=== PATIENT | female | born 1980 | race Caucasian/White ===

== ENCOUNTER 2020-07-21 10:57 | Emergency (ER) | payer OTHER, SELFPAY ==
[2020-07-21 11:17] VITALS: BP 105/61; PULSE 70; RESP 16; TEMP 36.6; O2SAT 99; BMI 21.1
--- NOTE | 2020-07-21 11:51 | ED.MEDCLEAR ---
HPI - Medical Clearance General Chief complaint: Psychiatric Symptoms Stated complaint: MEDICAL CLEARENCE Time Seen by Provider: 07/21/20 11:31 Source: patient Mode of arrival: ambulatory Limitations: no limitations History of Present Illness HPI Narrative: 40-year-old female who is well known to our ED staff presented after she left [facility] residential program yesterday after argument with 1 of the staff, patient had stay in a motel last night in order for the patient to go back to the program she need medical clearance and [facility] in consult. Patient was interviewed by me denies any SI or HI or hallucination. Patient admitted to using heroin/cocaine last night, patient otherwise has no symptoms. Related Information Home Medications Medication Instructions Recorded Confirmed Lactobacillus acidophilus 1 cap PO DAILY 07/21/20 07/21/20 [Acidophilus] bupropion HCl 1 tab PO DAILY 07/21/20 07/21/20 cyanocobalamin (vitamin B-12) 1 tab PO DAILY 07/21/20 07/21/20 diazepam 1 tab PO TID PRN 07/21/20 07/21/20 diclofenac sodium 1 tab PO TID PRN 07/21/20 07/21/20 gabapentin 1 tab PO TID 07/21/20 07/21/20 lamotrigine 1 tab PO DAILY 07/21/20 07/21/20 omeprazole 1 cap PO DAILY 07/21/20 07/21/20 topiramate 1 tab PO DAILY PRN 07/21/20 07/21/20 zolpidem 1 tab PO BEDTIME PRN 07/21/20 07/21/20 Allergies Allergy/AdvReac Type Severity Reaction Status Date / Time azithromycin [AZITHROMYCIN] Allergy Unknown UNK Unverified 06/07/20 15:47 erythromycin base Allergy Unknown RASH Unverified 06/07/20 15:47 [ERYTHROMYCIN BASE] olanzapine [From ZYPREXA] Allergy Unknown PEDAL EDEMA Unverified 06/07/20 15:47 quetiapine [From SEROQUEL] Allergy Unknown THROAT Unverified 06/07/20 15:47 SWELLING risperidone [From RISPERDAL] Allergy Unknown TWITCHING Unverified 06/07/20 15:47 shellfish derived Allergy Unknown VOMITING Unverified 06/07/20 15:47 [SHELLFISH DERIVED] sulfamethoxazole Allergy Unknown ITCHING Unverified 06/07/20 15:47 [From BACTRIM] trimethoprim [From BACTRIM] Allergy Unknown ITCHING Unverified 06/07/20 15:47 arithromiosin Allergy Unknown Uncoded 04/22/19 00:00 gluten Allergy Unknown Uncoded 04/22/19 00:00 sea food Allergy Unknown Uncoded 04/22/19 00:00 Sulfacet-R Allergy Unknown Uncoded 04/22/19 00:00 SEAFOOD AdvReac Unknown VOMIT Uncoded 06/07/20 15:47 Review of Systems Review of Systems: All other systems are reviewed and are negative Constitutional: Reports as per HPI and Reports no additional constitutional complaints Eyes: Reports as per HPI and Reports no additional eye complaints Reports system reviewed and no additional complaints, except as documented Cardiovascular: Reports as per HPI and Reports no additional cardiovascular complaints Respiratory: Reports as per HPI and Reports no additional respiratory complaints Gastrointestinal: Reports as per HPI and Reports no additional gastrointestinal complaints Genitourinary: Reports no additional female genitourinary complaints Musculoskeletal: Reports no additional musculoskeletal complaints Skin/Breast: Reports system reviewed and no additional complaints, except as docu Psychiatric: Reports no additional psychiatric complaints Endocrine: Reports no additional endocrine complaints Hematologic/Lymphatic: Reports no additional hematologic/lymphatic complaints Allergic/Immunologic: Reports no additional allergic/immunologic complaints Reports system reviewed and no additional complaints, except as documented and Reports Abnormal speech present [facility] Social History Social History Alcohol intake: former Smoking Status: Current every day smoker Smoked in Last 30 Days: Yes Use of substances other than those prescribed or required for medical reasons: Yes Substance Use Type: Crack/Cocaine and Heroin Substance Use Frequency: Daily Last Used Substance: Days (ago) Any prior treatment program specific to substance use: Yes Advance Directives: No Advance Directives Information Provided: No Physical Exam Vital Signs: Vital Signs: Vital Signs Temp Pulse Resp BP Pulse Ox 07/21/20 11:17 97.9 F 70 16 105/61 99 Body Mass Index 21.1 vital signs have been reviewed as normal and appeared to be correct. Blood pressure normal. Heart rate normal. Respiration rate normal. Temperature normal. Oxygen saturation normal. Appearance: Alert. Oriented X3. No acute distress. Head: Normal external exam. Normocephalic. Atraumatic. No Kaur signs noted. No raccoon eyes noted Eyes: PERRLA. EOMI. Conjunctiva and sclera normal. Eyelids normal. ENT: EAC normal. TM's Normal. Pharynx normal. Uvula midline. Moist mucous membranes. No trismus noted. No drooling noted. No muffled voice noted. Neck: Normal inspection. Neck supple. FROM. No adenopathy. Thyroid Normal. No meningeal signs. No neck mass noted. CVS: Normal heart rate and rhythm. Heart sound normal. No murmurs noted. Pulses normal throughout. Respiratory: No respiratory distress. Painless inspiration. Breath sounds normal. No wheezes/rales/rhonchi noted. Chest nontender. No accessory muscle usage noted or decreased air movement noted. Abdomen: Soft and nontender. Bowel sounds normal in all 4 quadrants. No distention noted. No organomegaly noted. No visible injury noted. Back: No CVA tenderness. Full range of motion noted. Skin: Skin warm and dry. Normal skin color. Normal skin turgor. No rashes/lesions/lacerations noted. Extremities: No lower extremity edema. Extremities exhibit normal range of motion. Extremities nontender. Neuro: Oriented X 3. No motor deficit. No sensory deficit. Reflexes normal. MDM - Medical Clearance MDM Narrative Medical decision making narrative: assessment and plan. 40-year-old female who needed a medical clearance for [facility] residential program return, patient is medically cleared, U tox showed multiple substance abuse. Lab Data Attestation: I reviewed the patient's lab results. Labs: Lab Results 07/21/20 07/21/20 07/21/20 Range/Units 11:48 11:48 12:00 Urine Color YELLOW Urine Appearance CLEAR Urine pH 6.0 (5.0-8.0) Ur Specific [place] 1.010 (1.005-1.025) Urine Protein NEG (NEG-TRACE) MG/DL Urine Glucose (UA) NEG (NEG) MG/DL Urine Ketones 15 (NEG) MG/DL Urine Blood NEG (NEG) Urine Nitrite NEG (NEG) Ur Leukocyte Esterase NEG (NEG) Urine Opiates Screen POSITIVE H (Not Detect) Ur Barbiturates Screen Not Detected (Not Detect) Ur Phencyclidine Scrn POSITIVE H (Not Detect) Ur Amphetamines Screen Not Detected (Not Detect) U Benzodiazepines Scrn POSITIVE H (Not Detect) Urine Cocaine Screen POSITIVE H (Not Detect) U Marijuana (THC) Screen Not Detected (Not Detect) Coronavirus (PCR) NEGATIVE (Negative) Discharge Plan Discharge Prescriptions: No Action cyanocobalamin (vitamin B-12) 1,000 mcg tablet 1 tab PO DAILY RF: 0 gabapentin 800 mg tablet 1 tab PO TID RF: 0 omeprazole 20 mg capsule,delayed release(DR/EC) 1 cap PO DAILY RF: 0 diclofenac sodium 50 mg tablet,delayed release (DR/EC) 1 tab PO TID PRN (Reason: Pain) RF: 0 zolpidem 5 mg tablet 1 tab PO BEDTIME PRN (Reason: Insomnia) RF: 0 Lactobacillus acidophilus [Acidophilus] Capsule 1 cap PO DAILY RF: 0 topiramate 100 mg tablet 1 tab PO DAILY PRN (Reason: Insomnia) RF: 0 lamotrigine 100 mg tablet 1 tab PO DAILY RF: 0 diazepam 5 mg tablet 1 tab PO TID PRN (Reason: Anxiety) RF: 0 bupropion HCl 300 mg tablet extended release 24 hr 1 tab PO DAILY RF: 0
[2020-07-21 12:01] LABS: Glucose Urine UA NEG (NEG); Leukocyte Esterase Urine NEG (NEG); Nitrite Urine NEG (NEG); Urine Blood NEG (NEG); Urine Ketones 15 MG/DL (NEG); Urine Protein NEG (NEG-TRACE)
[2020-07-21 12:02] LABS: Appearance Urine CLEAR; Color Urine YELLOW
--- NOTE | 2020-07-21 12:11 | PC.NURSE ---
JEREMY faxed and called, verified with Diana
[2020-07-21 12:21] LABS: Amphetamine Screen Urine Not Detected (Not Detect); Barbiturates, Urine Not Detected (Not Detect); Benzodiazepines Screen Urine POSITIVE (Not Detect); Cannabinoid Screen Urine Not Detected (Not Detect); Cocaine Screen Urine POSITIVE (Not Detect); Opiate Screen Urine POSITIVE (Not Detect); Phencyclidine Screen Urine POSITIVE (Not Detect)
[2020-07-21 13:03] LABS: SARS COV2 PCR INHOUSE NEGATIVE (Negative)
--- NOTE | 2020-07-21 13:48 | PC.NURSE ---
Terri in to speak with PT. PT became agitated, yelling and swearing at [facility] clinician. Pt redirected. [facility] to send a different clinician.
== END 2020-07-21 16:15 | disposition home or self-care (01) ==
PROVIDERS: Emergency Provider Emergency Medicine
DX: Z02.2 Encounter for examination for admission to residential institution (principal); F17.200 Nicotine dependence, unspecified, uncomplicated; F11.90 Opioid use, unspecified, uncomplicated; F14.90 Cocaine use, unspecified, uncomplicated; Z79.899 Other long term (current) drug therapy; Z71.6 Tobacco abuse counseling; Z11.59 Encounter for screening for other viral diseases
CPT/HCPCS: 80307; 81003; 99285; U0003

== ENCOUNTER 2020-08-23 11:31 | Emergency (ER) | payer OTHER, SELFPAY ==
[2020-08-23 12:08] VITALS: BP 115/87; PULSE 71; RESP 18; TEMP 36.3; O2SAT 98; BMI 25.7
--- NOTE | 2020-08-23 12:15 | US_ITS ---
EXAMINATION: US UPPER EXTREMITY VENOUS, RIGHT CLINICAL INFORMATION: IV site infiltrated with induration distal forearm. COMPARISON: None. TECHNIQUE: Doppler spectral analysis and color flow Doppler imaging was performed of the right upper extremity. Compression and augmentation maneuvers were performed. FINDINGS: The cephalic vein is not identified. The remainder of the superficial and deep veins of the right upper extremity are identified and are compressible without abnormal filling defect and with normal Doppler response to augmentation and compression maneuvers. US/US venous duplex UE RT IMPRESSION: No evidence for acute right upper extremity deep vein thrombosis.
[2020-08-23 12:20] VITALS: BP 115/87; PULSE 71; RESP 18; TEMP 36.3; O2SAT 98
--- NOTE | 2020-08-23 12:28 | ED.PSYCH ---
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 Urine Glucose (UA) (NEG) MG/DL Urine Ketones (NEG) MG/DL Urine Blood (NEG) Urine Nitrite (NEG) Ur Leukocyte Esterase (NEG) Urine Opiates Screen POSITIVE H (Not Detect) Ur Barbiturates Screen Not Detected (Not Detect) Ur Phencyclidine Scrn POSITIVE H (Not Detect) Ur Amphetamines Screen Not Detected (Not Detect) U Benzodiazepines Scrn POSITIVE H (Not Detect) Urine Cocaine Screen POSITIVE H (Not Detect) U Marijuana (THC) Screen Not Detected (Not Detect) Ethyl Alcohol mg/dL <ALISON Garcia - Last Filed: 08/24/20 01:40> Lab Results 08/23/20 08/23/20 08/23/20 Range/Units 13:26 13:26 13:26 WBC 3.7 L (4.8-10.8) X10*3/uL RBC 3.92 L (4.20-5.50) X10*6/uL Hgb 12.0 (12.0-16.0) g/dl Hct 35.4 L (37-47) % MCV 90.3 (80-98) fL MCH 30.6 (27.0-33.0) pg MCHC 33.9 (31.0-35.0) g/dl RDW 12.9 (11.0-16.0) % Plt Count 176 (160-400) X10*3/uL MPV 9.3 L (9.4-12.3) fL Immature Gran % (Auto) 0.0 (0.0-0.4) % Neut % (Auto) 39.2 L (45-73) % Lymph % (Auto) 48.5 H (20-40) % [place] % (Auto) 8.2 (2-11) % Eos % (Auto) 3.6 (0-4) % Baso % (Auto) 0.5 (0-2) % Lymph # (Auto) 1.8 (1.2-4.9) X10*3/uL [place] # (Auto) 0.3 (0.1-1.2) X10*3/uL Eos # (Auto) 0.1 (0.0-0.4) X10*3/uL Baso # (Auto) 0.0 (0.0-0.2) X10*3/uL Abs Immat Gran (auto) 0.00 (0.00-0.03) X10*3/uL Absolute Neuts (auto) 1.4 L (2.0-8.3) X10*3/uL Absolute Nucleated RBC 0.000 (0.0-0.012) X10*3/uL Nucleated RBC % (auto) 0.0 (0.0-0.2) /100WBC PT 13.0 (10.8-13.0) SEC INR 1.1 (0.9-1.1) APTT 45.8 H (24.1-38.0) SEC Sodium (135-145) mmol/L Potassium (3.3-5.1) mmol/l Chloride (96-108) mmol/L Carbon Dioxide (22-29) mmol/L Anion Gap (12-20) BUN (9-16) mg/dL Creatinine (0.5-1.4) mg/dL Estim Creat Clear Calc Estimated GFR Random Glucose (60-115) mg/dL Lactic Acid (0.5-2.0) mmol/L Calcium (8.4-10.2) mg/dL Magnesium (1.6-2.6) mg/dL Total Bilirubin (0.0-1.0) mg/dL Direct Bilirubin (0.0-0.5) mg/dL AST (5-31) U/L ALT (0-31) U/L Alkaline Phosphatase (39-117) U/L Total Creatine Kinase (26-140) U/L B-Natriuretic Peptide (<100) pg/mL Total Protein (6.5-8.0) g/dL Albumin (3.5-5.0) g/dL Lipase 13 (8-78) U/L Urine Color Urine Appearance Urine pH (5.0-8.0) Ur Specific [place] (1.005-1.025) Urine Protein (NEG-TRACE) MG/DL Urine Glucose (UA) (NEG) MG/DL Urine Ketones (NEG) MG/DL Urine Blood (NEG) Urine Nitrite (NEG) Ur Leukocyte Esterase (NEG) Urine Opiates Screen (Not Detect) Ur Barbiturates Screen (Not Detect) Ur Phencyclidine Scrn (Not Detect) Ur Amphetamines Screen (Not Detect) U Benzodiazepines Scrn (Not Detect) Urine Cocaine Screen (Not Detect) U Marijuana (THC) Screen (Not Detect) Ethyl Alcohol mg/dL 08/23/20 08/23/20 08/23/20 Range/Units 13:26 13:26 13:27 WBC (4.8-10.8) X10*3/uL RBC (4.20-5.50) X10*6/uL Hgb (12.0-16.0) g/dl Hct (37-47) % MCV (80-98) fL MCH (27.0-33.0) pg MCHC (31.0-35.0) g/dl RDW (11.0-16.0) % Plt Count (160-400) X10*3/uL MPV (9.4-12.3) fL Immature Gran % (Auto) (0.0-0.4) % Neut % (Auto) (45-73) % Lymph % (Auto) (20-40) % [place] % (Auto) (2-11) % Eos % (Auto) (0-4) % Baso % (Auto) (0-2) % Lymph # (Auto) (1.2-4.9) X10*3/uL [place] # (Auto) (0.1-1.2) X10*3/uL Eos # (Auto) (0.0-0.4) X10*3/uL Baso # (Auto) (0.0-0.2) X10*3/uL Abs Immat Gran (auto) (0.00-0.03) X10*3/uL Absolute Neuts (auto) (2.0-8.3) X10*3/uL Absolute Nucleated RBC (0.0-0.012) X10*3/uL Nucleated RBC % (auto) (0.0-0.2) /100WBC PT (10.8-13.0) SEC INR (0.9-1.1) APTT (24.1-38.0) SEC Sodium 140 (135-145) mmol/L Potassium 3.2 L (3.3-5.1) mmol/l Chloride 101 (96-108) mmol/L Carbon Dioxide 31 H (22-29) mmol/L Anion Gap 11 L (12-20) BUN 8 L (9-16) mg/dL Creatinine 0.74 (0.5-1.4) mg/dL Estim Creat Clear Calc 93.8 Estimated GFR > 60 Random Glucose 114 (60-115) mg/dL Lactic Acid (0.5-2.0) mmol/L Calcium 8.8 (8.4-10.2) mg/dL Magnesium 2.1 (1.6-2.6) mg/dL Total Bilirubin 0.7 (0.0-1.0) mg/dL Direct Bilirubin 0.4 (0.0-0.5) mg/dL AST 50 H (5-31) U/L ALT 47 H (0-31) U/L Alkaline Phosphatase 102 (39-117) U/L Total Creatine Kinase 473 H (26-140) U/L B-Natriuretic Peptide 25 (<100) pg/mL Total Protein 6.9 (6.5-8.0) g/dL Albumin 4.1 (3.5-5.0) g/dL Lipase (8-78) U/L Urine Color Urine Appearance Urine pH (5.0-8.0) Ur Specific [place] (1.005-1.025) Urine Protein (NEG-TRACE) MG/DL Urine Glucose (UA) (NEG) MG/DL Urine Ketones (NEG) MG/DL Urine Blood (NEG) Urine Nitrite (NEG) Ur Leukocyte Esterase (NEG) Urine Opiates Screen (Not Detect) Ur Barbiturates Screen (Not Detect) Ur Phencyclidine Scrn (Not Detect) Ur Amphetamines Screen (Not Detect) U Benzodiazepines Scrn (Not Detect) Urine Cocaine Screen (Not Detect) U Marijuana (THC) Screen (Not Detect) Ethyl Alcohol mg/dL 08/23/20 08/23/20 08/23/20 Range/Units 13:27 13:30 Unknown WBC (4.8-10.8) X10*3/uL RBC (4.20-5.50) X10*6/uL Hgb (12.0-16.0) g/dl Hct (37-47) % MCV (80-98) fL MCH (27.0-33.0) pg MCHC (31.0-35.0) g/dl RDW (11.0-16.0) % Plt Count (160-400) X10*3/uL MPV (9.4-12.3) fL Immature Gran % (Auto) (0.0-0.4) % Neut % (Auto) (45-73) % Lymph % (Auto) (20-40) % [place] % (Auto) (2-11) % Eos % (Auto) (0-4) % Baso % (Auto) (0-2) % Lymph # (Auto) (1.2-4.9) X10*3/uL [place] # (Auto) (0.1-1.2) X10*3/uL Eos # (Auto) (0.0-0.4) X10*3/uL Baso # (Auto) (0.0-0.2) X10*3/uL Abs Immat Gran (auto) (0.00-0.03) X10*3/uL Absolute Neuts (auto) (2.0-8.3) X10*3/uL Absolute Nucleated RBC (0.0-0.012) X10*3/uL Nucleated RBC % (auto) (0.0-0.2) /100WBC PT (10.8-13.0) SEC INR (0.9-1.1) APTT (24.1-38.0) SEC Sodium (135-145) mmol/L Potassium (3.3-5.1) mmol/l Chloride (96-108) mmol/L Carbon Dioxide (22-29) mmol/L Anion Gap (12-20) BUN (9-16) mg/dL Creatinine (0.5-1.4) mg/dL Estim Creat Clear Calc Estimated GFR Random Glucose (60-115) mg/dL Lactic Acid 0.8 (0.5-2.0) mmol/L Calcium (8.4-10.2) mg/dL Magnesium (1.6-2.6) mg/dL Total Bilirubin (0.0-1.0) mg/dL Direct Bilirubin (0.0-0.5) mg/dL AST (5-31) U/L ALT (0-31) U/L Alkaline Phosphatase (39-117) U/L Total Creatine Kinase (26-140) U/L B-Natriuretic Peptide (<100) pg/mL Total Protein (6.5-8.0) g/dL Albumin (3.5-5.0) g/dL Lipase (8-78) U/L Urine Color YELLOW Urine Appearance CLEAR Urine pH 6.0 (5.0-8.0) Ur Specific [place] 1.015 (1.005-1.025) Urine Protein NEG (NEG-TRACE) MG/DL Urine Glucose (UA) NEG (NEG) MG/DL Urine Ketones NEG (NEG) MG/DL Urine Blood NEG (NEG) Urine Nitrite NEG (NEG) Ur Leukocyte Esterase NEG (NEG) Urine Opiates Screen (Not Detect) Ur Barbiturates Screen (Not Detect) Ur Phencyclidine Scrn (Not Detect) Ur Amphetamines Screen (Not Detect) U Benzodiazepines Scrn (Not Detect) Urine Cocaine Screen (Not Detect) U Marijuana (THC) Screen (Not Detect) Ethyl Alcohol < 10 mg/dL 08/23/20 Range/Units Unknown WBC (4.8-10.8) X10*3/uL RBC (4.20-5.50) X10*6/uL Hgb (12.0-16.0) g/dl Hct (37-47) % MCV (80-98) fL MCH (27.0-33.0) pg MCHC (31.0-35.0) g/dl RDW (11.0-16.0) % Plt Count (160-400) X10*3/uL MPV (9.4-12.3) fL Immature Gran % (Auto) (0.0-0.4) % Neut % (Auto) (45-73) % Lymph % (Auto) (20-40) % [place] % (Auto) (2-11) % Eos % (Auto) (0-4) % Baso % (Auto) (0-2) % Lymph # (Auto) (1.2-4.9) X10*3/uL [place] # (Auto) (0.1-1.2) X10*3/uL Eos # (Auto) (0.0-0.4) X10*3/uL Baso # (Auto) (0.0-0.2) X10*3/uL Abs Immat Gran (auto) (0.00-0.03) X10*3/uL Absolute Neuts (auto) (2.0-8.3) X10*3/uL Absolute Nucleated RBC (0.0-0.012) X10*3/uL Nucleated RBC % (auto) (0.0-0.2) /100WBC PT (10.8-13.0) SEC INR (0.9-1.1) APTT (24.1-38.0) SEC Sodium (135-145) mmol/L Potassium (3.3-5.1) mmol/l Chloride (96-108) mmol/L Carbon Dioxide (22-29) mmol/L Anion Gap (12-20) BUN (9-16) mg/dL Creatinine (0.5-1.4) mg/dL Estim Creat Clear Calc Estimated GFR Random Glucose (60-115) mg/dL Lactic Acid (0.5-2.0) mmol/L Calcium (8.4-10.2) mg/dL Magnesium (1.6-2.6) mg/dL Total Bilirubin (0.0-1.0) mg/dL Direct Bilirubin (0.0-0.5) mg/dL AST (5-31) U/L ALT (0-31) U/L Alkaline Phosphatase (39-117) U/L Total Creatine Kinase (26-140) U/L B-Natriuretic Peptide (<100) pg/mL Total Protein (6.5-8.0) g/dL Albumin (3.5-5.0) g/dL Lipase (8-78) U/L Urine Color Urine Appearance Urine pH (5.0-8.0) Ur Specific [place] (1.005-1.025) Urine Protein (NEG-TRACE) MG/DL Urine Glucose (UA) (NEG) MG/DL Urine Ketones (NEG) MG/DL Urine Blood (NEG) Urine Nitrite (NEG) Ur Leukocyte Esterase (NEG) Urine Opiates Screen POSITIVE H (Not Detect) Ur Barbiturates Screen Not Detected (Not Detect) Ur Phencyclidine Scrn POSITIVE H (Not Detect) Ur Amphetamines Screen Not Detected (Not Detect) U Benzodiazepines Scrn POSITIVE H (Not Detect) Urine Cocaine Screen POSITIVE H (Not Detect) U Marijuana (THC) Screen Not Detected (Not Detect) Ethyl Alcohol mg/dL <Tyler Sifuentes NP - Last Filed: 08/24/20 17:35> Lab Results 08/23/20 08/23/20 08/23/20 Range/Units 13:26 13:26 13:26 WBC 3.7 L (4.8-10.8) X10*3/uL RBC 3.92 L (4.20-5.50) X10*6/uL Hgb 12.0 (12.0-16.0) g/dl Hct 35.4 L (37-47) % MCV 90.3 (80-98) fL MCH 30.6 (27.0-33.0) pg MCHC 33.9 (31.0-35.0) g/dl RDW 12.9 (11.0-16.0) % Plt Count 176 (160-400) X10*3/uL MPV 9.3 L (9.4-12.3) fL Immature Gran % (Auto) 0.0 (0.0-0.4) % Neut % (Auto) 39.2 L (45-73) % Lymph % (Auto) 48.5 H (20-40) % [place] % (Auto) 8.2 (2-11) % Eos % (Auto) 3.6 (0-4) % Baso % (Auto) 0.5 (0-2) % Lymph # (Auto) 1.8 (1.2-4.9) X10*3/uL [place] # (Auto) 0.3 (0.1-1.2) X10*3/uL Eos # (Auto) 0.1 (0.0-0.4) X10*3/uL Baso # (Auto) 0.0 (0.0-0.2) X10*3/uL Abs Immat Gran (auto) 0.00 (0.00-0.03) X10*3/uL Absolute Neuts (auto) 1.4 L (2.0-8.3) X10*3/uL Absolute Nucleated RBC 0.000 (0.0-0.012) X10*3/uL Nucleated RBC % (auto) 0.0 (0.0-0.2) /100WBC PT 13.0 (10.8-13.0) SEC INR 1.1 (0.9-1.1) APTT 45.8 H (24.1-38.0) SEC Sodium (135-145) mmol/L Potassium (3.3-5.1) mmol/l Chloride (96-108) mmol/L Carbon Dioxide (22-29) mmol/L Anion Gap (12-20) BUN (9-16) mg/dL Creatinine (0.5-1.4) mg/dL Estim Creat Clear Calc Estimated GFR Random Glucose (60-115) mg/dL Lactic Acid (0.5-2.0) mmol/L Calcium (8.4-10.2) mg/dL Magnesium (1.6-2.6) mg/dL Total Bilirubin (0.0-1.0) mg/dL Direct Bilirubin (0.0-0.5) mg/dL AST (5-31) U/L ALT (0-31) U/L Alkaline Phosphatase (39-117) U/L Total Creatine Kinase (26-140) U/L B-Natriuretic Peptide (<100) pg/mL Total Protein (6.5-8.0) g/dL Albumin (3.5-5.0) g/dL Lipase 13 (8-78) U/L Urine Color Urine Appearance Urine pH (5.0-8.0) Ur Specific [place] (1.005-1.025) Urine Protein (NEG-TRACE) MG/DL Urine Glucose (UA) (NEG) MG/DL Urine Ketones (NEG) MG/DL Urine Blood (NEG) Urine Nitrite (NEG) Ur Leukocyte Esterase (NEG) Urine Opiates Screen (Not Detect) Ur Barbiturates Screen (Not Detect) Ur Phencyclidine Scrn (Not Detect) Ur Amphetamines Screen (Not Detect) U Benzodiazepines Scrn (Not Detect) Urine Cocaine Screen (Not Detect) U Marijuana (THC) Screen (Not Detect) Ethyl Alcohol mg/dL 08/23/20 08/23/20 08/23/20 Range/Units 13:26 13:26 13:27 WBC (4.8-10.8) X10*3/uL RBC (4.20-5.50) X10*6/uL Hgb (12.0-16.0) g/dl Hct (37-47) % MCV (80-98) fL MCH (27.0-33.0) pg MCHC (31.0-35.0) g/dl RDW (11.0-16.0) % Plt Count (160-400) X10*3/uL MPV (9.4-12.3) fL Immature Gran % (Auto) (0.0-0.4) % Neut % (Auto) (45-73) % Lymph % (Auto) (20-40) % [place] % (Auto) (2-11) % Eos % (Auto) (0-4) % Baso % (Auto) (0-2) % Lymph # (Auto) (1.2-4.9) X10*3/uL [place] # (Auto) (0.1-1.2) X10*3/uL Eos # (Auto) (0.0-0.4) X10*3/uL Baso # (Auto) (0.0-0.2) X10*3/uL Abs Immat Gran (auto) (0.00-0.03) X10*3/uL Absolute Neuts (auto) (2.0-8.3) X10*3/uL Absolute Nucleated RBC (0.0-0.012) X10*3/uL Nucleated RBC % (auto) (0.0-0.2) /100WBC PT (10.8-13.0) SEC INR (0.9-1.1) APTT (24.1-38.0) SEC Sodium 140 (135-145) mmol/L Potassium 3.2 L (3.3-5.1) mmol/l Chloride 101 (96-108) mmol/L Carbon Dioxide 31 H (22-29) mmol/L Anion Gap 11 L (12-20) BUN 8 L (9-16) mg/dL Creatinine 0.74 (0.5-1.4) mg/dL Estim Creat Clear Calc 93.8 Estimated GFR > 60 Random Glucose 114 (60-115) mg/dL Lactic Acid (0.5-2.0) mmol/L Calcium 8.8 (8.4-10.2) mg/dL Magnesium 2.1 (1.6-2.6) mg/dL Total Bilirubin 0.7 (0.0-1.0) mg/dL Direct Bilirubin 0.4 (0.0-0.5) mg/dL AST 50 H (5-31) U/L ALT 47 H (0-31) U/L Alkaline Phosphatase 102 (39-117) U/L Total Creatine Kinase 473 H (26-140) U/L B-Natriuretic Peptide 25 (<100) pg/mL Total Protein 6.9 (6.5-8.0) g/dL Albumin 4.1 (3.5-5.0) g/dL Lipase (8-78) U/L Urine Color Urine Appearance Urine pH (5.0-8.0) Ur Specific [place] (1.005-1.025) Urine Protein (NEG-TRACE) MG/DL Urine Glucose (UA) (NEG) MG/DL Urine Ketones (NEG) MG/DL Urine Blood (NEG) Urine Nitrite (NEG) Ur Leukocyte Esterase (NEG) Urine Opiates Screen (Not Detect) Ur Barbiturates Screen (Not Detect) Ur Phencyclidine Scrn (Not Detect) Ur Amphetamines Screen (Not Detect) U Benzodiazepines Scrn (Not Detect) Urine Cocaine Screen (Not Detect) U Marijuana (THC) Screen (Not Detect) Ethyl Alcohol mg/dL 08/23/20 08/23/20 08/23/20 Range/Units 13:27 13:30 Unknown WBC (4.8-10.8) X10*3/uL RBC (4.20-5.50) X10*6/uL Hgb (12.0-16.0) g/dl Hct (37-47) % MCV (80-98) fL MCH (27.0-33.0) pg MCHC (31.0-35.0) g/dl RDW (11.0-16.0) % Plt Count (160-400) X10*3/uL MPV (9.4-12.3) fL Immature Gran % (Auto) (0.0-0.4) % Neut % (Auto) (45-73) % Lymph % (Auto) (20-40) % [place] % (Auto) (2-11) % Eos % (Auto) (0-4) % Baso % (Auto) (0-2) % Lymph # (Auto) (1.2-4.9) X10*3/uL [place] # (Auto) (0.1-1.2) X10*3/uL Eos # (Auto) (0.0-0.4) X10*3/uL Baso # (Auto) (0.0-0.2) X10*3/uL Abs Immat Gran (auto) (0.00-0.03) X10*3/uL Absolute Neuts (auto) (2.0-8.3) X10*3/uL Absolute Nucleated RBC (0.0-0.012) X10*3/uL Nucleated RBC % (auto) (0.0-0.2) /100WBC PT (10.8-13.0) SEC INR (0.9-1.1) APTT (24.1-38.0) SEC Sodium (135-145) mmol/L Potassium (3.3-5.1) mmol/l Chloride (96-108) mmol/L Carbon Dioxide (22-29) mmol/L Anion Gap (12-20) BUN (9-16) mg/dL Creatinine (0.5-1.4) mg/dL Estim Creat Clear Calc Estimated GFR Random Glucose (60-115) mg/dL Lactic Acid 0.8 (0.5-2.0) mmol/L Calcium (8.4-10.2) mg/dL Magnesium (1.6-2.6) mg/dL Total Bilirubin (0.0-1.0) mg/dL Direct Bilirubin (0.0-0.5) mg/dL AST (5-31) U/L ALT (0-31) U/L Alkaline Phosphatase (39-117) U/L Total Creatine Kinase (26-140) U/L B-Natriuretic Peptide (<100) pg/mL Total Protein (6.5-8.0) g/dL Albumin (3.5-5.0) g/dL Lipase (8-78) U/L Urine Color YELLOW Urine Appearance CLEAR Urine pH 6.0 (5.0-8.0) Ur Specific [place] 1.015 (1.005-1.025) Urine Protein NEG (NEG-TRACE) MG/DL Urine Glucose (UA) NEG (NEG) MG/DL Urine Ketones NEG (NEG) MG/DL Urine Blood NEG (NEG) Urine Nitrite NEG (NEG) Ur Leukocyte Esterase NEG (NEG) Urine Opiates Screen (Not Detect) Ur Barbiturates Screen (Not Detect) Ur Phencyclidine Scrn (Not Detect) Ur Amphetamines Screen (Not Detect) U Benzodiazepines Scrn (Not Detect) Urine Cocaine Screen (Not Detect) U Marijuana (THC) Screen (Not Detect) Ethyl Alcohol < 10 mg/dL 08/23/20 Range/Units Unknown WBC (4.8-10.8) X10*3/uL RBC (4.20-5.50) X10*6/uL Hgb (12.0-16.0) g/dl Hct (37-47) % MCV (80-98) fL MCH (27.0-33.0) pg MCHC (31.0-35.0) g/dl RDW (11.0-16.0) % Plt Count (160-400) X10*3/uL MPV (9.4-12.3) fL Immature Gran % (Auto) (0.0-0.4) % Neut % (Auto) (45-73) % Lymph % (Auto) (20-40) % [place] % (Auto) (2-11) % Eos % (Auto) (0-4) % Baso % (Auto) (0-2) % Lymph # (Auto) (1.2-4.9) X10*3/uL [place] # (Auto) (0.1-1.2) X10*3/uL Eos # (Auto) (0.0-0.4) X10*3/uL Baso # (Auto) (0.0-0.2) X10*3/uL Abs Immat Gran (auto) (0.00-0.03) X10*3/uL Absolute Neuts (auto) (2.0-8.3) X10*3/uL Absolute Nucleated RBC (0.0-0.012) X10*3/uL Nucleated RBC % (auto) (0.0-0.2) /100WBC PT (10.8-13.0) SEC INR (0.9-1.1) APTT (24.1-38.0) SEC Sodium (135-145) mmol/L Potassium (3.3-5.1) mmol/l Chloride (96-108) mmol/L Carbon Dioxide (22-29) mmol/L Anion Gap (12-20) BUN (9-16) mg/dL Creatinine (0.5-1.4) mg/dL Estim Creat Clear Calc Estimated GFR Random Glucose (60-115) mg/dL Lactic Acid (0.5-2.0) mmol/L Calcium (8.4-10.2) mg/dL Magnesium (1.6-2.6) mg/dL Total Bilirubin (0.0-1.0) mg/dL Direct Bilirubin (0.0-0.5) mg/dL AST (5-31) U/L ALT (0-31) U/L Alkaline Phosphatase (39-117) U/L Total Creatine Kinase (26-140) U/L B-Natriuretic Peptide (<100) pg/mL Total Protein (6.5-8.0) g/dL Albumin (3.5-5.0) g/dL Lipase (8-78) U/L Urine Color Urine Appearance Urine pH (5.0-8.0) Ur Specific [place] (1.005-1.025) Urine Protein (NEG-TRACE) MG/DL Urine Glucose (UA) (NEG) MG/DL Urine Ketones (NEG) MG/DL Urine Blood (NEG) Urine Nitrite (NEG) Ur Leukocyte Esterase (NEG) Urine Opiates Screen POSITIVE H (Not Detect) Ur Barbiturates Screen Not Detected (Not Detect) Ur Phencyclidine Scrn POSITIVE H (Not Detect) Ur Amphetamines Screen Not Detected (Not Detect) U Benzodiazepines Scrn POSITIVE H (Not Detect) Urine Cocaine Screen POSITIVE H (Not Detect) U Marijuana (THC) Screen Not Detected (Not Detect) Ethyl Alcohol mg/dL <Tulio Silverman MD - Last Filed: 09/14/20 09:42> Discharge Plan Discharge Clinical Impression: Substance abuse, Abscess, Depression <ALISON Barnes - Last Filed: 08/24/20 09:59> Patient Disposition: Home, Self-Care <ALISON Barnes - Last Filed: 08/24/20 09:59> Instructions: Depression (ED), Abscess (ED) <ALISON Barnes - Last Filed: 08/24/20 09:59> Additional Instructions: take antibiotic as advised Follow up with detox at [facility] medically cleared <ALISON Barnes - Last Filed: 08/24/20 09:59> Prescriptions: New doxycycline hyclate 100 mg capsule 100 mg PO BID Qty: 20 RF: 0 cephalexin [Keflex] 500 mg capsule 500 mg PO QID 10 Days Qty: 40 RF: 0 No Action cyanocobalamin (vitamin B-12) 1,000 mcg tablet 1 tab PO DAILY RF: 0 gabapentin 800 mg tablet 1 tab PO TID RF: 0 omeprazole 20 mg capsule,delayed release(DR/EC) 1 cap PO DAILY RF: 0 Lactobacillus acidophilus [Acidophilus] Capsule 1 cap PO DAILY RF: 0 topiramate 100 mg tablet 1 tab PO DAILY PRN (Reason: Insomnia) RF: 0 lamotrigine 100 mg tablet 1 tab PO DAILY RF: 0 trazodone 50 mg tablet 1 tab PO BEDTIME RF: 0 divalproex 500 mg tablet extended release 24 hr 500 mg PO TID RF: 0 albuterol sulfate 90 mcg/actuation HFA aerosol inhaler 1 - 2 puff PO Q4H PRN (Reason: wheezing) RF: 0 clonazepam 1 mg tablet 1 tab PO BID RF: 0 ferrous sulfate 325 mg (65 mg iron) tablet 1 tab PO BID RF: 0 buspirone 10 mg tablet 10 mg PO TID PRN (Reason: Anxiety) RF: 0 nicotine 7 mg/24 hr patch 24 hour 1 patch transdermal DAILY RF: 0 propranolol 20 mg tablet 1 tab PO TID PRN (Reason: Anxiety) RF: 0 <ALISON Barnes - Last Filed: 08/24/20 09:59> Interventions: ED Discharge Assessment Last Done: 08/25/20 07:38 <ALISON Barnes - Last Filed: 08/24/20 09:59> Discharge Date/Time: 08/25/20 07:43 <ALISON Barnes - Last Filed: 08/24/20 09:59>
--- NOTE | 2020-08-23 12:31 | PC.NURSE ---
[facility] [place] worker [facility] [phone]
--- NOTE | 2020-08-23 12:32 | PC.NURSE ---
Report given to Cheikh RN, pt to move to main ED
[2020-08-23 13:34] LABS: MANUAL DIFF FLAG NO
[2020-08-23 13:35] LABS: Basophils Percent Auto 0.5 % (0-2); Eosinophils Absolute Auto 0.1 X10*3/uL (0.0-0.4); Eosinophils Percent Auto 3.6 % (0-4); Hematocrit 35.4 % (37-47); Lymphocytes Absolute Auto 1.8 X10*3/uL (1.2-4.9); Lymphocytes Percent Auto 48.5 % (20-40); Mean Corpuscular HGB Conc 33.9 g/dl (31.0-35.0); Mean Corpuscular Hemoglobin 30.6 pg (27.0-33.0); Mean Corpuscular Volume 90.3 fL (80-98); Mean Platelet Volume 9.3 fL (9.4-12.3); Monocytes Absolute Auto 0.3 X10*3/uL (0.1-1.2); Monocytes Percent Auto 8.2 % (2-11); Neutrophils Absolute Auto 1.4 X10*3/uL (2.0-8.3); Neutrophils Percent Auto 39.2 % (45-73); Platelet Count 176 X10*3/uL (160-400); Red Blood Count 3.92 X10*6/uL (4.20-5.50); Red Cell Distribution Width 12.9 % (11.0-16.0); White Blood Count 3.7 X10*3/uL (4.8-10.8)
[2020-08-23 13:39] LABS: Glucose Urine UA NEG (NEG); Leukocyte Esterase Urine NEG (NEG); Nitrite Urine NEG (NEG); Specific Gravity - Urine 1.015 (1.005-1.025); Urine Blood NEG (NEG); Urine Ketones NEG (NEG); Urine Protein NEG (NEG-TRACE)
[2020-08-23 13:41] LABS: Appearance Urine CLEAR; Color Urine YELLOW
[2020-08-23 13:43] LABS: INTERNATIONAL NORM RATIO 1.1 (0.9-1.1)
[2020-08-23 13:46] LABS: Partial Thromboplastin Time 45.8 SEC (24.1-38.0)
[2020-08-23 13:53] LABS: Lactic Acid 0.8 mmol/L (0.5-2.0)
[2020-08-23 13:54] LABS: Ethanol < 10 mg/dL
[2020-08-23 13:58] VITALS: BP 96/61; PULSE 62; RESP 16; TEMP 36.6; O2SAT 96
[2020-08-23 14:00] LABS: Alanine Aminotransferase 47 U/L (0-31); Albumin Level 4.1 g/dL (3.5-5.0); Alkaline Phosphatase 102 U/L (39-117); Anion Gap 11 (12-20); Aspartate Amino Transferase 50 U/L (5-31); Bilirubin Direct 0.4 mg/dL (0.0-0.5); Bilirubin Total 0.7 mg/dL (0.0-1.0); Blood Urea Nitrogen 8 mg/dL (9-16); Calcium 8.8 mg/dL (8.4-10.2); Carbon Dioxide 31 mmol/L (22-29); Chloride 101 mmol/L (96-108); Creatinine Clr Calc Pharmacy 93.8; Estimated Glomerular Filt Rate > 60; Glucose Random 114 mg/dL (60-115); Magnesium 2.1 mg/dL (1.6-2.6); Potassium 3.2 mmol/l (3.3-5.1); Sodium 140 mmol/L (135-145); Total Protein 6.9 g/dL (6.5-8.0)
[2020-08-23 14:00] LABS: B Type Natriuretic Peptide 25 pg/mL (<100)
[2020-08-23 14:02] LABS: Lipase 13 U/L (8-78)
[2020-08-23 14:39] LABS: Amphetamine Screen Urine Not Detected (Not Detect); Barbiturates, Urine Not Detected (Not Detect); Benzodiazepines Screen Urine POSITIVE (Not Detect); Cannabinoid Screen Urine Not Detected (Not Detect); Cocaine Screen Urine POSITIVE (Not Detect); Opiate Screen Urine POSITIVE (Not Detect); Phencyclidine Screen Urine POSITIVE (Not Detect)
[2020-08-23 14:46] VITALS: BP 106/60; PULSE 58; RESP 16; O2SAT 99
[2020-08-23] MEDS: 0.9 % Sodium Chloride 1,000 ML 999 ML IVCONT ×2 (16:50)
[2020-08-23 18:44] VITALS: BP 106/61; PULSE 58; RESP 15; TEMP 36.6; O2SAT 96
[2020-08-23 20:52] VITALS: BP 112/65; PULSE 60; RESP 16; O2SAT 96
[2020-08-24] MEDS: Potassium Chloride Packet 20 MEQ PACKET 40 MEQ PO (02:39)
[2020-08-24 06:43] VITALS: BP 101/50; PULSE 73; RESP 18; TEMP 37.1; O2SAT 95
--- NOTE | 2020-08-24 07:15 | PC.NURSE ---
pt is sleeping resp even/unlabored.
[2020-08-24 08:00] VITALS: RESP 16
--- NOTE | 2020-08-24 08:04 | PC.NURSE ---
geoff philip) at bedside, pt aware of plan of care.
[2020-08-24 10:00] VITALS: BP 101/51; PULSE 66; RESP 18; TEMP 36.8; O2SAT 95
--- NOTE | 2020-08-24 10:00 | PC.NURSE ---
pt refused breakfast, sleeping. resp even and unlabored.
--- NOTE | 2020-08-24 10:54 | PC.NURSE ---
pt is refusing to meet with n stating that she is tired and falls back to sleep.
--- NOTE | 2020-08-24 11:15 | PC.NURSE ---
multi attempts made by geoff (enid) and bryanna (care team) to get pt up so that she can have a conversation with [facility] and pt has refused and falls back to sleep.
--- NOTE | 2020-08-24 13:25 | PC.NURSE ---
multi request to view pt's abscess met without any success. pt returned to sleep.
[2020-08-24 13:26] VITALS: BP 120/71; PULSE 65; RESP 18; TEMP 37.1; O2SAT 97
[2020-08-24 14:00] VITALS: RESP 16
--- NOTE | 2020-08-24 14:02 | PC.NURSE ---
this rn is unable to do the columbia scale at this time pt is sleeping and when woken up pt refused to answer any questions.
--- NOTE | 2020-08-24 14:10 | PC.NURSE ---
kodi marcy ([phone], [facility], pt's social media editor) called [facility]. ms. vidal states that pt is enrolled in an outreach program and states that pt had spoken to her yesterday and was requesting detox).
--- NOTE | 2020-08-24 14:14 | PC.NURSE ---
pt is eating lunch.
--- NOTE | 2020-08-24 15:18 | PC.NURSE ---
Report received. Pt sleeping. No signs of distress. Respirations even and non-labored.
--- NOTE | 2020-08-24 15:58 | PC.NURSE ---
[facility] at bedside
--- NOTE | 2020-08-24 20:25 | PC.NURSE ---
Patient in bed appears sleeping, no distress observed/reported, will continue to monitor.
--- NOTE | 2020-08-25 01:36 | PC.NURSE ---
Patient compliant with scheduled keflex PO medication
[2020-08-25] MEDS: cephALEXin 500 MG CAPSULE PO (01:43)
[2020-08-25 06:52] VITALS: PULSE 69; RESP 17; TEMP 36.5; O2SAT 98
--- NOTE | 2020-08-25 07:25 | PC.NURSE ---
Report recived from APOLONIA Reyes. Pt awakened, reminded that she is being discharged to [facility] shortly.
--- NOTE | 2020-08-25 07:41 | PC.NURSE ---
Pt discharged as planned to waiting room to await taxi to [place]- arranged by Terri. Pt in agreement w/ plan no concerns reported.
== END 2020-08-25 07:43 | disposition home or self-care (01) ==
PROVIDERS: Physician Assistant; Emergency Provider Student in an Organized Health Care Education/Training Program
DX: R45.851 Suicidal ideations (principal); F11.10 Opioid abuse, uncomplicated; F14.10 Cocaine abuse, uncomplicated; F17.200 Nicotine dependence, unspecified, uncomplicated; F10.10 Alcohol abuse, uncomplicated; Y90.0 Blood alcohol level of less than 20 mg/100 ml; L02.413 Cutaneous abscess of right upper limb
CPT/HCPCS: 36415; 80048; 80076; 80307; 80320; 81003; 82550; 83605; 83690; 83735; 83880; 85025; 85610; 85730; 87040; 93971; 96360; 99285

== ENCOUNTER 2020-08-29 08:10 | Emergency (ER) | payer OTHER, SELFPAY ==
[2020-08-29] VITALS (7 sets, daily range): BP systolic 89–106; BP diastolic 50–58; PULSE 53–67; RESP 14–18; TEMP 36.3–36.8; O2SAT 98–100; BMI 33.0
--- NOTE | 2020-08-29 08:29 | CT_ITS ---
EXAMINATION: CT HEAD WITHOUT CONTRAST CLINICAL INFORMATION: Fall. Question seizure. COMPARISON: Previous exams most recent head CT April 2019 and brain MRI December 2018 TECHNIQUE: Contiguous axial imaging was performed from the skull base to vertex without intravenous administration of contrast. This CT examination was performed using dose optimization techniques as appropriate, variously including the following: *Automated exposure control *Adjustment of mA and/or kV according to patient size (this includes techniques or standardized protocols for targeted exams where dose is matched to indication/reason for exam; i.e. extremities or head) *Use of iterative reconstruction technique DLP: 653 mGy-cm FINDINGS: There is no evidence of an extra-axial collection. There is no evidence of intra-axial or extra-axial hemorrhage. The ventricles and extra-axial CSF spaces are appropriate. Caballero-white matter differentiation is normal. There is a low-attenuation extra-axial mass in the interpeduncular cistern anterior to the midbrain. This measures approximately 1 x 1.1 cm. This is unchanged from previous exams, and has negative Hounsfield units suggestive of fat. Differential would include lipoma and dermoid. No other mass, mass effect or infarct is seen. Review at bone windows is unremarkable. Visualized paranasal sinuses, mastoid air cells and middle ears are clear. CT/CT head/brain wo con IMPRESSION: No acute findings. 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
--- NOTE | 2020-08-29 08:32 | ECG_ITS ---
Test Reason : WITHDRAWL Blood Pressure : / mmHG Vent. Rate : 058 BPM Atrial Rate : 058 BPM P-R Int : 186 ms QRS Dur : 090 ms QT Int : 500 ms P-R-T Axes : 063 046 050 degrees QTc Int : 490 ms Sinus bradycardia Nonspecific T wave abnormality Prolonged QT Abnormal ECG When compared to the previous EKG of march 22, 2020, anterior T inversions are new (but seen in 2011) Referred By: Annelise Guardado Electronically Signed By:LAMBERTO CARLIN
--- NOTE | 2020-08-29 08:33 | ED.GENADULT ---
HPI - General Adult General Chief complaint: General Medical Stated complaint: withdraw like symptoms Time Seen by Provider: 08/29/20 08:21 Source: patient and EMS Mode of arrival: EMS History of Present Illness HPI narrative: 40-year-old female with a past medical history of substance abuse, PTSD, rhabdo with JOSEPHINE, CVA, colitis, hepatitis-C, BIBA for withdrawl sx including nausea, chills, myalgias and abdominal cramping. Patient admits she was recently seen in this ED, sent to [facility] detox but reports they were not expecting her, then went to [facility] and was discharged home. States she has been unable to get her Methadone, and hasnt used drugs or ETOH x couple days. Reports questionable syncope versus seizure this morning, states was found on ground by a couple of guys, unknown head trauma. Reports vague SI. Pt is interested in detox. Denies HI, WANG, V/D/C. Related Data Home Medications Medication Instructions Recorded Confirmed Lactobacillus acidophilus 1 cap PO DAILY 07/21/20 08/23/20 [Acidophilus] cyanocobalamin (vitamin B-12) 1 tab PO DAILY 07/21/20 08/23/20 gabapentin 1 tab PO TID 07/21/20 08/23/20 lamotrigine 1 tab PO DAILY 07/21/20 08/23/20 omeprazole 1 cap PO DAILY 07/21/20 08/23/20 topiramate 1 tab PO DAILY PRN 07/21/20 08/23/20 albuterol sulfate 1 - 2 puff PO Q4H PRN 08/23/20 08/23/20 buspirone 10 mg PO TID PRN 08/23/20 08/23/20 clonazepam 1 tab PO BID 08/23/20 08/23/20 divalproex 500 mg PO TID 08/23/20 08/23/20 ferrous sulfate 1 tab PO BID 08/23/20 08/23/20 nicotine 1 patch TRANSDERMAL DAILY 08/23/20 08/23/20 propranolol 1 tab PO TID PRN 08/23/20 08/23/20 trazodone 1 tab PO BEDTIME 08/23/20 08/23/20 Previous Rx's Medication Instructions Recorded cephalexin [Keflex] 500 mg PO QID 10 Days #40 cap 08/25/20 doxycycline hyclate 100 mg PO BID #20 cap 08/25/20 Allergies Allergy/AdvReac Type Severity Reaction Status Date / Time azithromycin [AZITHROMYCIN] Allergy Unknown UNK Verified 08/24/20 16:06 erythromycin base Allergy Unknown RASH Verified 08/24/20 16:06 [ERYTHROMYCIN BASE] olanzapine [From ZYPREXA] Allergy Unknown PEDAL EDEMA Verified 08/24/20 16:06 quetiapine [From SEROQUEL] Allergy Unknown THROAT Verified 08/24/20 16:06 SWELLING risperidone [From RISPERDAL] Allergy Unknown TWITCHING Verified 08/24/20 16:06 shellfish derived Allergy Unknown VOMITING Verified 08/24/20 16:06 [SHELLFISH DERIVED] sulfamethoxazole Allergy Unknown ITCHING Verified 08/24/20 16:06 [From BACTRIM] trimethoprim [From BACTRIM] Allergy Unknown ITCHING Verified 08/24/20 16:06 arithromiosin Allergy Unknown Unknown Uncoded 08/24/20 16:06 gluten Allergy Unknown Unknown Uncoded 08/24/20 16:06 sea food Allergy Unknown Unknown Uncoded 08/24/20 16:06 Sulfacet-R Allergy Unknown Unknown Uncoded 08/24/20 16:06 SEAFOOD AdvReac Unknown VOMIT Uncoded 06/07/20 15:47 Review of Systems Review of Systems: Constitutional: No Weight loss, No Fever, + Chills, No Night Sweats, + Fatigue, No Malaise Cardiovascular: No Chest Pain, No SOB, No Dyspnea on Exertion, No Orthopnea, No Edema, No Palpitations Respiratory: No Cough, No Sputum, No Wheezing, No Dyspnea Gastrointestinal: +Nausea, No Vomiting, No Diarrhea, No Constipation, +Abdominal pain Genitourinary: No irregular bleeding, No Dysuria, No Urinary Frequency, No Hematuria Musculoskeletal: No joint pain, + Myalgias, No Joint Swelling Skin: No Skin Lesions, No rash Psych: No Anxiety/Panic, + Depression, +SI, No HI/AH/VH Yes all other systems are reviewed and are negative [facility] Past Medical History Attestation statement: The following information was validated with the patient. Social History Social History Alcohol intake: former Smoking Status: Current every day smoker Substance Use Type: Crack/Cocaine and Heroin Advance Directives: No Advance Directives Information Provided: No Physical Exam Vital Signs: Vital Signs: Last Vital Signs Temp 98.0 F 08/29/20 15:26 Pulse 67 08/29/20 16:48 Resp 16 08/29/20 16:48 BP 91/54 L 08/29/20 16:48 Pulse Ox 98 08/29/20 16:48 Body Mass Index 33.0 Const: Other: appears under the influence General: cooperative Orientation/consciousness: patient oriented x3 Limitations: no limitations HENMT: Other: atraumatic Head: Yes normal to inspection Ears: hearing grossly normal bilaterally General nose exam: Normal external nose present Face and sinus: Yes normal facial exam Eyes: General: appearance normal, both eyes and all related structures Pupils: Equal, round and reactive pupils present EOM: EOMs intact bilaterally Neck: Neck: Yes normal visual inspection and Yes no meningeal signs Resp: Effort & Inspection: normal respiratory effort Auscultation: clear to auscultation bilaterally Cardio: Rate: regular rate Heart sounds: S1 normal heart sound present and S2 normal heart sound present GI: Inspection: Yes normal to inspection Palpation (GI): Soft to palpation, nontender, no guarding and not rigid Skin: Rashes: no rashes Wounds: no wounds Neuro: General: patient oriented x3, tone normal, moves all extremities, no meningeal signs and no focal motor deficits Cranial nerves: Yes Equal, round and reactive pupils present Gait exam (Neuro): Normal gait present Extrem: General: Yes normal to inspection Psych: Thought content: Suicidality present Course Course Course Narrative: -drug screen positive for opiates, PCP, benzos, and lithium -head CT unremarkable -1255--labs at patient's baseline, on re-evaluation patient is still sleeping comfortably, no acute distress -1700-- ED care transferred to [facility] pending clinical sobreity and N eval Medical Decision Making [facility] Narrative Medical decision making narrative: 40-year-old female with a past medical history of substance abuse, PTSD, rhabdo with JOSEPHINE, CVA, colitis, hepatitis-C, BIBA for withdrawl sx including nausea, chills, myalgias and abdominal cramping. Reports questionable syncope vs seizure this morning & vague SI. On exam VSS, NAD, appears under the influence, does not appear to be in withdrawal at this time. Atraumatic. Concern for substance abuse vs ?fall and SI. Low concern for metabolic/infectious etiology or ICH Plan: EKG, labs, KYLE, head CT, BHN, Reassess Lab Data Result diagrams: 08/29/20 11:17 12 11:17 Labs: Lab Results 08/29/20 08/29/20 08/29/20 Range/Units 09:48 11:17 11:17 WBC 6.7 (4.8-10.8) X10*3/uL RBC 4.24 (4.20-5.50) X10*6/uL Hgb 12.8 (12.0-16.0) g/dl Hct 39.3 (37-47) % MCV 92.7 (80-98) fL MCH 30.2 (27.0-33.0) pg MCHC 32.6 (31.0-35.0) g/dl RDW 12.5 (11.0-16.0) % Plt Count 144 L (160-400) X10*3/uL MPV 9.8 (9.4-12.3) fL Immature Gran % (Auto) 0.1 (0.0-0.4) % Neut % (Auto) 52.0 (45-73) % Lymph % (Auto) 36.0 (20-40) % Jennings % (Auto) 9.4 (2-11) % Eos % (Auto) 2.1 (0-4) % Baso % (Auto) 0.4 (0-2) % Lymph # (Auto) 2.4 (1.2-4.9) X10*3/uL [place] # (Auto) 0.6 (0.1-1.2) X10*3/uL Eos # (Auto) 0.1 (0.0-0.4) X10*3/uL Baso # (Auto) 0.0 (0.0-0.2) X10*3/uL Abs Immat Gran (auto) 0.01 (0.00-0.03) X10*3/uL Absolute Neuts (auto) 3.5 (2.0-8.3) X10*3/uL Absolute Nucleated RBC 0.000 (0.0-0.012) X10*3/uL Nucleated RBC % (auto) 0.0 (0.0-0.2) /100WBC Sodium 132 L (135-145) mmol/L Potassium 3.9 D (3.3-5.1) mmol/l Chloride 100 (96-108) mmol/L Carbon Dioxide 22 (22-29) mmol/L Anion Gap 14 (12-20) BUN 21 H D (9-16) mg/dL Creatinine 0.99 (0.5-1.4) mg/dL Estim Creat Clear Calc 82.0 Estimated GFR > 60 Random Glucose 78 (60-115) mg/dL Lactic Acid Calcium 8.4 (8.4-10.2) mg/dL Magnesium 2.3 (1.6-2.6) mg/dL Total Bilirubin 0.8 (0.0-1.0) mg/dL Direct Bilirubin 0.5 (0.0-0.5) mg/dL AST 63 H (5-31) U/L ALT 49 H (0-31) U/L Alkaline Phosphatase 94 (39-117) U/L Total Protein 6.6 (6.5-8.0) g/dL Albumin 4.0 (3.5-5.0) g/dL Urine Opiates Screen POSITIVE H (Not Detect) Ur Barbiturates Screen Not Detected (Not Detect) Ur Phencyclidine Scrn POSITIVE H (Not Detect) Ur Amphetamines Screen Not Detected (Not Detect) U Benzodiazepines Scrn POSITIVE H (Not Detect) Urine Cocaine Screen POSITIVE H (Not Detect) U Marijuana (THC) Screen Not Detected (Not Detect) Ethyl Alcohol mg/dL 08/29/20 08/29/20 Range/Units 11:17 11:17 WBC (4.8-10.8) X10*3/uL RBC (4.20-5.50) X10*6/uL Hgb (12.0-16.0) g/dl Hct (37-47) % MCV (80-98) fL MCH (27.0-33.0) pg MCHC (31.0-35.0) g/dl RDW (11.0-16.0) % Plt Count (160-400) X10*3/uL MPV (9.4-12.3) fL Immature Gran % (Auto) (0.0-0.4) % Neut % (Auto) (45-73) % Lymph % (Auto) (20-40) % [place] % (Auto) (2-11) % Eos % (Auto) (0-4) % Baso % (Auto) (0-2) % Lymph # (Auto) (1.2-4.9) X10*3/uL [place] # (Auto) (0.1-1.2) X10*3/uL Eos # (Auto) (0.0-0.4) X10*3/uL Baso # (Auto) (0.0-0.2) X10*3/uL Abs Immat Gran (auto) (0.00-0.03) X10*3/uL Absolute Neuts (auto) (2.0-8.3) X10*3/uL Absolute Nucleated RBC (0.0-0.012) X10*3/uL Nucleated RBC % (auto) (0.0-0.2) /100WBC Sodium (135-145) mmol/L Potassium (3.3-5.1) mmol/l Chloride (96-108) mmol/L Carbon Dioxide (22-29) mmol/L Anion Gap (12-20) BUN (9-16) mg/dL Creatinine (0.5-1.4) mg/dL Estim Creat Clear Calc Estimated GFR Random Glucose (60-115) mg/dL Lactic Acid Cancelled Calcium (8.4-10.2) mg/dL Magnesium (1.6-2.6) mg/dL Total Bilirubin (0.0-1.0) mg/dL Direct Bilirubin (0.0-0.5) mg/dL AST (5-31) U/L ALT (0-31) U/L Alkaline Phosphatase (39-117) U/L Total Protein (6.5-8.0) g/dL Albumin (3.5-5.0) g/dL Urine Opiates Screen (Not Detect) Ur Barbiturates Screen (Not Detect) Ur Phencyclidine Scrn (Not Detect) Ur Amphetamines Screen (Not Detect) U Benzodiazepines Scrn (Not Detect) Urine Cocaine Screen (Not Detect) U Marijuana (THC) Screen (Not Detect) Ethyl Alcohol < 10 mg/dL Discharge Plan Discharge Clinical Impression: Substance abuse, Suicidal ideations Prescriptions: No Action cyanocobalamin (vitamin B-12) 1,000 mcg tablet 1 tab PO DAILY RF: 0 gabapentin 800 mg tablet 1 tab PO TID RF: 0 omeprazole 20 mg capsule,delayed release(DR/EC) 1 cap PO DAILY RF: 0 Lactobacillus acidophilus [Acidophilus] Capsule 1 cap PO DAILY RF: 0 topiramate 100 mg tablet 1 tab PO DAILY PRN (Reason: Insomnia) RF: 0 lamotrigine 100 mg tablet 1 tab PO DAILY RF: 0 trazodone 50 mg tablet 1 tab PO BEDTIME RF: 0 divalproex 500 mg tablet extended release 24 hr 500 mg PO TID RF: 0 albuterol sulfate 90 mcg/actuation HFA aerosol inhaler 1 - 2 puff PO Q4H PRN (Reason: wheezing) RF: 0 clonazepam 1 mg tablet 1 tab PO BID RF: 0 ferrous sulfate 325 mg (65 mg iron) tablet 1 tab PO BID RF: 0 buspirone 10 mg tablet 10 mg PO TID PRN (Reason: Anxiety) RF: 0 nicotine 7 mg/24 hr patch 24 hour 1 patch transdermal DAILY RF: 0 propranolol 20 mg tablet 1 tab PO TID PRN (Reason: Anxiety) RF: 0 doxycycline hyclate 100 mg capsule 100 mg PO BID Qty: 20 RF: 0 cephalexin [Keflex] 500 mg capsule 500 mg PO QID 10 Days Qty: 40 RF: 0
--- NOTE | 2020-08-29 09:16 | PC.NURSE ---
PT IN CT SCAN ATTEMPTED TO OBTAIN BLOOD WORK PT IS A DIFFICULT STICK. ANTENNA MACHINE OPERATOR WILL TRY
--- NOTE | 2020-08-29 09:16 | MHC.CARE ---
Recovery Support note: Patient is a 40 year old [place] Islander speaking female who [place] [facility] [place] reporting withdrawal symptoms. When this show card writer met with patient, patient was awake but was not responding to any questions. Patient reported to ED staff an interest in going to detox and vague SI. [facility] does not have any female beds at this time and a message was left for [facility]. Discussed case with ED provider, due to patient's vague SI patient will be referred to [facility] for a crisis evaluation. This show card writer is available to assist in placing patient at a detox facility if N clears patient for discharge and they are unable to secure a bed for patient.
--- NOTE | 2020-08-29 09:41 | PC.NURSE ---
PHLEBOTOMY CALLED TO [facility], THEY WILL SEND SOMEONE UP
--- NOTE | 2020-08-29 10:00 | PC.NURSE ---
provider aware of BP due to pt being a difficult IV start feels it is ok to watch right now due to patient being under the influance of several drugs
[2020-08-29 10:28] LABS: Amphetamine Screen Urine Not Detected (Not Detect); Barbiturates, Urine Not Detected (Not Detect); Benzodiazepines Screen Urine POSITIVE (Not Detect); Cannabinoid Screen Urine Not Detected (Not Detect); Cocaine Screen Urine POSITIVE (Not Detect); Opiate Screen Urine POSITIVE (Not Detect); Phencyclidine Screen Urine POSITIVE (Not Detect)
[2020-08-29 11:23] LABS: MANUAL DIFF FLAG NO
--- NOTE | 2020-08-29 11:24 | PC.NURSE ---
LABS OBTAINED AND SENT
[2020-08-29 11:26] LABS: Basophils Percent Auto 0.4 % (0-2); Eosinophils Absolute Auto 0.1 X10*3/uL (0.0-0.4); Eosinophils Percent Auto 2.1 % (0-4); Hematocrit 39.3 % (37-47); Hemoglobin 12.8 g/dl (12.0-16.0); Imm Gran Abs Auto 0.01 X10*3/uL (0.00-0.03); Imm Gran Pct Auto 0.1 % (0.0-0.4); Lymphocytes Absolute Auto 2.4 X10*3/uL (1.2-4.9); Mean Corpuscular HGB Conc 32.6 g/dl (31.0-35.0); Mean Corpuscular Hemoglobin 30.2 pg (27.0-33.0); Mean Corpuscular Volume 92.7 fL (80-98); Mean Platelet Volume 9.8 fL (9.4-12.3); Monocytes Absolute Auto 0.6 X10*3/uL (0.1-1.2); Monocytes Percent Auto 9.4 % (2-11); Neutrophils Absolute Auto 3.5 X10*3/uL (2.0-8.3); Platelet Count 144 X10*3/uL (160-400); Red Blood Count 4.24 X10*6/uL (4.20-5.50); Red Cell Distribution Width 12.5 % (11.0-16.0); White Blood Count 6.7 X10*3/uL (4.8-10.8)
[2020-08-29 11:55] LABS: Ethanol < 10 mg/dL
[2020-08-29 11:59] LABS: Alanine Aminotransferase 49 U/L (0-31); Alkaline Phosphatase 94 U/L (39-117); Anion Gap 14 (12-20); Aspartate Amino Transferase 63 U/L (5-31); Bilirubin Direct 0.5 mg/dL (0.0-0.5); Bilirubin Total 0.8 mg/dL (0.0-1.0); Blood Urea Nitrogen 21 mg/dL (9-16); Calcium 8.4 mg/dL (8.4-10.2); Carbon Dioxide 22 mmol/L (22-29); Chloride 100 mmol/L (96-108); Estimated Glomerular Filt Rate > 60; Glucose Random 78 mg/dL (60-115); Magnesium 2.3 mg/dL (1.6-2.6); Potassium 3.9 mmol/l (3.3-5.1); Sodium 132 mmol/L (135-145); Total Protein 6.6 g/dL (6.5-8.0)
--- NOTE | 2020-08-29 17:09 | MHC.CARE ---
CARE Team receives a call from [facility]. They report that they are unable to consider pt for admission to [facility] without a crisis assessment, due to SI statements. CARE Team reaches out to APOLONIA Barba, to relay this information. Plan is for pt to be referred to [facility] once medically cleared and once pt is able to engage in an assessment. Per Freda, pt could not currently engage in assessment due to intoxication. Plan is for nursing to fax/call/confirm with N when appropriate. CARE Team is available as needed.
--- NOTE | 2020-08-29 19:44 | PC.NURSE ---
PT SLEEPING, WAKES TO VERBAL STIMULI, RESPIRATIONS EASY, N/L. SKIN W/D. VS OBTAINED. WILL CONTINUE TO MONITOR PT.
--- NOTE | 2020-08-29 21:07 | PC.NURSE ---
Patient just got transferred from main ED, changed over to hospital attire completed/patient compliant. Patient alert and oriented, currently in bed appears sleeping, no distress reported, demanding medication, will continue to monitor.
--- NOTE | 2020-08-29 21:26 | PC.NURSE ---
BHN faxed/care team notified/care team will update N.
--- NOTE | 2020-08-29 22:58 | MHC.CARE ---
CARE Team spoke with Zahira, supervisor extruding department from [facility] crisis regarding referral and rationale for needing crisis assessment. Plan is for pt to be assessed by crisis once pt is able to fully participate.
[2020-08-30 00:54] VITALS: BP 87/47; PULSE 74; RESP 16; TEMP 36.4; O2SAT 100
--- NOTE | 2020-08-30 00:55 | PC.NURSE ---
Patient in bed appears sleeping, no distress reported, patient completed telephone assessment with [facility] clinician, plan per [facility] is that the patient will go to [facility] tomorrow at 0800, Sherlyn clinician told us to make reminder call to [facility] at 0700 for Cab. Communication with Sherlyn was witnessed by the staff member. Will continue to monitor the patient.
--- NOTE | 2020-08-30 01:10 | PC.NURSE ---
Per [facility] instruction, lab results faxed to [facility] at [phone], addressed to Arline
--- NOTE | 2020-08-30 06:38 | PC.NURSE ---
JEREMY called/spoke with Yumiko/reminded her for CAB ride arrangement for the patient to [facility] in [place]. Yumiko notified that she will let the supervisor press room know.
--- NOTE | 2020-08-30 07:16 | PC.NURSE ---
Report received. PT is sleeping in bed. Breathing is even and unlabored. Waiting for transport to [facility] via taxi per N.
== END 2020-08-30 07:41 | disposition home or self-care (01) ==
PROVIDERS: Physician Assistant; Emergency Provider Emergency Medicine; PCP Internal Medicine
DX: F11.10 Opioid abuse, uncomplicated (principal); F14.10 Cocaine abuse, uncomplicated; R45.851 Suicidal ideations; F17.200 Nicotine dependence, unspecified, uncomplicated
CPT/HCPCS: 36415; 70450; 80048; 80076; 80307; 80320; 83735; 85025; 93005; 99284

== ENCOUNTER 2020-12-04 14:33 | Inpatient (IN) | payer OTHER, SELFPAY ==
--- NOTE | ~2020-12-04 | CT_ITS ---
EXAMINATION: CT HEAD WITHOUT CONTRAST CLINICAL INFORMATION: Overdose COMPARISON: Previous head CT August 2020 TECHNIQUE: Contiguous axial imaging was performed from the skull base to vertex without intravenous administration of contrast. This CT examination was performed using dose optimization techniques as appropriate, variously including the following: *Automated exposure control *Adjustment of mA and/or kV according to patient size (this includes techniques or standardized protocols for targeted exams where dose is matched to indication/reason for exam; i.e. extremities or head) *Use of iterative reconstruction technique DLP: 715 mGy-cm FINDINGS: There is no evidence of an extra-axial collection. There is no evidence of intra-axial or extra-axial hemorrhage. The ventricles and extra-axial CSF spaces are appropriate. Caballero-white matter differentiation is normal. There is a 1.2 x 1.1 cm fatty lesion in the right prepontine/posterior pentagonal cistern that is stable and likely represents a lipoma or epidermoid. No other mass, mass effect or evidence of infarct is seen. Bony structures are normal. Visualized paranasal sinuses, mastoid air cells and middle ears are clear. CT/CT head/brain wo con IMPRESSION: No acute findings. Stable 1 cm fatty lesion in the right prepontine/posterior pentagonal cistern likely representing a lipoma or epidermoid.
--- NOTE | ~2020-12-04 | XR_ITS ---
EXAMINATION: XR CHEST CLINICAL INFORMATION: OD. COMPARISON: None TECHNIQUE: Frontal view of the chest was obtained. FINDINGS: The lungs are hypoexpanded with patchy right parahilar density question developing infiltrate. Rest of lungs are clear. The heart size and pulmonary vascularity is normal. No gross bony abnormality seen. XR/XR chest 1V IMPRESSION: Patchy right parahilar density likely developing infiltrate.
--- NOTE | ~2020-12-04 | US_ITS ---
EXAMINATION: US ABDOMEN LIMITED CLINICAL INFORMATION: Abnormal LFTs and abnormal CT of CBD. Rule out gallstones. COMPARISON: CT abdomen and pelvis 12/04/2020. KUB 06/05/2019 and 01/09/2019. Ultrasound abdomen complete 01/01/2019 and 05/27/2016. TECHNIQUE: Real-time imaging of the right upper quadrant abdominal viscera. FINDINGS: PANCREAS: The body and tail the pancreas are normal appearing. The head is not well visualized. LIVER: The liver is increased suggestive of fatty infiltration.. The liver size and contour is normal. No focal hepatic lesion. There is mild intrahepatic biliary duct dilatation. GALLBLADDER: Gallbladder is contracted. No gallstones are seen. COMMON BILE DUCT: The proximal common bile duct is slightly dilated measuring 1.2 cm in diameter. The distal common bile duct is not well visualized. RIGHT KIDNEY: Normal. No hydronephrosis. No renal calculi or focal parenchymal lesions. The kidney measures 11.5 cm in maximum dimension. FREE FLUID: None. US/US abdomen limited IMPRESSION: Mild intra and extrahepatic biliary duct dilatation. The proximal common bile duct measures 1.2 cm. The distal common bile duct in head of the pancreas are not well visualized. Echogenic liver probably suggestive of fatty infiltration.
--- NOTE | ~2020-12-04 | CT_ITS ---
EXAMINATION: CT ABDOMEN AND PELVIS WITHOUT CONTRAST CLINICAL INFORMATION: 40-year-old female with transaminitis. COMPARISON: CT abdomen pelvis 01/10/2019 TECHNIQUE: Multidetector volumetric imaging was performed from the superior aspect of the liver through the pubic symphysis. Sagittal and coronal reformatted images were obtained on the technologist's workstation. This CT examination was performed using dose optimization techniques as appropriate, variously including the following: *Automated exposure control *Adjustment of mA and/or kV according to patient size (this includes techniques or standardized protocols for targeted exams where dose is matched to indication/reason for exam; i.e. extremities or head) *Use of iterative reconstruction technique DLP: 753 mGy-cm FINDINGS: Visualized lung bases demonstrate mild dependent atelectasis. The liver is normal in size but demonstrates diffusely decreased attenuation. The gallbladder is normal in appearance. CBD is dilated measuring up to 1 cm in diameter. There is mild intrahepatic biliary ductal dilatation. The pancreas is normal in appearance. The spleen is mildly enlarged measuring 14 cm. The adrenal glands are unremarkable. Symmetrically sized kidneys. No renal calculi bilaterally. Mild prominence of both collecting systems without overt hydronephrosis. The stomach is decompressed and therefore not accurately characterize. Normal caliber loops of small bowel. There is a moderate stool burden throughout the colon. Normal appendix. The bladder is significantly distended. Unremarkable CT appearance of the uterus. No gross free pelvic fluid. No inguinal lymphadenopathy. No acute osseous abnormality. CT/CT abdomen pelvis wo con IMPRESSION: 1. The common bile duct is dilated and there is minimal intrahepatic biliary duct dilatation. The gallbladder is normal in appearance. No definitive gallstones or choledocholithiasis visualized, however, MRI/MRCP may be warranted. 2. Diffusely decreased liver attenuation suggesting hepatic steatosis. Correlation with liver enzymes recommended. 3. Mild splenomegaly. 4. Significantly distended bladder. Mild prominence of both collecting systems is suspected to be secondary to bladder distention. No obstructing calculi.
[2020-12-04 14:39] VITALS: BP 100/55; PULSE 96; RESP 11; TEMP 36.1; O2SAT 97; BMI 32.3
[2020-12-04] MEDS: 0.9 % Sodium Chloride 1,000 ML 999 ML IVCONT ×2 (15:14→19:00)
[2020-12-04] MEDS: Naloxone HCl 0.4 MG/ML VIAL IVPUSH (15:14)
[2020-12-04 15:54] LABS: MANUAL DIFF FLAG NO
[2020-12-04 15:55] LABS: Basophils Percent Auto 0.4 % (0-2); Eosinophils Absolute Auto 0.1 X10*3/uL (0.0-0.4); Eosinophils Percent Auto 1.6 % (0-4); Hematocrit 36.5 % (37-47); Imm Gran Abs Auto 0.02 X10*3/uL (0.00-0.03); Imm Gran Pct Auto 0.4 % (0.0-0.4); Lymphocytes Absolute Auto 1.2 X10*3/uL (1.2-4.9); Lymphocytes Percent Auto 22.9 % (20-40); Mean Corpuscular HGB Conc 32.9 g/dl (31.0-35.0); Mean Corpuscular Hemoglobin 29.9 pg (27.0-33.0); Mean Corpuscular Volume 90.8 fL (80-98); Mean Platelet Volume 9.2 fL (9.4-12.3); Monocytes Absolute Auto 0.3 X10*3/uL (0.1-1.2); Monocytes Percent Auto 5.8 % (2-11); Neutrophils Absolute Auto 3.6 X10*3/uL (2.0-8.3); Neutrophils Percent Auto 68.9 % (45-73); Platelet Count 119 X10*3/uL (160-400); Red Blood Count 4.02 X10*6/uL (4.20-5.50); Red Cell Distribution Width 14.8 % (11.0-16.0); White Blood Count 5.2 X10*3/uL (4.8-10.8)
--- NOTE | 2020-12-04 16:17 | ED.GENADULT ---
HPI - General Adult General Chief complaint: Altered Mental Status Stated complaint: OVERUSE OF MUSCLE RELAXER AND METHADONE,SLEEPY Time Seen by Provider: 12/04/20 15:01 Source: EMS Mode of arrival: EMS Limitations: altered mental status History of Present Illness HPI narrative: 40-year-old female with a past medical history of substance abuse, PTSD, rhabdo with JOSEPHINE, CVA, colitis, hepatitis-C, BIBA for overdose from unknown substances. Per EMS call initially came in from an Urgent Care as cardiac arrest. Patient was recently released from a [facility], there was suspicion for Methadone and muscle relaxer overuse. Per EMS patient was responsive during transport, only responsive to painful stimuli in the ED. Related Data Home Medications Medication Instructions Recorded Confirmed Lactobacillus acidophilus 1 cap PO DAILY 07/21/20 08/23/20 [Acidophilus] cyanocobalamin (vitamin B-12) 1 tab PO DAILY 07/21/20 08/23/20 gabapentin 1 tab PO TID 07/21/20 08/23/20 lamotrigine 1 tab PO DAILY 07/21/20 08/23/20 omeprazole 1 cap PO DAILY 07/21/20 08/23/20 topiramate 1 tab PO DAILY PRN 07/21/20 08/23/20 albuterol sulfate 1 - 2 puff PO Q4H PRN 08/23/20 08/23/20 buspirone 10 mg PO TID PRN 08/23/20 08/23/20 clonazepam 1 tab PO BID 08/23/20 08/23/20 divalproex 500 mg PO TID 08/23/20 08/23/20 ferrous sulfate 1 tab PO BID 08/23/20 08/23/20 nicotine 1 patch TRANSDERMAL DAILY 08/23/20 08/23/20 propranolol 1 tab PO TID PRN 08/23/20 08/23/20 trazodone 1 tab PO BEDTIME 08/23/20 08/23/20 Previous Rx's Medication Instructions Recorded cephalexin [Keflex] 500 mg PO QID 10 Days #40 cap 08/25/20 doxycycline hyclate 100 mg PO BID #20 cap 08/25/20 Allergies Allergy/AdvReac Type Severity Reaction Status Date / Time azithromycin [AZITHROMYCIN] Allergy Unknown UNK Verified 08/24/20 16:06 erythromycin base Allergy Unknown RASH Verified 08/24/20 16:06 [ERYTHROMYCIN BASE] olanzapine [From ZYPREXA] Allergy Unknown PEDAL EDEMA Verified 08/24/20 16:06 quetiapine [From SEROQUEL] Allergy Unknown THROAT Verified 08/24/20 16:06 SWELLING risperidone [From RISPERDAL] Allergy Unknown TWITCHING Verified 08/24/20 16:06 shellfish derived Allergy Unknown VOMITING Verified 08/24/20 16:06 [SHELLFISH DERIVED] sulfamethoxazole Allergy Unknown ITCHING Verified 08/24/20 16:06 [From BACTRIM] trimethoprim [From BACTRIM] Allergy Unknown ITCHING Verified 08/24/20 16:06 arithromiosin Allergy Unknown Unknown Uncoded 08/24/20 16:06 gluten Allergy Unknown Unknown Uncoded 08/24/20 16:06 sea food Allergy Unknown Unknown Uncoded 08/24/20 16:06 Sulfacet-R Allergy Unknown Unknown Uncoded 08/24/20 16:06 SEAFOOD AdvReac Unknown VOMIT Uncoded 06/07/20 15:47 Review of Systems Review of Systems: Unable to obtain ROS due to patient's acute mental state Yes all other systems are reviewed and are negative [facility] Past Medical History Attestation statement: The following information was validated with the patient. Medical History (Updated 12/04/20 @ 17:06 by ALISON Barnes) No known health problems Social History Social History Alcohol intake: former Smoking Status: Unknown if ever smoked Use of substances other than those prescribed or required for medical reasons: Unknown Substance Use Type: Crack/Cocaine and Heroin Advance Directives: No Advance Directives Information Provided: Yes Physical Exam Vital Signs: Vital Signs: Last Vital Signs Temp 97.0 F 12/04/20 14:39 Pulse 91 12/04/20 16:43 Resp 12 12/04/20 16:43 BP 129/75 12/04/20 16:43 Pulse Ox 100 12/04/20 16:43 Body Mass Index 32.3 Const: Other: Responsive only to painful stimuli General: patient obtunded Orientation/consciousness: patient obtunded HENMT: Head: Yes normal to inspection and Yes atraumatic Ears: hearing grossly normal bilaterally General nose exam: Normal external nose present Face and sinus: Yes normal facial exam Eyes: Other: Pupils slow to respond General: appearance normal, both eyes and all related structures EOM: EOMs intact bilaterally Neck: Neck: Yes normal visual inspection Chest: Chest palpation & inspection: normal inspection of the chest Resp: Effort & Inspection: normal respiratory effort Cardio: Rate: regular rate GI: Inspection: Yes normal to inspection Palpation (GI): Soft to palpation and nontender Skin: Rashes: no rashes Wounds: no wounds Neuro: General: patient obtunded Extrem: General: Yes normal to inspection Course Course Course Narrative: -AST/ALT elevated CT head/brain wo con IMPRESSION: No acute findings. Stable 1 cm fatty lesion in the right prepontine/posterior pentagonal cistern likely representing a lipoma or epidermoid. XR chest 1V IMPRESSION: Patchy right parahilar density likely developing infiltrate. >> blood cultures, lactic, empiric IV Zosyn ordered -1700--ED care transferred to [facility] pending remaining labs, observation/re-evaluation Medical Decision Making MDM Narrative Medical decision making narrative: 40-year-old female with a past medical history of substance abuse, PTSD, rhabdo with JOSEPHINE, CVA, colitis, hepatitis-C, BIBA for overdose from unknown substances. On exam VSS, appears the influence/responsive only to painful stimuli, protecting airway, no signs of trauma. Suspicion for polysubstance abuse. Rule out metabolic abnormality/IC pathology Plan: EKG, labs, UA, head CT, re-evaluate Lab Data Result diagrams: 12/04/20 15:49 12/04/20 15:49 Labs: Lab Results 12/04/20 12/04/20 12/04/20 Range/Units 15:49 15:49 15:49 WBC 5.2 (4.8-10.8) X10*3/uL RBC 4.02 L (4.20-5.50) X10*6/uL Hgb 12.0 (12.0-16.0) g/dl Hct 36.5 L (37-47) % MCV 90.8 (80-98) fL MCH 29.9 (27.0-33.0) pg MCHC 32.9 (31.0-35.0) g/dl RDW 14.8 (11.0-16.0) % Plt Count 119 L (160-400) X10*3/uL MPV 9.2 L (9.4-12.3) fL Immature Gran % (Auto) 0.4 (0.0-0.4) % Neut % (Auto) 68.9 (45-73) % Lymph % (Auto) 22.9 (20-40) % [place] % (Auto) 5.8 (2-11) % Eos % (Auto) 1.6 (0-4) % Baso % (Auto) 0.4 (0-2) % Lymph # (Auto) 1.2 (1.2-4.9) X10*3/uL [place] # (Auto) 0.3 (0.1-1.2) X10*3/uL Eos # (Auto) 0.1 (0.0-0.4) X10*3/uL Baso # (Auto) 0.0 (0.0-0.2) X10*3/uL Abs Immat Gran (auto) 0.02 (0.00-0.03) X10*3/uL Absolute Neuts (auto) 3.6 (2.0-8.3) X10*3/uL Absolute Nucleated RBC 0.000 (0.0-0.012) X10*3/uL Nucleated RBC % (auto) 0.0 (0.0-0.2) /100WBC Sodium 140 (135-145) mmol/L Potassium 3.6 (3.3-5.1) mmol/L Chloride 109 H (96-108) mmol/L Carbon Dioxide 21 L (22-29) mmol/L Anion Gap 14 (12-20) BUN 17 H (9-16) mg/dL Creatinine 0.68 (0.5-1.4) mg/dL Estim Creat Clear Calc 126.6 Estimated GFR > 60 Random Glucose 96 (60-115) mg/dL Calcium 8.5 (8.4-10.2) mg/dL Magnesium 2.1 (1.6-2.6) mg/dL Total Bilirubin 1.0 (0.0-1.0) mg/dL Direct Bilirubin 0.5 (0.0-0.5) mg/dL AST 566 H (5-31) U/L ALT 123 H (0-31) U/L Alkaline Phosphatase 92 (39-117) U/L Total Protein 6.4 L (6.5-8.0) g/dL Albumin 4.0 (3.5-5.0) g/dL Salicylates < 5.0 L (15-30) mg/dL Acetaminophen < 1 (<30) mcg/mL Ethyl Alcohol < 10 mg/dL Discharge Plan Discharge Clinical Impression: Overdose, Pneumonia Prescriptions: No Action cyanocobalamin (vitamin B-12) 1,000 mcg tablet 1 tab PO DAILY RF: 0 gabapentin 800 mg tablet 1 tab PO TID RF: 0 omeprazole 20 mg capsule,delayed release(DR/EC) 1 cap PO DAILY RF: 0 Lactobacillus acidophilus [Acidophilus] Capsule 1 cap PO DAILY RF: 0 topiramate 100 mg tablet 1 tab PO DAILY PRN (Reason: Insomnia) RF: 0 lamotrigine 100 mg tablet 1 tab PO DAILY RF: 0 trazodone 50 mg tablet 1 tab PO BEDTIME RF: 0 divalproex 500 mg tablet extended release 24 hr 500 mg PO TID RF: 0 albuterol sulfate 90 mcg/actuation HFA aerosol inhaler 1 - 2 puff PO Q4H PRN (Reason: wheezing) RF: 0 clonazepam 1 mg tablet 1 tab PO BID RF: 0 ferrous sulfate 325 mg (65 mg iron) tablet 1 tab PO BID RF: 0 buspirone 10 mg tablet 10 mg PO TID PRN (Reason: Anxiety) RF: 0 nicotine 7 mg/24 hr patch 24 hour 1 patch transdermal DAILY RF: 0 propranolol 20 mg tablet 1 tab PO TID PRN (Reason: Anxiety) RF: 0 doxycycline hyclate 100 mg capsule 100 mg PO BID Qty: 20 RF: 0 cephalexin [Keflex] 500 mg capsule 500 mg PO QID 10 Days Qty: 40 RF: 0
[2020-12-04 16:21] LABS: Ethanol < 10 mg/dL
[2020-12-04 16:26] LABS: Alanine Aminotransferase 123 U/L (0-31); Alkaline Phosphatase 92 U/L (39-117); Anion Gap 14 (12-20); Aspartate Amino Transferase 566 U/L (5-31); Bilirubin Direct 0.5 mg/dL (0.0-0.5); Blood Urea Nitrogen 17 mg/dL (9-16); Calcium 8.5 mg/dL (8.4-10.2); Carbon Dioxide 21 mmol/L (22-29); Chloride 109 mmol/L (96-108); Creatinine Clr Calc Pharmacy 126.6; Estimated Glomerular Filt Rate > 60; Glucose Random 96 mg/dL (60-115); Magnesium 2.1 mg/dL (1.6-2.6); Potassium 3.6 mmol/L (3.3-5.1); Salicylate < 5.0 mg/dL (15-30); Sodium 140 mmol/L (135-145); Total Protein 6.4 g/dL (6.5-8.0)
[2020-12-04 16:28] LABS: Acetaminophen LAB < 1 mcg/mL (<30)
[2020-12-04 16:43] VITALS: BP 129/75; PULSE 91; RESP 12; O2SAT 100
[2020-12-04] MEDS: Piperacillin Sodium/Tazobactam 3.375 GM in 0.9 % Sodium Chloride 50 ML IV (17:39)
[2020-12-04 17:41] LABS: Procalcitonin 0.07 ng/mL
[2020-12-04 17:56] LABS: COVID-19 Test Negative (Negative)
[2020-12-04 17:58] LABS: Lactic Acid 0.9 mmol/L (0.5-2.0)
[2020-12-04 18:00] VITALS: BP 104/69; PULSE 89; RESP 12; O2SAT 100
[2020-12-04 20:14] VITALS: BP 109/64; PULSE 88; RESP 9; TEMP 36.4; O2SAT 100
--- NOTE | 2020-12-04 20:24 | ECG_ITS ---
Test Reason : OVERDOSE Blood Pressure : / mmHG Vent. Rate : 083 BPM Atrial Rate : 083 BPM P-R Int : 206 ms QRS Dur : 088 ms QT Int : 428 ms P-R-T Axes : 067 027 024 degrees QTc Int : 502 ms Normal sinus rhythm Inferior infarct , age undetermined Prolonged QT Abnormal ECG When compared with ECG of 29-AUG-2020 08:41, Nonspecific T wave abnormality has replaced inverted T waves in Anterior leads Referred By: Sugar Mccracken Electronically Signed By:BRANNON FRANKLIN MD
[2020-12-04 20:25] LABS: Troponin-I High Sensitivity < 3.5 ng/L (<3.5-17.0)
[2020-12-04 20:53] VITALS: BP 109/64; PULSE 88; RESP 9; TEMP 36.4; O2SAT 100
[2020-12-04 20:58] LABS: Troponin-I High Sensitivity < 3.5 ng/L (<3.5-17.0)
--- NOTE | 2020-12-04 21:03 | PM.IMHP ---
History of Present Illness Date of Service: 12/04/20 Chief Complaint: Altered mental status 40-year-old female with a past medical history of polysubstance abuse, PTSD, history of hep C, opiate dependence, depression, bipolar, history of suicidal/homicidal ideations presented to the hospital with a chief complaint of altered mental status. Patient is drowsy and lethargic and very poorly involved in interview; I tried to reach the patient is here and Sarita couple times left a voice message as she was not reachable. Most of the history obtained from the ER staff and records. Reportedly patient was presented with altered mental status; initially the other concern for cardiac arrest but by the time EMS okay min patient was alert and the bystanders were questioning of patient took any extra dose of medications. When patient initially presented to the ER patient was significantly lethargic but protecting the airway is okay. Subsequently patient mental status slightly improved and response to verbal stimuli but quickly falls back to sleep; ER team mentioned the had to do sternal rub to wake her up initially. When questioned patient mentioned that she took couple doses of her Flexeril for pain; and any further questions she was not answering and falling back to sleep. ER team notified poison Control, but recommended to monitor EKG, telemetry, liver panel. U tox pending Lab show transaminitis and rhabdomyolysis [facility] Medical History (Updated 12/16/20 @ 00:01 by Claribel Lambert) No known health problems Social History Household Members: Unknown / Unable to assess Alcohol intake: former Smoking Status: Unknown if ever smoked Substance Use Type: Crack/Cocaine and Heroin Advance Directives: No Advance Directives Information Provided: No service: No Current occupational status: unemployed Meds Allergies Allergy/AdvReac Type Severity Reaction Status Date / Time azithromycin [AZITHROMYCIN] Allergy Unknown UNK Verified 08/24/20 16:06 erythromycin base Allergy Unknown RASH Verified 08/24/20 16:06 [ERYTHROMYCIN BASE] olanzapine [From ZYPREXA] Allergy Unknown PEDAL EDEMA Verified 08/24/20 16:06 quetiapine [From SEROQUEL] Allergy Unknown THROAT Verified 08/24/20 16:06 SWELLING risperidone [From RISPERDAL] Allergy Unknown TWITCHING Verified 08/24/20 16:06 shellfish derived Allergy Unknown VOMITING Verified 08/24/20 16:06 [SHELLFISH DERIVED] sulfamethoxazole Allergy Unknown ITCHING Verified 08/24/20 16:06 [From BACTRIM] trimethoprim [From BACTRIM] Allergy Unknown ITCHING Verified 08/24/20 16:06 arithromiosin Allergy Unknown Unknown Uncoded 08/24/20 16:06 gluten Allergy Unknown Unknown Uncoded 08/24/20 16:06 sea food Allergy Unknown Unknown Uncoded 08/24/20 16:06 Sulfacet-R Allergy Unknown Unknown Uncoded 08/24/20 16:06 SEAFOOD AdvReac Unknown VOMIT Uncoded 06/07/20 15:47 Active Medications: Current Medications Generic Name Dose Route Start Last Admin Trade Name Freq PRN Reason Stop Dose Admin Heparin Sodium (Porcine) 5,000 unit 12/04/20 21:00 Heparin Sodium,Porcine 5,000 Unit/Ml Vial SUBCUT Q12H [facility] Dextrose/Sodium Chloride 1,000 mls @ 100 mls/hr 12/04/20 21:00 D51/2ns IVCONT .Q10H [facility] Pharmacy Consult 1 each 12/04/20 20:25 Consult Rx Perform Med Rec MISCELLANE ONCE PRN Consult order Senna 17.2 mg 12/04/20 20:53 Sennosides 8.6 Mg Tablet PO BEDTIME PRN Constipation Sodium Chloride 3 ml 12/05/20 00:00 0.9 % Sodium Chloride Flush 3 Ml Syringe IVFLUSH QSHIFT [facility] Home Medications Medication Instructions Recorded Confirmed Last Taken Type aspirin 1 tab PO DAILY 12/04/20 12/04/20 Unknown History bupropion HCl 1 tab PO BID 12/04/20 12/04/20 Unknown History buspirone 1 tab PO BID 12/04/20 12/04/20 Unknown History cyanocobalamin (vitamin B-12) 1 tab PO DAILY 12/04/20 12/04/20 Unknown History [Vitamin B-12] cyclobenzaprine 1 tab PO TID 12/04/20 12/04/20 Unknown History diclofenac sodium 1 tab PO TID PRN 12/04/20 12/04/20 Unknown History ferrous sulfate 1 tab PO DAILY 12/04/20 12/04/20 Unknown History hydroxyzine pamoate 1 cap PO BID PRN 12/04/20 12/04/20 Unknown History lamotrigine 1 tab PO BID 12/04/20 12/04/20 Unknown History lamotrigine 2 tab PO DAILY 12/04/20 12/04/20 Unknown History loratadine 1 tab PO DAILY 12/04/20 12/04/20 Unknown History multivitamin [Daily-Angle] 1 tab PO DAILY 12/04/20 12/04/20 Unknown History propranolol 1 tab PO Q6H PRN 12/04/20 12/04/20 Unknown History topiramate 1 tab PO DAILY 12/04/20 12/04/20 Unknown History methadone 125 mg PO DAILY 12/06/20 12/06/20 Unknown History gabapentin 1 tab PO TID 12/07/20 12/07/20 Unknown History Physical Exam Vital Signs and Narrative: Vital Signs: Last Vital Signs Temp 97.5 F 12/04/20 20:14 Pulse 88 12/04/20 20:14 Resp 9 L 12/04/20 20:14 BP 109/64 12/04/20 20:14 Pulse Ox 100 12/04/20 20:14 Body Mass Index 32.3 Gen: Appears be in no acute distress.; patient is saturating well on room air. HEENT: NCAT, Moist mucosa. Pulmonary: Clear; no adventitious sounds heard CVS: Normal S1-S2 Abdomen: BS+, Soft, Nontender Extremities: Warm well perfused Neuro: Drowsy and lethargic; moves all extremities equally Results Labs CBC and Chem 7: 12/08/20 06:18 12/08/20 06:18 Labs: Laboratory Results - last 24 hr 12/04/20 12/04/20 12/04/20 15:49 15:49 15:49 MCV 90.8 MCH 29.9 MCHC 32.9 RDW 14.8 Plt Count 119 L MPV 9.2 L Immature Gran % (Auto) 0.4 Neut % (Auto) 68.9 Lymph % (Auto) 22.9 [place] % (Auto) 5.8 Eos % (Auto) 1.6 Baso % (Auto) 0.4 Lymph # (Auto) 1.2 [place] # (Auto) 0.3 Eos # (Auto) 0.1 Baso # (Auto) 0.0 Abs Immat Gran (auto) 0.02 Absolute Neuts (auto) 3.6 Absolute Nucleated RBC 0.000 Nucleated RBC % (auto) 0.0 Anion Gap 14 Estim Creat Clear Calc 126.6 Estimated GFR > 60 Random Glucose 96 Lactic Acid Calcium 8.5 Magnesium 2.1 Total Bilirubin 1.0 Direct Bilirubin 0.5 AST 566 H ALT 123 H Alkaline Phosphatase 92 Total Creatine Kinase Troponin I High Sens Total Protein 6.4 L Albumin 4.0 Procalcitonin Salicylates < 5.0 L Acetaminophen < 1 Ethyl Alcohol < 10 COVID-19 ([facility]) COVID-19 Clin Com 12/04/20 12/04/20 12/04/20 15:49 17:22 17:22 MCV MCH MCHC RDW Plt Count MPV Immature Gran % (Auto) Neut % (Auto) Lymph % (Auto) [place] % (Auto) Eos % (Auto) Baso % (Auto) Lymph # (Auto) [place] # (Auto) Eos # (Auto) Baso # (Auto) Abs Immat Gran (auto) Absolute Neuts (auto) Absolute Nucleated RBC Nucleated RBC % (auto) Anion Gap Estim Creat Clear Calc Estimated GFR Random Glucose Lactic Acid 0.9 Calcium Magnesium Total Bilirubin Direct Bilirubin AST ALT Alkaline Phosphatase Total Creatine Kinase Troponin I High Sens Total Protein Albumin Procalcitonin 0.07 Salicylates Acetaminophen Ethyl Alcohol COVID-19 (ZACK) Negative COVID-19 Clin Com See Note 12/04/20 12/04/20 12/04/20 17:23 17:23 20:15 MCV MCH MCHC RDW Plt Count MPV Immature Gran % (Auto) Neut % (Auto) Lymph % (Auto) [place] % (Auto) Eos % (Auto) Baso % (Auto) Lymph # (Auto) [place] # (Auto) Eos # (Auto) Baso # (Auto) Abs Immat Gran (auto) Absolute Neuts (auto) Absolute Nucleated RBC Nucleated RBC % (auto) Anion Gap Estim Creat Clear Calc Estimated GFR Random Glucose Lactic Acid Calcium Magnesium Total Bilirubin Direct Bilirubin AST ALT Alkaline Phosphatase Total Creatine Kinase 41374 H D Troponin I High Sens < 3.5 < 3.5 Total Protein Albumin Procalcitonin Salicylates Acetaminophen Ethyl Alcohol COVID-19 (ZACK) COVID-19 Clin Com Imaging Radiologist's Impressions: Impressions Head CT 12/04/20 15:05 IMPRESSION: No acute findings. Stable 1 cm fatty lesion in the right prepontine/posterior pentagonal cistern likely representing a lipoma or epidermoid. Chest X-Ray 12/04/20 16:27 IMPRESSION: Patchy right parahilar density likely developing infiltrate. Assessment and Plan (1) Altered mental status: Status: Resolved 40-year-old female with a past medical history of anxiety, depression, PTSD, bipolar, substance abuse, hep C, opiate dependence on methadone, history of colitis, CVA, JOSEPHINE secondary to rhabdomyolysis, history of suicidal/homicidal ideations presented to the hospital with a chief complaint of altered mental status Altered mental status: Multifactorial History significantly limited Patient is on Lamotrigine, Depakote, Topamax at home; unclear if he has any seizure history; unable to reach the patient's family. Patient had normal lactate levels; take less likely patient had any tonic-clonic seizure episode. Will obtain Depakote levels. Seizure, aspiration, fall precautions. Will obtain ammonia levels-as noted to have transaminitis and patient also on Depakote at home. NPO for now Poison control was notified by the ER. Currently unclear if the patient had any suicidal or homicidal ideations; patient is placed on 1 on 1 observation for safety. ER team/HALIMA and also mentioned that patient denied any suicidal ideations and patient mentioned that she took an extra dose of for pain. CT head showed no acute findings U tox pending Pneumonia: Chest x-ray showed infiltrates; suspected aspiration. Continue Zosyn. Transaminitis: Likely in the setting of rhabdomyolysis. Will also obtain CT abdomen and hepatitis panel. Rhabdomyolysis: Continue IV fluids. Nephrology consult. For all other chronic conditions, home medications will be continued once med rec is done. DVT prophylaxis: Subcu heparin Code status: Full code. Will defer to the a.m. team to readdress with the patient once she is more awake or family.
[2020-12-04 21:18] LABS: Anion Gap 12 (12-20); Blood Urea Nitrogen 15 mg/dL (9-16); Calcium 8.3 mg/dL (8.4-10.2); Carbon Dioxide 24 mmol/L (22-29); Chloride 111 mmol/L (96-108); Creatinine Clr Calc Pharmacy 121.2; Estimated Glomerular Filt Rate > 60; Glucose Random 96 mg/dL (60-115); Potassium 3.6 mmol/L (3.3-5.1); Sodium 143 mmol/L (135-145)
[2020-12-04 21:20] LABS: Glucose Urine UA NEG (NEG); Leukocyte Esterase Urine TRACE (NEG); Nitrite Urine NEG (NEG); UACC Culture Trigger YES; Urine Blood 1+ (NEG); Urine Ketones NEG (NEG); Urine Protein NEG (NEG-TRACE)
[2020-12-04 21:21] LABS: Appearance Urine CLEAR; Color Urine YELLOW
[2020-12-04 21:31] LABS: RBC Urine 0-2 /HPF (0); Squamous Epithelial Cell Urine 2+ /LPF
[2020-12-04 21:32] LABS: Bacteria Urine TRACE /LPF; Renal Epithelial Cells Urine TRACE /LPF
[2020-12-04 21:38] LABS: Amphetamine Screen Urine Not Detected (Not Detect); Barbiturates, Urine Not Detected (Not Detect); Benzodiazepines Screen Urine POSITIVE (Not Detect); Cannabinoid Screen Urine Not Detected (Not Detect); Cocaine Screen Urine POSITIVE (Not Detect); Opiate Screen Urine Not Detected (Not Detect); Phencyclidine Screen Urine Not Detected (Not Detect)
[2020-12-04] MEDS: Dextrose 5 % and 0.45 % NaCl 1,000 ML 100 ML IVCONT (21:57)
[2020-12-04] MEDS: Heparin Sodium,Porcine 5,000 UNIT/ML VIAL 5000 UNIT SUBCUT (21:57)
[2020-12-04 22:14] LABS: Alanine Aminotransferase 115 U/L (0-31); Albumin Level 3.7 g/dL (3.5-5.0); Alkaline Phosphatase 88 U/L (39-117); Aspartate Amino Transferase 484 U/L (5-31); Bilirubin Direct 0.4 mg/dL (0.0-0.5); Bilirubin Total 0.8 mg/dL (0.0-1.0)
[2020-12-04 22:50] LABS: Ammonia 33 umol/L (13-55)
[2020-12-04 23:04] LABS: Valproate < 2.0 mcg/mL (50.0-100.0)
[2020-12-04 23:13] LABS: Prothrombin Time 12.4 SEC (10.8-13.0)
[2020-12-04 23:16] LABS: Partial Thromboplastin Time 41.8 SEC (24.1-38.0)
[2020-12-05] VITALS (7 sets, daily range): BP systolic 101–122; BP diastolic 55–71; PULSE 72–83; RESP 14–18; TEMP 35.8–36.9; O2SAT 97–100; BMI 32.3
--- NOTE | 2020-12-05 | ECG_ITS ---
Test Reason : drug overdose r/o arrythmia Blood Pressure : / mmHG Vent. Rate : 079 BPM Atrial Rate : 079 BPM P-R Int : 186 ms QRS Dur : 074 ms QT Int : 406 ms P-R-T Axes : 057 031 028 degrees QTc Int : 465 ms Normal sinus rhythm Normal ECG When compared with ECG of 04-DEC-2020 21:29, No significant change was found Referred By: Robert Berry Electronically Signed By:BRANNON FRANKLIN MD
[2020-12-05] MEDS: Piperacillin Sodium/Tazobactam 3.375 GM in 0.9 % Sodium Chloride 50 ML IV ×4 (00:47→17:48)
[2020-12-05] MEDS: 0.9 % Sodium Chloride Flush 3 ML SYRINGE IVFLUSH (00:48)
[2020-12-05 07:59] LABS: Alanine Aminotransferase 102 U/L (0-31); Albumin Level 3.4 g/dL (3.5-5.0); Alkaline Phosphatase 78 U/L (39-117); Aspartate Amino Transferase 366 U/L (5-31); Bilirubin Direct 0.3 mg/dL (0.0-0.5); Bilirubin Total 0.8 mg/dL (0.0-1.0); Total Protein 5.6 g/dL (6.5-8.0)
[2020-12-05 08:26] LABS: HBc Num1 0.09 S/CO (0.00-0.79); Hepatitis A Antibody IgM 0.21 Index (0-0.79); Hepatitis B Core Antibody Nonreactive (Nonreactive); ~Hepatitis A Antibody IgM Nonreactive (Nonreactive)
[2020-12-05 08:37] LABS: Glucose, Whole Blood 130 mg/dL (60-115)
[2020-12-05 08:48] LABS: HBS Num1 > 1000.00 mIU/mL (0-7.99); HBsAGNum1 0.28 S/CO (0.00-0.99); Hepatitis B Surface Antigen Negative (Negative); ~Hepatitis B Surface Antibody REACTIVE (Nonreactive); ~Hepatitis C Antibody Reactive (Nonreactive)
[2020-12-05] MEDS: Heparin Sodium,Porcine 5,000 UNIT/ML VIAL 5000 UNIT SUBCUT (09:14)
[2020-12-05] MEDS: Dextrose 5 % and 0.45 % NaCl 1,000 ML 100 ML IVCONT ×2 (09:17→21:25)
--- NOTE | 2020-12-05 11:17 | MHC.CM.PN ---
CM spoke with mom/HCP Sarita [phone] by phone who reports patient is independent and was staying at the [facility] in [place] but left on Thursday. Patient with psych issues PTSD, Bipolar, polysubstance abuse and Hx SI/HI. Mom would like patient to go to inpatient psych stating [facility] was working with patient. CM requested psych eval while patient is here. Patient is also on methadone and goes to the [facility] in [facility]. Unknown PCP, CM will ask patient when she is more awake. CM will continue to follow for discharge needs.
--- NOTE | 2020-12-05 12:03 | P.CDIC_ITS ---
CDI Concurrent Query Service Date: 12/05/20 Documentation Clarification: Please clarify if you are treating a proba ble/suspected/likely or confirmed: Toxic Encephalopathy Acute Encephalopathy Metabolic Encephalopathy Please specify if known Provider Response: Toxic Encephalopathy PLEASE DO NOT DELETE/MODIFY EXISTING CONTENT Additional information is needed in order to code to the highest accuracy and appropriate Severity of Illness (SOI). Please clarify the information noted below in your progress notes and discharge summary. Risk Factors/Clinical Indicators/Treatments Altered mental status likely due to unknown substance ingestion, multiple psych meds and Methadone , long standing polysubstance abuse. Reports taking Flexeril and Methadone AMS slightly improved, pt mentioned she took extra dose for pain. CDS: Namita Shen CCS, CDIS Contact Number: [phone]. [phone] Please Review the information above and exercise your independent professional judgment in responding to the query. If you concur, pleas document in the PROGRESS NOTES and DISCHARGE SUMMARY. If you do not agree with the query, please document in the query above. THIS QUERY IS PART OF THE PERMANENT MEDICAL RECORD
[2020-12-05 14:24] LABS: Alanine Aminotransferase 104 U/L (0-31); Albumin Level 3.5 g/dL (3.5-5.0); Alkaline Phosphatase 90 U/L (39-117); Anion Gap 8 (12-20); Aspartate Amino Transferase 321 U/L (5-31); Bilirubin Total 0.6 mg/dL (0.0-1.0); Blood Urea Nitrogen 10 mg/dL (9-16); Calcium 8.3 mg/dL (8.4-10.2); Carbon Dioxide 25 mmol/L (22-29); Chloride 113 mmol/L (96-108); Creatinine Clr Calc Pharmacy 121.2; Estimated Glomerular Filt Rate > 60; Glucose Random 97 mg/dL (60-115); Magnesium 2.1 mg/dL (1.6-2.6); Potassium 3.7 mmol/L (3.3-5.1); Sodium 142 mmol/L (135-145); Total Protein 5.6 g/dL (6.5-8.0)
--- NOTE | 2020-12-05 15:13 | PC.NURSE ---
1400 security took belongings. Has bag in the ED
--- NOTE | 2020-12-05 15:40 | HO.PM.IMPN ---
Subjective Subjective Date of Service: 12/05/20 Interval History: Patient seen and examined at bedside Patient still remains lethargic but arousable Review of Systems Unable to obtain ROS due to patient's acute mental state Physical Exam Vital Signs: Vital Signs: Last Vital Signs Temp 97.9 F 12/05/20 12:00 Pulse 81 12/05/20 12:00 Resp 18 12/05/20 12:00 BP 112/59 L 12/05/20 12:00 Pulse Ox 99 12/05/20 12:00 Body Mass Index 32.3 Const: Other: Responsive only to painful stimuli General: patient obtunded Orientation/consciousness: patient obtunded HENMT: Head: Yes normal to inspection and Yes atraumatic Ears: hearing grossly normal bilaterally General nose exam: Normal external nose present Face and sinus: Yes normal facial exam Eyes: Other: Pupils slow to respond General: appearance normal, both eyes and all related structures EOM: EOMs intact bilaterally Neck: Neck: Yes normal visual inspection Chest: Chest palpation & inspection: normal inspection of the chest Resp: Effort & Inspection: normal respiratory effort Cardio: Other: Responsive only to painful stimuli Rate: regular rate GI: Inspection: Yes normal to inspection Palpation (GI): Soft to palpation and nontender Skin: Rashes: no rashes Wounds: no wounds Neuro: General: patient obtunded Doll's-Eye Reflex: Present Extrem: General: Yes normal to inspection Objective Data Current Medications Generic Name Dose Route Start Last Admin Trade Name Freq PRN Reason Stop Dose Admin Heparin Sodium (Porcine) 5,000 unit 12/04/20 21:00 12/05/20 09:14 Heparin Sodium,Porcine 5,000 Unit/Ml Vial SUBCUT 5,000 unit Q12H [facility] Administration Dextrose/Sodium Chloride 1,000 mls @ 100 mls/hr 12/04/20 21:00 12/05/20 09:17 D51/2ns IVCONT 100 mls/hr .Q10H [facility] Administration Piperacillin Sod/Tazobactam 50 mls @ 100 mls/hr 12/05/20 00:00 12/05/20 13:25 Sod 3.375 gm/ Sodium Chloride IV Infused Q6H [facility] Consult 1 each 12/04/20 20:25 Consult Rx Perform Med Rec MISCELLANE ONCE PRN Consult order Senna 17.2 mg 12/04/20 20:53 Sennosides 8.6 Mg Tablet PO BEDTIME PRN Constipation Sodium Chloride 3 ml 12/05/20 00:00 12/05/20 09:14 0.9 % Sodium Chloride Flush 3 Ml Syringe IVFLUSH Not Given QSHIFT [facility] Labs CBC & Chem 7: 12/04/20 15:49 12/05/20 13:43 Microbiology Microbiology Results: Microbiology 12/04/20 21:08 Urine clean catch - Clean Catch Midstream Urine Culture - Preliminary No growth to date. Assessment and Plan (1) Altered mental status: Status: Acute Assessment and Plan: 40-year-old female with a past medical history of anxiety, depression, PTSD, bipolar, substance abuse, hep C, opiate dependence on methadone, history of colitis, CVA, JOSEPHINE secondary to rhabdomyolysis, history of suicidal/homicidal ideations presented to the hospital with a chief complaint of altered mental status Toxic metabolic encephalopathy secondary to drug overdose Not clear which drugs patient overdosed Patient is on Lamotrigine, Depakote, Topamax at home Poison control was notified by the ER. CT head showed no acute findings U tox positive for cocaine and benzos Ammonia level was normal Monitor on hadoop architect mental status Monitor electrolytes and EKG Sitter at bedside Will get psych once medically cleared History of drug abuse On methadone Will verify dose with clinic Hold methadone given very lethargic Pneumonia: Chest x-ray showed infiltrates; suspected aspiration. Continue Zosyn Supportive management Transaminitis Trending down Hepatitis panel pending Monitor LFTs Rhabdomyolysis improving Continue IV fluids. Monitor CPK DVT prophylaxis: Subcu heparin
--- NOTE | 2020-12-05 18:15 | PM.CNNEP ---
History of Present Illness Reason for Consult Consult date: 12/05/20 Reason for consult: rhabdo Chief Complaint Chief complaint: AMS History of Present Illness Narrative: Aske to see pt for eval and assit in management of rhabdo with risk for ATN from rhabdo. 40-year-old female with a past medical history of polysubstance abuse, PTSD, history of hep C, opiate dependence, depression, bipolar, history of suicidal/homicidal ideations presented to the hospital with a chief complaint of altered mental status. Unclear whether she OD on her meds or took other subs. CPK approx 35,000 on adm and now grad decr with ivf to 15,000 and good UOP and SCr ok c/o pain from neck to low back. confused and denies taking any meds. Review of Systems Review of Systems Unable to obtain ROS due to patient's acute mental state Yes all other systems are reviewed and are negative [facility] Past Medical History Medical History (Updated 12/05/20 @ 01:34 by ALISON Franco) No known health problems Social History Social History Household Members: Unknown / Unable to assess Unable to assess alcohol history related to: Unknown Alcohol intake: former Smoking Status: Unknown if ever smoked Use of substances other than those prescribed or required for medical reasons: Unknown Substance Use Type: Crack/Cocaine and Heroin Currently Displaying Signs/Symptoms of Drug Intoxication Withdrawal: No Advance Directives: No Advance Directives Information Provided: Yes Do you have thoughts of harming others: None Do you have a plan to hurt others: No Plan service: No Current occupational status: unemployed Meds Allergies Allergy/AdvReac Type Severity Reaction Status Date / Time azithromycin [AZITHROMYCIN] Allergy Unknown UNK Verified 08/24/20 16:06 erythromycin base Allergy Unknown RASH Verified 08/24/20 16:06 [ERYTHROMYCIN BASE] olanzapine [From ZYPREXA] Allergy Unknown PEDAL EDEMA Verified 08/24/20 16:06 quetiapine [From SEROQUEL] Allergy Unknown THROAT Verified 08/24/20 16:06 SWELLING risperidone [From RISPERDAL] Allergy Unknown TWITCHING Verified 08/24/20 16:06 shellfish derived Allergy Unknown VOMITING Verified 08/24/20 16:06 [SHELLFISH DERIVED] sulfamethoxazole Allergy Unknown ITCHING Verified 08/24/20 16:06 [From BACTRIM] trimethoprim [From BACTRIM] Allergy Unknown ITCHING Verified 08/24/20 16:06 arithromiosin Allergy Unknown Unknown Uncoded 08/24/20 16:06 gluten Allergy Unknown Unknown Uncoded 08/24/20 16:06 sea food Allergy Unknown Unknown Uncoded 08/24/20 16:06 Sulfacet-R Allergy Unknown Unknown Uncoded 08/24/20 16:06 SEAFOOD AdvReac Unknown VOMIT Uncoded 06/07/20 15:47 Active Medications: Current Medications Generic Name Dose Route Start Last Admin Trade Name Freq PRN Reason Stop Dose Admin Heparin Sodium (Porcine) 5,000 unit 12/04/20 21:00 12/05/20 09:14 Heparin Sodium,Porcine 5,000 Unit/Ml Vial SUBCUT 5,000 unit Q12H EDER Administration Dextrose/Sodium Chloride 1,000 mls @ 100 mls/hr 12/04/20 21:00 12/05/20 09:17 D51/2ns IVCONT 100 mls/hr .Q10H EDER Administration Piperacillin Sod/Tazobactam 50 mls @ 100 mls/hr 12/05/20 00:00 12/05/20 17:48 Sod 3.375 gm/ Sodium Chloride IV 100 mls/hr Q6H EDER Administration Pharmacy Consult 1 each 12/04/20 20:25 Consult Rx Perform Med Rec MISCELLANE ONCE PRN Consult order Senna 17.2 mg 12/04/20 20:53 Sennosides 8.6 Mg Tablet PO BEDTIME PRN Constipation Sodium Chloride 3 ml 12/05/20 00:00 12/05/20 17:30 0.9 % Sodium Chloride Flush 3 Ml Syringe IVFLUSH Not Given QSHIFT [facility] Home Medications Medication Instructions Recorded Confirmed Last Taken Type aspirin 1 tab PO DAILY 12/04/20 12/04/20 Unknown History bupropion HCl 1 tab PO BID 12/04/20 12/04/20 Unknown History buspirone 1 tab PO BID 12/04/20 12/04/20 Unknown History cyanocobalamin (vitamin B-12) 1 tab PO DAILY 12/04/20 12/04/20 Unknown History [Vitamin B-12] cyclobenzaprine 1 tab PO TID 12/04/20 12/04/20 Unknown History diazepam 1 tab PO TID PRN 12/04/20 12/04/20 Unknown History diclofenac sodium 1 tab PO TID PRN 12/04/20 12/04/20 Unknown History ferrous sulfate 1 tab PO DAILY 12/04/20 12/04/20 Unknown History hydroxyzine pamoate 1 cap PO BID PRN 12/04/20 12/04/20 Unknown History lamotrigine 1 tab PO BID 12/04/20 12/04/20 Unknown History lamotrigine 2 tab PO DAILY 12/04/20 12/04/20 Unknown History loratadine 1 tab PO DAILY 12/04/20 12/04/20 Unknown History multivitamin [Daily-Angle] 1 tab PO DAILY 12/04/20 12/04/20 Unknown History propranolol 1 tab PO Q6H PRN 12/04/20 12/04/20 Unknown History topiramate 1 tab PO DAILY 12/04/20 12/04/20 Unknown History zolpidem 1 tab PO BEDTIME 12/04/20 12/04/20 Unknown History Physical Exam Vital Signs: Last Vital Signs Temp 98.0 F 12/05/20 15:28 Pulse 72 12/05/20 15:28 Resp 18 12/05/20 15:28 BP 116/62 12/05/20 15:28 Pulse Ox 98 12/05/20 15:28 Body Mass Index 32.3 HENMT Head: Yes normal to inspection and Yes atraumatic Ears: hearing grossly normal bilaterally General nose exam: Normal external nose present Face and sinus: Yes normal facial exam Eyes Other: awakens to verbal stimuli and talks but confused General: appearance normal, both eyes and all related structures EOM: EOMs intact bilaterally Neck Neck: Yes normal visual inspection Chest Chest palpation & inspection: normal inspection of the chest Resp Effort & Inspection: normal respiratory effort Cardio Other: Responsive only to painful stimuli Rate: regular rate GI Inspection: Yes normal to inspection Palpation (GI): Soft to palpation and nontender Skin Rashes: no rashes Wounds: no wounds Neuro Doll's-Eye Reflex: Present Extrem General: Yes normal to inspection Results Lab Results Result Diagrams: 12/04/20 15:49 12/05/20 13:43 Lab results: Chemistry 12/04/20 12/04/20 12/05/20 15:49 20:15 13:43 Sodium 140 143 142 Potassium 3.6 3.6 3.7 Carbon Dioxide 21 L 24 25 BUN 17 H 15 10 Creatinine 0.68 0.71 0.71 Calcium 8.5 8.3 L 8.3 L Hematology 12/04/20 15:49 WBC 5.2 Hgb 12.0 Plt Count 119 L Urinalysis 12/04/20 21:08 Urine Color YELLOW Urine Appearance CLEAR Urine pH 7.0 Ur Specific [place] 1.010 Urine Protein NEG Urine Glucose (UA) NEG Urine Ketones NEG Urine Blood 1+ H Urine Nitrite NEG Ur Leukocyte Esterase TRACE H Urine RBC 0-2 Urine WBC 5-9 H Ur Squamous Epith Cells 2+ Assessment and Plan (1) Altered mental status: Status: Acute 40-year-old female with a past medical history of anxiety, depression, PTSD, bipolar, substance abuse, hep C, opiate dependence on methadone, history of colitis, CVA, JOSEPHINE secondary to rhabdomyolysis, history of suicidal/homicidal ideations presented to the hospital with a chief complaint of altered mental status seveer rhabdo: no evid of ATN with good uop and SCr reemains stable; suspect rhabdo d/t frug OD andor muscle injury for comatose state prior to being drought to hosp REC: cont ivf to maintainuop 100ml/hr and may need to alkalinze the urine with ivf nahco3 if scr incr or urne ph <5.0 but at this time with cpkdecr less likely she will develop atn will follow with team
[2020-12-05] MEDS: Ibuprofen 400 MG TABLET PO (21:23)
--- NOTE | 2020-12-05 21:58 | PC.NURSE ---
P-patient refused Heparin I-risks explained to patient,dr. garg notified E-encoraged activity
[2020-12-06] MEDS: Piperacillin Sodium/Tazobactam 3.375 GM in 0.9 % Sodium Chloride 50 ML IV ×5 (00:07→23:37)
[2020-12-06] MEDS: 0.9 % Sodium Chloride Flush 3 ML SYRINGE IVFLUSH ×4 (00:08→23:38)
[2020-12-06 04:00] VITALS: BP 127/70; PULSE 64; RESP 18; TEMP 36.6; O2SAT 97
[2020-12-06 06:27] LABS: Glucose Urine UA NEG (NEG); Leukocyte Esterase Urine 1+ (NEG); Nitrite Urine NEG (NEG); PH 7.5 (5.0-8.0); Urine Blood NEG (NEG); Urine Ketones NEG (NEG); Urine Protein NEG (NEG-TRACE)
[2020-12-06 06:28] LABS: Appearance Urine CLEAR; Color Urine YELLOW
[2020-12-06 06:34] LABS: Bacteria Urine TRACE /LPF; RBC Urine 0 /HPF (0); Squamous Epithelial Cell Urine 2+ /LPF
[2020-12-06 07:32] VITALS: BP 130/74; PULSE 65; RESP 20; TEMP 36.2; O2SAT 100
[2020-12-06] MEDS: Dextrose 5 % and 0.45 % NaCl 1,000 ML 100 ML IVCONT ×2 (07:57→18:14)
[2020-12-06] MEDS: Multivitamin TABLET 1 TAB PO (07:59)
[2020-12-06] MEDS: Aspirin 81 MG TAB.CHEW PO (07:59)
[2020-12-06] MEDS: Ferrous Sulfate 324 MG TABLET.DR PO (07:59)
[2020-12-06] MEDS: Topiramate 100 MG TABLET 200 MG PO (07:59)
[2020-12-06 11:16] VITALS: BP 131/79; PULSE 71; RESP 18; TEMP 36.6; O2SAT 99
--- NOTE | 2020-12-06 15:02 | HO.PM.IMPN ---
Subjective Subjective Date of Service: 12/06/20 Interval History: Patient seen and examined at bedside Patient is more awake and alert today feeling depressed Review of Systems Unable to obtain ROS due to patient's acute mental state Physical Exam Vital Signs: Vital Signs: Last Vital Signs Temp 97.8 F 12/06/20 11:16 Pulse 71 12/06/20 11:16 Resp 18 12/06/20 11:16 BP 131/79 12/06/20 11:16 Pulse Ox 99 12/06/20 11:16 Body Mass Index 32.3 Const: General: no acute distress HENMT: Head: Yes normal to inspection and Yes atraumatic Ears: hearing grossly normal bilaterally General nose exam: Normal external nose present Face and sinus: Yes normal facial exam Eyes: General: appearance normal, both eyes and all related structures EOM: EOMs intact bilaterally Neck: Neck: Yes normal visual inspection Chest: Chest palpation & inspection: normal inspection of the chest Resp: Effort & Inspection: normal respiratory effort Cardio: Rate: regular rate GI: Inspection: Yes normal to inspection Palpation (GI): Soft to palpation and nontender Skin: Rashes: no rashes Wounds: no wounds Neuro: Doll's-Eye Reflex: Present Extrem: General: Yes normal to inspection Objective Data Current Medications Generic Name Dose Route Start Last Admin Trade Name Freq PRN Reason Stop Dose Admin Aspirin 81 mg 12/06/20 09:00 12/06/20 07:59 Aspirin 81 Mg Tab.Chew PO 81 mg DAILY EDER Administration Ferrous Sulfate 324 mg 12/06/20 09:00 12/06/20 07:59 Ferrous Sulfate 324 Mg Tablet.Dr PO 324 mg DAILY EDER Administration Heparin Sodium (Porcine) 5,000 unit 12/04/20 21:00 12/06/20 08:06 Heparin Sodium,Porcine 5,000 Unit/Ml Vial SUBCUT Not Given Q12H EDER Dextrose/Sodium Chloride 1,000 mls @ 100 mls/hr 12/04/20 21:00 12/06/20 07:57 D51/2ns IVCONT 100 mls/hr .Q10H EDER Administration Piperacillin Sod/Tazobactam 50 mls @ 100 mls/hr 12/05/20 00:00 12/06/20 12:06 Sod 3.375 gm/ Sodium Chloride IV Infused Q6H [facility] Infusion Lidocaine 1 patch 12/06/20 09:00 12/06/20 08:05 Lidocaine 4 % Patch Adh..Patch TRANSDERMA Not Given DAILY EDER Protocol Methadone HCl 120 mg 12/06/20 10:15 12/06/20 11:13 Methadone Hcl 1 Mg/0.1 Ml Oral.Conc PO 120 mg DAILY EDER Administration Multivitamins/Vitamin C 1 tab 12/06/20 09:00 12/06/20 07:59 Multivitamin Tablet PO 1 tab DAILY EDER Administration Pharmacy Consult 1 each 12/04/20 20:25 Consult Rx Perform Med Rec MISCELLANE ONCE PRN Consult order Propranolol HCl 20 mg 12/05/20 18:26 Propranolol Hcl 20 Mg Tablet PO Q6H PRN moderate ANXIETY Protocol Senna 17.2 mg 12/04/20 20:53 Sennosides 8.6 Mg Tablet PO BEDTIME PRN Constipation Sodium Chloride 3 ml 12/05/20 00:00 12/06/20 07:59 0.9 % Sodium Chloride Flush 3 Ml Syringe IVFLUSH 3 ml QSHIFT EDER Administration Topiramate 200 mg 12/06/20 09:00 12/06/20 07:59 Topiramate 100 Mg Tablet PO 200 mg DAILY EDER Administration Labs CBC & Chem 7: 12/04/20 15:49 12/05/20 13:43 Microbiology Microbiology Results: Microbiology 12/04/20 21:08 Urine clean catch - Clean Catch Midstream Urine Culture - Final No growth. 12/04/20 17:23 Blood - Venous Blood Culture - Preliminary No growth after 24 hours. 12/04/20 17:23 Blood - Venous Blood Culture - Preliminary No growth after 24 hours. Assessment and Plan (1) Altered mental status: Status: Acute Assessment and Plan: 40-year-old female with a past medical history of anxiety, depression, PTSD, bipolar, substance abuse, hep C, opiate dependence on methadone, history of colitis, CVA, JOSEPHINE secondary to rhabdomyolysis, history of suicidal/homicidal ideations presented to the hospital with a chief complaint of altered mental status Toxic metabolic encephalopathy secondary to drug overdose improving Not clear which drugs patient overdosed Patient is on Lamotrigine, Depakote, Topamax at home Poison control was notified by the ER. CT head showed no acute findings U tox positive for cocaine and benzos Ammonia level was normal Monitor on telemetry more awake and alert today Monitor mental status Monitor electrolytes and EKG Sitter at bedside Will get psych and BHN once medically cleared History of drug abuse continue methadone Pneumonia: Chest x-ray showed infiltrates; suspected aspiration. Continue Zosyn Supportive management Transaminitis Trending down Hepatitis panel pending Monitor LFTs labs pending from today Rhabdomyolysis improving Continue IV fluids. Monitor CPK labs pending from today DVT prophylaxis: Subcu heparin
[2020-12-06 15:33] VITALS: BP 101/59; PULSE 74; RESP 18; TEMP 36.8; O2SAT 95
[2020-12-06 16:44] LABS: Anion Gap 12 (12-20); Blood Urea Nitrogen 7 mg/dL (9-16); Calcium 8.5 mg/dL (8.4-10.2); Carbon Dioxide 21 mmol/L (22-29); Chloride 110 mmol/L (96-108); Creatinine Clr Calc Pharmacy 128.4; Estimated Glomerular Filt Rate > 60; Glucose Random 121 mg/dL (60-115); Potassium 3.7 mmol/L (3.3-5.1); Sodium 139 mmol/L (135-145)
[2020-12-06 19:06] VITALS: BP 106/57; PULSE 75; RESP 18; TEMP 36.3; O2SAT 97
[2020-12-06 23:55] VITALS: BP 118/69; PULSE 63; RESP 18; TEMP 36.4; O2SAT 100
[2020-12-07] VITALS (7 sets, daily range): BP systolic 105–122; BP diastolic 58–73; PULSE 62–71; RESP 16–18; TEMP 36.1–37; O2SAT 95–99
[2020-12-07] MEDS: Dextrose 5 % and 0.45 % NaCl 1,000 ML 100 ML IVCONT (04:21)
[2020-12-07] MEDS: Piperacillin Sodium/Tazobactam 3.375 GM in 0.9 % Sodium Chloride 50 ML IV (05:49)
--- NOTE | 2020-12-07 06:47 | PC.NURSE ---
SPOKE WITH HOSPITALIST ON DUTY AT [employer] 0100, DISCUSSED ORDERS, IVF AND ALL IV MEDS VERSUS 24 HOURS PREVIOUS WHEN NOT OVERLOADING WHEN BP LOW SECONDARY TO CHF. VITALS ARE MUCH IMPROVED AND MD AWARE OF ALL ORDERS PT UPDATE GIVEN.
[2020-12-07] MEDS: Multivitamin TABLET 1 TAB PO (08:34)
[2020-12-07] MEDS: Ferrous Sulfate 324 MG TABLET.DR PO (08:34)
[2020-12-07] MEDS: Topiramate 100 MG TABLET 200 MG PO (08:36)
[2020-12-07] MEDS: Heparin Sodium,Porcine 5,000 UNIT/ML VIAL 5000 UNIT SUBCUT (08:37)
[2020-12-07] MEDS: Aspirin 81 MG TAB.CHEW PO (09:13)
[2020-12-07 10:31] LABS: Alanine Aminotransferase 104 U/L (0-31); Albumin Level 3.6 g/dL (3.5-5.0); Alkaline Phosphatase 102 U/L (39-117); Anion Gap 12 (12-20); Aspartate Amino Transferase 161 U/L (5-31); Bilirubin Direct 0.2 mg/dL (0.0-0.5); Bilirubin Total 0.4 mg/dL (0.0-1.0); Blood Urea Nitrogen 6 mg/dL (9-16); Calcium 8.5 mg/dL (8.4-10.2); Carbon Dioxide 22 mmol/L (22-29); Chloride 110 mmol/L (96-108); Creatinine Clr Calc Pharmacy 111.8; Estimated Glomerular Filt Rate > 60; Glucose Random 118 mg/dL (60-115); Potassium 4.2 mmol/L (3.3-5.1); Sodium 140 mmol/L (135-145); Total Protein 6.1 g/dL (6.5-8.0)
[2020-12-07] MEDS: diazePAM 5 MG TABLET PO (13:08)
--- NOTE | 2020-12-07 13:18 | MHC.CM.PN ---
Patient is nore alert and oriented today. Discussed discharge plan, patient states she lives with a friend on [address] in [place] and wants to return there. Patient will need bus passes. Home no services. Patient will be seen by BHN when medically cleared. CM will continue to follow patient for discharge needs.
[2020-12-07] MEDS: lamoTRIgine 25 MG TABLET 50 MG PO (16:23)
--- NOTE | 2020-12-07 16:58 | P.PNIM_ITS ---
Subjective Subjective Date of Service: 12/07/20 Interval History: Patient seen and examined at bedside Patient is more awake and alert today Physical Exam Vital Signs: Vital Signs: Last Vital Signs Temp 97.1 F 12/07/20 15:52 Pulse 66 12/07/20 15:52 Resp 16 12/07/20 15:52 BP 120/66 12/07/20 15:52 Pulse Ox 97 12/07/20 15:52 Body Mass Index 32.3 Const: General: no acute distress HENMT: Head: Yes normal to inspection and Yes atraumatic Ears: hearing grossly normal bilaterally General nose exam: Normal external nose present Face and sinus: Yes normal facial exam Eyes: General: appearance normal, both eyes and all related structures EOM: EOMs intact bilaterally Neck: Neck: Yes normal visual inspection Chest: Chest palpation & inspection: normal inspection of the chest Resp: Effort & Inspection: normal respiratory effort Cardio: Rate: regular rate GI: Inspection: Yes normal to inspection Palpation (GI): Soft to palpation and nontender Skin: Rashes: no rashes Wounds: no wounds Neuro: Doll's-Eye Reflex: Present Extrem: General: Yes normal to inspection Objective Data Current Medications Generic Name Dose Route Start Last Admin Trade Name Freq PRN Reason Stop Dose Admin Aspirin 81 mg 12/06/20 09:00 12/07/20 09:13 Aspirin 81 Mg Tab.Chew PO 81 mg DAILY EDER Administration Bupropion HCl 300 mg 12/08/20 09:00 Bupropion Hcl Xl 300 Mg Tab.Er.24h PO DAILY EDER Buspirone HCl 30 mg 12/07/20 21:00 Buspirone Hcl 10 Mg Tablet PO BID EDER Diazepam 5 mg 12/07/20 12:36 12/07/20 13:08 Diazepam 5 Mg Tablet PO 5 mg TID PRN Administration Anxiety Ferrous Sulfate 324 mg 12/06/20 09:00 12/07/20 08:34 Ferrous Sulfate 324 Mg Tablet.Dr PO 324 mg DAILY EDER Administration Heparin Sodium (Porcine) 5,000 unit 12/04/20 21:00 12/07/20 08:37 Heparin Sodium,Porcine 5,000 Unit/Ml Vial SUBCUT 5,000 unit Q12H EDER Administration Hydroxyzine HCl 50 mg 12/07/20 14:04 Hydroxyzine Hcl 50 Mg Tablet PO BID PRN anxiety Dextrose/Sodium Chloride 1,000 mls @ 100 mls/hr 12/04/20 21:00 12/07/20 15:54 D51/2ns IVCONT Infused .Q10H EDER Infusion Lamotrigine 150 mg 12/07/20 21:00 Lamotrigine 25 Mg Tablet PO BID EDER Lamotrigine 50 mg 12/07/20 14:15 12/07/20 16:23 Lamotrigine 25 Mg Tablet PO 50 mg DAILY EDER Administration Lidocaine 1 patch 12/06/20 09:00 12/07/20 09:14 Lidocaine 4 % Patch Adh..Patch TRANSDERMA Not Given DAILY [facility] Protocol Methadone HCl 120 mg 12/06/20 10:15 12/07/20 08:32 Methadone Hcl 1 Mg/0.1 Ml Oral.Conc PO 120 mg DAILY [facility] Administration Multivitamins/Vitamin C 1 tab 12/06/20 09:00 12/07/20 08:34 Multivitamin Tablet PO 1 tab DAILY EDER Administration Nicotine Polacrilex 2 mg 12/06/20 23:17 12/07/20 12:15 Nicotine Polacrilex 2 Mg Lozenge BUCCAL 2 mg Q2H PRN Administration nicotine withsrawal Pharmacy Consult 1 each 12/04/20 20:25 Consult Rx Perform Med Rec MISCELLANE ONCE PRN Consult order Propranolol HCl 20 mg 12/05/20 18:26 Propranolol Hcl 20 Mg Tablet PO Q6H PRN moderate ANXIETY Protocol Senna 17.2 mg 12/04/20 20:53 Sennosides 8.6 Mg Tablet PO BEDTIME PRN Constipation Sodium Chloride 3 ml 12/05/20 00:00 12/07/20 08:38 0.9 % Sodium Chloride Flush 3 Ml Syringe IVFLUSH Not Given QSHIFT [facility] Topiramate 200 mg 12/06/20 09:00 12/07/20 08:36 Topiramate 100 Mg Tablet PO 200 mg DAILY [facility] Administration Zolpidem Tartrate 5 mg 12/07/20 21:00 Zolpidem Tartrate 5 Mg Tablet PO BEDTIME [facility] Labs CBC & Chem 7: 12/04/20 15:49 12/07/20 09:51 Microbiology Microbiology Results: Microbiology 12/04/20 17:23 Blood - Venous Blood Culture - Preliminary No growth after 48 hours. 12/04/20 17:23 Blood - Venous Blood Culture - Preliminary No growth after 48 hours. 12/04/20 21:08 Urine clean catch - Clean Catch Midstream Urine Culture - Final No growth. Assessment and Plan (1) Altered mental status: Status: Acute Assessment and Plan: 40-year-old female with a past medical history of anxiety, depression, PTSD, bipolar, substance abuse, hep C, opiate dependence on methadone, history of co litis, CVA, JOSEPHINE secondary to rhabdomyolysis, history of suicidal/homicidal ideations presented to the hospital with a chief complaint of altered mental status Toxic metabolic encephalopathy secondary to drug overdose resolving patient is more awake and alert Not clear which drugs patient overdosed U tox was positive for cocaine and there was question of fentanyl overdose Patient is on Lamotrigine, Depakote, Topamax at home Poison control was notified by the ER. CT head showed no acute findings U tox positive for cocaine and benzos Ammonia level was normal Monitor on telemetry more awake and alert today Sitter at bedside psych team was consulted History of drug abuse continue methadone Pneumonia: Chest x-ray showed infiltrates; suspected aspiration. Continue Zosyn Supportive management Transaminitis CT abdomen shows CBD dilatation Trending down Hepatitis panel positive for hep C Monitor LFTs GI consult requested Rhabdomyolysis improving received fluid Monitor CPK history of mood disorder started on psych medication DVT prophylaxis: Subcu heparin
[2020-12-07] MEDS: Cyclobenzaprine HCl 10 MG TABLET PO ×2 (17:41→20:56)
--- NOTE | 2020-12-07 18:04 | PM.EVENT ---
Event Note Date of Service: 12/07/20 Event Note: GI Consult-Full note dictated-Hx via patient and EMR. Imp: 40 yo female with history of untreated chronic Hep C, ongoing substance abuse based on her tox screen, and rhabdomyolysis who has been noted to have elevated transaminases. She denies any GI sx nor abdominal pain.She is eating comfortably. Her liver enzymes are improving and were primarily AST>ALT. Her TBili and Alk phos have been normal. CT and U/S reveal mildly dilated biliary tree, but the gallbladder and pancreas are normal. Suspect the elevated liver enzymes are due to substance abuse, i.e.: cocaine. The elevated AST mayalso be from skeletal muscle as well, given the rhabdomyolysis. I don't think this reflects any true biliary disease, but a MRCP can be done electively at some point as an outpatient. She does not show any signs of liver failure at this time. Rec: Supportive care, F/U labs in AM, outpatient MRCP. I advised her to avoid all drugs and to F/U with her PCP re: treatment of the Hep C. D/W patient in detail and she is comfortable with this plan. Thanks
--- NOTE | 2020-12-07 18:16 | PC.NURSE ---
Pt's IV became infiltrated and was removed. She refused to have another put in. notified.
--- NOTE | 2020-12-07 18:21 | PM.PSYCN ---
History of Present Illness Date of Service: 12/07/2020 Chief Complaint: AMS Reason for Consult: OD?SI? Requesting physician: Robert Berry Discussed with referring provider: Yes Sources of Information: patient interviewed, chart reviewed and crisis/core team assessment reviewed Additional Sources of Information: pending pt mother's Meghan collateral- VM left today HPI Narrative: Ms. Sebastian is a 40 year-old woman with extensive history of substance use, Bipolar Disorder and inpatient psychiatric admission. Ms. Sebastian was brought to [facility] ED on 12/04/2020 via EMS after 911 was called as patient appeared somnolent/variable levels of consciousness while in a public place in [place]. In the ED, pt presented as responsive only to painful stimuli. Note that urine toxicology did not include synthetic opiates- NOT clear if pt had fentanyl. Of note- according to [facility], pt received 11 take home doses of 125mg methadone on 11/29/2020. Pt was not narcaned. Her Utox was positive for cocaine and benzos. In the ED, she was also found to have JOSEPHINE secondary to rhabdomyolosis, transaminatis and pneumonia (most likely aspiration). Initial EKG on arrival to ED, showed Qtc prolongation 502ms;follow up EKG on 12/05/2020 showed improved Qtc at 456ms. She is well known to [address] through several admissions. Pt was minimally responsive only to painful stimulus for about 24 hrs. RR on 12/04 fluctuated between 9-12. Today, pt was seen in her room. She was somewhat agitated with nursing stating that I want answers. Pt somewhat upset but re-directable. Pt presents as somewhat hyperverbal with moderate pressured speech. She reports she does not remember much about how she got here. She reports she remembers being at [employer] in [place] and not feeling well (states back pain/difficulty walking). She denies using cocaine or opioids including fentanyl. At the same time, pt very guarded and worried that hospital may be considering section 35. She reports she has been recently sectioned August, then transition to [facility] in [place] at [facility], was asked to leave few weeks ago because she had altercation with peers. She reports going to a friend's house and renting a room there. She adamantly denies suicidal ideation current or recently prior to coming to ED. She denies taking extra medications including the ones she was prescribed prior to being brought to ED. She also adamantly denies she attempted suicide and overdosed. Pt psychotropic medications include lamictal, wellbutrin, diazepam and buspar. She presents as future oriented, wanting a better life, her affect does brighten up when she talks about getting my life back, being there for my children's birthday that is coming up in December. [facility] Medical History (Updated 12/07/20 @ 19:33 by Gretchen Patel) No known health problems Diagnostics Vital Signs (24Hr): Vital Signs - 24 hr 12/06/20 19:06 12/06/20 23:55 12/07/20 04:00 Temperature 97.3 F 97.6 F 97.2 F Pulse Rate 75 63 71 Respiratory Rate 18 18 18 Blood Pressure 106/57 L 118/69 105/58 L Pulse Oximetry 97 100 99 12/07/20 07:09 12/07/20 11:52 12/07/20 12:01 Temperature 98.6 F 97.0 F 97.0 F Pulse Rate 67 62 Respiratory Rate 16 18 Blood Pressure 113/63 119/73 Pulse Oximetry 99 95 12/07/20 15:52 Temperature 97.1 F Pulse Rate 66 Respiratory Rate 16 Blood Pressure 120/66 Pulse Oximetry 97 Body Mass Index 32.3 Labs Results: 12/04/20 15:49 12/07/20 09:51 Labs: Laboratory Results - last 48 hr 12/06/20 12/06/20 12/06/20 06:11 16:04 16:04 Sodium 139 Potassium 3.7 Chloride 110 H Carbon Dioxide 21 L Anion Gap 12 BUN 7 L Creatinine 0.67 Estim Creat Clear Calc 128.4 Estimated GFR > 60 Random Glucose 121 H Calcium 8.5 Total Bilirubin Direct Bilirubin AST ALT Alkaline Phosphatase Total Creatine Kinase 6627 H D Total Protein Albumin Urine Color YELLOW Urine Appearance CLEAR Urine pH 7.5 Ur Specific [place] 1.010 Urine Protein NEG Urine Glucose (UA) NEG Urine Ketones NEG Urine Blood NEG Urine Nitrite NEG Ur Leukocyte Esterase 1+ H Urine RBC 0 Urine WBC 1-4 Ur Squamous Epith Cells 2+ Urine Bacteria TRACE 12/07/20 12/07/20 09:51 09:51 Sodium 140 Potassium 4.2 Chloride 110 H Carbon Dioxide 22 Anion Gap 12 BUN 6 L Creatinine 0.77 Estim Creat Clear Calc 111.8 Estimated GFR > 60 Random Glucose 118 H Calcium 8.5 Total Bilirubin 0.4 Cancelled Direct Bilirubin 0.2 Cancelled AST 161 H Cancelled ALT 104 H Cancelled Alkaline Phosphatase 102 Cancelled Total Creatine Kinase Total Protein 6.1 L Cancelled Albumin 3.6 Cancelled Urine Color Urine Appearance Urine pH Ur Specific [place] Urine Protein Urine Glucose (UA) Urine Ketones Urine Blood Urine Nitrite Ur Leukocyte Esterase Urine RBC Urine WBC Ur Squamous Epith Cells Urine Bacteria Imaging Radiology Impressions: ITS Impressions Head CT 12/04/20 15:05 IMPRESSION: No acute findings. Stable 1 cm fatty lesion in the right prepontine/posterior pentagonal cistern likely representing a lipoma or epidermoid. Chest X-Ray 12/04/20 16:27 IMPRESSION: Patchy right parahilar density likely developing infiltrate. Abdomen/Pelvis CT 12/04/20 21:26 IMPRESSION: 1. The common bile duct is dilated and there is minimal intrahepatic biliary duct dilatation. The gallbladder is normal in appearance. No definitive gallstones or choledocholithiasis visualized, however, MRI/MRCP may be warranted. 2. Diffusely decreased liver attenuation suggesting hepatic steatosis. Correlation with liver enzymes recommended. 3. Mild splenomegaly. 4. Significantly distended bladder. Mild prominence of both collecting systems is suspected to be secondary to bladder distention. No obstructing calculi. Abdomen Ultrasound 12/07/20 10:40 IMPRESSION: Mild intra and extrahepatic biliary duct dilatation. The proximal common bile duct measures 1.2 cm. The distal common bile duct in head of the pancreas are not well visualized. Echogenic liver probably suggestive of fatty infiltration. Mental Status Exam Mental Status Exam Narrative: Appearance: wearing hospital gown, fair hygiene, somewhat agitated but able to calm down Behavior: initially guarded but later more cooperative Psychomotor: some agitation noted Speech: clear, pressured speech, hyperverbal, loud at times, spontaneous TP: tangential TC: no signs of psychosis, future oriented Mood: frustrated Affect: congruent, somewhat dysphoric at times VH/AH: none delusions: none Insight/judgment: poor x 2. Memory/cog: alert, oriented x 3. grossly intact to conversational testing Medications Medications Current Medications Generic Name Dose Route Start Last Admin Trade Name Freq PRN Reason Stop Dose Admin Aspirin 81 mg 12/06/20 09:00 12/07/20 09:13 Aspirin 81 Mg Tab.Chew PO 81 mg DAILY EDER Administration Bupropion HCl 300 mg 12/08/20 09:00 Bupropion Hcl Xl 300 Mg Tab.Er.24h PO DAILY EDER Buspirone HCl 30 mg 12/07/20 21:00 Buspirone Hcl 10 Mg Tablet PO BID EDER Cyclobenzaprine HCl 10 mg 12/07/20 16:58 12/07/20 17:41 Cyclobenzaprine Hcl 10 Mg Tablet PO 10 mg TID EDER Administration Diazepam 5 mg 12/07/20 12:36 12/07/20 13:08 Diazepam 5 Mg Tablet PO 5 mg TID PRN Administration Anxiety Ferrous Sulfate 324 mg 12/06/20 09:00 12/07/20 08:34 Ferrous Sulfate 324 Mg Tablet.Dr PO 324 mg DAILY EDER Administration Heparin Sodium (Porcine) 5,000 unit 12/04/20 21:00 12/07/20 08:37 Heparin Sodium,Porcine 5,000 Unit/Ml Vial SUBCUT 5,000 unit Q12H EDER Administration Hydroxyzine HCl 50 mg 12/07/20 14:04 Hydroxyzine Hcl 50 Mg Tablet PO BID PRN anxiety Dextrose/Sodium Chloride 1,000 mls @ 100 mls/hr 12/04/20 21:00 12/07/20 15:54 D51/2ns IVCONT Infused .Q10H EDER Infusion Lamotrigine 150 mg 12/07/20 21:00 Lamotrigine 25 Mg Tablet PO BID EDER Lamotrigine 50 mg 12/07/20 14:15 12/07/20 16:23 Lamotrigine 25 Mg Tablet PO 50 mg DAILY EDER Administration Lidocaine 1 patch 12/06/20 09:00 12/07/20 09:14 Lidocaine 4 % Patch Adh..Patch TRANSDERMA Not Given DAILY [facility] Protocol Loratadine 10 mg 12/08/20 09:00 Loratadine 10 Mg Tablet PO DAILY [facility] Methadone HCl 120 mg 12/06/20 10:15 12/07/20 08:32 Methadone Hcl 1 Mg/0.1 Ml Oral.Conc PO 120 mg DAILY EDER Administration Multivitamins/Vitamin C 1 tab 12/06/20 09:00 12/07/20 08:34 Multivitamin Tablet PO 1 tab DAILY [facility]ER Administration Nicotine Polacrilex 2 mg 12/06/20 23:17 12/07/20 12:15 Nicotine Polacrilex 2 Mg Lozenge BUCCAL 2 mg Q2H PRN Administration nicotine withsrawal Pharmacy Consult 1 each 12/04/20 20:25 Consult Rx Perform Med Rec MISCELLANE ONCE PRN Consult order Propranolol HCl 20 mg 12/05/20 18:26 Propranolol Hcl 20 Mg Tablet PO Q6H PRN moderate ANXIETY Protocol Senna 17.2 mg 12/04/20 20:53 Sennosides 8.6 Mg Tablet PO BEDTIME PRN Constipation Sodium Chloride 3 ml 12/05/20 00:00 12/07/20 17:14 0.9 % Sodium Chloride Flush 3 Ml Syringe IVFLUSH Not Given QSHIFT EDER Topiramate 200 mg 12/06/20 09:00 12/07/20 08:36 Topiramate 100 Mg Tablet PO 200 mg DAILY EDER Administration Zolpidem Tartrate 5 mg 12/07/20 21:00 Zolpidem Tartrate 5 Mg Tablet PO BEDTIME EDER Allergies Allergies Allergy/AdvReac Type Severity Reaction Status Date / Time azithromycin [AZITHROMYCIN] Allergy Unknown UNK Verified 08/24/20 16:06 erythromycin base Allergy Unknown RASH Verified 08/24/20 16:06 [ERYTHROMYCIN BASE] olanzapine [From ZYPREXA] Allergy Unknown PEDAL EDEMA Verified 08/24/20 16:06 quetiapine [From SEROQUEL] Allergy Unknown THROAT Verified 08/24/20 16:06 SWELLING risperidone [From RISPERDAL] Allergy Unknown TWITCHING Verified 08/24/20 16:06 shellfish derived Allergy Unknown VOMITING Verified 08/24/20 16:06 [SHELLFISH DERIVED] sulfamethoxazole Allergy Unknown ITCHING Verified 08/24/20 16:06 [From BACTRIM] trimethoprim [From BACTRIM] Allergy Unknown ITCHING Verified 08/24/20 16:06 arithromiosin Allergy Unknown Unknown Uncoded 08/24/20 16:06 gluten Allergy Unknown Unknown Uncoded 08/24/20 16:06 sea food Allergy Unknown Unknown Uncoded 08/24/20 16:06 Sulfacet-R Allergy Unknown Unknown Uncoded 08/24/20 16:06 SEAFOOD AdvReac Unknown VOMIT Uncoded 06/07/20 15:47 Assessment & Plan Assessment & Plan (1) Cocaine abuse: Status: Acute Code(s): F14.10 - Cocaine abuse, uncomplicated (2) Opioid dependence: Status: Acute Code(s): F11.20 - Opioid dependence, uncomplicated Recommendations: Ms. Sebastian is 40 year-old woman with extensive hx of polysubstance use, bipolar. She presented via EMS, lethargic, responsive only to painful stimuli for about 24 hrs. Utox done in ED is limited as it did not include synthetic opioids including fentanyl. Also note that pt received on 11/29/2020 11 take home doses of methadone 125mg - confirmed by [facility]. In ED, RR 9-12, with HOTN. slowed to respond pupils. In cases of benzodiazepine OD, usually VS wnl. OD with other psych meds such as lamictal, wellbutrin would not explained level of lethargy. Also note Qtc prolongation in ED, that has resolved even with daily high dose of methadone maintainace pt is on. Pt was not narcaned at anypoint to r/o possible opioid overdose. Upon evaluation of patient, I do not think pt is particularly depressed nor actively suicidal. I do not suspect that this was a suicide attempt and do not recommend inpatient level of care. I do have high suspicious that pt may have relapsed (either combination of cocaine laced with opioid or taking extra methadone) and accidentally OD, but again we wont have certainty of this. Pt adamantly denies relapsing on opioid and cocaine. BUt note that pt is terrified of being sectioned 35 again. In an effort to reduce harm, I do not recommend that pt is given RX for benzos on discharge as it increases risk of fatal opioid overdose if pt relapses. I would also advise to contact [facility] to consider daily methadone dosing as pt is no longer in [facility] instead of take home dosing. I do not recommend pt be continued on ambien for same reasons as diazepam. PLAN: 1. No need for sitter. No signs of imminent risks of harm to self or others. Moreover, pt does not meet criteria for ILOC psychiatric unit. I do not suspect this was an suicide attempt. 2. ambien d/c Greater than 50% of the session was spent on counseling and/or coordination of care Patient educated on: diagnosis, medication risk/benefits and substance abuse Guardian/Caregiver educated on: diagnosis, medication risk/benefits and substance abuse Informed Consent: understands
[2020-12-07] MEDS: busPIRone HCl 10 MG TABLET 30 MG PO (20:58)
[2020-12-07] MEDS: Ibuprofen 400 MG TABLET PO (21:37)
[2020-12-07] MEDS: lamoTRIgine 25 MG TABLET 150 MG PO (21:37)
--- NOTE | 2020-12-07 22:59 | CONS_ITS ---
DATE OF SERVICE: 12/07/2020 REASON FOR CONSULTATION: Elevated LFTs. HISTORY OF PRESENT ILLNESS: This has been obtained from the patient and the medical record. The patient is a 40-year-old female admitted here several days ago for change in mental status and with the finding of rhabdomyolysis on her laboratories with a CPK of over 15,000. She does have an underlying history of untreated chronic hepatitis C based on her history, although she has spoken to her primary care doctor about getting started on Harvoni. She has a previous history of intravenous drug use, but has not done that for many years. She denies any recent drug use, although her toxicology screen was positive for cocaine on this admission. Since admission, her mental status has cleared. She is presently feeling well and denies any abdominal pain. Her appetite has been good and she has had no vomiting. She denies any history of jaundice. No pruritus. She denies any known family history of liver disease. Her workup here has included imaging studies of ultrasound and CAT scan of the abdomen. These studies reveal some very mild dilatation of the intrahepatic and extrahepatic bile ducts, but without any sign of gallstones, mass, nor pancreatitis. Again, she denies any abdominal pain. She denies any new medication at home. She denies alcohol use. Since admission here, her CPK has gone from 34,000 on admission to 6600 yesterday. Her liver enzymes in August of 2020 revealed an AST of 63 and ALT of 49. On this admission, her AST was with an ALT of 123. Her AST has improved to a level 161 today and her ALT has remained stable at 104. Her total bilirubin and alkaline phosphatase have remained normal. Her albumin is 3.6. MEDICATIONS: Her medications at home include aspirin, bupropion, buspirone, vitamin B12, cyclobenzaprine, diazepam, diclofenac, ferrous sulfate, hydroxyzine, Lamictal, loratadine, methadone, vitamins, propranolol, and Topamax. Her medications here include aspirin, bupropion, buspirone, cyclobenzaprine, diazepam, iron, subcu heparin, Atarax, Lamictal, lidocaine patch, methadone, vitamins, propranolol, Senokot, Topamax, and Ambien. PAST MEDICAL HISTORY: . Chronic hepatitis C. She describes a history of bipolar and PTSD. She denies any history of heart disease, diabetes, stroke, nor lung disease. SOCIAL HISTORY: She does smoke. She denies alcohol use. FAMILY HISTORY: Noncontributory. PHYSICAL EXAMINATION: GENERAL: The patient is a pleasant, alert, comfortable-appearing female. SKIN: Warm and dry. There is no jaundice nor spider angiomata. NECK: Supple. CARDIAC: Normal S1, S2. ABDOMEN: Soft, nondistended, nontender without organomegaly or mass. EXTREMITIES: Without edema. No palmar erythema. LABORATORIES: As above. BUN 6, creatinine 0.8. Normal electrolytes. Ammonia level was 33 on admission. Her toxicology screen was positive for benzodiazepines and cocaine in her urine on December 04. Her hepatitis serologies on this admission showed negative hepatitis A IgM, negative hepatitis B surface antigen, positive hepatitis B surface antibody, and a positive hepatitis C antibody. IMAGING STUDIES: As above, which included the negative gallbladder ultrasound and normal-appearing pancreas. IMPRESSION: In regard to the patient's elevated LFTs, I suspect this is at least in partial relationship to her known chronic hepatitis C infection by her description. This may have been related to cocaine use as well. The fact that the AST has been much higher than the ALT could indicate that partly AST is in relation to muscle damage and muscle enzyme as opposed to liver enzymes. She does not show any signs of liver failure and presently is asymptomatic. The imaging studies are not particularly worrisome in regard to the mildly dilated bile duct. At some point, one could consider doing an outpatient MRCP electively. I do not think this needs to be done urgently during this admission. PLAN: At this point, I will continue supportive care and follow up laboratories in the morning. I did review with the patient that she should follow up with her primary care doctor regarding potential outpatient MRCP as well as for treatment of her hepatitis C. I did advise her to obviously avoid all drugs and alcohol going forward. This has been discussed with her in detail and she is comfortable with this plan. MD BOB García/NOEMY / [id number]
[2020-12-08 03:19] VITALS: BP 112/66; PULSE 66; RESP 18; TEMP 36.6; O2SAT 98
[2020-12-08 06:58] LABS: Basophils Percent Auto 0.6 % (0-2); Eosinophils Absolute Auto 0.1 X10*3/uL (0.0-0.4); Imm Gran Abs Auto 0.01 X10*3/uL (0.00-0.03); Imm Gran Pct Auto 0.3 % (0.0-0.4); MANUAL DIFF FLAG SCAN; Mean Corpuscular Hemoglobin 29.9 pg (27.0-33.0); PLT CLUMP 1; Prothrombin Time 11.6 SEC (10.8-13.0); Red Cell Distribution Width 15.4 % (11.0-16.0); SCAN SMEAR FLAG 1
[2020-12-08 07:00] LABS: Eosinophils Percent Auto 3.5 % (0-4); Hematocrit 36.4 % (37-47); Hemoglobin 11.8 g/dl (12.0-16.0); Lymphocytes Absolute Auto 1.8 X10*3/uL (1.2-4.9); Lymphocytes Percent Auto 51.6 % (20-40); Mean Corpuscular HGB Conc 32.4 g/dl (31.0-35.0); Mean Corpuscular Volume 92.4 fL (80-98); Mean Platelet Volume 10.5 fL (9.4-12.3); Monocytes Absolute Auto 0.3 X10*3/uL (0.1-1.2); Monocytes Percent Auto 8.4 % (2-11); Neutrophils Absolute Auto 1.2 X10*3/uL (2.0-8.3); Neutrophils Percent Auto 35.6 % (45-73); Red Blood Count 3.94 X10*6/uL (4.20-5.50); White Blood Count 3.5 X10*3/uL (4.8-10.8)
[2020-12-08 07:39] LABS: Alanine Aminotransferase 94 U/L (0-31); Albumin Level 3.6 g/dL (3.5-5.0); Alkaline Phosphatase 98 U/L (39-117); Anion Gap 15 (12-20); Aspartate Amino Transferase 112 U/L (5-31); Bilirubin Direct < 0.2 mg/dL (0.0-0.5); Bilirubin Total 0.3 mg/dL (0.0-1.0); Blood Urea Nitrogen 10 mg/dL (9-16); Calcium 8.9 mg/dL (8.4-10.2); Carbon Dioxide 22 mmol/L (22-29); Chloride 110 mmol/L (96-108); Creatinine Clr Calc Pharmacy 116.3; Estimated Glomerular Filt Rate > 60; Glucose Random 109 mg/dL (60-115); Sodium 142 mmol/L (135-145); Total Protein 6.4 g/dL (6.5-8.0)
[2020-12-08 08:00] VITALS: BP 121/66; PULSE 67; RESP 20; TEMP 36.6; O2SAT 100
[2020-12-08] MEDS: Multivitamin TABLET 1 TAB PO (08:07)
[2020-12-08] MEDS: Lidocaine 4 % Patch ADH..PATCH 1 PATCH TRANSDERMA (08:07)
[2020-12-08] MEDS: Topiramate 100 MG TABLET 200 MG PO (08:07)
[2020-12-08] MEDS: Ferrous Sulfate 324 MG TABLET.DR PO (08:07)
[2020-12-08] MEDS: Cyclobenzaprine HCl 10 MG TABLET PO (08:07)
[2020-12-08] MEDS: Loratadine 10 MG TABLET PO (08:07)
[2020-12-08] MEDS: buPROPion HCl XL 300 MG TAB.ER.24H PO (08:07)
[2020-12-08] MEDS: lamoTRIgine 25 MG TABLET 50 MG PO (08:08)
[2020-12-08] MEDS: lamoTRIgine 25 MG TABLET 150 MG PO (08:08)
[2020-12-08] MEDS: busPIRone HCl 10 MG TABLET 30 MG PO (08:09)
[2020-12-08] MEDS: Aspirin 81 MG TAB.CHEW PO (08:09)
[2020-12-08 08:22] LABS: Platelet Count 117 X10*3/uL (160-400); SLIDE REVIEW VERIFIED
[2020-12-08] MEDS: diazePAM 5 MG TABLET PO (10:17)
--- NOTE | 2020-12-08 13:04 | P.DS_ITS ---
DS: Providers Provider Date of Service: 12/08/20 Date of admission: 12/04/20 20:53 Primary care physician: Unknown Physician Consults: 12/04/20 20:53 Consult to Nephrology Routine Consulting Provider: Gifty More Reason for consultation: Rhabdomyolysis 12/07/20 08:23 Consult to Gastroenterology Routine Consulting Provider: Leonidas Marte Reason for consultation: elevated lfts h/o hepatitis c cbd dilatation 12/07/20 12:32 Consult to Psychiatry Routine Consulting Provider: [facility] Reason for consultation: drug overdose depression DS: Diagnosis Discharge Diagnosis (1) Cocaine abuse: Status: Acute (2) Opioid dependence: Status: Acute (3) Rhabdomyolysis: Status: Acute (4) Overdose: Status: Acute (5) Pneumonia: Status: Acute (6) Toxic metabolic encephalopathy: Status: Acute (7) Transaminitis: Status: Acute DS: Medications Discharge Medications Home Medications: Home Medications Medication Instructions Recorded Confirmed aspirin 1 tab PO DAILY 12/04/20 12/04/20 bupropion HCl 1 tab PO BID 12/04/20 12/04/20 buspirone 1 tab PO BID 12/04/20 12/04/20 cyanocobalamin (vitamin B-12) 1 tab PO DAILY 12/04/20 12/04/20 [Vitamin B-12] cyclobenzaprine 1 tab PO TID 12/04/20 12/04/20 diclofenac sodium 1 tab PO TID PRN 12/04/20 12/04/20 ferrous sulfate 1 tab PO DAILY 12/04/20 12/04/20 hydroxyzine pamoate 1 cap PO BID PRN 12/04/20 12/04/20 lamotrigine 1 tab PO BID 12/04/20 12/04/20 lamotrigine 2 tab PO DAILY 12/04/20 12/04/20 loratadine 1 tab PO DAILY 12/04/20 12/04/20 multivitamin [Daily-Angle] 1 tab PO DAILY 12/04/20 12/04/20 propranolol 1 tab PO Q6H PRN 12/04/20 12/04/20 topiramate 1 tab PO DAILY 12/04/20 12/04/20 methadone 125 mg PO DAILY 12/06/20 12/06/20 gabapentin 1 tab PO TID 12/07/20 12/07/20 DS: Summary Hospital Course Hospital Course: HPI 40-year-old female with a past medical history of polysubstance abuse, PTSD, history of hep C, opiate dependence, depression, bipolar, history of suicidal/homicidal ideations presented to the hospital with a chief complaint of altered mental status. Patient is drowsy and lethargic and very poorly involved in interview; I tried to reach the patient is here and Sarita couple times left a voice message as she was not reachable. Most of the history obtained from the ER staff and records. Reportedly patient was presented with altered mental status; initially the other concern for cardiac arrest but by the time EMS okay min patient was alert and the bystanders were questioning of patient took any extra dose of medications. When patient initially presented to the ER patient was significantly lethargic but protecting the airway is okay. Subsequently patient mental status slightly improved and response to verbal stimuli but quickly falls back to sleep; ER team mentioned the had to do sternal rub to wake her up initially. When questioned patient mentioned that she took couple doses of her Flexeril for pain; and any further questions she was not answering and falling back to sleep. ER team notified poison Control, but recommended to monitor EKG, telemetry, liver panel. U tox pending Lab show transaminitis and rhabdomyolysis Hospital course 40-year-old female admitted with toxic metabolic encephalopathy and aspiration pneumonia and rhabdomyolysis and elevated LFTs likely secondary to drug overdose, patient was on multiple anti psychotic medication, remains unclear of which patient overdosed, likely cocaine and methadone, patient was started on supportive management, poison Control was called recommended monitoring on telemetry and monitoring electrolytes, patient was started on IV fluid, patient was started on Zosyn for aspiration pneumonia, encephalopathy was resolved, patient became more awake and alert, psych was consulted reconciled given no suicidal ideation recommended no need for inpatient psych, reconciled patient likely overdosed on cocaine and methadone and recommended no diazepam and no ambien on discharge , also patient has take home methadone program and there was possibilty of methadone overdose , methadone program was contacted by [facility] PABLO lizama and made aware that daily dosing of methadone instead of take home dose , diazepam and Ambien was stopped on discharge. Rhabdomyolysis was likely secondary to cocaine use and was resolving with IV fluid trended down significantly. Patient was also found to have elevated LFTs , CT abdomen on admission shows CBD dilatation of 1 cm, LFTs for trending down significantly, Gastroenterology was consulted recommended LFTs likely secondary to hepatitis C and cocaine use, GI recommended outpatient MRCP, patient patient will follow up with Gastroenterology as outpatient for MRCP, patient will need repeat LFTs in 1 week. patient was stable, patient was cleared by psych for discharge, patient was discharged home Time Spent with Patient Time attestation: Total time spent providing and/or coordinating discharge services: Discharge coordination time: Greater than 30 minutes Physical Exam Vital Signs: Vital Signs: Last Vital Signs Temp 97.8 F 12/08/20 08:00 Pulse 67 12/08/20 08:00 Resp 20 12/08/20 08:00 BP 121/66 12/08/20 08:00 Pulse Ox 100 12/08/20 08:00 Body Mass Index 32.3 DS: Data Data Completed and Pending Labs on day of discharge: Laboratory Results - last 24 hr 12/08/20 12/08/20 12/08/20 06:18 06:18 06:18 WBC 3.5 L RBC 3.94 L Hgb 11.8 L Hct 36.4 L MCV 92.4 MCH 29.9 MCHC 32.4 RDW 15.4 Plt Count 117 L MPV 10.5 Immature Gran % (Auto) 0.3 Neut % (Auto) 35.6 L Lymph % (Auto) 51.6 H [place] % (Auto) 8.4 Eos % (Auto) 3.5 Baso % (Auto) 0.6 Lymph # (Auto) 1.8 [place] # (Auto) 0.3 Eos # (Auto) 0.1 Baso # (Auto) 0.0 Abs Immat Gran (auto) 0.01 Absolute Neuts (auto) 1.2 L Absolute Nucleated RBC 0.000 Nucleated RBC % (auto) 0.0 Smear Tech's Comments VERIFIED PT 11.6 INR 1.0 Sodium 142 Potassium 5.0 Chloride 110 H Carbon Dioxide 22 Anion Gap 15 BUN 10 D Creatinine 0.74 Estim Creat Clear Calc 116.3 Estimated GFR > 60 Random Glucose 109 Calcium 8.9 Total Bilirubin 0.3 Direct Bilirubin < 0.2 AST 112 H ALT 94 H Alkaline Phosphatase 98 Total Creatine Kinase 1420 H D Total Protein 6.4 L Albumin 3.6 Preliminary micro results at discharge 12/04/20 17:23 Blood Culture - Preliminary Blood - Venous No growth after 48 hours. 12/04/20 17:23 Blood Culture - Preliminary Blood - Venous No growth after 48 hours. Discharge Plan Discharge Anticipated Discharge Date/Time: 12/08/20 12:57 Patient Disposition: Home, Self-Care Referrals: Physician,Unknown [Primary Care Provider] - Discharge Medications: Continued multivitamin [Daily-Angle] Tablet 1 tab PO DAILY RF: 0 cyclobenzaprine 10 mg tablet 1 tab PO TID RF: 0 lamotrigine 150 mg tablet 1 tab PO BID RF: 0 bupropion HCl 150 mg tablet sustained-release 12 hr 1 tab PO BID RF: 0 cyanocobalamin (vitamin B-12) [Vitamin B-12] 1,000 mcg tablet 1 tab PO DAILY RF: 0 hydroxyzine pamoate 50 mg capsule 1 cap PO BID PRN (Reason: anxiety) RF: 0 lamotrigine 25 mg tablet 2 tab PO DAILY RF: 0 buspirone 30 mg tablet 1 tab PO BID RF: 0 ferrous sulfate 325 mg (65 mg iron) tablet 1 tab PO DAILY RF: 0 aspirin 81 mg tablet,chewable 1 tab PO DAILY RF: 0 topiramate 200 mg tablet 1 tab PO DAILY RF: 0 diclofenac sodium 50 mg tablet,delayed release (DR/EC) 1 tab PO TID PRN (Reason: Anxiety) RF: 0 propranolol 20 mg tablet 1 tab PO Q6H PRN (Reason: Anxiety) RF: 0 loratadine 10 mg tablet 1 tab PO DAILY RF: 0 methadone 5 mg/5 mL Solution 125 mg PO DAILY RF: 0 gabapentin 800 mg tablet 1 tab PO TID RF: 0 Discontinued zolpidem 5 mg tablet 1 tab PO BEDTIME RF: 0 diazepam 5 mg tablet 1 tab PO TID PRN (Reason: Anxiety) RF: 0 Discharge Orders: Discharge Order (Routine); Ordered 12/08/20 Ordered By: Robert Berry Activity on Discharge: As tolerated Stand Alone Forms: Patient Portal Discharge page Care Plan Goals: See above Health Concerns: see above Plan of Treatment: see above Discharge Date/Time: 12/08/20 13:40
[2020-12-08] MEDS: Ibuprofen 400 MG TABLET PO (13:17)
[2020-12-08] MEDS: Naloxone HCl Nasal TAKE HOME 4 MG SPRAY NOSTRILALT (13:19)
--- NOTE | 2020-12-08 13:37 | MHC.CM.PN ---
Addendum entered by Cici Lambert RN 12/08/20 13:42: CM UNABLE TO REINFORCE NEED TO ATTEND [facility] DAILY DUE TO OVERUSE OF METHADONE DUE TO PT LEAVING PRIOR TO CM BEING ABLE TO SEE HER. Original Note: PT DISCHARGED HOME SELF-CARE, FRIEND FOR TRANSPRT. PER PSYCH PT DID DECLINE REFERRALS FOR [facility] [place].
== END 2020-12-08 13:40 | disposition home or self-care (01) | DRG 812 ==
LOC: HO.ED 19:10 → HO.EDOVER 21:18 → HO.IMC 21:25
PROVIDERS: Internal Medicine; Internal Medicine Nephrology; Physician Assistant; Admitting Provider Hospitalist; Emergency Provider Emergency Medicine; PCP Internal Medicine; Visit Provider Internal Medicine
DX: T50.911A Poisoning by multiple unspecified drugs, medicaments and biological substances, accidental (unintentional), initial encounter (principal); J69.0 Pneumonitis due to inhalation of food and vomit; G92 Toxic encephalopathy; M62.82 Rhabdomyolysis; F11.20 Opioid dependence, uncomplicated; F14.10 Cocaine abuse, uncomplicated; Y92.9 Unspecified place or not applicable; B18.2 Chronic viral hepatitis C; Z20.822 Contact with and (suspected) exposure to COVID-19; Z79.82 Long term (current) use of aspirin; Z79.899 Other long term (current) drug therapy
CPT/HCPCS: 36415; 70450; 71045; 74176; 76705; 80048; 80053; 80076; 80143; 80164; 80179; 80307; 80320; 81001; 81003; 82140; 82550; 82947; 83605; 83735; 84145; 84484; 85025; 85610; 85730; 86704; 86706; 86709; 86803; 87040; 87086; 87340; 87635; 93005; 96365; 96375; 99285; J2543

== ENCOUNTER 2020-12-09 13:31 | Emergency (ER) | payer OTHER, SELFPAY ==
--- NOTE | 2020-12-09 13:40 | ED.OVERDOSE ---
HPI - Overdose General Chief Complaint: ETOH/Substance Use Stated Complaint: OD Time Seen by Provider: 12/09/20 13:34 Source: patient and EMS Mode of arrival: EMS Limitations: no limitations History of Present Illness HPI Narrative: 40 y/o female with history of polysubstance abuse, PTSD, hepatitis C, depression, bipolar disorder with recent admission here 12/04-12/08 for AMS 2/2 likely methadone and cocaine overdose with rhabdymyolysis (CK 35,000) who presents to the ED today via EMS after she was found lethargic and altered on a stoop. On EMS arrival patient was lethargic but arousable, she developed decrease in respirations and was given IN Narcan x1 with some brief improvement in her mentation. No episodes of hypoxia. On arrival to the ER patient is lethargic but arouses to voice and briefly follows simple commands. Reports a headache and being cold. Not answering what substances she used today. No signs of trauma. MD complaint: accidental overdose Intent: unwilling to say How Overdose Was Discovered: called 911 Treatments Prior to Arrival: narcan Related Data Home Medications Medication Instructions Recorded Confirmed aspirin 1 tab PO DAILY 12/04/20 12/04/20 bupropion HCl 1 tab PO BID 12/04/20 12/04/20 buspirone 1 tab PO BID 12/04/20 12/04/20 cyanocobalamin (vitamin B-12) 1 tab PO DAILY 12/04/20 12/04/20 [Vitamin B-12] cyclobenzaprine 1 tab PO TID 12/04/20 12/04/20 diclofenac sodium 1 tab PO TID PRN 12/04/20 12/04/20 ferrous sulfate 1 tab PO DAILY 12/04/20 12/04/20 hydroxyzine pamoate 1 cap PO BID PRN 12/04/20 12/04/20 lamotrigine 1 tab PO BID 12/04/20 12/04/20 lamotrigine 2 tab PO DAILY 12/04/20 12/04/20 loratadine 1 tab PO DAILY 12/04/20 12/04/20 multivitamin [Daily-Angle] 1 tab PO DAILY 12/04/20 12/04/20 propranolol 1 tab PO Q6H PRN 12/04/20 12/04/20 topiramate 1 tab PO DAILY 12/04/20 12/04/20 methadone 125 mg PO DAILY 12/06/20 12/06/20 gabapentin 1 tab PO TID 12/07/20 12/07/20 Allergies Allergy/AdvReac Type Severity Reaction Status Date / Time azithromycin [AZITHROMYCIN] Allergy Unknown UNK Verified 08/24/20 16:06 erythromycin base Allergy Unknown RASH Verified 08/24/20 16:06 [ERYTHROMYCIN BASE] olanzapine [From ZYPREXA] Allergy Unknown PEDAL EDEMA Verified 08/24/20 16:06 quetiapine [From SEROQUEL] Allergy Unknown THROAT Verified 08/24/20 16:06 SWELLING risperidone [From RISPERDAL] Allergy Unknown TWITCHING Verified 08/24/20 16:06 shellfish derived Allergy Unknown VOMITING Verified 08/24/20 16:06 [SHELLFISH DERIVED] sulfamethoxazole Allergy Unknown ITCHING Verified 08/24/20 16:06 [From BACTRIM] trimethoprim [From BACTRIM] Allergy Unknown ITCHING Verified 08/24/20 16:06 arithromiosin Allergy Unknown Unknown Uncoded 08/24/20 16:06 gluten Allergy Unknown Unknown Uncoded 08/24/20 16:06 sea food Allergy Unknown Unknown Uncoded 08/24/20 16:06 Sulfacet-R Allergy Unknown Unknown Uncoded 08/24/20 16:06 SEAFOOD AdvReac Unknown VOMIT Uncoded 06/07/20 15:47 Review of Systems Review of Systems: Yes Unobtainable due to mental status PMFSH Past Medical History Medical History (Updated 12/08/20 @ 15:40 by Robert Berry MD) No known health problems Social History Social History Household Members: Unknown / Unable to assess Alcohol intake: former Smoking Status: Unknown if ever smoked Substance Use Type: Crack/Cocaine and Heroin Advance Directives: No Advance Directives Information Provided: No service: No Current occupational status: unemployed Physical Exam Vital Signs: Vital Signs: Last Vital Signs Temp 97.5 F 12/09/20 13:44 Pulse 72 12/09/20 14:05 Resp 10 L 12/09/20 14:05 BP 140/87 H 12/09/20 14:05 Pulse Ox 100 12/09/20 14:05 Body Mass Index 32.7 Appearance: lethargic, middle aged female laying in bed, no distress. Eyes: Pupils slightly dilated equal, round and sluggish. ENT: Pharynx normal. Neck: Normal inspection. Neck supple. CVS: Normal heart rate and rhythm. Pulses normal. Respiratory: No respiratory distress. Shallow breathing. Breath sounds normal. Abdomen: Soft and nontender. +BS x4 Skin: Skin warm and dry. Normal skin color. Normal skin turgor. No rashes. Areas of ecchymosis scattered along both UE. Extremities: No lower extremity edema. Neuro: lethargic, arouses to voice and follows commands and then falls back asleep. moves all 4 extremities spontaneously. non-focal Course Course Course Narrative: 40 y/o female with history of polysubstance abuse and recent admission for overdose and rhabdomyolysis presents altered after she was found down on a stoop. Responded to Narcan in the field. Likely opiate on board with additional substances given her history. Pupils are dilated, similar to previous presentation last week. She is currently protecting her airway w/ RR 10, SpO2 100% on room air. Will monitor closely for the need of additional narcan. Will get labs and Utox. She has history of recurrent rhabdo and it is unknown how long she was on the ground for. There is no signs of trauma on exam and she was moving all 4 extremities. Will hold off on CT head for now and monitor closely. Reevaluation(s) Reevaluation #1: 4:30 pm - There is a delay in labs due to difficult stick. Multiple attempts have been made with success now. She continues to be lethargic, briefly opens eyes but falls back asleep. Respirations are adequate. She states she is tired because she hasn't slept. She admits to taking 4 or 5 sleeping pills. She doesn't know who she got them from or what they were called. Of note her Ambien and diazepam were stopped on discharge. Reevaluation #2: 5 pm - labs show resolving transaminitis and rhabdomyolysis. Will sign out to Deep Herrera who will assume care. Plan to reassess once mental status improves. Awaiting utox. MDM - Overdose Lab Data Result diagrams: 12/09/20 16:14 12/09/20 16:14 Labs: Lab Results 12/09/20 12/09/20 12/09/20 Range/Units 16:14 16:14 16:14 WBC 5.3 (4.8-10.8) X10*3/uL RBC 4.32 (4.20-5.50) X10*6/uL Hgb 13.0 (12.0-16.0) g/dl Hct 40.4 (37-47) % MCV 93.5 (80-98) fL MCH 30.1 (27.0-33.0) pg MCHC 32.2 (31.0-35.0) g/dl RDW 14.9 (11.0-16.0) % Plt Count 148 L D (160-400) X10*3/uL MPV 9.1 L (9.4-12.3) fL Immature Gran % (Auto) 0.4 (0.0-0.4) % Neut % (Auto) 67.8 (45-73) % Lymph % (Auto) 25.3 (20-40) % [place] % (Auto) 4.8 (2-11) % Eos % (Auto) 1.5 (0-4) % Baso % (Auto) 0.2 (0-2) % Lymph # (Auto) 1.3 (1.2-4.9) X10*3/uL [place] # (Auto) 0.3 (0.1-1.2) X10*3/uL Eos # (Auto) 0.1 (0.0-0.4) X10*3/uL Baso # (Auto) 0.0 (0.0-0.2) X10*3/uL Abs Immat Gran (auto) 0.02 (0.00-0.03) X10*3/uL Absolute Neuts (auto) 3.6 (2.0-8.3) X10*3/uL Absolute Nucleated RBC 0.000 (0.0-0.012) X10*3/uL Nucleated RBC % (auto) 0.0 (0.0-0.2) /100WBC Hold Blue Top SEE NOTE Ethyl Alcohol < 10 mg/dL Discharge Plan Discharge Prescriptions: No Action multivitamin [Daily-Angle] Tablet 1 tab PO DAILY RF: 0 cyclobenzaprine 10 mg tablet 1 tab PO TID RF: 0 lamotrigine 150 mg tablet 1 tab PO BID RF: 0 bupropion HCl 150 mg tablet sustained-release 12 hr 1 tab PO BID RF: 0 cyanocobalamin (vitamin B-12) [Vitamin B-12] 1,000 mcg tablet 1 tab PO DAILY RF: 0 hydroxyzine pamoate 50 mg capsule 1 cap PO BID PRN (Reason: anxiety) RF: 0 lamotrigine 25 mg tablet 2 tab PO DAILY RF: 0 buspirone 30 mg tablet 1 tab PO BID RF: 0 ferrous sulfate 325 mg (65 mg iron) tablet 1 tab PO DAILY RF: 0 aspirin 81 mg tablet,chewable 1 tab PO DAILY RF: 0 topiramate 200 mg tablet 1 tab PO DAILY RF: 0 diclofenac sodium 50 mg tablet,delayed release (DR/EC) 1 tab PO TID PRN (Reason: Anxiety) RF: 0 propranolol 20 mg tablet 1 tab PO Q6H PRN (Reason: Anxiety) RF: 0 loratadine 10 mg tablet 1 tab PO DAILY RF: 0 methadone 5 mg/5 mL Solution 125 mg PO DAILY RF: 0 gabapentin 800 mg tablet 1 tab PO TID RF: 0
[2020-12-09 13:44] VITALS: BP 140/82; PULSE 74; RESP 12; TEMP 36.4; O2SAT 97; BMI 32.7
[2020-12-09 14:05] VITALS: BP 140/87; PULSE 72; PULSE 73; RESP 10; O2SAT 100
[2020-12-09 16:20] LABS: MANUAL DIFF FLAG NO
[2020-12-09 16:21] LABS: Basophils Percent Auto 0.2 % (0-2); Eosinophils Absolute Auto 0.1 X10*3/uL (0.0-0.4); Eosinophils Percent Auto 1.5 % (0-4); Hematocrit 40.4 % (37-47); Imm Gran Abs Auto 0.02 X10*3/uL (0.00-0.03); Imm Gran Pct Auto 0.4 % (0.0-0.4); Lymphocytes Absolute Auto 1.3 X10*3/uL (1.2-4.9); Lymphocytes Percent Auto 25.3 % (20-40); Mean Corpuscular HGB Conc 32.2 g/dl (31.0-35.0); Mean Corpuscular Hemoglobin 30.1 pg (27.0-33.0); Mean Corpuscular Volume 93.5 fL (80-98); Mean Platelet Volume 9.1 fL (9.4-12.3); Monocytes Absolute Auto 0.3 X10*3/uL (0.1-1.2); Monocytes Percent Auto 4.8 % (2-11); Neutrophils Absolute Auto 3.6 X10*3/uL (2.0-8.3); Neutrophils Percent Auto 67.8 % (45-73); Platelet Count 148 X10*3/uL (160-400); Red Blood Count 4.32 X10*6/uL (4.20-5.50); Red Cell Distribution Width 14.9 % (11.0-16.0); White Blood Count 5.3 X10*3/uL (4.8-10.8)
[2020-12-09 16:41] LABS: Ethanol < 10 mg/dL
[2020-12-09 16:56] LABS: Alanine Aminotransferase 96 U/L (0-31); Albumin Level 4.7 g/dL (3.5-5.0); Alkaline Phosphatase 121 U/L (39-117); Anion Gap 16 (12-20); Aspartate Amino Transferase 81 U/L (5-31); Bilirubin Direct 0.4 mg/dL (0.0-0.5); Bilirubin Total 0.5 mg/dL (0.0-1.0); Blood Urea Nitrogen 16 mg/dL (9-16); Calcium 9.4 mg/dL (8.4-10.2); Carbon Dioxide 26 mmol/L (22-29); Chloride 104 mmol/L (96-108); Creatinine Clr Calc Pharmacy 105.6; Estimated Glomerular Filt Rate > 60; Glucose Random 105 mg/dL (60-115); Magnesium 2.3 mg/dL (1.6-2.6); Potassium 4.4 mmol/L (3.3-5.1); Sodium 142 mmol/L (135-145); Total Protein 7.9 g/dL (6.5-8.0)
[2020-12-09 17:44] VITALS: BP 113/75; PULSE 73; RESP 12; TEMP 36.3; O2SAT 100
[2020-12-09 17:47] VITALS: BP 113/73; PULSE 72; RESP 9; O2SAT 100
[2020-12-09 20:15] VITALS: BP 122/76; PULSE 78; RESP 12; O2SAT 100
[2020-12-09 20:23] LABS: Glucose Urine UA NEG (NEG); Leukocyte Esterase Urine NEG (NEG); Nitrite Urine NEG (NEG); Specific Gravity - Urine 1.025 (1.005-1.025); Urine Blood NEG (NEG); Urine Ketones NEG (NEG); Urine Protein NEG (NEG-TRACE)
[2020-12-09 20:24] LABS: Appearance Urine CLEAR; Color Urine YELLOW
--- NOTE | 2020-12-09 20:24 | PC.NURSE ---
Pt found laying in bed, with eyes rolled into back of head, pt arousable to verbal stimuli. Pt assisted OOB to the bathroom to provide urine sample, pt unsteady on feet requiring a one assist. Pt assisted back into bed, provided with food/drink. RT aware of pending ABG due to persistent AMS throughout the day. VSS. Continue to monitor.
[2020-12-09 20:47] LABS: Amphetamine Screen Urine Not Detected (Not Detect); Barbiturates, Urine Not Detected (Not Detect); Benzodiazepines Screen Urine POSITIVE (Not Detect); Cannabinoid Screen Urine Not Detected (Not Detect); Cocaine Screen Urine POSITIVE (Not Detect); Opiate Screen Urine Not Detected (Not Detect); Phencyclidine Screen Urine Not Detected (Not Detect)
[2020-12-09 20:52] LABS: Salicylate < 5.0 mg/dL (15-30)
[2020-12-09 20:57] LABS: Acetaminophen LAB < 1 mcg/mL (<30)
--- NOTE | 2020-12-09 22:27 | PC.NURSE ---
Pt aware of plan for discharge. Pt now requesting to speak with someone regarding detox placement. PA aware.
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
[2020-12-09 23:45] VITALS: BP 97/51; PULSE 76; RESP 12; TEMP 36.7; O2SAT 98
[2020-12-10 01:47] VITALS: BP 102/62; PULSE 80; RESP 12; O2SAT 100
[2020-12-10 02:00] VITALS: BP 102/62; PULSE 80; RESP 9; O2SAT 100
--- NOTE | 2020-12-10 08:17 | PC.NURSE ---
PT SLEEPING. AWAITING DETOX
--- NOTE | 2020-12-10 09:02 | MHC.RECOVRN ---
T/w met with pt in ED22 to discuss desire for ATS level of care. Pt reports I don't know how I got here. I had a seizure a couple days ago. Pt reports using IV heroin and cocaine, last use yesterday, unknown amount. Pt willing to go to [facility], bed available. Referral has been faxed.
--- NOTE | 2020-12-10 09:04 | PC.NURSE ---
Pt resting in bed with eyes closed. Mother called and was provided with an update with permission from the patient.
[2020-12-10 09:31] LABS: COVID-19 Test Negative (Negative)
[2020-12-10 09:40] VITALS: BP 106/67; PULSE 79; RESP 12; O2SAT 100
--- NOTE | 2020-12-10 11:40 | MHC.RECOVRN ---
Pt completed phone intake with [facility]. Pt has admission time for 1PM. [place] provided [place] [facility] [employer].
== END 2020-12-10 12:15 ==
PROVIDERS: Physician Assistant; Emergency Provider Emergency Medicine
DX: T40.5X1A Poisoning by cocaine, accidental (unintentional), initial encounter (principal); R53.83 Other fatigue; Y92.488 Other paved roadways as the place of occurrence of the external cause; M62.82 Rhabdomyolysis; F11.20 Opioid dependence, uncomplicated; R51.9 Headache, unspecified; Z20.822 Contact with and (suspected) exposure to COVID-19; Z79.82 Long term (current) use of aspirin; Z79.899 Other long term (current) drug therapy
CPT/HCPCS: 36415; 51701; 80048; 80076; 80143; 80179; 80307; 80320; 81003; 82550; 83735; 85025; 87635; 99285

== ENCOUNTER 2020-12-22 20:23 | Inpatient (IN) | payer OTHER, SELFPAY ==
--- NOTE | ~2020-12-22 | XR_ITS ---
EXAMINATION: XR CHEST CLINICAL INFORMATION: History of pneumonia. COMPARISON: Chest 12/04/2020 TECHNIQUE: Frontal view of the chest was obtained. FINDINGS: The lungs are now expanded and clear. Previously seen patchy right parahilar density is not seen. The heart size and pulmonary vascularity is normal. No gross bony abnormality seen. XR/XR chest 1V IMPRESSION: No acute cardiopulmonary process seen.
[2020-12-22 20:32] VITALS: BP 109/67; PULSE 92; RESP 18; TEMP 36.6; O2SAT 97; BMI 30.7
--- NOTE | 2020-12-22 21:31 | ED_ITS ---
HPI - Back Pain/Injury General Chief Complaint: Back Pain/Injury Stated Complaint: back pain Time Seen by Provider: 12/22/20 21:24 Source: patient Mode of arrival: ambulatory Limitations: no limitations History of Present Illness HPI Narrative: 40 years old female with past medical history significant for polysubstance abuse, PTSD, history of hep C, opiate dependence, depression, bipolar, patient was recently and rehab detox patient currently on methadone, patient came in with bilateral lower flank pain for 4 days. Pain started 4 days ago and progressively getting worse, pain is worsened by movement of the trunk, nothing relieves the pain, patient stated no urinary incontinence however patient stated that she has to trees urination over old because patient suffering from her chronic kidney condition, patient stated that she only used methadone and she did not use any other medication however patient had a poor involvement in the interview patient appears that she has used opiates but patient declined that. Related Data Home Medications Medication Instructions Recorded Confirmed aspirin 1 tab PO DAILY 12/04/20 12/04/20 bupropion HCl 1 tab PO BID 12/04/20 12/04/20 buspirone 1 tab PO BID 12/04/20 12/04/20 cyanocobalamin (vitamin B-12) 1 tab PO DAILY 12/04/20 12/04/20 [Vitamin B-12] cyclobenzaprine 1 tab PO TID 12/04/20 12/04/20 diclofenac sodium 1 tab PO TID PRN 12/04/20 12/04/20 ferrous sulfate 1 tab PO DAILY 12/04/20 12/04/20 hydroxyzine pamoate 1 cap PO BID PRN 12/04/20 12/04/20 lamotrigine 1 tab PO BID 12/04/20 12/04/20 lamotrigine 2 tab PO DAILY 12/04/20 12/04/20 loratadine 1 tab PO DAILY 12/04/20 12/04/20 multivitamin [Daily-Angle] 1 tab PO DAILY 12/04/20 12/04/20 propranolol 1 tab PO Q6H PRN 12/04/20 12/04/20 topiramate 1 tab PO DAILY 12/04/20 12/04/20 methadone 125 mg PO DAILY 12/06/20 12/06/20 gabapentin 1 tab PO TID 12/07/20 12/07/20 Allergies Allergy/AdvReac Type Severity Reaction Status Date / Time azithromycin [AZITHROMYCIN] Allergy Unknown UNK Verified 08/24/20 16:06 erythromycin base Allergy Unknown RASH Verified 08/24/20 16:06 [ERYTHROMYCIN BASE] olanzapine [From ZYPREXA] Allergy Unknown PEDAL EDEMA Verified 08/24/20 16:06 quetiapine [From SEROQUEL] Allergy Unknown THROAT Verified 08/24/20 16:06 SWELLING risperidone [From RISPERDAL] Allergy Unknown TWITCHING Verified 08/24/20 16:06 shellfish derived Allergy Unknown VOMITING Verified 08/24/20 16:06 [SHELLFISH DERIVED] sulfamethoxazole Allergy Unknown ITCHING Verified 08/24/20 16:06 [From BACTRIM] trimethoprim [From BACTRIM] Allergy Unknown ITCHING Verified 08/24/20 16:06 arithromiosin Allergy Unknown Unknown Uncoded 08/24/20 16:06 gluten Allergy Unknown Unknown Uncoded 08/24/20 16:06 sea food Allergy Unknown Unknown Uncoded 08/24/20 16:06 Sulfacet-R Allergy Unknown Unknown Uncoded 08/24/20 16:06 SEAFOOD AdvReac Unknown VOMIT Uncoded 06/07/20 15:47 Review of Systems Review of Systems: All other systems are reviewed and are negative Constitutional: Reports as per HPI and Reports no additional constitutional complaints Eyes: Reports as per HPI and Reports no additional eye complaints Reports system reviewed and no additional complaints, except as documented Cardiovascular: Reports as per HPI and Reports no additional cardiovascular complaints Respiratory: Reports as per HPI and Reports no additional respiratory complaints Gastrointestinal: Reports as per HPI and Reports no additional gastrointestinal complaints Genitourinary: Reports no additional female genitourinary complaints Musculoskeletal: Reports no additional musculoskeletal complaints Skin/Breast: Reports system reviewed and no additional complaints, except as docu Psychiatric: Reports no additional psychiatric complaints Endocrine: Reports no additional endocrine complaints Hematologic/Lymphatic: Reports no additional hematologic/lymphatic complaints Allergic/Immunologic: Reports no additional allergic/immunologic complaints Reports system reviewed and no additional complaints, except as documented and Reports Abnormal speech present [facility] Past Medical History Medical History No known health problems Social History Social History Household Members: Unknown / Unable to assess Alcohol intake: former Smoking Status: Light tobacco smoker Use of substances other than those prescribed or required for medical reasons: Yes Substance Use Type: Prescription Drugs Advance Directives: No Advance Directives Information Provided: No service: No Current occupational status: unemployed Physical Exam Vital Signs: Vital Signs: Last Vital Signs Temp 96.9 F 12/22/20 22:00 Pulse 82 12/22/20 22:00 Resp 14 12/22/20 22:00 BP 98/47 L 12/22/20 22:00 Pulse Ox 96 12/22/20 22:00 Body Mass Index 30.7 Vital signs have been reviewed as appeared to be correct. Blood pressure normal. Heart rate normal. Respiration rate normal. Temperature normal. Oxygen saturation normal. Appearance: Alert. Oriented X2 not to time. No acute distress. Head: Normal external exam. Normocephalic. Atraumatic. No Kaur signs noted. No raccoon eyes noted Eyes: PERRLA. EOMI. Conjunctiva and sclera normal. Eyelids normal. ENT: TM's Normal. Pharynx normal. Uvula midline. Moist mucous membranes. No trismus noted. No drooling noted. No muffled voice noted. Neck: Normal inspection. Neck supple. FROM. No adenopathy. Thyroid Normal. No meningeal signs. No neck mass noted. CVS: Normal heart rate and rhythm. Heart sound normal. No murmurs noted. Pulses normal throughout. Respiratory: No respiratory distress. Painless inspiration. Breath sounds normal. No wheezes/rales/rhonchi noted. Chest nontender. No accessory muscle usage noted or decreased air movement noted. Abdomen: Soft and nontender. Bowel sounds normal in all 4 quadrants. No distention noted. No organomegaly noted. No visible injury noted. Back: Bilateral CVA tenderness. Full range of motion noted. Skin: Skin warm and dry. Normal skin color. Normal skin turgor. No rashes/lesions/lacerations noted. Extremities: No lower extremity edema. Extremities exhibit normal range of motion. Extremities nontender. Neuro: No motor deficit. No sensory deficit. Reflexes normal. Able to ambulate on both heels and toes, perianal sensation is grossly intact. Course Course Course Narrative: Assessment and plan. 40-year-old female with history of polysubstance abuse, history of chronic renal insufficiency, history of rhabdomyolysis, presented with bilateral muscular pain in bilateral flank area, CPK today is above 15,000. With hypokalemia. Will replace with IV hydration, replace potassium. MDM - Back Pain/Injury Lab Data Attestation: I reviewed the patient's lab results. Result diagrams: 12/22/20 22:02 Labs: Lab Results 12/22/20 12/22/20 Range/Units 22:02 22:02 Sodium 135 (135-145) mmol/L Potassium 3.2 L D (3.3-5.1) mmol/L Chloride 101 (96-108) mmol/L Carbon Dioxide 23 (22-29) mmol/L Anion Gap 14 (12-20) BUN 17 H (9-16) mg/dL Creatinine 0.79 (0.5-1.4) mg/dL Estim Creat Clear Calc 102.5 Estimated GFR > 60 Random Glucose 93 (60-115) mg/dL Calcium 8.5 D (8.4-10.2) mg/dL Total Bilirubin 0.9 (0.0-1.0) mg/dL Direct Bilirubin 0.4 (0.0-0.5) mg/dL AST 335 H (5-31) U/L ALT 136 H (0-31) U/L Alkaline Phosphatase 91 D (39-117) U/L Total Creatine Kinase 68694 H D (26-140) U/L Total Protein 6.9 (6.5-8.0) g/dL Albumin 4.2 (3.5-5.0) g/dL Lipase 7 L (8-78) U/L Imaging Data Chest x-ray: Radiologist's impression: No acute cardiopulmonary process seen. Discharge Plan Discharge Clinical Impression: Rhabdomyolysis, Acute hypokalemia Patient Disposition: Admitted As Inpatient Prescriptions: No Action multivitamin [Daily-Angle] Tablet 1 tab PO DAILY RF: 0 cyclobenzaprine 10 mg tablet 1 tab PO TID RF: 0 lamotrigine 150 mg tablet 1 tab PO BID RF: 0 bupropion HCl 150 mg tablet sustained-release 12 hr 1 tab PO BID RF: 0 cyanocobalamin (vitamin B-12) [Vitamin B-12] 1,000 mcg tablet 1 tab PO DAILY RF: 0 hydroxyzine pamoate 50 mg capsule 1 cap PO BID PRN (Reason: anxiety) RF: 0 lamotrigine 25 mg tablet 2 tab PO DAILY RF: 0 buspirone 30 mg tablet 1 tab PO BID RF: 0 ferrous sulfate 325 mg (65 mg iron) tablet 1 tab PO DAILY RF: 0 aspirin 81 mg tablet,chewable 1 tab PO DAILY RF: 0 topiramate 200 mg tablet 1 tab PO DAILY RF: 0 diclofenac sodium 50 mg tablet,delayed release (DR/EC) 1 tab PO TID PRN (Reason: Anxiety) RF: 0 propranolol 20 mg tablet 1 tab PO Q6H PRN (Reason: Anxiety) RF: 0 loratadine 10 mg tablet 1 tab PO DAILY RF: 0 methadone 5 mg/5 mL Solution 125 mg PO DAILY RF: 0 gabapentin 800 mg tablet 1 tab PO TID RF: 0
[2020-12-22 22:00] VITALS: BP 98/47; PULSE 82; RESP 14; TEMP 36.1; O2SAT 96
--- NOTE | 2020-12-22 22:22 | PC.NURSE ---
PT VERY SLEEPY IN CHAIR, AROUSES TO VERBAL/TACTILE STIMULI. BUT FALLS IMMEDIATELY TO SLEEP. REPORTED TO CHARGE NURSE GINNY. WAITING FOR BED.
[2020-12-22 22:48] LABS: Alanine Aminotransferase 136 U/L (0-31); Albumin Level 4.2 g/dL (3.5-5.0); Alkaline Phosphatase 91 U/L (39-117); Anion Gap 14 (12-20); Aspartate Amino Transferase 335 U/L (5-31); Bilirubin Direct 0.4 mg/dL (0.0-0.5); Bilirubin Total 0.9 mg/dL (0.0-1.0); Blood Urea Nitrogen 17 mg/dL (9-16); Calcium 8.5 mg/dL (8.4-10.2); Carbon Dioxide 23 mmol/L (22-29); Chloride 101 mmol/L (96-108); Creatinine Clr Calc Pharmacy 102.5; Estimated Glomerular Filt Rate > 60; Glucose Random 93 mg/dL (60-115); Lipase 7 U/L (8-78); Potassium 3.2 mmol/L (3.3-5.1); Sodium 135 mmol/L (135-145); Total Protein 6.9 g/dL (6.5-8.0)
--- NOTE | 2020-12-22 23:55 | P.HPHOSP_ITS ---
History of Present Illness Date of Service: 12/22/20 Chief Complaint: Flank pain 40-year-old female with a past medical history of polysubstance abuse, PTSD, bipolar, history of hep C, depression, opiate dependence on methadone presented to the hospital chief complaint of bilateral flank pain. Patient is a poor historian. Most of the history obtained from the ER staff and records. Reportedly the patient been having bilateral flank pain for the past 4 days and have been gradually worsening. Hence presented to the ER for further evaluation. Denies any fevers chills cough. Denies any urinary complaints. D enies any falls. Denies any chest pain palpitations lightheadedness or dizziness. Review of all other systems is negative except mentioned above ER course: Per ER team patient noted bilateral flank tenderness. Urinalysis was pending. Lab showed elevated liver enzymes and CPK. Given IV fluids. Admitted to hospital for further management. [facility] Medical History No known health problems Social History Household Members: Unknown / Unable to assess Alcohol intake: former Smoking Status: Light tobacco smoker Substance Use Type: Prescription Drugs service: No Current occupational status: unemployed Meds Allergies Allergy/AdvReac Type Severity Reaction Status Date / Time azithromycin [AZITHROMYCIN] Allergy Unknown UNK Verified 08/24/20 16:06 erythromycin base Allergy Unknown RASH Verified 08/24/20 16:06 [ERYTHROMYCIN BASE] olanzapine [From ZYPREXA] Allergy Unknown PEDAL EDEMA Verified 08/24/20 16:06 quetiapine [From SEROQUEL] Allergy Unknown THROAT Verified 08/24/20 16:06 SWELLING risperidone [From RISPERDAL] Allergy Unknown TWITCHING Verified 08/24/20 16:06 shellfish derived Allergy Unknown VOMITING Verified 08/24/20 16:06 [SHELLFISH DERIVED] sulfamethoxazole Allergy Unknown ITCHING Verified 08/24/20 16:06 [From BACTRIM] trimethoprim [From BACTRIM] Allergy Unknown ITCHING Verified 08/24/20 16:06 arithromiosin Allergy Unknown Unknown Uncoded 08/24/20 16:06 gluten Allergy Unknown Unknown Uncoded 08/24/20 16:06 sea food Allergy Unknown Unknown Uncoded 08/24/20 16:06 Sulfacet-R Allergy Unknown Unknown Uncoded 08/24/20 16:06 SEAFOOD AdvReac Unknown VOMIT Uncoded 06/07/20 15:47 Active Medications: Current Medications Generic Name Dose Route Start Last Admin Trade Name Freq PRN Reason Stop Dose Admin Heparin Sodium (Porcine) 5,000 unit 12/23/20 06:00 Heparin Sodium,Porcine 5,000 Unit/Ml Vial SUBCUT Q8H [facility] Sodium Chloride 1,000 mls @ 999 mls/hr 12/22/20 23:45 Ns IVCONT 12/23/20 00:45 .Q1H1M EDER Sodium Chloride 1,000 mls @ 200 mls/hr 12/22/20 23:45 Ns IVCONT .Q5H EDER Oxycodone HCl 5 mg 12/22/20 23:46 Oxycodone Hcl Immed Release 5 Mg Tablet PO Q6H PRN Pain, Severe (Pain Scale 7-10) Sodium Chloride 3 ml 12/23/20 00:00 0.9 % Sodium Chloride Flush 3 Ml Syringe IVFLUSH QSHIFT [facility] Home Medications Medication Instructions Recorded Confirmed Last Taken Type aspirin 80 mg PO DAILY 12/04/20 12/23/20 Unknown History bupropion HCl 800 mg PO TID 12/04/20 12/23/20 Unknown History buspirone 30 mg PO BID 12/04/20 12/23/20 Unknown History cyanocobalamin (vitamin B-12) 1,000 mcg PO DAILY 12/04/20 12/23/20 Unknown History [Vitamin B-12] diclofenac sodium 50 mg PO TID PRN 12/04/20 12/23/20 Unknown History ferrous sulfate 325 mg PO DAILY 12/04/20 12/23/20 Unknown History hydroxyzine pamoate 1 cap PO BID PRN 12/04/20 12/23/20 Unknown History lamotrigine 50 mg PO DAILY 12/04/20 12/23/20 Unknown History lamotrigine 150 mg PO BID 12/04/20 12/23/20 Unknown History loratadine 10 mg PO DAILY 12/04/20 12/23/20 Unknown History multivitamin [Daily-Angle] 1 tab PO DAILY 12/04/20 12/23/20 Unknown History propranolol 20 mg PO Q6H PRN 12/04/20 12/23/20 Unknown History topiramate 200 mg PO DAILY 12/04/20 12/23/20 Unknown History gabapentin 800 mg PO TID 12/07/20 12/23/20 Unknown History methadone 95 mg PO DAILY 12/23/20 12/23/20 12/20/20 History Physical Exam Vital Signs and Narrative: Vital Signs: Last Vital Signs Temp 96.9 F 12/22/20 22:00 Pulse 82 12/22/20 22:00 Resp 14 12/22/20 22:00 BP 98/47 L 12/22/20 22:00 Pulse Ox 96 12/22/20 22:00 Body Mass Index 30.7 Gen: Appears be in no acute distress HEENT: NCAT, Moist mucosa. Pulmonary: Vesicular breath sounds, fair air entry CVS: Normal S1-S2 Abdomen: BS+, Soft, tender in the bilateral flanks; no abdominal tenderness. Extremities: Warm well perfused Neuro: Alert and awake. Results Labs CBC and Chem 7: 12/26/20 12:38 12/26/20 12:38 Labs: Laboratory Results - last 24 hr 12/22/20 12/22/20 22:02 22:02 Anion Gap 14 Estim Creat Clear Calc 102.5 Estimated GFR > 60 Random Glucose 93 Calcium 8.5 D Total Bilirubin 0.9 Direct Bilirubin 0.4 AST 335 H ALT 136 H Alkaline Phosphatase 91 D Total Creatine Kinase 50224 H D Total Protein 6.9 Albumin 4.2 Lipase 7 L Imaging Radiologist's Impressions: Impressions Chest X-Ray 12/22/20 21:24 IMPRESSION: No acute cardiopulmonary process seen. Assessment and Plan (1) Rhabdomyolysis: Qualifiers: Rhabdomyolysis type: non-traumatic Qualified Code(s): M62.82 - Rhabdomyolysis Status: Acute 40-year-old female with a past medical history of hep C, polysubstance abuse, anxiety, depression, bipolar, PTSD, history of suicidal ideations, opiate dependence on methadone presented to the hospital with chief complaint of bilateral flank pain. Noted to have rhabdomyolysis. Rhabdomyolysis: Continue IV fluids. Follow up CPK levels. Transaminitis: Patient had prior elevated liver enzymes in the recent admission in November of 2020-during that admission ultrasound showed bilateral biliary tree; seen by Gastroenterology- opined likely related to the drug abuse and recommended nonemergent MRCP as outpatient. Today the patient noted to have higher liver enzymes than prior admission. Also concern related to rhabdomyolysis. Will continue to monitor liver enzymes. Consult Gastroenterology Will defer to the a.m. team for possible MRCP consideration Opiate dependence: Patient was reportedly on methadone. Will defer to the a.m. team to confirm methadone and to resume accordingly. Flank pain: Likely musculoskeletal. Urinalysis pending. Hypokalemia: Repleted Medication reconciliation: Pending; the patient unable to provide list of medications. Will defer to the a.m. team to confirm home medications with the PCP and to resume accordingly. DVT prophylaxis: Subcu heparin Code status: Full code
[2020-12-23] VITALS (8 sets, daily range): BP systolic 100–127; BP diastolic 56–73; PULSE 79–91; RESP 12–20; TEMP 36.6–37.1; O2SAT 98–100
--- NOTE | 2020-12-23 02:34 | PC.NURSE ---
PATIENT REFUSED LABS AND COVID SWAB THAT I NEED A WARM BLANKET AND KEAGAN CORINNA BEFORE YOU TOUCH ME AGAIN . NO WARM BLANKETS AVAILABLE AT THIS TIME, MORE PLACED IN THE WARMER. CONTINUES TO REFUSE UNTIL BLANKETS ARE READY.
--- NOTE | 2020-12-23 08:57 | PC.NURSE ---
pt adamantly refusing to let this nurse place an IV/draw labs and is also refusing to change into hospital gown at this time.
[2020-12-23 09:29] LABS: Basophils Percent Auto 0.7 % (0-2); Eosinophils Absolute Auto 0.1 X10*3/uL (0.0-0.4); Eosinophils Percent Auto 4.5 % (0-4); Hematocrit 40.8 % (37-47); Hemoglobin 13.8 g/dl (12.0-16.0); Lymphocytes Percent Auto 36.4 % (20-40); MANUAL DIFF FLAG NO; Mean Corpuscular HGB Conc 33.8 g/dl (31.0-35.0); Mean Corpuscular Hemoglobin 30.9 pg (27.0-33.0); Mean Corpuscular Volume 91.3 fL (80-98); Monocytes Absolute Auto 0.2 X10*3/uL (0.1-1.2); Monocytes Percent Auto 7.1 % (2-11); Neutrophils Absolute Auto 1.4 X10*3/uL (2.0-8.3); Neutrophils Percent Auto 51.3 % (45-73); Platelet Count 159 X10*3/uL (160-400); Red Blood Count 4.47 X10*6/uL (4.20-5.50); Red Cell Distribution Width 14.4 % (11.0-16.0); White Blood Count 2.7 X10*3/uL (4.8-10.8)
[2020-12-23] MEDS: 0.9 % Sodium Chloride 1,000 ML 999 ML IVCONT (09:37)
[2020-12-23] MEDS: oxyCODONE HCl Immed Release 5 MG TABLET PO ×2 (09:37→23:08)
--- NOTE | 2020-12-23 09:56 | PC.NURSE ---
pt had 18g IV placed in right AC by Dr. Morgan using ultrasound guidance
[2020-12-23 10:02] LABS: Alanine Aminotransferase 123 U/L (0-31); Albumin Level 3.8 g/dL (3.5-5.0); Alkaline Phosphatase 81 U/L (39-117); Anion Gap 11 (12-20); Aspartate Amino Transferase 249 U/L (5-31); Bilirubin Direct 0.3 mg/dL (0.0-0.5); Bilirubin Total 0.5 mg/dL (0.0-1.0); Blood Urea Nitrogen 9 mg/dL (9-16); Calcium 7.7 mg/dL (8.4-10.2); Carbon Dioxide 25 mmol/L (22-29); Chloride 108 mmol/L (96-108); Estimated Glomerular Filt Rate > 60; Glucose Random 90 mg/dL (60-115); Potassium 2.8 mmol/L (3.3-5.1); Sodium 141 mmol/L (135-145); Total Protein 6.2 g/dL (6.5-8.0)
[2020-12-23 10:15] LABS: Influenza A PCR NEGATIVE (Negative); Influenza B PCR NEGATIVE (Negative); Resp Syncy Virus RNA Qual PCR NEGATIVE (Negative); SARS COV2 PCR INHOUSE NEGATIVE (Negative)
--- NOTE | 2020-12-23 10:40 | PC.NURSE ---
pt refused bladder scan, aware.
[2020-12-23] MEDS: 0.9 % Sodium Chloride 1,000 ML 200 ML IVCONT ×2 (10:41→15:44)
[2020-12-23] MEDS: Potassium Chloride Packet 20 MEQ PACKET 40 MEQ PO (10:51)
--- NOTE | 2020-12-23 12:58 | MHC.CM.PN ---
Attempted to meet with patient in regards to discharge planning. Patient currently sleeping. Patient is a frequent patient of [facility]. Patient has a history of mental health and substance abuse issues. Patient is active with [facility] in [place] for Methadone. HCP is on file. Patient has no PCP. No additional services anticipated to be needed at d/c needs. Continue to monitor for d/c needs.
[2020-12-23] MEDS: Acetaminophen 325 MG TABLET 650 MG PO ×2 (13:45→23:08)
[2020-12-23 14:07] LABS: Glucose Urine UA NEG (NEG); Leukocyte Esterase Urine NEG (NEG); Nitrite Urine NEG (NEG); Urine Blood NEG (NEG); Urine Ketones 15 MG/DL (NEG); Urine Protein NEG (NEG-TRACE)
[2020-12-23 14:26] LABS: Appearance Urine CLEAR; Color Urine YELLOW
[2020-12-23 14:29] LABS: UPreg QC Valid YES; Urine Pregnancy NEGATIVE (NEGATIVE)
[2020-12-23 14:34] LABS: Amphetamine Screen Urine Not Detected (Not Detect); Barbiturates, Urine Not Detected (Not Detect); Benzodiazepines Screen Urine POSITIVE (Not Detect); Cannabinoid Screen Urine Not Detected (Not Detect); Cocaine Screen Urine POSITIVE (Not Detect); Opiate Screen Urine POSITIVE (Not Detect); Phencyclidine Screen Urine Not Detected (Not Detect)
--- NOTE | 2020-12-23 14:48 | PC.NURSE ---
Received a call back from [facility] ([phone]) in [place], [place] regarding Methadone dosage for Carlota. Spoke with Paul Rocha (Clinical Director) who verified her dosage at 95mg, last taken 12/20/2020. (Jeramy) aware.
[2020-12-23] MEDS: Potassium Chloride/H20 10 MEQ/100 ML PIGGYBACK 100 MEQ IV ×2 (14:59→16:21)
[2020-12-23] MEDS: Heparin Sodium,Porcine 5,000 UNIT/ML VIAL 5000 UNIT SUBCUT (15:00)
--- NOTE | 2020-12-23 16:06 | P.PNIM_ITS ---
Subjective Subjective Date of Service: 12/26/20 Interval History: rhabodomylysis ? cocaine related , patient has similar episode last month also. Review of Systems still has body pains denies any chest pain or sob . Denies any abdominal pain currently or nausea or vomiting. Keeps saying have all body pains , want to talk much. She did not take methadone ? today Physical Exam Vital Signs: Vital Signs: Last Vital Signs Temp 97.8 F 12/23/20 10:18 Pulse 89 12/23/20 14:58 Resp 20 12/23/20 14:58 BP 122/73 12/23/20 14:58 Pulse Ox 100 12/23/20 14:56 Body Mass Index 30.7 Physical exam: Constitutional: Body aches, anxious Cvs: rrr, [id number] , no murmur res: clear to auscultation ,no rhonchii or wheezing abd: no rebound or guarding ,nt, bs present. ext pulses present , no cyanosis neuro: axo3 , nonfocal. Objective Data Current Medications Generic Name Dose Route Start Last Admin Trade Name Josesitoq PRN Reason Stop Dose Admin Acetaminophen 650 mg 12/23/20 13:35 12/23/20 13:45 Acetaminophen 325 Mg Tablet PO 650 mg Q6H PRN Administration headaches Aspirin 80 mg 12/24/20 09:00 Aspirin 81 Mg Tab.Chew PO DAILY [facility] Cyanocobalamin 1,000 mcg 12/24/20 09:00 Cyanocobalamin (Vitamin B-12) 1,000 Mcg Tablet PO DAILY [facility] Heparin Sodium (Porcine) 5,000 unit 12/23/20 06:00 12/23/20 15:00 Heparin Sodium,Porcine 5,000 Unit/Ml Vial SUBCUT 5,000 unit Q8H EDER Administration Hydroxyzine HCl 50 mg 12/23/20 15:57 Hydroxyzine Hcl 50 Mg Tablet PO BID PRN anxiety Sodium Chloride 1,000 mls @ 150 mls/hr 12/22/20 23:45 12/23/20 15:44 Ns IVCONT 200 mls/hr .Q6H40M EDER Administration Lamotrigine 25 mg 12/23/20 21:00 Lamotrigine 25 Mg Tablet PO BID EDER Lamotrigine 25 mg 12/23/20 21:00 Lamotrigine 25 Mg Tablet PO BID [facility] Loratadine 10 mg 12/24/20 09:00 Loratadine 10 Mg Tablet PO DAILY [facility] Methadone HCl 95 mg 12/23/20 16:05 Methadone Hcl 1 Mg/0.1 Ml Oral.Conc PO DAILY [facility] Multivitamins/Vitamin C 1 tab 12/24/20 09:00 Multivitamin Tablet PO DAILY [facility] Non-Formulary Medication 325 mg 12/24/20 09:00 Ferrous Sulfate PO DAILY [facility] Oxycodone HCl 5 mg 12/22/20 23:46 12/23/20 09:37 Oxycodone Hcl Immed Release 5 Mg Tablet PO 5 mg Q6H PRN Administration Pain, Severe (Pain Scale 7-10) Propranolol HCl 20 mg 12/23/20 15:57 Propranolol Hcl 20 Mg Tablet PO Q6H PRN Anxiety Protocol Sodium Chloride 3 ml 12/23/20 00:00 12/23/20 10:32 0.9 % Sodium Chloride Flush 3 Ml Syringe IVFLUSH Not Given QSHIFT [facility] Topiramate 200 mg 12/24/20 09:00 Topiramate 100 Mg Tablet PO DAILY [facility] Labs CBC & Chem 7: 12/23/20 09:20 12/25/20 09:05 Assessment and Plan (1) Rhabdomyolysis: Status: Acute (2) Acute hypokalemia: Status: Acute Assessment and Plan: 40-year-old female with a past medical history of anxiety, depression, PTSD, bipolar, substance abuse, hep C, opiate dependence on methadone, history of colitis, CVA, JOSEPHINE secondary to rhabdomyolysis, history of suicidal/homicidal ideations presented to the hospital with a chief complaint of altered mental status 1.Rhabdomyolysis: receiving fluid Monitor CPK U tox was positive for cocaine /benzo/opoids has recent episode also last month also she did not have any flank pain when seen this morning , as per staff urinating well. 2.History of drug abuse continue methadone 3.Transaminitis last admission -CT abdomen shows CBD dilatation. lft's trending down' seen by Gi-last admits it was thought to be due to sustance related elevation recomended outpatient mrcp will add Gi eval if she needs any further workup. 4. history of mood disorder started on psych medication-on lamictal,topamax, hydroxyzine 5.opoid use : ? on methdone
--- NOTE | 2020-12-23 16:20 | PC.NURSE ---
pt ate 100% of vanilla pudding
[2020-12-23] MEDS: 0.9 % Sodium Chloride Flush 3 ML SYRINGE IVFLUSH (16:21)
--- NOTE | 2020-12-23 16:26 | PC.NURSE ---
pt voided 400ml of yellow urine earlier in commode, pt is ADAMANTLY refusing to be bladder scanned. MARIAN EDWARDS IS AWARE,
--- NOTE | 2020-12-23 17:10 | PC.NURSE ---
PT ATE ICE CREAM AND ZAINAB CRACKERS (2).
--- NOTE | 2020-12-23 18:00 | PC.NURSE ---
pt ate half of cheese burger and a couple pieces of fries. pt c/o increase lower back pain with movement. pt assisted to a w/c and taken to br stating that she needs to have a bm. po fluids encouraged.
--- NOTE | 2020-12-23 18:20 | PC.NURSE ---
pt voided sm amt of urine and bm in toilet.
--- NOTE | 2020-12-23 22:38 | PC.NURSE ---
LAMICTAL DOSE NEEDED TO BE CORRECTED WITH PHARMACY, CONFIRMED WITH PATIENT. DELAY IN ADMINISTRATION. PT ALSO ASKING FOR MEDICATIONS FOR PAIN CONTROL.
[2020-12-23] MEDS: lamoTRIgine 25 MG TABLET 50 MG PO (23:08)
--- NOTE | 2020-12-24 01:13 | PC.NURSE ---
report given to RN, pt ready for transport.
[2020-12-24] MEDS: Heparin Sodium,Porcine 5,000 UNIT/ML VIAL 5000 UNIT SUBCUT ×3 (02:03→20:33)
[2020-12-24] MEDS: 0.9 % Sodium Chloride 1,000 ML 150 ML IVCONT ×4 (02:11→22:51)
[2020-12-24] MEDS: 0.9 % Sodium Chloride Flush 3 ML SYRINGE IVFLUSH ×3 (02:13→22:51)
[2020-12-24 03:42] VITALS: BP 114/60; PULSE 69; RESP 14; TEMP 36.6; O2SAT 98
[2020-12-24 07:59] VITALS: BP 123/61; PULSE 68; RESP 18; TEMP 36.3; O2SAT 100
--- NOTE | 2020-12-24 09:15 | P.CNGI_ITS ---
History of Present Illness Data of Consult Service Date: 12/24/20 Requesting physician: Rubin Saeed Primary Care Provider: Unknown Physician HPI Reason for consult: abn LFT 40-year-old female with a past medical history of polysubstance abuse, PTSD, bipolar, history of hep C, depression, opiate dependence on methadone who I am asked to see for assessment for abn LFT. She initially presented to the hospital chief complaint of bilateral flank pain but no urine complaints, . Now she has weakness and muscle pain all over her body. She has been using cocaine and had snorted few days before. Denies tylenol or nsaid use, no recent new medications or herbal meds. Denies any fevers chills cough. Denies any falls. Denies any chest pain palpitations lightheadedness or dizziness. labs revealed marked raised CK with raised AST/ALT. imaging revealed mild dilated CBD she says she also has untreated hep C she had similar presentation 11/2020 liver elevations thought to be due to rhabdo and not necessarily all liver related Review of Systems Review of Systems: still has body pains denies any chest pain or sob . Denies any abdominal pain currently or nausea or vomiting. Keeps saying have all body pains , want to talk much. She did not take methadone ? today Cardiovascular: Cardiovascular: Reports no additional cardiovascular complaints Respiratory: Respiratory: Reports no additional respiratory complaints PMFSH Past Medical History Medical History No known health problems Social History Social History Household Members: Unknown / Unable to assess Alcohol intake: former Smoking Status: Light tobacco smoker Use of substances other than those prescribed or required for medical reasons: Yes Substance Use Type: Prescription Drugs Currently Displaying Signs/Symptoms of Drug Intoxication Withdrawal: No Advance Directives: No Advance Directives Information Provided: No Do you have thoughts of harming others: None Do you have a plan to hurt others: No Plan service: No Current occupational status: unemployed Meds Allergies Allergy/AdvReac Type Severity Reaction Status Date / Time azithromycin [AZITHROMYCIN] Allergy Unknown UNK Verified 08/24/20 16:06 erythromycin base Allergy Unknown RASH Verified 08/24/20 16:06 [ERYTHROMYCIN BASE] olanzapine [From ZYPREXA] Allergy Unknown PEDAL EDEMA Verified 08/24/20 16:06 quetiapine [From SEROQUEL] Allergy Unknown THROAT Verified 08/24/20 16:06 SWELLING risperidone [From RISPERDAL] Allergy Unknown TWITCHING Verified 08/24/20 16:06 shellfish derived Allergy Unknown VOMITING Verified 08/24/20 16:06 [SHELLFISH DERIVED] sulfamethoxazole Allergy Unknown ITCHING Verified 08/24/20 16:06 [From BACTRIM] trimethoprim [From BACTRIM] Allergy Unknown ITCHING Verified 08/24/20 16:06 arithromiosin Allergy Unknown Unknown Uncoded 08/24/20 16:06 gluten Allergy Unknown Unknown Uncoded 08/24/20 16:06 sea food Allergy Unknown Unknown Uncoded 08/24/20 16:06 Sulfacet-R Allergy Unknown Unknown Uncoded 08/24/20 16:06 SEAFOOD AdvReac Unknown VOMIT Uncoded 06/07/20 15:47 Active Medications: Current Medications Generic Name Dose Route Start Last Admin Trade Name Freq PRN Reason Stop Dose Admin Acetaminophen 650 mg 12/23/20 13:35 12/23/20 23:08 Acetaminophen 325 Mg Tablet PO 650 mg Q6H PRN Administration headaches Aspirin 81 mg 12/24/20 09:00 Aspirin 81 Mg Tab.Chew PO DAILY [facility] Cyanocobalamin 1,000 mcg 12/24/20 09:00 Cyanocobalamin (Vitamin B-12) 1,000 Mcg Tablet PO DAILY [facility] Ferrous Sulfate 324 mg 12/24/20 09:00 Ferrous Sulfate 324 Mg Tablet.Dr PO DAILY [facility] Heparin Sodium (Porcine) 5,000 unit 12/23/20 06:00 12/24/20 07:59 Heparin Sodium,Porcine 5,000 Unit/Ml Vial SUBCUT Not Given Q8H [facility] Hydroxyzine HCl 50 mg 12/23/20 15:57 Hydroxyzine Hcl 50 Mg Tablet PO BID PRN anxiety Sodium Chloride 1,000 mls @ 150 mls/hr 12/22/20 23:45 12/24/20 06:18 Ns IVCONT Not Given .Q6H40M [facility] Lamotrigine 150 mg 12/24/20 09:00 Lamotrigine 100 Mg Tablet PO BID [facility] Lamotrigine 50 mg 12/24/20 09:00 12/23/20 23:08 Lamotrigine 25 Mg Tablet PO 50 mg DAILY [facility] Administration Loratadine 10 mg 12/24/20 09:00 Loratadine 10 Mg Tablet PO DAILY [facility] Methadone HCl 90 mg 12/23/20 16:15 12/23/20 17:41 Methadone Hcl 1 Mg/0.1 Ml Oral.Conc PO 90 mg DAILY [facility] Administration Multivitamins/Vitamin C 1 tab 12/24/20 09:00 Multivitamin Tablet PO DAILY [facility] Oxycodone HCl 5 mg 12/22/20 23:46 12/23/20 23:08 Oxycodone Hcl Immed Release 5 Mg Tablet PO 5 mg Q6H PRN Administration Pain, Severe (Pain Scale 7-10) Propranolol HCl 20 mg 12/23/20 15:57 Propranolol Hcl 20 Mg Tablet PO Q6H PRN Anxiety Protocol Sodium Chloride 3 ml 12/23/20 00:00 12/24/20 02:13 0.9 % Sodium Chloride Flush 3 Ml Syringe IVFLUSH 3 ml QSHIFT [facility] Administration Topiramate 200 mg 12/24/20 09:00 Topiramate 100 Mg Tablet PO DAILY [facility] Home Medications Medication Instructions Recorded Confirmed Last Taken Type aspirin 80 mg PO DAILY 12/04/20 12/23/20 Unknown History bupropion HCl 800 mg PO TID 12/04/20 12/23/20 Unknown History buspirone 30 mg PO BID 12/04/20 12/23/20 Unknown History cyanocobalamin (vitamin B-12) 1,000 mcg PO DAILY 12/04/20 12/23/20 Unknown History [Vitamin B-12] diclofenac sodium 50 mg PO TID PRN 12/04/20 12/23/20 Unknown History ferrous sulfate 325 mg PO DAILY 12/04/20 12/23/20 Unknown History hydroxyzine pamoate 1 cap PO BID PRN 12/04/20 12/23/20 Unknown History lamotrigine 50 mg PO DAILY 12/04/20 12/23/20 Unknown History lamotrigine 150 mg PO BID 12/04/20 12/23/20 Unknown History loratadine 10 mg PO DAILY 12/04/20 12/23/20 Unknown History multivitamin [Daily-Angle] 1 tab PO DAILY 12/04/20 12/23/20 Unknown History propranolol 20 mg PO Q6H PRN 12/04/20 12/23/20 Unknown History topiramate 200 mg PO DAILY 12/04/20 12/23/20 Unknown History gabapentin 800 mg PO TID 12/07/20 12/23/20 Unknown History methadone 95 mg PO DAILY 12/23/20 12/23/20 12/20/20 History Physical Exam Vital Signs: Vital Signs: Last Vital Signs Temp 97.4 F 12/24/20 07:59 Pulse 68 12/24/20 07:59 Resp 18 12/24/20 07:59 BP 123/61 12/24/20 07:59 Pulse Ox 100 12/24/20 07:59 Body Mass Index 30.7 Const: General: cooperative Orientation/consciousness: patient oriented x3 Eyes: General: appearance normal, both eyes and all related structures Resp: Effort & Inspection: normal respiratory effort and able to speak in complete sentences Auscultation: clear to auscultation bilaterally Cardio: Rhythm: regular rhythm Heart sounds: S1 normal heart sound present and S2 normal heart sound present Bruits: no abdominal aortic bruits GI: Inspection: Yes normal to inspection Palpation (GI): No Abdominal aortic bruit present Percussion: Yes normal to percussion Auscultation: normal bowel sounds Skin: Other: No muscle swelling or cellulitis General skin exam: no rashes or lesions noted Neuro: General: patient oriented x3 Cognition (Neuro): normal cognition Psych: Thought process: Normal thought process present Results Labs CBC & Chem 7: 12/23/20 09:20 12/23/20 09:20 Labs: Short CBC 12/23/20 Range/Units 09:20 WBC 2.7 L (4.8-10.8) X10*3/uL Hgb 13.8 (12.0-16.0) g/dl Hct 40.8 (37-47) % Plt Count 159 L (160-400) X10*3/uL BMP 12/23/20 09:20 Sodium 141 Potassium 2.8 L Chloride 108 Carbon Dioxide 25 BUN 9 Creatinine 0.67 Calcium 7.7 L D Cardiac Enzymes 12/23/20 Range/Units 09:20 Total Creatine Kinase 6987 H D (26-140) U/L Liver Function 12/23/20 Range/Units 09:20 Total Bilirubin 0.5 (0.0-1.0) mg/dL Direct Bilirubin 0.3 (0.0-0.5) mg/dL AST 249 H (5-31) U/L ALT 123 H (0-31) U/L Alkaline Phosphatase 81 (39-117) U/L Albumin 3.8 (3.5-5.0) g/dL Urine 12/23/20 Range/Units 14:05 Urine Color YELLOW Urine Appearance CLEAR Urine pH 6.0 (5.0-8.0) Ur Specific Winder 1.020 (1.005-1.025) Urine Protein NEG (NEG-TRACE) MG/DL Urine Glucose (UA) NEG (NEG) MG/DL Assessment and Plan (1) Transaminitis: Status: Acute (2) Rhabdomyolysis: Qualifiers: Rhabdomyolysis type: non-traumatic Qualified Code(s): M62.82 - Rhabdomyolysis Status: Acute 1/ AST/ALT elevation are probably result of cocaine induced rhabdomyolosis, numbers coming down with fluids and resuscitation. LFT may never fully normalize as she has hep C in the background. She has no evidence of compartment syndrome or myofascitis. PLAN: 1/ cont with fluids, treat lyte abnormalities as doing and monitor K,Ca, PO4, uric acid levels 2/ check hep a, b--if numbers worsen then check cmv,hsv and ebv, hep e status 3/ o/p f/u for hep c
[2020-12-24] MEDS: Aspirin 81 MG TAB.CHEW PO (09:26)
[2020-12-24] MEDS: Loratadine 10 MG TABLET PO (09:26)
[2020-12-24] MEDS: lamoTRIgine 25 MG TABLET 50 MG PO (09:26)
[2020-12-24] MEDS: lamoTRIgine 100 MG TABLET 150 MG PO ×2 (09:27→20:34)
[2020-12-24] MEDS: Ferrous Sulfate 324 MG TABLET.DR PO (09:27)
[2020-12-24] MEDS: Multivitamin TABLET 1 TAB PO (09:27)
[2020-12-24] MEDS: Cyanocobalamin (Vitamin B-12) 1,000 MCG TABLET 1000 MCG PO (09:27)
[2020-12-24] MEDS: Topiramate 100 MG TABLET 200 MG PO (09:27)
[2020-12-24] MEDS: Potassium Chloride ER 20 MEQ TAB.ER.PRT 40 MEQ PO (09:27)
--- NOTE | 2020-12-24 10:53 | MHC.RECOVRN ---
40 year old female presented to [facility] ED via ambulance on 12/22/20 due to PT C/O WORSENING LOW BACK PAIN X3 DAYS. PT STS WAS [place] TODAY WITH FRIEND WHEN PAIN GOT TOO SEVERE SO CALLED EMS. NO RELIEF FROM LIDOCAINE PATCHES AT HOME per diesel technician. Pt subsequently admitted due to rhabdomyolysis. T/w met with pt in 450 after consult was placed to CARE Team. Pt recently completed ATS at [facility] and left [facility] from their CSS program. Pt reported to t/w that patient had used IV heroin, cocaine, and benzodiazepines for 2 days prior to admission to [facility]. Pt states and then I couldn't walk. I paid $20 for someone to call an ambulance. Pt is currently c/o 8/10 pain all over, but mostly in my back. Pt is currently on methadone, 90 mg daily through [facility] x 2 years. After d/c from [facility] pt would like to return to CSS level of care. Pt states I don't want to go out there and do the same thing and end up paralyzed. Pt motivated to begin recovery. Referrals for CSS will be placed. Will continue to follow.
--- NOTE | 2020-12-24 11:16 | HO.PM.IMPN ---
Subjective Subjective Date of Service: 12/24/20 Interval History: achey Cardiovascular Cardiovascular: Reports no additional cardiovascular complaints Respiratory Respiratory: Reports no additional respiratory complaints Physical Exam Vital Signs: Vital Signs: Last Vital Signs Temp 97.4 F 12/24/20 07:59 Pulse 68 12/24/20 07:59 Resp 18 12/24/20 07:59 BP 123/61 12/24/20 07:59 Pulse Ox 100 12/24/20 07:59 Body Mass Index 30.7 General: lethargic O X 3, ill appearing Resp: CTA bilateral CVS: S1,S2,RRR GI: soft, non tender, non distended Neuro: motor grossly intact Psych: appropriate affect Objective Data Current Medications Generic Name Dose Route Start Last Admin Trade Name Freq PRN Reason Stop Dose Admin Acetaminophen 650 mg 12/23/20 13:35 12/23/20 23:08 Acetaminophen 325 Mg Tablet PO 650 mg Q6H PRN Administration headaches Aspirin 81 mg 12/24/20 09:00 12/24/20 09:26 Aspirin 81 Mg Tab.Chew PO 81 mg DAILY [facility] Administration Cyanocobalamin 1,000 mcg 12/24/20 09:00 12/24/20 09:27 Cyanocobalamin (Vitamin B-12) 1,000 Mcg Tablet PO 1,000 mcg DAILY [facility] Administration Ferrous Sulfate 324 mg 12/24/20 09:00 12/24/20 09:27 Ferrous Sulfate 324 Mg Tablet.Dr PO 324 mg DAILY [facility] Administration Heparin Sodium (Porcine) 5,000 unit 12/23/20 06:00 12/24/20 07:59 Heparin Sodium,Porcine 5,000 Unit/Ml Vial SUBCUT Not Given Q8H [facility] Hydroxyzine HCl 50 mg 12/23/20 15:57 Hydroxyzine Hcl 50 Mg Tablet PO BID PRN anxiety Sodium Chloride 1,000 mls @ 150 mls/hr 12/22/20 23:45 12/24/20 09:25 Ns IVCONT 150 mls/hr .Q6H40M [facility] Administration Lamotrigine 150 mg 12/24/20 09:00 12/24/20 09:27 Lamotrigine 100 Mg Tablet PO 150 mg BID [facility] Administration Lamotrigine 50 mg 12/24/20 09:00 12/24/20 09:26 Lamotrigine 25 Mg Tablet PO 50 mg DAILY [facility] Administration Loratadine 10 mg 12/24/20 09:00 12/24/20 09:26 Loratadine 10 Mg Tablet PO 10 mg DAILY [facility] Administration Methadone HCl 90 mg 12/23/20 16:15 12/24/20 09:28 Methadone Hcl 1 Mg/0.1 Ml Oral.Conc PO 90 mg DAILY [facility] Administration Multivitamins/Vitamin C 1 tab 12/24/20 09:00 12/24/20 09:27 Multivitamin Tablet PO 1 tab DAILY [facility] Administration Oxycodone HCl 5 mg 12/22/20 23:46 12/23/20 23:08 Oxycodone Hcl Immed Release 5 Mg Tablet PO 5 mg Q6H PRN Administration Pain, Severe (Pain Scale 7-10) Propranolol HCl 20 mg 12/23/20 15:57 Propranolol Hcl 20 Mg Tablet PO Q6H PRN Anxiety Protocol Sodium Chloride 3 ml 12/23/20 00:00 12/24/20 09:25 0.9 % Sodium Chloride Flush 3 Ml Syringe IVFLUSH Not Given QSHIFT [facility] Topiramate 200 mg 12/24/20 09:00 12/24/20 09:27 Topiramate 100 Mg Tablet PO 200 mg DAILY [facility] Administration Labs CBC & Chem 7: 12/23/20 09:20 12/23/20 09:20 Assessment and Plan (1) Rhabdomyolysis: Status: Acute (2) Acute hypokalemia: Status: Acute Assessment and Plan: 40-year-old female with a past medical history of anxiety, depression, PTSD, bipolar, substance abuse, hep C, opiate dependence on methadone, history of colitis, CVA, JOSEPHINE secondary to rhabdomyolysis, history of suicidal/homicidal ideations presented to the hospital with a chief complaint of altered mental status Rhabdomyolysis: continuing IVF Monitor CPK U tox was positive for cocaine /benzo/opoids has recent episode also last month also History of opioid dependence continue methadone hypokalemia replace monitor transaminitis hcv and rhabdo mood disorder started on psych medication- on lamictal,topamax, hydroxyzine
--- NOTE | 2020-12-24 11:30 | MHC.CM.PN ---
per multi dis rounds no anticipated dc date at this time pt still getting iv fluids
[2020-12-24 11:35] VITALS: BP 112/63; PULSE 67; RESP 18; TEMP 36.3; O2SAT 97
[2020-12-24] MEDS: oxyCODONE HCl Immed Release 5 MG TABLET PO ×2 (11:53→20:35)
--- NOTE | 2020-12-24 12:05 | MHC.RECOVRN ---
Pt aware that [facility] is not accepting patients at this time. Patient is open to go anywhere. Will continue to follow.
--- NOTE | 2020-12-24 12:09 | MHC.CM.PN ---
per panfilo from recovery support team..pt is interested in css ,recovery team is searching for a bed
[2020-12-24 15:25] VITALS: BP 112/61; PULSE 70; RESP 18; TEMP 36.6; O2SAT 97
--- NOTE | 2020-12-24 16:12 | MHC.RECOVRN ---
Referral has been faxed to [facility]. Will continue to follow.
[2020-12-24 19:14] VITALS: BP 123/68; PULSE 64; RESP 18; TEMP 37.3; O2SAT 97
[2020-12-24] MEDS: Acetaminophen 325 MG TABLET 650 MG PO (20:35)
[2020-12-25] VITALS (7 sets, daily range): BP systolic 97–139; BP diastolic 57–84; PULSE 63–74; RESP 18–19; TEMP 36.1–37.1; O2SAT 96–98
[2020-12-25] MEDS: 0.9 % Sodium Chloride 1,000 ML 150 ML IVCONT (03:30)
[2020-12-25] MEDS: Heparin Sodium,Porcine 5,000 UNIT/ML VIAL 5000 UNIT SUBCUT (06:03)
[2020-12-25] MEDS: 0.9 % Sodium Chloride Flush 3 ML SYRINGE IVFLUSH ×2 (07:39→17:20)
[2020-12-25] MEDS: Topiramate 100 MG TABLET 200 MG PO (07:39)
[2020-12-25] MEDS: Loratadine 10 MG TABLET PO (07:39)
[2020-12-25] MEDS: lamoTRIgine 25 MG TABLET 50 MG PO (07:39)
[2020-12-25] MEDS: Cyanocobalamin (Vitamin B-12) 1,000 MCG TABLET 1000 MCG PO (07:40)
[2020-12-25] MEDS: Ferrous Sulfate 324 MG TABLET.DR PO (07:40)
[2020-12-25] MEDS: Aspirin 81 MG TAB.CHEW PO (07:40)
[2020-12-25] MEDS: Multivitamin TABLET 1 TAB PO (07:40)
[2020-12-25] MEDS: lamoTRIgine 100 MG TABLET 150 MG PO ×2 (07:40→20:03)
--- NOTE | 2020-12-25 08:43 | MHC.RECOVRN ---
Pts referral to [facility] is under review for CSS level of care. T/w spoke with Sonia Barr (phone [phone]) who will notify t/w once the review is complete.
--- NOTE | 2020-12-25 09:36 | MHC.RECOVRN ---
T/w met with pt to inform her of [facility] reviewing referral. Pt states I don't even know how they can discharge me, I can't walk. Pt anxious regarding being discharged prior to feeling comfortable. Case discussed with pts RN who has also been encouraging pt to sit up and attempt moving more. Will continue to follow.
[2020-12-25 09:54] LABS: Alanine Aminotransferase 91 U/L (0-31); Albumin Level 3.7 g/dL (3.5-5.0); Alkaline Phosphatase 85 U/L (39-117); Aspartate Amino Transferase 90 U/L (5-31); Bilirubin Direct 0.2 mg/dL (0.0-0.5); Bilirubin Total 0.4 mg/dL (0.0-1.0); Blood Urea Nitrogen 7 mg/dL (9-16); Creatinine Clr Calc Pharmacy 115.8; Estimated Glomerular Filt Rate > 60; Glucose Fasting 97 mg/dL (60-99); Magnesium 1.8 mg/dL (1.6-2.6); Total Protein 6.1 g/dL (6.5-8.0)
[2020-12-25 10:07] LABS: Anion Gap 11 (12-20); Calcium 8.3 mg/dL (8.4-10.2); Carbon Dioxide 24 mmol/L (22-29); Chloride 110 mmol/L (96-108); Potassium 4.1 mmol/L (3.3-5.1); Sodium 141 mmol/L (135-145)
--- NOTE | 2020-12-25 12:15 | MHC.RECOVRN ---
T/w informed pt that [facility] would be able to complete a phone intake for CSS level of care however pt is in need of STR. T/w discussed with pt that [facility] would be placing referrals. T/w will continue to be available if needed.
--- NOTE | 2020-12-25 12:44 | MHC.CM.PN ---
per physical therapy pt will need str when dcd referrals made to only facilities that will accep[t metadone for substance abuse
--- NOTE | 2020-12-25 13:00 | HO.PM.IMPN ---
Subjective Subjective Date of Service: 12/25/20 Interval History: weak, cant walk Cardiovascular Cardiovascular: Reports no additional cardiovascular complaints Respiratory Respiratory: Reports no additional respiratory complaints Gastrointestinal Gastrointestinal: Reports no additional gastrointestinal complaints Physical Exam Vital Signs: Vital Signs: Last Vital Signs Temp 97 F 12/25/20 10:51 Pulse 74 12/25/20 10:51 Resp 18 12/25/20 10:51 BP 104/59 L 12/25/20 10:51 Pulse Ox 97 12/25/20 10:51 Body Mass Index 30.7 General: lethargic O X 3, weak appearing Resp: CTA bilateral CVS: S1,S2,RRR GI: soft, non tender, non distended Neuro: no focal deficits, overall weak and non participatory in exam Psych: appropriate affect Objective Data Current Medications Generic Name Dose Route Start Last Admin Trade Name Freq PRN Reason Stop Dose Admin Acetaminophen 650 mg 12/23/20 13:35 12/24/20 20:35 Acetaminophen 325 Mg Tablet PO 650 mg Q6H PRN Administration headaches Aspirin 81 mg 12/24/20 09:00 12/25/20 07:40 Aspirin 81 Mg Tab.Chew PO 81 mg DAILY [facility] Administration Cyanocobalamin 1,000 mcg 12/24/20 09:00 12/25/20 07:40 Cyanocobalamin (Vitamin B-12) 1,000 Mcg Tablet PO 1,000 mcg DAILY [facility] Administration Ferrous Sulfate 324 mg 12/24/20 09:00 12/25/20 07:40 Ferrous Sulfate 324 Mg Tablet. PO 324 mg DAILY [facility] Administration Heparin Sodium (Porcine) 5,000 unit 12/23/20 06:00 12/25/20 06:03 Heparin Sodium,Porcine 5,000 Unit/Ml Vial SUBCUT 5,000 unit Q8H [facility] Administration Hydroxyzine HCl 50 mg 12/23/20 15:57 Hydroxyzine Hcl 50 Mg Tablet PO BID PRN anxiety Lamotrigine 150 mg 12/24/20 09:00 12/25/20 07:40 Lamotrigine 100 Mg Tablet PO 150 mg BID [facility] Administration Lamotrigine 50 mg 12/24/20 09:00 12/25/20 07:39 Lamotrigine 25 Mg Tablet PO 50 mg DAILY [facility] Administration Loratadine 10 mg 12/24/20 09:00 12/25/20 07:39 Loratadine 10 Mg Tablet PO 10 mg DAILY [facility] Administration Methadone HCl 90 mg 12/23/20 16:15 12/25/20 07:40 Methadone Hcl 1 Mg/0.1 Ml Oral.Conc PO 90 mg DAILY [facility] Administration Multivitamins/Vitamin C 1 tab 12/24/20 09:00 12/25/20 07:40 Multivitamin Tablet PO 1 tab DAILY [facility] Administration Oxycodone HCl 5 mg 12/22/20 23:46 12/24/20 20:35 Oxycodone Hcl Immed Release 5 Mg Tablet PO 5 mg Q6H PRN Administration Pain, Severe (Pain Scale 7-10) Propranolol HCl 20 mg 12/23/20 15:57 Propranolol Hcl 20 Mg Tablet PO Q6H PRN Anxiety Protocol Sodium Chloride 3 ml 12/23/20 00:00 12/25/20 07:39 0.9 % Sodium Chloride Flush 3 Ml Syringe IVFLUSH 3 ml QSHIFT [facility] Administration Topiramate 200 mg 12/24/20 09:00 12/25/20 07:39 Topiramate 100 Mg Tablet PO 200 mg DAILY [facility] Administration Labs CBC & Chem 7: 12/23/20 09:20 12/25/20 09:05 Assessment and Plan (1) Rhabdomyolysis: Status: Acute (2) Acute hypokalemia: Status: Acute Assessment and Plan: 40-year-old female with a past medical history of anxiety, depression, PTSD, bipolar, substance abuse, hep C, opiate dependence on methadone, history of colitis, CVA, JOSEPHINE secondary to rhabdomyolysis, history of suicidal/homicidal ideations presented to the hospital with a chief complaint of altered mental status Rhabdomyolysis: resolved, will dc fluids U tox was positive for cocaine /benzo/opoids has recent episode also last month also History of opioid dependence continue methadone hypokalemia replaced, monitor transaminitis hcv and rhabdo mood disorder started on psych medication- on lamictal,topamax, hydroxyzine dispo: patient deconditioned and weak, will need STR at SNF, likely [facility] due to methadone treatment
--- NOTE | 2020-12-25 13:05 | MHC.CM.PN ---
HCP COMPLETED AND PLACED ON CHART
[2020-12-26] MEDS: 0.9 % Sodium Chloride Flush 3 ML SYRINGE IVFLUSH ×2 (00:01→08:29)
[2020-12-26 04:00] VITALS: BP 114/65; PULSE 63; RESP 20; TEMP 36.8; O2SAT 98
[2020-12-26 07:23] VITALS: BP 119/56; PULSE 61; RESP 18; TEMP 36.8; O2SAT 98
[2020-12-26] MEDS: Multivitamin TABLET 1 TAB PO (08:25)
[2020-12-26] MEDS: Aspirin 81 MG TAB.CHEW PO (08:25)
[2020-12-26] MEDS: Topiramate 100 MG TABLET 200 MG PO (08:25)
[2020-12-26] MEDS: lamoTRIgine 25 MG TABLET 50 MG PO (08:26)
[2020-12-26] MEDS: Loratadine 10 MG TABLET PO (08:26)
[2020-12-26] MEDS: lamoTRIgine 100 MG TABLET 150 MG PO ×2 (08:26→20:01)
[2020-12-26] MEDS: Ferrous Sulfate 324 MG TABLET.DR PO (08:26)
[2020-12-26] MEDS: Cyanocobalamin (Vitamin B-12) 1,000 MCG TABLET 1000 MCG PO (08:26)
--- NOTE | 2020-12-26 10:34 | P.DS_ITS ---
DS: Providers Provider Date of Service: 12/26/20 Date of admission: 12/22/20 23:46 Primary care physician: Unknown Physician Consults: 12/22/20 23:50 Consult to Gastroenterology Routine Consulting Provider: Nathan Valentin Reason for consultation: trasnaminitis 12/23/20 18:41 Consult to Care Team Routine Comment: Reason for consultation: caocaie use Consult to Psychiatry Routine Consulting Provider: [facility] [place] [facility] Reason for consultation: MOOD DIS -ON MULTIPLE PSYCH MEDICATION DS: Diagnosis Discharge Diagnosis (1) Rhabdomyolysis: Status: Acute (2) Acute hypokalemia: Status: Acute (3) Transaminitis: Status: Acute (4) Cocaine abuse: Status: Acute (5) Opioid dependence: Status: Acute DS: Medications Discharge Medications Home Medications: Home Medications Medication Instructions Recorded Confirmed aspirin 80 mg PO DAILY 12/04/20 12/23/20 bupropion HCl 800 mg PO TID 12/04/20 12/23/20 buspirone 30 mg PO BID 12/04/20 12/23/20 cyanocobalamin (vitamin B-12) 1,000 mcg PO DAILY 12/04/20 12/23/20 [Vitamin B-12] diclofenac sodium 50 mg PO TID PRN 12/04/20 12/23/20 ferrous sulfate 325 mg PO DAILY 12/04/20 12/23/20 hydroxyzine pamoate 1 cap PO BID PRN 12/04/20 12/23/20 lamotrigine 50 mg PO DAILY 12/04/20 12/23/20 lamotrigine 150 mg PO BID 12/04/20 12/23/20 loratadine 10 mg PO DAILY 12/04/20 12/23/20 multivitamin [Daily-Angle] 1 tab PO DAILY 12/04/20 12/23/20 propranolol 20 mg PO Q6H PRN 12/04/20 12/23/20 topiramate 200 mg PO DAILY 12/04/20 12/23/20 gabapentin 800 mg PO TID 12/07/20 12/23/20 methadone 95 mg PO DAILY 12/23/20 12/23/20 DS: Summary Hospital Course Hospital Course: Admission note HPI 40-year-old female with a past medical history of polysubstance abuse, PTSD, bipolar, history of hep C, depression, opiate dependence on methadone presented to the hospital chief complaint of bilateral flank pain. Patient is a poor historian. Most of the history obtained from the ER staff and records. Reportedly the patient been having bilateral flank pain for the past 4 days and have been gradually worsening. Hence presented to the ER for further evaluation. Denies any fevers chills cough. Denies any urinary complaints. Denies any falls. Denies any chest pain palpitations lightheadedness or dizziness. Review of all other systems is negative except mentioned above Hospital course Patient was admitted to the hospital for treatment of rhabdomyolysis and acute kidney injury secondary to drug abuse similar to previous incident. The patient was treated with IV fluids with good response over the course of hospital stay as CK drop down along with creatinine which went back to baseline. She was able to tolerate diet. U tox was positive for cocaine /benzo/opoids. She was advised complete abstinence. Noticed to have mildly elevated liver enzymes at time presentation. Negative for infection. Evaluated by GI who recommended outpatient follow-up. Evaluated by physical therapy team who recommended short-term rehab. Time Spent with Patient Time attestation: Total time spent providing and/or coordinating discharge services: Discharge coordination time: Greater than 30 minutes Physical Exam Vital Signs: Vital Signs: Last Vital Signs Temp 98.3 F 12/26/20 07:23 Pulse 61 12/26/20 07:23 Resp 18 12/26/20 07:23 BP 119/56 L 12/26/20 07:23 Pulse Ox 98 12/26/20 07:23 Body Mass Index 30.7 Const: Other: Constitutional : Alert, oriented, not in distress Neck : Normal inspection, Supple Cardiovascular : RRR, S1 S2, no lower extremity edema Respiratory : Good bilateral air entry, no crackles, wheezes or rhonchi Gastrointestinal: soft, lax, Normal bowel sounds, Non tender Skin : Warm/Dry, No rash Neurological : Alert & oriented x3, No focal deficit Discharge Plan Discharge Patient Disposition: Xfer SNF Referrals: Physician,Unknown [Primary Care Provider] - Discharge Medications: Continued methadone 10 mg/mL Concentrate 95 mg PO DAILY RF: 0 multivitamin [Daily-Angle] Tablet 1 tab PO DAILY RF: 0 lamotrigine 150 mg tablet 150 mg PO BID RF: 0 bupropion HCl 150 mg tablet sustained-release 12 hr 800 mg PO TID RF: 0 cyanocobalamin (vitamin B-12) [Vitamin B-12] 1,000 mcg tablet 1,000 mcg PO DAILY RF: 0 hydroxyzine pamoate 50 mg capsule 1 cap PO BID PRN (Reason: anxiety) RF: 0 lamotrigine 25 mg tablet 50 mg PO DAILY RF: 0 buspirone 30 mg tablet 30 mg PO BID RF: 0 ferrous sulfate 325 mg (65 mg iron) tablet 325 mg PO DAILY RF: 0 aspirin 81 mg tablet,chewable 80 mg PO DAILY RF: 0 topiramate 200 mg tablet 200 mg PO DAILY RF: 0 diclofenac sodium 50 mg tablet,delayed release (DR/EC) 50 mg PO TID PRN (Reason: Anxiety) RF: 0 propranolol 20 mg tablet 20 mg PO Q6H PRN (Reason: Anxiety) RF: 0 loratadine 10 mg tablet 10 mg PO DAILY RF: 0 gabapentin 800 mg tablet 800 mg PO TID RF: 0 Discharge Orders: Discharge Order (Routine); Ordered 12/26/20 Ordered By: Nathan Gomes Diet: advance to usual diet Activity on Discharge: As tolerated Stand Alone Forms: Patient Portal Discharge page Care Plan Goals: Read below Health Concerns: Read below Plan of Treatment: You were admitted to the hospital for treatment of acute kidney injury and muscle breakdown treated with IV fluid with good response over the course of hospital stay. Evaluated by Physical therapy but noticed to have general weakness with recommendations to do physical therapy rehab. Avoid using drugs Continue home medications
--- NOTE | 2020-12-26 10:59 | MHC.CM.PN ---
pt has been dcd awaiting ins auth
[2020-12-26 11:35] VITALS: BP 121/58; PULSE 75; RESP 16; TEMP 36.6; O2SAT 99
[2020-12-26] MEDS: Acetaminophen 325 MG TABLET 650 MG PO (11:52)
[2020-12-26 13:03] LABS: MANUAL DIFF FLAG NO
[2020-12-26 13:07] LABS: Basophils Percent Auto 0.9 % (0-2); Eosinophils Absolute Auto 0.1 X10*3/uL (0.0-0.4); Eosinophils Percent Auto 4.1 % (0-4); Hematocrit 41.6 % (37-47); Hemoglobin 13.6 g/dl (12.0-16.0); Lymphocytes Absolute Auto 1.4 X10*3/uL (1.2-4.9); Lymphocytes Percent Auto 41.2 % (20-40); Mean Corpuscular HGB Conc 32.7 g/dl (31.0-35.0); Mean Corpuscular Hemoglobin 30.6 pg (27.0-33.0); Mean Corpuscular Volume 93.7 fL (80-98); Mean Platelet Volume 10.2 fL (9.4-12.3); Monocytes Absolute Auto 0.2 X10*3/uL (0.1-1.2); Monocytes Percent Auto 5.6 % (2-11); Neutrophils Absolute Auto 1.7 X10*3/uL (2.0-8.3); Neutrophils Percent Auto 48.2 % (45-73); Platelet Count 174 X10*3/uL (160-400); Red Blood Count 4.44 X10*6/uL (4.20-5.50); Red Cell Distribution Width 14.9 % (11.0-16.0); White Blood Count 3.4 X10*3/uL (4.8-10.8)
[2020-12-26 13:35] LABS: Anion Gap 15 (12-20); Carbon Dioxide 22 mmol/L (22-29); Chloride 108 mmol/L (96-108); Creatinine Clr Calc Pharmacy 92.1; Estimated Glomerular Filt Rate > 60; Glucose Fasting 76 mg/dL (60-99); Potassium 4.4 mmol/L (3.3-5.1); Sodium 141 mmol/L (135-145)
[2020-12-26 15:26] VITALS: BP 117/65; PULSE 71; RESP 16; TEMP 36.8; O2SAT 96
--- NOTE | 2020-12-26 16:07 | HO.PM.IMPN ---
Subjective Subjective Date of Service: 12/26/20 Interval History: the patient was seen and evaluated this morning Laying in bed, feels tired overall with muscle weakness allover Denies any fever, chills or shortness of breath No reported other overnight events. Systemic review: No fever, chills but generalized weakness No chest pain, palpitation No shortness of breath or coughing No abdominal pain, nausea or vomiting No urinary symptoms No any rash or wounds Physical Exam Vital Signs: Vital Signs: Last Vital Signs Temp 98.2 F 12/26/20 15:26 Pulse 71 12/26/20 15:26 Resp 16 12/26/20 15:26 BP 117/65 12/26/20 15: Pulse Ox 96 12/26/20 15:26 Body Mass Index 30.7 Const: Other: Constitutional : Alert, oriented, not in distress Neck : Normal inspection, Supple Cardiovascular : RRR, S1 S2, no lower extremity edema Respiratory : Good bilateral air entry, no crackles, wheezes or rhonchi Gastrointestinal: soft, lax, Normal bowel sounds, Non tender Skin : Warm/Dry, No rash Neurological : Alert & oriented x3, No focal deficit Objective Data Current Medications Generic Name Dose Route Start Last Admin Trade Name Freq PRN Reason Stop Dose Admin Acetaminophen 650 mg 12/23/20 13:35 12/26/20 11:52 Acetaminophen 325 Mg Tablet PO 650 mg Q6H PRN Administration headaches Aspirin 81 mg 12/24/20 09:00 12/26/20 08:25 Aspirin 81 Mg Tab.Chew PO 81 mg DAILY EDER Administration Cyanocobalamin 1,000 mcg 12/24/20 09:00 12/26/20 08:26 Cyanocobalamin (Vitamin B-12) 1,000 Mcg Tablet PO 1,000 mcg DAILY EDER Administration Ferrous Sulfate 324 mg 12/24/20 09:00 12/26/20 08:26 Ferrous Sulfate 324 Mg Tablet.Dr PO 324 mg DAILY EDER Administration Heparin Sodium (Porcine) 5,000 unit 12/23/20 06:00 12/26/20 13:27 Heparin Sodium,Porcine 5,000 Unit/Ml Vial SUBCUT Not Given Q8H EDER Hydroxyzine HCl 50 mg 12/23/20 15:57 Hydroxyzine Hcl 50 Mg Tablet PO BID PRN anxiety Lamotrigine 150 mg 12/24/20 09:00 12/26/20 08:26 Lamotrigine 100 Mg Tablet PO 150 mg BID EDER Administration Lamotrigine 50 mg 12/24/20 09:00 12/26/20 08:26 Lamotrigine 25 Mg Tablet PO 50 mg DAILY EDER Administration Loratadine 10 mg 12/24/20 09:00 12/26/20 08:26 Loratadine 10 Mg Tablet PO 10 mg DAILY EDER Administration Methadone HCl 90 mg 12/23/20 16:15 12/26/20 08:26 Methadone Hcl 1 Mg/0.1 Ml Oral.Conc PO 90 mg DAILY EDER Administration Multivitamins/Vitamin C 1 tab 12/24/20 09:00 12/26/20 08:25 Multivitamin Tablet PO 1 tab DAILY EDER Administration Oxycodone HCl 5 mg 12/22/20 23:46 12/24/20 20:35 Oxycodone Hcl Immed Release 5 Mg Tablet PO 5 mg Q6H PRN Administration Pain, Severe (Pain Scale 7-10) Propranolol HCl 20 mg 12/23/20 15:57 Propranolol Hcl 20 Mg Tablet PO Q6H PRN Anxiety Protocol Sodium Chloride 3 ml 12/23/20 00:00 12/26/20 15:47 0.9 % Sodium Chloride Flush 3 Ml Syringe IVFLUSH Not Given QSHIFT [facility] Topiramate 200 mg 12/24/20 09:00 12/26/20 08:25 Topiramate 100 Mg Tablet PO 200 mg DAILY EDER Administration Labs CBC & Chem 7: 12/26/20 12:38 12/26/20 12:38 Assessment and Plan (1) Rhabdomyolysis: Status: Acute (2) Acute hypokalemia: Status: Acute (3) Transaminitis: Status: Acute (4) Cocaine abuse: Status: Acute (5) Opioid dependence: Status: Acute Assessment and Plan: 40-year-old female with a past medical history of anxiety, depression, PTSD, bipolar, substance abuse, hep C, opiate dependence on methadone, history of colitis, CVA, JOSEPHINE secondary to rhabdomyolysis, history of suicidal/homicidal ideations presented to the hospital with a chief complaint of altered mental status Rhabdomyolysis: improved trended dowqn CPK U tox was positive for cocaine /benzo/opoids has recent episode also last month also she did not have any flank pain when seen this morning , as per staff urinating well. History of drug abuse continue methadone Transaminitis last admission -CT abdomen shows CBD dilatation. lft's trending down' seen by Gi-last admits it was thought to be due to sustance related elevation recomended outpatient follow up history of mood disorder started on psych medication-on lamictal,topamax, hydroxyzine opoid use on methdone DVT PPx
[2020-12-26 17:13] LABS: Blood Urea Nitrogen 11 mg/dL (9-16); Calcium 9.4 mg/dL (8.4-10.2)
[2020-12-26 18:57] VITALS: BP 108/64; PULSE 66; RESP 18; TEMP 36.6; O2SAT 98
[2020-12-26 23:35] VITALS: BP 105/53; PULSE 69; RESP 18; TEMP 36.8; O2SAT 96
[2020-12-27 03:20] VITALS: BP 102/52; PULSE 68; RESP 20; TEMP 36.8; O2SAT 97
[2020-12-27 07:44] VITALS: BP 120/56; PULSE 62; RESP 20; TEMP 36.6; O2SAT 98
[2020-12-27] MEDS: Topiramate 100 MG TABLET 200 MG PO (07:58)
[2020-12-27] MEDS: Loratadine 10 MG TABLET PO (07:59)
[2020-12-27] MEDS: Multivitamin TABLET 1 TAB PO (07:59)
[2020-12-27] MEDS: Cyanocobalamin (Vitamin B-12) 1,000 MCG TABLET 1000 MCG PO (07:59)
[2020-12-27] MEDS: Ferrous Sulfate 324 MG TABLET.DR PO (07:59)
[2020-12-27] MEDS: lamoTRIgine 100 MG TABLET 150 MG PO (07:59)
[2020-12-27] MEDS: Aspirin 81 MG TAB.CHEW PO (07:59)
[2020-12-27] MEDS: lamoTRIgine 25 MG TABLET 50 MG PO (07:59)
--- NOTE | 2020-12-27 08:56 | MHC.CM.PN ---
Addendum entered by Margi Soto 12/27/20 10:13: CM met with pt and informed her auth had been requested. pt also provided permission for a VNA referral to be sent as [facility] [place] [facility]. Referral made. DC plan is STR at [facility] vs home with VNA for PT pending [facility] decision. Original Note: Pt was cleared for DC and [facility] is offering bed pending insurance auth. Clinical information was sent to both [facility] and [facility] and CM is currently awaiting response from [facility] regarding status of auth request.
[2020-12-27] MEDS: Acetaminophen 325 MG TABLET 650 MG PO (10:35)
[2020-12-27 11:21] VITALS: BP 111/59; PULSE 76; RESP 20; TEMP 36.7; O2SAT 98
--- NOTE | 2020-12-27 12:25 | MHC.RECOVRN ---
T/w met with pt to follow up regarding discharge plans. Pt had been accepted to STR and was to discharge today. Pt informed t/w that she did not want to go to STR any longer. T/w offered to contact [facility] to obtain bed, pt declined. Pt stated she has friends and would be able to find somewhere to stay. T/w discussed the pros and cons of this decision with pt. Pt understands the risks being taken. T/w reinforced that pt has t/w card and to make contact if anything was needed. Pt grateful and agrees to do so.
--- NOTE | 2020-12-27 12:54 | PC.NURSE ---
Pt discharged home. Pt was supposed to go to rehab but refused. Per patient she will be going to friends house. Dr. Mitchell made aware, stated okay to leave without services. Pt given discharge instructions, IV removed. Pt ambulated off unit on own, offered wheelchair refused.
--- NOTE | 2020-12-27 13:13 | MHC.CM.PN ---
CM informed pt that [facility] had provided auth and she could go to STR at 1300 hours. Shortly after, SANDRA received a message from general distillery worker that pt no longer wanted to go to STR. SANDRA spoke to pt who indicated she would be leaving and has a place to stay. SANDRA spoke to pts nurse who reports the MD wanted VNA to be arranged. SANDRA informed her the pt declined VNA stating she cannot return to her prior living arrangements because her mother is not speaking to her. Of note, recovery nurse was also willing to contact [facility] for pt. pt declined all assistance and discharged with no services.
== END 2020-12-27 12:55 | disposition skilled nursing facility (03) | DRG 351 ==
LOC: HO.ED 23:48 → HO.EDOVER 23:54 → HO.IMC 12-24 01:03
PROVIDERS: Internal Medicine; Admitting Provider Hospitalist; Emergency Provider Emergency Medicine; Visit Provider Student in an Organized Health Care Education/Training Program
DX: M62.82 Rhabdomyolysis (principal); F11.20 Opioid dependence, uncomplicated; F17.210 Nicotine dependence, cigarettes, uncomplicated; R74.01 Elevation of levels of liver transaminase levels; Z86.73 Personal history of transient ischemic attack (TIA), and cerebral infarction without residual deficits; F14.10 Cocaine abuse, uncomplicated; F31.9 Bipolar disorder, unspecified; F43.10 Post-traumatic stress disorder, unspecified; E87.6 Hypokalemia; Z71.6 Tobacco abuse counseling; Z88.2 Allergy status to sulfonamides; Z20.822 Contact with and (suspected) exposure to COVID-19; Z79.82 Long term (current) use of aspirin; Z79.899 Other long term (current) drug therapy
CPT/HCPCS: 0241U; 36415; 71045; 80048; 80076; 80307; 81003; 81025; 82550; 83690; 83735; 85025; 97163; 97530; 99284

== ENCOUNTER 2021-01-02 06:27 | Inpatient (IN) | payer OTHER, SELFPAY ==
[2021-01-02] VITALS (7 sets, daily range): BP systolic 113–146; BP diastolic 52–84; PULSE 82–95; RESP 16–18; TEMP 36.6–37.2; O2SAT 94–100; BMI 28.8
--- NOTE | ~2021-01-02 | CT_ITS ---
EXAMINATION: CT THORACIC AND CT LUMBAR SPINE CLINICAL INFORMATION: Back pain rule out abscess COMPARISON: Chest x-ray 12/22/[address] abdomen pelvis 12/04/2020 TECHNIQUE: Axial 2 mm thin and reformatted 2 mm thin sagittal and coronal images of dorsal spine were obtained from mid C4 through lower dorsal spine. Subsequently axial 2 mm thin and reformatted 2 mm thin sagittal and coronal coronal images of lumbar spine were obtained. The LV 1384. FINDINGS: DORSAL SPINE: There is maintained thoracic kyphosis. There is minimal positional scoliosis.. The vertebral heights, alignment and disc heights are normal. There is no evidence of disc bulge, herniation or spinal stenosis at any of the disc levels. The neural foramina are patent bilaterally at all disc levels. Minimal atelectatic changes are seen in both lung bases. No visible acute fracture, dislocation or lytic process seen. LUMBAR SPINE: There is maintained lumbar lordosis. The vertebral heights, alignment and disc heights are normal. Is no visible acute fracture, dislocation or subluxation seen. The facet joints are symmetrical and normal. There is no disc bulge, herniation or spinal stenosis at any of the disc levels. The neural foramina are patent. The paravertebral soft tissues are normal. Visualized SI joints and the posterior pelvic bones are unremarkable. There is moderate stool in the colon. CT/CT thoracic spine w con IMPRESSION: Unremarkable CT thoracic spine. There is minimal dependent bibasilar atelectasis or scarring. Unremarkable CT lumbar spine.
--- NOTE | ~2021-01-02 | CT_ITS ---
EXAMINATION: CT THORACIC AND CT LUMBAR SPINE CLINICAL INFORMATION: Back pain rule out abscess COMPARISON: Chest x-ray 12/22/[address] abdomen pelvis 12/04/2020 TECHNIQUE: Axial 2 mm thin and reformatted 2 mm thin sagittal and coronal images of dorsal spine were obtained from mid C4 through lower dorsal spine. Subsequently axial 2 mm thin and reformatted 2 mm thin sagittal and coronal coronal images of lumbar spine were obtained. The LV 1384. FINDINGS: DORSAL SPINE: There is maintained thoracic kyphosis. There is minimal positional scoliosis.. The vertebral heights, alignment and disc heights are normal. There is no evidence of disc bulge, herniation or spinal stenosis at any of the disc levels. The neural foramina are patent bilaterally at all disc levels. Minimal atelectatic changes are seen in both lung bases. No visible acute fracture, dislocation or lytic process seen. LUMBAR SPINE: There is maintained lumbar lordosis. The vertebral heights, alignment and disc heights are normal. Is no visible acute fracture, dislocation or subluxation seen. The facet joints are symmetrical and normal. There is no disc bulge, herniation or spinal stenosis at any of the disc levels. The neural foramina are patent. The paravertebral soft tissues are normal. Visualized SI joints and the posterior pelvic bones are unremarkable. There is moderate stool in the colon. CT/CT lumbar spine w con IMPRESSION: Unremarkable CT thoracic spine. There is minimal dependent bibasilar atelectasis or scarring. Unremarkable CT lumbar spine.
--- NOTE | ~2021-01-02 | MR_ITS ---
MR LUMBAR SPINE WITHOUT AND WITH CONTRAST CLINICAL INFORMATION: Back pain. COMPARISON: Lumbar spine CT 01/02/2021. TECHNIQUE: MRI of the lumbar spine was obtained using routine sequences with and without contrast. Intravenous contrast: Gadavist 8.5 mL FINDINGS: 5 nonrib-bearing lumbar-type vertebral bodies. Lumbar alignment is normal. The vertebral body heights are maintained. There is mild disc volume loss and there is disc desiccation at L3-L4 and L4-L5. There is no bone marrow edema. There are no acute fractures. There is no pathologic intraosseous enhancement. Conus terminates at the L1 level. There are no significant soft tissue findings. There is no pathologic enhancement along the cauda equina nerve roots. The L1-L2, L2-L3, and L5-S1 disc contours are normal. There is no central canal stenosis and there is no foraminal stenosis at these levels. At L3-L4, there is a diffuse annular disc bulge and there is mild to moderate bilateral hypertrophic facet arthropathy. No central canal stenosis. Mild foraminal encroachment bilaterally. At L4-L5 there is a small annular disc bulge exhibiting a dorsal annular fissure and there is mild bilateral facet arthropathy. No central canal stenosis. There is mild foraminal encroachment bilaterally. MR/MR lumbar spine wo/w con IMPRESSION: - No MRI evidence of spinal infection. No marrow edema and no pathologic intraosseous enhancement. No epidural collections. - Mild spondylosis at L3-L4 and L4-L5. Small dorsal annular fissure at L4-L5. There is no severe central canal stenosis and there is no severe foraminal stenosis within the lumbar spine.
[2021-01-02 12:44] LABS: Glucose Urine UA NEG (NEG); Leukocyte Esterase Urine NEG (NEG); Nitrite Urine NEG (NEG); Specific Gravity - Urine 1.025 (1.005-1.025); Urine Blood NEG (NEG); Urine Ketones 40 MG/DL (NEG); Urine Protein NEG (NEG-TRACE)
[2021-01-02 12:47] LABS: Appearance Urine CLOUDY; Color Urine YELLOW
--- NOTE | 2021-01-02 13:12 | PC.NURSE ---
PT REFUSING BLOOD WORK REPEATEDLY. PT SCREAMING AND CRYING IN WAITING ROOM ASKING TO BE SENT TO ANOTHER FACILITY.
--- NOTE | 2021-01-02 13:13 | PC.NURSE ---
pt refused blood draw. rn and wholesale agronomist aware.
--- NOTE | 2021-01-02 15:51 | ED.GENADULT ---
HPI - General Adult General Chief complaint: General Medical Stated complaint: Back pain Time Seen by Provider: 01/02/21 09:16 Source: patient Mode of arrival: ambulatory Limitations: no limitations History of Present Illness HPI narrative: 40-year-old female who presents emergency department for evaluation of lower back pain and lower extremity pain. She states the pain started approximately 4 days prior to being evaluated in the emergency department. She describes the pain as a constant, sharp pain which is worse with movement. She states that her lower extremities feel very weak and she is having difficulty walking. She denied any numbness of her lower extremities. She denied loss of bowel or bladder control. She did not have any known injury to her lower back. Patient states that she had a similar presentation and was seen here in the emergency department and admitted for rhabdomyolysis. In reviewing the patient's she was admitted on 12/22/2020 for rhabdomyolysis and kidney failure with a CK of 15,000. She does have a history of polysubstance abuse. She states that she is in a methadone clinic but did not receive her methadone today. She states that she has not used injection narcotic in several weeks. Related Data Home Medications Medication Instructions Recorded Confirmed aspirin 80 mg PO DAILY 12/04/20 12/23/20 bupropion HCl 800 mg PO TID 12/04/20 12/23/20 buspirone 30 mg PO BID 12/04/20 12/23/20 cyanocobalamin (vitamin B-12) 1,000 mcg PO DAILY 12/04/20 12/23/20 [Vitamin B-12] diclofenac sodium 50 mg PO TID PRN 12/04/20 12/23/20 ferrous sulfate 325 mg PO DAILY 12/04/20 12/23/20 hydroxyzine pamoate 1 cap PO BID PRN 12/04/20 12/23/20 lamotrigine 50 mg PO DAILY 12/04/20 12/23/20 lamotrigine 150 mg PO BID 12/04/20 12/23/20 loratadine 10 mg PO DAILY 12/04/20 12/23/20 multivitamin [Daily-Angle] 1 tab PO DAILY 12/04/20 12/23/20 propranolol 20 mg PO Q6H PRN 12/04/20 12/23/20 topiramate 200 mg PO DAILY 12/04/20 12/23/20 gabapentin 800 mg PO TID 12/07/20 12/23/20 methadone 95 mg PO DAILY 12/23/20 12/23/20 Allergies Allergy/AdvReac Type Severity Reaction Status Date / Time azithromycin [AZITHROMYCIN] Allergy Unknown UNK Verified 08/24/20 16:06 erythromycin base Allergy Unknown RASH Verified 08/24/20 16:06 [ERYTHROMYCIN BASE] olanzapine [From ZYPREXA] Allergy Unknown PEDAL EDEMA Verified 08/24/20 16:06 quetiapine [From SEROQUEL] Allergy Unknown THROAT Verified 08/24/20 16:06 SWELLING risperidone [From RISPERDAL] Allergy Unknown TWITCHING Verified 08/24/20 16:06 shellfish derived Allergy Unknown VOMITING Verified 08/24/20 16:06 [SHELLFISH DERIVED] sulfamethoxazole Allergy Unknown ITCHING Verified 08/24/20 16:06 [From BACTRIM] trimethoprim [From BACTRIM] Allergy Unknown ITCHING Verified 08/24/20 16:06 arithromiosin Allergy Unknown Unknown Uncoded 08/24/20 16:06 gluten Allergy Unknown Unknown Uncoded 08/24/20 16:06 sea food Allergy Unknown Unknown Uncoded 08/24/20 16:06 Sulfacet-R Allergy Unknown Unknown Uncoded 08/24/20 16:06 SEAFOOD AdvReac Unknown VOMIT Uncoded 06/07/20 15:47 PMFSH Past Medical History Medical History No known health problems Social History Social History Household Members: Unknown / Unable to assess Alcohol intake: former Smoking Status: Light tobacco smoker Substance Use Type: Prescription Drugs Advance Directives: No Advance Directives Information Provided: No service: No Current occupational status: unemployed Physical Exam Vital Signs: Vital Signs: Last Vital Signs Temp 98.9 F 01/02/21 14:47 Pulse 94 01/02/21 14:47 Resp 18 01/02/21 14:47 BP 131/84 01/02/21 14:47 Pulse Ox 94 01/02/21 14:47 Body Mass Index 28.8 Const: General: healthy appearing and other (Somnolent but arousable) Orientation/consciousness: oriented to person and oriented to place Limitations: no limitations HENMT: Head: Yes normal to inspection, Yes normocephalic and Yes atraumatic Ears: external ears normal General nose exam: Normal external nose present Face and sinus: Yes normal facial exam Mouth: Normal oral and palatal mucosa present Throat: Yes posterior oropharynx normal Eyes: Periorbital: periorbital findings normal Eyelids: Yes eyelids normal Conjunctivae: conjunctivae normal Sclerae: sclerae normal Corneas: corneas normal Pupils: Equal, round and reactive pupils present Direct Ophthalmoscopy: normal light reflex Neck: Neck: Yes full ROM, Yes no lymphadenopathy, Yes no meningeal signs, Yes trachea midline and Yes supple Chest: Chest palpation & inspection: normal inspection of the chest and normal palpation of entire chest wall Resp: Effort & Inspection: normal respiratory effort and able to speak in complete sentences Auscultation: clear to auscultation bilaterally Cardio: Rate: regular rate Rhythm: regular rhythm Heart sounds: S1 normal heart sound present, S2 normal heart sound present and no murmurs GI: Inspection: Yes normal to inspection Palpation (GI): Soft to palpation, nontender, no guarding, not rigid and No hepatosplenomegaly present : General: Yes no CVA tenderness Back/Spine/Pelvis: Back: no CVA tenderness Cervical Spine: normal cervical lordosis Thoracic/Lumbar Spine: thoracic and lumbar spine normal to inspection and paraspinal muscle tenderness bilaterally in the mid thoracic, in the lower thoracic, in the upper lumbar, in the mid lumbar and in the lower lumbar Skin: Lesions: no lesions Rashes: no rashes Wounds: no wounds Neuro: Other: Patient moves her upper extremities symmetrically with good strength, she can lift her lower extremities against gravity but states that this hurts her back quickly drops her legs back to the stretcher. She has normal light touch symmetric in both her upper and lower extremities. General: oriented to person, oriented to place and no meningeal signs Cranial nerves: Yes CN's II-XII intact bilaterally and Yes Equal, round and reactive pupils present Extrem: General: Yes normal to inspection and Yes full ROM Psych: Mental Status: other (Somnolent but arousable) Speech and movement: Normal speech and movement present Affect: Hostile affect present Thought process: Normal thought process present Thought content: Normal thought content present Course Course Course Narrative: 40-year-old female who presents emergency department for evaluation of lower back pain with lower extremity weakness x4 days. She does have a history of polysubstance use but denies using IV drugs recently. She states that she had a similar presentation earlier in the month in reviewing her records she was admitted for severe rhabdomyolysis with a CK of 15,000. Given her injection drug use, she has very limited access and would not let the nurses draw blood and is requesting that an ultrasound peripheral line be obtained. I did contact Interventional Radiology and they will come to the emergency department to try to obtain access and blood from this patient. The patient is somnolent but she denies using drugs, she states that she has not slept in the last 4 days. At the end of my shift, the patient's evaluation/workup is incomplete therefore the patient's care was turned over to my colleague, Dr. Dalila Parr. Medical Decision Making Lab Data Labs: Lab Results 01/02/21 Range/Units 12:27 Urine Color YELLOW Urine Appearance CLOUDY Urine pH 6.0 (5.0-8.0) Ur Specific [place] 1.025 (1.005-1.025) Urine Protein NEG (NEG-TRACE) MG/DL Urine Glucose (UA) NEG (NEG) MG/DL Urine Ketones 40 (NEG) MG/DL Urine Blood NEG (NEG) Urine Nitrite NEG (NEG) Ur Leukocyte Esterase NEG (NEG) Discharge Plan Discharge Prescriptions: No Action methadone 10 mg/mL Concentrate 95 mg PO DAILY RF: 0 multivitamin [Daily-Angle] Tablet 1 tab PO DAILY RF: 0 lamotrigine 150 mg tablet 150 mg PO BID RF: 0 bupropion HCl 150 mg tablet sustained-release 12 hr 800 mg PO TID RF: 0 cyanocobalamin (vitamin B-12) [Vitamin B-12] 1,000 mcg tablet 1,000 mcg PO DAILY RF: 0 hydroxyzine pamoate 50 mg capsule 1 cap PO BID PRN (Reason: anxiety) RF: 0 lamotrigine 25 mg tablet 50 mg PO DAILY RF: 0 buspirone 30 mg tablet 30 mg PO BID RF: 0 ferrous sulfate 325 mg (65 mg iron) tablet 325 mg PO DAILY RF: 0 aspirin 81 mg tablet,chewable 80 mg PO DAILY RF: 0 topiramate 200 mg tablet 200 mg PO DAILY RF: 0 diclofenac sodium 50 mg tablet,delayed release (DR/EC) 50 mg PO TID PRN (Reason: Anxiety) RF: 0 propranolol 20 mg tablet 20 mg PO Q6H PRN (Reason: Anxiety) RF: 0 loratadine 10 mg tablet 10 mg PO DAILY RF: 0 gabapentin 800 mg tablet 800 mg PO TID RF: 0
--- NOTE | 2021-01-02 16:47 | PC.NURSE ---
ir at bedside attempting us guided iv and lab draw
[2021-01-02] MEDS: 0.9 % Sodium Chloride 1,000 ML 999 ML IV ×2 (16:59→18:11)
--- NOTE | 2021-01-02 16:59 | PC.NURSE ---
iv inserted by IR via ultrasound, labs drawn, ivf running per order
[2021-01-02 17:00] LABS: MANUAL DIFF FLAG NO
[2021-01-02 17:02] LABS: Basophils Percent Auto 0.5 % (0-2); Eosinophils Absolute Auto 0.2 X10*3/uL (0.0-0.4); Eosinophils Percent Auto 4.9 % (0-4); Hematocrit 43.5 % (37-47); Hemoglobin 14.2 g/dl (12.0-16.0); Imm Gran Abs Auto 0.01 X10*3/uL (0.00-0.03); Imm Gran Pct Auto 0.3 % (0.0-0.4); Lymphocytes Absolute Auto 1.7 X10*3/uL (1.2-4.9); Lymphocytes Percent Auto 44.7 % (20-40); Mean Corpuscular HGB Conc 32.6 g/dl (31.0-35.0); Mean Corpuscular Hemoglobin 30.2 pg (27.0-33.0); Mean Corpuscular Volume 92.6 fL (80-98); Mean Platelet Volume 9.9 fL (9.4-12.3); Monocytes Absolute Auto 0.4 X10*3/uL (0.1-1.2); Neutrophils Absolute Auto 1.6 X10*3/uL (2.0-8.3); Neutrophils Percent Auto 40.6 % (45-73); Platelet Count 189 X10*3/uL (160-400); Red Cell Distribution Width 13.9 % (11.0-16.0); White Blood Count 3.9 X10*3/uL (4.8-10.8)
--- NOTE | 2021-01-02 17:05 | PC.NURSE ---
US-GUIDED IV ACCESS OBTAINED BY THIS RN WITH SINGLE ATTEMPT. 18G, 1.75IN PRN ANGIO TO R AC VEIN USING ASEPTIC TECHNIQUE. TEGADERM WITH BIOPATCH DRESSING APPLIED. PT TOLERATED WELL.
[2021-01-02 17:42] LABS: Anion Gap 20 (12-20); Blood Urea Nitrogen 8 mg/dL (9-16); Calcium 10.3 mg/dL (8.4-10.2); Carbon Dioxide 25 mmol/L (22-29); Chloride 100 mmol/L (96-108); Creatinine Clr Calc Pharmacy 100.9; Estimated Glomerular Filt Rate > 60; Glucose Random 52 mg/dL (60-115); Sodium 141 mmol/L (135-145)
[2021-01-02 17:46] LABS: Alanine Aminotransferase 84 U/L (0-31); Albumin Level 5.3 g/dL (3.5-5.0); Alkaline Phosphatase 138 U/L (39-117); Aspartate Amino Transferase 90 U/L (5-31); Bilirubin Direct 0.5 mg/dL (0.0-0.5)
[2021-01-02 18:08] LABS: UPreg QC Valid YES; Urine Pregnancy NEGATIVE (NEGATIVE)
--- NOTE | 2021-01-02 18:14 | PC.NURSE ---
patient currently sleeping, wakes to stimulus, vitals stable, repeate poc obtained, ivf hanging per order, will continue to monitor.
[2021-01-02 18:35] LABS: Glucose, Whole Blood 103 mg/dL (60-115)
[2021-01-02 18:38] LABS: Amphetamine Screen Urine Not Detected (Not Detect); Barbiturates, Urine Not Detected (Not Detect); Benzodiazepines Screen Urine POSITIVE (Not Detect); Cannabinoid Screen Urine Not Detected (Not Detect); Cocaine Screen Urine POSITIVE (Not Detect); Opiate Screen Urine POSITIVE (Not Detect); Phencyclidine Screen Urine Not Detected (Not Detect)
[2021-01-02 21:43] LABS: Glucose, Whole Blood 45 mg/dL (60-115)
[2021-01-02] MEDS: iohexoL 350 MG/ML 100 ML INFUS..BTL IV (22:13)
[2021-01-02 22:16] LABS: Glucose, Whole Blood 101 mg/dL (60-115)
[2021-01-02 22:38] LABS: Glucose, Whole Blood 70 mg/dL (60-115)
--- NOTE | 2021-01-02 22:38 | PC.NURSE ---
Repeat POC noted to be 70 mg/dl. MD aware. Per MD, plan for IVF fluids and PO intake.
[2021-01-02] MEDS: Acetaminophen 325 MG TABLET 650 MG PO (22:48)
[2021-01-02] MEDS: Dextrose 5 % and 0.9 % NaCl 1,000 ML 125 ML IVCONT (22:48)
--- NOTE | 2021-01-02 22:49 | PC.NURSE ---
Pt medicated per NOV, sitting upright in bed, eating and drinking at this time.
[2021-01-02 23:17] LABS: Glucose, Whole Blood 115 mg/dL (60-115)
[2021-01-03 00:38] LABS: Glucose, Whole Blood 94 mg/dL (60-115)
[2021-01-03 00:49] VITALS: BP 113/64; PULSE 88; RESP 16; TEMP 36.7; O2SAT 99
--- NOTE | 2021-01-03 00:54 | PM.IMHP ---
History of Present Illness Date of Service: 01/03/21 Chief Complaint: back pain 40-year-old female with a past medical history of polysubstance abuse, anxiety, depression, bipolar, PTSD, opiate dependence on methadone, history of hep C presented to the hospital with a chief complaint of back pain. Patient is a poor historian. Most of the history of prior from the records and ER vision. Reportedly patient complained of upper back pain for the past couple days. Also mentioned that she is not compliant with her home medications. Patient denies any chest pain palpitations lightheadedness dizziness. Denies any fever chills cough. Denies any urinary difficulty or stool incontinence. Review of all other systems is negative except mentioned above ER course: Per ER physician patient exam was nonfocal. CT of the thoracic and lumbar spine showed no acute findings. Patient was afebrile. No leukocytosis. Less concern for infection. Subsequently patient noted to have hypoglycemia 50.; patient was given crackers, dextrose IV; patient fingerstick glucose improved but subsequently dropped again to 90s. Requested an admission for observation. [facility] Medical History No known health problems Social History Household Members: Friend(s) Housing: Unknown / Unable to assess Do you presently have visiting nurse or other home services: No Alcohol intake: never Smoking Status: Current every day smoker Cigarettes Per Day: 4 Smoked in Last 30 Days: No Patient Interested in Nicotine Replacement: No Patient Given Instructions on How to Stop Smoking: No Second Hand Smoke Exposure: No Use of substances other than those prescribed or required for medical reasons: No Substance Use Type: Crack/Cocaine and Opiates Currently Displaying Signs/Symptoms of Drug Intoxication Withdrawal: No Have you been hit, kicked, punched, or otherwise hurt by someone within the past year? If so, by whom?: No Do you feel safe in your current relationship?: No Is there a partner from a previous relationship who is making you feel unsafe now?: No Advance Directives: No Advance Directives Information Provided: No Do you have thoughts of harming others: None Do you have a plan to hurt others: No Plan Recently lost weight without trying: No service: No Current occupational status: unemployed Meds Allergies Allergy/AdvReac Type Severity Reaction Status Date / Time azithromycin [AZITHROMYCIN] Allergy Unknown UNK Verified 08/24/20 16:06 erythromycin base Allergy Unknown RASH Verified 08/24/20 16:06 [ERYTHROMYCIN BASE] olanzapine [From ZYPREXA] Allergy Unknown PEDAL EDEMA Verified 08/24/20 16:06 quetiapine [From SEROQUEL] Allergy Unknown THROAT Verified 08/24/20 16:06 SWELLING risperidone [From RISPERDAL] Allergy Unknown TWITCHING Verified 08/24/20 16:06 shellfish derived Allergy Unknown VOMITING Verified 08/24/20 16:06 [SHELLFISH DERIVED] sulfamethoxazole Allergy Unknown ITCHING Verified 08/24/20 16:06 [From BACTRIM] trimethoprim [From BACTRIM] Allergy Unknown ITCHING Verified 08/24/20 16:06 arithromiosin Allergy Unknown Unknown Uncoded 08/24/20 16:06 gluten Allergy Unknown Unknown Uncoded 08/24/20 16:06 sea food Allergy Unknown Unknown Uncoded 08/24/20 16:06 Sulfacet-R Allergy Unknown Unknown Uncoded 08/24/20 16:06 SEAFOOD AdvReac Unknown VOMIT Uncoded 06/07/20 15:47 Active Medications: Current Medications Generic Name Dose Route Start Last Admin Trade Name Freq PRN Reason Stop Dose Admin Acetaminophen 650 mg 01/03/21 00:48 Acetaminophen 325 Mg Tablet PO Q6H PRN Pain, Mild (Pain Scale 1-3) Dextrose/Sodium Chloride 1,000 mls @ 125 mls/hr 01/02/21 22:45 01/02/21 22:48 D5ns IVCONT 125 mls/hr .Q8H EDER Administration Dextrose/Sodium Chloride 1,000 mls @ 100 mls/hr 01/03/21 01:00 D51/2ns IVCONT .Q10H EDER Senna 17.2 mg 01/03/21 00:48 Sennosides 8.6 Mg Tablet PO BEDTIME PRN Constipation Sodium Chloride 3 ml 01/03/21 08:00 0.9 % Sodium Chloride Flush 3 Ml Syringe IVFLUSH QSHIFT [facility] Home Medications Medication Instructions Recorded Confirmed Last Taken Type aspirin 80 mg PO DAILY 12/04/20 01/03/21 Unknown History bupropion HCl 150 mg PO BID 12/04/20 01/03/21 Unknown History buspirone 30 mg PO BID 12/04/20 01/03/21 Unknown History cyanocobalamin (vitamin B-12) 1,000 mcg PO DAILY 12/04/20 01/03/21 Unknown History [Vitamin B-12] diclofenac sodium 50 mg PO TID PRN 12/04/20 01/03/21 Unknown History ferrous sulfate 325 mg PO DAILY 12/04/20 01/03/21 Unknown History hydroxyzine pamoate 1 cap PO BID PRN 12/04/20 01/03/21 Unknown History lamotrigine 50 mg PO DAILY 12/04/20 01/03/21 Unknown History loratadine 10 mg PO DAILY 12/04/20 01/03/21 Unknown History multivitamin [Daily-Angle] 1 tab PO DAILY 12/04/20 01/03/21 Unknown History propranolol 20 mg PO Q6H PRN 12/04/20 01/03/21 Unknown History topiramate 200 mg PO DAILY 12/04/20 01/03/21 Unknown History gabapentin 800 mg PO TID 12/07/20 01/03/21 Unknown History methadone 90 mg PO DAILY 12/23/20 01/03/21 12/20/20 History diazepam 1 tab PO TID 01/02/21 01/03/21 Unknown History zolpidem 5 mg PO BEDTIME PRN 01/02/21 01/03/21 Unknown History Physical Exam Vital Signs and Narrative: Vital Signs: Last Vital Signs Temp 98.6 F 01/02/21 22:40 Pulse 88 01/02/21 22:40 Resp 18 01/02/21 22:40 BP 114/52 L 01/02/21 22:40 Pulse Ox 100 01/02/21 22:40 Body Mass Index 28.8 Gen: Appears be in no acute distress HEENT: NCAT, Moist mucosa. Pulmonary: Vesicular breath sounds, fair air entry CVS: Normal S1-S2 Abdomen: BS+, Soft, Nontender Extremities: Warm well perfused Neuro: Alert and awake. Grossly nonfocal Results Labs CBC and Chem 7: 01/04/21 10:11 01/04/21 10:11 Labs: Laboratory Results - last 24 hr 01/02/21 01/02/21 01/02/21 12:27 16:54 16:54 MCV 92.6 MCH 30.2 MCHC 32.6 RDW 13.9 Plt Count 189 MPV 9.9 Immature Gran % (Auto) 0.3 Neut % (Auto) 40.6 L Lymph % (Auto) 44.7 H [place] % (Auto) 9.0 Eos % (Auto) 4.9 H Baso % (Auto) 0.5 Lymph # (Auto) 1.7 [place] # (Auto) 0.4 Eos # (Auto) 0.2 Baso # (Auto) 0.0 Abs Immat Gran (auto) 0.01 Absolute Neuts (auto) 1.6 L Absolute Nucleated RBC 0.000 Nucleated RBC % (auto) 0.0 Anion Gap 20 Estim Creat Clear Calc 100.9 Estimated GFR > 60 POC Glucose Random Glucose 52 L* Calcium 10.3 H D Total Bilirubin Direct Bilirubin AST ALT Alkaline Phosphatase Total Creatine Kinase 911 H D Total Protein Albumin Urine Color YELLOW Urine Appearance CLOUDY Urine pH 6.0 Ur Specific [place] 1.025 Urine Protein NEG Urine Glucose (UA) NEG Urine Ketones 40 Urine Blood NEG Urine Nitrite NEG Ur Leukocyte Esterase NEG Urine Test Urine Opiates Screen Ur Barbiturates Screen Ur Phencyclidine Scrn Ur Amphetamines Screen U Benzodiazepines Scrn Urine Cocaine Screen U Marijuana (THC) Screen 01/02/21 01/02/21 01/02/21 16:54 17:53 18:14 MCV MCH MCHC RDW Plt Count MPV Immature Gran % (Auto) Neut % (Auto) Lymph % (Auto) [place] % (Auto) Eos % (Auto) Baso % (Auto) Lymph # (Auto) [place] # (Auto) Eos # (Auto) Baso # (Auto) Abs Immat Gran (auto) Absolute Neuts (auto) Absolute Nucleated RBC Nucleated RBC % (auto) Anion Gap Estim Creat Clear Calc Estimated GFR POC Glucose 103 Random Glucose Calcium Total Bilirubin 1.0 Direct Bilirubin 0.5 AST 90 H ALT 84 H Alkaline Phosphatase 138 H D Total Creatine Kinase Total Protein 9.0 H D Albumin 5.3 H D Urine Color Urine Appearance Urine pH Ur Specific [place] Urine Protein Urine Glucose (UA) Urine Ketones Urine Blood Urine Nitrite Ur Leukocyte Esterase Urine Test NEGATIVE Urine Opiates Screen Ur Barbiturates Screen Ur Phencyclidine Scrn Ur Amphetamines Screen U Benzodiazepines Scrn Urine Cocaine Screen U Marijuana (THC) Screen 01/02/21 01/02/21 01/02/21 21:40 22:12 22:32 MCV MCH MCHC RDW Plt Count MPV Immature Gran % (Auto) Neut % (Auto) Lymph % (Auto) [place] % (Auto) Eos % (Auto) Baso % (Auto) Lymph # (Auto) [place] # (Auto) Eos # (Auto) Baso # (Auto) Abs Immat Gran (auto) Absolute Neuts (auto) Absolute Nucleated RBC Nucleated RBC % (auto) Anion Gap Estim Creat Clear Calc Estimated GFR POC Glucose 45 L* 101 70 Random Glucose Calcium Total Bilirubin Direct Bilirubin AST ALT Alkaline Phosphatase Total Creatine Kinase Total Protein Albumin Urine Color Urine Appearance Urine pH Ur Specific [place] Urine Protein Urine Glucose (UA) Urine Ketones Urine Blood Urine Nitrite Ur Leukocyte Esterase Urine Test Urine Opiates Screen Ur Barbiturates Screen Ur Phencyclidine Scrn Ur Amphetamines Screen U Benzodiazepines Scrn Urine Cocaine Screen U Marijuana (THC) Screen 01/02/21 01/02/21 01/03/21 23:14 Unknown 00:35 MCV MCH MCHC RDW Plt Count MPV Immature Gran % (Auto) Neut % (Auto) Lymph % (Auto) [place] % (Auto) Eos % (Auto) Baso % (Auto) Lymph # (Auto) [place] # (Auto) Eos # (Auto) Baso # (Auto) Abs Immat Gran (auto) Absolute Neuts (auto) Absolute Nucleated RBC Nucleated RBC % (auto) Anion Gap Estim Creat Clear Calc Estimated GFR POC Glucose 115 94 Random Glucose Calcium Total Bilirubin Direct Bilirubin AST ALT Alkaline Phosphatase Total Creatine Kinase Total Protein Albumin Urine Color Urine Appearance Urine pH Ur Specific [place] Urine Protein Urine Glucose (UA) Urine Ketones Urine Blood Urine Nitrite Ur Leukocyte Esterase Urine Test Urine Opiates Screen POSITIVE H Ur Barbiturates Screen Not Detected Ur Phencyclidine Scrn Not Detected Ur Amphetamines Screen Not Detected U Benzodiazepines Scrn POSITIVE H Urine Cocaine Screen POSITIVE H U Marijuana (THC) Screen Not Detected Imaging Radiologist's Impressions: Impressions Lumbar Spine CT 01/02/21 21:43 IMPRESSION: Unremarkable CT thoracic spine. There is minimal dependent bibasilar atelectasis or scarring. Unremarkable CT lumbar spine. Thoracic Spine CT 01/02/21 21:43 IMPRESSION: And Unremarkable CT thoracic spine. There is minimal dependent bibasilar atelectasis or scarring. Unremarkable CT lumbar spine. Assessment and Plan (1) Hypoglycemia: Status: Acute 40-year-old female with a past medical history of anxiety, depression, PTSD, polysubstance abuse, opiate dependence on methadone, history of hep C, recent admission to the hospital for rhabdomyolysis presented to the hospital with a chief complaint of back pain. Back pain: Nonfocal exam. CT thoracic and lumbar spine showed no acute findings. Patient is currently afebrile. Normal white count. Will also obtain MRI of the thoracic and lumbar spine. Hypoglycemia: Will continue D5; fingerstick glucose q2h; obtain hba1c, insulin c peptide; Opiate dependence: Will defer to the a.m. team to confirm the home methadone and to resume accordingly. For all other chronic conditions, home medications will be continued Full code
--- NOTE | 2021-01-03 00:57 | PC.NURSE ---
waredresser at bedside to collect covid swab
[2021-01-03] MEDS: Dextrose 5 % and 0.45 % NaCl 1,000 ML 100 ML IVCONT ×2 (01:18→11:57)
[2021-01-03 01:24] LABS: Glucose, Whole Blood 108 mg/dL (60-115)
[2021-01-03 01:28] LABS: COVID-19 Test Negative (Negative); IDNOW Serial# 9DD0AD1C
[2021-01-03 02:33] VITALS: RESP 16
[2021-01-03 02:35] LABS: Glucose, Whole Blood 91 mg/dL (60-115)
[2021-01-03 04:00] VITALS: RESP 16
[2021-01-03 06:15] LABS: Glucose, Whole Blood 97 mg/dL (60-115)
[2021-01-03 06:19] VITALS: BP 137/79; PULSE 69; RESP 16
[2021-01-03 06:19] LABS: Glucose, Whole Blood 83 mg/dL (60-115)
--- NOTE | 2021-01-03 06:48 | PC.NURSE ---
D5NS held as fluids changed to D5 1/2 NS.
[2021-01-03 09:36] LABS: Glucose, Whole Blood 106 mg/dL (60-115)
[2021-01-03] MEDS: Aspirin 81 MG TAB.CHEW PO (10:22)
[2021-01-03] MEDS: Topiramate 100 MG TABLET 200 MG PO (10:23)
[2021-01-03] MEDS: buPROPion HCl XL 300 MG TAB.ER.24H PO (10:23)
[2021-01-03] MEDS: Ferrous Sulfate 324 MG TABLET.DR PO (10:23)
[2021-01-03] MEDS: busPIRone HCl 10 MG TABLET 30 MG PO ×2 (10:23→21:47)
[2021-01-03] MEDS: Multivitamin TABLET 1 TAB PO (10:23)
[2021-01-03] MEDS: diazePAM 5 MG TABLET PO ×3 (10:24→21:47)
[2021-01-03] MEDS: Cyanocobalamin (Vitamin B-12) 1,000 MCG TABLET 1000 MCG PO (10:24)
[2021-01-03] MEDS: Loratadine 10 MG TABLET PO (10:24)
--- NOTE | 2021-01-03 10:24 | MHC.RECOVSUP ---
? Reason for consult:Continuity of care o Current location: [address] [place] [address] o Identified substance use concern:Heroin - Withdrawal - Support ? Intervention: o MAT started or to be started o Community resources provided o Harm reduction discussion ? Plan: o Follow up tomorrow o Patient to follow up with [facility] after discharge ? Additional information:patient awaiting methadone dose due to confirmation via her methadone clinic.
--- NOTE | 2021-01-03 10:32 | PC.NURSE ---
CALL TO [facility]
[2021-01-03] MEDS: Gabapentin 400 MG CAPSULE 800 MG PO ×3 (11:11→21:47)
[2021-01-03] MEDS: lamoTRIgine 25 MG TABLET 50 MG PO (11:11)
--- NOTE | 2021-01-03 11:27 | HO.MIDLINE ---
PICC Line Insertion MIDLINE INSERTION Technique: Using sterile technique including cap and mask, glove and drape, the LEFT arm was prepped and draped in the usual sterile fashion of full barrier technique with [facility]. Using ultrasound guidance, BRACHIAL vein access was obtained IN SINGLE ATTEMPT BY THIS RN. A (20G x 8CM), SINGLE LUMEN, NON-PASV MIDLINE catheter was positioned. The procedure was performed in [place] [id number]. Ultrasound was used to document vein patency and for needle entry. A formal ultrasound picture was recorded. [employer] has released the line for use and it is currently dressed with a StatLock, Tegaderm, and CHG disc. Verification has been performed for blood return and line patency. Equipment: [employer] POWERGLIDE PRO MIDLINE Catheter Type: 20G X 8CM, SINGLE LUMEN, NON-PASV Lot #: [id number]
[2021-01-03] MEDS: Morphine Sulfate 2 MG/ML CARTRIDGE IVPUSH ×2 (11:57→21:47)
[2021-01-03 12:00] LABS: Glucose, Whole Blood 166 mg/dL (60-115)
--- NOTE | 2021-01-03 12:26 | PC.NURSE ---
left message a second time to obtain dose verification from methadone clinic
--- NOTE | 2021-01-03 12:28 | PC.NURSE ---
patient a&ox3, pt medicated for pain per order, ivf running per order, poc obtained, will continue to monitor
--- NOTE | 2021-01-03 14:00 | PC.NURSE ---
pt to mri
[2021-01-03 15:27] LABS: Glucose, Whole Blood 116 mg/dL (60-115)
--- NOTE | 2021-01-03 15:45 | PC.NURSE ---
patient medicated per order, labs drawn, pt currently eating, will continue to monitor.
[2021-01-03 16:01] LABS: MANUAL DIFF FLAG NO
[2021-01-03 16:02] LABS: Basophils Percent Auto 0.7 % (0-2); Eosinophils Absolute Auto 0.1 X10*3/uL (0.0-0.4); Eosinophils Percent Auto 4.4 % (0-4); Hematocrit 37.5 % (37-47); Hemoglobin 12.5 g/dl (12.0-16.0); Imm Gran Abs Auto 0.01 X10*3/uL (0.00-0.03); Imm Gran Pct Auto 0.3 % (0.0-0.4); Lymphocytes Percent Auto 34.5 % (20-40); Mean Corpuscular HGB Conc 33.3 g/dl (31.0-35.0); Mean Corpuscular Hemoglobin 30.7 pg (27.0-33.0); Mean Corpuscular Volume 92.1 fL (80-98); Mean Platelet Volume 9.7 fL (9.4-12.3); Monocytes Absolute Auto 0.2 X10*3/uL (0.1-1.2); Monocytes Percent Auto 7.5 % (2-11); Neutrophils Absolute Auto 1.5 X10*3/uL (2.0-8.3); Neutrophils Percent Auto 52.6 % (45-73); Platelet Count 159 X10*3/uL (160-400); Red Blood Count 4.07 X10*6/uL (4.20-5.50); Red Cell Distribution Width 14.2 % (11.0-16.0); White Blood Count 2.9 X10*3/uL (4.8-10.8)
--- NOTE | 2021-01-03 16:02 | PC.NURSE ---
methadone this nurse attempted again to call methadone clinic for verification with no success, multiple messages have been left and this nurse also attempted the after hours number which was not answered. will notify provider
--- NOTE | 2021-01-03 16:21 | PC.NURSE ---
methadone this nurse notified hospitalist of inability to get ahold of methadone clinic, our ED charge nurse gave this nurse an extension number that goes direct to the clinic charge nurse ([phone]) this nurse attempted to call the extension and again left another message. our ed pod nurse-juan ramon stated previously that the best time to get ahold of [facility] is at 6am and suggested having the overnight staff attempt to call them in the morning.
[2021-01-03 16:26] LABS: Estimated Average Glucose 82 mg/dL; Hemoglobin A1C 81.8673 umol/L; Hemoglobin A1c % 4.5 %
[2021-01-03 16:45] LABS: Anion Gap 10 (12-20); Blood Urea Nitrogen 3 mg/dL (9-16); Calcium 8.9 mg/dL (8.4-10.2); Carbon Dioxide 26 mmol/L (22-29); Chloride 108 mmol/L (96-108); Creatinine Clr Calc Pharmacy 109.3; Estimated Glomerular Filt Rate > 60; Glucose Random 145 mg/dL (60-115); Potassium 3.3 mmol/L (3.3-5.1); Sodium 141 mmol/L (135-145)
--- NOTE | 2021-01-03 17:14 | MHC.CM.PN ---
CM met with pt. A&Ox3. Pt initially sleepy. Asking for mihir ming and ice cream. Per RN, okay to give to pt. Pt c/o not having her methadone all day. Gets methadone from [facility] in [place]. Takes 90 mg/day. CM spoke with RN, who has made multiple calls to facility without response. Pt is homeless and stays with friends. Pt states she wants to go to a program upon discharge. Pt agreeable to meeting with motor coach supervisor. Pt states she will call friends for transportation at d/c. Pt verifies that Sarita Brennan (mother) is her HCP and it is on file. Pt requests that CM NOT call her mother. CM to follow for d/c needs.
[2021-01-03 18:13] LABS: Glucose, Whole Blood 115 mg/dL (60-115)
--- NOTE | 2021-01-03 19:56 | PC.NURSE ---
patient currently sleeping, rr 17, will continue monitor
--- NOTE | 2021-01-03 19:56 | PC.NURSE ---
called to give report, floor will call us back
[2021-01-03 20:07] LABS: Glucose, Whole Blood 126 mg/dL (60-115)
--- NOTE | 2021-01-03 20:20 | PC.NURSE ---
report called to floor
[2021-01-03] MEDS: Heparin Sodium,Porcine Flush 50 UNITS, 0.9 % Sodium Chloride Flush 5 ML IVFLUSH (21:48)
[2021-01-03 21:59] VITALS: BP 113/68; PULSE 70; RESP 18; TEMP 36.3; O2SAT 100
[2021-01-03 22:17] LABS: Glucose, Whole Blood 110 mg/dL (60-115)
[2021-01-04] VITALS (8 sets, daily range): BP systolic 114–134; BP diastolic 61–71; PULSE 67–77; RESP 12–19; TEMP 35.9–37; O2SAT 97–100
[2021-01-04 00:43] LABS: Glucose, Whole Blood 132 mg/dL (60-115)
[2021-01-04 03:38] LABS: Glucose, Whole Blood 109 mg/dL (60-115)
[2021-01-04 07:46] LABS: Glucose, Whole Blood 115 mg/dL (60-115)
[2021-01-04] MEDS: Heparin Sodium,Porcine Flush 50 UNITS, 0.9 % Sodium Chloride Flush 5 ML IVFLUSH ×3 (08:51→20:49)
[2021-01-04] MEDS: busPIRone HCl 10 MG TABLET 30 MG PO ×2 (08:52→20:48)
[2021-01-04] MEDS: buPROPion HCl XL 300 MG TAB.ER.24H PO (08:52)
[2021-01-04] MEDS: Topiramate 100 MG TABLET 200 MG PO (08:52)
[2021-01-04] MEDS: Loratadine 10 MG TABLET PO (08:52)
[2021-01-04] MEDS: Ferrous Sulfate 324 MG TABLET.DR PO (08:52)
[2021-01-04] MEDS: Aspirin 81 MG TAB.CHEW PO (08:52)
[2021-01-04] MEDS: diazePAM 5 MG TABLET PO ×3 (08:52→20:48)
[2021-01-04] MEDS: Multivitamin TABLET 1 TAB PO (08:52)
[2021-01-04] MEDS: Gabapentin 400 MG CAPSULE 800 MG PO ×3 (08:52→20:48)
[2021-01-04] MEDS: Cyanocobalamin (Vitamin B-12) 1,000 MCG TABLET 1000 MCG PO (08:52)
[2021-01-04] MEDS: lamoTRIgine 25 MG TABLET 50 MG PO (08:52)
--- NOTE | 2021-01-04 09:37 | HO.PM.IMPN ---
Subjective Subjective Date of Service: 01/04/21 Interval History: back pain Cardiovascular Cardiovascular: Reports no additional cardiovascular complaints Respiratory Respiratory: Reports no additional respiratory complaints Physical Exam Vital Signs: Vital Signs: Last Vital Signs Temp 98.5 F 01/04/21 07:32 Pulse 67 01/04/21 07:32 Resp 19 01/04/21 07:32 BP 131/66 01/04/21 07:32 Pulse Ox 97 01/04/21 07:32 Body Mass Index 28.8 General: AO X 3, no acute distress Resp: CTA bilateral CVS: S1,S2,RRR GI: soft, non tender, non distended Neuro: refuses to participate in neuro exam Psych: appropriate affect Objective Data Current Medications Generic Name Dose Route Start Last Admin Trade Name Freq PRN Reason Stop Dose Admin Acetaminophen 650 mg 01/03/21 00:48 Acetaminophen 325 Mg Tablet PO Q6H PRN Pain, Mild (Pain Scale 1-3) Aspirin 81 mg 01/03/21 09:00 01/04/21 08:52 Aspirin 81 Mg Tab.Chew PO 81 mg DAILY EDER Administration Bupropion HCl 300 mg 01/03/21 09:00 01/04/21 08:52 Bupropion Hcl Xl 300 Mg Tab.Er.24h PO 300 mg DAILY EDER Administration Buspirone HCl 30 mg 01/03/21 09:00 01/04/21 08:52 Buspirone Hcl 10 Mg Tablet PO 30 mg BID EDER Administration Heparin Sodium (Porcine) 50 0 units 01/03/21 15:00 01/04/21 08:51 units/ Sodium Chloride 5 ml IVFLUSH 50 unit TID EDER Administration Cyanocobalamin 1,000 mcg 01/03/21 09:00 01/04/21 08:52 Cyanocobalamin (Vitamin B-12) 1,000 Mcg Tablet PO 1,000 mcg DAILY EDER Administration Diazepam 5 mg 01/03/21 09:00 01/04/21 08:52 Diazepam 5 Mg Tablet PO 5 mg TID EDER Administration Ferrous Sulfate 324 mg 01/03/21 09:00 01/04/21 08:52 Ferrous Sulfate 324 Mg Tablet. PO 324 mg DAILY EDER Administration Gabapentin 800 mg 01/03/21 09:00 01/04/21 08:52 Gabapentin 400 Mg Capsule PO 800 mg TID EDER Administration Hydroxyzine HCl 50 mg 01/03/21 08:02 Hydroxyzine Hcl 50 Mg Tablet PO BID PRN anxiety Lamotrigine 50 mg 01/03/21 09:00 01/04/21 08:52 Lamotrigine 25 Mg Tablet PO 50 mg DAILY EDER Administration Loratadine 10 mg 01/03/21 09:00 01/04/21 08:52 Loratadine 10 Mg Tablet PO 10 mg DAILY EDER Administration Methadone HCl 90 mg 01/03/21 09:00 Methadone Hcl 1 Mg/0.1 Ml Oral.Conc PO DAILY EDER Morphine Sulfate 2 mg 01/03/21 16:15 01/03/21 21:47 Morphine Sulfate 2 Mg/Ml Cartridge IVPUSH 2 mg Q4H PRN Administration pain Multivitamins/Vitamin C 1 tab 01/03/21 09:00 01/04/21 08:52 Multivitamin Tablet PO 1 tab DAILY EDER Administration Pharmacy Consult 1 each 01/03/21 09:50 Consult Rx Perform Med Rec MISCELLANE ONCE PRN Consult order Propranolol HCl 20 mg 01/03/21 08:02 Propranolol Hcl 20 Mg Tablet PO Q6H PRN Anxiety Protocol Senna 17.2 mg 01/03/21 00:48 Sennosides 8.6 Mg Tablet PO BEDTIME PRN Constipation Sodium Chloride 3 ml 01/03/21 08:00 01/04/21 08:53 0.9 % Sodium Chloride Flush 3 Ml Syringe IVFLUSH Not Given QSHIFT EDER Topiramate 200 mg 01/03/21 09:00 01/04/21 08:52 Topiramate 100 Mg Tablet PO 200 mg DAILY EDER Administration Labs CBC & Chem 7: 01/03/21 15:43 01/03/21 15:43 Assessment and Plan (1) Hypoglycemia: Status: Acute Assessment and Plan: 40F presented with hypoglycvemia and back pain hypoglycemia likely due to poor intake and poor glycogen reserve due to HCV liver disease resolved with increased intake no history of DM, not on antihyperglycemics back pain MRI unremarkable likely [facility] PT eval polysubstance abuse methadone once verified HCV outpatient management bipolar continue mood stabilizers
[2021-01-04 11:17] LABS: Basophils Percent Auto 0.7 % (0-2); Eosinophils Absolute Auto 0.1 X10*3/uL (0.0-0.4); Eosinophils Percent Auto 4.4 % (0-4); Hematocrit 39.2 % (37-47); Hemoglobin 12.9 g/dl (12.0-16.0); Lymphocytes Absolute Auto 1.2 X10*3/uL (1.2-4.9); MANUAL DIFF FLAG NO; Mean Corpuscular HGB Conc 32.9 g/dl (31.0-35.0); Mean Corpuscular Hemoglobin 30.4 pg (27.0-33.0); Mean Corpuscular Volume 92.5 fL (80-98); Monocytes Absolute Auto 0.2 X10*3/uL (0.1-1.2); Monocytes Percent Auto 7.7 % (2-11); Neutrophils Absolute Auto 1.2 X10*3/uL (2.0-8.3); Neutrophils Percent Auto 45.2 % (45-73); Platelet Count 171 X10*3/uL (160-400); Red Blood Count 4.24 X10*6/uL (4.20-5.50); Red Cell Distribution Width 14.6 % (11.0-16.0); White Blood Count 2.7 X10*3/uL (4.8-10.8)
[2021-01-04 11:24] LABS: Glucose, Whole Blood 116 mg/dL (60-115)
[2021-01-04 11:52] LABS: Anion Gap 12 (12-20); Blood Urea Nitrogen 4 mg/dL (9-16); Calcium 9.1 mg/dL (8.4-10.2); Carbon Dioxide 24 mmol/L (22-29); Chloride 111 mmol/L (96-108); Creatinine Clr Calc Pharmacy 107.8; Estimated Glomerular Filt Rate > 60; Glucose Fasting 95 mg/dL (60-99); Potassium 3.5 mmol/L (3.3-5.1); Sodium 143 mmol/L (135-145)
--- NOTE | 2021-01-04 12:04 | MHC.CM.PN ---
nurse manisha mis manager note electronic medical record reviewed along with case discussed with staff nurse and with the hospitlaist . patient was evaluated by the physical theaprist today and recomended short term rehab. patient had been receiving her methadone at [facility], (reports she has not had her methadone in a feq days ptatient reports that her mother is her health care proxy. referrals limited to [facility] and [facility] patient is awareof the need for short term rehab and in agreement with referrals being made . PATIENT IS 40-year-old WITH PAST MEDICAL HISTORY OF POLYSUBSTANCE ABUSE, ANXIETY, DEPRESSION, BIPOLAR AND PTSD PER DOCUMENTATION opiate dependence on methadone, DISCHARGE PLAN RECOMENDATIONS FOR SHORT TERM REHAB INIATED REFERRALS TO [facility] AND [place] FOR DISCHARGE TODAY HEALTH CARE PROXY ON FILE
[2021-01-04] MEDS: Morphine Sulfate 2 MG/ML CARTRIDGE IVPUSH ×2 (13:36→20:50)
[2021-01-04 17:22] LABS: Glucose, Whole Blood 146 mg/dL (60-115)
[2021-01-04 20:31] LABS: Glucose, Whole Blood 175 mg/dL (60-115)
[2021-01-05 04:00] VITALS: BP 121/72; PULSE 75; RESP 16; TEMP 36.6; O2SAT 99
[2021-01-05 07:53] VITALS: BP 107/59; PULSE 68; RESP 18; TEMP 36.3; O2SAT 100
[2021-01-05] MEDS: Heparin Sodium,Porcine Flush 50 UNITS, 0.9 % Sodium Chloride Flush 5 ML IVFLUSH ×3 (07:55→20:38)
[2021-01-05] MEDS: 0.9 % Sodium Chloride Flush 3 ML SYRINGE IVFLUSH ×2 (07:55→17:29)
[2021-01-05] MEDS: Morphine Sulfate 2 MG/ML CARTRIDGE IVPUSH ×3 (07:56→17:29)
[2021-01-05] MEDS: Multivitamin TABLET 1 TAB PO (07:57)
[2021-01-05] MEDS: lamoTRIgine 25 MG TABLET 50 MG PO (07:57)
[2021-01-05] MEDS: Ferrous Sulfate 324 MG TABLET.DR PO (07:57)
[2021-01-05] MEDS: Aspirin 81 MG TAB.CHEW PO (07:57)
[2021-01-05] MEDS: Gabapentin 400 MG CAPSULE 800 MG PO ×3 (07:57→20:37)
[2021-01-05] MEDS: Loratadine 10 MG TABLET PO (07:58)
[2021-01-05] MEDS: diazePAM 5 MG TABLET PO ×3 (07:58→20:37)
[2021-01-05] MEDS: buPROPion HCl XL 300 MG TAB.ER.24H PO (07:58)
[2021-01-05] MEDS: Topiramate 100 MG TABLET 200 MG PO (07:58)
[2021-01-05] MEDS: Cyanocobalamin (Vitamin B-12) 1,000 MCG TABLET 1000 MCG PO (07:58)
[2021-01-05] MEDS: busPIRone HCl 10 MG TABLET 30 MG PO ×2 (07:58→20:37)
[2021-01-05 08:07] LABS: Glucose, Whole Blood 104 mg/dL (60-115)
--- NOTE | 2021-01-05 09:42 | HO.PM.IMPN ---
Subjective Subjective Date of Service: 01/05/21 Interval History: weak Cardiovascular Cardiovascular: Reports no additional cardiovascular complaints Respiratory Respiratory: Reports no additional respiratory complaints Physical Exam Vital Signs: Vital Signs: Last Vital Signs Temp 97.3 F 01/05/21 07:53 Pulse 68 01/05/21 07:53 Resp 18 01/05/21 07:53 BP 107/59 L 01/05/21 07:53 Pulse Ox 100 01/05/21 07:53 Body Mass Index 28.8 General: AO X 3, no acute distress Resp: CTA bilateral CVS: S1,S2,RRR GI: soft, non tender, non distended Neuro: grossly weak, no focal deficit Psych: appropriate affect Objective Data Current Medications Generic Name Dose Route Start Last Admin Trade Name Freq PRN Reason Stop Dose Admin Acetaminophen 650 mg 01/03/21 00:48 Acetaminophen 325 Mg Tablet PO Q6H PRN Pain, Mild (Pain Scale 1-3) Aspirin 81 mg 01/03/21 09:00 01/05/21 07:57 Aspirin 81 Mg Tab.Chew PO 81 mg DAILY EDER Administration Bupropion HCl 300 mg 01/03/21 09:00 01/05/21 07:58 Bupropion Hcl Xl 300 Mg Tab.Er.24h PO 300 mg DAILY EDER Administration Buspirone HCl 30 mg 01/03/21 09:00 01/05/21 07:58 Buspirone Hcl 10 Mg Tablet PO 30 mg BID EDER Administration Heparin Sodium (Porcine) 50 0 units 01/03/21 15:00 01/05/21 07:55 units/ Sodium Chloride 5 ml IVFLUSH 50 unit TID EDER Administration Cyanocobalamin 1,000 mcg 01/03/21 09:00 01/05/21 07:58 Cyanocobalamin (Vitamin B-12) 1,000 Mcg Tablet PO 1,000 mcg DAILY EDER Administration Diazepam 5 mg 01/03/21 09:00 01/05/21 07:58 Diazepam 5 Mg Tablet PO 5 mg TID EDER Administration Ferrous Sulfate 324 mg 01/03/21 09:00 01/05/21 07:57 Ferrous Sulfate 324 Mg Tablet. PO 324 mg DAILY EDER Administration Gabapentin 800 mg 01/03/21 09:00 01/05/21 07:57 Gabapentin 400 Mg Capsule PO 800 mg TID EDER Administration Hydroxyzine HCl 50 mg 01/03/21 08:02 Hydroxyzine Hcl 50 Mg Tablet PO BID PRN anxiety Lamotrigine 50 mg 01/03/21 09:00 01/05/21 07:57 Lamotrigine 25 Mg Tablet PO 50 mg DAILY EDER Administration Loratadine 10 mg 01/03/21 09:00 01/05/21 07:58 Loratadine 10 Mg Tablet PO 10 mg DAILY EDER Administration Methadone HCl 90 mg 01/03/21 09:00 01/05/21 07:59 Methadone Hcl 1 Mg/0.1 Ml Oral.Conc PO 90 mg DAILY EDER Administration Morphine Sulfate 2 mg 01/03/21 16:15 01/05/21 07:56 Morphine Sulfate 2 Mg/Ml Cartridge IVPUSH 2 mg Q4H PRN Administration pain Multivitamins/Vitamin C 1 tab 01/03/21 09:00 01/05/21 07:57 Multivitamin Tablet PO 1 tab DAILY EDER Administration Pharmacy Consult 1 each 01/03/21 09:50 Consult Rx Perform Med Rec MISCELLANE ONCE PRN Consult order Propranolol HCl 20 mg 01/03/21 08:02 Propranolol Hcl 20 Mg Tablet PO Q6H PRN Anxiety Protocol Senna 17.2 mg 01/03/21 00:48 Sennosides 8.6 Mg Tablet PO BEDTIME PRN Constipation Sodium Chloride 3 ml 01/03/21 08:00 01/05/21 07:55 0.9 % Sodium Chloride Flush 3 Ml Syringe IVFLUSH 3 ml QSHIFT EDER Administration Topiramate 200 mg 01/03/21 09:00 01/05/21 07:58 Topiramate 100 Mg Tablet PO 200 mg DAILY EDER Administration Labs CBC & Chem 7: 01/04/21 10:11 01/04/21 10:11 Assessment and Plan (1) Hypoglycemia: Status: Acute Assessment and Plan: 40F presented with hypoglycvemia and back pain hypoglycemia likely due to poor intake and poor glycogen reserve due to HCV liver disease resolved with increased intake no history of DM, not on antihyperglycemics back pain MRI unremarkable likely [facility] plan for STR at SNF once auth obtained polysubstance abuse methadone once verified HCV outpatient management bipolar continue mood stabilizers
[2021-01-05 11:41] VITALS: BP 123/84; PULSE 82; RESP 18; TEMP 36.3; O2SAT 100
[2021-01-05 11:48] LABS: Glucose, Whole Blood 125 mg/dL (60-115)
[2021-01-05] MEDS: Cyclobenzaprine HCl 10 MG TABLET PO ×2 (12:44→20:37)
[2021-01-05 15:27] VITALS: BP 114/64; PULSE 78; RESP 18; TEMP 36; O2SAT 100
[2021-01-05 19:12] VITALS: BP 129/76; PULSE 79; RESP 18; TEMP 36.2; O2SAT 99
[2021-01-05 23:59] VITALS: BP 118/60; PULSE 79; RESP 16; TEMP 36.8; O2SAT 98
[2021-01-06] MEDS: 0.9 % Sodium Chloride Flush 3 ML SYRINGE IVFLUSH ×4 (00:23→21:01)
[2021-01-06 03:45] VITALS: BP 118/58; PULSE 72; RESP 16; TEMP 36.4; O2SAT 99
[2021-01-06] MEDS: Morphine Sulfate 2 MG/ML CARTRIDGE IVPUSH ×5 (04:21→20:59)
[2021-01-06 08:00] VITALS: PULSE 79; RESP 18; TEMP 36.1; O2SAT 98
[2021-01-06] MEDS: buPROPion HCl XL 300 MG TAB.ER.24H PO (08:26)
[2021-01-06] MEDS: Heparin Sodium,Porcine Flush 50 UNITS, 0.9 % Sodium Chloride Flush 5 ML IVFLUSH ×3 (08:26→21:00)
[2021-01-06] MEDS: Multivitamin TABLET 1 TAB PO (08:27)
[2021-01-06] MEDS: Ferrous Sulfate 324 MG TABLET.DR PO (08:27)
[2021-01-06] MEDS: Gabapentin 400 MG CAPSULE 800 MG PO ×3 (08:27→20:59)
[2021-01-06] MEDS: Topiramate 100 MG TABLET 200 MG PO (08:27)
[2021-01-06] MEDS: diazePAM 5 MG TABLET PO ×3 (08:28→20:59)
[2021-01-06] MEDS: busPIRone HCl 10 MG TABLET 30 MG PO ×2 (08:28→20:58)
[2021-01-06] MEDS: Aspirin 81 MG TAB.CHEW PO (08:28)
[2021-01-06] MEDS: lamoTRIgine 25 MG TABLET 50 MG PO (08:28)
[2021-01-06] MEDS: Cyanocobalamin (Vitamin B-12) 1,000 MCG TABLET 1000 MCG PO (08:28)
[2021-01-06] MEDS: Loratadine 10 MG TABLET PO (08:28)
[2021-01-06] MEDS: Cyclobenzaprine HCl 10 MG TABLET PO ×3 (08:31→22:32)
--- NOTE | 2021-01-06 10:12 | HO.PM.IMPN ---
Subjective Subjective Date of Service: 01/06/21 Interval History: back pain Cardiovascular Cardiovascular: Reports no additional cardiovascular complaints Respiratory Respiratory: Reports no additional respiratory complaints Physical Exam Vital Signs: Vital Signs: Last Vital Signs Temp 97.0 F 01/06/21 08:00 Pulse 79 01/06/21 08:00 Resp 18 01/06/21 08:00 BP 118/58 L 01/06/21 03:45 Pulse Ox 98 01/06/21 08:00 Body Mass Index 28.8 General: AO X 3, no acute distress Resp: CTA bilateral CVS: S1,S2,RRR GI: soft, non tender, non distended Neuro: grossly weak, no focal deficit Psych: appropriate affect Objective Data Current Medications Generic Name Dose Route Start Last Admin Trade Name Freq PRN Reason Stop Dose Admin Acetaminophen 650 mg 01/03/21 00:48 Acetaminophen 325 Mg Tablet PO Q6H PRN Pain, Mild (Pain Scale 1-3) Aspirin 81 mg 01/03/21 09:00 01/06/21 08:28 Aspirin 81 Mg Tab.Chew PO 81 mg DAILY EDER Administration Bupropion HCl 300 mg 01/03/21 09:00 01/06/21 08:26 Bupropion Hcl Xl 300 Mg Tab.Er.24h PO 300 mg DAILY EDER Administration Buspirone HCl 30 mg 01/03/21 09:00 01/06/21 08:28 Buspirone Hcl 10 Mg Tablet PO 30 mg BID EDER Administration Heparin Sodium (Porcine) 50 0 units 01/03/21 15:00 01/06/21 08:26 units/ Sodium Chloride 5 ml IVFLUSH 50 unit TID EDER Administration Cyanocobalamin 1,000 mcg 01/03/21 09:00 01/06/21 08:28 Cyanocobalamin (Vitamin B-12) 1,000 Mcg Tablet PO 1,000 mcg DAILY EDER Administration Cyclobenzaprine HCl 10 mg 01/05/21 12:18 01/06/21 08:31 Cyclobenzaprine Hcl 10 Mg Tablet PO 10 mg TID PRN Administration back pain Diazepam 5 mg 01/03/21 09:00 01/06/21 08:28 Diazepam 5 Mg Tablet PO 5 mg TID EDER Administration Ferrous Sulfate 324 mg 01/03/21 09:00 01/06/21 08:27 Ferrous Sulfate 324 Mg Tablet.Dr PO 324 mg DAILY EDER Administration Gabapentin 800 mg 01/03/21 09:00 01/06/21 08:27 Gabapentin 400 Mg Capsule PO 800 mg TID EDER Administration Hydroxyzine HCl 50 mg 01/03/21 08:02 Hydroxyzine Hcl 50 Mg Tablet PO BID PRN anxiety Lamotrigine 50 mg 01/03/21 09:00 01/06/21 08:28 Lamotrigine 25 Mg Tablet PO 50 mg DAILY EDER Administration Loratadine 10 mg 01/03/21 09:00 01/06/21 08:28 Loratadine 10 Mg Tablet PO 10 mg DAILY EDER Administration Methadone HCl 90 mg 01/03/21 09:00 01/06/21 08:26 Methadone Hcl 1 Mg/0.1 Ml Oral.Conc PO 90 mg DAILY EDER Administration Morphine Sulfate 2 mg 01/03/21 16:15 01/06/21 08:29 Morphine Sulfate 2 Mg/Ml Cartridge IVPUSH 2 mg Q4H PRN Administration pain Multivitamins/Vitamin C 1 tab 01/03/21 09:00 01/06/21 08:27 Multivitamin Tablet PO 1 tab DAILY EDER Administration Pharmacy Consult 1 each 01/03/21 09:50 Consult Rx Perform Med Rec MISCELLANE ONCE PRN Consult order Propranolol HCl 20 mg 01/03/21 08:02 Propranolol Hcl 20 Mg Tablet PO Q6H PRN Anxiety Protocol Senna 17.2 mg 01/03/21 00:48 Sennosides 8.6 Mg Tablet PO BEDTIME PRN Constipation Sodium Chloride 3 ml 01/03/21 08:00 01/06/21 08:26 0.9 % Sodium Chloride Flush 3 Ml Syringe IVFLUSH 3 ml QSHIFT EDER Administration Topiramate 200 mg 01/03/21 09:00 01/06/21 08:27 Topiramate 100 Mg Tablet PO 200 mg DAILY EDER Administration Labs CBC & Chem 7: 01/04/21 10:11 01/04/21 10:11 Assessment and Plan (1) Hypoglycemia: Status: Acute Assessment and Plan: 40F presented with hypoglycvemia and back pain hypoglycemia likely due to poor intake and poor glycogen reserve due to HCV liver disease resolved with increased intake no history of DM, not on antihyperglycemics back pain MRI unremarkable likely [facility] plan for STR at SNF once auth obtained, still pending polysubstance abuse methadone once verified HCV outpatient management bipolar continue mood stabilizers
[2021-01-06 11:45] VITALS: BP 106/52; PULSE 77; RESP 18; TEMP 36.7; O2SAT 97
[2021-01-06 15:40] VITALS: BP 118/73; PULSE 85; RESP 18; TEMP 35.4; O2SAT 97
[2021-01-06 20:00] VITALS: BP 105/57; PULSE 84; RESP 18; O2SAT 100
[2021-01-06 23:32] VITALS: BP 113/69; PULSE 93; RESP 16; TEMP 36.3; O2SAT 97
[2021-01-07] VITALS (7 sets, daily range): BP systolic 103–126; BP diastolic 57–74; PULSE 62–98; RESP 16–20; TEMP 36.4–37.1; O2SAT 96–99
[2021-01-07] MEDS: Morphine Sulfate 2 MG/ML CARTRIDGE IVPUSH ×5 (02:37→22:02)
[2021-01-07] MEDS: Ferrous Sulfate 324 MG TABLET.DR PO (08:29)
[2021-01-07] MEDS: Gabapentin 400 MG CAPSULE 800 MG PO ×3 (08:29→20:11)
[2021-01-07] MEDS: buPROPion HCl XL 300 MG TAB.ER.24H PO (08:29)
[2021-01-07] MEDS: Aspirin 81 MG TAB.CHEW PO (08:29)
[2021-01-07] MEDS: diazePAM 5 MG TABLET PO ×3 (08:30→20:11)
[2021-01-07] MEDS: lamoTRIgine 25 MG TABLET 50 MG PO (08:30)
[2021-01-07] MEDS: busPIRone HCl 10 MG TABLET 30 MG PO ×2 (08:30→20:11)
[2021-01-07] MEDS: Loratadine 10 MG TABLET PO (08:30)
[2021-01-07] MEDS: Topiramate 100 MG TABLET 200 MG PO (08:30)
[2021-01-07] MEDS: Cyanocobalamin (Vitamin B-12) 1,000 MCG TABLET 1000 MCG PO (08:30)
[2021-01-07] MEDS: Multivitamin TABLET 1 TAB PO (08:30)
[2021-01-07] MEDS: Heparin Sodium,Porcine Flush 50 UNITS, 0.9 % Sodium Chloride Flush 5 ML IVFLUSH ×3 (08:31→20:12)
--- NOTE | 2021-01-07 09:52 | HO.PM.IMPN ---
Subjective Subjective Date of Service: 01/07/21 Interval History: back pain Cardiovascular Cardiovascular: Reports no additional cardiovascular complaints Gastrointestinal Gastrointestinal: Reports no additional gastrointestinal complaints Physical Exam Vital Signs: Vital Signs: Last Vital Signs Temp 98.8 F 01/07/21 08:00 Pulse 86 01/07/21 08:00 Resp 18 01/07/21 08:00 BP 103/58 L 01/07/21 08:00 Pulse Ox 98 01/07/21 08:00 Body Mass Index 28.8 General: AO X 3, no acute distress Resp: CTA bilateral CVS: S1,S2,RRR GI: soft, non tender, non distended Neuro: grossly weak, no focal deficit Psych: appropriate affect Objective Data Current Medications Generic Name Dose Route Start Last Admin Trade Name Freq PRN Reason Stop Dose Admin Acetaminophen 650 mg 01/03/21 00:48 Acetaminophen 325 Mg Tablet PO Q6H PRN Pain, Mild (Pain Scale 1-3) Aspirin 81 mg 01/03/21 09:00 01/07/21 08:29 Aspirin 81 Mg Tab.Chew PO 81 mg DAILY EDER Administration Bupropion HCl 300 mg 01/03/21 09:00 01/07/21 08:29 Bupropion Hcl Xl 300 Mg Tab.Er.24h PO 300 mg DAILY EDER Administration Buspirone HCl 30 mg 01/03/21 09:00 01/07/21 08:30 Buspirone Hcl 10 Mg Tablet PO 30 mg BID EDER Administration Heparin Sodium (Porcine) 50 0 units 01/03/21 15:00 01/07/21 08:31 units/ Sodium Chloride 5 ml IVFLUSH 50 unit TID EDER Administration Cyanocobalamin 1,000 mcg 01/03/21 09:00 01/07/21 08:30 Cyanocobalamin (Vitamin B-12) 1,000 Mcg Tablet PO 1,000 mcg DAILY EDER Administration Cyclobenzaprine HCl 10 mg 01/05/21 12:18 01/06/21 22:32 Cyclobenzaprine Hcl 10 Mg Tablet PO 10 mg TID PRN Administration back pain Diazepam 5 mg 01/03/21 09:00 01/07/21 08:30 Diazepam 5 Mg Tablet PO 5 mg TID EDER Administration Ferrous Sulfate 324 mg 01/03/21 09:00 01/07/21 08:29 Ferrous Sulfate 324 Mg Tablet.Dr PO 324 mg DAILY EDER Administration Gabapentin 800 mg 01/03/21 09:00 01/07/21 08:29 Gabapentin 400 Mg Capsule PO 800 mg TID EDER Administration Hydroxyzine HCl 50 mg 01/03/21 08:02 Hydroxyzine Hcl 50 Mg Tablet PO BID PRN anxiety Lamotrigine 50 mg 01/03/21 09:00 01/07/21 08:30 Lamotrigine 25 Mg Tablet PO 50 mg DAILY EDER Administration Loratadine 10 mg 01/03/21 09:00 01/07/21 08:30 Loratadine 10 Mg Tablet PO 10 mg DAILY EDER Administration Methadone HCl 90 mg 01/03/21 09:00 01/06/21 08:26 Methadone Hcl 1 Mg/0.1 Ml Oral.Conc PO 90 mg DAILY EDER Administration Morphine Sulfate 2 mg 01/03/21 16:15 01/07/21 08:30 Morphine Sulfate 2 Mg/Ml Cartridge IVPUSH 2 mg Q4H PRN Administration pain Multivitamins/Vitamin C 1 tab 01/03/21 09:00 01/07/21 08:30 Multivitamin Tablet PO 1 tab DAILY EDER Administration Pharmacy Consult 1 each 01/03/21 09:50 Consult Rx Perform Med Rec MISCELLANE ONCE PRN Consult order Propranolol HCl 20 mg 01/03/21 08:02 Propranolol Hcl 20 Mg Tablet PO Q6H PRN Anxiety Protocol Senna 17.2 mg 01/03/21 00:48 Sennosides 8.6 Mg Tablet PO BEDTIME PRN Constipation Sodium Chloride 3 ml 01/03/21 08:00 01/07/21 08:31 0.9 % Sodium Chloride Flush 3 Ml Syringe IVFLUSH Not Given QSHIFT [facility] Topiramate 200 mg 01/03/21 09:00 01/07/21 08:30 Topiramate 100 Mg Tablet PO 200 mg DAILY EDER Administration Labs CBC & Chem 7: 01/04/21 10:11 01/04/21 10:11 Assessment and Plan (1) Hypoglycemia: Status: Acute Assessment and Plan: 40F presented with hypoglycvemia and back pain no new complaints, back pain improving hypoglycemia likely due to poor intake and poor glycogen reserve due to HCV liver disease resolved with increased intake no history of DM, not on antihyperglycemics back pain MRI unremarkable likely [facility] plan for STR at SNF once auth obtained, still pending polysubstance abuse methadone once verified HCV outpatient management bipolar continue mood stabilizers
[2021-01-07] MEDS: Cyclobenzaprine HCl 10 MG TABLET PO ×2 (11:30→22:07)
--- NOTE | 2021-01-07 13:01 | MHC.CM.PN ---
CM CONTACTED ACCEPTING SNF TODAY AT 9:41AM VIA [facility], PER [facility] THEY HAVE NOT RECEIVED INSURANCE AUTH FOR PT'S STAY.
--- NOTE | 2021-01-07 14:51 | PC.NURSE ---
P patient is requested to be evaluated for UTI,does not report any specific symptoms just states feels weird I Dr. Saeed notified E will monitor
[2021-01-07] MEDS: Acetaminophen 325 MG TABLET 650 MG PO (15:02)
[2021-01-08] VITALS (7 sets, daily range): BP systolic 98–118; BP diastolic 56–83; PULSE 77–98; RESP 15–20; TEMP 36.2–37.1; O2SAT 95–98
[2021-01-08] MEDS: 0.9 % Sodium Chloride Flush 3 ML SYRINGE IVFLUSH ×3 (01:44→15:34)
[2021-01-08] MEDS: Morphine Sulfate 2 MG/ML CARTRIDGE IVPUSH ×5 (05:15→22:25)
[2021-01-08] MEDS: buPROPion HCl XL 300 MG TAB.ER.24H PO (09:06)
[2021-01-08] MEDS: Aspirin 81 MG TAB.CHEW PO (09:06)
[2021-01-08] MEDS: busPIRone HCl 10 MG TABLET 30 MG PO ×2 (09:06→19:52)
[2021-01-08] MEDS: Topiramate 100 MG TABLET 200 MG PO (09:07)
[2021-01-08] MEDS: diazePAM 5 MG TABLET PO ×3 (09:07→19:52)
[2021-01-08] MEDS: lamoTRIgine 25 MG TABLET 50 MG PO (09:07)
[2021-01-08] MEDS: Gabapentin 400 MG CAPSULE 800 MG PO ×3 (09:07→19:52)
[2021-01-08] MEDS: Loratadine 10 MG TABLET PO (09:07)
[2021-01-08] MEDS: Ferrous Sulfate 324 MG TABLET.DR PO (09:07)
[2021-01-08] MEDS: Cyanocobalamin (Vitamin B-12) 1,000 MCG TABLET 1000 MCG PO (09:07)
[2021-01-08] MEDS: Multivitamin TABLET 1 TAB PO (09:07)
[2021-01-08] MEDS: Heparin Sodium,Porcine Flush 50 UNITS, 0.9 % Sodium Chloride Flush 5 ML IVFLUSH ×3 (09:08→19:55)
[2021-01-08] MEDS: Cyclobenzaprine HCl 10 MG TABLET PO ×2 (10:38→19:53)
--- NOTE | 2021-01-08 11:39 | P.DS_ITS ---
DS: Providers Provider Date of Service: 01/08/21 Date of admission: 01/03/21 00:49 Primary care physician: Cici Corey MD DS: Diagnosis Discharge Diagnosis (1) Hypoglycemia: Status: Acute (2) Toxic metabolic encephalopathy: Status: Acute (3) Opioid dependence: Status: Acute (4) Cocaine abuse: Status: Acute DS: Medications Discharge Medications Home Medications: Home Medications Medication Instructions Recorded Confirmed aspirin 80 mg PO DAILY 12/04/20 01/03/21 bupropion HCl 150 mg PO BID 12/04/20 01/03/21 buspirone 30 mg PO BID 12/04/20 01/03/21 cyanocobalamin (vitamin B-12) 1,000 mcg PO DAILY 12/04/20 01/03/21 [Vitamin B-12] diclofenac sodium 50 mg PO TID PRN 12/04/20 01/03/21 ferrous sulfate 325 mg PO DAILY 12/04/20 01/03/21 hydroxyzine pamoate 1 cap PO BID PRN 12/04/20 01/03/21 lamotrigine 50 mg PO DAILY 12/04/20 01/03/21 loratadine 10 mg PO DAILY 12/04/20 01/03/21 multivitamin [Daily-Angle] 1 tab PO DAILY 12/04/20 01/03/21 propranolol 20 mg PO Q6H PRN 12/04/20 01/03/21 topiramate 200 mg PO DAILY 12/04/20 01/03/21 gabapentin 800 mg PO TID 12/07/20 01/03/21 methadone 90 mg PO DAILY 12/23/20 01/03/21 diazepam 1 tab PO TID 01/02/21 01/03/21 zolpidem 5 mg PO BEDTIME PRN 01/02/21 01/03/21 DS: Summary Hospital Course Hospital Course: Patient was admitted for metabolic encephalopathy due to hypoglycemia. This was likely due to poor p.o. intake in the setting of HCV liver disease. Time Spent with Patient Time attestation: Total time spent providing and/or coordinating discharge servi fazal: Discharge coordination time: Greater than 30 minutes Physical Exam Vital Signs: Vital Signs: Last Vital Signs Temp 97.1 F 01/08/21 07:54 Pulse 86 01/08/21 07:54 Resp 18 01/08/21 07:54 BP 111/56 L 01/08/21 07:54 Pulse Ox 98 01/08/21 07:54 Body Mass Index 28.8 Discharge Plan Discharge Patient Disposition: Xfer SNF Discharge Diagnosis: hypoglycemia Referrals: Cici Corey MD [Primary Care Provider] - 1 Week Discharge Medications: Continued methadone 10 mg/mL Concentrate 90 mg PO DAILY RF: 0 multivitamin [Daily-Angle] Tablet 1 tab PO DAILY RF: 0 bupropion HCl 150 mg tablet sustained-release 12 hr 150 mg PO BID RF: 0 cyanocobalamin (vitamin B-12) [Vitamin B-12] 1,000 mcg tablet 1,000 mcg PO DAILY RF: 0 hydroxyzine pamoate 50 mg capsule 1 cap PO BID PRN (Reason: anxiety) RF: 0 lamotrigine 25 mg tablet 50 mg PO DAILY RF: 0 buspirone 30 mg tablet 30 mg PO BID RF: 0 ferrous sulfate 325 mg (65 mg iron) tablet 325 mg PO DAILY RF: 0 aspirin 81 mg tablet,chewable 80 mg PO DAILY RF: 0 topiramate 200 mg tablet 200 mg PO DAILY RF: 0 diclofenac sodium 50 mg tablet,delayed release (DR/EC) 50 mg PO TID PRN (Reason: Anxiety) RF: 0 propranolol 20 mg tablet 20 mg PO Q6H PRN (Reason: Anxiety) RF: 0 loratadine 10 mg tablet 10 mg PO DAILY RF: 0 gabapentin 800 mg tablet 800 mg PO TID RF: 0 zolpidem 5 mg tablet 5 mg PO BEDTIME PRN (Reason: Insomnia) RF: 0 diazepam 5 mg tablet 1 tab PO TID RF: 0 Activity on Discharge: As tolerated Stand Alone Forms: Patient Portal Discharge page Care Plan Goals: recovery Health Concerns: back pain Plan of Treatment: avoid drugs, rehab Assessment: see above
--- NOTE | 2021-01-08 12:43 | HO.PM.IMPN ---
Subjective Subjective Date of Service: 01/08/21 Interval History: back pain Cardiovascular Cardiovascular: Reports no additional cardiovascular complaints Respiratory Respiratory: Reports no additional respiratory complaints Physical Exam Vital Signs: Vital Signs: Last Vital Signs Temp 98.7 F 01/08/21 11:48 Pulse 88 01/08/21 11:48 Resp 19 01/08/21 11:48 BP 113/59 L 01/08/21 11:48 Pulse Ox 98 01/08/21 11:48 Body Mass Index 28.8 General: AO X 3, no acute distress Resp: CTA bilateral CVS: S1,S2,RRR GI: soft, non tender, non distended Neuro: grossly weak, no focal deficit Psych: appropriate affect Objective Data Current Medications Generic Name Dose Route Start Last Admin Trade Name Freq PRN Reason Stop Dose Admin Acetaminophen 650 mg 01/03/21 00:48 01/07/21 15:02 Acetaminophen 325 Mg Tablet PO 650 mg Q6H PRN Administration Pain, Mild (Pain Scale 1-3) Aspirin 81 mg 01/03/21 09:00 01/08/21 09:06 Aspirin 81 Mg Tab.Chew PO 81 mg DAILY EDER Administration Bupropion HCl 300 mg 01/03/21 09:00 01/08/21 09:06 Bupropion Hcl Xl 300 Mg Tab.Er.24h PO 300 mg DAILY EDER Administration Buspirone HCl 30 mg 01/03/21 09:00 01/08/21 09:06 Buspirone Hcl 10 Mg Tablet PO 30 mg BID EDER Administration Heparin Sodium (Porcine) 50 0 units 01/03/21 15:00 01/08/21 09:08 units/ Sodium Chloride 5 ml IVFLUSH 50 unit TID EDER Administration Cyanocobalamin 1,000 mcg 01/03/21 09:00 01/08/21 09:07 Cyanocobalamin (Vitamin B-12) 1,000 Mcg Tablet PO 1,000 mcg DAILY EDER Administration Cyclobenzaprine HCl 10 mg 01/05/21 12:18 01/08/21 10:38 Cyclobenzaprine Hcl 10 Mg Tablet PO 10 mg TID PRN Administration back pain Diazepam 5 mg 01/03/21 09:00 01/08/21 09:07 Diazepam 5 Mg Tablet PO 5 mg TID EDER Administration Ferrous Sulfate 324 mg 01/03/21 09:00 01/08/21 09:07 Ferrous Sulfate 324 Mg Tablet. PO 324 mg DAILY EDER Administration Gabapentin 800 mg 01/03/21 09:00 01/08/21 09:07 Gabapentin 400 Mg Capsule PO 800 mg TID EDER Administration Hydroxyzine HCl 50 mg 01/03/21 08:02 Hydroxyzine Hcl 50 Mg Tablet PO BID PRN anxiety Lamotrigine 50 mg 01/03/21 09:00 01/08/21 09:07 Lamotrigine 25 Mg Tablet PO 50 mg DAILY EDER Administration Loratadine 10 mg 01/03/21 09:00 01/08/21 09:07 Loratadine 10 Mg Tablet PO 10 mg DAILY EDER Administration Methadone HCl 90 mg 01/03/21 09:00 01/08/21 09:07 Methadone Hcl 1 Mg/0.1 Ml Oral.Conc PO 90 mg DAILY EDER Administration Morphine Sulfate 2 mg 01/03/21 16:15 01/08/21 09:21 Morphine Sulfate 2 Mg/Ml Cartridge IVPUSH 2 mg Q4H PRN Administration pain Multivitamins/Vitamin C 1 tab 01/03/21 09:00 01/08/21 09:07 Multivitamin Tablet PO 1 tab DAILY EDER Administration Pharmacy Consult 1 each 01/03/21 09:50 Consult Rx Perform Med Rec MISCELLANE ONCE PRN Consult order Propranolol HCl 20 mg 01/03/21 08:02 Propranolol Hcl 20 Mg Tablet PO Q6H PRN Anxiety Protocol Senna 17.2 mg 01/03/21 00:48 Sennosides 8.6 Mg Tablet PO BEDTIME PRN Constipation Sodium Chloride 3 ml 01/03/21 08:00 01/08/21 09:06 0.9 % Sodium Chloride Flush 3 Ml Syringe IVFLUSH 3 ml QSHIFT EDER Administration Topiramate 200 mg 01/03/21 09:00 01/08/21 09:07 Topiramate 100 Mg Tablet PO 200 mg DAILY EDER Administration Labs CBC & Chem 7: 01/04/21 10:11 01/04/21 10:11 Assessment and Plan (1) Hypoglycemia: Status: Acute Assessment and Plan: 40F presented with hypoglycvemia and back pain awaiting auth for rehab placement hypoglycemia likely due to poor intake and poor glycogen reserve due to HCV liver disease resolved with increased intake no history of DM, not on antihyperglycemics back pain MRI unremarkable likely [facility] plan for STR at SNF once auth obtained, still pending polysubstance abuse methadone once verified HCV outpatient management bipolar continue mood stabilizers
[2021-01-08 14:12] LABS: Glucose Urine UA NEG (NEG); Leukocyte Esterase Urine NEG (NEG); Nitrite Urine NEG (NEG); Urine Blood NEG (NEG); Urine Ketones NEG (NEG); Urine Protein NEG (NEG-TRACE)
[2021-01-08 14:15] LABS: Appearance Urine CLEAR; Color Urine YELLOW
--- NOTE | 2021-01-08 16:16 | MHC.CM.PN ---
nurse cARE MANAGEMENT NOTE ELECTRONIC MEDICAL RECORD REVIEWED ALONG WITH CASE DISCUSSED WITH HOSPITALIST AND STAFF NURSE AND WITH PATIENT THIS MORNING SENT VIA [facility] CL[facility]ICAL UPDATES TO [facility] , ASKING IF THEY HAD RECEIVED INSURANCE AUTH YET (REQUESTED THAT THEY SEND IT ON THURSDAY) NO INSURANCE AVAILABILITY OVER WEEKEND AND HOLIDay) clinical updates forwarded to [facility] via [employer] at 9/19am over the next few hours with no response sent messages to them, telephone called to [facility] requested admission and had to leave message , obtained message from [facility], that they were in meetings (i requested that they go for ins auth, i requested level 1 secondary to (poysubstance abuse methadone and psych history,) [facility] responded that i only need less than 30 day order. reported to the hospitlaist that we were still waiting for insurance auth. requested rapid covid test health care analyst to follow up tomorrow .
[2021-01-08] MEDS: Acetaminophen 325 MG TABLET 650 MG PO (19:54)
[2021-01-09 04:00] VITALS: BP 113/69; PULSE 91; RESP 20; O2SAT 98
[2021-01-09] MEDS: Morphine Sulfate 2 MG/ML CARTRIDGE IVPUSH ×3 (04:07→14:22)
[2021-01-09] MEDS: Cyclobenzaprine HCl 10 MG TABLET PO ×2 (04:12→14:21)
[2021-01-09 07:08] VITALS: BP 119/64; PULSE 84; RESP 19; TEMP 36.3; O2SAT 98
[2021-01-09] MEDS: Topiramate 100 MG TABLET 200 MG PO (08:50)
[2021-01-09] MEDS: busPIRone HCl 10 MG TABLET 30 MG PO (08:53)
[2021-01-09] MEDS: Gabapentin 400 MG CAPSULE 800 MG PO ×2 (08:53→14:20)
[2021-01-09] MEDS: Ferrous Sulfate 324 MG TABLET.DR PO (08:54)
[2021-01-09] MEDS: lamoTRIgine 25 MG TABLET 50 MG PO (08:55)
[2021-01-09] MEDS: buPROPion HCl XL 300 MG TAB.ER.24H PO (08:55)
[2021-01-09] MEDS: Cyanocobalamin (Vitamin B-12) 1,000 MCG TABLET 1000 MCG PO (08:55)
[2021-01-09] MEDS: Aspirin 81 MG TAB.CHEW PO (08:55)
[2021-01-09] MEDS: Multivitamin TABLET 1 TAB PO (08:55)
[2021-01-09] MEDS: diazePAM 5 MG TABLET PO ×2 (08:55→14:21)
[2021-01-09] MEDS: Loratadine 10 MG TABLET PO (08:56)
[2021-01-09] MEDS: Heparin Sodium,Porcine Flush 50 UNITS, 0.9 % Sodium Chloride Flush 5 ML IVFLUSH ×2 (08:57→14:25)
[2021-01-09 11:37] VITALS: BP 125/72; PULSE 89; RESP 20; TEMP 36.7; O2SAT 98
--- NOTE | 2021-01-09 11:43 | MHC.RECOVRN ---
T/w met with pt in 384 after pt requested to speak with t/w. Pt concerned regarding placement. Pt is hoping to go to [place], states I'm really going to go this time. Pt was encouraged to call [facility] Taper Operator, Marcia, pt stated I will call her today. Pt understands that Taper Operator is also a resource that can be utilized. Pt denies current substance cravings. Pt worried about housing, encouraged to focus on one step at a time and the need to regain physical strength. Pt was given t/w card if further questions or concerns arise.
--- NOTE | 2021-01-09 13:54 | P.DS_ITS ---
DS: Providers Provider Date of Service: 01/09/21 Date of admission: 01/03/21 00:49 Primary care physician: Cici Corey MD DS: Diagnosis Discharge Diagnosis (1) Hypoglycemia: Status: Acute (2) Toxic metabolic encephalopathy: Status: Acute (3) Cocaine abuse: Status: Acute (4) Physical deconditioning: Status: Acute (5) Back pain: Status: Acute DS: Medications Discharge Medications Home Medications: Home Medications Medication Instructions Recorded Confirmed aspirin 80 mg PO DAILY 12/04/20 01/03/21 bupropion HCl 150 mg PO BID 12/04/20 01/03/21 buspirone 30 mg PO BID 12/04/20 01/03/21 cyanocobalamin (vitamin B-12) 1,000 mcg PO DAILY 12/04/20 01/03/21 [Vitamin B-12] diclofenac sodium 50 mg PO TID PRN 12/04/20 01/03/21 ferrous sulfate 325 mg PO DAILY 12/04/20 01/03/21 hydroxyzine pamoate 1 cap PO BID PRN 12/04/20 01/03/21 lamotrigine 50 mg PO DAILY 12/04/20 01/03/21 loratadine 10 mg PO DAILY 12/04/20 01/03/21 multivitamin [Daily-Angle] 1 tab PO DAILY 12/04/20 01/03/21 propranolol 20 mg PO Q6H PRN 12/04/20 01/03/21 topiramate 200 mg PO DAILY 12/04/20 01/03/21 gabapentin 800 mg PO TID 12/07/20 01/03/21 methadone 90 mg PO DAILY 12/23/20 01/03/21 diazepam 1 tab PO TID 01/02/21 01/03/21 zolpidem 5 mg PO BEDTIME PRN 01/02/21 01/03/21 DS: Summary Hospital Course Hospital Course: 40-year-old female with a past medical history of polysubstance abuse, anxiety, depression, bipolar, PTSD, opiate dependence on methadone, history of hep C presented to the hospital with a chief complaint of back pain. Patient is a poor historian. Most of the history of prior from the records and ER vision. Reportedly patient complained of upper back pain for the past couple days. Also mentioned that she is not compliant with her home medications. Patient denies any chest pain palpitations lightheadedness dizziness. Denies any fever chills cough. Denies any urinary difficulty or stool incontinence. Review of all other systems is negative except mentioned above ER course: Per ER physician patient exam was nonfocal. CT of the thoracic and lumbar spine showed no acute findings. Patient was afebrile. No leukocytosis. Less concern for infection. Subsequently patient noted to have hypoglycemia 50.; patient was given crackers, dextrose IV; patient fingerstick glucose improved but subsequently dropped again to 90s. Requested an admission for observation. Hospital course Patient was admitted to the hospital for reported back pain and episode of hypoglycemia. Hypoglycemia believed to be secondary to poor oral intake and advanced liver disease. Resolved with increased oral intake as the patient has no history of diabetes and not on any antihyperglycemic trucks. An MRI was to evaluate her back pain which was unremarkable for any acute findings. Likely musculoskeletal in nature. She was evaluated by Physical therapy with a plan for short-term rehab. Patient on methadone for history of polysubstance abuse Will need less than 30 days in rehab hopefully. Time Spent with Patient Time attestation: Total time spent providing and/or coordinating discharge services: Discharge coordination time: Greater than 30 minutes Physical Exam Vital Signs: Vital Signs: Last Vital Signs Temp 98.0 F 01/09/21 11:37 Pulse 89 01/09/21 11:37 Resp 20 01/09/21 11:37 BP 125/72 01/09/21 11:37 Pulse Ox 98 01/09/21 11:37 Body Mass Index 28.8 Const: Other: Constitutional : Alert, oriented, not in distress Neck : Normal inspection, Supple Cardiovascular : RRR, S1 S2, no lower extremity edema Respiratory : Good bilateral air entry, no crackles, wheezes or rhonchi Gastrointestinal: soft, lax, Normal bowel sounds, Non tender Skin : Warm/Dry, No rash Neurological : Alert & oriented x3, No focal deficit DS: Data Data Completed and Pending Labs on day of discharge: Laboratory Results - last 24 hr 01/08/21 13:58 Urine Color YELLOW Urine Appearance CLEAR Urine pH 7.0 Ur Specific [place] 1.010 Urine Protein NEG Urine Glucose (UA) NEG Urine Ketones NEG Urine Blood NEG Urine Nitrite NEG Ur Leukocyte Esterase NEG Discharge Plan Discharge Patient Disposition: er [facility] Discharge Diagnosis: hypoglycemia Referrals: Cici Corey MD [Primary Care Provider] - 1 Week Discharge Medications: Continued methadone 10 mg/mL Concentrate 90 mg PO DAILY RF: 0 multivitamin [Daily-Angle] Tablet 1 tab PO DAILY RF: 0 bupropion HCl 150 mg tablet sustained-release 12 hr 150 mg PO BID RF: 0 cyanocobalamin (vitamin B-12) [Vitamin B-12] 1,000 mcg tablet 1,000 mcg PO DAILY RF: 0 hydroxyzine pamoate 50 mg capsule 1 cap PO BID PRN (Reason: anxiety) RF: 0 lamotrigine 25 mg tablet 50 mg PO DAILY RF: 0 buspirone 30 mg tablet 30 mg PO BID RF: 0 ferrous sulfate 325 mg (65 mg iron) tablet 325 mg PO DAILY RF: 0 aspirin 81 mg tablet,chewable 80 mg PO DAILY RF: 0 topiramate 200 mg tablet 200 mg PO DAILY RF: 0 diclofenac sodium 50 mg tablet,delayed release (DR/EC) 50 mg PO TID PRN (Reason: Anxiety) RF: 0 propranolol 20 mg tablet 20 mg PO Q6H PRN (Reason: Anxiety) RF: 0 loratadine 10 mg tablet 10 mg PO DAILY RF: 0 gabapentin 800 mg tablet 800 mg PO TID RF: 0 zolpidem 5 mg tablet 5 mg PO BEDTIME PRN (Reason: Insomnia) RF: 0 diazepam 5 mg tablet 1 tab PO TID RF: 0 Discharge Orders: Discharge Order (Routine); Ordered 01/09/21 Ordered By: Nathan Gomes Activity on Discharge: As tolerated Stand Alone Forms: Patient Portal Discharge page Care Plan Goals: recovery Health Concerns: back pain Plan of Treatment: avoid drugs, rehab Assessment: see above
[2021-01-09 14:23] LABS: COVID-19 Test Negative (Negative)
--- NOTE | 2021-01-09 15:14 | MHC.CM.PN ---
nurse palliative care nurse practitioner note electronic medical record reviewed along with case discussed with staff nurse and hospitalist called to ,c [facility] spoke with virgilio she reported that there is a new process now there are no longer liason assigned to hospitals there is one central fax number for all facilities to [facility] for insurance auth and then the request is distributed across the board, called to [facility] spoke with savannah and she reported she probably would not here from them until around 3pm. ysabel discussed with staff zachary and bilingual patient support caseworker and hospitlist , informed patient we were still waiting for insurance authorization , she spoke with panfilo march recovery nurse , and also called to her [facility] caser in [place], i also called [place] to report mirna she would be discharged today at 3;30-49pm to [place] , and transported via [facility]
[2021-01-09 15:18] VITALS: BP 118/72; PULSE 91; RESP 16; TEMP 36.8; O2SAT 97
== END 2021-01-09 16:08 | disposition skilled nursing facility (03) | DRG 420 ==
LOC: HO.ED 01-03 00:43 → HO.EDOVER 01-03 03:11 → HO.S3 01-03 19:49
PROVIDERS: Emergency Medicine Emergency Medical Services; Internal Medicine; Admitting Provider Hospitalist; Emergency Provider Emergency Medicine; PCP Internal Medicine; Visit Provider Student in an Organized Health Care Education/Training Program
DX: E11.649 Type 2 diabetes mellitus with hypoglycemia without coma (principal); G92 Toxic encephalopathy; F11.20 Opioid dependence, uncomplicated; F17.210 Nicotine dependence, cigarettes, uncomplicated; F31.9 Bipolar disorder, unspecified; F43.10 Post-traumatic stress disorder, unspecified; F14.10 Cocaine abuse, uncomplicated; Z71.6 Tobacco abuse counseling; K76.9 Liver disease, unspecified; M54.9 Dorsalgia, unspecified; Z20.822 Contact with and (suspected) exposure to COVID-19; B19.20 Unspecified viral hepatitis C without hepatic coma; Z91.14 Patient's other noncompliance with medication regimen; Z88.2 Allergy status to sulfonamides; Z79.4 Long term (current) use of insulin; Z79.82 Long term (current) use of aspirin; Z79.899 Other long term (current) drug therapy
CPT/HCPCS: 36410; 36415; 72129; 72132; 72158; 76937; 80048; 80076; 80307; 81003; 81025; 82550; 82947; 83036; 85025; 87635; 96374; 96375; 97162; 97530; 99285; A9585; J1642; J2270; Q9967

== ENCOUNTER 2021-01-31 17:52 | Emergency (ER) | payer OTHER, SELFPAY ==
[2021-01-31 18:10] VITALS: BP 118/70; BP 138/66; PULSE 110; PULSE 80; RESP 16; O2SAT 100; O2SAT 95; BMI 28.2
--- NOTE | 2021-01-31 18:47 | ED.OVERDOSE ---
HPI - Overdose General Chief Complaint: Overdose Stated Complaint: overdose/heroin/valium/flexerol Time Seen by Provider: 01/31/21 18:46 Source: patient and EMS Mode of arrival: EMS Limitations: no limitations History of Present Illness HPI Narrative: found unresponsive after overdosing on heroine. EMS gave 2mg of narcan intranasally. She was just trying to get high MD complaint: accidental overdose Onset (ago): hour(s) Related Data Home Medications Medication Instructions Recorded Confirmed aspirin 80 mg PO DAILY 12/04/20 01/03/21 bupropion HCl 150 mg PO BID 12/04/20 01/03/21 buspirone 30 mg PO BID 12/04/20 01/03/21 cyanocobalamin (vitamin B-12) 1,000 mcg PO DAILY 12/04/20 01/03/21 [Vitamin B-12] diclofenac sodium 50 mg PO TID PRN 12/04/20 01/03/21 ferrous sulfate 325 mg PO DAILY 12/04/20 01/03/21 hydroxyzine pamoate 1 cap PO BID PRN 12/04/20 01/03/21 lamotrigine 50 mg PO DAILY 12/04/20 01/03/21 loratadine 10 mg PO DAILY 12/04/20 01/03/21 multivitamin [Daily-Angle] 1 tab PO DAILY 12/04/20 01/03/21 propranolol 20 mg PO Q6H PRN 12/04/20 01/03/21 topiramate 200 mg PO DAILY 12/04/20 01/03/21 gabapentin 800 mg PO TID 12/07/20 01/03/21 methadone 90 mg PO DAILY 12/23/20 01/03/21 diazepam 1 tab PO TID 01/02/21 01/03/21 zolpidem 5 mg PO BEDTIME PRN 01/02/21 01/03/21 Allergies Allergy/AdvReac Type Severity Reaction Status Date / Time azithromycin [AZITHROMYCIN] Allergy Unknown UNK Verified 08/24/20 16:06 erythromycin base Allergy Unknown RASH Verified 08/24/20 16:06 [ERYTHROMYCIN BASE] olanzapine [From ZYPREXA] Allergy Unknown PEDAL EDEMA Verified 08/24/20 16:06 quetiapine [From SEROQUEL] Allergy Unknown THROAT Verified 08/24/20 16:06 SWELLING risperidone [From RISPERDAL] Allergy Unknown TWITCHING Verified 08/24/20 16:06 shellfish derived Allergy Unknown VOMITING Verified 08/24/20 16:06 [SHELLFISH DERIVED] sulfamethoxazole Allergy Unknown ITCHING Verified 08/24/20 16:06 [From BACTRIM] trimethoprim [From BACTRIM] Allergy Unknown ITCHING Verified 08/24/20 16:06 arithromiosin Allergy Unknown Unknown Uncoded 08/24/20 16:06 gluten Allergy Unknown Unknown Uncoded 08/24/20 16:06 sea food Allergy Unknown Unknown Uncoded 08/24/20 16:06 Sulfacet-R Allergy Unknown Unknown Uncoded 08/24/20 16:06 SEAFOOD AdvReac Unknown VOMIT Uncoded 06/07/20 15:47 Review of Systems Constitutional: Constitutional: Reports no additional constitutional complaints Eyes: Eyes: Reports no additional eye complaints ENT: Denies dizziness Cardiovascular: Cardiovascular: Reports no additional cardiovascular complaints Respiratory: Respiratory: Reports as per HPI Gastrointestinal: Gastrointestinal: Reports no additional gastrointestinal complaints Genitourinary: Genitourinary: Reports no additional female genitourinary complaints Musculoskeletal: Musculoskeletal: Reports no additional musculoskeletal complaints Integumentary/Breasts: Skin/Breast: Denies rash Neurologic: Reports system reviewed and no additional complaints, except as documented, Denies dizziness and Denies Sensory deficit (Neuro) Psychiatric: Psychiatric: Denies anxiety PMFSH Past Medical History Medical History No known health problems Social History Social History Household Members: Friend(s) Housing: Unknown / Unable to assess Alcohol intake: never Smoking Status: Current every day smoker Cigarettes Per Day: 4 Second Hand Smoke Exposure: No Substance Use Type: Crack/Cocaine and Opiates Advance Directives: No Advance Directives Information Provided: Yes service: No Current occupational status: unemployed Physical Exam Vital Signs: Vital Signs: Last Vital Signs Pulse 80 01/31/21 18:10 Resp 16 01/31/21 18:10 BP 138/66 01/31/21 18:10 Pulse Ox 100 01/31/21 18:10 Body Mass Index 28.2 Const: Other: female looking older than stated age, intoxicated, sleepy Nutritional Appearance: average body habitus Limitations: altered mental status HENMT: Head: Yes normal to inspection Ears: external ears normal General nose exam: Normal external nose present Mouth: Normal oral and palatal mucosa present and oropharynx normal Throat: Yes posterior oropharynx normal Eyes: General: appearance normal, both eyes and all related structures Neck: Other: supple Neck: Yes normal visual inspection Chest: Chest palpation & inspection: normal inspection of the chest Resp: Auscultation: clear to auscultation bilaterally Cardio: Jugular venous distension: no JVD Rate: regular rate Rhythm: regular rhythm Heart sounds: S1 normal heart sound present and S2 normal heart sound present GI: Inspection: Yes normal to inspection Palpation (GI): Soft to palpation, nontender and No hepatosplenomegaly present Auscultation: normal bowel sounds : General: Yes no CVA tenderness Back/Spine/Pelvis: Back: no CVA tenderness Skin: General skin exam: no rashes or lesions noted Neuro: Cranial nerves: Yes CN's II-XII intact bilaterally Motor exam (neuro): 5/5 motor strength present throughout Sensory Exam: No Sensory deficit (Neuro) Extrem: General: Yes normal to inspection Psych: Appearance: grossly normal Course Course Course Narrative: patient arousing to verbal stimuli will allow her to wake up. will sign out to Dr. Mohr Reevaluation(s) Reevaluation #1: Patient placed in physician observation at 11:30pm The indication for observation is that the patient needs more time to sober up. At this time the patient is lethargic but arousable to verbal stimuli lungs clear, CV RRR, abd nontender, neuro moving all extemities Time: 23:25 MDM - Overdose MDM Narrative Medical decision making narrative: patient with polysubstance abuse will allow her to sober up and dc home Discharge Plan Discharge Prescriptions: No Action methadone 10 mg/mL Concentrate 90 mg PO DAILY RF: 0 multivitamin [Daily-Angle] Tablet 1 tab PO DAILY RF: 0 bupropion HCl 150 mg tablet sustained-release 12 hr 150 mg PO BID RF: 0 cyanocobalamin (vitamin B-12) [Vitamin B-12] 1,000 mcg tablet 1,000 mcg PO DAILY RF: 0 hydroxyzine pamoate 50 mg capsule 1 cap PO BID PRN (Reason: anxiety) RF: 0 lamotrigine 25 mg tablet 50 mg PO DAILY RF: 0 buspirone 30 mg tablet 30 mg PO BID RF: 0 ferrous sulfate 325 mg (65 mg iron) tablet 325 mg PO DAILY RF: 0 aspirin 81 mg tablet,chewable 80 mg PO DAILY RF: 0 topiramate 200 mg tablet 200 mg PO DAILY RF: 0 diclofenac sodium 50 mg tablet,delayed release (DR/EC) 50 mg PO TID PRN (Reason: Anxiety) RF: 0 propranolol 20 mg tablet 20 mg PO Q6H PRN (Reason: Anxiety) RF: 0 loratadine 10 mg tablet 10 mg PO DAILY RF: 0 gabapentin 800 mg tablet 800 mg PO TID RF: 0 zolpidem 5 mg tablet 5 mg PO BEDTIME PRN (Reason: Insomnia) RF: 0 diazepam 5 mg tablet 1 tab PO TID RF: 0
--- NOTE | 2021-01-31 20:31 | MHC.RECOVSUP ---
? Reason for consult Overdose o Current location: ED22[facility] o Identified substance use concern: Heroin - Overdose - Seeking ATS (detox) - Support ? Intervention: ? Plan: o Patient to follow up with [facility] after discharge ? Additional information: Was not able to get a straight answer from Patient
--- NOTE | 2021-01-31 21:20 | PC.NURSE ---
PT IN NAD AND RESTING IN STRETCHER AT THIS TIME.
== END 2021-02-01 07:15 | disposition home or self-care (01) ==
PROVIDERS: Emergency Provider Emergency Medicine; PCP Internal Medicine
DX: T40.1X1A Poisoning by heroin, accidental (unintentional), initial encounter (principal); R40.4 Transient alteration of awareness; Y92.9 Unspecified place or not applicable; F11.20 Opioid dependence, uncomplicated; F14.10 Cocaine abuse, uncomplicated; F17.200 Nicotine dependence, unspecified, uncomplicated
CPT/HCPCS: 99283; 99285

== ENCOUNTER 2021-02-01 08:47 | Emergency (ER) | payer OTHER, SELFPAY ==
[2021-02-01 09:19] VITALS: BP 109/70; PULSE 84; RESP 18; TEMP 35.9; O2SAT 97; BMI 25.8
--- NOTE | 2021-02-01 09:36 | ED_ITS ---
HPI - General Adult General Chief complaint: General Medical Stated complaint: DETOX Time Seen by Provider: 02/01/21 09:06 Source: patient Mode of arrival: ambulatory Limitations: no limitations History of Present Illness HPI narrative: Patient presents to ED seeking detox for heroin and crack. Patient denies any physical complaints. Related Data Home Medications Medication Instructions Recorded Confirmed aspirin 80 mg PO DAILY 12/04/20 01/03/21 bupropion HCl 150 mg PO BID 12/04/20 01/03/21 buspirone 30 mg PO BID 12/04/20 01/03/21 cyanocobalamin (vitamin B-12) 1,000 mcg PO DAILY 12/04/20 01/03/21 [Vitamin B-12] diclofenac sodium 50 mg PO TID PRN 12/04/20 01/03/21 ferrous sulfate 325 mg PO DAILY 12/04/20 01/03/21 hydroxyzine pamoate 1 cap PO BID PRN 12/04/20 01/03/21 lamotrigine 50 mg PO DAILY 12/04/20 01/03/21 loratadine 10 mg PO DAILY 12/04/20 01/03/21 multivitamin [Daily-Angle] 1 tab PO DAILY 12/04/20 01/03/21 propranolol 20 mg PO Q6H PRN 12/04/20 01/03/21 topiramate 200 mg PO DAILY 12/04/20 01/03/21 gabapentin 800 mg PO TID 12/07/20 01/03/21 methadone 90 mg PO DAILY 12/23/20 01/03/21 diazepam 1 tab PO TID 01/02/21 01/03/21 zolpidem 5 mg PO BEDTIME PRN 01/02/21 01/03/21 Previous Rx's Medication Instructions Recorded bupropion HCl 150 mg PO BID 7 Days #21 tab 02/01/21 buspirone 30 mg PO BID 7 Days #14 tab 02/01/21 gabapentin 800 mg PO TID 7 Days #21 tab 02/01/21 hydroxyzine pamoate 25 mg PO BID PRN 7 Days #14 cap 02/01/21 lamotrigine 50 mg PO DAILY 14 Days #28 tab 02/01/21 propranolol 20 mg PO Q6H PRN 7 Days #28 tab 02/01/21 topiramate 200 mg PO DAILY 7 Days #7 tab 02/01/21 Allergies Allergy/AdvReac Type Severity Reaction Status Date / Time azithromycin [AZITHROMYCIN] Allergy Unknown UNK Verified 08/24/20 16:06 erythromycin base Allergy Unknown RASH Verified 08/24/20 16:06 [ERYTHROMYCIN BASE] olanzapine [From ZYPREXA] Allergy Unknown PEDAL EDEMA Verified 08/24/20 16:06 quetiapine [From SEROQUEL] Allergy Unknown THROAT Verified 08/24/20 16:06 SWELLING risperidone [From RISPERDAL] Allergy Unknown TWITCHING Verified 08/24/20 16:06 shellfish derived Allergy Unknown VOMITING Verified 08/24/20 16:06 [SHELLFISH DERIVED] sulfamethoxazole Allergy Unknown ITCHING Verified 08/24/20 16:06 [From BACTRIM] trimethoprim [From BACTRIM] Allergy Unknown ITCHING Verified 08/24/20 16:06 arithromiosin Allergy Unknown Unknown Uncoded 08/24/20 16:06 gluten Allergy Unknown Unknown Uncoded 08/24/20 16:06 sea food Allergy Unknown Unknown Uncoded 08/24/20 16:06 Sulfacet-R Allergy Unknown Unknown Uncoded 08/24/20 16:06 SEAFOOD AdvReac Unknown VOMIT Uncoded 06/07/20 15:47 Review of Systems Review of Systems: Yes all other systems are reviewed and are negative Constitutional: Constitutional: Reports as per HPI and Reports no additional constitutional complaints Eyes: Eyes: Reports as per HPI and Reports no additional eye complaints ENT: Reports system reviewed and no additional complaints, except as documented and Reports as per HPI Cardiovascular: Cardiovascular: Reports as per HPI and Reports no additional cardiovascular complaints Respiratory: Respiratory: Reports as per HPI and Reports no additional respiratory complaints Gastrointestinal: Gastrointestinal: Reports as per HPI and Reports no additional gastrointestinal complaints Genitourinary: Genitourinary: Reports no additional female genitourinary complaints and Reports as per HPI Musculoskeletal: Musculoskeletal: Reports no additional musculoskeletal complaints and Reports as per HPI Neurologic: Reports system reviewed and no additional complaints, except as documented and Reports as per HPI Psychiatric: Psychiatric: Reports no additional psychiatric complaints and Reports as per HPI PMF Past Medical History Medical History No known health problems Social History Social History Household Members: Friend(s) Housing: Unknown / Unable to assess Alcohol intake: never Smoking Status: Current every day smoker Cigarettes Per Day: 4 Second Hand Smoke Exposure: No Substance Use Type: Crack/Cocaine and Opiates Advance Directives: No Advance Directives Information Provided: No Patient : No service: No Current occupational status: unemployed Physical Exam Vital Signs: Vital Signs: Last Vital Signs Temp 96.7 F L 02/01/21 09:19 Pulse 84 02/01/21 09:19 Resp 18 02/01/21 09:19 BP 109/70 02/01/21 09:19 Pulse Ox 97 02/01/21 09:19 Body Mass Index 25.8 Const: General: cooperative, healthy appearing, comfortable, no acute distress, well developed, alert, awake and Physically active Orientation/cons ciousness: patient oriented x3 HENMT: Head: Yes normal to inspection, Yes No palpable skull fracture present, Yes normocephalic and Yes atraumatic Eyes: General: appearance normal, both eyes and all related structures Neck: Neck: Yes normal visual inspection, Yes full ROM, Yes no lymphadenopathy, Yes no meningeal signs, Yes trachea midline, Yes supple and No tender Chest: Chest palpation & inspection: normal inspection of the chest and normal palpation of entire chest wall Resp: Effort & Inspection: normal respiratory effort and able to speak in complete sentences Auscultation: clear to auscultation bilaterally Cardio: Jugular venous distension: no JVD Heart sounds: S1 normal heart sound present and S2 normal heart sound present GI: Inspection: Yes normal to inspection and No abdominal wall ecchymosis Palpation (GI): Soft to palpation, not firm, nontender, no guarding and not rigid : General: No CVA tenderness and Yes no CVA tenderness Back/Spine/Pelvis: Back: no CVA tenderness, No CVA tenderness and No back tenderness Skin: General skin exam: no rashes or lesions noted and elasticity normal Neuro: General: patient oriented x3, no meningeal signs and CN's II-XI intact bilaterally Cranial nerves: Yes CN's II-XII intact bilaterally Extrem: General: Yes normal to inspection and Yes full ROM Psych: Appearance: grossly normal, well kempt and not disheveled Course Course Course Narrative: Spoke with disaster recovery consultant Reagan who states he was speak with patient. Reevaluation(s) Reevaluation #1: Reagan states patient got accepted into a detox program. Patient agreeable to go to detox program facility. 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 Reagan assistant golf coach recommended short course of psych meds as per requesting by detox facility. Medical Decision Making MDM Narrative Medical decision making narrative: Opiate abuse. Discharge Plan Discharge Clinical Impression: Opioid dependence, Cocaine abuse Patient Disposition: Home, Self-Care Instructions: Cocaine Abuse (ED), Opioid Use Disorder (ED) Additional Instructions: Return to the ED immediately for any suicidal/homicidal ideation, auditory/visual hallucinations, physical complaints, or any other concerning symptoms Prescriptions: New bupropion HCl 100 mg tablet 150 mg PO BID 7 Days Qty: 21 RF: 0 buspirone 30 mg tablet 30 mg PO BID 7 Days Qty: 14 RF: 0 hydroxyzine pamoate 25 mg capsule 25 mg PO BID PRN (Reason: anxiety) 7 Days Qty: 14 RF: 0 lamotrigine 25 mg tablet 50 mg PO DAILY 14 Days Qty: 28 RF: 0 propranolol 20 mg tablet 20 mg PO Q6H PRN (Reason: hypertension) 7 Days Qty: 28 RF: 0 topiramate 200 mg tablet 200 mg PO DAILY 7 Days Qty: 7 RF: 0 gabapentin 800 mg tablet 800 mg PO TID 7 Days Qty: 21 RF: 0 No Action methadone 10 mg/mL Concentrate 90 mg PO DAILY RF: 0 multivitamin [Daily-Angle] Tablet 1 tab PO DAILY RF: 0 bupropion HCl 150 mg tablet sustained-release 12 hr 150 mg PO BID RF: 0 cyanocobalamin (vitamin B-12) [Vitamin B-12] 1,000 mcg tablet 1,000 mcg PO DAILY RF: 0 hydroxyzine pamoate 50 mg capsule 1 cap PO BID PRN (Reason: anxiety) RF: 0 lamotrigine 25 mg tablet 50 mg PO DAILY RF: 0 buspirone 30 mg tablet 30 mg PO BID RF: 0 ferrous sulfate 325 mg (65 mg iron) tablet 325 mg PO DAILY RF: 0 aspirin 81 mg tablet,chewable 80 mg PO DAILY RF: 0 topiramate 200 mg tablet 200 mg PO DAILY RF: 0 diclofenac sodium 50 mg tablet,delayed release (DR/EC) 50 mg PO TID PRN (Reason: Anxiety) RF: 0 propranolol 20 mg tablet 20 mg PO Q6H PRN (Reason: Anxiety) RF: 0 loratadine 10 mg tablet 10 mg PO DAILY RF: 0 gabapentin 800 mg tablet 800 mg PO TID RF: 0 zolpidem 5 mg tablet 5 mg PO BEDTIME PRN (Reason: Insomnia) RF: 0 diazepam 5 mg tablet 1 tab PO TID RF: 0 Interventions: ED Discharge Assessment Last Done: 02/01/21 13:21 Discharge Date/Time: 02/01/21 13:22 Print Language: Guinean
--- NOTE | 2021-02-01 09:56 | MHC.RECOVSUP ---
Recovery Support note: Patient is a 41 year old Ugandan speaking Female who presented to [facility] seeking detox. Patient presented to [facility] on 01/31 after an accidental overdose. Patient was medically cleared and discharged on 02/01. Patient remained in the waiting room after discharge, stating that she wanted detox. Patient was readmitted to the ED for assistance with detox placement. Patient reports she has been using heroin and cocaine IV daily. Patient reports she is willing to go anywhere for treatment. Patient denies SI/HI and also denies AH/VH. Patient reports she is not on any medications at this time. Patient will be referred for ATS.
--- NOTE | 2021-02-01 13:36 | MHC.RECOVSUP ---
Recovery Support note: Patient completed intake with [facility] ATS and was accepted for admission so long as patient came with her psychiatric medications. ED provider wrote prescription for 7 day supply. Patient expressed concern regarding how she will get back to the area once she completes the program. Encouraged her to reach back out to this ad copy writer or the CARE Team for assistance via Ly[employer]. Patient acknowledged. Patient collected her belongings from [facility] and was transported to [facility] and then [facility] via [employer].
--- NOTE | 2021-02-01 14:06 | MHC.RECOVSUP ---
Recovery Support note: This racebook writer received a call from [facility] stating that they cannot find patient. Patient is not in the waiting room or outside the hospital. This racebook writer will attempt to contact patient with the number listed in the EMR.
== END 2021-02-01 13:22 | disposition home or self-care (01) ==
PROVIDERS: Emergency Provider Emergency Medicine; PCP Internal Medicine
DX: F11.20 Opioid dependence, uncomplicated (principal); F14.20 Cocaine dependence, uncomplicated; Z71.51 Drug abuse counseling and surveillance of drug abuser; F17.210 Nicotine dependence, cigarettes, uncomplicated; Z71.6 Tobacco abuse counseling; Z79.899 Other long term (current) drug therapy
CPT/HCPCS: 99283

== ENCOUNTER 2021-03-30 17:02 | Emergency (ER) | payer OTHER, SELFPAY ==
[2021-03-30 17:10] VITALS: BP 103/60; BP 124/72; PULSE 60; PULSE 79; RESP 16; TEMP 35.9; O2SAT 100; O2SAT 98; BMI 22.6
--- NOTE | 2021-03-30 17:10 | ED_ITS ---
HPI - General Adult General Chief complaint: Overdose Stated complaint: drugs Time Seen by Provider: 03/30/21 17:06 Source: patient and EMS Mode of arrival: EMS Limitations: no limitations History of Present Illness HPI narrative: Patient comes emergency room via EMS for potential overdose. Patient was found ?unresponsive? by bystanders who called EMS. By the time that EMS arrived, patient was awake, alert, sitting in a porch. Patient did not get Narcan and either by bystanders or EMS. Patient states she used heroin this morning, also used benzos prior to arrival. Patient complaining of a possible UTI Related Data Home Medications Medication Instructions Recorded Confirmed aspirin 80 mg PO DAILY 12/04/20 01/03/21 bupropion HCl 150 mg PO BID 12/04/20 01/03/21 buspirone 30 mg PO BID 12/04/20 01/03/21 cyanocobalamin (vitamin B-12) 1,000 mcg PO DAILY 12/04/20 01/03/21 [Vitamin B-12] diclofenac sodium 50 mg PO TID PRN 12/04/20 01/03/21 ferrous sulfate 325 mg PO DAILY 12/04/20 01/03/21 hydroxyzine pamoate 1 cap PO BID PRN 12/04/20 01/03/21 lamotrigine 50 mg PO DAILY 12/04/20 01/03/21 loratadine 10 mg PO DAILY 12/04/20 01/03/21 multivitamin [Daily-Angle] 1 tab PO DAILY 12/04/20 01/03/21 propranolol 20 mg PO Q6H PRN 12/04/20 01/03/21 topiramate 200 mg PO DAILY 12/04/20 01/03/21 gabapentin 800 mg PO TID 12/07/20 01/03/21 methadone 90 mg PO DAILY 12/23/20 01/03/21 diazepam 1 tab PO TID 01/02/21 01/03/21 zolpidem 5 mg PO BEDTIME PRN 01/02/21 01/03/21 Previous Rx's Medication Instructions Recorded bupropion HCl 150 mg PO BID 7 Days #21 tab 02/01/21 buspirone 30 mg PO BID 7 Days #14 tab 02/01/21 gabapentin 800 mg PO TID 7 Days #21 tab 02/01/21 hydroxyzine pamoate 25 mg PO BID PRN 7 Days #14 cap 05/14/21 lamotrigine 50 mg PO DAILY 14 Days #28 tab 02/01/21 propranolol 20 mg PO Q6H PRN 7 Days #28 tab 02/01/21 topiramate 200 mg PO DAILY 7 Days #7 tab 02/01/21 Allergies Allergy/AdvReac Type Severity Reaction Status Date / Time azithromycin [AZITHROMYCIN] Allergy Unknown UNK Verified 08/24/20 16:06 erythromycin base Allergy Unknown RASH Verified 08/24/20 16:06 [ERYTHROMYCIN BASE] olanzapine [From ZYPREXA] Allergy Unknown PEDAL EDEMA Verified 08/24/20 16:06 quetiapine [From SEROQUEL] Allergy Unknown THROAT Verified 08/24/20 16:06 SWELLING risperidone [From RISPERDAL] Allergy Unknown TWITCHING Verified 08/24/20 16:06 shellfish derived Allergy Unknown VOMITING Verified 08/24/20 16:06 [SHELLFISH DERIVED] sulfamethoxazole Allergy Unknown ITCHING Verified 08/24/20 16:06 [From BACTRIM] trimethoprim [From BACTRIM] Allergy Unknown ITCHING Verified 08/24/20 16:06 arithromiosin Allergy Unknown Unknown Uncoded 08/24/20 16:06 gluten Allergy Unknown Unknown Uncoded 08/24/20 16:06 sea food Allergy Unknown Unknown Uncoded 08/24/20 16:06 Sulfacet-R Allergy Unknown Unknown Uncoded 08/24/20 16:06 SEAFOOD AdvReac Unknown VOMIT Uncoded 06/07/20 15:47 Review of Systems Review of Systems: Constitutional : No Weight loss, No Fever, No Chills, No Night Sweats, No Fatigue, No Malaise ENT/Mouth : No Hearing loss, No Ear Pain, No Nasal Congestion, No Sinus Pain, No Hoarseness, No sore throat, No Rhinorrhea, No Swallowing Difficulty Eyes: No Eye Pain, No Swelling, No Redness, No Foreign Body, No Discharge, No Vision Changes Cardiovascular : No Chest Pain, No SOB, No Dyspnea on Exertion, No Orthopnea, No Edema, No Palpitations Respiratory : No Cough, No Sputum, No Wheezing, No Smoke Exposure, No Dyspnea Gastrointestinal : No Nausea, No Vomiting, No Diarrhea, No Constipation, No abdominal Pain, No Hematochezia, No Melena Genitourinary : no irregular bleeding, complaining of Dysuria, No Urinary Frequency, No Hematuria, No Urinary Incontinence, No Urgency, No Flank Pain, No Urinary Flow Changes, No Hesitancy Musculoskeletal : No joint pain, No Myalgias, No Joint Swelling Skin : Multiple ecchymoses in various stages of healing Neuro : No Weakness, No Numbness, No Paresthesias, No Loss of Consciousness, No Dizziness, No Headache Psych : No Anxiety/Panic, No Depression, No SI/HI/AH/VH, No Social Issues, Heme/Lymph: No Bruising, No Bleeding,No Lymphadenopathy Endocrine : No Polyuria, No Polydipsia, No Temperature Intolerance [facility] Past Medical History Medical History (Updated 03/30/21 @ 18:19 by Dalila Parr MD) No known health problems Substance abuse Social History Social History Household Members: Friend(s) Housing: Unknown / Unable to assess Do you presently have visiting nurse or other home services: No Unable to assess alcohol history related to: Unknown Alcohol intake: never Cigarettes Per Day: 4 Second Hand Smoke Exposure: No Substance Use Type: Crack/Cocaine and Opiates Advance Directives: No Advance Directives Information Provided: No Patient : No service: No Current occupational status: unemployed Physical Exam Vital Signs: Vital Signs: Last Vital Signs Temp 96.7 F L 03/30/21 17:10 Pulse 79 03/30/21 17:10 Resp 16 03/30/21 17:10 BP 103/60 03/30/21 17:10 Pulse Ox 98 03/30/21 17:10 Body Mass Index 22.6 Appearance: Alert. Oriented X3. No acute distress. Somnolent but easily arousable Eyes: Pupils equal, round and reactive to light. ENT: Pharynx normal. Neck: Normal inspection. Neck supple. No lymph nodes noted. No crepitus CVS: Normal heart rate and rhythm. Pulses normal. Normal S1 and S2 Respiratory: No respiratory distress. Breath sounds normal. No Wheezing. No rales Abdomen: Soft and nontender. No rigidity. No distention. good BS x4 Skin: Skin warm and dry. Multiple ecchymoses in various stages of healing Extremities: No lower extremity edema. No Lacerations. No Rash Neuro: Oriented X 3. No motor deficit. No sensory deficit. Moving all extermities. No slurred speech, somnolent, patient is ambulatory. Course Course Course Narrative: Patient remains somnolent but easily arousable. Metabolized to freedom. Patient did not receive Narcan today Patient complaining of UTI symptoms, patient has been unable to provide a urine sample. Urinalysis pending Sign-out given to Dr. Mohr Discharge Plan Discharge Clinical Impression: Drug overdose Prescriptions: No Action methadone 10 mg/mL Concentrate 90 mg PO DAILY RF: 0 bupropion HCl 100 mg tablet 150 mg PO BID 7 Days Qty: 21 RF: 0 buspirone 30 mg tablet 30 mg PO BID 7 Days Qty: 14 RF: 0 hydroxyzine pamoate 25 mg capsule 25 mg PO BID PRN (Reason: anxiety) 7 Days Qty: 14 RF: 0 lamotrigine 25 mg tablet 50 mg PO DAILY 14 Days Qty: 28 RF: 0 propranolol 20 mg tablet 20 mg PO Q6H PRN (Reason: hypertension) 7 Days Qty: 28 RF: 0 topiramate 200 mg tablet 200 mg PO DAILY 7 Days Qty: 7 RF: 0 gabapentin 800 mg tablet 800 mg PO TID 7 Days Qty: 21 RF: 0 multivitamin [Daily-Angle] Tablet 1 tab PO DAILY RF: 0 bupropion HCl 150 mg tablet sustained-release 12 hr 150 mg PO BID RF: 0 cyanocobalamin (vitamin B-12) [Vitamin B-12] 1,000 mcg tablet 1,000 mcg PO DAILY RF: 0 hydroxyzine pamoate 50 mg capsule 1 cap PO BID PRN (Reason: anxiety) RF: 0 lamotrigine 25 mg tablet 50 mg PO DAILY RF: 0 buspirone 30 mg tablet 30 mg PO BID RF: 0 ferrous sulfate 325 mg (65 mg iron) tablet 325 mg PO DAILY RF: 0 aspirin 81 mg tablet,chewable 80 mg PO DAILY RF: 0 topiramate 200 mg tablet 200 mg PO DAILY RF: 0 diclofenac sodium 50 mg tablet,delayed release (DR/EC) 50 mg PO TID PRN (Reason: Anxiety) RF: 0 propranolol 20 mg tablet 20 mg PO Q6H PRN (Reason: Anxiety) RF: 0 loratadine 10 mg tablet 10 mg PO DAILY RF: 0 gabapentin 800 mg tablet 800 mg PO TID RF: 0 zolpidem 5 mg tablet 5 mg PO BEDTIME PRN (Reason: Insomnia) RF: 0 diazepam 5 mg tablet 1 tab PO TID RF: 0
--- NOTE | 2021-03-30 18:38 | PC.NURSE ---
clothing and belongings in
[2021-03-30 19:03] VITALS: PULSE 87; RESP 12; O2SAT 97
[2021-03-30 22:00] VITALS: BP 105/59; PULSE 87; RESP 20; O2SAT 94
[2021-03-31] VITALS: PULSE 81; RESP 16; O2SAT 96
[2021-03-31 02:00] VITALS: BP 115/58; PULSE 71; RESP 14; O2SAT 99
--- NOTE | 2021-03-31 02:32 | PC.NURSE ---
PATIENT SLEEPING, NO DISTRESS NOTED. EASILY AROUSABLE TO VOICE. PATIENT NOT STAYING AWAKE LONG ENOUGH TO GET UP USE THE RESTROOM FOR A SAMPLE.
--- NOTE | 2021-03-31 02:44 | PC.NURSE ---
PATIENT CALLING OUT OF A BEDPAN. PATIENT HAS PLACED HERSELF N A CARE BAG WITH SUPER ABSORBER WITHOUT THE BEDPAN. UNABLE TO COLLECT A URINE SAMPLE DUE TO ABSORBENT MATERIAL COLLECTING ALL THE URINE. PATIENT THEN TAKEN OFF AND CLEANED FROM MATERIAL COVERING THE BED AND SOILING THE BED. LINEN CHANGED PATIENT CLEANED UP. PATIENT ASKING FOR ICE CREAM, ZAINAB CRACKERS, AND KEAGAN CORINNA.
[2021-03-31 04:00] VITALS: PULSE 75; RESP 16; O2SAT 99
--- NOTE | 2021-03-31 05:33 | PC.NURSE ---
patient awoken to multiple times, awakes to voice swatting the nurse and then returning to sleep, sternal rub has a better effect. patient waking up asking for a mihir ming and ice cream. falling asleep while eating ice cream. awoken multiple times by multiple staff. asking provider to reevaluate patient. unable to keep patient awake long enough to ambulate her to the bathroom.
== END 2021-03-31 06:11 | disposition home or self-care (01) ==
PROVIDERS: Emergency Provider Emergency Medicine; PCP Internal Medicine
DX: T40.1X1A Poisoning by heroin, accidental (unintentional), initial encounter (principal); F19.10 Other psychoactive substance abuse, uncomplicated; R40.0 Somnolence; Y92.89 Other specified places as the place of occurrence of the external cause
CPT/HCPCS: 99285

== ENCOUNTER 2021-04-03 09:21 | Inpatient (IN) | payer OTHER, SELFPAY ==
--- NOTE | ~2021-04-03 | CT_ITS ---
EXAMINATION: CT LUMBAR SPINE WITHOUT CONTRAST CLINICAL INFORMATION: Lumbar spine CT without contrast COMPARISON: Previous CT December 2020 and MRI December 2020 TECHNIQUE: Axial images through the lumbar spine without contrast. Sagittal and coronal reconstructions on the technologist workstation were performed. This CT examination was performed using dose optimization techniques as appropriate, variously including the following: *Automated exposure control *Adjustment of mA and/or kV according to patient size (this includes techniques or standardized protocols for targeted exams where dose is matched to indication/reason for exam; i.e. extremities or head) *Use of iterative reconstruction technique DLP; 653 mGy-cm FINDINGS: Bone alignment is normal. No fracture or dislocation is seen. Disc spaces are normal. There is mild degenerative spondylosis at L3-L4 and L4-L5. Facet joints are normal. There is stool throughout the colon suggestive of constipation. Paraspinal soft tissues are otherwise normal. CT/CT lumbar spine wo con IMPRESSION: No fracture or dislocation seen.
--- NOTE | ~2021-04-03 | XR_ITS ---
EXAMINATION: XR CHEST CLINICAL INFORMATION: Substance abuse COMPARISON: Previous chest x-ray most recent 12/22/2020 TECHNIQUE: Frontal view of the chest was obtained. FINDINGS: No significant abnormality is noted involving the heart, lungs, mediastinum, bony thorax or soft tissues. XR/XR chest 1V IMPRESSION: Unremarkable examination.
--- NOTE | ~2021-04-03 | CT_ITS ---
EXAMINATION: CT FOREARM WITH CONTRAST, RIGHT CLINICAL INFORMATION: Rule out abscess versus cellulitis COMPARISON: None TECHNIQUE: Axial images through the right forearm following IV contrast. Patient received 85 mL Omnipaque 350 intravenous contrast. Sagittal and coronal reconstructions on the technologist workstation were performed. This CT examination was performed using dose optimization techniques as appropriate, variously including the following: *Automated exposure control *Adjustment of mA and/or kV according to patient size (this includes techniques or standardized protocols for targeted exams where dose is matched to indication/reason for exam; i.e. extremities or head) *Use of iterative reconstruction technique DLP: 427 mGy-cm FINDINGS: Exam is limited due to motion artifact. There is diffuse skin thickening and infiltration of the subcutaneous fat suggestive of cellulitis. No focal fluid collection/abscess is seen. No fracture, dislocation or bone lesion is seen. No x-ray evidence of osteomyelitis is seen. CT/CT forearm RT w con IMPRESSION: Limited exam due to motion artifact. Diffuse skin thickening and stranding of the subcutaneous fat suggestive of cellulitis. No abscess seen.
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
[2021-04-03 09:57] VITALS: BP 105/49; BP 116/82; PULSE 76; PULSE 84; RESP 18; TEMP 36.4; O2SAT 100; BMI 24.2
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
[2021-04-03 10:42] LABS: MANUAL DIFF FLAG NO
[2021-04-03 10:46] LABS: Basophils Percent Auto 0.3 % (0-2); Eosinophils Absolute Auto 0.1 X10*3/uL (0.0-0.4); Eosinophils Percent Auto 1.3 % (0-4); Hematocrit 38.1 % (37-47); Hemoglobin 12.7 g/dl (12.0-16.0); Imm Gran Abs Auto 0.02 X10*3/uL (0.00-0.03); Imm Gran Pct Auto 0.3 % (0.0-0.4); Lymphocytes Absolute Auto 1.5 X10*3/uL (1.2-4.9); Lymphocytes Percent Auto 21.5 % (20-40); Mean Corpuscular HGB Conc 33.3 g/dl (31.0-35.0); Mean Corpuscular Hemoglobin 30.5 pg (27.0-33.0); Mean Corpuscular Volume 91.4 fL (80-98); Mean Platelet Volume 9.5 fL (9.4-12.3); Monocytes Absolute Auto 0.6 X10*3/uL (0.1-1.2); Monocytes Percent Auto 8.8 % (2-11); Neutrophils Absolute Auto 4.7 X10*3/uL (2.0-8.3); Neutrophils Percent Auto 67.8 % (45-73); Platelet Count 192 X10*3/uL (160-400); Red Blood Count 4.17 X10*6/uL (4.20-5.50); Red Cell Distribution Width 12.9 % (11.0-16.0); White Blood Count 6.9 X10*3/uL (4.8-10.8)
[2021-04-03 10:49] LABS: Glucose Urine UA NEG (NEG); Leukocyte Esterase Urine 3+ (NEG); Nitrite Urine POS (NEG); UACC Culture Trigger YES; Urine Blood TRACE (NEG); Urine Ketones NEG (NEG); Urine Protein NEG (NEG-TRACE)
[2021-04-03 10:51] LABS: Appearance Urine CLOUDY; Color Urine YELLOW
[2021-04-03 10:53] LABS: UPreg QC Valid YES; Urine Pregnancy NEGATIVE (NEGATIVE)
[2021-04-03] MEDS: 0.9 % Sodium Chloride 1,000 ML 999 ML IVCONT ×2 (10:58→11:21)
[2021-04-03 10:59] LABS: Bacteria Urine 4+ /LPF; RBC Urine 0-2 /HPF (0); Squamous Epithelial Cell Urine 1+ /LPF
[2021-04-03 11:01] LABS: INTERNATIONAL NORM RATIO 1.1 (0.9-1.1); Prothrombin Time 12.7 SEC (9.9-13.0)
[2021-04-03 11:04] LABS: Partial Thromboplastin Time 46.6 SEC (24.1-38.0)
[2021-04-03 11:05] LABS: COVID-19 Test Negative (Negative)
[2021-04-03 11:08] LABS: Lactic Acid 1.2 mmol/L (0.5-2.0)
[2021-04-03 11:12] LABS: Ethanol < 10 mg/dL
[2021-04-03 11:13] LABS: Amphetamine Screen Urine Not Detected (Not Detect); Barbiturates, Urine Not Detected (Not Detect); Benzodiazepines Screen Urine POSITIVE (Not Detect); Cannabinoid Screen Urine Not Detected (Not Detect); Cocaine Screen Urine POSITIVE (Not Detect); Opiate Screen Urine POSITIVE (Not Detect); Phencyclidine Screen Urine Not Detected (Not Detect)
[2021-04-03 11:16] LABS: Acetaminophen LAB < 1 mcg/mL (<30); Salicylate < 5.0 mg/dL (15-30)
[2021-04-03 11:17] LABS: Alanine Aminotransferase 30 U/L (0-31); Albumin Level 4.1 g/dL (3.5-5.0); Alkaline Phosphatase 124 U/L (39-117); Anion Gap 15 (12-20); Aspartate Amino Transferase 51 U/L (5-31); Bilirubin Direct 0.9 mg/dL (0.0-0.5); Bilirubin Total 1.4 mg/dL (0.0-1.0); Blood Urea Nitrogen 3 mg/dL (9-16); Calcium 9.2 mg/dL (8.4-10.2); Carbon Dioxide 30 mmol/L (22-29); Chloride 95 mmol/L (96-108); Creatinine Clr Calc Pharmacy 90.5; Estimated Glomerular Filt Rate > 60; Glucose Random 105 mg/dL (60-115); Lipase 8 U/L (8-78); Magnesium 1.8 mg/dL (1.6-2.6); Potassium 3.5 mmol/L (3.3-5.1); Sodium 136 mmol/L (135-145); Total Protein 7.2 g/dL (6.5-8.0)
[2021-04-03] MEDS: Piperacillin Sodium/Tazobactam 3.375 GM in 0.9 % Sodium Chloride 50 ML IV (11:21)
[2021-04-03] MEDS: iohexoL 350 MG/ML 100 ML INFUS..BTL IV (12:06)
--- NOTE | 2021-04-03 13:43 | PHA.MEDREC ---
Pharmacy Consult ? Medication Reconciliation Pharmacy has completed the medication reconciliation. The discharge summary from December was used as the patient as been obtunded since early this morning. We will try to check in with the patient later today.
[2021-04-03 14:05] LABS: CT PCR NOT DETECTED (Not Detect.); NG PCR NOT DETECTED (Not Detect.)
--- NOTE | 2021-04-03 14:51 | PC.NURSE ---
unable to administer IV antibiotics. Pt has no IV access and is very difficult IV access due to chronic longstanding drug use. Pt asleep at this time.
[2021-04-03 15:05] VITALS: BP 109/53; PULSE 82; RESP 16; TEMP 39; O2SAT 100
[2021-04-03] MEDS: vancomycin HCL 750 MG in 0.9 % Sodium Chloride 250 ML 265 MG IV (15:40)
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
[2021-04-03] MEDS: Enoxaparin Sodium 40 MG/0.4 ML SYRINGE SUBCUT (16:57)
[2021-04-03 16:59] VITALS: BP 96/43; PULSE 95; RESP 16; O2SAT 94
[2021-04-03 17:52] VITALS: BP 96/43; PULSE 83; RESP 16; TEMP 37.4; O2SAT 95
[2021-04-03] MEDS: cefTRIAXone sodium 1 GM in 0.9 % Sodium Chloride 50 ML IV (17:55)
--- NOTE | 2021-04-03 18:40 | MHC.CM.PN ---
CM attempted to meet with pt , but pt sleeping and has sitter. Will interview when awake. Information obtained from medical record and previous interviews. Pt has long standing poly-substance abuse, mental health concerns, crisis evaluations. Pt has had 6 ED visits this year for OD, crisis, AMS and poly-substance abuse. Last hospitalized on 12/22/20. Pt is homeless and stays with various friends. Pt has no DME and does not use any services. HCP/mother Sarita Brennan ([phone]) and is on file. On last admission, pt requested CM not contact her mother. Will wait until able to speak with patient before contacting her mother. Unsure at this time about D/C plan, as patient had stated feeling suicidal and Crisis evaluation is pending. Recovery support will see pt when awake. Transportation arranged by patient. CM will follow for d/c needs.
--- NOTE | 2021-04-03 19:20 | PC.NURSE ---
Called Med/Surg unit to give RN to RN report. RN unavailable at this time, stated that they will call ED back when available.
[2021-04-03 20:08] VITALS: BP 111/54; PULSE 78; RESP 14; O2SAT 97
--- NOTE | 2021-04-03 20:30 | PC.NURSE ---
Med/Surg unit called again for RN to RN report but remains unavailable. errand runner (Danitza Alexander) aware.
--- NOTE | 2021-04-03 20:40 | PC.NURSE ---
Called Med/Surg unit again to give RN to RN report. RN remains unavailable, staff cytotechnologist aware.
--- NOTE | 2021-04-03 20:59 | PC.NURSE ---
RN to RN report given to APOLONIA Ryan. Preparing for admission to room 360.
[2021-04-03 21:35] VITALS: BP 105/61; PULSE 76; RESP 18; TEMP 36.3; O2SAT 100
[2021-04-04] MEDS: 0.9 % Sodium Chloride Flush 3 ML SYRINGE IVFLUSH ×3 (00:40→16:02)
[2021-04-04] MEDS: oxyCODONE HCl Immed Release 5 MG TABLET PO ×4 (02:28→23:42)
[2021-04-04 08:00] VITALS: RESP 18
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
[2021-04-04] MEDS: vancomycin HCL 1,000 MG in 0.9 % Sodium Chloride 250 ML 270 MG IV ×2 (09:11→19:53)
[2021-04-04] MEDS: Acetaminophen 325 MG TABLET 650 MG PO ×2 (09:31→16:02)
--- NOTE | 2021-04-04 09:49 | P.CONOP_ITS ---
History of Present Illness HPI Consult date: 04/04/21 Chief complaint: Left Arm Cellulitis Review of Systems Review of Systems: Yes all other systems are reviewed and are negative PMFSH Past Medical History Medical History (Updated 04/03/21 @ 16:31 by Gustavo Her MD) Opioid dependence Substance abuse Functional capacity: independent ambulation Family History Family history: reviewed and not pertinent Social History Social History Household Members: None Housing: Other Housing Other:: patient states she is homeless Do you presently have visiting nurse or other home services: No Unable to assess alcohol history related to: Unknown Alcohol intake: current Alcohol intake frequency: 3 or more drinks per day Patient Tobacco Use Status: Current everyday Tobacco user Tobacco use type: Cigarette Cigarette Packs Per Day: 0 Cigarettes Per Day: 4 Years Smoked: 20 Smoked in Last 30 Days: Yes Patient Interested in Nicotine Replacement: Yes Patient Given Instructions on How to Stop Smoking: No (refuses) Second Hand Smoke Exposure: No Use of substances other than those prescribed or required for medical reasons: Yes Substance Use Type: Crack/Cocaine and Heroin Substance Use Frequency: Daily Last Used Substance: Just Prior to Admission Last Used Substance Other:: last night Currently Displaying Signs/Symptoms of Drug Intoxication Withdrawal: No Any prior treatment program specific to substance use: No Have you been hit, kicked, punched, or otherwise hurt by someone within the past year? If so, by whom?: No (patient is not answering) Do you feel safe in your current relationship?: Yes Is there a partner from a previous relationship who is making you feel unsafe now?: No Are you made to feel afraid or neglected: No Advance Directives: Yes Advance Directives Information Provided: Yes Advance Directives on File: No Advance Directives Date on File: 04/03/21 Do you have thoughts of harming others: None Do you have a plan to hurt others: No Plan Recently lost weight without trying: No Nutrition Risks: No Nutritional Risk Patient : No : No service: No Current occupational status: unemployed Meds Allergies Allergy/AdvReac Type Severity Reaction Status Date / Time azithromycin [AZITHROMYCIN] Allergy Unknown UNK Verified 08/24/20 16:06 erythromycin base Allergy Unknown RASH Verified 08/24/20 16:06 [ERYTHROMYCIN BASE] olanzapine [From ZYPREXA] Allergy Unknown PEDAL EDEMA Verified 08/24/20 16:06 quetiapine [From SEROQUEL] Allergy Unknown THROAT Verified 08/24/20 16:06 SWELLING risperidone [From RISPERDAL] Allergy Unknown TWITCHING Verified 08/24/20 16:06 shellfish derived Allergy Unknown VOMITING Verified 08/24/20 16:06 [SHELLFISH DERIVED] sulfamethoxazole Allergy Unknown ITCHING Verified 08/24/20 16:06 [From BACTRIM] trimethoprim [From BACTRIM] Allergy Unknown ITCHING Verified 08/24/20 16:06 arithromiosin Allergy Unknown Unknown Uncoded 08/24/20 16:06 gluten Allergy Unknown Unknown Uncoded 08/24/20 16:06 sea food Allergy Unknown Unknown Uncoded 08/24/20 16:06 Sulfacet-R Allergy Unknown Unknown Uncoded 08/24/20 16:06 SEAFOOD AdvReac Unknown VOMIT Uncoded 06/07/20 15:47 Active Medications: Current Medications Generic Name Dose Route Start Last Admin Trade Name Freq PRN Reason Stop Dose Admin Acetaminophen 650 mg 04/03/21 15:23 Acetaminophen Supp 650 Mg Supp.Rect MO Q6H PRN Fever >100.4 Acetaminophen 650 mg 04/03/21 16:39 04/04/21 09:31 Acetaminophen 325 Mg Tablet PO 650 mg Q6H PRN Administration Pain, Mild (Pain Scale 1-3) Clonidine HCl 0.1 mg 04/03/21 16:18 Clonidine Hcl 0.1 Mg Tablet PO TID PRN Opiate Withdrawal Protocol Enoxaparin Sodium 40 mg 04/03/21 16:45 04/03/21 16:57 Enoxaparin Sodium 40 Mg/0.4 Ml Syringe SUBCUT 40 mg Q24H EDER Administration Ceftriaxone Sodium 1 gm/ 50 mls @ 100 mls/hr 04/03/21 18:00 04/03/21 18:39 Sodium Chloride IV Infused Q24H EDER Infusion Vancomycin HCl 1,000 mg/ 270 mls @ 270 mls/hr 04/04/21 08:00 04/04/21 09:11 Sodium Chloride IV 270 mls/hr Q12H EDER Administration Nicotine Polacrilex 2 mg 04/03/21 22:17 Nicotine Polacrilex 2 Mg Gum BUCCAL Q1H PRN Nicotine Cravings Oxycodone HCl 5 mg 04/03/21 16:07 04/04/21 09:31 Oxycodone Hcl Immed Release 5 Mg Tablet PO 5 mg Q6H PRN Administration Pain, Severe (Pain Scale 7-10) Pharmacy Consult 1 each 04/03/21 09:44 Consult Rx Perform Med Rec MISCELLANE ONCE PRN Consult order Pharmacy Consult 1 each 04/04/21 08:09 Consult Rx Vancomycin Dosing MISCELLANE DAILY PRN Consult order Sodium Chloride 3 ml 04/04/21 00:00 04/04/21 09:18 0.9 % Sodium Chloride Flush 3 Ml Syringe IVFLUSH 3 ml QSHIFT EDER Administration Home Medications Medication Instructions Recorded Confirmed Last Taken Type aspirin 80 mg PO DAILY 12/04/20 04/03/21 Unknown History bupropion HCl 150 mg PO BID 12/04/20 04/03/21 Unknown History cyanocobalamin (vitamin B-12) 1,000 mcg PO DAILY 12/04/20 04/03/21 Unknown History [Vitamin B-12] diclofenac sodium 50 mg PO TID PRN 12/04/20 04/03/21 Unknown History ferrous sulfate 325 mg PO DAILY 12/04/20 04/03/21 Unknown History hydroxyzine pamoate 1 cap PO BID PRN 12/04/20 04/03/21 Unknown History loratadine 10 mg PO DAILY 12/04/20 04/03/21 Unknown History multivitamin [Daily-Angle] 1 tab PO DAILY 12/04/20 04/03/21 Unknown History methadone 90 mg PO DAILY 12/23/20 04/03/21 12/20/20 History diazepam 1 tab PO TID 01/02/21 04/03/21 Unknown History zolpidem 5 mg PO BEDTIME PRN 01/02/21 04/03/21 Unknown History Physical Exam Vital Signs: Vital Signs: Last Vital Signs Temp 97.3 F 04/03/21 21:35 Pulse 76 04/03/21 21:35 Resp 18 04/03/21 21:35 BP 105/61 04/03/21 21:35 Pulse Ox 100 04/03/21 21:35 Body Mass Index 24.2 Const: General: cooperative and no acute distress Orientation/consciousness: patient oriented x3 Resp: Effort & Inspection: normal respiratory effort and able to speak in complete sentences Cardio: Peripheral pulses: Peripheral pulses 2+ throughout Skin: General skin exam: no rashes or lesions noted Neuro: General: patient oriented x3 Extrem: Other: Right forearm edema and erythema circumferential cellulitis with induration. No areas of fluctuance. Scabbing in multiple areas from prior IVDA. Full ROM of the elbow, wrist, and hand. Sensation intact. Radial pulse intact. Results Labs Result Diagrams: 04/03/21 10:27 04/03/21 10:27 Labs: Abnormal lab results 04/03/21 04/03/21 04/03/21 Range/Units 10:27 10: 10:28 RBC 4.17 L (4.20-5.50) X10*6/uL APTT 46.6 H (24.1-38.0) SEC Chloride 95 L (96-108) mmol/L Carbon Dioxide 30 H (22-29) mmol/L BUN 3 L (9-16) mg/dL Total Bilirubin 1.4 H (0.0-1.0) mg/dL Direct Bilirubin 0.9 H (0.0-0.5) mg/dL AST 51 H (5-31) U/L Alkaline Phosphatase 124 H (39-117) U/L Total Creatine Kinase 375 H D (26-140) U/L Urine Nitrite (NEG) Ur Leukocyte Esterase (NEG) Urine WBC (0-4) /HPF Salicylates (15-30) mg/dL Urine Opiates Screen (Not Detect) U Benzodiazepines Scrn (Not Detect) Urine Cocaine Screen (Not Detect) 04/03/21 04/03/21 04/03/21 Range/Units 10: 10: 10:28 RBC (4.20-5.50) X10*6/uL APTT (24.1-38.0) SEC Chloride (96-108) mmol/L Carbon Dioxide (22-29) mmol/L BUN (9-16) mg/dL Total Bilirubin (0.0-1.0) mg/dL Direct Bilirubin (0.0-0.5) mg/dL AST (5-31) U/L Alkaline Phosphatase (39-117) U/L Total Creatine Kinase (26-140) U/L Urine Nitrite POS H (NEG) Ur Leukocyte Esterase 3+ H (NEG) Urine WBC 76-150 H (0-4) /HPF Salicylates < 5.0 L (15-30) mg/dL Urine Opiates Screen POSITIVE H (Not Detect) U Benzodiazepines Scrn POSITIVE H (Not Detect) Urine Cocaine Screen POSITIVE H (Not Detect) H & H 04/03/21 Range/Units 10:27 Hgb 12.7 (12.0-16.0) g/dl Hct 38.1 (37-47) % Coagulation 04/03/21 Range/Units 10:28 INR 1.1 (0.9-1.1) All other labs normal. Assessment and Plan (1) Cellulitis: Qualifiers: Laterality: right Site of cellulitis of extremity: upper extremity Status: Acute Ms. Sebastian is a 41 yo female who presented to the ED on 04/03/21 via EMS. She has a prior history of IVDA and admits to using cocaine, heroin, fentanyl. She states she developed an area of redness on the right forearm after injecting about 1 week prior. She was started on Vanco and Zosyn by medicine yesterday. CT scan negative for abscess and suggestive of Cellulitis. Case reviewed with Dr. Toribio miles and awaiting her plan of care. Procedures Date of Service Date of Service: 04/04/21
--- NOTE | 2021-04-04 13:14 | MHC.CM.PN ---
[facility] CM UR note. Patient not meeting all criteria for INPT. The case was discussed with the Hospitalist. Due to the severity of infection, the pt requires INPT level of care.
--- NOTE | 2021-04-04 13:41 | MHC.CM.PN ---
PER PHYSICIAN ROUNDS, PATIENT WILL BE HERE FOR CONTINUED IV ABX. CASE MANAGEMENT AWAITING DC NEEDS.
[2021-04-04 15:53] VITALS: BP 120/72; PULSE 73; RESP 20; TEMP 36.3; O2SAT 99
--- NOTE | 2021-04-04 16:00 | MHC.RECOVRN ---
T/w met with pt to discuss substance use/withdrawal symptoms. Pt has slept most of the day, pt awake sitting in bed at this time. Pt states I just am sick. Everything hurts. Nauseous, diarrhea, all of it. Pt had previously been on methadone through [facility] in [place], last dose 90 mg on an unknown date. Pt had then been incarcerated for one month and received 20 mg methadone while there. Since release, pt has not received methadone. Pt reports using IV heroin and cocaine. Pt would like to restart methadone. Case discussed with Liset Brambila APRN. Will continue to follow.
[2021-04-04] MEDS: Enoxaparin Sodium 40 MG/0.4 ML SYRINGE SUBCUT (16:05)
[2021-04-04] MEDS: cefTRIAXone sodium 1 GM in 0.9 % Sodium Chloride 50 ML IV (17:50)
[2021-04-04] MEDS: cloNIDine HCL 0.1 MG TABLET PO (19:57)
--- NOTE | 2021-04-04 22:32 | W.PM.IDCN ---
History of Present Illness Data of Consult Service Date: 04/04/21 Requesting physician: Gustavo Her Primary Care Provider: Unknown Physician HPI Reason for consult: right upper extremity redness and swelling She presents to hospital with right arm swelling and redness for a day She injects cocaine into arm She has had chills She has been on Methadone and Suboxone Review of Systems Review of Systems: Yes all other systems are reviewed and are negative PMFSH Past Medical History Medical History Opioid dependence Substance abuse Functional capacity: independent ambulation Family History Family history: reviewed and not pertinent Social History Social History Household Members: None Housing: Other Housing Other:: patient states she is homeless Do you presently have visiting nurse or other home services: No Unable to assess alcohol history related to: Unknown Alcohol intake: current Alcohol intake frequency: 3 or more drinks per day Patient Tobacco Use Status: Current everyday Tobacco user Tobacco use type: Cigarette Cigarette Packs Per Day: 0 Cigarettes Per Day: 4 Years Smoked: 20 Smoked in Last 30 Days: Yes Patient Interested in Nicotine Replacement: Yes Patient Given Instructions on How to Stop Smoking: No (refuses) Second Hand Smoke Exposure: No Use of substances other than those prescribed or required for medical reasons: Yes Substance Use Type: Crack/Cocaine and Heroin Substance Use Frequency: Daily Last Used Substance: Just Prior to Admission Last Used Substance Other:: last night Currently Displaying Signs/Symptoms of Drug Intoxication Withdrawal: No Any prior treatment program specific to substance use: No Have you been hit, kicked, punched, or otherwise hurt by someone within the past year? If so, by whom?: No (patient is not answering) Do you feel safe in your current relationship?: Yes Is there a partner from a previous relationship who is making you feel unsafe now?: No Are you made to feel afraid or neglected: No Advance Directives: Yes Advance Directives Information Provided: Yes Advance Directives on File: No Advance Directives Date on File: 04/03/21 Do you have thoughts of harming others: None Do you have a plan to hurt others: No Plan Recently lost weight without trying: No Nutrition Risks: No Nutritional Risk Patient : No : No service: No Current occupational status: unemployed Meds Allergies Allergy/AdvReac Type Severity Reaction Status Date / Time azithromycin [AZITHROMYCIN] Allergy Unknown UNK Verified 08/24/20 16:06 erythromycin base Allergy Unknown RASH Verified 08/24/20 16:06 [ERYTHROMYCIN BASE] olanzapine [From ZYPREXA] Allergy Unknown PEDAL EDEMA Verified 08/24/20 16:06 quetiapine [From SEROQUEL] Allergy Unknown THROAT Verified 08/24/20 16:06 SWELLING risperidone [From RISPERDAL] Allergy Unknown TWITCHING Verified 08/24/20 16:06 shellfish derived Allergy Unknown VOMITING Verified 08/24/20 16:06 [SHELLFISH DERIVED] sulfamethoxazole Allergy Unknown ITCHING Verified 08/24/20 16:06 [From BACTRIM] trimethoprim [From BACTRIM] Allergy Unknown ITCHING Verified 08/24/20 16:06 arithromiosin Allergy Unknown Unknown Uncoded 08/24/20 16:06 gluten Allergy Unknown Unknown Uncoded 08/24/20 16:06 sea food Allergy Unknown Unknown Uncoded 08/24/20 16:06 Sulfacet-R Allergy Unknown Unknown Uncoded 08/24/20 16:06 SEAFOOD AdvReac Unknown VOMIT Uncoded 06/07/20 15:47 Active Medications: Current Medications Generic Name Dose Route Start Last Admin Trade Name Freq PRN Reason Stop Dose Admin Acetaminophen 650 mg 04/03/21 15:23 Acetaminophen Supp 650 Mg Supp.Rect MN Q6H PRN Fever >100.4 Acetaminophen 650 mg 04/03/21 16:39 04/04/21 16:02 Acetaminophen 325 Mg Tablet PO 650 mg Q6H PRN Administration Pain, Mild (Pain Scale 1-3) Clonidine HCl 0.1 mg 04/03/21 16:18 04/04/21 19:57 Clonidine Hcl 0.1 Mg Tablet PO 0.1 mg TID PRN Administration Opiate Withdrawal Protocol Enoxaparin Sodium 40 mg 04/03/21 16:45 04/04/21 16:05 Enoxaparin Sodium 40 Mg/0.4 Ml Syringe SUBCUT 40 mg Q24H EDER Administration Ceftriaxone Sodium 1 gm/ 50 mls @ 100 mls/hr 04/03/21 18:00 04/04/21 18:29 Sodium Chloride IV Infused Q24H EDER Infusion Vancomycin HCl 1,000 mg/ 270 mls @ 270 mls/hr 04/04/21 08:00 04/04/21 21:20 Sodium Chloride IV Infused Q12H EDER Infusion Methadone HCl 20 mg 04/04/21 17:25 04/04/21 17:50 Methadone Hcl 1 Mg/0.1 Ml Oral.Conc PO 20 mg DAILY EDER Administration Methadone HCl 10 mg 04/04/21 22:28 Methadone Hcl 1 Mg/0.1 Ml Oral.Conc PO 04/04/21 22:29 ONCE ONE Nicotine Polacrilex 2 mg 04/03/21 22:17 Nicotine Polacrilex 2 Mg Gum BUCCAL Q1H PRN Nicotine Cravings Oxycodone HCl 5 mg 04/03/21 16:07 04/04/21 16:01 Oxycodone Hcl Immed Release 5 Mg Tablet PO 5 mg Q6H PRN Administration Pain, Severe (Pain Scale 7-10) Pharmacy Consult 1 each 04/03/21 09:44 Consult Rx Perform Med Rec MISCELLANE ONCE PRN Consult order Pharmacy Consult 1 each 04/04/21 08:09 Consult Rx Vancomycin Dosing MISCELLANE DAILY PRN Consult order Sodium Chloride 3 ml 04/04/21 00:00 04/04/21 16:02 0.9 % Sodium Chloride Flush 3 Ml Syringe IVFLUSH 3 ml QSHIFT EDER Administration Home Medications Medication Instructions Recorded Confirmed Last Taken Type aspirin 80 mg PO DAILY 12/04/20 04/03/21 Unknown History bupropion HCl 150 mg PO BID 12/04/20 04/03/21 Unknown History cyanocobalamin (vitamin B-12) 1,000 mcg PO DAILY 12/04/20 04/03/21 Unknown History [Vitamin B-12] diclofenac sodium 50 mg PO TID PRN 12/04/20 04/03/21 Unknown History ferrous sulfate 325 mg PO DAILY 12/04/20 04/03/21 Unknown History hydroxyzine pamoate 1 cap PO BID PRN 12/04/20 04/03/21 Unknown History loratadine 10 mg PO DAILY 12/04/20 04/03/21 Unknown History multivitamin [Daily-Angle] 1 tab PO DAILY 12/04/20 04/03/21 Unknown History methadone 90 mg PO DAILY 12/23/20 04/03/21 12/20/20 History diazepam 1 tab PO TID 01/02/21 04/03/21 Unknown History zolpidem 5 mg PO BEDTIME PRN 01/02/21 04/03/21 Unknown History Physical Exam Vital Signs: Vital Signs: Last Vital Signs Temp 97.3 F 04/04/21 15:53 Pulse 73 04/04/21 15:53 Resp 20 04/04/21 15:53 BP 120/72 04/04/21 15:53 Pulse Ox 99 04/04/21 15:53 Body Mass Index 24.2 Const: General: cooperative HENMT: Head: Yes normal to inspection Mouth: Normal oral and palatal mucosa present Eyes: General: appearance normal, both eyes and all related structures Resp: Effort & Inspection: normal respiratory effort Cardio: Rate: regular rate Rhythm: regular rhythm GI: Palpation (GI): Soft to palpation and nontender Skin: General skin exam: no rashes or lesions noted Extrem: Other: right arm swelling and purulence Results Labs CBC & Chem 7: 04/03/21 10:27 04/03/21 10:27 Microbiology Microbiology Results: Microbiology 04/03/21 10:28 Blood - Venous Blood Culture - Preliminary No growth after 24 hours. 04/03/21 10:28 Blood - Venous Blood Culture - Preliminary No growth after 24 hours. 04/03/21 Unknown Urine clean catch - Urine sheth top Urine Culture - Preliminary Gram negative anel Assessment and Plan (1) Cellulitis: Qualifiers: Laterality: right Site of cellulitis of extremity: upper extremity Status: Acute She has swelling and redness This is consistent with staph or strep Agree with Vancomycin Await cultures Check HIV and hepatitis C viral load (2) UTI (urinary tract infection): Status: Acute She has UTI Gram negative anel Continue Ceftriaxone
--- NOTE | 2021-04-04 23:09 | HO.ADDICT_ITS ---
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 [facility] via various medical and psychiatric admission currently not engaged in treatment Reports using about 5 bundles QD IV Requesting methadone--states she had most recently been on it when incarcerated Past Psychiatric History: extensive Medical Evaluation Reviewed: Yes Review of Systems Constitutional: Reports body ache(s), Reports chills, Reports difficulty sleeping, Reports lethargy and Reports malaise Gastrointestinal: Denies diarrhea, Reports nausea and Reports vomiting Musculoskeletal: Reports back pain, Reports myalgias and Reports arthralgias Psychiatric: Reports anxiety Diagnostics Vital Signs (24Hr): Vital Signs - 24 hr 04/04/21 08:00 04/04/21 15:53 Temperature 97.3 F Pulse Rate 73 Respiratory Rate 18 20 Blood Pressure 120/72 Pulse Oximetry 99 Body Mass Index 24.2 Labs Results: 04/03/21 10:27 04/03/21 10:27 Labs: Laboratory Results - last 48 hr 04/03/21 04/03/21 04/03/21 10:27 10:27 10:27 WBC 6.9 RBC 4.17 L Hgb 12.7 Hct 38.1 MCV 91.4 MCH 30.5 MCHC 33.3 RDW 12.9 Plt Count 192 MPV 9.5 Immature Gran % (Auto) 0.3 Neut % (Auto) 67.8 Lymph % (Auto) 21.5 [place] % (Auto) 8.8 Eos % (Auto) 1.3 Baso % (Auto) 0.3 Lymph # (Auto) 1.5 [place] # (Auto) 0.6 Eos # (Auto) 0.1 Baso # (Auto) 0.0 Abs Immat Gran (auto) 0.02 Absolute Neuts (auto) 4.7 Absolute Nucleated RBC 0.000 Nucleated RBC % (auto) 0.0 PT INR APTT Sodium 136 Potassium 3.5 Chloride 95 L Carbon Dioxide 30 H Anion Gap 15 BUN 3 L Creatinine 0.75 Estim Creat Clear Calc 90.5 Estimated GFR > 60 Random Glucose 105 Lactic Acid 1.2 Calcium 9.2 Magnesium 1.8 Total Bilirubin 1.4 H Direct Bilirubin 0.9 H AST 51 H ALT 30 Alkaline Phosphatase 124 H Total Creatine Kinase 375 H D Total Protein 7.2 Albumin 4.1 D Lipase 8 Urine Color Urine Appearance Urine pH Ur Specific [place] Urine Protein Urine Glucose (UA) Urine Ketones Urine Blood Urine Nitrite Ur Leukocyte Esterase Urine RBC Urine WBC Ur Squamous Epith Cells Urine Bacteria Urine Test Salicylates Urine Opiates Screen Acetaminophen Ur Barbiturates Screen Ur Phencyclidine Scrn Ur Amphetamines Screen U Benzodiazepines Scrn Urine Cocaine Screen U Marijuana (THC) Screen Ethyl Alcohol Chlam trachomat DNA PCR COVID-19 ([facility]ACK) COVID-19 Clin Com N.gonorrhoeae DNA (PCR) 04/03/21 04/03/21 04/03/21 10:28 10:28 10:28 WBC RBC Hgb Hct MCV MCH MCHC RDW Plt Count MPV Immature Gran % (Auto) Neut % (Auto) Lymph % (Auto) [place] % (Auto) Eos % (Auto) Baso % (Auto) Lymph # (Auto) [place] # (Auto) Eos # (Auto) Baso # (Auto) Abs Immat Gran (auto) Absolute Neuts (auto) Absolute Nucleated RBC Nucleated RBC % (auto) PT 12.7 INR 1.1 APTT 46.6 H Sodium Potassium Chloride Carbon Dioxide Anion Gap BUN Creatinine Estim Creat Clear Calc Estimated GFR Random Glucose Lactic Acid Calcium Magnesium Total Bilirubin Direct Bilirubin AST ALT Alkaline Phosphatase Total Creatine Kinase Total Protein Albumin Lipase Urine Color Urine Appearance Urine pH Ur Specific [place] Urine Protein Urine Glucose (UA) Urine Ketones Urine Blood Urine Nitrite Ur Leukocyte Esterase Urine RBC Urine WBC Ur Squamous Epith Cells Urine Bacteria Urine Test Salicylates < 5.0 L Urine Opiates Screen Acetaminophen < 1 Ur Barbiturates Screen Ur Phencyclidine Scrn Ur Amphetamines Screen U Benzodiazepines Scrn Urine Cocaine Screen U Marijuana (THC) Screen Ethyl Alcohol Chlam trachomat DNA PCR COVID-19 ([facility]ACK) Negative COVID-19 Clin Com See Note N.gonorrhoeae DNA (PCR) 04/03/21 04/03/21 04/03/21 10:28 10:28 10:28 WBC RBC Hgb Hct MCV MCH MCHC RDW Plt Count MPV Immature Gran % (Auto) Neut % (Auto) Lymph % (Auto) [place] % (Auto) Eos % (Auto) Baso % (Auto) Lymph # (Auto) [place] # (Auto) Eos # (Auto) Baso # (Auto) Abs Immat Gran (auto) Absolute Neuts (auto) Absolute Nucleated RBC Nucleated RBC % (auto) PT INR APTT Sodium Potassium Chloride Carbon Dioxide Anion Gap BUN Creatinine Estim Creat Clear Calc Estimated GFR Random Glucose Lactic Acid Calcium Magnesium Total Bilirubin Direct Bilirubin AST ALT Alkaline Phosphatase Total Creatine Kinase Total Protein Albumin Lipase Urine Color YELLOW Urine Appearance CLOUDY Urine pH 6.0 Ur Specific [place] 1.010 Urine Protein NEG Urine Glucose (UA) NEG Urine Ketones NEG Urine Blood TRACE Urine Nitrite POS H Ur Leukocyte Esterase 3+ H Urine RBC 0-2 Urine WBC 76-150 H Ur Squamous Epith Cells 1+ Urine Bacteria 4+ Urine Test NEGATIVE Salicylates Urine Opiates Screen Acetaminophen Ur Barbiturates Screen Ur Phencyclidine Scrn Ur Amphetamines Screen U Benzodiazepines Scrn Urine Cocaine Screen U Marijuana (THC) Screen Ethyl Alcohol < 10 Chlam trachomat DNA PCR COVID-19 (ZACK) COVID-19 Clin Com N.gonorrhoeae DNA (PCR) 04/03/21 04/03/21 10:28 10:39 WBC RBC Hgb Hct MCV MCH MCHC RDW Plt Count MPV Immature Gran % (Auto) Neut % (Auto) Lymph % (Auto) [place] % (Auto) Eos % (Auto) Baso % (Auto) Lymph # (Auto) [place] # (Auto) Eos # (Auto) Baso # (Auto) Abs Immat Gran (auto) Absolute Neuts (auto) Absolute Nucleated RBC Nucleated RBC % (auto) PT INR APTT Sodium Potassium Chloride Carbon Dioxide Anion Gap BUN Creatinine Estim Creat Clear Calc Estimated GFR Random Glucose Lactic Acid Calcium Magnesium Total Bilirubin Direct Bilirubin AST ALT Alkaline Phosphatase Total Creatine Kinase Total Protein Albumin Lipase Urine Color Urine Appearance Urine pH Ur Specific [place] Urine Protein Urine Glucose (UA) Urine Ketones Urine Blood Urine Nitrite Ur Leukocyte Esterase Urine RBC Urine WBC Ur Squamous Epith Cells Urine Bacteria Urine Test Salicylates Urine Opiates Screen POSITIVE H Acetaminophen Ur Barbiturates Screen Not Detected Ur Phencyclidine Scrn Not Detected Ur Amphetamines Screen Not Detected U Benzodiazepines Scrn POSITIVE H Urine Cocaine Screen POSITIVE H U Marijuana (THC) Screen Not Detected Ethyl Alcohol Chlam trachomat DNA PCR NOT DETECTED COVID-19 ([facility]ACK) COVID-19 Clin Com N.gonorrhoeae DNA (PCR) NOT DETECTED Imaging Radiology Impressions: ITS Impressions Chest X-Ray 04/03/21 09:44 IMPRESSION: Unremarkable examination. Forearm CT 04/03/21 09:49 IMPRESSION: Limited exam due to motion artifact. Diffuse skin thickening and stranding of the subcutaneous fat suggestive of cellulitis. No abscess seen. Cervical Spine CT 04/03/21 10:29 IMPRESSION: No fracture or dislocation seen. Head CT 04/03/21 10:29 IMPRESSION: No acute findings. Stable fatty lesion in the right prepontine cistern suggestive of a lipoma or epidermoid. Lumbar Spine CT 04/03/21 10:39 IMPRESSION: No fracture or dislocation seen. Thoracic Spine CT 04/03/21 10:39 IMPRESSION: No fracture or dislocation seen. Mental Status Exam Mental Status Exam Patient Appearance: Appropriate Patient Orientation: Person, Place, Time and Situation Level of Consciousness: Awake and Alert Patient Behavior: Appropriate Mood Description: Anxious Affect Description: Anxious Patient Cognition Impaired: No Ability to Follow Directions: Excellent Speech Pattern: Clear Thought Process: Goal Oriented Thought Content: positive for Intact Abnormal Motor Activity Signs and Symptoms: Restlessness Judgement: Fair Medications Medications Current Medications Generic Name Dose Route Start Last Admin Trade Name Freq PRN Reason Stop Dose Admin Acetaminophen 650 mg 04/03/21 15:23 Acetaminophen Supp 650 Mg Supp.Rect MD Q6H PRN Fever >100.4 Acetaminophen 650 mg 04/03/21 16:39 04/04/21 16:02 Acetaminophen 325 Mg Tablet PO 650 mg Q6H PRN Administration Pain, Mild (Pain Scale 1-3) Clonidine HCl 0.1 mg 04/03/21 16:18 04/04/21 19:57 Clonidine Hcl 0.1 Mg Tablet PO 0.1 mg TID PRN Administration Opiate Withdrawal Protocol Enoxaparin Sodium 40 mg 04/03/21 16:45 04/04/21 16:05 Enoxaparin Sodium 40 Mg/0.4 Ml Syringe SUBCUT 40 mg Q24H EDER Administration Ceftriaxone Sodium 1 gm/ 50 mls @ 100 mls/hr 04/03/21 18:00 04/04/21 18:29 Sodium Chloride IV Infused Q24H EDER Infusion Vancomycin HCl 1,000 mg/ 270 mls @ 270 mls/hr 04/04/21 08:00 04/04/21 21:20 Sodium Chloride IV Infused Q12H EDER Infusion Methadone HCl 20 mg 04/04/21 17:25 04/04/21 17:50 Methadone Hcl 1 Mg/0.1 Ml Oral.Conc PO 20 mg DAILY EDER Administration Nicotine Polacrilex 2 mg 04/03/21 22:17 Nicotine Polacrilex 2 Mg Gum BUCCAL Q1H PRN Nicotine Cravings Oxycodone HCl 5 mg 04/03/21 16:07 04/04/21 16:01 Oxycodone Hcl Immed Release 5 Mg Tablet PO 5 mg Q6H PRN Administration Pain, Severe (Pain Scale 7-10) Pharmacy Consult 1 each 04/03/21 09:44 Consult Rx Perform Med Rec MISCELLANE ONCE PRN Consult order Pharmacy Consult 1 each 04/04/21 08:09 Consult Rx Vancomycin Dosing MISCELLANE DAILY PRN Consult order Sodium Chloride 3 ml 04/04/21 00:00 04/04/21 16:02 0.9 % Sodium Chloride Flush 3 Ml Syringe IVFLUSH 3 ml QSHIFT EDER Administration Allergies Allergies Allergy/AdvReac Type Severity Reaction Status Date / Time azithromycin [AZITHROMYCIN] Allergy Unknown UNK Verified 08/24/20 16:06 erythromycin base Allergy Unknown RASH Verified 08/24/20 16:06 [ERYTHROMYCIN BASE] olanzapine [From ZYPREXA] Allergy Unknown PEDAL EDEMA Verified 08/24/20 16:06 quetiapine [From SEROQUEL] Allergy Unknown THROAT Verified 08/24/20 16:06 SWELLING risperidone [From RISPERDAL] Allergy Unknown TWITCHING Verified 08/24/20 16:06 shellfish derived Allergy Unknown VOMITING Verified 08/24/20 16:06 [SHELLFISH DERIVED] sulfamethoxazole Allergy Unknown ITCHING Verified 08/24/20 16:06 [From BACTRIM] trimethoprim [From BACTRIM] Allergy Unknown ITCHING Verified 08/24/20 16:06 arithromiosin Allergy Unknown Unknown Uncoded 08/24/20 16:06 gluten Allergy Unknown Unknown Uncoded 08/24/20 16:06 sea food Allergy Unknown Unknown Uncoded 08/24/20 16:06 Sulfacet-R Allergy Unknown Unknown Uncoded 08/24/20 16:06 SEAFOOD AdvReac Unknown VOMIT Uncoded 06/07/20 15:47 Assessment & Plan Assessment & Plan (1) Opioid use disorder, severe, dependence: Status: Acute Code(s): F11.20 - Opioid dependence, uncomplicated Recommendations: * methadone 20mg ordered * additional 10mg ordered later this evening for continued c/o withdrawal * to be seen in AM by RS RN and RN INTERNATIONAL for dose titration as necessary 35 mins spent with patient and coordinating care Greater than 50% of the session was spent on counseling and/or coordination of care PMFSH Past Medical History Medical History (Updated 04/04/21 @ 23:16 by Liset Brambila CNP) Opioid dependence Substance abuse Substance abuse Family History Family history: reviewed and not pertinent Social History Social History Household Members: None Housing: Other Housing Other:: patient states she is homeless Do you presently have visiting nurse or other home services: No Unable to assess alcohol history related to: Unknown Alcohol intake: current Alcohol intake frequency: 3 or more drinks per day Patient Tobacco Use Status: Current everyday Tobacco user Tobacco use type: Cigarette Cigarette Packs Per Day: 0 Cigarettes Per Day: 4 Years Smoked: 20 Smoked in Last 30 Days: Yes Patient Interested in Nicotine Replacement: Yes Patient Given Instructions on How to Stop Smoking: No (refuses) Second Hand Smoke Exposure: No Use of substances other than those prescribed or required for medical reasons: Yes Substance Use Type: Crack/Cocaine and Heroin Substance Use Frequency: Daily Last Used Substance: Just Prior to Admission Last Used Substance Other:: last night Currently Displaying Signs/Symptoms of Drug Intoxication Withdrawal: No Any prior treatment program specific to substance use: No Have you been hit, kicked, punched, or otherwise hurt by someone within the past year? If so, by whom?: No (patient is not answering) Do you feel safe in your current relationship?: Yes Is there a partner from a previous relationship who is making you feel unsafe now?: No Are you made to feel afraid or neglected: No Advance Directives: Yes Advance Directives Information Provided: Yes Advance Directives on File: No Advance Directives Date on File: 04/03/21 Do you have thoughts of harming others: None Do you have a plan to hurt others: No Plan Recently lost weight without trying: No Nutrition Risks: No Nutritional Risk Patient : No : No service: No Current occupational status: unemployed
[2021-04-04 23:59] VITALS: BP 140/65; PULSE 68; RESP 18; TEMP 36.1; O2SAT 98
[2021-04-05] VITALS (12 sets, daily range): BP systolic 112–150; BP diastolic 65–89; PULSE 62–70; RESP 16–20; TEMP 36.1–36.3; O2SAT 97–100
[2021-04-05] MEDS: 0.9 % Sodium Chloride Flush 3 ML SYRINGE IVFLUSH ×2 (00:52→05:59)
[2021-04-05] MEDS: Acetaminophen 325 MG TABLET 650 MG PO ×2 (05:56→17:09)
[2021-04-05] MEDS: oxyCODONE HCl Immed Release 5 MG TABLET PO ×4 (05:57→23:55)
[2021-04-05 07:59] LABS: Hematocrit 35.2 % (37-47); Hemoglobin 11.4 g/dl (12.0-16.0); Mean Corpuscular HGB Conc 32.4 g/dl (31.0-35.0); Mean Corpuscular Hemoglobin 29.8 pg (27.0-33.0); Mean Corpuscular Volume 91.9 fL (80-98); Mean Platelet Volume 9.6 fL (9.4-12.3); Platelet Count 163 X10*3/uL (160-400); Red Blood Count 3.83 X10*6/uL (4.20-5.50); Red Cell Distribution Width 13.2 % (11.0-16.0); White Blood Count 3.5 X10*3/uL (4.8-10.8)
--- NOTE | 2021-04-05 08:11 | HO.PM.IMPN ---
Subjective Subjective Date of Service: 04/05/21 Interval History: Seen in follow-up for cellulitis of the right arm. Persitent pain, redness and swelling is better but now with some superficial drainage from the area--see picture Review of Systems Gen: - fever Resp: no sob, no cough CV: no chest, no BALDWIN, no leg edema GI: No n/v, no abd pain Neuro: No confusion Skin: left arm swelling and redness, pain Physical Exam Vital Signs: Vital Signs: Last Vital Signs Temp 97.2 F 04/05/21 07:46 Pulse 65 04/05/21 07:46 Resp 16 04/05/21 07:46 BP 138/65 04/05/21 07:46 Pulse Ox 99 04/05/21 07:46 Body Mass Index 24.2 Const: Other: Constitutional Awake and Alert, No apparent distress HEENT anicteric, PERRLA, normal eye movment Neck Supple, No lymphadenopathy Cardiovascular RRR, No M/R/G, S1 S2, No S3 S4, No pedal edema Respiratory Lungs clear, No respiratory distress Gastrointestinal Non tender, Non-distended Skin no signficant change today 04/05 Redness is better but now supperficial abscess She is able to move all fingers Neurological Alert & oriented x3 Psychological Appropriate affect Objective Data Current Medications Generic Name Dose Route Start Last Admin Trade Name Josesitoq PRN Reason Stop Dose Admin Acetaminophen 650 mg 04/03/21 15:23 Acetaminophen Supp 650 Mg Supp.Rect MN Q6H PRN Fever >100.4 Acetaminophen 650 mg 04/03/21 16:39 04/05/21 05:56 Acetaminophen 325 Mg Tablet PO 650 mg Q6H PRN Administration Pain, Mild (Pain Scale 1-3) Clonidine HCl 0.1 mg 04/03/21 16:18 04/04/21 19:57 Clonidine Hcl 0.1 Mg Tablet PO 0.1 mg TID PRN Administration Opiate Withdrawal Protocol Enoxaparin Sodium 40 mg 04/03/21 16:45 04/04/21 16:05 Enoxaparin Sodium 40 Mg/0.4 Ml Syringe SUBCUT 40 mg Q24H EDER Administration Ceftriaxone Sodium 1 gm/ 50 mls @ 100 mls/hr 04/03/21 18:00 04/04/21 18:29 Sodium Chloride IV Infused Q24H EDER Infusion Vancomycin HCl 1,000 mg/ 270 mls @ 270 mls/hr 04/04/21 08:00 04/04/21 21:20 Sodium Chloride IV Infused Q12H EDER Infusion Methadone HCl 20 mg 04/04/21 17:25 04/05/21 07:55 Methadone Hcl 1 Mg/0.1 Ml Oral.Conc PO 20 mg DAILY EDER Administration Nicotine Polacrilex 2 mg 04/03/21 22:17 Nicotine Polacrilex 2 Mg Gum BUCCAL Q1H PRN Nicotine Cravings Oxycodone HCl 5 mg 04/03/21 16:07 04/05/21 05:57 Oxycodone Hcl Immed Release 5 Mg Tablet PO 5 mg Q6H PRN Administration Pain, Severe (Pain Scale 7-10) Pharmacy Consult 1 each 04/03/21 09:44 Consult Rx Perform Med Rec MISCELLANE ONCE PRN Consult order Pharmacy Consult 1 each 04/04/21 08:09 Consult Rx Vancomycin Dosing MISCELLANE DAILY PRN Consult order Sodium Chloride 3 ml 04/04/21 00:00 04/05/21 05:59 0.9 % Sodium Chloride Flush 3 Ml Syringe IVFLUSH 3 ml QSHIFT EDER Administration Labs CBC & Chem 7: 04/05/21 07:50 04/03/21 10:27 Labs: Laboratory Results - last 24 hr 04/05/21 07:50 WBC 3.5 L RBC 3.83 L Hgb 11.4 L Hct 35.2 L MCV 91.9 MCH 29.8 MCHC 32.4 RDW 13.2 Plt Count 163 MPV 9.6 Absolute Nucleated RBC 0.000 Nucleated RBC % (auto) 0.0 Microbiology Microbiology Results: Microbiology 04/03/21 Unknown Urine Culture - Final Urine clean catch - Urine sheth top Escherichia coli 04/03/21 10:28 Blood Culture - Preliminary Blood - Venous No growth after 24 hours. 04/03/21 10:28 Blood Culture - Preliminary Blood - Venous No growth after 24 hours. Quality Stroke Does the patient have a stroke diagnosis?: No VTE Prior VTE?: No VTE Risk Level:: Medical - moderate - high VTE Device Contraindication: Treatment Not Indicated VTE Drug Contraindication: N/A - Med Ordered Assessment and Plan (1) Opioid dependence: Status: Acute (2) UTI (urinary tract infection): Status: Acute (3) Cellulitis: Status: Acute (4) Substance abuse: Status: Inactive Assessment and Plan: 41 year old with IVDA here here with Left arm cellulitis from injecting in the area and also has febrile UTI 1/Severe Cellulitis of the left arm, circomferential and now with abscess formationconcern for MRSA -Vancomycin and Zosyn given in ED on D1 -Continue Vancomycin and add Ceftriaxone to cover UTI and possible strep pneumo -ID following -Ortho consult--may need drainage --Blood cultures no growth -oxycodone for pain 2/UTI-Treat with Ceftriaxone, culture growing ecoli 3/ Opioid dependece -Addiction consult -Clonidine for withdrawal -Methadone ordered 4/Lovenx for DVT prophylaxis
--- NOTE | 2021-04-05 08:17 | PM.EVENT ---
Event Note Date of Service: 04/05/21 Event Note: Is seen at bedside this morning and she has a warm compress applied. There is more localized redness to the area that she injected. There are pustular areas now. They are not actively open or draining. We will discuss with Dr. Ceron to determine whether she should have bedside I&D, continue conservative treatment or other surgical intervention.
[2021-04-05 08:22] LABS: Anion Gap 11 (12-20); Blood Urea Nitrogen 6 mg/dL (9-16); Calcium 8.4 mg/dL (8.4-10.2); Carbon Dioxide 24 mmol/L (22-29); Chloride 109 mmol/L (96-108); Estimated Glomerular Filt Rate > 60; Glucose Random 105 mg/dL (60-115); Potassium 3.8 mmol/L (3.3-5.1); Sodium 140 mmol/L (135-145)
[2021-04-05 08:32] LABS: Vancomycin Trough 4.6 mcg/mL (10.0-20.0)
--- NOTE | 2021-04-05 09:50 | P.EN_ITS ---
Event Note Date of Service: 04/05/21 Event Note: Met with patient this morning along with manager disaster recovery. Patient lying on side, appeared to be in active opioid withdrawals. Patient reports active withdrawal symptoms of body aches, chills, headache, runny nose, loose stools. Requesting methadone dose increase. Patient alert and oriented x4. Recent EKG reviewed. PLAN: Increase methadone dose to 30 mg daily, with 10 mg dose p.r.n. available. Orders have been placed, this has been shared with .
[2021-04-05] MEDS: vancomycin HCL 1,500 MG in 0.9 % Sodium Chloride 500 ML 333.33 MG IV ×2 (10:00→22:37)
--- NOTE | 2021-04-05 10:59 | PC.NURSE ---
Skin/Wound assessment completed today. Patient has cellulitis on right forearm oozing purulent drainage. She is going to surgery for an I & D this afternoon. Will follow up sebastian
--- NOTE | 2021-04-05 11:41 | MHC.RECOVRN ---
T/w met with pt, along with Kelly Hinds NP, to discuss methadone effectiveness and withdrawal symptoms. Pt received 20 mg yesterday with an additional 10 mg at 2342. Pt states It's not enough. Pt reports diarrhea, body aches, runny nose. Pt does is not currently connected to an OTP, will need referral prior to d/c. Discussed with Kelly Hinds NP. Plan to increase methadone dose. Will continue to follow.
--- NOTE | 2021-04-05 13:50 | MHC.CM.PN ---
DP Female 41 DX Cellulitis. DP will be to [facility] for assisted abx. A referral has been sent. CM will follow.
--- NOTE | 2021-04-05 14:29 | HO.ANESPROP2 ---
[facility] Active Problems Active Problems: All Active Problems (Updated 04/04/21 @ 23:16 by Liset Brambila CNP) Opioid use disorder, severe, dependence (Acute) Opioid dependence (Acute) Cellulitis (Acute) UTI (urinary tract infection) (Acute) Substance abuse (Acute) Back pain (Acute) Hypoglycemia (Acute) Toxic metabolic encephalopathy (Acute) Physical deconditioning (Acute) Cocaine abuse (Acute) Past Medical History Medical History Opioid dependence Substance abuse Substance abuse Functional capacity: independent ambulation Social History Social History Household Members: None Housing: Other Housing Other:: patient states she is homeless Do you presently have visiting nurse or other home services: No Unable to assess alcohol history related to: Unknown Alcohol intake: current Alcohol intake frequency: does not drink Patient Tobacco Use Status: Current everyday Tobacco user Tobacco use type: Cigarette Cigarette Packs Per Day: 0 Cigarettes Per Day: 3 Years Smoked: 10 Smoked in Last 30 Days: Yes Patient Interested in Nicotine Replacement: Yes Patient Given Instructions on How to Stop Smoking: No (refuses) Second Hand Smoke Exposure: No Use of substances other than those prescribed or required for medical reasons: Yes Substance Use Type: Crack/Cocaine and Heroin Substance Use Frequency: Chronic Longstanding Last Used Substance: Just Prior to Admission Last Used Substance Other:: last night Currently Displaying Signs/Symptoms of Drug Intoxication Withdrawal: No Any prior treatment program specific to substance use: No Have you been hit, kicked, punched, or otherwise hurt by someone within the past year? If so, by whom?: No (patient is not answering) Do you feel safe in your current relationship?: Yes Is there a partner from a previous relationship who is making you feel unsafe now?: No Are you made to feel afraid or neglected: No Are you DNR?: No Advance Directives: Yes Advance Directives Information Provided: Yes Advance Directives on File: No Advance Directives Date on File: 04/03/21 Do you have thoughts of harming others: None Do you have a plan to hurt others: No Plan Recently lost weight without trying: No Nutrition Risks: No Nutritional Risk Patient : No : No service: No Current occupational status: unemployed Meds Allergies Allergy/AdvReac Type Severity Reaction Status Date / Time azithromycin [AZITHROMYCIN] Allergy Unknown UNK Verified 08/24/20 16:06 erythromycin base Allergy Unknown RASH Verified 08/24/20 16:06 [ERYTHROMYCIN BASE] olanzapine [From ZYPREXA] Allergy Unknown PEDAL EDEMA Verified 08/24/20 16:06 quetiapine [From SEROQUEL] Allergy Unknown THROAT Verified 08/24/20 16:06 SWELLING risperidone [From RISPERDAL] Allergy Unknown TWITCHING Verified 08/24/20 16:06 shellfish derived Allergy Unknown VOMITING Verified 08/24/20 16:06 [SHELLFISH DERIVED] sulfamethoxazole Allergy Unknown ITCHING Verified 08/24/20 16:06 [From BACTRIM] trimethoprim [From BACTRIM] Allergy Unknown ITCHING Verified 08/24/20 16:06 arithromiosin Allergy Unknown Unknown Uncoded 08/24/20 16:06 gluten Allergy Unknown Unknown Uncoded 08/24/20 16:06 sea food Allergy Unknown Unknown Uncoded 08/24/20 16:06 Sulfacet-R Allergy Unknown Unknown Uncoded 08/24/20 16:06 SEAFOOD AdvReac Unknown VOMIT Uncoded 06/07/20 15:47 Active Medications: Current Medications Generic Name Dose Route Start Last Admin Trade Name Freq PRN Reason Stop Dose Admin Acetaminophen 650 mg 04/03/21 15:23 Acetaminophen Supp 650 Mg Supp.Rect MO Q6H PRN Fever >100.4 Acetaminophen 650 mg 04/03/21 16:39 04/05/21 05:56 Acetaminophen 325 Mg Tablet PO 650 mg Q6H PRN Administration Pain, Mild (Pain Scale 1-3) Clonidine HCl 0.1 mg 04/03/21 16:18 04/04/21 19:57 Clonidine Hcl 0.1 Mg Tablet PO 0.1 mg TID PRN Administration Opiate Withdrawal Protocol Enoxaparin Sodium 40 mg 04/03/21 16:45 04/04/21 16:05 Enoxaparin Sodium 40 Mg/0.4 Ml Syringe SUBCUT 40 mg Q24H EDER Administration Ceftriaxone Sodium 1 gm/ 50 mls @ 100 mls/hr 04/03/21 18:00 04/04/21 18:29 Sodium Chloride IV Infused Q24H EDER Infusion Vancomycin HCl 1,500 mg/ 500 mls @ 333.333 mls/hr 04/05/21 09:00 04/05/21 11:56 Sodium Chloride IV Infused Q12H [facility] Infusion Methadone HCl 30 mg 04/06/21 09:00 Methadone Hcl 1 Mg/0.1 Ml Oral.Conc PO DAILY EDER Methadone HCl 10 mg 04/05/21 09:37 Methadone Hcl 1 Mg/0.1 Ml Oral.Conc PO DAILY PRN opioid withdrawal Nicotine Polacrilex 2 mg 04/03/21 22:17 Nicotine Polacrilex 2 Mg Gum BUCCAL Q1H PRN Nicotine Cravings Oxycodone HCl 5 mg 04/03/21 16:07 04/05/21 05:57 Oxycodone Hcl Immed Release 5 Mg Tablet PO 5 mg Q6H PRN Administration Pain, Severe (Pain Scale 7-10) Pharmacy Consult 1 each 04/03/21 09:44 Consult Rx Perform Med Rec MISCELLANE ONCE PRN Consult order Pharmacy Consult 1 each 04/04/21 08:09 Consult Rx Vancomycin Dosing MISCELLANE DAILY PRN Consult order Sodium Chloride 3 ml 04/04/21 00:00 04/05/21 05:59 0.9 % Sodium Chloride Flush 3 Ml Syringe IVFLUSH 3 ml QSHIFT [facility] Administration Home Medications Medication Instructions Recorded Confirmed Last Taken Type aspirin 80 mg PO DAILY 12/04/20 04/03/21 Unknown History bupropion HCl 150 mg PO BID 12/04/20 04/03/21 Unknown History cyanocobalamin (vitamin B-12) 1,000 mcg PO DAILY 12/04/20 04/03/21 Unknown History [Vitamin B-12] diclofenac sodium 50 mg PO TID PRN 12/04/20 04/03/21 Unknown History ferrous sulfate 325 mg PO DAILY 12/04/20 04/03/21 Unknown History hydroxyzine pamoate 1 cap PO BID PRN 12/04/20 04/03/21 Unknown History loratadine 10 mg PO DAILY 12/04/20 04/03/21 Unknown History multivitamin [Daily-Angle] 1 tab PO DAILY 12/04/20 04/03/21 Unknown History methadone 90 mg PO DAILY 12/23/20 04/03/21 12/20/20 History diazepam 1 tab PO TID 01/02/21 04/03/21 Unknown History zolpidem 5 mg PO BEDTIME PRN 01/02/21 04/03/21 Unknown History Exam Exam Date and Time: April 05, 2021 [id number] Height,Weight and Vital Signs: Height 5 ft 6 in Weight 68 kg Last Vital Signs Temp 97.3 F 04/05/21 14:20 Pulse 64 04/05/21 14:20 Resp 16 04/05/21 14:20 BP 123/82 04/05/21 14:20 Pulse Ox 98 04/05/21 14:20 Pertinent Lab Results Pertinent Lab Results: Laboratory Tests 04/03/21 04/03/21 04/03/21 10:27 10:27 10:27 WBC 6.9 RBC 4.17 L Hgb 12.7 Hct 38.1 MCV 91.4 MCH 30.5 MCHC 33.3 RDW 12.9 Plt Count 192 MPV 9.5 Immature Gran % (Auto) 0.3 Neut % (Auto) 67.8 Lymph % (Auto) 21.5 [place] % (Auto) 8.8 Eos % (Auto) 1.3 Baso % (Auto) 0.3 Lymph # (Auto) 1.5 Canadian # (Auto) 0.6 Eos # (Auto) 0.1 Baso # (Auto) 0.0 Abs Immat Gran (auto) 0.02 Absolute Neuts (auto) 4.7 Absolute Nucleated RBC 0.000 Nucleated RBC % (auto) 0.0 PT INR APTT Sodium 136 Potassium 3.5 Chloride 95 L Carbon Dioxide 30 H Anion Gap 15 BUN 3 L Creatinine 0.75 Estim Creat Clear Calc 90.5 Estimated GFR > 60 Random Glucose 105 Lactic Acid 1.2 Calcium 9.2 Magnesium 1.8 Total Bilirubin 1.4 H Direct Bilirubin 0.9 H AST 51 H ALT 30 Alkaline Phosphatase 124 H Total Creatine Kinase 375 H D Total Protein 7.2 Albumin 4.1 D Lipase 8 Urine Color Urine Appearance Urine pH Ur Specific [place] Urine Protein Urine Glucose (UA) Urine Ketones Urine Blood Urine Nitrite Ur Leukocyte Esterase Urine RBC Urine WBC Ur Squamous Epith Cells Urine Bacteria Urine Test Vancomycin Trough Salicylates Urine Opiates Screen Acetaminophen Ur Barbiturates Screen Ur Phencyclidine Scrn Ur Amphetamines Screen U Benzodiazepines Scrn Urine Cocaine Screen U Marijuana (THC) Screen Ethyl Alcohol Chlam trachomat DNA PCR COVID-19 (ZACK) COVID-19 Clin Com N.gonorrhoeae DNA (PCR) 04/03/21 04/03/21 04/03/21 10:28 10:28 10:28 WBC RBC Hgb Hct MCV MCH MCHC RDW Plt Count MPV Immature Gran % (Auto) Neut % (Auto) Lymph % (Auto) Canadian % (Auto) Eos % (Auto) Baso % (Auto) Lymph # (Auto) [place] # (Auto) Eos # (Auto) Baso # (Auto) Abs Immat Gran (auto) Absolute Neuts (auto) Absolute Nucleated RBC Nucleated RBC % (auto) PT 12.7 INR 1.1 APTT 46.6 H Sodium Potassium Chloride Carbon Dioxide Anion Gap BUN Creatinine Estim Creat Clear Calc Estimated GFR Random Glucose Lactic Acid Calcium Magnesium Total Bilirubin Direct Bilirubin AST ALT Alkaline Phosphatase Total Creatine Kinase Total Protein Albumin Lipase Urine Color Urine Appearance Urine pH Ur Specific [place] Urine Protein Urine Glucose (UA) Urine Ketones Urine Blood Urine Nitrite Ur Leukocyte Esterase Urine RBC Urine WBC Ur Squamous Epith Cells Urine Bacteria Urine Test Vancomycin Trough Salicylates < 5.0 L Urine Opiates Screen Acetaminophen < 1 Ur Barbiturates Screen Ur Phencyclidine Scrn Ur Amphetamines Screen U Benzodiazepines Scrn Urine Cocaine Screen U Marijuana (THC) Screen Ethyl Alcohol Chlam trachomat DNA PCR COVID-19 (ZACK) Negative COVID-19 Clin Com See Note N.gonorrhoeae DNA (PCR) 04/03/21 04/03/21 04/03/21 10:28 10:28 10:28 WBC RBC Hgb Hct MCV MCH MCHC RDW Plt Count MPV Immature Gran % (Auto) Neut % (Auto) Lymph % (Auto) Canadian % (Auto) Eos % (Auto) Baso % (Auto) Lymph # (Auto) [place] # (Auto) Eos # (Auto) Baso # (Auto) Abs Immat Gran (auto) Absolute Neuts (auto) Absolute Nucleated RBC Nucleated RBC % (auto) PT INR APTT Sodium Potassium Chloride Carbon Dioxide Anion Gap BUN Creatinine Estim Creat Clear Calc Estimated GFR Random Glucose Lactic Acid Calcium Magnesium Total Bilirubin Direct Bilirubin AST ALT Alkaline Phosphatase Total Creatine Kinase Total Protein Albumin Lipase Urine Color YELLOW Urine Appearance CLOUDY Urine pH 6.0 Ur Specific [place] 1.010 Urine Protein NEG Urine Glucose (UA) NEG Urine Ketones NEG Urine Blood TRACE Urine Nitrite POS H Ur Leukocyte Esterase 3+ H Urine RBC 0-2 Urine WBC 76-150 H Ur Squamous Epith Cells 1+ Urine Bacteria 4+ Urine Test NEGATIVE Vancomycin Trough Salicylates Urine Opiates Screen Acetaminophen Ur Barbiturates Screen Ur Phencyclidine Scrn Ur Amphetamines Screen U Benzodiazepines Scrn Urine Cocaine Screen U Marijuana (THC) Screen Ethyl Alcohol < 10 Chlam trachomat DNA PCR COVID-19 (ZACK) COVID-19 Clin Com N.gonorrhoeae DNA (PCR) 04/03/21 04/03/21 04/05/21 10:28 10:39 07:50 WBC RBC Hgb Hct MCV MCH MCHC RDW Plt Count MPV Immature Gran % (Auto) Neut % (Auto) Lymph % (Auto) [place] % (Auto) Eos % (Auto) Baso % (Auto) Lymph # (Auto) [place] # (Auto) Eos # (Auto) Baso # (Auto) Abs Immat Gran (auto) Absolute Neuts (auto) Absolute Nucleated RBC Nucleated RBC % (auto) PT INR APTT Sodium Potassium Chloride Carbon Dioxide Anion Gap BUN Creatinine Estim Creat Clear Calc Estimated GFR Random Glucose Lactic Acid Calcium Magnesium Total Bilirubin Direct Bilirubin AST ALT Alkaline Phosphatase Total Creatine Kinase Total Protein Albumin Lipase Urine Color Urine Appearance Urine pH Ur Specific [place] Urine Protein Urine Glucose (UA) Urine Ketones Urine Blood Urine Nitrite Ur Leukocyte Esterase Urine RBC Urine WBC Ur Squamous Epith Cells Urine Bacteria Urine Test Vancomycin Trough 4.6 L Salicylates Urine Opiates Screen POSITIVE H Acetaminophen Ur Barbiturates Screen Not Detected Ur Phencyclidine Scrn Not Detected Ur Amphetamines Screen Not Detected U Benzodiazepines Scrn POSITIVE H Urine Cocaine Screen POSITIVE H U Marijuana (THC) Screen Not Detected Ethyl Alcohol Chlam trachomat DNA PCR NOT DETECTED COVID-19 (ZACK) COVID-19 Clin Com N.gonorrhoeae DNA (PCR) NOT DETECTED 04/05/21 04/05/21 07:50 07:50 WBC 3.5 L RBC 3.83 L Hgb 11.4 L Hct 35.2 L MCV 91.9 MCH 29.8 MCHC 32.4 RDW 13.2 Plt Count 163 MPV 9.6 Immature Gran % (Auto) Neut % (Auto) Lymph % (Auto) [place] % (Auto) Eos % (Auto) Baso % (Auto) Lymph # (Auto) [place] # (Auto) Eos # (Auto) Baso # (Auto) Abs Immat Gran (auto) Absolute Neuts (auto) Absolute Nucleated RBC 0.000 Nucleated RBC % (auto) 0.0 PT INR APTT Sodium 140 Potassium 3.8 Chloride 109 H Carbon Dioxide 24 Anion Gap 11 L BUN 6 L D Creatinine 0.58 Estim Creat Clear Calc 117.0 Estimated GFR > 60 Random Glucose 105 Lactic Acid Calcium 8.4 D Magnesium Total Bilirubin Direct Bilirubin AST ALT Alkaline Phosphatase Total Creatine Kinase Total Protein Albumin Lipase Urine Color Urine Appearance Urine pH Ur Specific [place] Urine Protein Urine Glucose (UA) Urine Ketones Urine Blood Urine Nitrite Ur Leukocyte Esterase Urine RBC Urine WBC Ur Squamous Epith Cells Urine Bacteria Urine Test Vancomycin Trough Salicylates Urine Opiates Screen Acetaminophen Ur Barbiturates Screen Ur Phencyclidine Scrn Ur Amphetamines Screen U Benzodiazepines Scrn Urine Cocaine Screen U Marijuana (THC) Screen Ethyl Alcohol Chlam trachomat DNA PCR COVID-19 (ZACK) COVID-19 Clin Com N.gonorrhoeae DNA (PCR) Airway Mallampati Class: II TM Dist: >3cm Assessment and Plan Assessment Anesthesia Assessment: Anesthesia Plan Discussed Final Anesthetic Review NPO: Yes ASA Class: II Final Preanesthetic Review: No Changes in Pt Med Stat, Meds/Allgs Chart Reviewed and Anes Risks/Benef Reviewed Patient Risk: Intermediate Procedure Risk: Low Assessment/Block/Sedation in SS: Assess/Block/Sedation-SS Anesthetic Plan Anesthetic Plan: GA and MAC: Disposition: Standard PACU
--- NOTE | 2021-04-05 15:19 | P.BOP_ITS ---
Brief Operative Note Date of Service: 04/05/21 Pre-op diagnosis: right forearm abcess Post-op diagnosis: same Procedure: i$D right forearm Surgeon: Rafi Ceron MD Anesthesia: GETA Was an Geographic Information System Surveyor used for this Procedure?: No Estimated blood loss (mL): 25 Tourniquet time (min): 20 IV fluids (mL): 500 Pathology: none sent Condition: stable Disposition: PACU
--- NOTE | 2021-04-05 15:19 | MHC.SHP ---
Pre-Procedural Eval Section A Date of Service: 04/05/21 The patient is an INPATIENT: Yes Changes since office visit: Yes Patient answered all questions; No Cold of Flu in the past 2 weeks, No New Medical Problems and No Changes in Medication The History & Physical has been completed within 30 days and I have reviewed it.: Yes Section B Chief Complaint: Left Arm Cellulitis Allergies: Allergies Allergy/AdvReac Type Severity Reaction Status Date / Time azithromycin [AZITHROMYCIN] Allergy Unknown UNK Verified 08/24/20 16:06 erythromycin base Allergy Unknown RASH Verified 08/24/20 16:06 [ERYTHROMYCIN BASE] olanzapine [From ZYPREXA] Allergy Unknown PEDAL EDEMA Verified 08/24/20 16:06 quetiapine [From SEROQUEL] Allergy Unknown THROAT Verified 08/24/20 16:06 SWELLING risperidone [From RISPERDAL] Allergy Unknown TWITCHING Verified 08/24/20 16:06 shellfish derived Allergy Unknown VOMITING Verified 08/24/20 16:06 [SHELLFISH DERIVED] sulfamethoxazole Allergy Unknown ITCHING Verified 08/24/20 16:06 [From BACTRIM] trimethoprim [From BACTRIM] Allergy Unknown ITCHING Verified 08/24/20 16:06 arithromiosin Allergy Unknown Unknown Uncoded 08/24/20 16:06 gluten Allergy Unknown Unknown Uncoded 08/24/20 16:06 sea food Allergy Unknown Unknown Uncoded 08/24/20 16:06 Sulfacet-R Allergy Unknown Unknown Uncoded 08/24/20 16:06 SEAFOOD AdvReac Unknown VOMIT Uncoded 06/07/20 15:47 Plan I have reviewed the history and physical and performed a pertinent physical examination on my patient. No changes have occurred unless specified.
[2021-04-05] MEDS: fentaNYL citrate/PF 100 MCG/2 ML VIAL 50 MCG IVPUSH ×4 (15:20→15:35)
[2021-04-05] MEDS: LORazepam 2 MG/ML VIAL IVPUSH (15:30)
[2021-04-05] MEDS: fentaNYL citrate/PF 100 MCG/2 ML VIAL IVPUSH (15:45)
--- NOTE | 2021-04-05 16:21 | P.PNID_ITS ---
Subjective Subjective Date of Service: 04/05/21 Critical Care Time (minutes): 15 Comment: she is going to get left arm drained per history Objective Data Labs CBC & Chem 7: 04/05/21 07:50 04/05/21 07:50 Labs: Laboratory Results - last 24 hr 04/05/21 04/05/21 04/05/21 07:50 07:50 07:50 WBC 3.5 L RBC 3.83 L Hgb 11.4 L Hct 35.2 L MCV 91.9 MCH 29.8 MCHC 32.4 RDW 13.2 Plt Count 163 MPV 9.6 Absolute Nucleated RBC 0.000 Nucleated RBC % (auto) 0.0 Sodium 140 Potassium 3.8 Chloride 109 H Carbon Dioxide 24 Anion Gap 11 L BUN 6 L D Creatinine 0.58 Estim Creat Clear Calc 117.0 Estimated GFR > 60 Random Glucose 105 Calcium 8.4 D Vancomycin Trough 4.6 L Microbiology Microbiology Results: Microbiology 04/03/21 10:28 Blood - Venous Blood Culture - Preliminary No growth after 48 hours. 04/03/21 10:28 Blood - Venous Blood Culture - Preliminary 04/03/21 Unknown Urine clean catch - Urine sheth top Urine Culture - Final Escherichia coli Physical Exam Vital Signs: Vital Signs: Last Vital Signs Temp 97.0 F 04/05/21 15:15 Pulse 62 04/05/21 15:50 Resp 16 04/05/21 15:50 BP 124/77 04/05/21 15:50 Pulse Ox 97 04/05/21 15:50 Body Mass Index 24.2 Const: General: cooperative HENMT: Head: Yes normal to inspection Resp: Effort & Inspection: normal respiratory effort Cardio: Rate: regular rate Rhythm: regular rhythm GI: Palpation (GI): Soft to palpation and nontender Extrem: General: Yes normal to inspection Assessment and Plan Assessment and plan (1) Cellulitis: Problem details: need to assess bacteremia so far 1/2 gram positive cocci If staph aureus of any kind need continuing IV treatment for four weeks Status: Acute (2) UTI (urinary tract infection): Problem details: po Ceftin possible if culture sensitive Status: Acute Time Spent With Patient Time: Total time spent is greater than 50% in coordination of care (as do cumented) at patient's floor/unit and/or counseling patient: Time with patient: 15 - 24 minutes
[2021-04-05] MEDS: cefTRIAXone sodium 1 GM in 0.9 % Sodium Chloride 50 ML IV (17:09)
[2021-04-06] VITALS: BP 136/86; PULSE 78; RESP 16; TEMP 36; O2SAT 97
[2021-04-06] MEDS: Acetaminophen 325 MG TABLET 650 MG PO (05:15)
[2021-04-06] MEDS: oxyCODONE HCl Immed Release 5 MG TABLET PO ×2 (05:49→11:23)
[2021-04-06 07:52] VITALS: BP 123/66; PULSE 67; RESP 18; TEMP 36.5; O2SAT 98
[2021-04-06] MEDS: 0.9 % Sodium Chloride Flush 3 ML SYRINGE IVFLUSH ×2 (09:08→16:18)
[2021-04-06] MEDS: vancomycin HCL 1,500 MG in 0.9 % Sodium Chloride 500 ML 333.33 MG IV (09:08)
--- NOTE | 2021-04-06 09:27 | HO.PM.IMPN ---
Subjective Subjective Date of Service: 04/06/21 Interval History: Seen in follow-up for cellulitis of the right arm. Underwent I and D, c/o pain Review of Systems Gen: - fever Resp: no sob, no cough CV: no chest, no BALDWIN, no leg edema GI: No n/v, no abd pain Neuro: No confusion Skin: left arm pain Physical Exam Vital Signs: Vital Signs: Last Vital Signs Temp 97.7 F 04/06/21 07:52 Pulse 67 04/06/21 07:52 Resp 18 04/06/21 07:52 BP 123/66 04/06/21 07:52 Pulse Ox 98 04/06/21 07:52 Body Mass Index 24.2 Const: Other: Constitutional Awake and Alert, No apparent distress HEENT anicteric, PERRLA, normal eye movment Neck Supple, No lymphadenopathy Cardiovascular RRR, No M/R/G, S1 S2, No S3 S4, No pedal edema Respiratory Lungs clear, No respiratory distress Gastrointestinal Non tender, Non-distended Skin no signficant change today 04/05 no imaging today, arean under dresing Redness is better but now supperficial abscess She is able to move all fingers Neurological Alert & oriented x3 Psychological Appropriate affect Objective Data Current Medications Generic Name Dose Route Start Last Admin Trade Name Josesitoq PRN Reason Stop Dose Admin Acetaminophen 650 mg 04/03/21 15:23 Acetaminophen Supp 650 Mg Supp.Rect CO Q6H PRN Fever >100.4 Acetaminophen 650 mg 04/03/21 16:39 04/06/21 05:15 Acetaminophen 325 Mg Tablet PO 650 mg Q6H PRN Administration Pain, Mild (Pain Scale 1-3) Acetaminophen 650 mg 04/05/21 14:31 Acetaminophen 325 Mg Tablet PO ONCE PRN Pain, Mild (Pain Scale 1-3) Clonidine HCl 0.1 mg 04/03/21 16:18 04/04/21 19:57 Clonidine Hcl 0.1 Mg Tablet PO 0.1 mg TID PRN Administration Opiate Withdrawal Protocol Enoxaparin Sodium 40 mg 04/03/21 16:45 04/05/21 17:11 Enoxaparin Sodium 40 Mg/0.4 Ml Syringe SUBCUT Not Given Q24H EDER Ceftriaxone Sodium 1 gm/ 50 mls @ 100 mls/hr 04/03/21 18:00 04/05/21 17:45 Sodium Chloride IV Infused Q24H EDER Infusion Vancomycin HCl 1,500 mg/ 500 mls @ 333.333 mls/hr 04/05/21 09:00 04/06/21 09:08 Sodium Chloride IV 333.33 mls/hr Q12H EDER Administration Methadone HCl 30 mg 04/06/21 09:00 04/06/21 09:08 Methadone Hcl 1 Mg/0.1 Ml Oral.Conc PO 30 mg DAILY EDER Administration Methadone HCl 10 mg 04/05/21 09:37 Methadone Hcl 1 Mg/0.1 Ml Oral.Conc PO DAILY PRN opioid withdrawal Nicotine Polacrilex 2 mg 04/03/21 22:17 Nicotine Polacrilex 2 Mg Gum BUCCAL Q1H PRN Nicotine Cravings Ondansetron HCl 4 mg 04/05/21 14:31 Ondansetron Hcl 4 Mg/2 Ml Vial IVPUSH ONCE PRN Nausea and Vomiting Oxycodone HCl 5 mg 04/03/21 16:07 04/06/21 05:49 Oxycodone Hcl Immed Release 5 Mg Tablet PO 5 mg Q6H PRN Administration Pain, Severe (Pain Scale 7-10) Pharmacy Consult 1 each 04/03/21 09:44 Consult Rx Perform Med Rec MISCELLANE ONCE PRN Consult order Pharmacy Consult 1 each 04/04/21 08:09 Consult Rx Vancomycin Dosing MISCELLANE DAILY PRN Consult order Sodium Chloride 3 ml 04/04/21 00:00 04/06/21 09:08 0.9 % Sodium Chloride Flush 3 Ml Syringe IVFLUSH 3 ml QSHIFT EDER Administration Labs CBC & Chem 7: 04/05/21 07:50 04/05/21 07:50 Microbiology Microbiology Results: Microbiology 04/03/21 10:28 Blood Culture - Preliminary Blood - Venous Staphylococcus species 04/03/21 10:28 Blood Culture - Preliminary Blood - Venous No growth after 48 hours. 04/03/21 Unknown Urine Culture - Final Urine clean catch - Urine sheth top Escherichia coli Quality Stroke Does the patient have a stroke diagnosis?: No VTE Prior VTE?: No VTE Risk Level:: Medical - moderate - high VTE Device Contraindication: Treatment Not Indicated VTE Drug Contraindication: N/A - Med Ordered Assessment and Plan (1) Cellulitis: Status: Acute (2) UTI (urinary tract infection): Status: Acute Assessment and Plan: 41 year old with IVDA here here with Left arm cellulitis from injecting in the area and also has febrile UTI 1/Severe Cellulitis of the left arm with abscess, concern for MRSA -Continue Vancomycin and add Ceftriaxone to cover UTI and possible strep pneumo -ID following -Ortho performed I and D on 04/05 --Blood cultures 1/2 from 04/03 Staph species, the other negative x 48, likely contamination -dressing change by sergery 2/UTI-d/t E. cli Treat with Ceftriaxone, culture growing gram negative anel 3/ Opioid dependece -Addiction consult -Clonidine for withdrawal 4/Lovenx for DVT prophylaxis
--- NOTE | 2021-04-06 11:14 | PM.PNORT ---
Subjective Subjective Date of Service: 04/06/21 Interval history: POD1 s/p right forearm I+D with Dr. Ceron. Patient was sleeping comfortably in bed upon arrival into the room. She continues to perseverate on pain once awakened. The dressing and splint remains intact. Patient states that she is not having any decrease in her pain or symptoms. Physical Exam Vital Signs: Vital Signs: Last Vital Signs Temp 97.7 F 04/06/21 07:52 Pulse 67 04/06/21 07:52 Resp 18 04/06/21 07:52 BP 123/66 04/06/21 07:52 Pulse Ox 98 04/06/21 07:52 Body Mass Index 24.2 Const: General: cooperative, healthy appearing and no acute distress Resp: Effort & Inspection: normal respiratory effort and able to speak in complete sentences Cardio: Rate: regular rate Peripheral pulses: Peripheral pulses 2+ throughout GI: Palpation (GI): Soft to palpation Skin: Lesions: no lesions Rashes: no rashes Extrem: Other: Right forearm circumferential erythema remains about the same. Packing from I+D yesterday removed at bedside. No active drainage. Sensation intact. Radial pulse intact. Progress Note: A&P Assessment and plan (1) Opioid use disorder, severe, dependence: Status: Acute (2) Opioid dependence: Status: Acute (3) Cellulitis: Status: Acute Assessment and Plan: S/P POD1 right forearm I+D Packing removed at bedside Redressed and placed back in the splint Continue pain mgmnt Continue abx per medicine Dispo planning- Pending pain management and improvement of cellulitis Fall Risk Details Current Medications: Current Medications Generic Name Dose Route Start Last Admin Trade Name Freq PRN Reason Stop Dose Admin Acetaminophen 650 mg 04/03/21 15:23 Acetaminophen Supp 650 Mg Supp.Rect RI Q6H PRN Fever >100.4 Acetaminophen 650 mg 04/03/21 16:39 04/06/21 05:15 Acetaminophen 325 Mg Tablet PO 650 mg Q6H PRN Administration Pain, Mild (Pain Scale 1-3) Acetaminophen 650 mg 04/05/21 14:31 Acetaminophen 325 Mg Tablet PO ONCE PRN Pain, Mild (Pain Scale 1-3) Clonidine HCl 0.1 mg 04/03/21 16:18 04/04/21 19:57 Clonidine Hcl 0.1 Mg Tablet PO 0.1 mg TID PRN Administration Opiate Withdrawal Protocol Enoxaparin Sodium 40 mg 04/03/21 16:45 04/05/21 17:11 Enoxaparin Sodium 40 Mg/0.4 Ml Syringe SUBCUT Not Given Q24H EDER Ceftriaxone Sodium 1 gm/ 50 mls @ 100 mls/hr 04/03/21 18:00 04/05/21 17:45 Sodium Chloride IV Infused Q24H EDER Infusion Vancomycin HCl 1,500 mg/ 500 mls @ 333.333 mls/hr 04/05/21 09:00 04/06/21 10:50 Sodium Chloride IV Infused Q12H EDER Infusion Methadone HCl 30 mg 04/06/21 09:00 04/06/21 09:08 Methadone Hcl 1 Mg/0.1 Ml Oral.Conc PO 30 mg DAILY EDER Administration Methadone HCl 10 mg 04/05/21 09:37 04/06/21 10:59 Methadone Hcl 1 Mg/0.1 Ml Oral.Conc PO 10 mg DAILY PRN Administration opioid withdrawal Morphine Sulfate 3 mg 04/06/21 11:10 Morphine Sulfate 4 Mg/Ml Cartridge IVPUSH 04/06/21 11:11 ONCE ONE Nicotine Polacrilex 2 mg 04/03/21 22:17 Nicotine Polacrilex 2 Mg Gum BUCCAL Q1H PRN Nicotine Cravings Ondansetron HCl 4 mg 04/05/21 14:31 Ondansetron Hcl 4 Mg/2 Ml Vial IVPUSH ONCE PRN Nausea and Vomiting Oxycodone HCl 5 mg 04/03/21 16:07 04/06/21 05:49 Oxycodone Hcl Immed Release 5 Mg Tablet PO 5 mg Q6H PRN Administration Pain, Severe (Pain Scale 7-10) Pharmacy Consult 1 each 04/03/21 09:44 Consult Rx Perform Med Rec MISCELLANE ONCE PRN Consult order Pharmacy Consult 1 each 04/04/21 08:09 Consult Rx Vancomycin Dosing MISCELLANE DAILY PRN Consult order Sodium Chloride 3 ml 04/04/21 00:00 04/06/21 09:08 0.9 % Sodium Chloride Flush 3 Ml Syringe IVFLUSH 3 ml QSHIFT EDER Administration Time Spent With Patient Time: Total time spent is greater than 50% in coordination of care (as documented) at patient's floor/unit and/or counseling patient: Time with patient: less than 15 minutes Procedures Date of Service Date of Service: 04/06/21 Quality Stroke Does the patient have a stroke diagnosis?: No VTE Prior VTE?: No VTE Risk Level:: Medical - moderate - high VTE Device Contraindication: Treatment Not Indicated VTE Drug Contraindication: N/A - Med Ordered
[2021-04-06] MEDS: Morphine Sulfate 4 MG/ML CARTRIDGE 3 MG IVPUSH (11:23)
[2021-04-06] MEDS: Nicotine Polacrilex 2 MG GUM BUCCAL (11:33)
[2021-04-06 14:31] VITALS: O2SAT 98
[2021-04-06 15:01] VITALS: BP 151/74; PULSE 63; RESP 14; TEMP 36.6; O2SAT 98
--- NOTE | 2021-04-06 16:12 | PC.NURSE ---
Addendum entered by Pati Florez RN 04/06/21 16:34: Morphine was administered for pain,Ativan administered for anxiety,patient informed when all the meds are due for her,resting quietly at present Original Note: p patient anxious requesting pain meds and Ativan,wants to leave AMA I Dr. Garcia notified,reassured patient E awaiting new orders
[2021-04-06] MEDS: Morphine Sulfate 2 MG/ML CARTRIDGE IVPUSH (16:17)
[2021-04-06] MEDS: LORazepam 0.5 MG TABLET PO (16:17)
[2021-04-06] MEDS: Enoxaparin Sodium 40 MG/0.4 ML SYRINGE SUBCUT (16:19)
[2021-04-06 16:37] VITALS: BP 133/55; PULSE 65; RESP 15; TEMP 36.4; O2SAT 98
--- NOTE | 2021-04-06 17:45 | PC.NURSE ---
P Patient decided to leave AMA,does not want to listen to any advise,yelling at RN to take IV out,does not want any more medications I Dr. Her notified,ALISON Girard notified E-IV removed,[employer] assisted patient downstairs to pharmacy picking technician her belongings,encouraged patient to contact her PCP
--- NOTE | 2021-04-06 18:56 | HO.POSTANES ---
Post Anesthesia Evaluation Post Anesthesia Evaluation Vital Signs: Vital Signs Temp Pulse Resp BP Pulse Ox 04/06/21 16:37 97.5 F 65 15 133/55 L 98 04/06/21 15:01 97.8 F 63 14 151/74 H 98 04/06/21 14:31 98 04/06/21 07:52 97.7 F 67 18 123/66 98 Anesthesia: General Mental Status: Awake Pain Control: Satisfactory Nausea/Vomiting: None Hydration: Adequate Anesthesia-Related Issues: No Anes. Related Issues
--- NOTE | 2021-04-09 14:04 | W.PM.OPN ---
Operative Note Operative Note Date of Service: 04/09/21 Narrative: Pre-op diagnosis: right forearm abcess Post-op diagnosis: same Procedure: i$D right forearm Surgeon: Rafi Ceron MD Anesthesia: GETA Was an Finish Specialist used for this Procedure?: No Estimated blood loss (mL): 25 Tourniquet time (min): 20 IV fluids (mL): 500 Pathology: none sent Condition: stable Disposition: PACU Procedure in detail: Patient was brought to the operating room and placed supine on the surgical table. She was prepped and draped in standard sterile fashion and a time out was called to identify proper site, proper procedure and IV antibiotics per weight were administered. I began by insufflating the tourniquet to 250 mm mercury. There were 3 areas of dulce purulence discharge over the dorsal forearm. A 15 blade was used to open these up with a 2 cm and a 1 cm incision. Blunt dissection was not taken down completely through the skin and to the fascia. There was a copious purulence discharge and this was removed with a combination of curette, rongeur and pulse lavage. There did not appear to be any deep involvement and extensor tendons were intact. Once there was no remaining purulent material and all necrotic debris was removed I packed the wound with half-inch iodinated gauze. Sterile dressings were then applied. The tourniquet was let down. There was no brisk bleeding. Patient was placed into a sterile dressing and a well-padded volar splint extubated brought to recovery room in stable condition there were no known complications.
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
== END 2021-04-06 17:54 | disposition left against medical advice (07) | DRG 364 ==
LOC: HO.ED 15:15 → HO.EDOVER 16:19 → HO.S3 18:59
PROVIDERS: Orthopaedic Surgery; Physician Assistant; Admitting Provider Internal Medicine; Emergency Provider Emergency Medicine; Visit Provider Internal Medicine
PROC: 0J9D0ZZ Drainage of Right Upper Arm Subcutaneous Tissue and Fascia, Open Approach (ICD-10-PCS; principal; 2021-04-05 14:30)
DX: L02.413 Cutaneous abscess of right upper limb (principal); F11.20 Opioid dependence, uncomplicated; L03.113 Cellulitis of right upper limb; N39.0 Urinary tract infection, site not specified; B96.20 Unspecified Escherichia coli [E. coli] as the cause of diseases classified elsewhere; Z20.822 Contact with and (suspected) exposure to COVID-19; Z59.0 Homelessness; Z88.0 Allergy status to penicillin; Z88.2 Allergy status to sulfonamides; Z79.82 Long term (current) use of aspirin; Z79.899 Other long term (current) drug therapy
CPT/HCPCS: 36415; 70450; 71045; 72125; 72128; 72131; 73201; 80048; 80076; 80143; 80179; 80202; 80307; 81001; 81003; 81025; 82077; 82550; 83605; 83690; 83735; 85025; 85027; 85610; 85730; 87040; 87077; 87086; 87088; 87186; 87205; 87491; 87591; 87635; 99285; J0696; J1650; J2060; J2250; J2270; J2405; J2543; J3010; J3370; Q9967

== ENCOUNTER 2021-04-07 17:03 | Inpatient (IN) | payer OTHER, SELFPAY ==
--- NOTE | ~2021-04-07 | US_ITS ---
EXAMINATION: US VENOUS WITH DOPPLER UPPER EXTREMITY, RIGHT CLINICAL INFORMATION: Right upper extremity edema and pain. Evaluate for a deep vein thrombosis. COMPARISON: Multiple priors, most recent right upper extremity venous ultrasound dated 08/23/2020. TECHNIQUE: Ultrasound of the upper extremity is performed using compression sonography and color and pulse Doppler flow with assessment of augmentation of flow. There is also imaging and Doppler assessment of the jugular and subclavian veins. Spectral analysis with color-flow imaging is performed. FINDINGS: Respiratory variation, normal compression, and augmented flow are noted throughout the upper extremity including the axillary, brachial, cubital, and radial and ulnar veins. There is normal flow in the internal jugular and subclavian veins. There is no visible deep or superficial thrombophlebitis. If the patient's symptoms progress, a follow up ultrasound in 5 -7 days might be of value to exclude proximal propagation from a nonvisualized distal arm vein. Unremarkable medial upper arm lymph node. US/US venous duplex UE RT IMPRESSION: No DVT demonstrated in the right upper extremity.
[2021-04-07 17:15] VITALS: BP 116/80; BP 117/60; PULSE 80; PULSE 90; RESP 18; TEMP 36.9; O2SAT 97; O2SAT 98; BMI 25.8
--- NOTE | 2021-04-07 17:28 | ED.GENADULT ---
HPI - General Adult General Chief complaint: Skin/Abscess/Foreign Body Stated complaint: ARM INFECTION Time Seen by Provider: 04/07/21 17:11 Source: patient and EMS Mode of arrival: EMS Limitations: no limitations History of Present Illness HPI narrative: 41 y/o female with history of IV drug use (heroin & fentanyl) who left [facility] [place] against medical advice yesterday presents back for evaluation and treatment of infection in her right forearm for which she was admitted for. She admits to using IV heroin and cocaine last night after she left, infected into her left hand. She has worsening pain in her right forearm as well as well as pain and redness in her left forearm. 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 Since she left the hospital last night she has felt unwell with shaking chills and nausea. Her blood cultures from 04/03 grew MRSA. MD complaint: arm pain Onset (ago): week(s) Location: left, right and upper extremity Radiation: distal Severity: severe Severity scale (1-10): 10 Quality: burning and aching Pain Consistency: constant Relieving factors: none Exacerbating factors: movement Associated symptoms: fever/chills, loss of appetite, malaise, nausea/vomiting and weakness Treatments prior to arrival: none Related Data Home Medications Medication Instructions Recorded Confirmed aspirin 80 mg PO DAILY 12/04/20 04/07/21 cyanocobalamin (vitamin B-12) 1,000 mcg PO DAILY 12/04/20 04/07/21 [Vitamin B-12] diclofenac sodium 50 mg PO TID PRN 12/04/20 04/07/21 hydroxyzine pamoate 1 cap PO NEEDED PRN 12/04/20 04/07/21 loratadine 10 mg PO DAILY 12/04/20 04/07/21 multivitamin [Daily-Angle] 1 tab PO DAILY 12/04/20 04/07/21 methadone 90 mg PO DAILY 12/23/20 04/03/21 diazepam 1 tab PO TID 01/02/21 04/07/21 zolpidem 5 mg PO BEDTIME PRN 01/02/21 04/07/21 Previous Rx's Medication Instructions Recorded buspirone 30 mg PO BID 7 Days #14 tab 02/01/21 gabapentin 800 mg PO TID 7 Days #21 tab 02/01/21 lamotrigine 50 mg PO DAILY 14 Days #28 tab 02/01/21 propranolol 20 mg PO Q6H PRN 7 Days #28 tab 02/01/21 topiramate 200 mg PO DAILY 7 Days #7 tab 02/01/21 Allergies Allergy/AdvReac Type Severity Reaction Status Date / Time azithromycin [AZITHROMYCIN] Allergy Unknown UNK Verified 04/07/21 17:15 erythromycin base Allergy Unknown RASH Verified 04/07/21 17:15 [ERYTHROMYCIN BASE] olanzapine [From ZYPREXA] Allergy Unknown PEDAL EDEMA Verified 04/07/21 17:15 quetiapine [From SEROQUEL] Allergy Unknown THROAT Verified 04/07/21 17:15 SWELLING risperidone [From RISPERDAL] Allergy Unknown TWITCHING Verified 04/07/21 17:15 shellfish derived Allergy Unknown VOMITING Verified 04/07/21 17:15 [SHELLFISH DERIVED] sulfamethoxazole Allergy Unknown ITCHING Verified 04/07/21 17:15 [From BACTRIM] trimethoprim [From BACTRIM] Allergy Unknown ITCHING Verified 04/07/21 17:15 arithromiosin Allergy Unknown Unknown Uncoded 08/24/20 16:06 gluten Allergy Unknown Unknown Uncoded 08/24/20 16:06 sea food Allergy Unknown Unknown Uncoded 08/24/20 16:06 Sulfacet-R Allergy Unknown Unknown Uncoded 08/24/20 16:06 SEAFOOD AdvReac Unknown VOMIT Uncoded 06/07/20 15:47 Review of Systems Review of Systems: Constitutional: +Fever (subjective), + Chills ENT/Mouth: No sore throat, No Rhinorrhea, No Swallowing Difficulty Eyes: No Eye Pain, No Swelling, No Redness Cardiovascular: No Chest Pain, No SOB, No Orthopnea, + Edema Respiratory: No Cough, No Sputum, No Wheezing, No dyspnea Gastrointestinal: + Nausea, No Vomiting, No Diarrhea, No abdominal Pain, No Hematochezia, No Melena Genitourinary: No Dysuria, No Urinary Frequency, No Hematuria Musculoskeletal: No joint pain, No Myalgias Skin: + Skin Lesions, + rash Neuro: No Weakness, No Numbness, No Dizziness, No Headache Psych: + Anxiety/Panic, + Depression , No SI Heme/Lymph: No Bruising, No Lymphadenopathy Endocrine: No Polyuria, No Polydipsia PMFSH Past Medical History Medical History Opioid dependence Substance abuse Substance abuse Social History Social History Household Members: None Housing: Other Housing Other:: patient states she is homeless Do you presently have visiting nurse or other home services: No Unable to assess alcohol history related to: Unknown Alcohol intake: current Alcohol intake frequency: does not drink Patient Tobacco Use Status: Current everyday Tobacco user Tobacco use type: Cigarette Cigarette Packs Per Day: 0 Cigarettes Per Day: 3 Years Smoked: 10 Second Hand Smoke Exposure: No Substance Use Type: Crack/Cocaine and Heroin Advance Directives: Yes Advance Directives on File: Yes Advance Directives Date on File: 04/03/21 service: No Current occupational status: unemployed Physical Exam Vital Signs: Vital Signs: Last Vital Signs Temp 97.8 F 04/07/21 20:09 Pulse 75 04/07/21 20:09 Resp 18 04/07/21 20:09 BP 107/61 04/07/21 20:09 Pulse Ox 99 04/07/21 20:09 Body Mass Index 25.8 Appearance: Alert. Oriented X3. Tearful Eyes: Pupils equal, round and reactive to light. ENT: Pharynx normal. Neck: Normal inspection. Neck supple. CVS: Normal heart rate and rhythm. Pulses normal. Respiratory: No respiratory distress. Breath sounds normal. Abdomen: Soft and nontender. +BS x4 Skin: Skin warm and dry. Normal skin color. Normal skin turgor. No rashes. Extremities: right dorsal forearm with erythema, tenderness and warmth with central cavity from prior abscess drainage and packing, indurated area extends to volar side, almost circumfrential to the forearm with moderate swelling. left dorsal forearm with 6xcm area of erythma, warmth and tenderness proximal to the wrist, no central area of fluctuance Neuro: Oriented X 3. No motor deficit. No sensory deficit. Course Course Course Narrative: 41 y/o female with active IVDA, right forearm abscess with MRSA bacteremia diagnosed 04/03 who presents back to the ER after leaving AMA yesterday with ongoing arm pain, shaking chills, and nausea. VS are stable on arrival. She is tearful and remorseful about leaving the hospital. She is saying she wants to get sober for her 5 and 7 year old children and she knows her that her drug use is killing her. Will repeat blood cultures, give IV vancomycin and get RUE u/s to r/o DVT. Will need to be admitted. Reevaluation(s) Reevaluation #1: No UE DVT. No signs of severe sepsis. Will admit for ongoing treatment of MRSA bacteremia and cellulitis. Dr. Scott to admit. Consultations Consultation #1: Rigo Valdivia PA-C recommending hydrogen peroxide and warm water soaks to the arm TID - will see tomorrow. Medical Decision Making Lab Data Result diagrams: 04/07/21 18:33 04/07/21 18:33 Labs: Lab Results 04/07/21 04/07/21 04/07/21 Range/Units 18:32 18:32 18:32 WBC (4.8-10.8) X10*3/uL RBC (4.20-5.50) X10*6/uL Hgb (12.0-16.0) g/dl Hct (37-47) % MCV (80-98) fL MCH (27.0-33.0) pg MCHC (31.0-35.0) g/dl RDW (11.0-16.0) % Plt Count (160-400) X10*3/uL MPV (9.4-12.3) fL Immature Gran % (Auto) (0.0-0.4) % Neut % (Auto) (45-73) % Lymph % (Auto) (20-40) % [place] % (Auto) (2-11) % Eos % (Auto) (0-4) % Baso % (Auto) (0-2) % Lymph # (Auto) (1.2-4.9) X10*3/uL [place] # (Auto) (0.1-1.2) X10*3/uL Eos # (Auto) (0.0-0.4) X10*3/uL Baso # (Auto) (0.0-0.2) X10*3/uL Abs Immat Gran (auto) (0.00-0.03) X10*3/uL Absolute Neuts (auto) (2.0-8.3) X10*3/uL Absolute Nucleated RBC (0.0-0.012) X10*3/uL Nucleated RBC % (auto) (0.0-0.2) /100WBC ESR (0-20) MM/HR PT (9.9-13.0) SEC INR (0.9-1.1) APTT (24.1-38.0) SEC Lactic Acid (0.5-2.0) mmol/L Total Creatine Kinase (26-140) U/L Urine Color YELLOW Urine Appearance HAZY Urine pH 6.0 (5.0-8.0) Ur Specific [place] 1.020 (1.005-1.025) Urine Protein TRACE (NEG-TRACE) MG/DL Urine Glucose (UA) NEG (NEG) MG/DL Urine Ketones NEG (NEG) MG/DL Urine Blood NEG (NEG) Urine Nitrite NEG (NEG) Ur Leukocyte Esterase 2+ H (NEG) Urine RBC 1-4 (0) /HPF Urine WBC 5-9 H (0-4) /HPF Ur Squamous Epith Cells 4+ /LPF Urine Bacteria 2+ /LPF Granular Casts 0-2 /LPF Urine Test NEGATIVE (NEGATIVE) Urine Opiates Screen POSITIVE H (Not Detect) Ur Barbiturates Screen Not Detected (Not Detect) Ur Phencyclidine Scrn Not Detected (Not Detect) Ur Amphetamines Screen Not Detected (Not Detect) U Benzodiazepines Scrn POSITIVE H (Not Detect) Urine Cocaine Screen POSITIVE H (Not Detect) U Marijuana (THC) Screen Not Detected (Not Detect) Ethyl Alcohol mg/dL COVID-19 (ZACK) (Negative) COVID-19 Clin Com 04/07/21 04/07/21 04/07/21 Range/Units 18:33 18:33 18:33 WBC 6.0 (4.8-10.8) X10*3/uL RBC 3.81 L (4.20-5.50) X10*6/uL Hgb 11.5 L (12.0-16.0) g/dl Hct 34.5 L (37-47) % MCV 90.6 (80-98) fL MCH 30.2 (27.0-33.0) pg MCHC 33.3 (31.0-35.0) g/dl RDW 13.1 (11.0-16.0) % Plt Count 226 D (160-400) X10*3/uL MPV 9.6 (9.4-12.3) fL Immature Gran % (Auto) 0.5 H (0.0-0.4) % Neut % (Auto) 58.2 (45-73) % Lymph % (Auto) 32.2 (20-40) % [place] % (Auto) 6.3 (2-11) % Eos % (Auto) 2.3 (0-4) % Baso % (Auto) 0.5 (0-2) % Lymph # (Auto) 1.9 (1.2-4.9) X10*3/uL [place] # (Auto) 0.4 (0.1-1.2) X10*3/uL Eos # (Auto) 0.1 (0.0-0.4) X10*3/uL Baso # (Auto) 0.0 (0.0-0.2) X10*3/uL Abs Immat Gran (auto) 0.03 (0.00-0.03) X10*3/uL Absolute Neuts (auto) 3.5 (2.0-8.3) X10*3/uL Absolute Nucleated RBC 0.000 (0.0-0.012) X10*3/uL Nucleated RBC % (auto) 0.0 (0.0-0.2) /100WBC ESR 28 H (0-20) MM/HR PT 13.0 (9.9-13.0) SEC INR 1.1 (0.9-1.1) APTT 35.1 D (24.1-38.0) SEC Lactic Acid (0.5-2.0) mmol/L Total Creatine Kinase (26-140) U/L Urine Color Urine Appearance Urine pH (5.0-8.0) Ur Specific [place] (1.005-1.025) Urine Protein (NEG-TRACE) MG/DL Urine Glucose (UA) (NEG) MG/DL Urine Ketones (NEG) MG/DL Urine Blood (NEG) Urine Nitrite (NEG) Ur Leukocyte Esterase (NEG) Urine RBC (0) /HPF Urine WBC (0-4) /HPF Ur Squamous Epith Cells /LPF Urine Bacteria /LPF Granular Casts /LPF Urine Test (NEGATIVE) Urine Opiates Screen (Not Detect) Ur Barbiturates Screen (Not Detect) Ur Phencyclidine Scrn (Not Detect) Ur Amphetamines Screen (Not Detect) U Benzodiazepines Scrn (Not Detect) Urine Cocaine Screen (Not Detect) U Marijuana (THC) Screen (Not Detect) Ethyl Alcohol mg/dL COVID-19 (ZACK) (Negative) COVID-19 Clin Com 04/07/21 04/07/21 04/07/21 Range/Units 18:33 18:33 18:33 WBC (4.8-10.8) X10*3/uL RBC (4.20-5.50) X10*6/uL Hgb (12.0-16.0) g/dl Hct (37-47) % MCV (80-98) fL MCH (27.0-33.0) pg MCHC (31.0-35.0) g/dl RDW (11.0-16.0) % Plt Count (160-400) X10*3/uL MPV (9.4-12.3) fL Immature Gran % (Auto) (0.0-0.4) % Neut % (Auto) (45-73) % Lymph % (Auto) (20-40) % [place] % (Auto) (2-11) % Eos % (Auto) (0-4) % Baso % (Auto) (0-2) % Lymph # (Auto) (1.2-4.9) X10*3/uL [place] # (Auto) (0.1-1.2) X10*3/uL Eos # (Auto) (0.0-0.4) X10*3/uL Baso # (Auto) (0.0-0.2) X10*3/uL Abs Immat Gran (auto) (0.00-0.03) X10*3/uL Absolute Neuts (auto) (2.0-8.3) X10*3/uL Absolute Nucleated RBC (0.0-0.012) X10*3/uL Nucleated RBC % (auto) (0.0-0.2) /100WBC ESR (0-20) MM/HR PT (9.9-13.0) SEC INR (0.9-1.1) APTT (24.1-38.0) SEC Lactic Acid 0.9 (0.5-2.0) mmol/L Total Creatine Kinase (26-140) U/L Urine Color Urine Appearance Urine pH (5.0-8.0) Ur Specific [place] (1.005-1.025) Urine Protein (NEG-TRACE) MG/DL Urine Glucose (UA) (NEG) MG/DL Urine Ketones (NEG) MG/DL Urine Blood (NEG) Urine Nitrite (NEG) Ur Leukocyte Esterase (NEG) Urine RBC (0) /HPF Urine WBC (0-4) /HPF Ur Squamous Epith Cells /LPF Urine Bacteria /LPF Granular Casts /LPF Urine Test (NEGATIVE) Urine Opiates Screen (Not Detect) Ur Barbiturates Screen (Not Detect) Ur Phencyclidine Scrn (Not Detect) Ur Amphetamines Screen (Not Detect) U Benzodiazepines Scrn (Not Detect) Urine Cocaine Screen (Not Detect) U Marijuana (THC) Screen (Not Detect) Ethyl Alcohol < 10 mg/dL COVID-19 (ZACK) Negative (Negative) COVID-19 Clin Com See Note 04/07/21 Range/Units 20:32 WBC (4.8-10.8) X10*3/uL RBC (4.20-5.50) X10*6/uL Hgb (12.0-16.0) g/dl Hct (37-47) % MCV (80-98) fL MCH (27.0-33.0) pg MCHC (31.0-35.0) g/dl RDW (11.0-16.0) % Plt Count (160-400) X10*3/uL MPV (9.4-12.3) fL Immature Gran % (Auto) (0.0-0.4) % Neut % (Auto) (45-73) % Lymph % (Auto) (20-40) % [place] % (Auto) (2-11) % Eos % (Auto) (0-4) % Baso % (Auto) (0-2) % Lymph # (Auto) (1.2-4.9) X10*3/uL [place] # (Auto) (0.1-1.2) X10*3/uL Eos # (Auto) (0.0-0.4) X10*3/uL Baso # (Auto) (0.0-0.2) X10*3/uL Abs Immat Gran (auto) (0.00-0.03) X10*3/uL Absolute Neuts (auto) (2.0-8.3) X10*3/uL Absolute Nucleated RBC (0.0-0.012) X10*3/uL Nucleated RBC % (auto) (0.0-0.2) /100WBC ESR (0-20) MM/HR PT (9.9-13.0) SEC INR (0.9-1.1) APTT (24.1-38.0) SEC Lactic Acid (0.5-2.0) mmol/L Total Creatine Kinase 201 H D (26-140) U/L Urine Color Urine Appearance Urine pH (5.0-8.0) Ur Specific [place] (1.005-1.025) Urine Protein (NEG-TRACE) MG/DL Urine Glucose (UA) (NEG) MG/DL Urine Ketones (NEG) MG/DL Urine Blood (NEG) Urine Nitrite (NEG) Ur Leukocyte Esterase (NEG) Urine RBC (0) /HPF Urine WBC (0-4) /HPF Ur Squamous Epith Cells /LPF Urine Bacteria /LPF Granular Casts /LPF Urine Test (NEGATIVE) Urine Opiates Screen (Not Detect) Ur Barbiturates Screen (Not Detect) Ur Phencyclidine Scrn (Not Detect) Ur Amphetamines Screen (Not Detect) U Benzodiazepines Scrn (Not Detect) Urine Cocaine Screen (Not Detect) U Marijuana (THC) Screen (Not Detect) Ethyl Alcohol mg/dL COVID-19 (ZACK) (Negative) COVID-19 Clin Com Critical Care Time Critical Care Time Critical Care Time: Yes Total Critical Care Time: 39 Attestation: I have personally provided critical care time exclusive of time spent on separately billable procedures. Time includes review of lab data, radiology results, discussion with consultants, and monitoring for potential decompensation. Intervention performed as documented. Discharge Plan Discharge Clinical Impression: MRSA bacteremia, Abscess, Intravenous drug abuse Patient Disposition: Admitted As Inpatient Prescriptions: No Action methadone 10 mg/mL Concentrate 90 mg PO DAILY RF: 0 buspirone 30 mg tablet 30 mg PO BID 7 Days Qty: 14 RF: 0 lamotrigine 25 mg tablet 50 mg PO DAILY 14 Days Qty: 28 RF: 0 propranolol 20 mg tablet 20 mg PO Q6H PRN (Reason: hypertension) 7 Days Qty: 28 RF: 0 topiramate 200 mg tablet 200 mg PO DAILY 7 Days Qty: 7 RF: 0 gabapentin 800 mg tablet 800 mg PO TID 7 Days Qty: 21 RF: 0 multivitamin [Daily-Angle] Tablet 1 tab PO DAILY RF: 0 cyanocobalamin (vitamin B-12) [Vitamin B-12] 1,000 mcg tablet 1,000 mcg PO DAILY RF: 0 hydroxyzine pamoate 50 mg capsule 1 cap PO NEEDED PRN (Reason: anxiety) RF: 0 aspirin 81 mg tablet,chewable 80 mg PO DAILY RF: 0 diclofenac sodium 50 mg tablet,delayed release (DR/EC) 50 mg PO TID PRN (Reason: Pain) RF: 0 loratadine 10 mg tablet 10 mg PO DAILY RF: 0 zolpidem 5 mg tablet 5 mg PO BEDTIME PRN (Reason: Insomnia) RF: 0 diazepam 5 mg tablet 1 tab PO TID RF: 0
[2021-04-07] MEDS: 0.9 % Sodium Chloride 1,000 ML 999 ML IVCONT (18:25)
[2021-04-07] MEDS: cefTRIAXone sodium 1 GM in 0.9 % Sodium Chloride 50 ML IV (18:25)
[2021-04-07 18:47] LABS: Basophils Percent Auto 0.5 % (0-2); Eosinophils Absolute Auto 0.1 X10*3/uL (0.0-0.4); Eosinophils Percent Auto 2.3 % (0-4); Hematocrit 34.5 % (37-47); Hemoglobin 11.5 g/dl (12.0-16.0); Imm Gran Abs Auto 0.03 X10*3/uL (0.00-0.03); Imm Gran Pct Auto 0.5 % (0.0-0.4); Lymphocytes Absolute Auto 1.9 X10*3/uL (1.2-4.9); Lymphocytes Percent Auto 32.2 % (20-40); MANUAL DIFF FLAG NO; Mean Corpuscular HGB Conc 33.3 g/dl (31.0-35.0); Mean Corpuscular Hemoglobin 30.2 pg (27.0-33.0); Mean Corpuscular Volume 90.6 fL (80-98); Mean Platelet Volume 9.6 fL (9.4-12.3); Monocytes Absolute Auto 0.4 X10*3/uL (0.1-1.2); Monocytes Percent Auto 6.3 % (2-11); Neutrophils Absolute Auto 3.5 X10*3/uL (2.0-8.3); Neutrophils Percent Auto 58.2 % (45-73); Platelet Count 226 X10*3/uL (160-400); Red Blood Count 3.81 X10*6/uL (4.20-5.50); Red Cell Distribution Width 13.1 % (11.0-16.0)
[2021-04-07 18:53] LABS: INTERNATIONAL NORM RATIO 1.1 (0.9-1.1)
[2021-04-07 18:55] LABS: Glucose Urine UA NEG (NEG); Leukocyte Esterase Urine 2+ (NEG); Nitrite Urine NEG (NEG); UACC Culture Trigger YES; Urine Blood NEG (NEG); Urine Ketones NEG (NEG); Urine Protein TRACE MG/DL (NEG-TRACE)
[2021-04-07 18:56] LABS: Partial Thromboplastin Time 35.1 SEC (24.1-38.0)
[2021-04-07 18:56] LABS: Appearance Urine HAZY; Color Urine YELLOW
[2021-04-07 18:57] LABS: UPreg QC Valid YES; Urine Pregnancy NEGATIVE (NEGATIVE)
[2021-04-07 19:09] LABS: COVID-19 Test Negative (Negative)
[2021-04-07 19:09] LABS: Bacteria Urine 2+ /LPF; Granular Casts Urine 0-2 /LPF; Squamous Epithelial Cell Urine 4+ /LPF
[2021-04-07 19:22] LABS: Lactic Acid 0.9 mmol/L (0.5-2.0)
[2021-04-07 19:24] LABS: Ethanol < 10 mg/dL
[2021-04-07 19:26] LABS: Amphetamine Screen Urine Not Detected (Not Detect); Barbiturates, Urine Not Detected (Not Detect); Benzodiazepines Screen Urine POSITIVE (Not Detect); Cannabinoid Screen Urine Not Detected (Not Detect); Cocaine Screen Urine POSITIVE (Not Detect); Opiate Screen Urine POSITIVE (Not Detect); Phencyclidine Screen Urine Not Detected (Not Detect)
[2021-04-07 19:27] LABS: Erythrocyte Sedimentation Rate 28 MM/HR (0-20)
[2021-04-07] MEDS: vancomycin HCL 750 MG in 0.9 % Sodium Chloride 250 ML 265 MG IV (19:35)
[2021-04-07 20:09] VITALS: BP 107/61; PULSE 75; RESP 18; TEMP 36.6; O2SAT 99
[2021-04-07] MEDS: Ketorolac Tromethamine 15 MG/ML VIAL 30 MG IVPUSH (20:12)
--- NOTE | 2021-04-07 21:02 | PC.NURSE ---
LAST DOSE MTD WAS AT THIS FACILITY 2 DAYS AGO AN ADJUNCT TO TREATMENT HERE. SHE IS NOT CURRENT AT A CLINIC, AND WAS NOT DOSED THIS AM. PHARMACY MADE AWARE, HOSPITALIST TO BE NOTIFIED.
[2021-04-07 21:15] LABS: Alanine Aminotransferase 27 U/L (0-31); Albumin Level 3.3 g/dL (3.5-5.0); Alkaline Phosphatase 102 U/L (39-117); Anion Gap 15 (12-20); Aspartate Amino Transferase 63 U/L (5-31); Bilirubin Direct 0.3 mg/dL (0.0-0.5); Bilirubin Total 0.7 mg/dL (0.0-1.0); Blood Urea Nitrogen 9 mg/dL (9-16); Calcium 8.4 mg/dL (8.4-10.2); Carbon Dioxide 22 mmol/L (22-29); Chloride 106 mmol/L (96-108); Creatinine Clr Calc Pharmacy 77.9; Estimated Glomerular Filt Rate > 60; Glucose Random 92 mg/dL (60-115); Magnesium 1.7 mg/dL (1.6-2.6); Potassium 4.1 mmol/L (3.3-5.1); Sodium 139 mmol/L (135-145); Total Protein 6.6 g/dL (6.5-8.0)
[2021-04-07 22:48] VITALS: BP 93/52; PULSE 67; RESP 16; TEMP 36.4; O2SAT 96
[2021-04-07 23:33] LABS: Troponin-I High Sensitivity < 3.5 ng/L (<3.5-17.0)
--- NOTE | 2021-04-07 23:58 | PM.IMHP ---
History of Present Illness Date of Service: 04/07/21 Chief Complaint: Abscess/cellulitis This is a 41-year-old female with past medical history of IV drug abuse who initially presents to the hospital on 04/03 with complaints of swelling on her right arm that appeared after she returned to the injecting heroin in that area. Patient underwent I&D 04/05 and was being treated for cellulitis as well as MRSA bacteremia but left AMA on 04/06. She returns now stating that she is feeling warts, has a recurrence of the same lump now on her left arm, she is feeling feverish, chills, significant pain at the side of I&D, reports nausea and poor oral intake. Patient was being treated with vancomycin and ceftriaxone prior to leaving AMA. On arrival to the ED patient vitals significant for temp of 97.8, heart rate of 63, respiratory rate of 14, blood pressure of 151/74, satting 98% on room air Labs are significant for WBC count of 6, hemoglobin of 11.5, ESR of 28, CPK of 201, UA that is positive for leukocyte Estrace and WBC, and urine drug screen that is positive for opioids, benzos, and cocaine Venous duplex of the right upper extremity shows no DVT Patient will be readmitted for management of is abscess/cellulitis/MRSA bacteremia Review of Systems Review of Systems: Yes all other systems are reviewed and are negative [facility] Medical History Opioid dependence Substance abuse Substance abuse Social History Household Members: None Housing: Other Housing Other:: patient states she is homeless Do you presently have visiting nurse or other home services: No Unable to assess alcohol history related to: Unknown Alcohol intake: current Alcohol intake frequency: does not drink Patient Tobacco Use Status: Current everyday Tobacco user Tobacco use type: Cigarette Cigarette Packs Per Day: 0 Cigarettes Per Day: 3 Years Smoked: 10 Second Hand Smoke Exposure: No Use of substances other than those prescribed or required for medical reasons: Yes Substance Use Type: IV Drugs Substance Use Frequency: Chronic Longstanding Last Used Substance: Just Prior to Admission Advance Directives: Yes Advance Directives on File: Yes Advance Directives Date on File: 04/03/21 service: No Current occupational status: unemployed Meds Allergies Allergy/AdvReac Type Severity Reaction Status Date / Time azithromycin [AZITHROMYCIN] Allergy Unknown UNK Verified 04/07/21 17:15 erythromycin base Allergy Unknown RASH Verified 04/07/21 17:15 [ERYTHROMYCIN BASE] olanzapine [From ZYPREXA] Allergy Unknown PEDAL EDEMA Verified 04/07/21 17:15 quetiapine [From SEROQUEL] Allergy Unknown THROAT Verified 04/07/21 17:15 SWELLING risperidone [From RISPERDAL] Allergy Unknown TWITCHING Verified 04/07/21 17:15 shellfish derived Allergy Unknown VOMITING Verified 04/07/21 17:15 [SHELLFISH DERIVED] sulfamethoxazole Allergy Unknown ITCHING Verified 04/07/21 17:15 [From BACTRIM] trimethoprim [From BACTRIM] Allergy Unknown ITCHING Verified 04/07/21 17:15 arithromiosin Allergy Unknown Unknown Uncoded 08/24/20 16:06 gluten Allergy Unknown Unknown Uncoded 08/24/20 16:06 sea food Allergy Unknown Unknown Uncoded 08/24/20 16:06 Sulfacet-R Allergy Unknown Unknown Uncoded 08/24/20 16:06 SEAFOOD AdvReac Unknown VOMIT Uncoded 06/07/20 15:47 Active Medications: Current Medications Generic Name Dose Route Start Last Admin Trade Name Freq PRN Reason Stop Dose Admin Acetaminophen 650 mg 04/07/21 22:48 Acetaminophen 325 Mg Tablet PO Q6H PRN Pain, Mild (Pain Scale 1-3) Aspirin 80 mg 04/08/21 09:00 Aspirin 81 Mg Tab.Chew PO DAILY [facility] Buspirone HCl 30 mg 04/08/21 09:00 Buspirone Hcl 10 Mg Tablet PO BID [facility] Cyanocobalamin 1,000 mcg 04/08/21 09:00 Cyanocobalamin (Vitamin B-12) 1,000 Mcg Tablet PO DAILY EDER Diazepam 5 mg 04/07/21 22:48 Diazepam 5 Mg Tablet PO TID EDER Docusate Sodium 100 mg 04/07/21 22:48 Docusate Sodium 100 Mg Capsule PO DAILY PRN Constipation Gabapentin 800 mg 04/07/21 22:48 Gabapentin 400 Mg Capsule PO TID [facility] Heparin Sodium (Porcine) 5,000 unit 04/07/21 22:48 Heparin Sodium,Porcine 5,000 Unit/Ml Vial SUBCUT BID [facility] Hydroxyzine HCl 50 mg 04/07/21 22:48 Hydroxyzine Hcl 50 Mg Tablet PO BID PRN anxiety Ceftriaxone Sodium 1 gm/ 50 mls @ 100 mls/hr 04/08/21 18:00 Sodium Chloride IV Q24H EDER Vancomycin HCl 750 mg/ Sodium 265 mls @ 265 mls/hr 04/08/21 07:00 Chloride IV Q12H EDER Lactated Ringer's 1,000 mls @ 999 mls/hr 04/07/21 23:00 Lr IV 04/08/21 00:00 .Q1H1M EDER Lamotrigine 50 mg 04/08/21 09:00 Lamotrigine 25 Mg Tablet PO DAILY [facility] Loratadine 10 mg 04/08/21 09:00 Loratadine 10 Mg Tablet PO DAILY [facility] Morphine Sulfate 4 mg 04/07/21 22:48 Morphine Sulfate 4 Mg/Ml Cartridge IVPUSH Q4H PRN Pain, Severe (Pain Scale 7-10) Multivitamins/Vitamin C 1 tab 04/08/21 09:00 Multivitamin Tablet PO DAILY [facility] Ondansetron HCl 4 mg 04/07/21 22:48 Ondansetron Hcl 4 Mg/2 Ml Vial IVPUSH Q8H PRN Nausea and Vomiting Pharmacy Consult 1 each 04/07/21 17:11 Consult Rx Perform Med Rec MISCELLANE ONCE PRN Consult order Pharmacy Consult 1 each 04/07/21 22:48 Consult Rx Vancomycin Dosing MISCELLANE DAILY PRN Consult order Propranolol HCl 20 mg 04/07/21 22:48 Propranolol Hcl 20 Mg Tablet PO Q6H PRN hypertension Protocol Topiramate 200 mg 04/08/21 09:00 Topiramate 100 Mg Tablet PO DAILY [facility] Zolpidem Tartrate 5 mg 04/07/21 22:48 Zolpidem Tartrate 5 Mg Tablet PO BEDTIME PRN Insomnia Home Medications Medication Instructions Recorded Confirmed Last Taken Type aspirin 80 mg PO DAILY 12/04/20 04/07/21 Unknown History cyanocobalamin (vitamin B-12) 1,000 mcg PO DAILY 12/04/20 04/07/21 Unknown History [Vitamin B-12] diclofenac sodium 50 mg PO TID PRN 12/04/20 04/07/21 Unknown History hydroxyzine pamoate 1 cap PO NEEDED PRN 12/04/20 04/07/21 Unknown History loratadine 10 mg PO DAILY 12/04/20 04/07/21 Unknown History multivitamin [Daily-Angle] 1 tab PO DAILY 12/04/20 04/07/21 Unknown History methadone 90 mg PO DAILY 12/23/20 04/03/21 12/20/20 History diazepam 1 tab PO TID 01/02/21 04/07/21 Unknown History zolpidem 5 mg PO BEDTIME PRN 01/02/21 04/07/21 Unknown History Physical Exam Vital Signs and Narrative: Vital Signs: Last Vital Signs Temp 97.5 F 04/07/21 22:48 Pulse 67 04/07/21 22:48 Resp 16 04/07/21 22:48 BP 93/52 L 04/07/21 22:48 Pulse Ox 96 04/07/21 22:48 Body Mass Index 25.8 Const: Other: Patient crying and is regretful for leaving AMA General: cooperative Orientation/consciousness: patient oriented x3 Eyes: General: appearance normal, both eyes and all related structures Pupils: Equal, round and reactive pupils present Resp: Effort & Inspection: normal respiratory effort and able to speak in complete sentences Cardio: Rate: regular rate Rhythm: regular rhythm GI: Palpation (GI): Soft to palpation Auscultation: normal bowel sounds Skin: General skin exam: no rashes or lesions noted Neuro: General: patient oriented x3 Cranial nerves: Yes Equal, round and reactive pupils present Cognition (Neuro): normal cognition Extrem: Other: Has dressing on the right arm, left arm has a swollen warm area on the middle forearm. No difficulty in range of motion of her wrist. Tender on touch General: Yes no pedal edema Results Labs CBC and Chem 7: 04/07/21 18:33 04/07/21 20:32 Labs: Laboratory Results - last 24 hr 04/07/21 04/07/21 04/07/21 18:32 18:32 18:32 MCV MCH MCHC RDW Plt Count MPV Immature Gran % (Auto) Neut % (Auto) Lymph % (Auto) [place] % (Auto) Eos % (Auto) Baso % (Auto) Lymph # (Auto) [place] # (Auto) Eos # (Auto) Baso # (Auto) Abs Immat Gran (auto) Absolute Neuts (auto) Absolute Nucleated RBC Nucleated RBC % (auto) ESR PT INR APTT Anion Gap Estim Creat Clear Calc Estimated GFR Random Glucose Lactic Acid Calcium Magnesium Total Bilirubin Direct Bilirubin AST ALT Alkaline Phosphatase Total Creatine Kinase Troponin I High Sens C-Reactive Protein Total Protein Albumin Urine Color YELLOW Urine Appearance HAZY Urine pH 6.0 Ur Specific [place] 1.020 Urine Protein TRACE Urine Glucose (UA) NEG Urine Ketones NEG Urine Blood NEG Urine Nitrite NEG Ur Leukocyte Esterase 2+ H Urine RBC 1-4 Urine WBC 5-9 H Ur Squamous Epith Cells 4+ Urine Bacteria 2+ Granular Casts 0-2 Urine Test NEGATIVE Urine Opiates Screen POSITIVE H Ur Barbiturates Screen Not Detected Ur Phencyclidine Scrn Not Detected Ur Amphetamines Screen Not Detected U Benzodiazepines Scrn POSITIVE H Urine Cocaine Screen POSITIVE H U Marijuana (THC) Screen Not Detected Ethyl Alcohol COVID-19 (ZACK) COVID-19 LYFE Kitchen 04/07/21 04/07/21 04/07/21 18:33 18:33 18:33 MCV 90.6 MCH 30.2 MCHC 33.3 RDW 13.1 Plt Count 226 D MPV 9.6 Immature Gran % (Auto) 0.5 H Neut % (Auto) 58.2 Lymph % (Auto) 32.2 [place] % (Auto) 6.3 Eos % (Auto) 2.3 Baso % (Auto) 0.5 Lymph # (Auto) 1.9 [place] # (Auto) 0.4 Eos # (Auto) 0.1 Baso # (Auto) 0.0 Abs Immat Gran (auto) 0.03 Absolute Neuts (auto) 3.5 Absolute Nucleated RBC 0.000 Nucleated RBC % (auto) 0.0 ESR 28 H PT 13.0 INR 1.1 APTT 35.1 D Anion Gap Estim Creat Clear Calc Estimated GFR Random Glucose Lactic Acid Calcium Magnesium Total Bilirubin Direct Bilirubin AST ALT Alkaline Phosphatase Total Creatine Kinase Troponin I High Sens C-Reactive Protein Total Protein Albumin Urine Color Urine Appearance Urine pH Ur Specific [place] Urine Protein Urine Glucose (UA) Urine Ketones Urine Blood Urine Nitrite Ur Leukocyte Esterase Urine RBC Urine WBC Ur Squamous Epith Cells Urine Bacteria Granular Casts Urine Test Urine Opiates Screen Ur Barbiturates Screen Ur Phencyclidine Scrn Ur Amphetamines Screen U Benzodiazepines Scrn Urine Cocaine Screen U Marijuana (THC) Screen Ethyl Alcohol COVID-19 (ZACK) COVID-19 Ask Ziggy Com 04/07/21 04/07/21 04/07/21 18:33 18:33 18:33 MCV MCH MCHC RDW Plt Count MPV Immature Gran % (Auto) Neut % (Auto) Lymph % (Auto) [place] % (Auto) Eos % (Auto) Baso % (Auto) Lymph # (Auto) [place] # (Auto) Eos # (Auto) Baso # (Auto) Abs Immat Gran (auto) Absolute Neuts (auto) Absolute Nucleated RBC Nucleated RBC % (auto) ESR PT INR APTT Anion Gap Estim Creat Clear Calc Estimated GFR Random Glucose Lactic Acid 0.9 Calcium Magnesium Total Bilirubin Direct Bilirubin AST ALT Alkaline Phosphatase Total Creatine Kinase Troponin I High Sens C-Reactive Protein Total Protein Albumin Urine Color Urine Appearance Urine pH Ur Specific [place] Urine Protein Urine Glucose (UA) Urine Ketones Urine Blood Urine Nitrite Ur Leukocyte Esterase Urine RBC Urine WBC Ur Squamous Epith Cells Urine Bacteria Granular Casts Urine Test Urine Opiates Screen Ur Barbiturates Screen Ur Phencyclidine Scrn Ur Amphetamines Screen U Benzodiazepines Scrn Urine Cocaine Screen U Marijuana (THC) Screen Ethyl Alcohol < 10 COVID-19 (ZACK) Negative COVID-19 Clin Com See Note 04/07/21 04/07/21 04/07/21 20:32 20:32 22:59 MCV MCH MCHC RDW Plt Count MPV Immature Gran % (Auto) Neut % (Auto) Lymph % (Auto) [place] % (Auto) Eos % (Auto) Baso % (Auto) Lymph # (Auto) [place] # (Auto) Eos # (Auto) Baso # (Auto) Abs Immat Gran (auto) Absolute Neuts (auto) Absolute Nucleated RBC Nucleated RBC % (auto) ESR PT INR APTT Anion Gap 15 Estim Creat Clear Calc 77.9 Estimated GFR > 60 Random Glucose 92 Lactic Acid Calcium 8.4 Magnesium 1.7 Total Bilirubin 0.7 Direct Bilirubin 0.3 AST 63 H ALT 27 Alkaline Phosphatase 102 Total Creatine Kinase 201 H D Troponin I High Sens < 3.5 C-Reactive Protein 0.30 Total Protein 6.6 Albumin 3.3 L Urine Color Urine Appearance Urine pH Ur Specific [place] Urine Protein Urine Glucose (UA) Urine Ketones Urine Blood Urine Nitrite Ur Leukocyte Esterase Urine RBC Urine WBC Ur Squamous Epith Cells Urine Bacteria Granular Casts Urine Test Urine Opiates Screen Ur Barbiturates Screen Ur Phencyclidine Scrn Ur Amphetamines Screen U Benzodiazepines Scrn Urine Cocaine Screen U Marijuana (THC) Screen Ethyl Alcohol COVID-19 (ZACK) COVID-19 Clin Com Imaging Radiologist's Impressions: Impressions Venous Duplex 04/07/21 17:11 IMPRESSION: No DVT demonstrated in the right upper extremity. Assessment and Plan (1) MRSA bacteremia: Status: Acute (2) Abscess: Status: Acute (3) Intravenous drug abuse: Status: Acute (4) Opioid use disorder, severe, dependence: Status: Acute (5) Cellulitis: Qualifiers: Laterality: right Site of cellulitis of extremity: upper extremity Status: Acute (6) UTI (urinary tract infection): Status: Acute This is a 41-year-old female with past medical history of IV drug who initially presented to the hospital on 04/03 with abscess, patient underwent I&D on 04/05 and was being treated for cellulitis/abscess and possible bacteremia but left AMA on 04/06. Returns today with worsening symptoms # MRSA bacteremia - cultures drawn on 04/03 positive for MRSA - patient was being treated with vancomycin- : Will continue - patient's cultures redrawn - will obtain echocardiogram to rule out endocarditis - infectious disease consulted # cellulitis/abscess - patient underwent abscess I&D on 04/05 - continue IV antibiotics as above - re-consult Orthopedic surgery for left arm with similar abscess # UTI - UA positive - urine culture showing E coli - will treat with ceftriaxone # IV drug use - continue her methadone DVT prophylaxis: Heparin subQ Quality Stroke Does the patient have a stroke diagnosis?: No VTE Prior VTE?: No VTE Risk Level:: Medical - moderate - high VTE Device Contraindication: Treatment Not Indicated VTE Drug Contraindication: N/A - Med Ordered
[2021-04-08] VITALS (11 sets, daily range): BP systolic 88–151; BP diastolic 39–66; PULSE 55–76; RESP 12–20; TEMP 36–36.6; O2SAT 92–100
[2021-04-08] MEDS: diazePAM 5 MG TABLET PO ×4 (00:41→20:13)
[2021-04-08] MEDS: Heparin Sodium,Porcine 5,000 UNIT/ML VIAL 5000 UNIT SUBCUT ×3 (00:41→20:13)
[2021-04-08] MEDS: Lactated Ringers 1,000 ML 999 ML IV ×3 (00:42→04:44)
[2021-04-08] MEDS: Gabapentin 400 MG CAPSULE 800 MG PO ×4 (00:42→20:13)
--- NOTE | 2021-04-08 07:30 | CA_ITS ---
Transthoracic Echocardiogram Patient (Last, First, Middle): Carlota Sebastian, Gender: Female Date of : 1980 Age: 41 Procedure Date: 04/08/2021 Procedure Type: Transthoracic Echocardiogram Location: [facility] [place] Height: 167.64 cm Weight: 72.58 kg BSA: 1.82 m2 Heart Rate: bpm BP: 101 / 64 mmHg Manager Technical Support: KERVIN/MICHELLE Referring MD: Sara Scott MD Fast Food Delivery Driver: Jaspreet Ko MD Symptoms: IV drug user with bacteremia Study Quality: Fair ECG Rhythm: Sinus Conclusions: - 1. Normal LV systolic and diastolic function 2. Mildly dilated left atrium 3. Possible vegetation on the septal leaflet of the tricuspid valve with trace to mild tricuspid regurgitation 4. Normal RV systolic pressure 5. No gross pericardial effusion Findings Left Ventricle Normal left ventricular size, thickness, and systolic function. The visually estimated ejection fraction is between 60-65%. Diastolic function is normal for age. Right Ventricle Normal right ventricular cavity size and systolic function. Atria The left atrium is mildly dilated. There is a mobile atrial septum noted. Interatrial shunt cannot be excluded. The right atrium is normal in size. Aortic Valve The aortic valve structure and function is likely normal. There is no aortic valve stenosis. There is no aortic valve regurgitation. Mitral Valve Normal mitral valve structure and function. There is no mitral valve regurgitation. There is no mitral valve stenosis. Tricuspid Valve Normal tricuspid valve structure. There is mild septal tricuspid leaflet thickening. There is trace tricuspid valve regurgitation. There is a small mobile mass on the septal tricuspid valve leaflet. The mass is consistent with possible vegetation. The right ventricular systolic pressure is normal. The right ventricular systolic pressure is 24 mmHg. Normal right atrial pressure. There is no evidence of pulmonary hypertension. Great Vessels All visible segments of the aorta are normal in size. The pulmonary artery was not well visualized. Venous The inferior vena cava is normal in size and collapses greater than 50% with inspiration. Pericardium/Pleural There is no evidence of pericardial effusion. Prior Study Comparison Previous study was nondiagnostic Recommendations, Care & Conclusions Consider a AVE if clinically appropriate. Recommend contrast study to evaluate intracardiac shunting. Measurements 2D Linear Measurements IVSd: 0.55 0.6-0.9/0.6-1.0 cm LVIDd: 5.40 3.9-5.3/4.2-5.9 cm LVIDd Index: 2.97 2.4-3.2/2.2-3.1 cm/m2 LVIDs: 3.98 2.0-3.6 cm LVPWd: 0.48 0.7-1.1 cm Ao Root: 2.70 2.1-3.5 cm LA Diam: 4.30 2.7-3.8/3.0-4.0 cm LAIDs Index: 2.36 1.5-2.3 cm/m2 LV Mass: 111.82 67-162/88-224 g LV Mass Index: 61.44 43-95/49-115 g/m2 LVOT Diam: 1.90 3.0+(-)1.3 cm Mitral Valve MV Pk E: 1.02 MV PK A: 0.42 MV Decel Time: 328.00 E/A: 2.40 E'Lateral: 14.40 E'Medial: 11.10 E/E' Med: 9.20 E/E' Lat: 7.10 PHT: 96.00 MVA PHT: 2.29 Decel Conecuh: 3.11 Aortic Valve AoV Pk Felipe: 1.54 AoV Mn Felipe: 1.12 AoV VTI: 0.37 AoV Pk Grad: 9.00 Aov Mn Grad: 6.00 DALJIT Cont.VTI: 2.05 LVOT LVOT Pk Felipe: 1.20 LVOT Mn Felipe: 0.81 LVOT VTI: 0.27 LVOT Pk Grad: 6.00 LVOT Mn Grad: 3.00 LVOT Diam: 1.90 LVOT Area: 2.84 Diastolic Function MV Pk E: 1.02 MV Pk A: 0.42 E/A: 2.40 E'Medial: 11.10 E/E' Med: 9.20 E' Laterial: 14.40 E/E' Lat: 7.10 Tricuspid Valve TR Pk Felipe: 1.97 TR Pk Grad: 16.00 RA Press: 8.00 RVSP: 24.00 Great Vessels Aorta Ao Root-2D: 2.70 2.0-3.7 cm Ao Asc: 3.00 2.1-3.4 cm Ao Arch: 2.30 Updated in Other Vendor System with Status of Final Jaspreet Ko MD electronically signed on 04/08/2021 3:41:55 PM with status of Final
--- NOTE | 2021-04-08 08:00 | P.EN_ITS ---
Event Note Date of Service: 04/08/21 Event Note: 41 yo female s/p Right forearm I&D 04/05/21- left AMA 04/06/21 retur hunter to ED 04/07/21 due to worsening pain -admitted to medical service -IV abx started -incision clean, no drainage, no surrounging erythema -there are some areas of increased pain and tension along the left dorsum of the wrist and just below the right elbow --will continue to observe these areas -full note to follow
--- NOTE | 2021-04-08 08:00 | PC.NURSE ---
called to give report to Jess BARKSDALE no answer will call back
[2021-04-08] MEDS: Loratadine 10 MG TABLET PO (08:13)
[2021-04-08] MEDS: busPIRone HCl 10 MG TABLET 30 MG PO ×2 (08:13→20:13)
[2021-04-08] MEDS: Cyanocobalamin (Vitamin B-12) 1,000 MCG TABLET 1000 MCG PO (08:14)
[2021-04-08] MEDS: Aspirin 81 MG TAB.CHEW 80 MG PO (08:14)
[2021-04-08] MEDS: Multivitamin TABLET 1 TAB PO (08:15)
[2021-04-08] MEDS: Morphine Sulfate 4 MG/ML CARTRIDGE 2 MG IVPUSH ×3 (08:15→17:29)
[2021-04-08] MEDS: Topiramate 100 MG TABLET 200 MG PO (08:15)
[2021-04-08] MEDS: vancomycin HCL 750 MG in 0.9 % Sodium Chloride 250 ML 265 MG IV ×2 (08:16→18:23)
[2021-04-08] MEDS: lamoTRIgine 25 MG TABLET 50 MG PO (08:43)
--- NOTE | 2021-04-08 09:11 | HO.PM.IMPN ---
Subjective Subjective Date of Service: 04/08/21 Interval History: Right arm cellulitis/sepsis status post I&D 2 days back and patient left AMA and now came back, substance abuse Review of Systems Patient still has right arm pain but she says the slightly better than before. She is also interested in methadone. Also patient cellulitis area seems little bit better Physical Exam Vital Signs: Vital Signs: Last Vital Signs Temp 97.7 F 04/08/21 00:44 Pulse 55 04/08/21 06:17 Resp 12 04/08/21 06:17 BP 101/64 04/08/21 06:17 Pulse Ox 98 04/08/21 06:17 Body Mass Index 25.8 Physical exam: Constitutional: appearance normal, both eyes and all related structures Pupils: Equal, round and reactive pupils present Resp: normal respiratory effort and able to speak in complete sentences Cardio: regular rate Rhythm: regular rhythm GI: Soft to palpation Auscultation: normal bowel sounds Skin: no rashes or lesions noted Neuro: patient oriented x3 Cranial nerves: Yes Equal, round and reactive pupils present Cognition (Neuro): normal cognition Extrem: Has dressing on the right arm, left arm has a swollen warm area on the middle forearm. No difficulty in range of motion of her wrist. Tender on touch Objective Data Current Medications Generic Name Dose Route Start Last Admin Trade Name Joie PRN Reason Stop Dose Admin Acetaminophen 650 mg 04/07/21 22:48 Acetaminophen 325 Mg Tablet PO Q6H PRN Pain, Mild (Pain Scale 1-3) Aspirin 80 mg 04/08/21 09:00 04/08/21 08:14 Aspirin 81 Mg Tab.Chew PO 80 mg DAILY EDER Administration Buspirone HCl 30 mg 04/08/21 09:00 04/08/21 08:13 Buspirone Hcl 10 Mg Tablet PO 30 mg BID EDER Administration Cyanocobalamin 1,000 mcg 04/08/21 09:00 04/08/21 08:14 Cyanocobalamin (Vitamin B-12) 1,000 Mcg Tablet PO 1,000 mcg DAILY EDER Administration Diazepam 5 mg 04/07/21 22:48 04/08/21 08:15 Diazepam 5 Mg Tablet PO 5 mg TID EDER Administration Docusate Sodium 100 mg 04/07/21 22:48 Docusate Sodium 100 Mg Capsule PO DAILY PRN Constipation Gabapentin 800 mg 04/07/21 22:48 04/08/21 08:13 Gabapentin 400 Mg Capsule PO 800 mg TID EDER Administration Heparin Sodium (Porcine) 5,000 unit 04/07/21 22:48 04/08/21 08:14 Heparin Sodium,Porcine 5,000 Unit/Ml Vial SUBCUT 5,000 unit BID EDER Administration Hydroxyzine HCl 50 mg 04/07/21 22:48 Hydroxyzine Hcl 50 Mg Tablet PO BID PRN anxiety Ceftriaxone Sodium 1 gm/ 50 mls @ 100 mls/hr 04/08/21 18:00 Sodium Chloride IV Q24H EDER Vancomycin HCl 750 mg/ Sodium 265 mls @ 265 mls/hr 04/08/21 07:00 04/08/21 08:16 Chloride IV 265 mls/hr Q12H EDER Administration Lamotrigine 50 mg 04/08/21 09:00 04/08/21 08:43 Lamotrigine 25 Mg Tablet PO 50 mg DAILY EDER Administration Loratadine 10 mg 04/08/21 09:00 04/08/21 08:13 Loratadine 10 Mg Tablet PO 10 mg DAILY EDER Administration Morphine Sulfate 2 mg 04/08/21 05:35 04/08/21 08:15 Morphine Sulfate 4 Mg/Ml Cartridge IVPUSH 2 mg Q4H PRN Administration Pain, Severe (Pain Scale 7-10) Multivitamins/Vitamin C 1 tab 04/08/21 09:00 04/08/21 08:15 Multivitamin Tablet PO 1 tab DAILY EDER Administration Ondansetron HCl 4 mg 04/07/21 22:48 Ondansetron Hcl 4 Mg/2 Ml Vial IVPUSH Q8H PRN Nausea and Vomiting Pharmacy Consult 1 each 04/07/21 17:11 Consult Rx Perform Med Rec MISCELLANE ONCE PRN Consult order Pharmacy Consult 1 each 04/07/21 22:48 Consult Rx Vancomycin Dosing MISCELLANE DAILY PRN Consult order Propranolol HCl 20 mg 04/07/21 22:48 Propranolol Hcl 20 Mg Tablet PO Q6H PRN hypertension Protocol Topiramate 200 mg 04/08/21 09:00 04/08/21 08:15 Topiramate 100 Mg Tablet PO 200 mg DAILY EDER Administration Zolpidem Tartrate 5 mg 04/07/21 22:48 Zolpidem Tartrate 5 Mg Tablet PO BEDTIME PRN Insomnia Labs CBC & Chem 7: 04/08/21 09:05 04/08/21 09:05 Labs: Laboratory Results - last 24 hr 04/07/21 04/07/21 04/07/21 18:32 18:32 18:32 WBC RBC Hgb Hct MCV MCH MCHC RDW Plt Count MPV Immature Gran % (Auto) Neut % (Auto) Lymph % (Auto) [place] % (Auto) Eos % (Auto) Baso % (Auto) Lymph # (Auto) [place] # (Auto) Eos # (Auto) Baso # (Auto) Abs Immat Gran (auto) Absolute Neuts (auto) Absolute Nucleated RBC Nucleated RBC % (auto) ESR PT INR APTT Sodium Potassium Chloride Carbon Dioxide Anion Gap BUN Creatinine Estim Creat Clear Calc Estimated GFR Random Glucose Lactic Acid Calcium Magnesium Total Bilirubin Direct Bilirubin AST ALT Alkaline Phosphatase Total Creatine Kinase Troponin I High Sens C-Reactive Protein Total Protein Albumin Urine Color YELLOW Urine Appearance HAZY Urine pH 6.0 Ur Specific [place] 1.020 Urine Protein TRACE Urine Glucose (UA) NEG Urine Ketones NEG Urine Blood NEG Urine Nitrite NEG Ur Leukocyte Esterase 2+ H Urine RBC 1-4 Urine WBC 5-9 H Ur Squamous Epith Cells 4+ Urine Bacteria 2+ Granular Casts 0-2 Urine Test NEGATIVE Urine Opiates Screen POSITIVE H Ur Barbiturates Screen Not Detected Ur Phencyclidine Scrn Not Detected Ur Amphetamines Screen Not Detected U Benzodiazepines Scrn POSITIVE H Urine Cocaine Screen POSITIVE H U Marijuana (THC) Screen Not Detected Ethyl Alcohol COVID-19 (ZACK) COVID-19 Clin Com 04/07/21 04/07/21 04/07/21 18:33 18:33 18:33 WBC 6.0 RBC 3.81 L Hgb 11.5 L Hct 34.5 L MCV 90.6 MCH 30.2 MCHC 33.3 RDW 13.1 Plt Count 226 D MPV 9.6 Immature Gran % (Auto) 0.5 H Neut % (Auto) 58.2 Lymph % (Auto) 32.2 [place] % (Auto) 6.3 Eos % (Auto) 2.3 Baso % (Auto) 0.5 Lymph # (Auto) 1.9 [place] # (Auto) 0.4 Eos # (Auto) 0.1 Baso # (Auto) 0.0 Abs Immat Gran (auto) 0.03 Absolute Neuts (auto) 3.5 Absolute Nucleated RBC 0.000 Nucleated RBC % (auto) 0.0 ESR 28 H PT 13.0 INR 1.1 APTT 35.1 D Sodium Potassium Chloride Carbon Dioxide Anion Gap BUN Creatinine Estim Creat Clear Calc Estimated GFR Random Glucose Lactic Acid Calcium Magnesium Total Bilirubin Direct Bilirubin AST ALT Alkaline Phosphatase Total Creatine Kinase Troponin I High Sens C-Reactive Protein Total Protein Albumin Urine Color Urine Appearance Urine pH Ur Specific [place] Urine Protein Urine Glucose (UA) Urine Ketones Urine Blood Urine Nitrite Ur Leukocyte Esterase Urine RBC Urine WBC Ur Squamous Epith Cells Urine Bacteria Granular Casts Urine Test Urine Opiates Screen Ur Barbiturates Screen Ur Phencyclidine Scrn Ur Amphetamines Screen U Benzodiazepines Scrn Urine Cocaine Screen U Marijuana (THC) Screen Ethyl Alcohol COVID-19 (ZACK) COVID-19 [facility] Com 04/07/21 04/07/21 04/07/21 18:33 18:33 18:33 WBC RBC Hgb Hct MCV MCH MCHC RDW Plt Count MPV Immature Gran % (Auto) Neut % (Auto) Lymph % (Auto) [place] % (Auto) Eos % (Auto) Baso % (Auto) Lymph # (Auto) [place] # (Auto) Eos # (Auto) Baso # (Auto) Abs Immat Gran (auto) Absolute Neuts (auto) Absolute Nucleated RBC Nucleated RBC % (auto) ESR PT INR APTT Sodium Potassium Chloride Carbon Dioxide Anion Gap BUN Creatinine Estim Creat Clear Calc Estimated GFR Random Glucose Lactic Acid 0.9 Calcium Magnesium Total Bilirubin Direct Bilirubin AST ALT Alkaline Phosphatase Total Creatine Kinase Troponin I High Sens C-Reactive Protein Total Protein Albumin Urine Color Urine Appearance Urine pH Ur Specific [place] Urine Protein Urine Glucose (UA) Urine Ketones Urine Blood Urine Nitrite Ur Leukocyte Esterase Urine RBC Urine WBC Ur Squamous Epith Cells Urine Bacteria Granular Casts Urine Test Urine Opiates Screen Ur Barbiturates Screen Ur Phencyclidine Scrn Ur Amphetamines Screen U Benzodiazepines Scrn Urine Cocaine Screen U Marijuana (THC) Screen Ethyl Alcohol < 10 COVID-19 (ZACK) Negative COVID-19 [facility] Com See Note 04/07/21 04/07/21 04/07/21 20:32 20:32 22:59 WBC RBC Hgb Hct MCV MCH MCHC RDW Plt Count MPV Immature Gran % (Auto) Neut % (Auto) Lymph % (Auto) [place] % (Auto) Eos % (Auto) Baso % (Auto) Lymph # (Auto) [place] # (Auto) Eos # (Auto) Baso # (Auto) Abs Immat Gran (auto) Absolute Neuts (auto) Absolute Nucleated RBC Nucleated RBC % (auto) ESR PT INR APTT Sodium 139 Potassium 4.1 Chloride 106 Carbon Dioxide 22 Anion Gap 15 BUN 9 Creatinine 0.95 Estim Creat Clear Calc 77.9 Estimated GFR > 60 Random Glucose 92 Lactic Acid Calcium 8.4 Magnesium 1.7 Total Bilirubin 0.7 Direct Bilirubin 0.3 AST 63 H ALT 27 Alkaline Phosphatase 102 Total Creatine Kinase 201 H D Troponin I High Sens < 3.5 C-Reactive Protein 0.30 Total Protein 6.6 Albumin 3.3 L Urine Color Urine Appearance Urine pH Ur Specific [place] Urine Protein Urine Glucose (UA) Urine Ketones Urine Blood Urine Nitrite Ur Leukocyte Esterase Urine RBC Urine WBC Ur Squamous Epith Cells Urine Bacteria Granular Casts Urine Test Urine Opiates Screen Ur Barbiturates Screen Ur Phencyclidine Scrn Ur Amphetamines Screen U Benzodiazepines Scrn Urine Cocaine Screen U Marijuana (THC) Screen Ethyl Alcohol COVID-19 (ZACK) COVID-19 Clin Com Quality Stroke Does the patient have a stroke diagnosis?: No VTE Prior VTE?: No VTE Risk Level:: Medical - moderate - high VTE Device Contraindication: Treatment Not Indicated VTE Drug Contraindication: N/A - Med Ordered Assessment and Plan (1) MRSA bacteremia: Status: Acute (2) Abscess: Status: Acute Assessment and Plan: 41-year-old female with past medical history of IV drug who initially presented to the hospital on 04/03 with abscess, patient underwent I&D on 04/05 and was being treated for cellulitis/abscess and possible bacteremia but left AMA on 04/06. Returns today with worsening symptoms 1. MRSA bacteremia - cultures drawn on 04/03 positive for MRSA - patient was being treated with vancomycin - patient's cultures redrawn - will obtain echocardiogram to rule out endocarditis - infectious disease consulted 2. cellulitis/abscess - patient underwent abscess I&D on 04/05 - continue IV antibiotics as above - re-consult Orthopedic surgery for left arm with similar abscess: As per Ortho of the all continue to monitor the area currently recommended continue antibiotic therapy. 3. UTI - UA positive - urine culture showing E coli - will treat with ceftriaxone 4. IV drug use Psych called- placed her methadone Will adjust morphine low-dose. DVT prophylaxis: Heparin subQ
[2021-04-08 09:13] LABS: Basophils Percent Auto 0.5 % (0-2); Eosinophils Absolute Auto 0.1 X10*3/uL (0.0-0.4); Eosinophils Percent Auto 3.6 % (0-4); Hematocrit 32.6 % (37-47); Hemoglobin 10.5 g/dl (12.0-16.0); Lymphocytes Percent Auto 46.8 % (20-40); MANUAL DIFF FLAG SCAN; Mean Corpuscular HGB Conc 32.2 g/dl (31.0-35.0); Mean Corpuscular Hemoglobin 29.7 pg (27.0-33.0); Mean Corpuscular Volume 92.4 fL (80-98); Mean Platelet Volume 9.4 fL (9.4-12.3); Monocytes Absolute Auto 0.2 X10*3/uL (0.1-1.2); Monocytes Percent Auto 9.5 % (2-11); Neutrophils Absolute Auto 0.9 X10*3/uL (2.0-8.3); Neutrophils Percent Auto 39.6 % (45-73); Platelet Count 156 X10*3/uL (160-400); Red Blood Count 3.53 X10*6/uL (4.20-5.50); Red Cell Distribution Width 13.3 % (11.0-16.0); SCAN SMEAR FLAG 1
[2021-04-08 09:15] LABS: White Blood Count 2.2 X10*3/uL (4.8-10.8)
--- NOTE | 2021-04-08 09:37 | PC.NURSE ---
PT AMB TO [facility] INDECENTLY, IV ACCESS ESTABLISH VIA ULTRASOUND BY DR QUEEN IN LEFT AC. REPORT GIVEN TO BANDAR BARKSDALE
[2021-04-08 09:50] LABS: Anion Gap 11 (12-20); Blood Urea Nitrogen 7 mg/dL (9-16); Calcium 8.6 mg/dL (8.4-10.2); Carbon Dioxide 27 mmol/L (22-29); Chloride 107 mmol/L (96-108); Creatinine Clr Calc Pharmacy 89.2; Estimated Glomerular Filt Rate > 60; Glucose Random 106 mg/dL (60-115); Potassium 3.8 mmol/L (3.3-5.1); Sodium 141 mmol/L (135-145)
[2021-04-08 09:52] LABS: SLIDE REVIEW VERIFIED
--- NOTE | 2021-04-08 11:38 | MHC.CM.PN ---
CM met with Patient at bedside. Patient is homeless and her goal for dc is an inpatient drug rehab setting; Patient will need a Care Team Consult. Methadone was restarted here; Patient had been going to [facility] in [place].Patient's Mother/Sarita is her HCP and PCP is Dr. Cici Corey. CM has initiated and will follow for dc planning.
--- NOTE | 2021-04-08 12:19 | MHC.RECOVRN ---
Met with pt to discuss substance use and desire to restart methadone. Pt had been started last admission, last dose on 04/06, 30 mg. Pt would like to reconnect with [facility]. Pt reports using heroin, IV, 1 pack daily; cocaine, IV, $1000 daily. Pt reports being prescribed and taking diazepam, 5 mg TID from PCP at [facility] in [place]. Pt would like to go to a residential program after dc. Pt reports having [facility] and [facility] workers helping find placement. Case discussed with Liset Brambila APRN. Will continue to follow.
--- NOTE | 2021-04-08 16:28 | HO.ADDICT_ITS ---
History of Present Illness Date of Service: 04/08/2021 Chief Complaint: Cellulitis/Abscess Reason for Consult: OUD Requesting physician: Poli Deshpande Discussed with referring provider: Yes Sources of Information: patient interviewed and chart reviewed HPI Narrative: Patient with history of opioid use disorder and cocaine use disorder, currently medically admitted with right arm cellulitis. Patient seen by this conventional underwriter last week and methadone was started, patient then left against medical advice over the weekend and returned 1 day later. Seen this morning in her room with recovery support RN, patient awake alert pleasant and engaged in interview. Reporting some anxiety and requesting to restart methadone. Past Psychiatric History: extensive Medical Evaluation Reviewed: Yes Review of Systems Constitutional: Reports body ache(s) and Reports malaise Gastrointestinal: Reports nausea and Denies vomiting Musculoskeletal: Reports myalgias Psychiatric: Reports anxiety and Reports depression Diagnostics Vital Signs (24Hr): Vital Signs - 24 hr 04/07/21 17:15 04/07/21 20:09 04/07/21 22:48 Temperature 98.4 F 97.8 F 97.5 F Pulse Rate 90 75 67 Respiratory Rate 18 18 16 Blood Pressure 117/60 107/61 93/52 L Pulse Oximetry 98 99 96 04/08/21 00:44 04/08/21 02:26 04/08/21 02:54 Temperature 97.7 F Pulse Rate 71 68 66 Respiratory Rate 13 15 Blood Pressure 93/52 L 88/39 L 95/56 L Pulse Oximetry 97 97 97 04/08/21 04:22 04/08/21 04:27 04/08/21 06:17 Temperature Pulse Rate 58 59 55 Respiratory Rate 16 17 12 Blood Pressure 89/50 L 94/50 L 101/64 Pulse Oximetry 98 97 98 04/08/21 10:26 04/08/21 15:10 Temperature 97.8 F 96.8 F Pulse Rate 65 60 Respiratory Rate 20 20 Blood Pressure 132/61 151/66 H Pulse Oximetry 100 92 Body Mass Index 25.8 Labs Results: 04/08/21 09:05 04/08/21 09:05 Labs: Laboratory Results - last 48 hr 04/07/21 04/07/21 04/07/21 18:32 18:32 18:32 WBC RBC Hgb Hct MCV MCH MCHC RDW Plt Count MPV Immature Gran % (Auto) Neut % (Auto) Lymph % (Auto) [place] % (Auto) Eos % (Auto) Baso % (Auto) Lymph # (Auto) [place] # (Auto) Eos # (Auto) Baso # (Auto) Abs Immat Gran (auto) Absolute Neuts (auto) Absolute Nucleated RBC Nucleated RBC % (auto) Smear Tech's Comments ESR PT INR APTT Sodium Potassium Chloride Carbon Dioxide Anion Gap BUN Creatinine Estim Creat Clear Calc Estimated GFR Random Glucose Lactic Acid Calcium Magnesium Total Bilirubin Direct Bilirubin AST ALT Alkaline Phosphatase Total Creatine Kinase Troponin I High Sens C-Reactive Protein Total Protein Albumin Urine Color YELLOW Urine Appearance HAZY Urine pH 6.0 Ur Specific [place] 1.020 Urine Protein TRACE Urine Glucose (UA) NEG Urine Ketones NEG Urine Blood NEG Urine Nitrite NEG Ur Leukocyte Esterase 2+ H Urine RBC 1-4 Urine WBC 5-9 H Ur Squamous Epith Cells 4+ Urine Bacteria 2+ Granular Casts 0-2 Urine Test NEGATIVE Urine Opiates Screen POSITIVE H Ur Barbiturates Screen Not Detected Ur Phencyclidine Scrn Not Detected Ur Amphetamines Screen Not Detected U Benzodiazepines Scrn POSITIVE H Urine Cocaine Screen POSITIVE H U Marijuana (THC) Screen Not Detected Ethyl Alcohol COVID-19 (ZACK) COVID-19 Clin Com 04/07/21 04/07/21 04/07/21 18:33 18:33 18:33 WBC 6.0 RBC 3.81 L Hgb 11.5 L Hct 34.5 L MCV 90.6 MCH 30.2 MCHC 33.3 RDW 13.1 Plt Count 226 D MPV 9.6 Immature Gran % (Auto) 0.5 H Neut % (Auto) 58.2 Lymph % (Auto) 32.2 [place] % (Auto) 6.3 Eos % (Auto) 2.3 Baso % (Auto) 0.5 Lymph # (Auto) 1.9 [place] # (Auto) 0.4 Eos # (Auto) 0.1 Baso # (Auto) 0.0 Abs Immat Gran (auto) 0.03 Absolute Neuts (auto) 3.5 Absolute Nucleated RBC 0.000 Nucleated RBC % (auto) 0.0 Smear Tech's Comments ESR 28 H PT 13.0 INR 1.1 APTT 35.1 D Sodium Potassium Chloride Carbon Dioxide Anion Gap BUN Creatinine Estim Creat Clear Calc Estimated GFR Random Glucose Lactic Acid Calcium Magnesium Total Bilirubin Direct Bilirubin AST ALT Alkaline Phosphatase Total Creatine Kinase Troponin I High Sens C-Reactive Protein Total Protein Albumin Urine Color Urine Appearance Urine pH Ur Specific [place] Urine Protein Urine Glucose (UA) Urine Ketones Urine Blood Urine Nitrite Ur Leukocyte Esterase Urine RBC Urine WBC Ur Squamous Epith Cells Urine Bacteria Granular Casts Urine Test Urine Opiates Screen Ur Barbiturates Screen Ur Phencyclidine Scrn Ur Amphetamines Screen U Benzodiazepines Scrn Urine Cocaine Screen U Marijuana (THC) Screen Ethyl Alcohol COVID-19 (ZACK) COVID-19 Clin Com 04/07/21 04/07/21 04/07/21 18:33 18:33 18:33 WBC RBC Hgb Hct MCV MCH MCHC RDW Plt Count MPV Immature Gran % (Auto) Neut % (Auto) Lymph % (Auto) [place] % (Auto) Eos % (Auto) Baso % (Auto) Lymph # (Auto) [place] # (Auto) Eos # (Auto) Baso # (Auto) Abs Immat Gran (auto) Absolute Neuts (auto) Absolute Nucleated RBC Nucleated RBC % (auto) Smear Tech's Comments ESR PT INR APTT Sodium Potassium Chloride Carbon Dioxide Anion Gap BUN Creatinine Estim Creat Clear Calc Estimated GFR Random Glucose Lactic Acid 0.9 Calcium Magnesium Total Bilirubin Direct Bilirubin AST ALT Alkaline Phosphatase Total Creatine Kinase Troponin I High Sens C-Reactive Protein Total Protein Albumin Urine Color Urine Appearance Urine pH Ur Specific [place] Urine Protein Urine Glucose (UA) Urine Ketones Urine Blood Urine Nitrite Ur Leukocyte Esterase Urine RBC Urine WBC Ur Squamous Epith Cells Urine Bacteria Granular Casts Urine Test Urine Opiates Screen Ur Barbiturates Screen Ur Phencyclidine Scrn Ur Amphetamines Screen U Benzodiazepines Scrn Urine Cocaine Screen U Marijuana (THC) Screen Ethyl Alcohol < 10 COVID-19 (ZACK) Negative COVID-19 Clin Com See Note 04/07/21 04/07/21 04/07/21 20:32 20:32 22:59 WBC RBC Hgb Hct MCV MCH MCHC RDW Plt Count MPV Immature Gran % (Auto) Neut % (Auto) Lymph % (Auto) [place] % (Auto) Eos % (Auto) Baso % (Auto) Lymph # (Auto) [place] # (Auto) Eos # (Auto) Baso # (Auto) Abs Immat Gran (auto) Absolute Neuts (auto) Absolute Nucleated RBC Nucleated RBC % (auto) Smear Tech's Comments ESR PT INR APTT Sodium 139 Potassium 4.1 Chloride 106 Carbon Dioxide 22 Anion Gap 15 BUN 9 Creatinine 0.95 Estim Creat Clear Calc 77.9 Estimated GFR > 60 Random Glucose 92 Lactic Acid Calcium 8.4 Magnesium 1.7 Total Bilirubin 0.7 Direct Bilirubin 0.3 AST 63 H ALT 27 Alkaline Phosphatase 102 Total Creatine Kinase 201 H D Troponin I High Sens < 3.5 C-Reactive Protein 0.30 Total Protein 6.6 Albumin 3.3 L Urine Color Urine Appearance Urine pH Ur Specific [place] Urine Protein Urine Glucose (UA) Urine Ketones Urine Blood Urine Nitrite Ur Leukocyte Esterase Urine RBC Urine WBC Ur Squamous Epith Cells Urine Bacteria Granular Casts Urine Test Urine Opiates Screen Ur Barbiturates Screen Ur Phencyclidine Scrn Ur Amphetamines Screen U Benzodiazepines Scrn Urine Cocaine Screen U Marijuana (THC) Screen Ethyl Alcohol COVID-19 (ZACK) COVID-19 Clin Com 04/08/21 04/08/21 09:05 09:05 WBC 2.2 L RBC 3.53 L Hgb 10.5 L Hct 32.6 L MCV 92.4 MCH 29.7 MCHC 32.2 RDW 13.3 Plt Count 156 L D MPV 9.4 Immature Gran % (Auto) 0.0 Neut % (Auto) 39.6 L Lymph % (Auto) 46.8 H [place] % (Auto) 9.5 Eos % (Auto) 3.6 Baso % (Auto) 0.5 Lymph # (Auto) 1.0 L [place] # (Auto) 0.2 Eos # (Auto) 0.1 Baso # (Auto) 0.0 Abs Immat Gran (auto) 0.00 Absolute Neuts (auto) 0.9 L Absolute Nucleated RBC 0.000 Nucleated RBC % (auto) 0.0 Smear Tech's Comments VERIFIED ESR PT INR APTT Sodium 141 Potassium 3.8 Chloride 107 Carbon Dioxide 27 Anion Gap 11 L BUN 7 L Creatinine 0.83 Estim Creat Clear Calc 89.2 Estimated GFR > 60 Random Glucose 106 Lactic Acid Calcium 8.6 Magnesium Total Bilirubin Direct Bilirubin AST ALT Alkaline Phosphatase Total Creatine Kinase Troponin I High Sens C-Reactive Protein Total Protein Albumin Urine Color Urine Appearance Urine pH Ur Specific [place] Urine Protein Urine Glucose (UA) Urine Ketones Urine Blood Urine Nitrite Ur Leukocyte Esterase Urine RBC Urine WBC Ur Squamous Epith Cells Urine Bacteria Granular Casts Urine Test Urine Opiates Screen Ur Barbiturates Screen Ur Phencyclidine Scrn Ur Amphetamines Screen U Benzodiazepines Scrn Urine Cocaine Screen U Marijuana (THC) Screen Ethyl Alcohol COVID-19 (ZACK) COVID-19 Clin Com Imaging Radiology Impressions: ITS Impressions Venous Duplex 04/07/21 17:11 IMPRESSION: No DVT demonstrated in the right upper extremity. Mental Status Exam Mental Status Exam Patient Appearance: Well Grooomed and Appropriate Patient Orientation: Person, Place, Time and Situation Level of Consciousness: Awake, Appropriate and Alert Patient Behavior: Appropriate Mood Description: Appropriate Affect Description: Appropriate and Anxious Ability to Follow Directions: Excellent Speech Pattern: Clear Memory Description: Intact Delusions: Not Present Thought Content: positive for Circumstantial Depressive Symptoms: Increased Anxiety, Feelings of Worthlessness and Hopelessness Judgement: Fair Medications Medications Current Medications Generic Name Dose Route Start Last Admin Trade Name Freq PRN Reason Stop Dose Admin Acetaminophen 650 mg 04/07/21 22:48 Acetaminophen 325 Mg Tablet PO Q6H PRN Pain, Mild (Pain Scale 1-3) Aspirin 80 mg 04/08/21 09:00 04/08/21 08:14 Aspirin 81 Mg Tab.Chew PO 80 mg DAILY EDER Administration Buspirone HCl 30 mg 04/08/21 09:00 04/08/21 08:13 Buspirone Hcl 10 Mg Tablet PO 30 mg BID EDER Administration Cyanocobalamin 1,000 mcg 04/08/21 09:00 04/08/21 08:14 Cyanocobalamin (Vitamin B-12) 1,000 Mcg Tablet PO 1,000 mcg DAILY EDER Administration Diazepam 5 mg 04/07/21 22:48 04/08/21 13:45 Diazepam 5 Mg Tablet PO 5 mg TID EDER Administration Docusate Sodium 100 mg 04/07/21 22:48 Docusate Sodium 100 Mg Capsule PO DAILY PRN Constipation Gabapentin 800 mg 04/07/21 22:48 04/08/21 13:45 Gabapentin 400 Mg Capsule PO 800 mg TID EDER Administration Heparin Sodium (Porcine) 5,000 unit 04/07/21 22:48 04/08/21 08:14 Heparin Sodium,Porcine 5,000 Unit/Ml Vial SUBCUT 5,000 unit BID EDER Administration Hydroxyzine HCl 50 mg 04/07/21 22:48 Hydroxyzine Hcl 50 Mg Tablet PO BID PRN anxiety Ceftriaxone Sodium 1 gm/ 50 mls @ 100 mls/hr 04/08/21 18:00 Sodium Chloride IV Q24H EDER Vancomycin HCl 750 mg/ Sodium 265 mls @ 265 mls/hr 04/08/21 07:00 04/08/21 10:27 Chloride IV Infused Q12H EDER Infusion Lamotrigine 50 mg 04/08/21 09:00 04/08/21 08:43 Lamotrigine 25 Mg Tablet PO 50 mg DAILY EDER Administration Loratadine 10 mg 04/08/21 09:00 04/08/21 08:13 Loratadine 10 Mg Tablet PO 10 mg DAILY EDER Administration Methadone HCl 30 mg 04/08/21 12:45 04/08/21 13:45 Methadone Hcl 1 Mg/0.1 Ml Oral.Conc PO 30 mg DAILY EDER Administration Morphine Sulfate 2 mg 04/08/21 12:48 Morphine Sulfate 4 Mg/Ml Cartridge IVPUSH Q8H PRN Pain, Severe (Pain Scale 7-10) Multivitamins/Vitamin C 1 tab 04/08/21 09:00 04/08/21 08:15 Multivitamin Tablet PO 1 tab DAILY EDER Administration Ondansetron HCl 4 mg 04/07/21 22:48 Ondansetron Hcl 4 Mg/2 Ml Vial IVPUSH Q8H PRN Nausea and Vomiting Pharmacy Consult 1 each 04/07/21 17:11 Consult Rx Perform Med Rec MISCELLANE ONCE PRN Consult order Pharmacy Consult 1 each 04/07/21 22:48 Consult Rx Vancomycin Dosing MISCELLANE DAILY PRN Consult order Propranolol HCl 20 mg 04/07/21 22:48 Propranolol Hcl 20 Mg Tablet PO Q6H PRN hypertension Protocol Topiramate 200 mg 04/08/21 09:00 04/08/21 08:15 Topiramate 100 Mg Tablet PO 200 mg DAILY EDER Administration Zolpidem Tartrate 5 mg 04/07/21 22:48 Zolpidem Tartrate 5 Mg Tablet PO BEDTIME PRN Insomnia Allergies Allergies Allergy/AdvReac Type Severity Reaction Status Date / Time azithromycin [AZITHROMYCIN] Allergy Unknown UNK Verified 04/07/21 17:15 erythromycin base Allergy Unknown RASH Verified 04/07/21 17:15 [ERYTHROMYCIN BASE] olanzapine [From ZYPREXA] Allergy Unknown PEDAL EDEMA Verified 04/07/21 17:15 quetiapine [From SEROQUEL] Allergy Unknown THROAT Verified 04/07/21 17:15 SWELLING risperidone [From RISPERDAL] Allergy Unknown TWITCHING Verified 04/07/21 17:15 shellfish derived Allergy Unknown VOMITING Verified 04/07/21 17:15 [SHELLFISH DERIVED] sulfamethoxazole Allergy Unknown ITCHING Verified 04/07/21 17:15 [From BACTRIM] trimethoprim [From BACTRIM] Allergy Unknown ITCHING Verified 04/07/21 17:15 arithromiosin Allergy Unknown Unknown Uncoded 08/24/20 16:06 gluten Allergy Unknown Unknown Uncoded 08/24/20 16:06 sea food Allergy Unknown Unknown Uncoded 08/24/20 16:06 Sulfacet-R Allergy Unknown Unknown Uncoded 08/24/20 16:06 SEAFOOD AdvReac Unknown VOMIT Uncoded 06/07/20 15:47 Assessment & Plan Assessment & Plan (1) Opioid use disorder, severe, dependence: Status: Acute Code(s): F11.20 - Opioid dependence, uncomplicated Recommendations: * Methadone 30 mg ordered for today * Will titrate dose as necessary, as patient reports she wants to continue this post hospitalization * Recovery support team will continue to follow 40 minutes spent with patient and coordinating care. Greater than 50% of the session was spent on counseling and/or coordination of care PMFSH Past Medical History Medical History Opioid dependence Substance abuse Substance abuse Social History Social History Household Members: Unknown / Unable to assess Housing: Other Housing Other:: patient states she is homeless Do you presently have visiting nurse or other home services: No Unable to assess alcohol history related to: Unknown Alcohol intake: current Alcohol intake frequency: does not drink Patient Tobacco Use Status: Current everyday Tobacco user Tobacco use type: Cigarette Cigarette Packs Per Day: 0 Cigarettes Per Day: 3 Years Smoked: 10 Second Hand Smoke Exposure: No Use of substances other than those prescribed or required for medical reasons: Yes Substance Use Type: Crack/Cocaine and Heroin Substance Use Frequency: Chronic Longstanding Last Used Substance: Just Prior to Admission Currently Displaying Signs/Symptoms of Drug Intoxication Withdrawal: No Advance Directives: Yes Advance Directives on File: Yes Advance Directives Date on File: 04/03/21 Do you have thoughts of harming others: None Do you have a plan to hurt others: No Plan Recently lost weight without trying: No Nutrition Risks: No Nutritional Risk service: No Current occupational status: disabled
[2021-04-08] MEDS: cefTRIAXone sodium 1 GM in 0.9 % Sodium Chloride 50 ML IV (17:30)
--- NOTE | 2021-04-08 21:15 | PC.NURSE ---
Went into room to assess pt upon arrival to 1900 shift. Pt lethargic, unarousable to name at first, had to shake to wake up. Speech slurred and somewhat incoherent. VSS, started to wake up more after talking for a minute claimed she was just tired. Asked if she had used anything she denied drug use. When checking her room her toilet was stuffed with paper towels and toilet paper, no bodily fluids noted. This RN went into room approx one hour later to check on her and reattach heart monitor leads to find room empty. Searched the floor, security notified, and nursing air traffic control supervisor notified, notified. PT still has IV in left AC, and heart monitor attached. Pt belongings stored in locked medication room. Continuing to look for patient.
--- NOTE | 2021-04-08 21:22 | W.PM.IDCN ---
History of Present Illness Data of Consult Service Date: 04/08/21 Requesting physician: Poli Deshpande Primary Care Provider: Unknown Physician HPI Reason for consult: MRSA bacteremia She presents to hospital with weakness and chills She left AMA yesterday and injected cocaine and heroin into left arm She has right arm infection and MRSA bacteremia She has no known endocarditis. Review of Systems Review of Systems: Yes all other systems are reviewed and are negative PMFSH Past Medical History Medical History Opioid dependence Substance abuse Substance abuse Family History Family history: reviewed and not pertinent Social History Social History Household Members: Unknown / Unable to assess Housing: Other Housing Other:: patient states she is homeless Do you presently have visiting nurse or other home services: No Unable to assess alcohol history related to: Unknown Alcohol intake: current Alcohol intake frequency: does not drink Patient Tobacco Use Status: Current everyday Tobacco user Tobacco use type: Cigarette Cigarette Packs Per Day: 0 Cigarettes Per Day: 3 Years Smoked: 10 Second Hand Smoke Exposure: No Use of substances other than those prescribed or required for medical reasons: Yes Substance Use Type: Crack/Cocaine and Heroin Substance Use Frequency: Chronic Longstanding Last Used Substance: Just Prior to Admission Currently Displaying Signs/Symptoms of Drug Intoxication Withdrawal: No Advance Directives: Yes Advance Directives on File: Yes Advance Directives Date on File: 04/03/21 Do you have thoughts of harming others: None Do you have a plan to hurt others: No Plan Recently lost weight without trying: No Nutrition Risks: No Nutritional Risk service: No Current occupational status: disabled Meds Allergies Allergy/AdvReac Type Severity Reaction Status Date / Time azithromycin [AZITHROMYCIN] Allergy Unknown UNK Verified 04/07/21 17:15 erythromycin base Allergy Unknown RASH Verified 04/07/21 17:15 [ERYTHROMYCIN BASE] olanzapine [From ZYPREXA] Allergy Unknown PEDAL EDEMA Verified 04/07/21 17:15 quetiapine [From SEROQUEL] Allergy Unknown THROAT Verified 04/07/21 17:15 SWELLING risperidone [From RISPERDAL] Allergy Unknown TWITCHING Verified 04/07/21 17:15 shellfish derived Allergy Unknown VOMITING Verified 04/07/21 17:15 [SHELLFISH DERIVED] sulfamethoxazole Allergy Unknown ITCHING Verified 04/07/21 17:15 [From BACTRIM] trimethoprim [From BACTRIM] Allergy Unknown ITCHING Verified 04/07/21 17:15 arithromiosin Allergy Unknown Unknown Uncoded 08/24/20 16:06 gluten Allergy Unknown Unknown Uncoded 08/24/20 16:06 sea food Allergy Unknown Unknown Uncoded 08/24/20 16:06 Sulfacet-R Allergy Unknown Unknown Uncoded 08/24/20 16:06 SEAFOOD AdvReac Unknown VOMIT Uncoded 06/07/20 15:47 Active Medications: Current Medications Generic Name Dose Route Start Last Admin Trade Name Freq PRN Reason Stop Dose Admin Acetaminophen 650 mg 04/07/21 22:48 Acetaminophen 325 Mg Tablet PO Q6H PRN Pain, Mild (Pain Scale 1-3) Aspirin 80 mg 04/08/21 09:00 04/08/21 08:14 Aspirin 81 Mg Tab.Chew PO 80 mg DAILY EDER Administration Buspirone HCl 30 mg 04/08/21 09:00 04/08/21 20:13 Buspirone Hcl 10 Mg Tablet PO 30 mg BID EDER Administration Cyanocobalamin 1,000 mcg 04/08/21 09:00 04/08/21 08:14 Cyanocobalamin (Vitamin B-12) 1,000 Mcg Tablet PO 1,000 mcg DAILY EDER Administration Diazepam 5 mg 04/07/21 22:48 04/08/21 20:13 Diazepam 5 Mg Tablet PO 5 mg TID EDER Administration Docusate Sodium 100 mg 04/07/21 22:48 Docusate Sodium 100 Mg Capsule PO DAILY PRN Constipation Gabapentin 800 mg 04/07/21 22:48 04/08/21 20:13 Gabapentin 400 Mg Capsule PO 800 mg TID EDER Administration Heparin Sodium (Porcine) 5,000 unit 04/07/21 22:48 04/08/21 20:13 Heparin Sodium,Porcine 5,000 Unit/Ml Vial SUBCUT 5,000 unit BID EDER Administration Hydroxyzine HCl 50 mg 04/07/21 22:48 Hydroxyzine Hcl 50 Mg Tablet PO BID PRN anxiety Ceftriaxone Sodium 1 gm/ 50 mls @ 100 mls/hr 04/08/21 18:00 04/08/21 18:04 Sodium Chloride IV Infused Q24H EDER Infusion Vancomycin HCl 750 mg/ Sodium 265 mls @ 265 mls/hr 04/08/21 07:00 04/08/21 20:14 Chloride IV Infused Q12H EDER Infusion Lamotrigine 50 mg 04/08/21 09:00 04/08/21 08:43 Lamotrigine 25 Mg Tablet PO 50 mg DAILY EDER Administration Loratadine 10 mg 04/08/21 09:00 04/08/21 08:13 Loratadine 10 Mg Tablet PO 10 mg DAILY EDER Administration Methadone HCl 30 mg 04/08/21 12:45 04/08/21 13:45 Methadone Hcl 1 Mg/0.1 Ml Oral.Conc PO 30 mg DAILY EDER Administration Morphine Sulfate 2 mg 04/08/21 12:48 04/08/21 17:29 Morphine Sulfate 4 Mg/Ml Cartridge IVPUSH 2 mg Q8H PRN Administration Pain, Severe (Pain Scale 7-10) Multivitamins/Vitamin C 1 tab 04/08/21 09:00 04/08/21 08:15 Multivitamin Tablet PO 1 tab DAILY EDER Administration Nicotine Polacrilex 2 mg 04/08/21 17:38 Nicotine Polacrilex 2 Mg Gum BUCCAL Q2H PRN smoker Ondansetron HCl 4 mg 04/07/21 22:48 Ondansetron Hcl 4 Mg/2 Ml Vial IVPUSH Q8H PRN Nausea and Vomiting Pharmacy Consult 1 each 04/07/21 17:11 Consult Rx Perform Med Rec MISCELLANE ONCE PRN Consult order Pharmacy Consult 1 each 04/07/21 22:48 Consult Rx Vancomycin Dosing MISCELLANE DAILY PRN Consult order Propranolol HCl 20 mg 04/07/21 22:48 Propranolol Hcl 20 Mg Tablet PO Q6H PRN hypertension Protocol Topiramate 200 mg 04/08/21 09:00 04/08/21 08:15 Topiramate 100 Mg Tablet PO 200 mg DAILY EDER Administration Zolpidem Tartrate 5 mg 04/07/21 22:48 Zolpidem Tartrate 5 Mg Tablet PO BEDTIME PRN Insomnia Home Medications Medication Instructions Recorded Confirmed Last Taken Type aspirin 80 mg PO DAILY 12/04/20 04/07/21 Unknown History cyanocobalamin (vitamin B-12) 1,000 mcg PO DAILY 12/04/20 04/07/21 Unknown History [Vitamin B-12] diclofenac sodium 50 mg PO TID PRN 12/04/20 04/07/21 Unknown History hydroxyzine pamoate 1 cap PO NEEDED PRN 12/04/20 04/07/21 Unknown History loratadine 10 mg PO DAILY 12/04/20 04/07/21 Unknown History multivitamin [Daily-Angle] 1 tab PO DAILY 12/04/20 04/07/21 Unknown History methadone 90 mg PO DAILY 12/23/20 04/03/21 12/20/20 History diazepam 1 tab PO TID 01/02/21 04/07/21 Unknown History zolpidem 5 mg PO BEDTIME PRN 01/02/21 04/07/21 Unknown History Physical Exam Vital Signs: Vital Signs: Last Vital Signs Temp 97.0 F 04/08/21 19:06 Pulse 69 04/08/21 19:06 Resp 20 04/08/21 19:06 BP 150/58 H 04/08/21 19:06 Pulse Ox 99 04/08/21 19:06 Body Mass Index 25.8 Const: General: cooperative HENMT: Head: Yes normal to inspection Mouth: Normal oral and palatal mucosa present Resp: Effort & Inspection: normal respiratory effort Cardio: Rate: regular rate Rhythm: regular rhythm GI: Palpation (GI): Soft to palpation and nontender Extrem: Other: bilateral arm erythema Results Labs CBC & Chem 7: 04/08/21 09:05 04/08/21 09:05 Labs: Short CBC 04/08/21 Range/Units 09:05 WBC 2.2 L (4.8-10.8) X10*3/uL Hgb 10.5 L (12.0-16.0) g/dl Hct 32.6 L (37-47) % Plt Count 156 L D (160-400) X10*3/uL BMP 04/08/21 09:05 Sodium 141 Potassium 3.8 Chloride 107 Carbon Dioxide 27 BUN 7 L Creatinine 0.83 Calcium 8.6 Microbiology Microbiology Results: Microbiology 04/07/21 18:32 Blood - Venous Blood Culture - Preliminary No growth after 24 hours. 04/07/21 18:33 Blood - Venous Blood Culture - Preliminary No growth after 24 hours. 04/07/21 18:58 Urine clean catch - Urine sheth top Urine Culture - Preliminary No growth to date. Assessment and Plan (1) MRSA bacteremia: Status: Acute There is concern over persistent MRSA bacteremia She went AMA. There is concern over nonimprovement of cellulitis Suggest Would continue Vancomycin Likely 4 weeks IV (2) Abscess: Status: Acute (3) Cellulitis: Qualifiers: Laterality: right Site of cellulitis of extremity: upper extremity Status: Acute
[2021-04-08] MEDS: Nicotine Polacrilex 2 MG GUM BUCCAL (22:52)
[2021-04-09] MEDS: Morphine Sulfate 4 MG/ML CARTRIDGE 2 MG IVPUSH ×3 (03:02→21:16)
[2021-04-09] MEDS: Nicotine Polacrilex 2 MG GUM BUCCAL ×7 (03:04→21:16)
[2021-04-09 04:00] VITALS: BP 111/61; PULSE 64; RESP 16; TEMP 36.8; O2SAT 99
[2021-04-09 06:06] LABS: Hematocrit 39.5 % (37-47); Hemoglobin 12.4 g/dl (12.0-16.0); Mean Corpuscular HGB Conc 31.4 g/dl (31.0-35.0); Mean Corpuscular Hemoglobin 29.8 pg (27.0-33.0); Mean Platelet Volume 9.6 fL (9.4-12.3); Platelet Count 212 X10*3/uL (160-400); Red Blood Count 4.16 X10*6/uL (4.20-5.50); Red Cell Distribution Width 13.4 % (11.0-16.0); White Blood Count 3.8 X10*3/uL (4.8-10.8)
[2021-04-09 06:39] LABS: Vancomycin Trough 6.8 mcg/mL (10.0-20.0)
[2021-04-09 06:43] LABS: Anion Gap 12 (12-20); Blood Urea Nitrogen 8 mg/dL (9-16); Calcium 9.2 mg/dL (8.4-10.2); Carbon Dioxide 26 mmol/L (22-29); Chloride 108 mmol/L (96-108); Estimated Glomerular Filt Rate > 60; Glucose Random 103 mg/dL (60-115); Potassium 4.4 mmol/L (3.3-5.1); Sodium 142 mmol/L (135-145)
[2021-04-09 07:44] VITALS: BP 103/55; PULSE 68; RESP 18; TEMP 35.9; O2SAT 100
--- NOTE | 2021-04-09 07:50 | PM.EVENT ---
Event Note Date of Service: 04/09/21 Event Note: Right arm abscess clean and dry no drainage -new areas of swelling are worsening, no fluctulance
--- NOTE | 2021-04-09 08:09 | HO.PM.IMPN ---
Subjective Subjective Date of Service: 04/09/21 Interval History: right arm cellulitis/abcess Review of Systems patient is a pain right arm denies any chest pain or Physical Exam Vital Signs: Vital Signs: Last Vital Signs Temp 96.7 F L 04/09/21 07:44 Pulse 68 04/09/21 07:44 Resp 18 04/09/21 07:44 BP 103/55 L 04/09/21 07:44 Pulse Ox 100 04/09/21 07:44 Body Mass Index 25.8 Constitutional: aox3, not in acute distress Resp: normal respiratory effort and able to speak in complete sentences Cardio: rrr, s1s2 heard GI: Soft to palpation Auscultation: normal bowel sounds Skin: no rashes or lesions noted Neuro: patient oriented x3 , nonfocal Extrem: has new area of swelling on forearms -worsening Objective Data Current Medications Generic Name Dose Route Start Last Admin Trade Name Freq PRN Reason Stop Dose Admin Acetaminophen 650 mg 04/07/21 22:48 Acetaminophen 325 Mg Tablet PO Q6H PRN Pain, Mild (Pain Scale 1-3) Aspirin 80 mg 04/08/21 09:00 04/08/21 08:14 Aspirin 81 Mg Tab.Chew PO 80 mg DAILY EDER Administration Buspirone HCl 30 mg 04/08/21 09:00 04/08/21 20:13 Buspirone Hcl 10 Mg Tablet PO 30 mg BID EDER Administration Cyanocobalamin 1,000 mcg 04/08/21 09:00 04/08/21 08:14 Cyanocobalamin (Vitamin B-12) 1,000 Mcg Tablet PO 1,000 mcg DAILY EDER Administration Diazepam 5 mg 04/07/21 22:48 04/08/21 20:13 Diazepam 5 Mg Tablet PO 5 mg TID EDER Administration Docusate Sodium 100 mg 04/07/21 22:48 Docusate Sodium 100 Mg Capsule PO DAILY PRN Constipation Gabapentin 800 mg 04/07/21 22:48 04/08/21 20:13 Gabapentin 400 Mg Capsule PO 800 mg TID EDER Administration Heparin Sodium (Porcine) 5,000 unit 04/07/21 22:48 04/08/21 20:13 Heparin Sodium,Porcine 5,000 Unit/Ml Vial SUBCUT 5,000 unit BID EDER Administration Hydroxyzine HCl 50 mg 04/07/21 22:48 Hydroxyzine Hcl 50 Mg Tablet PO BID PRN anxiety Ceftriaxone Sodium 1 gm/ 50 mls @ 100 mls/hr 04/08/21 18:00 04/08/21 18:04 Sodium Chloride IV Infused Q24H EDER Infusion Vancomycin HCl 1,000 mg/ 270 mls @ 270 mls/hr 04/09/21 07:00 Sodium Chloride IV Q12H EDER Lamotrigine 50 mg 04/08/21 09:00 04/08/21 08:43 Lamotrigine 25 Mg Tablet PO 50 mg DAILY EDER Administration Loratadine 10 mg 04/08/21 09:00 04/08/21 08:13 Loratadine 10 Mg Tablet PO 10 mg DAILY EDER Administration Methadone HCl 30 mg 04/08/21 12:45 04/08/21 13:45 Methadone Hcl 1 Mg/0.1 Ml Oral.Conc PO 30 mg DAILY EDER Administration Morphine Sulfate 2 mg 04/08/21 12:48 04/09/21 03:02 Morphine Sulfate 4 Mg/Ml Cartridge IVPUSH 2 mg Q8H PRN Administration Pain, Severe (Pain Scale 7-10) Multivitamins/Vitamin C 1 tab 04/08/21 09:00 04/08/21 08:15 Multivitamin Tablet PO 1 tab DAILY EDER Administration Nicotine Polacrilex 2 mg 04/08/21 17:38 04/09/21 05:57 Nicotine Polacrilex 2 Mg Gum BUCCAL 2 mg Q2H PRN Administration smoker Ondansetron HCl 4 mg 04/07/21 22:48 Ondansetron Hcl 4 Mg/2 Ml Vial IVPUSH Q8H PRN Nausea and Vomiting Pharmacy Consult 1 each 04/07/21 17:11 Consult Rx Perform Med Rec MISCELLANE ONCE PRN Consult order Pharmacy Consult 1 each 04/07/21 22:48 Consult Rx Vancomycin Dosing MISCELLANE DAILY PRN Consult order Propranolol HCl 20 mg 04/07/21 22:48 Propranolol Hcl 20 Mg Tablet PO Q6H PRN hypertension Protocol Topiramate 200 mg 04/08/21 09:00 04/08/21 08:15 Topiramate 100 Mg Tablet PO 200 mg DAILY EDER Administration Zolpidem Tartrate 5 mg 04/07/21 22:48 Zolpidem Tartrate 5 Mg Tablet PO BEDTIME PRN Insomnia Labs CBC & Chem 7: 04/09/21 05:49 04/09/21 05:49 Labs: Laboratory Results - last 24 hr 04/08/21 04/08/21 04/09/21 09:05 09:05 05:49 WBC 2.2 L RBC 3.53 L Hgb 10.5 L Hct 32.6 L MCV 92.4 MCH 29.7 MCHC 32.2 RDW 13.3 Plt Count 156 L D MPV 9.4 Immature Gran % (Auto) 0.0 Neut % (Auto) 39.6 L Lymph % (Auto) 46.8 H [place] % (Auto) 9.5 Eos % (Auto) 3.6 Baso % (Auto) 0.5 Lymph # (Auto) 1.0 L [place] # (Auto) 0.2 Eos # (Auto) 0.1 Baso # (Auto) 0.0 Abs Immat Gran (auto) 0.00 Absolute Neuts (auto) 0.9 L Absolute Nucleated RBC 0.000 Nucleated RBC % (auto) 0.0 Smear Tech's Comments VERIFIED Sodium 141 Potassium 3.8 Chloride 107 Carbon Dioxide 27 Anion Gap 11 L BUN 7 L Creatinine 0.83 Estim Creat Clear Calc 89.2 Estimated GFR > 60 Random Glucose 106 Calcium 8.6 Vancomycin Trough 6.8 L 04/09/21 04/09/21 05:49 05:49 WBC 3.8 L RBC 4.16 L Hgb 12.4 Hct 39.5 D MCV 95.0 MCH 29.8 MCHC 31.4 RDW 13.4 Plt Count 212 D MPV 9.6 Immature Gran % (Auto) Neut % (Auto) Lymph % (Auto) [place] % (Auto) Eos % (Auto) Baso % (Auto) Lymph # (Auto) [place] # (Auto) Eos # (Auto) Baso # (Auto) Abs Immat Gran (auto) Absolute Neuts (auto) Absolute Nucleated RBC 0.000 Nucleated RBC % (auto) 0.0 Smear Tech's Comments Sodium 142 Potassium 4.4 Chloride 108 Carbon Dioxide 26 Anion Gap 12 BUN 8 L Creatinine 0.85 Estim Creat Clear Calc 87.0 Estimated GFR > 60 Random Glucose 103 Calcium 9.2 D Vancomycin Trough Microbiology Microbiology Results: Microbiology 04/07/21 18:32 Blood Culture - Preliminary Blood - Venous No growth after 24 hours. 04/07/21 18:33 Blood Culture - Preliminary Blood - Venous No growth after 24 hours. 07/18/21 18:58 Urine Culture - Preliminary Urine clean catch - Urine sheth top No growth to date. Quality Stroke Does the patient have a stroke diagnosis?: No VTE Prior VTE?: No VTE Risk Level:: Medical - moderate - high VTE Device Contraindication: Treatment Not Indicated VTE Drug Contraindication: N/A - Med Ordered Assessment and Plan (1) MRSA bacteremia: Status: Acute (2) Abscess: Status: Acute Assessment and Plan: 41-year-old female with past medical history of IV drug who initially presented to the hospital on 04/03 with abscess, patient underwent I&D on 04/05 and was being treated for cellulitis/abscess and possible bacteremia but left AMA on 04/06. Returns today with worsening symptoms 1. MRSA bacteremia - cultures drawn on 04/03 positive for MRSA, echocardiogram , repeat blood culture pending continue treated with vancomycin Id eval 2. cellulitis/abscess - patient underwent abscess I&D on 04/05 - continue IV antibiotics as above - re-consult Orthopedic surgery -has new areas of worsening swelling in forearms, surgery saw the patient -continue iv vanco , surgery will reeval in am . CC 3. UTI - UA positive - urine culture showing E coli - will treat with ceftriaxone 4. IV drug use Psych called- placed her methadone Will adjust morphine low-dose.added small dose tramadol DVT prophylaxis: Heparin subQ
[2021-04-09] MEDS: busPIRone HCl 10 MG TABLET 30 MG PO ×2 (08:34→20:57)
[2021-04-09] MEDS: Topiramate 100 MG TABLET 200 MG PO (08:34)
[2021-04-09] MEDS: diazePAM 5 MG TABLET PO ×3 (08:34→20:57)
[2021-04-09] MEDS: Multivitamin TABLET 1 TAB PO (08:34)
[2021-04-09] MEDS: Aspirin 81 MG TAB.CHEW 80 MG PO (08:34)
[2021-04-09] MEDS: Heparin Sodium,Porcine 5,000 UNIT/ML VIAL 5000 UNIT SUBCUT ×2 (08:35→20:55)
[2021-04-09] MEDS: Gabapentin 400 MG CAPSULE 800 MG PO ×3 (08:35→20:57)
[2021-04-09] MEDS: lamoTRIgine 25 MG TABLET 50 MG PO (08:35)
[2021-04-09] MEDS: Cyanocobalamin (Vitamin B-12) 1,000 MCG TABLET 1000 MCG PO (08:35)
[2021-04-09] MEDS: Loratadine 10 MG TABLET PO (08:35)
[2021-04-09] MEDS: vancomycin HCL 1,000 MG in 0.9 % Sodium Chloride 250 ML 270 MG IV ×2 (08:35→20:54)
--- NOTE | 2021-04-09 10:48 | MHC.RECOVRN ---
Met with pt to collect soiled clothes (one outfit) and shoes (one pair) as pt had requested them to be washed. Pts clothes put in washer in [facility] Pod in ED. Upon t/w approach, pt was walking down the hallway as camera alarm was going off. T/w returned pt to room and adjusted camera as requested by staff. Pt angry that it's watching and listening to everything. Pt reported going for a walk last night to the [facility] when staff was unable to locate pt. Pt educated regarding safety and importance of staff knowing where pt is at all times. Pt requesting 10 mg increase in methadone, states the 30 isn't working. Pt visibly restless, anxious, and hyperverbal. Pt reporting pain in betweeen doses of morphine. Case discussed with Liset Brambila APRN.
[2021-04-09 11:12] VITALS: BP 119/70; PULSE 65; RESP 18; TEMP 36.9; O2SAT 100
[2021-04-09] MEDS: traMADoL HCL 50 MG TABLET 25 MG PO (12:54)
--- NOTE | 2021-04-09 14:00 | MHC.RECOVRN ---
T/w returned pts clean clothes to pts room. Pt asleep. Will continue to follow.
[2021-04-09 15:11] VITALS: BP 138/56; PULSE 65; RESP 20; TEMP 37.1; O2SAT 99
--- NOTE | 2021-04-09 15:21 | HO.ADDICTPRO ---
Subjective Subjective Date of Service: 04/09/21 Reason For Visit: Cellulitis/Abscess Interim History: Patient seen in follow up for OUD Started methadone yesterday with positive effect Patient appears quite comfortable when seen by this lyric writer but is reporting various sx and requesting increase in methadone dose Patient hyperverbal and tangential during interview, but redireactable Review of Systems Acute medical concerns: Yes Medical Review of Systems: unchanged Review of Systems: patient reporting nausea, vomiting and diarrhea, unclear if patient is being forthcoming about this as she did not appear to be in any discomfort and there is no other documentation supporting this. Diagnostics Vital Signs (24Hr): Vital Signs - 24 hr 04/08/21 19:06 04/08/21 21:49 04/08/21 23:12 Temperature 97.0 F 97.8 F 97.8 F Pulse Rate 69 76 69 Respiratory Rate 20 19 20 Blood Pressure 150/58 H 104/54 L 136/63 Pulse Oximetry 99 98 99 04/09/21 04:00 04/09/21 07:44 04/09/21 11:12 Temperature 98.2 F 96.7 F L 98.4 F Pulse Rate 64 68 65 Respiratory Rate 16 18 18 Blood Pressure 111/61 103/55 L 119/70 Pulse Oximetry 99 100 100 04/09/21 15:11 Temperature 98.8 F Pulse Rate 65 Respiratory Rate 20 Blood Pressure 138/56 L Pulse Oximetry 99 Body Mass Index 25.8 Labs Results: 04/09/21 05:49 04/09/21 05:49 Labs: Laboratory Results - last 48 hr 04/07/21 04/07/21 04/07/21 18:32 18:32 18:32 WBC RBC Hgb Hct MCV MCH MCHC RDW Plt Count MPV Immature Gran % (Auto) Neut % (Auto) Lymph % (Auto) [place] % (Auto) Eos % (Auto) Baso % (Auto) Lymph # (Auto) [place] # (Auto) Eos # (Auto) Baso # (Auto) Abs Immat Gran (auto) Absolute Neuts (auto) Absolute Nucleated RBC Nucleated RBC % (auto) Smear Tech's Comments Smear Path Review ESR PT INR APTT Sodium Potassium Chloride Carbon Dioxide Anion Gap BUN Creatinine Estim Creat Clear Calc Estimated GFR Random Glucose Lactic Acid Calcium Magnesium Total Bilirubin Direct Bilirubin AST ALT Alkaline Phosphatase Total Creatine Kinase Troponin I High Sens C-Reactive Protein Total Protein Albumin Urine Color YELLOW Urine Appearance HAZY Urine pH 6.0 Ur Specific [place] 1.020 Urine Protein TRACE Urine Glucose (UA) NEG Urine Ketones NEG Urine Blood NEG Urine Nitrite NEG Ur Leukocyte Esterase 2+ H Urine RBC 1-4 Urine WBC 5-9 H Ur Squamous Epith Cells 4+ Urine Bacteria 2+ Granular Casts 0-2 Urine Test NEGATIVE Vancomycin Trough Urine Opiates Screen POSITIVE H Ur Barbiturates Screen Not Detected Ur Phencyclidine Scrn Not Detected Ur Amphetamines Screen Not Detected U Benzodiazepines Scrn POSITIVE H Urine Cocaine Screen POSITIVE H U Marijuana (THC) Screen Not Detected Ethyl Alcohol COVID-19 (ZACK) COVID-19 Sightly Com 04/07/21 04/07/21 04/07/21 18:33 18:33 18:33 WBC 6.0 RBC 3.81 L Hgb 11.5 L Hct 34.5 L MCV 90.6 MCH 30.2 MCHC 33.3 RDW 13.1 Plt Count 226 D MPV 9.6 Immature Gran % (Auto) 0.5 H Neut % (Auto) 58.2 Lymph % (Auto) 32.2 [place] % (Auto) 6.3 Eos % (Auto) 2.3 Baso % (Auto) 0.5 Lymph # (Auto) 1.9 [place] # (Auto) 0.4 Eos # (Auto) 0.1 Baso # (Auto) 0.0 Abs Immat Gran (auto) 0.03 Absolute Neuts (auto) 3.5 Absolute Nucleated RBC 0.000 Nucleated RBC % (auto) 0.0 Smear Tech's Comments Smear Path Review ESR 28 H PT 13.0 INR 1.1 APTT 35.1 D Sodium Potassium Chloride Carbon Dioxide Anion Gap BUN Creatinine Estim Creat Clear Calc Estimated GFR Random Glucose Lactic Acid Calcium Magnesium Total Bilirubin Direct Bilirubin AST ALT Alkaline Phosphatase Total Creatine Kinase Troponin I High Sens C-Reactive Protein Total Protein Albumin Urine Color Urine Appearance Urine pH Ur Specific [place] Urine Protein Urine Glucose (UA) Urine Ketones Urine Blood Urine Nitrite Ur Leukocyte Esterase Urine RBC Urine WBC Ur Squamous Epith Cells Urine Bacteria Granular Casts Urine Test Vancomycin Trough Urine Opiates Screen Ur Barbiturates Screen Ur Phencyclidine Scrn Ur Amphetamines Screen U Benzodiazepines Scrn Urine Cocaine Screen U Marijuana (THC) Screen Ethyl Alcohol COVID-19 (ZACK) COVID-19 Sightly Com 04/07/21 04/07/21 04/07/21 18:33 18:33 18:33 WBC RBC Hgb Hct MCV MCH MCHC RDW Plt Count MPV Immature Gran % (Auto) Neut % (Auto) Lymph % (Auto) [place] % (Auto) Eos % (Auto) Baso % (Auto) Lymph # (Auto) [place] # (Auto) Eos # (Auto) Baso # (Auto) Abs Immat Gran (auto) Absolute Neuts (auto) Absolute Nucleated RBC Nucleated RBC % (auto) Smear Tech's Comments Smear Path Review ESR PT INR APTT Sodium Potassium Chloride Carbon Dioxide Anion Gap BUN Creatinine Estim Creat Clear Calc Estimated GFR Random Glucose Lactic Acid 0.9 Calcium Magnesium Total Bilirubin Direct Bilirubin AST ALT Alkaline Phosphatase Total Creatine Kinase Troponin I High Sens C-Reactive Protein Total Protein Albumin Urine Color Urine Appearance Urine pH Ur Specific [place] Urine Protein Urine Glucose (UA) Urine Ketones Urine Blood Urine Nitrite Ur Leukocyte Esterase Urine RBC Urine WBC Ur Squamous Epith Cells Urine Bacteria Granular Casts Urine Test Vancomycin Trough Urine Opiates Screen Ur Barbiturates Screen Ur Phencyclidine Scrn Ur Amphetamines Screen U Benzodiazepines Scrn Urine Cocaine Screen U Marijuana (THC) Screen Ethyl Alcohol < 10 COVID-19 (ZACK) Negative COVID-19 Clin Com See Note 04/07/21 04/07/21 04/07/21 20:32 20:32 22:59 WBC RBC Hgb Hct MCV MCH MCHC RDW Plt Count MPV Immature Gran % (Auto) Neut % (Auto) Lymph % (Auto) [place] % (Auto) Eos % (Auto) Baso % (Auto) Lymph # (Auto) [place] # (Auto) Eos # (Auto) Baso # (Auto) Abs Immat Gran (auto) Absolute Neuts (auto) Absolute Nucleated RBC Nucleated RBC % (auto) Smear Tech's Comments Smear Path Review ESR PT INR APTT Sodium 139 Potassium 4.1 Chloride 106 Carbon Dioxide 22 Anion Gap 15 BUN 9 Creatinine 0.95 Estim Creat Clear Calc 77.9 Estimated GFR > 60 Random Glucose 92 Lactic Acid Calcium 8.4 Magnesium 1.7 Total Bilirubin 0.7 Direct Bilirubin 0.3 AST 63 H ALT 27 Alkaline Phosphatase 102 Total Creatine Kinase 201 H D Troponin I High Sens < 3.5 C-Reactive Protein 0.30 Total Protein 6.6 Albumin 3.3 L Urine Color Urine Appearance Urine pH Ur Specific [place] Urine Protein Urine Glucose (UA) Urine Ketones Urine Blood Urine Nitrite Ur Leukocyte Esterase Urine RBC Urine WBC Ur Squamous Epith Cells Urine Bacteria Granular Casts Urine Test Vancomycin Trough Urine Opiates Screen Ur Barbiturates Screen Ur Phencyclidine Scrn Ur Amphetamines Screen U Benzodiazepines Scrn Urine Cocaine Screen U Marijuana (THC) Screen Ethyl Alcohol COVID-19 (ZACK) COVID-19 Clin Com 04/08/21 04/08/21 04/09/21 09:05 09:05 05:49 WBC 2.2 L RBC 3.53 L Hgb 10.5 L Hct 32.6 L MCV 92.4 MCH 29.7 MCHC 32.2 RDW 13.3 Plt Count 156 L D MPV 9.4 Immature Gran % (Auto) 0.0 Neut % (Auto) 39.6 L Lymph % (Auto) 46.8 H [place] % (Auto) 9.5 Eos % (Auto) 3.6 Baso % (Auto) 0.5 Lymph # (Auto) 1.0 L [place] # (Auto) 0.2 Eos # (Auto) 0.1 Baso # (Auto) 0.0 Abs Immat Gran (auto) 0.00 Absolute Neuts (auto) 0.9 L Absolute Nucleated RBC 0.000 Nucleated RBC % (auto) 0.0 Smear Tech's Comments VERIFIED Smear Path Review SEE NOTE ESR PT INR APTT Sodium 141 Potassium 3.8 Chloride 107 Carbon Dioxide 27 Anion Gap 11 L BUN 7 L Creatinine 0.83 Estim Creat Clear Calc 89.2 Estimated GFR > 60 Random Glucose 106 Lactic Acid Calcium 8.6 Magnesium Total Bilirubin Direct Bilirubin AST ALT Alkaline Phosphatase Total Creatine Kinase Troponin I High Sens C-Reactive Protein Total Protein Albumin Urine Color Urine Appearance Urine pH Ur Specific [place] Urine Protein Urine Glucose (UA) Urine Ketones Urine Blood Urine Nitrite Ur Leukocyte Esterase Urine RBC Urine WBC Ur Squamous Epith Cells Urine Bacteria Granular Casts Urine Test Vancomycin Trough 6.8 L Urine Opiates Screen Ur Barbiturates Screen Ur Phencyclidine Scrn Ur Amphetamines Screen U Benzodiazepines Scrn Urine Cocaine Screen U Marijuana (THC) Screen Ethyl Alcohol COVID-19 (ZACK) COVID-19 Clin Com 04/09/21 04/09/21 05:49 05:49 WBC 3.8 L RBC 4.16 L Hgb 12.4 Hct 39.5 D MCV 95.0 MCH 29.8 MCHC 31.4 RDW 13.4 Plt Count 212 D MPV 9.6 Immature Gran % (Auto) Neut % (Auto) Lymph % (Auto) [place] % (Auto) Eos % (Auto) Baso % (Auto) Lymph # (Auto) [place] # (Auto) Eos # (Auto) Baso # (Auto) Abs Immat Gran (auto) Absolute Neuts (auto) Absolute Nucleated RBC 0.000 Nucleated RBC % (auto) 0.0 Smear Tech's Comments Smear Path Review ESR PT INR APTT Sodium 142 Potassium 4.4 Chloride 108 Carbon Dioxide 26 Anion Gap 12 BUN 8 L Creatinine 0.85 Estim Creat Clear Calc 87.0 Estimated GFR > 60 Random Glucose 103 Lactic Acid Calcium 9.2 D Magnesium Total Bilirubin Direct Bilirubin AST ALT Alkaline Phosphatase Total Creatine Kinase Troponin I High Sens C-Reactive Protein Total Protein Albumin Urine Color Urine Appearance Urine pH Ur Specific [place] Urine Protein Urine Glucose (UA) Urine Ketones Urine Blood Urine Nitrite Ur Leukocyte Esterase Urine RBC Urine WBC Ur Squamous Epith Cells Urine Bacteria Granular Casts Urine Test Vancomycin Trough Urine Opiates Screen Ur Barbiturates Screen Ur Phencyclidine Scrn Ur Amphetamines Screen U Benzodiazepines Scrn Urine Cocaine Screen U Marijuana (THC) Screen Ethyl Alcohol COVID-19 (ZACK) COVID-19 Clin Com Imaging Radiology Impressions: ITS Impressions Venous Duplex 04/07/21 17:11 IMPRESSION: No DVT demonstrated in the right upper extremity. Medications Medications Current Medications Generic Name Dose Route Start Last Admin Trade Name Freq PRN Reason Stop Dose Admin Acetaminophen 650 mg 04/07/21 22:48 Acetaminophen 325 Mg Tablet PO Q6H PRN Pain, Mild (Pain Scale 1-3) Aspirin 80 mg 04/08/21 09:00 04/09/21 08:34 Aspirin 81 Mg Tab.Chew PO 80 mg DAILY EDER Administration Buspirone HCl 30 mg 04/08/21 09:00 04/09/21 08:34 Buspirone Hcl 10 Mg Tablet PO 30 mg BID EDER Administration Cyanocobalamin 1,000 mcg 04/08/21 09:00 04/09/21 08:35 Cyanocobalamin (Vitamin B-12) 1,000 Mcg Tablet PO 1,000 mcg DAILY EDER Administration Diazepam 5 mg 04/07/21 22:48 04/09/21 08:34 Diazepam 5 Mg Tablet PO 5 mg TID EDER Administration Docusate Sodium 100 mg 04/07/21 22:48 Docusate Sodium 100 Mg Capsule PO DAILY PRN Constipation Gabapentin 800 mg 04/07/21 22:48 04/09/21 08:35 Gabapentin 400 Mg Capsule PO 800 mg TID EDER Administration Heparin Sodium (Porcine) 5,000 unit 04/07/21 22:48 04/09/21 08:35 Heparin Sodium,Porcine 5,000 Unit/Ml Vial SUBCUT 5,000 unit BID EDER Administration Hydroxyzine HCl 50 mg 04/07/21 22:48 Hydroxyzine Hcl 50 Mg Tablet PO BID PRN anxiety Ceftriaxone Sodium 1 gm/ 50 mls @ 100 mls/hr 04/08/21 18:00 04/08/21 18:04 Sodium Chloride IV Infused Q24H EDER Infusion Vancomycin HCl 1,000 mg/ 270 mls @ 270 mls/hr 04/09/21 07:00 04/09/21 09:51 Sodium Chloride IV Infused Q12H EDER Infusion Lamotrigine 50 mg 04/08/21 09:00 04/09/21 08:35 Lamotrigine 25 Mg Tablet PO 50 mg DAILY EDER Administration Loratadine 10 mg 04/08/21 09:00 04/09/21 08:35 Loratadine 10 Mg Tablet PO 10 mg DAILY EDER Administration Methadone HCl 35 mg 04/10/21 09:00 Methadone Hcl 1 Mg/0.1 Ml Oral.Conc PO DAILY EDER Morphine Sulfate 2 mg 04/08/21 12:48 04/09/21 11:29 Morphine Sulfate 4 Mg/Ml Cartridge IVPUSH 2 mg Q8H PRN Administration Pain, Severe (Pain Scale 7-10) Multivitamins/Vitamin C 1 tab 04/08/21 09:00 04/09/21 08:34 Multivitamin Tablet PO 1 tab DAILY EDER Administration Nicotine Polacrilex 2 mg 04/08/21 17:38 04/09/21 11:29 Nicotine Polacrilex 2 Mg Gum BUCCAL 2 mg Q2H PRN Administration smoker Ondansetron HCl 4 mg 04/07/21 22:48 Ondansetron Hcl 4 Mg/2 Ml Vial IVPUSH Q8H PRN Nausea and Vomiting Pharmacy Consult 1 each 04/07/21 17:11 Consult Rx Perform Med Rec MISCELLANE ONCE PRN Consult order Pharmacy Consult 1 each 04/07/21 22:48 Consult Rx Vancomycin Dosing MISCELLANE DAILY PRN Consult order Propranolol HCl 20 mg 04/07/21 22:48 Propranolol Hcl 20 Mg Tablet PO Q6H PRN hypertension Protocol Topiramate 200 mg 04/08/21 09:00 04/09/21 08:34 Topiramate 100 Mg Tablet PO 200 mg DAILY EDER Administration Tramadol HCl 25 mg 04/09/21 11:36 04/09/21 12:54 Tramadol Hcl 50 Mg Tablet PO 25 mg Q6H PRN Administration Pain, Mild (Pain Scale 1-3) Zolpidem Tartrate 5 mg 04/07/21 22:48 Zolpidem Tartrate 5 Mg Tablet PO BEDTIME PRN Insomnia Allergies Allergies Allergy/AdvReac Type Severity Reaction Status Date / Time azithromycin [AZITHROMYCIN] Allergy Unknown UNK Verified 04/07/21 17:15 erythromycin base Allergy Unknown RASH Verified 04/07/21 17:15 [ERYTHROMYCIN BASE] olanzapine [From ZYPREXA] Allergy Unknown PEDAL EDEMA Verified 04/07/21 17:15 quetiapine [From SEROQUEL] Allergy Unknown THROAT Verified 04/07/21 17:15 SWELLING risperidone [From RISPERDAL] Allergy Unknown TWITCHING Verified 04/07/21 17:15 shellfish derived Allergy Unknown VOMITING Verified 04/07/21 17:15 [SHELLFISH DERIVED] sulfamethoxazole Allergy Unknown ITCHING Verified 04/07/21 17:15 [From BACTRIM] trimethoprim [From BACTRIM] Allergy Unknown ITCHING Verified 04/07/21 17:15 arithromiosin Allergy Unknown Unknown Uncoded 08/24/20 16:06 gluten Allergy Unknown Unknown Uncoded 08/24/20 16:06 sea food Allergy Unknown Unknown Uncoded 08/24/20 16:06 Sulfacet-R Allergy Unknown Unknown Uncoded 08/24/20 16:06 SEAFOOD AdvReac Unknown VOMIT Uncoded 06/07/20 15:47 Assessment & Plan Assessment & Plan (1) Opioid use disorder, severe, dependence: Status: Acute Code(s): F11.20 - Opioid dependence, uncomplicated Assessment and Plan: additional 5mg methadone to be administered today daily dose changed to 35mg QD will likely require increase in pain medications following procedure case discussed with recovery support RN who will continue to follow Greater than 50% of the session was spent on counseling and/or coordination of care Reason for contiued inpatient stay Substantial Risk for: other
--- NOTE | 2021-04-09 16:19 | PC.NURSE ---
Skin/Wound assessment completed today. Patient has cellulitis of right forearm. An I & D of abcess was completed by orthopedics. There is a deep 1 cm x 1 cm hole in right forearm, no drainage but red and swollen, covered with gauze and roll gauze. Another swollen red area was noted on posterior right forearm and anterior left forearm. Hernando Milleruse aware of these new areas.
[2021-04-09] MEDS: cefTRIAXone sodium 1 GM in 0.9 % Sodium Chloride 50 ML IV (18:27)
[2021-04-09 19:08] VITALS: BP 135/61; PULSE 64; RESP 20; TEMP 36; O2SAT 100
[2021-04-09] MEDS: Nicotine 21 MG PATCH.TD24 TRANSDERMA (21:17)
[2021-04-09] MEDS: Zolpidem Tartrate 5 MG TABLET PO (23:05)
[2021-04-09 23:10] VITALS: BP 140/61; PULSE 66; RESP 20; TEMP 36.1; O2SAT 99
[2021-04-10 03:33] VITALS: BP 128/60; PULSE 67; RESP 18; TEMP 36.3; O2SAT 100
[2021-04-10] MEDS: traMADoL HCL 50 MG TABLET 25 MG PO ×2 (03:52→10:31)
[2021-04-10] MEDS: Nicotine Polacrilex 2 MG GUM BUCCAL (03:55)
[2021-04-10] MEDS: Morphine Sulfate 4 MG/ML CARTRIDGE 2 MG IVPUSH ×4 (05:37→20:21)
[2021-04-10] MEDS: Acetaminophen 325 MG TABLET 650 MG PO (05:48)
[2021-04-10] MEDS: LORazepam 0.5 MG TABLET PO (06:49)
[2021-04-10 07:16] VITALS: BP 124/62; PULSE 71; RESP 18; TEMP 36.7; O2SAT 99
[2021-04-10] MEDS: Topiramate 100 MG TABLET 200 MG PO (08:19)
[2021-04-10] MEDS: Nicotine 21 MG PATCH.TD24 TRANSDERMA (08:19)
[2021-04-10] MEDS: vancomycin HCL 1,000 MG in 0.9 % Sodium Chloride 250 ML 270 MG IV ×2 (08:19→20:10)
[2021-04-10] MEDS: Loratadine 10 MG TABLET PO (08:20)
[2021-04-10] MEDS: busPIRone HCl 10 MG TABLET 30 MG PO ×2 (08:20→20:09)
[2021-04-10] MEDS: Gabapentin 400 MG CAPSULE 800 MG PO ×3 (08:20→20:09)
[2021-04-10] MEDS: Cyanocobalamin (Vitamin B-12) 1,000 MCG TABLET 1000 MCG PO (08:20)
[2021-04-10] MEDS: Aspirin 81 MG TAB.CHEW 80 MG PO (08:20)
[2021-04-10] MEDS: lamoTRIgine 25 MG TABLET 50 MG PO (08:20)
[2021-04-10] MEDS: Heparin Sodium,Porcine 5,000 UNIT/ML VIAL 5000 UNIT SUBCUT ×2 (08:21→20:10)
[2021-04-10] MEDS: Multivitamin TABLET 1 TAB PO (08:21)
[2021-04-10] MEDS: diazePAM 5 MG TABLET PO ×3 (08:21→20:09)
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
[2021-04-10 08:48] LABS: Hemoglobin 12.5 g/dl (12.0-16.0); Mean Corpuscular HGB Conc 32.1 g/dl (31.0-35.0); Mean Corpuscular Hemoglobin 29.7 pg (27.0-33.0); Mean Corpuscular Volume 92.6 fL (80-98); Mean Platelet Volume 10.3 fL (9.4-12.3); Platelet Count 258 X10*3/uL (160-400); Red Blood Count 4.21 X10*6/uL (4.20-5.50); Red Cell Distribution Width 13.2 % (11.0-16.0); White Blood Count 5.1 X10*3/uL (4.8-10.8)
[2021-04-10 09:17] LABS: Anion Gap 14 (12-20); Blood Urea Nitrogen 11 mg/dL (9-16); Calcium 9.4 mg/dL (8.4-10.2); Carbon Dioxide 22 mmol/L (22-29); Chloride 106 mmol/L (96-108); Creatinine Clr Calc Pharmacy 82.2; Estimated Glomerular Filt Rate > 60; Glucose Random 102 mg/dL (60-115); Potassium 4.8 mmol/L (3.3-5.1); Sodium 137 mmol/L (135-145)
--- NOTE | 2021-04-10 10:19 | PM.EVENT ---
Event Note Date of Service: 04/10/21 Event Note: The patient was seen at bedside today with Dr. Ceron. The right forearm wound is clean and dry. There is no active drainage. No surrounding erythema. The other areas of tenderness which are located on the left dorsum of the wrist and right forearm just inferior to the elbow do not show signs of abscess. These are consistent with localized irritation from the drug use. No further surgical intervention warranted at this time. We will continue to monitor. She can not into you to have daily dressing changes for wound care.
[2021-04-10 11:14] VITALS: BP 183/102; PULSE 77; RESP 18; TEMP 36.9; O2SAT 100
--- NOTE | 2021-04-10 12:01 | MHC.RECOVRN ---
Pt would like to return to [facility] for methadone. T/w will contact [facility] to arrange. Case management aware.
--- NOTE | 2021-04-10 13:48 | HO.PM.IMPN ---
Subjective Subjective Date of Service: 04/10/21 Interval History: right arm pain Cardiovascular Cardiovascular: Reports no additional cardiovascular complaints Gastrointestinal Gastrointestinal: Reports no additional gastrointestinal complaints Physical Exam Vital Signs: Vital Signs: Last Vital Signs Temp 98.5 F 04/10/21 11:14 Pulse 77 04/10/21 11:14 Resp 18 04/10/21 11:14 BP 183/102 H 04/10/21 11:14 Pulse Ox 100 04/10/21 11:14 Body Mass Index 25.8 Constitutional: aox3, not in acute distress Resp: normal respiratory effort and able to speak in complete sentences Cardio: rrr, s1s2 heard GI: Soft to palpation Auscultation: normal bowel sounds Skin: no rashes or lesions noted Neuro: patient oriented x3 , nonfocal Extrem: has new area of swelling on forearms -worsening Objective Data Current Medications Generic Name Dose Route Start Last Admin Trade Name Freq PRN Reason Stop Dose Admin Acetaminophen 650 mg 04/07/21 22:48 04/10/21 05:48 Acetaminophen 325 Mg Tablet PO 650 mg Q6H PRN Administration Pain, Mild (Pain Scale 1-3) Aspirin 80 mg 04/08/21 09:00 04/10/21 08:20 Aspirin 81 Mg Tab.Chew PO 80 mg DAILY EDER Administration Buspirone HCl 30 mg 04/08/21 09:00 04/10/21 08:20 Buspirone Hcl 10 Mg Tablet PO 30 mg BID EDER Administration Cyanocobalamin 1,000 mcg 04/08/21 09:00 04/10/21 08:20 Cyanocobalamin (Vitamin B-12) 1,000 Mcg Tablet PO 1,000 mcg DAILY EDER Administration Diazepam 5 mg 04/07/21 22:48 04/10/21 08:21 Diazepam 5 Mg Tablet PO 5 mg TID EDER Administration Docusate Sodium 100 mg 04/07/21 22:48 Docusate Sodium 100 Mg Capsule PO DAILY PRN Constipation Gabapentin 800 mg 04/07/21 22:48 04/10/21 08:20 Gabapentin 400 Mg Capsule PO 800 mg TID EDER Administration Heparin Sodium (Porcine) 5,000 unit 04/07/21 22:48 04/10/21 08:21 Heparin Sodium,Porcine 5,000 Unit/Ml Vial SUBCUT 5,000 unit BID EDER Administration Hydroxyzine HCl 50 mg 04/07/21 22:48 Hydroxyzine Hcl 50 Mg Tablet PO BID PRN anxiety Vancomycin HCl 1,000 mg/ 270 mls @ 270 mls/hr 04/09/21 07:00 04/10/21 09:51 Sodium Chloride IV Infused Q12H EDER Infusion Lamotrigine 50 mg 04/08/21 09:00 04/10/21 08:20 Lamotrigine 25 Mg Tablet PO 50 mg DAILY EDER Administration Loratadine 10 mg 04/08/21 09:00 04/10/21 08:20 Loratadine 10 Mg Tablet PO 10 mg DAILY EDER Administration Methadone HCl 35 mg 04/10/21 09:00 04/10/21 08:21 Methadone Hcl 1 Mg/0.1 Ml Oral.Conc PO 35 mg DAILY EDER Administration Morphine Sulfate 2 mg 04/10/21 11:24 04/10/21 13:09 Morphine Sulfate 4 Mg/Ml Cartridge IVPUSH 2 mg Q3H PRN Administration Pain, Severe (Pain Scale 7-10) Multivitamins/Vitamin C 1 tab 04/08/21 09:00 04/10/21 08:21 Multivitamin Tablet PO 1 tab DAILY EDER Administration Nicotine 21 mg 04/10/21 09:00 04/10/21 08:19 Nicotine 21 Mg Patch.Td24 TRANSDERMA 21 mg DAILY EDER Administration Nicotine Polacrilex 2 mg 04/08/21 17:38 04/10/21 03:55 Nicotine Polacrilex 2 Mg Gum BUCCAL 2 mg Q2H PRN Administration smoker Ondansetron HCl 4 mg 04/07/21 22:48 Ondansetron Hcl 4 Mg/2 Ml Vial IVPUSH Q8H PRN Nausea and Vomiting Pharmacy Consult 1 each 04/07/21 17:11 Consult Rx Perform Med Rec MISCELLANE ONCE PRN Consult order Pharmacy Consult 1 each 04/07/21 22:48 Consult Rx Vancomycin Dosing MISCELLANE DAILY PRN Consult order Propranolol HCl 20 mg 04/07/21 22:48 Propranolol Hcl 20 Mg Tablet PO Q6H PRN hypertension Protocol Topiramate 200 mg 04/08/21 09:00 04/10/21 08:19 Topiramate 100 Mg Tablet PO 200 mg DAILY EDER Administration Zolpidem Tartrate 5 mg 04/07/21 22:48 04/09/21 23:05 Zolpidem Tartrate 5 Mg Tablet PO 5 mg BEDTIME PRN Administration Insomnia Labs CBC & Chem 7: 04/10/21 07:39 04/10/21 07:39 Labs: Laboratory Results - last 24 hr 04/10/21 04/10/21 07:39 07:39 WBC 5.1 RBC 4.21 Hgb 12.5 Hct 39.0 MCV 92.6 MCH 29.7 MCHC 32.1 RDW 13.2 Plt Count 258 MPV 10.3 Absolute Nucleated RBC 0.000 Nucleated RBC % (auto) 0.0 Sodium 137 Potassium 4.8 Chloride 106 Carbon Dioxide 22 Anion Gap 14 BUN 11 Creatinine 0.90 Estim Creat Clear Calc 82.2 Estimated GFR > 60 Random Glucose 102 Calcium 9.4 Microbiology Microbiology Results: Microbiology 04/07/21 18:32 Blood Culture - Preliminary Blood - Venous No growth after 48 hours. 04/07/21 18:33 Blood Culture - Preliminary Blood - Venous No growth after 48 hours. 04/07/21 18:58 Urine Culture - Final Urine clean catch - Urine sheth top No growth. Quality Stroke Does the patient have a stroke diagnosis?: No VTE Prior VTE?: No VTE Risk Level:: Medical - moderate - high VTE Device Contraindication: Treatment Not Indicated VTE Drug Contraindication: N/A - Med Ordered Assessment and Plan (1) MRSA bacteremia: Status: Acute (2) Abscess: Status: Acute Assessment and Plan: 41-year-old female with past medical history of IV drug who initially presented to the hospital on 04/03 with abscess, patient underwent I&D on 04/05 and was being treated for cellulitis/abscess and possible bacteremia but left AMA on 04/06. Returns today with worsening symptoms MRSA bacteremia - cultures drawn on 04/03 positive for MRSA,no growth from 04/07 echocardiogram - no vegetiations continue treated with vancomycin, plan for 4 weeks, end 05/04/21 s/p I and D . UTI copmleted 3 days ceftriaxone for ecoli opioid dependence [place] morphine for breakthrough pain HCV outpaitnet follow up DVT prophylaxis: Heparin subQ
[2021-04-10 15:23] VITALS: BP 124/57; PULSE 66; RESP 20; TEMP 36.7; O2SAT 98
[2021-04-10 18:58] VITALS: BP 113/57; PULSE 73; RESP 20; TEMP 36.6; O2SAT 98
[2021-04-10 19:05] LABS: Vancomycin Trough 16.4 mcg/mL (10.0-20.0)
[2021-04-10] MEDS: Zolpidem Tartrate 5 MG TABLET PO (21:28)
[2021-04-10 23:32] VITALS: BP 109/57; PULSE 65; RESP 18; TEMP 36.6; O2SAT 99
[2021-04-11] VITALS (8 sets, daily range): BP systolic 106–137; BP diastolic 52–64; PULSE 66–75; RESP 18–20; TEMP 36.8–37.1; O2SAT 97–100
[2021-04-11] MEDS: Morphine Sulfate 4 MG/ML CARTRIDGE 2 MG IVPUSH ×6 (00:05→19:36)
[2021-04-11] MEDS: hydrOXYzine HCL 50 MG TABLET PO (00:05)
[2021-04-11] MEDS: Acetaminophen 325 MG TABLET 650 MG PO ×2 (06:34→20:48)
--- NOTE | 2021-04-11 09:33 | PM.EVENT ---
Event Note Date of Service: 04/11/21 Event Note: Patient seen at bedside today -continue wound care for right arm abscess-no drainage present -areas of swelling on left wrist and below elbow appear to be improving.
[2021-04-11] MEDS: Nicotine 21 MG PATCH.TD24 TRANSDERMA (09:48)
[2021-04-11] MEDS: Gabapentin 400 MG CAPSULE 800 MG PO ×3 (09:49→20:19)
[2021-04-11] MEDS: vancomycin HCL 1,000 MG in 0.9 % Sodium Chloride 250 ML 270 MG IV ×2 (09:49→19:37)
[2021-04-11] MEDS: busPIRone HCl 10 MG TABLET 30 MG PO ×2 (09:49→20:19)
[2021-04-11] MEDS: Loratadine 10 MG TABLET PO (09:49)
[2021-04-11] MEDS: Topiramate 100 MG TABLET 200 MG PO (09:49)
[2021-04-11] MEDS: Cyanocobalamin (Vitamin B-12) 1,000 MCG TABLET 1000 MCG PO (09:49)
[2021-04-11] MEDS: Multivitamin TABLET 1 TAB PO (09:50)
[2021-04-11] MEDS: lamoTRIgine 25 MG TABLET 50 MG PO (09:50)
[2021-04-11] MEDS: diazePAM 5 MG TABLET PO ×3 (09:50→20:19)
[2021-04-11] MEDS: Aspirin 81 MG TAB.CHEW 80 MG PO (09:50)
--- NOTE | 2021-04-11 10:10 | HO.PM.IMPN ---
Subjective Subjective Date of Service: 04/11/21 Interval History: left arm pain Cardiovascular Cardiovascular: Reports no additional cardiovascular complaints Respiratory Respiratory: Reports no additional respiratory complaints Physical Exam Vital Signs: Vital Signs: Last Vital Signs Temp 98.8 F 04/11/21 07:37 Pulse 72 04/11/21 07:37 Resp 20 04/11/21 07:37 BP 111/59 L 04/11/21 07:37 Pulse Ox 99 04/11/21 07:37 Body Mass Index 25.8 Constitutional: aox3, not in acute distress Resp: normal respiratory effort and able to speak in complete sentences Cardio: rrr, s1s2 heard GI: Soft to palpation Auscultation: normal bowel sounds Skin: no rashes or lesions noted Neuro: patient oriented x3 , nonfocal Extrem: has new area of swelling on forearms -worsening Objective Data Current Medications Generic Name Dose Route Start Last Admin Trade Name Freq PRN Reason Stop Dose Admin Acetaminophen 650 mg 04/07/21 22:48 04/11/21 06:34 Acetaminophen 325 Mg Tablet PO 650 mg Q6H PRN Administration Pain, Mild (Pain Scale 1-3) Aspirin 80 mg 04/08/21 09:00 04/11/21 09:50 Aspirin 81 Mg Tab.Chew PO 80 mg DAILY EDER Administration Buspirone HCl 30 mg 04/08/21 09:00 04/11/21 09:49 Buspirone Hcl 10 Mg Tablet PO 30 mg BID EDER Administration Cyanocobalamin 1,000 mcg 04/08/21 09:00 04/11/21 09:49 Cyanocobalamin (Vitamin B-12) 1,000 Mcg Tablet PO 1,000 mcg DAILY EDER Administration Diazepam 5 mg 04/07/21 22:48 04/11/21 09:50 Diazepam 5 Mg Tablet PO 5 mg TID EDER Administration Docusate Sodium 100 mg 04/07/21 22:48 Docusate Sodium 100 Mg Capsule PO DAILY PRN Constipation Gabapentin 800 mg 04/07/21 22:48 04/11/21 09:49 Gabapentin 400 Mg Capsule PO 800 mg TID EDER Administration Heparin Sodium (Porcine) 5,000 unit 04/07/21 22:48 04/11/21 09:48 Heparin Sodium,Porcine 5,000 Unit/Ml Vial SUBCUT Not Given BID EDER Hydroxyzine HCl 50 mg 04/07/21 22:48 04/11/21 00:05 Hydroxyzine Hcl 50 Mg Tablet PO 50 mg BID PRN Administration anxiety Vancomycin HCl 1,000 mg/ 270 mls @ 270 mls/hr 04/09/21 07:00 04/11/21 09:49 Sodium Chloride IV 270 mls/hr Q12H EDER Administration Lamotrigine 50 mg 04/08/21 09:00 04/11/21 09:50 Lamotrigine 25 Mg Tablet PO 50 mg DAILY EDER Administration Loratadine 10 mg 04/08/21 09:00 04/11/21 09:49 Loratadine 10 Mg Tablet PO 10 mg DAILY EDER Administration Methadone HCl 35 mg 04/10/21 09:00 04/11/21 09:50 Methadone Hcl 1 Mg/0.1 Ml Oral.Conc PO 35 mg DAILY EDER Administration Morphine Sulfate 2 mg 04/10/21 11:24 04/11/21 09:49 Morphine Sulfate 4 Mg/Ml Cartridge IVPUSH 2 mg Q3H PRN Administration Pain, Severe (Pain Scale 7-10) Multivitamins/Vitamin C 1 tab 04/08/21 09:00 04/11/21 09:50 Multivitamin Tablet PO 1 tab DAILY EDER Administration Nicotine 21 mg 04/10/21 09:00 04/11/21 09:48 Nicotine 21 Mg Patch.Td24 TRANSDERMA 21 mg DAILY EDER Administration Nicotine Polacrilex 2 mg 04/08/21 17:38 04/10/21 03:55 Nicotine Polacrilex 2 Mg Gum BUCCAL 2 mg Q2H PRN Administration smoker Ondansetron HCl 4 mg 04/07/21 22:48 Ondansetron Hcl 4 Mg/2 Ml Vial IVPUSH Q8H PRN Nausea and Vomiting Pharmacy Consult 1 each 04/07/21 17:11 Consult Rx Perform Med Rec MISCELLANE ONCE PRN Consult order Pharmacy Consult 1 each 04/07/21 22:48 Consult Rx Vancomycin Dosing MISCELLANE DAILY PRN Consult order Propranolol HCl 20 mg 04/07/21 22:48 Propranolol Hcl 20 Mg Tablet PO Q6H PRN hypertension Protocol Topiramate 200 mg 04/08/21 09:00 04/11/21 09:49 Topiramate 100 Mg Tablet PO 200 mg DAILY EDER Administration Zolpidem Tartrate 5 mg 04/07/21 22:48 04/10/21 21:28 Zolpidem Tartrate 5 Mg Tablet PO 5 mg BEDTIME PRN Administration Insomnia Labs CBC & Chem 7: 04/10/21 07:39 04/10/21 07:39 Labs: Laboratory Results - last 24 hr 04/10/21 18:15 Vancomycin Trough 16.4 Quality Stroke Does the patient have a stroke diagnosis?: No VTE Prior VTE?: No VTE Risk Level:: Medical - moderate - high VTE Device Contraindication: Treatment Not Indicated VTE Drug Contraindication: N/A - Med Ordered Assessment and Plan (1) MRSA bacteremia: Status: Acute (2) Abscess: Status: Acute Assessment and Plan: 41-year-old female with past medical history of IV drug who initially presented to the hospital on 04/03 with abscess, patient underwent I&D on 04/05 and was being treated for cellulitis/abscess and possible bacteremia but left AMA on 04/06. Returned with worsening symptoms MRSA bacteremia - cultures drawn on 04/03 positive for MRSA,no growth from 04/07 echocardiogram - no vegetiations continue treated with vancomycin, plan for 4 weeks, end 05/04/21 s/p I and D once no plans for further I and D,will place picc . UTI completed 3 days ceftriaxone for ecoli opioid dependence methadone morphine for breakthrough pain HCV outpatient follow up DVT prophylaxis: Heparin subQ
--- NOTE | 2021-04-11 11:20 | MHC.RECOVRN ---
Pt approved to return to [facility] upon discharge from [facility]. Pt must bring last dose letter and present to front end technician. T/w learned pt may d/c over the weekend. T/w left message with Laurence ([phone]) to confirm that will not be a problem with dosing. Awaiting call back. Discussed with SANDRA.
[2021-04-11] MEDS: Zolpidem Tartrate 5 MG TABLET PO (20:19)
[2021-04-11] MEDS: Heparin Sodium,Porcine 5,000 UNIT/ML VIAL 5000 UNIT SUBCUT (20:20)
[2021-04-12] MEDS: Morphine Sulfate 4 MG/ML CARTRIDGE 2 MG IVPUSH ×6 (00:42→20:30)
[2021-04-12] MEDS: Acetaminophen 325 MG TABLET 650 MG PO ×2 (05:17→18:05)
[2021-04-12 08:00] VITALS: BP 137/63; PULSE 77; RESP 18; TEMP 36.9; O2SAT 99
[2021-04-12] MEDS: vancomycin HCL 1,000 MG in 0.9 % Sodium Chloride 250 ML 270 MG IV ×2 (08:49→18:04)
[2021-04-12] MEDS: busPIRone HCl 10 MG TABLET 30 MG PO ×2 (08:50→20:31)
[2021-04-12] MEDS: lamoTRIgine 25 MG TABLET 50 MG PO (08:51)
[2021-04-12] MEDS: Nicotine 21 MG PATCH.TD24 TRANSDERMA (08:51)
[2021-04-12] MEDS: ondansetron HCL 4 MG/2 ML VIAL IVPUSH (08:52)
[2021-04-12] MEDS: Heparin Sodium,Porcine 5,000 UNIT/ML VIAL 5000 UNIT SUBCUT ×2 (08:52→20:31)
[2021-04-12] MEDS: Topiramate 100 MG TABLET 200 MG PO (08:53)
[2021-04-12] MEDS: Gabapentin 400 MG CAPSULE 800 MG PO ×3 (08:53→20:31)
[2021-04-12] MEDS: Loratadine 10 MG TABLET PO (08:53)
[2021-04-12] MEDS: Aspirin 81 MG TAB.CHEW 80 MG PO (08:54)
[2021-04-12] MEDS: diazePAM 5 MG TABLET PO ×3 (08:54→20:31)
[2021-04-12] MEDS: Cyanocobalamin (Vitamin B-12) 1,000 MCG TABLET 1000 MCG PO (08:54)
[2021-04-12] MEDS: Multivitamin TABLET 1 TAB PO (08:54)
[2021-04-12 09:04] LABS: Vancomycin Trough 17.8 mcg/mL (10.0-20.0)
--- NOTE | 2021-04-12 10:35 | HO.PM.IMPN ---
Subjective Subjective Date of Service: 04/12/21 Interval History: vaginal candidiasis Cardiovascular Cardiovascular: Reports no additional cardiovascular complaints Gastrointestinal Gastrointestinal: Reports no additional gastrointestinal complaints Physical Exam Vital Signs: Vital Signs: Last Vital Signs Temp 98.5 F 04/12/21 08:00 Pulse 77 04/12/21 08:00 Resp 18 04/12/21 08:00 BP 137/63 04/12/21 08:00 Pulse Ox 99 04/12/21 08:00 Body Mass Index 25.8 Constitutional: aox3, not in acute distress Resp: normal respiratory effort and able to speak in complete sentences Cardio: rrr, s1s2 heard GI: Soft to palpation Auscultation: normal bowel sounds Skin: no rashes or lesions noted Neuro: patient oriented x3 , nonfocal Extrem: has new area of swelling on forearms -worsening Objective Data Current Medications Generic Name Dose Route Start Last Admin Trade Name Freq PRN Reason Stop Dose Admin Acetaminophen 650 mg 04/07/21 22:48 04/12/21 05:17 Acetaminophen 325 Mg Tablet PO 650 mg Q6H PRN Administration Pain, Mild (Pain Scale 1-3) Aspirin 80 mg 04/08/21 09:00 04/12/21 08:54 Aspirin 81 Mg Tab.Chew PO 80 mg DAILY EDER Administration Buspirone HCl 30 mg 04/08/21 09:00 04/12/21 08:50 Buspirone Hcl 10 Mg Tablet PO 30 mg BID EDER Administration Cyanocobalamin 1,000 mcg 04/08/21 09:00 04/12/21 08:54 Cyanocobalamin (Vitamin B-12) 1,000 Mcg Tablet PO 1,000 mcg DAILY EDER Administration Diazepam 5 mg 04/07/21 22:48 04/12/21 08:54 Diazepam 5 Mg Tablet PO 5 mg TID EDER Administration Docusate Sodium 100 mg 04/07/21 22:48 Docusate Sodium 100 Mg Capsule PO DAILY PRN Constipation Gabapentin 800 mg 04/07/21 22:48 04/12/21 08:53 Gabapentin 400 Mg Capsule PO 800 mg TID EDER Administration Heparin Sodium (Porcine) 5,000 unit 04/07/21 22:48 04/12/21 08:52 Heparin Sodium,Porcine 5,000 Unit/Ml Vial SUBCUT 5,000 unit BID EDER Administration Hydroxyzine HCl 50 mg 04/07/21 22:48 04/11/21 00:05 Hydroxyzine Hcl 50 Mg Tablet PO 50 mg BID PRN Administration anxiety Vancomycin HCl 1,000 mg/ 270 mls @ 270 mls/hr 04/09/21 07:00 04/12/21 08:49 Sodium Chloride IV 270 mls/hr Q12H EDER Administration Lamotrigine 50 mg 04/08/21 09:00 04/12/21 08:51 Lamotrigine 25 Mg Tablet PO 50 mg DAILY EDER Administration Loratadine 10 mg 04/08/21 09:00 04/12/21 08:53 Loratadine 10 Mg Tablet PO 10 mg DAILY EDER Administration Lorazepam 1 mg 04/12/21 10:34 Lorazepam 1 Mg Tablet PO 04/12/21 10:35 ONCE ONE Methadone HCl 35 mg 04/10/21 09:00 04/12/21 08:51 Methadone Hcl 1 Mg/0.1 Ml Oral.Conc PO 35 mg DAILY EDER Administration Morphine Sulfate 2 mg 04/10/21 11:24 04/12/21 08:51 Morphine Sulfate 4 Mg/Ml Cartridge IVPUSH 2 mg Q3H PRN Administration Pain, Severe (Pain Scale 7-10) Multivitamins/Vitamin C 1 tab 04/08/21 09:00 04/12/21 08:54 Multivitamin Tablet PO 1 tab DAILY EDER Administration Nicotine 21 mg 04/10/21 09:00 04/12/21 08:51 Nicotine 21 Mg Patch.Td24 TRANSDERMA 21 mg DAILY EDER Administration Nicotine Polacrilex 2 mg 04/08/21 17:38 04/10/21 03:55 Nicotine Polacrilex 2 Mg Gum BUCCAL 2 mg Q2H PRN Administration smoker Ondansetron HCl 4 mg 04/07/21 22:48 04/12/21 08:52 Ondansetron Hcl 4 Mg/2 Ml Vial IVPUSH 4 mg Q8H PRN Administration Nausea and Vomiting Pharmacy Consult 1 each 04/07/21 17:11 Consult Rx Perform Med Rec MISCELLANE ONCE PRN Consult order Pharmacy Consult 1 each 04/07/21 22:48 Consult Rx Vancomycin Dosing MISCELLANE DAILY PRN Consult order Propranolol HCl 20 mg 04/07/21 22:48 Propranolol Hcl 20 Mg Tablet PO Q6H PRN hypertension Protocol Topiramate 200 mg 04/08/21 09:00 04/12/21 08:53 Topiramate 100 Mg Tablet PO 200 mg DAILY EDER Administration Zolpidem Tartrate 5 mg 04/07/21 22:48 04/11/21 20:19 Zolpidem Tartrate 5 Mg Tablet PO 5 mg BEDTIME PRN Administration Insomnia Labs CBC & Chem 7: 04/10/21 07:39 04/10/21 07:39 Labs: Laboratory Results - last 24 hr 04/12/21 06:00 Vancomycin Trough 17.8 Quality Stroke Does the patient have a stroke diagnosis?: No VTE Prior VTE?: No VTE Risk Level:: Medical - moderate - high VTE Device Contraindication: Treatment Not Indicated VTE Drug Contraindication: N/A - Med Ordered Assessment and Plan (1) MRSA bacteremia: Status: Acute (2) Abscess: Status: Acute Assessment and Plan: 41-year-old female with past medical history of IV drug who initially presented to the hospital on 04/03 with abscess, patient underwent I&D on 04/05 and was being treated for cellulitis/abscess and possible bacteremia but left AMA on 04/06. Returned with worsening symptoms MRSA bacteremia - cultures drawn on 04/03 positive for MRSA,no growth from 04/07 echocardiogram - no vegetiations continue treated with vancomycin, plan for 4 weeks, end 05/04/21 s/p I and D once bed available,will place picc vaginal aj diflucan 150mg once . UTI completed 3 days ceftriaxone for ecoli opioid dependence methadone morphine for breakthrough pain HCV outpatient follow up DVT prophylaxis: Heparin subQ
[2021-04-12] MEDS: LORazepam 1 MG TABLET PO (10:48)
--- NOTE | 2021-04-12 11:38 | MHC.CM.PN ---
Per ROUNDS discussion, Patient MAY be ready for dc to [facility] for LT IVABT over the weekend. [facility] is Patient's only SNF option r/t IVDA and Methadone, but [facility] presently does not have an available Female bed. CM has requested that [facility] begin auth process, prior to the weekend. CM will follow.
[2021-04-12 12:00] VITALS: BP 127/60; PULSE 69; RESP 20; TEMP 36.7; O2SAT 98
[2021-04-12] MEDS: methADONE HCl 5 MG TABLET PO (14:53)
[2021-04-12] MEDS: Fluconazole 150 MG TABLET PO (14:53)
--- NOTE | 2021-04-12 14:59 | PM.EVENT ---
Event Note Date of Service: 04/12/21 Event Note: right arm s/p ID wound open and clean without drainage two other areas she has concern about are not open or draining. Tenderness to palpation continue wound care no surgical intervention warranted at this time
[2021-04-12 15:11] VITALS: BP 116/54; PULSE 73; RESP 20; TEMP 36.5; O2SAT 99
--- NOTE | 2021-04-12 16:05 | PM.IDPN ---
Assessment and Plan Assessment and plan (1) MRSA bacteremia: Problem details: mrsa bacteremia Status: Acute (2) Abscess: Problem details: 6 week iv antibiotic PICC line and placement High V Status: Acute Time Spent With Patient Time: Total time spent is greater than 50% in coordination of care (as documented) at patient's floor/unit and/or counseling patient: Time with patient: 15 - 24 minutes Subjective Subjective Date of Service: 04/12/21 Critical Care Time (minutes): 15 Comment: she has still right arm discomfort Objective Data Labs CBC & Chem 7: 04/10/21 07:39 04/10/21 07:39 Labs: Laboratory Results - last 24 hr 04/12/21 06:00 Vancomycin Trough 17.8 Microbiology Microbiology Results: Microbiology 04/07/21 18:32 Blood - Venous Blood Culture - Preliminary No growth after 48 hours. 04/07/21 18:33 Blood - Venous Blood Culture - Preliminary No growth after 48 hours. 04/07/21 18:58 Urine clean catch - Urine sheth top Urine Culture - Final No growth. Physical Exam Vital Signs: Vital Signs: Last Vital Signs Temp 97.7 F 04/12/21 15:11 Pulse 73 04/12/21 15:11 Resp 20 04/12/21 15:11 BP 116/54 L 04/12/21 15:11 Pulse Ox 99 04/12/21 15:11 Body Mass Index 25.8 Const: General: cooperative Resp: Effort & Inspection: normal respiratory effort Cardio: Rate: regular rate Rhythm: regular rhythm GI: Palpation (GI): Soft to palpation and not firm
[2021-04-12 19:01] VITALS: BP 119/57; PULSE 76; RESP 20; TEMP 37.2; O2SAT 97
[2021-04-12 20:30] VITALS: RESP 18
[2021-04-12] MEDS: Zolpidem Tartrate 5 MG TABLET PO (20:44)
[2021-04-12 23:39] VITALS: BP 122/57; PULSE 74; RESP 20; TEMP 37.1; O2SAT 97
[2021-04-13] VITALS (8 sets, daily range): BP systolic 108–134; BP diastolic 56–76; PULSE 66–81; RESP 14–20; TEMP 36.2–37.2; O2SAT 97–100
[2021-04-13] MEDS: Morphine Sulfate 4 MG/ML CARTRIDGE 2 MG IVPUSH ×7 (01:11→22:01)
[2021-04-13] MEDS: Acetaminophen 325 MG TABLET 650 MG PO ×2 (01:12→08:53)
[2021-04-13] MEDS: Nicotine Polacrilex 2 MG GUM BUCCAL ×2 (01:20→08:53)
[2021-04-13] MEDS: vancomycin HCL 1,000 MG in 0.9 % Sodium Chloride 250 ML 270 MG IV ×2 (06:09→18:27)
[2021-04-13 07:42] LABS: Hematocrit 39.2 % (37-47); Hemoglobin 12.7 g/dl (12.0-16.0); Mean Corpuscular HGB Conc 32.4 g/dl (31.0-35.0); Mean Corpuscular Hemoglobin 30.2 pg (27.0-33.0); Mean Corpuscular Volume 93.3 fL (80-98); Mean Platelet Volume 11.5 fL (9.4-12.3); Platelet Count 156 X10*3/uL (160-400); Red Cell Distribution Width 13.3 % (11.0-16.0); White Blood Count 5.9 X10*3/uL (4.8-10.8)
[2021-04-13 08:16] LABS: Anion Gap 11 (12-20); Blood Urea Nitrogen 10 mg/dL (9-16); Calcium 9.2 mg/dL (8.4-10.2); Carbon Dioxide 23 mmol/L (22-29); Chloride 109 mmol/L (96-108); Creatinine Clr Calc Pharmacy 84.1; Estimated Glomerular Filt Rate > 60; Glucose Fasting 98 mg/dL (60-99); Potassium 4.9 mmol/L (3.3-5.1); Sodium 138 mmol/L (135-145)
[2021-04-13] MEDS: Gabapentin 400 MG CAPSULE 800 MG PO ×3 (08:53→22:02)
[2021-04-13] MEDS: busPIRone HCl 10 MG TABLET 30 MG PO ×2 (08:53→22:01)
[2021-04-13] MEDS: lamoTRIgine 25 MG TABLET 50 MG PO (08:53)
[2021-04-13] MEDS: Loratadine 10 MG TABLET PO (08:53)
[2021-04-13] MEDS: Topiramate 100 MG TABLET 200 MG PO (08:53)
[2021-04-13] MEDS: Heparin Sodium,Porcine 5,000 UNIT/ML VIAL 5000 UNIT SUBCUT ×2 (08:54→22:01)
[2021-04-13] MEDS: Nicotine 21 MG PATCH.TD24 TRANSDERMA (08:54)
[2021-04-13] MEDS: Aspirin 81 MG TAB.CHEW 80 MG PO (08:54)
[2021-04-13] MEDS: Cyanocobalamin (Vitamin B-12) 1,000 MCG TABLET 1000 MCG PO (08:54)
[2021-04-13] MEDS: Multivitamin TABLET 1 TAB PO (09:00)
--- NOTE | 2021-04-13 09:00 | PM.PNORT ---
Progress Note: A&P Assessment and plan (1) Abscess: Status: Acute Assessment and Plan: right forearm abcess s/p I&D with resolving areas of induration without fluctuance. Typical for cocaine injection with florid granulomatous reaction. Warm compresses and will continue to watch. Fall Risk Details Current Medications: Current Medications Generic Name Dose Route Start Last Admin Trade Name Freq PRN Reason Stop Dose Admin Acetaminophen 650 mg 04/07/21 22:48 04/13/21 08:53 Acetaminophen 325 Mg Tablet PO 650 mg Q6H PRN Administration Pain, Mild (Pain Scale 1-3) Aspirin 80 mg 04/08/21 09:00 04/13/21 08:54 Aspirin 81 Mg Tab.Chew PO 80 mg DAILY EDER Administration Buspirone HCl 30 mg 04/08/21 09:00 04/13/21 08:53 Buspirone Hcl 10 Mg Tablet PO 30 mg BID EDER Administration Cyanocobalamin 1,000 mcg 04/08/21 09:00 04/13/21 08:54 Cyanocobalamin (Vitamin B-12) 1,000 Mcg Tablet PO 1,000 mcg DAILY EDER Administration Docusate Sodium 100 mg 04/07/21 22:48 Docusate Sodium 100 Mg Capsule PO DAILY PRN Constipation Gabapentin 800 mg 04/07/21 22:48 04/13/21 08:53 Gabapentin 400 Mg Capsule PO 800 mg TID EDER Administration Heparin Sodium (Porcine) 5,000 unit 04/07/21 22:48 04/13/21 08:54 Heparin Sodium,Porcine 5,000 Unit/Ml Vial SUBCUT 5,000 unit BID EDER Administration Hydroxyzine HCl 50 mg 04/07/21 22:48 04/11/21 00:05 Hydroxyzine Hcl 50 Mg Tablet PO 50 mg BID PRN Administration anxiety Vancomycin HCl 1,000 mg/ 270 mls @ 270 mls/hr 04/09/21 07:00 04/13/21 07:40 Sodium Chloride IV Infused Q12H EDER Infusion Lamotrigine 50 mg 04/08/21 09:00 04/13/21 08:53 Lamotrigine 25 Mg Tablet PO 50 mg DAILY EDER Administration Loratadine 10 mg 04/08/21 09:00 04/13/21 08:53 Loratadine 10 Mg Tablet PO 10 mg DAILY EDER Administration Methadone HCl 40 mg 04/13/21 09:00 04/13/21 08:53 Methadone Hcl 1 Mg/0.1 Ml Oral.Conc PO 40 mg DAILY EDER Administration Morphine Sulfate 2 mg 04/10/21 11:24 04/13/21 06:08 Morphine Sulfate 4 Mg/Ml Cartridge IVPUSH 2 mg Q3H PRN Administration Pain, Severe (Pain Scale 7-10) Multivitamins/Vitamin C 1 tab 04/08/21 09:00 04/13/21 09:00 Multivitamin Tablet PO 1 tab DAILY EDER Administration Nicotine 21 mg 04/10/21 09:00 04/13/21 08:54 Nicotine 21 Mg Patch.Td24 TRANSDERMA 21 mg DAILY EDER Administration Nicotine Polacrilex 2 mg 04/08/21 17:38 04/13/21 08:53 Nicotine Polacrilex 2 Mg Gum BUCCAL 2 mg Q2H PRN Administration smoker Ondansetron HCl 4 mg 04/07/21 22:48 04/12/21 08:52 Ondansetron Hcl 4 Mg/2 Ml Vial IVPUSH 4 mg Q8H PRN Administration Nausea and Vomiting Pharmacy Consult 1 each 04/07/21 17:11 Consult Rx Perform Med Rec MISCELLANE ONCE PRN Consult order Pharmacy Consult 1 each 04/07/21 22:48 Consult Rx Vancomycin Dosing MISCELLANE DAILY PRN Consult order Propranolol HCl 20 mg 04/07/21 22:48 Propranolol Hcl 20 Mg Tablet PO Q6H PRN hypertension Protocol Topiramate 200 mg 04/08/21 09:00 04/13/21 08:53 Topiramate 100 Mg Tablet PO 200 mg DAILY EDER Administration Time Spent With Patient Time: Total time spent is greater than 50% in coordination of care (as documented) at patient's floor/unit and/or counseling patient: Time with patient: less than 15 minutes Subjective Subjective Date of Service: 04/13/21 Principal diagnosis: right forearm abcess Interval history: complains of pain Physical Exam Vital Signs: Vital Signs: Last Vital Signs Temp 97.2 F 04/13/21 07:21 Pulse 68 04/13/21 07:21 Resp 20 04/13/21 07:21 BP 108/56 L 04/13/21 07:21 Pulse Ox 100 04/13/21 07:21 Body Mass Index 25.8 Extrem: Other: no discharge. Wound healing. one area of pain and swelling proximal dorsomedial forearm without fluctuance and improved from prior Procedures Date of Service Date of Service: 04/13/21 Quality Stroke Does the patient have a stroke diagnosis?: No VTE Prior VTE?: No VTE Risk Level:: Medical - moderate - high VTE Device Contraindication: Treatment Not Indicated VTE Drug Contraindication: N/A - Med Ordered
[2021-04-13] MEDS: ondansetron HCL 4 MG/2 ML VIAL IVPUSH (09:10)
--- NOTE | 2021-04-13 10:18 | HO.PM.IMPN ---
Subjective Subjective Date of Service: 04/13/21 Interval History: left arm pain Cardiovascular Cardiovascular: Reports no additional cardiovascular complaints Gastrointestinal Gastrointestinal: Reports no additional gastrointestinal complaints Physical Exam Vital Signs: Vital Signs: Last Vital Signs Temp 97.2 F 04/13/21 07:21 Pulse 68 04/13/21 07:21 Resp 20 04/13/21 07:21 BP 108/56 L 04/13/21 07:21 Pulse Ox 100 04/13/21 07:21 Body Mass Index 25.8 Constitutional: aox3, not in acute distress Resp: normal respiratory effort and able to speak in complete sentences Cardio: rrr, s1s2 heard GI: Soft to palpation Auscultation: normal bowel sounds Skin: no rashes or lesions noted Neuro: patient oriented x3 , nonfocal Extrem: swelling on forearms Objective Data Current Medications Generic Name Dose Route Start Last Admin Trade Name Freq PRN Reason Stop Dose Admin Acetaminophen 650 mg 04/07/21 22:48 04/13/21 08:53 Acetaminophen 325 Mg Tablet PO 650 mg Q6H PRN Administration Pain, Mild (Pain Scale 1-3) Aspirin 80 mg 04/08/21 09:00 04/13/21 08:54 Aspirin 81 Mg Tab.Chew PO 80 mg DAILY EDER Administration Buspirone HCl 30 mg 04/08/21 09:00 04/13/21 08:53 Buspirone Hcl 10 Mg Tablet PO 30 mg BID EDER Administration Cyanocobalamin 1,000 mcg 04/08/21 09:00 04/13/21 08:54 Cyanocobalamin (Vitamin B-12) 1,000 Mcg Tablet PO 1,000 mcg DAILY EDER Administration Docusate Sodium 100 mg 04/07/21 22:48 Docusate Sodium 100 Mg Capsule PO DAILY PRN Constipation Gabapentin 800 mg 04/07/21 22:48 04/13/21 08:53 Gabapentin 400 Mg Capsule PO 800 mg TID EDER Administration Heparin Sodium (Porcine) 5,000 unit 04/07/21 22:48 04/13/21 08:54 Heparin Sodium,Porcine 5,000 Unit/Ml Vial SUBCUT 5,000 unit BID EDER Administration Hydroxyzine HCl 50 mg 04/07/21 22:48 04/11/21 00:05 Hydroxyzine Hcl 50 Mg Tablet PO 50 mg BID PRN Administration anxiety Vancomycin HCl 1,000 mg/ 270 mls @ 270 mls/hr 04/09/21 07:00 04/13/21 07:40 Sodium Chloride IV Infused Q12H EDER Infusion Lamotrigine 50 mg 04/08/21 09:00 04/13/21 08:53 Lamotrigine 25 Mg Tablet PO 50 mg DAILY EDER Administration Loratadine 10 mg 04/08/21 09:00 04/13/21 08:53 Loratadine 10 Mg Tablet PO 10 mg DAILY EDER Administration Methadone HCl 40 mg 04/13/21 09:00 04/13/21 08:53 Methadone Hcl 1 Mg/0.1 Ml Oral.Conc PO 40 mg DAILY EDER Administration Morphine Sulfate 2 mg 04/10/21 11:24 04/13/21 09:10 Morphine Sulfate 4 Mg/Ml Cartridge IVPUSH 2 mg Q3H PRN Administration Pain, Severe (Pain Scale 7-10) Multivitamins/Vitamin C 1 tab 04/08/21 09:00 04/13/21 09:00 Multivitamin Tablet PO 1 tab DAILY EDER Administration Nicotine 21 mg 04/10/21 09:00 04/13/21 08:54 Nicotine 21 Mg Patch.Td24 TRANSDERMA 21 mg DAILY EDER Administration Nicotine Polacrilex 2 mg 04/08/21 17:38 04/13/21 08:53 Nicotine Polacrilex 2 Mg Gum BUCCAL 2 mg Q2H PRN Administration smoker Ondansetron HCl 4 mg 04/07/21 22:48 04/13/21 09:10 Ondansetron Hcl 4 Mg/2 Ml Vial IVPUSH 4 mg Q8H PRN Administration Nausea and Vomiting Pharmacy Consult 1 each 04/07/21 17:11 Consult Rx Perform Med Rec MISCELLANE ONCE PRN Consult order Pharmacy Consult 1 each 04/07/21 22:48 Consult Rx Vancomycin Dosing MISCELLANE DAILY PRN Consult order Propranolol HCl 20 mg 04/07/21 22:48 Propranolol Hcl 20 Mg Tablet PO Q6H PRN hypertension Protocol Topiramate 200 mg 04/08/21 09:00 04/13/21 08:53 Topiramate 100 Mg Tablet PO 200 mg DAILY EDER Administration Labs CBC & Chem 7: 04/13/21 07:08 04/13/21 07:08 Labs: Laboratory Results - last 24 hr 04/13/21 04/13/21 07:08 07:08 WBC 5.9 RBC 4.20 Hgb 12.7 Hct 39.2 MCV 93.3 MCH 30.2 MCHC 32.4 RDW 13.3 Plt Count 156 L D MPV 11.5 Absolute Nucleated RBC 0.000 Nucleated RBC % (auto) 0.0 Sodium 138 Potassium 4.9 Chloride 109 H Carbon Dioxide 23 Anion Gap 11 L BUN 10 Creatinine 0.88 Estim Creat Clear Calc 84.1 Estimated GFR > 60 Fasting Glucose 98 Calcium 9.2 Microbiology Microbiology Results: Microbiology 04/07/21 18:32 Blood Culture - Final Blood - Venous No growth after 5 days. 04/07/21 18:33 Blood Culture - Final Blood - Venous No growth after 5 days. Quality Stroke Does the patient have a stroke diagnosis?: No VTE Prior VTE?: No VTE Risk Level:: Medical - moderate - high VTE Device Contraindication: Treatment Not Indicated VTE Drug Contraindication: N/A - Med Ordered Assessment and Plan (1) MRSA bacteremia: Status: Acute (2) Abscess: Status: Acute Assessment and Plan: 41-year-old female with past medical history of IV drug who initially presented to the hospital on 04/03 with abscess, patient underwent I&D on 04/05 and was being treated for cellulitis/abscess and possible bacteremia but left AMA on 04/06. Returned with worsening symptoms MRSA bacteremia - cultures drawn on 04/03 positive for MRSA,no growth from 04/07 echocardiogram - no vegetiations continue treated with vancomycin, plan now for 6 weeks, end 05/18/21 s/p I and D once bed available,will place picc vaginal aj diflucan 150mg once - resolved vaginal discharge STI screen . UTI completed 3 days ceftriaxone for ecoli opioid dependence methadone morphine for breakthrough pain HCV outpatient follow up DVT prophylaxis: Heparin subQ
[2021-04-13] MEDS: LORazepam 1 MG TABLET PO (10:55)
--- NOTE | 2021-04-13 11:10 | MHC.RECOVSUP ---
Recovery Support note: Patient is a 41 year old Pakistani speaking female who presented to [facility] ED due to an infection and was medically admitted. Patient is known to this account underwriter from previous consultations. This account underwriter met with patient to see how she is doing today. Patient reports she is feeling sick due to the infection and that the antibiotics are also making her feel sick. Patient understands the importance of treatment and reports she has known people who have due to infections. Patient requested sweat pants and a top stating that the clothes she came in with were soiled. This account underwriter provided these items from the donation bin. Patient requested coloring pages of sloths with motivational quotes on them which were provided and for her colored pencils to be sharpened. Patient reports no additional needs at this time. Discussed case with patient's RN.
[2021-04-13 12:04] LABS: BV Int Neg Control Negative (Negative); BV Int Pos Control Positive (Positive)
[2021-04-13 12:44] LABS: CT PCR NOT DETECTED (Not Detect.); NG PCR NOT DETECTED (Not Detect.)
[2021-04-13] MEDS: diazePAM 5 MG TABLET PO ×2 (15:30→22:01)
--- NOTE | 2021-04-13 17:35 | MHC.CARE ---
Pt called CARE Team and was upset and profane. She is presently in room 476. Pt was speaking in a loud tone bordering on yelling, stating she was upset because there is a camera in her room, she wanted to leave, and she was not being given her valium. Pt was requesting someone arrive to speak with her. CARE Team responded and met with pt who mentioned that she had been working with ?Miguelina? and ?Reagan? from the Recovery Team to find programs and community supports to assist her in her efforts in recovering from her cocaine addiction. Reagan from the Recovery team was contacted via [employer] to respond. While awaiting Reagan?s response CARE Team continued to speak with pt and provide counseling. Upon Reagan?s arrival CARE Team cleared.
[2021-04-13 18:54] LABS: Delay - Chemistry DELAY
--- NOTE | 2021-04-13 18:57 | HE.PHANOTE ---
Addendum entered by Kinjal Marin RPh 04/13/21 20:29: Trough was therapeutic at 16.1. Dione continued infusion @ 1930. Original Note: Vanco due at 1900 was started at 1830. Patient had a random level of 27 at 1100. Talked to nurse, cleo, to hold vanco until 1800 true trough level comes back. Kinjal Marin, PharmD
[2021-04-13 20:05] LABS: Vancomycin Trough 16.1 mcg/mL (10.0-20.0)
[2021-04-13] MEDS: hydrOXYzine HCL 50 MG TABLET PO (22:53)
[2021-04-14 03:36] VITALS: BP 119/57; PULSE 64; RESP 12; TEMP 36.4; O2SAT 99
[2021-04-14] MEDS: Morphine Sulfate 4 MG/ML CARTRIDGE 2 MG IVPUSH ×6 (03:40→21:48)
--- NOTE | 2021-04-14 03:45 | MHC.PIE ---
P.ANXIETY I.PT REQUESTING ATIVAN FOR HER ANXIETY, NOTIFIED.ORDER FOR ATIVAN 0.5MG PO X 1 GIVEN.PT UPDATED AND MED GIVEN E.CONT TO MONITOR.
[2021-04-14] MEDS: LORazepam 0.5 MG TABLET PO (04:45)
[2021-04-14] MEDS: vancomycin HCL 1,000 MG in 0.9 % Sodium Chloride 250 ML 20 MG IV ×2 (06:42→18:43)
[2021-04-14 07:41] VITALS: BP 117/55; PULSE 67; RESP 18; TEMP 36.9; O2SAT 95
[2021-04-14] MEDS: Nicotine 21 MG PATCH.TD24 TRANSDERMA (09:09)
[2021-04-14] MEDS: Cyanocobalamin (Vitamin B-12) 1,000 MCG TABLET 1000 MCG PO (09:09)
[2021-04-14] MEDS: Topiramate 100 MG TABLET 200 MG PO (09:09)
[2021-04-14] MEDS: hydrOXYzine HCL 50 MG TABLET PO (09:09)
[2021-04-14] MEDS: Heparin Sodium,Porcine 5,000 UNIT/ML VIAL 5000 UNIT SUBCUT ×2 (09:09→21:41)
[2021-04-14] MEDS: diazePAM 5 MG TABLET PO ×3 (09:09→21:41)
[2021-04-14] MEDS: Gabapentin 400 MG CAPSULE 800 MG PO ×3 (09:09→21:41)
[2021-04-14] MEDS: busPIRone HCl 10 MG TABLET 30 MG PO ×2 (09:09→21:41)
[2021-04-14] MEDS: metroNIDAZOLE 500 MG TABLET PO ×2 (09:10→21:41)
[2021-04-14] MEDS: Aspirin 81 MG TAB.CHEW 80 MG PO (09:10)
[2021-04-14] MEDS: Multivitamin TABLET 1 TAB PO (09:10)
[2021-04-14] MEDS: Loratadine 10 MG TABLET PO (09:10)
[2021-04-14] MEDS: lamoTRIgine 25 MG TABLET 50 MG PO (09:10)
--- NOTE | 2021-04-14 10:22 | HO.PM.IMPN ---
Subjective Subjective Date of Service: 04/14/21 Interval History: vaginal discharge Cardiovascular Cardiovascular: Reports no additional cardiovascular complaints Respiratory Respiratory: Reports no additional respiratory complaints Physical Exam Vital Signs: Vital Signs: Last Vital Signs Temp 98.4 F 04/14/21 07:41 Pulse 67 04/14/21 07:41 Resp 18 04/14/21 07:41 BP 117/55 L 04/14/21 07:41 Pulse Ox 95 04/14/21 07:41 Body Mass Index 25.8 Constitutional: aox3, not in acute distress Resp: normal respiratory effort and able to speak in complete sentences Cardio: rrr, s1s2 heard GI: Soft to palpation Auscultation: normal bowel sounds Skin: no rashes or lesions noted Neuro: patient oriented x3 , nonfocal Extrem: swelling on forearms Objective Data Current Medications Generic Name Dose Route Start Last Admin Trade Name Josesitoq PRN Reason Stop Dose Admin Acetaminophen 650 mg 04/07/21 22:48 04/13/21 08:53 Acetaminophen 325 Mg Tablet PO 650 mg Q6H PRN Administration Pain, Mild (Pain Scale 1-3) Aspirin 80 mg 04/08/21 09:00 04/14/21 09:10 Aspirin 81 Mg Tab.Chew PO 80 mg DAILY EDER Administration Buspirone HCl 30 mg 04/08/21 09:00 04/14/21 09:09 Buspirone Hcl 10 Mg Tablet PO 30 mg BID EDER Administration Cyanocobalamin 1,000 mcg 04/08/21 09:00 04/14/21 09:09 Cyanocobalamin (Vitamin B-12) 1,000 Mcg Tablet PO 1,000 mcg DAILY EDER Administration Diazepam 5 mg 04/13/21 16:00 04/14/21 09:09 Diazepam 5 Mg Tablet PO 5 mg TID EDER Administration Docusate Sodium 100 mg 04/07/21 22:48 Docusate Sodium 100 Mg Capsule PO DAILY PRN Constipation Gabapentin 800 mg 04/07/21 22:48 04/14/21 09:09 Gabapentin 400 Mg Capsule PO 800 mg TID EDER Administration Heparin Sodium (Porcine) 5,000 unit 04/07/21 22:48 04/14/21 09:09 Heparin Sodium,Porcine 5,000 Unit/Ml Vial SUBCUT 5,000 unit BID EDER Administration Hydroxyzine HCl 50 mg 04/07/21 22:48 04/14/21 09:09 Hydroxyzine Hcl 50 Mg Tablet PO 50 mg BID PRN Administration anxiety Vancomycin HCl 1,000 mg/ 270 mls @ 270 mls/hr 04/09/21 07:00 04/14/21 06:42 Sodium Chloride IV 20 mls/hr Q12H EDER Administration Lamotrigine 50 mg 04/08/21 09:00 04/14/21 09:10 Lamotrigine 25 Mg Tablet PO 50 mg DAILY EDER Administration Loratadine 10 mg 04/08/21 09:00 04/14/21 09:10 Loratadine 10 Mg Tablet PO 10 mg DAILY EDER Administration Methadone HCl 40 mg 04/13/21 09:00 04/14/21 09:09 Methadone Hcl 1 Mg/0.1 Ml Oral.Conc PO 40 mg DAILY EDER Administration Metronidazole 500 mg 04/14/21 09:00 04/14/21 09:10 Metronidazole 500 Mg Tablet PO 500 mg Q12H EDER Administration Morphine Sulfate 2 mg 04/10/21 11:24 04/14/21 07:08 Morphine Sulfate 4 Mg/Ml Cartridge IVPUSH 2 mg Q3H PRN Administration Pain, Severe (Pain Scale 7-10) Multivitamins/Vitamin C 1 tab 04/08/21 09:00 04/14/21 09:10 Multivitamin Tablet PO 1 tab DAILY EDER Administration Nicotine 21 mg 04/10/21 09:00 04/14/21 09:09 Nicotine 21 Mg Patch.Td24 TRANSDERMA 21 mg DAILY EDER Administration Nicotine Polacrilex 2 mg 04/08/21 17:38 04/13/21 08:53 Nicotine Polacrilex 2 Mg Gum BUCCAL 2 mg Q2H PRN Administration smoker Ondansetron HCl 4 mg 04/07/21 22:48 04/13/21 09:10 Ondansetron Hcl 4 Mg/2 Ml Vial IVPUSH 4 mg Q8H PRN Administration Nausea and Vomiting Pharmacy Consult 1 each 04/07/21 17:11 Consult Rx Perform Med Rec MISCELLANE ONCE PRN Consult order Pharmacy Consult 1 each 04/07/21 22:48 Consult Rx Vancomycin Dosing MISCELLANE DAILY PRN Consult order Propranolol HCl 20 mg 04/07/21 22:48 Propranolol Hcl 20 Mg Tablet PO Q6H PRN hypertension Protocol Topiramate 200 mg 04/08/21 09:00 04/14/21 09:09 Topiramate 100 Mg Tablet PO 200 mg DAILY EDER Administration Labs CBC & Chem 7: 04/13/21 07:08 04/13/21 07:08 Labs: Laboratory Results - last 24 hr 04/13/21 04/13/21 04/13/21 10:50 10:50 11:11 Specimen Comment Vancomycin Trough 27.0 H* Beverley species DNA Negative Chlam trachomat DNA PCR NOT DETECTED Gardnerella DNA Probe Negative N.gonorrhoeae DNA (PCR) NOT DETECTED Trichomonas DNA Probe Positive A 04/13/21 04/13/21 18:09 18:53 Specimen Comment DELAY Vancomycin Trough 16.1 Beverley species DNA Chlam trachomat DNA PCR Gardnerella DNA Probe N.gonorrhoeae DNA (PCR) Trichomonas DNA Probe Quality Stroke Does the patient have a stroke diagnosis?: No VTE Prior VTE?: No VTE Risk Level:: Medical - moderate - high VTE Device Contraindication: Treatment Not Indicated VTE Drug Contraindication: N/A - Med Ordered Assessment and Plan (1) MRSA bacteremia: Status: Acute (2) Abscess: Status: Acute Assessment and Plan: 41-year-old female with past medical history of IV drug who initially presented to the hospital on 04/03 with abscess, patient underwent I&D on 04/05 and was being treated for cellulitis/abscess and possible bacteremia but left AMA on 04/06. Returned with worsening symptoms MRSA bacteremia - cultures drawn on 04/03 positive for MRSA,no growth from 04/07 echocardiogram - no vegetiations continue treated with vancomycin, plan now for 6 weeks, end 05/18/21 s/p I and D once bed available,will place picc vaginal beverley diflucan 150mg once - resolved vaginal discharge positive for trichomonas flagyl 500mg bid for 7 days . UTI completed 3 days ceftriaxone for ecoli opioid dependence methadone morphine for breakthrough pain HCV outpatient follow up DVT prophylaxis: Heparin subQ
[2021-04-14] MEDS: LORazepam 1 MG TABLET PO (11:32)
--- NOTE | 2021-04-14 11:32 | MHC.RECOVSUP ---
Recovery Support note: This music writer followed up with patient to see how she is doing today. Patient reports she is feeling depressed today and is hoping to speak with a prescriber regarding her doses. Patient reports she is staying busy watching horror movies and coloring sloths. Patient is requesting her clothes be laundered. Patient is also requesting that staff take her for a walk. This music writer is currently laundering her clothes in the emergency room pod. RN aware of request to walk.
[2021-04-14 12:00] VITALS: BP 134/81; PULSE 83; RESP 20; TEMP 36.5; O2SAT 96
--- NOTE | 2021-04-14 14:01 | PM.PNORT ---
Progress Note: A&P Fall Risk Details Current Medications: Current Medications Generic Name Dose Route Start Last Admin Trade Name Josesitoq PRN Reason Stop Dose Admin Acetaminophen 650 mg 04/07/21 22:48 04/13/21 08:53 Acetaminophen 325 Mg Tablet PO 650 mg Q6H PRN Administration Pain, Mild (Pain Scale 1-3) Aspirin 80 mg 04/08/21 09:00 04/14/21 09:10 Aspirin 81 Mg Tab.Chew PO 80 mg DAILY EDER Administration Buspirone HCl 30 mg 04/08/21 09:00 04/14/21 09:09 Buspirone Hcl 10 Mg Tablet PO 30 mg BID EDER Administration Cyanocobalamin 1,000 mcg 04/08/21 09:00 04/14/21 09:09 Cyanocobalamin (Vitamin B-12) 1,000 Mcg Tablet PO 1,000 mcg DAILY EDER Administration Diazepam 5 mg 04/13/21 16:00 04/14/21 09:09 Diazepam 5 Mg Tablet PO 5 mg TID EDER Administration Docusate Sodium 100 mg 04/07/21 22:48 Docusate Sodium 100 Mg Capsule PO DAILY PRN Constipation Gabapentin 800 mg 04/07/21 22:48 04/14/21 09:09 Gabapentin 400 Mg Capsule PO 800 mg TID EDER Administration Heparin Sodium (Porcine) 5,000 unit 04/07/21 22:48 04/14/21 09:09 Heparin Sodium,Porcine 5,000 Unit/Ml Vial SUBCUT 5,000 unit BID EDER Administration Hydroxyzine HCl 50 mg 04/07/21 22:48 04/14/21 09:09 Hydroxyzine Hcl 50 Mg Tablet PO 50 mg BID PRN Administration anxiety Vancomycin HCl 1,000 mg/ 270 mls @ 270 mls/hr 04/09/21 07:00 04/14/21 06:42 Sodium Chloride IV 20 mls/hr Q12H EDER Administration Lamotrigine 50 mg 04/08/21 09:00 04/14/21 09:10 Lamotrigine 25 Mg Tablet PO 50 mg DAILY EDER Administration Loratadine 10 mg 04/08/21 09:00 04/14/21 09:10 Loratadine 10 Mg Tablet PO 10 mg DAILY EDER Administration Methadone HCl 40 mg 04/13/21 09:00 04/14/21 09:09 Methadone Hcl 1 Mg/0.1 Ml Oral.Conc PO 40 mg DAILY EDER Administration Metronidazole 500 mg 04/14/21 09:00 04/14/21 09:10 Metronidazole 500 Mg Tablet PO 500 mg Q12H EDER Administration Morphine Sulfate 2 mg 04/10/21 11:24 04/14/21 10:43 Morphine Sulfate 4 Mg/Ml Cartridge IVPUSH 2 mg Q3H PRN Administration Pain, Severe (Pain Scale 7-10) Multivitamins/Vitamin C 1 tab 04/08/21 09:00 04/14/21 09:10 Multivitamin Tablet PO 1 tab DAILY EDER Administration Nicotine 21 mg 04/10/21 09:00 04/14/21 09:09 Nicotine 21 Mg Patch.Td24 TRANSDERMA 21 mg DAILY EDER Administration Nicotine Polacrilex 2 mg 04/08/21 17:38 04/13/21 08:53 Nicotine Polacrilex 2 Mg Gum BUCCAL 2 mg Q2H PRN Administration smoker Ondansetron HCl 4 mg 04/07/21 22:48 04/13/21 09:10 Ondansetron Hcl 4 Mg/2 Ml Vial IVPUSH 4 mg Q8H PRN Administration Nausea and Vomiting Pharmacy Consult 1 each 04/07/21 17:11 Consult Rx Perform Med Rec MISCELLANE ONCE PRN Consult order Pharmacy Consult 1 each 04/07/21 22:48 Consult Rx Vancomycin Dosing MISCELLANE DAILY PRN Consult order Propranolol HCl 20 mg 04/07/21 22:48 Propranolol Hcl 20 Mg Tablet PO Q6H PRN hypertension Protocol Topiramate 200 mg 04/08/21 09:00 04/14/21 09:09 Topiramate 100 Mg Tablet PO 200 mg DAILY EDER Administration Time Spent With Patient Time: Total time spent is greater than 50% in coordination of care (as documented) at patient's floor/unit and/or counseling patient: Time with patient: less than 15 minutes Subjective Subjective Date of Service: 04/14/21 Principal diagnosis: right forearm abcess Interval history: c/o pain although less than prior Physical Exam Vital Signs: Vital Signs: Last Vital Signs Temp 97.7 F 04/14/21 12:00 Pulse 83 04/14/21 12:00 Resp 20 04/14/21 12:00 BP 134/81 04/14/21 12:00 Pulse Ox 96 04/14/21 12:00 Body Mass Index 25.8 Extrem: Other: using bilateral hands comfortably and without pain resolving abcess/granuloma no further orthopaedic intervention recommended cont dry dressing changes and abx per ID Ortho f/u 1 week +/- Procedures Date of Service Date of Service: 04/14/21 Quality Stroke Does the patient have a stroke diagnosis?: No VTE Prior VTE?: No VTE Risk Level:: Medical - moderate - high VTE Device Contraindication: Treatment Not Indicated VTE Drug Contraindication: N/A - Med Ordered
[2021-04-14 15:05] VITALS: BP 110/55; PULSE 69; RESP 20; TEMP 36.9; O2SAT 98
[2021-04-14 19:04] VITALS: BP 121/55; PULSE 74; RESP 20; TEMP 36.7; O2SAT 95
[2021-04-14] MEDS: Acetaminophen 325 MG TABLET 650 MG PO (19:28)
[2021-04-15 05:48] VITALS: BP 136/67; PULSE 67; RESP 18; TEMP 37; O2SAT 98
[2021-04-15] MEDS: Morphine Sulfate 4 MG/ML CARTRIDGE 2 MG IVPUSH ×3 (05:50→23:01)
[2021-04-15 07:05] VITALS: BP 105/58; PULSE 73; RESP 20; TEMP 36.6; O2SAT 100
[2021-04-15] MEDS: Gabapentin 400 MG CAPSULE 800 MG PO ×3 (09:36→21:35)
[2021-04-15] MEDS: Aspirin 81 MG TAB.CHEW 80 MG PO (09:36)
[2021-04-15] MEDS: Loratadine 10 MG TABLET PO (09:37)
[2021-04-15] MEDS: Topiramate 100 MG TABLET 200 MG PO (09:37)
[2021-04-15] MEDS: diazePAM 5 MG TABLET PO ×3 (09:37→21:35)
[2021-04-15] MEDS: Cyanocobalamin (Vitamin B-12) 1,000 MCG TABLET 1000 MCG PO (09:37)
[2021-04-15] MEDS: busPIRone HCl 10 MG TABLET 30 MG PO ×2 (09:37→21:35)
[2021-04-15] MEDS: metroNIDAZOLE 500 MG TABLET PO ×2 (09:37→21:35)
[2021-04-15] MEDS: lamoTRIgine 25 MG TABLET 50 MG PO (09:37)
[2021-04-15] MEDS: oxyCODONE HCl Immed Release 5 MG TABLET PO ×2 (09:38→14:45)
[2021-04-15] MEDS: Multivitamin TABLET 1 TAB PO (09:38)
[2021-04-15] MEDS: Nicotine 21 MG PATCH.TD24 TRANSDERMA (09:43)
[2021-04-15] MEDS: Nicotine Polacrilex 2 MG GUM BUCCAL ×2 (09:47→23:01)
[2021-04-15] MEDS: LORazepam 1 MG TABLET PO (09:47)
--- NOTE | 2021-04-15 10:03 | HO.PM.IMPN ---
Assessment and Plan (1) MRSA bacteremia: Status: Acute (2) Abscess: Status: Acute Assessment and Plan: 41-year-old female with past medical history of IV drug who initially presented to the hospital on 04/03 with abscess, patient underwent I&D on 04/05 and was being treated for cellulitis/abscess and possible bacteremia but left AMA on 04/06. Returned with worsening symptoms MRSA bacteremia - cultures drawn on 04/03 positive for MRSA,no growth from 04/07 echocardiogram - no vegetiations continue treated with vancomycin, plan now for 6 weeks, end 05/18/21 s/p I and D picc line today as no access vaginal aj diflucan 150mg once - resolved vaginal discharge positive for trichomonas flagyl 500mg bid day 10/28 . UTI completed 3 days ceftriaxone for ecoli opioid dependence methadone morphine for breakthrough pain HCV outpatient follow up DVT prophylaxis: Heparin subQ Subjective Subjective Date of Service: 04/15/21 Interval History: anxioues Cardiovascular Cardiovascular: Reports no additional cardiovascular complaints Genitourinary Genitourinary: Reports no additional female genitourinary complaints Physical Exam Vital Signs: Vital Signs: Last Vital Signs Temp 98 F 04/15/21 07:05 Pulse 73 04/15/21 07:05 Resp 20 04/15/21 07:05 BP 105/58 L 04/15/21 07:05 Pulse Ox 100 04/15/21 07:05 Body Mass Index 25.8 Constitutional: aox3, not in acute distress Resp: normal respiratory effort and able to speak in complete sentences Cardio: rrr, s1s2 heard GI: Soft to palpation Auscultation: normal bowel sounds Skin: no rashes or lesions noted Neuro: patient oriented x3 , nonfocal Extrem: swelling on forearms Objective Data Current Medications Generic Name Dose Route Start Last Admin Trade Name Freq PRN Reason Stop Dose Admin Acetaminophen 650 mg 04/07/21 22:48 04/14/21 19:28 Acetaminophen 325 Mg Tablet PO 650 mg Q6H PRN Administration Pain, Mild (Pain Scale 1-3) Aspirin 81 mg 04/16/21 09:00 Aspirin 81 Mg Tab.Chew PO DAILY EDER Buspirone HCl 30 mg 04/08/21 09:00 04/15/21 09:37 Buspirone Hcl 10 Mg Tablet PO 30 mg BID [facility] Administration Cyanocobalamin 1,000 mcg 04/08/21 09:00 04/15/21 09:37 Cyanocobalamin (Vitamin B-12) 1,000 Mcg Tablet PO 1,000 mcg DAILY EDER Administration Diazepam 5 mg 04/13/21 16:00 04/15/21 09:37 Diazepam 5 Mg Tablet PO 5 mg TID EDER Administration Docusate Sodium 100 mg 04/07/21 22:48 Docusate Sodium 100 Mg Capsule PO DAILY PRN Constipation Gabapentin 800 mg 04/07/21 22:48 04/15/21 09:36 Gabapentin 400 Mg Capsule PO 800 mg TID EDER Administration Heparin Sodium (Porcine) 5,000 unit 04/07/21 22:48 04/14/21 21:41 Heparin Sodium,Porcine 5,000 Unit/Ml Vial SUBCUT 5,000 unit BID EDER Administration Hydroxyzine HCl 50 mg 04/07/21 22:48 04/14/21 09:09 Hydroxyzine Hcl 50 Mg Tablet PO 50 mg BID PRN Administration anxiety Vancomycin HCl 1,000 mg/ 270 mls @ 270 mls/hr 04/09/21 07:00 04/15/21 09:36 Sodium Chloride IV Not Given Q12H [facility] Lamotrigine 50 mg 04/08/21 09:00 04/15/21 09:37 Lamotrigine 25 Mg Tablet PO 50 mg DAILY EDER Administration Loratadine 10 mg 04/08/21 09:00 04/15/21 09:37 Loratadine 10 Mg Tablet PO 10 mg DAILY EDER Administration Methadone HCl 40 mg 04/13/21 09:00 04/15/21 09:38 Methadone Hcl 1 Mg/0.1 Ml Oral.Conc PO 40 mg DAILY EDER Administration Metronidazole 500 mg 04/14/21 09:00 04/15/21 09:37 Metronidazole 500 Mg Tablet PO 500 mg Q12H EDER Administration Morphine Sulfate 2 mg 04/10/21 11:24 04/15/21 05:50 Morphine Sulfate 4 Mg/Ml Cartridge IVPUSH 2 mg Q3H PRN Administration Pain, Severe (Pain Scale 7-10) Multivitamins/Vitamin C 1 tab 04/08/21 09:00 04/15/21 09:38 Multivitamin Tablet PO 1 tab DAILY EDER Administration Nicotine 21 mg 04/10/21 09:00 04/15/21 09:43 Nicotine 21 Mg Patch.Td24 TRANSDERMA 21 mg DAILY EDER Administration Nicotine Polacrilex 2 mg 04/08/21 17:38 04/15/21 09:47 Nicotine Polacrilex 2 Mg Gum BUCCAL 2 mg Q2H PRN Administration smoker Ondansetron HCl 4 mg 04/07/21 22:48 04/13/21 09:10 Ondansetron Hcl 4 Mg/2 Ml Vial IVPUSH 4 mg Q8H PRN Administration Nausea and Vomiting Oxycodone HCl 5 mg 04/15/21 08:36 04/15/21 09:38 Oxycodone Hcl Immed Release 5 Mg Tablet PO 5 mg Q6H PRN Administration pain Pharmacy Consult 1 each 04/07/21 17:11 Consult Rx Perform Med Rec MISCELLANE ONCE PRN Consult order Propranolol HCl 20 mg 04/07/21 22:48 Propranolol Hcl 20 Mg Tablet PO Q6H PRN hypertension Protocol Topiramate 200 mg 04/08/21 09:00 04/15/21 09:37 Topiramate 100 Mg Tablet PO 200 mg DAILY EDER Administration Labs CBC & Chem 7: 04/13/21 07:08 04/13/21 07:08 Quality Stroke Does the patient have a stroke diagnosis?: No VTE Prior VTE?: No VTE Risk Level:: Medical - moderate - high VTE Device Contraindication: Treatment Not Indicated VTE Drug Contraindication: N/A - Med Ordered
[2021-04-15 11:07] LABS: Creatinine Clr Calc Pharmacy 83.1; Estimated Glomerular Filt Rate > 60
[2021-04-15 11:08] VITALS: BP 121/62; PULSE 71; RESP 18; TEMP 36.2; O2SAT 98
--- NOTE | 2021-04-15 11:29 | MHC.CM.PN ---
Per ROUNDS discussion, Patient may be getting her PICC today. [facility] is the only area option for dc (IVDA HX & Methadone) but they continue to not have a female bed available. CM will follow.
--- NOTE | 2021-04-15 13:02 | MHC.RECOVRN ---
T/w met with pt to check in and discuss hospital stay thus far. Pt reports receiving PICC line today, unsure of d/c date to SNF. Pt visibly anxious, pacing, hyperverbal. Pt states I don't want to be like this, I can't take this anxiety. Pt reports that clonazepam had been switched to diazepam, which pt does not find as helpful. Pt reports being prescribed medications from [facility] in [place]. Pt also interested in increasing methadone dose. Pt requesting letter stating dates of hospital stay as well as personal statement faxed to [employer]. JOSE obtained. Discussed with Liset Brambila APRN.
[2021-04-15] MEDS: hydrOXYzine HCL 50 MG TABLET PO (14:17)
[2021-04-15] MEDS: LORazepam 0.5 MG TABLET PO (14:17)
[2021-04-15] MEDS: diazePAM 10 MG TABLET PO (16:09)
--- NOTE | 2021-04-15 16:30 | MHC.RECOVRN ---
Addendum entered by Miguelina Solano 04/16/21 11:10: Case discussed with Liset Brambila APRN. Diazepam 10 mg PO ordered. Pt received with positive effect. Original Note: T/w received a phone call from pt. Pt crying, reporting desire to discharge due to [employer] not reinstating pts benefits if pt is hospitalized longer than 30 days. T/w met with pt in 476. Pt stating I just want to fucking . I'm going to hang myself with this fucking belt in my room. Pt also reporting pain and not receiving appropriate medication since IV was removed. T/w discussed with pt that the plan is to not be hospitalized longer than 30 days. Pt is expected to complete IV antibiotics on 05/04. Pt would like t/w to call SS with pt to confirm that benefits will be reinstated. Plan to call SS tomorrow morning. After discussion, pt denies SI/HI. Pt states I'm not going to do anything. I was just frustrated. I promise. Pt brought to ultrasound to receive midline. Will continue to follow.
--- NOTE | 2021-04-15 16:37 | P.PNADD_ITS ---
Subjective Subjective Date of Service: 04/15/21 Reason For Visit: Cellulitis/Abscess Interim History: Patient visibly anxious, restless. Reporting multiple concerns including social security benefits potentially being stopped while inpatient and feeling overall anxious and like medications are not addressing her needs. Patient perseverating and asking for changes in her benzodiazepines. Discussed increasing current mood stabilizer which patient reports she had previously been on at 150mg QD (currently ordered at 50mg QD), unclear what patient's engagement in treatment was prior to admission, but she has tolerated 50mg dose with no side effects or sign of rash. Review of Systems Gastrointestinal: Denies loose stools and Denies nausea Musculoskeletal: Denies myalgias Psychiatric: Reports anxiety, Reports irritability, Reports mood swings and Reports panic attacks Mental Status Exam Mental Status Exam Patient Appearance: Well Grooomed and Appropriate Patient Orientation: Person, Place, Time and Situation Level of Consciousness: Awake, Appropriate and Restless Patient Behavior: Restless and Anxious Mood Description: Anxious and Expansive Affect Description: Anxious and Expansive Ability to Follow Directions: Good Speech Pattern: Clear and Perseverating Delusions: Not Present Thought Process: Rumination and Goal Oriented Thought Content: positive for Circumstantial and positive for Preoccupation Depressive Symptoms: Increased Anxiety and Increased Irritability Judgement: Fair Diagnostics Vital Signs (24Hr): Vital Signs - 24 hr 04/14/21 19:04 04/15/21 05:48 04/15/21 07:05 Temperature 98.1 F 98.6 F 98 F Pulse Rate 74 67 73 Respiratory Rate 20 18 20 Blood Pressure 121/55 L 136/67 105/58 L Pulse Oximetry 95 98 100 04/15/21 11:08 Temperature 97.1 F Pulse Rate 71 Respiratory Rate 18 Blood Pressure 121/62 Pulse Oximetry 98 Body Mass Index 25.8 Labs Results: 04/13/21 07:08 04/15/21 10:33 Labs: Laboratory Results - last 48 hr 04/13/21 04/13/21 04/15/21 18:09 18:53 10:33 Creatinine 0.89 Estim Creat Clear Calc 83.1 Estimated GFR > 60 Specimen Comment DELAY Vancomycin Trough 16.1 Imaging Radiology Impressions: ITS Impressions Venous Duplex 04/07/21 17:11 IMPRESSION: No DVT demonstrated in the right upper extremity. Medications Medications Current Medications Generic Name Dose Route Start Last Admin Trade Name Freq PRN Reason Stop Dose Admin Acetaminophen 650 mg 04/07/21 22:48 04/14/21 19:28 Acetaminophen 325 Mg Tablet PO 650 mg Q6H PRN Administration Pain, Mild (Pain Scale 1-3) Aspirin 81 mg 04/16/21 09:00 Aspirin 81 Mg Tab.Chew PO DAILY [facility] Buspirone HCl 30 mg 04/08/21 09:00 04/15/21 09:37 Buspirone Hcl 10 Mg Tablet PO 30 mg BID EDER Administration Cyanocobalamin 1,000 mcg 04/08/21 09:00 04/15/21 09:37 Cyanocobalamin (Vitamin B-12) 1,000 Mcg Tablet PO 1,000 mcg DAILY [facility] Administration Diazepam 5 mg 04/13/21 16:00 04/15/21 14:17 Diazepam 5 Mg Tablet PO 5 mg TID [facility] Administration Diazepam 10 mg 04/15/21 15:27 04/15/21 16:09 Diazepam 10 Mg Tablet PO 10 mg DAILY PRN Administration anxiety/restlessness Docusate Sodium 100 mg 04/07/21 22:48 Docusate Sodium 100 Mg Capsule PO DAILY PRN Constipation Gabapentin 800 mg 04/07/21 22:48 04/15/21 14:16 Gabapentin 400 Mg Capsule PO 800 mg TID [facility] Administration Heparin Sodium (Porcine) 5,000 unit 04/07/21 22:48 04/15/21 11:22 Heparin Sodium,Porcine 5,000 Unit/Ml Vial SUBCUT Not Given BID [facility] Hydroxyzine HCl 50 mg 04/07/21 22:48 04/15/21 14:17 Hydroxyzine Hcl 50 Mg Tablet PO 50 mg BID PRN Administration anxiety Vancomycin HCl 1,000 mg/ 270 mls @ 270 mls/hr 04/09/21 07:00 04/15/21 09:36 Sodium Chloride IV Not Given Q12H [facility] Lamotrigine 75 mg 04/16/21 09:00 Lamotrigine 25 Mg Tablet PO DAILY [facility] Loratadine 10 mg 04/08/21 09:00 04/15/21 09:37 Loratadine 10 Mg Tablet PO 10 mg DAILY [facility] Administration Magnesium Hydroxide 15 ml 04/15/21 14:03 Milk Of Magnesia 30 Ml Oral.Susp PO BID PRN heartburn, nausea Methadone HCl 40 mg 04/13/21 09:00 04/15/21 09:38 Methadone Hcl 1 Mg/0.1 Ml Oral.Conc PO 40 mg DAILY EDER Administration Metronidazole 500 mg 04/14/21 09:00 04/15/21 09:37 Metronidazole 500 Mg Tablet PO 500 mg Q12H EDER Administration Morphine Sulfate 2 mg 04/10/21 11:24 04/15/21 05:50 Morphine Sulfate 4 Mg/Ml Cartridge IVPUSH 2 mg Q3H PRN Administration Pain, Severe (Pain Scale 7-10) Multivitamins/Vitamin C 1 tab 04/08/21 09:00 04/15/21 09:38 Multivitamin Tablet PO 1 tab DAILY EDER Administration Nicotine 21 mg 04/10/21 09:00 04/15/21 09:43 Nicotine 21 Mg Patch.Td24 TRANSDERMA 21 mg DAILY EDER Administration Nicotine Polacrilex 2 mg 04/08/21 17:38 04/15/21 09:47 Nicotine Polacrilex 2 Mg Gum BUCCAL 2 mg Q2H PRN Administration smoker Ondansetron HCl 4 mg 04/07/21 22:48 04/13/21 09:10 Ondansetron Hcl 4 Mg/2 Ml Vial IVPUSH 4 mg Q8H PRN Administration Nausea and Vomiting Oxycodone HCl 5 mg 04/15/21 14:22 04/15/21 14:45 Oxycodone Hcl Immed Release 5 Mg Tablet PO 5 mg Q4H PRN Administration pain Pharmacy Consult 1 each 04/07/21 17:11 Consult Rx Perform Med Rec MISCELLANE ONCE PRN Consult order Propranolol HCl 20 mg 04/07/21 22:48 Propranolol Hcl 20 Mg Tablet PO Q6H PRN hypertension Protocol Topiramate 200 mg 04/08/21 09:00 04/15/21 09:37 Topiramate 100 Mg Tablet PO 200 mg DAILY EDER Administration Allergies Allergies Allergy/AdvReac Type Severity Reaction Status Date / Time azithromycin [AZITHROMYCIN] Allergy Unknown UNK Verified 04/07/21 17:15 erythromycin base Allergy Unknown RASH Verified 04/07/21 17:15 [ERYTHROMYCIN BASE] olanzapine [From ZYPREXA] Allergy Unknown PEDAL EDEMA Verified 04/07/21 17:15 quetiapine [From SEROQUEL] Allergy Unknown THROAT Verified 04/07/21 17:15 SWELLING risperidone [From RISPERDAL] Allergy Unknown TWITCHING Verified 04/07/21 17:15 shellfish derived Allergy Unknown VOMITING Verified 07/18/21 17:15 [SHELLFISH DERIVED] sulfamethoxazole Allergy Unknown ITCHING Verified 04/07/21 17:15 [From BACTRIM] trimethoprim [From BACTRIM] Allergy Unknown ITCHING Verified 04/07/21 17:15 arithromiosin Allergy Unknown Unknown Uncoded 08/24/20 16:06 gluten Allergy Unknown Unknown Uncoded 08/24/20 16:06 sea food Allergy Unknown Unknown Uncoded 08/24/20 16:06 Sulfacet-R Allergy Unknown Unknown Uncoded 08/24/20 16:06 SEAFOOD AdvReac Unknown VOMIT Uncoded 06/07/20 15:47 Assessment & Plan Assessment & Plan (1) Opioid use disorder, severe, dependence: Status: Acute Code(s): F11.20 - Opioid dependence, uncomplicated Assessment and Plan: * methadone stable at 40mg QD; denies any withdrawal sx * awaiting admission to SNF to finish IV abx * letter written and forms faxed to social security as patient requested (2) Bipolar 1 disorder: Status: Acute Code(s): F31.9 - Bipolar disorder, unspecified Assessment and Plan: * Lamictal increased to 75mg QD * PRN Diazepam ordered. (should not be discharged to SNF with this) * patient may benefit from antipsychotic to address sx, but is declining this option at this time Greater than 50% of the session was spent on counseling and/or coordination of care Reason for contiued inpatient stay Substantial Risk for: other
--- NOTE | 2021-04-15 16:52 | HO.MIDLINE ---
PICC Line Insertion MIDLINE INSERTION Diagnosis: ABSCESS Indication: NEEDS IV ACCESS FOR IV ANTIBIOTICS Pertinent Labs: REVIEWED Technique: Using sterile technique including cap and mask, glove and drape, the LEFT arm was prepped and draped in the usual sterile fashion of full barrier technique with CHG. Using ultrasound guidance, BASILIC vein access was obtained IN SINGLE ATTEMPT BY THIS RN. A SINGLE LUMEN, NON-PASV, (20G x 8CM) MIDLINE was positioned. The procedure was performed in S-272. Ultrasound was used to document vein patency and for needle entry. A formal ultrasound picture was recorded. Vascular [employer] Analyst has released the line for use and it is currently dressed with a StatLock, Tegaderm, and CHG disc. Verification has been performed for blood return and line patency. Arm Circumference: 36.5 CM Equipment: [employer] POWERGLIDE PRO MIDLINE Catheter Type: SINGLE LUMEN, NON-PASV, (20G X 8CM) Lot #: [id number]
[2021-04-15 19:18] VITALS: PULSE 72; RESP 20; TEMP 36.1; O2SAT 98
[2021-04-15 19:24] LABS: Vancomycin Trough 6.5 mcg/mL (10.0-20.0)
[2021-04-15] MEDS: vancomycin HCL 1,000 MG in 0.9 % Sodium Chloride 250 ML 250 MG IV (21:33)
[2021-04-15] MEDS: Heparin Sodium,Porcine 5,000 UNIT/ML VIAL 5000 UNIT SUBCUT (21:43)
[2021-04-15 23:01] VITALS: RESP 16
[2021-04-15] MEDS: Heparin Sodium,Porcine Flush 50 UNITS, 0.9 % Sodium Chloride Flush 5 ML IVFLUSH (23:02)
[2021-04-15 23:19] VITALS: BP 114/57; PULSE 66; RESP 18; TEMP 36.8; O2SAT 98
[2021-04-16] MEDS: Morphine Sulfate 4 MG/ML CARTRIDGE 2 MG IVPUSH ×6 (01:30→18:09)
[2021-04-16] MEDS: Nicotine Polacrilex 2 MG GUM BUCCAL ×4 (03:46→20:33)
[2021-04-16] MEDS: Acetaminophen 325 MG TABLET 650 MG PO ×2 (03:46→18:08)
[2021-04-16 03:51] VITALS: RESP 22
[2021-04-16 07:23] VITALS: BP 133/77; PULSE 75; RESP 18; TEMP 36.6; O2SAT 98
[2021-04-16] MEDS: metroNIDAZOLE 500 MG TABLET PO ×2 (08:22→20:32)
[2021-04-16] MEDS: Nicotine 21 MG PATCH.TD24 TRANSDERMA (08:22)
[2021-04-16] MEDS: Heparin Sodium,Porcine Flush 50 UNITS, 0.9 % Sodium Chloride Flush 5 ML IVFLUSH ×3 (08:22→20:33)
[2021-04-16] MEDS: Multivitamin TABLET 1 TAB PO (08:23)
[2021-04-16] MEDS: Topiramate 100 MG TABLET 200 MG PO (08:23)
[2021-04-16] MEDS: busPIRone HCl 10 MG TABLET 30 MG PO ×2 (08:23→20:33)
[2021-04-16] MEDS: lamoTRIgine 25 MG TABLET 75 MG PO (08:23)
[2021-04-16] MEDS: Gabapentin 400 MG CAPSULE 800 MG PO ×3 (08:24→20:33)
[2021-04-16] MEDS: Cyanocobalamin (Vitamin B-12) 1,000 MCG TABLET 1000 MCG PO (08:24)
[2021-04-16] MEDS: diazePAM 5 MG TABLET PO ×3 (08:24→20:33)
[2021-04-16] MEDS: Aspirin 81 MG TAB.CHEW PO (08:24)
[2021-04-16] MEDS: Loratadine 10 MG TABLET PO (08:24)
[2021-04-16] MEDS: diazePAM 10 MG TABLET PO (08:36)
[2021-04-16] MEDS: vancomycin HCL 1,000 MG in 0.9 % Sodium Chloride 250 ML 270 MG IV ×2 (10:00→21:56)
[2021-04-16] MEDS: oxyCODONE HCl Immed Release 5 MG TABLET PO ×3 (10:49→20:36)
--- NOTE | 2021-04-16 11:07 | MHC.RECOVRN ---
Met with pt in 476 to call Social Security. Pt requesting to go for a walk. T/w took pt for a walk. Upon returning to room, pt called SS. After validation that pt is expected to be admitted to [facility] less than 30 days, pt informed that benefits will be reinstated beginning in April. Pt happy and thankful. Pt aware t/w available as needed. Discussed with Liset Brambila APRN.
[2021-04-16 11:12] VITALS: BP 137/64; PULSE 71; RESP 17; TEMP 36.4; O2SAT 98
--- NOTE | 2021-04-16 12:26 | HO.PM.IMPN ---
Subjective Subjective Date of Service: 04/16/21 Interval History: anxious Cardiovascular Cardiovascular: Reports no additional cardiovascular complaints Gastrointestinal Gastrointestinal: Reports no additional gastrointestinal complaints Physical Exam Vital Signs: Vital Signs: Last Vital Signs Temp 97.6 F 04/16/21 11:12 Pulse 71 04/16/21 11:12 Resp 17 04/16/21 11:12 BP 137/64 04/16/21 11:12 Pulse Ox 98 04/16/21 11:12 Body Mass Index 25.8 Constitutional: aox3, not in acute distress Resp: normal respiratory effort and able to speak in complete sentences Cardio: rrr, s1s2 heard GI: Soft to palpation Auscultation: normal bowel sounds Skin: no rashes or lesions noted Neuro: patient oriented x3 , nonfocal Extrem: swelling on forearms Objective Data Current Medications Generic Name Dose Route Start Last Admin Trade Name Josesitoq PRN Reason Stop Dose Admin Acetaminophen 650 mg 04/07/21 22:48 04/16/21 03:46 Acetaminophen 325 Mg Tablet PO 650 mg Q6H PRN Administration Pain, Mild (Pain Scale 1-3) Aspirin 81 mg 04/16/21 09:00 04/16/21 08:24 Aspirin 81 Mg Tab.Chew PO 81 mg DAILY EDER Administration Buspirone HCl 30 mg 04/08/21 09:00 04/16/21 08:23 Buspirone Hcl 10 Mg Tablet PO 30 mg BID EDER Administration Heparin Sodium (Porcine) 50 0 units 04/15/21 21:00 04/16/21 08:22 units/ Sodium Chloride 5 ml IVFLUSH 50 unit TID EDER Administration Cyanocobalamin 1,000 mcg 04/08/21 09:00 04/16/21 08:24 Cyanocobalamin (Vitamin B-12) 1,000 Mcg Tablet PO 1,000 mcg DAILY EDER Administration Diazepam 5 mg 04/13/21 16:00 04/16/21 08:24 Diazepam 5 Mg Tablet PO 5 mg TID EDER Administration Diazepam 10 mg 04/15/21 15:27 04/16/21 08:36 Diazepam 10 Mg Tablet PO 10 mg DAILY PRN Administration anxiety/restlessness Docusate Sodium 100 mg 04/07/21 22:48 Docusate Sodium 100 Mg Capsule PO DAILY PRN Constipation Gabapentin 800 mg 04/07/21 22:48 04/16/21 08:24 Gabapentin 400 Mg Capsule PO 800 mg TID EDER Administration Heparin Sodium (Porcine) 5,000 unit 04/07/21 22:48 04/16/21 08:39 Heparin Sodium,Porcine 5,000 Unit/Ml Vial SUBCUT Not Given BID EDER Hydroxyzine HCl 50 mg 04/07/21 22:48 04/15/21 14:17 Hydroxyzine Hcl 50 Mg Tablet PO 50 mg BID PRN Administration anxiety Vancomycin HCl 1,000 mg/ 270 mls @ 270 mls/hr 04/16/21 10:00 04/16/21 11:23 Sodium Chloride IV Infused Q12H EDER Infusion Lamotrigine 75 mg 04/16/21 09:00 04/16/21 08:23 Lamotrigine 25 Mg Tablet PO 75 mg DAILY EDER Administration Loratadine 10 mg 04/08/21 09:00 04/16/21 08:24 Loratadine 10 Mg Tablet PO 10 mg DAILY EDER Administration Magnesium Hydroxide 15 ml 04/15/21 14:03 Milk Of Magnesia 30 Ml Oral.Susp PO BID PRN heartburn, nausea Methadone HCl 40 mg 04/13/21 09:00 04/16/21 10:00 Methadone Hcl 1 Mg/0.1 Ml Oral.Conc PO 40 mg DAILY EDER Administration Metronidazole 500 mg 04/14/21 09:00 04/16/21 08:22 Metronidazole 500 Mg Tablet PO 500 mg Q12H DEER Administration Morphine Sulfate 2 mg 04/10/21 11:24 04/16/21 12:06 Morphine Sulfate 4 Mg/Ml Cartridge IVPUSH 2 mg Q3H PRN Administration Pain, Severe (Pain Scale 7-10) Multivitamins/Vitamin C 1 tab 04/08/21 09:00 04/16/21 08:23 Multivitamin Tablet PO 1 tab DAILY EDER Administration Nicotine 21 mg 04/10/21 09:00 04/16/21 08:22 Nicotine 21 Mg Patch.Td24 TRANSDERMA 21 mg DAILY EDER Administration Nicotine Polacrilex 2 mg 04/08/21 17:38 04/16/21 08:36 Nicotine Polacrilex 2 Mg Gum BUCCAL 2 mg Q2H PRN Administration smoker Ondansetron HCl 4 mg 04/07/21 22:48 04/13/21 09:10 Ondansetron Hcl 4 Mg/2 Ml Vial IVPUSH 4 mg Q8H PRN Administration Nausea and Vomiting Oxycodone HCl 5 mg 04/15/21 14:22 04/16/21 10:49 Oxycodone Hcl Immed Release 5 Mg Tablet PO 5 mg Q4H PRN Administration pain Pharmacy Consult 1 each 04/07/21 17:11 Consult Rx Perform Med Rec MISCELLANE ONCE PRN Consult order Propranolol HCl 20 mg 04/07/21 22:48 Propranolol Hcl 20 Mg Tablet PO Q6H PRN hypertension Protocol Topiramate 200 mg 04/08/21 09:00 04/16/21 08:23 Topiramate 100 Mg Tablet PO 200 mg DAILY EDER Administration Labs CBC & Chem 7: 04/13/21 07:08 04/15/21 10:33 Labs: Laboratory Results - last 24 hr 04/15/21 18:30 Vancomycin Trough 6.5 L Assessment and Plan (1) MRSA bacteremia: Status: Acute (2) Abscess: Status: Acute Assessment and Plan: 41-year-old female with past medical history of IV drug who initially presented to the hospital on 04/03 with abscess, patient underwent I&D on 04/05 and was being treated for cellulitis/abscess and possible bacteremia but left AMA on 04/06. Returned with worsening symptoms MRSA bacteremia - cultures drawn on 04/03 positive for MRSA,no growth from 04/07 echocardiogram - no vegetiations continue treated with vancomycin, plan now for 6 weeks, end 05/18/21 s/p I and D midline placed 04/15/21 (can stay in for up to 6 weeks) vaginal aj diflucan 150mg once - resolved vaginal discharge positive for trichomonas flagyl 500mg bid day 3/ . UTI completed 3 days ceftriaxone for ecoli opioid dependence methadone morphine for breakthrough pain HCV outpatient follow up DVT prophylaxis: Heparin subQ Quality Stroke Does the patient have a stroke diagnosis?: No VTE Prior VTE?: No VTE Risk Level:: Medical - moderate - high VTE Device Contraindication: Treatment Not Indicated VTE Drug Contraindication: N/A - Med Ordered
[2021-04-16] MEDS: ondansetron HCL 4 MG/2 ML VIAL IVPUSH (14:46)
[2021-04-16 14:55] VITALS: BP 114/57; PULSE 63; RESP 20; TEMP 36; O2SAT 99
[2021-04-16 19:03] VITALS: BP 116/60; PULSE 57; RESP 20; TEMP 36; O2SAT 99
[2021-04-16] MEDS: Heparin Sodium,Porcine 5,000 UNIT/ML VIAL 5000 UNIT SUBCUT (20:32)
[2021-04-16] MEDS: Zolpidem Tartrate 5 MG TABLET PO (21:56)
[2021-04-16 23:02] VITALS: BP 122/55; PULSE 60; RESP 20; TEMP 36.4; O2SAT 97
[2021-04-17] MEDS: oxyCODONE HCl Immed Release 5 MG TABLET PO ×4 (01:59→13:09)
[2021-04-17 02:00] VITALS: RESP 16
[2021-04-17] MEDS: Morphine Sulfate 4 MG/ML CARTRIDGE 2 MG IVPUSH ×4 (02:00→11:33)
[2021-04-17 07:27] VITALS: BP 118/69; PULSE 75; RESP 18; TEMP 36.4; O2SAT 99
[2021-04-17] MEDS: diazePAM 10 MG TABLET PO (08:14)
[2021-04-17] MEDS: Nicotine 21 MG PATCH.TD24 TRANSDERMA (08:14)
[2021-04-17] MEDS: metroNIDAZOLE 500 MG TABLET PO ×2 (08:14→21:14)
[2021-04-17] MEDS: Gabapentin 400 MG CAPSULE 800 MG PO ×3 (08:15→21:13)
[2021-04-17] MEDS: busPIRone HCl 10 MG TABLET 30 MG PO ×2 (08:15→21:13)
[2021-04-17] MEDS: Multivitamin TABLET 1 TAB PO (08:15)
[2021-04-17] MEDS: lamoTRIgine 25 MG TABLET 75 MG PO (08:15)
[2021-04-17] MEDS: Topiramate 100 MG TABLET 200 MG PO (08:15)
[2021-04-17] MEDS: Loratadine 10 MG TABLET PO (08:15)
[2021-04-17] MEDS: diazePAM 5 MG TABLET PO ×3 (08:15→21:13)
[2021-04-17] MEDS: Aspirin 81 MG TAB.CHEW PO (08:15)
[2021-04-17] MEDS: Cyanocobalamin (Vitamin B-12) 1,000 MCG TABLET 1000 MCG PO (08:15)
[2021-04-17] MEDS: Heparin Sodium,Porcine Flush 50 UNITS, 0.9 % Sodium Chloride Flush 5 ML IVFLUSH ×3 (08:57→21:15)
--- NOTE | 2021-04-17 08:59 | MHC.RECOVRN ---
T/w received call from [employer] for [employer] [facility]. Received pts referral for placement after antibiotics are completed. Request to update Lorena at [phone] when pt transfers to [facility].
[2021-04-17 11:27] LABS: Vancomycin Trough 14.2 mcg/mL (10.0-20.0)
[2021-04-17 11:30] VITALS: BP 157/63; PULSE 68; RESP 17; TEMP 36.3; O2SAT 100
[2021-04-17] MEDS: Nicotine Polacrilex 2 MG GUM BUCCAL (11:33)
[2021-04-17] MEDS: Acetaminophen 325 MG TABLET 650 MG PO ×2 (11:33→17:38)
--- NOTE | 2021-04-17 11:43 | HO.ADDICTPRO ---
Subjective Subjective Date of Service: 04/17/21 Reason For Visit: Cellulitis/Abscess Interim History: Patient irritable reporting that feels she is not being listened to. Wants to have her benzodiazepines changed from Valium to Klonopin. Reports PRN that was added is not working . Declines any other medication interventions offered. Numerous requests including faxing forms and obtaining phone numbers. Review of Systems Review of Systems unchanged. patient denies pain, but reporting worsening anxiety and irritability Mental Status Exam Mental Status Exam Narrative: awake, alert, oriented, dressed and make up on. loud, pressured speech. irritable, tangential Diagnostics Vital Signs (24Hr): Vital Signs - 24 hr 04/16/21 14:55 04/16/21 19:03 04/16/21 23:02 Temperature 96.8 F 96.8 F 97.6 F Pulse Rate 63 57 60 Respiratory Rate 20 20 20 Blood Pressure 114/57 L 116/60 122/55 L Pulse Oximetry 99 99 97 04/17/21 02:00 04/17/21 07:27 04/17/21 11:30 Temperature 97.6 F 97.4 F Pulse Rate 75 68 Respiratory Rate 16 18 17 Blood Pressure 118/69 157/63 H Pulse Oximetry 99 100 Body Mass Index 25.8 Labs Results: 04/13/21 07:08 04/15/21 10:33 Labs: Laboratory Results - last 48 hr 04/15/21 04/17/21 18:30 10:33 Vancomycin Trough 6.5 L 14.2 Imaging Radiology Impressions: ITS Impressions Venous Duplex 04/07/21 17:11 IMPRESSION: No DVT demonstrated in the right upper extremity. Medications Medications Current Medications Generic Name Dose Route Start Last Admin Trade Name Josesitoq PRN Reason Stop Dose Admin Acetaminophen 650 mg 04/07/21 22:48 04/17/21 11:33 Acetaminophen 325 Mg Tablet PO 650 mg Q6H PRN Administration Pain, Mild (Pain Scale 1-3) Aspirin 81 mg 04/16/21 09:00 04/17/21 08:15 Aspirin 81 Mg Tab.Chew PO 81 mg DAILY EDER Administration Buspirone HCl 30 mg 04/08/21 09:00 04/17/21 08:15 Buspirone Hcl 10 Mg Tablet PO 30 mg BID EDER Administration Heparin Sodium (Porcine) 50 0 units 04/15/21 21:00 04/17/21 08:57 units/ Sodium Chloride 5 ml IVFLUSH 5 unit TID EDER Administration Cyanocobalamin 1,000 mcg 04/08/21 09:00 04/17/21 08:15 Cyanocobalamin (Vitamin B-12) 1,000 Mcg Tablet PO 1,000 mcg DAILY EDER Administration Diazepam 5 mg 04/13/21 16:00 04/17/21 08:15 Diazepam 5 Mg Tablet PO 5 mg TID EDER Administration Diazepam 10 mg 04/15/21 15:27 04/17/21 08:14 Diazepam 10 Mg Tablet PO 10 mg DAILY PRN Administration anxiety/restlessness Docusate Sodium 100 mg 04/07/21 22:48 Docusate Sodium 100 Mg Capsule PO DAILY PRN Constipation Gabapentin 800 mg 04/07/21 22:48 04/17/21 08:15 Gabapentin 400 Mg Capsule PO 800 mg TID EDER Administration Heparin Sodium (Porcine) 5,000 unit 04/07/21 22:48 04/17/21 08:22 Heparin Sodium,Porcine 5,000 Unit/Ml Vial SUBCUT Not Given BID [facility] Hydroxyzine HCl 50 mg 04/07/21 22:48 04/15/21 14:17 Hydroxyzine Hcl 50 Mg Tablet PO 50 mg BID PRN Administration anxiety Vancomycin HCl 1,000 mg/ 270 mls @ 270 mls/hr 04/16/21 10:00 04/16/21 23:11 Sodium Chloride IV Infused Q12H EDER Infusion Lamotrigine 75 mg 04/16/21 09:00 04/17/21 08:15 Lamotrigine 25 Mg Tablet PO 75 mg DAILY EDER Administration Loratadine 10 mg 04/08/21 09:00 04/17/21 08:15 Loratadine 10 Mg Tablet PO 10 mg DAILY [facility] Administration Magnesium Hydroxide 15 ml 04/15/21 14:03 Milk Of Magnesia 30 Ml Oral.Susp PO BID PRN heartburn, nausea Methadone HCl 40 mg 04/13/21 09:00 04/17/21 08:14 Methadone Hcl 1 Mg/0.1 Ml Oral.Conc PO 40 mg DAILY EDER Administration Metronidazole 500 mg 04/14/21 09:00 04/17/21 08:14 Metronidazole 500 Mg Tablet PO 500 mg Q12H EDER Administration Morphine Sulfate 2 mg 04/10/21 11:24 04/17/21 11:33 Morphine Sulfate 4 Mg/Ml Cartridge IVPUSH 2 mg Q3H PRN Administration Pain, Severe (Pain Scale 7-10) Multivitamins/Vitamin C 1 tab 04/08/21 09:00 04/17/21 08:15 Multivitamin Tablet PO 1 tab DAILY EDER Administration Nicotine 21 mg 04/10/21 09:00 04/17/21 08:14 Nicotine 21 Mg Patch.Td24 TRANSDERMA 21 mg DAILY EDER Administration Nicotine Polacrilex 2 mg 04/08/21 17:38 04/17/21 11:33 Nicotine Polacrilex 2 Mg Gum BUCCAL 2 mg Q2H PRN Administration smoker Ondansetron HCl 4 mg 04/07/21 22:48 04/16/21 14:46 Ondansetron Hcl 4 Mg/2 Ml Vial IVPUSH 4 mg Q8H PRN Administration Nausea and Vomiting Oxycodone HCl 5 mg 04/17/21 11:00 04/17/21 11:30 Oxycodone Hcl Immed Release 5 Mg Tablet PO 5 mg 8XD EDER Administration Pharmacy Consult 1 each 04/07/21 17:11 Consult Rx Perform Med Rec MISCELLANE ONCE PRN Consult order Propranolol HCl 20 mg 04/07/21 22:48 Propranolol Hcl 20 Mg Tablet PO Q6H PRN hypertension Protocol Topiramate 200 mg 04/08/21 09:00 04/17/21 08:15 Topiramate 100 Mg Tablet PO 200 mg DAILY EDER Administration Allergies Allergies Allergy/AdvReac Type Severity Reaction Status Date / Time azithromycin [AZITHROMYCIN] Allergy Unknown UNK Verified 04/07/21 17:15 erythromycin base Allergy Unknown RASH Verified 04/07/21 17:15 [ERYTHROMYCIN BASE] olanzapine [From ZYPREXA] Allergy Unknown PEDAL EDEMA Verified 04/07/21 17:15 quetiapine [From SEROQUEL] Allergy Unknown THROAT Verified 04/07/21 17:15 SWELLING risperidone [From RISPERDAL] Allergy Unknown TWITCHING Verified 04/07/21 17:15 shellfish derived Allergy Unknown VOMITING Verified 04/07/21 17:15 [SHELLFISH DERIVED] sulfamethoxazole Allergy Unknown ITCHING Verified 04/07/21 17:15 [From BACTRIM] trimethoprim [From BACTRIM] Allergy Unknown ITCHING Verified 04/07/21 17:15 arithromiosin Allergy Unknown Unknown Uncoded 08/24/20 16:06 gluten Allergy Unknown Unknown Uncoded 08/24/20 16:06 sea food Allergy Unknown Unknown Uncoded 08/24/20 16:06 Sulfacet-R Allergy Unknown Unknown Uncoded 08/24/20 16:06 SEAFOOD AdvReac Unknown VOMIT Uncoded 06/07/20 15:47 Assessment & Plan Assessment & Plan (1) Opioid use disorder, severe, dependence: Status: Acute Code(s): F11.20 - Opioid dependence, uncomplicated Assessment and Plan: case discussed with hospitalist and previous provider team no changes to current medication regimen anxiety and irritability patient is exhibiting is likely a result of substance use withdrawal and increasing or changing benzodiazepines not an appropriate intervention untreated mood disorder as well as personality disorder factoring in as well 30 mins spent with patient, discussing case and coordinating care Greater than 50% of the session was spent on counseling and/or coordination of care
[2021-04-17] MEDS: vancomycin HCL 1,000 MG in 0.9 % Sodium Chloride 250 ML 270 MG IV ×2 (11:57→21:13)
--- NOTE | 2021-04-17 12:49 | MHC.CM.PN ---
Female 41 DX Cellulitis Patient is ready for discharge. Local facilities have declined to offer a bed r/t no beds available. [facility] declined r/t IVDA use prior to admit. A widened broadcast has not yeilded an accepting facility. Lamberto Romero is reviewing the Patients EMR. EMR info has been hand faxed to facility. CM will follow.
[2021-04-17] MEDS: Ibuprofen 400 MG TABLET PO (15:02)
[2021-04-17 15:10] VITALS: BP 118/58; PULSE 72; RESP 18; TEMP 36.6; O2SAT 98
--- NOTE | 2021-04-17 15:26 | P.PNIM_ITS ---
Subjective Subjective Date of Service: 04/17/21 Review of Systems the patient was seen and evaluated this morning Laying in bed, distressed from pain she is reporting in her right elbow Denies any fever, chills or shortness of breath No reported other overnight events. Systemic review: No fever, chills but complaining mainly of pain at asking to increase her pain medications No chest pain, palpitation No shortness of breath or coughing No abdominal pain, nausea or vomiting No urinary symptoms No any rash or wounds Physical Exam Vital Signs: Vital Signs: Last Vital Signs Temp 97.8 F 04/17/21 15:10 Pulse 72 04/17/21 15:10 Resp 18 04/17/21 15:10 BP 118/58 L 04/17/21 15:10 Pulse Ox 98 04/17/21 15:10 Body Mass Index 25.8 Const: Other: Constitutional : Alert, oriented, in mild distress from pain Neck : Normal inspection, Supple Cardiovascular : RRR, S1 S2, no lower extremity edema Respiratory : Good bilateral air entry, no crackles, wheezes or rhonchi Gastrointestinal: soft, lax, Normal bowel sounds, Non tender Skin : Warm/Dry, complaining of pain in right elbow with no drainage or erythema noted Neurological : Alert & oriented x3, No focal deficit Objective Data Current Medications Generic Name Dose Route Start Last Admin Trade Name Joie PRN Reason Stop Dose Admin Acetaminophen 650 mg 04/07/21 22:48 04/17/21 11:33 Acetaminophen 325 Mg Tablet PO 650 mg Q6H PRN Administration Pain, Mild (Pain Scale 1-3) Aspirin 81 mg 04/16/21 09:00 04/17/21 08:15 Aspirin 81 Mg Tab.Chew PO 81 mg DAILY EDER Administration Buspirone HCl 30 mg 04/08/21 09:00 04/17/21 08:15 Buspirone Hcl 10 Mg Tablet PO 30 mg BID EDER Administration Heparin Sodium (Porcine) 50 0 units 04/15/21 21:00 04/17/21 15:02 units/ Sodium Chloride 5 ml IVFLUSH 50 unit TID EDER Administration Cyanocobalamin 1,000 mcg 04/08/21 09:00 04/17/21 08:15 Cyanocobalamin (Vitamin B-12) 1,000 Mcg Tablet PO 1,000 mcg DAILY EDER Administration Diazepam 5 mg 04/13/21 16:00 04/17/21 15:02 Diazepam 5 Mg Tablet PO 5 mg TID EDER Administration Docusate Sodium 100 mg 04/07/21 22:48 Docusate Sodium 100 Mg Capsule PO DAILY PRN Constipation Gabapentin 800 mg 04/07/21 22:48 04/17/21 15:02 Gabapentin 400 Mg Capsule PO 800 mg TID EDER Administration Heparin Sodium (Porcine) 5,000 unit 04/07/21 22:48 04/17/21 08:22 Heparin Sodium,Porcine 5,000 Unit/Ml Vial SUBCUT Not Given BID EDER Hydroxyzine HCl 50 mg 04/07/21 22:48 04/15/21 14:17 Hydroxyzine Hcl 50 Mg Tablet PO 50 mg BID PRN Administration anxiety Vancomycin HCl 1,000 mg/ 270 mls @ 270 mls/hr 04/16/21 10:00 04/17/21 12:57 Sodium Chloride IV Infused Q12H EDER Infusion Lamotrigine 75 mg 04/16/21 09:00 04/17/21 08:15 Lamotrigine 25 Mg Tablet PO 75 mg DAILY EDER Administration Loratadine 10 mg 04/08/21 09:00 04/17/21 08:15 Loratadine 10 Mg Tablet PO 10 mg DAILY EDER Administration Magnesium Hydroxide 15 ml 04/15/21 14:03 Milk Of Magnesia 30 Ml Oral.Susp PO BID PRN heartburn, nausea Methadone HCl 40 mg 04/13/21 09:00 04/17/21 08:14 Methadone Hcl 1 Mg/0.1 Ml Oral.Conc PO 40 mg DAILY EDER Administration Metronidazole 500 mg 04/14/21 09:00 04/17/21 08:14 Metronidazole 500 Mg Tablet PO 500 mg Q12H [facility] Administration Multivitamins/Vitamin C 1 tab 04/08/21 09:00 04/17/21 08:15 Multivitamin Tablet PO 1 tab DAILY EDER Administration Nicotine 21 mg 04/10/21 09:00 04/17/21 08:14 Nicotine 21 Mg Patch.Td24 TRANSDERMA 21 mg DAILY EDER Administration Nicotine Polacrilex 2 mg 04/08/21 17:38 04/17/21 11:33 Nicotine Polacrilex 2 Mg Gum BUCCAL 2 mg Q2H PRN Administration smoker Ondansetron HCl 4 mg 04/07/21 22:48 04/16/21 14:46 Ondansetron Hcl 4 Mg/2 Ml Vial IVPUSH 4 mg Q8H PRN Administration Nausea and Vomiting Oxycodone HCl 7.5 mg 04/17/21 13:22 Oxycodone Hcl Immed Release 5 Mg Tablet PO Q4H PRN Pain, Severe (Pain Scale 7-10) Pharmacy Consult 1 each 04/07/21 17:11 Consult Rx Perform Med Rec MISCELLANE ONCE PRN Consult order Propranolol HCl 20 mg 04/07/21 22:48 Propranolol Hcl 20 Mg Tablet PO Q6H PRN hypertension Protocol Topiramate 200 mg 04/08/21 09:00 04/17/21 08:15 Topiramate 100 Mg Tablet PO 200 mg DAILY EDER Administration Labs CBC & Chem 7: 04/13/21 07:08 04/15/21 10:33 Labs: Laboratory Results - last 24 hr 04/17/21 10:33 Vancomycin Trough 14.2 Assessment and Plan (1) Abscess: Status: Acute Assessment and Plan: 41-year-old female with past medical history of IV drug who initially presented to the hospital on 04/03 with abscess, patient underwent I&D on 04/05 and was being treated for cellulitis/abscess and possible bacteremia but left AMA on 04/06. Returned with worsening symptoms MRSA bacteremia cultures drawn on 04/03 positive for MRSA,no growth from 04/07 echocardiogram - no vegetiations continue treated with vancomycin, plan now for 6 weeks, end 05/18/21 s/p I and D midline placed 04/15/21 (can stay in for up to 6 weeks) Pain management Patient has been asking for more pain pills as she reported having higher tolerance from her history of drug abuse Reporting having allergies to Tylenol and kidney injury from ibuprofen Will discontinue morphine for now Increased oxycodone to 7.5 mg At a dose of ibuprofen given normal kidney function Discussed with addiction team, no need to increase methadone aj diflucan 150mg once vaginal discharge positive for trichomonas flagyl 500mg bid day 01/25 . UTI completed 3 days ceftriaxone for ecoli opioid dependence methadone morphine for breakthrough pain HCV outpatient follow up DVT prophylaxis: Heparin subQ Quality Stroke Does the patient have a stroke diagnosis?: No VTE Prior VTE?: No VTE Risk Level:: Medical - moderate - high VTE Device Contraindication: Treatment Not Indicated VTE Drug Contraindication: N/A - Med Ordered
[2021-04-17] MEDS: oxyCODONE HCl Immed Release 5 MG TABLET 7.5 MG PO ×2 (15:47→21:14)
[2021-04-17 19:27] VITALS: BP 134/60; PULSE 62; RESP 18; TEMP 36.1; O2SAT 100
[2021-04-17] MEDS: Heparin Sodium,Porcine 5,000 UNIT/ML VIAL 5000 UNIT SUBCUT (21:14)
[2021-04-17] MEDS: Zolpidem Tartrate 5 MG TABLET PO (22:14)
[2021-04-17 23:36] VITALS: BP 138/72; PULSE 78; RESP 18; TEMP 36.3; O2SAT 96
[2021-04-18] MEDS: oxyCODONE HCl Immed Release 5 MG TABLET 7.5 MG PO ×3 (00:32→08:43)
[2021-04-18 03:18] VITALS: BP 124/68; PULSE 68; RESP 18; TEMP 36.6; O2SAT 97
[2021-04-18 07:06] VITALS: BP 158/59; PULSE 73; RESP 18; TEMP 36.3; O2SAT 99
[2021-04-18 07:32] LABS: Anion Gap 12 (12-20); Blood Urea Nitrogen 16 mg/dL (9-16); Carbon Dioxide 20 mmol/L (22-29); Chloride 110 mmol/L (96-108); Creatinine Clr Calc Pharmacy 85.1; Estimated Glomerular Filt Rate > 60; Glucose Random 87 mg/dL (60-115); Potassium 4.1 mmol/L (3.3-5.1); Sodium 138 mmol/L (135-145)
[2021-04-18] MEDS: Nicotine 21 MG PATCH.TD24 TRANSDERMA (08:41)
[2021-04-18] MEDS: Aspirin 81 MG TAB.CHEW PO (08:42)
[2021-04-18] MEDS: Cyanocobalamin (Vitamin B-12) 1,000 MCG TABLET 1000 MCG PO (08:42)
[2021-04-18] MEDS: busPIRone HCl 10 MG TABLET 30 MG PO ×2 (08:42→20:28)
[2021-04-18] MEDS: Topiramate 100 MG TABLET 200 MG PO (08:42)
[2021-04-18] MEDS: lamoTRIgine 25 MG TABLET 75 MG PO (08:42)
[2021-04-18] MEDS: Loratadine 10 MG TABLET PO (08:42)
[2021-04-18] MEDS: diazePAM 5 MG TABLET PO ×2 (08:42→14:42)
[2021-04-18] MEDS: Gabapentin 400 MG CAPSULE 800 MG PO ×3 (08:42→20:28)
[2021-04-18] MEDS: metroNIDAZOLE 500 MG TABLET PO ×2 (08:42→20:28)
[2021-04-18] MEDS: Multivitamin TABLET 1 TAB PO (08:42)
[2021-04-18] MEDS: Heparin Sodium,Porcine Flush 50 UNITS, 0.9 % Sodium Chloride Flush 5 ML IVFLUSH ×3 (08:43→20:30)
[2021-04-18] MEDS: vancomycin HCL 1,000 MG in 0.9 % Sodium Chloride 250 ML 270 MG IV ×2 (08:47→21:55)
[2021-04-18] MEDS: ondansetron HCL 4 MG/2 ML VIAL IVPUSH (09:26)
[2021-04-18] MEDS: Acetaminophen 325 MG TABLET 650 MG PO ×2 (09:28→21:03)
[2021-04-18 11:08] VITALS: BP 154/90; PULSE 83; RESP 20; TEMP 36.8; O2SAT 97
[2021-04-18] MEDS: oxyCODONE HCl Immed Release 5 MG TABLET 10 MG PO ×3 (12:02→20:29)
--- NOTE | 2021-04-18 14:20 | HO.PM.IMPN ---
Subjective Subjective Date of Service: 04/18/21 Review of Systems The patient was seen and evaluated this morning Laying in bed, distressed from pain she is reporting in her right elbow and asking for more pain medications Denies any fever, chills or shortness of breath No reported other overnight events Systemic review: No fever, chills but complaining mainly of pain at asking to increase her pain medications No chest pain, palpitation No shortness of breath or coughing No abdominal pain, nausea or vomiting No urinary symptoms No any rash or wounds Physical Exam Vital Signs: Vital Signs: Last Vital Signs Temp 98.2 F 04/18/21 11:08 Pulse 83 04/18/21 11:08 Resp 20 04/18/21 11:08 BP 154/90 H 04/18/21 11:08 Pulse Ox 97 04/18/21 11:08 Body Mass Index 25.8 Const: Other: Constitutional : Alert, oriented, in mild distress from pain Neck : Normal inspection, Supple Cardiovascular : RRR, S1 S2, no lower extremity edema Respiratory : Good bilateral air entry, no crackles, wheezes or rhonchi Gastrointestinal: soft, lax, Normal bowel sounds, Non tender Skin : Warm/Dry, no significant tenderness in right elbow with no drainage or erythema noted but subcutaneous granules can be filled, no erythema or warmth Neurological : Alert & oriented x3, No focal deficit Objective Data Current Medications Generic Name Dose Route Start Last Admin Trade Name Freq PRN Reason Stop Dose Admin Acetaminophen 650 mg 04/07/21 22:48 04/18/21 09:28 Acetaminophen 325 Mg Tablet PO 650 mg Q6H PRN Administration Pain, Mild (Pain Scale 1-3) Aspirin 81 mg 04/16/21 09:00 04/18/21 08:42 Aspirin 81 Mg Tab.Chew PO 81 mg DAILY EDER Administration Buspirone HCl 30 mg 04/08/21 09:00 04/18/21 08:42 Buspirone Hcl 10 Mg Tablet PO 30 mg BID EDER Administration Heparin Sodium (Porcine) 50 0 units 04/15/21 21:00 04/18/21 08:43 units/ Sodium Chloride 5 ml IVFLUSH 50 unit TID EDER Administration Cyanocobalamin 1,000 mcg 04/08/21 09:00 04/18/21 08:42 Cyanocobalamin (Vitamin B-12) 1,000 Mcg Tablet PO 1,000 mcg DAILY EDER Administration Diazepam 5 mg 04/13/21 16:00 04/18/21 08:42 Diazepam 5 Mg Tablet PO 5 mg TID [facility] Administration Diclofenac Sodium 50 mg 04/18/21 10:30 04/18/21 11:34 Diclofenac Sodium Delayed Rel 50 Mg Tablet.Dr PO Not Given BID [facility] Docusate Sodium 100 mg 04/07/21 22:48 Docusate Sodium 100 Mg Capsule PO DAILY PRN Constipation Gabapentin 800 mg 04/07/21 22:48 04/18/21 08:42 Gabapentin 400 Mg Capsule PO 800 mg TID [facility] Administration Heparin Sodium (Porcine) 5,000 unit 04/07/21 22:48 04/18/21 08:50 Heparin Sodium,Porcine 5,000 Unit/Ml Vial SUBCUT Not Given BID [facility] Hydroxyzine HCl 50 mg 04/07/21 22:48 04/15/21 14:17 Hydroxyzine Hcl 50 Mg Tablet PO 50 mg BID PRN Administration anxiety Vancomycin HCl 1,000 mg/ 270 mls @ 270 mls/hr 04/16/21 10:00 04/18/21 09:52 Sodium Chloride IV Infused Q12H [facility] Infusion Lamotrigine 75 mg 04/16/21 09:00 04/18/21 08:42 Lamotrigine 25 Mg Tablet PO 75 mg DAILY [facility] Administration Loratadine 10 mg 04/08/21 09:00 04/18/21 08:42 Loratadine 10 Mg Tablet PO 10 mg DAILY [facility] Administration Magnesium Hydroxide 15 ml 04/15/21 14:03 Milk Of Magnesia 30 Ml Oral.Susp PO BID PRN heartburn, nausea Methadone HCl 40 mg 04/13/21 09:00 04/18/21 08:43 Methadone Hcl 1 Mg/0.1 Ml Oral.Conc PO 40 mg DAILY [facility] Administration Metronidazole 500 mg 04/14/21 09:00 04/18/21 08:42 Metronidazole 500 Mg Tablet PO 500 mg Q12H [facility] Administration Multivitamins/Vitamin C 1 tab 04/08/21 09:00 04/18/21 08:42 Multivitamin Tablet PO 1 tab DAILY [facility] Administration Nicotine 21 mg 04/10/21 09:00 04/18/21 08:41 Nicotine 21 Mg Patch.Td24 TRANSDERMA 21 mg DAILY [facility] Administration Nicotine Polacrilex 2 mg 04/08/21 17:38 04/17/21 11:33 Nicotine Polacrilex 2 Mg Gum BUCCAL 2 mg Q2H PRN Administration smoker Ondansetron HCl 4 mg 04/07/21 22:48 04/18/21 09:26 Ondansetron Hcl 4 Mg/2 Ml Vial IVPUSH 4 mg Q8H PRN Administration Nausea and Vomiting Oxycodone HCl 10 mg 04/18/21 10:33 04/18/21 12:02 Oxycodone Hcl Immed Release 5 Mg Tablet PO 10 mg Q4H PRN Administration Pain, Severe (Pain Scale 7-10) Pharmacy Consult 1 each 04/07/21 17:11 Consult Rx Perform Med Rec MISCELLANE ONCE PRN Consult order Propranolol HCl 20 mg 04/07/21 22:48 Propranolol Hcl 20 Mg Tablet PO Q6H PRN hypertension Protocol Topiramate 200 mg 04/08/21 09:00 04/18/21 08:42 Topiramate 100 Mg Tablet PO 200 mg DAILY EDER Administration Labs CBC & Chem 7: 04/13/21 07:08 04/18/21 05:28 Labs: Laboratory Results - last 24 hr 04/18/21 05:28 Anion Gap 12 Estim Creat Clear Calc 85.1 Estimated GFR > 60 Random Glucose 87 Calcium 9.0 Assessment and Plan (1) Abscess: Status: Acute Assessment and Plan: 41-year-old female with past medical history of IV drug who initially presented to the hospital on 04/03 with abscess, patient underwent I&D on 04/05 and was being treated for cellulitis/abscess and possible bacteremia but left AMA on 04/06. Pre admitted and started on IV antibiotics with plan to finish 6 weeks. MRSA bacteremia cultures drawn on 04/03 positive for MRSA,no growth from 04/07 echocardiogram - no vegetiations continue treated with vancomycin, plan now for 6 weeks, end 05/18/21 s/p I and D midline placed 04/15/21 (can stay in for up to 6 weeks) Pain management Patient has been asking for more pain pills as she reported having higher tolerance from her history of drug abuse Reporting having allergies to Tylenol and kidney injury from ibuprofen Increased oxycodone to 10 mg Start home dose diclofenac Discussed with addiction team, no need to increase methadone aj diflucan 150mg once vaginal discharge positive for trichomonas flagyl 500mg bid day 02/25 . UTI completed 3 days ceftriaxone for ecoli opioid dependence methadone morphine for breakthrough pain HCV outpatient follow up DVT prophylaxis: Heparin subQ (2) MRSA bacteremia: Status: Acute (3) Intravenous drug abuse: Status: Acute (4) Opioid use disorder, severe, dependence: Status: Acute Quality Stroke Does the patient have a stroke diagnosis?: No VTE Prior VTE?: No VTE Risk Level:: Medical - moderate - high VTE Device Contraindication: Treatment Not Indicated VTE Drug Contraindication: N/A - Med Ordered
[2021-04-18 15:13] VITALS: BP 128/61; PULSE 71; RESP 18; TEMP 36.8; O2SAT 97
--- NOTE | 2021-04-18 16:54 | PC.NURSE ---
Wound assessment completed today. Patient's abscess is healing. Wound base has yellow brown crust, applying Triad for enzymatic debridement. Patient tolerated dressing change well. No other skin issues noted.
[2021-04-18 19:18] VITALS: BP 123/60; PULSE 74; RESP 16; TEMP 36.2; O2SAT 96
[2021-04-18] MEDS: Diclofenac Sodium Delayed Rel 50 MG TABLET.DR PO (20:38)
[2021-04-18 21:44] LABS: Vancomycin Trough 14.3 mcg/mL (10.0-20.0)
[2021-04-18] MEDS: Zolpidem Tartrate 5 MG TABLET PO (23:01)
[2021-04-19 04:00] VITALS: RESP 18
[2021-04-19 07:15] VITALS: BP 100/60; PULSE 69; RESP 20; TEMP 36.2; O2SAT 100
[2021-04-19 07:38] LABS: Hematocrit 35.4 % (37-47); Hemoglobin 11.6 g/dl (12.0-16.0); Mean Corpuscular HGB Conc 32.8 g/dl (31.0-35.0); Mean Corpuscular Volume 91.5 fL (80-98); Mean Platelet Volume 10.4 fL (9.4-12.3); Platelet Count 190 X10*3/uL (160-400); Red Blood Count 3.87 X10*6/uL (4.20-5.50); Red Cell Distribution Width 13.8 % (11.0-16.0); White Blood Count 3.8 X10*3/uL (4.8-10.8)
[2021-04-19 08:00] LABS: Anion Gap 12 (12-20); Blood Urea Nitrogen 16 mg/dL (9-16); Calcium 9.2 mg/dL (8.4-10.2); Carbon Dioxide 18 mmol/L (22-29); Chloride 113 mmol/L (96-108); Creatinine Clr Calc Pharmacy 93.7; Estimated Glomerular Filt Rate > 60; Glucose Random 121 mg/dL (60-115); Potassium 4.4 mmol/L (3.3-5.1); Sodium 139 mmol/L (135-145)
--- NOTE | 2021-04-19 08:24 | MHC.CM.PN ---
[facility] CONTINUES TO REPORT THEY DO NOT HAVE A BED AND DO NOT EXPECT ONE TO OPEN UNTIL NEXT WEEK. ALL OTHER CONTRACTED SNF'S WITHIN [address] HAVE DECLINED THE REFERRAL EXCEPT [facility]. HOWEVER PT REPORTS A TRAUMATIC EXPERIENCE AT [facility] AND REFUSES TO GO THERE. A REFERRAL WAS PLACED TO [facility] RE[facility], SHE REPORTS SHE HAS BEEN THERE IN THE PAST FOR TREATMENT OF ENDOCARDITIS. [facility] HAS NOT YET RESPONDED TO REFERRAL. IF [facility] IS UNABLE TO OFFER A BED, CM WILL AGAIN OFFER [facility] OR EXPLORE THE POSSIBILITY OF HAVING PT PUT ON A ONE TIME A DAY ANTIBIOTIC THAT SHE CAN COME TO THE HOSPITAL FOR DAILY. DC PLAN IS [facility] VS COMING TO [facility] [facility] FOR DAILY ABX DOSING.
[2021-04-19] MEDS: Heparin Sodium,Porcine Flush 50 UNITS, 0.9 % Sodium Chloride Flush 5 ML IVFLUSH ×2 (08:36→14:58)
[2021-04-19] MEDS: busPIRone HCl 10 MG TABLET 30 MG PO (08:37)
[2021-04-19] MEDS: oxyCODONE HCl Immed Release 5 MG TABLET 10 MG PO ×2 (08:37→12:43)
[2021-04-19] MEDS: Nicotine 21 MG PATCH.TD24 TRANSDERMA (08:37)
[2021-04-19] MEDS: Gabapentin 400 MG CAPSULE 800 MG PO ×2 (08:37→14:58)
[2021-04-19] MEDS: Acetaminophen 325 MG TABLET 650 MG PO (08:37)
[2021-04-19] MEDS: Cyanocobalamin (Vitamin B-12) 1,000 MCG TABLET 1000 MCG PO (08:37)
[2021-04-19] MEDS: Aspirin 81 MG TAB.CHEW PO (08:38)
[2021-04-19] MEDS: Loratadine 10 MG TABLET PO (08:38)
[2021-04-19] MEDS: Diclofenac Sodium Delayed Rel 50 MG TABLET.DR PO (08:38)
[2021-04-19] MEDS: Multivitamin TABLET 1 TAB PO (08:38)
[2021-04-19] MEDS: Topiramate 100 MG TABLET 200 MG PO (08:38)
[2021-04-19] MEDS: lamoTRIgine 25 MG TABLET 75 MG PO (08:38)
[2021-04-19] MEDS: metroNIDAZOLE 500 MG TABLET PO (08:39)
[2021-04-19] MEDS: vancomycin HCL 1,000 MG in 0.9 % Sodium Chloride 250 ML 270 MG IV (08:39)
[2021-04-19] MEDS: Nicotine Polacrilex 2 MG GUM BUCCAL (08:45)
[2021-04-19] MEDS: Famotidine 20 MG TABLET PO (11:14)
[2021-04-19] MEDS: Magnesium Citrate 300 ML SOLUTION PO (11:14)
[2021-04-19 11:15] VITALS: BP 143/72; PULSE 80; RESP 20; TEMP 36.8; O2SAT 97
[2021-04-19] MEDS: LORazepam 1 MG TABLET PO (11:16)
--- NOTE | 2021-04-19 11:33 | MHC.CM.PN ---
Female 41 DX Cellulitis Abscess. [facility] called to notified result of review. The patient is well known to the facility. They are not able to accommodate the patient. Spoke with Jennifer the teresa @ [facility]. The facility does not anticipate any female discharges this week. At this point no accepting facility is available. She may need to come to the hospital daily for her ABX. CM will request short stay to infuse medication.
--- NOTE | 2021-04-19 11:50 | P.PNOP_ITS ---
Subjective Subjective Date of Service: 04/19/21 Principal diagnosis: right forearm abcess Interval history: right arm pain Physical Exam Vital Signs: Vital Signs: Last Vital Signs Temp 98.2 F 04/19/21 11:15 Pulse 80 04/19/21 11:15 Resp 20 04/19/21 11:15 BP 143/72 H 04/19/21 11:15 Pulse Ox 97 04/19/21 11:15 Body Mass Index 25.8 Extrem: Other: Healing dorsal forearm wound with no erythema or fluctuance. Slight firmness proximal to incision. Moving hand and forearm comfortably Procedures Date of Service Date of Service: 04/19/21 Progress Note: A&P Assessment and plan (1) Abscess: Status: Acute Assessment and Plan: No evidence of active abcess. I do recommend continuing antibiotics but no role for surgical intervention. (2) Intravenous drug abuse: Status: Acute Fall Risk Details Current Medications: Current Medications Generic Name Dose Route Start Last Admin Trade Name Freq PRN Reason Stop Dose Admin Acetaminophen 650 mg 04/07/21 22:48 04/19/21 08:37 Acetaminophen 325 Mg Tablet PO 650 mg Q6H PRN Administration Pain, Mild (Pain Scale 1-3) Aspirin 81 mg 04/16/21 09:00 04/19/21 08:38 Aspirin 81 Mg Tab.Chew PO 81 mg DAILY [facility] Administration Buspirone HCl 30 mg 04/08/21 09:00 04/19/21 08:37 Buspirone Hcl 10 Mg Tablet PO 30 mg BID [facility] Administration Heparin Sodium (Porcine) 50 0 units 04/15/21 21:00 04/19/21 08:36 units/ Sodium Chloride 5 ml IVFLUSH 50 unit TID [facility] Administration Cyanocobalamin 1,000 mcg 04/08/21 09:00 04/19/21 08:37 Cyanocobalamin (Vitamin B-12) 1,000 Mcg Tablet PO 1,000 mcg DAILY [facility] Administration Diclofenac Sodium 50 mg 04/18/21 10:30 04/19/21 08:38 Diclofenac Sodium Delayed Rel 50 Mg Tablet.Dr PO 50 mg BID [facility] Administration Docusate Sodium 100 mg 04/07/21 22:48 Docusate Sodium 100 Mg Capsule PO DAILY PRN Constipation Famotidine 20 mg 04/19/21 10:10 04/19/21 11:14 Famotidine 20 Mg Tablet PO 20 mg DAILY [facility] Administration Gabapentin 800 mg 04/07/21 22:48 04/19/21 08:37 Gabapentin 400 Mg Capsule PO 800 mg TID [facility] Administration Heparin Sodium (Porcine) 5,000 unit 04/07/21 22:48 04/19/21 08:39 Heparin Sodium,Porcine 5,000 Unit/Ml Vial SUBCUT Not Given BID [facility] Hydroxyzine HCl 50 mg 04/07/21 22:48 04/15/21 14:17 Hydroxyzine Hcl 50 Mg Tablet PO 50 mg BID PRN Administration anxiety Vancomycin HCl 1,000 mg/ 270 mls @ 270 mls/hr 04/16/21 10:00 04/19/21 09:59 Sodium Chloride IV Infused Q12H [facility] Infusion Lamotrigine 75 mg 04/16/21 09:00 04/19/21 08:38 Lamotrigine 25 Mg Tablet PO 75 mg DAILY [facility] Administration Loratadine 10 mg 04/08/21 09:00 04/19/21 08:38 Loratadine 10 Mg Tablet PO 10 mg DAILY [facility] Administration Lorazepam 1 mg 04/19/21 10:08 04/19/21 11:16 Lorazepam 1 Mg Tablet PO 1 mg DAILY PRN Administration anxiety/restlessness Magnesium Hydroxide 15 ml 04/15/21 14:03 Milk Of Magnesia 30 Ml Oral.Susp PO BID PRN heartburn, nausea Methadone HCl 40 mg 04/13/21 09:00 04/19/21 08:36 Methadone Hcl 1 Mg/0.1 Ml Oral.Conc PO 40 mg DAILY [facility] Administration Metronidazole 500 mg 04/14/21 09:00 04/19/21 08:39 Metronidazole 500 Mg Tablet PO 500 mg Q12H [facility] Administration Multivitamins/Vitamin C 1 tab 04/08/21 09:00 04/19/21 08:38 Multivitamin Tablet PO 1 tab DAILY [facility] Administration Nicotine 21 mg 04/10/21 09:00 04/19/21 08:37 Nicotine 21 Mg Patch.Td24 TRANSDERMA 21 mg DAILY [facility] Administration Nicotine Polacrilex 2 mg 04/08/21 17:38 04/19/21 08:45 Nicotine Polacrilex 2 Mg Gum BUCCAL 2 mg Q2H PRN Administration smoker Ondansetron HCl 4 mg 04/07/21 22:48 04/18/21 09:26 Ondansetron Hcl 4 Mg/2 Ml Vial IVPUSH 4 mg Q8H PRN Administration Nausea and Vomiting Oxycodone HCl 10 mg 04/18/21 10:33 04/19/21 08:37 Oxycodone Hcl Immed Release 5 Mg Tablet PO 10 mg Q4H PRN Administration Pain, Severe (Pain Scale 7-10) Pharmacy Consult 1 each 04/07/21 17:11 Consult Rx Perform Med Rec MISCELLANE ONCE PRN Consult order Propranolol HCl 20 mg 04/07/21 22:48 Propranolol Hcl 20 Mg Tablet PO Q6H PRN hypertension Protocol Topiramate 200 mg 04/08/21 09:00 04/19/21 08:38 Topiramate 100 Mg Tablet PO 200 mg DAILY [facility] Administration Zolpidem Tartrate 5 mg 04/18/21 22:43 04/18/21 23:01 Zolpidem Tartrate 5 Mg Tablet PO 5 mg BEDTIME PRN Administration Insomnia Time Spent With Patient Time: Total time spent is greater than 50% in coordination of care (as document ed) at patient's floor/unit and/or counseling patient: Time with patient: less than 15 minutes Quality Stroke Does the patient have a stroke diagnosis?: No VTE Prior VTE?: No VTE Risk Level:: Medical - moderate - high VTE Device Contraindication: Treatment Not Indicated VTE Drug Contraindication: N/A - Med Ordered
--- NOTE | 2021-04-19 13:32 | MHC.CM.PN ---
This script writer along with Research And Evaluation Manager Marlen Turpin, went to speak with patient in her room regarding discharge planning. At this time [facility] is the only viable and safe discharge plan for patient. Discussing this with patient she became extremely tearful, began crying, yelling and swearing that she will not go to that facility as there are rats in the hospital.She reports also not being able to go for outpatient infusions because she is homeless. Patient reports being connected to [facility] services- CM will explore this option although would not be an immediate solution to discharge barriers. Outpatient IV therapy would not be a viable option as she can not be accommodated at short stay due to her long-standing behaviors. This script writer discussed case with current MD, recommended psych consult, but will hold off at this time per MD. Case Management will continue to follow patient and explore all options for a safe d/c plan.
--- NOTE | 2021-04-19 15:44 | P.EN_ITS ---
Event Note Date of Service: 04/19/21 Event Note: Discharge summary Discharge diagnosis MRSA bacteremia Arm abscess IV drug abuse UTI [place] infection Trichomonas infection Opioid dependence Patient was readmitted to the hospital for treatment of MRSA bacteremia after leaving AMA and the previous admission. She received 12 days of IV vancomycin as blood cultures on admission remained negative as she was evaluated by Infectious Disease team. Orthopedic team evaluated her for abscesses in her arm and surgical intervention was done to drain the area. Patient decided to leave AMA today. I discussed with her the risk of leaving including getting sick and possible . She reported understanding the cons equences but she wants to leave and asked for oral antibiotic to finish the 6 weeks.. I explained to her that oral antibiotic is not the 1st option and she should come back to the hospital to finish 6 weeks of IV antibiotics but meanwhile will discharge her on doxycycline as it was reported to be sensitive on her blood culture.
--- NOTE | 2021-04-19 16:46 | PC.NURSE ---
Midline removed from left upper arm, as pt leaving AMA. Site without any redness, warmth, swelling or pain. DSD and Tegaderm applied.
--- NOTE | 2021-04-19 16:59 | PC.NURSE ---
Patient decided to leave AMA. MD and RN educated patient on the risks of leaving without finishing course of abx. Midline removed by nursing policy change clerks supervisor.
== END 2021-04-19 16:59 | disposition left against medical advice (07) | DRG 383 ==
LOC: HO.ED 21:15 → HO.EDOVER 22:58 → HO.IMC 04-08 07:36
PROVIDERS: Internal Medicine; Physician Assistant; Admitting Provider Internal Medicine; Emergency Provider Internal Medicine; Visit Provider Student in an Organized Health Care Education/Training Program
DX: L02.414 Cutaneous abscess of left upper limb (principal); R78.81 Bacteremia; F11.20 Opioid dependence, uncomplicated; B19.20 Unspecified viral hepatitis C without hepatic coma; F17.210 Nicotine dependence, cigarettes, uncomplicated; A59.01 Trichomonal vulvovaginitis; B37.3 Candidiasis of vulva and vagina; L03.113 Cellulitis of right upper limb; B95.62 Methicillin resistant Staphylococcus aureus infection as the cause of diseases classified elsewhere; F31.9 Bipolar disorder, unspecified; B96.20 Unspecified Escherichia coli [E. coli] as the cause of diseases classified elsewhere; N39.0 Urinary tract infection, site not specified; Z71.6 Tobacco abuse counseling; Z20.822 Contact with and (suspected) exposure to COVID-19; Z88.2 Allergy status to sulfonamides; Z79.82 Long term (current) use of aspirin; Z79.899 Other long term (current) drug therapy
CPT/HCPCS: 36410; 36415; 80048; 80076; 80202; 80307; 81001; 81003; 81025; 82077; 82550; 82565; 83605; 83735; 84484; 85025; 85027; 85610; 85652; 85730; 86140; 87040; 87086; 87480; 87491; 87510; 87591; 87635; 87660; 93306; 93971; 99024; 99285; J0696; J1642; J1885; J2270; J2405; J3370

== ENCOUNTER 2021-04-21 09:03 | Inpatient (IN) | payer OTHER, SELFPAY ==
--- NOTE | ~2021-04-21 | US_ITS ---
EXAMINATION: US VENOUS WITH DOPPLER UPPER EXTREMITY, LEFT CLINICAL INFORMATION: This is a 41-year-old female with left upper extremity swelling. Status post intravenous puncture. COMPARISON: None TECHNIQUE: Ultrasound of the upper extremity is performed using compression sonography and color and pulse Doppler flow with assessment of augmentation of flow. There is also imaging and Doppler assessment of the jugular and subclavian veins. Spectral analysis with color-flow imaging is performed. FINDINGS: Respiratory variation, normal compression, and augmented flow are noted throughout the upper extremity including the axillary, brachial, cubital, and radial and ulnar veins. There is normal flow in the internal jugular and subclavian veins. There is no visible deep or superficial thrombophlebitis. Because of localized dressing the proximal brachial vein and mid basilic veins could not be adequately visualized. If the patient's symptoms progress, a followup ultrasound in 5 -7 days might be of value to exclude proximal propagation from a nonvisualized distal arm vein. US/US venous duplex UE LT IMPRESSION: No DVT demonstrated in the left upper extremity
[2021-04-21 09:36] VITALS: BP 114/62; BP 120/70; PULSE 76; PULSE 83; RESP 16; TEMP 36.6; O2SAT 98; BMI 29.3
--- NOTE | 2021-04-21 09:49 | ED.GENADULT ---
HPI - General Adult General Chief complaint: Psychiatric Symptoms Stated complaint: SI,NON MED COMPLIANT Time Seen by Provider: 04/21/21 09:45 Source: patient Mode of arrival: ambulatory Limitations: no limitations History of Present Illness HPI narrative: 41-year-old female with history of abscess and cellulitis. Patient did have surgery and is supposed to finish 6 weeks of antibiotics. Patient signed out against medical advice yesterday she admits to using multiple bags of fentanyl and heroin. Patient presented back to EMS with concerns for SI. Related Data Home Medications Medication Instructions Recorded Confirmed aspirin 81 mg chewable tablet 80 mg PO DAILY 12/04/20 04/07/21 cyanocobalamin (vitamin B-12) 1,000 mcg PO DAILY 12/04/20 04/07/21 1,000 mcg tablet (Vitamin B-12) diclofenac sodium 50 mg 50 mg PO TID PRN 12/04/20 04/07/21 tablet,delayed release hydroxyzine pamoate 50 mg capsule 1 cap PO NEEDED PRN 12/04/20 04/07/21 loratadine 10 mg tablet 10 mg PO DAILY 12/04/20 04/07/21 multivitamin (Daily-Angle) 1 tab PO DAILY 12/04/20 04/07/21 methadone 10 mg/mL oral concentrate 90 mg PO DAILY 12/23/20 04/03/21 diazepam 5 mg tablet 1 tab PO TID 01/02/21 04/07/21 zolpidem 5 mg tablet 5 mg PO BEDTIME PRN 01/02/21 04/07/21 Previous Rx's Medication Instructions Recorded buspirone 30 mg tablet 30 mg PO BID 7 Days #14 tab 02/01/21 gabapentin 800 mg tablet 800 mg PO TID 7 Days #21 tab 02/01/21 lamotrigine 25 mg tablet 50 mg PO DAILY 14 Days #28 tab 02/01/21 propranolol 20 mg tablet 20 mg PO Q6H PRN 7 Days #28 tab 02/01/21 topiramate 200 mg tablet 200 mg PO DAILY 7 Days #7 tab 02/01/21 Allergies Allergy/AdvReac Type Severity Reaction Status Date / Time azithromycin [AZITHROMYCIN] Allergy Unknown UNK Verified 04/07/21 17:15 erythromycin base Allergy Unknown RASH Verified 04/07/21 17:15 [ERYTHROMYCIN BASE] olanzapine [From ZYPREXA] Allergy Unknown PEDAL EDEMA Verified 04/07/21 17:15 quetiapine [From SEROQUEL] Allergy Unknown THROAT Verified 04/07/21 17:15 SWELLING risperidone [From RISPERDAL] Allergy Unknown TWITCHING Verified 04/07/21 17:15 shellfish derived Allergy Unknown VOMITING Verified 04/07/21 17:15 [SHELLFISH DERIVED] sulfamethoxazole Allergy Unknown ITCHING Verified 04/07/21 17:15 [From BACTRIM] trimethoprim [From BACTRIM] Allergy Unknown ITCHING Verified 04/07/21 17:15 arithromiosin Allergy Unknown Unknown Uncoded 08/24/20 16:06 sea food Allergy Unknown Unknown Uncoded 08/24/20 16:06 Sulfacet-R Allergy Unknown Unknown Uncoded 08/24/20 16:06 SEAFOOD AdvReac Unknown VOMIT Uncoded 06/07/20 15:47 Review of Systems Review of Systems: Review of systems: General: Patient denies any fever chills recent illness or falls Musculoskeletal: Denies back pain or body aches or other injuries HEENT: denies headache, runny nose, ear pain Respiratory: denies shortness of breath, cough Cardiovascular: no chest pain or palpitations : denies dysuria, frequency Abdomen: no nausea vomiting denies abdominal pain Extremities: no swelling, no pain Skin: no diaphoresis Yes all other systems are reviewed and are negative PMFSH Past Medical History Medical History Opioid dependence Substance abuse Substance abuse Social History Social History Household Members: Unknown / Unable to assess Housing: Other Housing Other:: patient states she is homeless Do you presently have visiting nurse or other home services: No Unable to assess alcohol history related to: Unknown Alcohol intake: current Alcohol intake frequency: does not drink Patient Tobacco Use Status: Current everyday Tobacco user Tobacco use type: Cigarette Cigarette Packs Per Day: 0 Cigarettes Per Day: 3 Years Smoked: 10 Second Hand Smoke Exposure: No Substance Use Type: Crack/Cocaine and Heroin Advance Directives: Yes Advance Directives on File: Yes Advance Directives Date on File: 04/03/21 Patient : No service: No Current occupational status: disabled Physical Exam Vital Signs: Vital Signs: Last Vital Signs Temp 98 F 04/21/21 09:36 Pulse 76 04/21/21 09:36 Resp 16 04/21/21 09:36 BP 114/62 04/21/21 09:36 Pulse Ox 98 04/21/21 09:36 Body Mass Index 29.3 General: Well-appearing well-nourished in no signs of distress HEENT: Normocephalic atraumatic Neck: No signs of JVD, no masses no tenderness or lymphadenopathy Cardiovascular: Regular rate and rhythm Respiratory: Clear to auscultation bilaterally Abdomen: Soft nontender no masses Extremities: Right arm appears to be healing well. Normal pedal pulses no signs of edema Skin: Dry warm no rashes Back: No tenderness full ROM Discharge Plan Discharge Clinical Impression: MRSA bacteremia, Intravenous drug abuse, Opioid dependence, Substance abuse Patient Disposition: Admitted As Inpatient Prescriptions: No Action methadone 10 mg/mL Concentrate 90 mg PO DAILY RF: 0 buspirone 30 mg tablet 30 mg PO BID 7 Days Qty: 14 RF: 0 lamotrigine 25 mg tablet 50 mg PO DAILY 14 Days Qty: 28 RF: 0 propranolol 20 mg tablet 20 mg PO Q6H PRN (Reason: hypertension) 7 Days Qty: 28 RF: 0 topiramate 200 mg tablet 200 mg PO DAILY 7 Days Qty: 7 RF: 0 gabapentin 800 mg tablet 800 mg PO TID 7 Days Qty: 21 RF: 0 multivitamin [Daily-Angle] Tablet 1 tab PO DAILY RF: 0 cyanocobalamin (vitamin B-12) [Vitamin B-12] 1,000 mcg tablet 1,000 mcg PO DAILY RF: 0 hydroxyzine pamoate 50 mg capsule 1 cap PO NEEDED PRN (Reason: anxiety) RF: 0 aspirin 81 mg tablet,chewable 80 mg PO DAILY RF: 0 diclofenac sodium 50 mg tablet,delayed release (DR/EC) 50 mg PO TID PRN (Reason: Pain) RF: 0 loratadine 10 mg tablet 10 mg PO DAILY RF: 0 zolpidem 5 mg tablet 5 mg PO BEDTIME PRN (Reason: Insomnia) RF: 0 diazepam 5 mg tablet 1 tab PO TID RF: 0
--- NOTE | 2021-04-21 10:40 | PC.NURSE ---
Pt alert and oriented x3. She was brought over from the POD for treatment for Cellulites on her R arm. Pt admits to SI and does not have a plan. pt denies HI. Pt is a difficult stick, staff currently attempting to establish IV. pt denies pain. No apparent distress noted. Pt is currently on 1:1 supervision.
--- NOTE | 2021-04-21 11:20 | PC.NURSE ---
RN unable to establish IV using ultra sound. Dr. Mejia made aware.
[2021-04-21 11:36] LABS: Basophils Percent Auto 0.8 % (0-2); Imm Gran Abs Auto 0.01 X10*3/uL (0.00-0.03); Imm Gran Pct Auto 0.3 % (0.0-0.4); MANUAL DIFF FLAG SCAN; PLT CLUMP 1; SCAN SMEAR FLAG 1
[2021-04-21 11:37] LABS: Eosinophils Absolute Auto 0.1 X10*3/uL (0.0-0.4); Eosinophils Percent Auto 1.9 % (0-4); Hematocrit 34.8 % (37-47); Hemoglobin 11.8 g/dl (12.0-16.0); Lymphocytes Absolute Auto 1.2 X10*3/uL (1.2-4.9); Lymphocytes Percent Auto 31.6 % (20-40); Mean Corpuscular HGB Conc 33.9 g/dl (31.0-35.0); Mean Corpuscular Hemoglobin 30.3 pg (27.0-33.0); Mean Corpuscular Volume 89.5 fL (80-98); Mean Platelet Volume 11.7 fL (9.4-12.3); Monocytes Absolute Auto 0.2 X10*3/uL (0.1-1.2); Monocytes Percent Auto 5.3 % (2-11); Neutrophils Absolute Auto 2.3 X10*3/uL (2.0-8.3); Neutrophils Percent Auto 60.1 % (45-73); Red Blood Count 3.89 X10*6/uL (4.20-5.50); Red Cell Distribution Width 13.6 % (11.0-16.0); White Blood Count 3.8 X10*3/uL (4.8-10.8)
[2021-04-21 11:43] LABS: COVID-19 Test Negative (Negative)
--- NOTE | 2021-04-21 11:45 | PC.NURSE ---
Crisis at bedside.
[2021-04-21 12:05] LABS: Platelet Count 111 X10*3/uL (160-400)
[2021-04-21 12:06] LABS: SLIDE REVIEW VERIFIED
--- NOTE | 2021-04-21 12:48 | PC.NURSE ---
Dr. Mejia and Dr. Ashby at bedside.
[2021-04-21 13:24] LABS: Amphetamine Screen Urine Not Detected (Not Detect); Barbiturates, Urine Not Detected (Not Detect); Benzodiazepines Screen Urine POSITIVE (Not Detect); Cannabinoid Screen Urine Not Detected (Not Detect); Cocaine Screen Urine POSITIVE (Not Detect); Opiate Screen Urine POSITIVE (Not Detect); Phencyclidine Screen Urine Not Detected (Not Detect)
[2021-04-21] MEDS: vancomycin HCL 1,000 MG in 0.9 % Sodium Chloride 250 ML 270 MG IV (14:18)
--- NOTE | 2021-04-21 14:34 | PC.NURSE ---
IV line established by Dr. Mejia using guided ultrasound. IV in R forearm. Iv antibiotic infusing. Med started late due to pt being a difficult stick. Dr Mejia aware.
--- NOTE | 2021-04-21 14:50 | P.HPHOSP_ITS ---
History of Present Illness Date of Service: 04/21/21 Chief Complaint: Intoxication, suicidal ideation, MRSA bacteremia 41-year-old female with past medical history of IV drug who initially presented to the hospital on 04/03 with abscess, patient underwent I&D on 04/05 and was being treated for cellulitis/abscess and possible bacteremia but left AMA on 04/06.? She came back 2 days later but she left again AMA on the 20 of April. Went out and report using IV drugs again, came back to the hospital with intoxication and suicidal ideation. Tree admitted to the medical floor to continue MRSA bacteremia treatment. She was unable to provide much of history S she was intoxicated was still in the emergency. Admitted for further evaluation treatment. Review of Systems Review of Systems: Unable to provide as she barely waking up with stimulation PMFSH Medical History Opioid dependence Substance abuse Substance abuse Social History Household Members: Unknown / Unable to assess Housing: Other Housing Other:: patient states she is homeless Do you presently have visiting nurse or other home services: No Unable to assess alcohol history related to: Unknown Alcohol intake: current Alcohol intake frequency: does not drink Patient Tobacco Use Status: Current everyday Tobacco user Tobacco use type: Cigarette Cigarette Packs Per Day: 0 Cigarettes Per Day: 3 Years Smoked: 10 Second Hand Smoke Exposure: No Substance Use Type: Crack/Cocaine and Heroin Advance Directives: Yes Advance Directives on File: Yes Advance Directives Date on File: 04/03/21 Patient : No service: No Current occupational status: disabled Meds Allergies Allergy/AdvReac Type Severity Reaction Status Date / Time azithromycin [AZITHROMYCIN] Allergy Unknown UNK Verified 04/07/21 17:15 erythromycin base Allergy Unknown RASH Verified 04/07/21 17:15 [ERYTHROMYCIN BASE] olanzapine [From ZYPREXA] Allergy Unknown PEDAL EDEMA Verified 04/07/21 17:15 quetiapine [From SEROQUEL] Allergy Unknown THROAT Verified 04/07/21 17:15 SWELLING risperidone [From RISPERDAL] Allergy Unknown TWITCHING Verified 04/07/21 17:15 shellfish derived Allergy Unknown VOMITING Verified 04/07/21 17:15 [SHELLFISH DERIVED] sulfamethoxazole Allergy Unknown ITCHING Verified 04/07/21 17:15 [From BACTRIM] trimethoprim [From BACTRIM] Allergy Unknown ITCHING Verified 04/07/21 17:15 arithromiosin Allergy Unknown Unknown Uncoded 08/24/20 16:06 sea food Allergy Unknown Unknown Uncoded 08/24/20 16:06 Sulfacet-R Allergy Unknown Unknown Uncoded 08/24/20 16:06 SEAFOOD AdvReac Unknown VOMIT Uncoded 06/07/20 15:47 Active Medications: Current Medications Generic Name Dose Route Start Last Admin Trade Name Freq PRN Reason Stop Dose Admin Acetaminophen 650 mg 04/21/21 14:29 Acetaminophen 325 Mg Tablet PO Q6H PRN Pain, Mild (Pain Scale 1-3) Clonidine HCl 0.1 mg 04/21/21 14:34 Clonidine Hcl 0.1 Mg Tablet PO TID PRN Opiate Withdrawal Protocol Enoxaparin Sodium 40 mg 04/21/21 16:00 Enoxaparin Sodium 40 Mg/0.4 Ml Syringe SUBCUT Q24H [facility] Hydroxyzine HCl 25 mg 04/21/21 17:00 Hydroxyzine Hcl 25 Mg Tablet PO QID [facility] Ketorolac Tromethamine 30 mg 04/21/21 14:35 Ketorolac Tromethamine 30 Mg/Ml Vial IVPUSH 04/26/21 14:34 Q6H PRN Pain, Mild (Pain Scale 1-3) Ondansetron HCl 4 mg 04/21/21 14:29 Ondansetron Hcl 4 Mg/2 Ml Vial IVPUSH Q8H PRN Nausea and Vomiting Sodium Chloride 3 ml 04/21/21 16:00 0.9 % Sodium Chloride Flush 3 Ml Syringe IVFLUSH QSHIFT [facility] Home Medications Medication Instructions Recorded Confirmed Last Taken Type aspirin 81 mg chewable tablet 80 mg PO DAILY 12/04/20 04/07/21 Unknown History cyanocobalamin (vitamin B-12) 1,000 mcg PO DAILY 12/04/20 04/07/21 Unknown History 1,000 mcg tablet (Vitamin B-12) diclofenac sodium 50 mg 50 mg PO TID PRN 12/04/20 04/07/21 Unknown History tablet,delayed release hydroxyzine pamoate 50 mg capsule 1 cap PO NEEDED PRN 12/04/20 04/07/21 Unknown History loratadine 10 mg tablet 10 mg PO DAILY 12/04/20 04/07/21 Unknown History multivitamin (Daily-Angle) 1 tab PO DAILY 12/04/20 04/07/21 Unknown History methadone 10 mg/mL oral concentrate 90 mg PO DAILY 12/23/20 04/03/21 12/20/20 History diazepam 5 mg tablet 1 tab PO TID 01/02/21 04/07/21 Unknown History zolpidem 5 mg tablet 5 mg PO BEDTIME PRN 01/02/21 04/07/21 Unknown History Physical Exam Vital Signs and Narrative: Vital Signs: Last Vital Signs Temp 98 F 04/21/21 09:36 Pulse 76 04/21/21 09:36 Resp 16 04/21/21 09:36 BP 114/62 04/21/21 09:36 Pulse Ox 98 04/21/21 09:36 Body Mass Index 29.3 Const: Other: Constitutional : Alert with stimulation, goes back to sleep quickly, not in distress was sleeping but get anxious upon waking complaining of severe pain Neck : Normal inspection, Supple Cardiovascular : RRR, S1 S2, no lower extremity edema Respiratory : Good bilateral air entry, no crackles, wheezes or rhonchi Gastrointestinal: soft, lax, Normal bowel sounds, Non tender Skin : Warm/Dry, ?no significant tenderness in right elbow with no drainage or erythema noted but subcutaneous granules can be filled, no erythema or warmth Neurological : Alert upon stimulation, oriented to self and place, No focal deficit Results Labs CBC and Chem 7: 04/21/21 11:21 Labs: Laboratory Results - last 24 hr 04/21/21 04/21/21 04/21/21 11:21 11:21 12:48 MCV 89.5 MCH 30.3 MCHC 33.9 RDW 13.6 Plt Count 111 L D MPV 11.7 Immature Gran % (Auto) 0.3 Neut % (Auto) 60.1 Lymph % (Auto) 31.6 [place] % (Auto) 5.3 Eos % (Auto) 1.9 Baso % (Auto) 0.8 Lymph # (Auto) 1.2 [place] # (Auto) 0.2 Eos # (Auto) 0.1 Baso # (Auto) 0.0 Abs Immat Gran (auto) 0.01 Absolute Neuts (auto) 2.3 Absolute Nucleated RBC 0.000 Nucleated RBC % (auto) 0.0 Smear Tech's Comments VERIFIED Urine Opiates Screen POSITIVE H Ur Barbiturates Screen Not Detected Ur Phencyclidine Scrn Not Detected Ur Amphetamines Screen Not Detected U Benzodiazepines Scrn POSITIVE H Urine Cocaine Screen POSITIVE H U Marijuana (THC) Screen Not Detected COVID-19 (ZACK) Negative COVID-19 Clin Com See Note Assessment and Plan (1) MRSA bacteremia: Status: Acute (2) Intravenous drug abuse: Status: Acute (3) Opioid use disorder, severe, dependence: Status: Acute (4) Suicidal ideation: Status: Acute (5) Intoxication by drug: Status: Acute 41-year-old female with past medical history of IV drug who initially presented to the hospital on 04/03 with abscess, patient underwent I&D on 04/05 and was being treated for cellulitis/abscess and possible bacteremia but left AMA on 04/06.? She came back 2 days later but she left again AMA on the 20 of April. Went out and report using IV drugs again, came back to the hospital with intoxication and suicidal ideation. [facility]. ?MRSA bacteremia Repeat blood cultures Primarily supposed to finish treatment on 05/18/21 Start IV vancomycin 1 g b.i.d. To get ID evaluation To place PICC line when we have a plan to discharge her Suicidal ideation Reported being suicidal but she is still lethargic and altered from overdose To keep a sitter in the room To get psychiatry evaluation Opioid abuse and dependence Drug overdose, possible withdrawal To start home does methadone home dose diclofenac Start Atarax and clonidine as needed morphine for breakthrough pain HCV outpatient follow up DVT prophylaxis:? Heparin subQ Quality Stroke Does the patient have a stroke diagnosis?: No VTE Prior VTE?: No VTE Risk Level:: Medical - moderate - high VTE Device Contraindication: N/A - Device Ordered VTE Drug Contraindication: Treatment Not Indicated
[2021-04-21 16:02] VITALS: BP 90/43; PULSE 74; RESP 18; TEMP 36.8; O2SAT 94
[2021-04-21] MEDS: 0.9 % Sodium Chloride Flush 3 ML SYRINGE IVFLUSH (16:36)
[2021-04-21] MEDS: Acetaminophen 325 MG TABLET 650 MG PO (16:48)
[2021-04-21 20:27] VITALS: BP 120/59; PULSE 78; RESP 18; TEMP 36.4; O2SAT 100
[2021-04-21] MEDS: diazePAM 5 MG TABLET PO (20:42)
[2021-04-21] MEDS: hydrOXYzine HCL 25 MG TABLET PO (20:42)
[2021-04-21] MEDS: Gabapentin 400 MG CAPSULE 800 MG PO (20:42)
[2021-04-21] MEDS: Morphine Sulfate 2 MG/ML CARTRIDGE IVPUSH (20:42)
--- NOTE | 2021-04-22 | ECG_ITS ---
Test Reason : CHECK INTERVAL Blood Pressure : / mmHG Vent. Rate : 064 BPM Atrial Rate : 064 BPM P-R Int : 178 ms QRS Dur : 088 ms QT Int : 434 ms P-R-T Axes : 029 030 014 degrees QTc Int : 447 ms Normal sinus rhythm Normal ECG When compared with ECG of 05-DEC-2020 15:31, No significant change was found Referred By: Nathan Gomes Electronically Signed By:Amadeo Gutierrez
[2021-04-22] MEDS: 0.9 % Sodium Chloride Flush 3 ML SYRINGE IVFLUSH ×3 (00:14→16:52)
[2021-04-22] MEDS: vancomycin HCL 1,000 MG in 0.9 % Sodium Chloride 250 ML 270 MG IV ×2 (02:28→14:05)
[2021-04-22 04:00] VITALS: RESP 16
[2021-04-22 08:00] VITALS: BP 129/69; PULSE 88; RESP 18; O2SAT 98
--- NOTE | 2021-04-22 09:02 | MHC.CM.PN ---
PATIENT IS A READMIT. LEFT AMA [facility] 04/20/21, AND RETURNED 04/21/21. HCP IS ON FILE AND VERIFIED. NO DME OR VNA SERVICES. CASE MANAGEMENT FOLLOWING FOR DC PLAN.
[2021-04-22] MEDS: lamoTRIgine 25 MG TABLET 50 MG PO (10:11)
[2021-04-22] MEDS: hydrOXYzine HCL 25 MG TABLET PO ×2 (10:11→21:26)
[2021-04-22] MEDS: Topiramate 100 MG TABLET 200 MG PO (10:11)
[2021-04-22] MEDS: diazePAM 5 MG TABLET PO ×3 (10:11→21:26)
[2021-04-22] MEDS: Gabapentin 400 MG CAPSULE 800 MG PO ×3 (10:12→21:26)
--- NOTE | 2021-04-22 10:28 | HO.PM.IMPN ---
Subjective Subjective Date of Service: 04/23/21 Interval History: The patient was seen and evaluated this morning Laying in bed, comfortable overall, sleeping Denies any fever, chills or shortness of breath No reported other overnight events. Systemic review: No fever, chills or weakness No chest pain, palpitation No shortness of breath or coughing No abdominal pain, nausea or vomiting No urinary symptoms Complaining of pain in her right upper extremity Review of Systems A Physical Exam Vital Signs: Vital Signs: Last Vital Signs Temp 97.6 F 04/21/21 20:27 Pulse 88 04/22/21 08:00 Resp 18 04/22/21 08:00 BP 129/69 04/22/21 08:00 Pulse Ox 98 04/22/21 08:00 Body Mass Index 29.3 Const: Other: Constitutional : Alert , not in distress, was sleeping but get anxious upon waking up Neck : Normal inspection, Supple Cardiovascular : RRR, S1 S2, no lower extremity edema Respiratory : Good bilateral air entry, no crackles, wheezes or rhonchi Gastrointestinal: soft, lax, Normal bowel sounds, Non tender Skin : Warm/Dry, ?no significant tenderness in right elbow with no drainage or erythema, no erythema or warmth Neurological : Alert , No focal deficit Objective Data Current Medications Generic Name Dose Route Start Last Admin Trade Name Freq PRN Reason Stop Dose Admin Acetaminophen 650 mg 04/21/21 14:29 04/21/21 16:48 Acetaminophen 325 Mg Tablet PO 650 mg Q6H PRN Administration Pain, Mild (Pain Scale 1-3) Clonidine HCl 0.1 mg 04/21/21 14:34 Clonidine Hcl 0.1 Mg Tablet PO TID PRN Opiate Withdrawal Protocol Diazepam 5 mg 04/21/21 21:00 04/22/21 10:11 Diazepam 5 Mg Tablet PO 5 mg TID EDER Administration Enoxaparin Sodium 40 mg 04/21/21 16:00 04/21/21 16:49 Enoxaparin Sodium 40 Mg/0.4 Ml Syringe SUBCUT Not Given Q24H EDER Gabapentin 800 mg 04/21/21 21:00 04/22/21 10:12 Gabapentin 400 Mg Capsule PO 800 mg TID EDER Administration Hydroxyzine HCl 25 mg 04/21/21 17:00 04/22/21 10:11 Hydroxyzine Hcl 25 Mg Tablet PO 25 mg QID EDER Administration Vancomycin HCl 1,000 mg/ 270 mls @ 270 mls/hr 04/22/21 02:00 04/22/21 05:14 Sodium Chloride IV Infused Q12H [facility] Infusion Ketorolac Tromethamine 30 mg 04/21/21 14:35 Ketorolac Tromethamine 30 Mg/Ml Vial IVPUSH 04/26/21 14:34 Q6H PRN Pain, Mild (Pain Scale 1-3) Lamotrigine 50 mg 04/22/21 09:00 04/22/21 10:11 Lamotrigine 25 Mg Tablet PO 50 mg DAILY EDER Administration Methadone HCl 40 mg 04/22/21 09:00 04/22/21 10:11 Methadone Hcl 1 Mg/0.1 Ml Oral.Conc PO 40 mg DAILY EDER Administration Morphine Sulfate 2 mg 04/21/21 15:00 04/21/21 20:42 Morphine Sulfate 2 Mg/Ml Cartridge IVPUSH 2 mg Q4H PRN Administration Pain, Severe (Pain Scale 7-10) Omeprazole 20 mg 04/21/21 16:30 04/22/21 06:06 Omeprazole 20 Mg Capsule. PO Not Given BID@0630,1630 [facility] Ondansetron HCl 4 mg 04/21/21 14:29 Ondansetron Hcl 4 Mg/2 Ml Vial IVPUSH Q8H PRN Nausea and Vomiting Pharmacy Consult 1 each 04/21/21 14:57 Consult Rx Vancomycin Dosing MISCELLANE DAILY PRN Consult order Sodium Chloride 3 ml 04/21/21 16:00 04/22/21 10:12 0.9 % Sodium Chloride Flush 3 Ml Syringe IVFLUSH 3 ml QSHIFT EDER Administration Topiramate 200 mg 04/22/21 09:00 04/22/21 10:11 Topiramate 100 Mg Tablet PO 200 mg DAILY EDER Administration Labs CBC & Chem 7: 04/21/21 11:21 04/23/21 00:45 Labs: Laboratory Results - last 24 hr 04/21/21 04/21/21 04/21/21 11:21 11:21 12:48 MCV 89.5 MCH 30.3 MCHC 33.9 RDW 13.6 Plt Count 111 L D MPV 11.7 Immature Gran % (Auto) 0.3 Neut % (Auto) 60.1 Lymph % (Auto) 31.6 [place] % (Auto) 5.3 Eos % (Auto) 1.9 Baso % (Auto) 0.8 Lymph # (Auto) 1.2 [place] # (Auto) 0.2 Eos # (Auto) 0.1 Baso # (Auto) 0.0 Abs Immat Gran (auto) 0.01 Absolute Neuts (auto) 2.3 Absolute Nucleated RBC 0.000 Nucleated RBC % (auto) 0.0 Smear Tech's Comments VERIFIED Urine Opiates Screen POSITIVE H Ur Barbiturates Screen Not Detected Ur Phencyclidine Scrn Not Detected Ur Amphetamines Screen Not Detected U Benzodiazepines Scrn POSITIVE H Urine Cocaine Screen POSITIVE H U Marijuana (THC) Screen Not Detected COVID-19 (ZACK) Negative COVID-19 Clin Com See Note Microbiology Microbiology Results: Microbiology 04/21/21 09:48 Blood Culture - Final Blood - Venous Assessment and Plan (1) Intoxication by drug: Status: Acute (2) Suicidal ideation: Status: Acute (3) MRSA bacteremia: Status: Acute Assessment and Plan: 41-year-old female with past medical history of IV drug who initially presented to the hospital on 04/03 with abscess, patient underwent I&D on 04/05 and was being treated for cellulitis/abscess and possible bacteremia but left AMA on 04/06.? She came back 2 days later but she left again AMA on the 20 of April. Went out and report using IV drugs again, came back to the hospital with intoxication and suicidal ideation. Tree admitted to the medical floor to continue MRSA bacteremia treatment. ?MRSA bacteremia Repeat blood cultures Primarily supposed to finish treatment on 05/18/21 Start IV vancomycin 1 g b.i.d. day 2 Pending ID evaluation To place PICC line when we have a plan to discharge her Suicidal ideation Reported being suicidal but she is still lethargic and altered from overdose To keep a sitter in the room Psychiatry input appreciated, keep a sitter in room , is not suicidal anymore Opioid abuse and dependence Drug overdose, possible withdrawal start methadone home dose diclofenac Start Atarax and clonidine as needed morphine for breakthrough pain HCV outpatient follow up DVT prophylaxis Heparin subQ Quality Stroke Does the patient have a stroke diagnosis?: No VTE Prior VTE?: No VTE Risk Level:: Medical - moderate - high VTE Device Contraindication: N/A - Device Ordered VTE Drug Contraindication: Treatment Not Indicated
--- NOTE | 2021-04-22 11:22 | MHC.CARE ---
Pt to be referred to [facility] CRISIS and CARE Team when medically cleared.
[2021-04-22 12:00] VITALS: BP 134/58; PULSE 82; RESP 18; O2SAT 99
--- NOTE | 2021-04-22 12:02 | MHC.CM.PN ---
MESSAGE LEFT FOR [facility] CLINICIAN LUX LATHAM @ [phone] TO INQUIRE ABOUT POSSIBLE SERVICES/RESOURCES PATIENT HAS IN THE COMMUNITY
[2021-04-22] MEDS: Ketorolac Tromethamine 30 MG/ML VIAL IVPUSH (14:03)
--- NOTE | 2021-04-22 14:16 | MHC.CM.PN ---
CALL TO [facility] OFFICE ([phone]) VOICEMAIL LEFT FOR [facility] WORKER, NANCY CALDERÓN WITH A REQUEST TO CALL THIS PROCESS TRAINER BACK. CONTACT NUMBER LEFT ON VOICEMAIL.
--- NOTE | 2021-04-22 14:54 | P.CNPS_ITS ---
History of Present Illness Date of Service: 04/22/2021 Chief Complaint: Intoxication, Suicidal ideation, MRSA bacteremia Reason for Consult: suicidal ideation, opioid withdrawals Requesting physician: Nathan Gomes Discussed with referring provider: Yes Sources of Information: patient interviewed, chart reviewed and crisis/core team assessment reviewed HPI Narrative: Patient is a 41-year-old female with multiple hospital and inpatient psychiatric admissions. Patient was most recently here until several days ago, when Left AMA on April 20, and returned the following day, intoxicated with both heroin and cocaine. Toxicology screen upon repeat presenta tion was positive for benzodiazepines, opioids, and cocaine. Patient apparently had made suicidal gestures during admission. Psychiatry was asked to meet with patient regarding suicidal ideation. This caption writer met with patient this morning, she was lying on side wrapped in blankets eyes closed. She was easily arousable. When asked about her statements regarding self-harm, she reported ?I do not want to hurt myself ?. She then stated ?I was just going crazy from all the stuff ?, referring to her state of intoxication upon presentation. She then stated ?I am so tired ?, was here a month. Patient is currently working with recovery team here, and had been placed on methadone most recently 40 mg while here. Patient has had history of prolonged QTC in the past. Past Psychiatric History: extensive. Patient has been inpatient psychiatric hospitalized multiple times over the years, most recently here on M5 in summer 2019, at which time she was discharged under a [address]. She has been brought to [facility] [place] multiple times, due to suicidal or homicidal ideation at times, and due to altered mental status related to substance use disorder. She has been placed under Section 35 in the past, and has also participated in [facility] program [facility] and are in [place]. She has had multiple trials of psychiatric medications in the past, and has been treated for bipolar disorder / depression. Current medications include Topamax, Lamictal, gabapentin, Valium. Medical Evaluation Reviewed: Yes Personal & Social History: Patient has been a client at [employer] in the past, and had been receiving doses as high as 125 mg of methadone daily at 1 time. She had also been given take-home doses As recently as November of this year, but had overdosed with them. Review of Systems Review of Systems Patient reports she is in active withdrawals, with generalized body aches, yawning,anxiety, generalized malaise. Yes all other systems are reviewed and are negative Constitutional: Reports fatigue, Reports lethargy and Reports malaise Eyes: Reports no additional eye complaints Reports Normal hearing present Cardiovascular: Reports no additional cardiovascular complaints Respiratory: Reports no additional respiratory complaints Gastrointestinal: Reports no additional gastrointestinal complaints Genitourinary: Reports no additional female genitourinary complaints Musculoskeletal: Reports muscle cramps Reports Normal hearing present Psychiatric: Reports anxiety, Reports depression and Reports irritability Comments: Patient denies any thought of wanting to harm herself or others at this time. Endocrine: Reports fatigue [facility] Medical History Opioid dependence Substance abuse Substance abuse Family History: Patient has mother in which she is in contact with, no pertinent family medical information. Social History: Currently homeless, currently unemployed. Substance History: Extensive use of heroin, as much as 5-6 bundles of the IV daily, crack cocaine, nicotine. Diagnostics Vital Signs (24Hr): Vital Signs - 24 hr 04/21/21 16:02 04/21/21 20:27 04/22/21 04:00 Temperature 98.3 F 97.6 F Pulse Rate 74 78 Respiratory Rate 18 18 16 Blood Pressure 90/43 L 120/59 L Pulse Oximetry 94 100 04/22/21 08:00 04/22/21 12:00 Temperature Pulse Rate 88 82 Respiratory Rate 18 18 Blood Pressure 129/69 134/58 L Pulse Oximetry 98 99 Body Mass Index 29.3 Labs Results: 04/21/21 11:21 Labs: Laboratory Results - last 48 hr 04/21/21 04/21/21 04/21/21 11:21 11:21 12:48 WBC 3.8 L RBC 3.89 L Hgb 11.8 L Hct 34.8 L MCV 89.5 MCH 30.3 MCHC 33.9 RDW 13.6 Plt Count 111 L D MPV 11.7 Immature Gran % (Auto) 0.3 Neut % (Auto) 60.1 Lymph % (Auto) 31.6 Sully % (Auto) 5.3 Eos % (Auto) 1.9 Baso % (Auto) 0.8 Lymph # (Auto) 1.2 Sully # (Auto) 0.2 Eos # (Auto) 0.1 Baso # (Auto) 0.0 Abs Immat Gran (auto) 0.01 Absolute Neuts (auto) 2.3 Absolute Nucleated RBC 0.000 Nucleated RBC % (auto) 0.0 Smear Tech's Comments VERIFIED Urine Opiates Screen POSITIVE H Ur Barbiturates Screen Not Detected Ur Phencyclidine Scrn Not Detected Ur Amphetamines Screen Not Detected U Benzodiazepines Scrn POSITIVE H Urine Cocaine Screen POSITIVE H U Marijuana (THC) Screen Not Detected COVID-19 (ZACK) Negative COVID-19 Clin Com See Note Mental Status Exam Mental Status Exam Patient Appearance: Fatigued and Disheveled Patient Orientation: Person, Place, Time and Situation Level of Consciousness: Alert (Appeared to be sleeping, somnolent, but was easily arousable and alert.) Patient Behavior: Restless and Resistive to Care Mood Description: Labile and Angry (angry, irritable.) Affect Description: Depressed, Labile (irritable edge) and Angry Patient Cognition Impaired: No Ability to Follow Directions: Excellent Speech Pattern: Clear Memory Description: Intact Hallucinations: None Delusions: Not Present Thought Process: Intact Thought Content: positive for Intact Judgement: Poor Medications Medications Current Medications Generic Name Dose Route Start Last Admin Trade Name Freq PRN Reason Stop Dose Admin Acetaminophen 650 mg 04/21/21 14:29 04/21/21 16:48 Acetaminophen 325 Mg Tablet PO 650 mg Q6H PRN Administration Pain, Mild (Pain Scale 1-3) Clonidine HCl 0.1 mg 04/21/21 14:34 Clonidine Hcl 0.1 Mg Tablet PO TID PRN Opiate Withdrawal Protocol Diazepam 5 mg 04/21/21 21:00 04/22/21 14:05 Diazepam 5 Mg Tablet PO 5 mg TID EDER Administration Enoxaparin Sodium 40 mg 04/21/21 16:00 04/21/21 16:49 Enoxaparin Sodium 40 Mg/0.4 Ml Syringe SUBCUT Not Given Q24H EDER Gabapentin 800 mg 04/21/21 21:00 04/22/21 14:05 Gabapentin 400 Mg Capsule PO 800 mg TID EDER Administration Hydroxyzine HCl 25 mg 04/21/21 17:00 04/22/21 13:56 Hydroxyzine Hcl 25 Mg Tablet PO Not Given QID EDER Vancomycin HCl 1,000 mg/ 270 mls @ 270 mls/hr 04/22/21 02:00 04/22/21 14:05 Sodium Chloride IV 270 mls/hr Q12H EDER Administration Ketorolac Tromethamine 30 mg 04/21/21 14:35 04/22/21 14:03 Ketorolac Tromethamine 30 Mg/Ml Vial IVPUSH 04/26/21 14:34 30 mg Q6H PRN Administration Pain, Mild (Pain Scale 1-3) Lamotrigine 50 mg 04/22/21 09:00 04/22/21 10:11 Lamotrigine 25 Mg Tablet PO 50 mg DAILY EDER Administration Methadone HCl 40 mg 04/22/21 09:00 04/22/21 10:11 Methadone Hcl 1 Mg/0.1 Ml Oral.Conc PO 40 mg DAILY EDER Administration Morphine Sulfate 2 mg 04/21/21 15:00 04/21/21 20:42 Morphine Sulfate 2 Mg/Ml Cartridge IVPUSH 2 mg Q4H PRN Administration Pain, Severe (Pain Scale 7-10) Omeprazole 20 mg 04/21/21 16:30 04/22/21 06:06 Omeprazole 20 Mg Capsule.Dr BRICENO Not Given BID@0630,1100 [facility] Ondansetron HCl 4 mg 04/21/21 14:29 Ondansetron Hcl 4 Mg/2 Ml Vial IVPUSH Q8H PRN Nausea and Vomiting Pharmacy Consult 1 each 04/21/21 14:57 Consult Rx Vancomycin Dosing MISCELLANE DAILY PRN Consult order Sodium Chloride 3 ml 04/21/21 16:00 04/22/21 10:12 0.9 % Sodium Chloride Flush 3 Ml Syringe IVFLUSH 3 ml QSHIFT EDER Administration Topiramate 200 mg 04/22/21 09:00 04/22/21 10:11 Topiramate 100 Mg Tablet PO 200 mg DAILY EDER Administration Allergies Allergies Allergy/AdvReac Type Severity Reaction Status Date / Time azithromycin [AZITHROMYCIN] Allergy Unknown UNK Verified 04/07/21 17:15 erythromycin base Allergy Unknown RASH Verified 04/07/21 17:15 [ERYTHROMYCIN BASE] olanzapine [From ZYPREXA] Allergy Unknown PEDAL EDEMA Verified 04/07/21 17:15 quetiapine [From SEROQUEL] Allergy Unknown THROAT Verified 04/07/21 17:15 SWELLING risperidone [From RISPERDAL] Allergy Unknown TWITCHING Verified 04/07/21 17:15 shellfish derived Allergy Unknown VOMITING Verified 04/07/21 17:15 [SHELLFISH DERIVED] sulfamethoxazole Allergy Unknown ITCHING Verified 04/07/21 17:15 [From BACTRIM] trimethoprim [From BACTRIM] Allergy Unknown ITCHING Verified 04/07/21 17:15 arithromiosin Allergy Unknown Unknown Uncoded 08/24/20 16:06 sea food Allergy Unknown Unknown Uncoded 08/24/20 16:06 Sulfacet-R Allergy Unknown Unknown Uncoded 08/24/20 16:06 SEAFOOD AdvReac Unknown VOMIT Uncoded 06/07/20 15:47 Assessment & Plan Assessment & Plan (1) Opioid use disorder, severe, dependence: Status: Acute Code(s): F11.20 - Opioid dependence, uncomplicated Recommendations: Patient has longstanding history of severe opioid use disorder, most recent use several days ago. Patient has been engaged in methadone treatment in the past, with some positive affect. Patient reports she is experiencing opioid withdrawals, requesting to be re- initiated back on her standard methadone dose. Patient most recently had been receiving methadone 40 mg daily while here. As patient had only recently left and returned the next day, and considering the long-half life of methadone, would recommend resuming dose today. (2) Cocaine abuse: Status: Acute Code(s): F14.10 - Cocaine abuse, uncomplicated Recommendations: Patient reports she has been using crack cocaine along with heroin. There are no current FDA approved medications for cocaine withdrawals or maintenance. Patient currently working with recovery team regarding ongoing support and aftercare planning regarding substance use disorder. (3) Bipolar 1 disorder, depressed: Status: Acute Code(s): F31.9 - Bipolar disorder, unspecified Recommendations: Patient currently receiving medications for mood stabilization related to bipolar 1 disorder, most recent episode depressed. She reports that ?I do not want to hurt myself ?. She stated that she did make suicidal gestures upon readmission to emergency department, But that ?I was just going crazy from all the staff ?. She denies any type of thoughts of harm to self or others at this time. Recommendations: 1. Reinitiate methadone 40mg daily, start today. Recovery Team VENIPUNCTURIST can reassess tomorrow, and make any dose titration recommendations. 2. Obtain EKG. 3. Continue with psychiatric medications as prescribed. 4. Would consider keeping sitter for today, until patient has received methadone and is no longer in active withdrawals. At that time she could be assessed further. 5. However, patient does have capacity, and has stated she has no intention of self-harm. This case has been discussed with Cares Team (May Copeland) and recommendations have been shared with Dr. Nathan Gomes, as well as Recovery Support team RN, via secure electronic messaging. Greater than 50% of the session was spent on counseling and/or coordination of care Patient educated on: diagnosis, medication risk/benefits and therapeutic strategies
[2021-04-22 15:29] VITALS: BP 160/72; PULSE 74; RESP 20; TEMP 36.6; O2SAT 97
--- NOTE | 2021-04-22 15:32 | MHC.RECOVSUP ---
Recovery Support note: Patient is a 41 year old [place]raini speaking female who presented [place] [facility] [place] SI and a recent overdose attempt. Patient was medically admitted due to an infection. Patient is known to this copy writer from previous consultations. This copy writer attempted to meet with patient to see how she is doing and to discuss her recovery. Patient appeared to be sleeping but awoke when this copy writer spoke her name. Patient reports she is feeling awful and that she does not want to talk at this time. Recovery Support Team will follow up with patient later on in her stay.
--- NOTE | 2021-04-22 16:26 | P.CNID_ITS ---
History of Present Illness Data of Consult Service Date: 04/22/21 Requesting physician: Nathan Gomes Primary Care Provider: None Physician HPI Reason for consult: MRSA bacteremia She presents with depression and suicidal ideation She has blood cultures MRSA in past She left AMA twice and has not finished course for endocarditis Review of Systems Review of Systems: Yes all other systems are reviewed and are negative PMFSH Past Medical History Medical History Opioid dependence Substance abuse Substance abuse Social History Social History Household Members: Family Housing: House Housing Other:: patient states she is homeless Do you presently have visiting nurse or other home services: No Unable to assess alcohol history related to: Unknown Alcohol intake: current Alcohol intake frequency: does not drink Patient Tobacco Use Status: Current everyday Tobacco user Tobacco use type: Cigarette Cigarette Packs Per Day: 0 Cigarettes Per Day: 3 Years Smoked: 10 Second Hand Smoke Exposure: No Substance Use Type: Crack/Cocaine, Heroin and IV Drugs Advance Directives: Yes Advance Directives on File: Yes Advance Directives Date on File: 04/03/21 Patient : No service: No Current occupational status: disabled Meds Allergies Allergy/AdvReac Type Severity Reaction Status Date / Time azithromycin [AZITHROMYCIN] Allergy Unknown UNK Verified 05/22/21 18:18 erythromycin base Allergy Unknown RASH Verified 05/22/21 18:18 [ERYTHROMYCIN BASE] olanzapine [From ZYPREXA] Allergy Unknown PEDAL EDEMA Verified 05/22/21 18:18 quetiapine [From SEROQUEL] Allergy Unknown THROAT Verified 05/22/21 18:18 SWELLING risperidone [From RISPERDAL] Allergy Unknown TWITCHING Verified 05/22/21 18:18 shellfish derived Allergy Unknown VOMITING Verified 05/22/21 18:18 [SHELLFISH DERIVED] sulfacetamide Allergy Unknown Unknown Verified 05/22/21 18:18 [From Sulfacet-R] sulfamethoxazole Allergy Unknown ITCHING Verified 05/22/21 18:18 [From BACTRIM] sulfur [From Sulfacet-R] Allergy Unknown Unknown Verified 05/22/21 18:18 trimethoprim [From BACTRIM] Allergy Unknown ITCHING Verified 05/22/21 18:18 seafood AdvReac Unknown Vomiting Verified 05/22/21 18:18 Active Medications: Current Medications Generic Name Dose Route Start Last Admin Trade Name Freq PRN Reason Stop Dose Admin Acetaminophen 650 mg 04/21/21 14:29 04/21/21 16:48 Acetaminophen 325 Mg Tablet PO 650 mg Q6H PRN Administration Pain, Mild (Pain Scale 1-3) Clonidine HCl 0.1 mg 04/21/21 14:34 Clonidine Hcl 0.1 Mg Tablet PO TID PRN Opiate Withdrawal Protocol Diazepam 5 mg 04/21/21 21:00 04/22/21 14:05 Diazepam 5 Mg Tablet PO 5 mg TID [facility] Administration Enoxaparin Sodium 40 mg 04/21/21 16:00 04/21/21 16:49 Enoxaparin Sodium 40 Mg/0.4 Ml Syringe SUBCUT Not Given Q24H [facility] Gabapentin 800 mg 04/21/21 21:00 04/22/21 14:05 Gabapentin 400 Mg Capsule PO 800 mg TID [facility] Administration Hydroxyzine HCl 25 mg 04/21/21 17:00 04/22/21 13:56 Hydroxyzine Hcl 25 Mg Tablet PO Not Given QID [facility] Vancomycin HCl 1,000 mg/ 270 mls @ 270 mls/hr 04/22/21 02:00 04/22/21 15:18 Sodium Chloride IV Infused Q12H [facility] Infusion Ketorolac Tromethamine 30 mg 04/21/21 14:35 04/22/21 14:03 Ketorolac Tromethamine 30 Mg/Ml Vial IVPUSH 04/26/21 14:34 30 mg Q6H PRN Administration Pain, Mild (Pain Scale 1-3) Lamotrigine 50 mg 04/22/21 09:00 04/22/21 10:11 Lamotrigine 25 Mg Tablet PO 50 mg DAILY [facility] Administration Methadone HCl 40 mg 04/22/21 09:00 04/22/21 10:11 Methadone Hcl 1 Mg/0.1 Ml Oral.Conc PO 40 mg DAILY [facility] Administration Morphine Sulfate 2 mg 04/21/21 15:00 04/21/21 20:42 Morphine Sulfate 2 Mg/Ml Cartridge IVPUSH 2 mg Q4H PRN Administration Pain, Severe (Pain Scale 7-10) Omeprazole 20 mg 04/21/21 16:30 04/22/21 06:06 Omeprazole 20 Mg Capsule.Dr PO Not Given BID@7730,1630 [facility] Ondansetron HCl 4 mg 04/21/21 14:29 Ondansetron Hcl 4 Mg/2 Ml Vial IVPUSH Q8H PRN Nausea and Vomiting Pharmacy Consult 1 each 04/21/21 14:57 Consult Rx Vancomycin Dosing MISCELLANE DAILY PRN Consult order Sodium Chloride 3 ml 04/21/21 16:00 04/22/21 10:12 0.9 % Sodium Chloride Flush 3 Ml Syringe IVFLUSH 3 ml QSHIFT [facility] Administration Topiramate 200 mg 04/22/21 09:00 04/22/21 10:11 Topiramate 100 Mg Tablet PO 200 mg DAILY [facility] Administration Home Medications Medication Instructions Recorded Confirmed Last Taken Type aspirin 81 mg chewable tablet 1 tab PO DAILY 06/07/21 06/07/21 Unknown History buspirone 30 mg tablet 1 tab PO BID 06/07/21 06/07/21 Unknown History clonidine HCl 0.1 mg tablet 1 tab PO TID PRN 06/07/21 06/07/21 Unknown History cyanocobalamin (vitamin B-12) 1 tab PO DAILY 06/07/21 06/07/21 Unknown History 1,000 mcg tablet cyclobenzaprine 5 mg tablet 1 tab PO TID PRN 06/07/21 06/07/21 Unknown History diazepam 5 mg tablet 1 tab PO TID 06/07/21 06/07/21 Unknown History diclofenac sodium 50 mg 1 tab PO TID PRN 06/07/21 06/07/21 Unknown History tablet,delayed release gabapentin 800 mg tablet 1 tab PO TID 06/07/21 06/07/21 Unknown History hydroxyzine HCl 25 mg tablet 1 tab PO QID 06/07/21 06/07/21 Unknown History hydroxyzine pamoate 50 mg capsule 1 cap PO BID PRN 06/07/21 06/07/21 Unknown History lamotrigine 25 mg tablet 2 tab PO DAILY 06/07/21 06/07/21 Unknown History loratadine 10 mg tablet 1 tab PO DAILY 06/07/21 06/07/21 Unknown History propranolol 20 mg tablet 1 tab PO Q6H PRN 06/07/21 06/07/21 Unknown History zolpidem 5 mg tablet 1 tab PO BEDTIME PRN 06/07/21 06/07/21 Unknown History Physical Exam Vital Signs: Vital Signs: Last Vital Signs Temp 98 F 04/22/21 15:29 Pulse 74 04/22/21 15:29 Resp 20 04/22/21 15:29 BP 160/72 H 04/22/21 15:29 Pulse Ox 97 04/22/21 15:29 Body Mass Index 29.3 Const: General: cooperative HENMT: Head: Yes normal to inspection Mouth: Normal oral and palatal mucosa present Resp: Effort & Inspection: normal respiratory effort Cardio: Rate: regular rate Rhythm: regular rhythm GI: Palpation (GI): Soft to palpation and nontender Skin: Other: resolving abrasions right arm Results Labs CBC & Chem 7: 04/29/21 07:49 05/14/21 10:43 Microbiology Microbiology Results: Microbiology 04/21/21 11:21 Blood - Venous Blood Culture - Preliminary No growth after 24 hours. 04/21/21 09:48 Blood - Venous Blood Culture - Final Assessment and Plan (1) Suicidal ideation: Status: Acute (2) MRSA bacteremia: Status: Resolved total 6 weeks antibiotic,Vancomycin she can start from day initially administered
[2021-04-22] MEDS: Omeprazole 20 MG CAPSULE.DR PO (16:51)
[2021-04-22] MEDS: Morphine Sulfate 2 MG/ML CARTRIDGE IVPUSH (19:25)
[2021-04-22 19:38] VITALS: BP 155/75; PULSE 72; RESP 20; TEMP 36.7; O2SAT 100
[2021-04-22 22:47] VITALS: BP 158/80; PULSE 70; RESP 16; TEMP 36.4; O2SAT 98
[2021-04-23] MEDS: vancomycin HCL 1,000 MG in 0.9 % Sodium Chloride 250 ML 270 MG IV (02:09)
[2021-04-23 03:25] VITALS: RESP 16
[2021-04-23 08:00] VITALS: BP 150/77; PULSE 99; RESP 18; TEMP 36.1; O2SAT 97
[2021-04-23] MEDS: lamoTRIgine 25 MG TABLET 50 MG PO (08:55)
[2021-04-23] MEDS: Topiramate 100 MG TABLET 200 MG PO (08:55)
[2021-04-23] MEDS: diazePAM 5 MG TABLET PO ×3 (08:55→20:35)
[2021-04-23] MEDS: hydrOXYzine HCL 25 MG TABLET PO ×4 (08:56→20:35)
[2021-04-23] MEDS: Gabapentin 400 MG CAPSULE 800 MG PO ×3 (08:56→20:35)
[2021-04-23] MEDS: 0.9 % Sodium Chloride Flush 3 ML SYRINGE IVFLUSH ×3 (08:57→20:35)
--- NOTE | 2021-04-23 10:16 | MHC.CM.PN ---
CALL RECEIVED FROM PATIENT'S FORMER [facility] COMMUNITY OUTREACH RETAIL CASHIER, NANCY PER CONVERSATION, PATIENT'S SERVICES HAVE BEEN CLOSED; BUT [facility] IS HAPPY TO RE-INSTATE [facility] IS ABLE TO PROVIDE HOUSING AND THERAPEUTIC INTERVENTIONS, WELL 24 HOUR CARE THIS [employer] DEVELOPER ATTEMPTED TO SPEAK WITH PATIENT ABOUT THE POSSIBILITY; HOWEVER, [facility] IS NOT RESPONDING TO THIS [employer] DEVELOPER'S ATTEMPTS. CM TO REVISIT TODAY
--- NOTE | 2021-04-23 10:56 | MHC.CARE ---
1020-Attempted to meet with pt to conduct a Risk Assessment. Pt appeared to be sleeping but awoke when CARE Team spoke her name. She grew immediately loud saying she didn't feel well and that it was too early to speak with anyone. Pt was highly resistant to having any form of conversation and grew increasingly louder with her protests. Pt requested that I return Much later to speak with her.
[2021-04-23 11:56] VITALS: BP 153/83; PULSE 106; RESP 18; TEMP 36; O2SAT 99
[2021-04-23] MEDS: Morphine Sulfate 2 MG/ML CARTRIDGE IVPUSH ×2 (12:00→17:07)
[2021-04-23 13:19] LABS: Anion Gap 12 (12-20); Blood Urea Nitrogen 9 mg/dL (9-16); Calcium 8.5 mg/dL (8.4-10.2); Carbon Dioxide 18 mmol/L (22-29); Chloride 116 mmol/L (96-108); Creatinine Clr Calc Pharmacy 105.2; Estimated Glomerular Filt Rate > 60; Glucose Random 114 mg/dL (60-115); Potassium 3.7 mmol/L (3.3-5.1); Sodium 142 mmol/L (135-145)
--- NOTE | 2021-04-23 13:35 | HO.PM.IMPN ---
Subjective Subjective Date of Service: 04/23/21 Interval History: The patient was seen and evaluated this morning Laying in bed, sleeping, started to complain of generalized pain upon waking Denies any fever, chills or shortness of breath No reported other overnight events. Systemic review: No fever, chills but has generalized pain No chest pain, palpitation No shortness of breath or coughing No abdominal pain, nausea or vomiting No urinary symptoms Physical Exam Vital Signs: Vital Signs: Last Vital Signs Temp 96.8 F 04/23/21 11:56 Pulse 106 H 04/23/21 11:56 Resp 18 04/23/21 11:56 BP 153/83 H 04/23/21 11:56 Pulse Ox 99 04/23/21 11:56 Body Mass Index 29.3 Const: Other: Constitutional : Alert , not in distress, get mildly anxious upon waking up Neck : Normal inspection, Supple Cardiovascular : RRR, S1 S2, no lower extremity edema Respiratory : Good bilateral air entry, no crackles, wheezes or rhonchi Gastrointestinal: soft, lax, Normal bowel sounds, Non tender Skin : Warm/Dry, ?no significant tenderness in right elbow with no drainage or erythema, no erythema or warmth Neurological : Alert , No focal deficit Objective Data Current Medications Generic Name Dose Route Start Last Admin Trade Name Freq PRN Reason Stop Dose Admin Acetaminophen 650 mg 04/21/21 14:29 04/21/21 16:48 Acetaminophen 325 Mg Tablet PO 650 mg Q6H PRN Administration Pain, Mild (Pain Scale 1-3) Clonidine HCl 0.1 mg 04/21/21 14:34 Clonidine Hcl 0.1 Mg Tablet PO TID PRN Opiate Withdrawal Protocol Diazepam 5 mg 04/21/21 21:00 04/23/21 08:55 Diazepam 5 Mg Tablet PO 5 mg TID EDER Administration Enoxaparin Sodium 40 mg 04/21/21 16:00 04/22/21 16:52 Enoxaparin Sodium 40 Mg/0.4 Ml Syringe SUBCUT Not Given Q24H EDER Gabapentin 800 mg 04/21/21 21:00 04/23/21 08:56 Gabapentin 400 Mg Capsule PO 800 mg TID EDER Administration Hydroxyzine HCl 25 mg 04/21/21 17:00 04/23/21 12:01 Hydroxyzine Hcl 25 Mg Tablet PO 25 mg QID EDER Administration Vancomycin HCl 1,250 mg/ 250 mls @ 166.667 mls/hr 04/23/21 14:00 Sodium Chloride IV Q12H EDER Ketorolac Tromethamine 30 mg 04/21/21 14:35 04/22/21 14:03 Ketorolac Tromethamine 30 Mg/Ml Vial IVPUSH 04/26/21 14:34 30 mg Q6H PRN Administration Pain, Mild (Pain Scale 1-3) Lamotrigine 50 mg 04/22/21 09:00 04/23/21 08:55 Lamotrigine 25 Mg Tablet PO 50 mg DAILY EDER Administration Methadone HCl 40 mg 04/22/21 09:00 04/23/21 08:55 Methadone Hcl 1 Mg/0.1 Ml Oral.Conc PO 40 mg DAILY EDER Administration Morphine Sulfate 2 mg 04/21/21 15:00 04/23/21 12:00 Morphine Sulfate 2 Mg/Ml Cartridge IVPUSH 2 mg Q4H PRN Administration Pain, Severe (Pain Scale 7-10) Omeprazole 20 mg 04/21/21 16:30 04/23/21 05:41 Omeprazole 20 Mg Capsule. PO Not Given BID@0630,1630 [facility] Ondansetron HCl 4 mg 04/21/21 14:29 Ondansetron Hcl 4 Mg/2 Ml Vial IVPUSH Q8H PRN Nausea and Vomiting Pharmacy Consult 1 each 04/21/21 14:57 Consult Rx Vancomycin Dosing MISCELLANE DAILY PRN Consult order Sodium Chloride 3 ml 04/21/21 16:00 04/23/21 08:57 0.9 % Sodium Chloride Flush 3 Ml Syringe IVFLUSH 3 ml QSHIFT [facility] Administration Topiramate 200 mg 04/22/21 09:00 04/23/21 08:55 Topiramate 100 Mg Tablet PO 200 mg DAILY [facility] Administration Labs CBC & Chem 7: 04/21/21 11:21 04/23/21 00:45 Labs: Laboratory Results - last 24 hr 04/23/21 04/23/21 00:45 00:49 Anion Gap 12 Estim Creat Clear Calc 105.2 Estimated GFR > 60 Random Glucose 114 Calcium 8.5 D Vancomycin Trough 10.0 Microbiology Microbiology Results: Microbiology 04/21/21 11:21 Blood Culture - Preliminary Blood - Venous No growth after 48 hours. Assessment and Plan (1) MRSA bacteremia: Status: Acute (2) Intoxication by drug: Status: Acute (3) Suicidal ideation: Status: Acute Assessment and Plan: 41-year-old female with past medical history of IV drug who initially presented to the hospital on 04/03 with abscess, patient underwent I&D on 04/05 and was being treated for cellulitis/abscess and possible bacteremia but left AMA on 04/06.? She came back 2 days later but she left again AMA on the 20 of April. Went out and report using IV drugs again, came back to the hospital with intoxication and suicidal ideation. Tree admitted to the medical floor to continue MRSA bacteremia treatment. ?MRSA bacteremia Repeat blood cultures negative Continue IV vancomycin 1 g b.i.d. To finish treatment on 05/18/21 ID input appreciated, continue antibiotics as primarily suggested To place PICC line when we have a plan to discharge her Suicidal ideation Denies any suicidal ideation at this point [facility] Psych[facility] input appreciated, not suicidal anymore Opioid abuse and dependence Drug overdose Continue 40 mg methadone home dose diclofenac Atarax and clonidine as needed HCV outpatient follow up DVT prophylaxis Heparin subQ Quality Stroke Does the patient have a stroke diagnosis?: No VTE Prior VTE?: No VTE Risk Level:: Medical - moderate - high VTE Device Contraindication: N/A - Device Ordered VTE Drug Contraindication: Treatment Not Indicated
--- NOTE | 2021-04-23 13:48 | MHC.CM.PN ---
PATIENT IS AWARE THAT THERE IS A REFERRAL TO [facility] SHE IS REUSING TO DC TO [facility] FOR LT ABX. 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. AND RN AWARE OF PLAN.
[2021-04-23] MEDS: vancomycin HCL 1,250 MG in 0.9 % Sodium Chloride 250 ML 166.67 MG IV (14:08)
[2021-04-23 15:15] VITALS: BP 192/79; PULSE 58; RESP 18; TEMP 36.2; O2SAT 96
[2021-04-23] MEDS: Omeprazole 20 MG CAPSULE.DR PO (16:59)
--- NOTE | 2021-04-23 18:59 | MHC.CARE ---
6:30pm -Attempted to meet with pt to conduct Risk Assessment. Pt presents with extremely loud and pressured speech when this proposal manager writer introduced herself stating What do you guys want, you can't do anything for me . This proposal manager writer attempted to explain a Risk Assessment and pt yelled I am not suicidal. Just sick in the head. You guys don't do anything for me. You just throw me back on the streets. I hate you guys. Now leave me alone . Pt continued to be resistant to answering questions and became more verbally aggressive through out conversation. Pt stated I am not going to talk to you or crisis. You guys don't do anything. I don't need your help. I can help myself . Pt ended conversation by going into bathroom.
[2021-04-23 23:56] VITALS: BP 110/62; PULSE 58; RESP 18; TEMP 35.8; O2SAT 96
[2021-04-24] MEDS: Morphine Sulfate 2 MG/ML CARTRIDGE IVPUSH ×5 (00:15→21:05)
[2021-04-24] MEDS: Melatonin 3 MG TABLET 6 MG PO ×2 (01:38→23:59)
[2021-04-24] MEDS: vancomycin HCL 1,250 MG in 0.9 % Sodium Chloride 250 ML 166.67 MG IV (01:38)
[2021-04-24 04:00] VITALS: BP 95/43; PULSE 55; RESP 18; TEMP 35.9; O2SAT 97
[2021-04-24] MEDS: Omeprazole 20 MG CAPSULE.DR PO ×2 (06:19→15:54)
[2021-04-24 08:00] VITALS: BP 111/64; PULSE 106; RESP 18; TEMP 36.6; O2SAT 98
[2021-04-24] MEDS: 0.9 % Sodium Chloride Flush 3 ML SYRINGE IVFLUSH ×3 (09:59→21:13)
[2021-04-24] MEDS: lamoTRIgine 25 MG TABLET 50 MG PO (10:00)
[2021-04-24] MEDS: diazePAM 5 MG TABLET PO ×3 (10:00→21:05)
[2021-04-24] MEDS: Topiramate 100 MG TABLET 200 MG PO (10:00)
[2021-04-24] MEDS: hydrOXYzine HCL 25 MG TABLET PO ×3 (10:00→21:05)
[2021-04-24] MEDS: Gabapentin 400 MG CAPSULE 800 MG PO ×3 (10:00→21:05)
[2021-04-24 12:00] VITALS: BP 102/54; PULSE 76; RESP 18; TEMP 36.3; O2SAT 98
[2021-04-24 12:55] LABS: Hematocrit 33.3 % (37-47); Hemoglobin 11.1 g/dl (12.0-16.0); Mean Corpuscular HGB Conc 33.3 g/dl (31.0-35.0); Mean Corpuscular Hemoglobin 30.5 pg (27.0-33.0); Mean Corpuscular Volume 91.5 fL (80-98); Mean Platelet Volume 9.7 fL (9.4-12.3); Platelet Count 189 X10*3/uL (160-400); Red Blood Count 3.64 X10*6/uL (4.20-5.50); Red Cell Distribution Width 14.8 % (11.0-16.0); White Blood Count 3.5 X10*3/uL (4.8-10.8)
--- NOTE | 2021-04-24 12:57 | HO.PM.IMPN ---
Subjective Subjective Date of Service: 04/24/21 Interval History: no complaints Constitutional Constitutional: Reports no additional constitutional complaints Gastrointestinal Gastrointestinal: Reports no additional gastrointestinal complaints Physical Exam Vital Signs: Vital Signs: Last Vital Signs Temp 97.4 F 04/24/21 12:00 Pulse 76 04/24/21 12:00 Resp 18 04/24/21 12:00 BP 102/54 L 04/24/21 12:00 Pulse Ox 98 04/24/21 12:00 Body Mass Index 29.3 General: AO X 3, no acute distress Resp: CTA bilateral CVS: S1,S2,RRR GI: soft, non tender, non distended Neuro: motor grossly intact Psych: appropriate affect Objective Data Current Medications Generic Name Dose Route Start Last Admin Trade Name Freq PRN Reason Stop Dose Admin Acetaminophen 650 mg 04/21/21 14:29 04/21/21 16:48 Acetaminophen 325 Mg Tablet PO 650 mg Q6H PRN Administration Pain, Mild (Pain Scale 1-3) Clonidine HCl 0.1 mg 04/21/21 14:34 Clonidine Hcl 0.1 Mg Tablet PO TID PRN Opiate Withdrawal Protocol Diazepam 5 mg 04/21/21 21:00 04/24/21 10:00 Diazepam 5 Mg Tablet PO 5 mg TID EDER Administration Enoxaparin Sodium 40 mg 04/21/21 16:00 04/23/21 17:08 Enoxaparin Sodium 40 Mg/0.4 Ml Syringe SUBCUT Not Given Q24H EDER Gabapentin 800 mg 04/21/21 21:00 04/24/21 10:00 Gabapentin 400 Mg Capsule PO 800 mg TID EDER Administration Hydroxyzine HCl 25 mg 04/21/21 17:00 04/24/21 12:40 Hydroxyzine Hcl 25 Mg Tablet PO Not Given QID EDER Vancomycin HCl 1,250 mg/ 250 mls @ 166.667 mls/hr 04/23/21 14:00 04/24/21 03:15 Sodium Chloride IV Infused Q12H EDER Infusion Ketorolac Tromethamine 30 mg 04/21/21 14:35 04/22/21 14:03 Ketorolac Tromethamine 30 Mg/Ml Vial IVPUSH 04/26/21 14:34 30 mg Q6H PRN Administration Pain, Mild (Pain Scale 1-3) Lamotrigine 50 mg 04/22/21 09:00 04/24/21 10:00 Lamotrigine 25 Mg Tablet PO 50 mg DAILY EDER Administration Methadone HCl 40 mg 04/22/21 09:00 04/24/21 10:00 Methadone Hcl 1 Mg/0.1 Ml Oral.Conc PO 40 mg DAILY EDER Administration Morphine Sulfate 2 mg 04/21/21 15:00 04/24/21 12:44 Morphine Sulfate 2 Mg/Ml Cartridge IVPUSH 2 mg Q4H PRN Administration Pain, Severe (Pain Scale 7-10) Omeprazole 20 mg 04/21/21 16:30 04/24/21 06:19 Omeprazole 20 Mg Capsule. PO 20 mg BID@2123,3172 EDER Administration Ondansetron HCl 4 mg 04/21/21 14:29 Ondansetron Hcl 4 Mg/2 Ml Vial IVPUSH Q8H PRN Nausea and Vomiting Pharmacy Consult 1 each 04/21/21 14:57 Consult Rx Vancomycin Dosing MISCELLANE DAILY PRN Consult order Sodium Chloride 3 ml 04/21/21 16:00 04/24/21 09:59 0.9 % Sodium Chloride Flush 3 Ml Syringe IVFLUSH 3 ml QSHIFT EDER Administration Topiramate 200 mg 04/22/21 09:00 04/24/21 10:00 Topiramate 100 Mg Tablet PO 200 mg DAILY EDER Administration Labs CBC & Chem 7: 04/21/21 11:21 04/23/21 00:45 Labs: Laboratory Results - last 24 hr 04/23/21 00:45 Anion Gap 12 Estim Creat Clear Calc 105.2 Estimated GFR > 60 Random Glucose 114 Calcium 8.5 D Microbiology Microbiology Results: Microbiology 04/21/21 11:21 Blood Culture - Preliminary Blood - Venous No growth after 48 hours. Assessment and Plan (1) MRSA bacteremia: Status: Acute (2) Intoxication by drug: Status: Acute (3) Suicidal ideation: Status: Acute Assessment and Plan: 41-year-old female with past medical history of IV drug who initially presented to the hospital on 04/03 with abscess, patient underwent I&D on 04/05 and was being treated for cellulitis/abscess and possible bacteremia but left AMA on 04/06.? She came back 2 days later but she left again AMA on the 20 of April. Went out and report using IV drugs again, came back to the hospital with intoxication and suicidal ideation. re-admitted to the medical floor to continue MRSA bacteremia treatment. ?MRSA bacteremia Repeat blood cultures negative Continue IV vancomycin 1.25 g b.i.d. To finish treatment on 05/18/21 ID input appreciated, continue antibiotics as primarily suggested To place midline when we have a plan to discharge her Suicidal ideation Denies any suicidal ideation at this point DC sitter Psychiatry input appreciated, not suicidal anymore Opioid abuse and dependence Drug overdose Continue 40 mg methadone home dose diclofenac Atarax and clonidine as needed HCV outpatient follow up DVT prophylaxis Heparin subQ Quality Stroke Does the patient have a stroke diagnosis?: No VTE Prior VTE?: No VTE Risk Level:: Medical - moderate - high VTE Device Contraindication: N/A - Device Ordered VTE Drug Contraindication: Treatment Not Indicated
[2021-04-24 13:27] LABS: Anion Gap 11 (12-20); Blood Urea Nitrogen 10 mg/dL (9-16); Calcium 8.7 mg/dL (8.4-10.2); Carbon Dioxide 21 mmol/L (22-29); Chloride 112 mmol/L (96-108); Creatinine Clr Calc Pharmacy 101.1; Estimated Glomerular Filt Rate > 60; Glucose Random 112 mg/dL (60-115); Potassium 3.8 mmol/L (3.3-5.1); Sodium 140 mmol/L (135-145)
[2021-04-24 13:36] LABS: Vancomycin Trough 14.2 mcg/mL (10.0-20.0)
[2021-04-24] MEDS: vancomycin HCL 1,250 MG in 0.9 % Sodium Chloride 250 ML 166.6 MG IV (14:19)
[2021-04-24] MEDS: LORazepam 0.5 MG TABLET PO (14:19)
[2021-04-24 15:52] VITALS: BP 149/63; PULSE 64; RESP 18; TEMP 36.4; O2SAT 98
[2021-04-24] MEDS: Ketorolac Tromethamine 30 MG/ML VIAL IVPUSH ×2 (15:53→23:58)
--- NOTE | 2021-04-24 18:13 | PC.NURSE ---
Pt requesting to speak to MD about Methadone dose increase. States she has been on a higher dose in the past and feels this dose is not working well. Explained to patient that hospitalist does not have authorization to increase dose, but patient could request to speak to CARE team or Psych tomorrow. Patient states understanding.
[2021-04-24 19:25] VITALS: BP 138/68; PULSE 56; RESP 18; TEMP 36; O2SAT 99
[2021-04-24 23:32] VITALS: BP 127/72; PULSE 54; RESP 16; TEMP 36.4; O2SAT 98
[2021-04-25] VITALS (8 sets, daily range): BP systolic 103–121; BP diastolic 49–75; PULSE 59–74; RESP 15–18; TEMP 36–36.8; O2SAT 97–100
[2021-04-25] MEDS: vancomycin HCL 1,250 MG in 0.9 % Sodium Chloride 250 ML 166.66 MG IV ×2 (01:13→13:26)
[2021-04-25] MEDS: Morphine Sulfate 2 MG/ML CARTRIDGE IVPUSH ×6 (01:13→22:31)
[2021-04-25] MEDS: Omeprazole 20 MG CAPSULE.DR PO ×2 (05:22→15:14)
[2021-04-25] MEDS: diazePAM 5 MG TABLET PO ×3 (08:42→20:07)
[2021-04-25] MEDS: lamoTRIgine 25 MG TABLET 50 MG PO (08:42)
[2021-04-25] MEDS: Gabapentin 400 MG CAPSULE 800 MG PO ×3 (08:42→20:07)
[2021-04-25] MEDS: Topiramate 100 MG TABLET 200 MG PO (08:42)
[2021-04-25] MEDS: Ketorolac Tromethamine 30 MG/ML VIAL IVPUSH ×2 (08:43→15:14)
[2021-04-25] MEDS: 0.9 % Sodium Chloride Flush 3 ML SYRINGE IVFLUSH ×3 (08:47→20:08)
[2021-04-25] MEDS: LORazepam 1 MG TABLET PO (10:01)
--- NOTE | 2021-04-25 10:06 | HO.PM.IMPN ---
Subjective Subjective Date of Service: 04/25/21 Interval History: anxious Constitutional Constitutional: Reports no additional constitutional complaints Eyes Eyes: Reports no additional eye complaints Physical Exam Vital Signs: Vital Signs: Last Vital Signs Temp 96.8 F 04/25/21 08:00 Pulse 59 04/25/21 08:00 Resp 18 04/25/21 09:52 BP 108/60 04/25/21 08:00 Pulse Ox 98 04/25/21 08:00 Body Mass Index 29.3 General: AO X 3, no acute distress Resp: CTA bilateral CVS: S1,S2,RRR GI: soft, non tender, non distended Neuro: motor grossly intact Psych: appropriate affect Objective Data Current Medications Generic Name Dose Route Start Last Admin Trade Name Freq PRN Reason Stop Dose Admin Acetaminophen 650 mg 04/21/21 14:29 04/21/21 16:48 Acetaminophen 325 Mg Tablet PO 650 mg Q6H PRN Administration Pain, Mild (Pain Scale 1-3) Clonidine HCl 0.1 mg 04/21/21 14:34 Clonidine Hcl 0.1 Mg Tablet PO TID PRN Opiate Withdrawal Protocol Diazepam 5 mg 04/21/21 21:00 04/25/21 08:42 Diazepam 5 Mg Tablet PO 5 mg TID EDER Administration Enoxaparin Sodium 40 mg 04/21/21 16:00 04/24/21 16:09 Enoxaparin Sodium 40 Mg/0.4 Ml Syringe SUBCUT Not Given Q24H EDER Gabapentin 800 mg 04/21/21 21:00 04/25/21 08:42 Gabapentin 400 Mg Capsule PO 800 mg TID EDER Administration Hydroxyzine HCl 25 mg 04/21/21 17:00 04/25/21 08:48 Hydroxyzine Hcl 25 Mg Tablet PO Not Given QID EDER Vancomycin HCl 1,250 mg/ 250 mls @ 166.667 mls/hr 04/23/21 14:00 04/25/21 02:21 Sodium Chloride IV Infused Q12H EDER Infusion Ketorolac Tromethamine 30 mg 04/21/21 14:35 04/25/21 08:43 Ketorolac Tromethamine 30 Mg/Ml Vial IVPUSH 04/26/21 14:34 30 mg Q6H PRN Administration Pain, Mild (Pain Scale 1-3) Lamotrigine 50 mg 04/22/21 09:00 04/25/21 08:42 Lamotrigine 25 Mg Tablet PO 50 mg DAILY EDER Administration Melatonin 6 mg 04/24/21 22:50 04/24/21 23:59 Melatonin 3 Mg Tablet PO 6 mg BEDTIME PRN Administration Insomnia Methadone HCl 40 mg 04/22/21 09:00 04/25/21 08:42 Methadone Hcl 1 Mg/0.1 Ml Oral.Conc PO 40 mg DAILY EDER Administration Morphine Sulfate 2 mg 04/21/21 15:00 04/25/21 09:52 Morphine Sulfate 2 Mg/Ml Cartridge IVPUSH 2 mg Q4H PRN Administration Pain, Severe (Pain Scale 7-10) Nicotine Polacrilex 2 mg 04/25/21 01:18 Nicotine Polacrilex 2 Mg Gum BUCCAL Q2H PRN Nicotine Cravings Omeprazole 20 mg 04/21/21 16:30 04/25/21 05:22 Omeprazole 20 Mg Capsule. PO 20 mg BID@0630,3840 EDER Administration Ondansetron HCl 4 mg 04/21/21 14:29 Ondansetron Hcl 4 Mg/2 Ml Vial IVPUSH Q8H PRN Nausea and Vomiting Pharmacy Consult 1 each 04/21/21 14:57 Consult Rx Vancomycin Dosing MISCELLANE DAILY PRN Consult order Sodium Chloride 3 ml 04/21/21 16:00 04/25/21 08:47 0.9 % Sodium Chloride Flush 3 Ml Syringe IVFLUSH 3 ml QSHIFT EDER Administration Topiramate 200 mg 04/22/21 09:00 04/25/21 08:42 Topiramate 100 Mg Tablet PO 200 mg DAILY EDER Administration Zolpidem Tartrate 5 mg 04/25/21 09:28 Zolpidem Tartrate 5 Mg Tablet PO BEDTIME PRN Insomnia Labs CBC & Chem 7: 04/24/21 12:35 04/24/21 12:35 Labs: Laboratory Results - last 24 hr 04/24/21 04/24/21 04/24/21 12:35 12:35 12:35 MCV 91.5 MCH 30.5 MCHC 33.3 RDW 14.8 Plt Count 189 D MPV 9.7 Absolute Nucleated RBC 0.000 Nucleated RBC % (auto) 0.0 Anion Gap 11 L Estim Creat Clear Calc 101.1 Estimated GFR > 60 Random Glucose 112 Calcium 8.7 Vancomycin Trough 14.2 Assessment and Plan (1) MRSA bacteremia: Status: Acute (2) Intoxication by drug: Status: Acute (3) Suicidal ideation: Status: Acute Assessment and Plan: 41-year-old female with past medical history of IV drug who initially presented to the hospital on 04/03 with abscess, patient underwent I&D on 04/05 and was being treated for cellulitis/abscess and possible bacteremia but left AMA on 04/06.? She came back 2 days later but she left again AMA on the 20 of April. Went out and report using IV drugs again, came back to the hospital with intoxication and suicidal ideation. re-admitted to the medical floor to continue MRSA bacteremia treatment. ?MRSA bacteremia Repeat blood cultures negative Continue IV vancomycin 1.25 g b.i.d. To finish treatment on 05/18/[address] midline when we have a plan to discharge her, awaiting bed at SNF Suicidal ideation Denies any suicidal ideation at this point DC sitter Psychiatry input appreciated, not suicidal anymore Opioid abuse and dependence Drug overdose Continue 40 mg methadone diclofenac Atarax and clonidine as needed insomnia ambien HCV outpatient follow up DVT prophylaxis Heparin subQ Quality Stroke Does the patient have a stroke diagnosis?: No VTE Prior VTE?: No VTE Risk Level:: Medical - moderate - high VTE Device Contraindication: N/A - Device Ordered VTE Drug Contraindication: Treatment Not Indicated
--- NOTE | 2021-04-25 12:28 | MHC.CM.PN ---
CONTACT NUMBERS FOR [facility] PROVIDED TO PATIENT PER HER REQUEST. PATIENT ALSO ASKING FOR HER CLOTHES FROM SECURITY. PATIENT MADE AWARE THAT PER CONTACT WITH SECURITY (8012) PATIENT CANNOT HAVE HER CLOTHES UNTIL TIME OF DC. PATIENT VERBALIZED UNDERSTANDING. PATIENT ASKS THIS R&D ENGINEER ABOUT SPEAKING WITH RECOVERY SUPPORT RN. RN CONTACTED AND IS ON HER WAY TO THE FLOOR.
[2021-04-25] MEDS: LORazepam 0.5 MG TABLET PO ×2 (13:30→17:07)
--- NOTE | 2021-04-25 13:49 | MHC.CM.PN ---
[facility] DOES NOT HAVE A FEMALE BED TODAY. WHEN ASKED IF PATIENT WOULD BE AGREEABLE TO [facility] BED OFFER, PATIENT WILL NOT SAY YES OR NO TODAY, ONLY INFORM THIS REVENUE DIRECTOR OF THE COMPLAINTS SHE HAD ABOUT FACILITY. PATIENT NOT EASILY REDIRECTED, AND ASKED TO THINK ABOUT THIS OPTION AND MANAGER PRODUCT MANAGEMENT CAN RETURN IF PATIENT DOES DECIDE. ITA OF [facility] ([phone]) MADE AWARE OF INDECISION TODAY. FACILITY WILL CONTINUE TO FOLLOW
--- NOTE | 2021-04-25 14:00 | MHC.RECOVRN ---
T/w met with pt to provide call back number to [facility] in [place]. T/w had received voicemail requesting pt to call for an interview ([phone]). Pt would like to try to complete antibiotics at [facility] in [place] in order to be closer to potential housing. Case management made aware.
--- NOTE | 2021-04-25 14:23 | MHC.CM.PN ---
Addendum entered by Edith Muhammad 04/25/21 16:19: [facility] IS NOT WILLING TO OFFER A BED BASED ON PAST PATIENT EXPERIENCE Original Note: PER PATIENT CONVERSATION WITH RECOVERY SUPPORT RN, PATIENT IS AGREEABLE TO A REFERRAL AT [facility], NOW PLACED. PATIENT STATES THAT HER PLAN IS TO CONTINUE IV ABX IN [place] AND THEN DC TO A RECOVERY STAY LOCATION. ALTERNATE SNF REFERRALS PLACED, [facility] WILL NEED SNF DENIALS IF THEY ARE ABLE TO EVEN OFFER AND ATTEMPT AUTH.
[2021-04-25] MEDS: hydrOXYzine HCL 25 MG TABLET PO (20:07)
[2021-04-25] MEDS: Zolpidem Tartrate 5 MG TABLET PO (22:31)
[2021-04-26] VITALS (7 sets, daily range): BP systolic 99–172; BP diastolic 46–66; PULSE 64–89; RESP 16–22; TEMP 36.2–36.6; O2SAT 97–100
[2021-04-26 01:57] LABS: Vancomycin Trough 18.3 mcg/mL (10.0-20.0)
[2021-04-26] MEDS: Morphine Sulfate 2 MG/ML CARTRIDGE IVPUSH ×5 (03:11→20:47)
[2021-04-26] MEDS: vancomycin HCL 1,250 MG in 0.9 % Sodium Chloride 250 ML 166.66 MG IV ×2 (03:11→14:27)
[2021-04-26] MEDS: Ketorolac Tromethamine 30 MG/ML VIAL IVPUSH ×2 (05:05→10:32)
[2021-04-26] MEDS: Nicotine Polacrilex 2 MG GUM BUCCAL ×6 (05:05→20:47)
[2021-04-26] MEDS: Omeprazole 20 MG CAPSULE.DR PO ×2 (05:05→16:35)
[2021-04-26] MEDS: 0.9 % Sodium Chloride Flush 3 ML SYRINGE IVFLUSH ×3 (08:22→20:08)
[2021-04-26] MEDS: diazePAM 5 MG TABLET PO ×3 (08:23→20:08)
[2021-04-26] MEDS: Gabapentin 400 MG CAPSULE 800 MG PO ×3 (08:23→20:07)
[2021-04-26] MEDS: Topiramate 100 MG TABLET 200 MG PO (08:23)
[2021-04-26] MEDS: lamoTRIgine 25 MG TABLET 50 MG PO (08:23)
[2021-04-26] MEDS: hydrOXYzine HCL 25 MG TABLET PO ×4 (08:24→20:08)
--- NOTE | 2021-04-26 11:20 | HO.PM.IMPN ---
Subjective Subjective Date of Service: 04/26/21 Interval History: reports anxiety Constitutional Constitutional: Reports no additional constitutional complaints Eyes Eyes: Reports no additional eye complaints Physical Exam Vital Signs: Vital Signs: Last Vital Signs Temp 97.2 F 04/26/21 08:38 Pulse 66 04/26/21 08:38 Resp 16 04/26/21 08:38 BP 115/66 04/26/21 08:38 Pulse Ox 100 04/26/21 08:38 Body Mass Index 29.3 General: AO X 3, no acute distress Resp:? CTA bilateral CVS: S1,S2,RRR GI: soft, non tender, non distended Neuro:? motor grossly intact Psych: appropriate affect Objective Data Current Medications Generic Name Dose Route Start Last Admin Trade Name Freq PRN Reason Stop Dose Admin Acetaminophen 650 mg 04/21/21 14:29 04/21/21 16:48 Acetaminophen 325 Mg Tablet PO 650 mg Q6H PRN Administration Pain, Mild (Pain Scale 1-3) Clonidine HCl 0.1 mg 04/21/21 14:34 Clonidine Hcl 0.1 Mg Tablet PO TID PRN Opiate Withdrawal Protocol Diazepam 5 mg 04/21/21 21:00 04/26/21 08:23 Diazepam 5 Mg Tablet PO 5 mg TID EDER Administration Enoxaparin Sodium 40 mg 04/21/21 16:00 04/25/21 15:14 Enoxaparin Sodium 40 Mg/0.4 Ml Syringe SUBCUT Not Given Q24H EDER Gabapentin 800 mg 04/21/21 21:00 04/26/21 08:23 Gabapentin 400 Mg Capsule PO 800 mg TID EDER Administration Hydroxyzine HCl 25 mg 04/21/21 17:00 04/26/21 08:24 Hydroxyzine Hcl 25 Mg Tablet PO 25 mg QID EDER Administration Vancomycin HCl 1,250 mg/ 250 mls @ 166.667 mls/hr 04/23/21 14:00 04/26/21 05:05 Sodium Chloride IV Infused Q12H EDER Infusion Ketorolac Tromethamine 30 mg 04/21/21 14:35 04/26/21 10:32 Ketorolac Tromethamine 30 Mg/Ml Vial IVPUSH 04/26/21 14:34 30 mg Q6H PRN Administration Pain, Mild (Pain Scale 1-3) Lamotrigine 50 mg 04/22/21 09:00 04/26/21 08:23 Lamotrigine 25 Mg Tablet PO 50 mg DAILY EDER Administration Melatonin 6 mg 04/24/21 22:50 04/24/21 23:59 Melatonin 3 Mg Tablet PO 6 mg BEDTIME PRN Administration Insomnia Methadone HCl 40 mg 04/22/21 09:00 04/26/21 08:23 Methadone Hcl 1 Mg/0.1 Ml Oral.Conc PO 40 mg DAILY EDER Administration Morphine Sulfate 2 mg 04/21/21 15:00 04/26/21 08:23 Morphine Sulfate 2 Mg/Ml Cartridge IVPUSH 2 mg Q4H PRN Administration Pain, Severe (Pain Scale 7-10) Nicotine Polacrilex 2 mg 04/25/21 01:18 04/26/21 10:33 Nicotine Polacrilex 2 Mg Gum BUCCAL 2 mg Q2H PRN Administration Nicotine Cravings Omeprazole 20 mg 04/21/21 16:30 04/26/21 05:05 Omeprazole 20 Mg Capsule.Dr PO 20 mg BID@1515,7343 EDER Administration Ondansetron HCl 4 mg 04/21/21 14:29 Ondansetron Hcl 4 Mg/2 Ml Vial IVPUSH Q8H PRN Nausea and Vomiting Pharmacy Consult 1 each 04/21/21 14:57 Consult Rx Vancomycin Dosing MISCELLANE DAILY PRN Consult order Sodium Chloride 3 ml 04/21/21 16:00 04/26/21 08:22 0.9 % Sodium Chloride Flush 3 Ml Syringe IVFLUSH 3 ml QSHIFT EDER Administration Topiramate 200 mg 04/22/21 09:00 04/26/21 08:23 Topiramate 100 Mg Tablet PO 200 mg DAILY EDER Administration Zolpidem Tartrate 5 mg 04/25/21 09:28 04/25/21 22:31 Zolpidem Tartrate 5 Mg Tablet PO 5 mg BEDTIME PRN Administration Insomnia Labs CBC & Chem 7: 04/24/21 12:35 04/24/21 12:35 Labs: Laboratory Results - last 24 hr 04/26/21 01:03 Vancomycin Trough 18.3 Assessment and Plan (1) MRSA bacteremia: Status: Acute (2) Intoxication by drug: Status: Acute (3) Suicidal ideation: Status: Acute Assessment and Plan: 41-year-old female with past medical history of IV drug who initially presented to the hospital on 04/03 with abscess, patient underwent I&D on 04/05 and was being treated for cellulitis/abscess and possible bacteremia but left AMA on 04/06.? She came back 2 days later but she left again AMA on the 20 of April. Went out and report using IV drugs again, came back to the hospital with intoxication and suicidal ideation. re-admitted to the medical floor to continue MRSA bacteremia treatment. ?MRSA bacteremia Repeat blood cultures negative Continue IV vancomycin 1.25 g b.i.d. To finish treatment on 05/18/[address] midline when we have a plan to discharge her, awaiting bed at SNF Suicidal ideation Denies any suicidal ideation at this point DC sitter Psychiatry input appreciated, not suicidal anymore Opioid abuse and dependence Drug overdose Continue 40 mg methadone diclofenac Atarax and clonidine as needed discussed with addication medicine, continue valium 5mg tid, do not use any more breakthrough benzodiazepenes, insomnia ambien HCV outpatient follow up DVT prophylaxis Heparin subQ Quality Stroke Does the patient have a stroke diagnosis?: No VTE Prior VTE?: No VTE Risk Level:: Medical - moderate - high VTE Device Contraindication: N/A - Device Ordered VTE Drug Contraindication: Treatment Not Indicated
[2021-04-26 15:13] LABS: Creatinine Clr Calc Pharmacy 78.1; Estimated Glomerular Filt Rate > 60
--- NOTE | 2021-04-26 20:03 | PM.EVENT ---
Event Note Date of Service: 04/26/21 Event Note: Addiction follow up: Patient requesting increase in methadone. Reporting restlessness and anxiety as main sx. Labs and EKG reviewed. Plan: -additional 10mg tonight -increase to 50mg QD starting tomorrow
[2021-04-26] MEDS: Zolpidem Tartrate 5 MG TABLET PO (23:20)
[2021-04-27] VITALS (7 sets, daily range): BP systolic 94–108; BP diastolic 46–59; PULSE 58–76; RESP 16–18; TEMP 36–36.6; O2SAT 98–99
[2021-04-27] MEDS: vancomycin HCL 1,250 MG in 0.9 % Sodium Chloride 250 ML 166.66 MG IV (01:51)
[2021-04-27] MEDS: Morphine Sulfate 2 MG/ML CARTRIDGE IVPUSH ×5 (01:57→20:16)
[2021-04-27] MEDS: Omeprazole 20 MG CAPSULE.DR PO ×2 (05:25→15:27)
[2021-04-27] MEDS: Nicotine Polacrilex 2 MG GUM BUCCAL ×4 (05:25→20:30)
[2021-04-27] MEDS: hydrOXYzine HCL 25 MG TABLET PO ×3 (08:06→20:17)
[2021-04-27] MEDS: Gabapentin 400 MG CAPSULE 800 MG PO ×3 (08:06→20:17)
[2021-04-27] MEDS: Topiramate 100 MG TABLET 200 MG PO (08:06)
[2021-04-27] MEDS: cloNIDine HCL 0.1 MG TABLET PO ×3 (08:06→20:29)
[2021-04-27] MEDS: lamoTRIgine 25 MG TABLET 50 MG PO (08:07)
[2021-04-27] MEDS: 0.9 % Sodium Chloride Flush 3 ML SYRINGE IVFLUSH ×3 (08:08→20:18)
[2021-04-27] MEDS: busPIRone HCl 10 MG TABLET 30 MG PO ×2 (09:16→20:17)
[2021-04-27] MEDS: Diclofenac Sodium Delayed Rel 50 MG TABLET.DR PO ×2 (09:16→14:07)
[2021-04-27] MEDS: diazePAM 5 MG TABLET PO ×3 (09:16→20:17)
--- NOTE | 2021-04-27 09:37 | HO.PM.IMPN ---
Subjective Subjective Date of Service: 04/27/21 Interval History: anxious Constitutional Constitutional: Reports no additional constitutional complaints Eyes Eyes: Reports no additional eye complaints Physical Exam Vital Signs: Vital Signs: Last Vital Signs Temp 97.2 F 04/27/21 08:00 Pulse 59 04/27/21 08:00 Resp 18 04/27/21 08:00 BP 107/54 L 04/27/21 08:00 Pulse Ox 99 04/27/21 08:00 Body Mass Index 29.3 General: AO X 3, no acute distress Resp:? CTA bilateral CVS: S1,S2,RRR GI: soft, non tender, non distended Neuro:? motor grossly intact Psych: appropriate affect Objective Data Current Medications Generic Name Dose Route Start Last Admin Trade Name Freq PRN Reason Stop Dose Admin Acetaminophen 650 mg 04/21/21 14:29 04/21/21 16:48 Acetaminophen 325 Mg Tablet PO 650 mg Q6H PRN Administration Pain, Mild (Pain Scale 1-3) Buspirone HCl 30 mg 04/27/21 09:30 04/27/21 09:16 Buspirone Hcl 10 Mg Tablet PO 30 mg BID EDER Administration Clonidine HCl 0.1 mg 04/21/21 14:34 04/27/21 08:06 Clonidine Hcl 0.1 Mg Tablet PO 0.1 mg TID PRN Administration Opiate Withdrawal Protocol Diazepam 5 mg 04/27/21 09:30 04/27/21 09:16 Diazepam 5 Mg Tablet PO 5 mg TID EDER Administration Diclofenac Sodium 50 mg 04/27/21 09:03 04/27/21 09:16 Diclofenac Sodium Delayed Rel 50 Mg Tablet.Dr PO 50 mg TID PRN Administration Pain Enoxaparin Sodium 40 mg 04/21/21 16:00 04/26/21 16:15 Enoxaparin Sodium 40 Mg/0.4 Ml Syringe SUBCUT Not Given Q24H EDER Gabapentin 800 mg 04/21/21 21:00 04/27/21 08:06 Gabapentin 400 Mg Capsule PO 800 mg TID EDER Administration Hydroxyzine HCl 25 mg 04/21/21 17:00 04/27/21 08:06 Hydroxyzine Hcl 25 Mg Tablet PO 25 mg QID EDER Administration Vancomycin HCl 1,250 mg/ 250 mls @ 166.667 mls/hr 04/23/21 14:00 04/27/21 03:33 Sodium Chloride IV Infused Q12H EDER Infusion Lamotrigine 50 mg 04/22/21 09:00 04/27/21 08:07 Lamotrigine 25 Mg Tablet PO 50 mg DAILY EDER Administration Melatonin 6 mg 04/24/21 22:50 04/24/21 23:59 Melatonin 3 Mg Tablet PO 6 mg BEDTIME PRN Administration Insomnia Methadone HCl 50 mg 04/27/21 09:00 04/27/21 08:07 Methadone Hcl 1 Mg/0.1 Ml Oral.Conc PO 50 mg DAILY EDER Administration Morphine Sulfate 2 mg 04/26/21 15:16 04/27/21 05:55 Morphine Sulfate 2 Mg/Ml Cartridge IVPUSH 2 mg Q4H PRN Administration pain Nicotine Polacrilex 2 mg 04/25/21 01:18 04/27/21 08:06 Nicotine Polacrilex 2 Mg Gum BUCCAL 2 mg Q2H PRN Administration Nicotine Cravings Omeprazole 20 mg 04/21/21 16:30 04/27/21 05:25 Omeprazole 20 Mg Capsule. PO 20 mg BID@0630,9960 EDER Administration Ondansetron HCl 4 mg 04/21/21 14:29 Ondansetron Hcl 4 Mg/2 Ml Vial IVPUSH Q8H PRN Nausea and Vomiting Pharmacy Consult 1 each 04/21/21 14:57 Consult Rx Vancomycin Dosing MISCELLANE DAILY PRN Consult order Sodium Chloride 3 ml 04/21/21 16:00 04/27/21 08:08 0.9 % Sodium Chloride Flush 3 Ml Syringe IVFLUSH 3 ml QSHIFT EDER Administration Topiramate 200 mg 04/22/21 09:00 04/27/21 08:06 Topiramate 100 Mg Tablet PO 200 mg DAILY EDER Administration Zolpidem Tartrate 5 mg 04/25/21 09:28 04/26/21 23:20 Zolpidem Tartrate 5 Mg Tablet PO 5 mg BEDTIME PRN Administration Insomnia Labs CBC & Chem 7: 04/24/21 12:35 04/26/21 14:39 Labs: Laboratory Results - last 24 hr 04/26/21 14:39 Estim Creat Clear Calc 78.1 Estimated GFR > 60 Microbiology Microbiology Results: Microbiology 04/21/21 11:21 Blood Culture - Final Blood - Venous No growth after 5 days. Assessment and Plan (1) MRSA bacteremia: Status: Acute (2) Intoxication by drug: Status: Acute (3) Suicidal ideation: Status: Acute Assessment and Plan: 41-year-old female with past medical history of IV drug who initially presented to the hospital on 04/03 with abscess, patient underwent I&D on 04/05 and was being treated for cellulitis/abscess and possible bacteremia but left AMA on 04/06.? She came back 2 days later but she left again AMA on the 20 of April. Went out and report using IV drugs again, came back to the hospital with intoxication and suicidal ideation. re-admitted to the medical floor to continue MRSA bacteremia treatment. ?MRSA bacteremia Repeat blood cultures negative Continue IV vancomycin 1.25 g b.i.d. To finish treatment on 05/18/[address] midline when we have a plan to discharge her, awaiting bed at SNF Suicidal ideation Denies any suicidal ideation at this point DC sitter Psychiatry input appreciated, not suicidal anymore Opioid abuse and dependence Drug overdose Continue 40 mg methadone diclofenac Atarax and clonidine as needed discussed with addication medicine, continue valium 5mg tid, do not use any more breakthrough benzodiazepenes, mood disorder restart buspar insomnia ambien HCV outpatient follow up DVT prophylaxis Heparin subQ Quality Stroke Does the patient have a stroke diagnosis?: No VTE Prior VTE?: No VTE Risk Level:: Medical - moderate - high VTE Device Contraindication: N/A - Device Ordered VTE Drug Contraindication: Treatment Not Indicated
--- NOTE | 2021-04-27 11:23 | MHC.CM.PN ---
REQUEST FOR A BED SENT TO [facility]. OF THIS NOTE, NO JENNY AVAILABLE. PER PATIENT REQUEST, CALL PLACED TO [facility] ([facility]) @ [phone]. PATIENT ASKED THAT THIS [employer]AT [employer]ER INQUIRE ABOUT A BED OFFER ONCE PATIENT IS DISCHARGED. (PATIENT HAS COMPLETED THE APPLICATION PROCESS) HOSPITAL CONTACT NUMBER AND PATIENT'S ROOM NUMBER GIVEN IN THE EVENT THAT [facility] STAFF NEEDS TO CONTACT PATIENT. THIS INFORMATION RELAYED TO PATIENT.
--- NOTE | 2021-04-27 11:32 | MHC.CM.PN ---
PATIENT IS AWARE THAT THERE ARE NO CURRENT BED OFFERS, AND THAT [facility] IS STILL FOLLOWING FOR AN OPEN FEMALE BED OFFER. REFERRALS TO [facility] WITH PATIENT PERMISSION. PROXIMITY TO [facility] EXPLAINED AND PATIENT AGREES TO THESE LOCATIONS BEING REFERRED TO
[2021-04-27 13:32] LABS: Vancomycin Trough 23.5 mcg/mL (10.0-20.0)
--- NOTE | 2021-04-27 17:36 | MHC.RECOVSUP ---
Recovery Support note: Patient is a 41 year old Cymro speaking female who presented to [facility] ED due to an arm infection, reporting a recent intentional overdose. Patient was medically admitted for treatment of the infection. This editorial writer met with patient to see how she is doing and to offer support. Patient expressed frustration regarding her belongings being secured in decon. This editorial writer educated patient on the hospital policy regarding this matter and offered to supply her with clothes from the donation bin. Patient also expressed frustration regarding her medication being changed, stating that she found the Ativan to be very helpful and she is experiencing severe anxiety now without it. Patient is hopeful that she will be get placed in a facility that can continue her antibiotics. Patient states she plans to go to [facility] in [place] once she is healthy and that she has already completed an intake with this program. Patient continues to deny SI or any thoughts to harm herself. Patient is future oriented and advocates for her needs. This editorial writer returned to see patient later on in the day and she appeared to be sleeping however awoke when this editorial writer entered the room. Patient reports a significant reduction in anxiety and reports the current medications are helpful. This editorial writer will follow up with patient tomorrow. Discussed case with patient's CM.
[2021-04-27] MEDS: vancomycin HCL 1,000 MG in 0.9 % Sodium Chloride 250 ML 270 MG IV (20:18)
[2021-04-27] MEDS: Zolpidem Tartrate 5 MG TABLET PO (20:30)
[2021-04-28] VITALS (7 sets, daily range): BP systolic 99–160; BP diastolic 48–94; PULSE 66–75; RESP 14–18; TEMP 36.1–36.3; O2SAT 97–99
[2021-04-28] MEDS: Omeprazole 20 MG CAPSULE.DR PO ×2 (05:25→15:54)
[2021-04-28] MEDS: Morphine Sulfate 2 MG/ML CARTRIDGE IVPUSH ×5 (05:30→21:40)
[2021-04-28] MEDS: Nicotine Polacrilex 2 MG GUM BUCCAL ×5 (05:30→20:34)
[2021-04-28 08:20] LABS: Creatinine Clr Calc Pharmacy 77.4; Estimated Glomerular Filt Rate > 60
--- NOTE | 2021-04-28 09:02 | P.PNIM_ITS ---
Subjective Subjective Date of Service: 04/28/21 Interval History: back pain Constitutional Constitutional: Reports no additional constitutional complaints Eyes Eyes: Reports no additional eye complaints Physical Exam Vital Signs: Vital Signs: Last Vital Signs Temp 96.9 F 04/28/21 08:00 Pulse 75 04/28/21 08:00 Resp 18 04/28/21 08:00 BP 99/60 04/28/21 08:00 Pulse Ox 99 04/28/21 08:00 Body Mass Index 29.3 General: AO X 3, no acute distress Resp: CTA bilateral CVS: S1,S2,RRR GI: soft, non tender, non distended Neuro: motor grossly intact Psych: appropriate affect Objective Data Current Medications Generic Name Dose Route Start Last Admin Trade Name Freq PRN Reason Stop Dose Admin Acetaminophen 650 mg 04/21/21 14:29 04/21/21 16:48 Acetaminophen 325 Mg Tablet PO 650 mg Q6H PRN Administration Pain, Mild (Pain Scale 1-3) Buspirone HCl 30 mg 04/27/21 09:30 04/27/21 20:17 Buspirone Hcl 10 Mg Tablet PO 30 mg BID EDER Administration Clonidine HCl 0.1 mg 04/21/21 14:34 04/27/21 20:29 Clonidine Hcl 0.1 Mg Tablet PO 0.1 mg TID PRN Administration Opiate Withdrawal Protocol Diazepam 5 mg 04/27/21 09:30 04/27/21 20:17 Diazepam 5 Mg Tablet PO 5 mg TID EDER Administration Diclofenac Sodium 50 mg 04/27/21 09:03 04/27/21 14:07 Diclofenac Sodium Delayed Rel 50 Mg Tablet.Dr PO 50 mg TID PRN Administration Pain Enoxaparin Sodium 40 mg 04/21/21 16:00 04/27/21 15:30 Enoxaparin Sodium 40 Mg/0.4 Ml Syringe SUBCUT Not Given Q24H EDER Gabapentin 800 mg 04/21/21 21:00 04/27/21 20:17 Gabapentin 400 Mg Capsule PO 800 mg TID EDER Administration Hydroxyzine HCl 25 mg 04/21/21 17:00 04/27/21 20:17 Hydroxyzine Hcl 25 Mg Tablet PO 25 mg QID EDER Administration Vancomycin HCl 1,000 mg/ 270 mls @ 270 mls/hr 04/27/21 21:00 04/27/21 21:30 Sodium Chloride IV Infused Q12H EDER Infusion Lamotrigine 50 mg 04/22/21 09:00 04/27/21 08:07 Lamotrigine 25 Mg Tablet PO 50 mg DAILY EDER Administration Melatonin 6 mg 04/24/21 22:50 04/24/21 23:59 Melatonin 3 Mg Tablet PO 6 mg BEDTIME PRN Administration Insomnia Methadone HCl 50 mg 04/27/21 09:00 04/27/21 08:07 Methadone Hcl 1 Mg/0.1 Ml Oral.Conc PO 50 mg DAILY EDER Administration Morphine Sulfate 2 mg 04/26/21 15:16 04/28/21 05:30 Morphine Sulfate 2 Mg/Ml Cartridge IVPUSH 2 mg Q4H PRN Administration pain Nicotine Polacrilex 2 mg 04/25/21 01:18 04/28/21 05:30 Nicotine Polacrilex 2 Mg Gum BUCCAL 2 mg Q2H PRN Administration Nicotine Cravings Omeprazole 20 mg 04/21/21 16:30 04/28/21 05:25 Omeprazole 20 Mg Capsule. PO 20 mg BID@0630,4780 EDER Administration Ondansetron HCl 4 mg 04/21/21 14:29 Ondansetron Hcl 4 Mg/2 Ml Vial IVPUSH Q8H PRN Nausea and Vomiting Pharmacy Consult 1 each 04/21/21 14:57 Consult Rx Vancomycin Dosing MISCELLANE DAILY PRN Consult order Sodium Chloride 3 ml 04/21/21 16:00 04/27/21 20:18 0.9 % Sodium Chloride Flush 3 Ml Syringe IVFLUSH 3 ml QSHIFT EDER Administration Topiramate 200 mg 04/22/21 09:00 04/27/21 08:06 Topiramate 100 Mg Tablet PO 200 mg DAILY EDER Administration Zolpidem Tartrate 5 mg 04/25/21 09:28 04/27/21 20:30 Zolpidem Tartrate 5 Mg Tablet PO 5 mg BEDTIME PRN Administration Insomnia Labs CBC & Chem 7: 04/24/21 12:35 04/28/21 07:48 Labs: Laboratory Results - last 24 hr 04/27/21 04/28/21 12:44 07:48 Estim Creat Clear Calc 77.4 Estimated GFR > 60 Vancomycin Trough 23.5 H Assessment and Plan (1) MRSA bacteremia: Status: Acute (2) Intoxication by drug: Status: Acute (3) Suicidal ideation: Status: Acute Assessment and Plan: 41-year-old female with past medical history of IV drug who initially presented to the hospital on 04/03 with abscess, patient underwent I&D on 04/05 and was being treated for cellulitis/abscess and possible bacteremia but left AMA on 04/06.? She came back 2 days later but she left again AMA on the 20 of April. Went out and report using IV drugs again, came back to the hospital with intoxication and suicidal ideation. re-admitted to the medical floor to jay kulkarni MRSA bacteremia treatment. ?MRSA bacteremia Repeat blood cultures negative Continue IV vancomycin 1.25 g b.i.d. To finish treatment on 05/18/[address] midline when we have a plan to discharge her, awaiting bed at SNF monitor labs weekly Suicidal ideation Denies any suicidal ideation at this point DC sitter Psychiatry input appreciated, not suicidal anymore Opioid abuse and dependence Drug overdose Continue 50 mg methadone diclofenac Atarax and clonidine as needed discussed with addication medicine, continue valium 5mg tid, do not use any more breakthrough benzodiazepenes, mood disorder restarted buspar insomnia ambien HCV outpatient follow up DVT prophylaxis Heparin subQ Quality Stroke Does the patient have a stroke diagnosis?: No VTE Prior VTE?: No VTE Risk Level:: Medical - moderate - high VTE Device Contraindication: N/A - Device Ordered VTE Drug Contraindication: Treatment Not Indicated
[2021-04-28] MEDS: Gabapentin 400 MG CAPSULE 800 MG PO ×3 (09:20→20:29)
[2021-04-28] MEDS: diazePAM 5 MG TABLET PO ×3 (09:20→20:30)
[2021-04-28] MEDS: lamoTRIgine 25 MG TABLET 50 MG PO (09:20)
[2021-04-28] MEDS: Topiramate 100 MG TABLET 200 MG PO (09:20)
[2021-04-28] MEDS: hydrOXYzine HCL 25 MG TABLET PO ×4 (09:20→20:30)
[2021-04-28] MEDS: busPIRone HCl 10 MG TABLET 30 MG PO ×2 (09:20→20:29)
[2021-04-28] MEDS: vancomycin HCL 1,000 MG in 0.9 % Sodium Chloride 250 ML 270 MG IV ×2 (10:00→21:34)
[2021-04-28] MEDS: Diclofenac Sodium Delayed Rel 50 MG TABLET.DR PO (10:03)
[2021-04-28] MEDS: 0.9 % Sodium Chloride Flush 3 ML SYRINGE IVFLUSH ×4 (10:03→21:34)
[2021-04-28] MEDS: cloNIDine HCL 0.1 MG TABLET PO ×2 (10:04→15:54)
[2021-04-28 21:02] LABS: Vancomycin Trough 15.3 mcg/mL (10.0-20.0)
[2021-04-28] MEDS: Zolpidem Tartrate 5 MG TABLET PO (21:34)
[2021-04-29] VITALS (8 sets, daily range): BP systolic 100–142; BP diastolic 47–89; PULSE 58–70; RESP 16–19; TEMP 36–36.8; O2SAT 96–100
[2021-04-29] MEDS: Morphine Sulfate 2 MG/ML CARTRIDGE IVPUSH ×4 (04:34→20:06)
[2021-04-29] MEDS: Nicotine Polacrilex 2 MG GUM BUCCAL ×5 (04:34→20:06)
[2021-04-29] MEDS: Omeprazole 20 MG CAPSULE.DR PO ×2 (04:53→16:02)
[2021-04-29] MEDS: cloNIDine HCL 0.1 MG TABLET PO ×3 (04:53→21:14)
[2021-04-29 08:05] LABS: Hematocrit 35.2 % (37-47); Hemoglobin 11.4 g/dl (12.0-16.0); Mean Corpuscular HGB Conc 32.4 g/dl (31.0-35.0); Mean Corpuscular Hemoglobin 30.3 pg (27.0-33.0); Mean Corpuscular Volume 93.6 fL (80-98); Mean Platelet Volume 9.9 fL (9.4-12.3); Platelet Count 157 X10*3/uL (160-400); Red Blood Count 3.76 X10*6/uL (4.20-5.50); Red Cell Distribution Width 14.6 % (11.0-16.0); White Blood Count 3.9 X10*3/uL (4.8-10.8)
[2021-04-29 08:32] LABS: Anion Gap 11 (12-20); Blood Urea Nitrogen 17 mg/dL (9-16); Carbon Dioxide 22 mmol/L (22-29); Chloride 112 mmol/L (96-108); Creatinine Clr Calc Pharmacy 90.2; Estimated Glomerular Filt Rate > 60; Glucose Fasting 121 mg/dL (60-99); Potassium 4.3 mmol/L (3.3-5.1); Sodium 141 mmol/L (135-145)
[2021-04-29] MEDS: hydrOXYzine HCL 25 MG TABLET PO ×4 (09:16→20:06)
[2021-04-29] MEDS: busPIRone HCl 10 MG TABLET 30 MG PO ×2 (09:16→20:06)
[2021-04-29] MEDS: Topiramate 100 MG TABLET 200 MG PO (09:16)
[2021-04-29] MEDS: lamoTRIgine 25 MG TABLET 50 MG PO (09:16)
[2021-04-29] MEDS: Gabapentin 400 MG CAPSULE 800 MG PO ×3 (09:16→20:05)
[2021-04-29] MEDS: vancomycin HCL 1,000 MG in 0.9 % Sodium Chloride 250 ML 270 MG IV ×2 (09:17→20:07)
[2021-04-29] MEDS: diazePAM 5 MG TABLET PO ×3 (09:17→20:05)
--- NOTE | 2021-04-29 09:47 | HO.PM.IMPN ---
Subjective Subjective Date of Service: 04/29/21 Interval History: iv infiltrated Constitutional Constitutional: Reports no additional constitutional complaints Eyes Eyes: Reports no additional eye complaints Physical Exam Vital Signs: Vital Signs: Last Vital Signs Temp 97.6 F 04/29/21 08:00 Pulse 63 04/29/21 08:00 Resp 18 04/29/21 08:00 BP 105/60 04/29/21 08:00 Pulse Ox 97 04/28/21 23:47 Body Mass Index 29.3 General: AO X 3, no acute distress Resp: CTA bilateral CVS: S1,S2,RRR GI: soft, non tender, non distended Neuro: motor grossly intact Psych: appropriate affect Objective Data Current Medications Generic Name Dose Route Start Last Admin Trade Name Freq PRN Reason Stop Dose Admin Acetaminophen 650 mg 04/21/21 14:29 04/21/21 16:48 Acetaminophen 325 Mg Tablet PO 650 mg Q6H PRN Administration Pain, Mild (Pain Scale 1-3) Buspirone HCl 30 mg 04/27/21 09:30 04/29/21 09:16 Buspirone Hcl 10 Mg Tablet PO 30 mg BID EDER Administration Clonidine HCl 0.1 mg 04/21/21 14:34 04/29/21 04:53 Clonidine Hcl 0.1 Mg Tablet PO 0.1 mg TID PRN Administration Opiate Withdrawal Protocol Diazepam 5 mg 04/27/21 09:30 04/29/21 09:17 Diazepam 5 Mg Tablet PO 5 mg TID EDER Administration Diclofenac Sodium 50 mg 04/27/21 09:03 04/28/21 10:03 Diclofenac Sodium Delayed Rel 50 Mg Tablet.Dr PO 50 mg TID PRN Administration Pain Enoxaparin Sodium 40 mg 04/21/21 16:00 04/28/21 15:11 Enoxaparin Sodium 40 Mg/0.4 Ml Syringe SUBCUT Not Given Q24H EDER Gabapentin 800 mg 04/21/21 21:00 04/29/21 09:16 Gabapentin 400 Mg Capsule PO 800 mg TID EDER Administration Hydroxyzine HCl 25 mg 04/21/21 17:00 04/29/21 09:16 Hydroxyzine Hcl 25 Mg Tablet PO 25 mg QID EDER Administration Vancomycin HCl 1,000 mg/ 270 mls @ 270 mls/hr 04/27/21 21:00 04/29/21 09:38 Sodium Chloride IV 0 mls/hr Q12H EDER Infusion Lamotrigine 50 mg 04/22/21 09:00 04/29/21 09:16 Lamotrigine 25 Mg Tablet PO 50 mg DAILY EDER Administration Melatonin 6 mg 04/24/21 22:50 04/24/21 23:59 Melatonin 3 Mg Tablet PO 6 mg BEDTIME PRN Administration Insomnia Methadone HCl 50 mg 04/27/21 09:00 04/29/21 09:36 Methadone Hcl 1 Mg/0.1 Ml Oral.Conc PO 50 mg DAILY EDER Administration Morphine Sulfate 2 mg 04/26/21 15:16 04/29/21 09:15 Morphine Sulfate 2 Mg/Ml Cartridge IVPUSH 2 mg Q4H PRN Administration pain Nicotine Polacrilex 2 mg 04/25/21 01:18 04/29/21 09:16 Nicotine Polacrilex 2 Mg Gum BUCCAL 2 mg Q2H PRN Administration Nicotine Cravings Omeprazole 20 mg 04/21/21 16:30 04/29/21 04:53 Omeprazole 20 Mg Capsule. PO 20 mg BID@0630,1630 EDER Administration Ondansetron HCl 4 mg 04/21/21 14:29 Ondansetron Hcl 4 Mg/2 Ml Vial IVPUSH Q8H PRN Nausea and Vomiting Sodium Chloride 3 ml 04/21/21 16:00 04/28/21 21:34 0.9 % Sodium Chloride Flush 3 Ml Syringe IVFLUSH 3 ml QSHIFT EDER Administration Topiramate 200 mg 04/22/21 09:00 04/29/21 09:16 Topiramate 100 Mg Tablet PO 200 mg DAILY EDER Administration Zolpidem Tartrate 5 mg 04/25/21 09:28 04/28/21 21:34 Zolpidem Tartrate 5 Mg Tablet PO 5 mg BEDTIME PRN Administration Insomnia Labs CBC & Chem 7: 04/29/21 07:49 04/29/21 07:49 Labs: Laboratory Results - last 24 hr 04/28/21 04/29/21 04/29/21 20:19 07:49 07:49 MCV 93.6 MCH 30.3 MCHC 32.4 RDW 14.6 Plt Count 157 L MPV 9.9 Absolute Nucleated RBC 0.000 Nucleated RBC % (auto) 0.0 Anion Gap 11 L Estim Creat Clear Calc 90.2 Estimated GFR > 60 Fasting Glucose 121 H Calcium 9.0 Vancomycin Trough 15.3 Assessment and Plan (1) MRSA bacteremia: Status: Acute (2) Intoxication by drug: Status: Acute (3) Suicidal ideation: Status: Acute Assessment and Plan: 41-year-old female with past medical history of IV drug who initially presented to the hospital on 04/03 with abscess, patient underwent I&D on 04/05 and was being treated for cellulitis/abscess and possible bacteremia but left AMA on 04/06.? She came back 2 days later but she left again AMA on the 20 of April. Went out and report using IV drugs again, came back to the hospital with intoxication and suicidal ideation. re-admitted to the medical floor to continue MRSA bacteremia treatment. ?MRSA bacteremia Repeat blood cultures negative Continue IV vancomycin 1.25 g b.i.d. To finish treatment on 05/18/21 will need midline for access monitor labs weekly Suicidal ideation Denies any suicidal ideation at this point Psychiatry input appreciated, not suicidal anymore Opioid abuse and dependence Drug overdose Continue 50 mg methadone diclofenac Atarax and clonidine as needed discussed with addication medicine, continue valium 5mg tid, do not use any more breakthrough benzodiazepenes, mood disorder restarted buspar insomnia ambien HCV outpatient follow up DVT prophylaxis Heparin subQ Quality Stroke Does the patient have a stroke diagnosis?: No VTE Prior VTE?: No VTE Risk Level:: Medical - moderate - high VTE Device Contraindication: N/A - Device Ordered VTE Drug Contraindication: Treatment Not Indicated
[2021-04-29] MEDS: Diclofenac Sodium Delayed Rel 50 MG TABLET.DR PO ×2 (10:40→21:13)
[2021-04-29] MEDS: oxyCODONE HCl Immed Release 5 MG TABLET PO (12:58)
--- NOTE | 2021-04-29 13:47 | MHC.CM.PN ---
THIS SMELTER CHARGER LEFT ANOTHER VOICEMAIL MESSAGE FOR ISABELL SOTO ([phone]) REQUEST LEFT FOR STAFF TO CALL THIS SMELTER CHARGER BACK, OR TO CALL PATIENT AT [facility] PHONE NUMBER, AND ROOM CHANGED TO MED/SURG. ROOM 360. [facility] UPDATED WITH PROGRESS NOTE FROM TODAY, STILL NOT OFFERING A BED OF THIS NOTE. PATIENT AWARE.
--- NOTE | 2021-04-29 15:41 | PC.NURSE ---
Skin assessment completed today. Surgical abscess on right forearm is healed. Patient still applying Triad and foam for protection. No other skin issues noted.
--- NOTE | 2021-04-29 16:01 | HO.MIDLINE ---
PICC Line Insertion MIDLINE INSERTION Diagnosis: CELLULITIS/ABSCESS Indication: SENIOR LIVING IV ANTIBIOTICS/NEEDS IV ACCESS Pertinent Labs: REVIEWED Technique: Using sterile technique including cap and mask, glove and drape, the LEFT arm was prepped and draped in the usual sterile fashion of full barrier technique with CHG. Using ultrasound guidance, BASILIC vein access was obtained IN SINGLE ATTEMPT BY THIS RN. A SINGLE LUMEN, NON-PASV, (20G X 8CM) MIDLINE was positioned. The procedure was performed in -360. Ultrasound was used to document vein patency and for needle entry. A formal ultrasound picture was recorded. Vascular Tow Car Driver has released the line for use and it is currently dressed with a StatLock, Tegaderm, and CHG disc. Verification has been performed for blood return and line patency. Arm Circumference: 38.5 CM Equipment: Sunfire POWERGLIDE PRO Catheter Type: SINGLE LUMEN, NON-PASV, (20G X 8CM) Lot #: [id number]
[2021-04-29] MEDS: 0.9 % Sodium Chloride Flush 3 ML SYRINGE IVFLUSH (16:02)
[2021-04-29] MEDS: Heparin Sodium,Porcine Flush 50 UNITS, 0.9 % Sodium Chloride Flush 5 ML IVFLUSH (20:06)
[2021-04-29] MEDS: Zolpidem Tartrate 5 MG TABLET PO (21:13)
[2021-04-30] MEDS: Morphine Sulfate 2 MG/ML CARTRIDGE IVPUSH ×5 (03:12→22:22)
[2021-04-30] MEDS: Acetaminophen 325 MG TABLET 650 MG PO (03:16)
[2021-04-30] MEDS: Nicotine Polacrilex 2 MG GUM BUCCAL ×6 (03:16→20:36)
[2021-04-30] MEDS: Omeprazole 20 MG CAPSULE.DR PO ×2 (06:26→17:07)
[2021-04-30 08:00] VITALS: BP 119/68; PULSE 63; RESP 18; TEMP 36.3; O2SAT 100
--- NOTE | 2021-04-30 09:13 | HO.PM.IMPN ---
Subjective Subjective Date of Service: 04/30/21 Interval History: no complaints Constitutional Constitutional: Reports no additional constitutional complaints Eyes Eyes: Reports no additional eye complaints Physical Exam Vital Signs: Vital Signs: Last Vital Signs Temp 97.3 F 04/30/21 08:00 Pulse 63 04/30/21 08:00 Resp 18 04/30/21 08:00 BP 119/68 04/30/21 08:00 Pulse Ox 100 04/30/21 08:00 Body Mass Index 29.3 General: AO X 3, no acute distress Resp: CTA bilateral CVS: S1,S2,RRR GI: soft, non tender, non distended Neuro: motor grossly intact Psych: appropriate affect Objective Data Current Medications Generic Name Dose Route Start Last Admin Trade Name Freq PRN Reason Stop Dose Admin Acetaminophen 650 mg 04/21/21 14:29 04/30/21 03:16 Acetaminophen 325 Mg Tablet PO 650 mg Q6H PRN Administration Pain, Mild (Pain Scale 1-3) Buspirone HCl 30 mg 04/27/21 09:30 04/29/21 20:06 Buspirone Hcl 10 Mg Tablet PO 30 mg BID EDER Administration Clonidine HCl 0.1 mg 04/21/21 14:34 04/29/21 21:14 Clonidine Hcl 0.1 Mg Tablet PO 0.1 mg TID PRN Administration Opiate Withdrawal Protocol Heparin Sodium (Porcine) 50 0 units 04/29/21 21:00 04/29/21 20:06 units/ Sodium Chloride 5 ml IVFLUSH 50 unit TID EDER Administration Diazepam 5 mg 04/27/21 09:30 04/29/21 20:05 Diazepam 5 Mg Tablet PO 5 mg TID EDER Administration Diclofenac Sodium 50 mg 04/27/21 09:03 04/29/21 21:13 Diclofenac Sodium Delayed Rel 50 Mg Tablet.Dr PO 50 mg TID PRN Administration Pain Enoxaparin Sodium 40 mg 04/21/21 16:00 04/29/21 15:22 Enoxaparin Sodium 40 Mg/0.4 Ml Syringe SUBCUT Not Given Q24H EDER Gabapentin 800 mg 04/21/21 21:00 04/29/21 20:05 Gabapentin 400 Mg Capsule PO 800 mg TID EDER Administration Hydroxyzine HCl 25 mg 04/21/21 17:00 04/29/21 20:06 Hydroxyzine Hcl 25 Mg Tablet PO 25 mg QID EDER Administration Vancomycin HCl 1,000 mg/ 270 mls @ 270 mls/hr 04/27/21 21:00 04/29/21 21:14 Sodium Chloride IV Infused Q12H EDER Infusion Lactic Acid 1 appl 04/29/21 09:46 Ammonium Lactate 12 % Cream 140 Gm Tube TOPICAL BID PRN Dry Skin Protocol Lamotrigine 50 mg 04/22/21 09:00 04/29/21 09:16 Lamotrigine 25 Mg Tablet PO 50 mg DAILY EDER Administration Melatonin 6 mg 04/24/21 22:50 04/24/21 23:59 Melatonin 3 Mg Tablet PO 6 mg BEDTIME PRN Administration Insomnia Methadone HCl 50 mg 04/27/21 09:00 04/29/21 09:36 Methadone Hcl 1 Mg/0.1 Ml Oral.Conc PO 50 mg DAILY EDER Administration Morphine Sulfate 2 mg 04/26/21 15:16 04/30/21 03:12 Morphine Sulfate 2 Mg/Ml Cartridge IVPUSH 2 mg Q4H PRN Administration pain Nicotine Polacrilex 2 mg 04/25/21 01:18 04/30/21 06:27 Nicotine Polacrilex 2 Mg Gum BUCCAL 2 mg Q2H PRN Administration Nicotine Cravings Omeprazole 20 mg 04/21/21 16:30 04/30/21 06:26 Omeprazole 20 Mg Capsule. PO 20 mg BID@0630,1630 EDER Administration Ondansetron HCl 4 mg 04/21/21 14:29 Ondansetron Hcl 4 Mg/2 Ml Vial IVPUSH Q8H PRN Nausea and Vomiting Sodium Chloride 3 ml 04/21/21 16:00 04/29/21 23:26 0.9 % Sodium Chloride Flush 3 Ml Syringe IVFLUSH Not Given QSHIFT [facility] Topiramate 200 mg 04/22/21 09:00 04/29/21 09:16 Topiramate 100 Mg Tablet PO 200 mg DAILY EDER Administration Zolpidem Tartrate 5 mg 04/25/21 09:28 04/29/21 21:13 Zolpidem Tartrate 5 Mg Tablet PO 5 mg BEDTIME PRN Administration Insomnia Labs CBC & Chem 7: 04/29/21 07:49 04/29/21 07:49 Assessment and Plan (1) MRSA bacteremia: Status: Acute (2) Intoxication by drug: Status: Acute (3) Suicidal ideation: Status: Acute Assessment and Plan: 41-year-old female with past medical history of IV drug who initially presented to the hospital on 04/03 with abscess, patient underwent I&D on 04/05 and was being treated for cellulitis/abscess and possible bacteremia but left AMA on 04/06.? She came back 2 days later but she left again AMA on the 20 of April. Went out and report using IV drugs again, came back to the hospital with intoxication and suicidal ideation. re-admitted to the medical floor to continue MRSA bacteremia treatment. ?MRSA bacteremia Repeat blood cultures negative Continue IV vancomycin 1.25 g b.i.d. To finish treatment on 05/18/21 midline placed 04/29/21 monitor labs weekly Suicidal ideation Denies any suicidal ideation at this point Psychiatry input appreciated, not suicidal anymore Opioid abuse and dependence Drug overdose Continue 50 mg methadone diclofenac Atarax and clonidine as needed discussed with addiction medicine, continue valium 5mg tid, do not use any more breakthrough benzodiazepenes, mood disorder restarted buspar insomnia ambien HCV outpatient follow up DVT prophylaxis Heparin subQ Quality Stroke Does the patient have a stroke diagnosis?: No VTE Prior VTE?: No VTE Risk Level:: Medical - moderate - high VTE Device Contraindication: N/A - Device Ordered VTE Drug Contraindication: Treatment Not Indicated
[2021-04-30 09:20] LABS: Vancomycin Trough 16.6 mcg/mL (10.0-20.0)
[2021-04-30] MEDS: Heparin Sodium,Porcine Flush 50 UNITS, 0.9 % Sodium Chloride Flush 5 ML IVFLUSH ×3 (09:27→23:24)
[2021-04-30] MEDS: 0.9 % Sodium Chloride Flush 3 ML SYRINGE IVFLUSH ×3 (09:27→20:40)
[2021-04-30 09:28] VITALS: RESP 19
[2021-04-30] MEDS: vancomycin HCL 1,000 MG in 0.9 % Sodium Chloride 250 ML 270 MG IV ×2 (09:28→22:20)
[2021-04-30] MEDS: Topiramate 100 MG TABLET 200 MG PO (09:28)
[2021-04-30] MEDS: Gabapentin 400 MG CAPSULE 800 MG PO ×3 (09:29→20:38)
[2021-04-30] MEDS: busPIRone HCl 10 MG TABLET 30 MG PO ×2 (09:29→20:38)
[2021-04-30 09:30] VITALS: BP 119/68; PULSE 63
[2021-04-30] MEDS: diazePAM 5 MG TABLET PO ×3 (09:30→20:39)
[2021-04-30] MEDS: cloNIDine HCL 0.1 MG TABLET PO ×2 (09:30→17:33)
[2021-04-30] MEDS: Diclofenac Sodium Delayed Rel 50 MG TABLET.DR PO ×3 (09:30→22:22)
[2021-04-30] MEDS: lamoTRIgine 25 MG TABLET 50 MG PO (09:30)
[2021-04-30] MEDS: hydrOXYzine HCL 25 MG TABLET PO ×4 (09:30→20:39)
[2021-04-30 12:27] VITALS: BP 106/57; PULSE 64; RESP 18; TEMP 36.6; O2SAT 98
[2021-04-30 14:27] VITALS: RESP 18
--- NOTE | 2021-04-30 15:17 | MHC.CM.PN ---
[facility] UPDATED IN [facility]. NO BED OFFER OF THIS NOTE. CASE MANAGEMENT CONTINUING TO FOLLOW.
[2021-04-30 15:39] VITALS: BP 137/70; PULSE 64; RESP 18; TEMP 36.1; O2SAT 100
[2021-04-30] MEDS: Zolpidem Tartrate 5 MG TABLET PO (20:39)
[2021-04-30] MEDS: LORazepam 2 MG/ML VIAL 0.5 MG IVPUSH (23:24)
[2021-05-01] VITALS (7 sets, daily range): BP systolic 100–141; BP diastolic 55–92; PULSE 55–68; RESP 15–18; TEMP 36.1–36.6; O2SAT 97–100
--- NOTE | 2021-05-01 00:43 | MHC.PIE ---
p; pt coming out of room numerous times c/o cloths washing, ice creams, acusatory of staff making comments. pt also c/o anxiety and refusing to take prn catapres and reporting numerous times asking for ativan order as prn. i; dr mathias notified. new order ativan 0.5mg iv now e; pt asleep in bed will cont to monitor
[2021-05-01] MEDS: Morphine Sulfate 2 MG/ML CARTRIDGE IVPUSH ×5 (04:25→22:04)
[2021-05-01] MEDS: Acetaminophen 325 MG TABLET 650 MG PO ×2 (04:25→12:23)
[2021-05-01] MEDS: Nicotine Polacrilex 2 MG GUM BUCCAL ×3 (04:25→17:31)
[2021-05-01] MEDS: Omeprazole 20 MG CAPSULE.DR PO ×2 (04:30→16:45)
[2021-05-01] MEDS: vancomycin HCL 1,000 MG in 0.9 % Sodium Chloride 250 ML 270 MG IV ×2 (08:57→20:46)
[2021-05-01] MEDS: lamoTRIgine 25 MG TABLET 50 MG PO (09:00)
[2021-05-01] MEDS: Topiramate 100 MG TABLET 200 MG PO (09:00)
[2021-05-01] MEDS: busPIRone HCl 10 MG TABLET 30 MG PO ×2 (09:00→20:47)
[2021-05-01] MEDS: diazePAM 5 MG TABLET PO ×3 (09:00→20:48)
[2021-05-01] MEDS: hydrOXYzine HCL 25 MG TABLET PO ×4 (09:00→22:04)
[2021-05-01] MEDS: Gabapentin 400 MG CAPSULE 800 MG PO ×3 (09:01→20:48)
[2021-05-01] MEDS: 0.9 % Sodium Chloride Flush 3 ML SYRINGE IVFLUSH ×2 (09:01→16:45)
[2021-05-01] MEDS: Diclofenac Sodium Delayed Rel 50 MG TABLET.DR PO ×3 (09:11→23:27)
[2021-05-01] MEDS: Heparin Sodium,Porcine Flush 50 UNITS, 0.9 % Sodium Chloride Flush 5 ML IVFLUSH ×3 (10:11→20:48)
[2021-05-01] MEDS: Simethicone 80 MG TAB.CHEW PO (10:58)
[2021-05-01] MEDS: LORazepam 0.5 MG TABLET PO (10:58)
--- NOTE | 2021-05-01 11:45 | P.PNIM_ITS ---
Subjective Subjective Date of Service: 05/01/21 Interval History: The patient was seen and evaluated this morning Laying in bed, comfortable overall but anxious Denies any fever, chills or shortness of breath No reported other overnight events. Systemic review: No fever, chills but has anxiety No chest pain, palpitation No shortness of breath or coughing No abdominal pain, nausea or vomiting No urinary symptoms Physical Exam Vital Signs: Vital Signs: Last Vital Signs Temp 97.3 F 05/01/21 11:30 Pulse 59 05/01/21 11:30 Resp 18 05/01/21 11:30 BP 127/60 05/01/21 11:30 Pulse Ox 100 05/01/21 11:30 Body Mass Index 29.3 Const: Other: Constitutional : Alert , not in distress, get mildly anxious upon waking up Neck : Normal inspection, Supple Cardiovascular : RRR, S1 S2, no lower extremity edema Respiratory : Good bilateral air entry, no crackles, wheezes or rhonchi Gastrointestinal: soft, lax, Normal bowel sounds, Non tender Skin : Warm/Dry, ?no tenderness in right elbow with no drainage or erythema, no erythema or warmth Neurological : Alert , No focal deficit Objective Data Current Medications Generic Name Dose Route Start Last Admin Trade Name Freq PRN Reason Stop Dose Admin Acetaminophen 650 mg 04/21/21 14:29 05/01/21 04:25 Acetaminophen 325 Mg Tablet PO 650 mg Q6H PRN Administration Pain, Mild (Pain Scale 1-3) Buspirone HCl 30 mg 04/27/21 09:30 05/01/21 09:00 Buspirone Hcl 10 Mg Tablet PO 30 mg BID EDER Administration Clonidine HCl 0.1 mg 04/21/21 14:34 04/30/21 17:33 Clonidine Hcl 0.1 Mg Tablet PO 0.1 mg TID PRN Administration Opiate Withdrawal Protocol Heparin Sodium (Porcine) 50 0 units 04/29/21 21:00 05/01/21 10:11 units/ Sodium Chloride 5 ml IVFLUSH 5 unit TID EDER Administration Diazepam 5 mg 04/27/21 09:30 05/01/21 09:00 Diazepam 5 Mg Tablet PO 5 mg TID EDER Administration Diclofenac Sodium 50 mg 04/27/21 09:03 05/01/21 09:11 Diclofenac Sodium Delayed Rel 50 Mg Tablet. PO 50 mg TID PRN Administration Pain Enoxaparin Sodium 40 mg 04/21/21 16:00 04/30/21 15:02 Enoxaparin Sodium 40 Mg/0.4 Ml Syringe SUBCUT Not Given Q24H [facility] Gabapentin 800 mg 04/21/21 21:00 05/01/21 09:01 Gabapentin 400 Mg Capsule PO 800 mg TID EDER Administration Hydroxyzine HCl 25 mg 04/21/21 17:00 05/01/21 09:00 Hydroxyzine Hcl 25 Mg Tablet PO 25 mg QID EDER Administration Vancomycin HCl 1,000 mg/ 270 mls @ 270 mls/hr 04/27/21 21:00 05/01/21 10:09 Sodium Chloride IV Infused Q12H [facility] Infusion Lactic Acid 1 appl 04/29/21 09:46 Ammonium Lactate 12 % Cream 140 Gm Tube TOPICAL BID PRN Dry Skin Protocol Lamotrigine 50 mg 04/22/21 09:00 05/01/21 09:00 Lamotrigine 25 Mg Tablet PO 50 mg DAILY EDER Administration Lorazepam 0.5 mg 05/01/21 10:31 05/01/21 10:58 Lorazepam 0.5 Mg Tablet PO 0.5 mg DAILY PRN Administration anxiety/restlessness Melatonin 6 mg 04/24/21 22:50 04/24/21 23:59 Melatonin 3 Mg Tablet PO 6 mg BEDTIME PRN Administration Insomnia Methadone HCl 50 mg 04/27/21 09:00 05/01/21 08:57 Methadone Hcl 1 Mg/0.1 Ml Oral.Conc PO 50 mg DAILY EDER Administration Morphine Sulfate 2 mg 04/26/21 15:16 05/01/21 08:58 Morphine Sulfate 2 Mg/Ml Cartridge IVPUSH 2 mg Q4H PRN Administration pain Nicotine Polacrilex 2 mg 04/25/21 01:18 05/01/21 09:11 Nicotine Polacrilex 2 Mg Gum BUCCAL 2 mg Q2H PRN Administration Nicotine Cravings Omeprazole 20 mg 04/21/21 16:30 05/01/21 04:30 Omeprazole 20 Mg Capsule.Dr PO 20 mg BID@0630,1630 [facility] Administration Ondansetron HCl 4 mg 04/21/21 14:29 Ondansetron Hcl 4 Mg/2 Ml Vial IVPUSH Q8H PRN Nausea and Vomiting Simethicone 80 mg 05/01/21 10:25 05/01/21 10:58 Simethicone 80 Mg Tab.Chew PO 80 mg QIDWMHS PRN Administration Gas Sodium Chloride 3 ml 04/21/21 16:00 05/01/21 09:01 0.9 % Sodium Chloride Flush 3 Ml Syringe IVFLUSH 3 ml QSHIFT EDER Administration Topiramate 200 mg 04/22/21 09:00 05/01/21 09:00 Topiramate 100 Mg Tablet PO 200 mg DAILY EDER Administration Zolpidem Tartrate 5 mg 04/25/21 09:28 04/30/21 20:39 Zolpidem Tartrate 5 Mg Tablet PO 5 mg BEDTIME PRN Administration Insomnia Labs CBC & Chem 7: 04/29/21 07:49 04/29/21 07:49 Assessment and Plan (1) MRSA bacteremia: Status: Acute Assessment and Plan: 41-year-old female with past medical history of IV drug who initially presented to the hospital on 04/03 with abscess, patient underwent I&D on 04/05 and was being treated for cellulitis/abscess and possible bacteremia but left AMA on 04/06.? She came back 2 days later but she left again AMA on the 20 of April. Went out and report using IV drugs again, came back to the hospital with intoxication and suicidal ideation. re-admitted to the medical floor to continue MRSA bacteremia treatment. ?MRSA bacteremia Repeat blood cultures negative Continue IV vancomycin 1.25 g b.i.d. To finish treatment on 05/18/21 midline placed 04/29/21 monitor labs weekly Suicidal ideation Denies any suicidal ideation at this point Psychiatry input appreciated, not suicidal anymore Opioid abuse and dependence Drug overdose Continue 50 mg methadone Atarax and clonidine as needed discussed with addiction medicine, continue valium 5mg tid, do not use any more breakthrough benzodiazepenes, mood disorder restarted buspar insomnia ambien HCV outpatient follow up DVT prophylaxis Heparin subQ Quality Stroke Does the patient have a stroke diagnosis?: No VTE Prior VTE?: No VTE Risk Level:: Medical - moderate - high VTE Device Contraindication: N/A - Device Ordered VTE Drug Contraindication: Treatment Not Indicated
--- NOTE | 2021-05-01 11:54 | MHC.CM.PN ---
[facility] DENIES A BED OFFER. OF THIS NOTE, NO BED OFFERS FOR PATIENT. [facility] IS FOLLOWING IN THE EVENT A FEMALE BED BECOMES AVAILABLE.
--- NOTE | 2021-05-01 14:26 | PM.EVENT ---
Event Note Date of Service: 05/01/21 Event Note: Addiction follow up: Patient seen in room 360. requesting further increase in methadone. Reporting continued anxiety and restlessness. Plan: -increase methadone to 55mg QD starting tomorrow 05/02 -hospitalist aware
[2021-05-01] MEDS: Cyclobenzaprine HCl 5 MG TABLET PO (22:04)
[2021-05-02] MEDS: Omeprazole 20 MG CAPSULE.DR PO ×2 (05:52→16:49)
[2021-05-02] MEDS: Cyclobenzaprine HCl 5 MG TABLET PO ×3 (05:59→22:16)
[2021-05-02] MEDS: Morphine Sulfate 2 MG/ML CARTRIDGE IVPUSH ×5 (05:59→22:16)
[2021-05-02 07:56] VITALS: BP 110/55; PULSE 75; RESP 18; TEMP 36.1; O2SAT 97
[2021-05-02] MEDS: Gabapentin 400 MG CAPSULE 800 MG PO ×3 (08:27→20:47)
[2021-05-02] MEDS: lamoTRIgine 25 MG TABLET 50 MG PO (08:27)
[2021-05-02] MEDS: busPIRone HCl 10 MG TABLET 30 MG PO ×2 (08:27→20:47)
[2021-05-02] MEDS: diazePAM 5 MG TABLET PO ×3 (08:27→20:47)
[2021-05-02] MEDS: Diclofenac Sodium Delayed Rel 50 MG TABLET.DR PO ×2 (08:27→23:39)
[2021-05-02] MEDS: Topiramate 100 MG TABLET 200 MG PO (08:27)
[2021-05-02] MEDS: Nicotine Polacrilex 2 MG GUM BUCCAL ×4 (08:27→22:21)
[2021-05-02] MEDS: 0.9 % Sodium Chloride Flush 3 ML SYRINGE IVFLUSH ×2 (08:28→16:51)
[2021-05-02] MEDS: Heparin Sodium,Porcine Flush 50 UNITS, 0.9 % Sodium Chloride Flush 5 ML IVFLUSH ×3 (08:28→20:47)
[2021-05-02] MEDS: LORazepam 0.5 MG TABLET PO (08:33)
[2021-05-02] MEDS: Simethicone 80 MG TAB.CHEW PO ×2 (10:32→21:14)
[2021-05-02 11:25] LABS: Vancomycin Trough 14.5 mcg/mL (10.0-20.0)
[2021-05-02] MEDS: vancomycin HCL 1,000 MG in 0.9 % Sodium Chloride 250 ML 270 MG IV ×2 (11:51→23:33)
[2021-05-02 11:53] VITALS: BP 132/58; PULSE 66; RESP 18; TEMP 36; O2SAT 100
--- NOTE | 2021-05-02 14:17 | P.PNIM_ITS ---
Subjective Subjective Date of Service: 05/02/21 Interval History: The patient was seen and evaluated this morning Laying in bed, comfortable overall but anxious Denies any fever, chills or shortness of breath No reported other overnight events. Systemic review: No fever, chills but has anxiety No chest pain, palpitation No shortness of breath or coughing No abdominal pain, nausea or vomiting No urinary symptoms Physical Exam Vital Signs: Vital Signs: Last Vital Signs Temp 96.8 F 05/02/21 11:53 Pulse 66 05/02/21 11:53 Resp 18 05/02/21 11:53 BP 132/58 L 05/02/21 11:53 Pulse Ox 100 05/02/21 11:53 Body Mass Index 29.3 Const: Other: Constitutional : Alert , not in distress, get mildly anxious upon waking up Neck : Normal inspection, Supple Cardiovascular : RRR, S1 S2, no lower extremity edema Respiratory : Good bilateral air entry, no crackles, wheezes or rhonchi Gastrointestinal: soft, lax, Normal bowel sounds, Non tender Skin : Warm/Dry, ?no tenderness in right elbow with no drainage or erythema, no erythema or warmth Neurological : Alert , No focal deficit Objective Data Current Medications Generic Name Dose Route Start Last Admin Trade Name Freq PRN Reason Stop Dose Admin Acetaminophen 650 mg 04/21/21 14:29 05/01/21 12:23 Acetaminophen 325 Mg Tablet PO 650 mg Q6H PRN Administration Pain, Mild (Pain Scale 1-3) Buspirone HCl 30 mg 04/27/21 09:30 05/02/21 08:27 Buspirone Hcl 10 Mg Tablet PO 30 mg BID EDER Administration Clonidine HCl 0.1 mg 04/21/21 14:34 04/30/21 17:33 Clonidine Hcl 0.1 Mg Tablet PO 0.1 mg TID PRN Administration Opiate Withdrawal Protocol Heparin Sodium (Porcine) 50 0 units 04/29/21 21:00 05/02/21 14:15 units/ Sodium Chloride 5 ml IVFLUSH 50 unit TID EDER Administration Cyclobenzaprine HCl 5 mg 05/01/21 20:16 05/02/21 14:14 Cyclobenzaprine Hcl 5 Mg Tablet PO 5 mg TID PRN Administration back pain Diazepam 5 mg 05/02/21 15:00 05/02/21 14:14 Diazepam 5 Mg Tablet PO 5 mg TID EDER Administration Diclofenac Sodium 50 mg 04/27/21 09:03 05/02/21 08:27 Diclofenac Sodium Delayed Rel 50 Mg Tablet. PO 50 mg TID PRN Administration Pain Enoxaparin Sodium 40 mg 04/21/21 16:00 05/01/21 16:45 Enoxaparin Sodium 40 Mg/0.4 Ml Syringe SUBCUT Not Given Q24H [facility] Gabapentin 800 mg 04/21/21 21:00 05/02/21 14:14 Gabapentin 400 Mg Capsule PO 800 mg TID EDER Administration Hydroxyzine HCl 25 mg 04/21/21 17:00 05/02/21 14:14 Hydroxyzine Hcl 25 Mg Tablet PO 25 mg QID EDER Administration Vancomycin HCl 1,000 mg/ 270 mls @ 270 mls/hr 05/02/21 12:00 05/02/21 13:03 Sodium Chloride IV Infused Q12H [facility] Infusion Lactic Acid 1 appl 04/29/21 09:46 Ammonium Lactate 12 % Cream 140 Gm Tube TOPICAL BID PRN Dry Skin Protocol Lamotrigine 50 mg 04/22/21 09:00 05/02/21 08:27 Lamotrigine 25 Mg Tablet PO 50 mg DAILY EDER Administration Lorazepam 0.5 mg 05/01/21 10:31 05/02/21 08:33 Lorazepam 0.5 Mg Tablet PO 0.5 mg DAILY PRN Administration anxiety/restlessness Melatonin 6 mg 04/24/21 22:50 04/24/21 23:59 Melatonin 3 Mg Tablet PO 6 mg BEDTIME PRN Administration Insomnia Methadone HCl 55 mg 05/02/21 09:00 05/02/21 11:17 Methadone Hcl 1 Mg/0.1 Ml Oral.Conc PO 55 mg DAILY EDER Administration Morphine Sulfate 2 mg 04/26/21 15:16 05/02/21 14:15 Morphine Sulfate 2 Mg/Ml Cartridge IVPUSH 2 mg Q4H PRN Administration pain Nicotine Polacrilex 2 mg 04/25/21 01:18 05/02/21 08:27 Nicotine Polacrilex 2 Mg Gum BUCCAL 2 mg Q2H PRN Administration Nicotine Cravings Omeprazole 20 mg 04/21/21 16:30 05/02/21 05:52 Omeprazole 20 Mg Capsule. PO 20 mg BID@0630,1630 EDER Administration Ondansetron HCl 4 mg 04/21/21 14:29 Ondansetron Hcl 4 Mg/2 Ml Vial IVPUSH Q8H PRN Nausea and Vomiting Simethicone 80 mg 05/01/21 10:25 05/02/21 10:32 Simethicone 80 Mg Tab.Chew PO 80 mg QIDWMHS PRN Administration Gas Sodium Chloride 3 ml 04/21/21 16:00 05/02/21 08:28 0.9 % Sodium Chloride Flush 3 Ml Syringe IVFLUSH 3 ml QSHIFT EDER Administration Topiramate 200 mg 04/22/21 09:00 05/02/21 08:27 Topiramate 100 Mg Tablet PO 200 mg DAILY EDER Administration Zolpidem Tartrate 5 mg 04/25/21 09:28 04/30/21 20:39 Zolpidem Tartrate 5 Mg Tablet PO 5 mg BEDTIME PRN Administration Insomnia Labs CBC & Chem 7: 04/29/21 07:49 04/29/21 07:49 Labs: Laboratory Results - last 24 hr 05/02/21 07:31 Vancomycin Trough 14.5 Assessment and Plan (1) Intoxication by drug: Status: Acute (2) Suicidal ideation: Status: Acute (3) MRSA bacteremia: Status: Acute Assessment and Plan: 41-year-old female with past medical history of IV drug who initially presented to the hospital on 04/03 with abscess, patient underwent I&D on 04/05 and was being treated for cellulitis/abscess and possible bacteremia but left AMA on 04/06.? She came back 2 days later but she left again AMA on the 20 of April. Went out and report using IV drugs again, came back to the hospital with intoxication and suicidal ideation. re-admitted to the medical floor to continue MRSA bacteremia treatment. ?MRSA bacteremia Repeat blood cultures negative Continue IV vancomycin 1.25 g b.i.d. To finish treatment on 05/18/21 midline placed 04/29/21 monitor labs weekly Suicidal ideation Denies any suicidal ideation at this point Psychiatry input appreciated, not suicidal anymore Opioid abuse and dependence Drug overdose Continue 50 mg methadone Atarax and clonidine as needed discussed with addiction medicine, continue valium 5mg tid, do not use any more breakthrough benzodiazepenes, Burning urination Urinalysis To check STD profile mood disorder restarted buspar insomnia ambien HCV outpatient follow up DVT prophylaxis Heparin subQ Quality Stroke Does the patient have a stroke diagnosis?: No VTE Prior VTE?: No VTE Risk Level:: Medical - moderate - high VTE Device Contraindication: N/A - Device Ordered VTE Drug Contraindication: Treatment Not Indicated
[2021-05-02 16:00] VITALS: BP 117/59; PULSE 67; RESP 17; TEMP 36.1; O2SAT 96
--- NOTE | 2021-05-02 16:22 | MHC.RECOVRN ---
T/w asked to meet with pt due to pt being upset and having difficulty controlling emotions. Upon t/w entering room, pt sitting on bed and calm. Pt states the nurses and social worker assistant are all talking behind my back, they have nothing better to do. Pt becomes upset and continues to state you think someone is nice and they just stab you in the back. After some time, pt able to calm down and acknowledges that staff are trying to help. T/w available as needed.
[2021-05-02 16:24] LABS: Glucose Urine UA NEG (NEG); Leukocyte Esterase Urine NEG (NEG); Nitrite Urine NEG (NEG); Urine Blood NEG (NEG); Urine Ketones NEG (NEG); Urine Protein NEG (NEG-TRACE)
[2021-05-02 16:26] LABS: Appearance Urine HAZY; Color Urine YELLOW
[2021-05-02] MEDS: hydrOXYzine HCL 25 MG TABLET PO (16:50)
[2021-05-02] MEDS: cloNIDine HCL 0.1 MG TABLET PO (16:50)
[2021-05-02 19:07] VITALS: BP 118/54; PULSE 64; RESP 17; TEMP 36.1; O2SAT 98
[2021-05-02 23:33] VITALS: BP 108/58; PULSE 61; RESP 18; TEMP 36.8; O2SAT 100
[2021-05-03] MEDS: Morphine Sulfate 2 MG/ML CARTRIDGE IVPUSH ×4 (03:20→18:03)
[2021-05-03 05:45] LABS: CT PCR NOT DETECTED (Not Detect.); NG PCR NOT DETECTED (Not Detect.)
[2021-05-03] MEDS: Omeprazole 20 MG CAPSULE.DR PO ×2 (06:08→15:58)
[2021-05-03] MEDS: Cyclobenzaprine HCl 5 MG TABLET PO ×3 (06:08→21:19)
[2021-05-03] MEDS: Nicotine Polacrilex 2 MG GUM BUCCAL ×5 (06:11→21:19)
[2021-05-03] MEDS: LORazepam 0.5 MG TABLET PO (06:46)
[2021-05-03 08:00] VITALS: BP 120/60; PULSE 76; RESP 18; TEMP 36; O2SAT 99
[2021-05-03 08:08] LABS: Creatinine Clr Calc Pharmacy 83.3; Estimated Glomerular Filt Rate > 60
[2021-05-03] MEDS: busPIRone HCl 10 MG TABLET 30 MG PO ×2 (08:47→21:18)
[2021-05-03] MEDS: hydrOXYzine HCL 25 MG TABLET PO ×3 (08:48→21:18)
[2021-05-03] MEDS: Gabapentin 400 MG CAPSULE 800 MG PO ×3 (08:48→21:18)
[2021-05-03] MEDS: diazePAM 5 MG TABLET PO ×3 (08:48→21:18)
[2021-05-03] MEDS: lamoTRIgine 25 MG TABLET 50 MG PO (08:48)
[2021-05-03] MEDS: Heparin Sodium,Porcine Flush 50 UNITS, 0.9 % Sodium Chloride Flush 5 ML IVFLUSH ×3 (08:48→21:19)
[2021-05-03] MEDS: Topiramate 100 MG TABLET 200 MG PO (08:48)
[2021-05-03] MEDS: 0.9 % Sodium Chloride Flush 3 ML SYRINGE IVFLUSH ×2 (08:50→15:59)
[2021-05-03] MEDS: Diclofenac Sodium Delayed Rel 50 MG TABLET.DR PO ×3 (10:01→21:19)
[2021-05-03] MEDS: Nicotine 14 MG PATCH.TD24 TRANSDERMA (11:25)
[2021-05-03] MEDS: vancomycin HCL 1,000 MG in 0.9 % Sodium Chloride 250 ML 270 MG IV (11:31)
[2021-05-03 12:00] VITALS: BP 103/58; PULSE 74; RESP 18; TEMP 36.1; O2SAT 99
--- NOTE | 2021-05-03 12:06 | HO.PM.IMPN ---
Subjective Subjective Date of Service: 05/03/21 Interval History: The patient was seen and evaluated this morning Laying in bed, comfortable overall but anxious Complaining of vaginal discharge Denies any fever, chills or shortness of breath No reported other overnight events. Systemic review: No fever, chills but has anxiety No chest pain, palpitation No shortness of breath or coughing No abdominal pain, nausea or vomiting No urinary symptoms Physical Exam Vital Signs: Vital Signs: Last Vital Signs Temp 96.8 F 05/03/21 08:00 Pulse 76 05/03/21 08:00 Resp 18 05/03/21 08:00 BP 120/60 05/03/21 08:00 Pulse Ox 99 05/03/21 08:00 Body Mass Index 29.3 Const: Other: Constitutional : Alert , not in distress, get mildly anxious upon waking up Neck : Normal inspection, Supple Cardiovascular : RRR, S1 S2, no lower extremity edema Respiratory : Good bilateral air entry, no crackles, wheezes or rhonchi Gastrointestinal: soft, lax, Normal bowel sounds, Non tender Skin : Warm/Dry, ?no tenderness in right elbow with no drainage or erythema, no erythema or warmth Neurological : Alert , No focal deficit Objective Data Current Medications Generic Name Dose Route Start Last Admin Trade Name Freq PRN Reason Stop Dose Admin Acetaminophen 650 mg 04/21/21 14:29 05/01/21 12:23 Acetaminophen 325 Mg Tablet PO 650 mg Q6H PRN Administration Pain, Mild (Pain Scale 1-3) Buspirone HCl 30 mg 04/27/21 09:30 05/03/21 08:47 Buspirone Hcl 10 Mg Tablet PO 30 mg BID EDER Administration Clonidine HCl 0.1 mg 04/21/21 14:34 05/02/21 16:50 Clonidine Hcl 0.1 Mg Tablet PO 0.1 mg TID PRN Administration Opiate Withdrawal Protocol Heparin Sodium (Porcine) 50 0 units 04/29/21 21:00 05/03/21 08:48 units/ Sodium Chloride 5 ml IVFLUSH 50 unit TID EDER Administration Cyclobenzaprine HCl 5 mg 05/01/21 20:16 05/03/21 06:08 Cyclobenzaprine Hcl 5 Mg Tablet PO 5 mg TID PRN Administration back pain Diazepam 5 mg 05/02/21 15:00 05/03/21 08:48 Diazepam 5 Mg Tablet PO 5 mg TID EDER Administration Diclofenac Sodium 50 mg 04/27/21 09:03 05/03/21 10:01 Diclofenac Sodium Delayed Rel 50 Mg Tablet.Dr PO 50 mg TID PRN Administration Pain Enoxaparin Sodium 40 mg 04/21/21 16:00 05/02/21 16:12 Enoxaparin Sodium 40 Mg/0.4 Ml Syringe SUBCUT Not Given Q24H EDER Gabapentin 800 mg 04/21/21 21:00 05/03/21 08:48 Gabapentin 400 Mg Capsule PO 800 mg TID EDER Administration Hydroxyzine HCl 25 mg 04/21/21 17:00 05/03/21 08:48 Hydroxyzine Hcl 25 Mg Tablet PO 25 mg QID EDER Administration Vancomycin HCl 1,000 mg/ 270 mls @ 270 mls/hr 05/02/21 12:00 05/03/21 11:31 Sodium Chloride IV 270 mls/hr Q12H EDER Administration Lactic Acid 1 appl 04/29/21 09:46 Ammonium Lactate 12 % Cream 140 Gm Tube TOPICAL BID PRN Dry Skin Protocol Lamotrigine 50 mg 04/22/21 09:00 05/03/21 08:48 Lamotrigine 25 Mg Tablet PO 50 mg DAILY EDER Administration Lorazepam 0.5 mg 05/01/21 10:31 05/03/21 06:46 Lorazepam 0.5 Mg Tablet PO 0.5 mg DAILY PRN Administration anxiety/restlessness Melatonin 6 mg 04/24/21 22:50 04/24/21 23:59 Melatonin 3 Mg Tablet PO 6 mg BEDTIME PRN Administration Insomnia Methadone HCl 55 mg 05/02/21 09:00 05/03/21 08:48 Methadone Hcl 1 Mg/0.1 Ml Oral.Conc PO 55 mg DAILY EDER Administration Metronidazole 250 mg 05/03/21 12:00 Metronidazole 250 Mg Tablet PO 05/08/21 11:59 Q8H EDER Morphine Sulfate 2 mg 04/26/21 15:16 05/03/21 08:54 Morphine Sulfate 2 Mg/Ml Cartridge IVPUSH 2 mg Q4H PRN Administration pain Nicotine 14 mg 05/03/21 10:30 05/03/21 11:25 Nicotine 14 Mg Patch.Td24 TRANSDERMA 14 mg DAILY EDER Administration Nicotine Polacrilex 2 mg 04/25/21 01:18 05/03/21 10:01 Nicotine Polacrilex 2 Mg Gum BUCCAL 2 mg Q2H PRN Administration Nicotine Cravings Omeprazole 20 mg 04/21/21 16:30 05/03/21 06:08 Omeprazole 20 Mg Capsule. PO 20 mg BID@4372,8560 EDER Administration Ondansetron HCl 4 mg 04/21/21 14:29 Ondansetron Hcl 4 Mg/2 Ml Vial IVPUSH Q8H PRN Nausea and Vomiting Simethicone 80 mg 05/01/21 10:25 05/02/21 21:14 Simethicone 80 Mg Tab.Chew PO 80 mg QIDWMHS PRN Administration Gas Sodium Chloride 3 ml 04/21/21 16:00 05/03/21 08:50 0.9 % Sodium Chloride Flush 3 Ml Syringe IVFLUSH 3 ml QSHIFT EDER Administration Topiramate 200 mg 04/22/21 09:00 05/03/21 08:48 Topiramate 100 Mg Tablet PO 200 mg DAILY EDER Administration Zolpidem Tartrate 5 mg 04/25/21 09:28 04/30/21 20:39 Zolpidem Tartrate 5 Mg Tablet PO 5 mg BEDTIME PRN Administration Insomnia Labs CBC & Chem 7: 04/29/21 07:49 05/03/21 06:59 Labs: Laboratory Results - last 24 hr 05/02/21 05/02/21 05/03/21 16:06 16:49 06:59 Estim Creat Clear Calc 83.3 Estimated GFR > 60 Urine Color YELLOW Urine Appearance HAZY Urine pH 6.0 Ur Specific [place] 1.010 Urine Protein NEG Urine Glucose (UA) NEG Urine Ketones NEG Urine Blood NEG Urine Nitrite NEG Ur Leukocyte Esterase NEG Chlam trachomat DNA PCR NOT DETECTED N.gonorrhoeae DNA (PCR) NOT DETECTED Assessment and Plan (1) MRSA bacteremia: Status: Acute Assessment and Plan: 41-year-old female with past medical history of IV drug who initially presented to the hospital on 04/03 with abscess, patient underwent I&D on 04/05 and was being treated for cellulitis/abscess and possible bacteremia but left AMA on 04/06.? She came back 2 days later but she left again AMA on the 20 of April. Went out and report using IV drugs again, came back to the hospital with intoxication and suicidal ideation. re-admitted to the medical floor to continue MRSA bacteremia treatment. ?MRSA bacteremia Repeat blood cultures negative Continue IV vancomycin 1.25 g b.i.d. To finish treatment on 05/18/21 midline placed 04/29/21 monitor labs weekly Suicidal ideation Denies any suicidal ideation at this point Psychiatry input appreciated, not suicidal anymore Opioid abuse and dependence Drug overdose Continue 50 mg methadone Atarax and clonidine as needed discussed with addiction medicine, continue valium 5mg tid, do not use any more breakthrough benzodiazepenes, Burning urination Urinalysis negative for any UTI Recently trichomoniasis, left AMA before finishing treatment To treat with Flagyl for 5 days mood disorder restarted buspar insomnia damion HCV outpatient follow up DVT prophylaxis Heparin subQ Quality Stroke Does the patient have a stroke diagnosis?: No VTE Prior VTE?: No VTE Risk Level:: Medical - moderate - high VTE Device Contraindication: N/A - Device Ordered VTE Drug Contraindication: Treatment Not Indicated
[2021-05-03] MEDS: metroNIDAZOLE 250 MG TABLET PO ×2 (13:14→21:18)
[2021-05-03] MEDS: Simethicone 80 MG TAB.CHEW PO (13:15)
[2021-05-03 15:52] VITALS: BP 109/55; PULSE 74; RESP 20; TEMP 36.3; O2SAT 99
[2021-05-03] MEDS: cloNIDine HCL 0.1 MG TABLET PO (16:02)
[2021-05-03 19:31] VITALS: BP 110/60; PULSE 75; RESP 20; TEMP 36.1; O2SAT 97
[2021-05-03 23:52] VITALS: BP 111/59; PULSE 63; RESP 16; TEMP 36.4; O2SAT 99
[2021-05-04] MEDS: 0.9 % Sodium Chloride Flush 3 ML SYRINGE IVFLUSH (00:12)
[2021-05-04] MEDS: Morphine Sulfate 2 MG/ML CARTRIDGE IVPUSH ×5 (00:12→20:12)
[2021-05-04] MEDS: vancomycin HCL 1,000 MG in 0.9 % Sodium Chloride 250 ML 250 MG IV (00:19)
[2021-05-04 04:00] VITALS: BP 103/59; PULSE 66; RESP 16; TEMP 35.5; O2SAT 97
[2021-05-04] MEDS: metroNIDAZOLE 250 MG TABLET PO ×3 (05:44→20:13)
[2021-05-04] MEDS: Omeprazole 20 MG CAPSULE.DR PO ×2 (05:44→17:11)
[2021-05-04] MEDS: LORazepam 0.5 MG TABLET PO ×2 (05:49→11:12)
[2021-05-04] MEDS: Diclofenac Sodium Delayed Rel 50 MG TABLET.DR PO ×2 (05:50→14:49)
[2021-05-04] MEDS: Cyclobenzaprine HCl 5 MG TABLET PO ×3 (06:32→22:02)
[2021-05-04 08:00] VITALS: BP 118/58; PULSE 69; RESP 18; TEMP 36.1; O2SAT 99
[2021-05-04] MEDS: Gabapentin 400 MG CAPSULE 800 MG PO ×3 (08:58→20:13)
[2021-05-04] MEDS: busPIRone HCl 10 MG TABLET 30 MG PO ×2 (08:58→20:13)
[2021-05-04] MEDS: diazePAM 5 MG TABLET PO ×3 (08:58→20:13)
[2021-05-04] MEDS: Topiramate 100 MG TABLET 200 MG PO (08:59)
[2021-05-04] MEDS: hydrOXYzine HCL 25 MG TABLET PO ×4 (08:59→20:13)
[2021-05-04] MEDS: lamoTRIgine 25 MG TABLET 50 MG PO (09:00)
[2021-05-04] MEDS: Nicotine 14 MG PATCH.TD24 TRANSDERMA (09:00)
[2021-05-04] MEDS: Heparin Sodium,Porcine Flush 50 UNITS, 0.9 % Sodium Chloride Flush 5 ML IVFLUSH ×3 (09:01→20:13)
[2021-05-04] MEDS: cloNIDine HCL 0.1 MG TABLET PO ×2 (09:12→17:13)
[2021-05-04] MEDS: Simethicone 80 MG TAB.CHEW PO (09:12)
[2021-05-04] MEDS: Nicotine Polacrilex 2 MG GUM BUCCAL ×3 (09:13→20:24)
--- NOTE | 2021-05-04 11:04 | HO.PM.IMPN ---
Subjective Subjective Date of Service: 05/04/21 Interval History: The patient was seen and evaluated this morning Laying in bed, comfortable overall but anxious Increased anxiety levels this morning, would like to be able to ambulate freely with no restrictions Denies any fever, chills or shortness of breath No reported other overnight events. Systemic review: No fever, chills but has anxiety No chest pain, palpitation No shortness of breath or coughing No abdominal pain, nausea or vomiting No urinary symptoms Physical Exam Vital Signs: Vital Signs: Last Vital Signs Temp 97.0 F 05/04/21 08:00 Pulse 69 05/04/21 08:00 Resp 18 05/04/21 08:00 BP 118/58 L 05/04/21 08:00 Pulse Ox 99 05/04/21 08:00 Body Mass Index 29.3 Const: Other: Constitutional : Alert , not in distress, get mildly anxious upon waking up Neck : Normal inspection, Supple Cardiovascular : RRR, S1 S2, no lower extremity edema Respiratory : Good bilateral air entry, no crackles, wheezes or rhonchi Gastrointestinal: soft, lax, Normal bowel sounds, Non tender Skin : Warm/Dry, ?no tenderness in right elbow with no drainage or erythema, no erythema or warmth Neurological : Alert , No focal deficit Objective Data Current Medications Generic Name Dose Route Start Last Admin Trade Name Joie PRN Reason Stop Dose Admin Acetaminophen 650 mg 04/21/21 14:29 05/01/21 12:23 Acetaminophen 325 Mg Tablet PO 650 mg Q6H PRN Administration Pain, Mild (Pain Scale 1-3) Buspirone HCl 30 mg 04/27/21 09:30 05/04/21 08:58 Buspirone Hcl 10 Mg Tablet PO 30 mg BID EDER Administration Clonidine HCl 0.1 mg 04/21/21 14:34 05/04/21 09:12 Clonidine Hcl 0.1 Mg Tablet PO 0.1 mg TID PRN Administration Opiate Withdrawal Protocol Heparin Sodium (Porcine) 50 0 units 04/29/21 21:00 05/04/21 09:01 units/ Sodium Chloride 5 ml IVFLUSH 50 unit TID EDER Administration Cyclobenzaprine HCl 5 mg 05/01/21 20:16 05/04/21 06:32 Cyclobenzaprine Hcl 5 Mg Tablet PO 5 mg TID PRN Administration back pain Diazepam 5 mg 05/02/21 15:00 05/04/21 08:58 Diazepam 5 Mg Tablet PO 5 mg TID EDER Administration Diclofenac Sodium 50 mg 04/27/21 09:03 05/04/21 05:50 Diclofenac Sodium Delayed Rel 50 Mg Tablet.Dr PO 50 mg TID PRN Administration Pain Enoxaparin Sodium 40 mg 04/21/21 16:00 05/03/21 16:07 Enoxaparin Sodium 40 Mg/0.4 Ml Syringe SUBCUT Not Given Q24H EDER Gabapentin 800 mg 04/21/21 21:00 05/04/21 08:58 Gabapentin 400 Mg Capsule PO 800 mg TID EDER Administration Hydroxyzine HCl 25 mg 04/21/21 17:00 05/04/21 08:59 Hydroxyzine Hcl 25 Mg Tablet PO 25 mg QID EDER Administration Vancomycin HCl 1,000 mg/ 270 mls @ 270 mls/hr 05/02/21 12:00 05/04/21 02:03 Sodium Chloride IV Infused Q12H EDER Infusion Lactic Acid 1 appl 04/29/21 09:46 Ammonium Lactate 12 % Cream 140 Gm Tube TOPICAL BID PRN Dry Skin Protocol Lamotrigine 50 mg 04/22/21 09:00 05/04/21 09:00 Lamotrigine 25 Mg Tablet PO 50 mg DAILY EDER Administration Lorazepam 0.5 mg 05/01/21 10:31 05/04/21 05:49 Lorazepam 0.5 Mg Tablet PO 0.5 mg DAILY PRN Administration anxiety/restlessness Melatonin 6 mg 04/24/21 22:50 04/24/21 23:59 Melatonin 3 Mg Tablet PO 6 mg BEDTIME PRN Administration Insomnia Methadone HCl 55 mg 05/02/21 09:00 05/04/21 09:00 Methadone Hcl 1 Mg/0.1 Ml Oral.Conc PO 55 mg DAILY EDER Administration Metronidazole 250 mg 05/03/21 12:00 05/04/21 05:44 Metronidazole 250 Mg Tablet PO 05/08/21 11:59 250 mg Q8H EDER Administration Morphine Sulfate 2 mg 04/26/21 15:16 05/04/21 10:02 Morphine Sulfate 2 Mg/Ml Cartridge IVPUSH 2 mg Q4H PRN Administration pain Nicotine 14 mg 05/03/21 10:30 05/04/21 09:00 Nicotine 14 Mg Patch.Td24 TRANSDERMA 14 mg DAILY EDER Administration Nicotine Polacrilex 2 mg 04/25/21 01:18 05/04/21 09:13 Nicotine Polacrilex 2 Mg Gum BUCCAL 2 mg Q2H PRN Administration Nicotine Cravings Omeprazole 20 mg 04/21/21 16:30 05/04/21 05:44 Omeprazole 20 Mg Capsule. PO 20 mg BID@0630,1630 EDER Administration Ondansetron HCl 4 mg 04/21/21 14:29 Ondansetron Hcl 4 Mg/2 Ml Vial IVPUSH Q8H PRN Nausea and Vomiting Simethicone 80 mg 05/01/21 10:25 05/04/21 09:12 Simethicone 80 Mg Tab.Chew PO 80 mg QIDWMHS PRN Administration Gas Sodium Chloride 3 ml 04/21/21 16:00 05/04/21 09:00 0.9 % Sodium Chloride Flush 3 Ml Syringe IVFLUSH Not Given QSHIFT EDER Topiramate 200 mg 04/22/21 09:00 05/04/21 08:59 Topiramate 100 Mg Tablet PO 200 mg DAILY EDER Administration Zolpidem Tartrate 5 mg 04/25/21 09:28 04/30/21 20:39 Zolpidem Tartrate 5 Mg Tablet PO 5 mg BEDTIME PRN Administration Insomnia Labs CBC & Chem 7: 04/29/21 07:49 05/03/21 06:59 Assessment and Plan (1) MRSA bacteremia: Status: Acute Assessment and Plan: 41-year-old female with past medical history of IV drug who initially presented to the hospital on 04/03 with abscess, patient underwent I&D on 04/05 and was being treated for cellulitis/abscess and possible bacteremia but left AMA on 04/06.? She came back 2 days later but she left again AMA on the 20 of April. Went out and report using IV drugs again, came back to the hospital with intoxication and suicidal ideation. re-admitted to the medical floor to continue MRSA bacteremia treatment. ?MRSA bacteremia Repeat blood cultures negative Continue IV vancomycin 1.25 g b.i.d. To finish treatment on 05/18/21 midline placed 04/29/21 monitor labs weekly Suicidal ideation Denies any suicidal ideation at this point Psychiatry input appreciated, not suicidal anymore Opioid abuse and dependence Drug overdose Continue 50 mg methadone Atarax and clonidine as needed discussed with addiction medicine, continue valium 5mg tid, do not use any more breakthrough benzodiazepenes, Vaginal discharge Urinalysis negative for any UTI Recently trichomoniasis, left AMA before finishing treatment To treat with Flagyl for 5 days mood disorder restarted buspar insomnia ambien HCV outpatient follow up DVT prophylaxis Heparin subQ Quality Stroke Does the patient have a stroke diagnosis?: No VTE Prior VTE?: No VTE Risk Level:: Medical - moderate - high VTE Device Contraindication: N/A - Device Ordered VTE Drug Contraindication: Treatment Not Indicated
[2021-05-04 11:31] LABS: Creatinine Clr Calc Pharmacy 83.3; Estimated Glomerular Filt Rate > 60
[2021-05-04 11:37] LABS: Vancomycin Trough 15.6 mcg/mL (10.0-20.0)
[2021-05-04 12:00] VITALS: BP 106/55; PULSE 67; RESP 18; TEMP 35.5; O2SAT 98
[2021-05-04] MEDS: vancomycin HCL 1,000 MG in 0.9 % Sodium Chloride 250 ML 270 MG IV (12:06)
[2021-05-04 15:21] VITALS: BP 99/61; PULSE 71; RESP 18; TEMP 36.1; O2SAT 97
[2021-05-04 19:42] VITALS: BP 116/51; PULSE 66; RESP 18; TEMP 36.1; O2SAT 100
[2021-05-04] MEDS: Zolpidem Tartrate 5 MG TABLET PO (23:29)
[2021-05-04 23:38] VITALS: BP 90/48; PULSE 62; RESP 18; TEMP 36.3; O2SAT 99
[2021-05-05] VITALS (7 sets, daily range): BP systolic 111–119; BP diastolic 56–68; PULSE 75–76; RESP 16–19; TEMP 36.1–37.2; O2SAT 96–99
[2021-05-05] MEDS: Morphine Sulfate 2 MG/ML CARTRIDGE IVPUSH ×4 (01:11→14:06)
[2021-05-05] MEDS: vancomycin HCL 1,000 MG in 0.9 % Sodium Chloride 250 ML 270 MG IV ×3 (01:15→23:52)
[2021-05-05] MEDS: 0.9 % Sodium Chloride Flush 3 ML SYRINGE IVFLUSH (01:19)
[2021-05-05] MEDS: Omeprazole 20 MG CAPSULE.DR PO ×2 (05:39→15:24)
[2021-05-05] MEDS: metroNIDAZOLE 250 MG TABLET PO ×3 (05:39→20:43)
[2021-05-05] MEDS: Cyclobenzaprine HCl 5 MG TABLET PO ×2 (05:47→17:05)
[2021-05-05] MEDS: LORazepam 0.5 MG TABLET PO ×2 (06:07→15:32)
[2021-05-05] MEDS: lamoTRIgine 25 MG TABLET 50 MG PO (09:06)
[2021-05-05] MEDS: hydrOXYzine HCL 25 MG TABLET PO ×4 (09:06→20:42)
[2021-05-05] MEDS: diazePAM 5 MG TABLET PO ×3 (09:06→20:42)
[2021-05-05] MEDS: Gabapentin 400 MG CAPSULE 800 MG PO ×3 (09:06→20:44)
[2021-05-05] MEDS: Nicotine 14 MG PATCH.TD24 TRANSDERMA (09:06)
[2021-05-05] MEDS: Topiramate 100 MG TABLET 200 MG PO (09:06)
[2021-05-05] MEDS: Heparin Sodium,Porcine Flush 50 UNITS, 0.9 % Sodium Chloride Flush 5 ML IVFLUSH ×3 (09:09→20:48)
[2021-05-05] MEDS: cloNIDine HCL 0.1 MG TABLET PO ×2 (09:19→17:05)
[2021-05-05] MEDS: busPIRone HCl 10 MG TABLET 30 MG PO ×2 (09:19→20:44)
[2021-05-05] MEDS: Diclofenac Sodium Delayed Rel 50 MG TABLET.DR PO (09:20)
[2021-05-05] MEDS: Simethicone 80 MG TAB.CHEW PO ×2 (10:10→15:24)
--- NOTE | 2021-05-05 11:56 | HO.PM.IMPN ---
Subjective Subjective Date of Service: 05/05/21 Interval History: The patient was seen and evaluated this morning Laying in bed, comfortable overall but anxious Increased anxiety levels this morning, would like to be able to ambulate freely with no restrictions Denies any fever, chills or shortness of breath No reported other overnight events. Systemic review: No fever, chills but has anxiety No chest pain, palpitation No shortness of breath or coughing No abdominal pain, nausea or vomiting No urinary symptoms Physical Exam Vital Signs: Vital Signs: Last Vital Signs Temp 97.0 F 05/05/21 07:50 Pulse 75 05/05/21 07:50 Resp 16 05/05/21 07:50 BP 119/59 L 05/05/21 07:50 Pulse Ox 99 05/05/21 07:50 Body Mass Index 29.3 Const: Other: Constitutional : Alert , not in distress, get mildly anxious upon waking up Neck : Normal inspection, Supple Cardiovascular : RRR, S1 S2, no lower extremity edema Respiratory : Good bilateral air entry, no crackles, wheezes or rhonchi Gastrointestinal: soft, lax, Normal bowel sounds, Non tender Skin : Warm/Dry, ?no tenderness in right elbow with no drainage or erythema, no erythema or warmth Neurological : Alert , No focal deficit Objective Data Current Medications Generic Name Dose Route Start Last Admin Trade Name Joie PRN Reason Stop Dose Admin Acetaminophen 650 mg 04/21/21 14:29 05/01/21 12:23 Acetaminophen 325 Mg Tablet PO 650 mg Q6H PRN Administration Pain, Mild (Pain Scale 1-3) Buspirone HCl 30 mg 04/27/21 09:30 05/05/21 09:19 Buspirone Hcl 10 Mg Tablet PO 30 mg BID EDER Administration Clonidine HCl 0.1 mg 04/21/21 14:34 05/05/21 09:19 Clonidine Hcl 0.1 Mg Tablet PO 0.1 mg TID PRN Administration Opiate Withdrawal Protocol Heparin Sodium (Porcine) 50 0 units 04/29/21 21:00 05/05/21 09:09 units/ Sodium Chloride 5 ml IVFLUSH 50 unit TID EDER Administration Cyclobenzaprine HCl 5 mg 05/01/21 20:16 05/05/21 05:47 Cyclobenzaprine Hcl 5 Mg Tablet PO 5 mg TID PRN Administration back pain Diazepam 5 mg 05/02/21 15:00 05/05/21 09:06 Diazepam 5 Mg Tablet PO 5 mg TID EDER Administration Diclofenac Sodium 50 mg 04/27/21 09:03 05/05/21 09:20 Diclofenac Sodium Delayed Rel 50 Mg Tablet.Dr PO 50 mg TID PRN Administration Pain Enoxaparin Sodium 40 mg 04/21/21 16:00 05/04/21 17:12 Enoxaparin Sodium 40 Mg/0.4 Ml Syringe SUBCUT Not Given Q24H EDER Gabapentin 800 mg 04/21/21 21:00 05/05/21 09:06 Gabapentin 400 Mg Capsule PO 800 mg TID EDER Administration Hydroxyzine HCl 25 mg 04/21/21 17:00 05/05/21 09:06 Hydroxyzine Hcl 25 Mg Tablet PO 25 mg QID EDER Administration Vancomycin HCl 1,000 mg/ 270 mls @ 270 mls/hr 05/02/21 12:00 05/05/21 03:34 Sodium Chloride IV Infused Q12H EDER Infusion Lactic Acid 1 appl 04/29/21 09:46 Ammonium Lactate 12 % Cream 140 Gm Tube TOPICAL BID PRN Dry Skin Protocol Lamotrigine 50 mg 04/22/21 09:00 05/05/21 09:06 Lamotrigine 25 Mg Tablet PO 50 mg DAILY EDER Administration Lorazepam 0.5 mg 05/01/21 10:31 05/05/21 06:07 Lorazepam 0.5 Mg Tablet PO 0.5 mg DAILY PRN Administration anxiety/restlessness Melatonin 6 mg 04/24/21 22:50 04/24/21 23:59 Melatonin 3 Mg Tablet PO 6 mg BEDTIME PRN Administration Insomnia Methadone HCl 55 mg 05/02/21 09:00 05/05/21 09:19 Methadone Hcl 1 Mg/0.1 Ml Oral.Conc PO 55 mg DAILY EDER Administration Metronidazole 250 mg 05/03/21 12:00 05/05/21 05:39 Metronidazole 250 Mg Tablet PO 05/08/21 11:59 250 mg Q8H EDER Administration Morphine Sulfate 2 mg 04/26/21 15:16 05/05/21 10:06 Morphine Sulfate 2 Mg/Ml Cartridge IVPUSH 2 mg Q4H PRN Administration pain Nicotine 14 mg 05/03/21 10:30 05/05/21 09:06 Nicotine 14 Mg Patch.Td24 TRANSDERMA 14 mg DAILY EDER Administration Nicotine Polacrilex 2 mg 04/25/21 01:18 05/04/21 20:24 Nicotine Polacrilex 2 Mg Gum BUCCAL 2 mg Q2H PRN Administration Nicotine Cravings Omeprazole 20 mg 04/21/21 16:30 05/05/21 05:39 Omeprazole 20 Mg Capsule. PO 20 mg BID@0630,1630 EDER Administration Ondansetron HCl 4 mg 04/21/21 14:29 Ondansetron Hcl 4 Mg/2 Ml Vial IVPUSH Q8H PRN Nausea and Vomiting Simethicone 80 mg 05/01/21 10:25 05/05/21 10:10 Simethicone 80 Mg Tab.Chew PO 80 mg QIDWMHS PRN Administration Gas Sodium Chloride 3 ml 04/21/21 16:00 05/05/21 09:05 0.9 % Sodium Chloride Flush 3 Ml Syringe IVFLUSH Not Given QSHIFT EDER Topiramate 200 mg 04/22/21 09:00 05/05/21 09:06 Topiramate 100 Mg Tablet PO 200 mg DAILY EDER Administration Zolpidem Tartrate 5 mg 05/04/21 23:15 05/04/21 23:29 Zolpidem Tartrate 5 Mg Tablet PO 5 mg BEDTIME EDER Administration Labs CBC & Chem 7: 04/29/21 07:49 05/04/21 10:51 Assessment and Plan (1) MRSA bacteremia: Status: Acute Assessment and Plan: 41-year-old female with past medical history of IV drug who initially presented to the hospital on 04/03 with abscess, patient underwent I&D on 04/05 and was being treated for cellulitis/abscess and possible bacteremia but left AMA on 04/06.? She came back 2 days later but she left again AMA on the 20 of April. Went out and report using IV drugs again, came back to the hospital with intoxication and suicidal ideation. re-admitted to the medical floor to continue MRSA bacteremia treatment. ?MRSA bacteremia Repeat blood cultures negative Continue IV vancomycin 1.25 g b.i.d. To finish treatment on 05/18/21 midline placed 04/29/21 monitor labs weekly Suicidal ideation Denies any suicidal ideation at this point Psychiatry input appreciated, not suicidal anymore Opioid abuse and dependence Drug overdose Continue 50 mg methadone Atarax and clonidine as needed discussed with addiction medicine, continue valium 5mg tid, do not use any more breakthrough benzodiazepenes, Vaginal discharge Urinalysis negative for any UTI Recently trichomoniasis, left AMA before finishing treatment To treat with Flagyl for 5 days mood disorder restarted buspar insomnia ambien HCV outpatient follow up DVT prophylaxis Heparin subQ Quality Stroke Does the patient have a stroke diagnosis?: No VTE Prior VTE?: No VTE Risk Level:: Medical - moderate - high VTE Device Contraindication: N/A - Device Ordered VTE Drug Contraindication: Treatment Not Indicated
[2021-05-05] MEDS: Nicotine Polacrilex 2 MG GUM BUCCAL ×2 (15:25→20:43)
--- NOTE | 2021-05-05 15:50 | MHC.CM.PN ---
AT PTS REQUEST, A LETTER WAS FAXED TO [facility] CONFIRMING THE DATES OF HER INPT STAY
[2021-05-05] MEDS: Morphine Sulfate 2 MG/ML CARTRIDGE 1 MG IVPUSH (18:12)
[2021-05-05] MEDS: Simethicone 80 MG TAB.CHEW 160 MG PO (18:13)
[2021-05-05] MEDS: Metoclopramide HCl 10 MG TABLET PO (18:13)
[2021-05-05] MEDS: Zolpidem Tartrate 5 MG TABLET PO (20:42)
[2021-05-05] MEDS: Melatonin 3 MG TABLET 6 MG PO (20:43)
[2021-05-06] VITALS (8 sets, daily range): BP systolic 99–139; BP diastolic 52–78; PULSE 61–72; RESP 14–19; TEMP 36.1–36.6; O2SAT 97–100
[2021-05-06] MEDS: Morphine Sulfate 2 MG/ML CARTRIDGE 1 MG IVPUSH ×6 (01:02→23:49)
[2021-05-06] MEDS: Omeprazole 20 MG CAPSULE.DR PO ×2 (05:02→16:29)
[2021-05-06] MEDS: metroNIDAZOLE 250 MG TABLET PO ×3 (05:02→19:50)
[2021-05-06] MEDS: LORazepam 0.5 MG TABLET PO ×2 (05:36→14:02)
[2021-05-06] MEDS: Cyclobenzaprine HCl 5 MG TABLET PO ×3 (05:36→23:49)
[2021-05-06] MEDS: lamoTRIgine 25 MG TABLET 50 MG PO (09:16)
[2021-05-06] MEDS: diazePAM 5 MG TABLET PO ×3 (09:16→20:31)
[2021-05-06] MEDS: 0.9 % Sodium Chloride Flush 3 ML SYRINGE IVFLUSH ×2 (09:16→15:03)
[2021-05-06] MEDS: Gabapentin 400 MG CAPSULE 800 MG PO ×3 (09:16→20:30)
[2021-05-06] MEDS: Aspirin 81 MG TAB.CHEW PO (09:17)
[2021-05-06] MEDS: busPIRone HCl 10 MG TABLET 30 MG PO ×2 (09:17→20:31)
[2021-05-06] MEDS: hydrOXYzine HCL 25 MG TABLET PO ×4 (09:17→20:31)
[2021-05-06] MEDS: Topiramate 100 MG TABLET 200 MG PO (09:20)
[2021-05-06] MEDS: Nicotine 14 MG PATCH.TD24 TRANSDERMA (09:21)
[2021-05-06] MEDS: Heparin Sodium,Porcine Flush 50 UNITS, 0.9 % Sodium Chloride Flush 5 ML IVFLUSH ×3 (09:22→20:33)
[2021-05-06] MEDS: Nicotine Polacrilex 2 MG GUM BUCCAL ×4 (09:41→20:31)
[2021-05-06] MEDS: Diclofenac Sodium Delayed Rel 50 MG TABLET.DR PO ×2 (09:41→16:29)
[2021-05-06] MEDS: cloNIDine HCL 0.1 MG TABLET PO ×2 (09:41→16:30)
[2021-05-06 11:55] LABS: Creatinine Clr Calc Pharmacy 75.7; Estimated Glomerular Filt Rate > 60
[2021-05-06 12:08] LABS: Vancomycin Trough 12.2 mcg/mL (10.0-20.0)
[2021-05-06] MEDS: vancomycin HCL 1,000 MG in 0.9 % Sodium Chloride 250 ML 270 MG IV ×2 (12:46→23:50)
--- NOTE | 2021-05-06 12:46 | HO.PM.IMPN ---
Subjective Subjective Date of Service: 05/06/21 Interval History: The patient was seen and evaluated this morning Laying in bed, comfortable overall but anxious Denies any fever, chills or shortness of breath No reported other overnight events. Systemic review: No fever, chills but has anxiety a and bloating No chest pain, palpitation No shortness of breath or coughing No abdominal pain, nausea or vomiting No urinary symptoms Physical Exam Vital Signs: Vital Signs: Last Vital Signs Temp 97.7 F 05/06/21 08:00 Pulse 72 05/06/21 09:41 Resp 18 05/06/21 08:00 BP 111/74 05/06/21 09:41 Pulse Ox 100 05/06/21 08:00 Body Mass Index 29.3 Const: Other: Constitutional : Alert , not in distress, get mildly anxious upon waking up Neck : Normal inspection, Supple Cardiovascular : RRR, S1 S2, no lower extremity edema Respiratory : Good bilateral air entry, no crackles, wheezes or rhonchi Gastrointestinal: soft, lax, Normal bowel sounds, Non tender Skin : Warm/Dry, ?no tenderness in right elbow with no drainage or erythema, no erythema or warmth Neurological : Alert , No focal deficit Objective Data Current Medications Generic Name Dose Route Start Last Admin Trade Name Freq PRN Reason Stop Dose Admin Acetaminophen 650 mg 04/21/21 14:29 05/01/21 12:23 Acetaminophen 325 Mg Tablet PO 650 mg Q6H PRN Administration Pain, Mild (Pain Scale 1-3) Aspirin 81 mg 05/06/21 09:00 05/06/21 09:17 Aspirin 81 Mg Tab.Chew PO 81 mg DAILY EDER Administration Buspirone HCl 30 mg 04/27/21 09:30 05/06/21 09:17 Buspirone Hcl 10 Mg Tablet PO 30 mg BID EDER Administration Clonidine HCl 0.1 mg 04/21/21 14:34 05/06/21 09:41 Clonidine Hcl 0.1 Mg Tablet PO 0.1 mg TID PRN Administration Opiate Withdrawal Protocol Heparin Sodium (Porcine) 50 0 units 04/29/21 21:00 05/06/21 09:22 units/ Sodium Chloride 5 ml IVFLUSH 50 unit TID EDER Administration Cyclobenzaprine HCl 5 mg 05/01/21 20:16 05/06/21 05:36 Cyclobenzaprine Hcl 5 Mg Tablet PO 5 mg TID PRN Administration back pain Diazepam 5 mg 05/02/21 15:00 05/06/21 09:16 Diazepam 5 Mg Tablet PO 5 mg TID EDER Administration Diclofenac Sodium 50 mg 04/27/21 09:03 05/06/21 09:41 Diclofenac Sodium Delayed Rel 50 Mg Tablet.Dr PO 50 mg TID PRN Administration Pain Enoxaparin Sodium 40 mg 04/21/21 16:00 05/05/21 15:27 Enoxaparin Sodium 40 Mg/0.4 Ml Syringe SUBCUT Not Given Q24H [facility] Gabapentin 800 mg 04/21/21 21:00 05/06/21 09:16 Gabapentin 400 Mg Capsule PO 800 mg TID EDER Administration Hydroxyzine HCl 25 mg 04/21/21 17:00 05/06/21 09:17 Hydroxyzine Hcl 25 Mg Tablet PO 25 mg QID EDER Administration Hydroxyzine HCl 50 mg 05/05/21 17:42 Hydroxyzine Hcl 50 Mg Tablet PO BID PRN anxiety Vancomycin HCl 1,000 mg/ 270 mls @ 270 mls/hr 05/02/21 12:00 05/06/21 01:05 Sodium Chloride IV Infused Q12H [facility] Infusion Lactic Acid 1 appl 04/29/21 09:46 Ammonium Lactate 12 % Cream 140 Gm Tube TOPICAL BID PRN Dry Skin Protocol Lamotrigine 50 mg 04/22/21 09:00 05/06/21 09:16 Lamotrigine 25 Mg Tablet PO 50 mg DAILY EDER Administration Melatonin 6 mg 04/24/21 22:50 05/05/21 20:43 Melatonin 3 Mg Tablet PO 6 mg BEDTIME PRN Administration Insomnia Methadone HCl 55 mg 05/02/21 09:00 05/06/21 09:21 Methadone Hcl 1 Mg/0.1 Ml Oral.Conc PO 55 mg DAILY [facility] Administration Metronidazole 250 mg 05/03/21 12:00 05/06/21 05:02 Metronidazole 250 Mg Tablet PO 05/08/21 11:59 250 mg Q8H EDER Administration Morphine Sulfate 1 mg 05/05/21 17:45 05/06/21 09:24 Morphine Sulfate 2 Mg/Ml Cartridge IVPUSH 1 mg Q4H PRN Administration Pain, Severe (Pain Scale 7-10) Protocol Nicotine 14 mg 05/03/21 10:30 05/06/21 09:21 Nicotine 14 Mg Patch.Td24 TRANSDERMA 14 mg DAILY EDER Administration Nicotine Polacrilex 2 mg 04/25/21 01:18 05/06/21 09:41 Nicotine Polacrilex 2 Mg Gum BUCCAL 2 mg Q2H PRN Administration Nicotine Cravings Omeprazole 20 mg 04/21/21 16:30 05/06/21 05:02 Omeprazole 20 Mg Capsule. PO 20 mg BID@0630,1630 EDER Administration Ondansetron HCl 4 mg 04/21/21 14:29 Ondansetron Hcl 4 Mg/2 Ml Vial IVPUSH Q8H PRN Nausea and Vomiting Propranolol HCl 20 mg 05/05/21 17:42 Propranolol Hcl 20 Mg Tablet PO Q6H PRN Anxiety Protocol Simethicone 80 mg 05/01/21 10:25 05/05/21 15:24 Simethicone 80 Mg Tab.Chew PO 80 mg QIDWMHS PRN Administration Gas Sodium Chloride 3 ml 04/21/21 16:00 05/06/21 09:16 0.9 % Sodium Chloride Flush 3 Ml Syringe IVFLUSH 3 ml QSHIFT EDER Administration Topiramate 200 mg 04/22/21 09:00 05/06/21 09:20 Topiramate 100 Mg Tablet PO 200 mg DAILY EDER Administration Zolpidem Tartrate 5 mg 05/04/21 23:15 05/05/21 20:42 Zolpidem Tartrate 5 Mg Tablet PO 5 mg BEDTIME EDER Administration Zolpidem Tartrate 5 mg 05/05/21 17:42 Zolpidem Tartrate 5 Mg Tablet PO BEDTIME PRN Insomnia Labs CBC & Chem 7: 04/29/21 07:49 05/06/21 11:19 Labs: Laboratory Results - last 24 hr 05/06/21 05/06/21 11:19 11:19 Estim Creat Clear Calc 75.7 Estimated GFR > 60 Vancomycin Trough 12.2 Assessment and Plan (1) MRSA bacteremia: Status: Acute Assessment and Plan: 41-year-old female with past medical history of IV drug who initially presented to the hospital on 04/03 with abscess, patient underwent I&D on 04/05 and was being treated for cellulitis/abscess and possible bacteremia but left AMA on 04/06.? She came back 2 days later but she left again AMA on the 20 of April. Went out and report using IV drugs again, came back to the hospital with intoxication and suicidal ideation. re-admitted to the medical floor to continue MRSA bacteremia treatment. ?MRSA bacteremia Repeat blood cultures negative Continue IV vancomycin 1.25 g b.i.d. To finish treatment on 05/18/21 midline placed 04/29/21 monitor labs weekly Suicidal ideation Denies any suicidal ideation at this point Psychiatry input appreciated, not suicidal anymore Opioid abuse and dependence Drug overdose Continue 50 mg methadone Atarax and clonidine as needed discussed with addiction medicine, continue valium 5mg tid, do not use any more breakthrough benzodiazepenes, Vaginal discharge Urinalysis negative for any UTI Recently trichomoniasis, left AMA before finishing treatment To treat with Flagyl for 5 days mood disorder restarted buspar insomnia ambien HCV outpatient follow up DVT prophylaxis Heparin subQ Quality Stroke Does the patient have a stroke diagnosis?: No VTE Prior VTE?: No VTE Risk Level:: Medical - moderate - high VTE Device Contraindication: N/A - Device Ordered VTE Drug Contraindication: Treatment Not Indicated
--- NOTE | 2021-05-06 13:27 | MHC.CM.PN ---
[facility] UPDATED IN [facility]. OF THIS NOTE, NO FEMALE BED HAS BEEN MADE AVAILABLE.
--- NOTE | 2021-05-06 13:29 | MHC.CLN ---
NUTRITION/DIET PATIENT EATING 100% MOST MEALS. NO GLUTEN ALLERGY OR DX OF CELIAC TO SUPPORT GLUTEN FREE DIET. CHANGED DIET TO REGULAR DIET.
[2021-05-06] MEDS: Loratadine 10 MG TABLET PO (15:02)
[2021-05-06] MEDS: Multivitamin TABLET 1 TAB PO (15:03)
[2021-05-06] MEDS: Simethicone 80 MG TAB.CHEW PO (15:05)
[2021-05-06] MEDS: Acetaminophen 325 MG TABLET 650 MG PO (17:37)
[2021-05-06] MEDS: Zolpidem Tartrate 5 MG TABLET PO (20:31)
[2021-05-07 04:00] VITALS: RESP 16
[2021-05-07] MEDS: Omeprazole 20 MG CAPSULE.DR PO ×2 (05:10→16:57)
[2021-05-07] MEDS: metroNIDAZOLE 250 MG TABLET PO ×3 (05:10→20:51)
[2021-05-07] MEDS: Morphine Sulfate 2 MG/ML CARTRIDGE 1 MG IVPUSH ×4 (05:19→21:01)
[2021-05-07] MEDS: Diclofenac Sodium Delayed Rel 50 MG TABLET.DR PO ×2 (05:43→16:57)
[2021-05-07] MEDS: LORazepam 0.5 MG TABLET PO (05:55)
[2021-05-07 06:28] LABS: Anion Gap 10 (12-20); Blood Urea Nitrogen 15 mg/dL (9-16); Calcium 9.3 mg/dL (8.4-10.2); Carbon Dioxide 22 mmol/L (22-29); Chloride 111 mmol/L (96-108); Estimated Glomerular Filt Rate > 60; Glucose Random 124 mg/dL (60-115); Potassium 4.3 mmol/L (3.3-5.1); Sodium 139 mmol/L (135-145)
[2021-05-07] MEDS: lamoTRIgine 25 MG TABLET 50 MG PO (07:58)
[2021-05-07] MEDS: hydrOXYzine HCL 25 MG TABLET PO ×4 (07:59→20:51)
[2021-05-07] MEDS: Gabapentin 400 MG CAPSULE 800 MG PO ×3 (07:59→20:51)
[2021-05-07] MEDS: busPIRone HCl 10 MG TABLET 30 MG PO ×2 (07:59→20:50)
[2021-05-07] MEDS: diazePAM 5 MG TABLET PO ×2 (07:59→14:05)
[2021-05-07] MEDS: Loratadine 10 MG TABLET PO (07:59)
[2021-05-07] MEDS: Multivitamin TABLET 1 TAB PO (07:59)
[2021-05-07] MEDS: Aspirin 81 MG TAB.CHEW PO (07:59)
[2021-05-07 08:00] VITALS: BP 120/64; PULSE 74; RESP 18; TEMP 36.6; O2SAT 98
[2021-05-07] MEDS: 0.9 % Sodium Chloride Flush 3 ML SYRINGE IVFLUSH ×2 (08:00→14:06)
[2021-05-07] MEDS: Nicotine 14 MG PATCH.TD24 TRANSDERMA (08:00)
[2021-05-07] MEDS: Heparin Sodium,Porcine Flush 50 UNITS, 0.9 % Sodium Chloride Flush 5 ML IVFLUSH ×2 (08:00→14:05)
[2021-05-07] MEDS: cloNIDine HCL 0.1 MG TABLET PO ×2 (08:05→16:58)
[2021-05-07] MEDS: Cyclobenzaprine HCl 5 MG TABLET PO ×2 (08:05→16:58)
[2021-05-07] MEDS: Topiramate 100 MG TABLET 200 MG PO (08:40)
[2021-05-07] MEDS: Bismuth Subsalicylate 262 MG TABLET PO ×2 (10:18→12:41)
[2021-05-07] MEDS: Propranolol HCL 20 MG TABLET PO (10:18)
[2021-05-07] MEDS: Nicotine Polacrilex 2 MG GUM BUCCAL ×2 (10:18→12:41)
--- NOTE | 2021-05-07 11:32 | HO.PM.IMPN ---
Subjective Subjective Date of Service: 05/07/21 Interval History: The patient was seen and evaluated this morning Laying in bed, comfortable overall but increased anxiety level over the last few days Denies any fever, chills or shortness of breath No reported other overnight events. Systemic review: No fever, chills but has anxiety a and bloating No chest pain, palpitation No shortness of breath or coughing No abdominal pain, nausea or vomiting No urinary symptoms Physical Exam Vital Signs: Vital Signs: Last Vital Signs Temp 97.9 F 05/07/21 08:00 Pulse 74 05/07/21 08:00 Resp 18 05/07/21 08:00 BP 120/64 05/07/21 08:00 Pulse Ox 98 05/07/21 08:00 Body Mass Index 29.3 Const: Other: Constitutional : Alert , not in distress, get mildly anxious upon waking up Neck : Normal inspection, Supple Cardiovascular : RRR, S1 S2, no lower extremity edema Respiratory : Good bilateral air entry, no crackles, wheezes or rhonchi Gastrointestinal: soft, lax, Normal bowel sounds, Non tender Skin : Warm/Dry, ?no tenderness in right elbow with no drainage or erythema, no erythema or warmth Neurological : Alert , No focal deficit Objective Data Current Medications Generic Name Dose Route Start Last Admin Trade Name Freq PRN Reason Stop Dose Admin Acetaminophen 650 mg 04/21/21 14:29 05/06/21 17:37 Acetaminophen 325 Mg Tablet PO 650 mg Q6H PRN Administration Pain, Mild (Pain Scale 1-3) Aspirin 81 mg 05/06/21 09:00 05/07/21 07:59 Aspirin 81 Mg Tab.Chew PO 81 mg DAILY EDER Administration Bismuth Subsalicylate 262 mg 05/06/21 12:55 05/07/21 10:18 Bismuth Subsalicylate 262 Mg Tablet PO 262 mg QID PRN Administration Indigestion Buspirone HCl 30 mg 04/27/21 09:30 05/07/21 07:59 Buspirone Hcl 10 Mg Tablet PO 30 mg BID EDER Administration Clonidine HCl 0.1 mg 04/21/21 14:34 05/07/21 08:05 Clonidine Hcl 0.1 Mg Tablet PO 0.1 mg TID PRN Administration Opiate Withdrawal Protocol Heparin Sodium (Porcine) 50 0 units 04/29/21 21:00 05/07/21 08:00 units/ Sodium Chloride 5 ml IVFLUSH 50 unit TID EDER Administration Cyclobenzaprine HCl 5 mg 05/01/21 20:16 05/07/21 08:05 Cyclobenzaprine Hcl 5 Mg Tablet PO 5 mg TID PRN Administration back pain Diazepam 5 mg 05/02/21 15:00 05/07/21 07:59 Diazepam 5 Mg Tablet PO 5 mg TID EDER Administration Diclofenac Sodium 50 mg 04/27/21 09:03 05/07/21 05:43 Diclofenac Sodium Delayed Rel 50 Mg Tablet.Dr PO 50 mg TID PRN Administration Pain Enoxaparin Sodium 40 mg 04/21/21 16:00 05/06/21 15:04 Enoxaparin Sodium 40 Mg/0.4 Ml Syringe SUBCUT Not Given Q24H [facility]ER Gabapentin 800 mg 04/21/21 21:00 05/07/21 07:59 Gabapentin 400 Mg Capsule PO 800 mg TID EDER Administration Hydroxyzine HCl 25 mg 04/21/21 17:00 05/07/21 07:59 Hydroxyzine Hcl 25 Mg Tablet PO 25 mg QID EDER Administration Hydroxyzine HCl 50 mg 05/05/21 17:42 Hydroxyzine Hcl 50 Mg Tablet PO BID PRN anxiety Vancomycin HCl 1,000 mg/ 270 mls @ 270 mls/hr 05/02/21 12:00 05/07/21 01:52 Sodium Chloride IV Infused Q12H [facility] Infusion Lactic Acid 1 appl 04/29/21 09:46 Ammonium Lactate 12 % Cream 140 Gm Tube TOPICAL BID PRN Dry Skin Protocol Lamotrigine 50 mg 04/22/21 09:00 05/07/21 07:58 Lamotrigine 25 Mg Tablet PO 50 mg DAILY EDER Administration Loratadine 10 mg 05/06/21 13:30 05/07/21 07:59 Loratadine 10 Mg Tablet PO 10 mg DAILY EDER Administration Melatonin 6 mg 04/24/21 22:50 05/05/21 20:43 Melatonin 3 Mg Tablet PO 6 mg BEDTIME PRN Administration Insomnia Methadone HCl 55 mg 05/02/21 09:00 05/07/21 08:00 Methadone Hcl 1 Mg/0.1 Ml Oral.Conc PO 55 mg DAILY EDER Administration Metronidazole 250 mg 05/03/21 12:00 05/07/21 05:10 Metronidazole 250 Mg Tablet PO 05/08/21 11:59 250 mg Q8H EDER Administration Morphine Sulfate 1 mg 05/05/21 17:45 05/07/21 09:33 Morphine Sulfate 2 Mg/Ml Cartridge IVPUSH 1 mg Q4H PRN Administration Pain, Severe (Pain Scale 7-10) Protocol Multivitamins/Vitamin C 1 tab 05/06/21 13:30 05/07/21 07:59 Multivitamin Tablet PO 1 tab DAILY EDER Administration Nicotine 14 mg 05/03/21 10:30 05/07/21 08:00 Nicotine 14 Mg Patch.Td24 TRANSDERMA 14 mg DAILY EDER Administration Nicotine Polacrilex 2 mg 04/25/21 01:18 05/07/21 10:18 Nicotine Polacrilex 2 Mg Gum BUCCAL 2 mg Q2H PRN Administration Nicotine Cravings Omeprazole 20 mg 04/21/21 16:30 05/07/21 05:10 Omeprazole 20 Mg Capsule. PO 20 mg BID@0630,1630 EDER Administration Ondansetron HCl 4 mg 04/21/21 14:29 Ondansetron Hcl 4 Mg/2 Ml Vial IVPUSH Q8H PRN Nausea and Vomiting Propranolol HCl 20 mg 05/05/21 17:42 05/07/21 10:18 Propranolol Hcl 20 Mg Tablet PO 20 mg Q6H PRN Administration Anxiety Protocol Simethicone 80 mg 05/01/21 10:25 05/06/21 15:05 Simethicone 80 Mg Tab.Chew PO 80 mg QIDWMHS PRN Administration Gas Sodium Chloride 3 ml 04/21/21 16:00 05/07/21 08:00 0.9 % Sodium Chloride Flush 3 Ml Syringe IVFLUSH 3 ml QSHIFT EDER Administration Topiramate 200 mg 04/22/21 09:00 05/07/21 08:40 Topiramate 100 Mg Tablet PO 200 mg DAILY EDER Administration Zolpidem Tartrate 5 mg 05/04/21 23:15 05/06/21 20:31 Zolpidem Tartrate 5 Mg Tablet PO 5 mg BEDTIME EDER Administration Zolpidem Tartrate 5 mg 05/05/21 17:42 Zolpidem Tartrate 5 Mg Tablet PO BEDTIME PRN Insomnia Labs CBC & Chem 7: 04/29/21 07:49 05/07/21 06:01 Labs: Laboratory Results - last 24 hr 05/06/21 05/06/21 05/07/21 11:19 11:19 06:01 Anion Gap 10 L Estim Creat Clear Calc 75.7 79.0 Estimated GFR > 60 > 60 Random Glucose 124 H Calcium 9.3 Vancomycin Trough 12.2 Assessment and Plan (1) Bipolar 1 disorder, depressed: Status: Acute (2) MRSA bacteremia: Status: Acute Assessment and Plan: 41-year-old female with past medical history of IV drug who initially presented to the hospital on 04/03 with abscess, patient underwent I&D on 04/05 and was being treated for cellulitis/abscess and possible bacteremia but left AMA on 04/06.? She came back 2 days later but she left again AMA on the 20 of April. Went out and report using IV drugs again, came back to the hospital with intoxication and suicidal ideation. re-admitted to the medical floor to continue MRSA bacteremia treatment. ?MRSA bacteremia Repeat blood cultures negative Continue IV vancomycin 1.25 g b.i.d. To finish treatment on 05/18/21 midline placed 04/29/21 monitor labs as needed Suicidal ideation Denies any suicidal ideation at this point Psychiatry input appreciated, not suicidal anymore Opioid abuse and dependence Drug overdose Continue 50 mg methadone Atarax and clonidine as needed discussed with addiction medicine, continue valium 5mg tid, do not use any more breakthrough benzodiazepenes, Vaginal discharge Urinalysis negative for any UTI Recently trichomoniasis, left AMA before finishing treatment To treat with Flagyl for 5 days mood disorder restarted buspar insomnia ambien HCV outpatient follow up DVT prophylaxis Heparin subQ Quality Stroke Does the patient have a stroke diagnosis?: No VTE Prior VTE?: No VTE Risk Level:: Medical - moderate - high VTE Device Contraindication: N/A - Device Ordered VTE Drug Contraindication: Treatment Not Indicated
[2021-05-07 12:00] VITALS: BP 116/57; PULSE 63; RESP 17; TEMP 36.2; O2SAT 99
[2021-05-07] MEDS: vancomycin HCL 1,000 MG in 0.9 % Sodium Chloride 250 ML 270 MG IV (12:39)
[2021-05-07] MEDS: Simethicone 80 MG TAB.CHEW PO (12:41)
[2021-05-07 15:44] VITALS: BP 128/67; PULSE 69; RESP 20; TEMP 36.4; O2SAT 100
[2021-05-07 19:30] VITALS: BP 149/84; PULSE 73; RESP 20; TEMP 37.6; O2SAT 97
[2021-05-07] MEDS: Zolpidem Tartrate 5 MG TABLET PO (20:51)
[2021-05-08] VITALS (8 sets, daily range): BP systolic 99–149; BP diastolic 48–84; PULSE 62–73; RESP 16–20; TEMP 36.1–36.7; O2SAT 98–99
[2021-05-08] MEDS: Cyclobenzaprine HCl 5 MG TABLET PO ×3 (00:32→14:32)
[2021-05-08] MEDS: cloNIDine HCL 0.1 MG TABLET PO ×3 (00:32→21:02)
[2021-05-08] MEDS: vancomycin HCL 1,000 MG in 0.9 % Sodium Chloride 250 ML 270 MG IV ×2 (00:44→12:30)
[2021-05-08] MEDS: diazePAM 5 MG TABLET PO ×4 (00:44→20:54)
[2021-05-08] MEDS: Morphine Sulfate 2 MG/ML CARTRIDGE 1 MG IVPUSH ×4 (00:56→18:42)
[2021-05-08] MEDS: Omeprazole 20 MG CAPSULE.DR PO ×2 (05:30→16:53)
[2021-05-08] MEDS: metroNIDAZOLE 250 MG TABLET PO (05:30)
[2021-05-08] MEDS: methADONE HCl 20 MG/2 ML ORAL.CONC 55 MG PO (10:20)
[2021-05-08] MEDS: hydrOXYzine HCL 25 MG TABLET PO ×4 (10:21→20:54)
[2021-05-08] MEDS: Gabapentin 400 MG CAPSULE 800 MG PO ×3 (10:21→20:54)
[2021-05-08] MEDS: busPIRone HCl 10 MG TABLET 30 MG PO ×2 (10:24→20:53)
[2021-05-08] MEDS: Aspirin 81 MG TAB.CHEW PO (10:24)
[2021-05-08] MEDS: Nicotine 14 MG PATCH.TD24 TRANSDERMA (10:24)
[2021-05-08] MEDS: 0.9 % Sodium Chloride Flush 3 ML SYRINGE IVFLUSH (10:24)
[2021-05-08] MEDS: Loratadine 10 MG TABLET PO (10:25)
[2021-05-08] MEDS: Topiramate 100 MG TABLET 200 MG PO (10:25)
[2021-05-08] MEDS: Multivitamin TABLET 1 TAB PO (10:25)
[2021-05-08] MEDS: lamoTRIgine 25 MG TABLET 50 MG PO (10:26)
[2021-05-08] MEDS: Diclofenac Sodium Delayed Rel 50 MG TABLET.DR PO (10:35)
[2021-05-08] MEDS: Nicotine Polacrilex 2 MG GUM BUCCAL ×4 (10:36→18:48)
[2021-05-08 11:26] LABS: Creatinine Clr Calc Pharmacy 86.1; Estimated Glomerular Filt Rate > 60
[2021-05-08 11:34] LABS: Vancomycin Trough 13.7 mcg/mL (10.0-20.0)
--- NOTE | 2021-05-08 12:23 | P.PNIM_ITS ---
Subjective Subjective Date of Service: 05/08/21 Interval History: anxious Constitutional Constitutional: Reports no additional constitutional complaints Eyes Eyes: Reports no additional eye complaints Physical Exam Vital Signs: Vital Signs: Last Vital Signs Temp 97.0 F 05/08/21 08:00 Pulse 63 05/08/21 08:00 Resp 17 05/08/21 08:00 BP 110/57 L 05/08/21 08:00 Pulse Ox 98 05/08/21 08:00 Body Mass Index 29.3 General: AO X 3, no acute distress Resp: CTA bilateral CVS: S1,S2,RRR GI: soft, non tender, non distended Neuro: motor grossly intact Psych: appropriate affect Objective Data Current Medications Generic Name Dose Route Start Last Admin Trade Name Freq PRN Reason Stop Dose Admin Acetaminophen 650 mg 04/21/21 14:29 05/06/21 17:37 Acetaminophen 325 Mg Tablet PO 650 mg Q6H PRN Administration Pain, Mild (Pain Scale 1-3) Aspirin 81 mg 05/06/21 09:00 05/08/21 10:24 Aspirin 81 Mg Tab.Chew PO 81 mg DAILY EDER Administration Bismuth Subsalicylate 262 mg 05/06/21 12:55 05/07/21 12:41 Bismuth Subsalicylate 262 Mg Tablet PO 262 mg QID PRN Administration Indigestion Buspirone HCl 30 mg 04/27/21 09:30 05/08/21 10:24 Buspirone Hcl 10 Mg Tablet PO 30 mg BID EDER Administration Clonidine HCl 0.1 mg 04/21/21 14:34 05/08/21 10:36 Clonidine Hcl 0.1 Mg Tablet PO 0.1 mg TID PRN Administration Opiate Withdrawal Protocol Heparin Sodium (Porcine) 50 0 units 04/29/21 21:00 05/07/21 21:01 units/ Sodium Chloride 5 ml IVFLUSH Not Given TID EDER Cyclobenzaprine HCl 5 mg 05/01/21 20:16 05/08/21 10:36 Cyclobenzaprine Hcl 5 Mg Tablet PO 5 mg TID PRN Administration back pain Diazepam 5 mg 05/08/21 09:35 05/08/21 10:25 Diazepam 5 Mg Tablet PO 5 mg TID EDER Administration Diclofenac Sodium 50 mg 04/27/21 09:03 05/08/21 10:35 Diclofenac Sodium Delayed Rel 50 Mg Tablet.Dr PO 50 mg TID PRN Administration Pain Enoxaparin Sodium 40 mg 04/21/21 16:00 05/07/21 16:58 Enoxaparin Sodium 40 Mg/0.4 Ml Syringe SUBCUT Not Given Q24H [facility] Gabapentin 800 mg 04/21/21 21:00 05/08/21 10:21 Gabapentin 400 Mg Capsule PO 800 mg TID EDER Administration Hydroxyzine HCl 25 mg 04/21/21 17:00 05/08/21 10:21 Hydroxyzine Hcl 25 Mg Tablet PO 25 mg QID EDER Administration Hydroxyzine HCl 50 mg 05/05/21 17:42 Hydroxyzine Hcl 50 Mg Tablet PO BID PRN anxiety Vancomycin HCl 1,000 mg/ 270 mls @ 270 mls/hr 05/02/21 12:00 05/08/21 01:53 Sodium Chloride IV Infused Q12H [facility] Infusion Lactic Acid 1 appl 04/29/21 09:46 Ammonium Lactate 12 % Cream 140 Gm Tube TOPICAL BID PRN Dry Skin Protocol Lamotrigine 50 mg 04/22/21 09:00 05/08/21 10:26 Lamotrigine 25 Mg Tablet PO 50 mg DAILY [facility] Administration Loratadine 10 mg 05/06/21 13:30 05/08/21 10:25 Loratadine 10 Mg Tablet PO 10 mg DAILY EDER Administration Melatonin 6 mg 04/24/21 22:50 05/05/21 20:43 Melatonin 3 Mg Tablet PO 6 mg BEDTIME PRN Administration Insomnia Methadone HCl 55 mg 05/08/21 09:00 05/08/21 10:20 Methadone Hcl 20 Mg/2 Ml Oral.Conc PO 55 mg DAILY EEDR Administration Morphine Sulfate 1 mg 05/05/21 17:45 05/08/21 10:26 Morphine Sulfate 2 Mg/Ml Cartridge IVPUSH 1 mg Q4H PRN Administration Pain, Severe (Pain Scale 7-10) Protocol Multivitamins/Vitamin C 1 tab 05/06/21 13:30 05/08/21 10:25 Multivitamin Tablet PO 1 tab DAILY [facility] Administration Nicotine 14 mg 05/03/21 10:30 05/08/21 10:24 Nicotine 14 Mg Patch.Td24 TRANSDERMA 14 mg DAILY EDER Administration Nicotine Polacrilex 2 mg 04/25/21 01:18 05/08/21 10:36 Nicotine Polacrilex 2 Mg Gum BUCCAL 2 mg Q2H PRN Administration Nicotine Cravings Omeprazole 20 mg 04/21/21 16:30 05/08/21 05:30 Omeprazole 20 Mg Capsule. PO 20 mg BID@0630,1630 EDER Administration Ondansetron HCl 4 mg 04/21/21 14:29 Ondansetron Hcl 4 Mg/2 Ml Vial IVPUSH Q8H PRN Nausea and Vomiting Propranolol HCl 20 mg 05/05/21 17:42 05/07/21 10:18 Propranolol Hcl 20 Mg Tablet PO 20 mg Q6H PRN Administration Anxiety Protocol Simethicone 80 mg 05/01/21 10:25 05/07/21 12:41 Simethicone 80 Mg Tab.Chew PO 80 mg QIDWMHS PRN Administration Gas Sodium Chloride 3 ml 04/21/21 16:00 05/08/21 10:24 0.9 % Sodium Chloride Flush 3 Ml Syringe IVFLUSH 3 ml QSHIFT EDER Administration Topiramate 200 mg 04/22/21 09:00 05/08/21 10:25 Topiramate 100 Mg Tablet PO 200 mg DAILY EDER Administration Zolpidem Tartrate 5 mg 05/04/21 23:15 05/07/21 20:51 Zolpidem Tartrate 5 Mg Tablet PO 5 mg BEDTIME EDER Administration Zolpidem Tartrate 5 mg 05/05/21 17:42 Zolpidem Tartrate 5 Mg Tablet PO BEDTIME PRN Insomnia Labs CBC & Chem 7: 04/29/21 07:49 05/08/21 10:57 Labs: Laboratory Results - last 24 hr 05/08/21 05/08/21 10:57 10:57 Estim Creat Clear Calc 86.1 Estimated GFR > 60 Vancomycin Trough 13.7 Assessment and Plan (1) Bipolar 1 disorder, depressed: Status: Acute (2) MRSA bacteremia: Status: Acute Assessment and Plan: 41-year-old female with past medical history of IV drug who initially presented to the hospital on 04/03 with abscess, patient underwent I&D on 04/05 and was being treated for cellulitis/abscess and possible bacteremia but left AMA on 04/06.? She came back 2 days later but she left again AMA on the 20 of April. Went out and report using IV drugs again, came back to the hospital with intoxication and suicidal ideation. re-admitted to the medical floor to continue MRSA bacteremia treatment. ?MRSA bacteremia Repeat blood cultures negative Continue IV vancomycin 1.25 g b.i.d. To finish treatment on 05/16/21 (initially 05/18, ok to end early for placement) midline placed 04/29/21 monitor labs as needed Suicidal ideation Denies any suicidal ideation at this point Psychiatry input appreciated, not suicidal anymore Opioid abuse and dependence Drug overdose Continue 50 mg methadone Atarax and clonidine as needed continue valium 5mg tid Vaginal discharge Urinalysis negative for any UTI Recently trichomoniasis, left AMA before finishing treatment To treat with Flagyl for 7 days mood disorder restarted buspar insomnia ambien HCV outpatient follow up DVT prophylaxis Heparin subQ Quality Stroke Does the patient have a stroke diagnosis?: No VTE Prior VTE?: No VTE Risk Level:: Medical - moderate - high VTE Device Contraindication: N/A - Device Ordered VTE Drug Contraindication: Treatment Not Indicated
[2021-05-08] MEDS: Heparin Sodium,Porcine Flush 50 UNITS, 0.9 % Sodium Chloride Flush 5 ML IVFLUSH ×3 (12:29→20:52)
[2021-05-08] MEDS: Simethicone 80 MG TAB.CHEW PO (12:30)
--- NOTE | 2021-05-08 15:14 | MHC.CM.PN ---
PATIENT UPDATES SENT TO [place] [facility] [employer] OF THIS NOTE, NO FEMALE BED AVAILABLE. [facility] [place] [employer] ([phone]) AWARE
[2021-05-08] MEDS: Zolpidem Tartrate 5 MG TABLET PO (20:54)
[2021-05-09] VITALS (10 sets, daily range): BP systolic 105–136; BP diastolic 45–63; PULSE 65–82; RESP 14–18; TEMP 36.1–36.5; O2SAT 98–99
[2021-05-09] MEDS: vancomycin HCL 1,000 MG in 0.9 % Sodium Chloride 250 ML 270 MG IV ×2 (01:01→11:36)
[2021-05-09] MEDS: Morphine Sulfate 2 MG/ML CARTRIDGE 1 MG IVPUSH ×4 (01:02→14:28)
[2021-05-09] MEDS: Nicotine Polacrilex 2 MG GUM BUCCAL ×4 (01:02→14:24)
[2021-05-09] MEDS: Cyclobenzaprine HCl 5 MG TABLET PO ×3 (01:02→17:38)
[2021-05-09] MEDS: 0.9 % Sodium Chloride Flush 3 ML SYRINGE IVFLUSH ×2 (01:04→10:31)
[2021-05-09] MEDS: Omeprazole 20 MG CAPSULE.DR PO ×2 (06:25→17:38)
[2021-05-09] MEDS: Diclofenac Sodium Delayed Rel 50 MG TABLET.DR PO ×2 (06:46→14:23)
[2021-05-09] MEDS: Multivitamin TABLET 1 TAB PO (08:27)
[2021-05-09] MEDS: Gabapentin 400 MG CAPSULE 800 MG PO ×3 (08:28→20:21)
[2021-05-09] MEDS: Aspirin 81 MG TAB.CHEW PO (08:28)
[2021-05-09] MEDS: hydrOXYzine HCL 25 MG TABLET PO ×4 (08:29→20:20)
[2021-05-09] MEDS: Topiramate 100 MG TABLET 200 MG PO (08:29)
[2021-05-09] MEDS: busPIRone HCl 10 MG TABLET 30 MG PO ×2 (08:29→20:20)
[2021-05-09] MEDS: lamoTRIgine 25 MG TABLET 50 MG PO (08:30)
[2021-05-09] MEDS: Nicotine 14 MG PATCH.TD24 TRANSDERMA (08:30)
[2021-05-09] MEDS: diazePAM 5 MG TABLET PO ×3 (08:30→20:21)
[2021-05-09] MEDS: Loratadine 10 MG TABLET PO (08:30)
[2021-05-09] MEDS: methADONE HCl 20 MG/2 ML ORAL.CONC 55 MG PO (08:30)
[2021-05-09] MEDS: cloNIDine HCL 0.1 MG TABLET PO ×2 (08:30→17:38)
[2021-05-09] MEDS: Heparin Sodium,Porcine Flush 50 UNITS, 0.9 % Sodium Chloride Flush 5 ML IVFLUSH ×3 (10:31→20:20)
--- NOTE | 2021-05-09 11:32 | P.PNIM_ITS ---
Subjective Subjective Date of Service: 05/09/21 Interval History: tired Constitutional Constitutional: Reports no additional constitutional complaints Eyes Eyes: Reports no additional eye complaints Physical Exam Vital Signs: Vital Signs: Last Vital Signs Temp 97.7 F 05/09/21 07:48 Pulse 68 05/09/21 07:48 Resp 16 05/09/21 07:48 BP 105/57 L 05/09/21 07:48 Pulse Ox 99 05/09/21 07:48 Body Mass Index 29.3 General: AO X 3, no acute distress Resp: CTA bilateral CVS: S1,S2,RRR GI: soft, non tender, non distended Neuro: motor grossly intact Psych: appropriate affect Objective Data Current Medications Generic Name Dose Route Start Last Admin Trade Name Freq PRN Reason Stop Dose Admin Acetaminophen 650 mg 04/21/21 14:29 05/06/21 17:37 Acetaminophen 325 Mg Tablet PO 650 mg Q6H PRN Administration Pain, Mild (Pain Scale 1-3) Aspirin 81 mg 05/06/21 09:00 05/09/21 08:28 Aspirin 81 Mg Tab.Chew PO 81 mg DAILY EDER Administration Bismuth Subsalicylate 262 mg 05/06/21 12:55 05/07/21 12:41 Bismuth Subsalicylate 262 Mg Tablet PO 262 mg QID PRN Administration Indigestion Buspirone HCl 30 mg 04/27/21 09:30 05/09/21 08:29 Buspirone Hcl 10 Mg Tablet PO 30 mg BID EDER Administration Clonidine HCl 0.1 mg 04/21/21 14:34 05/09/21 08:30 Clonidine Hcl 0.1 Mg Tablet PO 0.1 mg TID PRN Administration Opiate Withdrawal Protocol Heparin Sodium (Porcine) 50 0 units 04/29/21 21:00 05/09/21 10:31 units/ Sodium Chloride 5 ml IVFLUSH 5 unit TID EDER Administration Cyclobenzaprine HCl 5 mg 05/01/21 20:16 05/09/21 08:29 Cyclobenzaprine Hcl 5 Mg Tablet PO 5 mg TID PRN Administration back pain Diazepam 5 mg 05/08/21 09:35 05/09/21 08:30 Diazepam 5 Mg Tablet PO 5 mg TID EDER Administration Diclofenac Sodium 50 mg 04/27/21 09:03 05/09/21 06:46 Diclofenac Sodium Delayed Rel 50 Mg Tablet.Dr PO 50 mg TID PRN Administration Pain Enoxaparin Sodium 40 mg 04/21/21 16:00 05/08/21 16:52 Enoxaparin Sodium 40 Mg/0.4 Ml Syringe SUBCUT Not Given Q24H [facility] Gabapentin 800 mg 04/21/21 21:00 05/09/21 08:28 Gabapentin 400 Mg Capsule PO 800 mg TID EDER Administration Hydroxyzine HCl 25 mg 04/21/21 17:00 05/09/21 08:29 Hydroxyzine Hcl 25 Mg Tablet PO 25 mg QID [facility] Administration Hydroxyzine HCl 50 mg 05/05/21 17:42 Hydroxyzine Hcl 50 Mg Tablet PO BID PRN anxiety Vancomycin HCl 1,000 mg/ 270 mls @ 270 mls/hr 05/02/21 12:00 05/09/21 02:23 Sodium Chloride IV Infused Q12H [facility] Infusion Lactic Acid 1 appl 04/29/21 09:46 Ammonium Lactate 12 % Cream 140 Gm Tube TOPICAL BID PRN Dry Skin Protocol Lamotrigine 50 mg 04/22/21 09:00 05/09/21 08:30 Lamotrigine 25 Mg Tablet PO 50 mg DAILY [facility] Administration Loratadine 10 mg 05/06/21 13:30 05/09/21 08:30 Loratadine 10 Mg Tablet PO 10 mg DAILY [facility] Administration Melatonin 6 mg 04/24/21 22:50 05/05/21 20:43 Melatonin 3 Mg Tablet PO 6 mg BEDTIME PRN Administration Insomnia Methadone HCl 55 mg 05/08/21 09:00 05/09/21 08:30 Methadone Hcl 20 Mg/2 Ml Oral.Conc PO 55 mg DAILY [facility] Administration Morphine Sulfate 1 mg 05/05/21 17:45 05/09/21 10:30 Morphine Sulfate 2 Mg/Ml Cartridge IVPUSH 1 mg Q4H PRN Administration Pain, Severe (Pain Scale 7-10) Protocol Multivitamins/Vitamin C 1 tab 05/06/21 13:30 05/09/21 08:27 Multivitamin Tablet PO 1 tab DAILY [facility] Administration Nicotine 14 mg 05/03/21 10:30 05/09/21 08:30 Nicotine 14 Mg Patch.Td24 TRANSDERMA 14 mg DAILY [facility] Administration Nicotine Polacrilex 2 mg 04/25/21 01:18 05/09/21 06:35 Nicotine Polacrilex 2 Mg Gum BUCCAL 2 mg Q2H PRN Administration Nicotine Cravings Omeprazole 20 mg 04/21/21 16:30 05/09/21 06:25 Omeprazole 20 Mg Capsule. PO 20 mg BID@0630,1340 EDER Administration Ondansetron HCl 4 mg 04/21/21 14:29 Ondansetron Hcl 4 Mg/2 Ml Vial IVPUSH Q8H PRN Nausea and Vomiting Propranolol HCl 20 mg 05/05/21 17:42 05/07/21 10:18 Propranolol Hcl 20 Mg Tablet PO 20 mg Q6H PRN Administration Anxiety Protocol Simethicone 80 mg 05/01/21 10:25 05/08/21 12:30 Simethicone 80 Mg Tab.Chew PO 80 mg QIDWMHS PRN Administration Gas Sodium Chloride 3 ml 04/21/21 16:00 05/09/21 10:31 0.9 % Sodium Chloride Flush 3 Ml Syringe IVFLUSH 3 ml QSHIFT EDER Administration Topiramate 200 mg 04/22/21 09:00 05/09/21 08:29 Topiramate 100 Mg Tablet PO 200 mg DAILY EDER Administration Zolpidem Tartrate 5 mg 05/04/21 23:15 05/08/21 20:54 Zolpidem Tartrate 5 Mg Tablet PO 5 mg BEDTIME EDER Administration Zolpidem Tartrate 5 mg 05/05/21 17:42 Zolpidem Tartrate 5 Mg Tablet PO BEDTIME PRN Insomnia Labs CBC & Chem 7: 04/29/21 07:49 05/08/21 10:57 Labs: Laboratory Results - last 24 hr 05/08/21 10:57 Vancomycin Trough 13.7 Assessment and Plan (1) Bipolar 1 disorder, depressed: Status: Acute (2) MRSA bacteremia: Status: Acute Assessment and Plan: 41-year-old female with past medical history of IV drug who initially presented to the hospital on 04/03 with abscess, patient underwent I&D on 04/05 and was being treated for cellulitis/abscess and possible bacteremia but left AMA on 04/06.? She came back 2 days later but she left again AMA on the 20 of April. Went out and report using IV drugs again, came back to the hospital with intoxication and suicidal ideation. re-admitted to the medical floor to continue MRSA bacteremia treatment. ?MRSA bacteremia Repeat blood cultures negative Continue IV vancomycin 1.25 g b.i.d. To finish treatment on 05/16/21 (initially 05/18, ok to end early for placement) midline placed 04/29/21 monitor labs as needed Suicidal ideation Denies any suicidal ideation at this point Psychiatry input appreciated, not suicidal anymore Opioid abuse and dependence Drug overdose Continue 50 mg methadone Atarax and clonidine as needed continue valium 5mg tid Vaginal discharge Urinalysis negative for any UTI Recently trichomoniasis, left AMA before finishing treatment completed flagyl treatment mood disorder restarted buspar insomnia ambien HCV outpatient follow up DVT prophylaxis Heparin subQ Quality Stroke Does the patient have a stroke diagnosis?: No VTE Prior VTE?: No VTE Risk Level:: Medical - moderate - high VTE Device Contraindication: N/A - Device Ordered VTE Drug Contraindication: Treatment Not Indicated
--- NOTE | 2021-05-09 15:06 | MHC.CM.PN ---
PROGRESS NOTE SENT TO [facility] NO BED OFFER OF THIS NOTE. CASE MANAGEMENT CONTINUING TO FOLLOW
--- NOTE | 2021-05-09 17:30 | PM.EVENT ---
Event Note Date of Service: 05/09/21 Event Note: Addiction follow up: -methadone dose increased by 5mg as previously discussed with patient (up tp 60mg QD now) -requested IV morphine be d/c as it does not appear to be clinically appropriate any longer. -will continue to monitor and address any concerns with patient in AM -patient scheduled to be discharging next week, would encourage use of non opioid pain management agents whenever possible
[2021-05-09] MEDS: Zolpidem Tartrate 5 MG TABLET PO (20:21)
[2021-05-09 23:44] LABS: Vancomycin Trough 13.4 mcg/mL (10.0-20.0)
[2021-05-10] VITALS (7 sets, daily range): BP systolic 93–109; BP diastolic 49–63; PULSE 62–76; RESP 18; TEMP 36.1–36.6; O2SAT 98–100
--- NOTE | 2021-05-10 | ECG_ITS ---
Test Reason : METHADONE TITRATION Blood Pressure : / mmHG Vent. Rate : 065 BPM Atrial Rate : 065 BPM P-R Int : 184 ms QRS Dur : 086 ms QT Int : 434 ms P-R-T Axes : 044 030 036 degrees QTc Int : 451 ms Normal sinus rhythm Normal ECG When compared with ECG of 23-APR-2021 09:28, No significant change was found Referred By: Liset Brambila Electronically Signed By:NILE CAO
[2021-05-10] MEDS: 0.9 % Sodium Chloride Flush 3 ML SYRINGE IVFLUSH ×2 (00:43→10:43)
[2021-05-10] MEDS: vancomycin HCL 1,000 MG in 0.9 % Sodium Chloride 250 ML 270 MG IV ×2 (00:43→11:08)
[2021-05-10] MEDS: Omeprazole 20 MG CAPSULE.DR PO ×2 (05:53→16:13)
[2021-05-10] MEDS: cloNIDine HCL 0.1 MG TABLET PO ×2 (05:54→14:44)
[2021-05-10] MEDS: Cyclobenzaprine HCl 5 MG TABLET PO ×2 (05:54→14:44)
[2021-05-10] MEDS: Nicotine 14 MG PATCH.TD24 TRANSDERMA (08:24)
[2021-05-10] MEDS: Aspirin 81 MG TAB.CHEW PO (08:25)
[2021-05-10] MEDS: diazePAM 5 MG TABLET PO ×3 (08:25→20:19)
[2021-05-10] MEDS: Diclofenac Sodium Delayed Rel 50 MG TABLET.DR PO ×2 (08:25→16:17)
[2021-05-10] MEDS: Topiramate 100 MG TABLET 200 MG PO (08:25)
[2021-05-10] MEDS: Gabapentin 400 MG CAPSULE 800 MG PO ×3 (08:26→20:17)
[2021-05-10] MEDS: busPIRone HCl 10 MG TABLET 30 MG PO ×2 (08:26→20:18)
[2021-05-10] MEDS: lamoTRIgine 25 MG TABLET 50 MG PO (08:26)
[2021-05-10] MEDS: hydrOXYzine HCL 25 MG TABLET PO ×3 (08:28→20:17)
[2021-05-10] MEDS: Multivitamin TABLET 1 TAB PO (08:28)
[2021-05-10] MEDS: Loratadine 10 MG TABLET PO (08:28)
[2021-05-10] MEDS: Heparin Sodium,Porcine Flush 50 UNITS, 0.9 % Sodium Chloride Flush 5 ML IVFLUSH ×3 (08:31→20:16)
[2021-05-10] MEDS: methADONE HCl 20 MG/2 ML ORAL.CONC 60 MG PO (08:48)
[2021-05-10] MEDS: Milk of Magnesia 30 ML ORAL.SUSP PO (10:41)
[2021-05-10] MEDS: methADONE HCl 20 MG/2 ML ORAL.CONC 5 MG PO (10:59)
[2021-05-10] MEDS: hydrOXYzine HCL 50 MG TABLET PO (11:07)
[2021-05-10] MEDS: Nicotine Polacrilex 2 MG GUM BUCCAL (11:07)
[2021-05-10] MEDS: Propranolol HCL 20 MG TABLET PO (11:07)
--- NOTE | 2021-05-10 11:08 | P.PNIM_ITS ---
Subjective Subjective Date of Service: 05/10/21 Interval History: constipated Constitutional Constitutional: Reports no additional constitutional complaints Eyes Eyes: Reports no additional eye complaints Physical Exam Vital Signs: Vital Signs: Last Vital Signs Temp 97.0 F 05/10/21 08:00 Pulse 72 05/10/21 08:00 Resp 18 05/10/21 08:00 BP 104/60 05/10/21 08:00 Pulse Ox 99 05/10/21 08:00 Body Mass Index 29.3 General: AO X 3, no acute distress Resp: CTA bilateral CVS: S1,S2,RRR GI: soft, non tender, non distended Neuro: motor grossly intact Psych: appropriate affect Objective Data Current Medications Generic Name Dose Route Start Last Admin Trade Name Freq PRN Reason Stop Dose Admin Acetaminophen 650 mg 04/21/21 14:29 05/06/21 17:37 Acetaminophen 325 Mg Tablet PO 650 mg Q6H PRN Administration Pain, Mild (Pain Scale 1-3) Aspirin 81 mg 05/06/21 09:00 05/10/21 08:25 Aspirin 81 Mg Tab.Chew PO 81 mg DAILY EDER Administration Bismuth Subsalicylate 262 mg 05/06/21 12:55 05/07/21 12:41 Bismuth Subsalicylate 262 Mg Tablet PO 262 mg QID PRN Administration Indigestion Buspirone HCl 30 mg 04/27/21 09:30 05/10/21 08:26 Buspirone Hcl 10 Mg Tablet PO 30 mg BID EDER Administration Clonidine HCl 0.1 mg 04/21/21 14:34 05/10/21 05:54 Clonidine Hcl 0.1 Mg Tablet PO 0.1 mg TID PRN Administration Opiate Withdrawal Protocol Heparin Sodium (Porcine) 50 0 units 04/29/21 21:00 05/10/21 08:31 units/ Sodium Chloride 5 ml IVFLUSH 50 unit TID EDER Administration Cyclobenzaprine HCl 5 mg 05/01/21 20:16 05/10/21 05:54 Cyclobenzaprine Hcl 5 Mg Tablet PO 5 mg TID PRN Administration back pain Diazepam 5 mg 05/08/21 09:35 05/10/21 08:25 Diazepam 5 Mg Tablet PO 5 mg TID EDER Administration Diclofenac Sodium 50 mg 04/27/21 09:03 05/10/21 08:25 Diclofenac Sodium Delayed Rel 50 Mg Tablet.Dr PO 50 mg TID PRN Administration Pain Enoxaparin Sodium 40 mg 04/21/21 16:00 05/09/21 17:37 Enoxaparin Sodium 40 Mg/0.4 Ml Syringe SUBCUT Not Given Q24H [facility] Gabapentin 800 mg 04/21/21 21:00 05/10/21 08:26 Gabapentin 400 Mg Capsule PO 800 mg TID EDER Administration Hydroxyzine HCl 25 mg 04/21/21 17:00 05/10/21 08:28 Hydroxyzine Hcl 25 Mg Tablet PO 25 mg QID EDER Administration Hydroxyzine HCl 50 mg 05/05/21 17:42 Hydroxyzine Hcl 50 Mg Tablet PO BID PRN anxiety Vancomycin HCl 1,000 mg/ 270 mls @ 270 mls/hr 05/10/21 00:00 05/10/21 01:47 Sodium Chloride IV Infused Q12H [facility] Infusion Lactic Acid 1 appl 04/29/21 09:46 Ammonium Lactate 12 % Cream 140 Gm Tube TOPICAL BID PRN Dry Skin Protocol Lamotrigine 50 mg 04/22/21 09:00 05/10/21 08:26 Lamotrigine 25 Mg Tablet PO 50 mg DAILY EDER Administration Loratadine 10 mg 05/06/21 13:30 05/10/21 08:28 Loratadine 10 Mg Tablet PO 10 mg DAILY EDER Administration Magnesium Hydroxide 30 ml 05/10/21 10:25 05/10/21 10:41 Milk Of Magnesia 30 Ml Oral.Susp PO 30 ml TID PRN Administration constipatoin Melatonin 6 mg 04/24/21 22:50 05/05/21 20:43 Melatonin 3 Mg Tablet PO 6 mg BEDTIME PRN Administration Insomnia Methadone HCl 60 mg 05/10/21 09:00 05/10/21 08:48 Methadone Hcl 20 Mg/2 Ml Oral.Conc PO 60 mg DAILY EDER Administration Methadone HCl 5 mg 05/10/21 13:00 Methadone Hcl 20 Mg/2 Ml Oral.Conc PO 05/10/21 13:01 ONCE ONE Multivitamins/Vitamin C 1 tab 05/06/21 13:30 05/10/21 08:28 Multivitamin Tablet PO 1 tab DAILY EDER Administration Nicotine 14 mg 05/03/21 10:30 05/10/21 08:24 Nicotine 14 Mg Patch.Td24 TRANSDERMA 14 mg DAILY EDER Administration Nicotine Polacrilex 2 mg 04/25/21 01:18 05/09/21 14:24 Nicotine Polacrilex 2 Mg Gum BUCCAL 2 mg Q2H PRN Administration Nicotine Cravings Omeprazole 20 mg 04/21/21 16:30 05/10/21 05:53 Omeprazole 20 Mg Capsule. PO 20 mg BID@0630,0930 EDER Administration Ondansetron HCl 4 mg 04/21/21 14:29 Ondansetron Hcl 4 Mg/2 Ml Vial IVPUSH Q8H PRN Nausea and Vomiting Propranolol HCl 20 mg 05/05/21 17:42 05/07/21 10:18 Propranolol Hcl 20 Mg Tablet PO 20 mg Q6H PRN Administration Anxiety Protocol Simethicone 80 mg 05/01/21 10:25 05/08/21 12:30 Simethicone 80 Mg Tab.Chew PO 80 mg QIDWMHS PRN Administration Gas Sodium Chloride 3 ml 04/21/21 16:00 05/10/21 10:43 0.9 % Sodium Chloride Flush 3 Ml Syringe IVFLUSH 3 ml QSHIFT EDER Administration Topiramate 200 mg 04/22/21 09:00 05/10/21 08:25 Topiramate 100 Mg Tablet PO 200 mg DAILY EDRE Administration Zolpidem Tartrate 5 mg 05/05/21 17:42 Zolpidem Tartrate 5 Mg Tablet PO BEDTIME PRN Insomnia Labs CBC & Chem 7: 04/29/21 07:49 05/08/21 10:57 Labs: Laboratory Results - last 24 hr 05/09/21 23:03 Vancomycin Trough 13.4 Assessment and Plan (1) Bipolar 1 disorder, depressed: Status: Acute (2) MRSA bacteremia: Status: Acute Assessment and Plan: 41-year-old female with past medical history of IV drug who initially presented to the hospital on 04/03 with abscess, patient underwent I&D on 04/05 and was b eing treated for cellulitis/abscess and possible bacteremia but left AMA on 04/06.? She came back 2 days later but she left again AMA on the 20 of April. Went out and report using IV drugs again, came back to the hospital with intoxication and suicidal ideation. re-admitted to the medical floor to continue MRSA bacteremia treatment. ?MRSA bacteremia Repeat blood cultures negative Continue IV vancomycin 1.25 g b.i.d. To finish treatment on 05/16/21 (initially 05/18, ok to end early for placement) midline placed 04/29/21 monitor labs as needed constipation MOM Suicidal ideation Denies any suicidal ideation at this point Psychiatry input appreciated, not suicidal anymore Opioid abuse and dependence Drug overdose Continue methadone, increased to 60mg, stopped morphine Atarax and clonidine as needed continue valium 5mg tid Vaginal discharge Urinalysis negative for any UTI Recently trichomoniasis, left AMA before finishing treatment completed flagyl treatment mood disorder restarted buspar insomnia ambien HCV outpatient follow up DVT prophylaxis Heparin subQ Quality Stroke Does the patient have a stroke diagnosis?: No VTE Prior VTE?: No VTE Risk Level:: Medical - moderate - high VTE Device Contraindication: N/A - Device Ordered VTE Drug Contraindication: Treatment Not Indicated
[2021-05-10] MEDS: Simethicone 80 MG TAB.CHEW PO (13:03)
[2021-05-10] MEDS: Bismuth Subsalicylate 262 MG TABLET PO (16:17)
--- NOTE | 2021-05-10 16:33 | P.PNADD_ITS ---
Subjective Subjective Date of Service: 05/10/21 Reason For Visit: Intoxication, Suicidal ideation, MRSA bacteremia Interim History: Patient reports feeling terrible since morphine was disc ontinued. Stating that she has been having significant joint pain, overall malaise. Explained rationale for d/c medication as she will be discharging next week and this medication is no longer indicated as wound is completely healed. Patient verbalized understanding. worried that she will continue to experience withdrawal sx. Assured patient this business writer would re-eval and order additional 5mg later in the afternoon to address these sx. Review of Systems Review of Systems: as per HPI Mental Status Exam Mental Status Exam Patient Appearance: Well Grooomed and Appropriate Patient Orientation: Person, Place, Time and Situation Level of Consciousness: Awake and Appropriate Patient Behavior: Talkative Mood Description: Anxious and Labile Affect Description: Labile Ability to Follow Directions: Excellent Speech Pattern: Clear Hallucinations: None Judgement: Fair Diagnostics Vital Signs (24Hr): Vital Signs - 24 hr 05/09/21 17:38 05/09/21 19:32 05/10/21 00:00 Temperature 97.3 F 97.6 F Pulse Rate 72 68 62 Respiratory Rate 14 18 Blood Pressure 136/63 110/59 L 109/59 L Pulse Oximetry 98 98 05/10/21 03:48 05/10/21 05:54 05/10/21 08:00 Temperature 97.0 F Pulse Rate 64 72 Respiratory Rate 18 18 Blood Pressure 107/63 104/60 Pulse Oximetry 99 05/10/21 11:53 05/10/21 16:00 Temperature 97.5 F 97.8 F Pulse Rate 76 71 Respiratory Rate 18 18 Blood Pressure 96/60 93/49 L Pulse Oximetry 98 98 Body Mass Index 29.3 Labs Results: 04/29/21 07:49 05/08/21 10:57 Labs: Laboratory Results - last 48 hr 05/09/21 23:03 Vancomycin Trough 13.4 EKG EKG Comment: EKG reviewed, WNL Medications Medications Current Medications Generic Name Dose Route Start Last Admin Trade Name Freq PRN Reason Stop Dose Admin Acetaminophen 650 mg 04/21/21 14:29 05/06/21 17:37 Acetaminophen 325 Mg Tablet PO 650 mg Q6H PRN Administration Pain, Mild (Pain Scale 1-3) Aspirin 81 mg 05/06/21 09:00 05/10/21 08:25 Aspirin 81 Mg Tab.Chew PO 81 mg DAILY [facility] Administration Bismuth Subsalicylate 262 mg 05/06/21 12:55 05/10/21 16:17 Bismuth Subsalicylate 262 Mg Tablet PO 262 mg QID PRN Administration Indigestion Buspirone HCl 30 mg 04/27/21 09:30 05/10/21 08:26 Buspirone Hcl 10 Mg Tablet PO 30 mg BID [facility] Administration Clonidine HCl 0.1 mg 04/21/21 14:34 05/10/21 14:44 Clonidine Hcl 0.1 Mg Tablet PO 0.1 mg TID PRN Administration Opiate Withdrawal Protocol Heparin Sodium (Porcine) 50 0 units 04/29/21 21:00 05/10/21 14:45 units/ Sodium Chloride 5 ml IVFLUSH 50 unit TID [facility] Administration Cyclobenzaprine HCl 5 mg 05/01/21 20:16 05/10/21 14:44 Cyclobenzaprine Hcl 5 Mg Tablet PO 5 mg TID PRN Administration back pain Diazepam 5 mg 05/08/21 09:35 05/10/21 14:45 Diazepam 5 Mg Tablet PO 5 mg TID [facility] Administration Diclofenac Sodium 50 mg 04/27/21 09:03 05/10/21 16:17 Diclofenac Sodium Delayed Rel 50 Mg Tablet.Dr PO 50 mg TID PRN Administration Pain Enoxaparin Sodium 40 mg 04/21/21 16:00 05/10/21 16:11 Enoxaparin Sodium 40 Mg/0.4 Ml Syringe SUBCUT Not Given Q24H [facility] Gabapentin 800 mg 04/21/21 21:00 05/10/21 14:45 Gabapentin 400 Mg Capsule PO 800 mg TID [facility] Administration Hydroxyzine HCl 25 mg 04/21/21 17:00 05/10/21 16:13 Hydroxyzine Hcl 25 Mg Tablet PO 25 mg QID [facility] Administration Hydroxyzine HCl 50 mg 05/05/21 17:42 05/10/21 11:07 Hydroxyzine Hcl 50 Mg Tablet PO 50 mg BID PRN Administration anxiety Vancomycin HCl 1,000 mg/ 270 mls @ 270 mls/hr 05/10/21 00:00 05/10/21 13:21 Sodium Chloride IV Infused Q12H [facility] Infusion Lactic Acid 1 appl 04/29/21 09:46 Ammonium Lactate 12 % Cream 140 Gm Tube TOPICAL BID PRN Dry Skin Protocol Lamotrigine 50 mg 04/22/21 09:00 05/10/21 08:26 Lamotrigine 25 Mg Tablet PO 50 mg DAILY EDER Administration Loratadine 10 mg 05/06/21 13:30 05/10/21 08:28 Loratadine 10 Mg Tablet PO 10 mg DAILY EDER Administration Magnesium Hydroxide 30 ml 05/10/21 10:25 05/10/21 10:41 Milk Of Magnesia 30 Ml Oral.Susp PO 30 ml TID PRN Administration constipatoin Melatonin 6 mg 04/24/21 22:50 05/05/21 20:43 Melatonin 3 Mg Tablet PO 6 mg BEDTIME PRN Administration Insomnia Methadone HCl 60 mg 05/10/21 09:00 05/10/21 08:48 Methadone Hcl 20 Mg/2 Ml Oral.Conc PO 60 mg DAILY EDER Administration Multivitamins/Vitamin C 1 tab 05/06/21 13:30 05/10/21 08:28 Multivitamin Tablet PO 1 tab DAILY EDER Administration Nicotine 14 mg 05/03/21 10:30 05/10/21 08:24 Nicotine 14 Mg Patch.Td24 TRANSDERMA 14 mg DAILY EDER Administration Nicotine Polacrilex 2 mg 04/25/21 01:18 05/10/21 11:07 Nicotine Polacrilex 2 Mg Gum BUCCAL 2 mg Q2H PRN Administration Nicotine Cravings Omeprazole 20 mg 04/21/21 16:30 05/10/21 16:13 Omeprazole 20 Mg Capsule. PO 20 mg BID@0630,1630 EDER Administration Ondansetron HCl 4 mg 04/21/21 14:29 Ondansetron Hcl 4 Mg/2 Ml Vial IVPUSH Q8H PRN Nausea and Vomiting Propranolol HCl 20 mg 05/05/21 17:42 05/10/21 11:07 Propranolol Hcl 20 Mg Tablet PO 20 mg Q6H PRN Administration Anxiety Protocol Simethicone 80 mg 05/01/21 10:25 05/10/21 13:03 Simethicone 80 Mg Tab.Chew PO 80 mg QIDWMHS PRN Administration Gas Sodium Chloride 3 ml 04/21/21 16:00 05/10/21 16:10 0.9 % Sodium Chloride Flush 3 Ml Syringe IVFLUSH Not Given QSHIFT [facility] Topiramate 200 mg 04/22/21 09:00 05/10/21 08:25 Topiramate 100 Mg Tablet PO 200 mg DAILY EDER Administration Zolpidem Tartrate 5 mg 05/05/21 17:42 Zolpidem Tartrate 5 Mg Tablet PO BEDTIME PRN Insomnia Allergies Allergies Allergy/AdvReac Type Severity Reaction Status Date / Time azithromycin [AZITHROMYCIN] Allergy Unknown UNK Verified 04/07/21 17:15 erythromycin base Allergy Unknown RASH Verified 04/07/21 17:15 [ERYTHROMYCIN BASE] olanzapine [From ZYPREXA] Allergy Unknown PEDAL EDEMA Verified 04/07/21 17:15 quetiapine [From SEROQUEL] Allergy Unknown THROAT Verified 04/07/21 17:15 SWELLING risperidone [From RISPERDAL] Allergy Unknown TWITCHING Verified 04/07/21 17:15 shellfish derived Allergy Unknown VOMITING Verified 04/07/21 17:15 [SHELLFISH DERIVED] sulfacetamide Allergy Unknown Unknown Verified 05/07/21 08:36 [From Sulfacet-R] sulfamethoxazole Allergy Unknown ITCHING Verified 04/07/21 17:15 [From BACTRIM] sulfur [From Sulfacet-R] Allergy Unknown Unknown Verified 05/07/21 08:36 trimethoprim [From BACTRIM] Allergy Unknown ITCHING Verified 04/07/21 17:15 seafood AdvReac Unknown Vomiting Verified 05/07/21 08:36 Assessment & Plan Assessment & Plan (1) Opioid use disorder, severe, dependence: Status: Acute Code(s): F11.20 - Opioid dependence, uncomplicated Assessment and Plan: * additional 5mg methadone ordered and administered later in afternoon with good effect * patient walking around her room, talking, cleaning, etc--no further complaints regarding withdrawal * patient concerned about discharge medications, assured patient short bridge rx would be provided but continuation of medications would have to be with community provider. * EKG reviewed, WNL * dose to be increased to 65mg QD. No additional titration prior to discharge. Patient can follow up in the community for additional titration as necessary. 45 minutes spetn with patient and coordinating care. Greater than 50% of the session was spent on counseling and/or coordination of care
[2021-05-11] VITALS (8 sets, daily range): BP systolic 95–126; BP diastolic 51–80; PULSE 64–136; RESP 15–20; TEMP 36–37.1; O2SAT 97–100
[2021-05-11] MEDS: vancomycin HCL 1,000 MG in 0.9 % Sodium Chloride 250 ML 270 MG IV ×2 (00:34→12:22)
[2021-05-11] MEDS: Acetaminophen 325 MG TABLET 650 MG PO (00:44)
[2021-05-11] MEDS: Cyclobenzaprine HCl 5 MG TABLET PO ×4 (00:44→20:33)
[2021-05-11] MEDS: Omeprazole 20 MG CAPSULE.DR PO ×2 (06:43→17:10)
[2021-05-11] MEDS: hydrOXYzine HCL 25 MG TABLET PO ×4 (08:08→20:41)
[2021-05-11] MEDS: Topiramate 100 MG TABLET 200 MG PO (08:08)
[2021-05-11] MEDS: Gabapentin 400 MG CAPSULE 800 MG PO ×3 (08:08→20:40)
[2021-05-11] MEDS: diazePAM 5 MG TABLET PO ×3 (08:08→20:40)
[2021-05-11] MEDS: Multivitamin TABLET 1 TAB PO (08:08)
[2021-05-11] MEDS: Loratadine 10 MG TABLET PO (08:08)
[2021-05-11] MEDS: busPIRone HCl 10 MG TABLET 30 MG PO ×2 (08:08→20:39)
[2021-05-11] MEDS: Heparin Sodium,Porcine Flush 50 UNITS, 0.9 % Sodium Chloride Flush 5 ML IVFLUSH (08:08)
[2021-05-11] MEDS: lamoTRIgine 25 MG TABLET 50 MG PO (08:08)
[2021-05-11] MEDS: Aspirin 81 MG TAB.CHEW PO (08:08)
[2021-05-11] MEDS: 0.9 % Sodium Chloride Flush 3 ML SYRINGE IVFLUSH (08:09)
[2021-05-11] MEDS: methADONE HCl 20 MG/2 ML ORAL.CONC 65 MG PO (08:09)
[2021-05-11] MEDS: Nicotine 14 MG PATCH.TD24 TRANSDERMA (08:09)
[2021-05-11] MEDS: Nicotine Polacrilex 2 MG GUM BUCCAL ×2 (09:25→20:32)
[2021-05-11] MEDS: Simethicone 80 MG TAB.CHEW PO ×2 (09:25→17:10)
[2021-05-11] MEDS: Diclofenac Sodium Delayed Rel 50 MG TABLET.DR PO ×2 (09:25→17:10)
--- NOTE | 2021-05-11 09:42 | HO.PM.IMPN ---
Subjective Subjective Date of Service: 05/11/21 Interval History: constipated Cardiovascular Cardiovascular: Reports no additional cardiovascular complaints Respiratory Respiratory: Reports no additional respiratory complaints Physical Exam Vital Signs: Vital Signs: Last Vital Signs Temp 97.8 F 05/11/21 08:00 Pulse 73 05/11/21 08:00 Resp 19 05/11/21 08:00 BP 105/55 L 05/11/21 08:00 Pulse Ox 98 05/11/21 08:00 Body Mass Index 29.3 gen: no acute distress resp: normal rate neuro: gross motor intact Objective Data Current Medications Generic Name Dose Route Start Last Admin Trade Name Freq PRN Reason Stop Dose Admin Acetaminophen 650 mg 04/21/21 14:29 05/11/21 00:44 Acetaminophen 325 Mg Tablet PO 650 mg Q6H PRN Administration Pain, Mild (Pain Scale 1-3) Aspirin 81 mg 05/06/21 09:00 05/11/21 08:08 Aspirin 81 Mg Tab.Chew PO 81 mg DAILY EDER Administration Bismuth Subsalicylate 262 mg 05/06/21 12:55 05/10/21 16:17 Bismuth Subsalicylate 262 Mg Tablet PO 262 mg QID PRN Administration Indigestion Buspirone HCl 30 mg 04/27/21 09:30 05/11/21 08:08 Buspirone Hcl 10 Mg Tablet PO 30 mg BID EDER Administration Clonidine HCl 0.1 mg 04/21/21 14:34 05/10/21 14:44 Clonidine Hcl 0.1 Mg Tablet PO 0.1 mg TID PRN Administration Opiate Withdrawal Protocol Heparin Sodium (Porcine) 50 0 units 04/29/21 21:00 05/11/21 08:08 units/ Sodium Chloride 5 ml IVFLUSH 50 unit TID EDER Administration Cyclobenzaprine HCl 5 mg 05/01/21 20:16 05/11/21 08:16 Cyclobenzaprine Hcl 5 Mg Tablet PO 5 mg TID PRN Administration back pain Diazepam 5 mg 05/08/21 09:35 05/11/21 08:08 Diazepam 5 Mg Tablet PO 5 mg TID EDER Administration Diclofenac Sodium 50 mg 04/27/21 09:03 05/11/21 09:25 Diclofenac Sodium Delayed Rel 50 Mg Tablet.Dr PO 50 mg TID PRN Administration Pain Enoxaparin Sodium 40 mg 04/21/21 16:00 05/10/21 16:11 Enoxaparin Sodium 40 Mg/0.4 Ml Syringe SUBCUT Not Given Q24H [facility]ER Gabapentin 800 mg 04/21/21 21:00 05/11/21 08:08 Gabapentin 400 Mg Capsule PO 800 mg TID EDER Administration Hydroxyzine HCl 25 mg 04/21/21 17:00 05/11/21 08:08 Hydroxyzine Hcl 25 Mg Tablet PO 25 mg QID EDER Administration Hydroxyzine HCl 50 mg 05/05/21 17:42 05/10/21 11:07 Hydroxyzine Hcl 50 Mg Tablet PO 50 mg BID PRN Administration anxiety Vancomycin HCl 1,000 mg/ 270 mls @ 270 mls/hr 05/10/21 00:00 05/11/21 01:58 Sodium Chloride IV Infused Q12H [facility] Infusion Lactic Acid 1 appl 04/29/21 09:46 Ammonium Lactate 12 % Cream 140 Gm Tube TOPICAL BID PRN Dry Skin Protocol Lamotrigine 50 mg 04/22/21 09:00 05/11/21 08:08 Lamotrigine 25 Mg Tablet PO 50 mg DAILY [facility]ER Administration Loratadine 10 mg 05/06/21 13:30 05/11/21 08:08 Loratadine 10 Mg Tablet PO 10 mg DAILY [facility]ER Administration Magnesium Hydroxide 30 ml 05/10/21 10:25 05/10/21 10:41 Milk Of Magnesia 30 Ml Oral.Susp PO 30 ml TID PRN Administration constipatoin Melatonin 6 mg 04/24/21 22:50 05/05/21 20:43 Melatonin 3 Mg Tablet PO 6 mg BEDTIME PRN Administration Insomnia Methadone HCl 65 mg 05/11/21 09:00 05/11/21 08:09 Methadone Hcl 20 Mg/2 Ml Oral.Conc PO 65 mg DAILY EDER Administration Multivitamins/Vitamin C 1 tab 05/06/21 13:30 05/11/21 08:08 Multivitamin Tablet PO 1 tab DAILY [facility]ER Administration Nicotine 14 mg 05/03/21 10:30 05/11/21 08:09 Nicotine 14 Mg Patch.Td24 TRANSDERMA 14 mg DAILY [facility]ER Administration Nicotine Polacrilex 2 mg 04/25/21 01:18 05/11/21 09:25 Nicotine Polacrilex 2 Mg Gum BUCCAL 2 mg Q2H PRN Administration Nicotine Cravings Omeprazole 20 mg 04/21/21 16:30 05/11/21 06:43 Omeprazole 20 Mg Capsule. PO 20 mg BID@4395,3592 EDER Administration Ondansetron HCl 4 mg 04/21/21 14:29 Ondansetron Hcl 4 Mg/2 Ml Vial IVPUSH Q8H PRN Nausea and Vomiting Propranolol HCl 20 mg 05/05/21 17:42 05/10/21 11:07 Propranolol Hcl 20 Mg Tablet PO 20 mg Q6H PRN Administration Anxiety Protocol Simethicone 80 mg 05/01/21 10:25 05/11/21 09:25 Simethicone 80 Mg Tab.Chew PO 80 mg QIDWMHS PRN Administration Gas Sodium Chloride 3 ml 04/21/21 16:00 05/11/21 08:09 0.9 % Sodium Chloride Flush 3 Ml Syringe IVFLUSH 3 ml QSHIFT EDER Administration Topiramate 200 mg 04/22/21 09:00 05/11/21 08:08 Topiramate 100 Mg Tablet PO 200 mg DAILY EDER Administration Labs CBC & Chem 7: 04/29/21 07:49 05/08/21 10:57 Assessment and Plan (1) Bipolar 1 disorder, depressed: Status: Acute (2) MRSA bacteremia: Status: Acute Assessment and Plan: 41-year-old female with past medical history of IV drug who initially presented to the hospital on 04/03 with abscess, patient underwent I&D on 04/05 and was being treated for cellulitis/abscess and possible bacteremia but left AMA on 04/06.? She came back 2 days later but she left again AMA on the 20 of April. Went out and report using IV drugs again, came back to the hospital with intoxication and suicidal ideation. re-admitted to the medical floor to continue MRSA bacteremia treatment. ?MRSA bacteremia Repeat blood cultures negative Continue IV vancomycin 1.25 g b.i.d. To finish treatment on 05/16/21 (initially 05/18, ok to end early for placement) midline placed 04/29/21 monitor labs as needed Suicidal ideation Denies any suicidal ideation at this point Psychiatry input appreciated, not suicidal anymore Opioid abuse and dependence Drug overdose Continue methadone, increased to 60mg, stopped morphine Atarax and clonidine as needed continue valium 5mg tid Vaginal discharge Urinalysis negative for any UTI Recently trichomoniasis, left AMA before finishing treatment now completed flagyl treatment mood disorder restarted buspar insomnia aprilien HCV outpatient follow up DVT prophylaxis Heparin subQ Quality Stroke Does the patient have a stroke diagnosis?: No VTE Prior VTE?: No VTE Risk Level:: Medical - moderate - high VTE Device Contraindication: N/A - Device Ordered VTE Drug Contraindication: Treatment Not Indicated
[2021-05-11] MEDS: cloNIDine HCL 0.1 MG TABLET PO ×2 (12:32→20:33)
--- NOTE | 2021-05-11 14:08 | PC.NURSE ---
Midline to left upper arm overdue for dressing change. Pt very anxious about dressing change, very nervous about the line slipping out of place. Pt continuously moving and touching midline during dressing change despite education and instructions against it. Second nurse in room to assist. Dsg changed and noted that midline was coiled under the biopatch. line flushed and due to pt anxiety quickly redressed. line flushed easily. nursing appliance service supervisor consulted about coil on line and advised this RN to monitor closely during infusion. Vanco infusion began at 1230, pt reported slight burning at sight, but continued to monitor. at 1300 arm became puffy and pt reported increased pain at sight. IV medication stopped and MD and appliance service supervisor made aware. Midline to no longer be used/ infiltrated. Will discuss inserting peripheral line at bedside vs replacing midline with IR with team. Pt currently very upset/ aggitated. will hold off for now and cont to monitor and assess
[2021-05-11] MEDS: Zolpidem Tartrate 5 MG TABLET PO (21:12)
[2021-05-12] MEDS: 0.9 % Sodium Chloride Flush 3 ML SYRINGE IVFLUSH ×3 (00:47→21:08)
[2021-05-12] MEDS: vancomycin HCL 1,000 MG in 0.9 % Sodium Chloride 250 ML 270 MG IV ×2 (00:47→17:39)
[2021-05-12] MEDS: Omeprazole 20 MG CAPSULE.DR PO ×2 (05:43→15:49)
[2021-05-12 07:03] LABS: Creatinine Clr Calc Pharmacy 89.2; Estimated Glomerular Filt Rate > 60
[2021-05-12 07:58] VITALS: BP 125/78; PULSE 78; RESP 20; TEMP 36.4; O2SAT 97
[2021-05-12] MEDS: methADONE HCl 20 MG/2 ML ORAL.CONC 65 MG PO (08:14)
[2021-05-12] MEDS: Nicotine 14 MG PATCH.TD24 TRANSDERMA (08:15)
[2021-05-12] MEDS: Topiramate 100 MG TABLET 200 MG PO (08:15)
[2021-05-12] MEDS: diazePAM 5 MG TABLET PO ×3 (08:15→21:07)
[2021-05-12] MEDS: lamoTRIgine 25 MG TABLET 50 MG PO (08:15)
[2021-05-12] MEDS: Multivitamin TABLET 1 TAB PO (08:15)
[2021-05-12] MEDS: Loratadine 10 MG TABLET PO (08:15)
[2021-05-12] MEDS: Gabapentin 400 MG CAPSULE 800 MG PO ×3 (08:15→21:07)
[2021-05-12] MEDS: Aspirin 81 MG TAB.CHEW PO (08:15)
[2021-05-12] MEDS: busPIRone HCl 10 MG TABLET 30 MG PO ×2 (08:15→21:06)
[2021-05-12] MEDS: hydrOXYzine HCL 25 MG TABLET PO ×4 (08:15→21:07)
[2021-05-12] MEDS: Cyclobenzaprine HCl 5 MG TABLET PO ×3 (08:22→21:07)
--- NOTE | 2021-05-12 08:44 | P.PNIM_ITS ---
Subjective Subjective Date of Service: 05/12/21 Interval History: lue swelling yesterday, improving after removal of midline Respiratory Respiratory: Reports no additional respiratory complaints Gastrointestinal Gastrointestinal: Reports no additional gastrointestinal complaints Physical Exam Vital Signs: Vital Signs: Last Vital Signs Temp 97.5 F 05/12/21 07:58 Pulse 78 05/12/21 07:58 Resp 20 05/12/21 07:58 BP 125/78 05/12/21 07:58 Pulse Ox 97 05/12/21 07:58 Body Mass Index 29.3 General: AO X 3, no acute distress Resp: CTA bilateral CVS: S1,S2,RRR GI: soft, non tender, non distended Neuro: motor grossly intact Psych: appropriate affect improved lue swelling, no erythema Objective Data Current Medications Generic Name Dose Route Start Last Admin Trade Name Freq PRN Reason Stop Dose Admin Acetaminophen 650 mg 04/21/21 14:29 05/11/21 00:44 Acetaminophen 325 Mg Tablet PO 650 mg Q6H PRN Administration Pain, Mild (Pain Scale 1-3) Aspirin 81 mg 05/06/21 09:00 05/12/21 08:15 Aspirin 81 Mg Tab.Chew PO 81 mg DAILY EDER Administration Bismuth Subsalicylate 262 mg 05/06/21 12:55 05/10/21 16:17 Bismuth Subsalicylate 262 Mg Tablet PO 262 mg QID PRN Administration Indigestion Buspirone HCl 30 mg 04/27/21 09:30 05/12/21 08:15 Buspirone Hcl 10 Mg Tablet PO 30 mg BID EDER Administration Clonidine HCl 0.1 mg 04/21/21 14:34 05/11/21 20:33 Clonidine Hcl 0.1 Mg Tablet PO 0.1 mg TID PRN Administration Opiate Withdrawal Protocol Heparin Sodium (Porcine) 50 0 units 04/29/21 21:00 05/12/21 08:17 units/ Sodium Chloride 5 ml IVFLUSH Not Given TID EDER Cyclobenzaprine HCl 5 mg 05/01/21 20:16 05/12/21 08:22 Cyclobenzaprine Hcl 5 Mg Tablet PO 5 mg TID PRN Administration back pain Diazepam 5 mg 05/08/21 09:35 05/12/21 08:15 Diazepam 5 Mg Tablet PO 5 mg TID EDER Administration Diclofenac Sodium 50 mg 04/27/21 09:03 05/11/21 17:10 Diclofenac Sodium Delayed Rel 50 Mg Tablet.Dr PO 50 mg TID PRN Administration Pain Enoxaparin Sodium 40 mg 04/21/21 16:00 05/11/21 16:59 Enoxaparin Sodium 40 Mg/0.4 Ml Syringe SUBCUT Not Given Q24H EDER Gabapentin 800 mg 04/21/21 21:00 05/12/21 08:15 Gabapentin 400 Mg Capsule PO 800 mg TID EDER Administration Hydroxyzine HCl 25 mg 04/21/21 17:00 05/12/21 08:15 Hydroxyzine Hcl 25 Mg Tablet PO 25 mg QID EDER Administration Hydroxyzine HCl 50 mg 05/05/21 17:42 05/10/21 11:07 Hydroxyzine Hcl 50 Mg Tablet PO 50 mg BID PRN Administration anxiety Vancomycin HCl 1,000 mg/ 270 mls @ 270 mls/hr 05/10/21 00:00 05/12/21 03:45 Sodium Chloride IV Infused Q12H [facility] Infusion Lactic Acid 1 appl 04/29/21 09:46 Ammonium Lactate 12 % Cream 140 Gm Tube TOPICAL BID PRN Dry Skin Protocol Lamotrigine 50 mg 04/22/21 09:00 05/12/21 08:15 Lamotrigine 25 Mg Tablet PO 50 mg DAILY [facility] Administration Loratadine 10 mg 05/06/21 13:30 05/12/21 08:15 Loratadine 10 Mg Tablet PO 10 mg DAILY EDER Administration Magnesium Hydroxide 30 ml 05/10/21 10:25 05/10/21 10:41 Milk Of Magnesia 30 Ml Oral.Susp PO 30 ml TID PRN Administration constipatoin Melatonin 6 mg 04/24/21 22:50 05/05/21 20:43 Melatonin 3 Mg Tablet PO 6 mg BEDTIME PRN Administration Insomnia Methadone HCl 65 mg 05/11/21 09:00 05/12/21 08:14 Methadone Hcl 20 Mg/2 Ml Oral.Conc PO 65 mg DAILY EDER Administration Multivitamins/Vitamin C 1 tab 05/06/21 13:30 05/12/21 08:15 Multivitamin Tablet PO 1 tab DAILY EDER Administration Nicotine 14 mg 05/03/21 10:30 05/12/21 08:15 Nicotine 14 Mg Patch.Td24 TRANSDERMA 14 mg DAILY EDER Administration Nicotine Polacrilex 2 mg 04/25/21 01:18 05/11/21 20:32 Nicotine Polacrilex 2 Mg Gum BUCCAL 2 mg Q2H PRN Administration Nicotine Cravings Omeprazole 20 mg 04/21/21 16:30 05/12/21 05:43 Omeprazole 20 Mg Capsule. PO 20 mg BID@0630,1450 EDER Administration Ondansetron HCl 4 mg 04/21/21 14:29 Ondansetron Hcl 4 Mg/2 Ml Vial IVPUSH Q8H PRN Nausea and Vomiting Propranolol HCl 20 mg 05/05/21 17:42 05/10/21 11:07 Propranolol Hcl 20 Mg Tablet PO 20 mg Q6H PRN Administration Anxiety Protocol Simethicone 80 mg 05/01/21 10:25 05/11/21 17:10 Simethicone 80 Mg Tab.Chew PO 80 mg QIDWMHS PRN Administration Gas Sodium Chloride 3 ml 04/21/21 16:00 05/12/21 08:16 0.9 % Sodium Chloride Flush 3 Ml Syringe IVFLUSH 3 ml QSHIFT EDER Administration Topiramate 200 mg 04/22/21 09:00 05/12/21 08:15 Topiramate 100 Mg Tablet PO 200 mg DAILY EDER Administration Zolpidem Tartrate 5 mg 05/11/21 20:58 05/11/21 21:12 Zolpidem Tartrate 5 Mg Tablet PO 5 mg BEDTIME PRN Administration Insomnia Labs CBC & Chem 7: 04/29/21 07:49 05/12/21 06:14 Labs: Laboratory Results - last 24 hr 05/12/21 06:14 Estim Creat Clear Calc 89.2 Estimated GFR > 60 Assessment and Plan (1) Bipolar 1 disorder, depressed: Status: Acute (2) MRSA bacteremia: Status: Acute Assessment and Plan: 41-year-old female with past medical history of IV drug who initially presented to the hospital on 04/03 with abscess, patient underwent I&D on 04/05 and was being treated for cellulitis/abscess and possible bacteremia but left AMA on 04/06.? She came back 2 days later but she left again AMA on the 20 of April. Went out and report using IV drugs again, came back to the hospital with intoxication and suicidal ideation. re-admitted to the medical floor to continue MRSA bacteremia treatment. ?MRSA bacteremia Repeat blood cultures negative Continue IV vancomycin 1.25 g b.i.d. To finish treatment on 05/16/21 (initially 05/18, ok to end early for placement) midline placed 04/29/21, appeared inflitrated 05/11, doppler negative, removed and swelling improved, peripheral placed monitor labs as needed Suicidal ideation Denies any suicidal ideation at this point Psychiatry input appreciated, not suicidal anymore Opioid abuse and dependence Drug overdose Continue methadone, increased to 60mg, stopped morphine Atarax and clonidine as needed continue valium 5mg tid Vaginal discharge Urinalysis negative for any UTI Recently trichomoniasis, left AMA before finishing treatment now completed flagyl treatment mood disorder restarted buspar insomnia ambien HCV outpatient follow up DVT prophylaxis Heparin subQ Quality Stroke Does the patient have a stroke diagnosis?: No VTE Prior VTE?: No VTE Risk Level:: Medical - moderate - high VTE Device Contraindication: N/A - Device Ordered VTE Drug Contraindication: Treatment Not Indicated
[2021-05-12 11:34] VITALS: BP 132/73; PULSE 80; RESP 18; TEMP 36.3; O2SAT 98
[2021-05-12] MEDS: Nicotine Polacrilex 2 MG GUM BUCCAL ×2 (12:00→15:49)
[2021-05-12] MEDS: Diclofenac Sodium Delayed Rel 50 MG TABLET.DR PO (12:00)
[2021-05-12] MEDS: cloNIDine HCL 0.1 MG TABLET PO ×2 (12:00→21:06)
[2021-05-12] MEDS: Acetaminophen 325 MG TABLET 650 MG PO (12:46)
[2021-05-12] MEDS: Milk of Magnesia 30 ML ORAL.SUSP PO (15:49)
[2021-05-12] MEDS: Propranolol HCL 20 MG TABLET PO (15:49)
[2021-05-12 15:50] VITALS: BP 109/62; PULSE 75; RESP 20; TEMP 36.1; O2SAT 99
[2021-05-12] MEDS: hydrOXYzine HCL 50 MG TABLET PO (17:20)
[2021-05-12 19:27] VITALS: BP 108/54; PULSE 66; RESP 20; TEMP 36.3; O2SAT 99
[2021-05-12 21:06] VITALS: BP 108/54; PULSE 66
[2021-05-12] MEDS: Zolpidem Tartrate 5 MG TABLET PO (21:07)
[2021-05-12 23:27] VITALS: BP 130/61; PULSE 64; RESP 16; TEMP 36.3; O2SAT 98
[2021-05-13] MEDS: Omeprazole 20 MG CAPSULE.DR PO ×2 (05:55→16:50)
[2021-05-13] MEDS: vancomycin HCL 1,000 MG in 0.9 % Sodium Chloride 250 ML 270 MG IV ×2 (05:55→17:03)
[2021-05-13 08:00] VITALS: BP 120/79; PULSE 75; RESP 18; TEMP 36.3; O2SAT 98
[2021-05-13] MEDS: Bismuth Subsalicylate 262 MG TABLET PO (09:52)
[2021-05-13] MEDS: lamoTRIgine 25 MG TABLET 50 MG PO (09:52)
[2021-05-13] MEDS: Topiramate 100 MG TABLET 200 MG PO (09:52)
[2021-05-13] MEDS: Diclofenac Sodium Delayed Rel 50 MG TABLET.DR PO ×2 (09:52→16:49)
[2021-05-13] MEDS: hydrOXYzine HCL 25 MG TABLET PO ×4 (09:52→20:52)
[2021-05-13] MEDS: methADONE HCl 20 MG/2 ML ORAL.CONC 65 MG PO (09:52)
[2021-05-13] MEDS: Acetaminophen 325 MG TABLET 650 MG PO (09:53)
[2021-05-13] MEDS: busPIRone HCl 10 MG TABLET 30 MG PO ×2 (09:53→20:52)
[2021-05-13] MEDS: Nicotine 14 MG PATCH.TD24 TRANSDERMA (09:53)
[2021-05-13] MEDS: Gabapentin 400 MG CAPSULE 800 MG PO ×3 (09:53→20:52)
[2021-05-13] MEDS: Multivitamin TABLET 1 TAB PO (09:53)
[2021-05-13] MEDS: Loratadine 10 MG TABLET PO (09:53)
[2021-05-13] MEDS: diazePAM 5 MG TABLET PO ×3 (09:53→20:52)
[2021-05-13] MEDS: Cyclobenzaprine HCl 5 MG TABLET PO ×2 (09:54→16:50)
[2021-05-13] MEDS: 0.9 % Sodium Chloride Flush 3 ML SYRINGE IVFLUSH ×2 (09:54→17:11)
[2021-05-13] MEDS: Aspirin 81 MG TAB.CHEW PO (09:54)
--- NOTE | 2021-05-13 11:29 | P.PNIM_ITS ---
Subjective Subjective Date of Service: 05/13/21 Interval History: lue swelling mostly resolved Respiratory Respiratory: Reports no additional respiratory complaints Gastrointestinal Gastrointestinal: Reports no additional gastrointestinal complaints Physical Exam Vital Signs: Vital Signs: Last Vital Signs Temp 97.3 F 05/13/21 08:00 Pulse 75 05/13/21 08:00 Resp 18 05/13/21 08:00 BP 120/79 05/13/21 08:00 Pulse Ox 98 05/13/21 08:00 Body Mass Index 29.3 General: AO X 3, no acute distress Resp:? CTA bilateral CVS: S1,S2,RRR GI: soft, non tender, non distended Neuro:? motor grossly intact Psych: appropriate affect Objective Data Current Medications Generic Name Dose Route Start Last Admin Trade Name Freq PRN Reason Stop Dose Admin Acetaminophen 650 mg 04/21/21 14:29 05/13/21 09:53 Acetaminophen 325 Mg Tablet PO 650 mg Q6H PRN Administration Pain, Mild (Pain Scale 1-3) Aspirin 81 mg 05/06/21 09:00 05/13/21 09:54 Aspirin 81 Mg Tab.Chew PO 81 mg DAILY EDER Administration Bismuth Subsalicylate 262 mg 05/06/21 12:55 05/13/21 09:52 Bismuth Subsalicylate 262 Mg Tablet PO 262 mg QID PRN Administration Indigestion Buspirone HCl 30 mg 04/27/21 09:30 05/13/21 09:53 Buspirone Hcl 10 Mg Tablet PO 30 mg BID EDER Administration Clonidine HCl 0.1 mg 04/21/21 14:34 05/12/21 21:06 Clonidine Hcl 0.1 Mg Tablet PO 0.1 mg TID PRN Administration Opiate Withdrawal Protocol Heparin Sodium (Porcine) 50 0 units 04/29/21 21:00 05/13/21 09:59 units/ Sodium Chloride 5 ml IVFLUSH Not Given TID EDER Cyclobenzaprine HCl 5 mg 05/01/21 20:16 05/13/21 09:54 Cyclobenzaprine Hcl 5 Mg Tablet PO 5 mg TID PRN Administration back pain Diazepam 5 mg 05/08/21 09:35 05/13/21 09:53 Diazepam 5 Mg Tablet PO 5 mg TID EDER Administration Diclofenac Sodium 50 mg 04/27/21 09:03 05/13/21 09:52 Diclofenac Sodium Delayed Rel 50 Mg Tablet.Dr PO 50 mg TID PRN Administration Pain Enoxaparin Sodium 40 mg 04/21/21 16:00 05/12/21 14:43 Enoxaparin Sodium 40 Mg/0.4 Ml Syringe SUBCUT Not Given Q24H [facility] Gabapentin 800 mg 04/21/21 21:00 05/13/21 09:53 Gabapentin 400 Mg Capsule PO 800 mg TID EDER Administration Hydroxyzine HCl 25 mg 04/21/21 17:00 05/13/21 09:52 Hydroxyzine Hcl 25 Mg Tablet PO 25 mg QID EDER Administration Hydroxyzine HCl 50 mg 05/05/21 17:42 05/12/21 17:20 Hydroxyzine Hcl 50 Mg Tablet PO 50 mg BID PRN Administration anxiety Vancomycin HCl 1,000 mg/ 270 mls @ 270 mls/hr 05/12/21 17:00 05/13/21 07:38 Sodium Chloride IV Infused Q12H [facility] Infusion Lactic Acid 1 appl 04/29/21 09:46 Ammonium Lactate 12 % Cream 140 Gm Tube TOPICAL BID PRN Dry Skin Protocol Lamotrigine 50 mg 04/22/21 09:00 05/13/21 09:52 Lamotrigine 25 Mg Tablet PO 50 mg DAILY [facility] Administration Loratadine 10 mg 05/06/21 13:30 05/13/21 09:53 Loratadine 10 Mg Tablet PO 10 mg DAILY [facility] Administration Magnesium Hydroxide 30 ml 05/10/21 10:25 05/12/21 15:49 Milk Of Magnesia 30 Ml Oral.Susp PO 30 ml TID PRN Administration constipatoin Melatonin 6 mg 04/24/21 22:50 05/05/21 20:43 Melatonin 3 Mg Tablet PO 6 mg BEDTIME PRN Administration Insomnia Methadone HCl 65 mg 05/11/21 09:00 05/13/21 09:52 Methadone Hcl 20 Mg/2 Ml Oral.Conc PO 65 mg DAILY [facility] Administration Multivitamins/Vitamin C 1 tab 05/06/21 13:30 05/13/21 09:53 Multivitamin Tablet PO 1 tab DAILY [facility] Administration Nicotine 14 mg 05/03/21 10:30 05/13/21 09:53 Nicotine 14 Mg Patch.Td24 TRANSDERMA 14 mg DAILY EDER Administration Nicotine Polacrilex 2 mg 04/25/21 01:18 05/12/21 15:49 Nicotine Polacrilex 2 Mg Gum BUCCAL 2 mg Q2H PRN Administration Nicotine Cravings Omeprazole 20 mg 04/21/21 16:30 05/13/21 05:55 Omeprazole 20 Mg Capsule. PO 20 mg BID@0630,5260 EDER Administration Ondansetron HCl 4 mg 04/21/21 14:29 Ondansetron Hcl 4 Mg/2 Ml Vial IVPUSH Q8H PRN Nausea and Vomiting Propranolol HCl 20 mg 05/05/21 17:42 05/12/21 15:49 Propranolol Hcl 20 Mg Tablet PO 20 mg Q6H PRN Administration Anxiety Protocol Simethicone 80 mg 05/01/21 10:25 05/11/21 17:10 Simethicone 80 Mg Tab.Chew PO 80 mg QIDWMHS PRN Administration Gas Sodium Chloride 3 ml 04/21/21 16:00 05/13/21 09:54 0.9 % Sodium Chloride Flush 3 Ml Syringe IVFLUSH 3 ml QSHIFT EDER Administration Topiramate 200 mg 04/22/21 09:00 05/13/21 09:52 Topiramate 100 Mg Tablet PO 200 mg DAILY EDER Administration Zolpidem Tartrate 5 mg 05/11/21 20:58 05/12/21 21:07 Zolpidem Tartrate 5 Mg Tablet PO 5 mg BEDTIME PRN Administration Insomnia Labs CBC & Chem 7: 04/29/21 07:49 05/12/21 06:14 Assessment and Plan (1) Bipolar 1 disorder, depressed: Status: Acute (2) MRSA bacteremia: Status: Acute Assessment and Plan: 41-year-old female with past medical history of IV drug who initially presented to the hospital on 04/03 with abscess, patient underwent I&D on 04/05 and was being treated for cellulitis/abscess and possible bacteremia but left AMA on 04/06.? She came back 2 days later but she left again AMA on the 20 of April. Went out and report using IV drugs again, came back to the hospital with intoxication and suicidal ideation. re-admitted to the medical floor to continue MRSA bacteremia treatment. ?MRSA bacteremia Repeat blood cultures negative Continue IV vancomycin 1g b.i.d. To finish treatment on 05/16/21 (initially 05/18, ok to end early for placement) midline placed 04/29/21, appeared infiltrated 8/21, doppler negative, removed and swelling improved, peripheral placed monitor labs as needed Suicidal ideation Denies any suicidal ideation at this point Psychiatry input appreciated, not suicidal anymore Opioid abuse and dependence Drug overdose Continue methadone, increased to 60mg, stopped morphine Atarax and clonidine as needed continue valium 5mg tid Vaginal discharge completed flagyl treatment for trichmonas mood disorder restarted buspar insomnia ambien HCV outpatient follow up DVT prophylaxis Heparin subQ Quality Stroke Does the patient have a stroke diagnosis?: No VTE Prior VTE?: No VTE Risk Level:: Medical - moderate - high VTE Device Contraindication: N/A - Device Ordered VTE Drug Contraindication: Treatment Not Indicated
[2021-05-13 12:00] VITALS: BP 112/71; PULSE 75; RESP 18; TEMP 36.2; O2SAT 98
--- NOTE | 2021-05-13 12:51 | MHC.RECOVRN ---
Referral sent to [facility] upon pts request, JOSE obtained.
[2021-05-13] MEDS: Nicotine Polacrilex 2 MG GUM BUCCAL (13:20)
[2021-05-13] MEDS: cloNIDine HCL 0.1 MG TABLET PO ×2 (13:20→20:52)
[2021-05-13 15:17] VITALS: BP 98/63; PULSE 78; RESP 17; TEMP 36; O2SAT 98
--- NOTE | 2021-05-13 16:37 | PM.EVENT ---
Event Note Date of Service: 05/13/21 Event Note: Addiction note: Patient requesting methadone increase. Currently at 65mg No withdrawal sx reported and does not appear to be in any discomfort. Plan: -patient to be discharged , will be following up with [facility]--additional dose increases can be discussed at that time. No additional dose increases during this admission -patient aware of plan and agreeable -last dose letter to be provided to patient at time of discharge
[2021-05-13 16:50] LABS: Creatinine Clr Calc Pharmacy 73.5; Estimated Glomerular Filt Rate 58
[2021-05-13] MEDS: Propranolol HCL 20 MG TABLET PO (16:50)
[2021-05-13 16:59] LABS: Vancomycin Trough 12.2 mcg/mL (10.0-20.0)
[2021-05-13 19:06] VITALS: BP 127/64; PULSE 71; RESP 16; TEMP 36.1; O2SAT 99
[2021-05-13 20:52] VITALS: BP 127/64; PULSE 71
[2021-05-13 23:55] VITALS: BP 102/54; PULSE 67; RESP 15; TEMP 36.1; O2SAT 96
[2021-05-14] VITALS (7 sets, daily range): BP systolic 92–155; BP diastolic 58–76; PULSE 66–72; RESP 18–20; TEMP 36.1–36.2; O2SAT 100
[2021-05-14] MEDS: 0.9 % Sodium Chloride Flush 3 ML SYRINGE IVFLUSH ×2 (00:31→11:32)
[2021-05-14] MEDS: vancomycin HCL 1,000 MG in 0.9 % Sodium Chloride 250 ML 250 MG IV (05:30)
[2021-05-14] MEDS: Omeprazole 20 MG CAPSULE.DR PO ×2 (05:47→16:51)
[2021-05-14] MEDS: hydrOXYzine HCL 50 MG TABLET PO (05:55)
[2021-05-14] MEDS: Propranolol HCL 20 MG TABLET PO ×2 (06:46→14:49)
[2021-05-14] MEDS: methADONE HCl 20 MG/2 ML ORAL.CONC 65 MG PO (08:36)
[2021-05-14] MEDS: Multivitamin TABLET 1 TAB PO (08:38)
[2021-05-14] MEDS: Loratadine 10 MG TABLET PO (08:38)
[2021-05-14] MEDS: hydrOXYzine HCL 25 MG TABLET PO ×4 (08:38→20:02)
[2021-05-14] MEDS: Cyclobenzaprine HCl 5 MG TABLET PO ×2 (08:38→16:55)
[2021-05-14] MEDS: Aspirin 81 MG TAB.CHEW PO (08:38)
[2021-05-14] MEDS: Gabapentin 400 MG CAPSULE 800 MG PO ×3 (08:38→20:02)
[2021-05-14] MEDS: busPIRone HCl 10 MG TABLET 30 MG PO ×2 (08:38→20:02)
[2021-05-14] MEDS: Nicotine Polacrilex 2 MG GUM BUCCAL (08:40)
[2021-05-14] MEDS: lamoTRIgine 25 MG TABLET 50 MG PO (08:40)
[2021-05-14] MEDS: Nicotine 14 MG PATCH.TD24 TRANSDERMA (08:40)
[2021-05-14] MEDS: Diclofenac Sodium Delayed Rel 50 MG TABLET.DR PO ×2 (08:41→16:55)
[2021-05-14] MEDS: Topiramate 100 MG TABLET 200 MG PO (08:43)
[2021-05-14] MEDS: diazePAM 5 MG TABLET PO ×3 (08:43→20:02)
[2021-05-14] MEDS: Simethicone 80 MG TAB.CHEW PO (08:47)
--- NOTE | 2021-05-14 09:40 | HO.PM.IMPN ---
Subjective Subjective Date of Service: 05/14/21 Interval History: no issues reported Cardiovascular Cardiovascular: Reports no additional cardiovascular complaints Respiratory Respiratory: Reports no additional respiratory complaints Physical Exam Vital Signs: Vital Signs: Last Vital Signs Temp 96.9 F 05/14/21 07:18 Pulse 66 05/14/21 07:18 Resp 18 05/14/21 07:18 BP 92/76 05/14/21 07:18 Pulse Ox 100 05/14/21 07:18 Body Mass Index 29.3 General: AO X 3, no acute distress Resp: CTA bilateral CVS: S1,S2,RRR GI: soft, non tender, non distended Neuro: motor grossly intact Psych: appropriate affect Objective Data Current Medications Generic Name Dose Route Start Last Admin Trade Name Freq PRN Reason Stop Dose Admin Acetaminophen 650 mg 04/21/21 14:29 05/13/21 09:53 Acetaminophen 325 Mg Tablet PO 650 mg Q6H PRN Administration Pain, Mild (Pain Scale 1-3) Aspirin 81 mg 05/06/21 09:00 05/14/21 08:38 Aspirin 81 Mg Tab.Chew PO 81 mg DAILY EDER Administration Bismuth Subsalicylate 262 mg 05/06/21 12:55 05/13/21 09:52 Bismuth Subsalicylate 262 Mg Tablet PO 262 mg QID PRN Administration Indigestion Buspirone HCl 30 mg 04/27/21 09:30 05/14/21 08:38 Buspirone Hcl 10 Mg Tablet PO 30 mg BID EDER Administration Clonidine HCl 0.1 mg 04/21/21 14:34 05/13/21 20:52 Clonidine Hcl 0.1 Mg Tablet PO 0.1 mg TID PRN Administration Opiate Withdrawal Protocol Heparin Sodium (Porcine) 50 0 units 04/29/21 21:00 05/13/21 20:54 units/ Sodium Chloride 5 ml IVFLUSH Not Given TID EDER Cyclobenzaprine HCl 5 mg 05/01/21 20:16 05/14/21 08:38 Cyclobenzaprine Hcl 5 Mg Tablet PO 5 mg TID PRN Administration back pain Diazepam 5 mg 05/08/21 09:35 05/14/21 08:43 Diazepam 5 Mg Tablet PO 5 mg TID EDER Administration Diclofenac Sodium 50 mg 04/27/21 09:03 05/14/21 08:41 Diclofenac Sodium Delayed Rel 50 Mg Tablet.Dr PO 50 mg TID PRN Administration Pain Enoxaparin Sodium 40 mg 04/21/21 16:00 05/13/21 15:33 Enoxaparin Sodium 40 Mg/0.4 Ml Syringe SUBCUT Not Given Q24H [facility] Gabapentin 800 mg 04/21/21 21:00 05/14/21 08:38 Gabapentin 400 Mg Capsule PO 800 mg TID EDER Administration Hydroxyzine HCl 25 mg 04/21/21 17:00 05/14/21 08:38 Hydroxyzine Hcl 25 Mg Tablet PO 25 mg QID EDER Administration Hydroxyzine HCl 50 mg 05/05/21 17:42 05/14/21 05:55 Hydroxyzine Hcl 50 Mg Tablet PO 50 mg BID PRN Administration anxiety Vancomycin HCl 1,000 mg/ 270 mls @ 270 mls/hr 05/12/21 17:00 05/14/21 06:48 Sodium Chloride IV Infused Q12H [facility] Infusion Lactic Acid 1 appl 04/29/21 09:46 Ammonium Lactate 12 % Cream 140 Gm Tube TOPICAL BID PRN Dry Skin Protocol Lamotrigine 50 mg 04/22/21 09:00 05/14/21 08:40 Lamotrigine 25 Mg Tablet PO 50 mg DAILY [facility] Administration Loratadine 10 mg 05/06/21 13:30 05/14/21 08:38 Loratadine 10 Mg Tablet PO 10 mg DAILY [facility] Administration Magnesium Hydroxide 30 ml 05/10/21 10:25 05/12/21 15:49 Milk Of Magnesia 30 Ml Oral.Susp PO 30 ml TID PRN Administration constipatoin Melatonin 6 mg 04/24/21 22:50 05/05/21 20:43 Melatonin 3 Mg Tablet PO 6 mg BEDTIME PRN Administration Insomnia Methadone HCl 65 mg 05/11/21 09:00 05/14/21 08:36 Methadone Hcl 20 Mg/2 Ml Oral.Conc PO 65 mg DAILY [facility] Administration Multivitamins/Vitamin C 1 tab 05/06/21 13:30 05/14/21 08:38 Multivitamin Tablet PO 1 tab DAILY [facility] Administration Nicotine 14 mg 05/03/21 10:30 05/14/21 08:40 Nicotine 14 Mg Patch.Td24 TRANSDERMA 14 mg DAILY [facility] Administration Nicotine Polacrilex 2 mg 04/25/21 01:18 05/14/21 08:40 Nicotine Polacrilex 2 Mg Gum BUCCAL 2 mg Q2H PRN Administration Nicotine Cravings Omeprazole 20 mg 04/21/21 16:30 05/14/21 05:47 Omeprazole 20 Mg Capsule. PO 20 mg BID@0630,0990 EDER Administration Ondansetron HCl 4 mg 04/21/21 14:29 Ondansetron Hcl 4 Mg/2 Ml Vial IVPUSH Q8H PRN Nausea and Vomiting Propranolol HCl 20 mg 05/05/21 17:42 05/14/21 06:46 Propranolol Hcl 20 Mg Tablet PO 20 mg Q6H PRN Administration Anxiety Protocol Simethicone 80 mg 05/01/21 10:25 05/14/21 08:47 Simethicone 80 Mg Tab.Chew PO 80 mg QIDWMHS PRN Administration Gas Sodium Chloride 3 ml 04/21/21 16:00 05/14/21 00:31 0.9 % Sodium Chloride Flush 3 Ml Syringe IVFLUSH 3 ml QSHIFT EDER Administration Topiramate 200 mg 04/22/21 09:00 05/14/21 08:43 Topiramate 100 Mg Tablet PO 200 mg DAILY EDER Administration Zolpidem Tartrate 5 mg 05/11/21 20:58 05/12/21 21:07 Zolpidem Tartrate 5 Mg Tablet PO 5 mg BEDTIME PRN Administration Insomnia Labs CBC & Chem 7: 04/29/21 07:49 05/13/21 16:08 Labs: Laboratory Results - last 24 hr 05/13/21 05/13/21 16:08 16:08 Estim Creat Clear Calc 73.5 Estimated GFR 58 Vancomycin Trough 12.2 Assessment and Plan (1) Bipolar 1 disorder, depressed: Status: Acute (2) MRSA bacteremia: Status: Acute Assessment and Plan: 41-year-old female with past medical history of IV drug who initially presented to the hospital on 04/03 with abscess, patient underwent I&D on 04/05 and was being treated for cellulitis/abscess and possible bacteremia but left AMA on 04/06.? She came back 2 days later but she left again AMA on the 20 of April. Went out and report using IV drugs again, came back to the hospital with intoxication and suicidal ideation. re-admitted to the medical floor to continue MRSA bacteremia treatment. ?MRSA bacteremia Repeat blood cultures negative Continue IV vancomycin 1g b.i.d. To finish treatment on 05/16/21 (initially 05/18, ok to end early for placement) midline placed 04/29/21, appeared infiltrated 05/11, doppler negative, removed and swelling improved, peripheral placed monitor labs as needed Suicidal ideation Denies any suicidal ideation at this point Psychiatry input appreciated, not suicidal anymore Opioid abuse and dependence Drug overdose Continue methadone, increased to 65mg Atarax and clonidine as needed continue valium 5mg tid Vaginal discharge completed flagyl treatment for trichimonas mood disorder buspar insomnia ambien HCV outpatient follow up DVT prophylaxis Heparin subQ Quality Stroke Does the patient have a stroke diagnosis?: No VTE Prior VTE?: No VTE Risk Level:: Medical - moderate - high VTE Device Contraindication: N/A - Device Ordered VTE Drug Contraindication: Treatment Not Indicated
[2021-05-14 11:27] LABS: Creatinine Clr Calc Pharmacy 82.4; Estimated Glomerular Filt Rate > 60
[2021-05-14] MEDS: cloNIDine HCL 0.1 MG TABLET PO (11:30)
--- NOTE | 2021-05-14 13:41 | MHC.CM.PN ---
SANDRA INFORMED PT WILL BE DISCHARGED TOMORROW. SANDRA CALLED WANDER ([phone]) AT THE [facility] AND INFORMED HER OF THE PENDING DC. SHE REPORTS THEY ARE ABLE TO ACCEPT PT TOMORROW HOWEVER THEY WILL NEED HER SENT VIA TAXI IN THE MORNING SHE HAS TO COMPLETE A 3 HOUR ORIENTATION PRIOR TO BEING MOVED TO HER DETENTION AT 4PM. WANDER ALSO ASKED THAT PT CALL HER AT 1415 HOURS TODAY TO DETERMINE IF THERE IS ANYTHING ELSE SHE MAY NEED ON ARRIVAL. MESSAGE DELIVERED TO PT. PT WILL DC TO [facility] TOMORROW AT 1100 HOURS VIA TAXI TO [address] [place] [address]
[2021-05-14 14:30] LABS: Transglutaminase IgA 1 U/mL
[2021-05-14] MEDS: Zolpidem Tartrate 5 MG TABLET PO (22:47)
[2021-05-15] VITALS: BP 125/79; PULSE 70; RESP 18; TEMP 36.1; O2SAT 99
[2021-05-15 03:49] VITALS: RESP 18
[2021-05-15 04:00] VITALS: RESP 18
--- NOTE | 2021-05-15 05:27 | PC.NURSE ---
ELKE PER HOSPITALIST ON DUTY NOT TO DRAW VANCOMYCIN TROUGH SCHEDULED FOR 0400 MEDICATION HAS BEEN PREVIOUSLY COMPLETED/DISCONTINUED.
[2021-05-15 07:37] VITALS: BP 102/60; PULSE 77; RESP 18; TEMP 36; O2SAT 100
[2021-05-15] MEDS: Diclofenac Sodium Delayed Rel 50 MG TABLET.DR PO (08:01)
[2021-05-15] MEDS: busPIRone HCl 10 MG TABLET 30 MG PO (08:01)
[2021-05-15] MEDS: methADONE HCl 20 MG/2 ML ORAL.CONC 65 MG PO (08:01)
[2021-05-15] MEDS: Nicotine Polacrilex 2 MG GUM BUCCAL (08:02)
[2021-05-15] MEDS: Cyclobenzaprine HCl 5 MG TABLET PO (08:02)
[2021-05-15] MEDS: Omeprazole 20 MG CAPSULE.DR PO (08:02)
[2021-05-15] MEDS: Multivitamin TABLET 1 TAB PO (08:02)
[2021-05-15] MEDS: Gabapentin 400 MG CAPSULE 800 MG PO (08:02)
[2021-05-15] MEDS: Topiramate 100 MG TABLET 200 MG PO (08:02)
[2021-05-15] MEDS: Nicotine 14 MG PATCH.TD24 TRANSDERMA (08:02)
[2021-05-15] MEDS: lamoTRIgine 25 MG TABLET 50 MG PO (08:02)
[2021-05-15] MEDS: Loratadine 10 MG TABLET PO (08:02)
[2021-05-15] MEDS: hydrOXYzine HCL 25 MG TABLET PO (08:02)
[2021-05-15] MEDS: Aspirin 81 MG TAB.CHEW PO (08:02)
[2021-05-15] MEDS: diazePAM 5 MG TABLET PO (08:02)
--- NOTE | 2021-05-15 08:47 | MHC.CM.PN ---
Addendum entered by Margi Soto 05/15/21 10:18: A [facility]YFT HAS BEEN REQUESTED FOR TRANSPORT. PER SITE, PTS RIDE SHOULD BE HERE BETWEEN 1050 AND 1105 HOURS. Original Note: PT SCHEDULED TO DC TO [facility] TODAY AT 1100 HOURS VIA TAXI. CM CONTACTED THE [facility] [employer]HER [employer] W[employer]ER, WANDER ([phone]) AND CONFIRMED DC. WANDER REPORTS THEY WOULD PREFER PTS MEDS BE SENT ELECTRONICALLY TO [facility] @ [address] [place] [address] IN [facility] (STORE #[id number]) HOWEVER IF PT NEEDED TO BRING PAPER SCRIPTS, WANDER WILL ENSURE SOMEONE GOES TO GET THEM FOR THE PT. CM CALLED [facility] ([phone]) AND SPOKE TO PHARMACIST TO ENSURE PTS BENZODIAZEPINE PRESCRIPTIONS COULD BE SENT ELECTRONICALLY. CM WAS INFORMED THIS SHOULD NOT BE A PROBLEM AND THIS IS THE PREFERRED METHOD OF DELIVERY. HOSPITALIST INFORMED THE MEDS SHOULD GO ELECTRONICALLY AND THE PREFERRED PHARMACY INFORMATION WAS PROVIDED. RECOVERY NURSE MET WITH PT THIS MORNING TO REVIEW REFERRALS THAT WERE MADE AND WHERE PT WILL BE RECEIVING MMTP. PT WILL DC TO [facility] TODAY WITH REFERRALS TO [facility] FOR OUTPATIENT THERAPY AND PSYCH AND [facility] FOR MMTP. PT WILL BE TRANSPORTED VIA TAXI OR LYFT DEPENDING ON CAR AVAILABILITY.
--- NOTE | 2021-05-15 08:52 | PM.DS ---
DS: Providers Provider Date of Service: 05/15/21 Date of admission: 04/21/21 14:29 Primary care physician: Cici Corey MD Consults: 04/21/21 10:39 Consult to Care Team Stat Comment: Reason for consultation: SI with cellulitis Hospitalist demands you see before she can be admitted. 04/21/21 14:35 Consult to Psychiatry Routine Consulting Provider: [place] [place] for consultation: Suicidal ideation, aggressive behavior for yor eval and med rec. 04/21/21 14:54 Consult to Infectious Diseases Routine Consulting Provider: Winnie Saeed Reason for consultation: MRSA bacteremia, came back after leaving AMA 04/21/21 14:56 Consult for Sitter Routine Reason for consultation: For suicidal risk DS: Diagnosis Discharge Diagnosis (1) Bipolar 1 disorder, depressed: Status: Acute (2) MRSA bacteremia: Status: Acute DS: Medications Discharge Medications Home Medications: Home Medications Medication Instructions Recorded Confirmed multivitamin (Daily-Angle) 1 tab PO DAILY 12/04/20 05/02/21 Previous Rx's Medication Instructions Recorded aspirin 81 mg chewable tablet 81 mg PO DAILY #30 tab 05/15/21 buspirone 30 mg tablet 30 mg PO BID 7 Days #60 tab 05/15/21 clonidine HCl 0.1 mg tablet 0.1 mg PO TID PRN #90 tab 05/15/21 cyanocobalamin (vitamin B-12) 1,000 mcg PO DAILY #30 tab 05/15/21 1,000 mcg tablet (Vitamin B-12) cyclobenzaprine 5 mg tablet 5 mg PO TID PRN #90 tab 05/15/21 diazepam 5 mg tablet 1 tab PO TID #90 tab 05/15/21 diclofenac sodium 50 mg 50 mg PO TID PRN #90 tab 05/15/21 tablet,delayed release gabapentin 800 mg tablet 800 mg PO TID 7 Days #90 tab 05/15/21 hydroxyzine HCl 25 mg tablet 25 mg PO QID #120 tab 05/15/21 hydroxyzine pamoate 50 mg capsule 1 cap PO BID PRN #60 cap 05/15/21 lamotrigine 25 mg tablet 50 mg PO DAILY #30 tab 05/15/21 loratadine 10 mg tablet (Claritin) 10 mg PO DAILY #30 tab 05/15/21 methadone 10 mg/mL oral 65 mg PO DAILY #0 ml 05/15/21 concentrate (Methadose) omeprazole 20 mg capsule,delayed 20 mg PO BID@0630,1630 #60 cap 05/15/21 release propranolol 20 mg tablet 20 mg PO Q6H PRN #120 tab 05/15/21 topiramate 200 mg tablet 200 mg PO DAILY 7 Days #30 tab 05/15/21 zolpidem 5 mg tablet 5 mg PO BEDTIME PRN #30 tab 05/15/21 DS: Summary Hospital Course Hospital Course: Patient was admitted to continue treatment for her MRSA bacteremia. She completed between five and six weeks of IV vancomycin. Due to recurrent complications with peripheral and central IVs decision was made to not complete last 4 days of antibiotics. Blood cultures remain negative. She also completed treatment for Trichomonas. She was seen by aviation technical systems specialist team and methadone was increased to 65mg daily. she has completed her treatment and will be discharged to [facility]. Time Spent with Patient Time attestation: Total time spent providing and/or coordinating discharge services: Discharge coordination time: Greater than 30 minutes Quality: Stroke Does the patient have a stroke diagnosis?: No Physical Exam Vital Signs: Vital Signs: Last Vital Signs Temp 96.8 F 05/15/21 07:37 Pulse 77 05/15/21 07:37 Resp 18 05/15/21 07:37 BP 102/60 05/15/21 07:37 Pulse Ox 100 05/15/21 07:37 Body Mass Index 29.3 General: AO X 3, no acute distress Resp: CTA bilateral CVS: S1,S2,RRR GI: soft, non tender, non distended Neuro: motor grossly intact Psych: appropriate affect DS: Data Data Completed and Pending Completed studies during hospitalization [Text1]: Procedures Drainage of Right Upper Arm Subcutaneous Tissue and Fascia, Open Approach (04/03/21) Insertion of Infusion Device into Left Basilic Vein, Percutaneous Approach (04/07/21) Insertion of Infusion Device into Left Brachial Vein, Percutaneous Approach (01/03/21) Labs on day of discharge: Laboratory Results - last 24 hr 05/07/21 05/14/21 06:01 10:43 Creatinine 0.92 Estim Creat Clear Calc 82.4 Estimated GFR > 60 Tiss Transglutamin IgA 1 Discharge Plan Discharge Patient Disposition: Xfer Other Discharge Diagnosis: mrsa bacteremia Referrals: Cici Corey MD [Primary Care Provider] - 1 Week Discharge Medications: New clonidine HCl 0.1 mg Tablet 0.1 mg PO TID PRN (Reason: Opiate Withdrawal) Qty: 90 RF: 0 lamotrigine 25 mg Tablet 50 mg PO DAILY Qty: 30 RF: 0 omeprazole 20 mg Capsule,Delayed Release(Dr/Ec) 20 mg PO BID@0630,1630 Qty: 60 RF: 0 hydroxyzine HCl 25 mg Tablet 25 mg PO QID Qty: 120 RF: 0 methadone [Methadose] 10 mg/mL Concentrate 65 mg PO DAILY Qty: 0 RF: 0 cyclobenzaprine 5 mg Tablet 5 mg PO TID PRN (Reason: back pain) Qty: 90 RF: 0 Continued multivitamin [Daily-Angle] Tablet 1 tab PO DAILY RF: 0 cyanocobalamin (vitamin B-12) [Vitamin B-12] 1,000 mcg tablet 1,000 mcg PO DAILY Qty: 30 RF: 0 hydroxyzine pamoate 50 mg capsule 1 cap PO BID PRN (Reason: anxiety) Qty: 60 RF: 0 gabapentin 800 mg tablet 800 mg PO TID 7 Days Qty: 90 RF: 0 buspirone 30 mg tablet 30 mg PO BID 7 Days Qty: 60 RF: 0 topiramate 200 mg tablet 200 mg PO DAILY 7 Days Qty: 30 RF: 0 diclofenac sodium 50 mg tablet,delayed release (DR/EC) 50 mg PO TID PRN (Reason: Pain) Qty: 90 RF: 0 zolpidem 5 mg tablet 5 mg PO BEDTIME PRN (Reason: Insomnia) Qty: 30 RF: 0 propranolol 20 mg tablet 20 mg PO Q6H PRN (Reason: Anxiety) Qty: 120 RF: 0 loratadine [Claritin] 10 mg tablet 10 mg PO DAILY Qty: 30 RF: 0 diazepam 5 mg tablet 1 tab PO TID Qty: 90 RF: 0 Changed aspirin 81 mg tablet,chewable 81 mg PO DAILY Qty: 30 RF: 0 Discontinued methadone 10 mg/mL Concentrate 90 mg PO DAILY RF: 0 lamotrigine 25 mg tablet 150 mg PO DAILY RF: 0 cyclobenzaprine 10 mg tablet 1 tab PO TID PRN (Reason: Breakthrough Pain) RF: 0 Discharge Orders: Discharge Order (Routine); Ordered 05/15/21 Ordered By: Rubin Saeed Diet: advance to usual diet Activity on Discharge: As tolerated Stand Alone Forms: Patient Portal Discharge page Care Plan Goals: recovery Health Concerns: opioid dependence Plan of Treatment: avoid opiates Assessment: see above
--- NOTE | 2021-05-15 10:37 | MHC.RECOVRN ---
T/w met with pt to follow up regarding discharge plans. Pt is future oriented and looking forward to this next step. Pt reassured that referral has been sent to [facility]. Pt has been accepted to [facility] on , last dose letter was sent to [facility] and a copy given to pt. [facility] aware pt will begin dosing tomorrow. Discussed with CM as well as Liset Brambila APRN.
== END 2021-05-15 10:57 | disposition other institution (70) | DRG 812 ==
LOC: HO.ED 10:05 → HO.EDOVER 15:02 → HO.S3 19:09
PROVIDERS: Admitting Provider Student in an Organized Health Care Education/Training Program; Emergency Provider Student in an Organized Health Care Education/Training Program; PCP Internal Medicine; Visit Provider Internal Medicine
DX: T40.2X1A Poisoning by other opioids, accidental (unintentional), initial encounter (principal); R45.851 Suicidal ideations; R78.81 Bacteremia; F31.9 Bipolar disorder, unspecified; F11.20 Opioid dependence, uncomplicated; B19.20 Unspecified viral hepatitis C without hepatic coma; A59.01 Trichomonal vulvovaginitis; F14.10 Cocaine abuse, uncomplicated; B95.62 Methicillin resistant Staphylococcus aureus infection as the cause of diseases classified elsewhere; Y92.9 Unspecified place or not applicable; K59.00 Constipation, unspecified; F11.23 Opioid dependence with withdrawal; G47.00 Insomnia, unspecified; F17.210 Nicotine dependence, cigarettes, uncomplicated; Z20.822 Contact with and (suspected) exposure to COVID-19; Z71.6 Tobacco abuse counseling; Z88.2 Allergy status to sulfonamides; Z79.899 Other long term (current) drug therapy
CPT/HCPCS: 36410; 36415; 80048; 80202; 80307; 81003; 82565; 83516; 85025; 85027; 87040; 87491; 87591; 87635; 93005; 93971; 96360; 99285; J1642; J1650; J1885; J2060; J2270; J3370

== ENCOUNTER 2021-05-22 17:41 | Emergency (ER) | payer OTHER, SELFPAY ==
[2021-05-22 18:02] VITALS: BP 118/61; PULSE 56; O2SAT 98
[2021-05-22 18:06] VITALS: BP 128/68; PULSE 56; RESP 16; TEMP 36.1; O2SAT 97; BMI 22.3
[2021-05-22 20:18] VITALS: RESP 14
--- NOTE | 2021-05-22 21:56 | ED.GENADULT ---
HPI - General Adult General Chief complaint: ETOH/Substance Use <Sukhdev Palacios MD - Last Filed: 05/22/21 22:05> Stated complaint: AMS,LETHARGIC,[place] POINT PUPILS,DENIES DRUG USE <Sukhdev Palacios MD - Last Filed: 05/22/21 22:05> Time Seen by Provider: 05/22/21 18:04 <Sukhdev Palacios MD - Last Filed: 05/22/21 22:05> Source: patient <Sukhdev Palacios MD - Last Filed: 05/22/21 22:05> Mode of arrival: ambulatory <Sukhdev Palacios MD - Last Filed: 05/22/21 22:05> Limitations: no limitations <Sukhdev Palacios MD - Last Filed: 05/22/21 22:05> History of Present Illness HPI narrative: 41-year-old female who presents emergency department for evaluation of altered level of consciousness. Patient was found in an alley, passed out, an ambulance was called the patient was brought to the emergency department The patient is well-known to the emergency department. She has a history of polysubstance abuse. She did tell the nurse that she used cocaine but denied using any other substances. On presentation the patient is somnolent but arousable, she has no complaints. She denied using opiates. <Sukhdev Palacios MD - Last Filed: 05/22/21 22:05> Related Data Home medications: Home Medications Medication Instructions Recorded Confirmed multivitamin (Daily-Angle) 1 tab PO DAILY 12/04/20 05/02/21 methadone 10 mg/mL oral 75 mg PO DAILY 05/23/21 concentrate (Methadose) Previous Rx's Medication Instructions Recorded aspirin 81 mg chewable tablet 81 mg PO DAILY #30 tab 05/15/21 buspirone 30 mg tablet 30 mg PO BID 7 Days #60 tab 05/15/21 clonidine HCl 0.1 mg tablet 0.1 mg PO TID PRN #90 tab 05/15/21 cyanocobalamin (vitamin B-12) 1,000 mcg PO DAILY #30 tab 05/15/21 1,000 mcg tablet (Vitamin B-12) cyclobenzaprine 5 mg tablet 5 mg PO TID PRN #90 tab 05/15/21 diazepam 5 mg tablet 1 tab PO TID #90 tab 05/15/21 diclofenac sodium 50 mg 50 mg PO TID PRN #90 tab 05/15/21 tablet,delayed release gabapentin 800 mg tablet 800 mg PO TID 7 Days #90 tab 05/15/21 hydroxyzine HCl 25 mg tablet 25 mg PO QID #120 tab 05/15/21 hydroxyzine pamoate 50 mg capsule 1 cap PO BID PRN #60 cap 05/15/21 lamotrigine 25 mg tablet 50 mg PO DAILY #30 tab 05/15/21 loratadine 10 mg tablet (Claritin) 10 mg PO DAILY #30 tab 05/15/21 omeprazole 20 mg capsule,delayed 20 mg PO BID@0630,1630 #60 cap 05/15/21 release propranolol 20 mg tablet 20 mg PO Q6H PRN #120 tab 05/15/21 topiramate 200 mg tablet 200 mg PO DAILY 7 Days #30 tab 05/15/21 zolpidem 5 mg tablet 5 mg PO BEDTIME PRN #30 tab 05/15/21 <Sukhdev Palacios MD - Last Filed: 05/22/21 22:05> Allergies/adverse reactions: Allergies Allergy/AdvReac Type Severity Reaction Status Date / Time azithromycin [AZITHROMYCIN] Allergy Unknown UNK Verified 05/22/21 18:18 erythromycin base Allergy Unknown RASH Verified 05/22/21 18:18 [ERYTHROMYCIN BASE] olanzapine [From ZYPREXA] Allergy Unknown PEDAL EDEMA Verified 05/22/21 18:18 quetiapine [From SEROQUEL] Allergy Unknown THROAT Verified 05/22/21 18:18 SWELLING risperidone [From RISPERDAL] Allergy Unknown TWITCHING Verified 05/22/21 18:18 shellfish derived Allergy Unknown VOMITING Verified 05/22/21 18:18 [SHELLFISH DERIVED] sulfacetamide Allergy Unknown Unknown Verified 05/22/21 18:18 [From Sulfacet-R] sulfamethoxazole Allergy Unknown ITCHING Verified 05/22/21 18:18 [From BACTRIM] sulfur [From Sulfacet-R] Allergy Unknown Unknown Verified 05/22/21 18:18 trimethoprim [From BACTRIM] Allergy Unknown ITCHING Verified 05/22/21 18:18 seafood AdvReac Unknown Vomiting Verified 05/22/21 18:18 <Sukhdev Palacios MD - Last Filed: 05/22/21 22:05> Review of Systems Review of Systems: Yes Unobtainable due to mental condition <Sukhdev Palacios MD - Last Filed: 05/22/21 22:05> [facility] Past Medical History Medical History: Medical History Opioid dependence Substance abuse Substance abuse <Sukhdev Palacios MD - Last Filed: 05/22/21 22:05> Social History Social History: Social History Household Members: Family Housing: House Housing Other:: patient states she is homeless Do you presently have visiting nurse or other home services: No Unable to assess alcohol history related to: Unknown Alcohol intake: current Alcohol intake frequency: does not drink Patient Tobacco Use Status: Current everyday Tobacco user Tobacco use type: Cigarette Cigarette Packs Per Day: 0 Cigarettes Per Day: 3 Years Smoked: 10 Second Hand Smoke Exposure: No Use of substances other than those prescribed or required for medical reasons: Yes Substance Use Type: Crack/Cocaine, Heroin and IV Drugs Substance Use Frequency: Chronic Longstanding Advance Directives: Yes Advance Directives on File: Yes Advance Directives Date on File: 04/03/21 Patient : No service: No Current occupational status: disabled <Sukhdev Palacios MD - Last Filed: 05/22/21 22:05> Physical Exam Vital Signs: Vital Signs: Last Vital Signs Temp 98.1 F 05/23/21 11:03 Pulse 65 05/23/21 11:03 Resp 16 05/23/21 11:03 BP 102/60 05/23/21 11:03 Pulse Ox 98 05/23/21 11:03 Body Mass Index 22.3 <Sukhdev Palacios MD - Last Filed: 05/22/21 22:05> Vital Signs: Last Vital Signs Temp 98.1 F 05/23/21 11:03 Pulse 65 05/23/21 11:03 Resp 16 05/23/21 11:03 BP 102/60 05/23/21 11:03 Pulse Ox 98 05/23/21 11:03 Body Mass Index 22.3 <Dalila Parr MD - Last Filed: 05/23/21 13:43> Const: Other: Somnolent but arousable, unkempt <MD Ej Shah Last Filed: 05/22/21 22:05> HENMT: Head: Yes normal to inspection, Yes normocephalic and Yes atraumatic <MD Ej Shah Last Filed: 05/22/21 22:05> Ears: external ears normal <MD Ej Shah Last Filed: 05/22/21 22:05> General nose exam: Normal external nose present <MD Ej Shah Last Filed: 05/22/21 22:05> Face and sinus: Yes normal facial exam <MD Ej Shah Last Filed: 05/22/21 22:05> Mouth: Normal oral and palatal mucosa present <MD Ej Shah Last Filed: 05/22/21 22:05> Throat: Yes posterior oropharynx normal <MD Ej Shah Last Filed: 05/22/21 22:05> Eyes: Periorbital: periorbital findings normal <MD Ej Shah Last Filed: 05/22/21 22:05> Eyelids: Yes eyelids normal <MD Ej Shah Last Filed: 05/22/21 22:05> Conjunctivae: conjunctivae normal <MD Ej Shah Last Filed: 05/22/21 22:05> Sclerae: sclerae normal <MD Ej Shah Last Filed: 05/22/21 22:05> Corneas: corneas normal <MD Ej Shah Last Filed: 05/22/21 22:05> Pupils: Pupil size comments bilaterally 2 <MD Ej Shah Last Filed: 05/22/21 22:05> EOM: EOMs intact bilaterally <MD Ej Shah Last Filed: 05/22/21 22:05> Neck: Neck: Yes normal visual inspection, Yes trachea midline and Yes supple <MD Ej Shah Last Filed: 05/22/21 22:05> Chest: Chest palpation & inspection: normal palpation of entire chest wall <Sukhdev Palacios MD - Last Filed: 05/22/21 22:05> Resp: Effort & Inspection: normal respiratory effort <MD Ej Shah Last Filed: 05/22/21 22:05> Auscultation: clear to auscultation bilaterally <Sukhdev Palacios MD - Last Filed: 05/22/21 22:05> Cardio: Rate: regular rate <Sukhdev Palacios MD - Last Filed: 05/22/21 22:05> Rhythm: regular rhythm <Sukhdev Palacios MD - Last Filed: 05/22/21 22:05> Heart sounds: S1 normal heart sound present and S2 normal heart sound present <Sukhdev Palacios MD - Last Filed: 05/22/21 22:05> GI: Inspection: Yes normal to inspection <Sukhdev Palacios MD - Last Filed: 05/22/21 22:05> Palpation (GI): Soft to palpation, nontender and no guarding <Sukhdev Palacios MD - Last Filed: 05/22/21 22:05> : General: Yes no CVA tenderness <Sukhdev Palacios MD - Last Filed: 05/22/21 22:05> Back/Spine/Pelvis: Back: no CVA tenderness <Sukhdev Palacios MD - Last Filed: 05/22/21 22:05> Neuro: Other: Somnolent but arousable <Sukhdev Palacios MD - Last Filed: 05/22/21 22:05> Course Course Course Narrative: 41-year-old female who was brought to the emergency department for evaluation of altered level of consciousness. Patient is well-known to the emergency department she has had similar presentations in the past. The patient has a history of polysubstance abuse and she states she was using cocaine. The patient was placed on O2 saturation monitor. The patient will be kept in the emergency department until she is awake enough to be discharged. 2200: Physician observation started at 2200. Patient placed in physician observation because the patient needed more time for observation of her respiratory status and vital signs secondary to polysubstance abuse. At the time observation was started the patient's vitals were stable, patient examination reveals she is still somnolent, Neuro: nonfocal, CV normal, RRR, Lungs clear. The patient will be placed in physician observation and the patient's care was turned over to my colleague, Dr. Viveros. <Sukhdev Palacios MD - Last Filed: 05/22/21 22:05> Medical Decision Making Lab Data Result diagrams: : 05/23/21 10:25 05/23/21 10:25 <Sukhdev Palacios MD - Last Filed: 05/22/21 22:05> Labs: Lab Results 05/23/21 05/23/21 05/23/21 Range/Units 10:25 10:25 12:03 WBC 4.1 L (4.8-10.8) X10*3/uL RBC 4.36 (4.20-5.50) X10*6/uL Hgb 12.9 (12.0-16.0) g/dl Hct 37.8 (37-47) % MCV 86.7 (80-98) fL MCH 29.6 (27.0-33.0) pg MCHC 34.1 (31.0-35.0) g/dl RDW 12.9 (11.0-16.0) % Plt Count 169 (160-400) X10*3/uL MPV 9.6 (9.4-12.3) fL Immature Gran % (Auto) 0.2 (0.0-0.4) % Neut % (Auto) 58.8 (45-73) % Lymph % (Auto) 32.0 (20-40) % [place] % (Auto) 5.6 (2-11) % Eos % (Auto) 2.9 (0-4) % Baso % (Auto) 0.5 (0-2) % Lymph # (Auto) 1.3 (1.2-4.9) X10*3/uL [place] # (Auto) 0.2 (0.1-1.2) X10*3/uL Eos # (Auto) 0.1 (0.0-0.4) X10*3/uL Baso # (Auto) 0.0 (0.0-0.2) X10*3/uL Abs Immat Gran (auto) 0.01 (0.00-0.03) X10*3/uL Absolute Neuts (auto) 2.4 (2.0-8.3) X10*3/uL Absolute Nucleated RBC 0.000 (0.0-0.012) X10*3/uL Nucleated RBC % (auto) 0.0 (0.0-0.2) /100WBC Sodium 135 (135-145) mmol/L Potassium 4.0 (3.3-5.1) mmol/L Chloride 109 H (96-108) mmol/L Carbon Dioxide 19 L (22-29) mmol/L Anion Gap 11 L (12-20) BUN 18 H (9-16) mg/dL Creatinine 0.78 (0.5-1.4) mg/dL Estim Creat Clear Calc 80.2 Estimated GFR > 60 Random Glucose 142 H (60-115) mg/dL Calcium 9.4 (8.4-10.2) mg/dL Total Bilirubin 0.6 (0.0-1.0) mg/dL Direct Bilirubin 0.2 (0.0-0.5) mg/dL AST 78 H (5-31) U/L ALT 53 H (0-31) U/L Alkaline Phosphatase 116 (39-117) U/L Total Protein 6.9 (6.5-8.0) g/dL Albumin 3.9 (3.5-5.0) g/dL Lipase 12 (8-78) U/L Urine Opiates Screen POSITIVE H (Not Detect) Urine Fentanyl Screen POSITIVE H (Not Detect) Ur Barbiturates Screen Not Detected (Not Detect) Ur Phencyclidine Scrn Not Detected (Not Detect) Ur Amphetamines Screen Not Detected (Not Detect) U Benzodiazepines Scrn POSITIVE H (Not Detect) Urine Cocaine Screen POSITIVE H (Not Detect) U Marijuana (THC) Screen Not Detected (Not Detect) <Sukhdev Palacios MD - Last Filed: 05/22/21 22:05> Lab Results 05/23/21 05/23/21 05/23/21 Range/Units 10:25 10:25 12:03 WBC 4.1 L (4.8-10.8) X10*3/uL RBC 4.36 (4.20-5.50) X10*6/uL Hgb 12.9 (12.0-16.0) g/dl Hct 37.8 (37-47) % MCV 86.7 (80-98) fL MCH 29.6 (27.0-33.0) pg MCHC 34.1 (31.0-35.0) g/dl RDW 12.9 (11.0-16.0) % Plt Count 169 (160-400) X10*3/uL MPV 9.6 (9.4-12.3) fL Immature Gran % (Auto) 0.2 (0.0-0.4) % Neut % (Auto) 58.8 (45-73) % Lymph % (Auto) 32.0 (20-40) % [place] % (Auto) 5.6 (2-11) % Eos % (Auto) 2.9 (0-4) % Baso % (Auto) 0.5 (0-2) % Lymph # (Auto) 1.3 (1.2-4.9) X10*3/uL [place] # (Auto) 0.2 (0.1-1.2) X10*3/uL Eos # (Auto) 0.1 (0.0-0.4) X10*3/uL Baso # (Auto) 0.0 (0.0-0.2) X10*3/uL Abs Immat Gran (auto) 0.01 (0.00-0.03) X10*3/uL Absolute Neuts (auto) 2.4 (2.0-8.3) X10*3/uL Absolute Nucleated RBC 0.000 (0.0-0.012) X10*3/uL Nucleated RBC % (auto) 0.0 (0.0-0.2) /100WBC Sodium 135 (135-145) mmol/L Potassium 4.0 (3.3-5.1) mmol/L Chloride 109 H (96-108) mmol/L Carbon Dioxide 19 L (22-29) mmol/L Anion Gap 11 L (12-20) BUN 18 H (9-16) mg/dL Creatinine 0.78 (0.5-1.4) mg/dL Estim Creat Clear Calc 80.2 Estimated GFR > 60 Random Glucose 142 H (60-115) mg/dL Calcium 9.4 (8.4-10.2) mg/dL Total Bilirubin 0.6 (0.0-1.0) mg/dL Direct Bilirubin 0.2 (0.0-0.5) mg/dL AST 78 H (5-31) U/L ALT 53 H (0-31) U/L Alkaline Phosphatase 116 (39-117) U/L Total Protein 6.9 (6.5-8.0) g/dL Albumin 3.9 (3.5-5.0) g/dL Lipase 12 (8-78) U/L Urine Opiates Screen POSITIVE H (Not Detect) Urine Fentanyl Screen POSITIVE H (Not Detect) Ur Barbiturates Screen Not Detected (Not Detect) Ur Phencyclidine Scrn Not Detected (Not Detect) Ur Amphetamines Screen Not Detected (Not Detect) U Benzodiazepines Scrn POSITIVE H (Not Detect) Urine Cocaine Screen POSITIVE H (Not Detect) U Marijuana (THC) Screen Not Detected (Not Detect) <Dalila Parr MD - Last Filed: 05/23/21 13:43> Discharge Plan Discharge Clinical Impression: Polysubstance abuse, Altered mental status <Sukhdev Palacios MD - Last Filed: 05/22/21 22:05> Patient Disposition: Xfer Other <Sukhdev Palacios MD - Last Filed: 05/22/21 22:05> Transfer Details: [facility] <Sukhdev Palacios MD - Last Filed: 05/22/21 22:05> [facility] <Dalila Parr MD - Last Filed: 05/23/21 13:43> Prescriptions: No Action methadone [Methadose] 10 mg/mL concentrate 75 mg PO DAILY RF: 0 multivitamin [Daily-Angle] Tablet 1 tab PO DAILY RF: 0 clonidine HCl 0.1 mg Tablet 0.1 mg PO TID PRN (Reason: Opiate Withdrawal) Qty: 90 RF: 0 lamotrigine 25 mg Tablet 50 mg PO DAILY Qty: 30 RF: 0 omeprazole 20 mg Capsule,Delayed Release(Dr/Ec) 20 mg PO BID@0630,1630 Qty: 60 RF: 0 hydroxyzine HCl 25 mg Tablet 25 mg PO QID Qty: 120 RF: 0 cyclobenzaprine 5 mg Tablet 5 mg PO TID PRN (Reason: back pain) Qty: 90 RF: 0 cyanocobalamin (vitamin B-12) [Vitamin B-12] 1,000 mcg tablet 1,000 mcg PO DAILY Qty: 30 RF: 0 hydroxyzine pamoate 50 mg capsule 1 cap PO BID PRN (Reason: anxiety) Qty: 60 RF: 0 gabapentin 800 mg tablet 800 mg PO TID 7 Days Qty: 90 RF: 0 buspirone 30 mg tablet 30 mg PO BID 7 Days Qty: 60 RF: 0 aspirin 81 mg tablet,chewable 81 mg PO DAILY Qty: 30 RF: 0 topiramate 200 mg tablet 200 mg PO DAILY 7 Days Qty: 30 RF: 0 diclofenac sodium 50 mg tablet,delayed release (DR/EC) 50 mg PO TID PRN (Reason: Pain) Qty: 90 RF: 0 zolpidem 5 mg tablet 5 mg PO BEDTIME PRN (Reason: Insomnia) Qty: 30 RF: 0 propranolol 20 mg tablet 20 mg PO Q6H PRN (Reason: Anxiety) Qty: 120 RF: 0 loratadine [Claritin] 10 mg tablet 10 mg PO DAILY Qty: 30 RF: 0 diazepam 5 mg tablet 1 tab PO TID Qty: 90 RF: 0 <Sukhdev Palacios MD - Last Filed: 05/22/21 22:05>
[2021-05-23 00:57] VITALS: RESP 16
--- NOTE | 2021-05-23 03:52 | PC.NURSE ---
pt medications and other personal items placed in belonging bag w/ labels and locked in locker 11
[2021-05-23 03:57] VITALS: RESP 18
[2021-05-23 06:05] VITALS: RESP 16
--- NOTE | 2021-05-23 08:56 | PC.NURSE ---
eliazar from care team requested labs on this pf, drug panel, and basic labs for possible detox placement
--- NOTE | 2021-05-23 10:24 | MHC.RECOVRN ---
T/w met with pt in ED22, along with Cafeteria Table Attendant, Preet. Pt sleeping, arousable to verbal stimuli. 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 Pt denies this was SA. Denies SI/HI/AH/VH. Pt states I need detox. I need to get off my benzos. 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 Pt reports this was only opiate use since [facility] d/c last week. Pt also reports IV cocaine use. Pt reports last methadone dose [address] [facility]. Pt had been placed at the [facility] in [place] upon [facility] d/c, pt requested t/w speak with Jodee at the program to see if she was able to return. Spoke with Jodee who reports pt was last at program on 05/21 at 4PM. Jodee will speak with director and update t/w if pt is able to return. Methadone dose verified. Pt last received 75 mg on 05/21. OT updated on pts status, per pt request. Cafeteria Table Attendant conducting bedsearch. Discussed with APOLONIA Nichols.
[2021-05-23 10:32] LABS: Basophils Percent Auto 0.5 % (0-2); Eosinophils Absolute Auto 0.1 X10*3/uL (0.0-0.4); Eosinophils Percent Auto 2.9 % (0-4); Hematocrit 37.8 % (37-47); Hemoglobin 12.9 g/dl (12.0-16.0); Imm Gran Abs Auto 0.01 X10*3/uL (0.00-0.03); Imm Gran Pct Auto 0.2 % (0.0-0.4); Lymphocytes Absolute Auto 1.3 X10*3/uL (1.2-4.9); MANUAL DIFF FLAG NO; Mean Corpuscular HGB Conc 34.1 g/dl (31.0-35.0); Mean Corpuscular Hemoglobin 29.6 pg (27.0-33.0); Mean Corpuscular Volume 86.7 fL (80-98); Mean Platelet Volume 9.6 fL (9.4-12.3); Monocytes Absolute Auto 0.2 X10*3/uL (0.1-1.2); Monocytes Percent Auto 5.6 % (2-11); Neutrophils Absolute Auto 2.4 X10*3/uL (2.0-8.3); Neutrophils Percent Auto 58.8 % (45-73); Platelet Count 169 X10*3/uL (160-400); Red Blood Count 4.36 X10*6/uL (4.20-5.50); Red Cell Distribution Width 12.9 % (11.0-16.0); White Blood Count 4.1 X10*3/uL (4.8-10.8)
[2021-05-23 10:59] LABS: Alanine Aminotransferase 53 U/L (0-31); Albumin Level 3.9 g/dL (3.5-5.0); Alkaline Phosphatase 116 U/L (39-117); Anion Gap 11 (12-20); Aspartate Amino Transferase 78 U/L (5-31); Bilirubin Direct 0.2 mg/dL (0.0-0.5); Bilirubin Total 0.6 mg/dL (0.0-1.0); Blood Urea Nitrogen 18 mg/dL (9-16); Calcium 9.4 mg/dL (8.4-10.2); Carbon Dioxide 19 mmol/L (22-29); Chloride 109 mmol/L (96-108); Creatinine Clr Calc Pharmacy 80.2; Estimated Glomerular Filt Rate > 60; Glucose Random 142 mg/dL (60-115); Lipase 12 U/L (8-78); Sodium 135 mmol/L (135-145); Total Protein 6.9 g/dL (6.5-8.0)
[2021-05-23] MEDS: methADONE HCl 20 MG/2 ML ORAL.CONC 75 MG PO (11:01)
[2021-05-23 11:03] VITALS: BP 102/60; PULSE 63; PULSE 65; RESP 16; TEMP 36.7; O2SAT 98
--- NOTE | 2021-05-23 12:02 | MHC.RECOVRN ---
Spoke with Jodee at the [facility] program, reports patient is able to return to program if pt completes ATS. Awaiting ATS acceptance at this time.
[2021-05-23 12:24] LABS: Amphetamine Screen Urine Not Detected (Not Detect); Barbiturates, Urine Not Detected (Not Detect); Benzodiazepines Screen Urine POSITIVE (Not Detect); Cannabinoid Screen Urine Not Detected (Not Detect); Cocaine Screen Urine POSITIVE (Not Detect); Fentanyl, urine POSITIVE (Not Detect); Opiate Screen Urine POSITIVE (Not Detect); Phencyclidine Screen Urine Not Detected (Not Detect)
--- NOTE | 2021-05-23 13:27 | PC.NURSE ---
CALL RECEIVED FROM [facility], PT WILL RECEIVE ALL REQUIRED TREATMENT THERE, SHE HAS BEEN ACCCEPTED TO THER FACILITY
--- NOTE | 2021-05-23 15:17 | MHC.RECOVRN ---
Pt accepted to [facility]. Pt provided transportation via [employer]. Jodee at the [facility] ([phone]) updated per pt request. CARE Team as well as Liset Brambila APRN, aware.
== END 2021-05-23 14:30 | disposition other institution (70) ==
PROVIDERS: Emergency Provider Emergency Medicine Emergency Medical Services
DX: R40.0 Somnolence (principal); F11.20 Opioid dependence, uncomplicated; F19.10 Other psychoactive substance abuse, uncomplicated; F14.10 Cocaine abuse, uncomplicated; F17.210 Nicotine dependence, cigarettes, uncomplicated; Z79.899 Other long term (current) drug therapy; Z79.82 Long term (current) use of aspirin; F31.9 Bipolar disorder, unspecified
CPT/HCPCS: 36415; 80048; 80076; 80307; 83690; 85025; 99285

== ENCOUNTER 2021-06-07 02:50 | Emergency (ER) | payer OTHER, SELFPAY ==
[2021-06-07 02:54] VITALS: BP 135/78; PULSE 77; RESP 17; TEMP 36.4; O2SAT 97; BMI 27.4
[2021-06-07 03:15] VITALS: BP 135/78; PULSE 77; RESP 17; TEMP 36.4; O2SAT 97
--- NOTE | 2021-06-07 03:24 | ED.PSYCH ---
HPI - Psych General Chief Complaint: Psychiatric Symptoms Stated Complaint: SI/HI, HALLUCINATIONS AUDITORY AND VISUAL Time Seen by Provider: 06/07/21 03:24 Source: patient Mode of arrival: EMS Limitations: no limitations History of Present Illness HPI Narrative: Patient With history of poly substance abuse homeless bit him multiple times complaining of suicidal feeling tearful depressed scratching all over the extremities asking for some help does not want to live anymore Related Data Home Medications Medication Instructions Recorded Confirmed aspirin 81 mg chewable tablet 1 tab PO DAILY 06/07/21 06/07/21 buspirone 30 mg tablet 1 tab PO BID 06/07/21 06/07/21 clonidine HCl 0.1 mg tablet 1 tab PO TID PRN 06/07/21 06/07/21 cyanocobalamin (vitamin B-12) 1 tab PO DAILY 06/07/21 06/07/21 1,000 mcg tablet cyclobenzaprine 5 mg tablet 1 tab PO TID PRN 06/07/21 06/07/21 diazepam 5 mg tablet 1 tab PO TID 06/07/21 06/07/21 diclofenac sodium 50 mg 1 tab PO TID PRN 06/07/21 06/07/21 tablet,delayed release gabapentin 800 mg tablet 1 tab PO TID 06/07/21 06/07/21 hydroxyzine HCl 25 mg tablet 1 tab PO QID 06/07/21 06/07/21 hydroxyzine pamoate 50 mg capsule 1 cap PO BID PRN 06/07/21 06/07/21 lamotrigine 25 mg tablet 2 tab PO DAILY 06/07/21 06/07/21 loratadine 10 mg tablet 1 tab PO DAILY 06/07/21 06/07/21 propranolol 20 mg tablet 1 tab PO Q6H PRN 06/07/21 06/07/21 zolpidem 5 mg tablet 1 tab PO BEDTIME PRN 06/07/21 06/07/21 Allergies Allergy/AdvReac Type Severity Reaction Status Date / Time azithromycin [AZITHROMYCIN] Allergy Unknown UNK Verified 05/22/21 18:18 erythromycin base Allergy Unknown RASH Verified 05/22/21 18:18 [ERYTHROMYCIN BASE] olanzapine [From ZYPREXA] Allergy Unknown PEDAL EDEMA Verified 05/22/21 18:18 quetiapine [From SEROQUEL] Allergy Unknown THROAT Verified 05/22/21 18:18 SWELLING risperidone [From RISPERDAL] Allergy Unknown TWITCHING Verified 05/22/21 18:18 shellfish derived Allergy Unknown VOMITING Verified 05/22/21 18:18 [SHELLFISH DERIVED] sulfacetamide Allergy Unknown Unknown Verified 05/22/21 18:18 [From Sulfacet-R] sulfamethoxazole Allergy Unknown ITCHING Verified 05/22/21 18:18 [From BACTRIM] sulfur [From Sulfacet-R] Allergy Unknown Unknown Verified 05/22/21 18:18 trimethoprim [From BACTRIM] Allergy Unknown ITCHING Verified 05/22/21 18:18 seafood AdvReac Unknown Vomiting Verified 05/22/21 18:18 Review of Systems Review of Systems: Yes all other systems are reviewed and are negative PMFSH Past Medical History Medical History Opioid dependence Substance abuse Substance abuse Social History Social History Household Members: Family Housing: House Housing Other:: patient states she is homeless Do you presently have visiting nurse or other home services: No Unable to assess alcohol history related to: Unknown Alcohol intake: current Alcohol intake frequency: does not drink Patient Tobacco Use Status: Current everyday Tobacco user Tobacco use type: Cigarette Cigarette Packs Per Day: 0 Cigarettes Per Day: 3 Years Smoked: 10 Second Hand Smoke Exposure: No Substance Use Type: Crack/Cocaine, Heroin and IV Drugs Advance Directives: Yes Advance Directives on File: Yes Advance Directives Date on File: 04/03/21 Patient : No service: No Current occupational status: disabled Physical Exam Vital Signs: Vital Signs: Last Vital Signs Temp 97.6 F 06/07/21 03:15 Pulse 77 06/07/21 03:15 Resp 17 06/07/21 03:15 BP 135/78 06/07/21 03:15 Pulse Ox 97 06/07/21 03:15 Body Mass Index 27.4 Appearance: Alert. Oriented X3. No acute distress. Eyes: PERRLA, No Nystagmus ENT: Pharynx normal. Oral Mucosa moist Neck: Normal inspection. Neck supple. CVS: Normal heart rate and rhythm. Pulses normal. Respiratory: No respiratory distress. Equal air entry bilateral, no wheezing/rales/rhonchi Abdomen: Soft and nontender. Bowel sounds are present, no mass palpable, no CVA tenderness Skin: Skin warm and dry. Normal skin color. Normal skin turgor. Extremities: No lower extremity edema. No calf tenderness psych: Anxious and depressed suicidal no hallucination or delusions Neuro: Oriented X 3. No motor deficit. No sensory deficit.No cerebellar signs , cranial nerves II-XII intact MDM - Psych MDM Narrative Medical decision making narrative: Patient depressed with suicidal ideation with history of substance abuse will get crisis evaluation for depression suicidal ideation and polysubstance abuse urine showed positive for opiates fentanyl PCP benzo and cocaine Lab Data Attestation: I reviewed the patient's lab results. Labs: Lab Results 06/07/21 06/07/21 06/07/21 Range/Units 03:33 03:33 03:33 Urine Color YELLOW Urine Appearance CLEAR Urine pH 6.0 (5.0-8.0) Ur Specific [place] 1.020 (1.005-1.025) Urine Protein NEG (NEG-TRACE) MG/DL Urine Glucose (UA) NEG (NEG) MG/DL Urine Ketones 5 (NEG) MG/DL Urine Blood NEG (NEG) Urine Nitrite NEG (NEG) Ur Leukocyte Esterase TRACE H (NEG) Urine RBC 1-4 (0) /HPF Urine WBC 5-9 H (0-4) /HPF Ur Squamous Epith Cells 1+ /LPF Urine Bacteria 2+ /LPF Urine Mucus 1+ /LPF Urine Test NEGATIVE (NEGATIVE) Urine Opiates Screen POSITIVE H (Not Detect) Urine Fentanyl Screen POSITIVE H (Not Detect) Ur Barbiturates Screen Not Detected (Not Detect) Ur Phencyclidine Scrn POSITIVE H (Not Detect) Ur Amphetamines Screen Not Detected (Not Detect) U Benzodiazepines Scrn POSITIVE H (Not Detect) Urine Cocaine Screen POSITIVE H (Not Detect) U Marijuana (THC) Screen Not Detected (Not Detect) COVID-19 (ZACK) (Negative) COVID-19 Clin Com 06/07/21 Range/Units 03:36 Urine Color Urine Appearance Urine pH (5.0-8.0) Ur Specific [place] (1.005-1.025) Urine Protein (NEG-TRACE) MG/DL Urine Glucose (UA) (NEG) MG/DL Urine Ketones (NEG) MG/DL Urine Blood (NEG) Urine Nitrite (NEG) Ur Leukocyte Esterase (NEG) Urine RBC (0) /HPF Urine WBC (0-4) /HPF Ur Squamous Epith Cells /LPF Urine Bacteria /LPF Urine Mucus /LPF Urine Test (NEGATIVE) Urine Opiates Screen (Not Detect) Urine Fentanyl Screen (Not Detect) Ur Barbiturates Screen (Not Detect) Ur Phencyclidine Scrn (Not Detect) Ur Amphetamines Screen (Not Detect) U Benzodiazepines Scrn (Not Detect) Urine Cocaine Screen (Not Detect) U Marijuana (THC) Screen (Not Detect) COVID-19 (ZACK) Negative (Negative) COVID-19 Clin Com See Note Discharge Plan Discharge Clinical Impression: Substance abuse, Feeling suicidal Depression Qualifiers: Depression Type: major depressive disorder Major depression recurrence: recurrent Active/Remission status: currently active Major depression episode severity: severe Psychotic features: without psychotic features Qualified Code(s): F33.2 - Major depressive disorder, recurrent severe without psychotic features Prescriptions: No Action clonidine HCl 0.1 mg tablet 1 tab PO TID PRN (Reason: Anxiety) RF: 0 cyanocobalamin (vitamin B-12) 1,000 mcg tablet 1 tab PO DAILY RF: 0 hydroxyzine pamoate 50 mg capsule 1 cap PO BID PRN (Reason: anxiety) RF: 0 lamotrigine 25 mg tablet 2 tab PO DAILY RF: 0 gabapentin 800 mg tablet 1 tab PO TID RF: 0 buspirone 30 mg tablet 1 tab PO BID RF: 0 aspirin 81 mg tablet,chewable 1 tab PO DAILY RF: 0 hydroxyzine HCl 25 mg tablet 1 tab PO QID RF: 0 diclofenac sodium 50 mg tablet,delayed release (DR/EC) 1 tab PO TID PRN (Reason: pain) RF: 0 zolpidem 5 mg tablet 1 tab PO BEDTIME PRN (Reason: insomnia) RF: 0 propranolol 20 mg tablet 1 tab PO Q6H PRN (Reason: anxiety) RF: 0 loratadine 10 mg tablet 1 tab PO DAILY RF: 0 diazepam 5 mg tablet 1 tab PO TID RF: 0 cyclobenzaprine 5 mg tablet 1 tab PO TID PRN (Reason: low back pain) RF: 0
[2021-06-07 03:47] LABS: Appearance Urine CLEAR; Color Urine YELLOW; Glucose Urine UA NEG (NEG); Leukocyte Esterase Urine TRACE (NEG); Nitrite Urine NEG (NEG); UACC Culture Trigger YES; Urine Blood NEG (NEG); Urine Ketones 5 MG/DL (NEG); Urine Protein NEG (NEG-TRACE)
[2021-06-07 03:52] LABS: UPreg QC Valid YES; Urine Pregnancy NEGATIVE (NEGATIVE)
[2021-06-07 03:55] LABS: Bacteria Urine 2+ /LPF; Mucus Urine 1+ /LPF; Squamous Epithelial Cell Urine 1+ /LPF; UACC CULT YES
--- NOTE | 2021-06-07 03:58 | PC.NURSE ---
Patient verbally abusive to staff member, reported that she came here because she has no place to go sleep tonight, currently sitting in bed seems sleeping, respiration =/+/non-labored bilaterally, will continue to monitor.
[2021-06-07 04:09] LABS: Amphetamine Screen Urine Not Detected (Not Detect); Barbiturates, Urine Not Detected (Not Detect); Benzodiazepines Screen Urine POSITIVE (Not Detect); Cannabinoid Screen Urine Not Detected (Not Detect); Cocaine Screen Urine POSITIVE (Not Detect); Fentanyl, urine POSITIVE (Not Detect); Opiate Screen Urine POSITIVE (Not Detect); Phencyclidine Screen Urine POSITIVE (Not Detect)
[2021-06-07 04:19] LABS: COVID-19 Test Negative (Negative); IDNOW Serial# 9DD0AD1C
--- NOTE | 2021-06-07 06:01 | PC.NURSE ---
Patient is currently in her appears sleeping, no distress observed/reported, patient is under poly-substance influence, patient was verbally abusive and accusatory to staff member and provider, no crises consult was done, plan for now is d/c in the morning like always, will continue to monitor.
--- NOTE | 2021-06-07 07:10 | PC.NURSE ---
patient appears to remain asleep at present with even unlabored breaths, patient appears in no distress.
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
--- NOTE | 2021-06-07 11:30 | MHC.RECOVSUP ---
? Reason for consult:Continuity of care o Current location: [facility] o Identified substance use concern:Heroin/cocaine - Withdrawal - Seeking ATS (detox) - Support ? Intervention: o ATS bed search started/completed/in process o MAT started or to be started o Community resources provided o Harm reduction discussion ? Plan: o o Bed search in progress to o Patient awaiting crisis evaluation o Patient to follow up with [facility] after discharge ? Additional information: Pt.was cleared by the care team, pt. seeking detox. pt. referred to [facility].
--- NOTE | 2021-06-07 12:56 | PC.NURSE ---
patient has been sleeping this morning uninterruptedly. attempting to get signature fro release to verify last dose methadone from [facility] from when she may have left there 05/31.
--- NOTE | 2021-06-07 17:01 | PC.NURSE ---
patients metahdone ordered but not 'verified patient still remains asleep at present.
== END 2021-06-07 20:30 | disposition other institution (70) ==
PROVIDERS: Emergency Provider Internal Medicine
DX: F33.1 Major depressive disorder, recurrent, moderate (principal); R45.851 Suicidal ideations; R44.0 Auditory hallucinations; R44.1 Visual hallucinations; F17.210 Nicotine dependence, cigarettes, uncomplicated; Z79.899 Other long term (current) drug therapy; Z71.6 Tobacco abuse counseling
CPT/HCPCS: 36415; 80307; 81001; 81025; 87086; 87635; 99284; 99285

== ENCOUNTER 2022-03-28 15:16 | Inpatient (IN) | payer OTHER, SELFPAY ==
--- NOTE | ~2022-03-28 | XR_ITS ---
EXAMINATION: XR LUMBOSACRAL SPINE WITH OBLIQUES CLINICAL INFORMATION: Back pain COMPARISON: Lumbar spine CT March 2021 TECHNIQUE: AP, both oblique, and lateral views of the lumbar spine. Lateral view of the lumbosacral junction. FINDINGS: Bone alignment is normal. No fracture or dislocation is seen. Disc spaces are normal. Facet joints are normal. There is a large amount of stool in the colon suggestive of constipation. XR/XR lumbar spine 4V min IMPRESSION: Normal lumbar spine. Constipation.
[2022-03-28 15:47] VITALS: BP 109/56; PULSE 108; RESP 16; TEMP 36.9; O2SAT 96; BMI 32.3
--- NOTE | 2022-03-28 15:54 | ED_ITS ---
HPI - Psych General Chief Complaint: Psychiatric Symptoms Stated Complaint: crisis and back/body pain methadone withdrawal Time Seen by Provider: 03/28/22 15:54 Source: patient Mode of arrival: ambulatory Limitations: no limitations History of Present Illness HPI Narrative: Patient presents emergency department for evaluation of increasing depression. Patient reports that she has been in [facility] for the past year where she has remained sober from recreational drug usage. She does report however that she has been depressed for the entire year. She states that recently she has been feeling increasingly more depressed, she took an extra dose of her Valium a few days ago, and therefore the long-term staff for ?giving her a hard time? she reports that they wanted her to go to detox for this. It is unclear exactly why she left the house, but she reports bleeding 2 days ago. At that point she relapsed on crack, reporting that she only used once 2 days ago. She is here today because she is feeling depressed, worthless, denies suicidal or homicidal ideations. She states she has not taken her medications for the past 2 days as they are at the long-term. Additionally she reports dysuria, and states she is concerned for urinary tract infection. Denies fevers, chills, nausea, vomiting, abdominal pain, flank pain, hematuria, abnormal vaginal discharge, possibility of . complaint: feels depressed Onset (ago): month(s) Duration: constant History of same: Yes Relieving factors: none Exacerbating factors: none Context: recent drug abuse and not taking psychiatric medications Related Data Home Medications Medication Instructions Recorded Confirmed aspirin 81 mg chewable tablet 1 tab PO DAILY 06/07/21 03/28/22 diazepam 5 mg tablet 5 mg PO BID 06/07/21 03/28/22 gabapentin 800 mg tablet 800 mg PO TID 06/07/21 03/28/22 hydroxyzine pamoate 50 mg capsule 50 mg PO QID PRN anxiety 06/07/21 03/28/22 loratadine 10 mg tablet 1 tab PO DAILY 06/07/21 03/28/22 propranolol 20 mg tablet 20 mg PO Q6H PRN anxiety 06/07/21 03/28/22 buspirone 10 mg tablet 20 mg PO TID 03/28/22 03/28/22 cyclobenzaprine 10 mg tablet 10 mg PO BID PRN Muscle Spasm 03/28/22 03/28/22 diclofenac potassium 50 mg tablet 1 tab PO TID 03/28/22 03/28/22 eqyxemiqfhla-uhfacyao-ujva 1 tab PO DAILY 03/28/22 03/28/22 fumarate 7.5 mg-folic acid 400 mcg tablet pregabalin 75 mg capsule 75 mg PO DAILY 03/28/22 03/28/22 topiramate 100 mg tablet 100 mg PO DAILY 03/28/22 03/28/22 topiramate 200 mg tablet 200 mg PO BEDTIME 03/28/22 03/28/22 Allergies Allergy/AdvReac Type Severity Reaction Status Date / Time azithromycin [AZITHROMYCIN] Allergy Unknown UNK Verified 05/22/21 18:18 erythromycin base Allergy Unknown RASH Verified 05/22/21 18:18 [ERYTHROMYCIN BASE] olanzapine [From ZYPREXA] Allergy Unknown PEDAL EDEMA Verified 05/22/21 18:18 quetiapine [From SEROQUEL] Allergy Unknown THROAT Verified 05/22/21 18:18 SWELLING risperidone [From RISPERDAL] Allergy Unknown TWITCHING Verified 05/22/21 18:18 shellfish derived Allergy Unknown VOMITING Verified 05/22/21 18:18 [SHELLFISH DERIVED] sulfacetamide Allergy Unknown Unknown Verified 05/22/21 18:18 [From Sulfacet-R] sulfamethoxazole Allergy Unknown ITCHING Verified 05/22/21 18:18 [From BACTRIM] sulfur [From Sulfacet-R] Allergy Unknown Unknown Verified 05/22/21 18:18 trimethoprim [From BACTRIM] Allergy Unknown ITCHING Verified 05/22/21 18:18 seafood AdvReac Unknown Vomiting Verified 05/22/21 18:18 Review of Systems Review of Systems: Constitutional : No Fever, No Chills ENT/Mouth : No Ear Pain, No Nasal Congestion, No sore throat Eyes: No Eye Pain, No Swelling, No Redness Cardiovascular : No Chest Pain, No SOB Respiratory : No Cough, No Sputum, No Dyspnea Gastrointestinal : No Nausea, No Vomiting, No Diarrhea, No Hematochezia, No Melena Genitourinary : Positive Dysuria, positive Urinary Frequency, No Hematuria Musculoskeletal : No Myalgias Skin : No Skin Lesions, No rash Neuro : No Weakness, No Numbness, No Paresthesias, No Dizziness, No Headache Psych : no Anxiety, positive Depression, no SI/HI Heme/Lymph: No Lymphadenopathy Endocrine : No Polyuria, No Polydipsia Yes all other systems are reviewed and are negative [facility] Past Medical History Attestation statement: The following information was validated with the patient. Source: old records reviewed Medical History Opioid dependence Substance abuse Substance abuse Social History Social History Household Members: Family Housing: House Housing Other:: patient states she is homeless Do you presently have visiting nurse or other home services: No Unable to assess alcohol history related to: Unknown Alcohol intake: current Alcohol intake frequency: does not drink Patient Tobacco Use Status: Current everyday Tobacco user Tobacco use type: Cigarette Cigarette Packs Per Day: 0 Cigarettes Per Day: 3 Years Smoked: 10 Second Hand Smoke Exposure: No Substance Use Type: Crack/Cocaine, Heroin and IV Drugs Advance Directives: Yes Advance Directives on File: Yes Advance Directives Date on File: 12/28/20 service: No Current occupational status: disabled Physical Exam Vital Signs: Vital Signs: Last Vital Signs Temp 98.5 F 03/28/22 15:47 Pulse 108 H 03/28/22 15:47 Resp 16 03/28/22 15:47 BP 109/56 L 03/28/22 15:47 Pulse Ox 96 03/28/22 15:47 O2 Del Method 03/28/22 15:47 BMI result Body Mass Index 32.3 Appearance: Alert.?Oriented to person, place and time. No acute distress.?Normal affect. Eyes: Pupils equal, round and reactive to light.? ENT: Pharynx normal.?? Neck: Normal inspection.? Neck supple.?? CVS: Heart sounds normal. Normal heart rate and rhythm.? Pulses normal.?? Respiratory: No respiratory distress.? Lung sounds clear to auscultation bilaterally?? Abdomen: Soft and non-tender. Normoactive bowel sounds. No pulsatile mass.??No CVA tenderness Skin: Skin warm and dry.? Normal skin color.? Normal skin turgor.?? Extremities: No lower extremity edema.? Neuro: Moves all extremities spontaneously. Sensation intact bilaterally. CN II- XII intact. No focal neuro deficits. Ambulates with normal steady gait. Course Course Course Narrative: Patient is a 42-year-old female with a past medical history of depression, substance use disorder presenting to emergency department for evaluation of depression, and concerns of urinary tract infection. She is overall well- appearing, hemodynamically stable. Will obtain CBC, BMP, urinalysis, testing, drug of abuse screen, ethanol level, COVID-19 testing, and will plan for referral to crisis for further evaluation. Reevaluation(s) Reevaluation #1: Urinalysis reveals 2+ blood, 1+ leuk esterase, 5-9 WBC, in addition to dysuria, consistent with urinary tract infection, will treat with cefuroxime 250 b.i.d. for 7 days. Drug abuse screen is positive for opiates, fentanyl, PCP, benzos, cocaine. Patient placed in physician observation at this time, she will require further time to be evaluated by [facility]/ [facility] for disposition/placement. Patient is overall well appearing. In no apparent distress. Time: 19:47 Reevaluation #2: Patient evaluated by [facility], she has a section 12 inpatient bed search. [facility] - Psych Medical Records Attestation: I reviewed the patient's medical records. Lab Data Attestation: I reviewed the patient's lab results. Result diagrams: 03/28/22 17:14 03/28/22 17:14 Labs: Lab Results 03/28/22 03/28/22 03/28/22 Range/Units 15:45 15:48 15:48 WBC (4.8-10.8) X10*3/uL RBC (4.20-5.50) X10*6/uL Hgb (12.0-16.0) g/dl Hct (37.0-47.0) % MCV (80.0-98.0) fL MCH (27.0-33.0) pg MCHC (31.0-35.0) g/dl RDW (11.0-16.0) % Plt Count (160-400) X10*3/uL MPV (9.4-12.3) fL Immature Gran % (Auto) (0.0-0.4) % Neut % (Auto) (45-73) % Lymph % (Auto) (20-40) % [place] % (Auto) (2-11) % Eos % (Auto) (0-4) % Baso % (Auto) (0-2) % Lymph # (Auto) (1.2-4.9) X10*3/uL [place] # (Auto) (0.1-1.2) X10*3/uL Eos # (Auto) (0.0-0.4) X10*3/uL Baso # (Auto) (0.0-0.2) X10*3/uL Abs Immat Gran (auto) (0.00-0.03) X10*3/uL Absolute Neuts (auto) (2.0-8.3) x10*3/uL Absolute Nucleated RBC (0.0-0.012) X10*3/uL Nucleated RBC % (auto) (0.0-0.2) /100WBC Sodium (135-145) mmol/L Potassium (3.3-5.1) mmol/L Chloride (96-108) mmol/L Carbon Dioxide (22-29) mmol/L Anion Gap (12-20) BUN (9-16) mg/dL Creatinine (0.5-1.4) mg/dL Estim Creat Clear Calc Estimated GFR Random Glucose (60-115) mg/dL Calcium (8.4-10.2) mg/dL Beta HCG, Quant mIU/mL Urine Color DK YELLOW Urine Appearance HAZY Urine pH 6.0 (5.0-8.0) Ur Specific [place] 1.025 (1.005-1.025) Urine Protein TRACE (NEG-TRACE) MG/DL Urine Glucose (UA) NEG (NEG) MG/DL Urine Ketones 15 (NEG) MG/DL Urine Blood 2+ H (NEG) Urine Nitrite NEG (NEG) Ur Leukocyte Esterase 1+ H (NEG) Urine RBC 1-4 (0) /HPF Urine WBC 5-9 H (0-4) /HPF Ur Squamous Epith Cells 3+ /LPF Urine Bacteria 2+ /LPF Urine Mucus 4+ /LPF Urine Opiates Screen POSITIVE H (Not Detect) Urine Fentanyl Screen POSITIVE H (Not Detect) Ur Barbiturates Screen Not Detected (Not Detect) Ur Phencyclidine Scrn POSITIVE H (Not Detect) Ur Amphetamines Screen Not Detected (Not Detect) U Benzodiazepines Scrn POSITIVE H (Not Detect) Urine Cocaine Screen POSITIVE H (Not Detect) U Marijuana (THC) Screen Not Detected (Not Detect) Ethyl Alcohol mg/dL COVID-19 (ZACK) Negative (Negative) COVID-19 Clin Com See Note 03/28/22 03/28/22 03/28/22 Range/Units 17:14 17:14 17:14 WBC 4.9 (4.8-10.8) X10*3/uL RBC 3.79 L (4.20-5.50) X10*6/uL Hgb 11.2 L (12.0-16.0) g/dl Hct 32.6 L (37.0-47.0) % MCV 86.0 (80.0-98.0) fL MCH 29.6 (27.0-33.0) pg MCHC 34.4 (31.0-35.0) g/dl RDW 12.1 (11.0-16.0) % Plt Count 116 L (160-400) X10*3/uL MPV 9.7 (9.4-12.3) fL Immature Gran % (Auto) 0.2 (0.0-0.4) % Neut % (Auto) 56.2 (45-73) % Lymph % (Auto) 33.9 (20-40) % [place] % (Auto) 6.4 (2-11) % Eos % (Auto) 2.7 (0-4) % Baso % (Auto) 0.6 (0-2) % Lymph # (Auto) 1.7 (1.2-4.9) X10*3/uL [place] # (Auto) 0.3 (0.1-1.2) X10*3/uL Eos # (Auto) 0.1 (0.0-0.4) X10*3/uL Baso # (Auto) 0.0 (0.0-0.2) X10*3/uL Abs Immat Gran (auto) 0.01 (0.00-0.03) X10*3/uL Absolute Neuts (auto) 2.7 (2.0-8.3) x10*3/uL Absolute Nucleated RBC 0.000 (0.0-0.012) X10*3/uL Nucleated RBC % (auto) 0.0 (0.0-0.2) /100WBC Sodium 138 (135-145) mmol/L Potassium 3.4 (3.3-5.1) mmol/L Chloride 104 (96-108) mmol/L Carbon Dioxide 25 (22-29) mmol/L Anion Gap 12 (12-20) BUN 13 (9-16) mg/dL Creatinine 0.80 (0.5-1.4) mg/dL Estim Creat Clear Calc 101.7 Estimated GFR > 60 Random Glucose 89 (60-115) mg/dL Calcium 8.7 D (8.4-10.2) mg/dL Beta HCG, Quant < 2 mIU/mL Urine Color Urine Appearance Urine pH (5.0-8.0) Ur Specific [place] (1.005-1.025) Urine Protein (NEG-TRACE) MG/DL Urine Glucose (UA) (NEG) MG/DL Urine Ketones (NEG) MG/DL Urine Blood (NEG) Urine Nitrite (NEG) Ur Leukocyte Esterase (NEG) Urine RBC (0) /HPF Urine WBC (0-4) /HPF Ur Squamous Epith Cells /LPF Urine Bacteria /LPF Urine Mucus /LPF Urine Opiates Screen (Not Detect) Urine Fentanyl Screen (Not Detect) Ur Barbiturates Screen (Not Detect) Ur Phencyclidine Scrn (Not Detect) Ur Amphetamines Screen (Not Detect) U Benzodiazepines Scrn (Not Detect) Urine Cocaine Screen (Not Detect) U Marijuana (THC) Screen (Not Detect) Ethyl Alcohol < 10 mg/dL COVID-19 (ZACK) (Negative) COVID-19 Clin Com Discharge Plan Discharge Clinical Impression: Polysubstance use disorder, Depression Patient Disposition: Still a Patient Prescriptions: No Action hydroxyzine pamoate 50 mg capsule 50 mg PO QID PRN (Reason: anxiety) gabapentin 800 mg tablet 800 mg PO TID aspirin 81 mg tablet,chewable 1 tab PO DAILY propranolol 20 mg tablet 20 mg PO Q6H PRN (Reason: anxiety) loratadine 10 mg tablet 1 tab PO DAILY diazepam 5 mg tablet 5 mg PO BID buspirone 10 mg tablet 20 mg PO TID topiramate 200 mg tablet 200 mg PO BEDTIME pregabalin 75 mg capsule 75 mg PO DAILY cyclobenzaprine 10 mg tablet 10 mg PO BID PRN (Reason: Muscle Spasm) diclofenac potassium 50 mg tablet 1 tab PO TID topiramate 100 mg tablet 100 mg PO DAILY vnemqrdt-czw-euvv fum-folic ac 7.5 mg iron-400 mcg tablet 1 tab PO DAILY
[2022-03-28 16:12] LABS: Appearance Urine HAZY; Color Urine DK YELLOW; Glucose Urine UA NEG (NEG); Leukocyte Esterase Urine 1+ (NEG); Nitrite Urine NEG (NEG); Specific Gravity - Urine 1.025 (1.005-1.025); UACC Culture Trigger YES; Urine Blood 2+ (NEG); Urine Ketones 15 MG/DL (NEG); Urine Protein TRACE MG/DL (NEG-TRACE)
[2022-03-28 16:26] LABS: COVID-19 Test Negative (Negative); IDNOW Serial# 55D5AD1C
[2022-03-28 16:28] LABS: Amphetamine Screen Urine Not Detected (Not Detect); Barbiturates, Urine Not Detected (Not Detect); Benzodiazepines Screen Urine POSITIVE (Not Detect); Cannabinoid Screen Urine Not Detected (Not Detect); Cocaine Screen Urine POSITIVE (Not Detect); Fentanyl, urine POSITIVE (Not Detect); Opiate Screen Urine POSITIVE (Not Detect); Phencyclidine Screen Urine POSITIVE (Not Detect)
[2022-03-28 16:38] LABS: Squamous Epithelial Cell Urine 3+ /LPF
[2022-03-28] MEDS: Acetaminophen 325 MG TABLET 975 MG PO (16:38)
[2022-03-28 16:39] LABS: Bacteria Urine 2+ /LPF; Mucus Urine 4+ /LPF
[2022-03-28 17:23] LABS: MANUAL DIFF FLAG NO
[2022-03-28 17:24] LABS: Basophils Percent Auto 0.6 % (0-2); Eosinophils Absolute Auto 0.1 X10*3/uL (0.0-0.4); Eosinophils Percent Auto 2.7 % (0-4); Hematocrit 32.6 % (37.0-47.0); Hemoglobin 11.2 g/dl (12.0-16.0); Imm Gran Abs Auto 0.01 X10*3/uL (0.00-0.03); Imm Gran Pct Auto 0.2 % (0.0-0.4); Lymphocytes Absolute Auto 1.7 X10*3/uL (1.2-4.9); Lymphocytes Percent Auto 33.9 % (20-40); Mean Corpuscular HGB Conc 34.4 g/dl (31.0-35.0); Mean Corpuscular Hemoglobin 29.6 pg (27.0-33.0); Mean Platelet Volume 9.7 fL (9.4-12.3); Monocytes Absolute Auto 0.3 X10*3/uL (0.1-1.2); Monocytes Percent Auto 6.4 % (2-11); Neutrophils Absolute Auto 2.7 x10*3/uL (2.0-8.3); Neutrophils Percent Auto 56.2 % (45-73); Platelet Count 116 X10*3/uL (160-400); Red Blood Count 3.79 X10*6/uL (4.20-5.50); Red Cell Distribution Width 12.1 % (11.0-16.0); White Blood Count 4.9 X10*3/uL (4.8-10.8)
[2022-03-28 17:40] LABS: Ethanol < 10 mg/dL
[2022-03-28 17:41] LABS: Anion Gap 12 (12-20); Blood Urea Nitrogen 13 mg/dL (9-16); Calcium 8.7 mg/dL (8.4-10.2); Carbon Dioxide 25 mmol/L (22-29); Chloride 104 mmol/L (96-108); Creatinine Clr Calc Pharmacy 101.7; Estimated Glomerular Filt Rate > 60; Glucose Random 89 mg/dL (60-115); Potassium 3.4 mmol/L (3.3-5.1); Sodium 138 mmol/L (135-145)
[2022-03-28 17:49] LABS: HCG Quantitative < 2 mIU/mL
--- NOTE | 2022-03-28 18:06 | PHA.MEDREC ---
Pharmacy Consult ? Medication Reconciliation Pharmacy has completed the medication reconciliation. Patient reports no longer taking bupropion. Patient reprot taking diazepm 5 mg TID however the prescripition is for BID. Patient reports only taking Pregabalin 75 mg 1 tab once a day instead of BID. Kinjal Marin, PharmD
[2022-03-28] MEDS: Diclofenac Sodium Delayed Rel 50 MG TABLET.DR PO (21:59)
[2022-03-28] MEDS: busPIRone HCl 10 MG TABLET 20 MG PO (22:00)
[2022-03-28] MEDS: Topiramate 100 MG TABLET 200 MG PO (22:00)
[2022-03-28] MEDS: Gabapentin 400 MG CAPSULE 800 MG PO (22:00)
[2022-03-28] MEDS: diazePAM 5 MG TABLET PO (22:00)
[2022-03-29 05:03] VITALS: BP 104/54; PULSE 80; RESP 16; TEMP 36.8; O2SAT 99
--- NOTE | 2022-03-29 06:21 | PC.NURSE ---
Patient slept through the night, no distress observed/reported, medication compliant, behavior non concerning, patient engaged well with [facility], disposition is section 12 inpatient bed search, insurance authorized for today, awaiting M5 admission in the morning, patient + for UTI Macrobid 100 mg BID initiated 1st dose at 9 am today, VSS, will continue to monitor.
[2022-03-29] MEDS: Multivitamin TABLET 1 TAB PO (08:34)
[2022-03-29] MEDS: Gabapentin 400 MG CAPSULE 800 MG PO ×3 (08:34→20:15)
[2022-03-29] MEDS: diazePAM 5 MG TABLET PO ×2 (08:34→20:16)
[2022-03-29 08:47] VITALS: BP 93/59; PULSE 67; RESP 16; TEMP 36.6; O2SAT 97
[2022-03-29] MEDS: busPIRone HCl 10 MG TABLET 20 MG PO ×3 (09:00→20:15)
[2022-03-29] MEDS: Aspirin 81 MG TAB.CHEW PO (09:00)
[2022-03-29] MEDS: Topiramate 100 MG TABLET PO (09:00)
[2022-03-29] MEDS: Pregabalin 75 MG CAPSULE PO (09:00)
[2022-03-29] MEDS: Nitrofurantoin Monohyd/M-Cryst 100 MG CAPSULE PO ×2 (09:00→20:16)
[2022-03-29] MEDS: methADONE HCl 20 MG/2 ML ORAL.CONC 145 MG PO (09:01)
--- NOTE | 2022-03-29 09:12 | MHC.RECOVSUP ---
Recovery Support note: This publications writer assisted patient's RN in confirming methadone dose. Mildred at the [facility] in [place] reports that Carlota last received 145mg on 03/27/22 and that she is able to return to the clinic after discharge. Discussed case with patient's RN and ED provider. Verification form faxed to pharmacy.
--- NOTE | 2022-03-29 10:04 | ECG_ITS ---
Test Reason : MEDICAL CLEARANCE Blood Pressure : / mmHG Vent. Rate : 069 BPM Atrial Rate : 069 BPM P-R Int : 180 ms QRS Dur : 088 ms QT Int : 450 ms P-R-T Axes : 065 026 049 degrees QTc Int : 482 ms Normal sinus rhythm Nonspecific T wave abnormality Prolonged QT Abnormal ECG When compared with ECG of 10-MAY-2021 12:01, Nonspecific T wave abnormality now evident in Anterior leads Referred By: Fadia Orona Electronically Signed By:Amadeo Gutierrez
[2022-03-29] MEDS: Diclofenac Sodium Delayed Rel 50 MG TABLET.DR PO ×3 (10:12→20:16)
[2022-03-29 13:27] VITALS: BP 111/73; TEMP 36.3
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
[2022-03-29] MEDS: Nicotine 21 MG PATCH.TD24 TRANSDERMA (16:05)
[2022-03-29] MEDS: Nicotine Polacrilex 2 MG GUM 4 MG BUCCAL ×2 (16:05→23:12)
[2022-03-29 18:00] VITALS: BP 107/57; PULSE 76; TEMP 37; O2SAT 100
[2022-03-29] MEDS: Topiramate 100 MG TABLET 200 MG PO (20:16)
[2022-03-29] MEDS: Acetaminophen 325 MG TABLET 650 MG PO (23:09)
[2022-03-29] MEDS: Cyclobenzaprine HCl 10 MG TABLET PO (23:10)
[2022-03-29] MEDS: hydrOXYzine HCL 50 MG TABLET PO (23:11)
[2022-03-30 06:00] VITALS: BP 101/59; PULSE 88; RESP 16; TEMP 36.8; O2SAT 100
[2022-03-30] MEDS: Acetaminophen 325 MG TABLET 650 MG PO (06:56)
[2022-03-30] MEDS: Nicotine Polacrilex 2 MG GUM 4 MG BUCCAL ×4 (06:56→22:56)
[2022-03-30] MEDS: Loratadine 10 MG TABLET PO (08:06)
[2022-03-30] MEDS: Aspirin 81 MG TAB.CHEW PO (08:06)
[2022-03-30] MEDS: diazePAM 5 MG TABLET PO ×2 (08:06→20:41)
[2022-03-30] MEDS: Gabapentin 400 MG CAPSULE 800 MG PO ×3 (08:06→20:41)
[2022-03-30] MEDS: Nitrofurantoin Monohyd/M-Cryst 100 MG CAPSULE PO ×2 (08:06→20:42)
[2022-03-30] MEDS: Multivitamin TABLET 1 TAB PO (08:07)
[2022-03-30] MEDS: Diclofenac Sodium Delayed Rel 50 MG TABLET.DR PO ×3 (08:07→20:42)
[2022-03-30] MEDS: Topiramate 100 MG TABLET PO (08:07)
[2022-03-30] MEDS: Pregabalin 75 MG CAPSULE PO (08:07)
[2022-03-30] MEDS: busPIRone HCl 10 MG TABLET 20 MG PO ×3 (08:08→20:40)
[2022-03-30] MEDS: methADONE HCl 20 MG/2 ML ORAL.CONC 145 MG PO (08:08)
[2022-03-30] MEDS: Nicotine 21 MG PATCH.TD24 TRANSDERMA (08:33)
[2022-03-30] MEDS: hydrOXYzine HCL 50 MG TABLET PO (09:31)
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
[2022-03-30 18:00] VITALS: BP 125/66; PULSE 90; TEMP 36.2
[2022-03-30] MEDS: Topiramate 100 MG TABLET 200 MG PO (20:41)
[2022-03-30] MEDS: Lithium Carbonate ER 450 MG TABLET.ER PO (20:42)
[2022-03-31 02:15] LABS: CT PCR NOT DETECTED (Not Detect.); NG PCR NOT DETECTED (Not Detect.)
[2022-03-31 06:00] VITALS: BP 106/60; PULSE 78; RESP 18; TEMP 36.7; O2SAT 100
[2022-03-31] MEDS: Acetaminophen 325 MG TABLET 650 MG PO ×2 (06:19→14:29)
[2022-03-31] MEDS: Nicotine Polacrilex 2 MG GUM 4 MG BUCCAL ×3 (06:20→21:23)
[2022-03-31 08:00] LABS: HIV AB/AG Nonreactive (Nonreactive); HIV Num 1 0.11 S/CO (0.00-0.99)
[2022-03-31] MEDS: methADONE HCl 20 MG/2 ML ORAL.CONC 145 MG PO (08:37)
[2022-03-31] MEDS: Multivitamin TABLET 1 TAB PO (08:38)
[2022-03-31] MEDS: Pregabalin 75 MG CAPSULE PO ×2 (08:38→21:24)
[2022-03-31] MEDS: Nitrofurantoin Monohyd/M-Cryst 100 MG CAPSULE PO ×2 (08:38→21:24)
[2022-03-31] MEDS: Diclofenac Sodium Delayed Rel 50 MG TABLET.DR PO ×3 (08:38→21:24)
[2022-03-31] MEDS: Loratadine 10 MG TABLET PO (08:39)
[2022-03-31] MEDS: Aspirin 81 MG TAB.CHEW PO (08:39)
[2022-03-31] MEDS: Gabapentin 400 MG CAPSULE 800 MG PO ×3 (08:39→21:23)
[2022-03-31] MEDS: Topiramate 100 MG TABLET PO (08:39)
[2022-03-31] MEDS: diazePAM 5 MG TABLET PO ×2 (08:39→21:24)
[2022-03-31] MEDS: busPIRone HCl 10 MG TABLET 20 MG PO ×3 (08:39→21:23)
[2022-03-31] MEDS: Nicotine 21 MG PATCH.TD24 TRANSDERMA (08:51)
[2022-03-31 08:57] LABS: Syphilis Screen Nonreactive (Nonreactive)
[2022-03-31 11:17] LABS: BV Int Neg Control Negative (Negative); BV Int Pos Control Positive (Positive)
[2022-03-31] MEDS: Cyclobenzaprine HCl 10 MG TABLET PO ×2 (14:30→21:27)
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
[2022-03-31 17:42] VITALS: BP 116/63; PULSE 78; RESP 16; TEMP 36.3; O2SAT 97
[2022-03-31] MEDS: traZODone HCL 50 MG TABLET PO (21:23)
[2022-03-31] MEDS: hydrOXYzine HCL 50 MG TABLET PO (21:23)
[2022-03-31] MEDS: Lithium Carbonate ER 450 MG TABLET.ER PO (21:24)
[2022-03-31] MEDS: Topiramate 100 MG TABLET 200 MG PO (21:24)
[2022-04-01 06:00] VITALS: BP 133/66; PULSE 79; RESP 16; TEMP 36.4; O2SAT 95
[2022-04-01] MEDS: Cyclobenzaprine HCl 10 MG TABLET PO (06:24)
[2022-04-01] MEDS: Nicotine Polacrilex 2 MG GUM 4 MG BUCCAL ×4 (06:24→22:14)
[2022-04-01] MEDS: hydrOXYzine HCL 50 MG TABLET PO ×3 (06:24→18:07)
[2022-04-01] MEDS: Aspirin 81 MG TAB.CHEW PO (08:26)
[2022-04-01] MEDS: Pregabalin 75 MG CAPSULE PO ×2 (08:26→21:33)
[2022-04-01] MEDS: diazePAM 5 MG TABLET PO ×3 (08:26→21:32)
[2022-04-01] MEDS: Diclofenac Sodium Delayed Rel 50 MG TABLET.DR PO ×3 (08:27→21:32)
[2022-04-01] MEDS: busPIRone HCl 10 MG TABLET 20 MG PO ×3 (08:28→21:33)
[2022-04-01] MEDS: Gabapentin 400 MG CAPSULE 800 MG PO ×3 (08:28→21:31)
[2022-04-01] MEDS: Thiamine HCL 100 MG TABLET PO (08:29)
[2022-04-01] MEDS: Topiramate 100 MG TABLET PO (08:30)
[2022-04-01] MEDS: Multivitamin TABLET 1 TAB PO (08:30)
[2022-04-01] MEDS: Loratadine 10 MG TABLET PO (08:30)
[2022-04-01] MEDS: methADONE HCl 20 MG/2 ML ORAL.CONC 145 MG PO (08:31)
[2022-04-01] MEDS: Nitrofurantoin Monohyd/M-Cryst 100 MG CAPSULE PO ×2 (08:31→21:32)
[2022-04-01 09:10] LABS: Estimated Average Glucose 108 mg/dL; Hemoglobin A1c % 5.4 %
[2022-04-01 09:57] LABS: Alanine Aminotransferase 78 U/L (0-31); Albumin Level 4.1 g/dL (3.5-5.0); Alkaline Phosphatase 87 U/L (39-117); Anion Gap 13 (12-20); Aspartate Amino Transferase 69 U/L (5-31); Bilirubin Total 0.2 mg/dL (0.0-1.0); Blood Urea Nitrogen 16 mg/dL (9-16); Calcium 9.3 mg/dL (8.4-10.2); Carbon Dioxide 21 mmol/L (22-29); Chloride 110 mmol/L (96-108); Cholesterol 112 mg/dL; Creatinine Clr Calc Pharmacy 94.7; Estimated Glomerular Filt Rate > 60; Glucose Random 110 mg/dL (60-115); HDL Cholesterol 57 mg/dL; Iron 107 mcg/dL (30-160); LDL Cholesterol Calculated 45 mg/dl; Percent Iron Saturation 29 % (15-50); Potassium 4.8 mmol/L (3.3-5.1); Sodium 139 mmol/L (135-145); Total Iron Binding Capacity 373 mcg/dL (228-428); Triglycerides 54 mg/dL; Unsaturated Iron Binding 266 ug/dL
[2022-04-01 10:15] LABS: Thyroid Stimulating Hormone 3.62 uIU/mL (0.32-4.0); Vitamin D 25-OH Total 42.5 ng/mL (>30)
[2022-04-01 10:51] LABS: Folate > 20.0 ng/mL (> or = 4.0); Vitamin B12 555 pg/mL (200-900)
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
[2022-04-01] MEDS: Nicotine 21 MG PATCH.TD24 TRANSDERMA (13:17)
[2022-04-01] MEDS: Perphenazine 4 MG TABLET PO ×2 (14:32→21:33)
[2022-04-01 17:19] VITALS: BP 106/63; PULSE 75; RESP 18; TEMP 36.4; O2SAT 97
[2022-04-01] MEDS: Propranolol HCL 20 MG TABLET PO (18:07)
[2022-04-01] MEDS: Lithium Carbonate ER 450 MG TABLET.ER PO (21:32)
[2022-04-01] MEDS: Topiramate 100 MG TABLET 200 MG PO (21:33)
[2022-04-02] MEDS: hydrOXYzine HCL 50 MG TABLET PO ×3 (03:54→19:02)
[2022-04-02] MEDS: Nicotine Polacrilex 2 MG GUM 4 MG BUCCAL ×3 (03:56→19:02)
[2022-04-02] MEDS: methADONE HCl 20 MG/2 ML ORAL.CONC 145 MG PO (06:34)
[2022-04-02 08:00] VITALS: BP 101/63; PULSE 74; TEMP 36.2; O2SAT 98
[2022-04-02] MEDS: Thiamine HCL 100 MG TABLET PO (08:39)
[2022-04-02] MEDS: Perphenazine 4 MG TABLET PO ×3 (08:39→20:53)
[2022-04-02] MEDS: Nitrofurantoin Monohyd/M-Cryst 100 MG CAPSULE PO (08:39)
[2022-04-02] MEDS: Gabapentin 400 MG CAPSULE 800 MG PO ×3 (08:40→20:52)
[2022-04-02] MEDS: Multivitamin TABLET 1 TAB PO (08:40)
[2022-04-02] MEDS: Topiramate 100 MG TABLET PO (08:40)
[2022-04-02] MEDS: Diclofenac Sodium Delayed Rel 50 MG TABLET.DR PO ×3 (08:40→20:52)
[2022-04-02] MEDS: Lithium Carbonate ER 450 MG TABLET.ER PO ×2 (08:40→20:52)
[2022-04-02] MEDS: busPIRone HCl 10 MG TABLET 20 MG PO ×3 (08:40→20:52)
[2022-04-02] MEDS: Loratadine 10 MG TABLET PO (08:41)
[2022-04-02] MEDS: diazePAM 5 MG TABLET PO ×3 (08:41→20:52)
[2022-04-02] MEDS: Pregabalin 75 MG CAPSULE PO ×2 (08:41→20:52)
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
[2022-04-02 17:25] VITALS: BP 130/90; PULSE 69; RESP 18; TEMP 36; O2SAT 98
[2022-04-02] MEDS: Topiramate 100 MG TABLET 200 MG PO (20:52)
[2022-04-03] MEDS: methADONE HCl 20 MG/2 ML ORAL.CONC 145 MG PO (06:48)
[2022-04-03 07:02] VITALS: BP 111/57; PULSE 77; RESP 18; TEMP 36.4; O2SAT 98
[2022-04-03] MEDS: Gabapentin 400 MG CAPSULE 800 MG PO ×3 (08:17→21:22)
[2022-04-03] MEDS: Aspirin 81 MG TAB.CHEW PO (08:17)
[2022-04-03] MEDS: Multivitamin TABLET 1 TAB PO (08:17)
[2022-04-03] MEDS: busPIRone HCl 10 MG TABLET 20 MG PO ×3 (08:17→21:22)
[2022-04-03] MEDS: Thiamine HCL 100 MG TABLET PO (08:17)
[2022-04-03] MEDS: Pregabalin 75 MG CAPSULE PO ×2 (08:18→21:23)
[2022-04-03] MEDS: Diclofenac Sodium Delayed Rel 50 MG TABLET.DR PO ×3 (08:18→21:23)
[2022-04-03] MEDS: Perphenazine 4 MG TABLET PO ×3 (08:18→21:24)
[2022-04-03] MEDS: Loratadine 10 MG TABLET PO (08:18)
[2022-04-03] MEDS: Nicotine Polacrilex 2 MG GUM 4 MG BUCCAL ×3 (08:19→14:31)
[2022-04-03] MEDS: diazePAM 5 MG TABLET PO (08:19)
[2022-04-03] MEDS: Topiramate 100 MG TABLET PO (08:19)
[2022-04-03] MEDS: Nicotine 21 MG PATCH.TD24 TRANSDERMA (08:19)
[2022-04-03] MEDS: Lithium Carbonate ER 450 MG TABLET.ER PO ×2 (09:14→21:24)
[2022-04-03] MEDS: hydrOXYzine HCL 50 MG TABLET PO (11:21)
[2022-04-03] MEDS: Cyclobenzaprine HCl 10 MG TABLET PO (11:21)
[2022-04-03 12:17] VITALS: BP 112/74
[2022-04-03] MEDS: Propranolol HCL 20 MG TABLET PO (12:18)
[2022-04-03] MEDS: clonazePAM 1 MG TABLET PO ×2 (14:25→21:23)
[2022-04-03 18:00] VITALS: BP 119/65; PULSE 95; RESP 16; TEMP 36.6; O2SAT 97
[2022-04-03] MEDS: Magnesium Hydrox/Alum Hydrox 30 ML ORAL.SUSP PO (18:23)
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
[2022-04-03] MEDS: Topiramate 100 MG TABLET 200 MG PO (21:24)
[2022-04-04] MEDS: methADONE HCl 20 MG/2 ML ORAL.CONC 145 MG PO (07:05)
[2022-04-04] MEDS: Aspirin 81 MG TAB.CHEW PO (08:34)
[2022-04-04] MEDS: Pregabalin 75 MG CAPSULE PO ×2 (08:34→20:12)
[2022-04-04] MEDS: Thiamine HCL 100 MG TABLET PO (08:34)
[2022-04-04] MEDS: Multivitamin TABLET 1 TAB PO (08:34)
[2022-04-04] MEDS: Diclofenac Sodium Delayed Rel 50 MG TABLET.DR PO ×3 (08:34→20:12)
[2022-04-04 08:35] VITALS: BP 112/67; PULSE 85; RESP 16; TEMP 36.7; O2SAT 98
[2022-04-04] MEDS: busPIRone HCl 10 MG TABLET 20 MG PO ×3 (08:35→20:11)
[2022-04-04] MEDS: Nicotine Polacrilex 2 MG GUM 4 MG BUCCAL ×2 (08:35→16:05)
[2022-04-04] MEDS: Topiramate 100 MG TABLET PO (08:36)
[2022-04-04] MEDS: Gabapentin 400 MG CAPSULE 800 MG PO ×3 (08:36→20:13)
[2022-04-04] MEDS: Lithium Carbonate ER 450 MG TABLET.ER PO ×2 (08:36→20:12)
[2022-04-04] MEDS: clonazePAM 1 MG TABLET PO (08:36)
[2022-04-04] MEDS: Perphenazine 4 MG TABLET PO ×2 (08:36→14:04)
[2022-04-04] MEDS: Loratadine 10 MG TABLET PO (08:36)
[2022-04-04] MEDS: Nicotine 21 MG PATCH.TD24 TRANSDERMA (09:55)
[2022-04-04] MEDS: Cyclobenzaprine HCl 10 MG TABLET PO (09:55)
[2022-04-04] MEDS: Propranolol HCL 20 MG TABLET PO (09:57)
[2022-04-04 13:51] VITALS: BP 109/61; PULSE 78; RESP 16; TEMP 36.6; O2SAT 95
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
[2022-04-04] MEDS: clonazePAM 0.5 MG TABLET PO ×2 (14:04→20:12)
[2022-04-04] MEDS: hydrOXYzine HCL 25 MG TABLET PO (16:09)
[2022-04-04 18:00] VITALS: BP 124/79; PULSE 78; RESP 16; TEMP 36.5; O2SAT 99
[2022-04-04] MEDS: Topiramate 100 MG TABLET 200 MG PO (20:12)
[2022-04-05] MEDS: Nicotine Polacrilex 2 MG GUM 4 MG BUCCAL ×3 (05:56→21:06)
[2022-04-05 06:00] VITALS: BP 104/56; PULSE 86; TEMP 36.3; O2SAT 97
[2022-04-05] MEDS: clonazePAM 0.5 MG TABLET PO ×3 (08:09→20:27)
[2022-04-05] MEDS: Diclofenac Sodium Delayed Rel 50 MG TABLET.DR PO ×3 (08:09→20:27)
[2022-04-05] MEDS: Gabapentin 400 MG CAPSULE 800 MG PO ×3 (08:09→20:27)
[2022-04-05] MEDS: busPIRone HCl 10 MG TABLET 20 MG PO ×3 (08:09→20:27)
[2022-04-05] MEDS: Perphenazine 4 MG TABLET PO ×3 (08:09→20:27)
[2022-04-05] MEDS: Aspirin 81 MG TAB.CHEW PO (08:09)
[2022-04-05] MEDS: Multivitamin TABLET 1 TAB PO (08:09)
[2022-04-05] MEDS: Topiramate 100 MG TABLET PO (08:09)
[2022-04-05] MEDS: Loratadine 10 MG TABLET PO (08:10)
[2022-04-05] MEDS: Pregabalin 75 MG CAPSULE PO ×2 (08:10→20:27)
[2022-04-05] MEDS: Thiamine HCL 100 MG TABLET PO (08:10)
[2022-04-05] MEDS: Lithium Carbonate ER 450 MG TABLET.ER PO ×2 (08:10→20:27)
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
[2022-04-05] MEDS: methADONE HCl 20 MG/2 ML ORAL.CONC 145 MG PO (10:15)
[2022-04-05] MEDS: methADONE HCl 20 MG/2 ML ORAL.CONC 5 MG PO (10:18)
[2022-04-05] MEDS: hydrOXYzine HCL 25 MG TABLET PO (17:34)
[2022-04-05 18:28] VITALS: BP 119/69; PULSE 76; TEMP 36.5
[2022-04-05] MEDS: Cyclobenzaprine HCl 10 MG TABLET PO (20:27)
[2022-04-05] MEDS: Topiramate 100 MG TABLET 200 MG PO (20:27)
[2022-04-06] MEDS: Propranolol HCL 20 MG TABLET PO (05:48)
[2022-04-06] MEDS: hydrOXYzine HCL 25 MG TABLET PO (05:48)
[2022-04-06 06:00] VITALS: BP 114/59; PULSE 76; TEMP 36.2; O2SAT 98
[2022-04-06] MEDS: methADONE HCl 20 MG/2 ML ORAL.CONC 145 MG PO (08:06)
[2022-04-06] MEDS: Gabapentin 400 MG CAPSULE 800 MG PO ×3 (08:07→22:27)
[2022-04-06] MEDS: busPIRone HCl 10 MG TABLET 20 MG PO ×3 (08:08→22:13)
[2022-04-06] MEDS: clonazePAM 0.5 MG TABLET PO (08:08)
[2022-04-06] MEDS: Topiramate 100 MG TABLET PO (08:08)
[2022-04-06] MEDS: Perphenazine 4 MG TABLET PO (08:09)
[2022-04-06] MEDS: Loratadine 10 MG TABLET PO (08:09)
[2022-04-06] MEDS: Aspirin 81 MG TAB.CHEW PO (08:09)
[2022-04-06] MEDS: Multivitamin TABLET 1 TAB PO (08:10)
[2022-04-06] MEDS: Thiamine HCL 100 MG TABLET PO (08:10)
[2022-04-06] MEDS: Diclofenac Sodium Delayed Rel 50 MG TABLET.DR PO ×3 (08:12→22:13)
[2022-04-06] MEDS: Pregabalin 75 MG CAPSULE PO ×2 (08:14→22:12)
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
[2022-04-06] MEDS: metroNIDAZOLE 500 MG TABLET PO ×2 (12:37→22:13)
[2022-04-06] MEDS: Fluconazole 150 MG TABLET PO (12:37)
--- NOTE | 2022-04-06 13:40 | PC.NURSE ---
Pt appeared very sedated in the kitchen area and was slumped over in her chair. RN's assessed vitals, 108/58, HR 70, T 97.6, respirations 8. Pt was eventually able to be aroused and led back to her room, Dr. Aguilar aware.
[2022-04-06] MEDS: Acetaminophen 325 MG TABLET 650 MG PO (14:33)
[2022-04-06 19:05] VITALS: BP 128/62; PULSE 71; TEMP 36.2; O2SAT 97
[2022-04-06] MEDS: Lithium Carbonate ER 450 MG TABLET.ER 900 MG PO (22:12)
[2022-04-06] MEDS: Topiramate 100 MG TABLET 200 MG PO (22:14)
[2022-04-06] MEDS: Nicotine Polacrilex 2 MG GUM 4 MG BUCCAL (22:29)
[2022-04-07] MEDS: clonazePAM 0.5 MG TABLET PO (05:38)
[2022-04-07 06:00] VITALS: BP 111/68; PULSE 73; RESP 18; TEMP 36.4; O2SAT 98
[2022-04-07] MEDS: methADONE HCl 20 MG/2 ML ORAL.CONC 145 MG PO (08:05)
[2022-04-07] MEDS: busPIRone HCl 10 MG TABLET 20 MG PO ×3 (08:06→21:31)
[2022-04-07] MEDS: Nicotine 21 MG PATCH.TD24 TRANSDERMA (08:06)
[2022-04-07] MEDS: Pregabalin 75 MG CAPSULE PO ×2 (08:06→21:32)
[2022-04-07] MEDS: Multivitamin TABLET 1 TAB PO (08:07)
[2022-04-07] MEDS: Topiramate 100 MG TABLET PO (08:07)
[2022-04-07] MEDS: Aspirin 81 MG TAB.CHEW PO (08:07)
[2022-04-07] MEDS: Diclofenac Sodium Delayed Rel 50 MG TABLET.DR PO ×3 (08:07→21:31)
[2022-04-07] MEDS: Nicotine Polacrilex 2 MG GUM 4 MG BUCCAL ×5 (08:07→22:56)
[2022-04-07] MEDS: Loratadine 10 MG TABLET PO (08:07)
[2022-04-07] MEDS: metroNIDAZOLE 500 MG TABLET PO ×2 (08:07→21:32)
[2022-04-07] MEDS: Thiamine HCL 100 MG TABLET PO (08:07)
[2022-04-07] MEDS: Gabapentin 400 MG CAPSULE 800 MG PO ×3 (11:25→21:46)
[2022-04-07] MEDS: clonazePAM 1 MG TABLET PO ×3 (11:30→19:40)
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
[2022-04-07 17:10] VITALS: BP 106/71; PULSE 70; RESP 14
[2022-04-07] MEDS: Propranolol HCL 20 MG TABLET PO (17:12)
[2022-04-07] MEDS: Perphenazine 4 MG TABLET PO (19:40)
[2022-04-07] MEDS: Topiramate 100 MG TABLET 200 MG PO (21:32)
[2022-04-07] MEDS: Lithium Carbonate ER 450 MG TABLET.ER 900 MG PO (21:32)
[2022-04-07] MEDS: Cyclobenzaprine HCl 10 MG TABLET PO (21:32)
[2022-04-07] MEDS: LORazepam 1 MG TABLET 2 MG PO (22:14)
[2022-04-07] MEDS: Clotrimazole 1 % Cream 15 GM TUBE 1 APPL TOPICAL (22:14)
[2022-04-07] MEDS: Mineral Oil/Petrolatum,White 106 GM Tube 1 APPL TOPICAL (22:14)
[2022-04-08 08:30] VITALS: BP 123/60; PULSE 78; RESP 16; TEMP 36.4; O2SAT 96
[2022-04-08] MEDS: Nicotine 21 MG PATCH.TD24 TRANSDERMA (08:44)
[2022-04-08] MEDS: busPIRone HCl 10 MG TABLET 20 MG PO ×3 (08:46→20:43)
[2022-04-08] MEDS: Diclofenac Sodium Delayed Rel 50 MG TABLET.DR PO ×3 (08:46→20:43)
[2022-04-08] MEDS: Multivitamin TABLET 1 TAB PO (08:47)
[2022-04-08] MEDS: metroNIDAZOLE 500 MG TABLET PO ×2 (08:47→20:43)
[2022-04-08] MEDS: Loratadine 10 MG TABLET PO (08:47)
[2022-04-08] MEDS: Aspirin 81 MG TAB.CHEW PO (08:47)
[2022-04-08] MEDS: Pregabalin 75 MG CAPSULE PO ×2 (08:48→20:44)
[2022-04-08] MEDS: Thiamine HCL 100 MG TABLET PO (08:48)
[2022-04-08] MEDS: Topiramate 100 MG TABLET PO (08:48)
[2022-04-08] MEDS: clonazePAM 1 MG TABLET PO ×3 (08:52→20:43)
[2022-04-08] MEDS: Nicotine Polacrilex 2 MG GUM 4 MG BUCCAL ×2 (08:52→16:16)
[2022-04-08] MEDS: methADONE HCl 20 MG/2 ML ORAL.CONC 145 MG PO (08:54)
[2022-04-08] MEDS: Gabapentin 400 MG CAPSULE 800 MG PO ×3 (11:34→21:02)
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
[2022-04-08] MEDS: Cyclobenzaprine HCl 10 MG TABLET PO ×2 (16:15→20:42)
[2022-04-08 18:40] VITALS: BP 111/87; PULSE 94; TEMP 36.2; O2SAT 97
[2022-04-08] MEDS: Acetaminophen 325 MG TABLET 650 MG PO (18:44)
[2022-04-08] MEDS: hydrOXYzine HCL 25 MG TABLET PO (18:44)
[2022-04-08] MEDS: Propranolol HCL 20 MG TABLET PO (18:44)
[2022-04-08] MEDS: Lithium Carbonate ER 450 MG TABLET.ER 900 MG PO (20:44)
[2022-04-08] MEDS: Topiramate 100 MG TABLET 200 MG PO (20:44)
[2022-04-08] MEDS: Perphenazine 4 MG TABLET PO (21:02)
[2022-04-09] MEDS: Nicotine 21 MG PATCH.TD24 TRANSDERMA (08:33)
[2022-04-09] MEDS: Loratadine 10 MG TABLET PO (08:34)
[2022-04-09] MEDS: metroNIDAZOLE 500 MG TABLET PO ×2 (08:34→21:18)
[2022-04-09] MEDS: Aspirin 81 MG TAB.CHEW PO (08:34)
[2022-04-09] MEDS: Topiramate 100 MG TABLET PO (08:34)
[2022-04-09] MEDS: busPIRone HCl 10 MG TABLET 20 MG PO ×3 (08:34→21:18)
[2022-04-09] MEDS: clonazePAM 1 MG TABLET PO ×3 (08:35→21:25)
[2022-04-09] MEDS: Pregabalin 75 MG CAPSULE PO ×2 (08:35→21:17)
[2022-04-09] MEDS: Diclofenac Sodium Delayed Rel 50 MG TABLET.DR PO ×3 (08:35→21:17)
[2022-04-09] MEDS: methADONE HCl 20 MG/2 ML ORAL.CONC 145 MG PO (08:35)
[2022-04-09] MEDS: Cyclobenzaprine HCl 10 MG TABLET PO ×2 (08:35→16:27)
[2022-04-09] MEDS: Multivitamin TABLET 1 TAB PO (08:35)
[2022-04-09] MEDS: Mineral Oil/Petrolatum,White 106 GM Tube 1 APPL TOPICAL ×2 (09:12→21:19)
[2022-04-09] MEDS: Clotrimazole 1 % Cream 15 GM TUBE 1 APPL TOPICAL ×2 (09:12→21:19)
[2022-04-09] MEDS: Thiamine HCL 100 MG TABLET PO (09:15)
[2022-04-09 10:09] VITALS: BP 138/60; PULSE 97; TEMP 37.1; O2SAT 94
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
[2022-04-09] MEDS: Gabapentin 400 MG CAPSULE 800 MG PO ×2 (16:20→21:29)
[2022-04-09] MEDS: Nicotine Polacrilex 2 MG GUM 4 MG BUCCAL ×3 (16:31→21:25)
[2022-04-09] MEDS: Propranolol HCL 20 MG TABLET PO (17:45)
[2022-04-09] MEDS: Perphenazine 4 MG TABLET PO (17:45)
[2022-04-09 19:04] VITALS: BP 127/70; PULSE 107; TEMP 36.3; O2SAT 99
[2022-04-09] MEDS: Lithium Carbonate ER 450 MG TABLET.ER 900 MG PO (21:18)
[2022-04-09] MEDS: Topiramate 100 MG TABLET 200 MG PO (21:18)
[2022-04-10] MEDS: Nicotine Polacrilex 2 MG GUM 4 MG BUCCAL ×4 (00:26→20:16)
[2022-04-10] MEDS: hydrOXYzine HCL 25 MG TABLET PO ×2 (00:27→16:58)
[2022-04-10] MEDS: clonazePAM 1 MG TABLET PO ×3 (00:36→20:16)
[2022-04-10] MEDS: Cyclobenzaprine HCl 10 MG TABLET PO ×3 (00:36→20:15)
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
[2022-04-10 06:00] VITALS: BP 130/88; RESP 16; TEMP 36.7
[2022-04-10] MEDS: Diclofenac Sodium Delayed Rel 50 MG TABLET.DR PO ×3 (07:59→19:06)
[2022-04-10] MEDS: Thiamine HCL 100 MG TABLET PO (07:59)
[2022-04-10] MEDS: Aspirin 81 MG TAB.CHEW PO (08:00)
[2022-04-10] MEDS: Loratadine 10 MG TABLET PO (08:00)
[2022-04-10] MEDS: metroNIDAZOLE 500 MG TABLET PO ×2 (08:00→19:06)
[2022-04-10] MEDS: Topiramate 100 MG TABLET PO (08:00)
[2022-04-10] MEDS: busPIRone HCl 10 MG TABLET 20 MG PO ×3 (08:00→19:05)
[2022-04-10] MEDS: Pregabalin 75 MG CAPSULE PO ×2 (08:00→19:06)
[2022-04-10] MEDS: Multivitamin TABLET 1 TAB PO (08:00)
[2022-04-10] MEDS: methADONE HCl 20 MG/2 ML ORAL.CONC 140 MG PO (08:01)
[2022-04-10] MEDS: Nicotine 21 MG PATCH.TD24 TRANSDERMA (08:10)
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
[2022-04-10] MEDS: Gabapentin 400 MG CAPSULE 800 MG PO ×2 (16:33→19:21)
[2022-04-10 16:43] VITALS: BP 109/58; PULSE 75
[2022-04-10] MEDS: Propranolol HCL 20 MG TABLET PO (16:44)
--- NOTE | 2022-04-10 17:30 | PM.EVENT ---
Event Note Date of Service: 04/10/22 Event Note: Addiction consult Request to review methadoen dose and taper as patient is appearing sedated on unit chart reviewed. Patient also on several sedating medications including Klonopin TID --discussed with provider regarding decreasing this dose Advised additional 5mg could be decreased on methadone given reports of over sedation following methadone administration Will follow up in AM
[2022-04-10] MEDS: Topiramate 100 MG TABLET 200 MG PO (19:05)
[2022-04-10] MEDS: Lithium Carbonate ER 450 MG TABLET.ER 900 MG PO (19:06)
[2022-04-10] MEDS: Perphenazine 4 MG TABLET PO (20:18)
[2022-04-11] MEDS: busPIRone HCl 10 MG TABLET 20 MG PO ×3 (08:26→20:50)
[2022-04-11] MEDS: Cyclobenzaprine HCl 10 MG TABLET PO (08:26)
[2022-04-11] MEDS: Multivitamin TABLET 1 TAB PO (08:27)
[2022-04-11] MEDS: metroNIDAZOLE 500 MG TABLET PO ×2 (08:27→20:49)
[2022-04-11] MEDS: Thiamine HCL 100 MG TABLET PO (08:27)
[2022-04-11] MEDS: Diclofenac Sodium Delayed Rel 50 MG TABLET.DR PO ×3 (08:27→20:49)
[2022-04-11] MEDS: Loratadine 10 MG TABLET PO (08:27)
[2022-04-11] MEDS: Nicotine 21 MG PATCH.TD24 TRANSDERMA (08:27)
[2022-04-11] MEDS: Aspirin 81 MG TAB.CHEW PO (08:27)
[2022-04-11] MEDS: Topiramate 100 MG TABLET PO (08:27)
[2022-04-11] MEDS: methADONE HCl 20 MG/2 ML ORAL.CONC 140 MG PO (08:28)
[2022-04-11] MEDS: clonazePAM 1 MG TABLET PO ×3 (08:53→20:49)
[2022-04-11] MEDS: Pregabalin 75 MG CAPSULE PO (09:00)
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
--- NOTE | 2022-04-11 12:10 | P.PNADD_ITS ---
Subjective Subjective Date of Service: 04/11/22 Reason For Visit: depression Interim History: Patient seen with recovery support RN. Chart reviewed, including all behavioral health provider notes indicating all medication decreases since time of admission. Methadone has been decreased to 5 mg (currently at 140 mg). Patient seen on the unit, when walking around appearing more awake and alert, however still moving and speaking somewhat slowly. Once in a room and patient seated, patient fell asleep. This customs entry writer attempted multiple times to wake her and further evaluate her, patient irritable, denying that she is a sleep, stating that she did not sleep last evening (unable to keep her eyes open). Did not appear to be in any respiratory distress, quite sedated. Review of Systems Review of Systems Yes Unobtainable due to mental status Mental Status Exam Mental Status Exam Patient Appearance: Well Grooomed Level of Consciousness: Drowsy and Sedated Mood Description: Labile and Angry Affect Description: Labile (When awake) Judgement: Poor Diagnostics Vital Signs (24Hr): Vital Signs - 24 hr 04/10/22 16:43 Pulse Rate 75 Blood Pressure 109/58 L BMI result Body Mass Index 32.3 Labs Results: 03/28/22 17:14 04/01/22 08:06 Imaging Radiology Impressions: ITS Impressions Lumbar Spine X-Ray 04/01/22 15:01 IMPRESSION: Normal lumbar spine. Constipation. Medications Medications Current Medications Acetaminophen (Acetaminophen 325 Mg Tablet) 650 mg PO Q6H PRN PRN Reason: Headache/Pain Mild Scale (1-3) Last Admin: 04/08/22 18:44 Dose: 650 mg Al Hydroxide/Mg Hydroxide (Magnesium Hydrox/Alum Hydrox 30 Ml Oral.Susp) 30 ml PO Q6H PRN PRN Reason: Heartburn/Nausea Last Admin: 04/03/22 18:23 Dose: 30 ml Aspirin (Aspirin 81 Mg Tab.Chew) 81 mg PO DAILY [facility] Last Admin: 04/11/22 08:27 Dose: 81 mg Buspirone HCl (Buspirone Hcl 10 Mg Tablet) 20 mg PO TID [facility] Last Admin: 04/11/22 08:26 Dose: 20 mg Clonazepam (Clonazepam 1 Mg Tablet) 1 mg PO BID PRN PRN Reason: Anxiety Clotrimazole (Clotrimazole 1 % Cream 15 Gm Tube) 1 appl TOPICAL BID [facility]; Protocol Last Admin: 04/11/22 08:59 Dose: Not Given Cyclobenzaprine HCl (Cyclobenzaprine Hcl 10 Mg Tablet) 10 mg PO BID PRN PRN Reason: Muscle Spasm Last Admin: 04/11/22 08:26 Dose: 10 mg Diclofenac Sodium (Diclofenac Sodium Delayed Rel 50 Mg Tablet.Dr) 50 mg PO TID [facility] Last Admin: 04/11/22 08:27 Dose: 50 mg Gabapentin (Gabapentin 400 Mg Capsule) 800 mg PO TID@1100,1600,2100 [facility] Last Admin: 04/11/22 11:11 Dose: Not Given Hydroxyzine HCl (Hydroxyzine Hcl 25 Mg Tablet) 25 mg PO Q6H PRN PRN Reason: Anxiety Last Admin: 04/10/22 16:58 Dose: 25 mg [place] Carbonate ([place] Carbonate Er 450 Mg Tablet.Er) 900 mg PO BEDTIME [facility] Last Admin: 04/10/22 19:06 Dose: 900 mg Loperamide HCl (Loperamide Hcl 2 Mg Capsule) 2 mg PO BID PRN PRN Reason: loose stool Loratadine (Loratadine 10 Mg Tablet) 10 mg PO DAILY [facility] Last Admin: 04/11/22 08:27 Dose: 10 mg Magnesium Hydroxide (Milk Of Magnesia 30 Ml Oral.Susp) 30 ml PO DAILY PRN PRN Reason: Constipation Methadone HCl (Methadone Hcl 20 Mg/2 Ml Oral.Conc) 135 mg PO DAILY [facility] Metronidazole (Metronidazole 500 Mg Tablet) 500 mg PO BID [facility] Stop: 04/12/22 23:50 Last Admin: 04/11/22 08:27 Dose: 500 mg Multi-Ingred Cream/Lotion/Oil/Oint (Mineral Oil/Petrolatum,White 106 Gm Tube) 1 appl TOPICAL BID [facility]; Protocol Last Admin: 04/11/22 08:59 Dose: Not Given Multivitamins/Vitamin C (Multivitamin Tablet) 1 tab PO DAILY [facility] Last Admin: 04/11/22 08:27 Dose: 1 tab Nicotine (Nicotine 21 Mg Patch.Td24) 21 mg TRANSDERMA DAILY PRN PRN Reason: nicotine cravings Last Admin: 04/11/22 08:27 Dose: 21 mg Nicotine Polacrilex (Nicotine Polacrilex 2 Mg Gum) 4 mg BUCCAL Q2H PRN PRN Reason: Nicotine Cravings Last Admin: 04/10/22 20:16 Dose: 4 mg Perphenazine (Perphenazine 4 Mg Tablet) 4 mg PO TID PRN PRN Reason: anxiety/agitation Last Admin: 04/10/22 20:18 Dose: 4 mg Pregabalin (Pregabalin 75 Mg Capsule) 75 mg PO DAILY [facility] Propranolol HCl (Propranolol Hcl 20 Mg Tablet) 20 mg PO Q6H PRN; Protocol PRN Reason: anxiety Last Admin: 04/10/22 16:44 Dose: 20 mg Thiamine HCl (Thiamine Hcl 100 Mg Tablet) 100 mg PO DAILY [facility] Last Admin: 04/11/22 08:27 Dose: 100 mg Topiramate (Topiramate 100 Mg Tablet) 100 mg PO DAILY [facility] Last Admin: 04/11/22 08:27 Dose: 100 mg Topiramate (Topiramate 100 Mg Tablet) 200 mg PO BEDTIME [facility] Last Admin: 04/10/22 19:05 Dose: 200 mg Allergies Allergies Allergy/AdvReac Type Severity Reaction Status Date / Time quetiapine [From SEROQUEL] Allergy Severe THROAT Verified 04/01/22 10:03 SWELLING azithromycin [AZITHROMYCIN] Allergy Unknown Unknown Verified 04/01/22 10:03 erythromycin base Allergy Unknown RASH Verified 05/22/21 18:18 [ERYTHROMYCIN BASE] olanzapine [From ZYPREXA] Allergy Unknown PEDAL EDEMA Verified 05/22/21 18:18 sulfacetamide Allergy Unknown Unknown Verified 05/22/21 18:18 [From Sulfacet-R] sulfamethoxazole Allergy Unknown ITCHING Verified 05/22/21 18:18 [From BACTRIM] sulfur [From Sulfacet-R] Allergy Unknown Unknown Verified 05/22/21 18:18 trimethoprim [From BACTRIM] Allergy Unknown ITCHING Verified 05/22/21 18:18 risperidone [From RISPERDAL] AdvReac Unknown TWITCHING Verified 04/01/22 10:03 seafood AdvReac Unknown Vomiting Verified 05/22/21 18:18 shellfish derived AdvReac Unknown VOMITING Verified 04/01/22 10:03 [SHELLFISH DERIVED] Assessment & Plan Assessment & Plan (1) Opioid use disorder, moderate, in sustained remission, dependence: Status: Acute Code(s): F11.21 - Opioid dependence, in remission Assessment and Plan: * Plan to reduce methadone to 135 mg tomorrow, April 12. * Addiction medicine provider to check in on Thursday and assess if further dose decrease should occur * Discussed case with provider I spent __15____ minutes with the patient and/or on the patient floor today, greater than?50% of which was spent counseling/coordinating care.
[2022-04-11] MEDS: Nicotine Polacrilex 2 MG GUM 4 MG BUCCAL ×3 (14:30→21:58)
[2022-04-11] MEDS: Gabapentin 400 MG CAPSULE 800 MG PO ×2 (17:04→22:05)
[2022-04-11] MEDS: hydrOXYzine HCL 25 MG TABLET PO (17:07)
[2022-04-11 18:00] VITALS: BP 115/55; PULSE 89; RESP 18; TEMP 36.6
[2022-04-11] MEDS: Perphenazine 4 MG TABLET PO (18:22)
[2022-04-11] MEDS: Propranolol HCL 20 MG TABLET PO (18:22)
[2022-04-11] MEDS: Lithium Carbonate ER 450 MG TABLET.ER 900 MG PO (20:50)
[2022-04-11] MEDS: Topiramate 100 MG TABLET 200 MG PO (22:08)
[2022-04-12] MEDS: Propranolol HCL 20 MG TABLET PO ×3 (03:21→20:14)
[2022-04-12] MEDS: clonazePAM 1 MG TABLET PO ×3 (03:21→16:14)
[2022-04-12] MEDS: hydrOXYzine HCL 25 MG TABLET PO ×2 (03:21→16:14)
[2022-04-12 08:15] VITALS: BP 118/59; PULSE 71; RESP 16; O2SAT 97
[2022-04-12] MEDS: metroNIDAZOLE 500 MG TABLET PO ×2 (08:24→20:13)
[2022-04-12] MEDS: Pregabalin 75 MG CAPSULE PO (08:24)
[2022-04-12] MEDS: busPIRone HCl 10 MG TABLET 20 MG PO ×3 (08:24→20:13)
[2022-04-12] MEDS: Diclofenac Sodium Delayed Rel 50 MG TABLET.DR PO ×3 (08:25→20:13)
[2022-04-12] MEDS: Aspirin 81 MG TAB.CHEW PO (08:26)
[2022-04-12] MEDS: Multivitamin TABLET 1 TAB PO (08:26)
[2022-04-12] MEDS: Loratadine 10 MG TABLET PO (08:26)
[2022-04-12] MEDS: Thiamine HCL 100 MG TABLET PO (08:26)
[2022-04-12] MEDS: Topiramate 100 MG TABLET PO (08:26)
[2022-04-12] MEDS: Nicotine Polacrilex 2 MG GUM 4 MG BUCCAL ×4 (08:28→20:15)
[2022-04-12] MEDS: Nicotine 21 MG PATCH.TD24 TRANSDERMA (08:28)
[2022-04-12] MEDS: methADONE HCl 20 MG/2 ML ORAL.CONC 135 MG PO (08:30)
--- NOTE | 2022-04-12 09:09 | HO.PSYCHPN ---
Subjective Subjective Date of Service: 04/12/22 Reason For Visit: depression Subjective Notes: Conditional Voluntary Healthcare Proxy: No Guardianship: No Medical Problems Affecting Mental Status: No Interim History: Patient was seen and discussed in rounds today. Records and plans were reviewed. She continues to be decreased on some of her medications and she was very upset about the decrease of methadone by 5 mg. She was urging me to put her back up to the previous dose and when I refuse she became angry, ?so what good OU, your supposed to help people?. She has been more alert. She has been more visible. Sleeping has been erratic, being awakened by nightmares. P no changes were made today Review of Systems Review of Systems Yes all other systems are reviewed and are negative Mental Status Exam Mental Status Exam Narrative: In today's visit she is alert, oriented and initially pleasant. Normal speech. Moderate eye contact. Affect is appropriate. She was somewhat irritable specially when she learned that I was not going to change her methadone order. No signs of psychosis. No SI/HI. Cognitively is grossly intact. Judgment is intact Diagnostics Vital Signs (24Hr): Vital Signs - 24 hr 04/11/22 18:00 Temperature 97.8 F Pulse Rate 89 Respiratory Rate 18 Blood Pressure 115/55 L Oxygen Delivery Method Room Air BMI result Body Mass Index 32.3 Labs Results: 03/28/22 17:14 04/01/22 08:06 Imaging Radiology Impressions: ITS Impressions Lumbar Spine X-Ray 04/01/22 15:01 IMPRESSION: Normal lumbar spine. Constipation. Medications Medications Current Medications Acetaminophen (Acetaminophen 325 Mg Tablet) 650 mg PO Q6H PRN PRN Reason: Headache/Pain Mild Scale (1-3) Last Admin: 04/08/22 18:44 Dose: 650 mg Al Hydroxide/Mg Hydroxide (Magnesium Hydrox/Alum Hydrox 30 Ml Oral.Susp) 30 ml PO Q6H PRN PRN Reason: Heartburn/Nausea Last Admin: 04/03/22 18:23 Dose: 30 ml Aspirin (Aspirin 81 Mg Tab.Chew) 81 mg PO DAILY [facility] Last Admin: 04/12/22 08:26 Dose: 81 mg Buspirone HCl (Buspirone Hcl 10 Mg Tablet) 20 mg PO TID [facility] Last Admin: 04/12/22 08:24 Dose: 20 mg Clonazepam (Clonazepam 1 Mg Tablet) 1 mg PO TID PRN PRN Reason: Anxiety Last Admin: 04/12/22 03:21 Dose: 1 mg Clotrimazole (Clotrimazole 1 % Cream 15 Gm Tube) 1 appl TOPICAL BID [facility]; Protocol Last Admin: 04/11/22 22:08 Dose: Not Given Cyclobenzaprine HCl (Cyclobenzaprine Hcl 10 Mg Tablet) 10 mg PO BID PRN PRN Reason: Muscle Spasm Last Admin: 04/11/22 08:26 Dose: 10 mg Diclofenac Sodium (Diclofenac Sodium Delayed Rel 50 Mg Tablet.Dr) 50 mg PO TID [facility] Last Admin: 04/12/22 08:25 Dose: 50 mg Gabapentin (Gabapentin 400 Mg Capsule) 800 mg PO TID@1100,1600,2100 [facility] Last Admin: 04/11/22 22:05 Dose: 800 mg Hydroxyzine HCl (Hydroxyzine Hcl 25 Mg Tablet) 25 mg PO Q6H PRN PRN Reason: Anxiety Last Admin: 04/12/22 03:21 Dose: 25 mg [place] Carbonate ([place] Carbonate Er 450 Mg Tablet.Er) 900 mg PO BEDTIME [facility] Last Admin: 04/11/22 20:50 Dose: 900 mg Loperamide HCl (Loperamide Hcl 2 Mg Capsule) 2 mg PO BID PRN PRN Reason: loose stool Loratadine (Loratadine 10 Mg Tablet) 10 mg PO DAILY [facility] Last Admin: 04/12/22 08:26 Dose: 10 mg Magnesium Hydroxide (Milk Of Magnesia 30 Ml Oral.Susp) 30 ml PO DAILY PRN PRN Reason: Constipation Methadone HCl (Methadone Hcl 20 Mg/2 Ml Oral.Conc) 135 mg PO DAILY [facility] Last Admin: 04/12/22 08:30 Dose: 135 mg Metronidazole (Metronidazole 500 Mg Tablet) 500 mg PO BID [facility] Stop: 04/12/22 23:50 Last Admin: 04/12/22 08:24 Dose: 500 mg Multi-Ingred Cream/Lotion/Oil/Oint (Mineral Oil/Petrolatum,White 106 Gm Tube) 1 appl TOPICAL BID [facility]; Protocol Last Admin: 04/11/22 22:08 Dose: Not Given Multivitamins/Vitamin C (Multivitamin Tablet) 1 tab PO DAILY [facility] Last Admin: 04/12/22 08:26 Dose: 1 tab Nicotine (Nicotine 21 Mg Patch.Td24) 21 mg TRANSDERMA DAILY PRN PRN Reason: nicotine cravings Last Admin: 04/12/22 08:28 Dose: 21 mg Nicotine Polacrilex (Nicotine Polacrilex 2 Mg Gum) 4 mg BUCCAL Q2H PRN PRN Reason: Nicotine Cravings Last Admin: 04/12/22 08:28 Dose: 4 mg Perphenazine (Perphenazine 4 Mg Tablet) 4 mg PO TID PRN PRN Reason: anxiety/agitation Last Admin: 04/11/22 18:22 Dose: 4 mg Pregabalin (Pregabalin 75 Mg Capsule) 75 mg PO DAILY [facility] Last Admin: 04/12/22 08:24 Dose: 75 mg Propranolol HCl (Propranolol Hcl 20 Mg Tablet) 20 mg PO Q6H PRN; Protocol PRN Reason: anxiety Last Admin: 04/12/22 03:21 Dose: 20 mg Thiamine HCl (Thiamine Hcl 100 Mg Tablet) 100 mg PO DAILY [facility] Last Admin: 04/12/22 08:26 Dose: 100 mg Topiramate (Topiramate 100 Mg Tablet) 100 mg PO DAILY [facility] Last Admin: 04/12/22 08:26 Dose: 100 mg Topiramate (Topiramate 100 Mg Tablet) 200 mg PO BEDTIME [facility] Last Admin: 04/11/22 22:08 Dose: 200 mg Allergies Allergies Allergy/AdvReac Type Severity Reaction Status Date / Time quetiapine [From SEROQUEL] Allergy Severe THROAT Verified 04/01/22 10:03 SWELLING azithromycin [AZITHROMYCIN] Allergy Unknown Unknown Verified 04/01/22 10:03 erythromycin base Allergy Unknown RASH Verified 05/22/21 18:18 [ERYTHROMYCIN BASE] olanzapine [From ZYPREXA] Allergy Unknown PEDAL EDEMA Verified 05/22/21 18:18 sulfacetamide Allergy Unknown Unknown Verified 05/22/21 18:18 [From Sulfacet-R] sulfamethoxazole Allergy Unknown ITCHING Verified 05/22/21 18:18 [From BACTRIM] sulfur [From Sulfacet-R] Allergy Unknown Unknown Verified 05/22/21 18:18 trimethoprim [From BACTRIM] Allergy Unknown ITCHING Verified 05/22/21 18:18 risperidone [From RISPERDAL] AdvReac Unknown TWITCHING Verified 04/01/22 10:03 seafood AdvReac Unknown Vomiting Verified 05/22/21 18:18 shellfish derived AdvReac Unknown VOMITING Verified 04/01/22 10:03 [SHELLFISH DERIVED] Assessment & Plan Assessment & Plan (1) Opioid use disorder, moderate, in sustained remission, dependence: Status: Acute Code(s): F11.21 - Opioid dependence, in remission Assessment and Plan: Plan to reduce methadone to 135 mg tomorrow, April 12. Addiction medicine provider to check in on Thursday and assess if further dose decrease should occur Discussed case with provider Plan 04/12: Continue current regimen and plans I spent minutes with the patient and/or on the patient floor today, greater than?50% of which was spent counseling/coordinating care. Reason for contiued inpatient stay Substantial Risk for: med/psych decompensation
[2022-04-12] MEDS: Cyclobenzaprine HCl 10 MG TABLET PO (12:43)
[2022-04-12] MEDS: Magnesium Hydrox/Alum Hydrox 30 ML ORAL.SUSP PO (16:13)
[2022-04-12 16:34] VITALS: BP 105/56
[2022-04-12 16:56] VITALS: BP 105/56; PULSE 74; RESP 18; TEMP 36.2; O2SAT 98
[2022-04-12] MEDS: Gabapentin 400 MG CAPSULE 800 MG PO ×2 (18:15→22:25)
[2022-04-12] MEDS: Perphenazine 4 MG TABLET PO (18:37)
[2022-04-12] MEDS: Topiramate 100 MG TABLET 200 MG PO (20:12)
[2022-04-12] MEDS: Lithium Carbonate ER 450 MG TABLET.ER 900 MG PO (20:14)
[2022-04-13] MEDS: Nicotine Polacrilex 2 MG GUM 4 MG BUCCAL ×3 (00:25→19:51)
[2022-04-13] MEDS: Perphenazine 4 MG TABLET PO ×2 (02:12→11:34)
[2022-04-13] MEDS: hydrOXYzine HCL 25 MG TABLET PO ×2 (02:15→15:56)
[2022-04-13] MEDS: Cyclobenzaprine HCl 10 MG TABLET PO ×2 (02:35→14:34)
[2022-04-13] MEDS: clonazePAM 1 MG TABLET PO ×3 (02:36→16:46)
[2022-04-13] MEDS: Propranolol HCL 20 MG TABLET PO ×2 (04:02→15:55)
[2022-04-13] MEDS: Acetaminophen 325 MG TABLET 650 MG PO (05:40)
[2022-04-13 06:00] VITALS: BP 98/53; PULSE 70; RESP 18; TEMP 36.4; O2SAT 97
[2022-04-13] MEDS: Ferrous Sulfate 324 MG TABLET.DR PO (07:52)
[2022-04-13] MEDS: Multivitamin TABLET 1 TAB PO (07:53)
[2022-04-13] MEDS: Loratadine 10 MG TABLET PO (07:53)
[2022-04-13] MEDS: Diclofenac Sodium Delayed Rel 50 MG TABLET.DR PO ×3 (07:53→19:52)
[2022-04-13] MEDS: busPIRone HCl 10 MG TABLET 20 MG PO ×3 (07:53→19:53)
[2022-04-13] MEDS: Thiamine HCL 100 MG TABLET PO (07:54)
[2022-04-13] MEDS: Topiramate 100 MG TABLET PO (07:54)
[2022-04-13] MEDS: Aspirin 81 MG TAB.CHEW PO (07:54)
[2022-04-13] MEDS: Pregabalin 75 MG CAPSULE PO (07:54)
[2022-04-13] MEDS: Nicotine 21 MG PATCH.TD24 TRANSDERMA (07:57)
[2022-04-13] MEDS: methADONE HCl 20 MG/2 ML ORAL.CONC 135 MG PO (07:58)
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
--- NOTE | 2022-04-13 08:57 | PC.NURSE ---
Patient verbally requested to sign a 3-day notice on 04/13/22, it expires on 04/16/22
[2022-04-13] MEDS: Gabapentin 400 MG CAPSULE 800 MG PO (11:24)
--- NOTE | 2022-04-13 12:57 | PC.NURSE ---
pt signed 3 day notice on 04/13 up on 04/16
[2022-04-13 16:34] VITALS: BP 106/59; PULSE 65; RESP 18; TEMP 36.6; O2SAT 97
[2022-04-13] MEDS: Topiramate 100 MG TABLET 200 MG PO (19:53)
[2022-04-13] MEDS: Lithium Carbonate ER 450 MG TABLET.ER 900 MG PO (19:53)
[2022-04-14] MEDS: hydrOXYzine HCL 25 MG TABLET PO ×2 (01:19→14:29)
[2022-04-14] MEDS: clonazePAM 1 MG TABLET PO ×2 (01:19→12:47)
[2022-04-14] MEDS: Cyclobenzaprine HCl 10 MG TABLET PO ×2 (02:25→14:29)
[2022-04-14] MEDS: Nicotine Polacrilex 2 MG GUM 4 MG BUCCAL ×7 (02:25→21:07)
[2022-04-14] MEDS: Propranolol HCL 20 MG TABLET PO (02:25)
[2022-04-14] MEDS: Perphenazine 4 MG TABLET PO ×2 (05:24→21:05)
[2022-04-14 06:00] VITALS: BP 102/60; PULSE 68; RESP 18; TEMP 36.5; O2SAT 97
[2022-04-14] MEDS: methADONE HCl 20 MG/2 ML ORAL.CONC 135 MG PO (08:07)
[2022-04-14] MEDS: busPIRone HCl 10 MG TABLET 20 MG PO ×3 (08:07→20:48)
[2022-04-14] MEDS: Diclofenac Sodium Delayed Rel 50 MG TABLET.DR PO ×3 (08:07→20:46)
[2022-04-14] MEDS: Nicotine 21 MG PATCH.TD24 TRANSDERMA (08:07)
[2022-04-14] MEDS: Ferrous Sulfate 324 MG TABLET.DR PO (08:08)
[2022-04-14] MEDS: Pregabalin 75 MG CAPSULE PO ×2 (08:08→20:48)
[2022-04-14] MEDS: Aspirin 81 MG TAB.CHEW PO (08:08)
[2022-04-14] MEDS: Multivitamin TABLET 1 TAB PO (08:08)
[2022-04-14] MEDS: Topiramate 100 MG TABLET PO (08:08)
[2022-04-14] MEDS: Loratadine 10 MG TABLET PO (08:08)
[2022-04-14] MEDS: Thiamine HCL 100 MG TABLET PO (08:08)
[2022-04-14 10:25] LABS: MANUAL DIFF FLAG NO
[2022-04-14 10:28] LABS: Basophils Percent Auto 0.9 % (0-2); Eosinophils Absolute Auto 0.2 X10*3/uL (0.0-0.4); Eosinophils Percent Auto 5.2 % (0-4); Hematocrit 38.6 % (37.0-47.0); Hemoglobin 12.3 g/dl (12.0-16.0); Imm Gran Abs Auto 0.01 X10*3/uL (0.00-0.03); Imm Gran Pct Auto 0.2 % (0.0-0.4); Lymphocytes Absolute Auto 1.9 X10*3/uL (1.2-4.9); Lymphocytes Percent Auto 43.5 % (20-40); Mean Corpuscular HGB Conc 31.9 g/dl (31.0-35.0); Mean Corpuscular Hemoglobin 29.4 pg (27.0-33.0); Mean Corpuscular Volume 92.3 fL (80.0-98.0); Mean Platelet Volume 9.8 fL (9.4-12.3); Monocytes Absolute Auto 0.4 X10*3/uL (0.1-1.2); Monocytes Percent Auto 9.2 % (2-11); Neutrophils Absolute Auto 1.8 x10*3/uL (2.0-8.3); Platelet Count 158 X10*3/uL (160-400); Red Blood Count 4.18 X10*6/uL (4.20-5.50); Red Cell Distribution Width 13.9 % (11.0-16.0); White Blood Count 4.5 X10*3/uL (4.8-10.8)
[2022-04-14 10:47] LABS: Alanine Aminotransferase 66 U/L (0-31); Albumin Level 4.2 g/dL (3.5-5.0); Alkaline Phosphatase 77 U/L (39-117); Anion Gap 10 (12-20); Aspartate Amino Transferase 56 U/L (5-31); Bilirubin Total 0.2 mg/dL (0.0-1.0); Blood Urea Nitrogen 17 mg/dL (9-16); Calcium 8.8 mg/dL (8.4-10.2); Carbon Dioxide 21 mmol/L (22-29); Chloride 110 mmol/L (96-108); Creatinine Clr Calc Pharmacy 94.7; Estimated Glomerular Filt Rate > 60; Glucose Random 112 mg/dL (60-115); Potassium 4.1 mmol/L (3.3-5.1); Sodium 137 mmol/L (135-145); Total Protein 7.1 g/dL (6.5-8.0)
[2022-04-14 11:03] LABS: Lithium 0.88 mmol/L (0.60-1.20)
[2022-04-14 11:07] LABS: Thyroid Stimulating Hormone 5.35 uIU/mL (0.32-4.0)
[2022-04-14] MEDS: Gabapentin 400 MG CAPSULE 800 MG PO ×2 (12:45→16:16)
[2022-04-14 16:10] VITALS: BP 112/57; PULSE 69; TEMP 35.7
--- NOTE | 2022-04-14 19:59 | HO.PSYCHPN ---
Subjective Subjective Date of Service: 04/14/22 Reason For Visit: depression Subjective Notes: 3 Day Healthcare Proxy: No Guardianship: No Medical Problems Affecting Mental Status: No Interim History: Pt refusing of diagnostics. Expressed anger for medication tapering. Asks for re-enstatement of meds/doses. Complete review of regime with adjustments. Discussed team report of precipitous sedative episodes and goal of preventing these. Pt unwilling to work with team on these issues. Intrusive and argumentative with peers and team in milieu in efforts of medicine seeking Refuses offer of Sim placement. Medication Compliance: Yes Side effects from medications: Yes (intermittent sedation) Attending Groups: Intermittent Review of Systems Acute medical concerns: No Refuses all diagnostics Medical Review of Systems: unchanged Review of Systems Reports behavioral changes Psychiatric: Reports abnormal sleep pattern, Reports anxiety, Reports behavioral changes, Reports irritability, Reports anhedonia and Reports mood swings Mental Status Exam Mental Status Exam Patient Appearance: Appropriate Patient Orientation: Person, Place, Time and Situation Level of Consciousness: Alert Patient Behavior: Guarded, Talkative, Suspicious, Self Manipulative, Aggressive, Resistive to Care, Avoidant, Distractible, Good Eye Contact and Impulsive Mood Description: Labile Affect Description: Labile Patient Cognition Impaired: No Ability to Follow Directions: Good Speech Pattern: Spontaneous Speech Memory Description: Episodic Impaired Hallucinations: None Delusions: Not Present Thought Process: Distracted and Goal Oriented Thought Content: positive for Circumstantial and positive for Goal Oriented Depressive Symptoms: Increased Irritability Abnormal Motor Activity Signs and Symptoms: Aggression and Agitation Judgement: Good Diagnostics Vital Signs (24Hr): Vital Signs - 24 hr 04/14/22 06:00 Temperature 97.7 F Pulse Rate 68 Respiratory Rate 18 Blood Pressure 102/60 Pulse Oximetry 97 BMI result Body Mass Index 32.3 Labs Results: 04/14/22 10:19 04/14/22 10:19 Labs: Laboratory Results - last 48 hr 04/14/22 04/14/22 04/14/22 10:19 10:19 10:19 WBC 4.5 L RBC 4.18 L Hgb 12.3 Hct 38.6 MCV 92.3 MCH 29.4 MCHC 31.9 RDW 13.9 Plt Count 158 L D MPV 9.8 Immature Gran % (Auto) 0.2 Neut % (Auto) 41.0 L Lymph % (Auto) 43.5 H [place] % (Auto) 9.2 Eos % (Auto) 5.2 H Baso % (Auto) 0.9 Lymph # (Auto) 1.9 [place] # (Auto) 0.4 Eos # (Auto) 0.2 Baso # (Auto) 0.0 Abs Immat Gran (auto) 0.01 Absolute Neuts (auto) 1.8 L Absolute Nucleated RBC 0.000 Nucleated RBC % (auto) 0.0 Sodium 137 Potassium 4.1 Chloride 110 H Carbon Dioxide 21 L Anion Gap 10 L BUN 17 H Creatinine 0.86 Estim Creat Clear Calc 94.7 Estimated GFR > 60 Random Glucose 112 Calcium 8.8 Total Bilirubin 0.2 AST 56 H ALT 66 H Alkaline Phosphatase 77 Total Protein 7.1 Albumin 4.2 TSH 5.35 H [place] 0.88 Imaging Radiology Impressions: ITS Impressions Lumbar Spine X-Ray 04/01/22 15:01 IMPRESSION: Normal lumbar spine. Constipation. Medications Medications Current Medications Acetaminophen (Acetaminophen 325 Mg Tablet) 650 mg PO Q6H PRN PRN Reason: Headache/Pain Mild Scale (1-3) Last Admin: 04/13/22 05:40 Dose: 650 mg Al Hydroxide/Mg Hydroxide (Magnesium Hydrox/Alum Hydrox 30 Ml Oral.Susp) 30 ml PO Q6H PRN PRN Reason: Heartburn/Nausea Last Admin: 04/12/22 16:13 Dose: 30 ml Aspirin (Aspirin 81 Mg Tab.Chew) 81 mg PO DAILY [facility] Last Admin: 04/14/22 08:08 Dose: 81 mg Buspirone HCl (Buspirone Hcl 10 Mg Tablet) 20 mg PO TID [facility] Last Admin: 04/14/22 14:15 Dose: 20 mg Clonazepam (Clonazepam 0.5 Mg Tablet) 0.5 mg PO TID PRN PRN Reason: Anxiety Clotrimazole (Clotrimazole 1 % Cream 15 Gm Tube) 1 appl TOPICAL BID [facility]; Protocol Last Admin: 04/14/22 08:58 Dose: Not Given Cyclobenzaprine HCl (Cyclobenzaprine Hcl 10 Mg Tablet) 10 mg PO BID PRN PRN Reason: Muscle Spasm Last Admin: 04/14/22 14:29 Dose: 10 mg Diclofenac Sodium (Diclofenac Sodium Delayed Rel 50 Mg Tablet.Dr) 50 mg PO TID [facility] Last Admin: 04/14/22 14:15 Dose: 50 mg Ferrous Sulfate (Ferrous Sulfate 324 Mg Tablet.Dr) 324 mg PO DAILY [facility] Last Admin: 04/14/22 08:08 Dose: 324 mg Gabapentin (Gabapentin 400 Mg Capsule) 800 mg PO TID@1100,1600,2100 [facility] Last Admin: 04/14/22 16:16 Dose: 800 mg Hydroxyzine HCl (Hydroxyzine Hcl 25 Mg Tablet) 25 mg PO Q6H PRN PRN Reason: Anxiety Last Admin: 04/14/22 14:29 Dose: 25 mg [place] Carbonate ([place] Carbonate Er 450 Mg Tablet.Er) 900 mg PO BEDTIME [facility] Last Admin: 04/13/22 19:53 Dose: 900 mg Loperamide HCl (Loperamide Hcl 2 Mg Capsule) 2 mg PO BID PRN PRN Reason: loose stool Loratadine (Loratadine 10 Mg Tablet) 10 mg PO DAILY [facility] Last Admin: 04/14/22 08:08 Dose: 10 mg Magnesium Hydroxide (Milk Of Magnesia 30 Ml Oral.Susp) 30 ml PO DAILY PRN PRN Reason: Constipation Methadone HCl (Methadone Hcl 20 Mg/2 Ml Oral.Conc) 135 mg PO DAILY [facility] Last Admin: 04/14/22 08:07 Dose: 135 mg Multi-Ingred Cream/Lotion/Oil/Oint (Mineral Oil/Petrolatum,White 106 Gm Tube) 1 appl TOPICAL BID [facility]; Protocol Last Admin: 04/14/22 08:59 Dose: Not Given Multivitamins/Vitamin C (Multivitamin Tablet) 1 tab PO DAILY [facility] Last Admin: 04/14/22 08:08 Dose: 1 tab Nicotine (Nicotine 21 Mg Patch.Td24) 21 mg TRANSDERMA DAILY PRN PRN Reason: nicotine cravings Last Admin: 04/14/22 08:07 Dose: 21 mg Nicotine Polacrilex (Nicotine Polacrilex 2 Mg Gum) 4 mg BUCCAL Q2H PRN PRN Reason: Nicotine Cravings Last Admin: 04/14/22 16:17 Dose: 4 mg Pt Own Medication ( [facility] 1 Tab) 1 tab PO DAILY [facility] Last Admin: 04/14/22 08:59 Dose: Not Given Perphenazine (Perphenazine 4 Mg Tablet) 4 mg PO TID PRN PRN Reason: anxiety/agitation Last Admin: 04/14/22 05:24 Dose: 4 mg Pregabalin (Pregabalin 75 Mg Capsule) 75 mg PO BID [facility] Propranolol HCl (Propranolol Hcl 20 Mg Tablet) 20 mg PO Q6H PRN; Protocol PRN Reason: anxiety Last Admin: 04/14/22 02:25 Dose: 20 mg Thiamine HCl (Thiamine Hcl 100 Mg Tablet) 100 mg PO DAILY [facility] Last Admin: 04/14/22 08:08 Dose: 100 mg Topiramate (Topiramate 100 Mg Tablet) 100 mg PO DAILY [facility] Last Admin: 04/14/22 08:08 Dose: 100 mg Topiramate (Topiramate 100 Mg Tablet) 200 mg PO BEDTIME [facility] Last Admin: 04/13/22 19:53 Dose: 200 mg Allergies Allergies Allergy/AdvReac Type Severity Reaction Status Date / Time quetiapine [From SEROQUEL] Allergy Severe THROAT Verified 04/01/22 10:03 SWELLING azithromycin [AZITHROMYCIN] Allergy Unknown Unknown Verified 04/01/22 10:03 erythromycin base Allergy Unknown RASH Verified 05/22/21 18:18 [ERYTHROMYCIN BASE] olanzapine [From ZYPREXA] Allergy Unknown PEDAL EDEMA Verified 05/22/21 18:18 sulfacetamide Allergy Unknown Unknown Verified 05/22/21 18:18 [From Sulfacet-R] sulfamethoxazole Allergy Unknown ITCHING Verified 05/22/21 18:18 [From BACTRIM] sulfur [From Sulfacet-R] Allergy Unknown Unknown Verified 05/22/21 18:18 trimethoprim [From BACTRIM] Allergy Unknown ITCHING Verified 05/22/21 18:18 risperidone [From RISPERDAL] AdvReac Unknown TWITCHING Verified 04/01/22 10:03 seafood AdvReac Unknown Vomiting Verified 05/22/21 18:18 shellfish derived AdvReac Unknown VOMITING Verified 04/01/22 10:03 [SHELLFISH DERIVED] Assessment & Plan Assessment & Plan (1) Bipolar 1 disorder, depressed: Status: Acute Code(s): F31.9 - Bipolar disorder, unspecified (2) UTI (urinary tract infection): Status: Acute Code(s): N39.0 - Urinary tract infection, site not specified (3) Chronic post-traumatic stress disorder (PTSD): Status: Acute Code(s): F43.12 - Post-traumatic stress disorder, chronic (4) Opioid use disorder, moderate, in sustained remission, dependence: Status: Acute Code(s): F11.21 - Opioid dependence, in remission Plan 04/14/22- Continue medication changes in response to levels of sedation. I spent minutes with the patient and/or on the patient floor today, greater than?50% of which was spent counseling/coordinating care. Patient educated on: medication risk/benefits and therapeutic strategies Informed Consent: further education needed Reason for contiued inpatient stay Substantial Risk for: rapid decompensation
[2022-04-14] MEDS: Lithium Carbonate ER 450 MG TABLET.ER 900 MG PO (20:47)
[2022-04-14] MEDS: Topiramate 100 MG TABLET 200 MG PO (20:48)
[2022-04-15] MEDS: clonazePAM 0.5 MG TABLET PO ×2 (04:01→12:19)
[2022-04-15] MEDS: hydrOXYzine HCL 25 MG TABLET PO (04:01)
[2022-04-15] MEDS: Nicotine Polacrilex 2 MG GUM 4 MG BUCCAL ×3 (05:43→12:19)
[2022-04-15] MEDS: Propranolol HCL 20 MG TABLET PO (05:43)
[2022-04-15 06:40] VITALS: BP 105/62; PULSE 88; RESP 16; TEMP 36.4; O2SAT 96
[2022-04-15] MEDS: Loratadine 10 MG TABLET PO (08:21)
[2022-04-15] MEDS: Diclofenac Sodium Delayed Rel 50 MG TABLET.DR PO (08:21)
[2022-04-15] MEDS: Topiramate 100 MG TABLET PO (08:21)
[2022-04-15] MEDS: Aspirin 81 MG TAB.CHEW PO (08:21)
[2022-04-15] MEDS: Multivitamin TABLET 1 TAB PO (08:22)
[2022-04-15] MEDS: Cyclobenzaprine HCl 10 MG TABLET PO (08:22)
[2022-04-15] MEDS: Pregabalin 75 MG CAPSULE PO (08:22)
[2022-04-15] MEDS: methADONE HCl 20 MG/2 ML ORAL.CONC 135 MG PO (08:22)
[2022-04-15] MEDS: Thiamine HCL 100 MG TABLET PO (08:22)
[2022-04-15] MEDS: busPIRone HCl 10 MG TABLET 20 MG PO (08:22)
[2022-04-15] MEDS: Ferrous Sulfate 324 MG TABLET.DR PO (08:22)
[2022-04-15] MEDS: Nicotine 21 MG PATCH.TD24 TRANSDERMA (08:36)
[2022-04-15] MEDS: Perphenazine 4 MG TABLET PO (08:36)
[2022-04-15] MEDS: Gabapentin 400 MG CAPSULE 800 MG PO (11:42)
--- NOTE | 2022-04-15 18:32 | PM.PSYDC ---
DS: Providers Provider Date of Service: 04/15/22 Date of admission: 03/29/22 11:33 Date of discharge: 04/15/22 Primary care physician: Cici Corey MD Admitting clinician: Deepak Aguilar Attending physician on admission: Deepak Aguilar Consults: 04/09/22 14:19 Addiction Medicine Routine Consulting Provider: Liset Brambila Reason for consultation: accepted to [facility], they want Methadone tapered so no SE, I have dec 140 Has provider been notified: No 04/10/22 12:44 Addiction Medicine Routine Consulting Provider: Liset Brambila Reason for consultation: methadone tapering-per Dr. Jimenez Has provider been notified: No Attending physician on discharge: Rohit Jimenez Discharging clinician: Neli Orantes DS: Diagnosis Discharge Diagnosis (1) Bipolar 1 disorder, depressed: Status: Acute (2) UTI (urinary tract infection): Status: Resolved (3) Chronic post-traumatic stress disorder (PTSD): Status: Acute (4) Opioid use disorder, moderate, in sustained remission, dependence: Status: Acute DS: Medications Discharge Medications Home Medications: Home Medications Medication Instructions Recorded Confirmed [facility] 1 tab PO DAILY 04/12/22 04/12/22 Previous Rx's Medication Instructions Recorded clonazepam 0.5 mg tablet (Klonopin) 0.5 mg PO TID #15 tabs 04/15/22 clotrimazole 1 % topical cream 1 appl topical BID #1 g 04/15/22 ferrous sulfate 324 mg (65 mg 324 mg PO DAILY #7 tabs 04/15/22 iron) tablet,delayed release gabapentin 800 mg tablet 800 mg PO TID #21 tabs 04/15/22 lithium carbonate 450 mg 900 mg PO BEDTIME #14 tabs 04/15/22 tablet,extended release loratadine 10 mg tablet 1 tab PO DAILY #7 tabs 04/15/22 methadone 10 mg/mL oral 135 mg (13.5 mL) PO DAILY #0 mL 04/15/22 concentrate (Methadose) [id number] 1 tab PO DAILY #7 tabs 04/15/22 fumarate 7.5 mg-folic acid 400 mcg tablet naloxone 4 mg/actuation nasal 4 mg intranasal Q2M PRN opioid 04/15/22 spray (Narcan) overdose #2 ea nicotine 21 mg/24 hr daily 21 mg transdermal DAILY PRN 04/15/22 transdermal patch nicotine cravings #7 ea propranolol 20 mg tablet 20 mg PO Q6H PRN anxiety #14 tabs 04/15/22 thiamine mononitrate (vit B1) 100 100 mg PO DAILY #7 tabs 04/15/22 mg tablet topiramate 100 mg tablet 100 mg PO DAILY #7 tabs 04/15/22 topiramate 200 mg tablet 200 mg PO BEDTIME #7 tabs 04/15/22 white petrolatum-mineral oil 1 appl topical BID #1 g 04/15/22 topical cream (Dermacerin topical cream) Mental Status Exam Mental Status Exam Patient Appearance: Appropriate Patient Orientation: Person, Place, Time and Situation Level of Consciousness: Alert Patient Behavior: Guarded, Talkative, Suspicious, Self Manipulative, Aggressive, Resistive to Care, Avoidant, Distractible, Good Eye Contact and Impulsive Mood Description: Labile Affect Description: Labile Patient Cognition Impaired: No Ability to Follow Directions: Good Speech Pattern: Spontaneous Speech Memory Description: Episodic Impaired Hallucinations: None Delusions: Not Present Thought Process: Distracted and Goal Oriented Thought Content: positive for Circumstantial and positive for Goal Oriented Depressive Symptoms: Increased Irritability Abnormal Motor Activity Signs and Symptoms: Aggression and Agitation Judgement: Good Data Data Completed and Pending Completed studies during hospitalization [Text1]: 04/14/22 04/14/22 04/14/22 10:19 10:19 10:19 WBC 4.5 L RBC 4.18 L Hgb 12.3 Hct 38.6 MCV 92.3 MCH 29.4 MCHC 31.9 RDW 13.9 Plt Count 158 L D MPV 9.8 Immature Gran % (Auto) 0.2 Neut % (Auto) 41.0 L Lymph % (Auto) 43.5 H [place] % (Auto) 9.2 Eos % (Auto) 5.2 H Baso % (Auto) 0.9 Lymph # (Auto) 1.9 [place] # (Auto) 0.4 Eos # (Auto) 0.2 Baso # (Auto) 0.0 Abs Immat Gran (auto) 0.01 Absolute Neuts (auto) 1.8 L Absolute Nucleated RBC 0.000 Nucleated RBC % (auto) 0.0 Sodium 137 Potassium 4.1 Chloride 110 H Carbon Dioxide 21 L Anion Gap 10 L BUN 17 H Creatinine 0.86 Estim Creat Clear Calc 94.7 Estimated GFR > 60 Random Glucose 112 Calcium 8.8 Total Bilirubin 0.2 AST 56 H ALT 66 H Alkaline Phosphatase 77 Total Protein 7.1 Albumin 4.2 TSH 5.35 H [place] 0.88 03/28/22 15:48 Urine clean catch - Urine sheth top Urine Culture - Final Imaging Diagnostic Imaging Impressions Lumbar Spine X-Ray 04/01/22 15:01 IMPRESSION: Normal lumbar spine. Constipation. DS: Summary Hospital Course Hospital Course: Admitted to adult psychiatry for exacerbation of symptoms of polysubstance addiction, PTSD and Bipolar Disorder. Addictions Team and Dr. Jimenez were involved in medication management. Carlota presented with lability of mood, constant, persistant medication seeking behaviors including klonopin, valium, methadone, lyrica, gabapentin. Several adjustments were made as she experienced intermittent periods of daytime sedation. Carlota's focus was entirely on increasing medications. There were several behaviors which were addressed with her during the admission which she refused to acknowledge or work on. She was escalating the milieu, creating conflict with peers, threatening at times and unwilling to modulate her affect appropriately.She was abusive and caustic to peers and team. Methadone was decreased from 145mg to 135 mg. Klonopin, Gabapentin were decreased. Lyrica and Ambien were discontinued. Perphenazine was added to assist in grounding. Prior to admission, Carlota had worked with the [facility] post incarceration. All had planned an admission to [facility], however, there was no availability. [facility] agreed to accept Carlota, however, she refused. As a result, referral to [facility] was [facility] for [facility] . Time spent discussing smoking cessation with patient: 3 to 10 minutes Status at Discharge Functional status at discharge: independent ambulation Overall status at discharge: patient is back to baseline Time Spent with Patient Time attestation: Total time spent providing and/or coordinating discharge services: 35 Time spent: Greater than 30 minutes Discharge Plan Discharge Patient Disposition: Retirement Discharge Diagnosis: Bipolar Disorder PTSD Opiate Use Disorder Referrals: [facility] [Other] - Tomorrow (Referral to [facility] Patient should follow-up on referral following discharge from [facility] [Other] - Tomorrow (Referral to [facility] Patient should follow-up on referral following discharge from [facility] [Other[facility] ([facility] Appointment [place] Patient services transferred from [facility]) [facility] [Other] - 04/15/22 4:30 pm ([facility] Patient may follow-up with [facility] sight to access mental health services ) [facility] [Other] - Tomorrow (Referral made to [facility] for outpatient provider appointment for medication management services. Patient should follow-up with outpatient clinic to obtain appointment as it was not provided prior to her discharge from [facility] Office [Other] - Tomorrow (Patient should call [facility] following discharge from [facility] to aid in follow-up on referrals. ) Cici Corey MD [Primary Care Provider] - 04/24/22 10:15 am (IN OFFICE) Discharge Medications: New methadone [Methadose] 10 mg/mL Concentrate 135 mg PO DAILY Qty: 0 0RF Rx Instructions: Partial Fill upon patient request. Discontinued hydroxyzine pamoate 50 mg capsule 50 mg PO QID PRN (Reason: anxiety) gabapentin 800 mg tablet 800 mg PO TID aspirin 81 mg tablet,chewable 1 tab PO DAILY propranolol 20 mg tablet 20 mg PO Q6H PRN (Reason: anxiety) loratadine 10 mg tablet 1 tab PO DAILY diazepam 5 mg tablet 5 mg PO BID buspirone 10 mg tablet 20 mg PO TID topiramate 200 mg tablet 200 mg PO BEDTIME pregabalin 75 mg capsule 75 mg PO DAILY cyclobenzaprine 10 mg tablet 10 mg PO BID PRN (Reason: Muscle Spasm) diclofenac potassium 50 mg tablet 1 tab PO TID topiramate 100 mg tablet 100 mg PO DAILY [id number]-jtk-vztq fum-folic ac 7.5 mg iron-400 mcg tablet 1 tab PO DAILY methadone [Methadone Intensol] 10 mg/mL Concentrate 145 mg PO DAILY No Action nicotine (polacrilex) 2 mg Gum 4 mg buccal Q2H PRN (Reason: Nicotine Cravings) Qty: 30 0RF clonazepam 0.5 mg Tablet 0.5 mg PO BID Qty: 14 4RF propranolol 10 mg Tablet 10 mg PO BID Qty: 14 4RF Protocol: Hold for SBP/HR < HOLD for SBP < : 90 HOLD for HR < : 60 perphenazine 4 mg Tablet 4 mg PO BID Qty: 14 4RF gabapentin 300 mg Capsule 300 mg PO TID Qty: 21 4RF cyclobenzaprine 5 mg Tablet 5 mg PO BID Qty: 14 0RF nystatin 100,000 unit/gram Cream 1 appl topical BID Qty: 1 0RF Protocol: Apply to: Apply to: Groin rash lithium carbonate 450 mg Tablet Extended Release 900 mg PO BEDTIME Qty: 14 4RF nicotine 21 mg/24 hr Patch 24 Hour 21 mg transdermal DAILY PRN (Reason: nicotine cravings) Qty: 30 0RF topiramate 200 mg tablet 1 tab PO BEDTIME Qty: 14 1RF topiramate 100 mg tablet 1 tab PO DAILY Qty: 14 1RF clotrimazole 1 % cream 1 appl topical BID Qty: 1 0RF loratadine 10 mg tablet 1 tab PO DAILY Qty: 7 4RF Dermacerin Cream 1 appl TOPICAL BID Qty: 1 0RF thiamine mononitrate (vit B1) 100 mg Tablet 100 mg PO DAILY Qty: 30 0RF voywpxbt-gts-imsd fum-folic ac 7.5 mg iron-400 mcg tablet 1 tab PO DAILY Qty: 30 0RF ferrous sulfate 324 mg (65 mg iron) Tablet,Delayed Release (Dr/Ec) 324 mg PO DAILY Qty: 30 0RF naloxone [Narcan] 4 mg/actuation spray,non-aerosol 4 mg intranasal Q2M PRN (Reason: opioid overdose) Qty: 2 0RF Rx Instructions: spray 1 dose into ONE nostril; alternate nostrils w each dose until help arrives Discharge Orders: Discharge Order (Routine); Ordered 04/15/22 Ordered By: Neli Orantes Diet: Advance to usual diet Activity on Discharge: As tolerated Stand Alone Forms: Patient Portal Discharge page Care Plan Goals: Mood stabilization Work on Sobriety Health Concerns: Bipolar Disorder PTSD Opiate Dependence Polysubstance Abuse Plan of Treatment: Attend scheduled appointments Reconnect with AA/NA Practice coping skills Take medications as directed. Refills have been sent to [place], [place] Assessment: Non suicidal, non-psychotic Refuses [facility] referral Will follow up with [facility] Discharge Date/Time: 04/15/22 14:31
--- NOTE | 2022-04-16 09:22 | P.EN_ITS ---
Event Note Date of Service: 04/15/22 Event Note: Return call per request of pt's mother Meghan Brennan [phone]. Meghan reports pt has made several serverely cruel calls to her over her hospitalization, with guilt inspiring comments as family has been away on vacation, ignoring pt. Pt has been accusatory and Meghan has had to end a few of pt's calls. She also has heard some of pt's severe interactions with peers and staff, verbal abuse and inciting comments. Meghan reports pt has become severely harsh and cruel after incarceration. Family has learned to cope with her behaviors and her desparate attempts to obtain drugs, methadone, nicotine and casanova. They have observed her overmedicated states in the past and are satisfied with the weekly med refills we have sent. Family has warned pt that [place] is currently changing with increased danger and increased legal presence as is [place]. They hope pt chooses to return to [place], however, Meghan believes pt to have strong street skills and knows how to survive. She hopes pt will be welcome to return and asks that we consider section 7/8 if she returns and pos sibly guardianship and [facility] admission.
== END 2022-04-15 14:31 | disposition home or self-care (01) | DRG 753 ==
LOC: HO.ED 19:51 → HO.PM5 03-29 11:45
PROVIDERS: Nurse Practitioner Family; Admitting Provider Psychiatry & Neurology Psychiatry; Emergency Provider Internal Medicine; PCP Internal Medicine; Visit Provider Clinical Nurse Specialist Psychiatric/Mental Health, Adult
DX: F31.30 Bipolar disorder, current episode depressed, mild or moderate severity, unspecified (principal); F11.20 Opioid dependence, uncomplicated; F17.210 Nicotine dependence, cigarettes, uncomplicated; N39.0 Urinary tract infection, site not specified; F43.12 Post-traumatic stress disorder, chronic; Z76.5 Malingerer [conscious simulation]; Z20.822 Contact with and (suspected) exposure to COVID-19; Z71.6 Tobacco abuse counseling; Z59.02 Unsheltered homelessness; Z91.013 Allergy to seafood; Z88.1 Allergy status to other antibiotic agents; Z88.2 Allergy status to sulfonamides; Z88.8 Allergy status to other drugs, medicaments and biological substances; Z79.899 Other long term (current) drug therapy
CPT/HCPCS: 36415; 72110; 80048; 80053; 80061; 80178; 80307; 81001; 82077; 82306; 82607; 82746; 83036; 83540; 84443; 84702; 85025; 86780; 87086; 87389; 87480; 87491; 87510; 87591; 87635; 87660; 93005; 99285

== ENCOUNTER 2022-04-17 23:05 | Inpatient (IN) | payer OTHER, SELFPAY ==
[2022-04-17 23:12] VITALS: BP 125/75; PULSE 90; RESP 16; TEMP 37.1; O2SAT 97; BMI 32.3
--- NOTE | 2022-04-17 23:24 | ED.PSYCH ---
HPI - Psych General Chief Complaint: ETOH/Substance Use Stated Complaint: drug use Time Seen by Provider: 04/17/22 23:11 Source: patient Mode of arrival: ambulatory Limitations: no limitations History of Present Illness HPI Narrative: 42-year-old female who presents emergency department for evaluation of suicidal ideation. The patient states that she was recently hospitalized on the psychiatric service but was asked to leave secondary to a disagreement that she had with other patients on the sofa unit. She states that since leaving the hospital she has been homeless. She states she has been off all of her medications including her methadone. She states she has been very depressed and is feeling suicidal. She does admit to using fentanyl and cocaine. She states that she does not get help she is going to overdose on narcotics when she gets her SSI money. She also is complaining of rash in her groin area. She also believes that she has bugs on her body that are biting her stinging her. complaint: suicidal ideation Onset (ago): day(s) (3) Duration: constant History of same: Yes Relieving factors: none Exacerbating factors: other (Not taking her psychiatric medication) Context: recent drug abuse Associated psychiatric symptoms: depression and suicidal ideation Associated symptoms: denies other symptoms Treatments prior to arrival: none If self harm: admits thoughts of self harm Related Data Home Medications Medication Instructions Recorded Confirmed clonazepam 0.5 mg tablet 1 tab PO TID 04/17/22 04/17/22 clotrimazole 1 % topical cream 1 appl topical BID 04/17/22 04/17/22 ferrous sulfate 324 mg (65 mg 324 mg PO DAILY 04/17/22 04/18/22 iron) tablet,delayed release gabapentin 800 mg tablet 1 tab PO TID 04/17/22 04/17/22 lithium carbonate 450 mg 900 mg PO BEDTIME 04/17/22 04/17/22 tablet,extended release loratadine 10 mg tablet 1 tab PO DAILY 04/17/22 04/17/22 [id number]-pbqwemwz-[id number] 1 tab PO DAILY 04/17/22 04/17/22 fumarate 7.5 mg-folic acid 400 mcg tablet propranolol 20 mg tablet 1 tab PO Q6H PRN Anxiety 04/17/22 04/17/22 thiamine mononitrate (vit B1) 100 100 mg PO DAILY 04/17/22 04/17/22 mg tablet topiramate 100 mg tablet 1 tab PO DAILY 04/17/22 04/17/22 topiramate 200 mg tablet 1 tab PO BEDTIME 04/17/22 04/17/22 white petrolatum-mineral oil 1 appl topical BID 04/18/22 04/18/22 topical cream (Dermacerin topical cream) Previous Rx's Medication Instructions Recorded methadone 10 mg/mL oral 135 mg (13.5 mL) PO DAILY #0 mL 04/15/22 concentrate (Methadose) nicotine 21 mg/24 hr daily 21 mg transdermal DAILY PRN 04/15/22 transdermal patch nicotine cravings #7 ea Allergies Allergy/AdvReac Type Severity Reaction Status Date / Time quetiapine [From SEROQUEL] Allergy Severe THROAT Verified 04/01/22 10:03 SWELLING azithromycin [AZITHROMYCIN] Allergy Unknown Unknown Verified 04/01/22 10:03 erythromycin base Allergy Unknown RASH Verified 05/22/21 18:18 [ERYTHROMYCIN BASE] olanzapine [From ZYPREXA] Allergy Unknown PEDAL EDEMA Verified 05/22/21 18:18 sulfacetamide Allergy Unknown Unknown Verified 05/22/21 18:18 [From Sulfacet-R] sulfamethoxazole Allergy Unknown ITCHING Verified 05/22/21 18:18 [From BACTRIM] sulfur [From Sulfacet-R] Allergy Unknown Unknown Verified 05/22/21 18:18 trimethoprim [From BACTRIM] Allergy Unknown ITCHING Verified 05/22/21 18:18 risperidone [From RISPERDAL] AdvReac Unknown TWITCHING Verified 04/01/22 10:03 seafood AdvReac Unknown Vomiting Verified 05/22/21 18:18 shellfish derived AdvReac Unknown VOMITING Verified 04/01/22 10:03 [SHELLFISH DERIVED] Review of Systems Review of Systems: Yes all other systems are reviewed and are negative PMFSH Past Medical History Medical History Chronic post-traumatic stress disorder (PTSD) Opioid dependence Opioid use disorder, moderate, in sustained remission, dependence Substance abuse Substance abuse Social History Social History Household Members: Other Housing: Homeless Housing Other:: patient states she is homeless Do you presently have visiting nurse or other home services: No Unable to assess alcohol history related to: Unknown Alcohol intake: current Alcohol intake frequency: does not drink Patient Tobacco Use Status: Current everyday Tobacco user Tobacco use type: Cigarette Cigarette Packs Per Day: 0.5 Cigarettes Per Day: 10.0 Years Smoked: 10 e-Cigarette/Vaping Use: Currently Using Second Hand Smoke Exposure: No Substance Use Type: Former Substance User Advance Directives: Yes Advance Directives on File: Yes Advance Directives Date on File: 12/28/20 service: No Current occupational status: disabled Sexual orientation: Straight/Heterosexual Physical Exam Vital Signs: Vital Signs: Last Vital Signs Temp 98.7 F 04/17/22 23:12 Pulse 90 04/17/22 23:12 Resp 16 04/18/22 08:02 BP 125/75 04/17/22 23:12 Pulse Ox 97 04/17/22 23:12 O2 Del Method 04/17/22 23:12 BMI result Body Mass Index 32.3 Const: Other: Awake, alert, female patient she is very tearful, she is upset, she believes that she is covered in bugs and that she is very dirty. HEENT: Head: Yes normal to inspection, Yes normocephalic and Yes atraumatic Ears: external ears normal General nose exam: Normal external nose present Face and sinus: Yes normal facial exam Mouth: Normal oral and palatal mucosa present Throat: Yes posterior oropharynx normal Eyes: General: appearance normal, both eyes and all related structures Pupils: Equal, round and reactive pupils present Neck: Neck: Yes normal visual inspection, Yes no lymphadenopathy, Yes trachea midline and Yes supple Chest: Chest palpation & inspection: normal inspection of the chest and normal palpation of entire chest wall Resp: Effort & Inspection: normal respiratory effort and able to speak in complete sentences Auscultation: clear to auscultation bilaterally Cardio: Rate: regular rate Rhythm: regular rhythm Heart sounds: S1 normal heart sound present, S2 normal heart sound present and no murmurs GI: Inspection: Yes normal to inspection Palpation (GI): Soft to palpation, nontender and no guarding Auscultation: normal bowel sounds : General: Yes no CVA tenderness Back/Spine/Pelvis: Back: no CVA tenderness Neuro: Cranial nerves: Yes CN's II-XII intact bilaterally and Yes Equal, round and reactive pupils present Cognition (Neuro): normal cognition Motor exam (neuro): 5/5 motor strength present throughout Extrem: Other: The patient does have soft tissue swelling of her hands and believe this is secondary to injecting in the area, there is no increased warmth or evidence of cellulitis. The patient does have an intertriginous erythematous rash in her groin area which could be secondary to a fungal infection. Psych: Appearance: grossly normal Speech and movement: Normal speech and movement present Affect: normal affect Attitude: cooperative Thought process: Normal thought process present Thought content: Normal thought content present Course Course Course Narrative: 42-year-old female who presents emergency department for evaluation of depression and suicidal ideation. Patient was recently hospitalized on our psychiatric service and was asked to leave 3 days prior secondary to disruptive behavior. Patient states that she has been homeless, she has been off her medications and she has been using injection drugs. The patient does have evidence of injecting into her hands bilaterally but I do not think that she has cellulitis this time. She also has an intertriginous fungal infection of groin area. Laboratory evaluation was ordered. [facility] consult was also requested. 0229: Patient was evaluated by [facility] in a work counselor who confirmed that the patient is suicidal and wants to overdose on fentanyl and cocaine. The counselor wants to re-evaluate the patient in the morning determine if she is still having SI thoughts. . 0815: Laboratory evaluation: COVID-19 was negative. Urine tox screen was positive for opiates, fentanyl, cocaine and benzodiazepines Start physician observation: The patient will be placed in physician observation. Patient's medications were reconciled and I did order these medications. I also ordered nystatin cream b.i.d. to the patient's groin area. Laboratory evaluation will also be checked on this patient when she is more cooperative. Patient's examination is unchanged from baseline initial exam. At the end of my shift, patient's care was turned over to my colleague, Dr. Sarita Aldana 0845: Patient was evaluated by [facility] not heart counselor. The counselor states that the patient reported SI and HI. Patient wants to be treated as an inpatient. Therefore the patient will be a voluntary bed search for inpatient treatment. MDM - Psych Lab Data Labs: Lab Results 04/17/22 04/18/22 04/18/22 Range/Units 23:35 07:23 07:23 Urine Color YELLOW Urine Appearance CLEAR Urine pH 6.0 (5.0-8.0) Ur Specific Weaver 1.015 (1.005-1.025) Urine Protein NEG (NEG-TRACE) MG/DL Urine Glucose (UA) NEG (NEG) MG/DL Urine Ketones 15 (NEG) MG/DL Urine Blood NEG (NEG) Urine Nitrite NEG (NEG) Ur Leukocyte Esterase 2+ H (NEG) Urine RBC 0 (0) /HPF Urine WBC 5-9 H (0-4) /HPF Ur Squamous Epith Cells 1+ /LPF Urine Bacteria 1+ /LPF Urine Test (NEGATIVE) Urine Opiates Screen POSITIVE H (Not Detect) Urine Fentanyl Screen POSITIVE H (Not Detect) Ur Barbiturates Screen Not Detected (Not Detect) Ur Phencyclidine Scrn Not Detected (Not Detect) Ur Amphetamines Screen Not Detected (Not Detect) U Benzodiazepines Scrn POSITIVE H (Not Detect) Urine Cocaine Screen POSITIVE H (Not Detect) U Marijuana (THC) Screen Not Detected (Not Detect) COVID-19 (ZACK) Negative (Negative) COVID-19 Clin Com See Note 04/18/22 Range/Units 07:23 Urine Color Urine Appearance Urine pH (5.0-8.0) Ur Specific Weaver (1.005-1.025) Urine Protein (NEG-TRACE) MG/DL Urine Glucose (UA) (NEG) MG/DL Urine Ketones (NEG) MG/DL Urine Blood (NEG) Urine Nitrite (NEG) Ur Leukocyte Esterase (NEG) Urine RBC (0) /HPF Urine WBC (0-4) /HPF Ur Squamous Epith Cells /LPF Urine Bacteria /LPF Urine Test NEGATIVE (NEGATIVE) Urine Opiates Screen (Not Detect) Urine Fentanyl Screen (Not Detect) Ur Barbiturates Screen (Not Detect) Ur Phencyclidine Scrn (Not Detect) Ur Amphetamines Screen (Not Detect) U Benzodiazepines Scrn (Not Detect) Urine Cocaine Screen (Not Detect) U Marijuana (THC) Screen (Not Detect) COVID-19 (ZACK) (Negative) COVID-19 Clin Com Discharge Plan Discharge Clinical Impression: Suicidal ideations, Homicidal ideation, Opiate use, Cocaine use Patient Disposition: Still a Patient Prescriptions: No Action nicotine 21 mg/24 hr Patch 24 Hour 21 mg transdermal DAILY PRN (Reason: nicotine cravings) Qty: 7 1RF methadone [Methadose] 10 mg/mL Concentrate 135 mg PO DAILY Qty: 0 0RF Rx Instructions: Partial Fill upon patient request. loratadine 10 mg tablet 1 tab PO DAILY slrbpspv-ddo-mjhu fum-folic ac 7.5 mg iron-400 mcg tablet 1 tab PO DAILY clonazepam 0.5 mg tablet 1 tab PO TID gabapentin 800 mg tablet 1 tab PO TID topiramate 200 mg tablet 1 tab PO BEDTIME propranolol 20 mg tablet 1 tab PO Q6H PRN (Reason: Anxiety) lithium carbonate 450 mg Tablet Extended Release 900 mg PO BEDTIME topiramate 100 mg tablet 1 tab PO DAILY clotrimazole 1 % cream 1 appl topical BID thiamine mononitrate (vit B1) 100 mg Tablet 100 mg PO DAILY ferrous sulfate 324 mg (65 mg iron) Tablet,Delayed Release (Dr/Ec) 324 mg PO DAILY Dermacerin Cream 1 appl TOPICAL BID
[2022-04-18 00:01] LABS: COVID-19 Test Negative (Negative); IDNOW Serial# 16C4AD1C
[2022-04-18 07:31] LABS: Appearance Urine CLEAR; Color Urine YELLOW; Glucose Urine UA NEG (NEG); Leukocyte Esterase Urine 2+ (NEG); Nitrite Urine NEG (NEG); Specific Gravity - Urine 1.015 (1.005-1.025); Urine Blood NEG (NEG); Urine Ketones 15 MG/DL (NEG); Urine Protein NEG (NEG-TRACE)
[2022-04-18 07:33] LABS: UPreg QC Valid YES; Urine Pregnancy NEGATIVE (NEGATIVE)
[2022-04-18 07:41] LABS: Bacteria Urine 1+ /LPF; RBC Urine 0 /HPF (0); Squamous Epithelial Cell Urine 1+ /LPF
[2022-04-18 07:54] LABS: Amphetamine Screen Urine Not Detected (Not Detect); Barbiturates, Urine Not Detected (Not Detect); Benzodiazepines Screen Urine POSITIVE (Not Detect); Cannabinoid Screen Urine Not Detected (Not Detect); Cocaine Screen Urine POSITIVE (Not Detect); Fentanyl, urine POSITIVE (Not Detect); Opiate Screen Urine POSITIVE (Not Detect); Phencyclidine Screen Urine Not Detected (Not Detect)
[2022-04-18 08:02] VITALS: RESP 16
--- NOTE | 2022-04-18 08:31 | PC.NURSE ---
a/o x 3 no sob/lowell noted skin pink warm dry speaks in full sentences. amb (i) gait steady. pt states +si at this time. amb (i) gait steady in the hallway. pt is taking at shower. bed linen changed. pt aware of plan of care.
[2022-04-18] MEDS: Topiramate 100 MG TABLET PO (08:39)
[2022-04-18] MEDS: Ferrous Sulfate 324 MG TABLET.DR PO (08:39)
[2022-04-18] MEDS: Multivitamin TABLET 1 TAB PO (08:39)
[2022-04-18] MEDS: Thiamine HCL 100 MG TABLET PO (08:39)
[2022-04-18] MEDS: clonazePAM 0.5 MG TABLET PO ×2 (08:40→14:25)
[2022-04-18] MEDS: Gabapentin 400 MG CAPSULE 800 MG PO ×2 (08:40→14:19)
[2022-04-18] MEDS: Loratadine 10 MG TABLET PO (08:40)
--- NOTE | 2022-04-18 09:06 | PC.NURSE ---
pt a/o x 3 no sob/lowell noted skin pink warm dry speaks in full sentences. pt seen by n pt, is now an inpatient bed search, pt states feeling depressed and +si. pt aware of plan of care.
--- NOTE | 2022-04-18 09:31 | PC.NURSE ---
Addendum entered by Amanda Carreon 04/18/22 09:32: SAYS SHE DOESN'T FEEL GOOD AND DOESN'T WANT TO MOVE OR BE TOUCHED. Original Note: PT REFUSED BLOOD WORK. ASKED IF WE CAN COME BACK LATER.
[2022-04-18] MEDS: methADONE HCl 20 MG/2 ML ORAL.CONC 135 MG PO (10:25)
[2022-04-18 10:28] LABS: MANUAL DIFF FLAG NO
[2022-04-18 10:44] LABS: Basophils Percent Auto 0.6 % (0-2); Eosinophils Absolute Auto 0.2 X10*3/uL (0.0-0.4); Eosinophils Percent Auto 3.4 % (0-4); Hematocrit 36.4 % (37.0-47.0); Hemoglobin 12.4 g/dl (12.0-16.0); Imm Gran Abs Auto 0.03 X10*3/uL (0.00-0.03); Imm Gran Pct Auto 0.6 % (0.0-0.4); Lymphocytes Absolute Auto 1.4 X10*3/uL (1.2-4.9); Mean Corpuscular HGB Conc 34.1 g/dl (31.0-35.0); Mean Corpuscular Hemoglobin 29.8 pg (27.0-33.0); Mean Corpuscular Volume 87.5 fL (80.0-98.0); Mean Platelet Volume 10.5 fL (9.4-12.3); Monocytes Absolute Auto 0.5 X10*3/uL (0.1-1.2); Monocytes Percent Auto 10.9 % (2-11); Neutrophils Absolute Auto 2.6 x10*3/uL (2.0-8.3); Neutrophils Percent Auto 55.5 % (45-73); Platelet Count 142 X10*3/uL (160-400); Red Blood Count 4.16 X10*6/uL (4.20-5.50); Red Cell Distribution Width 13.7 % (11.0-16.0); White Blood Count 4.8 X10*3/uL (4.8-10.8)
[2022-04-18 10:57] LABS: Alanine Aminotransferase 91 U/L (0-31); Alkaline Phosphatase 83 U/L (39-117); Anion Gap 14 (12-20); Aspartate Amino Transferase 98 U/L (5-31); Bilirubin Total 0.8 mg/dL (0.0-1.0); Blood Urea Nitrogen 13 mg/dL (9-16); Calcium 8.6 mg/dL (8.4-10.2); Carbon Dioxide 23 mmol/L (22-29); Chloride 105 mmol/L (96-108); Creatinine Clr Calc Pharmacy 113.1; Estimated Glomerular Filt Rate > 60; Glucose Random 111 mg/dL (60-115); Potassium 3.5 mmol/L (3.3-5.1); Sodium 138 mmol/L (135-145); Total Protein 6.8 g/dL (6.5-8.0)
[2022-04-18 11:27] LABS: Free T4 (Free Thyroxine) 0.82 ng/dL (0.71-1.85)
--- NOTE | 2022-04-18 14:02 | ECG_ITS ---
Test Reason : medical clearance Blood Pressure : / mmHG Vent. Rate : 074 BPM Atrial Rate : 074 BPM P-R Int : 168 ms QRS Dur : 084 ms QT Int : 436 ms P-R-T Axes : 067 008 063 degrees QTc Int : 483 ms Normal sinus rhythm cannot exclude Inferior infarct , age undetermined Nonspecific ST and T wave abnormality Abnormal ECG When compared with ECG of 29-MAR-2022 10:09, Inferior infarct is now Present Referred By: Sarita Aldana Electronically Signed By:LAMBERTO CARLIN
[2022-04-18 14:03] VITALS: BP 112/70; PULSE 75; RESP 16; TEMP 37.1; O2SAT 98
--- NOTE | 2022-04-18 14:03 | PC.NURSE ---
RN TO RN REPORT GIVEN MYA FRANKEL AWARE OF PLAN OF CARE FOR TRANSFER TO VIA W/C.
[2022-04-18] MEDS: Gabapentin 400 MG CAPSULE PO (14:20)
--- NOTE | 2022-04-18 16:33 | PC.ADMIT ---
Pt. is a 42 year old Yakut speaking female who arrived to from [facility] at 1530 and on a CV status. Pt. is COVID negative. Utox shows positive opiates, fentanyl, benzodiazepines, and cocaine. Pt. is known to and was recently discharged. Pt is not engaging much in admission assessment and wants to sleep. Pt. was assessed by [facility] on 04/17/22 and endorsing SI with intent to end her life, but not until Thursday when she gets her SSDI check so she can use it to buy Fentanyl to overdose on. When pt was in the ED she was reported having slurred speech and under the influence of Fentanyl and cocaine. Pt. has a hx of substance abuse, trauma, and PTSD. Provider placed orders and notified on admission. Pt. is on 15 min checks. Pt. has no SI/HI at this time and does not report AH/VH. Mood is stable, pt. is currently sleeping in bed. Pt is safe on the unit. Start treatment plan and monitor for safety.
[2022-04-18 16:35] VITALS: RESP 18
[2022-04-19] MEDS: Perphenazine 4 MG TABLET PO ×2 (09:53→19:54)
[2022-04-19] MEDS: clonazePAM 0.5 MG TABLET PO ×3 (09:53→17:42)
[2022-04-19] MEDS: Gabapentin 400 MG CAPSULE PO ×3 (09:53→19:54)
[2022-04-19] MEDS: Propranolol HCL 20 MG TABLET PO ×2 (09:53→19:54)
[2022-04-19] MEDS: Multivitamin TABLET 1 TAB PO (09:53)
[2022-04-19] MEDS: Thiamine HCL 100 MG TABLET PO (09:53)
[2022-04-19] MEDS: Ferrous Sulfate 324 MG TABLET.DR PO (09:54)
[2022-04-19] MEDS: Loratadine 10 MG TABLET PO (09:54)
[2022-04-19] MEDS: Topiramate 100 MG TABLET PO (09:54)
[2022-04-19] MEDS: methADONE HCl 20 MG/2 ML ORAL.CONC 135 MG PO (09:55)
[2022-04-19 10:20] VITALS: BP 133/71; PULSE 79; TEMP 37.2
[2022-04-19] MEDS: Acetaminophen 325 MG TABLET 650 MG PO ×2 (11:47→17:43)
[2022-04-19] MEDS: Magnesium Hydrox/Alum Hydrox 30 ML ORAL.SUSP PO (15:35)
[2022-04-19 17:48] LABS: Estimated Average Glucose 103 mg/dL; Hemoglobin A1c % 5.2 %
[2022-04-19 17:52] LABS: Cholesterol 95 mg/dL; HDL Cholesterol 36 mg/dL; LDL Cholesterol Calculated 51 mg/dl; Triglycerides 43 mg/dL
[2022-04-19 18:00] VITALS: BP 126/82; PULSE 109; RESP 16; TEMP 36.5; O2SAT 99
[2022-04-19 18:12] LABS: Free T4 (Free Thyroxine) 1.05 ng/dL (0.71-1.85); Thyroid Stimulating Hormone 6.25 uIU/mL (0.32-4.0)
[2022-04-19] MEDS: Nicotine Polacrilex 2 MG GUM 4 MG BUCCAL ×2 (18:33→20:27)
--- NOTE | 2022-04-19 19:23 | PC.NURSE ---
Pt alert and oriented self and place, VSS, Pt refused one time dose for LOPERAMIDE HCL 2mg saying she doesn't have diarrhea anymore
[2022-04-19] MEDS: Lithium Carbonate ER 450 MG TABLET.ER 900 MG PO (19:54)
[2022-04-19] MEDS: Topiramate 100 MG TABLET 200 MG PO (19:55)
[2022-04-19] MEDS: Bacitracin Oint 14 GM TUBE 1 APPL TOPICAL (19:56)
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
[2022-04-20] MEDS: methADONE HCl 20 MG/2 ML ORAL.CONC 135 MG PO (09:30)
[2022-04-20] MEDS: clonazePAM 0.5 MG TABLET PO ×3 (09:31→20:51)
[2022-04-20] MEDS: Thiamine HCL 100 MG TABLET PO (09:31)
[2022-04-20] MEDS: Multivitamin TABLET 1 TAB PO (09:31)
[2022-04-20] MEDS: Topiramate 100 MG TABLET PO (09:31)
[2022-04-20] MEDS: Gabapentin 400 MG CAPSULE PO ×3 (09:31→20:52)
[2022-04-20] MEDS: Ferrous Sulfate 324 MG TABLET.DR PO (09:31)
[2022-04-20] MEDS: Propranolol HCL 20 MG TABLET PO ×2 (09:31→20:51)
[2022-04-20] MEDS: Perphenazine 4 MG TABLET PO ×2 (09:31→20:52)
[2022-04-20] MEDS: Loratadine 10 MG TABLET PO (09:31)
[2022-04-20] MEDS: Bacitracin Oint 14 GM TUBE 1 APPL TOPICAL ×2 (09:35→20:53)
[2022-04-20 09:45] VITALS: BP 109/59; PULSE 74; TEMP 37.6
--- NOTE | 2022-04-20 10:17 | P.PNPSI_ITS ---
Subjective Subjective Reason For Visit: POLYSUBSTANCE USE DISORDER BIPOLAR DISORDER PTSD Diagnostics Vital Signs (24Hr): Vital Signs - 24 hr 04/19/22 10:20 04/19/22 18:00 Temperature 98.9 F 97.7 F Pulse Rate 79 109 H Respiratory Rate 16 Blood Pressure 133/71 126/82 Pulse Oximetry 99 Oxygen Delivery Method Room Air BMI result Body Mass Index 32.3 Labs Results: 04/18/22 10:23 04/18/22 10:23 Labs: Laboratory Results - last 48 hr 04/18/22 04/18/22 04/19/22 10:23 10:23 17:20 WBC 4.8 RBC 4.16 L Hgb 12.4 Hct 36.4 L MCV 87.5 MCH 29.8 MCHC 34.1 RDW 13.7 Plt Count 142 L MPV 10.5 Immature Gran % (Auto) 0.6 H Neut % (Auto) 55.5 Lymph % (Auto) 29.0 [place] % (Auto) 10.9 Eos % (Auto) 3.4 Baso % (Auto) 0.6 Lymph # (Auto) 1.4 [place] # (Auto) 0.5 Eos # (Auto) 0.2 Baso # (Auto) 0.0 Abs Immat Gran (auto) 0.03 Absolute Neuts (auto) 2.6 Absolute Nucleated RBC 0.000 Nucleated RBC % (auto) 0.0 Sodium 138 Potassium 3.5 Chloride 105 Carbon Dioxide 23 Anion Gap 14 BUN 13 Creatinine 0.72 Estim Creat Clear Calc 113.1 Estimated GFR > 60 Random Glucose 111 Estimat Average Glucose Hemoglobin A1c % Calcium 8.6 Magnesium 2.0 Total Bilirubin 0.8 AST 98 H ALT 91 H Alkaline Phosphatase 83 Total Protein 6.8 Albumin 4.0 Triglycerides 43 Cholesterol 95 LDL Cholesterol, Calc 51 HDL Cholesterol 36 D TSH 6.25 H Free T4 0.82 1.05 04/19/22 17:21 WBC RBC Hgb Hct MCV MCH MCHC RDW Plt Count MPV Immature Gran % (Auto) Neut % (Auto) Lymph % (Auto) [place] % (Auto) Eos % (Auto) Baso % (Auto) Lymph # (Auto) [place] # (Auto) Eos # (Auto) Baso # (Auto) Abs Immat Gran (auto) Absolute Neuts (auto) Absolute Nucleated RBC Nucleated RBC % (auto) Sodium Potassium Chloride Carbon Dioxide Anion Gap BUN Creatinine Estim Creat Clear Calc Estimated GFR Random Glucose Estimat Average Glucose 103 Hemoglobin A1c % 5.2 Calcium Magnesium Total Bilirubin AST ALT Alkaline Phosphatase Total Protein Albumin Triglycerides Cholesterol LDL Cholesterol, Calc HDL Cholesterol TSH Free T4 Medications Medications Current Medications Acetaminophen (Acetaminophen 325 Mg Tablet) 650 mg PO Q6H PRN PRN Reason: Headache/Pain Mild Scale (1-3) Last Admin: 04/19/22 17:43 Dose: 650 mg Al Hydroxide/Mg Hydroxide (Magnesium Hydrox/Alum Hydrox 30 Ml Oral.Susp) 30 ml PO Q6H PRN PRN Reason: Heartburn/Nausea Last Admin: 04/19/22 15:35 Dose: 30 ml Bacitracin (Bacitracin Oint 14 Gm Tube) 1 appl TOPICAL BID [facility] Last Admin: 04/20/22 09:35 Dose: 1 appl Clonazepam (Clonazepam 0.5 Mg Tablet) 0.5 mg PO TID [facility] Last Admin: 04/20/22 09:31 Dose: 0.5 mg Clotrimazole (Clotrimazole 1 % Cream 15 Gm Tube) 1 appl TOPICAL BID [facility]; Protocol Last Admin: 04/20/22 10:00 Dose: Not Given Ferrous Sulfate (Ferrous Sulfate 324 Mg Tablet.Dr) 324 mg PO DAILY@0800 [facility] Last Admin: 04/20/22 09:31 Dose: 324 mg Gabapentin (Gabapentin 400 Mg Capsule) 400 mg PO TID [facility] Last Admin: 04/20/22 09:31 Dose: 400 mg [place] Carbonate ([place] Carbonate Er 450 Mg Tablet.Er) 900 mg PO BEDTIME [facility] Last Admin: 04/19/22 19:54 Dose: 900 mg Loperamide HCl (Loperamide Hcl 2 Mg Capsule) 2 mg PO Q6H PRN PRN Reason: diarrhea Loratadine (Loratadine 10 Mg Tablet) 10 mg PO DAILY [facility] Last Admin: 04/20/22 09:31 Dose: 10 mg Magnesium Hydroxide (Milk Of Magnesia 30 Ml Oral.Susp) 30 ml PO DAILY PRN PRN Reason: Constipation Methadone HCl (Methadone Hcl 20 Mg/2 Ml Oral.Conc) 135 mg PO DAILY [facility] Last Admin: 04/20/22 09:30 Dose: 135 mg Multi-Ingred Cream/Lotion/Oil/Oint (Mineral Oil/Petrolatum,White 106 Gm Tube) 1 appl TOPICAL BID [facility]; Protocol Last Admin: 04/20/22 10:00 Dose: Not Given Multivitamins/Vitamin C (Multivitamin Tablet) 1 tab PO DAILY [facility] Last Admin: 04/20/22 09:31 Dose: 1 tab Nicotine (Nicotine 21 Mg Patch.Td24) 21 mg TRANSDERMA DAILY PRN PRN Reason: nicotine cravings Nicotine Polacrilex (Nicotine Polacrilex 2 Mg Gum) 4 mg BUCCAL Q2H PRN PRN Reason: Nicotine Cravings Last Admin: 04/19/22 20:27 Dose: 4 mg Nystatin (Nystatin Cream 15 Gm Tube) 1 appl TOPICAL BID [facility]; Protocol Stop: 05/02/22 08:59 Last Admin: 04/20/22 10:01 Dose: Not Given Perphenazine (Perphenazine 4 Mg Tablet) 4 mg PO BID [facility] Last Admin: 04/20/22 09:31 Dose: 4 mg Propranolol HCl (Propranolol Hcl 20 Mg Tablet) 20 mg PO BID [facility]; Protocol Last Admin: 04/20/22 09:31 Dose: 20 mg Thiamine HCl (Thiamine Hcl 100 Mg Tablet) 100 mg PO DAILY [facility] Last Admin: 04/20/22 09:31 Dose: 100 mg Topiramate (Topiramate 100 Mg Tablet) 100 mg PO DAILY [facility] Last Admin: 04/20/22 09:31 Dose: 100 mg Topiramate (Topiramate 100 Mg Tablet) 200 mg PO BEDTIME [facility] Last Admin: 04/19/22 19:55 Dose: 200 mg Trazodone HCl (Trazodone Hcl 50 Mg Tablet) 50 mg PO BEDTIME PRN PRN Reason: Insomnia Allergies Allergies Allergy/AdvReac Type Severity Reaction Status Date / Time quetiapine [From SEROQUEL] Allergy Severe THROAT Verified 04/01/22 10:03 SWELLING azithromycin [AZITHROMYCIN] Allergy Unknown Unknown Verified 04/01/22 10:03 erythromycin base Allergy Unknown RASH Verified 05/22/21 18:18 [ERYTHROMYCIN BASE] olanzapine [From ZYPREXA] Allergy Unknown PEDAL EDEMA Verified 05/22/21 18:18 sulfacetamide Allergy Unknown Unknown Verified 05/22/21 18:18 [From Sulfacet-R] sulfamethoxazole Allergy Unknown ITCHING Verified 05/22/21 18:18 [From BACTRIM] sulfur [From Sulfacet-R] Allergy Unknown Unknown Verified 05/22/21 18:18 trimethoprim [From BACTRIM] Allergy Unknown ITCHING Verified 05/22/21 18:18 risperidone [From RISPERDAL] AdvReac Unknown TWITCHING Verified 04/01/22 10:03 seafood AdvReac Unknown Vomiting Verified 05/22/21 18:18 shellfish derived AdvReac Unknown VOMITING Verified 04/01/22 10:03 [SHELLFISH DERIVED] Assessment & Plan I spent minutes with the patient and/or on the patient floor today, greater than?50% of which was spent counseling/coordinating care.
--- NOTE | 2022-04-20 10:18 | P.PNPSI_ITS ---
Subjective Subjective Date of Service: 04/20/22 Reason For Visit: POLYSUBSTANCE USE DISORDER BIPOLAR DISORDER PTSD Subjective Notes: [place] Warning and Conditional Voluntary Healthcare Proxy: No Guardianship: No Medical Problems Affecting Mental Status: No Interim History: Patient seen and discussed with team. Pt has remained in her room, isolative, asked for flexeril but this was declined. On methadone 135 mg. Patient evaluated today, however she did not respond to attempts to rouse her as she favored sleep to interview. In the milieu, patient is safe but sedated/ detoxing. Medication Compliance: Yes Side effects from medications: No Attending Groups: No Review of Systems Acute medical concerns: No Medical Review of Systems: unchanged Mental Status Exam Mental Status Exam Narrative: Unable to assess, pt is in hospital attire, overweight, unkempt and sleeping in bed. By hx, pt is inattentive, difficult to engage, easily overwhelmed and agitated, affect is labile, and thoughts are focused on getting high. Insight and judgment are limited/ poor due to insatiable substance using. Diagnostics Vital Signs (24Hr): Vital Signs - 24 hr 04/19/22 10:20 04/19/22 18:00 Temperature 98.9 F 97.7 F Pulse Rate 79 109 H Respiratory Rate 16 Blood Pressure 133/71 126/82 Pulse Oximetry 99 Oxygen Delivery Method Room Air BMI result Body Mass Index 32.3 Labs Results: 04/18/22 10:23 04/18/22 10:23 Labs: Laboratory Results - last 48 hr 04/18/22 04/18/22 04/19/22 10:23 10:23 17:20 WBC 4.8 RBC 4.16 L Hgb 12.4 Hct 36.4 L MCV 87.5 MCH 29.8 MCHC 34.1 RDW 13.7 Plt Count 142 L MPV 10.5 Immature Gran % (Auto) 0.6 H Neut % (Auto) 55.5 Lymph % (Auto) 29.0 [place] % (Auto) 10.9 Eos % (Auto) 3.4 Baso % (Auto) 0.6 Lymph # (Auto) 1.4 [place] # (Auto) 0.5 Eos # (Auto) 0.2 Baso # (Auto) 0.0 Abs Immat Gran (auto) 0.03 Absolute Neuts (auto) 2.6 Absolute Nucleated RBC 0.000 Nucleated RBC % (auto) 0.0 Sodium 138 Potassium 3.5 Chloride 105 Carbon Dioxide 23 Anion Gap 14 BUN 13 Creatinine 0.72 Estim Creat Clear Calc 113.1 Estimated GFR > 60 Random Glucose 111 Estimat Average Glucose Hemoglobin A1c % Calcium 8.6 Magnesium 2.0 Total Bilirubin 0.8 AST 98 H ALT 91 H Alkaline Phosphatase 83 Total Protein 6.8 Albumin 4.0 Triglycerides 43 Cholesterol 95 LDL Cholesterol, Calc 51 HDL Cholesterol 36 D TSH 6.25 H Free T4 0.82 1.05 04/19/22 17:21 WBC RBC Hgb Hct MCV MCH MCHC RDW Plt Count MPV Immature Gran % (Auto) Neut % (Auto) Lymph % (Auto) [place] % (Auto) Eos % (Auto) Baso % (Auto) Lymph # (Auto) [place] # (Auto) Eos # (Auto) Baso # (Auto) Abs Immat Gran (auto) Absolute Neuts (auto) Absolute Nucleated RBC Nucleated RBC % (auto) Sodium Potassium Chloride Carbon Dioxide Anion Gap BUN Creatinine Estim Creat Clear Calc Estimated GFR Random Glucose Estimat Average Glucose 103 Hemoglobin A1c % 5.2 Calcium Magnesium Total Bilirubin AST ALT Alkaline Phosphatase Total Protein Albumin Triglycerides Cholesterol LDL Cholesterol, Calc HDL Cholesterol TSH Free T4 Medications Medications Current Medications Acetaminophen (Acetaminophen 325 Mg Tablet) 650 mg PO Q6H PRN PRN Reason: Headache/Pain Mild Scale (1-3) Last Admin: 04/19/22 17:43 Dose: 650 mg Al Hydroxide/Mg Hydroxide (Magnesium Hydrox/Alum Hydrox 30 Ml Oral.Susp) 30 ml PO Q6H PRN PRN Reason: Heartburn/Nausea Last Admin: 04/19/22 15:35 Dose: 30 ml Bacitracin (Bacitracin Oint 14 Gm Tube) 1 appl TOPICAL BID [facility] Last Admin: 04/20/22 09:35 Dose: 1 appl Clonazepam (Clonazepam 0.5 Mg Tablet) 0.5 mg PO TID [facility] Last Admin: 04/20/22 09:31 Dose: 0.5 mg Clotrimazole (Clotrimazole 1 % Cream 15 Gm Tube) 1 appl TOPICAL BID [facility]; Protocol Last Admin: 04/20/22 10:00 Dose: Not Given Ferrous Sulfate (Ferrous Sulfate 324 Mg Tablet.) 324 mg PO DAILY@0800 [facility] Last Admin: 04/20/22 09:31 Dose: 324 mg Gabapentin (Gabapentin 400 Mg Capsule) 400 mg PO TID [facility] Last Admin: 04/20/22 09:31 Dose: 400 mg [place] Carbonate ([place] Carbonate Er 450 Mg Tablet.Er) 900 mg PO BEDTIME [facility] Last Admin: 04/19/22 19:54 Dose: 900 mg Loperamide HCl (Loperamide Hcl 2 Mg Capsule) 2 mg PO Q6H PRN PRN Reason: diarrhea Loratadine (Loratadine 10 Mg Tablet) 10 mg PO DAILY [facility] Last Admin: 04/20/22 09:31 Dose: 10 mg Magnesium Hydroxide (Milk Of Magnesia 30 Ml Oral.Susp) 30 ml PO DAILY PRN PRN Reason: Constipation Methadone HCl (Methadone Hcl 20 Mg/2 Ml Oral.Conc) 135 mg PO DAILY [facility] Last Admin: 04/20/22 09:30 Dose: 135 mg Multi-Ingred Cream/Lotion/Oil/Oint (Mineral Oil/Petrolatum,White 106 Gm Tube) 1 appl TOPICAL BID [facility]; Protocol Last Admin: 04/20/22 10:00 Dose: Not Given Multivitamins/Vitamin C (Multivitamin Tablet) 1 tab PO DAILY [facility] Last Admin: 04/20/22 09:31 Dose: 1 tab Nicotine (Nicotine 21 Mg Patch.Td24) 21 mg TRANSDERMA DAILY PRN PRN Reason: nicotine cravings Nicotine Polacrilex (Nicotine Polacrilex 2 Mg Gum) 4 mg BUCCAL Q2H PRN PRN Reason: Nicotine Cravings Last Admin: 04/19/22 20:27 Dose: 4 mg Nystatin (Nystatin Cream 15 Gm Tube) 1 appl TOPICAL BID [facility]; Protocol Stop: 05/02/22 08:59 Last Admin: 04/20/22 10:01 Dose: Not Given Perphenazine (Perphenazine 4 Mg Tablet) 4 mg PO BID [facility] Last Admin: 04/20/22 09:31 Dose: 4 mg Propranolol HCl (Propranolol Hcl 20 Mg Tablet) 20 mg PO BID [facility]; Protocol Last Admin: 04/20/22 09:31 Dose: 20 mg Thiamine HCl (Thiamine Hcl 100 Mg Tablet) 100 mg PO DAILY [facility] Last Admin: 04/20/22 09:31 Dose: 100 mg Topiramate (Topiramate 100 Mg Tablet) 100 mg PO DAILY [facility] Last Admin: 04/20/22 09:31 Dose: 100 mg Topiramate (Topiramate 100 Mg Tablet) 200 mg PO BEDTIME [facility] Last Admin: 04/19/22 19:55 Dose: 200 mg Trazodone HCl (Trazodone Hcl 50 Mg Tablet) 50 mg PO BEDTIME PRN PRN Reason: Insomnia Allergies Allergies Allergy/AdvReac Type Severity Reaction Status Date / Time quetiapine [From SEROQUEL] Allergy Severe THROAT Verified 04/01/22 10:03 SWELLING azithromycin [AZITHROMYCIN] Allergy Unknown Unknown Verified 04/01/22 10:03 erythromycin base Allergy Unknown RASH Verified 05/22/21 18:18 [ERYTHROMYCIN BASE] olanzapine [From ZYPREXA] Allergy Unknown PEDAL EDEMA Verified 05/22/21 18:18 sulfacetamide Allergy Unknown Unknown Verified 05/22/21 18:18 [From Sulfacet-R] sulfamethoxazole Allergy Unknown ITCHING Verified 05/22/21 18:18 [From BACTRIM] sulfur [From Sulfacet-R] Allergy Unknown Unknown Verified 05/22/21 18:18 trimethoprim [From BACTRIM] Allergy Unknown ITCHING Verified 05/22/21 18:18 risperidone [From RISPERDAL] AdvReac Unknown TWITCHING Verified 04/01/22 10:03 seafood AdvReac Unknown Vomiting Verified 05/22/21 18:18 shellfish derived AdvReac Unknown VOMITING Verified 04/01/22 10:03 [SHELLFISH DERIVED] Assessment & Plan Assessment & Plan (1) Opioid use disorder, moderate, in sustained remission, dependence: Status: Acute Code(s): F11.21 - Opioid dependence, in remission (2) Bipolar 1 disorder, depressed: Status: Acute Code(s): F31.9 - Bipolar disorder, unspecified (3) Chronic post-traumatic stress disorder (PTSD): Status: Acute Code(s): F43.12 - Post-traumatic stress disorder, chronic Plan Carlota is a 42 yo female with a hx of bipolar disorder, ptsd, and polysubstance abuse. Hx of TBI. She is on Methadone. Pt was recently discharged [facility] on [facility]/22 due to pt malingering, drug seeking, and not engaging in treatment.?Pt has continued to abuse illicit substances, currently homeless, non-adherent on medications?including her methadone.?Pt re-presented to [facility] on 04/17/22 due to feeling very depressed and endorsing SI with plan to OD on narcotics when she gets her SSI check.?Pt admitted to using fentanyl and cocaine.?Per [facility] crisis eval, pt using cocaine via insufflation and IV, used 4-5 bundles of heroin IV. Ethyl alcohol negative. Plan: Pts medications have been decreased due to polypharm on multiple [employer] depressants, during previous admission pt was nodding off after obtaining many of her PRNs in demanding manner from staff attorney. Flexeril discontinued. During this admission- Per staff attorney, pt is complaining of a rash in her groin area, will place wound consult.? Q15 min safety checks, CV Monitor response to medications. Monitor for safety in the milieu. Discharge on stabilization. Patient seen. Chart reviewed. Discussed with team. Obtain collateral contact info?as needed I spent minutes with the patient and/or on the patient floor today, greater than?50% of which was spent counseling/coordinating care. Patient educated on: other Reason for contiued inpatient stay Substantial Risk for: inability to function, rapid decompensation and med/psych decompensation
[2022-04-20] MEDS: Acetaminophen 325 MG TABLET 650 MG PO (12:01)
[2022-04-20 13:00] VITALS: TEMP 37.3
[2022-04-20 18:00] VITALS: BP 116/69; PULSE 69; RESP 18; TEMP 36.4; O2SAT 100
[2022-04-20] MEDS: Lithium Carbonate ER 450 MG TABLET.ER 900 MG PO (20:51)
[2022-04-20] MEDS: Nystatin Cream 15 GM TUBE 1 APPL TOPICAL (20:53)
[2022-04-20] MEDS: Mineral Oil/Petrolatum,White 106 GM Tube 1 APPL TOPICAL (22:32)
[2022-04-20] MEDS: Clotrimazole 1 % Cream 15 GM TUBE 1 APPL TOPICAL (22:32)
[2022-04-20] MEDS: Topiramate 100 MG TABLET 200 MG PO (22:32)
[2022-04-21] MEDS: Acetaminophen 325 MG TABLET 650 MG PO (05:53)
[2022-04-21 05:57] VITALS: BP 108/60; PULSE 71; RESP 18; TEMP 36.3; O2SAT 97
[2022-04-21 06:32] LABS: Folate > 20.0 ng/mL (> or = 4.0); Vitamin B12 747 pg/mL (200-900)
[2022-04-21] MEDS: Ferrous Sulfate 324 MG TABLET.DR PO (08:29)
[2022-04-21] MEDS: Propranolol HCL 20 MG TABLET PO ×2 (08:29→23:20)
[2022-04-21] MEDS: Loratadine 10 MG TABLET PO (08:30)
[2022-04-21] MEDS: Thiamine HCL 100 MG TABLET PO (08:30)
[2022-04-21] MEDS: Topiramate 100 MG TABLET PO (08:30)
[2022-04-21] MEDS: Multivitamin TABLET 1 TAB PO (08:30)
[2022-04-21] MEDS: methADONE HCl 20 MG/2 ML ORAL.CONC 135 MG PO (08:30)
[2022-04-21] MEDS: Gabapentin 400 MG CAPSULE PO ×3 (08:30→23:19)
[2022-04-21] MEDS: Perphenazine 4 MG TABLET PO ×2 (08:30→23:19)
[2022-04-21] MEDS: clonazePAM 0.5 MG TABLET PO ×2 (08:30→23:21)
[2022-04-21 08:31] VITALS: BP 126/73; PULSE 61; RESP 16; TEMP 37.2; O2SAT 98
--- NOTE | 2022-04-21 16:39 | P.PNPSI_ITS ---
Subjective Subjective Date of Service: 04/21/22 Reason For Visit: POLYSUBSTANCE USE DISORDER BIPOLAR DISORDER PTSD Subjective Notes: Conditional Voluntary Healthcare Proxy: No Guardianship: No Medical Problems Affecting Mental Status: No Interim History: Spending much time in bed with reports of body aches. Reports medications need to increase, however, we are working to decrease sedation so pt may participate in milieu programming. Pt still has interest in attending [facility] in [place]-discussed with pt preparing to transfer and preparing herself to fully participate. Medication Compliance: Yes Side effects from medications: Yes (sedation, doses are being adjusted to minimize this) Attending Groups: Intermittent Review of Systems Acute medical concerns: No Medical Review of Systems: unchanged Review of Systems Psychiatric: Reports other (regressed today) Mental Status Exam Mental Status Exam Patient Appearance: Fatigued Patient Orientation: Person, Place, Time and Situation Level of Consciousness: Sedated and Alert Patient Behavior: Dependent, Talkative, Fatigued and Distractible Mood Description: Withdrawn Affect Description: Withdrawn Patient Cognition Impaired: No Ability to Follow Directions: Fair Speech Pattern: Perseverating and Spontaneous Speech (child-like in tone at times) Memory Description: Episodic Impaired Hallucinations: None Delusions: Not Present Perceptual Disturbances: Depersonalization Thought Process: Distracted and Slowed Thinking Thought Content: positive for [place], positive for Circumstantial and positive for Slowed Thinking Depressive Symptoms: Sleeping More Than Usual Abnormal Motor Activity Signs and Symptoms: Restlessness Judgement: Fair Diagnostics Vital Signs (24Hr): Vital Signs - 24 hr 04/20/22 18:00 04/21/22 05:57 04/21/22 08:31 Temperature 97.6 F 97.3 F 98.9 F Pulse Rate 69 71 61 Respiratory Rate 18 18 16 Blood Pressure 116/69 108/60 126/73 Pulse Oximetry 100 97 98 Oxygen Delivery Method Room Air Room Air Room Air BMI result Body Mass Index 32.3 Labs Results: 04/18/22 10:23 04/18/22 10:23 Labs: Laboratory Results - last 48 hr 04/19/22 04/19/22 04/19/22 17:20 17:21 17:21 Estimat Average Glucose 103 Hemoglobin A1c % 5.2 Magnesium 2.0 Triglycerides 43 Cholesterol 95 LDL Cholesterol, Calc 51 HDL Cholesterol 36 D Vitamin B12 747 Folate > 20.0 TSH 6.25 H Free T4 1.05 Medications Medications Current Medications Acetaminophen (Acetaminophen 325 Mg Tablet) 650 mg PO Q6H PRN PRN Reason: Headache/Pain Mild Scale (1-3) Last Admin: 04/21/22 05:53 Dose: 650 mg Al Hydroxide/Mg Hydroxide (Magnesium Hydrox/Alum Hydrox 30 Ml Oral.Susp) 30 ml PO Q6H PRN PRN Reason: Heartburn/Nausea Last Admin: 04/19/22 15:35 Dose: 30 ml Bacitracin (Bacitracin Oint 14 Gm Tube) 1 appl TOPICAL BID [facility] Last Admin: 04/21/22 08:59 Dose: Not Given Clonazepam (Clonazepam 0.5 Mg Tablet) 0.5 mg PO TID [facility] Last Admin: 04/21/22 14:25 Dose: Not Given Clotrimazole (Clotrimazole 1 % Cream 15 Gm Tube) 1 appl TOPICAL BID [facility]; Protocol Last Admin: 04/21/22 09:00 Dose: Not Given Ferrous Sulfate (Ferrous Sulfate 324 Mg Tablet.Dr) 324 mg PO DAILY@0800 [facility] Last Admin: 04/21/22 08:29 Dose: 324 mg Gabapentin (Gabapentin 400 Mg Capsule) 400 mg PO TID [facility] Last Admin: 04/21/22 14:25 Dose: 400 mg [place] Carbonate ([place] Carbonate Er 450 Mg Tablet.Er) 900 mg PO BEDTIME [facility] Last Admin: 04/20/22 20:51 Dose: 900 mg Loperamide HCl (Loperamide Hcl 2 Mg Capsule) 2 mg PO Q6H PRN PRN Reason: diarrhea Loratadine (Loratadine 10 Mg Tablet) 10 mg PO DAILY [facility] Last Admin: 04/21/22 08:30 Dose: 10 mg Magnesium Hydroxide (Milk Of Magnesia 30 Ml Oral.Susp) 30 ml PO DAILY PRN PRN Reason: Constipation Methadone HCl (Methadone Hcl 20 Mg/2 Ml Oral.Conc) 135 mg PO DAILY [facility] Last Admin: 04/21/22 08:30 Dose: 135 mg Multi-Ingred Cream/Lotion/Oil/Oint (Mineral Oil/Petrolatum,White 106 Gm Tube) 1 appl TOPICAL BID [facility]; Protocol Last Admin: 04/21/22 09:00 Dose: Not Given Multivitamins/Vitamin C (Multivitamin Tablet) 1 tab PO DAILY [facility] Last Admin: 04/21/22 08:30 Dose: 1 tab Nicotine (Nicotine 21 Mg Patch.Td24) 21 mg TRANSDERMA DAILY PRN PRN Reason: nicotine cravings Nicotine Polacrilex (Nicotine Polacrilex 2 Mg Gum) 4 mg BUCCAL Q2H PRN PRN Reason: Nicotine Cravings Last Admin: 04/19/22 20:27 Dose: 4 mg Nystatin (Nystatin Cream 15 Gm Tube) 1 appl TOPICAL BID [facility]; Protocol Stop: 05/02/22 08:59 Last Admin: 04/21/22 09:00 Dose: Not Given Perphenazine (Perphenazine 4 Mg Tablet) 4 mg PO BID [facility] Last Admin: 04/21/22 08:30 Dose: 4 mg Propranolol HCl (Propranolol Hcl 20 Mg Tablet) 20 mg PO BID [facility]; Protocol Last Admin: 04/21/22 08:29 Dose: 20 mg Thiamine HCl (Thiamine Hcl 100 Mg Tablet) 100 mg PO DAILY [facility] Last Admin: 04/21/22 08:30 Dose: 100 mg Topiramate (Topiramate 100 Mg Tablet) 100 mg PO DAILY [facility] Last Admin: 04/21/22 08:30 Dose: 100 mg Topiramate (Topiramate 100 Mg Tablet) 200 mg PO BEDTIME [facility] Last Admin: 04/20/22 22:32 Dose: 200 mg Trazodone HCl (Trazodone Hcl 50 Mg Tablet) 50 mg PO BEDTIME PRN PRN Reason: Insomnia Allergies Allergies Allergy/AdvReac Type Severity Reaction Status Date / Time quetiapine [From SEROQUEL] Allergy Severe THROAT Verified 04/01/22 10:03 SWELLING azithromycin [AZITHROMYCIN] Allergy Unknown Unknown Verified 04/01/22 10:03 erythromycin base Allergy Unknown RASH Verified 05/22/21 18:18 [ERYTHROMYCIN BASE] olanzapine [From ZYPREXA] Allergy Unknown PEDAL EDEMA Verified 05/22/21 18:18 sulfacetamide Allergy Unknown Unknown Verified 05/22/21 18:18 [From Sulfacet-R] sulfamethoxazole Allergy Unknown ITCHING Verified 05/22/21 18:18 [From BACTRIM] sulfur [From Sulfacet-R] Allergy Unknown Unknown Verified 05/22/21 18:18 trimethoprim [From BACTRIM] Allergy Unknown ITCHING Verified 05/22/21 18:18 risperidone [From RISPERDAL] AdvReac Unknown TWITCHING Verified 04/01/22 10:03 seafood AdvReac Unknown Vomiting Verified 05/22/21 18:18 shellfish derived AdvReac Unknown VOMITING Verified 04/01/22 10:03 [SHELLFISH DERIVED] Assessment & Plan Assessment & Plan (1) Opioid use disorder, moderate, in sustained remission, dependence: Status: Acute Code(s): F11.21 - Opioid dependence, in remission (2) Bipolar 1 disorder, depressed: Status: Acute Code(s): F31.9 - Bipolar disorder, unspecified (3) Chronic post-traumatic stress disorder (PTSD): Status: Acute Code(s): F43.12 - Post-traumatic stress disorder, chronic Plan Carlota is a 42 yo female with a hx of bipolar disorder, ptsd, and polysubstance abuse. Hx of TBI. She is on Methadone. Pt was recently discharged from [facility] on 04/15/22 due to pt malingering, drug seeking, and not engaging in treatment.?Pt has continued to abuse illicit substances, currently homeless, non-adherent on medications?including her methadone.?Pt re-presented to [facility] on 04/17/22 due to feeling very depressed and endorsing SI with plan to OD on narcotics when she gets her SSI check.?Pt admitted to using fentanyl and cocaine.?Per [facility] crisis eval, pt using cocaine via insufflation and IV, used 4-5 bundles of heroin IV. Ethyl alcohol negative. Plan: Pts medications have been decreased due to polypharm on multiple C[employer] THERAPIST depressants, during previous admission pt was nodding off after obtaining many of her PRNs in demanding manner from greenhouse staff. Flexeril discontinued. During thi s admission- Per greenhouse staff, pt is complaining of a rash in her groin area, will place wound consult.? Q15 min safety checks, CV Monitor response to medications. Monitor for safety in the milieu. Discharge on stabilization. Patient seen. Chart reviewed. Discussed with team. Obtain collateral contact info?as needed 04/21/22 Continue to monitor and adjust medications based on mental status. I spent minutes with the patient and/or on the patient floor today, greater than?50% of which was spent counseling/coordinating care. Patient educated on: therapeutic strategies Informed Consent: further education needed Reason for contiued inpatient stay Substantial Risk for: inability to function and rapid decompensation
[2022-04-21 23:15] VITALS: BP 105/59; PULSE 61; TEMP 36.6
[2022-04-21] MEDS: Lithium Carbonate ER 450 MG TABLET.ER 900 MG PO (23:18)
[2022-04-21] MEDS: Topiramate 100 MG TABLET 200 MG PO (23:19)
[2022-04-22] MEDS: Nicotine Polacrilex 2 MG GUM 4 MG BUCCAL ×2 (05:51→22:30)
[2022-04-22 08:30] VITALS: BP 116/78; PULSE 70; RESP 16; TEMP 36.3; O2SAT 99
[2022-04-22] MEDS: Ferrous Sulfate 324 MG TABLET.DR PO (08:40)
[2022-04-22] MEDS: methADONE HCl 20 MG/2 ML ORAL.CONC 135 MG PO (08:40)
[2022-04-22] MEDS: clonazePAM 0.5 MG TABLET PO ×2 (08:40→22:23)
[2022-04-22] MEDS: Loratadine 10 MG TABLET PO (08:41)
[2022-04-22] MEDS: Propranolol HCL 20 MG TABLET PO (08:41)
[2022-04-22] MEDS: Perphenazine 4 MG TABLET PO ×2 (08:41→22:23)
[2022-04-22] MEDS: Topiramate 100 MG TABLET PO (08:41)
[2022-04-22] MEDS: Thiamine HCL 100 MG TABLET PO (08:42)
[2022-04-22] MEDS: Multivitamin TABLET 1 TAB PO (08:42)
[2022-04-22] MEDS: Gabapentin 400 MG CAPSULE PO (08:42)
[2022-04-22] MEDS: Mineral Oil/Petrolatum,White 106 GM Tube 1 APPL TOPICAL (08:44)
[2022-04-22] MEDS: Gabapentin 300 MG CAPSULE PO ×2 (15:53→22:24)
--- NOTE | 2022-04-22 16:58 | HO.PSYCHPN ---
Subjective Subjective Date of Service: 04/22/22 Reason For Visit: POLYSUBSTANCE USE DISORDER BIPOLAR DISORDER PTSD Subjective Notes: Conditional Voluntary Healthcare Proxy: No Guardianship: No Medical Problems Affecting Mental Status: No Interim History: Intermittent sedation. Continue to adjust medication dosages. Pt accepted to [facility] for 04/24. She is pleased with this plan. Medication Compliance: Yes Side effects from medications: Yes (sedation) Attending Groups: Intermittent Review of Systems Acute medical concerns: No Medical Review of Systems: unchanged Review of Systems Psychiatric: Reports anxiety and Reports anhedonia Mental Status Exam Mental Status Exam Patient Appearance: Fatigued Patient Orientation: Person, Place, Time and Situation Level of Consciousness: Sedated and Alert Patient Behavior: Dependent, Talkative, Fatigued and Distractible Mood Description: Withdrawn Affect Description: Withdrawn Patient Cognition Impaired: No Ability to Follow Directions: Fair Speech Pattern: Perseverating and Spontaneous Speech (child-like in tone at times) Memory Description: Episodic Impaired Hallucinations: None Delusions: Not Present Perceptual Disturbances: Depersonalization Thought Process: Distracted and Slowed Thinking Thought Content: positive for [place], positive for Circumstantial and positive for Slowed Thinking Depressive Symptoms: Sleeping More Than Usual Abnormal Motor Activity Signs and Symptoms: Restlessness Judgement: Fair Diagnostics Vital Signs (24Hr): Vital Signs - 24 hr 04/21/22 23:15 04/22/22 08:30 Temperature 98 F 97.4 F Pulse Rate 61 70 Respiratory Rate 16 Blood Pressure 105/59 L 116/78 Pulse Oximetry 99 Oxygen Delivery Method Room Air BMI result Body Mass Index 32.3 Labs Results: 04/18/22 10:23 04/18/22 10:23 Labs: Laboratory Results - last 48 hr 04/19/22 17:21 Vitamin B12 747 Folate > 20.0 Medications Medications Current Medications Acetaminophen (Acetaminophen 325 Mg Tablet) 650 mg PO Q6H PRN PRN Reason: Headache/Pain Mild Scale (1-3) Last Admin: 04/21/22 05:53 Dose: 650 mg Al Hydroxide/Mg Hydroxide (Magnesium Hydrox/Alum Hydrox 30 Ml Oral.Susp) 30 ml PO Q6H PRN PRN Reason: Heartburn/Nausea Last Admin: 04/19/22 15:35 Dose: 30 ml Bacitracin (Bacitracin Oint 14 Gm Tube) 1 appl TOPICAL BID [facility] Last Admin: 04/22/22 08:45 Dose: Not Given Clonazepam (Clonazepam 0.5 Mg Tablet) 0.5 mg PO BID [facility] Clotrimazole (Clotrimazole 1 % Cream 15 Gm Tube) 1 appl TOPICAL BID [facility]; Protocol Last Admin: 04/22/22 08:45 Dose: Not Given Ferrous Sulfate (Ferrous Sulfate 324 Mg Tablet.Dr) 324 mg PO DAILY@0800 [facility] Last Admin: 04/22/22 08:40 Dose: 324 mg Gabapentin (Gabapentin 300 Mg Capsule) 300 mg PO TID [facility] Last Admin: 04/22/22 15:53 Dose: 300 mg [place] Carbonate ([place] Carbonate Er 450 Mg Tablet.Er) 900 mg PO BEDTIME [facility] Last Admin: 04/21/22 23:18 Dose: 900 mg Loperamide HCl (Loperamide Hcl 2 Mg Capsule) 2 mg PO Q6H PRN PRN Reason: diarrhea Loratadine (Loratadine 10 Mg Tablet) 10 mg PO DAILY [facility] Last Admin: 04/22/22 08:41 Dose: 10 mg Magnesium Hydroxide (Milk Of Magnesia 30 Ml Oral.Susp) 30 ml PO DAILY PRN PRN Reason: Constipation Methadone HCl (Methadone Hcl 20 Mg/2 Ml Oral.Conc) 135 mg PO DAILY [facility] Last Admin: 04/22/22 08:40 Dose: 135 mg Multi-Ingred Cream/Lotion/Oil/Oint (Mineral Oil/Petrolatum,White 106 Gm Tube) 1 appl TOPICAL BID [facility]; Protocol Last Admin: 04/22/22 08:44 Dose: 1 appl Multivitamins/Vitamin C (Multivitamin Tablet) 1 tab PO DAILY [facility] Last Admin: 04/22/22 08:42 Dose: 1 tab Nicotine (Nicotine 21 Mg Patch.Td24) 21 mg TRANSDERMA DAILY PRN PRN Reason: nicotine cravings Nicotine Polacrilex (Nicotine Polacrilex 2 Mg Gum) 4 mg BUCCAL Q2H PRN PRN Reason: Nicotine Cravings Last Admin: 04/22/22 05:51 Dose: 4 mg Nystatin (Nystatin Cream 15 Gm Tube) 1 appl TOPICAL BID [facility]; Protocol Stop: 05/02/22 08:59 Last Admin: 04/22/22 08:45 Dose: Not Given Perphenazine (Perphenazine 4 Mg Tablet) 4 mg PO BID [facility] Last Admin: 04/22/22 08:41 Dose: 4 mg Propranolol HCl (Propranolol Hcl 10 Mg Tablet) 10 mg PO BID [facility]; Protocol Thiamine HCl (Thiamine Hcl 100 Mg Tablet) 100 mg PO DAILY [facility] Last Admin: 04/22/22 08:42 Dose: 100 mg Topiramate (Topiramate 100 Mg Tablet) 100 mg PO DAILY [facility] Last Admin: 04/22/22 08:41 Dose: 100 mg Topiramate (Topiramate 100 Mg Tablet) 200 mg PO BEDTIME [facility] Last Admin: 04/21/22 23:19 Dose: 200 mg Trazodone HCl (Trazodone Hcl 50 Mg Tablet) 50 mg PO BEDTIME PRN PRN Reason: Insomnia Allergies Allergies Allergy/AdvReac Type Severity Reaction Status Date / Time quetiapine [From SEROQUEL] Allergy Severe THROAT Verified 04/01/22 10:03 SWELLING azithromycin [AZITHROMYCIN] Allergy Unknown Unknown Verified 04/01/22 10:03 erythromycin base Allergy Unknown RASH Verified 05/22/21 18:18 [ERYTHROMYCIN BASE] olanzapine [From ZYPREXA] Allergy Unknown PEDAL EDEMA Verified 05/22/21 18:18 sulfacetamide Allergy Unknown Unknown Verified 05/22/21 18:18 [From Sulfacet-R] sulfamethoxazole Allergy Unknown ITCHING Verified 05/22/21 18:18 [From BACTRIM] sulfur [From Sulfacet-R] Allergy Unknown Unknown Verified 05/22/21 18:18 trimethoprim [From BACTRIM] Allergy Unknown ITCHING Verified 05/22/21 18:18 risperidone [From RISPERDAL] AdvReac Unknown TWITCHING Verified 04/01/22 10:03 seafood AdvReac Unknown Vomiting Verified 05/22/21 18:18 shellfish derived AdvReac Unknown VOMITING Verified 04/01/22 10:03 [SHELLFISH DERIVED] Assessment & Plan Assessment & Plan (1) Opioid use disorder, moderate, in sustained remission, dependence: Status: Acute Code(s): F11.21 - Opioid dependence, in remission (2) Bipolar 1 disorder, depressed: Status: Acute Code(s): F31.9 - Bipolar disorder, unspecified (3) Chronic post-traumatic stress disorder (PTSD): Status: Acute Code(s): F43.12 - Post-traumatic stress disorder, chronic Plan Carlota is a 42 yo female with a hx of bipolar disorder, ptsd, and polysubstance abuse. Hx of TBI. She is on Methadone. Pt was recently discharged from [facility] on 04/15/22 due to pt malingering, drug seeking, and not engaging in treatment.?Pt has continued to abuse illicit substances, currently homeless, non-adherent on medications?including her methadone.?Pt re-presented to [facility] on 04/17/22 due to feeling very depressed and endorsing SI with plan to OD on narcotics when she gets her SSI check.?Pt admitted to using fentanyl and cocaine.?Per [facility] crisis eval, pt using cocaine via insufflation and IV, used 4-5 bundles of heroin IV. Ethyl alcohol negative. Plan: Pts medications have been decreased due to polypharm on multiple SMALL[employer]ELOPER depressants, during previous admission pt was nodding off after obtaining many of her PRNs in demanding manner from staff anesthesiologist. Flexeril discontinued. During this admission- Per staff anesthesiologist, pt is complaining of a rash in her groin area, will place wound consult.? Q15 min safety checks, CV Monitor response to medications. Monitor for safety in the milieu. Discharge on stabilization. Patient seen. Chart reviewed. Discussed with team. Obtain collateral contact info?as needed 04/22/22 Decrease Klonopin to 0.5 mg bid Decrease Gabapentin to 300 mg tid I spent minutes with the patient and/or on the patient floor today, greater than?50% of which was spent counseling/coordinating care. Patient educated on: therapeutic strategies Informed Consent: further education needed Reason for contiued inpatient stay Substantial Risk for: inability to function and rapid decompensation
[2022-04-22 18:00] VITALS: BP 118/58; PULSE 61; RESP 16; TEMP 36; O2SAT 98
[2022-04-22] MEDS: Propranolol HCL 10 MG TABLET PO (22:23)
[2022-04-22] MEDS: Topiramate 100 MG TABLET 200 MG PO (22:23)
[2022-04-22] MEDS: Lithium Carbonate ER 450 MG TABLET.ER 900 MG PO (22:23)
[2022-04-23] MEDS: Thiamine HCL 100 MG TABLET PO (08:11)
[2022-04-23] MEDS: Perphenazine 4 MG TABLET PO ×2 (08:11→19:58)
[2022-04-23] MEDS: Topiramate 100 MG TABLET PO (08:11)
[2022-04-23] MEDS: Loratadine 10 MG TABLET PO (08:11)
[2022-04-23] MEDS: Gabapentin 300 MG CAPSULE PO ×3 (08:11→19:58)
[2022-04-23] MEDS: Ferrous Sulfate 324 MG TABLET.DR PO (08:11)
[2022-04-23] MEDS: Propranolol HCL 10 MG TABLET PO ×2 (08:11→19:58)
[2022-04-23] MEDS: Multivitamin TABLET 1 TAB PO (08:11)
[2022-04-23] MEDS: methADONE HCl 20 MG/2 ML ORAL.CONC 135 MG PO (08:12)
[2022-04-23] MEDS: clonazePAM 0.5 MG TABLET PO ×2 (08:12→19:58)
[2022-04-23 08:17] VITALS: BP 114/82; PULSE 66; RESP 16; TEMP 36.2; O2SAT 98
[2022-04-23 18:00] VITALS: BP 119/68; PULSE 82; RESP 16; TEMP 36.5; O2SAT 98
[2022-04-23] MEDS: Cyclobenzaprine HCl 5 MG TABLET PO (18:05)
--- NOTE | 2022-04-23 18:09 | HO.PSYCHPN ---
Subjective Subjective Date of Service: 04/23/22 Reason For Visit: POLYSUBSTANCE USE DISORDER BIPOLAR DISORDER PTSD Subjective Notes: Conditional Voluntary Healthcare Proxy: No Guardianship: No Medical Problems Affecting Mental Status: No Interim History: Improved alertness and attentiveness today. Attempting to gather different types of belongings in the art room and supply/clothing closet. Will restrict pt from those areas. Pleased to be going to [facility]. Reports physical pain from medication tapering-will offer Flexeril 5 mg bid to assist. Medication Compliance: Yes Side effects from medications: Yes (less sedated) Attending Groups: Intermittent Review of Systems Acute medical concerns: No Medical Review of Systems: unchanged Review of Systems Psychiatric: Reports irritability Mental Status Exam Mental Status Exam Patient Appearance: Fatigued Patient Orientation: Person, Place, Time and Situation Level of Consciousness: Sedated and Alert Patient Behavior: Dependent, Talkative, Fatigued and Distractible Mood Description: Withdrawn Affect Description: Withdrawn Patient Cognition Impaired: No Ability to Follow Directions: Fair Speech Pattern: Perseverating and Spontaneous Speech (child-like in tone at times) Memory Description: Episodic Impaired Hallucinations: None Delusions: Not Present Perceptual Disturbances: Depersonalization Thought Process: Distracted and Slowed Thinking Thought Content: positive for [place], positive for Circumstantial and positive for Slowed Thinking Depressive Symptoms: Sleeping More Than Usual Abnormal Motor Activity Signs and Symptoms: Restlessness Judgement: Fair Diagnostics Vital Signs (24Hr): Vital Signs - 24 hr 04/23/22 08:17 Temperature 97.1 F Pulse Rate 66 Respiratory Rate 16 Blood Pressure 114/82 Pulse Oximetry 98 Oxygen Delivery Method Room Air BMI result Body Mass Index 32.3 Labs Results: 04/18/22 10:23 04/18/22 10:23 Medications Medications Current Medications Acetaminophen (Acetaminophen 325 Mg Tablet) 650 mg PO Q6H PRN PRN Reason: Headache/Pain Mild Scale (1-3) Last Admin: 04/21/22 05:53 Dose: 650 mg Al Hydroxide/Mg Hydroxide (Magnesium Hydrox/Alum Hydrox 30 Ml Oral.Susp) 30 ml PO Q6H PRN PRN Reason: Heartburn/Nausea Last Admin: 04/19/22 15:35 Dose: 30 ml Bacitracin (Bacitracin Oint 14 Gm Tube) 1 appl TOPICAL BID [facility] Last Admin: 04/23/22 09:59 Dose: Not Given Clonazepam (Clonazepam 0.5 Mg Tablet) 0.[address] [facility] Last Admin: 04/23/22 08:12 Dose: 0.5 mg Clotrimazole (Clotrimazole 1 % Cream 15 Gm Tube) [address] [facility]; Protocol Last Admin: 04/23/22 09:59 Dose: Not Given Cyclobenzaprine HCl (Cyclobenzaprine Hcl 5 Mg Tablet) [address] [facility] Last Admin: 04/23/22 18:05 Dose: 5 mg Ferrous Sulfate (Ferrous Sulfate 324 Mg Tablet.Dr) 324 mg PO DAILY@0800 [facility] Last Admin: 04/23/22 08:11 Dose: 324 mg Gabapentin (Gabapentin 300 Mg Capsule) [address] [facility] Last Admin: 04/23/22 14:20 Dose: 300 mg [place] Carbonate ([place] Carbonate Er 450 Mg Tablet.Er) [address] [facility] Last Admin: 04/22/22 22:23 Dose: 900 mg Loperamide HCl (Loperamide Hcl 2 Mg Capsule) 2 mg PO Q6H PRN PRN Reason: diarrhea Loratadine (Loratadine 10 Mg Tablet) [address] [facility] Last Admin: 04/23/22 08:11 Dose: 10 mg Magnesium Hydroxide (Milk Of Magnesia 30 Ml Oral.Susp) 30 ml PO DAILY PRN PRN Reason: Constipation Methadone HCl (Methadone Hcl 20 Mg/2 Ml Oral.Conc) [address] [facility] Last Admin: 04/23/22 08:12 Dose: 135 mg Multi-Ingred Cream/Lotion/Oil/Oint (Mineral Oil/Petrolatum,White 106 Gm Tube) [address] [facility]; Protocol Last Admin: 04/23/22 10:00 Dose: Not Given Multivitamins/Vitamin C (Multivitamin Tablet) [address] [facility] Last Admin: 04/23/22 08:11 Dose: 1 tab Nicotine (Nicotine 21 Mg Patch.Td24) 21 mg TRANSDERMA DAILY PRN PRN Reason: nicotine cravings Nicotine Polacrilex (Nicotine Polacrilex 2 Mg Gum) 4 mg BUCCAL Q2H PRN PRN Reason: Nicotine Cravings Last Admin: 04/22/22 22:30 Dose: 4 mg Nystatin (Nystatin Cream 15 Gm Tube) [address] [facility]; Protocol Stop: 05/02/22 08:59 Last Admin: 04/23/22 10:00 Dose: Not Given Perphenazine (Perphenazine 4 Mg Tablet) [address] [facility] Last Admin: 04/23/22 08:11 Dose: 4 mg Propranolol HCl (Propranolol Hcl 10 Mg Tablet) [address] [facility]; Protocol Last Admin: 04/23/22 08:11 Dose: 10 mg Thiamine HCl (Thiamine Hcl 100 Mg Tablet) [address] [facility] Last Admin: 04/23/22 08:11 Dose: 100 mg Topiramate (Topiramate 100 Mg Tablet) [address] [facility] Last Admin: 04/23/22 08:11 Dose: 100 mg Topiramate (Topiramate 100 Mg Tablet) [address] [facility] Last Admin: 04/22/22 22:23 Dose: 200 mg Trazodone HCl (Trazodone Hcl 50 Mg Tablet) 50 mg PO BEDTIME PRN PRN Reason: Insomnia Allergies Allergies Allergy/AdvReac Type Severity Reaction Status Date / Time quetiapine [From SEROQUEL] Allergy Severe THROAT Verified 04/01/22 10:03 SWELLING azithromycin [AZITHROMYCIN] Allergy Unknown Unknown Verified 04/01/22 10:03 erythromycin base Allergy Unknown RASH Verified 05/22/21 18:18 [ERYTHROMYCIN BASE] olanzapine [From ZYPREXA] Allergy Unknown PEDAL EDEMA Verified 05/22/21 18:18 sulfacetamide Allergy Unknown Unknown Verified 05/22/21 18:18 [From Sulfacet-R] sulfamethoxazole Allergy Unknown ITCHING Verified 05/22/21 18:18 [From BACTRIM] sulfur [From Sulfacet-R] Allergy Unknown Unknown Verified 05/22/21 18:18 trimethoprim [From BACTRIM] Allergy Unknown ITCHING Verified 05/22/21 18:18 risperidone [From RISPERDAL] AdvReac Unknown TWITCHING Verified 04/01/22 10:03 seafood AdvReac Unknown Vomiting Verified 05/22/21 18:18 shellfish derived AdvReac Unknown VOMITING Verified 04/01/22 10:03 [SHELLFISH DERIVED] Assessment & Plan Assessment & Plan (1) Opioid use disorder, moderate, in sustained remission, dependence: Status: Acute Code(s): F11.21 - Opioid dependence, in remission (2) Bipolar 1 disorder, depressed: Status: Acute Code(s): F31.9 - Bipolar disorder, unspecified (3) Chronic post-traumatic stress disorder (PTSD): Status: Acute Code(s): F43.12 - Post-traumatic stress disorder, chronic Plan Carlota is a 42 yo female with a hx of bipolar disorder, ptsd, and polysubstance abuse. Hx of TBI. She is on Methadone. Pt was recently discharged from [facility] on 04/15/22 due to pt malingering, drug seeking, and not engaging in treatment.?Pt has continued to abuse illicit substances, currently homeless, non-adherent on medications?including her methadone.?Pt re-presented to [facility] on 04/17/22 due to feeling very depressed and endorsing SI with plan to OD on narcotics when she gets her SSI check.?Pt admitted to using fentanyl and cocaine.?Per [facility] crisis eval, pt using cocaine via insufflation and IV, used 4-5 bundles of heroin IV. Ethyl alcohol negative. 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 Flexeril discontinued. During this admission- Per staff command and control officer, pt is complaining of a rash in her groin area, will place wound consult.? Q15 min safety checks, CV Monitor response to medications. Monitor for safety in the milieu. Discharge on stabilization. Patient seen. Chart reviewed. Discussed with team. Obtain collateral contact info?as needed 04/22/22 Decrease Klonopin to 0.5 mg bid Decrease Gabapentin to 300 mg tid 04/23/33 Flexeril 5 mg bid Discharge 04/24/22-[facility] I spent minutes with the patient and/or on the patient floor today, greater than?50% of which was spent counseling/coordinating care. Patient educated on: medication risk/benefits and therapeutic strategies Informed Consent: understands and further education needed Reason for contiued inpatient stay Substantial Risk for: rapid decompensation
[2022-04-23] MEDS: Topiramate 100 MG TABLET 200 MG PO (19:58)
[2022-04-23] MEDS: Lithium Carbonate ER 450 MG TABLET.ER 900 MG PO (19:58)
[2022-04-23] MEDS: Bacitracin Oint 14 GM TUBE 1 APPL TOPICAL (20:37)
[2022-04-24] MEDS: Acetaminophen 325 MG TABLET 650 MG PO (03:23)
[2022-04-24 06:00] VITALS: BP 121/60; PULSE 65; RESP 16; TEMP 36.1; O2SAT 99
[2022-04-24] MEDS: Nicotine Polacrilex 2 MG GUM 4 MG BUCCAL (06:07)
[2022-04-24 07:00] VITALS: BMI 35.4
[2022-04-24] MEDS: Perphenazine 4 MG TABLET PO (08:11)
[2022-04-24] MEDS: Gabapentin 300 MG CAPSULE PO (08:11)
[2022-04-24] MEDS: Thiamine HCL 100 MG TABLET PO (08:11)
[2022-04-24] MEDS: Loratadine 10 MG TABLET PO (08:11)
[2022-04-24] MEDS: Cyclobenzaprine HCl 5 MG TABLET PO (08:11)
[2022-04-24] MEDS: Ferrous Sulfate 324 MG TABLET.DR PO (08:12)
[2022-04-24] MEDS: clonazePAM 0.5 MG TABLET PO (08:12)
[2022-04-24] MEDS: Topiramate 100 MG TABLET PO (08:12)
[2022-04-24] MEDS: Multivitamin TABLET 1 TAB PO (08:12)
[2022-04-24] MEDS: methADONE HCl 20 MG/2 ML ORAL.CONC 135 MG PO (08:15)
[2022-04-24] MEDS: Propranolol HCL 10 MG TABLET PO (09:48)
--- NOTE | 2022-04-24 17:00 | PM.PSYDC ---
DS: Providers Provider Date of Service: 04/24/22 Date of admission: 04/18/22 14:30 Date of discharge: 04/24/22 Primary care physician: Esau Caldwell MD Admitting clinician: Patricia Santamaria Attending physician on admission: Rohit Jimenez Attending physician on discharge: Rohit Jimenez Discharging clinician: Neli Orantes DS: Diagnosis Discharge Diagnosis (1) Opioid use disorder, moderate, in sustained remission, dependence: Status: Acute (2) Bipolar 1 disorder, depressed: Status: Acute (3) Chronic post-traumatic stress disorder (PTSD): Status: Acute DS: Medications Discharge Medications Home Medications: Previous Rx's Medication Instructions Recorded methadone 10 mg/mL oral 135 mg (13.5 mL) PO DAILY #0 mL 04/15/22 concentrate (Methadose) clonazepam 0.5 mg tablet 0.5 mg PO BID #14 tabs 04/23/22 clotrimazole 1 % topical cream 1 appl topical BID #1 applicator 04/23/22 cyclobenzaprine 5 mg tablet 5 mg PO BID #14 tabs 04/23/22 ferrous sulfate 324 mg (65 mg 324 mg PO DAILY@0800 #30 tabs 04/23/22 iron) tablet,delayed release gabapentin 300 mg capsule 300 mg PO TID #21 caps 04/23/22 lithium carbonate 450 mg 900 mg PO BEDTIME #14 tabs 04/23/22 tablet,extended release loratadine 10 mg tablet 1 tab PO DAILY #7 tabs 04/23/22 jhnaanzthvdf-avjrglci-oayl 1 tab PO DAILY #30 tabs 04/23/22 fumarate 7.5 mg-folic acid 400 mcg tablet nicotine (polacrilex) 2 mg gum 4 mg buccal Q2H PRN Nicotine 04/23/22 Cravings #30 ea nicotine 21 mg/24 hr daily 21 mg transdermal DAILY PRN 04/23/22 transdermal patch nicotine cravings #30 ea nystatin 100,000 unit/gram topical 1 appl topical BID #1 applicator 04/23/22 cream perphenazine 4 mg tablet 4 mg PO BID #14 tabs 04/23/22 propranolol 10 mg tablet 10 mg PO BID #14 tabs 04/23/22 thiamine mononitrate (vit B1) 100 100 mg PO DAILY #30 tabs 04/23/22 mg tablet topiramate 100 mg tablet 1 tab PO DAILY #14 tabs 04/23/22 topiramate 200 mg tablet 1 tab PO BEDTIME #14 tabs 04/23/22 white petrolatum-mineral oil 1 appl topical BID #1 units 04/23/22 topical cream (Dermacerin topical cream) ferrous sulfate 324 mg (65 mg 324 mg PO DAILY #30 tabs 04/24/22 iron) tablet,delayed release naloxone 4 mg/actuation nasal 4 mg intranasal Q2M PRN opioid 04/24/22 spray (Narcan) overdose #2 ea Mental Status Exam Mental Status Exam Patient Appearance: Fatigued Patient Orientation: Person, Place, Time and Situation Level of Consciousness: Sedated and Alert Patient Behavior: Dependent, Talkative, Fatigued and Distractible Mood Description: Withdrawn Affect Description: Withdrawn Patient Cognition Impaired: No Ability to Follow Directions: Fair Speech Pattern: Perseverating and Spontaneous Speech (child-like in tone at times) Memory Description: Episodic Impaired Hallucinations: None Delusions: Not Present Perceptual Disturbances: Depersonalization Thought Process: Distracted and Slowed Thinking Thought Content: positive for [place], positive for Circumstantial and positive for Slowed Thinking Depressive Symptoms: Sleeping More Than Usual Abnormal Motor Activity Signs and Symptoms: Restlessness Judgement: Fair Data Data Completed and Pending Completed studies during hospitalization [Text1]: 04/17/22 04/18/22 04/18/22 23:35 07:23 07:23 WBC RBC Hgb Hct MCV MCH MCHC RDW Plt Count MPV Immature Gran % (Auto) Neut % (Auto) Lymph % (Auto) [facility] % (Auto) Eos % (Auto) Baso % (Auto) Lymph # (Auto) [facility] # (Auto) Eos # (Auto) Baso # (Auto) Abs Immat Gran (auto) Absolute Neuts (auto) Absolute Nucleated RBC Nucleated RBC % (auto) Sodium Potassium Chloride Carbon Dioxide Anion Gap BUN Creatinine Estim Creat Clear Calc Estimated GFR Random Glucose Estimat Average Glucose Hemoglobin A1c % Calcium Magnesium Total Bilirubin AST ALT Alkaline Phosphatase Total Protein Albumin Triglycerides Cholesterol LDL Cholesterol, Calc HDL Cholesterol Vitamin B12 Folate TSH Free T4 Urine Color YELLOW Urine Appearance CLEAR Urine pH 6.0 Ur Specific [place] 1.015 Urine Protein NEG Urine Glucose (UA) NEG Urine Ketones 15 Urine Blood NEG Urine Nitrite NEG Ur Leukocyte Esterase 2+ H Urine RBC 0 Urine WBC 5-9 H Ur Squamous Epith Cells 1+ Urine Bacteria 1+ Urine Test Urine Opiates Screen POSITIVE H Urine Fentanyl Screen POSITIVE H Ur Barbiturates Screen Not Detected Ur Phencyclidine Scrn Not Detected Ur Amphetamines Screen Not Detected U Benzodiazepines Scrn POSITIVE H Urine Cocaine Screen POSITIVE H U Marijuana (THC) Screen Not Detected COVID-19 (ZACK) Negative COVID-19 Clin Com See Note 04/18/22 04/18/22 04/18/22 07:23 10:23 10:23 WBC 4.8 RBC 4.16 L Hgb 12.4 Hct 36.4 L MCV 87.5 MCH 29.8 MCHC 34.1 RDW 13.7 Plt Count 142 L MPV 10.5 Immature Gran % (Auto) 0.6 H Neut % (Auto) 55.5 Lymph % (Auto) 29.0 [facility] % (Auto) 10.9 Eos % (Auto) 3.4 Baso % (Auto) 0.6 Lymph # (Auto) 1.4 [facility] # (Auto) 0.5 Eos # (Auto) 0.2 Baso # (Auto) 0.0 Abs Immat Gran (auto) 0.03 Absolute Neuts (auto) 2.6 Absolute Nucleated RBC 0.000 Nucleated RBC % (auto) 0.0 Sodium 138 Potassium 3.5 Chloride 105 Carbon Dioxide 23 Anion Gap 14 BUN 13 Creatinine 0.72 Estim Creat Clear Calc 113.1 Estimated GFR > 60 Random Glucose 111 Estimat Average Glucose Hemoglobin A1c % Calcium 8.6 Magnesium Total Bilirubin 0.8 AST 98 H ALT 91 H Alkaline Phosphatase 83 Total Protein 6.8 Albumin 4.0 Triglycerides Cholesterol LDL Cholesterol, Calc HDL Cholesterol Vitamin B12 Folate TSH Free T4 0.82 Urine Color Urine Appearance Urine pH Ur Specific [place] Urine Protein Urine Glucose (UA) Urine Ketones Urine Blood Urine Nitrite Ur Leukocyte Esterase Urine RBC Urine WBC Ur Squamous Epith Cells Urine Bacteria Urine Test NEGATIVE Urine Opiates Screen Urine Fentanyl Screen Ur Barbiturates Screen Ur Phencyclidine Scrn Ur Amphetamines Screen U Benzodiazepines Scrn Urine Cocaine Screen U Marijuana (THC) Screen COVID-19 (ZACK) COVID-19 Clin Com 04/19/22 04/19/22 04/19/22 17:20 17:21 17:21 WBC RBC Hgb Hct MCV MCH MCHC RDW Plt Count MPV Immature Gran % (Auto) Neut % (Auto) Lymph % (Auto) [facility] % (Auto) Eos % (Auto) Baso % (Auto) Lymph # (Auto) [facility] # (Auto) Eos # (Auto) Baso # (Auto) Abs Immat Gran (auto) Absolute Neuts (auto) Absolute Nucleated RBC Nucleated RBC % (auto) Sodium Potassium Chloride Carbon Dioxide Anion Gap BUN Creatinine Estim Creat Clear Calc Estimated GFR Random Glucose Estimat Average Glucose 103 Hemoglobin A1c % 5.2 Calcium Magnesium 2.0 Total Bilirubin AST ALT Alkaline Phosphatase Total Protein Albumin Triglycerides 43 Cholesterol 95 LDL Cholesterol, Calc 51 HDL Cholesterol 36 D Vitamin B12 747 Folate > 20.0 TSH 6.25 H Free T4 1.05 Urine Color Urine Appearance Urine pH Ur Specific [place] Urine Protein Urine Glucose (UA) Urine Ketones Urine Blood Urine Nitrite Ur Leukocyte Esterase Urine RBC Urine WBC Ur Squamous Epith Cells Urine Bacteria Urine Test Urine Opiates Screen Urine Fentanyl Screen Ur Barbiturates Screen Ur Phencyclidine Scrn Ur Amphetamines Screen U Benzodiazepines Scrn Urine Cocaine Screen U Marijuana (THC) Screen COVID-19 (ZACK) COVID-19 Clin Com DS: Summary Hospital Course Hospital Course: Admission to adult psychiatry for exacerbation of substance abuse, opiate use disorder, bipolar disorder. Recent admission 03/29/22 to 04/15/22. Pt had refused Sim TSS, discharged to [facility] and returned to the ER having broken sobriety requesting readmission. Klonopin, Gabapentin and Propranolol were decreased. Carlota spent most of the admission sedated, improving when approaching discharge due to medication tapering. Several discussions were engaged regarding a safe plan for Carlota and a previous option, [facility], had an opening and offered her a placement. This was supported by the [facility] who had been working with pt post incarceration and it was accepted by Carlota and the team. Time spent discussing smoking cessation with patient: 3 to 10 minutes Status at Discharge Functional status at discharge: independent ambulation Overall status at discharge: patient is back to baseline Time Spent with Patient Time attestation: Total time spent providing and/or coordinating discharge services: Time spent: Greater than 30 minutes Discharge Plan Discharge Patient Disposition: Xfer Inpatient Rehab Fac Discharge Diagnosis: Bipolar Disorder PTSD Opiate Use Disorder Polysubstance use Referrals: Therapy Intake: Yessica Dejesus ([facility]) [Other] - 04/25/22 10:00 am (At this appointment you should mention you need a psychiatrist as well and they will put you on their wait list. They prioritize you on the list as you are a hospital discharge so mention this as well. ) Substance Abuse Residential: [facility] [Other] - 04/24/22 1:00 pm Clinician: Xin De La Cruz ([facility]) [Other] - 1 Week (*Call Xin when you get to [facility] and she will plan to come drop your belongings off there*) Esau Caldwell MD [Primary Care Provider] - 04/29/22 3:45 pm Discharge Medications: New nicotine (polacrilex) 2 mg Gum 4 mg buccal Q2H PRN (Reason: Nicotine Cravings) Qty: 30 0RF clonazepam 0.5 mg Tablet 0.5 mg PO BID Qty: 14 4RF propranolol 10 mg Tablet 10 mg PO BID Qty: 14 4RF Protocol: Hold for SBP/HR < HOLD for SBP < : 90 HOLD for HR < : 60 perphenazine 4 mg Tablet 4 mg PO BID Qty: 14 4RF gabapentin 300 mg Capsule 300 mg PO TID Qty: 21 4RF cyclobenzaprine 5 mg Tablet 5 mg PO BID Qty: 14 0RF nystatin 100,000 unit/gram Cream 1 appl topical BID Qty: 1 0RF Protocol: Apply to: Apply to: Groin rash naloxone [Narcan] 4 mg/actuation spray,non-aerosol 4 mg intranasal Q2M PRN (Reason: opioid overdose) Qty: 2 0RF Rx Instructions: spray 1 dose into ONE nostril; alternate nostrils w each dose until help arrives Continued methadone [Methadose] 10 mg/mL Concentrate 135 mg PO DAILY Qty: 0 0RF Rx Instructions: Partial Fill upon patient request. lithium carbonate 450 mg Tablet Extended Release 900 mg PO BEDTIME Qty: 14 4RF nicotine 21 mg/24 hr Patch 24 Hour 21 mg transdermal DAILY PRN (Reason: nicotine cravings) Qty: 30 0RF topiramate 200 mg tablet 1 tab PO BEDTIME Qty: 14 1RF topiramate 100 mg tablet 1 tab PO DAILY Qty: 14 1RF clotrimazole 1 % cream 1 appl topical BID Qty: 1 0RF loratadine 10 mg tablet 1 tab PO DAILY Qty: 7 4RF Dermacerin Cream 1 appl TOPICAL BID Qty: 1 0RF thiamine mononitrate (vit B1) 100 mg Tablet 100 mg PO DAILY Qty: 30 0RF jivswhkd-ybh-ozxc fum-folic ac 7.5 mg iron-400 mcg tablet 1 tab PO DAILY Qty: 30 0RF ferrous sulfate 324 mg (65 mg iron) Tablet,Delayed Release (Dr/Ec) 324 mg PO DAILY Qty: 30 0RF Discontinued clonazepam 0.5 mg tablet 1 tab PO TID gabapentin 800 mg tablet 1 tab PO TID propranolol 20 mg tablet 1 tab PO Q6H PRN (Reason: Anxiety) Discharge Orders: Discharge Order (Routine); Ordered 04/24/22 Ordered By: Neli Orantes Diet: Advance to usual diet Activity on Discharge: As tolerated Stand Alone Forms: Patient Portal Discharge page, Community Support Care Plan Goals: Mood Stabilization Work on Sobriety Health Concerns: Bipolar Disorder PTSD Opiate Use Disorder Polysubstance Use Disorder Plan of Treatment: [facility] Attend follow up appointments Take medications as directed Assessment: Alert, oriented, non-psychotic, non-suicidal Pleased to be going to [facility] and looking forward to this next step in her recovery. Discharge Date/Time: 04/24/22 11:50
== END 2022-04-24 11:50 | DRG 753 ==
LOC: HO.ED 04-18 08:53 → HO.PM5 04-18 14:31
PROVIDERS: Clinical Nurse Specialist Psychiatric/Mental Health, Adult; Student in an Organized Health Care Education/Training Program; Admitting Provider Psychiatry & Neurology Psychiatry; Emergency Provider Emergency Medicine Emergency Medical Services; PCP Internal Medicine; Visit Provider Psychiatry & Neurology Psychiatry
DX: F31.30 Bipolar disorder, current episode depressed, mild or moderate severity, unspecified (principal); F11.20 Opioid dependence, uncomplicated; F43.12 Post-traumatic stress disorder, chronic; Z20.822 Contact with and (suspected) exposure to COVID-19; Z87.891 Personal history of nicotine dependence; Z91.013 Allergy to seafood; Z88.2 Allergy status to sulfonamides; Z79.899 Other long term (current) drug therapy
CPT/HCPCS: 36415; 80053; 80061; 80307; 81001; 81025; 82607; 82746; 83036; 83735; 84439; 84443; 85025; 87635; 93005; 99285

== ENCOUNTER 2022-04-25 14:18 | Inpatient (IN) | payer OTHER, SELFPAY ==
[2022-04-25 14:26] VITALS: BP 130/67; PULSE 82; O2SAT 98; BMI 24.3
--- NOTE | 2022-04-25 15:24 | MHC.CARE ---
smart sheet completed
--- NOTE | 2022-04-25 15:26 | ED_ITS ---
HPI - Psych General Chief Complaint: Psychiatric Symptoms Stated Complaint: SI/crisis Time Seen by Provider: 04/25/22 15:11 Source: patient Mode of arrival: ambulatory Limitations: no limitations History of Present Illness HPI Narrative: 42-year-old female with the history of IV drug abuse, bipolar disorder, PTSD who presents with depression and feeling suicidal with plans to cut her throat. 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 Patient denies any homicidal ideations, hallucinations. Patient has no physical complaints. Her last dose of methadone was yesterday morning. Related Data Previous Rx's Medication Instructions Recorded methadone 10 mg/mL oral 135 mg (13.5 mL) PO DAILY #0 mL 04/15/22 concentrate (Methadose) clonazepam 0.5 mg tablet 0.5 mg PO BID #14 tabs 04/23/22 clotrimazole 1 % topical cream 1 appl topical BID #1 applicator 04/23/22 cyclobenzaprine 5 mg tablet 5 mg PO BID #14 tabs 04/23/22 gabapentin 300 mg capsule 300 mg PO TID #21 caps 04/23/22 lithium carbonate 450 mg 900 mg PO BEDTIME #14 tabs 04/23/22 tablet,extended release loratadine 10 mg tablet 1 tab PO DAILY #7 tabs 04/23/22 ijvahmakcjvs-usgcurvr-fhxf 1 tab PO DAILY #30 tabs 04/23/22 fumarate 7.5 mg-folic acid 400 mcg tablet nicotine (polacrilex) 2 mg gum 4 mg buccal Q2H PRN Nicotine 04/23/22 Cravings #30 ea nicotine 21 mg/24 hr daily 21 mg transdermal DAILY PRN 04/23/22 transdermal patch nicotine cravings #30 ea nystatin 100,000 unit/gram topical 1 appl topical BID #1 applicator 04/23/22 cream perphenazine 4 mg tablet 4 mg PO BID #14 tabs 04/23/22 propranolol 10 mg tablet 10 mg PO BID #14 tabs 04/23/22 thiamine mononitrate (vit B1) 100 100 mg PO DAILY #30 tabs 04/23/22 mg tablet topiramate 100 mg tablet 1 tab PO DAILY #14 tabs 04/23/22 topiramate 200 mg tablet 1 tab PO BEDTIME #14 tabs 04/23/22 white petrolatum-mineral oil 1 appl topical BID #1 units 04/23/22 topical cream (Dermacerin topical cream) ferrous sulfate 324 mg (65 mg 324 mg PO DAILY #30 tabs 04/24/22 iron) tablet,delayed release naloxone 4 mg/actuation nasal 4 mg intranasal Q2M PRN opioid 04/24/22 spray (Narcan) overdose #2 ea Allergies Allergy/AdvReac Type Severity Reaction Status Date / Time quetiapine [From SEROQUEL] Allergy Severe THROAT Verified 04/01/22 10:03 SWELLING azithromycin [AZITHROMYCIN] Allergy Unknown Unknown Verified 04/01/22 10:03 erythromycin base Allergy Unknown RASH Verified 05/22/21 18:18 [ERYTHROMYCIN BASE] olanzapine [From ZYPREXA] Allergy Unknown PEDAL EDEMA Verified 05/22/21 18:18 sulfacetamide Allergy Unknown Unknown Verified 05/22/21 18:18 [From Sulfacet-R] sulfamethoxazole Allergy Unknown ITCHING Verified 05/22/21 18:18 [From BACTRIM] sulfur [From Sulfacet-R] Allergy Unknown Unknown Verified 05/22/21 18:18 trimethoprim [From BACTRIM] Allergy Unknown ITCHING Verified 05/22/21 18:18 risperidone [From RISPERDAL] AdvReac Unknown TWITCHING Verified 04/01/22 10:03 seafood AdvReac Unknown Vomiting Verified 05/22/21 18:18 shellfish derived AdvReac Unknown VOMITING Verified 04/01/22 10:03 [SHELLFISH DERIVED] Review of Systems Review of Systems: Yes all other systems are reviewed and are negative Constitutional: Constitutional: Reports no additional constitutional complaints, Denies body ache(s), Denies chills, Denies fever(s), Denies headache(s) and Denies weakness Eyes: Eyes: Reports no additional eye complaints and Denies change in vision ENT: Reports system reviewed and no additional complaints, except as documented, Denies dizziness, Denies headache(s), Denies nasal congestion, Denies nasal discharge and Denies neck pain Cardiovascular: Cardiovascular: Reports no additional cardiovascular complaints, Denies chest pain, Denies leg edema and Denies dyspnea Respiratory: Respiratory: Reports no additional respiratory complaints, Denies cough and Denies dyspnea Gastrointestinal: Gastrointestinal: Reports no additional gastrointestinal complaints, Denies abdominal pain, Denies diarrhea, Denies nausea and Denies vomiting Genitourinary: Genitourinary: Reports no additional female genitourinary complaints and Denies urinary incontinence Musculoskeletal: Musculoskeletal: Reports no additional musculoskeletal complaints, Denies back pain, Denies arthralgias, Denies joint swelling, Denies neck pain, Denies numbness and Denies tingling Integumentary/Breasts: Skin/Breast: Reports system reviewed and no additional complaints, except as docu and Denies rash Neurologic: Reports system reviewed and no additional complaints, except as documented, Denies Abnormal speech present, Denies dizziness, Denies headache(s), Denies numbness, Denies tingling and Denies weakness Psychiatric: Psychiatric: Reports depression and Reports suicidal ideation PMFSH Past Medical History Attestation statement: The following information was validated with the patient. Source: old records reviewed and nursing notes reviewed Medical History Chronic post-traumatic stress disorder (PTSD) Opioid dependence Opioid use disorder, moderate, in sustained remission, dependence Substance abuse Substance abuse Social History Social History Household Members: None Housing: Homeless Housing Other:: patient states she is homeless Do you presently have visiting nurse or other home services: No Unable to assess alcohol history related to: Refusing to respond Alcohol intake: current Alcohol intake frequency: does not drink Patient Tobacco Use Status: Current everyday Tobacco user Tobacco use type: Cigarette Cigarette Packs Per Day: 1 Cigarettes Per Day: 20.0 Years Smoked: 10+ e-Cigarette/Vaping Use: Currently Using Second Hand Smoke Exposure: Yes Substance Use Type: Crack/Cocaine and Opiates Advance Directives: No Advance Directives Information Provided: Yes Advance Directives Date on File: 12/28/20 service: No Current occupational status: disabled Sexual orientation: Straight/Heterosexual Physical Exam Vital Signs: Vital Signs: Last Vital Signs Pulse 82 04/25/22 14:26 BP 130/67 04/25/22 14:26 Pulse Ox 98 04/25/22 14:26 O2 Del Method 04/25/22 14:26 BMI result Body Mass Index 24.3 Const: General: cooperative, healthy appearing, comfortable and no acute distress Orientation/consciousness: patient oriented x3 Limitations: no limitations HEENT: Head: Yes normal to inspection Ears: hearing grossly normal bilaterally General nose exam: Normal external nose present Face and sinus: Yes normal facial exam Mouth: Normal oral and palatal mucosa present Throat: Yes posterior oropharynx normal Eyes: General: appearance normal, both eyes and all related structures Pupils: Equal, round and reactive pupils present Neck: Neck: Yes normal visual inspection Chest: Chest palpation & inspection: normal inspection of the chest Resp: Effort & Inspection: normal respiratory effort Auscultation: clear to auscultation bilaterally Cardio: Rate: regular rate Rhythm: regular rhythm Peripheral pulses: Peripheral pulses 2+ throughout GI: Inspection: Yes normal to inspection Palpation (GI): Soft to palpation and nontender Auscultation: normal bowel sounds Back/Spine/Pelvis: Thoracic/Lumbar Spine: thoracic and lumbar spine normal to inspection Skin: General skin exam: no rashes or lesions noted Neuro: General: patient oriented x3, no focal motor deficits and normal sensation to monofilament Cranial nerves: Yes CN's II-XII intact bilaterally and Yes Equal, round and reactive pupils present Cognition (Neuro): normal cognition Speech: No Abnormal speech present Gait exam (Neuro): Normal gait present Motor exam (neuro): 5/5 motor strength present throughout Extrem: General: Yes normal to inspection Course Course Course Narrative: Spoke to care team. Patient is to be evaluated by [facility] and crisis today. Temp plan is that she will be inpatient this and on Thursday the team is planning on [place] 35 her Reevaluation(s) Reevaluation #1: 1800-Sign out to Ruthann ROSAS pending final word from [facility]ARE MDM - Psych MDM Narrative Medical decision making narrative: 42-year-old female who presents with depression, suicidal thoughts with recent discharge from psychiatric unit. Patient also relapsed on heroin and cocaine. No concern for acute ingestion or trauma. Patient will need drug screen, COVID screen, crisis evaluation Medical Records Attestation: I reviewed the patient's medical records. Lab Data Attestation: I reviewed the patient's lab results. Labs: Lab Results 04/25/22 04/25/22 Range/Units 15:31 15:32 Urine Opiates Screen POSITIVE H (Not Detect) Urine Fentanyl Screen POSITIVE H (Not Detect) Ur Barbiturates Screen Not Detected (Not Detect) Ur Phencyclidine Scrn Not Detected (Not Detect) Ur Amphetamines Screen Not Detected (Not Detect) U Benzodiazepines Scrn POSITIVE H (Not Detect) Urine Cocaine Screen POSITIVE H (Not Detect) U Marijuana (THC) Screen Not Detected (Not Detect) COVID-19 (ZACK) Negative (Negative) COVID-19 Clin Com See Note Discharge Plan Discharge Clinical Impression: Bipolar disorder Patient Disposition: Still a Patient Prescriptions: No Action methadone [Methadose] 10 mg/mL Concentrate 135 mg PO DAILY Qty: 0 0RF Rx Instructions: Partial Fill upon patient request. nicotine (polacrilex) 2 mg Gum 4 mg buccal Q2H PRN (Reason: Nicotine Cravings) Qty: 30 0RF clonazepam 0.5 mg Tablet 0.5 mg PO BID Qty: 14 4RF propranolol 10 mg Tablet 10 mg PO BID Qty: 14 4RF Protocol: Hold for SBP/HR < HOLD for SBP < : 90 HOLD for HR < : 60 perphenazine 4 mg Tablet 4 mg PO BID Qty: 14 4RF gabapentin 300 mg Capsule 300 mg PO TID Qty: 21 4RF cyclobenzaprine 5 mg Tablet 5 mg PO BID Qty: 14 0RF nystatin 100,000 unit/gram Cream 1 appl topical BID Qty: 1 0RF Protocol: Apply to: Apply to: Groin rash lithium carbonate 450 mg Tablet Extended Release 900 mg PO BEDTIME Qty: 14 4RF nicotine 21 mg/24 hr Patch 24 Hour 21 mg transdermal DAILY PRN (Reason: nicotine cravings) Qty: 30 0RF topiramate 200 mg tablet 1 tab PO BEDTIME Qty: 14 1RF topiramate 100 mg tablet 1 tab PO DAILY Qty: 14 1RF clotrimazole 1 % cream 1 appl topical BID Qty: 1 0RF loratadine 10 mg tablet 1 tab PO DAILY Qty: 7 4RF Dermacerin Cream 1 appl TOPICAL BID Qty: 1 0RF thiamine mononitrate (vit B1) 100 mg Tablet 100 mg PO DAILY Qty: 30 0RF fnjyksdm-jny-pkxy fum-folic ac 7.5 mg iron-400 mcg tablet 1 tab PO DAILY Qty: 30 0RF ferrous sulfate 324 mg (65 mg iron) Tablet,Delayed Release (Dr/Ec) 324 mg PO DAILY Qty: 30 0RF naloxone [Narcan] 4 mg/actuation spray,non-aerosol 4 mg intranasal Q2M PRN (Reason: opioid overdose) Qty: 2 0RF Rx Instructions: spray 1 dose into ONE nostril; alternate nostrils w each dose until help arrives
--- NOTE | 2022-04-25 15:33 | PHA.MEDREC ---
Pharmacy Consult ? Medication Reconciliation Pharmacy has completed the medication reconciliation. Patient discharged from [facility] on 04/24/22. Herman LuisD
[2022-04-25 15:53] LABS: Amphetamine Screen Urine Not Detected (Not Detect); Barbiturates, Urine Not Detected (Not Detect); Benzodiazepines Screen Urine POSITIVE (Not Detect); Cannabinoid Screen Urine Not Detected (Not Detect); Cocaine Screen Urine POSITIVE (Not Detect); Fentanyl, urine POSITIVE (Not Detect); Opiate Screen Urine POSITIVE (Not Detect); Phencyclidine Screen Urine Not Detected (Not Detect)
[2022-04-25 15:55] LABS: COVID-19 Test Negative (Negative)
--- NOTE | 2022-04-25 17:02 | PC.NURSE ---
PT BROUGHT TO ED VOLUNTARILY FOR SI W/PLAN TO CUT SELF. PT REPORTED THAT SHE WAS RECENTLY DISCHARGED FROM [facility] AND HAS NOT GOTTEN ANY OF HER MEDS SINCE DISCHARGE. PT CRYING AND APOLOGIZING FOR COMING BACK HERE SO SOON. SHE SAID THAT SHE STARTED CUTTING HER WRIST LAST NIGHT BECAUSE SHE FELT HELPLESS AND HAD NO WHERE TO GO. THIS RN NOTED SWELLING AND REDNESS TO THE PT'S BUE, NO CUTS/OPEN AREAS NOTED. PT COOPERATIVE WITH CHANGE-OVER.
[2022-04-25 22:06] LABS: MANUAL DIFF FLAG NO
[2022-04-25 22:11] LABS: Basophils Percent Auto 0.5 % (0-2); Eosinophils Absolute Auto 0.2 X10*3/uL (0.0-0.4); Eosinophils Percent Auto 2.7 % (0-4); Hemoglobin 13.1 g/dl (12.0-16.0); Imm Gran Abs Auto 0.01 X10*3/uL (0.00-0.03); Imm Gran Pct Auto 0.2 % (0.0-0.4); Lymphocytes Absolute Auto 2.1 X10*3/uL (1.2-4.9); Lymphocytes Percent Auto 38.1 % (20-40); Mean Corpuscular HGB Conc 33.6 g/dl (31.0-35.0); Mean Corpuscular Hemoglobin 29.3 pg (27.0-33.0); Mean Corpuscular Volume 87.2 fL (80.0-98.0); Mean Platelet Volume 9.4 fL (9.4-12.3); Monocytes Absolute Auto 0.5 X10*3/uL (0.1-1.2); Neutrophils Absolute Auto 2.7 x10*3/uL (2.0-8.3); Neutrophils Percent Auto 49.5 % (45-73); Platelet Count 181 X10*3/uL (160-400); Red Blood Count 4.47 X10*6/uL (4.20-5.50); Red Cell Distribution Width 13.3 % (11.0-16.0); White Blood Count 5.5 X10*3/uL (4.8-10.8)
[2022-04-25 22:25] LABS: Anion Gap 12 (12-20); Blood Urea Nitrogen 13 mg/dL (9-16); Calcium 9.3 mg/dL (8.4-10.2); Carbon Dioxide 23 mmol/L (22-29); Chloride 104 mmol/L (96-108); Creatinine Clr Calc Pharmacy 111.9; Estimated Glomerular Filt Rate > 60; Ethanol < 10 mg/dL; Glucose Random 133 mg/dL (60-115); Potassium 3.2 mmol/L (3.3-5.1); Sodium 136 mmol/L (135-145)
--- NOTE | 2022-04-26 | ECG_ITS ---
Test Reason : MED CLEARANCE Blood Pressure : / mmHG Vent. Rate : 063 BPM Atrial Rate : 063 BPM P-R Int : 200 ms QRS Dur : 086 ms QT Int : 474 ms P-R-T Axes : 068 058 049 degrees QTc Int : 485 ms Normal sinus rhythm T wave abnormality, consider anterior ischemia Prolonged QT Abnormal ECG When compared with ECG of 18-APR-2022 13:58, Criteria for Inferior infarct are no longer Present Nonspecific T wave abnormality now evident in Inferior leads Nonspecific T wave abnormality, worse in Lateral leads Referred By: Sarita Aldana Electronically Signed By:BRANNON FRANKLIN MD
[2022-04-26 00:53] VITALS: BP 132/64; PULSE 87; RESP 17; TEMP 36.8; O2SAT 99
--- NOTE | 2022-04-26 01:47 | PC.ADMIT ---
Patient is a 42-year-old [place] Islander-speaking female who arrived to from [facility] ED at 0110 on CV status. Patient is covid negative. Patient self-presented to the [place] emergency department from the community endorsing suicidal ideation with a plan to cut her wrists . Toxicology shows positive for opiates, fentanyl, benzodiazepines, and cocaine. Patient is known to , and was recently discharged from a 7-day inpatient admission on the unit. She was slated to be admitted to [facility] sob living home; however while en route reportedly told the ice cream truck driver to drop her off at a location in [place] instead. Patient reported that command hallucinations told her to use substances instead of going into treatment. Patient is oriented X 4, states I just want to go to bed . Patient was cooperative in signing papers and participated in a limited admission assessment. Her right hand is red and swollen, and declines to describe the etiology of the injury, however is able to sign papers with the injured hand. VSS.
[2022-04-26 06:00] VITALS: BP 106/52; PULSE 61; RESP 16; TEMP 36.8; O2SAT 97
[2022-04-26] MEDS: Ferrous Sulfate 324 MG TABLET.DR PO (09:02)
[2022-04-26] MEDS: clonazePAM 0.5 MG TABLET PO ×2 (09:02→19:23)
[2022-04-26] MEDS: Gabapentin 300 MG CAPSULE PO ×3 (09:02→19:23)
[2022-04-26] MEDS: Cyclobenzaprine HCl 5 MG TABLET PO ×2 (09:02→19:22)
[2022-04-26] MEDS: Perphenazine 4 MG TABLET PO ×2 (09:03→19:22)
[2022-04-26] MEDS: Multivitamin TABLET 1 TAB PO (09:03)
[2022-04-26] MEDS: Thiamine HCL 100 MG TABLET PO (09:03)
[2022-04-26] MEDS: Loratadine 10 MG TABLET PO (09:03)
[2022-04-26] MEDS: Topiramate 100 MG TABLET PO (09:04)
[2022-04-26] MEDS: Propranolol HCL 10 MG TABLET PO ×2 (09:04→19:24)
[2022-04-26] MEDS: methADONE HCl 20 MG/2 ML ORAL.CONC 135 MG PO (09:06)
[2022-04-26] MEDS: hydrOXYzine HCL 25 MG TABLET PO (12:12)
[2022-04-26] MEDS: Gabapentin 100 MG CAPSULE PO (15:19)
[2022-04-26] MEDS: Acetaminophen 325 MG TABLET 650 MG PO (16:25)
[2022-04-26 17:07] LABS: Appearance Urine CLEAR; Color Urine YELLOW; Glucose Urine UA NEG (NEG); Leukocyte Esterase Urine NEG (NEG); Nitrite Urine NEG (NEG); PH 5.5 (5.0-8.0); Specific Gravity - Urine <= 1.005 (1.005-1.025); Urine Blood NEG (NEG); Urine Ketones NEG (NEG); Urine Protein NEG (NEG-TRACE)
[2022-04-26 19:15] VITALS: BP 95/54; PULSE 65; TEMP 36.3
[2022-04-26] MEDS: Topiramate 100 MG TABLET 200 MG PO (19:24)
[2022-04-26] MEDS: Lithium Carbonate ER 450 MG TABLET.ER 900 MG PO (19:24)
[2022-04-26] MEDS: Clotrimazole 1 % Cream 15 GM TUBE 1 APPL TOPICAL (19:28)
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
[2022-04-27] MEDS: Gabapentin 100 MG CAPSULE PO ×3 (00:45→15:51)
[2022-04-27] MEDS: Nicotine Polacrilex 2 MG GUM 4 MG BUCCAL ×6 (02:51→19:17)
[2022-04-27] MEDS: hydrOXYzine HCL 25 MG TABLET PO ×2 (04:03→15:51)
[2022-04-27 07:42] LABS: Estimated Average Glucose 103 mg/dL; Hemoglobin A1c % 5.2 %
[2022-04-27] MEDS: methADONE HCl 20 MG/2 ML ORAL.CONC 135 MG PO (07:52)
[2022-04-27] MEDS: Thiamine HCL 100 MG TABLET PO (07:53)
[2022-04-27] MEDS: Multivitamin TABLET 1 TAB PO (07:53)
[2022-04-27] MEDS: Cyclobenzaprine HCl 5 MG TABLET PO ×2 (07:53→19:37)
[2022-04-27] MEDS: Perphenazine 4 MG TABLET PO ×2 (07:53→19:36)
[2022-04-27] MEDS: Propranolol HCL 10 MG TABLET PO ×2 (07:53→19:35)
[2022-04-27] MEDS: Topiramate 100 MG TABLET PO (07:53)
[2022-04-27] MEDS: Ferrous Sulfate 324 MG TABLET.DR PO (07:53)
[2022-04-27] MEDS: Gabapentin 300 MG CAPSULE PO ×3 (07:53→19:36)
[2022-04-27] MEDS: Loratadine 10 MG TABLET PO (07:53)
[2022-04-27] MEDS: clonazePAM 0.5 MG TABLET PO ×2 (07:54→19:36)
[2022-04-27 07:57] VITALS: BP 119/69; PULSE 67; RESP 17; TEMP 36.3; O2SAT 98
[2022-04-27 08:00] LABS: Cholesterol 90 mg/dL; HDL Cholesterol 48 mg/dL; LDL Cholesterol Calculated 35 mg/dl; Magnesium 1.8 mg/dL (1.6-2.6); Triglycerides 35 mg/dL
[2022-04-27] MEDS: Nicotine 21 MG PATCH.TD24 TRANSDERMA (08:17)
[2022-04-27 08:19] LABS: Free T4 (Free Thyroxine) 1.07 ng/dL (0.71-1.85); Thyroid Stimulating Hormone 2.41 uIU/mL (0.32-4.0)
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
--- NOTE | 2022-04-27 17:25 | P.PNPSI_ITS ---
Subjective Subjective Date of Service: 04/26/22 Reason For Visit: Polysubstance use, SI Subjective Notes: [place] Warning and Conditional Voluntary Healthcare Proxy: No Guardianship: No Medical Problems Affecting Mental Status: No Interim History: Patient seen and discussed with team. Patient evaluated today and upon interview pt reports she feels really depressed, really suicidal, doesnt want to live. Denies plan or intent to harm herself in the hospital. Says I dont even want to talk to anybody or do anything, i just hate myself so much. Says she doesnt know how to live with all this trauma. Also discusses her struggles with memory due to hx of TBI. She continues to detox, says her body is uncomfortable. In the milieu, patient is safe but isolative in bx. Medication Compliance: Yes Side effects from medications: No Attending Groups: No Review of Systems Acute medical concerns: No Medical Review of Systems: unchanged Mental Status Exam Mental Status Exam Narrative: Patient Appearance: Fatigued Patient Orientation: Person, Place, Time and Situation Level of Consciousness: Sedated and Alert Patient Behavior: Dependent, Talkative, Fatigued and Distractible Mood Description: Withdrawn Affect Description: Withdrawn Patient Cognition Impaired: No Ability to Follow Directions: Fair Speech Pattern: Perseverating and Spontaneous Speech (child-like in tone at times) Memory Description: Episodic Impaired Hallucinations: None Delusions: Not Present Perceptual Disturbances: Depersonalization Thought Process: Distracted and Slowed Thinking Thought Content: positive for [place], positive for Circumstantial and positive for Slowed Thinking Depressive Symptoms: Sleeping More Than Usual Abnormal Motor Activity Signs and Symptoms: Restlessness Judgement: Fair Diagnostics Vital Signs (24Hr): Vital Signs - 24 hr 04/26/22 19:15 04/27/22 07:57 Temperature 97.3 F 97.3 F Pulse Rate 65 67 Respiratory Rate 17 Blood Pressure 95/54 L 119/69 Pulse Oximetry 98 Oxygen Delivery Method Room Air BMI result Body Mass Index 24.3 Labs Results: 04/25/22 22:01 04/25/22 22:01 Labs: Laboratory Results - last 48 hr 04/25/22 04/25/22 04/26/22 22:01 22:01 16:15 WBC 5.5 RBC 4.47 Hgb 13.1 Hct 39.0 MCV 87.2 MCH 29.3 MCHC 33.6 RDW 13.3 Plt Count 181 D MPV 9.4 Immature Gran % (Auto) 0.2 Neut % (Auto) 49.5 Lymph % (Auto) 38.1 [place] % (Auto) 9.0 Eos % (Auto) 2.7 Baso % (Auto) 0.5 Lymph # (Auto) 2.1 [place] # (Auto) 0.5 Eos # (Auto) 0.2 Baso # (Auto) 0.0 Abs Immat Gran (auto) 0.01 Absolute Neuts (auto) 2.7 Absolute Nucleated RBC 0.000 Nucleated RBC % (auto) 0.0 Sodium 136 Potassium 3.2 L Chloride 104 Carbon Dioxide 23 Anion Gap 12 BUN 13 Creatinine 0.74 Estim Creat Clear Calc 111.9 Estimated GFR > 60 Random Glucose 133 H Estimat Average Glucose Hemoglobin A1c % Calcium 9.3 D Magnesium Triglycerides Cholesterol LDL Cholesterol, Calc HDL Cholesterol TSH Free T4 Urine Color YELLOW Urine Appearance CLEAR Urine pH 5.5 Ur Specific [place] <= 1.005 Urine Protein NEG Urine Glucose (UA) NEG Urine Ketones NEG Urine Blood NEG Urine Nitrite NEG Ur Leukocyte Esterase NEG Ethyl Alcohol < 10 04/27/22 04/27/22 07:17 07:17 WBC RBC Hgb Hct MCV MCH MCHC RDW Plt Count MPV Immature Gran % (Auto) Neut % (Auto) Lymph % (Auto) [place] % (Auto) Eos % (Auto) Baso % (Auto) Lymph # (Auto) [place] # (Auto) Eos # (Auto) Baso # (Auto) Abs Immat Gran (auto) Absolute Neuts (auto) Absolute Nucleated RBC Nucleated RBC % (auto) Sodium Potassium Chloride Carbon Dioxide Anion Gap BUN Creatinine Estim Creat Clear Calc Estimated GFR Random Glucose Estimat Average Glucose 103 Hemoglobin A1c % 5.2 Calcium Magnesium 1.8 Triglycerides 35 Cholesterol 90 LDL Cholesterol, Calc 35 HDL Cholesterol 48 D TSH 2.41 Free T4 1.07 Urine Color Urine Appearance Urine pH Ur Specific [place] Urine Protein Urine Glucose (UA) Urine Ketones Urine Blood Urine Nitrite Ur Leukocyte Esterase Ethyl Alcohol Medications Medications Current Medications Acetaminophen (Acetaminophen 325 Mg Tablet) 650 mg PO Q6H PRN PRN Reason: Headache/Pain Mild Scale (1-3) Last Admin: 04/26/22 16:25 Dose: 650 mg Al Hydroxide/Mg Hydroxide (Magnesium Hydrox/Alum Hydrox 30 Ml Oral.Susp) 30 ml PO Q6H PRN PRN Reason: Heartburn/Nausea Clonazepam (Clonazepam 0.5 Mg Tablet) 0.5 mg PO BID [facility] Last Admin: 04/27/22 07:54 Dose: 0.5 mg Clotrimazole (Clotrimazole 1 % Cream 15 Gm Tube) 1 appl TOPICAL BID [facility] Last Admin: 04/27/22 07:56 Dose: Not Given Cyclobenzaprine HCl (Cyclobenzaprine Hcl 5 Mg Tablet) 5 mg PO BID [facility] Last Admin: 04/27/22 07:53 Dose: 5 mg Ferrous Sulfate (Ferrous Sulfate 324 Mg Tablet.Dr) 324 mg PO DAILY [facility] Last Admin: 04/27/22 07:53 Dose: 324 mg Gabapentin (Gabapentin 300 Mg Capsule) 300 mg PO TID [facility] Last Admin: 04/27/22 13:58 Dose: 300 mg Gabapentin (Gabapentin 100 Mg Capsule) 100 mg PO TID PRN PRN Reason: anxiety, nerve pain Last Admin: 04/27/22 15:51 Dose: 100 mg Hydroxyzine HCl (Hydroxyzine Hcl 25 Mg Tablet) 25 mg PO Q6H PRN PRN Reason: Anxiety Last Admin: 04/27/22 15:51 Dose: 25 mg [place] Carbonate ([place] Carbonate Er 450 Mg Tablet.Er) 900 mg PO BEDTIME [facility] Last Admin: 04/26/22 19:24 Dose: 900 mg Loratadine (Loratadine 10 Mg Tablet) 10 mg PO DAILY [facility] Last Admin: 04/27/22 07:53 Dose: 10 mg Magnesium Hydroxide (Milk Of Magnesia 30 Ml Oral.Susp) 30 ml PO DAILY PRN PRN Reason: Constipation Methadone HCl (Methadone Hcl 20 Mg/2 Ml Oral.Conc) 135 mg PO DAILY [facility] Last Admin: 04/27/22 07:52 Dose: 135 mg Multi-Ingred Cream/Lotion/Oil/Oint (Mineral Oil/Petrolatum,White 106 Gm Tube) 1 appl TOPICAL BID [facility] Last Admin: 04/27/22 07:56 Dose: Not Given Multivitamins/Vitamin C (Multivitamin Tablet) 1 tab PO DAILY [facility] Last Admin: 04/27/22 07:53 Dose: 1 tab Nicotine (Nicotine 21 Mg Patch.Td24) 21 mg TRANSDERMA DAILY PRN PRN Reason: nicotine cravings Last Admin: 04/27/22 08:17 Dose: 21 mg Nicotine Polacrilex (Nicotine Polacrilex 2 Mg Gum) 4 mg BUCCAL Q2H PRN PRN Reason: Nicotine Cravings Last Admin: 04/27/22 15:52 Dose: 4 mg Nystatin (Nystatin Cream 15 Gm Tube) 1 appl TOPICAL BID [facility] Last Admin: 04/27/22 07:56 Dose: Not Given Perphenazine (Perphenazine 4 Mg Tablet) 4 mg PO BID [facility] Last Admin: 04/27/22 07:53 Dose: 4 mg Propranolol HCl (Propranolol Hcl 10 Mg Tablet) 10 mg PO BID [facility]; Protocol Last Admin: 04/27/22 07:53 Dose: 10 mg Thiamine HCl (Thiamine Hcl 100 Mg Tablet) 100 mg PO DAILY [facility] Last Admin: 04/27/22 07:53 Dose: 100 mg Topiramate (Topiramate 100 Mg Tablet) 100 mg PO DAILY [facility] Last Admin: 04/27/22 07:53 Dose: 100 mg Topiramate (Topiramate 100 Mg Tablet) 200 mg PO BEDTIME [facility] Last Admin: 04/26/22 19:24 Dose: 200 mg Trazodone HCl (Trazodone Hcl 50 Mg Tablet) 50 mg PO BEDTIME PRN PRN Reason: Insomnia Allergies Allergies Allergy/AdvReac Type Severity Reaction Status Date / Time quetiapine [From SEROQUEL] Allergy Severe THROAT Verified 04/01/22 10:03 SWELLING azithromycin [AZITHROMYCIN] Allergy Unknown Unknown Verified 04/01/22 10:03 erythromycin base Allergy Unknown RASH Verified 05/22/21 18:18 [ERYTHROMYCIN BASE] olanzapine [From ZYPREXA] Allergy Unknown PEDAL EDEMA Verified 05/22/21 18:18 sulfacetamide Allergy Unknown Unknown Verified 05/22/21 18:18 [From Sulfacet-R] sulfamethoxazole Allergy Unknown ITCHING Verified 05/22/21 18:18 [From BACTRIM] sulfur [From Sulfacet-R] Allergy Unknown Unknown Verified 05/22/21 18:18 trimethoprim [From BACTRIM] Allergy Unknown ITCHING Verified 05/22/21 18:18 risperidone [From RISPERDAL] AdvReac Unknown TWITCHING Verified 04/01/22 10:03 seafood AdvReac Unknown Vomiting Verified 05/22/21 18:18 shellfish derived AdvReac Unknown VOMITING Verified 04/01/22 10:03 [SHELLFISH DERIVED] Assessment & Plan Assessment & Plan (1) Bipolar disorder: Status: Acute Code(s): F31.9 - Bipolar disorder, unspecified (2) Chronic post-traumatic stress disorder (PTSD): Status: Acute Code(s): F43.12 - Post-traumatic stress disorder, chronic (3) Polysubstance use disorder: Status: Acute Code(s): F19.90 - Other psychoactive substance use, unspecified, uncomplicated Plan Overall restart medications consistent with most recent discharge. Given well documented history, will not make adjustments to medications and primary team can discuss same especially around controlled substances. I spent minutes with the patient and/or on the patient floor today, greater than?50% of which was spent counseling/coordinating care.
[2022-04-27] MEDS: Lithium Carbonate ER 450 MG TABLET.ER 900 MG PO (19:35)
[2022-04-27] MEDS: Topiramate 100 MG TABLET 200 MG PO (19:37)
[2022-04-27 19:55] VITALS: BP 100/50; PULSE 63; TEMP 36.5
[2022-04-27] MEDS: Melatonin 3 MG TABLET 9 MG PO (22:49)
[2022-04-28] MEDS: Gabapentin 100 MG CAPSULE PO ×2 (04:11→15:27)
[2022-04-28] MEDS: Nicotine Polacrilex 2 MG GUM 4 MG BUCCAL ×4 (04:11→22:26)
[2022-04-28] MEDS: hydrOXYzine HCL 25 MG TABLET PO ×2 (05:54→15:27)
--- NOTE | 2022-04-28 06:34 | PC.NURSE ---
PT WAS SEEN BY [facility] WITH GEL PENS IN HER MOUTH. PT APPEARED TO BE ATTEMPTING TO INHALE THEM. PT DENIED ACTIONS. FIRST SHIFT WAS NOTIFIED BY RN FOR TEAM MEETING.
[2022-04-28] MEDS: Perphenazine 4 MG TABLET PO (07:51)
[2022-04-28] MEDS: Cyclobenzaprine HCl 5 MG TABLET PO ×2 (07:52→19:32)
[2022-04-28] MEDS: Topiramate 100 MG TABLET PO (07:52)
[2022-04-28] MEDS: Ferrous Sulfate 324 MG TABLET.DR PO (07:52)
[2022-04-28] MEDS: Thiamine HCL 100 MG TABLET PO (07:52)
[2022-04-28] MEDS: Multivitamin TABLET 1 TAB PO (07:52)
[2022-04-28] MEDS: Propranolol HCL 10 MG TABLET PO (07:52)
[2022-04-28] MEDS: clonazePAM 0.5 MG TABLET PO ×3 (07:52→19:33)
[2022-04-28] MEDS: Loratadine 10 MG TABLET PO (07:52)
[2022-04-28] MEDS: Gabapentin 300 MG CAPSULE PO (07:52)
[2022-04-28] MEDS: methADONE HCl 20 MG/2 ML ORAL.CONC 135 MG PO (07:53)
[2022-04-28 07:57] VITALS: BP 112/67; PULSE 64; RESP 16; TEMP 36.3; O2SAT 97
[2022-04-28] MEDS: Nystatin Cream 15 GM TUBE 1 APPL TOPICAL (08:14)
[2022-04-28] MEDS: Clotrimazole 1 % Cream 15 GM TUBE 1 APPL TOPICAL (08:14)
[2022-04-28] MEDS: Mineral Oil/Petrolatum,White 106 GM Tube 1 APPL TOPICAL (08:14)
[2022-04-28] MEDS: Nicotine 21 MG PATCH.TD24 TRANSDERMA (08:18)
[2022-04-28 08:38] LABS: Folate > 20.0 ng/mL (> or = 4.0); Vitamin B12 579 pg/mL (200-900)
[2022-04-28] MEDS: Propranolol HCL 20 MG TABLET PO (14:12)
[2022-04-28] MEDS: Gabapentin 400 MG CAPSULE PO ×2 (14:12→19:30)
[2022-04-28 16:30] VITALS: BP 93/52; PULSE 55; TEMP 36
[2022-04-28] MEDS: Acetaminophen 325 MG TABLET 650 MG PO (17:20)
--- NOTE | 2022-04-28 17:40 | P.PNPSI_ITS ---
Subjective Subjective Date of Service: 04/28/22 Reason For Visit: Polysubstance use, SI Subjective Notes: Conditional Voluntary Healthcare Proxy: No Guardianship: No Medical Problems Affecting Mental Status: No Interim History: Wrist abscess secondary to injecting substances prior to admission. Full med review. Carlota reports insomnia, anxiety, asking for ambien, klonopin increase, lyrica. Discussed events prior to admission. Pt left [facility] with a scheduled ride to [employer] and diverted the ride to [employer] to shop and use. Discussed significance of this illness and her loss of self to illness, It was just a few drugs, no need to get upset about it. Pt has no insight at this time. Discussed with team-will pursue [address] for longer term structured treatment. Medication Compliance: Yes Side effects from medications: No Attending Groups: Intermittent Review of Systems Acute medical concerns: No Medical Review of Systems: unchanged Review of Systems Reports behavioral changes Psychiatric: Reports abnormal sleep pattern, Reports anxiety, Reports behavioral changes, Reports depression, Reports difficulty concentrating, Reports irritability, Reports anhedonia, Reports mood swings, Reports panic attacks and Reports suicidal ideation (denies) Mental Status Exam Mental Status Exam Patient Appearance: Fatigued Patient Orientation: Person, Place, Time and Situation Level of Consciousness: Sedated and Alert Patient Behavior: Talkative, Resistive to Care and Good Eye Contact Mood Description: Anxious Affect Description: Apprehensive Patient Cognition Impaired: Yes Ability to Follow Directions: Good Speech Pattern: Spontaneous Speech and Poor Articulation Memory Description: Episodic Impaired Hallucinations: None Delusions: Not Present Perceptual Disturbances: Derealization Thought Process: Illogical Thought Content: positive for Circum[place] and positive for Suicidal Ideation (denies) Depressive Symptoms: Increased Anxiety, Increased Irritability, Difficulty Sleeping, Sleeping More Than Usual, Thoughts of /Suicide (denies), Low Self Esteem and Difficulty Concentrating Judgement: Poor Diagnostics Vital Signs (24Hr): Vital Signs - 24 hr 04/27/22 19:55 04/28/22 07:57 Temperature 97.7 F 97.4 F Pulse Rate 63 64 Respiratory Rate 16 Blood Pressure 100/50 L 112/67 Pulse Oximetry 97 Oxygen Delivery Method Room Air BMI result Body Mass Index 24.3 Labs Results: 04/25/22 22:01 04/25/22 22:01 Labs: Laboratory Results - last 48 hr 04/27/22 04/27/22 04/27/22 07:17 07:17 07:17 Estimat Average Glucose 103 Hemoglobin A1c % 5.2 Magnesium 1.8 Triglycerides 35 Cholesterol 90 LDL Cholesterol, Calc 35 HDL Cholesterol 48 D Vitamin B12 579 Folate > 20.0 TSH 2.41 Free T4 1.07 Medications Medications Current Medications Acetaminophen (Acetaminophen 325 Mg Tablet) 650 mg PO Q6H PRN PRN Reason: Headache/Pain Mild Scale (1-3) Last Admin: 04/28/22 17:20 Dose: 650 mg Al Hydroxide/Mg Hydroxide (Magnesium Hydrox/Alum Hydrox 30 Ml Oral.Susp) 30 ml PO Q6H PRN PRN Reason: Heartburn/Nausea Clonazepam (Clonazepam 0.5 Mg Tablet) 0.5 mg PO TID [facility] Last Admin: 04/28/22 14:12 Dose: 0.5 mg Clotrimazole (Clotrimazole 1 % Cream 15 Gm Tube) 1 appl TOPICAL BID [facility] Last Admin: 04/28/22 08:14 Dose: 1 appl Cyclobenzaprine HCl (Cyclobenzaprine Hcl 5 Mg Tablet) 5 mg PO BID [facility] Last Admin: 04/28/22 07:52 Dose: 5 mg Ferrous Sulfate (Ferrous Sulfate 324 Mg Tablet.) 324 mg PO DAILY [facility] Last Admin: 04/28/22 07:52 Dose: 324 mg Gabapentin (Gabapentin 100 Mg Capsule) 100 mg PO TID PRN PRN Reason: anxiety, nerve pain Last Admin: 04/28/22 15:27 Dose: 100 mg Gabapentin (Gabapentin 400 Mg Capsule) 400 mg PO TID [facility] Last Admin: 04/28/22 14:12 Dose: 400 mg Hydroxyzine HCl (Hydroxyzine Hcl 25 Mg Tablet) 25 mg PO Q6H PRN PRN Reason: Anxiety Last Admin: 04/28/22 15:27 Dose: 25 mg [place] Carbonate ([place] Carbonate Er 450 Mg Tablet.Er) 900 mg PO BEDTIME [facility] Last Admin: 04/27/22 19:35 Dose: 900 mg Loratadine (Loratadine 10 Mg Tablet) 10 mg PO DAILY [facility] Last Admin: 04/28/22 07:52 Dose: 10 mg Magnesium Hydroxide (Milk Of Magnesia 30 Ml Oral.Susp) 30 ml PO DAILY PRN PRN Reason: Constipation Melatonin (Melatonin 3 Mg Tablet) 9 mg PO BEDTIME [facility] Last Admin: 04/27/22 22:49 Dose: 9 mg Methadone HCl (Methadone Hcl 20 Mg/2 Ml Oral.Conc) 135 mg PO DAILY [facility] Last Admin: 04/28/22 07:53 Dose: 135 mg Multi-Ingred Cream/Lotion/Oil/Oint (Mineral Oil/Petrolatum,White 106 Gm Tube) 1 appl TOPICAL BID [facility] Last Admin: 04/28/22 08:14 Dose: 1 appl Multivitamins/Vitamin C (Multivitamin Tablet) 1 tab PO DAILY [facility] Last Admin: 04/28/22 07:52 Dose: 1 tab Nicotine (Nicotine 21 Mg Patch.Td24) 21 mg TRANSDERMA DAILY PRN PRN Reason: nicotine cravings Last Admin: 04/28/22 08:18 Dose: 21 mg Nicotine Polacrilex (Nicotine Polacrilex 2 Mg Gum) 4 mg BUCCAL Q2H PRN PRN Reason: Nicotine Cravings Last Admin: 04/28/22 14:13 Dose: 4 mg Nystatin (Nystatin Cream 15 Gm Tube) 1 appl TOPICAL BID [facility] Last Admin: 04/28/22 08:14 Dose: 1 appl Propranolol HCl (Propranolol Hcl 20 Mg Tablet) 20 mg PO 0900,1500 [facility]; Protocol Last Admin: 04/28/22 14:12 Dose: 20 mg Thiamine HCl (Thiamine Hcl 100 Mg Tablet) 100 mg PO DAILY [facility] Last Admin: 04/28/22 07:52 Dose: 100 mg Topiramate (Topiramate 100 Mg Tablet) 100 mg PO DAILY [facility] Last Admin: 04/28/22 07:52 Dose: 100 mg Topiramate (Topiramate 100 Mg Tablet) 200 mg PO BEDTIME [facility] Last Admin: 04/27/22 19:37 Dose: 200 mg Allergies Allergies Allergy/AdvReac Type Severity Reaction Status Date / Time quetiapine [From SEROQUEL] Allergy Severe THROAT Verified 04/01/22 10:03 SWELLING azithromycin [AZITHROMYCIN] Allergy Unknown Unknown Verified 04/01/22 10:03 erythromycin base Allergy Unknown RASH Verified 05/22/21 18:18 [ERYTHROMYCIN BASE] olanzapine [From ZYPREXA] Allergy Unknown PEDAL EDEMA Verified 05/22/21 18:18 sulfacetamide Allergy Unknown Unknown Verified 05/22/21 18:18 [From Sulfacet-R] sulfamethoxazole Allergy Unknown ITCHING Verified 05/22/21 18:18 [From BACTRIM] sulfur [From Sulfacet-R] Allergy Unknown Unknown Verified 05/22/21 18:18 trimethoprim [From BACTRIM] Allergy Unknown ITCHING Verified 05/22/21 18:18 risperidone [From RISPERDAL] AdvReac Unknown TWITCHING Verified 04/01/22 10:03 seafood AdvReac Unknown Vomiting Verified 05/22/21 18:18 shellfish derived AdvReac Unknown VOMITING Verified 04/01/22 10:03 [SHELLFISH DERIVED] trazodone AdvReac restless Verified 04/28/22 13:01 legs Assessment & Plan Assessment & Plan (1) Cocaine use: Status: Acute Code(s): F14.90 - Cocaine use, unspecified, uncomplicated (2) Opioid use disorder, moderate, in sustained remission, dependence: Status: Acute Code(s): F11.21 - Opioid dependence, in remission (3) Chronic post-traumatic stress disorder (PTSD): Status: Acute Code(s): F43.12 - Post-traumatic stress disorder, chronic (4) Bipolar 1 disorder, depressed: Status: Acute Code(s): F31.9 - Bipolar disorder, unspecified Plan Carlota is a 42 yo female with a hx of bipolar disorder, ptsd, and polysubstance abuse. Hx of TBI. She is on Methadone. Pt was recently discharged from [facility] on 04/15/22 due to pt malingering, drug seeking, and not engaging in treatment. Pt has continued to abuse illicit substances, currently homeless, non-adherent on medications including her methadone. Pt re-presented to [facility] ED on 04/17/22 due to feeling very depressed and endorsing SI with plan to OD on narcotics when she gets her SSI check. Pt admitted to using fentanyl and cocaine. Per [facility] crisis eval, pt using cocaine via insufflation and IV, used 4-5 bundles of heroin IV. Ethyl alcohol negative. Plan: consider meds per discharge from yesterday, will add gabapentin 100 mg TID PRN to aid in detoxing. Q15 min safety checks, CV Monitor response to medications. Monitor for safety in the milieu. Discharge on stabilization. Patient seen. Chart reviewed. Discussed with team. Obtain collateral contact info as needed 04/28/22 Increase Gabapentin to 400 mg tid Increase Propranolol to 20 mg bid Increase Klonopin to 0.5 mg tid Hold of Griselda Jenkins Request consideration for [address] I spent minutes with the patient and/or on the patient floor today, greater than?50% of which was spent counseling/coordinating care. Patient educated on: diagnosis, medication risk/benefits, substance abuse and therapeutic strategies Informed Consent: does not understand Reason for contiued inpatient stay Substantial Risk for: harm to self, inability to function and rapid decompensation
[2022-04-28 19:10] VITALS: BP 98/49; PULSE 58
[2022-04-28] MEDS: Melatonin 3 MG TABLET 9 MG PO (19:30)
[2022-04-28] MEDS: Topiramate 100 MG TABLET 200 MG PO (19:32)
[2022-04-28] MEDS: Lithium Carbonate ER 450 MG TABLET.ER 900 MG PO (19:32)
[2022-04-29] MEDS: Nicotine Polacrilex 2 MG GUM 4 MG BUCCAL ×2 (01:15→08:16)
[2022-04-29] MEDS: hydrOXYzine HCL 25 MG TABLET PO (01:15)
[2022-04-29] MEDS: Gabapentin 100 MG CAPSULE PO (02:52)
[2022-04-29 06:00] VITALS: BP 118/56; PULSE 63; RESP 63; TEMP 35.6; O2SAT 100
[2022-04-29] MEDS: methADONE HCl 20 MG/2 ML ORAL.CONC 135 MG PO (08:07)
[2022-04-29] MEDS: Ferrous Sulfate 324 MG TABLET.DR PO (08:09)
[2022-04-29] MEDS: Gabapentin 400 MG CAPSULE PO (08:09)
[2022-04-29] MEDS: Cyclobenzaprine HCl 5 MG TABLET PO (08:09)
[2022-04-29] MEDS: Propranolol HCL 20 MG TABLET PO (08:09)
[2022-04-29] MEDS: Topiramate 100 MG TABLET PO (08:09)
[2022-04-29] MEDS: clonazePAM 0.5 MG TABLET PO (08:09)
[2022-04-29] MEDS: Loratadine 10 MG TABLET PO (08:09)
[2022-04-29] MEDS: Thiamine HCL 100 MG TABLET PO (08:09)
[2022-04-29] MEDS: Multivitamin TABLET 1 TAB PO (08:09)
[2022-04-29] MEDS: Nicotine 21 MG PATCH.TD24 TRANSDERMA (08:16)
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
--- NOTE | 2022-04-29 15:51 | PM.PSYDC ---
DS: Providers Provider Date of Service: 04/29/22 Date of admission: 04/26/22 01:54 Date of discharge: 04/29/22 Primary care physician: Unknown Physician Admitting clinician: Michael Fonseca Attending physician on admission: Michael Fonseca Consults: 04/28/22 12:10 Consult to Hospitalist Routine Consulting Provider: Hospitalist Reason For Exam: pt injecting in R wrist-?cellulitis Attending physician on discharge: Rohit Jimenez Discharging clinician: Neli Orantes DS: Diagnosis Discharge Diagnosis (1) Cellulitis of right wrist: Status: Acute (2) Superficial thrombophlebitis: Status: Acute (3) Cutaneous candidiasis: Status: Acute (4) Vaginal discharge: Status: Acute DS: Medications Discharge Medications Home Medications: Previous Rx's Medication Instructions Recorded methadone 10 mg/mL oral 135 mg (13.5 mL) PO DAILY #0 mL 04/15/22 concentrate (Methadose) clonazepam 0.5 mg tablet 0.5 mg PO BID #14 tabs 04/23/22 clotrimazole 1 % topical cream 1 appl topical BID #1 applicator 04/23/22 cyclobenzaprine 5 mg tablet 5 mg PO BID #14 tabs 04/23/22 gabapentin 300 mg capsule 300 mg PO TID #21 caps 04/23/22 lithium carbonate 450 mg 900 mg PO BEDTIME #14 tabs 04/23/22 tablet,extended release loratadine 10 mg tablet 1 tab PO DAILY #7 tabs 04/23/22 [id number] 1 tab PO DAILY #30 tabs 04/23/22 fumarate 7.5 mg-folic acid 400 mcg tablet nicotine (polacrilex) 2 mg gum 4 mg buccal Q2H PRN Nicotine 04/23/22 Cravings #30 ea nicotine 21 mg/24 hr daily 21 mg transdermal DAILY PRN 04/23/22 transdermal patch nicotine cravings #30 ea nystatin 100,000 unit/gram topical 1 appl topical BID #1 applicator 04/23/22 cream perphenazine 4 mg tablet 4 mg PO BID #14 tabs 04/23/22 propranolol 10 mg tablet 10 mg PO BID #14 tabs 04/23/22 thiamine mononitrate (vit B1) 100 100 mg PO DAILY #30 tabs 04/23/22 mg tablet topiramate 100 mg tablet 1 tab PO DAILY #14 tabs 04/23/22 topiramate 200 mg tablet 1 tab PO BEDTIME #14 tabs 04/23/22 white petrolatum-mineral oil 1 appl topical BID #1 units 04/23/22 topical cream (Dermacerin topical cream) ferrous sulfate 324 mg (65 mg 324 mg PO DAILY #30 tabs 04/24/22 iron) tablet,delayed release naloxone 4 mg/actuation nasal 4 mg intranasal Q2M PRN opioid 04/24/22 spray (Narcan) overdose #2 ea Mental Status Exam Mental Status Exam Patient Appearance: Fatigued Patient Orientation: Person, Place, Time and Situation Level of Consciousness: Sedated and Alert Patient Behavior: Talkative, Resistive to Care and Good Eye Contact Mood Description: Anxious Affect Description: Apprehensive Patient Cognition Impaired: Yes Ability to Follow Directions: Good Speech Pattern: Spontaneous Speech and Poor Articulation Memory Description: Episodic Impaired Hallucinations: None Delusions: Not Present Perceptual Disturbances: Derealization Thought Process: Illogical Thought Content: positive for Circumstantial and positive for Suicidal Ideation (denies) Depressive Symptoms: Increased Anxiety, Increased Irritability, Difficulty Sleeping, Sleeping More Than Usual, Thoughts of /Suicide (denies), Low Self Esteem and Difficulty Concentrating Judgement: Poor Data Data Completed and Pending Completed studies during hospitalization [Text1]: 04/25/22 04/25/22 04/25/22 15:31 15:32 22:01 WBC 5.5 RBC 4.47 Hgb 13.1 Hct 39.0 MCV 87.2 MCH 29.3 MCHC 33.6 RDW 13.3 Plt Count 181 D MPV 9.4 Immature Gran % (Auto) 0.2 Neut % (Auto) 49.5 Lymph % (Auto) 38.1 [place] % (Auto) 9.0 Eos % (Auto) 2.7 Baso % (Auto) 0.5 Lymph # (Auto) 2.1 [place] # (Auto) 0.5 Eos # (Auto) 0.2 Baso # (Auto) 0.0 Abs Immat Gran (auto) 0.01 Absolute Neuts (auto) 2.7 Absolute Nucleated RBC 0.000 Nucleated RBC % (auto) 0.0 Sodium Potassium Chloride Carbon Dioxide Anion Gap BUN Creatinine Estim Creat Clear Calc Estimated GFR Random Glucose Estimat Average Glucose Hemoglobin A1c % Calcium Magnesium Triglycerides Cholesterol LDL Cholesterol, Calc HDL Cholesterol Vitamin B12 Folate TSH Free T4 Urine Color Urine Appearance Urine pH Ur Specific Leiter Urine Protein Urine Glucose (UA) Urine Ketones Urine Blood Urine Nitrite Ur Leukocyte Esterase Urine Opiates Screen POSITIVE H Urine Fentanyl Screen POSITIVE H Ur Barbiturates Screen Not Detected Ur Phencyclidine Scrn Not Detected Ur Amphetamines Screen Not Detected U Benzodiazepines Scrn POSITIVE H Urine Cocaine Screen POSITIVE H U Marijuana (THC) Screen Not Detected Ethyl Alcohol COVID-19 ([facility]ACK) Negative COVID-19 Clin Com See Note 04/25/22 04/26/22 04/27/22 22:01 16:15 07:17 WBC RBC Hgb Hct MCV MCH MCHC RDW Plt Count MPV Immature Gran % (Auto) Neut % (Auto) Lymph % (Auto) [place] % (Auto) Eos % (Auto) Baso % (Auto) Lymph # (Auto) [place] # (Auto) Eos # (Auto) Baso # (Auto) Abs Immat Gran (auto) Absolute Neuts (auto) Absolute Nucleated RBC Nucleated RBC % (auto) Sodium 136 Potassium 3.2 L Chloride 104 Carbon Dioxide 23 Anion Gap 12 BUN 13 Creatinine 0.74 Estim Creat Clear Calc 111.9 Estimated GFR > 60 Random Glucose 133 H Estimat Average Glucose 103 Hemoglobin A1c % 5.2 Calcium 9.3 D Magnesium Triglycerides Cholesterol LDL Cholesterol, Calc HDL Cholesterol Vitamin B12 Folate TSH Free T4 Urine Color YELLOW Urine Appearance CLEAR Urine pH 5.5 Ur Specific Leiter <= 1.005 Urine Protein NEG Urine Glucose (UA) NEG Urine Ketones NEG Urine Blood NEG Urine Nitrite NEG Ur Leukocyte Esterase NEG Urine Opiates Screen Urine Fentanyl Screen Ur Barbiturates Screen Ur Phencyclidine Scrn Ur Amphetamines Screen U Benzodiazepines Scrn Urine Cocaine Screen U Marijuana (THC) Screen Ethyl Alcohol < 10 COVID-19 ([facility]ACK) COVID-19 Clin Com 04/27/22 04/27/22 07:17 07:17 WBC RBC Hgb Hct MCV MCH MCHC RDW Plt Count MPV Immature Gran % (Auto) Neut % (Auto) Lymph % (Auto) [place] % (Auto) Eos % (Auto) Baso % (Auto) Lymph # (Auto) [place] # (Auto) Eos # (Auto) Baso # (Auto) Abs Immat Gran (auto) Absolute Neuts (auto) Absolute Nucleated RBC Nucleated RBC % (auto) Sodium Potassium Chloride Carbon Dioxide Anion Gap BUN Creatinine Estim Creat Clear Calc Estimated GFR Random Glucose Estimat Average Glucose Hemoglobin A1c % Calcium Magnesium 1.8 Triglycerides 35 Cholesterol 90 LDL Cholesterol, Calc 35 HDL Cholesterol 48 D Vitamin B12 579 Folate > 20.0 TSH 2.41 Free T4 1.07 Urine Color Urine Appearance Urine pH Ur Specific Leiter Urine Protein Urine Glucose (UA) Urine Ketones Urine Blood Urine Nitrite Ur Leukocyte Esterase Urine Opiates Screen Urine Fentanyl Screen Ur Barbiturates Screen Ur Phencyclidine Scrn Ur Amphetamines Screen U Benzodiazepines Scrn Urine Cocaine Screen U Marijuana (THC) Screen Ethyl Alcohol COVID-19 ([facility]) COVID-19 Clin Com DS: Summary Hospital Course Hospital Course: Admission to adult psychiatry for exacerbation of polysubstance abuse disorder, opiate use disorder, bipolar disorder, PTSD. Carlota has had several recent admissions. She had refused placements, accepted admission to [facility], then diverted her transportation upon last discharge and returned to substance use. Section 35 was applied for during this admission and granted by the court. Time spent discussing smoking cessation with patient: 3 to 10 minutes Status at Discharge Functional status at discharge: independent ambulation Overall status at discharge: patient is not back to baseline Time Spent with Patient Time attestation: Total time spent providing and/or coordinating discharge services: 40 Time spent: Greater than 30 minutes Discharge Plan Discharge Patient Disposition: Xfer Other Discharge Diagnosis: Bipolar Disorder PTSD Opiate Use Disorder-currently on Methadone Polysubstance Abuse Referrals: [facility] [Other] - 1 Week Discharge Medications: New melatonin 3 mg Tablet 9 mg PO BEDTIME Qty: 0 0RF gabapentin 100 mg Capsule 100 mg PO TID PRN (Reason: anxiety, nerve pain) Qty: 0 0RF Continued methadone [Methadose] 10 mg/mL Concentrate 135 mg PO DAILY Qty: 0 0RF Rx Instructions: Partial Fill upon patient request. nicotine (polacrilex) 2 mg Gum 4 mg buccal Q2H PRN (Reason: Nicotine Cravings) Qty: 30 0RF clonazepam 0.5 mg Tablet 0.5 mg PO BID Qty: 14 4RF propranolol 10 mg Tablet 10 mg PO BID Qty: 14 4RF Protocol: Hold for SBP/HR < HOLD for SBP < : 90 HOLD for HR < : 60 gabapentin 300 mg Capsule 300 mg PO TID Qty: 21 4RF cyclobenzaprine 5 mg Tablet 5 mg PO BID Qty: 14 0RF nystatin 100,000 unit/gram Cream 1 appl topical BID Qty: 1 0RF Protocol: Apply to: Apply to: Groin rash lithium carbonate 450 mg Tablet Extended Release 900 mg PO BEDTIME Qty: 14 4RF nicotine 21 mg/24 hr Patch 24 Hour 21 mg transdermal DAILY PRN (Reason: nicotine cravings) Qty: 30 0RF topiramate 200 mg tablet 1 tab PO BEDTIME Qty: 14 1RF topiramate 100 mg tablet 1 tab PO DAILY Qty: 14 1RF clotrimazole 1 % cream 1 appl topical BID Qty: 1 0RF loratadine 10 mg tablet 1 tab PO DAILY Qty: 7 4RF Dermacerin Cream 1 appl TOPICAL BID Qty: 1 0RF thiamine mononitrate (vit B1) 100 mg Tablet 100 mg PO DAILY Qty: 30 0RF [id number] fum-folic ac 7.5 mg iron-400 mcg tablet 1 tab PO DAILY Qty: 30 0RF ferrous sulfate 324 mg (65 mg iron) Tablet,Delayed Release (Dr/Ec) 324 mg PO DAILY Qty: 30 0RF naloxone [Narcan] 4 mg/actuation spray,non-aerosol 4 mg intranasal Q2M PRN (Reason: opioid overdose) Qty: 2 0RF Rx Instructions: spray 1 dose into ONE nostril; alternate nostrils w each dose until help arrives Discontinued perphenazine 4 mg Tablet 4 mg PO BID Qty: 14 4RF Discharge Orders: Discharge Order (Routine); Ordered 04/29/22 Ordered By: Neli Orantes Diet: Advance to usual diet Activity on Discharge: As tolerated Stand Alone Forms: Patient Portal Discharge page, Community Support Care Plan Goals: Work on sobriety Mood stabilization Health Concerns: Bipolar Disorder PTSD Opiate use disorder Polysubstance Abuse Plan of Treatment: Section 35 petition. Carlota has had a few admissions recently, refused [facility] program, was accepted to [facility] and diverted her ride to go shopping and resume drug use-she chose not to go to the program. Section 35 is filed as she is unable to control her use and using drugs and medication is her only focus at this point. Assessment: non-psychotic, non-suicidal Discharge Date/Time: 04/29/22 13:39
== END 2022-04-29 13:39 | disposition other institution (70) | DRG 753 ==
LOC: HO.ED 16:37 → HO.PM5 04-26 02:05
PROVIDERS: Nurse Practitioner Family; Admitting Provider Registered Nurse; Emergency Provider Emergency Medicine; Visit Provider Clinical Nurse Specialist Psychiatric/Mental Health, Adult
DX: F31.9 Bipolar disorder, unspecified (principal); R45.851 Suicidal ideations; I80.9 Phlebitis and thrombophlebitis of unspecified site; F11.20 Opioid dependence, uncomplicated; F43.12 Post-traumatic stress disorder, chronic; B37.2 Candidiasis of skin and nail; N76.0 Acute vaginitis; Z20.822 Contact with and (suspected) exposure to COVID-19; Z59.02 Unsheltered homelessness; Z87.891 Personal history of nicotine dependence; Z91.14 Patient's other noncompliance with medication regimen; Z87.820 Personal history of traumatic brain injury; Z91.013 Allergy to seafood; Z88.1 Allergy status to other antibiotic agents; Z88.2 Allergy status to sulfonamides; Z88.8 Allergy status to other drugs, medicaments and biological substances; Z79.899 Other long term (current) drug therapy
CPT/HCPCS: 36415; 80048; 80061; 80307; 81003; 82077; 82607; 82746; 83036; 83735; 84439; 84443; 85025; 87635; 93005; 99285

== ENCOUNTER 2022-06-07 12:47 | Inpatient (IN) | payer OTHER, SELFPAY ==
--- NOTE | ~2022-06-07 | XR_ITS ---
EXAMINATION: XR CHEST CLINICAL INFORMATION: Shortness of breath COMPARISON: 04/03/2021 TECHNIQUE: Frontal view of the chest was obtained. FINDINGS: No acute finding. Lung leong are grossly clear. The cardiac silhouette is felt to be comparable. The hilar structures are comparable. There is no effusion. XR/XR chest 1V IMPRESSION: No acute finding
--- NOTE | ~2022-06-07 | CT_ITS ---
EXAMINATION: CT LUMBAR SPINE WITHOUT CONTRAST CLINICAL INFORMATION: Low back pain COMPARISON: CT lumbar spine 04/03/2021. Correlation MRI 01/03/2021 TECHNIQUE: Axial imaging. Sagittal and coronal reconstructions. This CT examination was performed using dose optimization techniques as appropriate, variously including the following: *Automated exposure control *Adjustment of mA and/or kV according to patient size (this includes techniques or standardized protocols for targeted exams where dose is matched to indication/reason for exam; i.e. extremities or head) *Use of iterative reconstruction technique DLP; 546 mGy-cm FINDINGS: Vertebral body alignment is anatomic in the sagittal plane. No acute fracture or subluxation is seen. Scattered mild facet degeneration. The visualized retroperitoneal organs appear unremarkable. No adenopathy seen in the retroperitoneum. The paraspinal musculature appears symmetric, within normal limits. Limited evaluation of the intervertebral discs/soft tissues on CT. . There appears to be a posterior disc bulge at L3-L4, with mild encroachment of bilateral neural foramen. Central canal is grossly patent. At L4-L5, there appears to be a broad-based posterior disc bulge, with narrowing of the inferior aspect of bilateral neural foramen. This may be more prominent as compared to the prior MRI study. At L5-S1, there appears to be a question broad-based posterior disc bulge. CT/CT lumbar spine wo IV con IMPRESSION: -No CT evidence of acute fracture or subluxation. - Limited evaluation in the disc spaces on CT. Mild L3-L4 spondylosis, with posterior disc bulge, also seen on the previous MRI. At L4-L5, posterior disc bulge with narrowing of bilateral neural foramen, question increased prominence as compared to the previous MRI. At L5-S1, question posterior disc bulge, evaluation limited. Consider further evaluation with MRI.
--- NOTE | ~2022-06-07 | US_ITS ---
EXAMINATION: US VENOUS ULTRASOUND WITH DOPPLER LOWER EXTREMITY, BILATERAL CLINICAL INFORMATION: Pain COMPARISON: 05/11/2021 and 04/07/2021 TECHNIQUE: Ultrasound of the deep veins is performed from the hip to the calf with compression sonography and color and pulse Doppler assessment. Spectral analysis with color-flow imaging is performed. FINDINGS: RIGHT: There is normal venous compression and respiratory variation and augmented flow. The visualized common femoral vein, superficial femoral vein, profunda femoral vein, popliteal vein, and the trifurcation region shows no evidence of deep venous thrombosis. There is no significant popliteal fossa cyst. LEFT: There is normal venous compression and respiratory variation and augmented flow. The visualized common femoral vein, superficial femoral vein, profunda femoral vein, popliteal vein, and the trifurcation region shows no evidence of deep venous thrombosis. There is no significant popliteal fossa cyst. If the patient's symptoms persist, followup ultrasound in 5 days 7 days might be of value to exclude proximal propagation from a non-visualized calf vein. US/US venous duplex LE BI IMPRESSION: No DVT demonstrated in the bilateral lower extremity.
[2022-06-07 12:52] VITALS: BP 120/71; BP 133/71; PULSE 100; PULSE 87; RESP 18; TEMP 36.9; O2SAT 98; O2SAT 99; BMI 35.2
--- NOTE | 2022-06-07 12:59 | ED_ITS ---
HPI - General Adult General Chief complaint: Back Pain/Injury <ALISON Bradley - Last Filed: 06/07/22 17:55> Stated complaint: COCAINEBACK PAIN <ALISON Bradley - Last Filed: 06/07/22 17:55> Time Seen by Provider: 06/07/22 12:51 <ALISON Bradley - Last Filed: 06/07/22 17:55> Source: patient and EMS <ALISON Bradley - Last Filed: 06/07/22 17:55> Mode of arrival: EMS <ALISON Bradley Last Filed: 06/07/22 17:55> Limitations: no limitations <ALISON Bradley - Last Filed: 06/07/22 17:55> History of Present Illness HPI narrative: This is a 42-year-old female past medical history significant for polysubstance abuse, bipolar disorder presenting to the emergency department with complaints of body aches and pains, shortness of breath status post using drugs. Patient tells me that EMS was called because patient was ambulating to get drugs and she started experiencing head to toe body aches and pains worse to the lumbar region and lower extremities. Patient tells me that within the past 24 hours she has used 2000 dollars worth of cocaine, she tells me her body feels like the time she had rhabdo. She explains to me that when she is using drugs she stays in 1 spot without moving and put herself in weird contortion assist positions. Patient tells me she is having slight shortness of breath however this is normal for her each time she uses cocaine. Denies SI, HI, visual, auditory and tactile hallucinations. Denies any other medical complaints at this time including urinary/bowel incontinence/retention, saddle paresthesias, numbness, tingling chest pain, nausea, vomiting, abdominal pain, headache, vision changes, dizziness, weakness, fevers, chills. Patient does have a history of IV drug abuse. To note upon EMS his arrival to patient patient was ambulating without difficulties. <ALISON Bradley Last Filed: 06/07/22 17:55> Related Data Home medications: Home Medications Medication Instructions Recorded Confirmed buspirone 15 mg tablet 1 tab PO TID 06/07/22 06/07/22 clonazepam 0.5 mg tablet 0.5 mg PO BID PRN Anxiety 06/07/22 06/07/22 diclofenac potassium 50 mg tablet 1 tab PO BID 06/07/22 06/07/22 gabapentin 800 mg tablet 1 tab PO QID 06/07/22 06/07/22 hydroxyzine HCl 25 mg tablet 1 tab PO Q6H PRN Anxiety 06/07/22 06/07/22 loratadine 10 mg tablet 1 tab PO DAILY PRN Allergy Symptoms 06/07/22 06/07/22 propranolol 10 mg tablet 10 mg PO Q6H PRN Anxiety 06/07/22 06/07/22 soap (Cetaphil Bar) 1 appl topical QID PRN skin 06/07/22 06/07/22 protectant topiramate 200 mg tablet 1 tab PO BID 06/07/22 06/07/22 Previous Rx's Medication Instructions Recorded methadone 10 mg/mL oral 135 mg (13.5 mL) PO DAILY #0 mL 04/15/22 concentrate (Methadose) cyclobenzaprine 5 mg tablet 5 mg PO BID #14 tabs 04/23/22 [id number] 1 tab PO DAILY #30 tabs 04/23/22 fumarate 7.5 mg-folic acid 400 mcg tablet nicotine (polacrilex) 2 mg gum 4 mg buccal Q2H PRN Nicotine 04/23/22 Cravings #30 ea nicotine 21 mg/24 hr daily 21 mg transdermal DAILY PRN 04/23/22 transdermal patch nicotine cravings #30 ea thiamine mononitrate (vit B1) 100 100 mg PO DAILY #30 tabs 04/23/22 mg tablet naloxone 4 mg/actuation nasal 4 mg intranasal Q2M PRN opioid 04/24/22 spray (Narcan) overdose #2 ea <ALISON Bradley - Last Filed: 06/07/22 17:55> Allergies/adverse reactions: Allergies Allergy/AdvReac Type Severity Reaction Status Date / Time quetiapine [From SEROQUEL] Allergy Severe THROAT Verified 04/01/22 10:03 SWELLING azithromycin [AZITHROMYCIN] Allergy Unknown Unknown Verified 04/01/22 10:03 erythromycin base Allergy Unknown RASH Verified 05/22/21 18:18 [ERYTHROMYCIN BASE] olanzapine [From ZYPREXA] Allergy Unknown PEDAL EDEMA Verified 05/22/21 18:18 sulfacetamide Allergy Unknown Unknown Verified 05/22/21 18:18 [From Sulfacet-R] sulfamethoxazole Allergy Unknown ITCHING Verified 05/22/21 18:18 [From BACTRIM] sulfur [From Sulfacet-R] Allergy Unknown Unknown Verified 05/22/21 18:18 trimethoprim [From BACTRIM] Allergy Unknown ITCHING Verified 05/22/21 18:18 risperidone [From RISPERDAL] AdvReac Unknown TWITCHING Verified 04/01/22 10:03 seafood AdvReac Unknown Vomiting Verified 05/22/21 18:18 shellfish derived AdvReac Unknown VOMITING Verified 04/01/22 10:03 [SHELLFISH DERIVED] trazodone AdvReac restless Verified 04/28/22 13:01 legs <ALISON Bradley - Last Filed: 06/07/22 17:55> Review of Systems Review of Systems: Constitutional : No Weight loss, No Fever, No Chills, No Fatigue, No Malaise ENT/Mouth : No sore throat, No Rhinorrhea Eyes: No Eye Pain, No Swelling, No Redness Cardiovascular : No Chest Pain, + SOB, No Dyspnea on Exertion, No Orthopnea, No Edema, No Palpitations Respiratory : No Cough, No Sputum, No Wheezing Gastrointestinal : No Nausea, No Vomiting, No Diarrhea, No Constipation, No abdominal Pain, No Hematochezia, No Melena Genitourinary : No Dysuria, No Urinary Frequency, No Hematuria, Musculoskeletal : No joint pain, + Myalgias, No Joint Swelling Skin : No Skin Lesions, No rash Neuro : No Weakness, No Numbness, No Dizziness, No Headache Psych : No Anxiety/Panic, No Depression All other systems reviewed and are negative <ALISON Bradley Last Filed: 06/07/22 17:55> Yes all other systems are reviewed and are negative <ALISON Bradley Last Filed: 06/07/22 17:55> PMFSH Past Medical History Attestation statement: The following information was validated with the patient. <ALISON Bradley Last Filed: 06/07/22 17:55> Source: old records reviewed and nursing notes reviewed <ALISON Bradley - Last Filed: 06/07/22 17:55> Medical History: Medical History Chronic post-traumatic stress disorder (PTSD) Opioid dependence Opioid use disorder, moderate, in sustained remission, dependence Substance abuse Substance abuse <ALISON Bradley - Last Filed: 06/07/22 17:55> Social History Social History: Social History Household Members: None Housing: Homeless Housing Other:: patient states she is homeless Do you presently have visiting nurse or other home services: No Unable to assess alcohol history related to: Refusing to respond Alcohol intake: current Alcohol intake frequency: does not drink Patient Tobacco Use Status: Former Tobacco user Tobacco use type: Cigarette Cigarette Packs Per Day: 1 Cigarettes Per Day: 20.0 Years Smoked: 10+ e-Cigarette/Vaping Use: Former Use Second Hand Smoke Exposure: Yes Substance Use Type: Crack/Cocaine, Heroin and Opiates Advance Directives: Yes Advance Directives on File: Yes Advance Directives Date on File: 12/28/20 service: No Current occupational status: disabled Sexual orientation: Did not discuss <ALISON Bradley - Last Filed: 06/07/22 17:55> Physical Exam ED Vital Signs: Vital Signs - 24 hr 06/07/22 12:52 06/07/22 15:42 06/07/22 20:07 Temperature 98.5 F Pulse Rate 87 76 86 Respiratory Rate 18 16 16 Blood Pressure 120/71 99/44 L 93/51 L Pulse Oximetry 98 97 97 Oxygen Delivery Method Room Air Room Air Room Air BMI result Body Mass Index 35.2 vss <ALISON Bradley - Last Filed: 06/07/22 17:55> Vital Signs - 24 hr 06/07/22 12:52 06/07/22 15:42 06/07/22 20:07 Temperature 98.5 F Pulse Rate 87 76 86 Respiratory Rate 18 16 16 Blood Pressure 120/71 99/44 L 93/51 L Pulse Oximetry 98 97 97 Oxygen Delivery Method Room Air Room Air Room Air BMI result Body Mass Index 35.2 <ALISON Echevarria - Last Filed: 06/07/22 18:33> Vital Signs - 24 hr 06/07/22 12:52 06/07/22 15:42 06/07/22 20:07 Temperature 98.5 F Pulse Rate 87 76 86 Respiratory Rate 18 16 16 Blood Pressure 120/71 99/44 L 93/51 L Pulse Oximetry 98 97 97 Oxygen Delivery Method Room Air Room Air Room Air BMI result Body Mass Index 35.2 <Sukhdev Palacios MD - Last Filed: 06/07/22 21:26> Appearance: Alert.? Oriented X3.? No acute distress.? Head: Normocephalic, atraumatic, no step-offs or deformities Eyes: Pupils equal, round and reactive to light.? ENT: Pharynx normal.? Neck: Normal inspection.? Neck supple.? CVS: Normal heart rate and rhythm.? Pulses normal.? Respiratory: No respiratory distress.? Breath sounds normal.? Abdomen: Soft and nontender.? Skin: Skin warm and dry.? Normal skin color.? Normal skin turgor.? Extremities: No lower extremity edema.? No calf ttp. 5/5 strength to bilateral upper and lower extremities Back: No midline tenderness, + bilateral lumbar paraspinous tenderness, no C- spine tenderness, full range of motion, no CVA tenderness bilaterally Neuro: Oriented X 3.? No motor deficit.? No sensory deficit. CN 2-12 intact . No saddle paresthesias. <ALISON Bradley - Last Filed: 06/07/22 17:55> Course Reevaluation(s) Reevaluation #1: CBC appears to be around patient's baseline. Patient difficult stick and now allowing nursing to try again. Chemistry pending. Sign-out will be given to Pina FORRESTER pending re-evaluation, labs including ESR, CRP, CPK, chemistry, KYLE, urine. Patient needs to be re-evaluated, repeat neuro exam should be done and patient needs to ambulate around the department. U nlikely cauda equina. Low suspicion for epidural abscess. <ALISON Bradley - Last Filed: 06/07/22 17:55> Time: 17:54 <ALISON Bradley Last Filed: 06/07/22 17:55> Reevaluation #2: - labs returned reviewed patient platelet count 115 similar compared to priors. - potassium 3.2. - carbon dioxide 21. - BUN 17. - AST 286. - ALT 90. - Total CPK 20,167. - Otherwise all other labs are within normal limits. - Patient negative for EtOH. - Patient negative for COVID. - patient reports that when she uses drugs she sits down in a weird position and she arches her back and she does not move and she did this for at least 24 hours. I do not believe this is compartment syndrome as patient is legs are soft. Will admit at this time to Dr. Saeed for drug abuse with rhabdomyolysis. 3 L of IV fluids ordered at this time along with po potassium. Patient understands agrees with this plan. <ALISON Echevarria - Last Filed: 06/07/22 18:33> Time: 18: <ALISON Echevarria - Last Filed: 06/07/22 18:33> Reevaluation #3: A CT scan of patient's lumbar spine was ordered without IV contrast. The patient has refused this test multiple times, the patient is capable of u nderstanding the risks and benefits a refusal. She states that she will consider getting the test in the morning but will absolutely not get a CT scan this evening. <Sukhdev Palacios MD - Last Filed: 06/07/22 21:26> Time: 21:25 <Sukhdev Palacios MD - Last Filed: 06/07/22 21:26> Medical Decision Making [facility] Narrative Medical decision making narrative: [id number] 42-year-old female presents status post using 2000 dollars worth of cocaine in the past 24 hours, patient reports she has not moved much within the past 24 hours, reporting diffuse body aches and pains worse to the lumbar region bilaterally and lower extremities x1 day. Patient was brought in by EMS Physical examination significant for bilateral lumbar paraspinous tenderness, there is no midline tenderness, step-offs or deformities. Concerns for rhabdomyolysis, will rule out pneumonia due to shortness of breath although unlikely. Will also rule out infection, electrolyte abnormalities, UTI. I do not suspect that this is cauda equina or epidural abscess. Plan at this time is labs, urine. <ALISON Bradley - Last Filed: 06/07/22 17:55> Medical Records Medical records reviewed: Yes I reviewed the patient's medical records. <ALISON Bradley - Last Filed: 06/07/22 17:55> Lab Data Lab results reviewed: Yes I reviewed the patient's lab results. <ALISON Bradley - Last Filed: 06/07/22 17:55> Result diagrams: : 06/07/22 17:26 06/07/22 17:26 <ALISON Bradley - Last Filed: 06/07/22 17:55> Labs: Lab Results 06/07/22 06/07/22 06/07/22 Range/Units 13:47 17:26 17:26 WBC 5.4 (4.8-10.8) X10*3/uL RBC 4.15 L (4.20-5.50) X10*6/uL Hgb 12.5 (12.0-16.0) g/dl Hct 35.8 L (37.0-47.0) % MCV 86.3 (80.0-98.0) fL MCH 30.1 (27.0-33.0) pg MCHC 34.9 (31.0-35.0) g/dl RDW 12.6 (11.0-16.0) % Plt Count 115 L D (160-400) X10*3/uL MPV 10.0 (9.4-12.3) fL Immature Gran % (Auto) 0.4 (0.0-0.4) % Neut % (Auto) 56.6 (45-73) % Lymph % (Auto) 35.5 (20-40) % [place] % (Auto) 6.5 (2-11) % Eos % (Auto) 0.6 (0-4) % Baso % (Auto) 0.4 (0-2) % Lymph # (Auto) 1.9 (1.2-4.9) X10*3/uL [place] # (Auto) 0.4 (0.1-1.2) X10*3/uL Eos # (Auto) 0.0 (0.0-0.4) X10*3/uL Baso # (Auto) 0.0 (0.0-0.2) X10*3/uL Abs Immat Gran (auto) 0.02 (0.00-0.03) X10*3/uL Absolute Neuts (auto) 3.1 (2.0-8.3) x10*3/uL Absolute Nucleated RBC 0.000 (0.0-0.012) X10*3/uL Nucleated RBC % (auto) 0.0 (0.0-0.2) /100WBC ESR 7 (0-20) MM/HR Sodium (135-145) mmol/L Potassium (3.3-5.1) mmol/L Chloride (96-108) mmol/L Carbon Dioxide (22-29) mmol/L Anion Gap (12-20) BUN (9-16) mg/dL Creatinine (0.5-1.4) mg/dL Estim Creat Clear Calc Estimated GFR Random Glucose (60-115) mg/dL Calcium (8.4-10.2) mg/dL Magnesium (1.6-2.6) mg/dL Total Bilirubin (0.0-1.0) mg/dL AST (5-31) U/L ALT (0-31) U/L Alkaline Phosphatase (39-117) U/L Total Creatine Kinase (26-140) U/L C-Reactive Protein (< or = 0.50) mg/dL Total Protein (6.5-8.0) g/dL Albumin (3.5-5.0) g/dL Beta HCG, Quant mIU/mL Urine Color Urine Appearance Urine pH (5.0-9.0) Ur Specific Bim (1.005-1.025) Urine Protein (Neg-Trace) mg/dL Urine Glucose (UA) (Negative) mg/dL Urine Ketones (Negative) mg/dL Urine Blood (Negative) Urine Nitrite (Negative) Ur Leukocyte Esterase (Negative) Urine RBC (0-2) /HPF Urine WBC (0-5) /HPF Ur Squamous Epith Cells (0-2) /HPF Urine Bacteria (None Seen) Hyaline Casts (0-2) /LPF Urine Opiates Screen (Not Detect) Urine Fentanyl Screen (Not Detect) Ur Barbiturates Screen (Not Detect) Ur Phencyclidine Scrn (Not Detect) Ur Amphetamines Screen (Not Detect) U Benzodiazepines Scrn (Not Detect) Urine Cocaine Screen (Not Detect) U Marijuana (THC) Screen (Not Detect) Ethyl Alcohol mg/dL COVID-19 (ZACK) Negative (Negative) COVID-19 Clin Com See Note 06/07/22 06/07/22 06/07/22 Range/Units 17:26 17:26 20:05 WBC (4.8-10.8) X10*3/uL RBC (4.20-5.50) X10*6/uL Hgb (12.0-16.0) g/dl Hct (37.0-47.0) % MCV (80.0-98.0) fL MCH (27.0-33.0) pg MCHC (31.0-35.0) g/dl RDW (11.0-16.0) % Plt Count (160-400) X10*3/uL MPV (9.4-12.3) fL Immature Gran % (Auto) (0.0-0.4) % Neut % (Auto) (45-73) % Lymph % (Auto) (20-40) % [place] % (Auto) (2-11) % Eos % (Auto) (0-4) % Baso % (Auto) (0-2) % Lymph # (Auto) (1.2-4.9) X10*3/uL [place] # (Auto) (0.1-1.2) X10*3/uL Eos # (Auto) (0.0-0.4) X10*3/uL Baso # (Auto) (0.0-0.2) X10*3/uL Abs Immat Gran (auto) (0.00-0.03) X10*3/uL Absolute Neuts (auto) (2.0-8.3) x10*3/uL Absolute Nucleated RBC (0.0-0.012) X10*3/uL Nucleated RBC % (auto) (0.0-0.2) /100WBC ESR (0-20) MM/HR Sodium 137 (135-145) mmol/L Potassium 3.2 L (3.3-5.1) mmol/L Chloride 105 (96-108) mmol/L Carbon Dioxide 21 L (22-29) mmol/L Anion Gap 14 (12-20) BUN 17 H (9-16) mg/dL Creatinine 0.75 (0.5-1.4) mg/dL Estim Creat Clear Calc 113.6 Estimated GFR > 60 Random Glucose 114 (60-115) mg/dL Calcium 8.7 D (8.4-10.2) mg/dL Magnesium 2.1 (1.6-2.6) mg/dL Total Bilirubin 0.9 (0.0-1.0) mg/dL AST 286 H (5-31) U/L ALT 90 H (0-31) U/L Alkaline Phosphatase 78 (39-117) U/L Total Creatine Kinase 60142 H D (26-140) U/L C-Reactive Protein 0.09 (< or = 0.50) mg/dL Total Protein 6.5 (6.5-8.0) g/dL Albumin 4.0 (3.5-5.0) g/dL Beta HCG, Quant < 2 mIU/mL Urine Color Urine Appearance Urine pH (5.0-9.0) Ur Specific Bim (1.005-1.025) Urine Protein (Neg-Trace) mg/dL Urine Glucose (UA) (Negative) mg/dL Urine Ketones (Negative) mg/dL Urine Blood (Negative) Urine Nitrite (Negative) Ur Leukocyte Esterase (Negative) Urine RBC (0-2) /HPF Urine WBC (0-5) /HPF Ur Squamous Epith Cells (0-2) /HPF Urine Bacteria (None Seen) Hyaline Casts (0-2) /LPF Urine Opiates Screen POSITIVE H (Not Detect) Urine Fentanyl Screen POSITIVE H (Not Detect) Ur Barbiturates Screen Not Detected (Not Detect) Ur Phencyclidine Scrn Not Detected (Not Detect) Ur Amphetamines Screen Not Detected (Not Detect) U Benzodiazepines Scrn Not Detected (Not Detect) Urine Cocaine Screen POSITIVE H (Not Detect) U Marijuana (THC) Screen Not Detected (Not Detect) Ethyl Alcohol < 10 mg/dL COVID-19 (ZACK) (Negative) COVID-19 Clin Com 06/07/22 Range/Units 20:05 WBC (4.8-10.8) X10*3/uL RBC (4.20-5.50) X10*6/uL Hgb (12.0-16.0) g/dl Hct (37.0-47.0) % MCV (80.0-98.0) fL MCH (27.0-33.0) pg MCHC (31.0-35.0) g/dl RDW (11.0-16.0) % Plt Count (160-400) X10*3/uL MPV (9.4-12.3) fL Immature Gran % (Auto) (0.0-0.4) % Neut % (Auto) (45-73) % Lymph % (Auto) (20-40) % [place] % (Auto) (2-11) % Eos % (Auto) (0-4) % Baso % (Auto) (0-2) % Lymph # (Auto) (1.2-4.9) X10*3/uL [place] # (Auto) (0.1-1.2) X10*3/uL Eos # (Auto) (0.0-0.4) X10*3/uL Baso # (Auto) (0.0-0.2) X10*3/uL Abs Immat Gran (auto) (0.00-0.03) X10*3/uL Absolute Neuts (auto) (2.0-8.3) x10*3/uL Absolute Nucleated RBC (0.0-0.012) X10*3/uL Nucleated RBC % (auto) (0.0-0.2) /100WBC ESR (0-20) MM/HR Sodium (135-145) mmol/L Potassium (3.3-5.1) mmol/L Chloride (96-108) mmol/L Carbon Dioxide (22-29) mmol/L Anion Gap (12-20) BUN (9-16) mg/dL Creatinine (0.5-1.4) mg/dL Estim Creat Clear Calc Estimated GFR Random Glucose (60-115) mg/dL Calcium (8.4-10.2) mg/dL Magnesium (1.6-2.6) mg/dL Total Bilirubin (0.0-1.0) mg/dL AST (5-31) U/L ALT (0-31) U/L Alkaline Phosphatase (39-117) U/L Total Creatine Kinase (26-140) U/L C-Reactive Protein (< or = 0.50) mg/dL Total Protein (6.5-8.0) g/dL Albumin (3.5-5.0) g/dL Beta HCG, Quant mIU/mL Urine Color Yellow Urine Appearance Clear Urine pH 5.5 (5.0-9.0) Ur Specific Bim 1.015 (1.005-1.025) Urine Protein Trace (Neg-Trace) mg/dL Urine Glucose (UA) Negative (Negative) mg/dL Urine Ketones 15 (Negative) mg/dL Urine Blood Large (3+) H (Negative) Urine Nitrite Negative (Negative) Ur Leukocyte Esterase Trace H (Negative) Urine RBC 0-2 (0-2) /HPF Urine WBC 0-5 (0-5) /HPF Ur Squamous Epith Cells 0-2 (0-2) /HPF Urine Bacteria None Seen (None Seen) Hyaline Casts 0-2 (0-2) /LPF Urine Opiates Screen (Not Detect) Urine Fentanyl Screen (Not Detect) Ur Barbiturates Screen (Not Detect) Ur Phencyclidine Scrn (Not Detect) Ur Amphetamines Screen (Not Detect) U Benzodiazepines Scrn (Not Detect) Urine Cocaine Screen (Not Detect) U Marijuana (THC) Screen (Not Detect) Ethyl Alcohol mg/dL COVID-19 (ZACK) (Negative) COVID-19 Clin Com <ALISON Bradley - Last Filed: 06/07/22 17:55> Lab Results 06/07/22 06/07/22 06/07/22 Range/Units 13:47 17:26 17:26 WBC 5.4 (4.8-10.8) X10*3/uL RBC 4.15 L (4.20-5.50) X10*6/uL Hgb 12.5 (12.0-16.0) g/dl Hct 35.8 L (37.0-47.0) % MCV 86.3 (80.0-98.0) fL MCH 30.1 (27.0-33.0) pg MCHC 34.9 (31.0-35.0) g/dl RDW 12.6 (11.0-16.0) % Plt Count 115 L D (160-400) X10*3/uL MPV 10.0 (9.4-12.3) fL Immature Gran % (Auto) 0.4 (0.0-0.4) % Neut % (Auto) 56.6 (45-73) % Lymph % (Auto) 35.5 (20-40) % [place] % (Auto) 6.5 (2-11) % Eos % (Auto) 0.6 (0-4) % Baso % (Auto) 0.4 (0-2) % Lymph # (Auto) 1.9 (1.2-4.9) X10*3/uL [place] # (Auto) 0.4 (0.1-1.2) X10*3/uL Eos # (Auto) 0.0 (0.0-0.4) X10*3/uL Baso # (Auto) 0.0 (0.0-0.2) X10*3/uL Abs Immat Gran (auto) 0.02 (0.00-0.03) X10*3/uL Absolute Neuts (auto) 3.1 (2.0-8.3) x10*3/uL Absolute Nucleated RBC 0.000 (0.0-0.012) X10*3/uL Nucleated RBC % (auto) 0.0 (0.0-0.2) /100WBC ESR 7 (0-20) MM/HR Sodium (135-145) mmol/L Potassium (3.3-5.1) mmol/L Chloride (96-108) mmol/L Carbon Dioxide (22-29) mmol/L Anion Gap (12-20) BUN (9-16) mg/dL Creatinine (0.5-1.4) mg/dL Estim Creat Clear Calc Estimated GFR Random Glucose (60-115) mg/dL Calcium (8.4-10.2) mg/dL Magnesium (1.6-2.6) mg/dL Total Bilirubin (0.0-1.0) mg/dL AST (5-31) U/L ALT (0-31) U/L Alkaline Phosphatase (39-117) U/L Total Creatine Kinase (26-140) U/L C-Reactive Protein (< or = 0.50) mg/dL Total Protein (6.5-8.0) g/dL Albumin (3.5-5.0) g/dL Beta HCG, Quant mIU/mL Urine Color Urine Appearance Urine pH (5.0-9.0) Ur Specific Bim (1.005-1.025) Urine Protein (Neg-Trace) mg/dL Urine Glucose (UA) (Negative) mg/dL Urine Ketones (Negative) mg/dL Urine Blood (Negative) Urine Nitrite (Negative) Ur Leukocyte Esterase (Negative) Urine RBC (0-2) /HPF Urine WBC (0-5) /HPF Ur Squamous Epith Cells (0-2) /HPF Urine Bacteria (None Seen) Hyaline Casts (0-2) /LPF Urine Opiates Screen (Not Detect) Urine Fentanyl Screen (Not Detect) Ur Barbiturates Screen (Not Detect) Ur Phencyclidine Scrn (Not Detect) Ur Amphetamines Screen (Not Detect) U Benzodiazepines Scrn (Not Detect) Urine Cocaine Screen (Not Detect) U Marijuana (THC) Screen (Not Detect) Ethyl Alcohol mg/dL COVID-19 (ZACK) Negative (Negative) COVID-19 Clin Com See Note 06/07/22 06/07/22 06/07/22 Range/Units 17:26 17:26 20:05 WBC (4.8-10.8) X10*3/uL RBC (4.20-5.50) X10*6/uL Hgb (12.0-16.0) g/dl Hct (37.0-47.0) % MCV (80.0-98.0) fL MCH (27.0-33.0) pg MCHC (31.0-35.0) g/dl RDW (11.0-16.0) % Plt Count (160-400) X10*3/uL MPV (9.4-12.3) fL Immature Gran % (Auto) (0.0-0.4) % Neut % (Auto) (45-73) % Lymph % (Auto) (20-40) % [place] % (Auto) (2-11) % Eos % (Auto) (0-4) % Baso % (Auto) (0-2) % Lymph # (Auto) (1.2-4.9) X10*3/uL [place] # (Auto) (0.1-1.2) X10*3/uL Eos # (Auto) (0.0-0.4) X10*3/uL Baso # (Auto) (0.0-0.2) X10*3/uL Abs Immat Gran (auto) (0.00-0.03) X10*3/uL Absolute Neuts (auto) (2.0-8.3) x10*3/uL Absolute Nucleated RBC (0.0-0.012) X10*3/uL Nucleated RBC % (auto) (0.0-0.2) /100WBC ESR (0-20) MM/HR Sodium 137 (135-145) mmol/L Potassium 3.2 L (3.3-5.1) mmol/L Chloride 105 (96-108) mmol/L Carbon Dioxide 21 L (22-29) mmol/L Anion Gap 14 (12-20) BUN 17 H (9-16) mg/dL Creatinine 0.75 (0.5-1.4) mg/dL Estim Creat Clear Calc 113.6 Estimated GFR > 60 Random Glucose 114 (60-115) mg/dL Calcium 8.7 D (8.4-10.2) mg/dL Magnesium 2.1 (1.6-2.6) mg/dL Total Bilirubin 0.9 (0.0-1.0) mg/dL AST 286 H (5-31) U/L ALT 90 H (0-31) U/L Alkaline Phosphatase 78 (39-117) U/L Total Creatine Kinase 18935 H D (26-140) U/L C-Reactive Protein 0.09 (< or = 0.50) mg/dL Total Protein 6.5 (6.5-8.0) g/dL Albumin 4.0 (3.5-5.0) g/dL Beta HCG, Quant < 2 mIU/mL Urine Color Urine Appearance Urine pH (5.0-9.0) Ur Specific Bim (1.005-1.025) Urine Protein (Neg-Trace) mg/dL Urine Glucose (UA) (Negative) mg/dL Urine Ketones (Negative) mg/dL Urine Blood (Negative) Urine Nitrite (Negative) Ur Leukocyte Esterase (Negative) Urine RBC (0-2) /HPF Urine WBC (0-5) /HPF Ur Squamous Epith Cells (0-2) /HPF Urine Bacteria (None Seen) Hyaline Casts (0-2) /LPF Urine Opiates Screen POSITIVE H (Not Detect) Urine Fentanyl Screen POSITIVE H (Not Detect) Ur Barbiturates Screen Not Detected (Not Detect) Ur Phencyclidine Scrn Not Detected (Not Detect) Ur Amphetamines Screen Not Detected (Not Detect) U Benzodiazepines Scrn Not Detected (Not Detect) Urine Cocaine Screen POSITIVE H (Not Detect) U Marijuana (THC) Screen Not Detected (Not Detect) Ethyl Alcohol < 10 mg/dL COVID-19 (ZACK) (Negative) COVID-19 Clin Com 06/07/22 Range/Units 20:05 WBC (4.8-10.8) X10*3/uL RBC (4.20-5.50) X10*6/uL Hgb (12.0-16.0) g/dl Hct (37.0-47.0) % MCV (80.0-98.0) fL MCH (27.0-33.0) pg MCHC (31.0-35.0) g/dl RDW (11.0-16.0) % Plt Count (160-400) X10*3/uL MPV (9.4-12.3) fL Immature Gran % (Auto) (0.0-0.4) % Neut % (Auto) (45-73) % Lymph % (Auto) (20-40) % [place] % (Auto) (2-11) % Eos % (Auto) (0-4) % Baso % (Auto) (0-2) % Lymph # (Auto) (1.2-4.9) X10*3/uL [place] # (Auto) (0.1-1.2) X10*3/uL Eos # (Auto) (0.0-0.4) X10*3/uL Baso # (Auto) (0.0-0.2) X10*3/uL Abs Immat Gran (auto) (0.00-0.03) X10*3/uL Absolute Neuts (auto) (2.0-8.3) x10*3/uL Absolute Nucleated RBC (0.0-0.012) X10*3/uL Nucleated RBC % (auto) (0.0-0.2) /100WBC ESR (0-20) MM/HR Sodium (135-145) mmol/L Potassium (3.3-5.1) mmol/L Chloride (96-108) mmol/L Carbon Dioxide (22-29) mmol/L Anion Gap (12-20) BUN (9-16) mg/dL Creatinine (0.5-1.4) mg/dL Estim Creat Clear Calc Estimated GFR Random Glucose (60-115) mg/dL Calcium (8.4-10.2) mg/dL Magnesium (1.6-2.6) mg/dL Total Bilirubin (0.0-1.0) mg/dL AST (5-31) U/L ALT (0-31) U/L Alkaline Phosphatase (39-117) U/L Total Creatine Kinase (26-140) U/L C-Reactive Protein (< or = 0.50) mg/dL Total Protein (6.5-8.0) g/dL Albumin (3.5-5.0) g/dL Beta HCG, Quant mIU/mL Urine Color Yellow Urine Appearance Clear Urine pH 5.5 (5.0-9.0) Ur Specific Bim 1.015 (1.005-1.025) Urine Protein Trace (Neg-Trace) mg/dL Urine Glucose (UA) Negative (Negative) mg/dL Urine Ketones 15 (Negative) mg/dL Urine Blood Large (3+) H (Negative) Urine Nitrite Negative (Negative) Ur Leukocyte Esterase Trace H (Negative) Urine RBC 0-2 (0-2) /HPF Urine WBC 0-5 (0-5) /HPF Ur Squamous Epith Cells 0-2 (0-2) /HPF Urine Bacteria None Seen (None Seen) Hyaline Casts 0-2 (0-2) /LPF Urine Opiates Screen (Not Detect) Urine Fentanyl Screen (Not Detect) Ur Barbiturates Screen (Not Detect) Ur Phencyclidine Scrn (Not Detect) Ur Amphetamines Screen (Not Detect) U Benzodiazepines Scrn (Not Detect) Urine Cocaine Screen (Not Detect) U Marijuana (THC) Screen (Not Detect) Ethyl Alcohol mg/dL COVID-19 (ZACK) (Negative) COVID-19 Clin Com <ALISON Echevarria - Last Filed: 06/07/22 18:33> Lab Results 06/07/22 06/07/22 06/07/22 Range/Units 13:47 17:26 17:26 WBC 5.4 (4.8-10.8) X10*3/uL RBC 4.15 L (4.20-5.50) X10*6/uL Hgb 12.5 (12.0-16.0) g/dl Hct 35.8 L (37.0-47.0) % MCV 86.3 (80.0-98.0) fL MCH 30.1 (27.0-33.0) pg MCHC 34.9 (31.0-35.0) g/dl RDW 12.6 (11.0-16.0) % Plt Count 115 L D (160-400) X10*3/uL MPV 10.0 (9.4-12.3) fL Immature Gran % (Auto) 0.4 (0.0-0.4) % Neut % (Auto) 56.6 (45-73) % Lymph % (Auto) 35.5 (20-40) % [place] % (Auto) 6.5 (2-11) % Eos % (Auto) 0.6 (0-4) % Baso % (Auto) 0.4 (0-2) % Lymph # (Auto) 1.9 (1.2-4.9) X10*3/uL [place] # (Auto) 0.4 (0.1-1.2) X10*3/uL Eos # (Auto) 0.0 (0.0-0.4) X10*3/uL Baso # (Auto) 0.0 (0.0-0.2) X10*3/uL Abs Immat Gran (auto) 0.02 (0.00-0.03) X10*3/uL Absolute Neuts (auto) 3.1 (2.0-8.3) x10*3/uL Absolute Nucleated RBC 0.000 (0.0-0.012) X10*3/uL Nucleated RBC % (auto) 0.0 (0.0-0.2) /100WBC ESR 7 (0-20) MM/HR Sodium (135-145) mmol/L Potassium (3.3-5.1) mmol/L Chloride (96-108) mmol/L Carbon Dioxide (22-29) mmol/L Anion Gap (12-20) BUN (9-16) mg/dL Creatinine (0.5-1.4) mg/dL Estim Creat Clear Calc Estimated GFR Random Glucose (60-115) mg/dL Calcium (8.4-10.2) mg/dL Magnesium (1.6-2.6) mg/dL Total Bilirubin (0.0-1.0) mg/dL AST (5-31) U/L ALT (0-31) U/L Alkaline Phosphatase (39-117) U/L Total Creatine Kinase (26-140) U/L C-Reactive Protein (< or = 0.50) mg/dL Total Protein (6.5-8.0) g/dL Albumin (3.5-5.0) g/dL Beta HCG, Quant mIU/mL Urine Color Urine Appearance Urine pH (5.0-9.0) Ur Specific Bim (1.005-1.025) Urine Protein (Neg-Trace) mg/dL Urine Glucose (UA) (Negative) mg/dL Urine Ketones (Negative) mg/dL Urine Blood (Negative) Urine Nitrite (Negative) Ur Leukocyte Esterase (Negative) Urine RBC (0-2) /HPF Urine WBC (0-5) /HPF Ur Squamous Epith Cells (0-2) /HPF Urine Bacteria (None Seen) Hyaline Casts (0-2) /LPF Urine Opiates Screen (Not Detect) Urine Fentanyl Screen (Not Detect) Ur Barbiturates Screen (Not Detect) Ur Phencyclidine Scrn (Not Detect) Ur Amphetamines Screen (Not Detect) U Benzodiazepines Scrn (Not Detect) Urine Cocaine Screen (Not Detect) U Marijuana (THC) Screen (Not Detect) Ethyl Alcohol mg/dL COVID-19 (ZACK) Negative (Negative) COVID-19 Clin Com See Note 06/07/22 06/07/22 06/07/22 Range/Units 17:26 17:26 20:05 WBC (4.8-10.8) X10*3/uL RBC (4.20-5.50) X10*6/uL Hgb (12.0-16.0) g/dl Hct (37.0-47.0) % MCV (80.0-98.0) fL MCH (27.0-33.0) pg MCHC (31.0-35.0) g/dl RDW (11.0-16.0) % Plt Count (160-400) X10*3/uL MPV (9.4-12.3) fL Immature Gran % (Auto) (0.0-0.4) % Neut % (Auto) (45-73) % Lymph % (Auto) (20-40) % [place] % (Auto) (2-11) % Eos % (Auto) (0-4) % Baso % (Auto) (0-2) % Lymph # (Auto) (1.2-4.9) X10*3/uL [place] # (Auto) (0.1-1.2) X10*3/uL Eos # (Auto) (0.0-0.4) X10*3/uL Baso # (Auto) (0.0-0.2) X10*3/uL Abs Immat Gran (auto) (0.00-0.03) X10*3/uL Absolute Neuts (auto) (2.0-8.3) x10*3/uL Absolute Nucleated RBC (0.0-0.012) X10*3/uL Nucleated RBC % (auto) (0.0-0.2) /100WBC ESR (0-20) MM/HR Sodium 137 (135-145) mmol/L Potassium 3.2 L (3.3-5.1) mmol/L Chloride 105 (96-108) mmol/L Carbon Dioxide 21 L (22-29) mmol/L Anion Gap 14 (12-20) BUN 17 H (9-16) mg/dL Creatinine 0.75 (0.5-1.4) mg/dL Estim Creat Clear Calc 113.6 Estimated GFR > 60 Random Glucose 114 (60-115) mg/dL Calcium 8.7 D (8.4-10.2) mg/dL Magnesium 2.1 (1.6-2.6) mg/dL Total Bilirubin 0.9 (0.0-1.0) mg/dL AST 286 H (5-31) U/L ALT 90 H (0-31) U/L Alkaline Phosphatase 78 (39-117) U/L Total Creatine Kinase 97219 H D (26-140) U/L C-Reactive Protein 0.09 (< or = 0.50) mg/dL Total Protein 6.5 (6.5-8.0) g/dL Albumin 4.0 (3.5-5.0) g/dL Beta HCG, Quant < 2 mIU/mL Urine Color Urine Appearance Urine pH (5.0-9.0) Ur Specific Bim (1.005-1.025) Urine Protein (Neg-Trace) mg/dL Urine Glucose (UA) (Negative) mg/dL Urine Ketones (Negative) mg/dL Urine Blood (Negative) Urine Nitrite (Negative) Ur Leukocyte Esterase (Negative) Urine RBC (0-2) /HPF Urine WBC (0-5) /HPF Ur Squamous Epith Cells (0-2) /HPF Urine Bacteria (None Seen) Hyaline Casts (0-2) /LPF Urine Opiates Screen POSITIVE H (Not Detect) Urine Fentanyl Screen POSITIVE H (Not Detect) Ur Barbiturates Screen Not Detected (Not Detect) Ur Phencyclidine Scrn Not Detected (Not Detect) Ur Amphetamines Screen Not Detected (Not Detect) U Benzodiazepines Scrn Not Detected (Not Detect) Urine Cocaine Screen POSITIVE H (Not Detect) U Marijuana (THC) Screen Not Detected (Not Detect) Ethyl Alcohol < 10 mg/dL COVID-19 (ZACK) (Negative) COVID-19 Clin Com 06/07/22 Range/Units 20:05 WBC (4.8-10.8) X10*3/uL RBC (4.20-5.50) X10*6/uL Hgb (12.0-16.0) g/dl Hct (37.0-47.0) % MCV (80.0-98.0) fL MCH (27.0-33.0) pg MCHC (31.0-35.0) g/dl RDW (11.0-16.0) % Plt Count (160-400) X10*3/uL MPV (9.4-12.3) fL Immature Gran % (Auto) (0.0-0.4) % Neut % (Auto) (45-73) % Lymph % (Auto) (20-40) % [place] % (Auto) (2-11) % Eos % (Auto) (0-4) % Baso % (Auto) (0-2) % Lymph # (Auto) (1.2-4.9) X10*3/uL [place] # (Auto) (0.1-1.2) X10*3/uL Eos # (Auto) (0.0-0.4) X10*3/uL Baso # (Auto) (0.0-0.2) X10*3/uL Abs Immat Gran (auto) (0.00-0.03) X10*3/uL Absolute Neuts (auto) (2.0-8.3) x10*3/uL Absolute Nucleated RBC (0.0-0.012) X10*3/uL Nucleated RBC % (auto) (0.0-0.2) /100WBC ESR (0-20) MM/HR Sodium (135-145) mmol/L Potassium (3.3-5.1) mmol/L Chloride (96-108) mmol/L Carbon Dioxide (22-29) mmol/L Anion Gap (12-20) BUN (9-16) mg/dL Creatinine (0.5-1.4) mg/dL Estim Creat Clear Calc Estimated GFR Random Glucose (60-115) mg/dL Calcium (8.4-10.2) mg/dL Magnesium (1.6-2.6) mg/dL Total Bilirubin (0.0-1.0) mg/dL AST (5-31) U/L ALT (0-31) U/L Alkaline Phosphatase (39-117) U/L Total Creatine Kinase (26-140) U/L C-Reactive Protein (< or = 0.50) mg/dL Total Protein (6.5-8.0) g/dL Albumin (3.5-5.0) g/dL Beta HCG, Quant mIU/mL Urine Color Yellow Urine Appearance Clear Urine pH 5.5 (5.0-9.0) Ur Specific Bim 1.015 (1.005-1.025) Urine Protein Trace (Neg-Trace) mg/dL Urine Glucose (UA) Negative (Negative) mg/dL Urine Ketones 15 (Negative) mg/dL Urine Blood Large (3+) H (Negative) Urine Nitrite Negative (Negative) Ur Leukocyte Esterase Trace H (Negative) Urine RBC 0-2 (0-2) /HPF Urine WBC 0-5 (0-5) /HPF Ur Squamous Epith Cells 0-2 (0-2) /HPF Urine Bacteria None Seen (None Seen) Hyaline Casts 0-2 (0-2) /LPF Urine Opiates Screen (Not Detect) Urine Fentanyl Screen (Not Detect) Ur Barbiturates Screen (Not Detect) Ur Phencyclidine Scrn (Not Detect) Ur Amphetamines Screen (Not Detect) U Benzodiazepines Scrn (Not Detect) Urine Cocaine Screen (Not Detect) U Marijuana (THC) Screen (Not Detect) Ethyl Alcohol mg/dL COVID-19 (ZACK) (Negative) COVID-19 Clin Com <Sukhdev Palacios MD - Last Filed: 06/07/22 21:26> Imaging Data Chest x-ray: Attestation: I personally reviewed and interpreted this imaging study as follows: <ALISON Echevarria - Last Filed: 06/07/22 18:33> Radiologist's impression: FINDINGS: No acute finding. Lung leong are grossly clear. The cardiac silhouette is felt to be comparable. The hilar structures are comparable. There is no effusion. XR/XR chest 1V IMPRESSION: No acute finding <ALISON Echevarria - Last Filed: 06/07/22 18:33> Critical Care Time Critical Care Time Critical Care Time: No <ALISON Bradley - Last Filed: 06/07/22 17:55> Yes <ALISON Echevarria - Last Filed: 06/07/22 18:33> Total Critical Care Time: 60 <ALISON Echevarria - Last Filed: 06/07/22 18:33> Attestation: I personally attest to this time spent taking care of the patient. By Pina Sandoval PA-C <ALISON Echevarria - Last Filed: 06/07/22 18:33> Discharge Plan Discharge Clinical Impression: Cocaine abuse, Back pain, Rhabdomyolysis, Leg pain, bilateral <ALISON Bradley - Last Filed: 06/07/22 17:55> Patient Disposition: Admitted As Inpatient <ALISON Bradley - Last Filed: 06/07/22 17:55>
--- NOTE | 2022-06-07 13:05 | PC.NURSE ---
Security at bedside to inventory belongings and remove needles w/ syringes. 3 removed from belongings.
[2022-06-07] MEDS: 0.9 % Sodium Chloride 1,000 ML 999 ML IV (13:52)
--- NOTE | 2022-06-07 13:52 | PC.NURSE ---
22g in L shoulder established-Provider aware of delay in blood draw.
[2022-06-07 14:12] LABS: COVID-19 Test Negative (Negative)
[2022-06-07 15:42] VITALS: BP 99/44; PULSE 76; RESP 16; O2SAT 97
[2022-06-07] MEDS: LORazepam 1 MG TABLET PO (16:16)
[2022-06-07 17:30] LABS: MANUAL DIFF FLAG NO
[2022-06-07 17:31] LABS: Hemoglobin 12.5 g/dl (12.0-16.0); PLT CLUMP 1; Red Cell Distribution Width 12.6 % (11.0-16.0); SCAN SMEAR FLAG 1
[2022-06-07 17:33] LABS: Basophils Percent Auto 0.4 % (0-2); Eosinophils Percent Auto 0.6 % (0-4); Hematocrit 35.8 % (37.0-47.0); Imm Gran Abs Auto 0.02 X10*3/uL (0.00-0.03); Imm Gran Pct Auto 0.4 % (0.0-0.4); Lymphocytes Absolute Auto 1.9 X10*3/uL (1.2-4.9); Lymphocytes Percent Auto 35.5 % (20-40); Mean Corpuscular HGB Conc 34.9 g/dl (31.0-35.0); Mean Corpuscular Hemoglobin 30.1 pg (27.0-33.0); Mean Corpuscular Volume 86.3 fL (80.0-98.0); Monocytes Absolute Auto 0.4 X10*3/uL (0.1-1.2); Monocytes Percent Auto 6.5 % (2-11); Neutrophils Absolute Auto 3.1 x10*3/uL (2.0-8.3); Neutrophils Percent Auto 56.6 % (45-73); Red Blood Count 4.15 X10*6/uL (4.20-5.50)
[2022-06-07 17:35] LABS: White Blood Count 5.4 X10*3/uL (4.8-10.8)
[2022-06-07 17:36] LABS: Platelet Count 115 X10*3/uL (160-400)
[2022-06-07 17:57] LABS: Alanine Aminotransferase 90 U/L (0-31); Alkaline Phosphatase 78 U/L (39-117); Anion Gap 14 (12-20); Aspartate Amino Transferase 286 U/L (5-31); Bilirubin Total 0.9 mg/dL (0.0-1.0); Blood Urea Nitrogen 17 mg/dL (9-16); C Reactive Protein 0.09 mg/dL (< or = 0.50); Calcium 8.7 mg/dL (8.4-10.2); Carbon Dioxide 21 mmol/L (22-29); Chloride 105 mmol/L (96-108); Creatinine Clr Calc Pharmacy 113.6; Estimated Glomerular Filt Rate > 60; Glucose Random 114 mg/dL (60-115); Magnesium 2.1 mg/dL (1.6-2.6); Potassium 3.2 mmol/L (3.3-5.1); Sodium 137 mmol/L (135-145); Total Protein 6.5 g/dL (6.5-8.0)
[2022-06-07 17:58] LABS: Ethanol < 10 mg/dL
[2022-06-07 18:07] LABS: Erythrocyte Sedimentation Rate 7 MM/HR (0-20)
--- NOTE | 2022-06-07 19:19 | PHA.MEDREC ---
Pharmacy Consult ? Medication Reconciliation Pharmacy has completed the medication reconciliation. Patient reports to having poly pharmacy and getting meds from different locations, however all show up on claim history or PDMP. Patient states they would like to get back on zolpidem, but have not started yet. Methadone unverified at this time. Takes hydroxyzine and propanolol Q6h PRN despite script instructions, per patient.
[2022-06-07 19:20] LABS: HCG Quantitative < 2 mIU/mL
[2022-06-07 20:07] VITALS: BP 93/51; PULSE 86; RESP 16; O2SAT 97
[2022-06-07] MEDS: 0.9 % Sodium Chloride 1,000 ML 999 ML IVCONT ×2 (20:12→23:14)
--- NOTE | 2022-06-07 20:15 | PC.NURSE ---
introduced self to patient - pt placed on bed ar[place], urine sent, patient cleaned up and linens changed, given snack per pt request, vital signs updated & tv on. patient resting comfortably with call lopez within reach. will continue to monitor.
[2022-06-07 20:20] LABS: Appearance Urine Clear; Color Urine Yellow; Glucose Urine UA Negative (Negative); Leukocyte Esterase Urine Trace (Negative); Nitrite Urine Negative (Negative); PH 5.5 (5.0-9.0); Specific Gravity - Urine 1.015 (1.005-1.025); UMIC TRIGGER UACC YES; Urine Blood Large (3+) (Negative); Urine Ketones 15 mg/dL (Negative); Urine Protein Trace mg/dL (Neg-Trace)
[2022-06-07 20:35] LABS: Bacteria Urine None Seen (None Seen); Hyaline Casts Urine 0-2 /LPF (0-2); RBC Urine 0-2 /HPF (0-2); Squamous Epithelial Cell Urine 0-2 /HPF (0-2); WBC Urine 0-5 /HPF (0-5)
[2022-06-07 20:37] LABS: Amphetamine Screen Urine Not Detected (Not Detect); Barbiturates, Urine Not Detected (Not Detect); Benzodiazepines Screen Urine Not Detected (Not Detect); Cannabinoid Screen Urine Not Detected (Not Detect); Cocaine Screen Urine POSITIVE (Not Detect); Fentanyl, urine POSITIVE (Not Detect); Opiate Screen Urine POSITIVE (Not Detect); Phencyclidine Screen Urine Not Detected (Not Detect)
[2022-06-07] MEDS: LORazepam 1 MG TABLET 2 MG PO (20:37)
[2022-06-07] MEDS: Potassium Chloride Packet 20 MEQ PACKET 40 MEQ PO (20:37)
--- NOTE | 2022-06-07 21:47 | P.HPHOSP_ITS ---
History of Present Illness Date of Service: 06/07/22 Chief Complaint: Body aches 43-year-old female with a past medical history of anxiety/depression/bipolar disorder, history of polysubstance abuse, cocaine abuse/heroin abuse, opiate dependence on methadone program, recently finished section 35; has been using co tarsha for the past 2 days; mentions that she used about 2000 dollars worth of cocaine IV; and has not been moving around and mostly in the bed for the past 2 days. Hence presented to the hospital for further evaluation. Reports she has been having diffuse body aches. Denies any falls or trauma. Denies any headaches or blurry visions. Denies any numbness tingling or focal weakness. Patient does report diffuse crampy pain in the legs. Patient denies any suicidal or homicidal ideations. Review of all other systems is negative except mentioned above ER course: Per ER team patient initially complained of disease body pains including back aches, patient has no obvious signs of infection, normal ESR and CRP, less concern for any spinal infection, normal neurological examination. On labs [place] [id number]. Creatinine within normal limits. Patient was given IV fluids. Admitted to the hospital for further management PMFSH Medical History Chronic post-traumatic stress disorder (PTSD) Opioid dependence Opioid use disorder, moderate, in sustained remission, dependence Substance abuse Substance abuse Social History Household Members: None Housing: Homeless Housing Other:: patient states she is homeless Do you presently have visiting nurse or other home services: No Unable to assess alcohol history related to: Refusing to respond Alcohol intake: current Alcohol intake frequency: does not drink Patient Tobacco Use Status: Former Tobacco user Tobacco use type: Cigarette Cigarette Packs Per Day: 1 Cigarettes Per Day: 20.0 Years Smoked: 10+ e-Cigarette/Vaping Use: Former Use Second Hand Smoke Exposure: Yes Substance Use Type: Crack/Cocaine, Heroin and Opiates Advance Directives: Yes Advance Directives on File: Yes Advance Directives Date on File: 12/28/20 service: No Current occupational status: disabled Sexual orientation: Did not discuss Meds Allergies Allergy/AdvReac Type Severity Reaction Status Date / Time quetiapine [From SEROQUEL] Allergy Severe THROAT Verified 04/01/22 10:03 SWELLING azithromycin [AZITHROMYCIN] Allergy Unknown Unknown Verified 04/01/22 10:03 erythromycin base Allergy Unknown RASH Verified 05/22/21 18:18 [ERYTHROMYCIN BASE] olanzapine [From ZYPREXA] Allergy Unknown PEDAL EDEMA Verified 05/22/21 18:18 sulfacetamide Allergy Unknown Unknown Verified 05/22/21 18:18 [From Sulfacet-R] sulfamethoxazole Allergy Unknown ITCHING Verified 05/22/21 18:18 [From BACTRIM] sulfur [From Sulfacet-R] Allergy Unknown Unknown Verified 05/22/21 18:18 trimethoprim [From BACTRIM] Allergy Unknown ITCHING Verified 05/22/21 18:18 risperidone [From RISPERDAL] AdvReac Unknown TWITCHING Verified 04/01/22 10:03 seafood AdvReac Unknown Vomiting Verified 05/22/21 18:18 shellfish derived AdvReac Unknown VOMITING Verified 04/01/22 10:03 [SHELLFISH DERIVED] trazodone AdvReac restless Verified 04/28/22 13:01 legs Active Medications: Current Medications Acetaminophen (Acetaminophen 325 Mg Tablet) 650 mg PO Q6H PRN PRN Reason: Pain, Mild (Pain Scale 1-3) Heparin Sodium (Porcine) (Heparin Sodium,Porcine 5,000 Unit/Ml Vial) 5,000 unit SUBCUT Q8H EDER Sodium Chloride (Ns) 1,000 mls @ 125 mls/hr IVCONT .Q8H EDER Melatonin (Melatonin 3 Mg Tablet) 6 mg PO BEDTIME PRN PRN Reason: Insomnia Pharmacy Consult (Consult Rx Perform Med Rec) 1 each MISCELLANE ONCE PRN PRN Reason: Consult order Senna (Sennosides 8.6 Mg Tablet) 17.2 mg PO BEDTIME PRN PRN Reason: Constipation Sodium Chloride (0.9 % Sodium Chloride Flush 3 Ml Syringe) 3 ml IVFLUSH QSHIFT [facility] Home Medications Medication Instructions Recorded Confirmed Last Taken Type buspirone 15 mg tablet 1 tab PO TID 06/07/22 06/07/22 06/06/22 History clonazepam 0.5 mg tablet 0.5 mg PO BID PRN Anxiety 06/07/22 06/07/22 06/06/22 History diclofenac potassium 50 mg tablet 1 tab PO BID 09/06/07/22 06/06/22 History gabapentin 800 mg tablet 1 tab PO QID 06/07/22 06/07/22 06/06/22 History hydroxyzine HCl 25 mg tablet 1 tab PO Q6H PRN Anxiety 06/07/22 06/07/22 06/06/22 History loratadine 10 mg tablet 1 tab PO DAILY PRN Allergy Symptoms 06/07/22 06/07/22 Unknown History propranolol 10 mg tablet 10 mg PO Q6H PRN Anxiety 06/07/22 06/07/22 06/06/22 History soap (Cetaphil Bar) 1 appl topical QID PRN skin 06/07/22 06/07/22 Unknown History protectant topiramate 200 mg tablet 1 tab PO BID 06/07/22 06/07/22 06/06/22 History Physical Exam Vital Signs and Narrative: Vital Signs: Last Vital Signs Temp 98.5 F 06/07/22 12:52 Pulse 86 06/07/22 20:07 Resp 16 06/07/22 20:07 BP 93/51 L 06/07/22 20:07 Pulse Ox 97 06/07/22 20:07 O2 Del Method 06/07/22 20:07 BMI result Body Mass Index 35.2 Gen: Appears be in no acute distress HEENT: NCAT, Moist mucosa. Pulmonary: Vesicular breath sounds, fair air entry CVS: Normal S1-S2 Abdomen: BS+, Soft, Nontender Extremities: Warm well perfused; bilateral cough tenderness noted Neuro: Alert and awake. Grossly nonfocal Results Labs CBC and Chem 7: 06/07/22 17:26 06/07/22 17:26 Labs: Laboratory Results - last 24 hr 06/07/22 06/07/22 06/07/22 13:47 17:26 17:26 MCV 86.3 MCH 30.1 MCHC 34.9 RDW 12.6 Plt Count 115 L D MPV 10.0 Immature Gran % (Auto) 0.4 Neut % (Auto) 56.6 Lymph % (Auto) 35.5 [place] % (Auto) 6.5 Eos % (Auto) 0.6 Baso % (Auto) 0.4 Lymph # (Auto) 1.9 [place] # (Auto) 0.4 Eos # (Auto) 0.0 Baso # (Auto) 0.0 Abs Immat Gran (auto) 0.02 Absolute Neuts (auto) 3.1 Absolute Nucleated RBC 0.000 Nucleated RBC % (auto) 0.0 ESR 7 Anion Gap Estim Creat Clear Calc Estimated GFR Random Glucose Calcium Magnesium Total Bilirubin AST ALT Alkaline Phosphatase Total Creatine Kinase C-Reactive Protein Total Protein Albumin Beta HCG, Quant Urine Color Urine Appearance Urine pH Ur Specific Amery Urine Protein Urine Glucose (UA) Urine Ketones Urine Blood Urine Nitrite Ur Leukocyte Esterase Urine RBC Urine WBC Ur Squamous Epith Cells Urine Bacteria Hyaline Casts Urine Opiates Screen Urine Fentanyl Screen Ur Barbiturates Screen Ur Phencyclidine Scrn Ur Amphetamines Screen U Benzodiazepines Scrn Urine Cocaine Screen U Marijuana (THC) Screen Ethyl Alcohol COVID-19 (ZACK) Negative COVID-19 Clin Com See Note 06/07/22 06/07/22 06/07/22 17:26 17:26 20:05 MCV MCH MCHC RDW Plt Count MPV Immature Gran % (Auto) Neut % (Auto) Lymph % (Auto) [place] % (Auto) Eos % (Auto) Baso % (Auto) Lymph # (Auto) [place] # (Auto) Eos # (Auto) Baso # (Auto) Abs Immat Gran (auto) Absolute Neuts (auto) Absolute Nucleated RBC Nucleated RBC % (auto) ESR Anion Gap 14 Estim Creat Clear Calc 113.6 Estimated GFR > 60 Random Glucose 114 Calcium 8.7 D Magnesium 2.1 Total Bilirubin 0.9 AST 286 H ALT 90 H Alkaline Phosphatase 78 Total Creatine Kinase 15758 H D C-Reactive Protein 0.09 Total Protein 6.5 Albumin 4.0 Beta HCG, Quant < 2 Urine Color Urine Appearance Urine pH Ur Specific Amery Urine Protein Urine Glucose (UA) Urine Ketones Urine Blood Urine Nitrite Ur Leukocyte Esterase Urine RBC Urine WBC Ur Squamous Epith Cells Urine Bacteria Hyaline Casts Urine Opiates Screen POSITIVE H Urine Fentanyl Screen POSITIVE H Ur Barbiturates Screen Not Detected Ur Phencyclidine Scrn Not Detected Ur Amphetamines Screen Not Detected U Benzodiazepines Scrn Not Detected Urine Cocaine Screen POSITIVE H U Marijuana (THC) Screen Not Detected Ethyl Alcohol < 10 COVID-19 (ZACK) [facility] Com 06/07/22 20:05 MCV MCH MCHC RDW Plt Count MPV Immature Gran % (Auto) Neut % (Auto) Lymph % (Auto) [place] % (Auto) Eos % (Auto) Baso % (Auto) Lymph # (Auto) [place] # (Auto) Eos # (Auto) Baso # (Auto) Abs Immat Gran (auto) Absolute Neuts (auto) Absolute Nucleated RBC Nucleated RBC % (auto) ESR Anion Gap Estim Creat Clear Calc Estimated GFR Random Glucose Calcium Magnesium Total Bilirubin AST ALT Alkaline Phosphatase Total Creatine Kinase C-Reactive Protein Total Protein Albumin Beta HCG, Quant Urine Color Yellow Urine Appearance Clear Urine pH 5.5 Ur Specific Amery 1.015 Urine Protein Trace Urine Glucose (UA) Negative Urine Ketones 15 Urine Blood Large (3+) H Urine Nitrite Negative Ur Leukocyte Esterase Trace H Urine RBC 0-2 Urine WBC 0-5 Ur Squamous Epith Cells 0-2 Urine Bacteria None Seen Hyaline Casts 0-2 Urine Opiates Screen Urine Fentanyl Screen Ur Barbiturates Screen Ur Phencyclidine Scrn Ur Amphetamines Screen U Benzodiazepines Scrn Urine Cocaine Screen U Marijuana (THC) Screen Ethyl Alcohol COVID-19 (ZACK) COVID-19 Clin Com Imaging Radiologist's Impressions: Impressions Chest X-Ray 06/07/22 13:42 IMPRESSION: No acute finding Assessment and Plan (1) Rhabdomyolysis: Status: Acute Plan 43-year-old female with a past medical history of anxiety/depression/bipolar disorder, history of polysubstance abuse, cocaine abuse/heroin abuse, opiate dependence on methadone program, recently finished section 35; has been using cocaine for the past 2 days; diffuse body aches. Noted to have rhabdomyolysis. Admitted for further management. Rhabdomyolysis: In the setting of cocaine use/dehydration. Continue IV fluids Monitor CPK levels Currently liver panel and Creatinine within normal limits Bilateral leg cramps: Will also obtain venous duplex. History of opiate dependence: Patient on methadone-> last dose was yesterday. Addiction Medicine consult. Will give methadone 10 mg for now. History of anxiety/depression/bipolar disorder: Continue home medications DVT prophylaxis: Subcu heparin Code status: Full code Quality Stroke Does the patient have a stroke diagnosis?: No VTE Prior VTE?: No VTE Risk Level:: Medical - moderate - high VTE Device Contraindication: Treatment Not Indicated VTE Drug Contraindication: N/A - Med Ordered
[2022-06-08] MEDS: 0.9 % Sodium Chloride 1,000 ML 125 ML IVCONT ×3 (05:07→20:23)
[2022-06-08 05:53] VITALS: BP 106/56; PULSE 63; O2SAT 98
[2022-06-08] MEDS: Heparin Sodium,Porcine 5,000 UNIT/ML VIAL 5000 UNIT SUBCUT ×3 (05:54→20:25)
[2022-06-08 08:13] LABS: Basophils Percent Auto 0.4 % (0-2); Eosinophils Absolute Auto 0.1 X10*3/uL (0.0-0.4); Eosinophils Percent Auto 2.2 % (0-4); Hematocrit 34.1 % (37.0-47.0); Hemoglobin 11.8 g/dl (12.0-16.0); Lymphocytes Percent Auto 43.2 % (20-40); MANUAL DIFF FLAG SCAN; Mean Corpuscular HGB Conc 34.6 g/dl (31.0-35.0); Mean Corpuscular Hemoglobin 30.6 pg (27.0-33.0); Mean Corpuscular Volume 88.3 fL (80.0-98.0); Monocytes Absolute Auto 0.3 X10*3/uL (0.1-1.2); Monocytes Percent Auto 12.2 % (2-11); Red Blood Count 3.86 X10*6/uL (4.20-5.50); SCAN SMEAR FLAG 1
[2022-06-08 08:21] LABS: White Blood Count 2.3 X10*3/uL (4.8-10.8)
[2022-06-08] MEDS: busPIRone HCl 5 MG TABLET 15 MG PO ×3 (08:22→20:22)
[2022-06-08] MEDS: Cyclobenzaprine HCl 5 MG TABLET PO ×2 (08:22→20:23)
[2022-06-08] MEDS: Topiramate 100 MG TABLET 200 MG PO ×2 (08:23→20:23)
[2022-06-08] MEDS: Gabapentin 400 MG CAPSULE 800 MG PO ×4 (08:23→20:23)
[2022-06-08] MEDS: 0.9 % Sodium Chloride Flush 3 ML SYRINGE IVFLUSH (08:23)
[2022-06-08] MEDS: Thiamine HCL 100 MG TABLET PO (08:23)
--- NOTE | 2022-06-08 08:34 | PC.NURSE ---
pt resting quietly on stretcher this am. morning medications administered per NOV with no issue. Pt asking about methadone, will follow up with
[2022-06-08 08:35] LABS: Mean Platelet Volume 11.2 fL (9.4-12.3); Platelet Count 85 X10*3/uL (160-400)
[2022-06-08 08:36] LABS: SLIDE REVIEW VERIFIED
[2022-06-08 08:44] LABS: Anion Gap 13 (12-20); Blood Urea Nitrogen 10 mg/dL (9-16); Carbon Dioxide 20 mmol/L (22-29); Chloride 112 mmol/L (96-108); Creatinine Clr Calc Pharmacy 133.1; Estimated Glomerular Filt Rate > 60; Glucose Random 116 mg/dL (60-115); Potassium 3.7 mmol/L (3.3-5.1); Sodium 141 mmol/L (135-145)
[2022-06-08 09:01] LABS: Calcium 8.3 mg/dL (8.4-10.2)
--- NOTE | 2022-06-08 10:03 | MHC.RECOVSUP ---
Recovery Support note: Patient is a 42 year old Vietnamese speaking female who presented to [facility] due to substance use and body pain. RN informed this insurance writer that patient is requesting methadone. Patient was section 35'd from the psych unit in April and was sent to [facility] in [place]. Patient reports she discharged from [facility] on 06/06. Patient has last dose letter from [facility] documenting that she was dosed with 145mg on 06/06 at 600. Document scanned to pharmacy and placed in chart along with dose verification form. Discussed case with Liset Brambila NP and hospitalist. Plan for patient to resume 145mg while inpatient. Patient reports she is connected with [facility]. Patient will need last dose letter prior to discharge.
--- NOTE | 2022-06-08 10:12 | HE.PHANOTE ---
Methadone Verification Pharmacy has received a methadone verification sheet from [facility] in [facility]. Patients last dose was 145mg on 06/06 @0600. Confirmation was done by Ed, RN
[2022-06-08] MEDS: methADONE HCl 20 MG/2 ML ORAL.CONC 145 MG PO (10:52)
--- NOTE | 2022-06-08 11:07 | PC.NURSE ---
Pt stated she felt like she needed to urinate but did not want to use the bedpan. Pt stated I want a purewick, if I do not get the purewick I am going to pee in the bed . This nurse placed a purewick and it is suctioning appropriately at this time
--- NOTE | 2022-06-08 13:58 | MHC.CM.PN ---
Attempted to meet with patient in regards to discharge planning. Patient currently sleeping. No family present. Will attempt to meet again. Continue to monitor for d/c needs.
--- NOTE | 2022-06-08 15:00 | P.PNIM_ITS ---
Subjective Subjective Date of Service: 06/08/22 Interval History: No acute issues overnight Review of Systems Denies chest pain Denies shortness of breath Denies nausea vomiting diarrhea Denies fever chills Physical Exam Vital Signs: Vital Signs: Last Vital Signs Temp 98.5 F 06/07/22 12:52 Pulse 63 06/08/22 05:53 Resp 16 06/07/22 20:07 BP 106/56 L 06/08/22 05:53 Pulse Ox 98 06/08/22 05:53 O2 Del Method 06/08/22 05:53 BMI result Body Mass Index 35.2 Const: Other: No acute distress Resp: Other: Clear to auscultation bilaterally no rales rhonchi or wheezes Cardio: Other: No S4; positive S1-S2; no S3 murmurs rubs or gallops GI: Other: Soft nontender nondistended with normoactive bowel sounds Extrem: Other: No edema bilaterally Objective Data Active Medications Acetaminophen (Acetaminophen 325 Mg Tablet) 650 mg PO Q6H PRN PRN Reason: Pain, Mild (Pain Scale 1-3) Buspirone HCl (Buspirone Hcl 5 Mg Tablet) 15 mg PO TID [facility] Last Admin: 06/08/22 08:22 Dose: 15 mg Documented By: GEORGI Clonazepam (Clonazepam 0.5 Mg Tablet) 0.5 mg PO BID PRN PRN Reason: Anxiety Cyclobenzaprine HCl (Cyclobenzaprine Hcl 5 Mg Tablet) 5 mg PO BID [facility] Last Admin: 06/08/22 08:22 Dose: 5 mg Documented By: GEORGI Gabapentin (Gabapentin 400 Mg Capsule) 800 mg PO QID [facility] Last Admin: 06/08/22 13:04 Dose: 800 mg Documented By: GEORGI Heparin Sodium (Porcine) (Heparin Sodium,Porcine 5,000 Unit/Ml Vial) 5,000 unit SUBCUT Q8H [facility] Last Admin: 06/08/22 13:03 Dose: 5,000 unit Documented By: GEORGI Hydroxyzine HCl (Hydroxyzine Hcl 25 Mg Tablet) 25 mg PO Q6H PRN PRN Reason: Anxiety Sodium Chloride (Ns) 1,000 mls @ 125 mls/hr IVCONT .Q8H [facility] Last Admin: 06/08/22 13:05 Dose: 125 mls/hr Documented By: GEORGI Loratadine (Loratadine 10 Mg Tablet) 10 mg PO DAILY PRN PRN Reason: Allergy Symptoms Melatonin (Melatonin 3 Mg Tablet) 6 mg PO BEDTIME PRN PRN Reason: Insomnia Methadone HCl (Methadone Hcl 20 Mg/2 Ml Oral.Conc) 145 mg PO DAILY [facility] Last Admin: 06/08/22 10:52 Dose: 145 mg Documented By: GEORGI Naloxone HCl (Naloxone Hcl Nasal 4 Mg [place]) 4 mg NOSTRILALT Q2M PRN PRN Reason: opioid overdose Nicotine (Nicotine 21 Mg Patch.Td24) 21 mg TRANSDERMA DAILY PRN PRN Reason: nicotine cravings Nicotine Polacrilex (Nicotine Polacrilex 2 Mg Gum) 4 mg BUCCAL Q2H PRN PRN Reason: Nicotine Cravings Pharmacy Consult (Consult Rx Perform Med Rec) 1 each MISCELLANE ONCE PRN PRN Reason: Consult order Propranolol HCl (Propranolol Hcl 10 Mg Tablet) 10 mg PO Q6H PRN; Protocol PRN Reason: Anxiety Senna (Sennosides 8.6 Mg Tablet) 17.2 mg PO BEDTIME PRN PRN Reason: Constipation Sodium Chloride (0.9 % Sodium Chloride Flush 3 Ml Syringe) 3 ml IVFLUSH QSHIFT [facility] Last Admin: 06/08/22 08:23 Dose: 3 ml Documented By: GEORGI Thiamine HCl (Thiamine Hcl 100 Mg Tablet) 100 mg PO DAILY [facility] Last Admin: 06/08/22 08:23 Dose: 100 mg Documented By: GEORGI Topiramate (Topiramate 100 Mg Tablet) 200 mg PO BID [facility] Last Admin: 06/08/22 08:23 Dose: 200 mg Documented By: GEORGI Labs CBC & Chem 7: 06/08/22 07:31 06/08/22 07:31 Labs: Laboratory Results - last 24 hr 06/07/22 06/07/22 06/07/22 17:26 17:26 17:26 MCV 86.3 MCH 30.1 MCHC 34.9 RDW 12.6 Plt Count 115 L D MPV 10.0 Immature Gran % (Auto) 0.4 Neut % (Auto) 56.6 Lymph % (Auto) 35.5 [place] % (Auto) 6.5 Eos % (Auto) 0.6 Baso % (Auto) 0.4 Lymph # (Auto) 1.9 [place] # (Auto) 0.4 Eos # (Auto) 0.0 Baso # (Auto) 0.0 Abs Immat Gran (auto) 0.02 Absolute Neuts (auto) 3.1 Absolute Nucleated RBC 0.000 Nucleated RBC % (auto) 0.0 Smear Tech's Comments ESR 7 Anion Gap 14 Estim Creat Clear Calc 113.6 Estimated GFR > 60 Random Glucose 114 Calcium 8.7 D Magnesium 2.1 Total Bilirubin 0.9 AST 286 H ALT 90 H Alkaline Phosphatase 78 Total Creatine Kinase C-Reactive Protein 0.09 Total Protein 6.5 Albumin 4.0 Beta HCG, Quant < 2 Urine Color Urine Appearance Urine pH Ur Specific [place] Urine Protein Urine Glucose (UA) Urine Ketones Urine Blood Urine Nitrite Ur Leukocyte Esterase Urine RBC Urine WBC Ur Squamous Epith Cells Urine Bacteria Hyaline Casts Urine Opiates Screen Urine Fentanyl Screen Ur Barbiturates Screen Ur Phencyclidine Scrn Ur Amphetamines Screen U Benzodiazepines Scrn Urine Cocaine Screen U Marijuana (THC) Screen Ethyl Alcohol 06/07/22 06/07/22 06/07/22 17:26 20:05 20:05 MCV MCH MCHC RDW Plt Count MPV Immature Gran % (Auto) Neut % (Auto) Lymph % (Auto) [place] % (Auto) Eos % (Auto) Baso % (Auto) Lymph # (Auto) [place] # (Auto) Eos # (Auto) Baso # (Auto) Abs Immat Gran (auto) Absolute Neuts (auto) Absolute Nucleated RBC Nucleated RBC % (auto) Smear Tech's Comments ESR Anion Gap Estim Creat Clear Calc Estimated GFR Random Glucose Calcium Magnesium Total Bilirubin AST ALT Alkaline Phosphatase Total Creatine Kinase 56339 H D C-Reactive Protein Total Protein Albumin Beta HCG, Quant Urine Color Yellow Urine Appearance Clear Urine pH 5.5 Ur Specific [place] 1.015 Urine Protein Trace Urine Glucose (UA) Negative Urine Ketones 15 Urine Blood Large (3+) H Urine Nitrite Negative Ur Leukocyte Esterase Trace H Urine RBC 0-2 Urine WBC 0-5 Ur Squamous Epith Cells 0-2 Urine Bacteria None Seen Hyaline Casts 0-2 Urine Opiates Screen POSITIVE H Urine Fentanyl Screen POSITIVE H Ur Barbiturates Screen Not Detected Ur Phencyclidine Scrn Not Detected Ur Amphetamines Screen Not Detected U Benzodiazepines Scrn Not Detected Urine Cocaine Screen POSITIVE H U Marijuana (THC) Screen Not Detected Ethyl Alcohol < 10 06/08/22 06/08/22 06/08/22 07:31 07:31 07:31 MCV 88.3 MCH 30.6 MCHC 34.6 RDW 13.0 Plt Count 85 L D MPV 11.2 Immature Gran % (Auto) 0.0 Neut % (Auto) 42.0 L Lymph % (Auto) 43.2 H [place] % (Auto) 12.2 H Eos % (Auto) 2.2 Baso % (Auto) 0.4 Lymph # (Auto) 1.0 L [place] # (Auto) 0.3 Eos # (Auto) 0.1 Baso # (Auto) 0.0 Abs Immat Gran (auto) 0.00 Absolute Neuts (auto) 1.0 L Absolute Nucleated RBC 0.000 Nucleated RBC % (auto) 0.0 Smear Tech's Comments VERIFIED ESR Anion Gap 13 Estim Creat Clear Calc 133.1 Estimated GFR > 60 Random Glucose 116 H Calcium 8.3 L Magnesium Total Bilirubin AST ALT Alkaline Phosphatase Total Creatine Kinase 18300 H D Cancelled C-Reactive Protein Total Protein Albumin Beta HCG, Quant Urine Color Urine Appearance Urine pH Ur Specific [place] Urine Protein Urine Glucose (UA) Urine Ketones Urine Blood Urine Nitrite Ur Leukocyte Esterase Urine RBC Urine WBC Ur Squamous Epith Cells Urine Bacteria Hyaline Casts Urine Opiates Screen Urine Fentanyl Screen Ur Barbiturates Screen Ur Phencyclidine Scrn Ur Amphetamines Screen U Benzodiazepines Scrn Urine Cocaine Screen U Marijuana (THC) Screen Ethyl Alcohol Assessment and Plan (1) Rhabdomyolysis: Status: Acute (2) Polysubstance use disorder: Status: Acute Plan 43-year-old female with a past medical history of anxiety/depression/bipolar disorder, history of polysubstance abuse, cocaine abuse/heroin abuse, opiate dependence on methadone program, recently finished section [place]; has been using cocaine for the past 2 days; diffuse body aches. Noted to have rhabdomyolysis. Admitted for further management. 1.Rhabdomyolysis: -improved with saline overnight -renal function stable -follow ck's/renals/divalents 2. Polysubstance Abuse -Methadone as ordered -Care team consults DVT prophylaxis: Subcu heparin Code status: Full code Will require ongoing hospitalization for IV volume repletion to treat rha bdomyolysis Quality Stroke Does the patient have a stroke diagnosis?: No VTE Prior VTE?: No VTE Risk Level:: Medical - moderate - high VTE Device Contraindication: Treatment Not Indicated VTE Drug Contraindication: N/A - Med Ordered
[2022-06-08] MEDS: clonazePAM 0.5 MG TABLET PO ×2 (15:11→20:29)
[2022-06-08] MEDS: Nicotine Polacrilex 2 MG GUM 4 MG BUCCAL ×3 (15:12→21:28)
[2022-06-08 16:22] VITALS: BP 110/58; PULSE 55; RESP 13; TEMP 36.8; O2SAT 98
[2022-06-08] MEDS: Nicotine 21 MG PATCH.TD24 TRANSDERMA (16:24)
[2022-06-08 19:29] VITALS: BP 113/61; PULSE 77; RESP 18; TEMP 36.4; O2SAT 99
[2022-06-08] MEDS: Melatonin 3 MG TABLET 6 MG PO (20:23)
[2022-06-09] VITALS (7 sets, daily range): BP systolic 102–127; BP diastolic 59–77; PULSE 56–67; RESP 13–18; TEMP 36.1–36.9; O2SAT 95–100
[2022-06-09] MEDS: Acetaminophen 325 MG TABLET 650 MG PO (03:42)
[2022-06-09] MEDS: Nicotine Polacrilex 2 MG GUM 4 MG BUCCAL ×5 (03:42→21:23)
[2022-06-09] MEDS: 0.9 % Sodium Chloride 1,000 ML 125 ML IVCONT ×2 (04:11→13:23)
[2022-06-09 06:26] LABS: Basophils Percent Auto 0.5 % (0-2); Eosinophils Percent Auto 1.8 % (0-4); Hematocrit 37.5 % (37.0-47.0); Hemoglobin 12.3 g/dl (12.0-16.0); Imm Gran Abs Auto 0.01 X10*3/uL (0.00-0.03); Imm Gran Pct Auto 0.5 % (0.0-0.4); Lymphocytes Absolute Auto 1.3 X10*3/uL (1.2-4.9); Lymphocytes Percent Auto 60.9 % (20-40); MANUAL DIFF FLAG SCAN; Mean Corpuscular HGB Conc 32.8 g/dl (31.0-35.0); Mean Corpuscular Hemoglobin 29.6 pg (27.0-33.0); Mean Corpuscular Volume 90.4 fL (80.0-98.0); Mean Platelet Volume 11.7 fL (9.4-12.3); Monocytes Absolute Auto 0.2 X10*3/uL (0.1-1.2); Monocytes Percent Auto 7.7 % (2-11); Neutrophils Absolute Auto 0.6 x10*3/uL (2.0-8.3); Neutrophils Percent Auto 28.6 % (45-73); Red Blood Count 4.15 X10*6/uL (4.20-5.50); Red Cell Distribution Width 13.7 % (11.0-16.0); SCAN SMEAR FLAG 1
[2022-06-09 06:28] LABS: Platelet Count 87 X10*3/uL (160-400); White Blood Count 2.2 X10*3/uL (4.8-10.8)
[2022-06-09] MEDS: Heparin Sodium,Porcine 5,000 UNIT/ML VIAL 5000 UNIT SUBCUT ×3 (06:31→21:23)
[2022-06-09 06:47] LABS: SLIDE REVIEW VERIFIED
[2022-06-09 07:03] LABS: Alanine Aminotransferase 101 U/L (0-31); Albumin Level 3.4 g/dL (3.5-5.0); Alkaline Phosphatase 79 U/L (39-117); Anion Gap 13 (12-20); Aspartate Amino Transferase 190 U/L (5-31); Bilirubin Total 0.2 mg/dL (0.0-1.0); Blood Urea Nitrogen 7 mg/dL (9-16); Calcium 8.4 mg/dL (8.4-10.2); Carbon Dioxide 21 mmol/L (22-29); Chloride 115 mmol/L (96-108); Creatinine Clr Calc Pharmacy 123.4; Estimated Glomerular Filt Rate > 60; Glucose Fasting 126 mg/dL (60-99); Potassium 3.6 mmol/L (3.3-5.1); Sodium 145 mmol/L (135-145); Total Protein 5.8 g/dL (6.5-8.0)
[2022-06-09] MEDS: busPIRone HCl 5 MG TABLET 15 MG PO ×3 (08:50→21:22)
[2022-06-09] MEDS: Gabapentin 400 MG CAPSULE 800 MG PO ×4 (08:51→21:23)
[2022-06-09] MEDS: Topiramate 100 MG TABLET 200 MG PO ×2 (08:51→21:23)
[2022-06-09] MEDS: Cyclobenzaprine HCl 5 MG TABLET PO ×2 (08:51→21:22)
[2022-06-09] MEDS: Thiamine HCL 100 MG TABLET PO (08:51)
[2022-06-09] MEDS: methADONE HCl 20 MG/2 ML ORAL.CONC 145 MG PO (08:52)
[2022-06-09] MEDS: clonazePAM 0.5 MG TABLET PO ×2 (08:58→21:23)
--- NOTE | 2022-06-09 10:23 | P.PNIM_ITS ---
Subjective Subjective Date of Service: 06/09/22 Interval History: No acute issues overnight. Review of Systems Denies chest pain Denies shortness of breath Denies nausea vomiting diarrhea Admits to diffuse muscle pain that is somewhat improved Physical Exam Vital Signs: Vital Signs: Last Vital Signs Temp 97.6 F 06/09/22 07:41 Pulse 61 06/09/22 07:41 Resp 13 06/09/22 07:41 BP 113/65 06/09/22 07:41 Pulse Ox 98 06/09/22 07:41 O2 Del Method 06/09/22 07:41 BMI result Body Mass Index 35.2 Const: Other: No acute distress Resp: Other: Clear to auscultation bilaterally no rales rhonchi or wheezes Cardio: Other: No S4; positive S1-S2; no S3 murmurs rubs or gallops GI: Other: Soft nontender nondistended with normoactive bowel sounds Extrem: Other: No edema bilaterally Objective Data Active Medications Acetaminophen (Acetaminophen 325 Mg Tablet) 650 mg PO Q6H PRN PRN Reason: Pain, Mild (Pain Scale 1-3) Last Admin: 06/09/22 03:42 Dose: 650 mg Documented By: LELAND Buspirone HCl (Buspirone Hcl 5 Mg Tablet) 15 mg PO TID [facility] Last Admin: 06/09/22 08:50 Dose: 15 mg Documented By: RUBIN Clonazepam (Clonazepam 0.5 Mg Tablet) 0.5 mg PO BID PRN PRN Reason: Anxiety Last Admin: 06/09/22 08:58 Dose: 0.5 mg Documented By: RUBIN Cyclobenzaprine HCl (Cyclobenzaprine Hcl 5 Mg Tablet) 5 mg PO BID [facility] Last Admin: 06/09/22 08:51 Dose: 5 mg Documented By: RUBIN Gabapentin (Gabapentin 400 Mg Capsule) 800 mg PO QID [facility] Last Admin: 06/09/22 08:51 Dose: 800 mg Documented By: RUBIN Heparin Sodium (Porcine) (Heparin Sodium,Porcine 5,000 Unit/Ml Vial) 5,000 unit SUBCUT Q8H [facility] Last Admin: 06/09/22 06:31 Dose: 5,000 unit Documented By: LELAND Hydroxyzine HCl (Hydroxyzine Hcl 25 Mg Tablet) 25 mg PO Q6H PRN PRN Reason: Anxiety Sodium Chloride (Ns) 1,000 mls @ 125 mls/hr IVCONT .Q8H [facility] Last Admin: 06/09/22 04:11 Dose: 125 mls/hr Documented By: LELAND Loratadine (Loratadine 10 Mg Tablet) 10 mg PO DAILY PRN PRN Reason: Allergy Symptoms Melatonin (Melatonin 3 Mg Tablet) 6 mg PO BEDTIME PRN PRN Reason: Insomnia Last Admin: 06/08/22 20:23 Dose: 6 mg Documented By: LELAND Methadone HCl (Methadone Hcl 20 Mg/2 Ml Oral.Conc) 145 mg PO DAILY [facility] Last Admin: 06/09/22 08:52 Dose: 145 mg Documented By: RUBIN Naloxone HCl (Naloxone Hcl Nasal 4 Mg [place]) 4 mg NOSTRILALT Q2M PRN PRN Reason: opioid overdose Nicotine (Nicotine 21 Mg Patch.Td24) 21 mg TRANSDERMA DAILY PRN PRN Reason: nicotine cravings Last Admin: 06/08/22 16:24 Dose: 21 mg Documented By: KATHERINE Nicotine Polacrilex (Nicotine Polacrilex 2 Mg Gum) 4 mg BUCCAL Q2H PRN PRN Reason: Nicotine Cravings Last Admin: 06/09/22 03:42 Dose: 4 mg Documented By: LELAND Pharmacy Consult (Consult Rx Perform Med Rec) 1 each MISCELLANE ONCE PRN PRN Reason: Consult order Propranolol HCl (Propranolol Hcl 10 Mg Tablet) 10 mg PO Q6H PRN; Protocol PRN Reason: Anxiety Senna (Sennosides 8.6 Mg Tablet) 17.2 mg PO BEDTIME PRN PRN Reason: Constipation Sodium Chloride (0.9 % Sodium Chloride Flush 3 Ml Syringe) 3 ml IVFLUSH QSHIFT [facility] Last Admin: 06/09/22 09:00 Dose: Not Given Documented By: RUBIN Non-Admin Reason: IV Running Thiamine HCl (Thiamine Hcl 100 Mg Tablet) 100 mg PO DAILY [facility] Last Admin: 06/09/22 08:51 Dose: 100 mg Documented By: RUBIN Topiramate (Topiramate 100 Mg Tablet) 200 mg PO BID [facility] Last Admin: 06/09/22 08:51 Dose: 200 mg Documented By: RUBIN Labs CBC & Chem 7: 06/09/22 05:12 06/09/22 05:12 Labs: Laboratory Results - last 24 hr 06/08/22 06/09/22 06/09/22 07:31 05:12 05:12 MCV 90.4 MCH 29.6 MCHC 32.8 RDW 13.7 Plt Count 87 L MPV 11.7 Immature Gran % (Auto) 0.5 H Neut % (Auto) 28.6 L Lymph % (Auto) 60.9 H [place] % (Auto) 7.7 Eos % (Auto) 1.8 Baso % (Auto) 0.5 Lymph # (Auto) 1.3 [place] # (Auto) 0.2 Eos # (Auto) 0.0 Baso # (Auto) 0.0 Abs Immat Gran (auto) 0.01 Absolute Neuts (auto) 0.6 L Absolute Nucleated RBC 0.000 Nucleated RBC % (auto) 0.0 Smear Tech's Comments VERIFIED Smear Path Review Cancelled Anion Gap 13 Estim Creat Clear Calc 123.4 Estimated GFR > 60 Fasting Glucose 126 H Calcium 8.4 Total Bilirubin 0.2 AST 190 H ALT 101 H Alkaline Phosphatase 79 Total Creatine Kinase 5644 H D Total Protein 5.8 L Albumin 3.4 L 06/09/22 05:12 MCV MCH MCHC RDW Plt Count MPV Immature Gran % (Auto) Neut % (Auto) Lymph % (Auto) [place] % (Auto) Eos % (Auto) Baso % (Auto) Lymph # (Auto) [place] # (Auto) Eos # (Auto) Baso # (Auto) Abs Immat Gran (auto) Absolute Neuts (auto) Absolute Nucleated RBC Nucleated RBC % (auto) Smear Tech's Comments Smear Path Review Anion Gap Estim Creat Clear Calc Estimated GFR Fasting Glucose Calcium Total Bilirubin AST ALT Alkaline Phosphatase Total Creatine Kinase Cancelled Total Protein Albumin Assessment and Plan (1) Rhabdomyolysis: Status: Acute (2) Transaminitis: Status: Acute (3) Opioid use disorder, moderate, in sustained remission, dependence: Status: Acute Plan 43-year-old female with a past medical history of anxiety/depression/bipolar disorder, history of polysubstance abuse, cocaine abuse/heroin abuse, opiate dependence on methadone program, recently finished section [place]; has been using cocaine for the past 2 days; diffuse body aches. Noted to have rhabdomyolysis. Admitted for further management. 1.Rhabdomyolysis: -improved with saline overnight.... CK 's responding to fluid volume -renal function stable -follow ck's/renals/divalents 2. Transaminitis -likely related to cocaine use -trending down -follow daily... If no continued improvement consider ultrasound right upper quadrant 3. Polysubstance Abuse -Methadone as ordered -Care team consults DVT prophylaxis: Subcu heparin Code status: Full code Will require ongoing hospitalization for IV volume repletion to treat rhabdomyolysis Quality Stroke Does the patient have a stroke diagnosis?: No VTE Prior VTE?: No VTE Risk Level:: Medical - moderate - high VTE Device Contraindication: Treatment Not Indicated VTE Drug Contraindication: N/A - Med Ordered
[2022-06-09] MEDS: Nicotine 21 MG PATCH.TD24 TRANSDERMA (10:56)
--- NOTE | 2022-06-09 15:36 | MHC.CM.PN ---
EMR REVIEWED, PT ADMITTED W/RHABDO, CM MET W/PT WHO REPORTS SHE IS HOMELESS AND NOT STAYING W/ANYONE, PT DENIES USE OF DME AND SERVICES HOWEVER IS AT [facility] ON METHADONE MAINTENANCE, PT REPORTS SHE WOULD LIKE AN INPT TX PROGRAM UPON D/C. PT DENIES MTG W/AUTOMOTIVE TITLE CLERK HOWEVER HAS HAD AN INTAKE DONE. PT VERIFIES SAMIR X3, PCP IS GUSTAVO TAVERA AT [facility] AND PT REPORTS HER MOTHER MATTEO JARAMILLO [phone], COPY REQUESTED. PER AUTOMOTIVE TITLE CLERK PT WAS SEC 12'D FROM [facility] TO [facility] AND WAS DISCHARGED 06/06/22, PT HAS BEEN RESTARTED ON METHADONE MAINTENANCE.
--- NOTE | 2022-06-09 15:36 | MHC.RECOVRN ---
Addendum entered by Rita Sánchez RN 06/09/22 15:58: Per patient request, t/w sent referral to [facility]. Original Note: T/W met w/ pt, pt awake to verbal stimulus and oriented. Pt reports 1 day Crack MARLENY use, smoking, upon being discharged from [facility] and prior to admittance at [facility]. Pt reports used some Fentanyl to come down from Crack use. Pt states is currently homeless. T/W and pt discussed options. Pt not interested at this time in IOP, pt expressed interest in [facility] level of care. Pt states not interested at this time in talking anymore as pt has back pain currently. T/W made pt aware will return tomorrow, t/w left resource folder w/ CSS/TSS contact information for pt to review.
[2022-06-09] MEDS: Propranolol HCL 10 MG TABLET PO (16:07)
[2022-06-09] MEDS: hydrOXYzine HCL 25 MG TABLET PO (16:07)
[2022-06-09] MEDS: Melatonin 3 MG TABLET 6 MG PO (21:23)
[2022-06-10] MEDS: Propranolol HCL 10 MG TABLET PO ×2 (01:04→13:24)
[2022-06-10] MEDS: 0.9 % Sodium Chloride Flush 3 ML SYRINGE IVFLUSH ×2 (01:04→09:15)
[2022-06-10] MEDS: Nicotine Polacrilex 2 MG GUM 4 MG BUCCAL ×4 (01:04→13:24)
[2022-06-10 04:00] VITALS: BP 125/63; PULSE 74; RESP 17; TEMP 36.9; O2SAT 97
[2022-06-10] MEDS: Heparin Sodium,Porcine 5,000 UNIT/ML VIAL 5000 UNIT SUBCUT ×2 (05:13→13:23)
[2022-06-10] MEDS: hydrOXYzine HCL 25 MG TABLET PO ×2 (05:14→13:24)
[2022-06-10 07:10] LABS: Alanine Aminotransferase 94 U/L (0-31); Albumin Level 3.3 g/dL (3.5-5.0); Alkaline Phosphatase 85 U/L (39-117); Anion Gap 14 (12-20); Aspartate Amino Transferase 128 U/L (5-31); Bilirubin Total 0.3 mg/dL (0.0-1.0); Blood Urea Nitrogen 8 mg/dL (9-16); Calcium 8.6 mg/dL (8.4-10.2); Carbon Dioxide 19 mmol/L (22-29); Chloride 114 mmol/L (96-108); Creatinine Clr Calc Pharmacy 116.7; Estimated Glomerular Filt Rate > 60; Glucose Fasting 133 mg/dL (60-99); Sodium 143 mmol/L (135-145); Total Protein 5.7 g/dL (6.5-8.0)
[2022-06-10 07:42] VITALS: BP 131/78; PULSE 65; RESP 18; TEMP 36.4; O2SAT 98
[2022-06-10] MEDS: Thiamine HCL 100 MG TABLET PO (09:13)
[2022-06-10] MEDS: Topiramate 100 MG TABLET 200 MG PO (09:13)
[2022-06-10] MEDS: Gabapentin 400 MG CAPSULE 800 MG PO ×2 (09:13→13:23)
[2022-06-10] MEDS: Cyclobenzaprine HCl 5 MG TABLET PO (09:13)
[2022-06-10] MEDS: clonazePAM 0.5 MG TABLET PO (09:13)
[2022-06-10] MEDS: methADONE HCl 20 MG/2 ML ORAL.CONC 145 MG PO (09:15)
[2022-06-10] MEDS: busPIRone HCl 5 MG TABLET 15 MG PO (09:20)
[2022-06-10 11:03] VITALS: BP 111/65; PULSE 63; RESP 18; TEMP 36.8; O2SAT 98
--- NOTE | 2022-06-10 12:14 | MHC.CM.PN ---
PER HOSPITALIST PT MEDICALLY CLEARED FOR D/C, CM HAS REACHED OUT TO RECOVERY NURSE REGARDING N CSS REFERRAL AND AWAITING RESPONSE. WHEN CM MET W/PT TO DISCUSS DISPO PT BECAME UPSET REPORTING SHE WASN'T READY AND C/O STILL HAVING PAIN,PT CLEARED FOR HOME BY PHYSICAL THERAPY. PER RECOVERY NURSE PT COULD HAVE A BED AT [facility] AT 5PM AND TRANSITION TO CSS AND WILL DISCUSS W/PT, HOSPITALIST AWARE AND WILL ALSO MEET W/PT TO DISCUSS PLAN.
--- NOTE | 2022-06-10 12:49 | HO.PM.IMPN ---
Subjective Subjective Date of Service: 06/10/22 Interval History: Rhabdomylsis Review of Systems Denies chest pain or shortness of breathor nausea vomiting diarrhea diffuse muscle pain that is somewhat improved Physical Exam Vital Signs: Vital Signs: Last Vital Signs Temp 98.2 F 06/10/22 11:03 Pulse 63 06/10/22 11:03 Resp 18 06/10/22 11:03 BP 111/65 06/10/22 11:03 Pulse Ox 98 06/10/22 11:03 O2 Del Method 06/10/22 11:03 BMI result Body Mass Index 35.2 Appearance: Alert.? Oriented X3.? not in distress.? cvs: rrr, [id number] res: air entry fair . abd: no rebound or guarding ,nt, bs present. ext pulses present , no cyanosis. neuro: axo3 , nonfocal. Objective Data Active Medications Acetaminophen (Acetaminophen 325 Mg Tablet) 650 mg PO Q6H PRN PRN Reason: Pain, Mild (Pain Scale 1-3) Last Admin: 06/09/22 03:42 Dose: 650 mg Documented By: LELAND Buspirone HCl (Buspirone Hcl 5 Mg Tablet) 15 mg PO TID [facility] Last Admin: 06/10/22 09:20 Dose: 15 mg Documented By: LENORE Clonazepam (Clonazepam 0.5 Mg Tablet) 0.5 mg PO BID PRN PRN Reason: Anxiety Last Admin: 06/10/22 09:13 Dose: 0.5 mg Documented By: LENORE Cyclobenzaprine HCl (Cyclobenzaprine Hcl 5 Mg Tablet) 5 mg PO BID [facility] Last Admin: 06/10/22 09:13 Dose: 5 mg Documented By: LENORE Gabapentin (Gabapentin 400 Mg Capsule) 800 mg PO QID [facility] Last Admin: 06/10/22 09:13 Dose: 800 mg Documented By: LENORE Heparin Sodium (Porcine) (Heparin Sodium,Porcine 5,000 Unit/Ml Vial) 5,000 unit SUBCUT Q8H [facility] Last Admin: 06/10/22 05:13 Dose: 5,000 unit Documented By: LELAND Hydroxyzine HCl (Hydroxyzine Hcl 25 Mg Tablet) 25 mg PO Q6H PRN PRN Reason: Anxiety Last Admin: 06/10/22 05:14 Dose: 25 mg Documented By: LELAND Loratadine (Loratadine 10 Mg Tablet) 10 mg PO DAILY PRN PRN Reason: Allergy Symptoms Melatonin (Melatonin 3 Mg Tablet) 6 mg PO BEDTIME PRN PRN Reason: Insomnia Last Admin: 06/09/22 21:23 Dose: 6 mg Documented By: LELAND Methadone HCl (Methadone Hcl 20 Mg/2 Ml Oral.Conc) 145 mg PO DAILY [facility] Last Admin: 06/10/22 09:15 Dose: 145 mg Documented By: LENORE Naloxone HCl (Naloxone Hcl Nasal 4 Mg [place]) 4 mg NOSTRILALT Q2M PRN PRN Reason: opioid overdose Nicotine (Nicotine 21 Mg Patch.Td24) 21 mg TRANSDERMA DAILY PRN PRN Reason: nicotine cravings Last Admin: 06/09/22 10:56 Dose: 21 mg Documented By: RUBIN Nicotine Polacrilex (Nicotine Polacrilex 2 Mg Gum) 4 mg BUCCAL Q2H PRN PRN Reason: Nicotine Cravings Last Admin: 06/10/22 09:13 Dose: 4 mg Documented By: LENORE Pharmacy Consult (Consult Rx Perform Med Rec) 1 each MISCELLANE ONCE PRN PRN Reason: Consult order Propranolol HCl (Propranolol Hcl 10 Mg Tablet) 10 mg PO Q6H PRN; Protocol PRN Reason: Anxiety Last Admin: 06/10/22 01:04 Dose: 10 mg Documented By: LELAND Senna (Sennosides 8.6 Mg Tablet) 17.2 mg PO BEDTIME PRN PRN Reason: Constipation Sodium Chloride (0.9 % Sodium Chloride Flush 3 Ml Syringe) 3 ml IVFLUSH QSHIFT [facility] Last Admin: 06/10/22 09:15 Dose: 3 ml Documented By: LENORE Thiamine HCl (Thiamine Hcl 100 Mg Tablet) 100 mg PO DAILY [facility] Last Admin: 06/10/22 09:13 Dose: 100 mg Documented By: LENORE Topiramate (Topiramate 100 Mg Tablet) 200 mg PO BID [facility] Last Admin: 06/10/22 09:13 Dose: 200 mg Documented By: LENORE Labs CBC & Chem 7: 06/09/22 05:12 06/10/22 05:27 Labs: Laboratory Results - last 24 hr 06/10/22 06/10/22 05:27 05:27 Anion Gap 14 Estim Creat Clear Calc 116.7 Estimated GFR > 60 Fasting Glucose 133 H Calcium 8.6 Total Bilirubin 0.3 AST 128 H ALT 94 H Alkaline Phosphatase 85 Total Creatine Kinase 2504 H D Total Protein 5.7 L Albumin 3.3 L Assessment and Plan (1) Rhabdomyolysis: Status: Acute (2) Transaminitis: Status: Acute (3) Opioid use disorder, moderate, in sustained remission, dependence: Status: Acute Plan 43-year-old female with a past medical history of anxiety/depression/bipolar disorder, history of polysubstance abuse, cocaine abuse/heroin abuse, opiate dependence on methadone program, recently finished section [place]; has been using cocaine for the past 2 days; diffuse body aches. Noted to have rhabdomyolysis. Admitted for further management. 1.Rhabdomyolysis: CK 's improved significant to iv fluid . -renal function stable -follow ck's seems improving to 2500 Hold IV fluid, encouraged to take p.o. fluid. 2. Transaminitis -likely related to cocaine use -trending down -improving daily abd us in 12/09:Echogenic liver probably suggestive of fatty infiltration. moniter closely 3. Polysubstance Abuse -Methadone as ordered -Care team consults-recommended for drug rehab program.. 4. Leukopenia and thrombocytopenia:? Chronic Fluctuating-possibly related to drug use moniter cbc D[facility] to thrombocytopenia Code status: Full code inpatient need : Patient is awaiting for drug rehab program, refusing to go today. Quality Stroke Does the patient have a stroke diagnosis?: No VTE Prior VTE?: No VTE Risk Level:: Medical - moderate - high VTE Device Contraindication: Treatment Not Indicated VTE Drug Contraindication: N/A - Med Ordered
[2022-06-10] MEDS: Nicotine 21 MG PATCH.TD24 TRANSDERMA (13:24)
[2022-06-10 13:27] VITALS: BP 111/65; PULSE 63; O2SAT 98
--- NOTE | 2022-06-10 14:06 | P.CDIC_ITS ---
CDI Concurrent Query Documentation Clarification: PHYSICIAN'S DOCUMENTATION REQUEST Date of Query: 06/10/22 1409 Patient Name: Carlota Sebastian Admit Date: 06/07/22 Dear Doctor, A review of the medical record indicates additional documentation may be needed. Please review below and update the documentation accordingly. Clinical Indicators: Is there a diagnosis that correlates with these lab findings below: Risk Factors/Clinical Indicators/Treatments LABS: WBC - 2.2 RBC - 4.15 PLT - 87 ABSOLUTE NEUTS - 0.6 Other indicators: -History of polysubstance abuse -Patient admitted after using $2000 wor th of cocaine Based on the above, could you clarify in the Progress Notes the appropriate diagnosis, if significant, that supports the above abnormalities and additional evaluation, monitoring, and/or treatment rendered: * Pancytopenia - due to drugs * Labs indicate a diagnosis of (please specify) * Other (please specify) * Unable to determine Use of terms such as suspected, likely, concern for, or probable (associated with a specific diagnosis that is being evaluated, monitored, or treated as if it exists) are acceptable and can be coded in the inpatient setting, when documented at the time of discharge. Thank you, Ines Zuñiga MS, RN, CCRN Extension: [phone] Please use your independent medical judgment in providing your response. THIS QUERY IS PART OF THE PERMANENT MEDICAL RECORD Provider Response: Other Other Diagnosis: Leukopenia and thrombocytopenia-intermittent, seem possible related to drug use.
--- NOTE | 2022-06-10 14:18 | MHC.RECOVRN ---
T/W met w/ pt. Pt alert to verbal stimuli and oriented. T/W explained that there are no female CSS beds, however [facility] has offered pt a female detox bed then pt would transition to CSS. Pt reminded per instruction of [facility] staff, that if pt did not come with control meds in hand nor coordinate delivery of control meds to [facility], then pt would be tappered off of Gabapentin and Clonazepam. T/W provided pt w/ [facility] number for pt to call at 2:20pm to do intake with [facility]. T/W provided pt with number to pharmacy to discuss delivery of control medications to [facility]. Pt verbalized understanding. CM and Provider aware, as pt has been cleared for discharge.
--- NOTE | 2022-06-10 14:51 | MHC.CM.PN ---
CALL TO [facility] ([facility]) PATIENT IS STILL ACTIVE WITH PRACTICE AND HAS AN APPT. ON 06/13/22 @ 14:00 HOSPITALIST AWARE THAT PATIENT IS REFUSING TO LEAVE TODAY.
--- NOTE | 2022-06-10 15:03 | MHC.RECOVRN ---
T/W met w/ pt, pt alert to verbal stimuli and oriented. T/W met w/ pt to discuss update on intake and inquiry into med delivery. Pt states did not call [facility] at [facility] and did not call pharmacy. Pt states concerned and does not want to ger off control medications and knows that pharmacy does not deliver meds . T/W reviewed that at this time all efforts for further treatment have been exhausted, no [facility] beds available, only bed available was at [facility]. Pt states not interested at this time in [facility]. CM aware.
--- NOTE | 2022-06-10 15:36 | P.DS_ITS ---
DS: Providers Provider Date of Service: 06/10/22 Date of admission: 06/07/22 21:14 Primary care physician: Nonstaff Physician Consults: 06/07/22 23:16 Addiction Medicine Routine Consulting Provider: Liset Brambila Reason for consultation: pt on methadone; used 2000$ cocaine prior to coming in DS: Diagnosis Discharge Diagnosis (1) Rhabdomyolysis: Status: Acute (2) Transaminitis: Status: Acute (3) Opioid use disorder, moderate, in sustained remission, dependence: Status: Acute DS: Summary Hospital Course Hospital Course: 43-year-old female with a past medical history of anxiety/depression/bipolar disorder, history of polysubstance abuse, cocaine abuse/heroin abuse, opiate dependence on methadone program, recently finished section 35; has been using cocaine for the past 2 days; mentions that she used about 2000 dollars worth of cocaine IV; and has not been moving around and mostly in the bed for the past 2 days.? Hence presented to the hospital for further evaluation.? Reports she has been having diffuse body aches.? Denies any falls or trauma.? Denies any headaches or blurry visions.? Denies any numbness tingling or focal weakness. Patient does report diffuse crampy pain in the legs. Patient denies any suicidal or homicidal ideations. Review of all other systems is negative except mentioned above ER course: Per ER team patient initially complained of disease body pains including back aches, patient has no obvious signs of infection, normal ESR and CRP, less concern for any spinal infection, normal neurological examination.? On labs noted to elevated CPk in .? Creatinine within normal limits.? Patient was given IV fluids.? Admitted to the hospital for further management. Hospital course: Patient was admitted for rhabdomyolysis secondary to possible cocaine use. Abdomen says seems to be improved significantly with hydration. Encouraged for aggressive p.o. hydration. Transaminitis: Mildly elevated trending down: Chronically fluctuating, monitor liver function test outpatient with PCP and further management as per PCP. Patient was strongly advised to abstain from drug use. abd us in 12/09:Echogenic liver probably suggestive of fatty infiltration. also has hx of HCV:outpatient follow up with pcp. Leukopenia/thrombocytopenia: Chronically fluctuating, monitor CBC with PCP and consider outpatient hematology evaluation if needed for leukopenia/thrombocytopenia. back pain : seems to be improved , walked fine when leaving AMA -if reccurrent back pain consider outpatient MRI (please see ct scan results in imaging section) Patient was advised strongly for for drug program but patient wants to sign AMA and does not want go to drug program currently, She says her medications are with her pharmacy,also offered to help currently with medications by calling her pharmacy but she currently delines it and wants to leave AMA . she walked to the elevator with her belongings without any issues when she was leaving. Time Spent with Patient Time attestation: Total time spent providing and/or coordinating discharge services: Discharge coordination time: Greater than 30 minutes Quality: Safe Use of Opioids Does Pt have an Active Cancer Diagnosis on the Problem List?: No Quality: Stroke Does the patient have a stroke diagnosis?: No Physical Exam Vital Signs: Vital Signs: Last Vital Signs Temp 98.2 F 06/10/22 11:03 Pulse 63 06/10/22 13:27 Resp 18 06/10/22 11:03 BP 111/65 06/10/22 13:27 Pulse Ox 98 06/10/22 13:27 O2 Del Method 06/10/22 11:03 BMI result Body Mass Index 35.2 ? Appearance: Alert.? Oriented X3.? not in distress.? cvs: rrr, [id number] res: air entry fair . abd: no rebound or guarding ,nt, bs present. ext pulses present , no cyanosis. neuro: axo3 , nonfocal. DS: Data Data Completed and Pending Completed studies during hospitalization [Text1]: Procedures Drainage of Right Upper Arm Subcutaneous Tissue and Fascia, Open Approach (04/03/21) Insertion of Infusion Device into Left Basilic Vein, Percutaneous Approach (04/21/21) Insertion of Infusion Device into Left Brachial Vein, Percutaneous Approach (01/03/21) Labs on day of discharge: Laboratory Results - last 24 hr 06/10/22 06/10/22 05:27 05:27 Sodium 143 Potassium 4.0 Chloride 114 H Carbon Dioxide 19 L Anion Gap 14 BUN 8 L Creatinine 0.73 Estim Creat Clear Calc 116.7 Estimated GFR > 60 Fasting Glucose 133 H Calcium 8.6 Total Bilirubin 0.3 AST 128 H ALT 94 H Alkaline Phosphatase 85 Total Creatine Kinase 2504 H D Total Protein 5.7 L albumin 3.3 L ?US/US venous duplex LE BI IMPRESSION: No DVT demonstrated in the bilateral lower extremity. Ct spine: CT/CT lumbar spine wo IV con IMPRESSION: -No CT evidence of acute fracture or subluxation. ? - Limited evaluation in the disc spaces on CT. Mild L3-L4 spondylosis, with posterior disc bulge, also seen on the previous MRI. At L4-L5, posterior disc bulge with narrowing of bilateral neural foramen, question increased prominence as compared to the previous MRI. At L5-S1, question posterior disc bulge, evaluation limited. Consider further evaluation with MRI. ? Discharge Plan Discharge Patient Disposition: Left Against Medical Advice Discharge Diagnosis: Rhabdomylsis, intermitent leucopenia/throm bocytopenia,elevated Lft's Referrals: Cici Corey MD [Physician] - 1 Week Physician,Charissa [Primary Care Provider] - 1 Week Discharge Medications: Continued methadone [Methadose] 10 mg/mL Concentrate 135 mg PO DAILY Qty: 0 0RF Rx Instructions: Partial Fill upon patient request. nicotine (polacrilex) 2 mg Gum 4 mg buccal Q2H PRN (Reason: Nicotine Cravings) Qty: 30 0RF cyclobenzaprine 5 mg Tablet 5 mg PO BID Qty: 14 0RF nicotine 21 mg/24 hr Patch 24 Hour 21 mg transdermal DAILY PRN (Reason: nicotine cravings) Qty: 30 0RF thiamine mononitrate (vit B1) 100 mg Tablet 100 mg PO DAILY Qty: 30 0RF epbclccd-ept-qbha fum-folic ac 7.5 mg iron-400 mcg tablet 1 tab PO DAILY Qty: 30 0RF naloxone [Narcan] 4 mg/actuation spray,non-aerosol 4 mg intranasal Q2M PRN (Reason: opioid overdose) Qty: 2 0RF Rx Instructions: spray 1 dose into ONE nostril; alternate nostrils w each dose until help arrives gabapentin 800 mg tablet 1 tab PO QID topiramate 200 mg tablet 1 tab PO BID Cetaphil Bar 1 appl TOPICAL QID PRN (Reason: skin protectant) diclofenac potassium 50 mg tablet 1 tab PO BID hydroxyzine HCl 25 mg tablet 1 tab PO Q6H PRN (Reason: Anxiety) buspirone 15 mg tablet 1 tab PO TID propranolol 10 mg tablet 10 mg PO Q6H PRN (Reason: Anxiety) Protocol: Hold for SBP/HR < HOLD for SBP < : 90 HOLD for HR < : 60 loratadine 10 mg tablet 1 tab PO DAILY PRN (Reason: Allergy Symptoms) clonazepam 0.5 mg tablet 0.5 mg PO BID PRN (Reason: Anxiety) Discharge Orders: Discharge Order (Routine); Ordered 06/10/22 Ordered By: Poli Deshpande Diet: Advance to usual diet Activity on Discharge: As tolerated Stand Alone Forms: Patient Portal Discharge page Care Plan Goals: Patient was admitted for rhabdomyolysis secondary to possible cocaine use. Abdomen says seems to be improved significantly with hydration. Encouraged for aggressive p.o. hydration. Transaminitis: Mildly elevated trending down: Chronically fluctuating, monitor liver function test outpatient with PCP and further management as per PCP. Patient was strongly advised to abstain from drug use. Leukopenia/thrombocytopenia: Chronically fluctuating, monitor CBC with PCP and consider outpatient hematology evaluation if needed for leukopenia/thrombocytopenia. Patient was advised strongly for for drug program but patient wants to sign AMA and does not want go to drug program currently. Health Concerns: Encouraged for hydration. Monitor CBC, BMP, LFTs with PCP . Plan of Treatment: As above. Assessment: As above. Patient Instructions: Thrombocytopenia (DC) Discharge Date/Time: 06/10/22 15:37
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
== END 2022-06-10 15:37 | disposition left against medical advice (07) | DRG 816 ==
LOC: HO.ED 18:31 → HO.EDOVER 21:27 → HO.S3 06-08 13:19
PROVIDERS: Hospitalist; Physician Assistant; Physician Assistant Medical; Admitting Provider Hospitalist; Emergency Provider Internal Medicine; PCP Internal Medicine; Visit Provider Internal Medicine
DX: T40.5X1A Poisoning by cocaine, accidental (unintentional), initial encounter (principal); D61.811 Other drug-induced pancytopenia; M62.82 Rhabdomyolysis; E86.0 Dehydration; F11.20 Opioid dependence, uncomplicated; F43.12 Post-traumatic stress disorder, chronic; F14.10 Cocaine abuse, uncomplicated; F31.9 Bipolar disorder, unspecified; M54.9 Dorsalgia, unspecified; R74.01 Elevation of levels of liver transaminase levels; F19.10 Other psychoactive substance abuse, uncomplicated; Z20.822 Contact with and (suspected) exposure to COVID-19; Z87.891 Personal history of nicotine dependence; Z91.013 Allergy to seafood; Z88.1 Allergy status to other antibiotic agents; Z88.2 Allergy status to sulfonamides; Z88.8 Allergy status to other drugs, medicaments and biological substances; Z79.899 Other long term (current) drug therapy
CPT/HCPCS: 36415; 71045; 72131; 80048; 80053; 80307; 81001; 82077; 82550; 83735; 84702; 85025; 85652; 86140; 87635; 93970; 96360; 96361; 97162; 99285

== ENCOUNTER 2022-06-12 03:56 | Emergency (ER) | payer OTHER, SELFPAY ==
[2022-06-12] VITALS (8 sets, daily range): BP systolic 106–134; BP diastolic 65–71; PULSE 54–94; RESP 11–21; TEMP 36–36.9; O2SAT 95–100; BMI 34.7
--- NOTE | 2022-06-12 04:25 | ED.OVERDOSE ---
HPI - Overdose General Chief Complaint: Overdose <Alisha Aguillon MD - Last Filed: 06/12/22 06:56> Stated Complaint: OD, 2MG NARCAN GIVEN <Alisha Aguillon MD - Last Filed: 06/12/22 06:56> Time Seen by Provider: 06/12/22 04:23 <Alisha Aguillon MD - Last Filed: 06/12/22 06:56> History of Present Illness HPI Narrative: Patient is a 42-year-old female positive history of cocaine history opiate abuse patient long history of polysubstance abuse. Found altered with a normal sugar not breathing. Pinpoint pupil. Patient was given 2 of Narcan by EMS. With good results patient woke up somewhat. Still lethargic patient admits to using crack cocaine tonight. Patient denies any suicidal homicidal ideation wants to go to detox. <Alisha Aguillon MD - Last Filed: 06/12/22 06:56> Related Data Home Medications: Home Medications Medication Instructions Recorded Confirmed buspirone 15 mg tablet 1 tab PO TID 06/07/22 06/12/22 clonazepam 0.5 mg tablet 0.5 mg PO BID PRN Anxiety 06/07/22 06/12/22 diclofenac potassium 50 mg tablet 1 tab PO BID 06/07/22 06/12/22 gabapentin 800 mg tablet 1 tab PO QID 06/07/22 06/12/22 hydroxyzine HCl 25 mg tablet 1 tab PO Q6H PRN Anxiety 06/07/22 06/12/22 loratadine 10 mg tablet 1 tab PO DAILY PRN Allergy Symptoms 06/07/22 06/12/22 propranolol 10 mg tablet 10 mg PO Q6H PRN Anxiety 06/07/22 06/12/22 soap (Cetaphil Bar) 1 appl topical QID PRN skin 06/07/22 06/12/22 protectant topiramate 200 mg tablet 1 tab PO BID 06/07/22 06/12/22 Previous Rx's Medication Instructions Recorded methadone 10 mg/mL oral 135 mg (13.5 mL) PO DAILY #0 mL 04/15/22 concentrate (Methadose) cyclobenzaprine 5 mg tablet 5 mg PO BID #14 tabs 04/23/22 lieeoxwmdadk-lykaecsm-xttz 1 tab PO DAILY #30 tabs 04/23/22 fumarate 7.5 mg-folic acid 400 mcg tablet nicotine (polacrilex) 2 mg gum 4 mg buccal Q2H PRN Nicotine 04/23/22 Cravings #30 ea nicotine 21 mg/24 hr daily 21 mg transdermal DAILY PRN 04/23/22 transdermal patch nicotine cravings #30 ea thiamine mononitrate (vit B1) 100 100 mg PO DAILY #30 tabs 04/23/22 mg tablet naloxone 4 mg/actuation nasal 4 mg intranasal Q2M PRN opioid 04/24/22 spray (Narcan) overdose #2 ea <Alisha Aguillon MD - Last Filed: 06/12/22 06:56> Allergies/Adverse Reactions: Allergies Allergy/AdvReac Type Severity Reaction Status Date / Time quetiapine [From SEROQUEL] Allergy Severe THROAT Verified 04/01/22 10:03 SWELLING azithromycin [AZITHROMYCIN] Allergy Unknown Unknown Verified 04/01/22 10:03 erythromycin base Allergy Unknown RASH Verified 05/22/21 18:18 [ERYTHROMYCIN BASE] olanzapine [From ZYPREXA] Allergy Unknown PEDAL EDEMA Verified 05/22/21 18:18 sulfacetamide Allergy Unknown Unknown Verified 05/22/21 18:18 [From Sulfacet-R] sulfamethoxazole Allergy Unknown ITCHING Verified 05/22/21 18:18 [From BACTRIM] sulfur [From Sulfacet-R] Allergy Unknown Unknown Verified 05/22/21 18:18 trimethoprim [From BACTRIM] Allergy Unknown ITCHING Verified 05/22/21 18:18 risperidone [From RISPERDAL] AdvReac Unknown TWITCHING Verified 04/01/22 10:03 seafood AdvReac Unknown Vomiting Verified 05/22/21 18:18 shellfish derived AdvReac Unknown VOMITING Verified 04/01/22 10:03 [SHELLFISH DERIVED] trazodone AdvReac restless Verified 04/28/22 13:01 legs <Alisha Aguillon MD - Last Filed: 06/12/22 06:56> Review of Systems Review of Systems: Positive polysubstance abuse Denies suicidal homicidal ideation Unable to obtain full review systems secondary to patient condition <Alisha Aguillon MD - Last Filed: 06/12/22 06:56> Yes all other systems are reviewed and are negative <Alisha Aguillon MD - Last Filed: 06/12/22 06:56> [facility] Past Medical History Attestation statement: The following information was validated with the patient. <Alisha Aguillon MD - Last Filed: 06/12/22 06:56> Medical History: Medical History Chronic post-traumatic stress disorder (PTSD) Opioid dependence Opioid use disorder, moderate, in sustained remission, dependence Substance abuse Substance abuse <Alisha Aguillon MD - Last Filed: 06/12/22 06:56> Social History Social History: Social History Household Members: None Housing: Homeless Housing Other:: patient states she is homeless Do you presently have visiting nurse or other home services: No Unable to assess alcohol history related to: Refusing to respond Alcohol intake: current Alcohol intake frequency: does not drink Patient Tobacco Use Status: Former Tobacco user Tobacco use type: Cigarette Cigarette Packs Per Day: 1 Cigarettes Per Day: 20.0 Years Smoked: 10+ e-Cigarette/Vaping Use: Former Use Second Hand Smoke Exposure: Yes Use of substances other than those prescribed or required for medical reasons: Yes Substance Use Type: Crack/Cocaine and Heroin Last Used Substance: Just Prior to Admission Advance Directives: Yes Advance Directives on File: Yes Advance Directives Date on File: 12/28/20 service: No Current occupational status: disabled Sexual orientation: Did not discuss <Alisha Aguillon MD - Last Filed: 06/12/22 06:56> Physical Exam Vital Signs: Vital Signs: Last Vital Signs Temp 98.6 F 06/13/22 09:54 Pulse 60 06/13/22 09:54 Resp 17 06/13/22 09:54 BP 137/74 06/13/22 09:54 Pulse Ox 100 06/13/22 09:54 O2 Del Method 06/13/22 09:54 BMI result Body Mass Index 34.7 Appearance: Alert. Oriented X3. No acute distress. Eyes: Pupils equal, round and reactive to light. ENT: Pharynx normal. Neck: Normal inspection. Neck supple. No lymph nodes noted. No crepitus CVS: Normal heart rate and rhythm. Pulses normal. Normal S1 and S2 Respiratory: No respiratory distress. Breath sounds normal. No Wheezing. No rales Abdomen: Soft and nontender. No rigidity. No distention. good BS x4 Skin: Skin warm and dry. Normal skin color. Normal skin turgor. Extremities: No lower extremity edema. Neurovascular intact to all extremities. No Lacerations. No Rash Neuro: Oriented X 3. No motor deficit. No sensory deficit. Moving all extermities. No slurred speech <Alisha Aguillon MD - Last Filed: 06/12/22 06:56> Vital Signs: Last Vital Signs Temp 98.6 F 06/13/22 09:54 Pulse 60 06/13/22 09:54 Resp 06/13/22 09:54 BP 137/74 06/13/22 09:54 Pulse Ox 100 06/13/22 09:54 O2 Del Method 06/13/22 09:54 BMI result Body Mass Index 34.7 <Niki Man DO - Last Filed: 06/12/22 13:13> Vital Signs: Last Vital Signs Temp 98.6 F 06/13/22 09:54 Pulse 60 06/13/22 09:54 Resp 06/13/22 09:54 BP 137/74 06/13/22 09:54 Pulse Ox 100 06/13/22 09:54 O2 Del Method 06/13/22 09:54 BMI result Body Mass Index 34.7 <ALISON Parrish - Last Filed: 06/12/22 17:30> Vital Signs: Last Vital Signs Temp 98.6 F 06/13/22 09:54 Pulse 60 06/13/22 09:54 Resp 06/13/22 09:54 BP 137/74 06/13/22 09:54 Pulse Ox 100 06/13/22 09:54 O2 Del Method 06/13/22 09:54 BMI result Body Mass Index 34.7 <ALISON Bradley - Last Filed: 06/12/22 18:02> Vital Signs: Last Vital Signs Temp 98.6 F 06/13/22 09:54 Pulse 60 06/13/22 09:54 Resp 06/13/22 09:54 BP 137/74 06/13/22 09:54 Pulse Ox 100 06/13/22 09:54 O2 Del Method 06/13/22 09:54 BMI result Body Mass Index 34.7 <Elton Quintana MD - Last Filed: 06/13/22 12:00> Course Course Course Narrative: CPK halved will repeat 2L of IVF and repeat CPK at 3pm. Patient still wants detox. Baseline CPK around 2500 <Niki Man DO - Last Filed: 06/12/22 13:13> CPK halved will repeat 2L of IVF and repeat CPK at 3pm. Patient still wants detox. Baseline CPK around 2500 1715--CPK still elevated to 3081 after 4 L of IVF. Plan to admit for further management <ALISON Parrish - Last Filed: 06/12/22 17:30> Reevaluation(s) Reevaluation #1: Discussed case w/ hospitalist Dr. Tanner feels as though patient doesn't require hospital admission. Patient doesnt want to stay and two days ago patient left AMA. At this time patient comfortable eating, drinking, making urine no signs of JOSEPHINE, patient can be DC home with out patient follow up. She is agreeable to this plan tells me she would like to go home. Denies SI and HI will dc with [facility] folllow up. I did put in a care team consult. Patient makes it clear doesnt want medical admission tells me she wants to stop using drugs and wants to speak to care team for options. Comfortable w plan. <ALISON Bradley - Last Filed: 06/12/22 18:02> Discussed case w/ hospitalist Dr. Tanner feels as though patient doesn't require hospital admission. Patient doesnt want to stay and two days ago patient left AMA. At this time patient comfortable eating, drinking, making urine no signs of JOSEPHINE, patient can be DC home with out patient follow up. She is agreeable to this plan tells me she would like to go home. Denies SI and HI will dc with [facility] folllow up. I did put in a care team consult. Patient makes it clear doesnt want medical admission tells me she wants to stop using drugs and wants to speak to care team for options. Comfortable w plan. <Elton Quintana MD - Last Filed: 06/13/22 12:00> Time: 17:55 <ALISON Bradley - Last Filed: 06/12/22 18:02> Reevaluation #2: At this time patient will be placed in observation to allow time for patien to be evaluated by the behavioral health team. <ALISON Bradley - Last Filed: 06/12/22 18:02> Time: 18:02 <ALISON Bradley - Last Filed: 06/12/22 18:02> Time: 11:58 <Elton Quintana MD - Last Filed: 06/13/22 12:00> Additional Reevaluation(s): Patient has been stable. Her last CPK is 2655 which is significantly decreased from yesterday morning at 6165. Still awaiting placement <Elton Quintana MD - Last Filed: 06/13/22 12:00> MDM - Overdose MDM Narrative Medical decision making narrative: Patient is 42 years old long history of polysubstance abuse was in the emergency department a few days ago at that time patient had rhabdo. Patient today admits to using narcotics and cocaine. Subsequently requiring Narcan to reverse the narcotic. Patient denies any suicidal homicidal ideation. Does want detox. Patient's urine was positive for fentanyl, opiate and cocaine. Patient's CPK today was over 6000. This is elevated from previous of 1999. Will give IV fluids. Will need close monitoring. Repeat CPK in approximately 6 hours. <Alisha Aguillon MD - Last Filed: 06/12/22 06:56> Lab Data Result diagrams: : 06/12/22 06:08 06/12/22 11:54 <Alisha Aguillon MD - Last Filed: 06/12/22 06:56> Labs: Lab Results 06/12/22 06/12/22 06/12/22 Range/Units 05:56 05:56 06:08 WBC 3.3 L (4.8-10.8) X10*3/uL RBC 4.05 L (4.20-5.50) X10*6/uL Hgb 12.1 (12.0-16.0) g/dl Hct 35.5 L (37.0-47.0) % MCV 87.7 (80.0-98.0) fL MCH 29.9 (27.0-33.0) pg MCHC 34.1 (31.0-35.0) g/dl RDW 13.2 (11.0-16.0) % Plt Count 115 L D (160-400) X10*3/uL MPV 9.8 (9.4-12.3) fL Immature Gran % (Auto) 0.0 (0.0-0.4) % Neut % (Auto) 53.5 (45-73) % Lymph % (Auto) 32.4 (20-40) % [place] % (Auto) 9.8 (2-11) % Eos % (Auto) 3.7 (0-4) % Baso % (Auto) 0.6 (0-2) % Lymph # (Auto) 1.1 L (1.2-4.9) X10*3/uL [place] # (Auto) 0.3 (0.1-1.2) X10*3/uL Eos # (Auto) 0.1 (0.0-0.4) X10*3/uL Baso # (Auto) 0.0 (0.0-0.2) X10*3/uL Abs Immat Gran (auto) 0.00 (0.00-0.03) X10*3/uL Absolute Neuts (auto) 1.8 L (2.0-8.3) x10*3/uL Absolute Nucleated RBC 0.000 (0.0-0.012) X10*3/uL Nucleated RBC % (auto) 0.0 (0.0-0.2) /100WBC Sodium (135-145) mmol/L Potassium (3.3-5.1) mmol/L Chloride (96-108) mmol/L Carbon Dioxide (22-29) mmol/L Anion Gap (12-20) BUN (9-16) mg/dL Creatinine (0.5-1.4) mg/dL Estim Creat Clear Calc Estimated GFR Random Glucose (60-115) mg/dL Calcium (8.4-10.2) mg/dL Total Bilirubin (0.0-1.0) mg/dL AST (5-31) U/L ALT (0-31) U/L Alkaline Phosphatase (39-117) U/L Total Creatine Kinase (26-140) U/L Total Protein (6.5-8.0) g/dL Albumin (3.5-5.0) g/dL Urine Test NEGATIVE (NEGATIVE) Salicylates (15-30) mg/dL Urine Opiates Screen POSITIVE H (Not Detect) Urine Fentanyl Screen POSITIVE H (Not Detect) Acetaminophen (<30) mcg/mL Ur Barbiturates Screen Not Detected (Not Detect) Ur Phencyclidine Scrn Not Detected (Not Detect) Ur Amphetamines Screen Not Detected (Not Detect) U Benzodiazepines Scrn Not Detected (Not Detect) Urine Cocaine Screen POSITIVE H (Not Detect) U Marijuana (THC) Screen Not Detected (Not Detect) Ethyl Alcohol mg/dL COVID-19 (ZACK) (Negative) COVID-19 Clin Com 06/12/22 06/12/22 06/12/22 Range/Units 06:08 06:08 11:54 WBC (4.8-10.8) X10*3/uL RBC (4.20-5.50) X10*6/uL Hgb (12.0-16.0) g/dl Hct (37.0-47.0) % MCV (80.0-98.0) fL MCH (27.0-33.0) pg MCHC (31.0-35.0) g/dl RDW (11.0-16.0) % Plt Count (160-400) X10*3/uL MPV (9.4-12.3) fL Immature Gran % (Auto) (0.0-0.4) % Neut % (Auto) (45-73) % Lymph % (Auto) (20-40) % [place] % (Auto) (2-11) % Eos % (Auto) (0-4) % Baso % (Auto) (0-2) % Lymph # (Auto) (1.2-4.9) X10*3/uL [place] # (Auto) (0.1-1.2) X10*3/uL Eos # (Auto) (0.0-0.4) X10*3/uL Baso # (Auto) (0.0-0.2) X10*3/uL Abs Immat Gran (auto) (0.00-0.03) X10*3/uL Absolute Neuts (auto) (2.0-8.3) x10*3/uL Absolute Nucleated RBC (0.0-0.012) X10*3/uL Nucleated RBC % (auto) (0.0-0.2) /100WBC Sodium 144 142 (135-145) mmol/L Potassium 3.2 L 5.1 D (3.3-5.1) mmol/L Chloride 108 114 H (96-108) mmol/L Carbon Dioxide 22 17 L (22-29) mmol/L Anion Gap 17 16 (12-20) BUN 10 10 (9-16) mg/dL Creatinine 0.77 0.63 (0.5-1.4) mg/dL Estim Creat Clear Calc 113.6 138.9 Estimated GFR > 60 > 60 Random Glucose 99 84 (60-115) mg/dL Calcium 9.2 D 8.3 L D (8.4-10.2) mg/dL Total Bilirubin 0.9 (0.0-1.0) mg/dL AST 218 H (5-31) U/L ALT 127 H (0-31) U/L Alkaline Phosphatase 87 (39-117) U/L Total Creatine Kinase 6165 H D 3741 H D (26-140) U/L Total Protein 6.6 (6.5-8.0) g/dL Albumin 4.0 D (3.5-5.0) g/dL Urine Test (NEGATIVE) Salicylates < 5.0 L (15-30) mg/dL Urine Opiates Screen (Not Detect) Urine Fentanyl Screen (Not Detect) Acetaminophen < 1 (<30) mcg/mL Ur Barbiturates Screen (Not Detect) Ur Phencyclidine Scrn (Not Detect) Ur Amphetamines Screen (Not Detect) U Benzodiazepines Scrn (Not Detect) Urine Cocaine Screen (Not Detect) U Marijuana (THC) Screen (Not Detect) Ethyl Alcohol < 10 mg/dL COVID-19 (ZACK) (Negative) COVID-19 Clin Com 06/12/22 06/12/22 06/12/22 Range/Units 14:36 15:27 18:04 WBC (4.8-10.8) X10*3/uL RBC (4.20-5.50) X10*6/uL Hgb (12.0-16.0) g/dl Hct (37.0-47.0) % MCV (80.0-98.0) fL MCH (27.0-33.0) pg MCHC (31.0-35.0) g/dl RDW (11.0-16.0) % Plt Count (160-400) X10*3/uL MPV (9.4-12.3) fL Immature Gran % (Auto) (0.0-0.4) % Neut % (Auto) (45-73) % Lymph % (Auto) (20-40) % [place] % (Auto) (2-11) % Eos % (Auto) (0-4) % Baso % (Auto) (0-2) % Lymph # (Auto) (1.2-4.9) X10*3/uL [place] # (Auto) (0.1-1.2) X10*3/uL Eos # (Auto) (0.0-0.4) X10*3/uL Baso # (Auto) (0.0-0.2) X10*3/uL Abs Immat Gran (auto) (0.00-0.03) X10*3/uL Absolute Neuts (auto) (2.0-8.3) x10*3/uL Absolute Nucleated RBC (0.0-0.012) X10*3/uL Nucleated RBC % (auto) (0.0-0.2) /100WBC Sodium (135-145) mmol/L Potassium (3.3-5.1) mmol/L Chloride (96-108) mmol/L Carbon Dioxide (22-29) mmol/L Anion Gap (12-20) BUN (9-16) mg/dL Creatinine (0.5-1.4) mg/dL Estim Creat Clear Calc Estimated GFR Random Glucose (60-115) mg/dL Calcium (8.4-10.2) mg/dL Total Bilirubin (0.0-1.0) mg/dL AST (5-31) U/L ALT (0-31) U/L Alkaline Phosphatase (39-117) U/L Total Creatine Kinase 3081 H 2655 H (26-140) U/L Total Protein (6.5-8.0) g/dL Albumin (3.5-5.0) g/dL Urine Test (NEGATIVE) Salicylates (15-30) mg/dL Urine Opiates Screen (Not Detect) Urine Fentanyl Screen (Not Detect) Acetaminophen (<30) mcg/mL Ur Barbiturates Screen (Not Detect) Ur Phencyclidine Scrn (Not Detect) Ur Amphetamines Screen (Not Detect) U Benzodiazepines Scrn (Not Detect) Urine Cocaine Screen (Not Detect) U Marijuana (THC) Screen (Not Detect) Ethyl Alcohol mg/dL COVID-19 (ZACK) Negative (Negative) COVID-19 Clin Com See Note <Alisha Aguillon MD - Last Filed: 06/12/22 06:56> Lab Results 06/12/22 06/12/22 06/12/22 Range/Units 05:56 05:56 06:08 WBC 3.3 L (4.8-10.8) X10*3/uL RBC 4.05 L (4.20-5.50) X10*6/uL Hgb 12.1 (12.0-16.0) g/dl Hct 35.5 L (37.0-47.0) % MCV 87.7 (80.0-98.0) fL MCH 29.9 (27.0-33.0) pg MCHC 34.1 (31.0-35.0) g/dl RDW 13.2 (11.0-16.0) % Plt Count 115 L D (160-400) X10*3/uL MPV 9.8 (9.4-12.3) fL Immature Gran % (Auto) 0.0 (0.0-0.4) % Neut % (Auto) 53.5 (45-73) % Lymph % (Auto) 32.4 (20-40) % [place] % (Auto) 9.8 (2-11) % Eos % (Auto) 3.7 (0-4) % Baso % (Auto) 0.6 (0-2) % Lymph # (Auto) 1.1 L (1.2-4.9) X10*3/uL [place] # (Auto) 0.3 (0.1-1.2) X10*3/uL Eos # (Auto) 0.1 (0.0-0.4) X10*3/uL Baso # (Auto) 0.0 (0.0-0.2) X10*3/uL Abs Immat Gran (auto) 0.00 (0.00-0.03) X10*3/uL Absolute Neuts (auto) 1.8 L (2.0-8.3) x10*3/uL Absolute Nucleated RBC 0.000 (0.0-0.012) X10*3/uL Nucleated RBC % (auto) 0.0 (0.0-0.2) /100WBC Sodium (135-145) mmol/L Potassium (3.3-5.1) mmol/L Chloride (96-108) mmol/L Carbon Dioxide (22-29) mmol/L Anion Gap (12-20) BUN (9-16) mg/dL Creatinine (0.5-1.4) mg/dL Estim Creat Clear Calc Estimated GFR Random Glucose (60-115) mg/dL Calcium (8.4-10.2) mg/dL Total Bilirubin (0.0-1.0) mg/dL AST (5-31) U/L ALT (0-31) U/L Alkaline Phosphatase (39-117) U/L Total Creatine Kinase (26-140) U/L Total Protein (6.5-8.0) g/dL Albumin (3.5-5.0) g/dL Urine Test NEGATIVE (NEGATIVE) Salicylates (15-30) mg/dL Urine Opiates Screen POSITIVE H (Not Detect) Urine Fentanyl Screen POSITIVE H (Not Detect) Acetaminophen (<30) mcg/mL Ur Barbiturates Screen Not Detected (Not Detect) Ur Phencyclidine Scrn Not Detected (Not Detect) Ur Amphetamines Screen Not Detected (Not Detect) U Benzodiazepines Scrn Not Detected (Not Detect) Urine Cocaine Screen POSITIVE H (Not Detect) U Marijuana (THC) Screen Not Detected (Not Detect) Ethyl Alcohol mg/dL COVID-19 (ZACK) (Negative) COVID-19 Clin Com 06/12/22 06/12/22 06/12/22 Range/Units 06:08 06:08 11:54 WBC (4.8-10.8) X10*3/uL RBC (4.20-5.50) X10*6/uL Hgb (12.0-16.0) g/dl Hct (37.0-47.0) % MCV (80.0-98.0) fL MCH (27.0-33.0) pg MCHC (31.0-35.0) g/dl RDW (11.0-16.0) % Plt Count (160-400) X10*3/uL MPV (9.4-12.3) fL Immature Gran % (Auto) (0.0-0.4) % Neut % (Auto) (45-73) % Lymph % (Auto) (20-40) % [place] % (Auto) (2-11) % Eos % (Auto) (0-4) % Baso % (Auto) (0-2) % Lymph # (Auto) (1.2-4.9) X10*3/uL [place] # (Auto) (0.1-1.2) X10*3/uL Eos # (Auto) (0.0-0.4) X10*3/uL Baso # (Auto) (0.0-0.2) X10*3/uL Abs Immat Gran (auto) (0.00-0.03) X10*3/uL Absolute Neuts (auto) (2.0-8.3) x10*3/uL Absolute Nucleated RBC (0.0-0.012) X10*3/uL Nucleated RBC % (auto) (0.0-0.2) /100WBC Sodium 144 142 (135-145) mmol/L Potassium 3.2 L 5.1 D (3.3-5.1) mmol/L Chloride 108 114 H (96-108) mmol/L Carbon Dioxide 22 17 L (22-29) mmol/L Anion Gap 17 16 (12-20) BUN 10 10 (9-16) mg/dL Creatinine 0.77 0.63 (0.5-1.4) mg/dL Estim Creat Clear Calc 113.6 138.9 Estimated GFR > 60 > 60 Random Glucose 99 84 (60-115) mg/dL Calcium 9.2 D 8.3 L D (8.4-10.2) mg/dL Total Bilirubin 0.9 (0.0-1.0) mg/dL AST 218 H (5-31) U/L ALT 127 H (0-31) U/L Alkaline Phosphatase 87 (39-117) U/L Total Creatine Kinase 6165 H D 3741 H D (26-140) U/L Total Protein 6.6 (6.5-8.0) g/dL Albumin 4.0 D (3.5-5.0) g/dL Urine Test (NEGATIVE) Salicylates < 5.0 L (15-30) mg/dL Urine Opiates Screen (Not Detect) Urine Fentanyl Screen (Not Detect) Acetaminophen < 1 (<30) mcg/mL Ur Barbiturates Screen (Not Detect) Ur Phencyclidine Scrn (Not Detect) Ur Amphetamines Screen (Not Detect) U Benzodiazepines Scrn (Not Detect) Urine Cocaine Screen (Not Detect) U Marijuana (THC) Screen (Not Detect) Ethyl Alcohol < 10 mg/dL COVID-19 (ZACK) (Negative) COVID-19 Clin Com 06/12/22 06/12/22 06/12/22 Range/Units 14:36 15:27 18:04 WBC (4.8-10.8) X10*3/uL RBC (4.20-5.50) X10*6/uL Hgb (12.0-16.0) g/dl Hct (37.0-47.0) % MCV (80.0-98.0) fL MCH (27.0-33.0) pg MCHC (31.0-35.0) g/dl RDW (11.0-16.0) % Plt Count (160-400) X10*3/uL MPV (9.4-12.3) fL Immature Gran % (Auto) (0.0-0.4) % Neut % (Auto) (45-73) % Lymph % (Auto) (20-40) % [place] % (Auto) (2-11) % Eos % (Auto) (0-4) % Baso % (Auto) (0-2) % Lymph # (Auto) (1.2-4.9) X10*3/uL [place] # (Auto) (0.1-1.2) X10*3/uL Eos # (Auto) (0.0-0.4) X10*3/uL Baso # (Auto) (0.0-0.2) X10*3/uL Abs Immat Gran (auto) (0.00-0.03) X10*3/uL Absolute Neuts (auto) (2.0-8.3) x10*3/uL Absolute Nucleated RBC (0.0-0.012) X10*3/uL Nucleated RBC % (auto) (0.0-0.2) /100WBC Sodium (135-145) mmol/L Potassium (3.3-5.1) mmol/L Chloride (96-108) mmol/L Carbon Dioxide (22-29) mmol/L Anion Gap (12-20) BUN (9-16) mg/dL Creatinine (0.5-1.4) mg/dL Estim Creat Clear Calc Estimated GFR Random Glucose (60-115) mg/dL Calcium (8.4-10.2) mg/dL Total Bilirubin (0.0-1.0) mg/dL AST (5-31) U/L ALT (0-31) U/L Alkaline Phosphatase (39-117) U/L Total Creatine Kinase 3081 H 2655 H (26-140) U/L Total Protein (6.5-8.0) g/dL Albumin (3.5-5.0) g/dL Urine Test (NEGATIVE) Salicylates (15-30) mg/dL Urine Opiates Screen (Not Detect) Urine Fentanyl Screen (Not Detect) Acetaminophen (<30) mcg/mL Ur Barbiturates Screen (Not Detect) Ur Phencyclidine Scrn (Not Detect) Ur Amphetamines Screen (Not Detect) U Benzodiazepines Scrn (Not Detect) Urine Cocaine Screen (Not Detect) U Marijuana (THC) Screen (Not Detect) Ethyl Alcohol mg/dL COVID-19 (ZACK) Negative (Negative) COVID-19 Clin Com See Note <Niki Man, DO - Last Filed: 06/12/22 13:13> Lab Results 06/12/22 06/12/22 06/12/22 Range/Units 05:56 05:56 06:08 WBC 3.3 L (4.8-10.8) X10*3/uL RBC 4.05 L (4.20-5.50) X10*6/uL Hgb 12.1 (12.0-16.0) g/dl Hct 35.5 L (37.0-47.0) % MCV 87.7 (80.0-98.0) fL MCH 29.9 (27.0-33.0) pg MCHC 34.1 (31.0-35.0) g/dl RDW 13.2 (11.0-16.0) % Plt Count 115 L D (160-400) X10*3/uL MPV 9.8 (9.4-12.3) fL Immature Gran % (Auto) 0.0 (0.0-0.4) % Neut % (Auto) 53.5 (45-73) % Lymph % (Auto) 32.4 (20-40) % [place] % (Auto) 9.8 (2-11) % Eos % (Auto) 3.7 (0-4) % Baso % (Auto) 0.6 (0-2) % Lymph # (Auto) 1.1 L (1.2-4.9) X10*3/uL [place] # (Auto) 0.3 (0.1-1.2) X10*3/uL Eos # (Auto) 0.1 (0.0-0.4) X10*3/uL Baso # (Auto) 0.0 (0.0-0.2) X10*3/uL Abs Immat Gran (auto) 0.00 (0.00-0.03) X10*3/uL Absolute Neuts (auto) 1.8 L (2.0-8.3) x10*3/uL Absolute Nucleated RBC 0.000 (0.0-0.012) X10*3/uL Nucleated RBC % (auto) 0.0 (0.0-0.2) /100WBC Sodium (135-145) mmol/L Potassium (3.3-5.1) mmol/L Chloride (96-108) mmol/L Carbon Dioxide (22-29) mmol/L Anion Gap (12-20) BUN (9-16) mg/dL Creatinine (0.5-1.4) mg/dL Estim Creat Clear Calc Estimated GFR Random Glucose (60-115) mg/dL Calcium (8.4-10.2) mg/dL Total Bilirubin (0.0-1.0) mg/dL AST (5-31) U/L ALT (0-31) U/L Alkaline Phosphatase (39-117) U/L Total Creatine Kinase (26-140) U/L Total Protein (6.5-8.0) g/dL Albumin (3.5-5.0) g/dL Urine Test NEGATIVE (NEGATIVE) Salicylates (15-30) mg/dL Urine Opiates Screen POSITIVE H (Not Detect) Urine Fentanyl Screen POSITIVE H (Not Detect) Acetaminophen (<30) mcg/mL Ur Barbiturates Screen Not Detected (Not Detect) Ur Phencyclidine Scrn Not Detected (Not Detect) Ur Amphetamines Screen Not Detected (Not Detect) U Benzodiazepines Scrn Not Detected (Not Detect) Urine Cocaine Screen POSITIVE H (Not Detect) U Marijuana (THC) Screen Not Detected (Not Detect) Ethyl Alcohol mg/dL COVID-19 (ZACK) (Negative) COVID-19 Clin Com 06/12/22 06/12/22 06/12/22 Range/Units 06:08 06:08 11:54 WBC (4.8-10.8) X10*3/uL RBC (4.20-5.50) X10*6/uL Hgb (12.0-16.0) g/dl Hct (37.0-47.0) % MCV (80.0-98.0) fL MCH (27.0-33.0) pg MCHC (31.0-35.0) g/dl RDW (11.0-16.0) % Plt Count (160-400) X10*3/uL MPV (9.4-12.3) fL Immature Gran % (Auto) (0.0-0.4) % Neut % (Auto) (45-73) % Lymph % (Auto) (20-40) % [place] % (Auto) (2-11) % Eos % (Auto) (0-4) % Baso % (Auto) (0-2) % Lymph # (Auto) (1.2-4.9) X10*3/uL [place] # (Auto) (0.1-1.2) X10*3/uL Eos # (Auto) (0.0-0.4) X10*3/uL Baso # (Auto) (0.0-0.2) X10*3/uL Abs Immat Gran (auto) (0.00-0.03) X10*3/uL Absolute Neuts (auto) (2.0-8.3) x10*3/uL Absolute Nucleated RBC (0.0-0.012) X10*3/uL Nucleated RBC % (auto) (0.0-0.2) /100WBC Sodium 144 142 (135-145) mmol/L Potassium 3.2 L 5.1 D (3.3-5.1) mmol/L Chloride 108 114 H (96-108) mmol/L Carbon Dioxide 22 17 L (22-29) mmol/L Anion Gap 17 16 (12-20) BUN 10 10 (9-16) mg/dL Creatinine 0.77 0.63 (0.5-1.4) mg/dL Estim Creat Clear Calc 113.6 138.9 Estimated GFR > 60 > 60 Random Glucose 99 84 (60-115) mg/dL Calcium 9.2 D 8.3 L D (8.4-10.2) mg/dL Total Bilirubin 0.9 (0.0-1.0) mg/dL AST 218 H (5-31) U/L ALT 127 H (0-31) U/L Alkaline Phosphatase 87 (39-117) U/L Total Creatine Kinase 6165 H D 3741 H D (26-140) U/L Total Protein 6.6 (6.5-8.0) g/dL Albumin 4.0 D (3.5-5.0) g/dL Urine Test (NEGATIVE) Salicylates < 5.0 L (15-30) mg/dL Urine Opiates Screen (Not Detect) Urine Fentanyl Screen (Not Detect) Acetaminophen < 1 (<30) mcg/mL Ur Barbiturates Screen (Not Detect) Ur Phencyclidine Scrn (Not Detect) Ur Amphetamines Screen (Not Detect) U Benzodiazepines Scrn (Not Detect) Urine Cocaine Screen (Not Detect) U Marijuana (THC) Screen (Not Detect) Ethyl Alcohol < 10 mg/dL COVID-19 (ZACK) (Negative) COVID-19 Clin Com 06/12/22 06/12/22 06/12/22 Range/Units 14:36 15:27 18:04 WBC (4.8-10.8) X10*3/uL RBC (4.20-5.50) X10*6/uL Hgb (12.0-16.0) g/dl Hct (37.0-47.0) % MCV (80.0-98.0) fL MCH (27.0-33.0) pg MCHC (31.0-35.0) g/dl RDW (11.0-16.0) % Plt Count (160-400) X10*3/uL MPV (9.4-12.3) fL Immature Gran % (Auto) (0.0-0.4) % Neut % (Auto) (45-73) % Lymph % (Auto) (20-40) % [place] % (Auto) (2-11) % Eos % (Auto) (0-4) % Baso % (Auto) (0-2) % Lymph # (Auto) (1.2-4.9) X10*3/uL [place] # (Auto) (0.1-1.2) X10*3/uL Eos # (Auto) (0.0-0.4) X10*3/uL Baso # (Auto) (0.0-0.2) X10*3/uL Abs Immat Gran (auto) (0.00-0.03) X10*3/uL Absolute Neuts (auto) (2.0-8.3) x10*3/uL Absolute Nucleated RBC (0.0-0.012) X10*3/uL Nucleated RBC % (auto) (0.0-0.2) /100WBC Sodium (135-145) mmol/L Potassium (3.3-5.1) mmol/L Chloride (96-108) mmol/L Carbon Dioxide (22-29) mmol/L Anion Gap (12-20) BUN (9-16) mg/dL Creatinine (0.5-1.4) mg/dL Estim Creat Clear Calc Estimated GFR Random Glucose (60-115) mg/dL Calcium (8.4-10.2) mg/dL Total Bilirubin (0.0-1.0) mg/dL AST (5-31) U/L ALT (0-31) U/L Alkaline Phosphatase (39-117) U/L Total Creatine Kinase 3081 H 2655 H (26-140) U/L Total Protein (6.5-8.0) g/dL Albumin (3.5-5.0) g/dL Urine Test (NEGATIVE) Salicylates (15-30) mg/dL Urine Opiates Screen (Not Detect) Urine Fentanyl Screen (Not Detect) Acetaminophen (<30) mcg/mL Ur Barbiturates Screen (Not Detect) Ur Phencyclidine Scrn (Not Detect) Ur Amphetamines Screen (Not Detect) U Benzodiazepines Scrn (Not Detect) Urine Cocaine Screen (Not Detect) U Marijuana (THC) Screen (Not Detect) Ethyl Alcohol mg/dL COVID-19 (ZACK) Negative (Negative) COVID-19 Clin Com See Note <ALISON Parrish - Last Filed: 06/12/22 17:30> Lab Results 06/12/22 06/12/22 06/12/22 Range/Units 05:56 05:56 06:08 WBC 3.3 L (4.8-10.8) X10*3/uL RBC 4.05 L (4.20-5.50) X10*6/uL Hgb 12.1 (12.0-16.0) g/dl Hct 35.5 L (37.0-47.0) % MCV 87.7 (80.0-98.0) fL MCH 29.9 (27.0-33.0) pg MCHC 34.1 (31.0-35.0) g/dl RDW 13.2 (11.0-16.0) % Plt Count 115 L D (160-400) X10*3/uL MPV 9.8 (9.4-12.3) fL Immature Gran % (Auto) 0.0 (0.0-0.4) % Neut % (Auto) 53.5 (45-73) % Lymph % (Auto) 32.4 (20-40) % [place] % (Auto) 9.8 (2-11) % Eos % (Auto) 3.7 (0-4) % Baso % (Auto) 0.6 (0-2) % Lymph # (Auto) 1.1 L (1.2-4.9) X10*3/uL [place] # (Auto) 0.3 (0.1-1.2) X10*3/uL Eos # (Auto) 0.1 (0.0-0.4) X10*3/uL Baso # (Auto) 0.0 (0.0-0.2) X10*3/uL Abs Immat Gran (auto) 0.00 (0.00-0.03) X10*3/uL Absolute Neuts (auto) 1.8 L (2.0-8.3) x10*3/uL Absolute Nucleated RBC 0.000 (0.0-0.012) X10*3/uL Nucleated RBC % (auto) 0.0 (0.0-0.2) /100WBC Sodium (135-145) mmol/L Potassium (3.3-5.1) mmol/L Chloride (96-108) mmol/L Carbon Dioxide (22-29) mmol/L Anion Gap (12-20) BUN (9-16) mg/dL Creatinine (0.5-1.4) mg/dL Estim Creat Clear Calc Estimated GFR Random Glucose (60-115) mg/dL Calcium (8.4-10.2) mg/dL Total Bilirubin (0.0-1.0) mg/dL AST (5-31) U/L ALT (0-31) U/L Alkaline Phosphatase (39-117) U/L Total Creatine Kinase (26-140) U/L Total Protein (6.5-8.0) g/dL Albumin (3.5-5.0) g/dL Urine Test NEGATIVE (NEGATIVE) Salicylates (15-30) mg/dL Urine Opiates Screen POSITIVE H (Not Detect) Urine Fentanyl Screen POSITIVE H (Not Detect) Acetaminophen (<30) mcg/mL Ur Barbiturates Screen Not Detected (Not Detect) Ur Phencyclidine Scrn Not Detected (Not Detect) Ur Amphetamines Screen Not Detected (Not Detect) U Benzodiazepines Scrn Not Detected (Not Detect) Urine Cocaine Screen POSITIVE H (Not Detect) U Marijuana (THC) Screen Not Detected (Not Detect) Ethyl Alcohol mg/dL COVID-19 (ZACK) (Negative) COVID-19 Clin Com 06/12/22 06/12/22 06/12/22 Range/Units 06:08 06:08 11:54 WBC (4.8-10.8) X10*3/uL RBC (4.20-5.50) X10*6/uL Hgb (12.0-16.0) g/dl Hct (37.0-47.0) % MCV (80.0-98.0) fL MCH (27.0-33.0) pg MCHC (31.0-35.0) g/dl RDW (11.0-16.0) % Plt Count (160-400) X10*3/uL MPV (9.4-12.3) fL Immature Gran % (Auto) (0.0-0.4) % Neut % (Auto) (45-73) % Lymph % (Auto) (20-40) % [place] % (Auto) (2-11) % Eos % (Auto) (0-4) % Baso % (Auto) (0-2) % Lymph # (Auto) (1.2-4.9) X10*3/uL [place] # (Auto) (0.1-1.2) X10*3/uL Eos # (Auto) (0.0-0.4) X10*3/uL Baso # (Auto) (0.0-0.2) X10*3/uL Abs Immat Gran (auto) (0.00-0.03) X10*3/uL Absolute Neuts (auto) (2.0-8.3) x10*3/uL Absolute Nucleated RBC (0.0-0.012) X10*3/uL Nucleated RBC % (auto) (0.0-0.2) /100WBC Sodium 144 142 (135-145) mmol/L Potassium 3.2 L 5.1 D (3.3-5.1) mmol/L Chloride 108 114 H (96-108) mmol/L Carbon Dioxide 22 17 L (22-29) mmol/L Anion Gap 17 16 (12-20) BUN 10 10 (9-16) mg/dL Creatinine 0.77 0.63 (0.5-1.4) mg/dL Estim Creat Clear Calc 113.6 138.9 Estimated GFR > 60 > 60 Random Glucose 99 84 (60-115) mg/dL Calcium 9.2 D 8.3 L D (8.4-10.2) mg/dL Total Bilirubin 0.9 (0.0-1.0) mg/dL AST 218 H (5-31) U/L ALT 127 H (0-31) U/L Alkaline Phosphatase 87 (39-117) U/L Total Creatine Kinase 6165 H D 3741 H D (26-140) U/L Total Protein 6.6 (6.5-8.0) g/dL Albumin 4.0 D (3.5-5.0) g/dL Urine Test (NEGATIVE) Salicylates < 5.0 L (15-30) mg/dL Urine Opiates Screen (Not Detect) Urine Fentanyl Screen (Not Detect) Acetaminophen < 1 (<30) mcg/mL Ur Barbiturates Screen (Not Detect) Ur Phencyclidine Scrn (Not Detect) Ur Amphetamines Screen (Not Detect) U Benzodiazepines Scrn (Not Detect) Urine Cocaine Screen (Not Detect) U Marijuana (THC) Screen (Not Detect) Ethyl Alcohol < 10 mg/dL COVID-19 (ZACK) (Negative) COVID-19 Clin Com 06/12/22 06/12/22 06/12/22 Range/Units 14:36 15:27 18:04 WBC (4.8-10.8) X10*3/uL RBC (4.20-5.50) X10*6/uL Hgb (12.0-16.0) g/dl Hct (37.0-47.0) % MCV (80.0-98.0) fL MCH (27.0-33.0) pg MCHC (31.0-35.0) g/dl RDW (11.0-16.0) % Plt Count (160-400) X10*3/uL MPV (9.4-12.3) fL Immature Gran % (Auto) (0.0-0.4) % Neut % (Auto) (45-73) % Lymph % (Auto) (20-40) % [place] % (Auto) (2-11) % Eos % (Auto) (0-4) % Baso % (Auto) (0-2) % Lymph # (Auto) (1.2-4.9) X10*3/uL [place] # (Auto) (0.1-1.2) X10*3/uL Eos # (Auto) (0.0-0.4) X10*3/uL Baso # (Auto) (0.0-0.2) X10*3/uL Abs Immat Gran (auto) (0.00-0.03) X10*3/uL Absolute Neuts (auto) (2.0-8.3) x10*3/uL Absolute Nucleated RBC (0.0-0.012) X10*3/uL Nucleated RBC % (auto) (0.0-0.2) /100WBC Sodium (135-145) mmol/L Potassium (3.3-5.1) mmol/L Chloride (96-108) mmol/L Carbon Dioxide (22-29) mmol/L Anion Gap (12-20) BUN (9-16) mg/dL Creatinine (0.5-1.4) mg/dL Estim Creat Clear Calc Estimated GFR Random Glucose (60-115) mg/dL Calcium (8.4-10.2) mg/dL Total Bilirubin (0.0-1.0) mg/dL AST (5-31) U/L ALT (0-31) U/L Alkaline Phosphatase (39-117) U/L Total Creatine Kinase 3081 H 2655 H (26-140) U/L Total Protein (6.5-8.0) g/dL Albumin (3.5-5.0) g/dL Urine Test (NEGATIVE) Salicylates (15-30) mg/dL Urine Opiates Screen (Not Detect) Urine Fentanyl Screen (Not Detect) Acetaminophen (<30) mcg/mL Ur Barbiturates Screen (Not Detect) Ur Phencyclidine Scrn (Not Detect) Ur Amphetamines Screen (Not Detect) U Benzodiazepines Scrn (Not Detect) Urine Cocaine Screen (Not Detect) U Marijuana (THC) Screen (Not Detect) Ethyl Alcohol mg/dL COVID-19 ([facility]ACK) Negative (Negative) COVID-19 Clin Com See Note <ALISON Bradley - Last Filed: 06/12/22 18:02> Lab Results 06/12/22 06/12/22 06/12/22 Range/Units 05:56 05:56 06:08 WBC 3.3 L (4.8-10.8) X10*3/uL RBC 4.05 L (4.20-5.50) X10*6/uL Hgb 12.1 (12.0-16.0) g/dl Hct 35.5 L (37.0-47.0) % MCV 87.7 (80.0-98.0) fL MCH 29.9 (27.0-33.0) pg MCHC 34.1 (31.0-35.0) g/dl RDW 13.2 (11.0-16.0) % Plt Count 115 L D (160-400) X10*3/uL MPV 9.8 (9.4-12.3) fL Immature Gran % (Auto) 0.0 (0.0-0.4) % Neut % (Auto) 53.5 (45-73) % Lymph % (Auto) 32.4 (20-40) % [place] % (Auto) 9.8 (2-11) % Eos % (Auto) 3.7 (0-4) % Baso % (Auto) 0.6 (0-2) % Lymph # (Auto) 1.1 L (1.2-4.9) X10*3/uL [place] # (Auto) 0.3 (0.1-1.2) X10*3/uL Eos # (Auto) 0.1 (0.0-0.4) X10*3/uL Baso # (Auto) 0.0 (0.0-0.2) X10*3/uL Abs Immat Gran (auto) 0.00 (0.00-0.03) X10*3/uL Absolute Neuts (auto) 1.8 L (2.0-8.3) x10*3/uL Absolute Nucleated RBC 0.000 (0.0-0.012) X10*3/uL Nucleated RBC % (auto) 0.0 (0.0-0.2) /100WBC Sodium (135-145) mmol/L Potassium (3.3-5.1) mmol/L Chloride (96-108) mmol/L Carbon Dioxide (22-29) mmol/L Anion Gap (12-20) BUN (9-16) mg/dL Creatinine (0.5-1.4) mg/dL Estim Creat Clear Calc Estimated GFR Random Glucose (60-115) mg/dL Calcium (8.4-10.2) mg/dL Total Bilirubin (0.0-1.0) mg/dL AST (5-31) U/L ALT (0-31) U/L Alkaline Phosphatase (39-117) U/L Total Creatine Kinase (26-140) U/L Total Protein (6.5-8.0) g/dL Albumin (3.5-5.0) g/dL Urine Test NEGATIVE (NEGATIVE) Salicylates (15-30) mg/dL Urine Opiates Screen POSITIVE H (Not Detect) Urine Fentanyl Screen POSITIVE H (Not Detect) Acetaminophen (<30) mcg/mL Ur Barbiturates Screen Not Detected (Not Detect) Ur Phencyclidine Scrn Not Detected (Not Detect) Ur Amphetamines Screen Not Detected (Not Detect) U Benzodiazepines Scrn Not Detected (Not Detect) Urine Cocaine Screen POSITIVE H (Not Detect) U Marijuana (THC) Screen Not Detected (Not Detect) Ethyl Alcohol mg/dL COVID-19 (ZACK) (Negative) COVID-19 Clin Com 06/12/22 06/12/22 06/12/22 Range/Units 06:08 06:08 11:54 WBC (4.8-10.8) X10*3/uL RBC (4.20-5.50) X10*6/uL Hgb (12.0-16.0) g/dl Hct (37.0-47.0) % MCV (80.0-98.0) fL MCH (27.0-33.0) pg MCHC (31.0-35.0) g/dl RDW (11.0-16.0) % Plt Count (160-400) X10*3/uL MPV (9.4-12.3) fL Immature Gran % (Auto) (0.0-0.4) % Neut % (Auto) (45-73) % Lymph % (Auto) (20-40) % [place] % (Auto) (2-11) % Eos % (Auto) (0-4) % Baso % (Auto) (0-2) % Lymph # (Auto) (1.2-4.9) X10*3/uL [place] # (Auto) (0.1-1.2) X10*3/uL Eos # (Auto) (0.0-0.4) X10*3/uL Baso # (Auto) (0.0-0.2) X10*3/uL Abs Immat Gran (auto) (0.00-0.03) X10*3/uL Absolute Neuts (auto) (2.0-8.3) x10*3/uL Absolute Nucleated RBC (0.0-0.012) X10*3/uL Nucleated RBC % (auto) (0.0-0.2) /100WBC Sodium 144 142 (135-145) mmol/L Potassium 3.2 L 5.1 D (3.3-5.1) mmol/L Chloride 108 114 H (96-108) mmol/L Carbon Dioxide 22 17 L (22-29) mmol/L Anion Gap 17 16 (12-20) BUN 10 10 (9-16) mg/dL Creatinine 0.77 0.63 (0.5-1.4) mg/dL Estim Creat Clear Calc 113.6 138.9 Estimated GFR > 60 > 60 Random Glucose 99 84 (60-115) mg/dL Calcium 9.2 D 8.3 L D (8.4-10.2) mg/dL Total Bilirubin 0.9 (0.0-1.0) mg/dL AST 218 H (5-31) U/L ALT 127 H (0-31) U/L Alkaline Phosphatase 87 (39-117) U/L Total Creatine Kinase 6165 H D 3741 H D (26-140) U/L Total Protein 6.6 (6.5-8.0) g/dL Albumin 4.0 D (3.5-5.0) g/dL Urine Test (NEGATIVE) Salicylates < 5.0 L (15-30) mg/dL Urine Opiates Screen (Not Detect) Urine Fentanyl Screen (Not Detect) Acetaminophen < 1 (<30) mcg/mL Ur Barbiturates Screen (Not Detect) Ur Phencyclidine Scrn (Not Detect) Ur Amphetamines Screen (Not Detect) U Benzodiazepines Scrn (Not Detect) Urine Cocaine Screen (Not Detect) U Marijuana (THC) Screen (Not Detect) Ethyl Alcohol < 10 mg/dL COVID-19 (ZACK) (Negative) COVID-19 Clin Com 06/12/22 06/12/22 06/12/22 Range/Units 14:36 15:27 18:04 WBC (4.8-10.8) X10*3/uL RBC (4.20-5.50) X10*6/uL Hgb (12.0-16.0) g/dl Hct (37.0-47.0) % MCV (80.0-98.0) fL MCH (27.0-33.0) pg MCHC (31.0-35.0) g/dl RDW (11.0-16.0) % Plt Count (160-400) X10*3/uL MPV (9.4-12.3) fL Immature Gran % (Auto) (0.0-0.4) % Neut % (Auto) (45-73) % Lymph % (Auto) (20-40) % [place] % (Auto) (2-11) % Eos % (Auto) (0-4) % Baso % (Auto) (0-2) % Lymph # (Auto) (1.2-4.9) X10*3/uL [place] # (Auto) (0.1-1.2) X10*3/uL Eos # (Auto) (0.0-0.4) X10*3/uL Baso # (Auto) (0.0-0.2) X10*3/uL Abs Immat Gran (auto) (0.00-0.03) X10*3/uL Absolute Neuts (auto) (2.0-8.3) x10*3/uL Absolute Nucleated RBC (0.0-0.012) X10*3/uL Nucleated RBC % (auto) (0.0-0.2) /100WBC Sodium (135-145) mmol/L Potassium (3.3-5.1) mmol/L Chloride (96-108) mmol/L Carbon Dioxide (22-29) mmol/L Anion Gap (12-20) BUN (9-16) mg/dL Creatinine (0.5-1.4) mg/dL Estim Creat Clear Calc Estimated GFR Random Glucose (60-115) mg/dL Calcium (8.4-10.2) mg/dL Total Bilirubin (0.0-1.0) mg/dL AST (5-31) U/L ALT (0-31) U/L Alkaline Phosphatase (39-117) U/L Total Creatine Kinase 3081 H 2655 H (26-140) U/L Total Protein (6.5-8.0) g/dL Albumin (3.5-5.0) g/dL Urine Test (NEGATIVE) Salicylates (15-30) mg/dL Urine Opiates Screen (Not Detect) Urine Fentanyl Screen (Not Detect) Acetaminophen (<30) mcg/mL Ur Barbiturates Screen (Not Detect) Ur Phencyclidine Scrn (Not Detect) Ur Amphetamines Screen (Not Detect) U Benzodiazepines Scrn (Not Detect) Urine Cocaine Screen (Not Detect) U Marijuana (THC) Screen (Not Detect) Ethyl Alcohol mg/dL COVID-19 (ZACK) Negative (Negative) COVID-19 Clin Com See Note <Elton Quintana MD - Last Filed: 06/13/22 12:00> Discharge Plan Discharge Clinical Impression: Cocaine abuse, Opioid dependence Rhabdomyolysis Qualifiers: Rhabdomyolysis type: traumatic Encounter type: initial encounter Qualified Code(s): T79.6XXA - Traumatic ischemia of muscle, initial encounter <Alisha Aguillon MD - Last Filed: 06/12/22 06:56> Patient Disposition: Home, Self-Care <Alisha Aguillon MD - Last Filed: 06/12/22 06:56> Instructions: Rhabdomyolysis (ED), Cocaine Abuse (ED), Opioid Use Disorder (ED) <Alisha Aguillon MD - Last Filed: 06/12/22 06:56> Additional Instructions: Take your medications as prescribed. If you were prescribed antibiotics today, it is important that you take your medication to their entirety, do not skip any doses, do not finish them early. Follow-up with your primary care provider this week. Return to the emergency department with new or worsening symptoms. Such as fevers, chills, chest pain, shortness of breath, nausea, vomiting, dizziness, headache, vision changes, lethargy, suicidal or homicidal ideation In case of emergency call 911 You did on a stand the hospital today. Please follow-up with the behavioral health team. I sent Narcan to your pharmacy. <Alisha Aguillon MD - Last Filed: 06/12/22 06:56> Prescriptions: No Action methadone [Methadose] 10 mg/mL Concentrate 135 mg PO DAILY Qty: 0 0RF Rx Instructions: Partial Fill upon patient request. nicotine (polacrilex) 2 mg Gum 4 mg buccal Q2H PRN (Reason: Nicotine Cravings) Qty: 30 0RF cyclobenzaprine 5 mg Tablet 5 mg PO BID Qty: 14 0RF nicotine 21 mg/24 hr Patch 24 Hour 21 mg transdermal DAILY PRN (Reason: nicotine cravings) Qty: 30 0RF thiamine mononitrate (vit B1) 100 mg Tablet 100 mg PO DAILY Qty: 30 0RF diqifpai-ufw-fnpt fum-folic ac 7.5 mg iron-400 mcg tablet 1 tab PO DAILY Qty: 30 0RF naloxone [Narcan] 4 mg/actuation spray,non-aerosol 4 mg intranasal Q2M PRN (Reason: opioid overdose) Qty: 2 0RF Rx Instructions: spray 1 dose into ONE nostril; alternate nostrils w each dose until help arrives gabapentin 800 mg tablet 1 tab PO QID topiramate 200 mg tablet 1 tab PO BID Cetaphil Bar 1 appl TOPICAL QID PRN (Reason: skin protectant) diclofenac potassium 50 mg tablet 1 tab PO BID hydroxyzine HCl 25 mg tablet 1 tab PO Q6H PRN (Reason: Anxiety) buspirone 15 mg tablet 1 tab PO TID propranolol 10 mg tablet 10 mg PO Q6H PRN (Reason: Anxiety) Protocol: Hold for SBP/HR < HOLD for SBP < : 90 HOLD for HR < : 60 loratadine 10 mg tablet 1 tab PO DAILY PRN (Reason: Allergy Symptoms) clonazepam 0.5 mg tablet 0.5 mg PO BID PRN (Reason: Anxiety) <Alisha Aguillon MD - Last Filed: 06/12/22 06:56> Referrals: [facility] [Provider Group] - 2 days Physician,Unknown J [Primary Care Provider] - 3 days <Alisha Aguillon MD - Last Filed: 06/12/22 06:56>
--- NOTE | 2022-06-12 04:32 | PC.NURSE ---
ATTEMPT TO GET PATIENT LABS ,BUT PATIENT IS VERY UNCOOPERATIVE ,APLOONIA LANDON AND MD JOHNSON AWARE .
--- NOTE | 2022-06-12 04:52 | PC.NURSE ---
pt drowsy, rousable to name, vss, uncooperative w care. pt does not know what she took today, maybe cocaine or heroin - 4mg on narcan given by EMS. pt changed into hospital gown, security at bedside to clear belongings.
--- NOTE | 2022-06-12 05:19 | PC.NURSE ---
2ND ATTEMPT MADE TO GET BLOOD WORK ,PATIENT IS STILL UNCOOPERATIVE ,RN BARBI IS AWARE .
--- NOTE | 2022-06-12 05:46 | PC.NURSE ---
pt found naked in bed, extensive old bruising to lower abdomen, both arms, bite delgado on shoulder. pt reconnected to monitors and dressed, disoriented, erratic behavior, uncooperative w vitals, tech unable to get blood at this time. pt given sandwich and drink.
[2022-06-12 06:04] LABS: UPreg QC Valid YES; Urine Pregnancy NEGATIVE (NEGATIVE)
[2022-06-12 06:13] LABS: MANUAL DIFF FLAG NO
[2022-06-12 06:14] LABS: Basophils Percent Auto 0.6 % (0-2); Eosinophils Absolute Auto 0.1 X10*3/uL (0.0-0.4); Eosinophils Percent Auto 3.7 % (0-4); Hematocrit 35.5 % (37.0-47.0); Hemoglobin 12.1 g/dl (12.0-16.0); Lymphocytes Absolute Auto 1.1 X10*3/uL (1.2-4.9); Lymphocytes Percent Auto 32.4 % (20-40); Mean Corpuscular HGB Conc 34.1 g/dl (31.0-35.0); Mean Corpuscular Hemoglobin 29.9 pg (27.0-33.0); Mean Corpuscular Volume 87.7 fL (80.0-98.0); Mean Platelet Volume 9.8 fL (9.4-12.3); Monocytes Absolute Auto 0.3 X10*3/uL (0.1-1.2); Monocytes Percent Auto 9.8 % (2-11); Neutrophils Absolute Auto 1.8 x10*3/uL (2.0-8.3); Neutrophils Percent Auto 53.5 % (45-73); Platelet Count 115 X10*3/uL (160-400); Red Blood Count 4.05 X10*6/uL (4.20-5.50); Red Cell Distribution Width 13.2 % (11.0-16.0); White Blood Count 3.3 X10*3/uL (4.8-10.8)
[2022-06-12 06:14] LABS: Amphetamine Screen Urine Not Detected (Not Detect); Barbiturates, Urine Not Detected (Not Detect); Benzodiazepines Screen Urine Not Detected (Not Detect); Cannabinoid Screen Urine Not Detected (Not Detect); Cocaine Screen Urine POSITIVE (Not Detect); Fentanyl, urine POSITIVE (Not Detect); Opiate Screen Urine POSITIVE (Not Detect); Phencyclidine Screen Urine Not Detected (Not Detect)
[2022-06-12 06:37] LABS: Acetaminophen LAB < 1 mcg/mL (<30); Alanine Aminotransferase 127 U/L (0-31); Alkaline Phosphatase 87 U/L (39-117); Anion Gap 17 (12-20); Aspartate Amino Transferase 218 U/L (5-31); Bilirubin Total 0.9 mg/dL (0.0-1.0); Blood Urea Nitrogen 10 mg/dL (9-16); Calcium 9.2 mg/dL (8.4-10.2); Carbon Dioxide 22 mmol/L (22-29); Chloride 108 mmol/L (96-108); Creatinine Clr Calc Pharmacy 113.6; Estimated Glomerular Filt Rate > 60; Ethanol < 10 mg/dL; Glucose Random 99 mg/dL (60-115); Potassium 3.2 mmol/L (3.3-5.1); Salicylate < 5.0 mg/dL (15-30); Sodium 144 mmol/L (135-145); Total Protein 6.6 g/dL (6.5-8.0)
[2022-06-12] MEDS: 0.9 % Sodium Chloride 1,000 ML 999 ML IV ×2 (07:14→09:12)
[2022-06-12] MEDS: Potassium Chloride Packet 20 MEQ PACKET 40 MEQ PO (09:18)
--- NOTE | 2022-06-12 10:24 | MHC.RECOVSUP ---
Recovery Support note: Patient is a 42 year old [place] speaking female who presented to [facility] [place] after an accidental overdose. This web content writer met with patient to offer SUDE and discuss treatment options. Patient was difficult to wake and difficult to engage. Patient reports her last methadone dose was in the hospital on 06/10 and that she has not reconnected with her clinic. Patient fell asleep during discussion. This web content writer will try to engage with patient again later on. This web content writer is available as needed.
[2022-06-12 12:34] LABS: Anion Gap 16 (12-20); Blood Urea Nitrogen 10 mg/dL (9-16); Calcium 8.3 mg/dL (8.4-10.2); Carbon Dioxide 17 mmol/L (22-29); Chloride 114 mmol/L (96-108); Creatinine Clr Calc Pharmacy 138.9; Estimated Glomerular Filt Rate > 60; Glucose Random 84 mg/dL (60-115); Potassium 5.1 mmol/L (3.3-5.1); Sodium 142 mmol/L (135-145)
--- NOTE | 2022-06-12 12:57 | PC.NURSE ---
Pt is responsive to touch, opens eyes briefly to voice, . Unable to complete [place] scale at this time. Pt resting comfortably, respiration is even .
[2022-06-12] MEDS: 0.9 % Sodium Chloride 1,000 ML 999 ML IVCONT ×2 (13:03→13:41)
--- NOTE | 2022-06-12 13:32 | PC.NURSE ---
Pt is resting comfortably, open eyes briefly to touch and voice, vitals are stable. Attempted for the third time for [place] assessment, pt sleeping and noncooperative at this time.
[2022-06-12] MEDS: Tobramycin Sulfate 0.3% Sol Op 5 ML BTL 2 DROP EYE-BOTH (13:40)
--- NOTE | 2022-06-12 14:40 | PC.NURSE ---
Pt is awake not Oriented X 3. Speech is coherent. Requesting a bowl of cereal and coffee.
[2022-06-12 15:23] LABS: COVID-19 Test Negative (Negative); IDNOW Serial# 08D9AD1C
--- NOTE | 2022-06-12 17:47 | PC.NURSE ---
Pt sleeping, respiration is non labored.
--- NOTE | 2022-06-12 18:20 | PHA.MEDREC ---
Pharmacy Consult ? Medication Reconciliation Pharmacy has completed the medication reconciliation. UTILIZED DISCHARGE FROM 2 DAYS AGO. LAST METHADONE DOSE WAS HERE ON 06/10
--- NOTE | 2022-06-12 18:25 | MHC.RECOVSUP ---
Recovery Support note: Patient continues present as somnolent and will not answer questions when this typewriter ribbon winder wakes her up. At this time it is unclear if patient is interested in SUDE or referrals to substance use treatment programs. Discussed with ED provider that patient is not engaging and that she would be unable to complete a phone intake at this time. Plan for patient to be re-evaulated tomorrow.
--- NOTE | 2022-06-12 22:14 | PC.NURSE ---
pt awake. confused about her where abouts but able to recall her name, date of ... pt cleaned up, linens changed. given ice cram and mihir ming per pt request. call lopez within reach. will continue to monitor.
[2022-06-13 00:11] VITALS: BP 127/75; PULSE 66; RESP 12; TEMP 36.6; O2SAT 97
--- NOTE | 2022-06-13 07:03 | PC.NURSE ---
Patient just got transferred from main ED, patient compliant with transfer, patient will be reassessed by recovery team for detox help per care team, med rec needs ordered by the provider, behavior appropriate, medically cleared, will continue to monitor.
--- NOTE | 2022-06-13 07:41 | PC.NURSE ---
Report received. PT currently resting, denies complaints at this time. PT to be seen by recovery team.
[2022-06-13 09:54] VITALS: BP 137/74; PULSE 60; RESP 17; TEMP 37; O2SAT 100
--- NOTE | 2022-06-13 10:30 | MHC.RECOVRN ---
Addendum entered by Rita Sánchez RN 06/13/22 14:02: T/W checked in with Elia BARKSDALE and Care Team related to status of pt, Elia BARKSDALE to f/u related to methadone partial dose for today. Care team will contact Recovery Team if pt interested in making a plan. Addendum entered by Rita Sánchez RN 06/13/22 11:44: T/W spoke w/ APOLONIA Rodrigez, reviewed pt not engaging with Recovery Team, reviewed partial dose of methadone (60-65mg) recommended for today before d/c, for at this time pt has been medically cleared. Original Note: T/W approach pt, pt opened eyes to verbal stimuli. Pt will not answer questions when t/w wakes pt up. T/W asked if pt was interested in further treatment like detox and benefit of placing those referrals sooner in the day, pt did not respond, continued to sleep, eyes closed.
[2022-06-13] MEDS: methADONE HCl 20 MG/2 ML ORAL.CONC 60 MG PO (13:55)
--- NOTE | 2022-06-13 14:04 | MHC.CARE ---
CARE Team and recovery team offer pt resources and connecting to treatment again. Pt states that she is going to call around to see where she can stay. CARE Team has informed pt that she will be discharged today.
== END 2022-06-13 16:06 | disposition home or self-care (01) ==
PROVIDERS: Emergency Medicine; Emergency Medicine Emergency Medical Services; Physician Assistant; Emergency Provider Emergency Medicine
DX: T40.1X1A Poisoning by heroin, accidental (unintentional), initial encounter (principal); Y92.9 Unspecified place or not applicable; F17.210 Nicotine dependence, cigarettes, uncomplicated; F14.10 Cocaine abuse, uncomplicated; Z20.822 Contact with and (suspected) exposure to COVID-19; Z71.6 Tobacco abuse counseling; Z79.899 Other long term (current) drug therapy; Z71.51 Drug abuse counseling and surveillance of drug abuser
CPT/HCPCS: 36415; 80048; 80053; 80143; 80179; 80307; 81025; 82077; 82550; 85025; 87635; 96360; 96361; 99285

== ENCOUNTER 2022-06-15 00:24 | Emergency (ER) | payer OTHER, SELFPAY ==
[2022-06-15 00:34] VITALS: BP 115/56; BP 118/74; PULSE 78; PULSE 87; RESP 14; TEMP 37.1; O2SAT 100; O2SAT 98; BMI 34.5
--- NOTE | 2022-06-15 01:41 | ECG_ITS ---
Test Reason : PSYCH Blood Pressure : / mmHG Vent. Rate : 072 BPM Atrial Rate : 072 BPM P-R Int : 166 ms QRS Dur : 090 ms QT Int : 458 ms P-R-T Axes : 075 024 030 degrees QTc Int : 501 ms Normal sinus rhythm Prolonged QT Abnormal ECG When compared with ECG of 26-APR-2022 00:38, Nonspecific T wave abnormality, improved in Inferior leads T wave inversion less evident in Anterior leads Referred By: Dalila Parr Electronically Signed By:NILE CAO
--- NOTE | 2022-06-15 01:42 | ED.PSYCH ---
HPI - Psych General Chief Complaint: Psychiatric Symptoms Stated Complaint: SI Time Seen by Provider: 06/15/22 01:36 Source: EMS Mode of arrival: EMS Limitations: physical limitation History of Present Illness HPI Narrative: Patient comes to emergency room via EMS. It is unclear why patient was found. Patient was making suicidal statements, states she took Ativan and cocaine. Patient states that she was planning to jump off a bridge. Patient is too intoxicated and somnolent to give any further history Related Data Home Medications Medication Instructions Recorded Confirmed buspirone 15 mg tablet 1 tab PO TID 06/07/22 06/12/22 clonazepam 0.5 mg tablet 0.5 mg PO BID PRN Anxiety 06/07/22 06/12/22 diclofenac potassium 50 mg tablet 1 tab PO BID 06/07/22 06/12/22 gabapentin 800 mg tablet 1 tab PO QID 06/07/22 06/12/22 hydroxyzine HCl 25 mg tablet 1 tab PO Q6H PRN Anxiety 06/07/22 06/12/22 loratadine 10 mg tablet 1 tab PO DAILY PRN Allergy Symptoms 06/07/22 06/12/22 propranolol 10 mg tablet 10 mg PO Q6H PRN Anxiety 06/07/22 06/12/22 soap (Cetaphil Bar) 1 appl topical QID PRN skin 06/07/22 06/12/22 protectant topiramate 200 mg tablet 1 tab PO BID 06/07/22 06/12/22 Previous Rx's Medication Instructions Recorded methadone 10 mg/mL oral 135 mg (13.5 mL) PO DAILY #0 mL 04/15/22 concentrate (Methadose) cyclobenzaprine 5 mg tablet 5 mg PO BID #14 tabs 04/23/22 uaxdxhcnzgie-kprpgkhj-ianh 1 tab PO DAILY #30 tabs 04/23/22 fumarate 7.5 mg-folic acid 400 mcg tablet nicotine (polacrilex) 2 mg gum 4 mg buccal Q2H PRN Nicotine 04/23/22 Cravings #30 ea nicotine 21 mg/24 hr daily 21 mg transdermal DAILY PRN 04/23/22 transdermal patch nicotine cravings #30 ea thiamine mononitrate (vit B1) 100 100 mg PO DAILY #30 tabs 04/23/22 mg tablet naloxone 4 mg/actuation nasal 4 mg intranasal Q2M PRN opioid 04/24/22 spray (Narcan) overdose #2 ea Allergies Allergy/AdvReac Type Severity Reaction Status Date / Time quetiapine [From SEROQUEL] Allergy Severe THROAT Verified 04/01/22 10:03 SWELLING azithromycin [AZITHROMYCIN] Allergy Unknown Unknown Verified 04/01/22 10:03 erythromycin base Allergy Unknown RASH Verified 05/22/21 18:18 [ERYTHROMYCIN BASE] olanzapine [From ZYPREXA] Allergy Unknown PEDAL EDEMA Verified 05/22/21 18:18 sulfacetamide Allergy Unknown Unknown Verified 05/22/21 18:18 [From Sulfacet-R] sulfamethoxazole Allergy Unknown ITCHING Verified 05/22/21 18:18 [From BACTRIM] sulfur [From Sulfacet-R] Allergy Unknown Unknown Verified 05/22/21 18:18 trimethoprim [From BACTRIM] Allergy Unknown ITCHING Verified 05/22/21 18:18 risperidone [From RISPERDAL] AdvReac Unknown TWITCHING Verified 04/01/22 10:03 seafood AdvReac Unknown Vomiting Verified 05/22/21 18:18 shellfish derived AdvReac Unknown VOMITING Verified 04/01/22 10:03 [SHELLFISH DERIVED] trazodone AdvReac restless Verified 04/28/22 13:01 legs Review of Systems Review of Systems: Yes Other (Intoxicated) PMFSH Past Medical History Medical History Chronic post-traumatic stress disorder (PTSD) Opioid dependence Opioid use disorder, moderate, in sustained remission, dependence Substance abuse Substance abuse Social History Social History Household Members: None Housing: Homeless Housing Other:: patient states she is homeless Do you presently have visiting nurse or other home services: No Unable to assess alcohol history related to: Refusing to respond Alcohol intake: current Alcohol intake frequency: does not drink Patient Tobacco Use Status: Former Tobacco user Tobacco use type: Cigarette Cigarette Packs Per Day: 1 Cigarettes Per Day: 20.0 Years Smoked: 10+ e-Cigarette/Vaping Use: Former Use Second Hand Smoke Exposure: Yes Substance Use Type: Crack/Cocaine and Heroin Advance Directives: Yes Advance Directives on File: Yes Advance Directives Date on File: 12/28/20 service: No Current occupational status: disabled Sexual orientation: Did not discuss Physical Exam Vital Signs: Vital Signs: Last Vital Signs Temp 98.7 F 06/15/22 00:34 Pulse 74 06/15/22 05:09 Resp 16 06/15/22 05:09 BP 118/58 L 06/15/22 05:09 Pulse Ox 96 06/15/22 05:09 O2 Del Method 06/15/22 05:09 BMI result Body Mass Index 34.5 Const: Other: Appearance: Somnolent, no acute distress, easily arousable but falls right back asleep Eyes: Pupils equal, round and reactive to light. ENT: Pharynx normal. Neck: Normal inspection. Neck supple. No lymph nodes noted. No crepitus CVS: Normal heart rate and rhythm. Pulses normal. Normal S1 and S2 Respiratory: No respiratory distress. Breath sounds normal. No Wheezing. No rales Abdomen: Soft and nontender. No rigidity. No distention. Skin: Skin warm and dry. Normal skin color. Normal skin turgor. Extremities: No lower extremity edema. No Lacerations. No Rash Neuro:CN 2 through 12 grossly intact Psych: calm, somnolent but easily arousable Course Course Course Narrative: Patient's labs are pending. A few days ago her CPK was elevated, we will recheck. Patient admits to using cocaine, and admits to saying that she wanted to jump off a bridge. Patient is on a [address] Patient very somnolent, occasionally refuses labs because she is too sleepy, but this time, 307 a.m., patient is agreeable Physician observation started at 03:07 I was informed by the patient's nurse that patient's glucose was 48. Patient is awake, somnolent. Patient refusing aligned. Patient was able to eat, drink, she was given p.o. glucose. Patient's CPK remains elevated 2737, creatinine 0.68. I discussed with the patient that we could insert and line ultrasound-guided for IV fluids and dextrose. Patient refused to get an IV line. We need to keep waking up patient for glucose checks and p.o. glucose. MDM - Psych Lab Data Result diagrams: 06/15/22 04:40 06/15/22 03:16 Labs: Lab Results 06/15/22 06/15/22 06/15/22 Range/Units 02:10 03:16 03:19 WBC (4.8-10.8) X10*3/uL RBC (4.20-5.50) X10*6/uL Hgb (12.0-16.0) g/dl Hct (37.0-47.0) % MCV (80.0-98.0) fL MCH (27.0-33.0) pg MCHC (31.0-35.0) g/dl RDW (11.0-16.0) % Plt Count (160-400) X10*3/uL MPV (9.4-12.3) fL Immature Gran % (Auto) (0.0-0.4) % Neut % (Auto) (45-73) % Lymph % (Auto) (20-40) % [place] % (Auto) (2-11) % Eos % (Auto) (0-4) % Baso % (Auto) (0-2) % Lymph # (Auto) (1.2-4.9) X10*3/uL [place] # (Auto) (0.1-1.2) X10*3/uL Eos # (Auto) (0.0-0.4) X10*3/uL Baso # (Auto) (0.0-0.2) X10*3/uL Abs Immat Gran (auto) (0.00-0.03) X10*3/uL Absolute Neuts (auto) (2.0-8.3) x10*3/uL Absolute Nucleated RBC (0.0-0.012) X10*3/uL Nucleated RBC % (auto) (0.0-0.2) /100WBC Sodium 144 (135-145) mmol/L Potassium 4.4 (3.3-5.1) mmol/L Chloride 109 H (96-108) mmol/L Carbon Dioxide 17 L (22-29) mmol/L Anion Gap 22 H (12-20) BUN 6 L (9-16) mg/dL Creatinine 0.68 (0.5-1.4) mg/dL Estim Creat Clear Calc 119.7 Estimated GFR > 60 POC Glucose (60-115) mg/dL Random Glucose 58 L* (60-115) mg/dL Calcium 8.9 D (8.4-10.2) mg/dL Total Bilirubin 0.8 (0.0-1.0) mg/dL Direct Bilirubin 0.4 (0.0-0.5) mg/dL AST 92 H (5-31) U/L ALT 76 H (0-31) U/L Alkaline Phosphatase 78 (39-117) U/L Total Creatine Kinase 2737 H (26-140) U/L Troponin I High Sens < 3.5 (<3.5-17.0) ng/L Total Protein 6.2 L (6.5-8.0) g/dL Albumin 3.9 (3.5-5.0) g/dL Beta HCG, Quant < 2 mIU/mL Ethyl Alcohol < 10 mg/dL COVID-19 (ZACK) Negative (Negative) COVID-19 Clin Com See Note 06/15/22 06/15/22 06/15/22 Range/Units 04:36 04:40 05:02 WBC 6.2 (4.8-10.8) X10*3/uL RBC 3.95 L (4.20-5.50) X10*6/uL Hgb 12.2 (12.0-16.0) g/dl Hct 35.3 L (37.0-47.0) % MCV 89.4 (80.0-98.0) fL MCH 30.9 (27.0-33.0) pg MCHC 34.6 (31.0-35.0) g/dl RDW 14.1 (11.0-16.0) % Plt Count 134 L (160-400) X10*3/uL MPV 10.1 (9.4-12.3) fL Immature Gran % (Auto) 2.1 H (0.0-0.4) % Neut % (Auto) 41.6 L (45-73) % Lymph % (Auto) 40.7 H (20-40) % [place] % (Auto) 11.6 H (2-11) % Eos % (Auto) 3.2 (0-4) % Baso % (Auto) 0.8 (0-2) % Lymph # (Auto) 2.5 (1.2-4.9) X10*3/uL [place] # (Auto) 0.7 (0.1-1.2) X10*3/uL Eos # (Auto) 0.2 (0.0-0.4) X10*3/uL Baso # (Auto) 0.1 (0.0-0.2) X10*3/uL Abs Immat Gran (auto) 0.13 H (0.00-0.03) X10*3/uL Absolute Neuts (auto) 2.6 (2.0-8.3) x10*3/uL Absolute Nucleated RBC 0.040 H (0.0-0.012) X10*3/uL Nucleated RBC % (auto) 0.6 H (0.0-0.2) /100WBC Sodium (135-145) mmol/L Potassium (3.3-5.1) mmol/L Chloride (96-108) mmol/L Carbon Dioxide (22-29) mmol/L Anion Gap (12-20) BUN (9-16) mg/dL Creatinine (0.5-1.4) mg/dL Estim Creat Clear Calc Estimated GFR POC Glucose 48 L* 66 (60-115) mg/dL Random Glucose (60-115) mg/dL Calcium (8.4-10.2) mg/dL Total Bilirubin (0.0-1.0) mg/dL Direct Bilirubin (0.0-0.5) mg/dL AST (5-31) U/L ALT (0-31) U/L Alkaline Phosphatase (39-117) U/L Total Creatine Kinase (26-140) U/L Troponin I High Sens (<3.5-17.0) ng/L Total Protein (6.5-8.0) g/dL Albumin (3.5-5.0) g/dL Beta HCG, Quant mIU/mL Ethyl Alcohol mg/dL COVID-19 (ZACK) (Negative) COVID-19 Clin Com Discharge Plan Discharge Clinical Impression: Substance abuse, Suicidal ideation, Hypoglycemia Patient Disposition: Still a Patient Prescriptions: No Action methadone [Methadose] 10 mg/mL Concentrate 135 mg PO DAILY Qty: 0 0RF Rx Instructions: Partial Fill upon patient request. nicotine (polacrilex) 2 mg Gum 4 mg buccal Q2H PRN (Reason: Nicotine Cravings) Qty: 30 0RF cyclobenzaprine 5 mg Tablet 5 mg PO BID Qty: 14 0RF nicotine 21 mg/24 hr Patch 24 Hour 21 mg transdermal DAILY PRN (Reason: nicotine cravings) Qty: 30 0RF thiamine mononitrate (vit B1) 100 mg Tablet 100 mg PO DAILY Qty: 30 0RF woecoovw-mtt-izjq fum-folic ac 7.5 mg iron-400 mcg tablet 1 tab PO DAILY Qty: 30 0RF naloxone [Narcan] 4 mg/actuation spray,non-aerosol 4 mg intranasal Q2M PRN (Reason: opioid overdose) Qty: 2 0RF Rx Instructions: spray 1 dose into ONE nostril; alternate nostrils w each dose until help arrives gabapentin 800 mg tablet 1 tab PO QID topiramate 200 mg tablet 1 tab PO BID Cetaphil Bar 1 appl TOPICAL QID PRN (Reason: skin protectant) diclofenac potassium 50 mg tablet 1 tab PO BID hydroxyzine HCl 25 mg tablet 1 tab PO Q6H PRN (Reason: Anxiety) buspirone 15 mg tablet 1 tab PO TID propranolol 10 mg tablet 10 mg PO Q6H PRN (Reason: Anxiety) Protocol: Hold for SBP/HR < HOLD for SBP < : 90 HOLD for HR < : 60 loratadine 10 mg tablet 1 tab PO DAILY PRN (Reason: Allergy Symptoms) clonazepam 0.5 mg tablet 0.5 mg PO BID PRN (Reason: Anxiety)
[2022-06-15 02:53] LABS: COVID-19 Test Negative (Negative)
[2022-06-15 03:39] VITALS: RESP 14
[2022-06-15 03:53] LABS: Troponin-I High Sensitivity < 3.5 ng/L (<3.5-17.0)
[2022-06-15 03:54] LABS: Alanine Aminotransferase 76 U/L (0-31); Albumin Level 3.9 g/dL (3.5-5.0); Alkaline Phosphatase 78 U/L (39-117); Anion Gap 22 (12-20); Aspartate Amino Transferase 92 U/L (5-31); Bilirubin Direct 0.4 mg/dL (0.0-0.5); Bilirubin Total 0.8 mg/dL (0.0-1.0); Blood Urea Nitrogen 6 mg/dL (9-16); Calcium 8.9 mg/dL (8.4-10.2); Carbon Dioxide 17 mmol/L (22-29); Chloride 109 mmol/L (96-108); Creatinine Clr Calc Pharmacy 119.7; Estimated Glomerular Filt Rate > 60; Ethanol < 10 mg/dL; Glucose Random 58 mg/dL (60-115); Potassium 4.4 mmol/L (3.3-5.1); Sodium 144 mmol/L (135-145); Total Protein 6.2 g/dL (6.5-8.0)
[2022-06-15 03:56] LABS: HCG Quantitative < 2 mIU/mL
[2022-06-15] MEDS: Glucose Gel 15 GM GEL..GRAM. PO ×2 (04:35→05:00)
[2022-06-15 04:40] LABS: Glucose, Whole Blood 48 mg/dL (60-115)
[2022-06-15 04:44] LABS: MANUAL DIFF FLAG NO
[2022-06-15 04:46] LABS: Basophils Absolute Auto 0.1 X10*3/uL (0.0-0.2); Basophils Percent Auto 0.8 % (0-2); Eosinophils Absolute Auto 0.2 X10*3/uL (0.0-0.4); Eosinophils Percent Auto 3.2 % (0-4); Hematocrit 35.3 % (37.0-47.0); Hemoglobin 12.2 g/dl (12.0-16.0); Imm Gran Abs Auto 0.13 X10*3/uL (0.00-0.03); Imm Gran Pct Auto 2.1 % (0.0-0.4); Lymphocytes Absolute Auto 2.5 X10*3/uL (1.2-4.9); Lymphocytes Percent Auto 40.7 % (20-40); Mean Corpuscular HGB Conc 34.6 g/dl (31.0-35.0); Mean Corpuscular Hemoglobin 30.9 pg (27.0-33.0); Mean Corpuscular Volume 89.4 fL (80.0-98.0); Mean Platelet Volume 10.1 fL (9.4-12.3); Monocytes Absolute Auto 0.7 X10*3/uL (0.1-1.2); Monocytes Percent Auto 11.6 % (2-11); NRBC Pct Auto 0.6 /100WBC (0.0-0.2); Neutrophils Absolute Auto 2.6 x10*3/uL (2.0-8.3); Neutrophils Percent Auto 41.6 % (45-73); Platelet Count 134 X10*3/uL (160-400); Red Blood Count 3.95 X10*6/uL (4.20-5.50); Red Cell Distribution Width 14.1 % (11.0-16.0); White Blood Count 6.2 X10*3/uL (4.8-10.8)
[2022-06-15 05:06] LABS: Glucose, Whole Blood 66 mg/dL (60-115)
[2022-06-15 05:09] VITALS: BP 118/58; PULSE 74; RESP 16; O2SAT 96
[2022-06-15 05:52] LABS: Glucose, Whole Blood 70 mg/dL (60-115)
[2022-06-15 06:39] LABS: Glucose, Whole Blood 88 mg/dL (60-115)
[2022-06-15 06:39] LABS: Glucose, Whole Blood 91 mg/dL (60-115)
[2022-06-15 07:44] LABS: Glucose, Whole Blood 99 mg/dL (60-115)
[2022-06-15 10:26] LABS: Glucose, Whole Blood 65 mg/dL (60-115)
[2022-06-15 12:34] LABS: Glucose, Whole Blood 111 mg/dL (60-115)
--- NOTE | 2022-06-15 13:53 | MHC.RECOVSUP ---
? Reason for consult:OPI o Current location:[facility] o Identified substance use concern: - Overdose - Withdrawal - Seeking ATS (detox) - Support ? Intervention: o ATS bed search started/completed/in process o MAT started or to be started o Community resources provided o Harm reduction discussion ? Plan: o Referral to [facility] o Bed search in progress to o Follow up tomorrow o Patient awaiting crisis evaluation o Patient to follow up with [facility] after discharge ? Additional information:
--- NOTE | 2022-06-15 13:54 | MHC.RECOVSUP ---
? Reason for consult:OPI o Current location:[facility] o Identified substance use concern: - Seeking ATS (detox) - Support ? Intervention: o ATS bed search started/completed/in process o Harm reduction discussion ? Plan: o Bed search in progress to o Patient awaiting crisis evaluation ? Additional information:Care Team asked me to speak with pt and ask her if she's interested in going to detox, she said yes she would go, I confirmed [facility] has 3 beds and informed Care Team.
[2022-06-15 14:09] VITALS: BP 103/55; PULSE 66; RESP 18; O2SAT 97
[2022-06-15 17:17] VITALS: BP 126/70; PULSE 74; RESP 16; TEMP 36.6; O2SAT 98
[2022-06-15 17:22] LABS: Glucose, Whole Blood 81 mg/dL (60-115)
[2022-06-16] MEDS: LORazepam 1 MG TABLET PO (04:03)
[2022-06-16 06:00] VITALS: BP 134/65; PULSE 53; RESP 15; TEMP 36.6; O2SAT 97
[2022-06-16 06:24] LABS: Glucose, Whole Blood 99 mg/dL (60-115)
--- NOTE | 2022-06-16 06:26 | PC.NURSE ---
Patient slept through the night, no distress observed/reported, med rec completed including Methadone dose verified/pending provider's approval, patient compliant with medication, Ativan 1 mg po administered at 0403 for comfort, POC at 0619 was 99, pending urine KYLE test, VSS, behavior appropriate and non concerning, care and recovery team is coordinating detox bed search at [facility] in [place], continue to monitor.
--- NOTE | 2022-06-16 07:00 | HE.PHANOTE ---
Received methadone verification form from JEREMY head last on 06/11/22 @0306
[2022-06-16 08:59] VITALS: BP 125/67; PULSE 56; RESP 16; TEMP 36.8; O2SAT 95
--- NOTE | 2022-06-16 09:00 | MHC.RECOVSUP ---
Recovery Support note: Patient is a 42 year old Yemeni speaking female who presented to [facility] ED under the influence of multiple substances reporting SI on 06/15. This newspaper writer met with patient on 06/16 to discuss substance use treatment options. Patient is now denying SI and interested in getting help for her substance use. Patient reports daily heroin and cocaine use and a desire to stop using. Patient is interested in going to detox. This newspaper writer will assist patient in referring to ATS facilities.
[2022-06-16] MEDS: Loratadine 10 MG TABLET PO (09:43)
[2022-06-16] MEDS: busPIRone HCl 5 MG TABLET 15 MG PO ×2 (09:43→15:03)
[2022-06-16] MEDS: hydrOXYzine HCL 25 MG TABLET PO (09:43)
[2022-06-16] MEDS: Cyanocobalamin (Vitamin B-12) 1,000 MCG TABLET 1000 MCG PO (09:43)
[2022-06-16] MEDS: methADONE HCl 20 MG/2 ML ORAL.CONC 145 MG PO (09:45)
[2022-06-16] MEDS: Propranolol HCL 10 MG TABLET PO (09:52)
[2022-06-16] MEDS: Cyclobenzaprine HCl 10 MG TABLET PO (12:12)
[2022-06-16 14:35] LABS: Anion Gap 17 (12-20); Blood Urea Nitrogen 3 mg/dL (9-16); Calcium 9.1 mg/dL (8.4-10.2); Carbon Dioxide 23 mmol/L (22-29); Chloride 109 mmol/L (96-108); Creatinine Clr Calc Pharmacy 129.2; Estimated Glomerular Filt Rate > 60; Glucose Random 108 mg/dL (60-115); Potassium 4.5 mmol/L (3.3-5.1); Sodium 144 mmol/L (135-145)
[2022-06-16] MEDS: Gabapentin 300 MG CAPSULE 900 MG PO (15:02)
== END 2022-06-16 15:21 ==
PROVIDERS: Emergency Medicine; Emergency Provider Emergency Medicine
DX: F33.1 Major depressive disorder, recurrent, moderate (principal); R45.851 Suicidal ideations; F11.20 Opioid dependence, uncomplicated; F17.210 Nicotine dependence, cigarettes, uncomplicated; Z20.822 Contact with and (suspected) exposure to COVID-19; Z79.899 Other long term (current) drug therapy; Z71.6 Tobacco abuse counseling; Z71.51 Drug abuse counseling and surveillance of drug abuser
CPT/HCPCS: 36415; 80048; 80076; 82077; 82550; 82947; 84484; 84702; 85025; 87635; 93005; 96372; 99285

== ENCOUNTER 2022-06-24 11:41 | Emergency (ER) | payer OTHER, SELFPAY ==
--- NOTE | ~2022-06-24 | XR_ITS ---
EXAMINATION: XR HAND, RIGHT CLINICAL INFORMATION: Pain COMPARISON: Right hand radiographs 07/08/2017 TECHNIQUE: PA, lateral, and oblique views of the right hand. FINDINGS: Soft tissue swelling overlying the dorsal wrist and hand. No fracture or dislocation. Joint spaces throughout the hand and wrist are maintained. Small osteophytes at the IP joint of the thumb compatible with mild osteoarthritis. No chondrocalcinosis or erosions. XR/XR hand RT min 3V IMPRESSION: 1. No fracture or dislocation. 2. Soft tissue swelling overlying the dorsal hand and wrist.
[2022-06-24 12:01] VITALS: BP 140/101; PULSE 100; RESP 18; TEMP 36.2; O2SAT 97; BMI 32.3
--- NOTE | 2022-06-24 12:36 | ED_ITS ---
HPI - Psych General Chief Complaint: ETOH/Substance Use Stated Complaint: missed 4 days of methadone, substance use Time Seen by Provider: 06/24/22 12:32 Source: patient Mode of arrival: EMS Limitations: no limitations History of Present Illness HPI Narrative: states using drugs and off of methadone x 4 days wants detox. also worried about possible tick bite to R hand just left AMA from Jignesh recinos MD complaint: substance abuse Onset (ago): year(s) Duration: changing over time History of same: Yes Relieving factors: none Exacerbating factors: drug use Context: recent drug abuse and not taking psychiatric medications Associated psychiatric symptoms: depression Associated symptoms: other (thinks she pulled a tick off her R hand yesterday ) Treatments prior to arrival: none Related Data Home Medications Medication Instructions Recorded Confirmed buspirone 15 mg tablet 1 tab PO TID 06/16/22 06/16/22 cyanocobalamin (vitamin B-12) 1 tab PO DAILY 06/16/22 06/16/22 1,000 mcg tablet cyclobenzaprine 10 mg tablet 1 tab PO BID PRN Muscle Spasm 06/16/22 06/16/22 hydroxyzine HCl 25 mg tablet 1 tab PO BID 06/16/22 06/16/22 loratadine 10 mg tablet 1 tab PO DAILY 06/16/22 06/16/22 methadone 10 mg/mL oral 145 mg PO DAILY 06/16/22 06/16/22 concentrate (Methadose) propranolol 10 mg tablet 1 tab PO BID 06/16/22 06/16/22 Allergies Allergy/AdvReac Type Severity Reaction Status Date / Time quetiapine [From SEROQUEL] Allergy Severe THROAT Verified 04/01/22 10:03 SWELLING azithromycin [AZITHROMYCIN] Allergy Unknown Unknown Verified 04/01/22 10:03 erythromycin base Allergy Unknown RASH Verified 05/22/21 18:18 [ERYTHROMYCIN BASE] olanzapine [From ZYPREXA] Allergy Unknown PEDAL EDEMA Verified 05/22/21 18:18 sulfacetamide Allergy Unknown Unknown Verified 05/22/21 18:18 [From Sulfacet-R] sulfamethoxazole Allergy Unknown ITCHING Verified 05/22/21 18:18 [From BACTRIM] sulfur [From Sulfacet-R] Allergy Unknown Unknown Verified 05/22/21 18:18 trimethoprim [From BACTRIM] Allergy Unknown ITCHING Verified 05/22/21 18:18 risperidone [From RISPERDAL] AdvReac Unknown TWITCHING Verified 04/01/22 10:03 seafood AdvReac Unknown Vomiting Verified 05/22/21 18:18 shellfish derived AdvReac Unknown VOMITING Verified 04/01/22 10:03 [SHELLFISH DERIVED] trazodone AdvReac restless Verified 04/28/22 13:01 legs Review of Systems Review of Systems: Constitutional : No Fever, No Chills ENT/Mouth : No Ear Pain, No Nasal Congestion, No sore throat Eyes: No Eye Pain, No Swelling, No Redness Cardiovascular : No Chest Pain, No SOB Respiratory : No Cough, No Sputum, No Dyspnea Gastrointestinal : No Nausea, No Vomiting, No Diarrhea, No Hematochezia, No Melena Genitourinary : No Dysuria, No Urinary Frequency, No Hematuria Musculoskeletal : No Myalgias Skin : No Skin Lesions, No rash, pos abrasion Neuro : No Weakness, No Numbness, No Paresthesias, No Dizziness, No Headache Psych : positive Anxiety, positive Depression, no SI/HI Heme/Lymph: No Lymphadenopathy Endocrine : No Polyuria, No Polydipsia All other systems reviewed and are negative [facility] Past Medical History Attestation statement: The following information was validated with the patient. Medical History (Updated 06/24/22 @ 13:44 by Niki Man DO) Back pain Chronic post-traumatic stress disorder (PTSD) Leg pain, bilateral Opioid dependence Opioid use disorder, moderate, in sustained remission, dependence Rhabdomyolysis Substance abuse Substance abuse Social History Social History Household Members: None Housing: Homeless Housing Other:: patient states she is homeless Do you presently have visiting nurse or other home services: No Unable to assess alcohol history related to: Refusing to respond Alcohol intake: current Alcohol intake frequency: does not drink Patient Tobacco Use Status: Former Tobacco user Tobacco use type: Cigarette Cigarette Packs Per Day: 1 Cigarettes Per Day: 20.0 Years Smoked: 10+ e-Cigarette/Vaping Use: Former Use Second Hand Smoke Exposure: Yes Substance Use Type: Crack/Cocaine and Heroin Advance Directives: Yes Advance Directives on File: Yes Advance Directives Date on File: 12/28/20 service: No Current occupational status: disabled Sexual orientation: Did not discuss Physical Exam Vital Signs: Vital Signs: Last Vital Signs Temp 97.2 F 06/24/22 12:01 Pulse 100 06/24/22 12:01 Resp 18 06/24/22 12:01 BP 140/101 H 06/24/22 12:01 Pulse Ox 97 06/24/22 12:01 O2 Del Method 06/24/22 12:01 BMI result Body Mass Index 32.3 Appearance: Alert. Oriented X3. No acute distress. Eyes: Pupils equal, round and reactive to light. ENT: Pharynx normal. Neck: Normal inspection. Neck supple. CVS: Normal heart rate and rhythm. Pulses normal. Respiratory: No respiratory distress. Breath sounds normal. Abdomen: Soft and nontender. Skin: Skin warm and dry. Normal skin color. R hand near 1st MCP small 1cm scabbed area no signs of cellulitis Extremities: No lower extremity edema. Neuro: Oriented X 3. No motor deficit. No sensory deficit. Course Course Course Narrative: CPK only 743 - med cleared for detox Physician observation started at 218pm. Patient placed in physician observation because the patient needed more time for care team to help with detox. At the time observation was started the patient's vitals were stable, patient is alert and oriented, Neuro: nonfocal, CV RRR, Lungs clear MDM - Psych MDM Narrative Medical decision making narrative: 42 yo female well known to us with bipolar history, substance abuse, kidney issues, rhabdo from drug abuse here wtih c/o wanting detox and off of methadone for many days - at this time she will need xray for FB of R hand though she notes a tick on her hand yesterday with a bite - 24 hours removed tick can get 200mg doxy. She will need labs including CPK once medically cleared will refer to CARE team. Given we cannot verify her methadone will start on 20mg methadone - last able to verify was 06/11 and hasn't taken it in 4+ days - patient aware and agrees. Lab Data Result diagrams: 06/24/22 13:43 06/24/22 13:43 Labs: Lab Results 06/24/22 06/24/22 06/24/22 Range/Units 13:43 13:43 13:43 WBC 3.4 L (4.8-10.8) X10*3/uL RBC 4.34 (4.20-5.50) X10*6/uL Hgb 13.0 (12.0-16.0) g/dl Hct 38.3 (37.0-47.0) % MCV 88.2 (80.0-98.0) fL MCH 30.0 (27.0-33.0) pg MCHC 33.9 (31.0-35.0) g/dl RDW 13.9 (11.0-16.0) % Plt Count 152 L (160-400) X10*3/uL MPV 10.3 (9.4-12.3) fL Immature Gran % (Auto) 0.3 (0.0-0.4) % Neut % (Auto) 55.8 (45-73) % Lymph % (Auto) 31.6 (20-40) % [place] % (Auto) 10.2 (2-11) % Eos % (Auto) 1.5 (0-4) % Baso % (Auto) 0.6 (0-2) % Lymph # (Auto) 1.1 L (1.2-4.9) X10*3/uL [place] # (Auto) 0.4 (0.1-1.2) X10*3/uL Eos # (Auto) 0.1 (0.0-0.4) X10*3/uL Baso # (Auto) 0.0 (0.0-0.2) X10*3/uL Abs Immat Gran (auto) 0.01 (0.00-0.03) X10*3/uL Absolute Neuts (auto) 1.9 L (2.0-8.3) x10*3/uL Absolute Nucleated RBC 0.000 (0.0-0.012) X10*3/uL Nucleated RBC % (auto) 0.0 (0.0-0.2) /100WBC Sodium 139 (135-145) mmol/L Potassium 4.0 (3.3-5.1) mmol/L Chloride 101 (96-108) mmol/L Carbon Dioxide 25 (22-29) mmol/L Anion Gap 17 (12-20) BUN 4 L (9-16) mg/dL Creatinine 0.70 (0.5-1.4) mg/dL Estim Creat Clear Calc 116.3 Estimated GFR > 60 Random Glucose 121 H (60-115) mg/dL Calcium 9.5 (8.4-10.2) mg/dL Total Creatine Kinase 743 H (26-140) U/L COVID-19 (ZACK) Negative (Negative) COVID-19 Clin Com See Note Discharge Plan Discharge Clinical Impression: Polysubstance abuse, Abrasion Patient Disposition: Still a Patient Prescriptions: No Action cyclobenzaprine 10 mg tablet 1 tab PO BID PRN (Reason: Muscle Spasm) cyanocobalamin (vitamin B-12) 1,000 mcg tablet 1 tab PO DAILY propranolol 10 mg tablet 1 tab PO BID hydroxyzine HCl 25 mg tablet 1 tab PO BID loratadine 10 mg tablet 1 tab PO DAILY buspirone 15 mg tablet 1 tab PO TID methadone [Methadose] 10 mg/mL concentrate 145 mg PO DAILY Rx Instructions: Partial Fill upon patient request.
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
[2022-06-24 13:49] LABS: MANUAL DIFF FLAG NO
[2022-06-24 13:53] LABS: Basophils Percent Auto 0.6 % (0-2); Eosinophils Absolute Auto 0.1 X10*3/uL (0.0-0.4); Eosinophils Percent Auto 1.5 % (0-4); Hematocrit 38.3 % (37.0-47.0); Imm Gran Abs Auto 0.01 X10*3/uL (0.00-0.03); Imm Gran Pct Auto 0.3 % (0.0-0.4); Lymphocytes Absolute Auto 1.1 X10*3/uL (1.2-4.9); Lymphocytes Percent Auto 31.6 % (20-40); Mean Corpuscular HGB Conc 33.9 g/dl (31.0-35.0); Mean Corpuscular Volume 88.2 fL (80.0-98.0); Mean Platelet Volume 10.3 fL (9.4-12.3); Monocytes Absolute Auto 0.4 X10*3/uL (0.1-1.2); Monocytes Percent Auto 10.2 % (2-11); Neutrophils Absolute Auto 1.9 x10*3/uL (2.0-8.3); Neutrophils Percent Auto 55.8 % (45-73); Platelet Count 152 X10*3/uL (160-400); Red Blood Count 4.34 X10*6/uL (4.20-5.50); Red Cell Distribution Width 13.9 % (11.0-16.0); White Blood Count 3.4 X10*3/uL (4.8-10.8)
[2022-06-24 14:08] LABS: COVID-19 Test Negative (Negative); IDNOW Serial# 16C4AD1C
[2022-06-24 14:14] LABS: Anion Gap 17 (12-20); Blood Urea Nitrogen 4 mg/dL (9-16); Calcium 9.5 mg/dL (8.4-10.2); Carbon Dioxide 25 mmol/L (22-29); Chloride 101 mmol/L (96-108); Creatinine Clr Calc Pharmacy 116.3; Estimated Glomerular Filt Rate > 60; Glucose Random 121 mg/dL (60-115); Sodium 139 mmol/L (135-145)
--- NOTE | 2022-06-24 15:56 | PC.NURSE ---
attempted to present med to client and patient has remained asleep for some time, maintained on checks
[2022-06-24] MEDS: methADONE HCl 20 MG/2 ML ORAL.CONC PO (18:23)
--- NOTE | 2022-06-24 18:44 | MHC.RECOVSUP ---
? Reason for consult: Recovery Support o ?Current location: [facility]? o ?Identified substance use concern: Substance Use Disorder - Withdrawal - Seeking ATS (detox) - Support ? ?Intervention: o ATS bed search started/completed/in process o MAT started or to be started o Community resources provided o Harm reduction discussion ? Plan: o Referral to [facility] o Bed search in progress to o Patient to follow up with [facility] after discharge ? Additional information:?Patient consultation with the Care Team before entry. I was able to assist patient with an intake to [facility]. Patient completed intake, discharge plan was started and once completed a lift will be ordered for [place].
== END 2022-06-24 19:50 | disposition home or self-care (01) ==
PROVIDERS: Emergency Provider Emergency Medicine; PCP Internal Medicine
DX: S60.511A Abrasion of right hand, initial encounter (principal); F14.19 Cocaine abuse with unspecified cocaine-induced disorder; F11.19 Opioid abuse with unspecified opioid-induced disorder; X58.XXXA Exposure to other specified factors, initial encounter; Y93.9 Activity, unspecified; Y92.9 Unspecified place or not applicable; Y99.9 Unspecified external cause status; Z20.822 Contact with and (suspected) exposure to COVID-19; Z87.891 Personal history of nicotine dependence; Z79.899 Other long term (current) drug therapy; Z71.51 Drug abuse counseling and surveillance of drug abuser
CPT/HCPCS: 73130; 80048; 82550; 85025; 87635; 99283; 99284

== ENCOUNTER 2022-08-02 14:02 | Emergency (ER) | payer OTHER, SELFPAY ==
--- NOTE | 2022-08-02 14:19 | ED_ITS ---
HPI - General Adult General Chief complaint: General Medical Stated complaint: substance abuse Time Seen by Provider: 08/02/22 14:09 Source: patient, EMS and old records reviewed Mode of arrival: EMS Limitations: no limitations History of Present Illness HPI narrative: 42 yo female with history of polysubstance abuse disorder on methadone, PTSD, bipolar disorder, active IVDA, hx rhabdomyolysis who presents to the ER for evaluation of altered mental status and all over body pain in the setting of recent IV drug use. She reports she just left detox at [place] yesterday. She did not get her methadone so she used a lot of fentanyl last night. She injected in her bilateral lower arms. She slept at a friend's apartment. She was found by EMS standing up outside of a convenience store leaning against the wall. She was lethargic and appeared to be under the influence of drugs. She was c/o neck and back pain, bilateral shoulder pain and all over muscle and body pain. She had unreactive pupils per EMS and BP was unable to be obtained. Other VS were ok and glucose 130. She was brought to the ER for further evaluation. MD complaint: substance abuse, all over body pain Onset (ago): unknown Location: head, back, left, right, upper extremity and lower extremity Severity: severe Quality: stabbing and aching Pain Consistency: constant Relieving factors: none Exacerbating factors: none Associated symptoms: confusion and malaise Treatments prior to arrival: none Related Data Home Medications Medication Instructions Recorded Confirmed buspirone 15 mg tablet 1 tab PO TID 06/16/22 06/16/22 cyanocobalamin (vitamin B-12) 1 tab PO DAILY 06/16/22 06/16/22 1,000 mcg tablet cyclobenzaprine 10 mg tablet 1 tab PO BID PRN Muscle Spasm 06/16/22 06/16/22 hydroxyzine HCl 25 mg tablet 1 tab PO BID 06/16/22 06/16/22 loratadine 10 mg tablet 1 tab PO DAILY 06/16/22 06/16/22 methadone 10 mg/mL oral 145 mg PO DAILY 06/16/22 06/16/22 concentrate (Methadose) propranolol 10 mg tablet 1 tab PO BID 06/16/22 06/16/22 Previous Rx's Medication Instructions Recorded cephalexin 500 mg capsule 500 mg PO Q6H 7 days #28 caps 08/02/22 doxycycline hyclate 100 mg tablet 100 mg PO BID #14 tabs 08/02/22 Allergies Allergy/AdvReac Type Severity Reaction Status Date / Time quetiapine [From SEROQUEL] Allergy Severe THROAT Verified 04/01/22 10:03 SWELLING azithromycin [AZITHROMYCIN] Allergy Unknown Unknown Verified 04/01/22 10:03 erythromycin base Allergy Unknown RASH Verified 05/22/21 18:18 [ERYTHROMYCIN BASE] olanzapine [From ZYPREXA] Allergy Unknown PEDAL EDEMA Verified 05/22/21 18:18 sulfacetamide Allergy Unknown Unknown Verified 05/22/21 18:18 [From Sulfacet-R] sulfamethoxazole Allergy Unknown ITCHING Verified 05/22/21 18:18 [From BACTRIM] sulfur [From Sulfacet-R] Allergy Unknown Unknown Verified 05/22/21 18:18 trimethoprim [From BACTRIM] Allergy Unknown ITCHING Verified 05/22/21 18:18 risperidone [From RISPERDAL] AdvReac Unknown TWITCHING Verified 04/01/22 10:03 seafood AdvReac Unknown Vomiting Verified 05/22/21 18:18 shellfish derived AdvReac Unknown VOMITING Verified 04/01/22 10:03 [SHELLFISH DERIVED] trazodone AdvReac restless Verified 04/28/22 13:01 legs Review of Systems Review of Systems: Constitutional: No Fever, No Chills ENT/Mouth: No sore throat, No Rhinorrhea, No Swallowing Difficulty Eyes: No Eye Pain, No Swelling, No Redness Cardiovascular: No Chest Pain, No SOB, No Orthopnea, No Edema Respiratory: No Cough, No Sputum, No Wheezing, No dyspnea Gastrointestinal: + Nausea, No Vomiting, No Diarrhea, No abdominal Pain Genitourinary: No Dysuria, No Urinary Frequency, No Hematuria Musculoskeletal: + joint pain, + Myalgias Skin: No Skin Lesions, No rash Neuro: + Weakness, No Numbness, + Dizziness, + Headache Psych: No Anxiety/Panic, No Depression Heme/Lymph: No Bruising, No Lymphadenopathy Endocrine: No Polyuria, No Polydipsia PMFSH Past Medical History Medical History (Updated 08/02/22 @ 15:58 by ALISON Franco) Back pain Chronic post-traumatic stress disorder (PTSD) Leg pain, bilateral Opioid dependence Opioid use disorder, moderate, in sustained remission, dependence Rhabdomyolysis Substance abuse Substance abuse Social History Social History Household Members: None Housing: Homeless Housing Other:: patient states she is homeless Do you presently have visiting nurse or other home services: No Unable to assess alcohol history related to: Refusing to respond Alcohol intake: current Alcohol intake frequency: does not drink Patient Tobacco Use Status: Former Tobacco user Tobacco use type: Cigarette Cigarette Packs Per Day: 1 Cigarettes Per Day: 20.0 Years Smoked: 10+ Smoked in Last 30 Days: Yes e-Cigarette/Vaping Use: Former Use Second Hand Smoke Exposure: Yes Use of substances other than those prescribed or required for medical reasons: Yes Substance Use Type: Crack/Cocaine and Heroin Substance Use Frequency: Daily Advance Directives: Yes Advance Directives on File: Yes Advance Directives Date on File: 12/28/20 Patient : No service: No Current occupational status: disabled Sexual orientation: Did not discuss Physical Exam ED Vital Signs: Vital Signs - 24 hr 08/02/22 14:40 Temperature 98.0 F Pulse Rate 69 Respiratory Rate 12 Blood Pressure 106/70 Pulse Oximetry 96 Oxygen Delivery Method Room Air BMI result Body Mass Index 36.9 Appearance: LethargicOriented X3. No acute distress. Eyes: Pupils equal, round and reactive to light. ENT: Pharynx normal. Neck: Normal inspection. Neck supple. No midline tenderness, soft tissue tenderness bilaterally with limited range of motion due to pain. CVS: Normal heart rate and rhythm. Pulses normal. Respiratory: No respiratory distress. Breath sounds normal. Abdomen: Soft and nontender. +BS x4 Skin: Skin warm and dry. Normal skin color. Normal skin turgor. No rashes. Extremities: No lower extremity edema. track delgado of the bilateral upper extremities on the dorsal aspect of the bilateral wrists with erythema and tenderness and warmth. No palpable abscess. Neurovascularly intact distally. Neuro: lethargic but arouses to voice. Oriented X 3. moving all extremities and following simple commands. Course Course Course Narrative: 42-year-old female well known to this emergency department who presents to the ER for evaluation of polysubstance use and intoxication. She was found outside of a convenience store leaning against a wall, altered with minimally responsive pupils after admittedly using IV drugs last night. On arrival to the ER she is lethargic but oriented. Drugs were found on her person. He has track delgado on her lower forearms bilaterally with evidence of early cellulitis. No palpable abscess. Will plan to get basic lab workup and reassess. Reevaluation(s) Reevaluation #1: Multiple attempts at lab work and IVs were attempted by myself and Dr. Gray. Patient is no longer wanting to stay in the emergency department for evaluation or workup. She would like to leave against medical advice. Had lengthy discussion with her regarding the risks of leaving against medical advice. Medical Decision Making Lab Data Labs: Lab Results 08/02/22 Range/Units 14:52 COVID-19 ([facility]) Negative (Negative) COVID-19 Clin Com See Note Critical Care Time Critical Care Time Critical Care Time: No Discharge Plan Discharge Clinical Impression: Polysubstance use disorder Patient Disposition: Left Against Medical Advice Instructions: Polysubstance Abuse (ED) Additional Instructions: Do not use IV drugs, it can kill you. Your knee have signs of a soft tissue/ skin infection in your left wrist, take the prescribed antibiotics for this. Do not inject drugs into this area, it can cause a bloodstream infection and be life-threatening. Recommend detox. Your deciding to leave against medical advice. there are risks of worsening mentation, infection, sepsis, . Prescriptions: New doxycycline hyclate 100 mg tablet 100 mg PO BID Qty: 14 0RF cephalexin 500 mg capsule 500 mg PO Q6H 7 Days Qty: 28 0RF No Action cyclobenzaprine 10 mg tablet 1 tab PO BID PRN (Reason: Muscle Spasm) cyanocobalamin (vitamin B-12) 1,000 mcg tablet 1 tab PO DAILY propranolol 10 mg tablet 1 tab PO BID hydroxyzine HCl 25 mg tablet 1 tab PO BID loratadine 10 mg tablet 1 tab PO DAILY buspirone 15 mg tablet 1 tab PO TID methadone [Methadose] 10 mg/mL concentrate 145 mg PO DAILY Rx Instructions: Partial Fill upon patient request. Stand Alone Forms: Against Medical Advice
[2022-08-02 14:40] VITALS: BP 106/70; PULSE 69; RESP 12; TEMP 36.7; O2SAT 96; O2SAT 98; BMI 36.9
[2022-08-02 15:10] LABS: COVID-19 Test Negative (Negative); IDNOW Serial# 16C4AD1C
--- NOTE | 2022-08-02 15:21 | MHC.RECOVSUP ---
? Reason for consult:OPI o? Current location:[facility]? o? Identified substance use concern:? -? Support ?? Intervention: ? Plan: o? Follow up tomorrow? ? ? Additional information:RC met with pt, couldn't speak with pt due to intoxication. I informed pt that I'd leave a note for the next recovery [facility] team member to follow up with her.
--- NOTE | 2022-08-02 15:50 | PC.NURSE ---
THIS PCT ASSUMED CARE OF PT AT 1500 ,PT STATED SHE WANT TO LEAVE MD MEJIA AND APOLONIA AVILA AWARE .
--- NOTE | 2022-08-02 16:13 | PC.NURSE ---
Pt left against medical advise despite multiple attempts to licensed mental health counselor/educate otherwise. Discharge instructions reviewed with pt. All questions answered. Pt verbalizes understanding discharge instructions and risks of leaving AMA. Provider aware.
== END 2022-08-02 16:15 | disposition left against medical advice (07) ==
PROVIDERS: Physician Assistant; Emergency Provider Emergency Medicine; PCP Internal Medicine
DX: F19.10 Other psychoactive substance abuse, uncomplicated (principal); R53.83 Other fatigue; M79.10 Myalgia, unspecified site; L03.114 Cellulitis of left upper limb; L03.113 Cellulitis of right upper limb; F11.20 Opioid dependence, uncomplicated; F43.10 Post-traumatic stress disorder, unspecified; F31.9 Bipolar disorder, unspecified; Z79.899 Other long term (current) drug therapy; Z87.891 Personal history of nicotine dependence; Z20.822 Contact with and (suspected) exposure to COVID-19
CPT/HCPCS: 87635; 99283; 99284

== ENCOUNTER 2022-08-04 06:38 | Inpatient (IN) | payer OTHER, SELFPAY ==
--- NOTE | 2022-08-04 | ECG_ITS ---
Test Reason : Back Pain Blood Pressure : / mmHG Vent. Rate : 064 BPM Atrial Rate : 064 BPM P-R Int : 168 ms QRS Dur : 084 ms QT Int : 430 ms P-R-T Axes : 000 142 156 degrees QTc Int : 443 ms suspect limb lead reversal Normal sinus rhythm Low voltage QRS Left posterior fascicular block Nonspecific T wave abnormality Abnormal ECG When compared with ECG of 15-JUN-2022 02:05, Left posterior fascicular block is now Present Nonspecific T wave abnormality, worse in Inferior leads Nonspecific T wave abnormality now evident in Lateral leads QT has shortened T wave inversion more evident in Anterior leads advise repeat study to check limb lead reversal Referred By: Brooks Mao Electronically Signed By:NAE ROJO MD
[2022-08-04 06:39] VITALS: BP 119/63; BP 140/100; PULSE 59; PULSE 77; RESP 16; TEMP 36.4; O2SAT 100; O2SAT 97; BMI 28.4
--- NOTE | 2022-08-04 07:05 | ED_ITS ---
HPI - General Adult General Chief complaint: General Medical Stated complaint: DIFFICULTY MOVING, PAIN IN HANDS Time Seen by Provider: 08/04/22 06:43 History of Present Illness HPI narrative: Patient is a 42-year-old female presented today with having bilateral hand pain. Bilateral forearm pain. Back pain. Positive history of polysubstance abuse. Patient admits to using heroin, fentanyl, cocaine after leaving AMA from the emergency department 2 days prior. Also complaining of back pain. The back pain is diffuse over the entire back. Patient claims she has a history of rhabdomyolysis. This morning she was unable to get to the methadone clinic. Claims she normally takes 130 mg of methadone. Related Data Home Medications Medication Instructions Recorded Confirmed buspirone 15 mg tablet 30 mg PO TID 06/16/22 08/04/22 cyanocobalamin (vitamin B-12) 1,000 mcg PO DAILY 06/16/22 08/04/22 1,000 mcg tablet cyclobenzaprine 10 mg tablet 10 mg PO BID PRN Muscle Spasm 06/16/22 08/04/22 loratadine 10 mg tablet 10 mg PO DAILY 06/16/22 08/04/22 methadone 10 mg/mL oral 145 mg PO DAILY 06/16/22 08/04/22 concentrate (Methadose) propranolol 10 mg tablet 10 mg PO BID 06/16/22 08/04/22 acetaminophen 325 mg tablet 650 mg PO DAILY PRN Pain 08/04/22 08/04/22 clonazepam 0.5 mg tablet 0.5 mg PO BID PRN Anxiety 08/04/22 08/04/22 diclofenac potassium 50 mg tablet 50 mg PO BID 08/04/22 08/04/22 duloxetine 30 mg capsule,delayed 30 mg PO DAILY 08/04/22 08/04/22 release fluticasone propionate 50 1 spray intranasal BID 08/04/22 08/04/22 mcg/actuation nasal spray,suspension gabapentin 800 mg tablet 800 mg PO TID 08/04/22 08/04/22 hydroxyzine HCl 50 mg tablet 50 mg PO BID 08/04/22 08/04/22 ketoconazole 2 % topical cream 1 applic topical BID PRN Rash 08/04/22 08/04/22 methocarbamol 500 mg tablet 1,000 mg PO BID 08/04/22 08/04/22 topiramate 50 mg tablet 50 mg PO BID 08/04/22 08/04/22 zolpidem 5 mg tablet 5 mg PO BEDTIME PRN Sleep 08/04/22 08/04/22 Allergies Allergy/AdvReac Type Severity Reaction Status Date / Time quetiapine [From SEROQUEL] Allergy Severe THROAT Verified 04/01/22 10:03 SWELLING azithromycin [AZITHROMYCIN] Allergy Unknown Unknown Verified 04/01/22 10:03 erythromycin base Allergy Unknown RASH Verified 05/22/21 18:18 [ERYTHROMYCIN BASE] olanzapine [From ZYPREXA] Allergy Unknown PEDAL EDEMA Verified 05/22/21 18:18 sulfacetamide Allergy Unknown Unknown Verified 05/22/21 18:18 [From Sulfacet-R] sulfamethoxazole Allergy Unknown ITCHING Verified 05/22/21 18:18 [From BACTRIM] sulfur [From Sulfacet-R] Allergy Unknown Unknown Verified 05/22/21 18:18 trimethoprim [From BACTRIM] Allergy Unknown ITCHING Verified 05/22/21 18:18 risperidone [From RISPERDAL] AdvReac Unknown TWITCHING Verified 04/01/22 10:03 seafood AdvReac Unknown Vomiting Verified 05/22/21 18:18 shellfish derived AdvReac Unknown VOMITING Verified 04/01/22 10:03 [SHELLFISH DERIVED] trazodone AdvReac restless Verified 04/28/22 13:01 legs Review of Systems Review of Systems: Positive diffuse body ache PMFSH Past Medical History Attestation statement: The following information was validated with the patient. Medical History Back pain Chronic post-traumatic stress disorder (PTSD) Leg pain, bilateral Opioid dependence Opioid use disorder, moderate, in sustained remission, dependence Rhabdomyolysis Substance abuse Substance abuse Social History Social History Household Members: None Housing: Homeless Housing Other:: patient states she is homeless Do you presently have visiting nurse or other home services: No Unable to assess alcohol history related to: Refusing to respond Alcohol intake: former Patient Tobacco Use Status: Former Tobacco user Tobacco use type: Cigarette Cigarette Packs Per Day: 1 Cigarettes Per Day: 20.0 Years Smoked: 10+ Smoked in Last 30 Days: Yes e-Cigarette/Vaping Use: Former Use Second Hand Smoke Exposure: Yes Use of substances other than those prescribed or required for medical reasons: Yes Substance Use Type: Crack/Cocaine and Heroin Substance Use Frequency: Chronic Longstanding Last Used Substance: Hours (ago) Advance Directives: Yes Advance Directives on File: Yes Advance Directives Date on File: 12/28/20 service: No Current occupational status: disabled Sexual orientation: Did not discuss Physical Exam ED Vital Signs: Vital Signs - 24 hr 08/04/22 06:39 08/04/22 07:11 08/04/22 10:08 Temperature 97.5 F 97.6 F 97.5 F Pulse Rate 59 65 72 Respiratory Rate 16 18 16 Blood Pressure 119/63 109/58 L 128/75 Pulse Oximetry 97 100 100 Oxygen Delivery Method Room Air Room Air Room Air BMI result Body Mass Index 28.4 Appearance: Alert. Oriented X3. No acute distress. Eyes: Pupils equal, round and reactive to light. ENT: Pharynx normal. Neck: Normal inspection. Neck supple. No lymph nodes noted. No crepitus CVS: Normal heart rate and rhythm. Pulses normal. Normal S1 and S2 Respiratory: No respiratory distress. Breath sounds normal. No Wheezing. No rales Abdomen: Soft and nontender. No rigidity. No distention. good BS x4 Back exam there is no gross spinal tenderness elicited. Patient has diffuse pain over her entire back. Skin: Skin warm and dry. No gross abscess palpable. Positive diffuse redness over the arm and forearm wrist. Extremities: No lower extremity edema. Neurovascular intact to all extremities. No Lacerations. No Rash Neuro: Oriented X 3. No motor deficit. No sensory deficit. Moving all ext ermities. No slurred speech Medications Administered Generic Name Dose Route Start Last Admin Trade Name Freq PRN Reason Stop Dose Admin Enoxaparin Sodium 40 mg 08/04/22 11:30 08/04/22 11:54 Enoxaparin Sodium 40 Mg/0.4 Ml Syringe SUBCUT Not Given Q24H EDER Doxycycline Hyclate 100 mg/ 250 mls @ 166.67 mls/hr 08/04/22 11:30 08/04/22 11:46 Sodium Chloride IV 166.67 mls/hr Q12H EDER Administration Discontinued Medications Generic Name Dose Route Start Last Admin Trade Name Freq PRN Reason Stop Dose Admin Sodium Chloride 1,000 mls @ 999 mls/hr 08/04/22 07:15 08/04/22 09:19 Ns IV 08/04/22 08:15 Infused .Q1H1M EDER Infusion Clindamycin Phosphate 600 mg in 50 mls @ 100 mls/hr 08/04/22 07:03 08/04/22 08:15 Cleocin IV 08/04/22 07:32 Infused ONCE ONE Infusion Sodium Chloride 1,000 mls @ 999 mls/hr 08/04/22 09:00 08/04/22 11:08 Ns IV 08/04/22 10:00 Infused .Q1H1M EDER Infusion Sodium Chloride 1,000 mls @ 999 mls/hr 08/04/22 09:00 08/04/22 11:08 Ns IV 08/04/22 10:00 Infused .Q1H1M EDER Infusion Sodium Bicarbonate 150 meq/ 1,000 mls @ 100 mls/hr 08/04/22 09:15 08/04/22 11:39 Dextrose IV Infused .Q10H EDER Infusion Ketorolac Tromethamine 30 mg 08/04/22 07:02 08/04/22 07:43 Ketorolac Tromethamine 30 Mg/Ml Vial IVPUSH 08/04/22 07:03 30 mg ONCE ONE Administration Methadone HCl 135 mg 08/04/22 10:15 08/04/22 10:29 Methadone Hcl 20 Mg/2 Ml Oral.Conc PO 08/04/22 10:16 135 mg ONCE ONE Administration Medical Decision Making MDM Narrative Medical decision making narrative: Patient has a long history of polysubstance abuse. History of rhabdo. Presented today with having generalized malaise weakness. Patient left against medical advice 2 days prior. Has diffuse redness in bilateral upper extremity. Missed methadone for 2 days. Been using heroin and fentanyl. Mixed with cocaine. Patient you very weak tired. IV line is established. CPK was over 6000. Creatinine was normal. IV fluids given. Positive cellulitis. Lactate was normal. Cultures obtained. Antibiotics started. Patient is a poor candidate for follow-up. Discussed with patient at length the need to stop using drugs. Take her antibiotics. Will admit patient for further evaluation. Lab Data Result diagrams: 08/04/22 07:40 08/04/22 07:40 Labs: Lab Results 08/04/22 08/04/22 08/04/22 Range/Units 07:40 07:40 07:40 WBC 4.1 L (4.8-10.8) X10*3/uL RBC 4.57 (4.20-5.50) X10*6/uL Hgb 13.3 (12.0-16.0) g/dl Hct 39.8 (37.0-47.0) % MCV 87.1 (80.0-98.0) fL MCH 29.1 (27.0-33.0) pg MCHC 33.4 (31.0-35.0) g/dl RDW 12.7 (11.0-16.0) % Plt Count 114 L (160-400) X10*3/uL MPV 9.8 (9.4-12.3) fL Immature Gran % (Auto) 0.5 H (0.0-0.4) % Neut % (Auto) 59.9 (45-73) % Lymph % (Auto) 30.0 (20-40) % [place] % (Auto) 7.2 (2-11) % Eos % (Auto) 1.7 (0-4) % Baso % (Auto) 0.7 (0-2) % Lymph # (Auto) 1.2 (1.2-4.9) X10*3/uL [place] # (Auto) 0.3 (0.1-1.2) X10*3/uL Eos # (Auto) 0.1 (0.0-0.4) X10*3/uL Baso # (Auto) 0.0 (0.0-0.2) X10*3/uL Abs Immat Gran (auto) 0.02 (0.00-0.03) X10*3/uL Absolute Neuts (auto) 2.5 (2.0-8.3) x10*3/uL Absolute Nucleated RBC 0.000 (0.0-0.012) X10*3/uL Nucleated RBC % (auto) 0.0 (0.0-0.2) /100WBC ESR 11 (0-20) MM/HR Sodium 142 (135-145) mmol/L Potassium 3.5 (3.3-5.1) mmol/L Chloride 106 (96-108) mmol/L Carbon Dioxide 24 (22-29) mmol/L Anion Gap 16 (12-20) BUN 19 H D (9-16) mg/dL Creatinine 0.67 (0.5-1.4) mg/dL Estim Creat Clear Calc 114.2 Estimated GFR > 60 Random Glucose 99 (60-115) mg/dL Lactic Acid (0.5-2.0) mmol/L Calcium 9.4 (8.4-10.2) mg/dL Total Creatine Kinase 6163 H D (26-140) U/L C-Reactive Protein 0.27 (< or = 0.50) mg/dL Beta HCG, Quant mIU/mL Urine Color Urine Appearance Urine pH (5.0-9.0) Ur Specific [place] (1.005-1.025) Urine Protein (Neg-Trace) mg/dL Urine Glucose (UA) (Negative) mg/dL Urine Ketones (Negative) mg/dL Urine Blood (Negative) Urine Nitrite (Negative) Ur Leukocyte Esterase (Negative) Urine RBC (0-2) /HPF Urine WBC (0-5) /HPF Ur Squamous Epith Cells (0-2) /HPF Urine Bacteria (None Seen) Hyaline Casts (0-2) /LPF Urine Opiates Screen (Not Detect) Urine Fentanyl Screen (Not Detect) Ur Barbiturates Screen (Not Detect) Ur Phencyclidine Scrn (Not Detect) Ur Amphetamines Screen (Not Detect) U Benzodiazepines Scrn (Not Detect) Urine Cocaine Screen (Not Detect) U Marijuana (THC) Screen (Not Detect) COVID-19 (ZACK) (Negative) COVID-19 Clin Com 08/04/22 08/04/22 08/04/22 Range/Units 07:40 07:40 07:41 WBC (4.8-10.8) X10*3/uL RBC (4.20-5.50) X10*6/uL Hgb (12.0-16.0) g/dl Hct (37.0-47.0) % MCV (80.0-98.0) fL MCH (27.0-33.0) pg MCHC (31.0-35.0) g/dl RDW (11.0-16.0) % Plt Count (160-400) X10*3/uL MPV (9.4-12.3) fL Immature Gran % (Auto) (0.0-0.4) % Neut % (Auto) (45-73) % Lymph % (Auto) (20-40) % [place] % (Auto) (2-11) % Eos % (Auto) (0-4) % Baso % (Auto) (0-2) % Lymph # (Auto) (1.2-4.9) X10*3/uL [place] # (Auto) (0.1-1.2) X10*3/uL Eos # (Auto) (0.0-0.4) X10*3/uL Baso # (Auto) (0.0-0.2) X10*3/uL Abs Immat Gran (auto) (0.00-0.03) X10*3/uL Absolute Neuts (auto) (2.0-8.3) x10*3/uL Absolute Nucleated RBC (0.0-0.012) X10*3/uL Nucleated RBC % (auto) (0.0-0.2) /100WBC ESR (0-20) MM/HR Sodium (135-145) mmol/L Potassium (3.3-5.1) mmol/L Chloride (96-108) mmol/L Carbon Dioxide (22-29) mmol/L Anion Gap (12-20) BUN (9-16) mg/dL Creatinine (0.5-1.4) mg/dL Estim Creat Clear Calc Estimated GFR Random Glucose (60-115) mg/dL Lactic Acid 0.5 (0.5-2.0) mmol/L Calcium (8.4-10.2) mg/dL Total Creatine Kinase (26-140) U/L C-Reactive Protein (< or = 0.50) mg/dL Beta HCG, Quant < 2 mIU/mL Urine Color Urine Appearance Urine pH (5.0-9.0) Ur Specific [place] (1.005-1.025) Urine Protein (Neg-Trace) mg/dL Urine Glucose (UA) (Negative) mg/dL Urine Ketones (Negative) mg/dL Urine Blood (Negative) Urine Nitrite (Negative) Ur Leukocyte Esterase (Negative) Urine RBC (0-2) /HPF Urine WBC (0-5) /HPF Ur Squamous Epith Cells (0-2) /HPF Urine Bacteria (None Seen) Hyaline Casts (0-2) /LPF Urine Opiates Screen (Not Detect) Urine Fentanyl Screen (Not Detect) Ur Barbiturates Screen (Not Detect) Ur Phencyclidine Scrn (Not Detect) Ur Amphetamines Screen (Not Detect) U Benzodiazepines Scrn (Not Detect) Urine Cocaine Screen (Not Detect) U Marijuana (THC) Screen (Not Detect) COVID-19 (ZACK) Negative (Negative) COVID-19 Clin Com See Note 08/04/22 08/04/22 Range/Units 10:49 10:49 WBC (4.8-10.8) X10*3/uL RBC (4.20-5.50) X10*6/uL Hgb (12.0-16.0) g/dl Hct (37.0-47.0) % MCV (80.0-98.0) fL MCH (27.0-33.0) pg MCHC (31.0-35.0) g/dl RDW (11.0-16.0) % Plt Count (160-400) X10*3/uL MPV (9.4-12.3) fL Immature Gran % (Auto) (0.0-0.4) % Neut % (Auto) (45-73) % Lymph % (Auto) (20-40) % [place] % (Auto) (2-11) % Eos % (Auto) (0-4) % Baso % (Auto) (0-2) % Lymph # (Auto) (1.2-4.9) X10*3/uL [place] # (Auto) (0.1-1.2) X10*3/uL Eos # (Auto) (0.0-0.4) X10*3/uL Baso # (Auto) (0.0-0.2) X10*3/uL Abs Immat Gran (auto) (0.00-0.03) X10*3/uL Absolute Neuts (auto) (2.0-8.3) x10*3/uL Absolute Nucleated RBC (0.0-0.012) X10*3/uL Nucleated RBC % (auto) (0.0-0.2) /100WBC ESR (0-20) MM/HR Sodium (135-145) mmol/L Potassium (3.3-5.1) mmol/L Chloride (96-108) mmol/L Carbon Dioxide (22-29) mmol/L Anion Gap (12-20) BUN (9-16) mg/dL Creatinine (0.5-1.4) mg/dL Estim Creat Clear Calc Estimated GFR Random Glucose (60-115) mg/dL Lactic Acid (0.5-2.0) mmol/L Calcium (8.4-10.2) mg/dL Total Creatine Kinase (26-140) U/L C-Reactive Protein (< or = 0.50) mg/dL Beta HCG, Quant mIU/mL Urine Color Yellow Urine Appearance Clear Urine pH 6.0 (5.0-9.0) Ur Specific [place] 1.020 (1.005-1.025) Urine Protein Negative (Neg-Trace) mg/dL Urine Glucose (UA) Negative (Negative) mg/dL Urine Ketones 40 (Negative) mg/dL Urine Blood Negative (Negative) Urine Nitrite Negative (Negative) Ur Leukocyte Esterase Negative (Negative) Urine RBC 0-2 (0-2) /HPF Urine WBC 0-5 (0-5) /HPF Ur Squamous Epith Cells 0-2 (0-2) /HPF Urine Bacteria None Seen (None Seen) Hyaline Casts 0-2 (0-2) /LPF Urine Opiates Screen POSITIVE H (Not Detect) Urine Fentanyl Screen POSITIVE H (Not Detect) Ur Barbiturates Screen Not Detected (Not Detect) Ur Phencyclidine Scrn POSITIVE H (Not Detect) Ur Amphetamines Screen Not Detected (Not Detect) U Benzodiazepines Scrn POSITIVE H (Not Detect) Urine Cocaine Screen POSITIVE H (Not Detect) U Marijuana (THC) Screen Not Detected (Not Detect) COVID-19 (ZACK) (Negative) COVID-19 Clin Com Critical Care Time Critical Care Time Critical Care Time: Yes Total Critical Care Time: 40 Attestation: I have personally provided 40 minutes of critical care time exclusive of time spent on separately billable procedures. Time includes review of lab data, radiology results, discussion with consultants, and monitoring for potential decompensation. Interventions were performed as documented above Discharge Plan Discharge Clinical Impression: Cocaine abuse, Opioid dependence, Cellulitis, Rhabdomyolysis Patient Disposition: Admitted As Inpatient
[2022-08-04 07:11] VITALS: BP 109/58; PULSE 65; RESP 18; TEMP 36.4; O2SAT 100
[2022-08-04] MEDS: Ketorolac Tromethamine 30 MG/ML VIAL IVPUSH (07:43)
[2022-08-04] MEDS: Clindamycin Phosphate/D5W 600 MG/50 ML PIGGYBACK 100 MG IV (07:44)
[2022-08-04] MEDS: 0.9 % Sodium Chloride 1,000 ML 999 ML IV ×3 (07:49→10:04)
[2022-08-04 07:51] LABS: MANUAL DIFF FLAG NO
[2022-08-04 07:55] LABS: Basophils Percent Auto 0.7 % (0-2); Eosinophils Absolute Auto 0.1 X10*3/uL (0.0-0.4); Eosinophils Percent Auto 1.7 % (0-4); Hematocrit 39.8 % (37.0-47.0); Hemoglobin 13.3 g/dl (12.0-16.0); Imm Gran Abs Auto 0.02 X10*3/uL (0.00-0.03); Imm Gran Pct Auto 0.5 % (0.0-0.4); Lymphocytes Absolute Auto 1.2 X10*3/uL (1.2-4.9); Mean Corpuscular HGB Conc 33.4 g/dl (31.0-35.0); Mean Corpuscular Hemoglobin 29.1 pg (27.0-33.0); Mean Corpuscular Volume 87.1 fL (80.0-98.0); Mean Platelet Volume 9.8 fL (9.4-12.3); Monocytes Absolute Auto 0.3 X10*3/uL (0.1-1.2); Monocytes Percent Auto 7.2 % (2-11); Neutrophils Absolute Auto 2.5 x10*3/uL (2.0-8.3); Neutrophils Percent Auto 59.9 % (45-73); Platelet Count 114 X10*3/uL (160-400); Red Blood Count 4.57 X10*6/uL (4.20-5.50); Red Cell Distribution Width 12.7 % (11.0-16.0); White Blood Count 4.1 X10*3/uL (4.8-10.8)
[2022-08-04 08:12] LABS: Lactic Acid 0.5 mmol/L (0.5-2.0)
[2022-08-04 08:17] LABS: HCG Quantitative < 2 mIU/mL
[2022-08-04 08:18] LABS: COVID-19 Test Negative (Negative); IDNOW Serial# 9DB6401D
[2022-08-04 08:37] LABS: Anion Gap 16 (12-20); Blood Urea Nitrogen 19 mg/dL (9-16); C Reactive Protein 0.27 mg/dL (< or = 0.50); Calcium 9.4 mg/dL (8.4-10.2); Carbon Dioxide 24 mmol/L (22-29); Chloride 106 mmol/L (96-108); Creatinine Clr Calc Pharmacy 114.2; Estimated Glomerular Filt Rate > 60; Glucose Random 99 mg/dL (60-115); Potassium 3.5 mmol/L (3.3-5.1); Sodium 142 mmol/L (135-145)
--- NOTE | 2022-08-04 09:30 | PC.NURSE ---
Pt last dose of Methadone 135 mg on 08/01/22 at [facility] in [place]. Methadone dose verified by JULIET Francois. Dr. Henna weinberg, verification paper faxed to pharmacy.
[2022-08-04 10:08] VITALS: BP 128/75; PULSE 72; RESP 16; TEMP 36.4; O2SAT 100
[2022-08-04] MEDS: methADONE HCl 20 MG/2 ML ORAL.CONC 135 MG PO (10:29)
[2022-08-04] MEDS: Sodium Bicarbonate 8.4% 150 MEQ in Dextrose 5 % 850 ML 100 MEQ IV (10:54)
[2022-08-04 11:11] LABS: Appearance Urine Clear; Color Urine Yellow; Glucose Urine UA Negative (Negative); Leukocyte Esterase Urine Negative (Negative); Nitrite Urine Negative (Negative); Urine Blood Negative (Negative); Urine Ketones 40 mg/dL (Negative); Urine Protein Negative (Neg-Trace)
[2022-08-04 11:14] LABS: Amphetamine Screen Urine Not Detected (Not Detect); Barbiturates, Urine Not Detected (Not Detect); Benzodiazepines Screen Urine POSITIVE (Not Detect); Cannabinoid Screen Urine Not Detected (Not Detect); Cocaine Screen Urine POSITIVE (Not Detect); Fentanyl, urine POSITIVE (Not Detect); Opiate Screen Urine POSITIVE (Not Detect); Phencyclidine Screen Urine POSITIVE (Not Detect)
--- NOTE | 2022-08-04 11:21 | PHA.MEDREC ---
Pharmacy Consult ? Medication Reconciliation Pharmacy has completed the medication reconciliation. Patient confirmed her medications against the claim history but was unable to list them on her own. She did seem to know what it was that she is supposed to take.
--- NOTE | 2022-08-04 11:26 | P.HPHOSP_ITS ---
History of Present Illness Date of Service: 08/04/22 Chief Complaint: generalized aches and pains The patient is a 42 year old F with a history of intravenous drug use (last use on the day of admission -- cocaine/fentanyl/heroin) who presents to the ED with complaints of generalized aches and pains which have been on going for several days. The patient was in [facility] ED on 08/02/22 where she was evaluated for the same complaints. At that time, she was found to have changes of bilateral early cellulitis of the upper extremities. She decided to sign out against medical advice and per ED chart during this visit -- has been using since then. Pt is seen and examined in the ED around 11AM. Pharmacy staff is bedside. The patient is not really interested divulging much of a history. She endorses generalized malaise with diffuse muscle aches and pains. Reports the RUE appears to be more swollen than L. Denies any fevers or chills. Confirms active IVDU. Last methadone was 2 days ago. ED work up revealed rhabdo with CPK > 6000; Clinically exam has b/l UE erythema and edema (R>L). She has been given 3L IVF, IV clinda, IV toradol and methadone. SHe will be now be admitted for further care. Review of Systems Review of Systems: negative except HPI PMFSH Medical History Back pain Chronic post-traumatic stress disorder (PTSD) Leg pain, bilateral Opioid dependence Opioid use disorder, moderate, in sustained remission, dependence Rhabdomyolysis Substance abuse Substance abuse Social History Household Members: None Housing: Homeless Housing Other:: patient states she is homeless Do you presently have visiting nurse or other home services: No Unable to assess alcohol history related to: Refusing to respond Alcohol intake: former Patient Tobacco Use Status: Former Tobacco user Tobacco use type: Cigarette Cigarette Packs Per Day: 1 Cigarettes Per Day: 20.0 Years Smoked: 10+ Smoked in Last 30 Days: Yes e-Cigarette/Vaping Use: Former Use Second Hand Smoke Exposure: Yes Use of substances other than those prescribed or required for medical reasons: Yes Substance Use Type: Crack/Cocaine and Heroin Substance Use Frequency: Chronic Longstanding Last Used Substance: Hours (ago) Advance Directives: Yes Advance Directives on File: Yes Advance Directives Date on File: 12/28/20 service: No Current occupational status: disabled Sexual orientation: Did not discuss Meds Allergies Allergy/AdvReac Type Severity Reaction Status Date / Time quetiapine [From SEROQUEL] Allergy Severe THROAT Verified 04/01/22 10:03 SWELLING azithromycin [AZITHROMYCIN] Allergy Unknown Unknown Verified 04/01/22 10:03 erythromycin base Allergy Unknown RASH Verified 05/22/21 18:18 [ERYTHROMYCIN BASE] olanzapine [From ZYPREXA] Allergy Unknown PEDAL EDEMA Verified 05/22/21 18:18 sulfacetamide Allergy Unknown Unknown Verified 05/22/21 18:18 [From Sulfacet-R] sulfamethoxazole Allergy Unknown ITCHING Verified 05/22/21 18:18 [From BACTRIM] sulfur [From Sulfacet-R] Allergy Unknown Unknown Verified 05/22/21 18:18 trimethoprim [From BACTRIM] Allergy Unknown ITCHING Verified 05/22/21 18:18 risperidone [From RISPERDAL] AdvReac Unknown TWITCHING Verified 04/01/22 10:03 seafood AdvReac Unknown Vomiting Verified 05/22/21 18:18 shellfish derived AdvReac Unknown VOMITING Verified 04/01/22 10:03 [SHELLFISH DERIVED] trazodone AdvReac restless Verified 04/28/22 13:01 legs Active Medications: Current Medications Acetaminophen (Acetaminophen 325 Mg Tablet) 650 mg PO Q6H PRN PRN Reason: Pain, Mild (Pain Scale 1-3) Buspirone HCl (Buspirone Hcl 10 Mg Tablet) 30 mg PO TID EDER Clonazepam (Clonazepam 0.5 Mg Tablet) 0.5 mg PO BID PRN PRN Reason: Anxiety Cyanocobalamin (Cyanocobalamin (Vitamin B-12) 1,000 Mcg Tablet) 1,000 mcg PO DAILY EDER Cyclobenzaprine HCl (Cyclobenzaprine Hcl 10 Mg Tablet) 10 mg PO BID PRN PRN Reason: Muscle Spasm Enoxaparin Sodium (Enoxaparin Sodium 40 Mg/0.4 Ml Syringe) 40 mg SUBCUT Q24H S [facility] Sodium Bicarbonate 150 meq/ (Dextrose) 1,000 mls @ 100 mls/hr IV .Q10H [facility] Last Admin: 08/04/22 10:54 Dose: 100 mls/hr Lactated Ringer's (Lr) 1,000 mls @ 100 mls/hr IVCONT .Q10H ED[facility] Doxycycline Hyclate 100 mg/ (Sodium Chloride) 250 mls @ 166.67 mls/hr IV Q12H [facility] Ondansetron HCl (Ondansetron Hcl 4 Mg/2 Ml Vial) 4 mg IVPUSH Q8H PRN PRN Reason: Nausea and Vomiting Pharmacy Consult (Consult Rx Perform Med Rec) 1 each MISCELLANE ONCE PRN PRN Reason: Consult order Sodium Chloride (0.9 % Sodium Chloride Flush 3 Ml Syringe) 3 ml IVFLUSH QSHIFT [facility] Home Medications Medication Instructions Recorded Confirmed Last Taken Type buspirone 15 mg tablet 30 mg PO TID 06/16/22 08/04/22 Unknown History cyanocobalamin (vitamin B-12) 1,000 mcg PO DAILY 06/16/22 08/04/22 Unknown History 1,000 mcg tablet cyclobenzaprine 10 mg tablet 10 mg PO BID PRN Muscle Spasm 06/16/22 08/04/22 Unknown History loratadine 10 mg tablet 10 mg PO DAILY 06/16/22 08/04/22 Unknown History methadone 10 mg/mL oral 145 mg PO DAILY 06/16/22 08/04/22 06/11/22 10:35 History concentrate (Methadose) propranolol 10 mg tablet 10 mg PO BID 06/16/22 08/04/22 Unknown History acetaminophen 325 mg tablet 650 mg PO DAILY PRN Pain 08/04/22 08/04/22 Unknown History clonazepam 0.5 mg tablet 0.5 mg PO BID PRN Anxiety 08/04/22 08/04/22 08/02/22 History diclofenac potassium 50 mg tablet 50 mg PO BID 08/04/22 08/04/22 Unknown History duloxetine 30 mg capsule,delayed 30 mg PO DAILY 08/04/22 08/04/22 Unknown History release fluticasone propionate 50 1 spray intranasal BID 08/04/22 08/04/22 Unknown History mcg/actuation nasal spray,suspension gabapentin 800 mg tablet 800 mg PO TID 08/04/22 08/04/22 Unknown History hydroxyzine HCl 50 mg tablet 50 mg PO BID 08/04/22 08/04/22 Unknown History ketoconazole 2 % topical cream 1 applic topical BID PRN Rash 08/04/22 08/04/22 Unknown History methocarbamol 500 mg tablet 1,000 mg PO BID 08/04/22 08/04/22 Unknown History topiramate 50 mg tablet 50 mg PO BID 08/04/22 08/04/22 Unknown History zolpidem 5 mg tablet 5 mg PO BEDTIME PRN Sleep 08/04/22 08/04/22 Unknown History Physical Exam Vital Signs and Narrative: Vital Signs: Last Vital Signs Temp 97.5 F 08/04/22 10:08 Pulse 72 08/04/22 10:08 Resp 16 08/04/22 10:08 BP 128/75 08/04/22 10:08 Pulse Ox 100 08/04/22 10:08 O2 Del Method 08/04/22 10:08 BMI result Body Mass Index 28.4 Const: Other: Constitutional - Awake and Alert, No apparent distress Eyes - PERRLA, EOMI Cardiovascular - S1S2, RRR, No edema Respiratory - Normal lung expansion, Normal respiratory effort, No respiratory distress, CTA bilaterally Gastrointestinal - NT / ND; +BS; No rebound or guarding - No CVA tenderness Extremities - no calf tenderness bilaterally, no swelling Skin - b/l UE redness; R hand edema, able to make a fist; moving LE against gravity; does not allow back examination Neurological - Alert & oriented x3, No focal deficit Psychological - Appropriate affect Results Labs CBC and Chem 7: 08/04/22 07:40 08/04/22 07:40 Labs: Laboratory Results - last 24 hr 08/04/22 08/04/22 08/04/22 07:40 07:40 07:40 MCV 87.1 MCH 29.1 MCHC 33.4 RDW 12.7 Plt Count 114 L MPV 9.8 Immature Gran % (Auto) 0.5 H Neut % (Auto) 59.9 Lymph % (Auto) 30.0 Summers % (Auto) 7.2 Eos % (Auto) 1.7 Baso % (Auto) 0.7 Lymph # (Auto) 1.2 Summers # (Auto) 0.3 Eos # (Auto) 0.1 Baso # (Auto) 0.0 Abs Immat Gran (auto) 0.02 Absolute Neuts (auto) 2.5 Absolute Nucleated RBC 0.000 Nucleated RBC % (auto) 0.0 Anion Gap 16 Estim Creat Clear Calc 114.2 Estimated GFR > 60 Random Glucose 99 Lactic Acid 0.5 Calcium 9.4 Total Creatine Kinase 6163 H D C-Reactive Protein 0.27 Beta HCG, Quant Urine Color Urine Appearance Urine pH Ur Specific [place]im Urine Protein Urine Glucose (UA) Urine Ketones Urine Blood Urine Nitrite Ur Leukocyte Esterase Urine Opiates Screen Urine Fentanyl Screen Ur Barbiturates Screen Ur Phencyclidine Scrn Ur Amphetamines Screen U Benzodiazepines Scrn Urine Cocaine Screen U Marijuana (THC) Screen COVID-19 (ZACK) COVID-19 Clin Com 08/04/22 08/04/22 08/04/22 07:40 07:41 10:49 MCV MCH MCHC RDW Plt Count MPV Immature Gran % (Auto) Neut % (Auto) Lymph % (Auto) Summers % (Auto) Eos % (Auto) Baso % (Auto) Lymph # (Auto) Summers # (Auto) Eos # (Auto) Baso # (Auto) Abs Immat Gran (auto) Absolute Neuts (auto) Absolute Nucleated RBC Nucleated RBC % (auto) Anion Gap Estim Creat Clear Calc Estimated GFR Random Glucose Lactic Acid Calcium Total Creatine Kinase C-Reactive Protein Beta HCG, Quant < 2 Urine Color Yellow Urine Appearance Clear Urine pH 6.0 Ur Specific Ephraim 1.020 Urine Protein Negative Urine Glucose (UA) Negative Urine Ketones 40 Urine Blood Negative Urine Nitrite Negative Ur Leukocyte Esterase Negative Urine Opiates Screen Urine Fentanyl Screen Ur Barbiturates Screen Ur Phencyclidine Scrn Ur Amphetamines Screen U Benzodiazepines Scrn Urine Cocaine Screen U Marijuana (THC) Screen COVID-19 (ZACK) Negative COVID-19 Clin Com See Note 08/04/22 10:49 MCV MCH MCHC RDW Plt Count MPV Immature Gran % (Auto) Neut % (Auto) Lymph % (Auto) Summers % (Auto) Eos % (Auto) Baso % (Auto) Lymph # (Auto) Summers # (Auto) Eos # (Auto) Baso # (Auto) Abs Immat Gran (auto) Absolute Neuts (auto) Absolute Nucleated RBC Nucleated RBC % (auto) Anion Gap Estim Creat Clear Calc Estimated GFR Random Glucose Lactic Acid Calcium Total Creatine Kinase C-Reactive Protein Beta HCG, Quant Urine Color Urine Appearance Urine pH Ur Specific [place]im Urine Protein Urine Glucose (UA) Urine Ketones Urine Blood Urine Nitrite Ur Leukocyte Esterase Urine Opiates Screen POSITIVE H Urine Fentanyl Screen POSITIVE H Ur Barbiturates Screen Not Detected Ur Phencyclidine Scrn POSITIVE H Ur Amphetamines Screen Not Detected U Benzodiazepines Scrn POSITIVE H Urine Cocaine Screen POSITIVE H U Marijuana (THC) Screen Not Detected COVID-19 (ZACK) COVID-19 Clin Com Assessment and Plan (1) Rhabdomyolysis: Status: Acute Plan 42 yo F with a history of active IVDU presenting with generalized aches and pains. Presentation consistent with rhabdo and possible early cellulitis of the UE. 1. Rhabdo likely seocondary to cocaine use 3L NS given in the ED, will change to LR repeat chem and CPK with AM labs 2. Cellulitis R > L IV doxy no evidence of sepsis at this time 3. Polysusbtance abuse cessation has been encouraged continue methadone (check qtc -- last months EKG with slightly elevated qtc) 4. Mood continue her baseline meds Full Code DVT pptx, Lovenox Quality Stroke Does the patient have a stroke diagnosis?: No VTE Prior VTE?: No VTE Risk Level:: Medical - moderate - high VTE Device Contraindication: Treatment Not Indicated VTE Drug Contraindication: N/A - Med Ordered
[2022-08-04 11:27] LABS: Erythrocyte Sedimentation Rate 11 MM/HR (0-20)
[2022-08-04 11:43] LABS: Bacteria Urine None Seen (None Seen); RBC Urine 0-2 /HPF (0-2); Squamous Epithelial Cell Urine 0-2 /HPF (0-2); WBC Urine 0-5 /HPF (0-5)
[2022-08-04 11:44] LABS: Hyaline Casts Urine 0-2 /LPF (0-2)
[2022-08-04] MEDS: Doxycycline Hyclate 100 MG in 0.9 % Sodium Chloride 250 ML 166.67 MG IV ×2 (11:46→23:40)
[2022-08-04] MEDS: Lactated Ringers 1,000 ML 100 ML IVCONT ×2 (13:29→22:05)
[2022-08-04 14:42] VITALS: BMI 37.3
[2022-08-04 15:20] VITALS: BP 104/56; PULSE 62; RESP 18; TEMP 36.6; O2SAT 100
[2022-08-04] MEDS: Gabapentin 400 MG CAPSULE 800 MG PO ×2 (16:03→20:27)
[2022-08-04] MEDS: Cyclobenzaprine HCl 10 MG TABLET PO (16:03)
[2022-08-04] MEDS: clonazePAM 0.5 MG TABLET PO (16:03)
[2022-08-04] MEDS: Acetaminophen 325 MG TABLET 650 MG PO (16:03)
[2022-08-04] MEDS: busPIRone HCl 10 MG TABLET 30 MG PO ×2 (16:04→20:28)
--- NOTE | 2022-08-04 16:08 | MHC.CLN ---
NUTRITION CONSULT DUE TO SKIN REDNESS. CELLULITIS NOTED. DIET=REGULAR. NO ADDITIONAL NUTRITION INTERVENTIONS AT THIS TIME.
[2022-08-04 19:09] VITALS: BP 122/66; PULSE 67; RESP 18; TEMP 36.3; O2SAT 97
[2022-08-04] MEDS: Topiramate 25 MG TABLET 50 MG PO (20:28)
[2022-08-04] MEDS: Propranolol HCL 10 MG TABLET PO (20:28)
[2022-08-04] MEDS: hydrOXYzine HCL 50 MG TABLET PO (20:28)
[2022-08-05 07:46] VITALS: BP 139/83; PULSE 57; RESP 12; TEMP 35.9; O2SAT 96
[2022-08-05] MEDS: Propranolol HCL 10 MG TABLET PO ×2 (08:00→21:47)
[2022-08-05] MEDS: Loratadine 10 MG TABLET PO (08:00)
[2022-08-05] MEDS: busPIRone HCl 10 MG TABLET 30 MG PO ×3 (08:00→21:46)
[2022-08-05] MEDS: Gabapentin 400 MG CAPSULE 800 MG PO ×3 (08:00→21:47)
[2022-08-05] MEDS: Cyanocobalamin (Vitamin B-12) 1,000 MCG TABLET 1000 MCG PO (08:00)
[2022-08-05] MEDS: hydrOXYzine HCL 50 MG TABLET PO ×2 (08:00→21:47)
[2022-08-05] MEDS: Topiramate 25 MG TABLET 50 MG PO ×2 (08:00→21:47)
[2022-08-05] MEDS: DULoxetine HCl 30 MG CAPSULE.DR PO (08:00)
[2022-08-05] MEDS: Lactated Ringers 1,000 ML 100 ML IVCONT ×2 (08:00→21:45)
[2022-08-05] MEDS: Acetaminophen 325 MG TABLET 650 MG PO ×2 (08:00→15:48)
[2022-08-05 09:05] LABS: Anion Gap 14 (12-20); Blood Urea Nitrogen 11 mg/dL (9-16); Calcium 8.6 mg/dL (8.4-10.2); Carbon Dioxide 21 mmol/L (22-29); Chloride 114 mmol/L (96-108); Creatinine Clr Calc Pharmacy 139.4; Estimated Glomerular Filt Rate > 60; Glucose Random 106 mg/dL (60-115); Potassium 4.3 mmol/L (3.3-5.1); Sodium 145 mmol/L (135-145)
[2022-08-05] MEDS: methADONE HCl 20 MG/2 ML ORAL.CONC 135 MG PO (09:25)
[2022-08-05 09:45] LABS: Hematocrit 34.8 % (37.0-47.0); Hemoglobin 11.5 g/dl (12.0-16.0); Mean Corpuscular Hemoglobin 29.4 pg (27.0-33.0); Mean Platelet Volume 10.3 fL (9.4-12.3); Platelet Count 92 X10*3/uL (160-400); Red Blood Count 3.91 X10*6/uL (4.20-5.50); Red Cell Distribution Width 13.2 % (11.0-16.0); White Blood Count 2.4 X10*3/uL (4.8-10.8)
[2022-08-05] MEDS: clonazePAM 0.5 MG TABLET PO ×2 (11:55→21:47)
[2022-08-05] MEDS: Cyclobenzaprine HCl 10 MG TABLET PO (11:55)
[2022-08-05] MEDS: Doxycycline Hyclate 100 MG in 0.9 % Sodium Chloride 250 ML 166.67 MG IV (11:55)
[2022-08-05 11:57] VITALS: BP 126/67; PULSE 61; RESP 16; TEMP 36.9; O2SAT 96
--- NOTE | 2022-08-05 12:02 | MHC.CM.PN ---
PATIENT IS WELL KNOWN TO UNIT. CASE MANAGEMENT AVAILABLE FOR DC NEEDS IN THE EVENT SHE WERE TO REQUIRE STR NO DME OR VNA IN THE COMMUNITY. DOES RECEIVE HER METHADONE AT [facility] (PREVIOUSLY VERIFIED) AND WILL NEED LAST DOSE LETTER
--- NOTE | 2022-08-05 14:49 | P.PNIM_ITS ---
Subjective Subjective Date of Service: 08/05/22 Interval History: Rhabdomyolysis, drug use. Review of Systems still has muscle soreness denies any chest pain or shortness of breath or fever or chills or cough or phlegm. Physical Exam Vital Signs: Vital Signs: Last Vital Signs Temp 98.5 F 08/05/22 11:57 Pulse 61 08/05/22 11:57 Resp 16 08/05/22 11:57 BP 126/67 08/05/22 11:57 Pulse Ox 96 08/05/22 11:57 O2 Del Method 08/05/22 11:57 BMI result Body Mass Index 37.3 Appearance: Alert.? Oriented X3.? not in distress.? cvs: rrr, [id number] , no murmur res: clear to auscultation ,no rhonchii or wheezing abd: no rebound or guarding ,nt, bs present. ext pulses present , no cyanosis. neuro: axo3 , nonfocal. Objective Data Active Medications Acetaminophen (Acetaminophen 325 Mg Tablet) 650 mg PO Q6H PRN PRN Reason: Pain, Mild (Pain Scale 1-3) Last Admin: 08/05/22 08:00 Dose: 650 mg Documented By: ROBERT.COTEMA Buspirone HCl (Buspirone Hcl 10 Mg Tablet) 30 mg PO TID [facility] Last Admin: 08/05/22 08:00 Dose: 30 mg Documented By: COTEMA Clonazepam (Clonazepam 0.5 Mg Tablet) 0.5 mg PO BID PRN PRN Reason: Anxiety Last Admin: 08/05/22 11:55 Dose: 0.5 mg Documented By: COTEMA Clotrimazole (Clotrimazole 1 % Cream 15 Gm Tube) 1 appl TOPICAL BID PRN PRN Reason: Rash Cyanocobalamin (Cyanocobalamin (Vitamin B-12) 1,000 Mcg Tablet) 1,000 mcg PO DAILY [facility] Last Admin: 08/05/22 08:00 Dose: 1,000 mcg Documented By: ROBERT.COTEMA Cyclobenzaprine HCl (Cyclobenzaprine Hcl 10 Mg Tablet) 10 mg PO BID PRN PRN Reason: Muscle Spasm Last Admin: 08/05/22 11:55 Dose: 10 mg Documented By: COTEMA Duloxetine HCl (Duloxetine Hcl 30 Mg Capsule.) 30 mg PO DAILY [facility] Last Admin: 08/05/22 08:00 Dose: 30 mg Documented By: COTEMA Enoxaparin Sodium (Enoxaparin Sodium 40 Mg/0.4 Ml Syringe) 40 mg SUBCUT Q24H [facility] Last Admin: 08/05/22 10:58 Dose: Not Given Documented By: COTEMA Non-Admin Reason: Patient Refused Fluticasone Propionate (Fluticasone Propionate Nasal 16 Gm [place]) 1 spray NOSTRIL-B BID [facility] Last Admin: 08/05/22 09:19 Dose: Not Given Documented By: COTEMA Non-Admin Reason: Med Not Available Gabapentin (Gabapentin 400 Mg Capsule) 800 mg PO TID [facility] Last Admin: 08/05/22 08:00 Dose: 800 mg Documented By: COTEMA Hydroxyzine HCl (Hydroxyzine Hcl 50 Mg Tablet) 50 mg PO BID [facility] Last Admin: 08/05/22 08:00 Dose: 50 mg Documented By: COTEMA Lactated Ringer's (Lr) 1,000 mls @ 100 mls/hr IVCONT .Q10H [facility] Last Infusion: 08/05/22 12:44 Dose: 0 mls/hr Documented By: COTEMA Doxycycline Hyclate 100 mg/ (Sodium Chloride) 250 mls @ 166.67 mls/hr IV Q12H [facility] Last Infusion: 08/05/22 11:59 Dose: 0 mls/hr Documented By: COTEMA Loratadine (Loratadine 10 Mg Tablet) 10 mg PO DAILY [facility] Last Admin: 08/05/22 08:00 Dose: 10 mg Documented By: COTEMA Methadone HCl (Methadone Hcl 20 Mg/2 Ml Oral.Conc) 135 mg PO DAILY [facility] Last Admin: 08/05/22 09:25 Dose: 135 mg Documented By: COTEMA Ondansetron HCl (Ondansetron Hcl 4 Mg/2 Ml Vial) 4 mg IVPUSH Q8H PRN PRN Reason: Nausea and Vomiting Pharmacy Consult (Consult Rx Perform Med Rec) 1 each MISCELLANE ONCE PRN PRN Reason: Consult order Propranolol HCl (Propranolol Hcl 10 Mg Tablet) 10 mg PO BID [facility]; Protocol Last Admin: 08/05/22 08:00 Dose: 10 mg Documented By: COTEMA Sodium Chloride (0.9 % Sodium Chloride Flush 3 Ml Syringe) 3 ml IVFLUSH QSHIFT [facility] Last Admin: 08/05/22 07:12 Dose: Not Given Documented By: REA Non-Admin Reason: IV Running Topiramate (Topiramate 25 Mg Tablet) 50 mg PO BID [facility] Last Admin: 08/05/22 08:00 Dose: 50 mg Documented By: REA Zolpidem Tartrate (Zolpidem Tartrate 5 Mg Tablet) 5 mg PO BEDTIME PRN PRN Reason: Sleep Labs CBC & Chem 7: 08/05/22 09:00 08/05/22 08:10 Labs: Laboratory Results - last 24 hr 08/05/22 08/05/22 08/05/22 08:10 08:10 09:00 MCV 89.0 MCH 29.4 MCHC 33.0 RDW 13.2 Plt Count 92 L MPV 10.3 Absolute Nucleated RBC 0.000 Nucleated RBC % (auto) 0.0 Anion Gap 14 Estim Creat Clear Calc 139.4 Estimated GFR > 60 Random Glucose 106 Calcium 8.6 D Total Creatine Kinase 2193 H Cancelled Microbiology Microbiology Results: Microbiology 08/04/22 07:40 Blood Culture - Preliminary Blood - Venous No growth after 24 hours. 08/04/22 07:40 Blood Culture - Preliminary Blood - Venous No growth after 24 hours. Assessment and Plan (1) Rhabdomyolysis: Status: Acute (2) Cocaine use: Status: Acute (3) Leucopenia: Status: Acute (4) Thrombocytopenia: Status: Acute Plan 42 yo F with a history of active IVDU presenting with generalized aches and pains. Presentation consistent with rhabdo and possible early cellulitis of the UE. 1. Rhabdo-likely seocondary to cocaine use 3L NS given in the ED, will change to LR cpk improving in 1999' range repeat chem and CPK with AM labs in am 2. Cellulitis R > L IV doxy no evidence of sepsis at this time 3. Polysusbtance abuse cessation has been encouraged continue methadone (check qtc -443 ms). addiction consult 4. Mood continue her baseline meds Full Code DVT pptx, Lovenox ongoin hospitilisation needs :Rhabdo-likely seocondary to cocaine use-need iv hydration Quality Stroke Does the patient have a stroke diagnosis?: No VTE Prior VTE?: No VTE Risk Level:: Medical - moderate - high VTE Device Contraindication: Treatment Not Indicated VTE Drug Contraindication: N/A - Med Ordered
[2022-08-05 16:00] VITALS: BP 118/67; PULSE 67; RESP 16; TEMP 36.1; O2SAT 97
[2022-08-05 20:00] VITALS: BP 129/67; PULSE 62; RESP 16; TEMP 36.6; O2SAT 99
[2022-08-05 23:16] VITALS: BP 127/64; PULSE 56; RESP 18; TEMP 37; O2SAT 97
[2022-08-06] MEDS: Doxycycline Hyclate 100 MG in 0.9 % Sodium Chloride 250 ML 166.67 MG IV ×2 (00:26→11:23)
[2022-08-06] MEDS: 0.9 % Sodium Chloride Flush 3 ML SYRINGE IVFLUSH (00:26)
[2022-08-06 04:00] VITALS: RESP 18
[2022-08-06 07:36] VITALS: BP 143/81; PULSE 60; RESP 18; TEMP 36.2; O2SAT 99
[2022-08-06] MEDS: Propranolol HCL 10 MG TABLET PO (09:26)
[2022-08-06] MEDS: Topiramate 25 MG TABLET 50 MG PO (09:26)
[2022-08-06] MEDS: hydrOXYzine HCL 50 MG TABLET PO (09:26)
[2022-08-06 09:27] LABS: Anion Gap 14 (12-20); Blood Urea Nitrogen 7 mg/dL (9-16); Calcium 9.1 mg/dL (8.4-10.2); Carbon Dioxide 25 mmol/L (22-29); Chloride 107 mmol/L (96-108); Creatinine Clr Calc Pharmacy 137.2; Estimated Glomerular Filt Rate > 60; Glucose Random 105 mg/dL (60-115); Potassium 3.7 mmol/L (3.3-5.1); Sodium 142 mmol/L (135-145)
[2022-08-06] MEDS: Gabapentin 400 MG CAPSULE 800 MG PO (09:27)
[2022-08-06] MEDS: Cyanocobalamin (Vitamin B-12) 1,000 MCG TABLET 1000 MCG PO (09:27)
[2022-08-06] MEDS: DULoxetine HCl 30 MG CAPSULE.DR PO (09:27)
[2022-08-06] MEDS: busPIRone HCl 10 MG TABLET 30 MG PO (09:27)
[2022-08-06] MEDS: Loratadine 10 MG TABLET PO (09:27)
[2022-08-06] MEDS: methADONE HCl 20 MG/2 ML ORAL.CONC 135 MG PO (09:28)
--- NOTE | 2022-08-06 11:12 | MHC.RECOVRN ---
Met with pt in 376 after consult placed to Addiction Medicine. Pt reports having discharged from [facility] last week and was scheduled to go to [facility]. Pt states I didn't go because I just had a bad feeling about it. Pt reports using cocaine, IV, and heroin, IV, daily. Pt states 15 years ago I fell in love with coke. I just use bags to come down. Pt would like to get back into [facility] tx, would like to go to [facility]. [facility] has bed availability, pts referral has been sent. Denies questions or concerns at this time. RN and provider aware of pts desire for AT[facility].
[2022-08-06] MEDS: Cyclobenzaprine HCl 10 MG TABLET PO (11:20)
[2022-08-06] MEDS: clonazePAM 0.5 MG TABLET PO (11:21)
[2022-08-06 11:36] VITALS: BP 128/73; PULSE 68; RESP 18; TEMP 36.7; O2SAT 96
--- NOTE | 2022-08-06 12:18 | PM.EVENT ---
Event Note Date of Service: 08/06/22 Event Note: Addiction consult: Please see Recovery Support RN note
--- NOTE | 2022-08-06 12:27 | MHC.RECOVRN ---
Pt unable to go to [facility] due to being on administrative review for 3 months. [facility] does not have bed availabiliy. Pt informed, does not wish to expand bedsearch radius. Pt will follow up with [facility] for [place] outpatient. Pt would like to switch to [facility] in [place], referral sent. Last dose letter provided. Provider aware.
--- NOTE | 2022-08-06 13:25 | MHC.RECOVRN ---
Brought pt bus passes, pt anxious and ready to leave. Pt had reported symptoms of vaginitis, swab sent to lab. Pt does not want to stay for the results of the swab, would like to be called with the results. Since pt did not want to wait for results, RN had pt sign AMA paperwork. Pt escorted to lobby by t/w. Pt encouraged to call t/w if needed. Pt agreeable.
--- NOTE | 2022-08-06 16:04 | P.DS_ITS ---
DS: Providers Provider Date of Service: 08/06/22 Date of admission: 08/04/22 11:20 Primary care physician: Cici Corey MD Consults: 08/05/22 14:56 Addiction Medicine Routine Consulting Provider: Addiction Covering Reason for consultation: coacine use Has provider been notified: No DS: Diagnosis Discharge Diagnosis (1) Rhabdomyolysis: Status: Acute (2) Cocaine use: Status: Acute (3) Leucopenia: Status: Acute (4) Thrombocytopenia: Status: Acute DS: Summary Hospital Course Hospital Course: 42 year old F with a history of intravenous drug use (last use on the day of admission -- cocaine/fentanyl/heroin) who presents to the ED with complaints of generalized aches and pains which have been on going for several days. The [place] [facility] [place] where she was evaluated for the same complaints. At that time, she was found to have changes of bilateral early cellulitis of the upper extremities. She decided to sign out against medical advice and per ED chart during this visit -- has been using since then. Pt is seen and examined in the ED around 11AM. Pharmacy staff is bedside. The patient is not really interested divulging much of a history. She endorses generalized malaise with diffuse muscle aches and pains. Reports the RUE appears to be more swollen than L. Denies any fevers or chills. Confirms active IVDU. Last methadone was 2 days ago. ED work up revealed rhabdo with CPK > 6000; Clinically exam has b/l UE erythema and edema (R>L). She has been given 3L IVF, IV clinda, IV toradol and methadone. SHe will be now be admitted for further care. Hospital course: patient is leaving against medical advise- patient admitted for rhabdomyolysis possibly related to cocaine use. Hydrated and CPK seems to be improved also renal function is so far seems fine. patient was encouraged for p.o. hydration. in addition was seen by clinical informatics specialist and was information given but patient decided to leave against medical advice, does not even wait to see the MD. cellulitis- antibiotics sent to her pharmacy. Patient also expressed some vaginal itching- but since she left against medical advise did not had time to get testing done. Patient is to follow-up with PCP for further management. Time Spent with Patient Time attestation: Total time spent providing and/or coordinating discharge services: Discharge coordination time: Greater than 30 minutes Quality: Safe Use of Opioids Does Pt have an Active Cancer Diagnosis on the Problem List?: No Quality: Stroke Does the patient have a stroke diagnosis?: No Physical Exam Vital Signs: Vital Signs: Last Vital Signs Temp 98.0 F 08/06/22 11:36 Pulse 68 08/06/22 11:36 Resp 18 08/06/22 11:36 BP 128/73 08/06/22 11:36 Pulse Ox 96 08/06/22 11:36 O2 Del Method 08/06/22 11:36 BMI result Body Mass Index 37.3 Left against medical advise, did not wait for examination. DS: Data Data Completed and Pending Completed studies during hospitalization [Text1]: Procedures Drainage of Right Upper Arm Subcutaneous Tissue and Fascia, Open Approach (04/03/21) Insertion of Infusion Device into Left Basilic Vein, Percutaneous Approach (04/21/21) Insertion of Infusion Device into Left Brachial Vein, Percutaneous Approach (01/03/21) Labs on day of discharge: Laboratory Results - last 24 hr 08/06/22 08:34 Sodium 142 Potassium 3.7 Chloride 107 Carbon Dioxide 25 Anion Gap 14 BUN 7 L D Creatinine 0.64 Estim Creat Clear Calc 137.2 Estimated GFR > 60 Random Glucose 105 Calcium 9.1 Total Creatine Kinase 873 H D Preliminary micro results at discharge 08/04/22 07:40 Blood Culture - Preliminary Blood - Venous No growth after 48 hours. 08/04/22 07:40 Blood Culture - Preliminary Blood - Venous No growth after 48 hours. Additional Comments Additional comments: US/US venous duplex LE BI IMPRESSION: No DVT demonstrated in the bilateral lower extremity. Discharge Plan Discharge Patient Disposition: Left Against Medical Advice Discharge Diagnosis: rhabdomyolysis, cellulitis Referrals: Cici Corey MD [Primary Care Provider] - 1 Week Discharge Medications: New doxycycline hyclate 100 mg capsule 100 mg PO BID Qty: 14 0RF Continued methocarbamol 500 mg tablet 1,000 mg PO BID acetaminophen 325 mg tablet 650 mg PO DAILY PRN (Reason: Pain) clonazepam 0.5 mg tablet 0.5 mg PO BID PRN (Reason: Anxiety) hydroxyzine HCl 50 mg tablet 50 mg PO BID gabapentin 800 mg tablet 800 mg PO TID diclofenac potassium 50 mg tablet 50 mg PO BID zolpidem 5 mg tablet 5 mg PO BEDTIME PRN (Reason: Sleep) ketoconazole 2 % cream 1 applic topical BID PRN (Reason: Rash) fluticasone propionate 50 mcg/actuation spray,suspension 1 spray intranasal BID topiramate 50 mg tablet 50 mg PO BID duloxetine 30 mg capsule,delayed release(DR/EC) 30 mg PO DAILY cyclobenzaprine 10 mg tablet 10 mg PO BID PRN (Reason: Muscle Spasm) cyanocobalamin (vitamin B-12) 1,000 mcg tablet 1,000 mcg PO DAILY propranolol 10 mg tablet 10 mg PO BID loratadine 10 mg tablet 10 mg PO DAILY buspirone 15 mg tablet 30 mg PO TID methadone [Methadose] 10 mg/mL concentrate 135 mg PO DAILY Rx Instructions: Partial Fill upon patient request. Discharge Orders: Discharge Order (Routine); Ordered 08/06/22 Ordered By: Poli Deshpande Care Plan Goals: patient is leaving against medical advise- patient admitted for rhabdomyolysis possibly related to cocaine use. Hydrated and CPK seems to be improved also renal function is so far seems fine. patient was encouraged for p.o. hydration. in addition was seen by clinical informatics specialist and was information given but patient decided to leave against medical advice, does not even wait to see the MD. cellulitis- antibiotics sent to her pharmacy. Patient also expressed some vaginal itching- but since she left against medical advise did not had time to get testing done. Patient is to follow-up with PCP for further management. Health Concerns: as above. Plan of Treatment: As above. Assessment: As above. Discharge Date/Time: 08/06/22 13:05
[2022-08-07 10:16] LABS: BV Int Neg Control Negative (Negative); BV Int Pos Control Positive (Positive)
== END 2022-08-06 13:05 | disposition left against medical advice (07) | DRG 816 ==
LOC: HO.ED 09:56 → HO.EDOVER 12:50 → HO.S3 13:31
PROVIDERS: Admitting Provider Family Medicine; Emergency Provider Emergency Medicine Emergency Medical Services; PCP Internal Medicine; Visit Provider Internal Medicine
DX: T40.5X1A Poisoning by cocaine, accidental (unintentional), initial encounter (principal); D69.6 Thrombocytopenia, unspecified; M62.82 Rhabdomyolysis; D72.819 Decreased white blood cell count, unspecified; F11.20 Opioid dependence, uncomplicated; L03.114 Cellulitis of left upper limb; L03.113 Cellulitis of right upper limb; F43.12 Post-traumatic stress disorder, chronic; F14.10 Cocaine abuse, uncomplicated; Z20.822 Contact with and (suspected) exposure to COVID-19; Z91.14 Patient's other noncompliance with medication regimen; Z59.02 Unsheltered homelessness; Z87.891 Personal history of nicotine dependence; Z91.013 Allergy to seafood; Z88.2 Allergy status to sulfonamides; Z79.51 Long term (current) use of inhaled steroids; Z79.899 Other long term (current) drug therapy
CPT/HCPCS: 36415; 80048; 80307; 81001; 82550; 83605; 84702; 85025; 85027; 85652; 86140; 87040; 87480; 87510; 87635; 87660; 93005; 99285; J1885

== ENCOUNTER 2022-08-07 09:43 | Inpatient (IN) | payer OTHER, SELFPAY ==
--- NOTE | ~2022-08-07 | XR_ITS ---
EXAMINATION: XR HAND, RIGHT CLINICAL INFORMATION: Right hand swelling. History of IV drug use COMPARISON: Right hand radiographs 06/24/2022 TECHNIQUE: PA, lateral, and oblique views of the right hand. FINDINGS: No acute fracture or dislocation. No osseous destructive change or periostitis. Pronounced dorsal soft tissue swelling about the wrist and hand. No tracking soft tissue gas. No radiodense foreign body. The joint spaces throughout the hand and wrist are maintained. Small osteophytes the thumb IP joint consistent with mild degenerative change. XR/XR hand RT 2V IMPRESSION: 1. No acute osseous injury or radiographic evidence of advanced osteomyelitis. 2. Pronounced dorsal soft tissue swelling about the wrist and hand. No radiodense foreign body or tracking soft tissue gas.
[2022-08-07 09:46] VITALS: BP 142/89; PULSE 100; RESP 18; TEMP 36.4; O2SAT 95; BMI 30.7
--- NOTE | 2022-08-07 16:04 | ECG_ITS ---
Test Reason : OVERDOSE Blood Pressure : / mmHG Vent. Rate : 070 BPM Atrial Rate : 070 BPM P-R Int : 168 ms QRS Dur : 094 ms QT Int : 454 ms P-R-T Axes : 075 034 056 degrees QTc Int : 490 ms Normal sinus rhythm T wave abnormality, consider anterior ischemia Prolonged QT Abnormal ECG When compared with ECG of 04-AUG-2022 11:53, Left posterior fascicular block is no longer Present Nonspecific T wave abnormality, improved in Inferior leads T wave inversion more evident in Anterior leads Referred By: Dalila Parr Electronically Signed By:NAE ROJO MD
--- NOTE | 2022-08-07 16:10 | ED_ITS ---
HPI - General Adult General Chief complaint: General Medical Stated complaint: r hand infection requesting detox Time Seen by Provider: 08/07/22 15:50 Source: patient Mode of arrival: ambulatory Limitations: no limitations History of Present Illness HPI narrative: Patient comes to the emergency room complaining of right hand worsening cellulitis. Patient was seen here yesterday for diffuse body aches, admitted f or rhabdomyolysis secondary to cocaine use. Patient left against medical advice from the floor. Patient admits that after leaving the hospital she injected in her right hand and is not sure if she missed the vein. Patient complaining of worsening pain in the dorsum of her hand and swelling. Patient is agreeable to stay throughout the hospitalization. Related Data Home Medications Medication Instructions Recorded Confirmed buspirone 15 mg tablet 30 mg PO TID 06/16/22 08/04/22 cyanocobalamin (vitamin B-12) 1,000 mcg PO DAILY 06/16/22 08/04/22 1,000 mcg tablet cyclobenzaprine 10 mg tablet 10 mg PO BID PRN Muscle Spasm 06/16/22 08/04/22 loratadine 10 mg tablet 10 mg PO DAILY 06/16/22 08/04/22 methadone 10 mg/mL oral 135 mg PO DAILY 06/16/22 08/05/22 concentrate (Methadose) propranolol 10 mg tablet 10 mg PO BID 06/16/22 08/04/22 acetaminophen 325 mg tablet 650 mg PO DAILY PRN Pain 08/04/22 08/04/22 clonazepam 0.5 mg tablet 0.5 mg PO BID PRN Anxiety 08/04/22 08/04/22 diclofenac potassium 50 mg tablet 50 mg PO BID 08/04/22 08/04/22 duloxetine 30 mg capsule,delayed 30 mg PO DAILY 08/04/22 08/04/22 release fluticasone propionate 50 1 spray intranasal BID 08/04/22 08/04/22 mcg/actuation nasal spray,suspension gabapentin 800 mg tablet 800 mg PO TID 08/04/22 08/04/22 hydroxyzine HCl 50 mg tablet 50 mg PO BID 08/04/22 08/04/22 ketoconazole 2 % topical cream 1 applic topical BID PRN Rash 08/04/22 08/04/22 methocarbamol 500 mg tablet 1,000 mg PO BID 08/04/22 08/04/22 topiramate 50 mg tablet 50 mg PO BID 08/04/22 08/04/22 zolpidem 5 mg tablet 5 mg PO BEDTIME PRN Sleep 08/04/22 08/04/22 Allergies Allergy/AdvReac Type Severity Reaction Status Date / Time quetiapine [From SEROQUEL] Allergy Severe THROAT Verified 04/01/22 10:03 SWELLING azithromycin [AZITHROMYCIN] Allergy Unknown Unknown Verified 04/01/22 10:03 erythromycin base Allergy Unknown RASH Verified 05/22/21 18:18 [ERYTHROMYCIN BASE] olanzapine [From ZYPREXA] Allergy Unknown PEDAL EDEMA Verified 05/22/21 18:18 sulfacetamide Allergy Unknown Unknown Verified 05/22/21 18:18 [From Sulfacet-R] sulfamethoxazole Allergy Unknown ITCHING Verified 05/22/21 18:18 [From BACTRIM] sulfur [From Sulfacet-R] Allergy Unknown Unknown Verified 05/22/21 18:18 trimethoprim [From BACTRIM] Allergy Unknown ITCHING Verified 05/22/21 18:18 risperidone [From RISPERDAL] AdvReac Unknown TWITCHING Verified 04/01/22 10:03 seafood AdvReac Unknown Vomiting Verified 05/22/21 18:18 shellfish derived AdvReac Unknown VOMITING Verified 04/01/22 10:03 [SHELLFISH DERIVED] trazodone AdvReac restless Verified 04/28/22 13:01 legs Review of Systems Review of Systems: Constitutional : No Weight loss, No Fever, No Chills, No Night Sweats, No Fatigue, No Malaise ENT/Mouth : No Hearing loss, No Ear Pain, No Nasal Congestion, No Sinus Pain, No Hoarseness, No sore throat, No Rhinorrhea, No Swallowing Difficulty Eyes: No Eye Pain, No Swelling, No Redness, No Foreign Body, No Discharge, No Vision Changes Cardiovascular : No Chest Pain, No SOB, No Dyspnea on Exertion, No Orthopnea, No Edema, No Palpitations Respiratory : No Cough, No Sputum, No Wheezing, No Smoke Exposure, No Dyspnea Gastrointestinal : No Nausea, No Vomiting, No Diarrhea, No Constipation, No abdominal Pain, No Hematochezia, No Melena Genitourinary : no irregular bleeding, No Dysuria, No Urinary Frequency, No Hematuria, No Urinary Incontinence, No Urgency, No Flank Pain, No Urinary Flow Changes, No Hesitancy Musculoskeletal : No joint pain, No Myalgias, No Joint Swelling Skin : Complaining of worsening erythema and swelling in the dorsum of the right hand, admits to IV drug use Neuro : No Weakness, No Numbness, No Paresthesias, No Loss of Consciousness, No Dizziness, No Headache Psych : No Anxiety/Panic, No Depression, No SI/HI/AH/VH, No Social Issues, Heme/Lymph: No Bruising, No Bleeding,No Lymphadenopathy Endocrine : No Polyuria, No Polydipsia, No Temperature Intolerance PMF Past Medical History Medical History Back pain Chronic post-traumatic stress disorder (PTSD) Leg pain, bilateral Opioid dependence Opioid use disorder, moderate, in sustained remission, dependence Rhabdomyolysis Substance abuse Substance abuse Social History Social History Household Members: Family Housing: House Housing Other:: patient states she is homeless Do you presently have visiting nurse or other home services: No Unable to assess alcohol history related to: Refusing to respond Alcohol intake: former Patient Tobacco Use Status: Former Tobacco user Quit Date: 07/22/22 Tobacco use type: Cigarette Cigarette Packs Per Day: 1 Cigarettes Per Day: 20.0 Years Smoked: 10 Smoked in Last 30 Days: Yes e-Cigarette/Vaping Use: Former Use Second Hand Smoke Exposure: Yes Use of substances other than those prescribed or required for medical reasons: Yes Substance Use Type: Heroin Advance Directives: Yes Advance Directives on File: Yes Advance Directives Date on File: 12/28/20 service: No Current occupational status: disabled Sexual orientation: Did not discuss Physical Exam ED Vital Signs: Vital Signs - 24 hr 08/07/22 09:46 08/07/22 16:42 Temperature 97.5 F 97.2 F Pulse Rate 100 74 Respiratory Rate 18 18 Blood Pressure 142/89 H 133/75 Pulse Oximetry 95 97 Oxygen Delivery Method Room Air Room Air BMI result Body Mass Index 30.7 Const Other: Appearance: Alert. Oriented X3. No acute distress. Eyes: Pupils equal, round and reactive to light. ENT: Pharynx normal. Neck: Normal inspection. Neck supple. No lymph nodes noted. No crepitus CVS: Normal heart rate and rhythm. Pulses normal. Normal S1 and S2 Respiratory: No respiratory distress. Breath sounds normal. No Wheezing. No rales Abdomen: Soft and nontender. No rigidity. No distention. Skin: Skin warm and dry. Normal skin color. Normal skin turgor. Erythema in the dorsum and rest of the right hand, dorsum of the hand, moderate swelling, tender to palpation Extremities: No lower extremity edema. No Lacerations. No Rash. Patient is able to flex and extend all fingers of her hand, tenosynovitis not suspected. Neuro: Oriented X 3. No motor deficit. No sensory deficit. Moving all extremities. No slurred speech. CN 2 through 12 grossly intact Psych: calm, cooperative, normal affect Course Course Course Narrative: Patient's labs have been reordered. Unfortunately, patient is known to leave against medical advice, especially when nurses or providers have a hard time inserting an IV. Patient has significant scar tissue. So far, patient is agreeable to stay in the hospital. Sepsis is not suspected. Patient was given IV Zosyn and vancomycin. Patient agreeable to stay. I discussed the patient with Dr. Burrell Medications Administered Discontinued Medications Generic Name Dose Route Start Last Admin Trade Name Freq PRN Reason Stop Dose Admin Acetaminophen 975 mg 08/07/22 16:04 08/07/22 16:36 Acetaminophen 325 Mg Tablet PO 08/07/22 16:05 975 mg ONCE ONE Administration Sodium Chloride 1,000 mls @ 999 mls/hr 08/07/22 16:04 08/07/22 17:02 Ns IVCONT 08/07/22 17:04 999 mls/hr .Q1H1M ONE Administration Piperacillin Sod/Tazobactam 50 mls @ 100 mls/hr 08/07/22 16:04 08/07/22 19:27 Sod 3.375 gm/ Sodium Chloride IV 08/07/22 16:33 Infused ONCE ONE Infusion Vancomycin HCl 2,000 mg in 520 mls @ 260 mls/hr 08/07/22 16:04 08/07/22 19:27 Vancomycin/Ns IV 08/07/22 18:03 260 mls/hr ONCE ONE Administration Medical Decision Making Lab Data Result diagrams: 08/07/22 16:59 Labs: Lab Results 08/07/22 08/07/22 08/07/22 Range/Units 16:59 16:59 16:59 WBC 4.4 L (4.8-10.8) X10*3/uL RBC 4.31 (4.20-5.50) X10*6/uL Hgb 12.8 (12.0-16.0) g/dl Hct 37.9 (37.0-47.0) % MCV 87.9 (80.0-98.0) fL MCH 29.7 (27.0-33.0) pg MCHC 33.8 (31.0-35.0) g/dl RDW 12.9 (11.0-16.0) % Plt Count 115 L (160-400) X10*3/uL MPV 10.4 (9.4-12.3) fL Immature Gran % (Auto) 0.5 H (0.0-0.4) % Neut % (Auto) 44.2 L (45-73) % Lymph % (Auto) 47.0 H (20-40) % [place] % (Auto) 5.5 (2-11) % Eos % (Auto) 2.3 (0-4) % Baso % (Auto) 0.5 (0-2) % Lymph # (Auto) 2.1 (1.2-4.9) X10*3/uL [place] # (Auto) 0.2 (0.1-1.2) X10*3/uL Eos # (Auto) 0.1 (0.0-0.4) X10*3/uL Baso # (Auto) 0.0 (0.0-0.2) X10*3/uL Abs Immat Gran (auto) 0.02 (0.00-0.03) X10*3/uL Absolute Neuts (auto) 1.9 L (2.0-8.3) x10*3/uL Absolute Nucleated RBC 0.000 (0.0-0.012) X10*3/uL Nucleated RBC % (auto) 0.0 (0.0-0.2) /100WBC Smear Tech's Comments VERIFIED Lactic Acid 0.6 (0.5-2.0) mmol/L COVID-19 (ZACK) Negative (Negative) COVID-19 Clin Com See Note Discharge Plan Discharge Clinical Impression: Cellulitis of finger of right hand Patient Disposition: Admitted As Inpatient Prescriptions: No Action methocarbamol 500 mg tablet 1,000 mg PO BID acetaminophen 325 mg tablet 650 mg PO DAILY PRN (Reason: Pain) clonazepam 0.5 mg tablet 0.5 mg PO BID PRN (Reason: Anxiety) hydroxyzine HCl 50 mg tablet 50 mg PO BID gabapentin 800 mg tablet 800 mg PO TID diclofenac potassium 50 mg tablet 50 mg PO BID zolpidem 5 mg tablet 5 mg PO BEDTIME PRN (Reason: Sleep) ketoconazole 2 % cream 1 applic topical BID PRN (Reason: Rash) fluticasone propionate 50 mcg/actuation spray,suspension 1 spray intranasal BID topiramate 50 mg tablet 50 mg PO BID duloxetine 30 mg capsule,delayed release(DR/EC) 30 mg PO DAILY cyclobenzaprine 10 mg tablet 10 mg PO BID PRN (Reason: Muscle Spasm) cyanocobalamin (vitamin B-12) 1,000 mcg tablet 1,000 mcg PO DAILY propranolol 10 mg tablet 10 mg PO BID loratadine 10 mg tablet 10 mg PO DAILY buspirone 15 mg tablet 30 mg PO TID methadone [Methadose] 10 mg/mL concentrate 135 mg PO DAILY Rx Instructions: Partial Fill upon patient request.
[2022-08-07] MEDS: Acetaminophen 325 MG TABLET 975 MG PO (16:36)
[2022-08-07 16:42] VITALS: BP 133/75; PULSE 74; RESP 18; TEMP 36.2; O2SAT 97
[2022-08-07] MEDS: 0.9 % Sodium Chloride 1,000 ML 999 ML IVCONT (17:02)
[2022-08-07] MEDS: Piperacillin Sodium/Tazobactam 3.375 GM in 0.9 % Sodium Chloride 50 ML IV (17:07)
[2022-08-07 17:16] LABS: Imm Gran Abs Auto 0.02 X10*3/uL (0.00-0.03); Imm Gran Pct Auto 0.5 % (0.0-0.4); MANUAL DIFF FLAG SCAN; Mean Platelet Volume 10.4 fL (9.4-12.3); PLT CLUMP 1; Red Cell Distribution Width 12.9 % (11.0-16.0); SCAN SMEAR FLAG 1
[2022-08-07 17:18] LABS: Basophils Percent Auto 0.5 % (0-2); Eosinophils Absolute Auto 0.1 X10*3/uL (0.0-0.4); Eosinophils Percent Auto 2.3 % (0-4); Hematocrit 37.9 % (37.0-47.0); Hemoglobin 12.8 g/dl (12.0-16.0); Lymphocytes Absolute Auto 2.1 X10*3/uL (1.2-4.9); Mean Corpuscular HGB Conc 33.8 g/dl (31.0-35.0); Mean Corpuscular Hemoglobin 29.7 pg (27.0-33.0); Mean Corpuscular Volume 87.9 fL (80.0-98.0); Monocytes Absolute Auto 0.2 X10*3/uL (0.1-1.2); Monocytes Percent Auto 5.5 % (2-11); Neutrophils Absolute Auto 1.9 x10*3/uL (2.0-8.3); Neutrophils Percent Auto 44.2 % (45-73); Red Blood Count 4.31 X10*6/uL (4.20-5.50)
[2022-08-07 17:23] LABS: Lactic Acid 0.6 mmol/L (0.5-2.0)
[2022-08-07 17:29] LABS: White Blood Count 4.4 X10*3/uL (4.8-10.8)
[2022-08-07 17:32] LABS: COVID-19 Test Negative (Negative); IDNOW Serial# 9DB6401D
[2022-08-07 17:52] LABS: Platelet Count 115 X10*3/uL (160-400)
[2022-08-07 17:53] LABS: SLIDE REVIEW VERIFIED
--- NOTE | 2022-08-07 18:43 | PC.NURSE ---
This PCT attempted to redraw patient. Patient refused redraw. APOLONIA weinberg.
[2022-08-07 19:36] VITALS: BP 120/56; PULSE 72; RESP 15; TEMP 36.7; O2SAT 97
--- NOTE | 2022-08-07 19:56 | PHA.PROG ---
Admission Date/Time: Indication: Weight in k.183 kg Adjusted body weight in K.053 [place] body weight in K.3 Obesity Dosing Indication % IBW:30.7 Vancomycin Loading Dose: 2000 MG Current Vancomycin Dosing Regimen:1000 MG Q12 Vancomycin Monitoring using AUC goal of 400 - 600 range with trough as surrogate marker: Expected auc of 456 after 3rd dose. SCR still not drawn as of 08/07 at 2001. Using SCr from visit on 08/06 and will continue to monitor and reassess. Date and Time for next Vancomycin Level to be drawn: 08/09/22 @ 0600 Pharmacist Comments on Vancomycin Plan: Used obese dosing model to calculate auc and dosing Vancomycin dosing will take advantage of [email or web address] as a clinical decision support tool that uses Bayesian modeling to calculate individual patient's pharmacokinetic parameters and forecast the patient's drug concentration time course with the target goal AUC 24 range of 400 - 600 mg/L/hr.
--- NOTE | 2022-08-07 20:03 | PC.NURSE ---
PATIENT REFUSED BLOOD WORK AT 19:50
--- NOTE | 2022-08-07 20:47 | P.HPHOSP_ITS ---
History of Present Illness Date of Service: 08/07/22 Chief Complaint: Right hand swelling This is a 42-year-old female with pertinent history of IV drug use disorder, mood disorder who presents to the emergency department for evaluation of right hand swelling. Patient was admitted on 08/04 with rhabdomyolysis secondary to cocaine use and cellulitis requiring IV antibiotics but patient left against medical advice on 08/06. Patient states her right hand swelling, redness was improving with IV antibiotics. She left AMA and tried to inject cocaine in her right hand. Since then, she has been having increasing right hand pain, swelling and tenderness. Patient states the swelling has been getting progressively worse with redness. Mild difficulty forming a fist . Does have associated subjective fevers and chills. Also endorses nausea. no discharge from the hand. Patient denies chest discomfort, palpitations, shortness of breath, changes in urinary or bowel habits In the ER, Right hand cellulitis noted. Review of Systems Constitutional: Constitutional: Reports chills and Reports malaise Cardiovascular: Cardiovascular: Reports no additional cardiovascular complaints Respiratory: Respiratory: Reports no additional respiratory complaints Gastrointestinal: Gastrointestinal: Reports no additional gastrointestinal complaints Genitourinary: Genitourinary: Reports no additional female genitourinary complaints Musculoskeletal: Comments: right hand swelling PMFSH Medical History Back pain Chronic post-traumatic stress disorder (PTSD) Leg pain, bilateral Opioid dependence Opioid use disorder, moderate, in sustained remission, dependence Rhabdomyolysis Substance abuse Substance abuse Social History Household Members: Family Housing: House Housing Other:: patient states she is homeless Do you presently have visiting nurse or other home services: No Unable to assess alcohol history related to: Refusing to respond Alcohol intake: former Patient Tobacco Use Status: Former Tobacco user Quit Date: 07/22/22 Tobacco use type: Cigarette Cigarette Packs Per Day: 1 Cigarettes Per Day: 20.0 Years Smoked: 10 Smoked in Last 30 Days: Yes e-Cigarette/Vaping Use: Former Use Second Hand Smoke Exposure: Yes Use of substances other than those prescribed or required for medical reasons: Yes Substance Use Type: Heroin Advance Directives: Yes Advance Directives on File: Yes Advance Directives Date on File: 12/28/20 service: No Current occupational status: disabled Sexual orientation: Did not discuss Meds Allergies Allergy/AdvReac Type Severity Reaction Status Date / Time quetiapine [From SEROQUEL] Allergy Severe THROAT Verified 04/01/22 10:03 SWELLING azithromycin [AZITHROMYCIN] Allergy Unknown Unknown Verified 04/01/22 10:03 erythromycin base Allergy Unknown RASH Verified 05/22/21 18:18 [ERYTHROMYCIN BASE] olanzapine [From ZYPREXA] Allergy Unknown PEDAL EDEMA Verified 05/22/21 18:18 sulfacetamide Allergy Unknown Unknown Verified 05/22/21 18:18 [From Sulfacet-R] sulfamethoxazole Allergy Unknown ITCHING Verified 05/22/21 18:18 [From BACTRIM] sulfur [From Sulfacet-R] Allergy Unknown Unknown Verified 05/22/21 18:18 trimethoprim [From BACTRIM] Allergy Unknown ITCHING Verified 05/22/21 18:18 risperidone [From RISPERDAL] AdvReac Unknown TWITCHING Verified 04/01/22 10:03 seafood AdvReac Unknown Vomiting Verified 05/22/21 18:18 shellfish derived AdvReac Unknown VOMITING Verified 04/01/22 10:03 [SHELLFISH DERIVED] trazodone AdvReac restless Verified 04/28/22 13:01 legs Active Medications: Current Medications Vancomycin HCl 1,000 mg/ (Sodium Chloride) 270 mls @ 270 mls/hr IV Q12H [facility] Pharmacy Consult (Consult Rx Vancomycin Dosing) 1 each MISCELLANE DAILY PRN PRN Reason: Consult order Pharmacy Consult (Consult Rx Vancomycin Dosing) 1 each MISCELLANE DAILY PRN PRN Reason: Consult order Home Medications Medication Instructions Recorded Confirmed Last Taken Type cyanocobalamin (vitamin B-12) 1,000 mcg PO DAILY 06/16/22 08/04/22 Unknown History 1,000 mcg tablet cyclobenzaprine 10 mg tablet 10 mg PO BID PRN Muscle Spasm 06/16/22 08/04/22 Unknown History loratadine 10 mg tablet 10 mg PO DAILY 06/16/22 08/04/22 Unknown History methadone 10 mg/mL oral 135 mg PO DAILY 06/16/22 08/05/22 06/11/22 10:35 History concentrate (Methadose) propranolol 10 mg tablet 10 mg PO BID 06/16/22 08/04/22 Unknown History acetaminophen 325 mg tablet 650 mg PO DAILY PRN Pain 08/04/22 08/04/22 Unknown History clonazepam 0.5 mg tablet 0.5 mg PO BID PRN Anxiety 08/04/22 08/04/22 08/02/22 History diclofenac potassium 50 mg tablet 50 mg PO BID 08/04/22 08/04/22 Unknown History duloxetine 30 mg capsule,delayed 30 mg PO DAILY 08/04/22 08/04/22 Unknown History release fluticasone propionate 50 1 spray intranasal BID 08/04/22 08/04/22 Unknown History mcg/actuation nasal spray,suspension gabapentin 800 mg tablet 800 mg PO TID 08/04/22 08/04/22 Unknown History hydroxyzine HCl 50 mg tablet 50 mg PO BID 08/04/22 08/04/22 Unknown History ketoconazole 2 % topical cream 1 applic topical BID PRN Rash 08/04/22 08/04/22 Unknown History methocarbamol 500 mg tablet 1,000 mg PO BID 08/04/22 08/04/22 Unknown History topiramate 50 mg tablet 50 mg PO BID 08/04/22 08/04/22 Unknown History zolpidem 5 mg tablet 5 mg PO BEDTIME PRN Sleep 08/04/22 08/04/22 Unknown History buspirone 10 mg tablet 2 tab PO TID 08/07/22 Unknown History cephalexin 500 mg capsule 1 cap PO QID 08/07/22 Unknown History doxycycline hyclate 100 mg tablet 1 tab PO BID 08/07/22 Unknown History hydroxyzine HCl 25 mg tablet 1 tab PO BID 08/07/22 Unknown History metronidazole 500 mg tablet 1 tab PO DAILY 08/07/22 08/07/22 Unknown History Physical Exam Vital Signs and Narrative: Vital Signs: Last Vital Signs Temp 98.1 F 08/07/22 19:36 Pulse 72 08/07/22 19:36 Resp 15 08/07/22 19:36 BP 120/56 L 08/07/22 19:36 Pulse Ox 97 08/07/22 19:36 O2 Del Method 08/07/22 19:36 BMI result Body Mass Index 30.7 Middle-aged female lying in bed in no distress Neck supple, no JVD Regular rate and rhythm, S1-S2 heard Regular breath sounds bilaterally, no wheezing or crackles appreciated Abdomen soft nontender, no guarding, no rigidity Patient is awake, alert and oriented to self, place, time and person ; no focal motor deficit Msk: Multiple IV track delgado seen ; right hand with swelling, and tenderness, no induration Psych: Normal mood No pedal edema Results Labs CBC and Chem 7: 08/07/22 16:59 Labs: Laboratory Results - last 24 hr 08/07/22 08/07/22 08/07/22 16:59 16:59 16:59 MCV 87.9 MCH 29.7 MCHC 33.8 RDW 12.9 Plt Count 115 L MPV 10.4 Immature Gran % (Auto) 0.5 H Neut % (Auto) 44.2 L Lymph % (Auto) 47.0 H Waldo % (Auto) 5.5 Eos % (Auto) 2.3 Baso % (Auto) 0.5 Lymph # (Auto) 2.1 Waldo # (Auto) 0.2 Eos # (Auto) 0.1 Baso # (Auto) 0.0 Abs Immat Gran (auto) 0.02 Absolute Neuts (auto) 1.9 L Absolute Nucleated RBC 0.000 Nucleated RBC % (auto) 0.0 Smear Tech's Comments VERIFIED Lactic Acid 0.6 COVID-19 (ZACK) Negative COVID-19 Clin Com See Note Assessment and Plan (1) Cellulitis of finger of right hand: Status: Acute (2) Cocaine use: Status: Acute (3) Polysubstance use disorder: Status: Acute (4) Bipolar 1 disorder: Status: Acute Plan This is a 42-year-old female with pertinent history of IV drug use disorder, mood disorder who presents to the emergency department for evaluation of right hand swelling. #. Right hand cellulitis -extensive swelling and erythema hence need for IV antibiotics. Also risk of outpatient non complicance and failure. Initating IV vancomycin. Monitor for improvement. Obtaining hand xray #. Polysubstance use disorder -agreed to using cocaine. Previously used heroin. Continue methadone. CARE team and addiction team consulted. #. Mood disorder -continue baseline meds #. Recent admission for rhabdo due to cocaine -CK ordered but pt refused. Resuscitated with IV fluids in the ER. Check CK in am Med rec pending DVT prophylaxis: Lovenox 40 mg daily Full code Regular diet Admit as inpatient and will require two night minimum hospital stay for IV antibiotics Quality Stroke Does the patient have a stroke diagnosis?: No VTE Prior VTE?: No VTE Risk Level:: Medical - moderate - high VTE Device Contraindication: Treatment Not Indicated VTE Drug Contraindication: N/A - Med Ordered
--- NOTE | 2022-08-07 21:21 | PC.NURSE ---
refused labs rn aware.
--- NOTE | 2022-08-07 21:43 | PHA.MEDREC ---
Pharmacy Consult ? Medication Reconciliation Pharmacy has completed the medication reconciliation. Pt recently discharged yesterday 08/06, unwilling to go over medication list. Used history from last stay with claim history. Pt did note that she got her methadone 145mg from [facility] today and noted it was a dose increase from 135mg and that she had a form on her. I contacted her ER nurse to ask them to fax a copy up to us, and I let her know that if she does not have the form we would need a methadone verification form for the morning.
--- NOTE | 2022-08-07 21:58 | PC.NURSE ---
Patient refused labs multiple times, and lovenox. Patient has an 20g iv under her bicep closer to arm pit. Patient has slept most of the shift its now 10pm. Patient c/o right arm infection swollen and red.
--- NOTE | 2022-08-07 22:08 | HE.PHANOTE ---
RE: methadone Verified last dose of 145mg from [facility] on 08/07/22
[2022-08-07] MEDS: 0.9 % Sodium Chloride 1,000 ML 999 ML IV (23:10)
[2022-08-07] MEDS: Cyclobenzaprine HCl 10 MG TABLET PO (23:10)
[2022-08-07] MEDS: clonazePAM 0.5 MG TABLET PO (23:11)
[2022-08-07 23:41] VITALS: BP 97/44; PULSE 76; RESP 18; TEMP 36.1; O2SAT 99
--- NOTE | 2022-08-07 23:58 | PC.NURSE ---
patient sleeping. chest rise and fall equal and unlabored. call lopez within reach. patient is able to make needs known
[2022-08-08 08:00] VITALS: BP 117/67; PULSE 64; RESP 18; TEMP 35.9; O2SAT 97
[2022-08-08 08:46] LABS: Hematocrit 35.2 % (37.0-47.0); Hemoglobin 11.9 g/dl (12.0-16.0); Mean Corpuscular HGB Conc 33.8 g/dl (31.0-35.0); Mean Corpuscular Hemoglobin 30.1 pg (27.0-33.0); Mean Corpuscular Volume 89.1 fL (80.0-98.0); PLT CLUMP 1; Red Blood Count 3.95 X10*6/uL (4.20-5.50); Red Cell Distribution Width 12.9 % (11.0-16.0); WBC ABN SCTR FOR CBC 1
--- NOTE | 2022-08-08 08:52 | PC.NURSE ---
IV IN UPPER LEFT ARM NOT WORKING PAINFUL AND HARD TO FLUSH, DR FONSECA AWARE
[2022-08-08 09:06] LABS: Anion Gap 16 (12-20); Blood Urea Nitrogen 8 mg/dL (9-16); Calcium 8.3 mg/dL (8.4-10.2); Carbon Dioxide 22 mmol/L (22-29); Chloride 108 mmol/L (96-108); Creatinine Clr Calc Pharmacy 130.1; Estimated Glomerular Filt Rate > 60; Glucose Random 134 mg/dL (60-115); Potassium 3.7 mmol/L (3.3-5.1); Sodium 142 mmol/L (135-145)
--- NOTE | 2022-08-08 09:09 | HE.PHANOTE ---
earlene katz continue current dose, next trough 08/09 @0600 elena
[2022-08-08 09:30] LABS: Band Neutrophils Percent 0 % (3-5); Eosinophils Percent Manual 4 % (0-4); Lymphocytes Percent Manual 43 % (20-40); Monocytes Percent Manual 6 % (2-11); Neutrophils Percent Manual 47 % (45-73)
[2022-08-08 09:31] LABS: Platelet Estimate DECREASED (NORMAL); Platelet Morphology Comment NORMAL; RBC Morphology NORMAL
[2022-08-08 09:35] LABS: Eosinophils Absolute Manual 0.1 X10*3/uL (0.0-0.4); Lymphocytes Absolute Manual 0.9 X10*3/uL (1.2-4.9); Monocytes Absolute Manual 0.1 X10*3/uL (0.1-1.2); White Blood Count 2.2 X10*3/uL (4.8-10.8)
[2022-08-08 09:43] LABS: C Reactive Protein 0.27 mg/dL (< or = 0.50)
--- NOTE | 2022-08-08 10:41 | PC.NURSE ---
DR FONSECA HAS BEEN IN CONTACT WITH IR, ED AND ICU PROVIDERS TO SEE IF THEY COULD ASSIST WITH IV ACCESS, ALL ARE UNABLE TO AT THIS TIME. THIS RN TRIED, TYE FROM [facility] TRIED PT IS VERY DIFFICULT ACCESS.
[2022-08-08] MEDS: busPIRone HCl 10 MG TABLET 30 MG PO ×3 (10:47→20:35)
[2022-08-08] MEDS: DULoxetine HCl 30 MG CAPSULE.DR PO (10:47)
[2022-08-08] MEDS: Cyanocobalamin (Vitamin B-12) 1,000 MCG TABLET 1000 MCG PO (10:47)
[2022-08-08] MEDS: Gabapentin 400 MG CAPSULE 800 MG PO ×3 (10:48→20:35)
[2022-08-08] MEDS: methADONE HCl 20 MG/2 ML ORAL.CONC 145 MG PO (10:48)
[2022-08-08] MEDS: hydrOXYzine HCL 50 MG TABLET PO ×2 (10:48→20:36)
[2022-08-08] MEDS: Loratadine 10 MG TABLET PO (10:48)
[2022-08-08] MEDS: Fluticasone Propionate Nasal 16 GM SPRAY 1 SPRAY NOSTRIL-B (10:48)
[2022-08-08] MEDS: Propranolol HCL 10 MG TABLET PO ×2 (10:49→20:36)
[2022-08-08] MEDS: Topiramate 25 MG TABLET 50 MG PO ×2 (10:49→20:36)
[2022-08-08] MEDS: Cyclobenzaprine HCl 10 MG TABLET PO ×2 (10:57→16:44)
[2022-08-08] MEDS: clonazePAM 0.5 MG TABLET PO ×2 (10:57→16:44)
--- NOTE | 2022-08-08 12:54 | PC.NURSE ---
HAI ROSAS FROM ED CAME TO ATTEMPT LIKE WITH ULTRA SOUND UNABLE TO GET ACCESS
[2022-08-08 13:01] LABS: Appearance Urine Clear; Color Urine Yellow; Glucose Urine UA Negative (Negative); Leukocyte Esterase Urine Trace (Negative); Nitrite Urine Negative (Negative); Specific Gravity - Urine <= 1.005 (1.005-1.025); UMIC TRIGGER UACC YES; Urine Blood Negative (Negative); Urine Ketones Negative (Negative); Urine Protein Negative (Neg-Trace)
[2022-08-08 13:08] LABS: Amphetamine Screen Urine Not Detected (Not Detect); Barbiturates, Urine Not Detected (Not Detect); Benzodiazepines Screen Urine Not Detected (Not Detect); Cannabinoid Screen Urine Not Detected (Not Detect); Cocaine Screen Urine POSITIVE (Not Detect); Fentanyl, urine POSITIVE (Not Detect); Opiate Screen Urine Not Detected (Not Detect); Phencyclidine Screen Urine Not Detected (Not Detect)
[2022-08-08 13:19] LABS: Bacteria Urine None Seen (None Seen); Hyaline Casts Urine 0-2 /LPF (0-2); RBC Urine 0-2 /HPF (0-2); UACC Culture Trigger YES
--- NOTE | 2022-08-08 13:57 | PC.NURSE ---
ORTHO NOTIFIED ABOUT CONSULT
[2022-08-08 14:00] VITALS: BP 119/67; PULSE 74; RESP 16; TEMP 36.2; O2SAT 96
[2022-08-08] MEDS: Amoxicillin/Potassium Clav 875 MG TABLET PO ×2 (14:12→20:35)
[2022-08-08] MEDS: Doxycycline Monohydrate 100 MG CAPSULE PO ×2 (14:12→20:35)
[2022-08-08 14:20] VITALS: BMI 37.7
--- NOTE | 2022-08-08 14:30 | HO.PM.IMPN ---
Subjective Subjective Date of Service: 08/08/22 Interval History: hand cellulitis /ivdu. Review of Systems Still has some and swelling and pain, does not seem to be much erythema denies any chest pain or shortness of breath or abdominal pain vaginal itchin Physical Exam Vital Signs: Vital Signs: Last Vital Signs Temp 97.1 F 08/08/22 14:00 Pulse 74 08/08/22 14:00 Resp 16 08/08/22 14:00 BP 119/67 08/08/22 14:00 Pulse Ox 96 08/08/22 14:00 O2 Del Method 08/08/22 14:00 BMI result Body Mass Index 37.7 aox3, not in distress Neck supple, no JVD Regular rate and rhythm, S1-S2 heard Regular breath sounds bilaterally, no wheezing or crackles appreciated Abdomen soft nontender, no guarding, no rigidity. Msk: Multiple IV track delgado seen ; right hand with swelling, and tenderness somewhat improivng, no induration Psych: Normal mood Objective Data Active Medications Acetaminophen (Acetaminophen 325 Mg Tablet) 650 mg PO Q6H PRN PRN Reason: Pain, Mild (Pain Scale 1-3) Amoxicillin/Clavulanate Potassium (Amoxicillin/Potassium Clav 875 Mg Tablet) 875 mg PO Q12H [facility] Buspirone HCl (Buspirone Hcl 10 Mg Tablet) 30 mg PO TID [facility] Last Admin: 08/08/22 14:12 Dose: 30 mg Documented By: BERE Clonazepam (Clonazepam 0.5 Mg Tablet) 0.5 mg PO BID PRN PRN Reason: Anxiety Last Admin: 08/08/22 10:57 Dose: 0.5 mg Documented By: NACHO Clotrimazole (Clotrimazole 1 % Cream 15 Gm Tube) 1 appl TOPICAL BID PRN PRN Reason: Rash Cyanocobalamin (Cyanocobalamin (Vitamin B-12) 1,000 Mcg Tablet) 1,000 mcg PO DAILY [facility] Last Admin: 08/08/22 10:47 Dose: 1,000 mcg Documented By: NACHO Cyclobenzaprine HCl (Cyclobenzaprine Hcl 10 Mg Tablet) 10 mg PO BID PRN PRN Reason: Muscle Spasm Last Admin: 08/08/22 10:57 Dose: 10 mg Documented By: NACHO Doxycycline Monohydrate (Doxycycline Monohydrate 100 Mg Capsule) 100 mg PO Q12H [facility] Duloxetine HCl (Duloxetine Hcl 30 Mg Capsule.Dr) 30 mg PO DAILY [facility] Last Admin: 08/08/22 10:47 Dose: 30 mg Documented By: NACHO Enoxaparin Sodium (Enoxaparin Sodium 40 Mg/0.4 Ml Syringe) 40 mg SUBCUT Q24H [facility] Last Admin: 08/07/22 21:48 Dose: Not Given Documented By: LEONARD Non-Admin Reason: Patient Refused Fluticasone Propionate (Fluticasone Propionate Nasal 16 Gm [place]) 1 spray NOSTRIL-B BID [facility] Last Admin: 08/08/22 10:48 Dose: 1 spray Documented By: NACHO Gabapentin (Gabapentin 400 Mg Capsule) 800 mg PO TID [facility] Last Admin: 08/08/22 14:12 Dose: 800 mg Documented By: BERE Hydroxyzine HCl (Hydroxyzine Hcl 50 Mg Tablet) 50 mg PO BID [facility] Last Admin: 08/08/22 10:48 Dose: 50 mg Documented By: NACHO Vancomycin HCl 1,000 mg/ (Sodium Chloride) 270 mls @ 270 mls/hr IV Q12H [facility] Loratadine (Loratadine 10 Mg Tablet) 10 mg PO DAILY [facility] Last Admin: 08/08/22 10:48 Dose: 10 mg Documented By: NACHO Melatonin (Melatonin 3 Mg Tablet) 6 mg PO BEDTIME PRN PRN Reason: Insomnia Methadone HCl (Methadone Hcl 20 Mg/2 Ml Oral.Conc) 145 mg PO DAILY [facility] Last Admin: 08/08/22 10:48 Dose: 145 mg Documented By: NACHO Ondansetron HCl (Ondansetron Hcl 4 Mg/2 Ml Vial) 4 mg IVPUSH Q8H PRN PRN Reason: Nausea and Vomiting Pharmacy Consult (Consult Rx Vancomycin Dosing) 1 each MISCELLANE DAILY PRN PRN Reason: Consult order Pharmacy Consult (Consult Rx Vancomycin Dosing) 1 each MISCELLANE DAILY PRN PRN Reason: Consult order Propranolol HCl (Propranolol Hcl 10 Mg Tablet) 10 mg PO BID [facility]; Protocol Last Admin: 08/08/22 10:49 Dose: 10 mg Documented By: NACHO Sodium Chloride (0.9 % Sodium Chloride Flush 3 Ml Syringe) 3 ml IVFLUSH QSHIFT [facility] Last Admin: 08/08/22 08:31 Dose: Not Given Documented By: NACHO Non-Admin Reason: iv not working Topiramate (Topiramate 25 Mg Tablet) 50 mg PO BID [facility] Last Admin: 08/08/22 10:49 Dose: 50 mg Documented By: NACHO Zolpidem Tartrate (Zolpidem Tartrate 5 Mg Tablet) 5 mg PO BEDTIME PRN PRN Reason: Sleep Labs CBC & Chem 7: 08/08/22 08:20 08/08/22 08:20 Labs: Laboratory Results - last 24 hr 08/07/22 08/07/22 08/07/22 16:59 16:59 16:59 MCV 87.9 MCH 29.7 MCHC 33.8 RDW 12.9 Plt Count 115 L MPV 10.4 Immature Gran % (Auto) 0.5 H Neut % (Auto) 44.2 L Lymph % (Auto) 47.0 H Cedar % (Auto) 5.5 Eos % (Auto) 2.3 Baso % (Auto) 0.5 Lymph # (Auto) 2.1 Cedar # (Auto) 0.2 Eos # (Auto) 0.1 Baso # (Auto) 0.0 Abs Immat Gran (auto) 0.02 Absolute Neuts (auto) 1.9 L Absolute Nucleated RBC 0.000 Nucleated RBC % (auto) 0.0 Neutrophils % (Manual) Band Neutrophils % Lymphocytes % (Manual) Monocytes % (Manual) Eosinophils % (Manual) Abs Neuts (Manual) Lymphocytes # (Manual) Monocytes # (Manual) Eosinophils # (Manual) Platelet Estimate Plt Morphology Comment RBC Morphology Smear Tech's Comments VERIFIED Anion Gap Estim Creat Clear Calc Estimated GFR Random Glucose Lactic Acid 0.6 Calcium Total Creatine Kinase C-Reactive Protein Urine Color Urine Appearance Urine pH Ur Specific Spring Urine Protein Urine Glucose (UA) Urine Ketones Urine Blood Urine Nitrite Ur Leukocyte Esterase Urine RBC Urine WBC Ur Squamous Epith Cells Urine Bacteria Hyaline Casts Urine Yeast Urine Opiates Screen Urine Fentanyl Screen Ur Barbiturates Screen Ur Phencyclidine Scrn Ur Amphetamines Screen U Benzodiazepines Scrn Urine Cocaine Screen U Marijuana (THC) Screen COVID-19 (ZACK) Negative COVID-19 Clin Com See Note 08/08/22 08/08/22 08/08/22 08:20 08:20 08:20 MCV 89.1 MCH 30.1 MCHC 33.8 RDW 12.9 Plt Count TNP MPV [employer] Immature Gran % (Auto) Cancelled Neut % (Auto) Cancelled Lymph % (Auto) Cancelled Cedar % (Auto) Cancelled Eos % (Auto) Cancelled Baso % (Auto) Cancelled Lymph # (Auto) Cancelled Cedar # (Auto) Cancelled Eos # (Auto) Cancelled Baso # (Auto) Cancelled Abs Immat Gran (auto) Cancelled Absolute Neuts (auto) Cancelled Absolute Nucleated RBC 0.000 Nucleated RBC % (auto) 0.0 Neutrophils % (Manual) 47 Band Neutrophils % 0 L Lymphocytes % (Manual) 43 H Monocytes % (Manual) 6 Eosinophils % (Manual) 4 Abs Neuts (Manual) 1.0 L Lymphocytes # (Manual) 0.9 L Monocytes # (Manual) 0.1 Eosinophils # (Manual) 0.1 Platelet Estimate DECREASED Plt Morphology Comment NORMAL RBC Morphology NORMAL Smear Tech's Comments Anion Gap 16 Cancelled Estim Creat Clear Calc 130.1 Cancelled Estimated GFR > 60 Cancelled Random Glucose 134 H Cancelled Lactic Acid Calcium 8.3 L D Cancelled Total Creatine Kinase 601 H C-Reactive Protein 0.27 Urine Color Urine Appearance Urine pH Ur Specific Spring Urine Protein Urine Glucose (UA) Urine Ketones Urine Blood Urine Nitrite Ur Leukocyte Esterase Urine RBC Urine WBC Ur Squamous Epith Cells Urine Bacteria Hyaline Casts Urine Yeast Urine Opiates Screen Urine Fentanyl Screen Ur Barbiturates Screen Ur Phencyclidine Scrn Ur Amphetamines Screen U Benzodiazepines Scrn Urine Cocaine Screen U Marijuana (THC) Screen COVID-19 (ZACK) COVID-19 Clin Com 08/08/22 08/08/22 12:49 12:49 MCV MCH MCHC RDW Plt Count MPV Immature Gran % (Auto) Neut % (Auto) Lymph % (Auto) Cedar % (Auto) Eos % (Auto) Baso % (Auto) Lymph # (Auto) Cedar # (Auto) Eos # (Auto) Baso # (Auto) Abs Immat Gran (auto) Absolute Neuts (auto) Absolute Nucleated RBC Nucleated RBC % (auto) Neutrophils % (Manual) Band Neutrophils % Lymphocytes % (Manual) Monocytes % (Manual) Eosinophils % (Manual) Abs Neuts (Manual) Lymphocytes # (Manual) Monocytes # (Manual) Eosinophils # (Manual) Platelet Estimate Plt Morphology Comment RBC Morphology Smear Tech's Comments Anion Gap Estim Creat Clear Calc Estimated GFR Random Glucose Lactic Acid Calcium Total Creatine Kinase C-Reactive Protein Urine Color Yellow Urine Appearance Clear Urine pH 7.0 Ur Specific Spring <= 1.005 Urine Protein Negative Urine Glucose (UA) Negative Urine Ketones Negative Urine Blood Negative Urine Nitrite Negative Ur Leukocyte Esterase Trace H Urine RBC 0-2 Urine WBC 6-10 H Ur Squamous Epith Cells 11-20 Urine Bacteria None Seen Hyaline Casts 0-2 Urine Yeast Present Urine Opiates Screen Not Detected Urine Fentanyl Screen POSITIVE H Ur Barbiturates Screen Not Detected Ur Phencyclidine Scrn Not Detected Ur Amphetamines Screen Not Detected U Benzodiazepines Scrn Not Detected Urine Cocaine Screen POSITIVE H U Marijuana (THC) Screen Not Detected COVID-19 (ZACK) COVID-19 Clin Com Assessment and Plan (1) Cellulitis of finger of right hand: Status: Acute (2) Thrombocytopenia: Status: Acute Plan 42-year-old female with pertinent history of IV drug use disorder, mood disorder who presents to the emergency department for evaluation of right hand swelling. #. Right hand cellulitis hand xray: 1.? No acute osseous injury or radiographic evidence of advanced osteomyelitis. 2.? Pronounced dorsal soft tissue swelling about the wrist and hand. No radiodense foreign body or tracking soft tissue gas. swelling and erythema improving hence Multiple attempts of placing IV line including from the ED, floor staff, IR unsuccessful. and swelling is improving- we will try p.o. antibiotics added ortho evaluation #. Polysubstance use disorder -agreed to using cocaine. Previously used heroin. Continue methadone. CARE team and addiction team consulted. #. Mood disorder -continue baseline meds #. Recent admission for rhabdo due to cocaine -CK ordered but pt refused. Resuscitated with IV fluids in the ER. Check CK improved. vaginal itching: Vaginal swab testing ordered- for gonorrhea, chlamydia, bacterial vaginosis panel. DVT prophylaxis: Lovenox 40 mg daily ongoing hospitalization need: Hand cellulitis- need hand cellulitis monitoring and IV antibiotics, orthopedic evaluation also pending. Quality Stroke Does the patient have a stroke diagnosis?: No VTE Prior VTE?: No VTE Risk Level:: Medical - moderate - high VTE Device Contraindication: Treatment Not Indicated VTE Drug Contraindication: N/A - Med Ordered
--- NOTE | 2022-08-08 15:37 | PC.NURSE ---
Unable to locate a vein to access for peripheral IV. Dr Deshpande notified.Pt's nurse notified.
--- NOTE | 2022-08-08 15:42 | PM.CNOR ---
History of Present Illness HPI Consult date: 08/08/22 Chief complaint: right hand swelling Narrative: 42 year old F with a history of intravenous drug use cocaine/fentanyl/heroin who was seen in the ED on 08/02/22 with complaints of generalized aches and pains which have been on going for several days. She was found to have bilateral early cellulitis of the upper extremities. She decided to sign out against medical advice and per ED chart during this visit -- has been using since then. Medicine did see her in the ED that same day and was going to admit but she left. She did have PO abx sent to the pharmacy. Patient returned today due to worsening pain in the right hand . States she did shoot up cocaine again in the hand and all up her arm. She was admitted to medical service and orthopedics was consulted for further recommendations. Review of Systems Review of Systems: per [facility] Past Medical History Medical History Back pain Chronic post-traumatic stress disorder (PTSD) Leg pain, bilateral Opioid dependence Opioid use disorder, moderate, in sustained remission, dependence Rhabdomyolysis Substance abuse Substance abuse Social History Social History Household Members: None Housing: Homeless Housing Other:: patient states she is homeless Do you presently have visiting nurse or other home services: No Unable to assess alcohol history related to: Refusing to respond Alcohol intake: former Patient Tobacco Use Status: Former Tobacco user Quit Date: 07/22/22 Tobacco use type: Cigarette Cigarette Packs Per Day: 1 Cigarettes Per Day: 20.0 Years Smoked: 10 Smoked in Last 30 Days: Yes e-Cigarette/Vaping Use: Former Use Second Hand Smoke Exposure: Yes Use of substances other than those prescribed or required for medical reasons: Yes Substance Use Type: Crack/Cocaine and Heroin Substance Use Frequency: Daily Last Used Substance: Just Prior to Admission Currently Displaying Signs/Symptoms of Drug Intoxication Withdrawal: Yes Any prior treatment program specific to substance use: Yes Have you been hit, kicked, punched, or otherwise hurt by someone within the past year? If so, by whom?: No Do you feel safe in your current relationship?: No Current Relationship Is there a partner from a previous relationship who is making you feel unsafe now?: No Are you made to feel afraid or neglected: No Advance Directives: Yes Advance Directives on File: Yes Advance Directives Date on File: 12/28/20 Do you have thoughts of harming others: None Do you have a plan to hurt others: No Plan Recently lost weight without trying: No Eating poorly because of decreased appetite: No Nutrition Risks: No Nutritional Risk Patient : No : No Poor oral hygiene: No service: No Current occupational status: disabled Sexual orientation: Did not discuss Meds Allergies Allergy/AdvReac Type Severity Reaction Status Date / Time quetiapine [From SEROQUEL] Allergy Severe THROAT Verified 04/01/22 10:03 SWELLING azithromycin [AZITHROMYCIN] Allergy Unknown Unknown Verified 04/01/22 10:03 erythromycin base Allergy Unknown RASH Verified 05/22/21 18:18 [ERYTHROMYCIN BASE] olanzapine [From ZYPREXA] Allergy Unknown PEDAL EDEMA Verified 05/22/21 18:18 sulfacetamide Allergy Unknown Unknown Verified 05/22/21 18:18 [From Sulfacet-R] sulfamethoxazole Allergy Unknown ITCHING Verified 05/22/21 18:18 [From BACTRIM] sulfur [From Sulfacet-R] Allergy Unknown Unknown Verified 05/22/21 18:18 trimethoprim [From BACTRIM] Allergy Unknown ITCHING Verified 05/22/21 18:18 risperidone [From RISPERDAL] AdvReac Unknown TWITCHING Verified 04/01/22 10:03 seafood AdvReac Unknown Vomiting Verified 05/22/21 18:18 shellfish derived AdvReac Unknown VOMITING Verified 04/01/22 10:03 [SHELLFISH DERIVED] trazodone AdvReac restless Verified 04/28/22 13:01 legs Active Medications: Current Medications Acetaminophen (Acetaminophen 325 Mg Tablet) 650 mg PO Q6H PRN PRN Reason: Pain, Mild (Pain Scale 1-3) Amoxicillin/Clavulanate Potassium (Amoxicillin/Potassium Clav 875 Mg Tablet) 875 mg PO Q12H [facility] Buspirone HCl (Buspirone Hcl 10 Mg Tablet) 30 mg PO TID [facility] Last Admin: 08/08/22 14:12 Dose: 30 mg Clonazepam (Clonazepam 0.5 Mg Tablet) 0.5 mg PO BID PRN PRN Reason: Anxiety Last Admin: 08/08/22 10:57 Dose: 0.5 mg Clotrimazole (Clotrimazole 1 % Cream 15 Gm Tube) 1 appl TOPICAL BID PRN PRN Reason: Rash Cyanocobalamin (Cyanocobalamin (Vitamin B-12) 1,000 Mcg Tablet) 1,000 mcg PO DAILY [facility] Last Admin: 08/08/22 10:47 Dose: 1,000 mcg Cyclobenzaprine HCl (Cyclobenzaprine Hcl 10 Mg Tablet) 10 mg PO BID PRN PRN Reason: Muscle Spasm Last Admin: 08/08/22 10:57 Dose: 10 mg Doxycycline Monohydrate (Doxycycline Monohydrate 100 Mg Capsule) 100 mg PO Q12H [facility] Duloxetine HCl (Duloxetine Hcl 30 Mg Capsule.) 30 mg PO DAILY [facility] Last Admin: 08/08/22 10:47 Dose: 30 mg Enoxaparin Sodium (Enoxaparin Sodium 40 Mg/0.4 Ml Syringe) 40 mg SUBCUT Q24H [facility] Last Admin: 08/07/22 21:48 Dose: Not Given Fluticasone Propionate (Fluticasone Propionate Nasal 16 Gm [place]) 1 spray NOSTRIL-B BID [facility] Last Admin: 08/08/22 10:48 Dose: 1 spray Gabapentin (Gabapentin 400 Mg Capsule) 800 mg PO TID [facility] Last Admin: 08/08/22 14:12 Dose: 800 mg Hydroxyzine HCl (Hydroxyzine Hcl 50 Mg Tablet) 50 mg PO BID [facility] Last Admin: 08/08/22 10:48 Dose: 50 mg Vancomycin HCl 1,000 mg/ (Sodium Chloride) 270 mls @ 270 mls/hr IV Q12H [facility] Loratadine (Loratadine 10 Mg Tablet) 10 mg PO DAILY [facility] Last Admin: 08/08/22 10:48 Dose: 10 mg Melatonin (Melatonin 3 Mg Tablet) 6 mg PO BEDTIME PRN PRN Reason: Insomnia Methadone HCl (Methadone Hcl 20 Mg/2 Ml Oral.Conc) 145 mg PO DAILY [facility] Last Admin: 08/08/22 10:48 Dose: 145 mg Omeprazole (Omeprazole 20 Mg Capsule.Dr) 20 mg PO BID@0630,1630 [facility] Ondansetron HCl (Ondansetron Hcl 4 Mg/2 Ml Vial) 4 mg IVPUSH Q8H PRN PRN Reason: Nausea and Vomiting Pharmacy Consult (Consult Rx Vancomycin Dosing) 1 each MISCELLANE DAILY PRN PRN Reason: Consult order Pharmacy Consult (Consult Rx Vancomycin Dosing) 1 each MISCELLANE DAILY PRN PRN Reason: Consult order Propranolol HCl (Propranolol Hcl 10 Mg Tablet) 10 mg PO BID [facility]; Protocol Last Admin: 08/08/22 10:49 Dose: 10 mg Sodium Chloride (0.9 % Sodium Chloride Flush 3 Ml Syringe) 3 ml IVFLUSH QSHIFT [facility] Last Admin: 08/08/22 08:31 Dose: Not Given Topiramate (Topiramate 25 Mg Tablet) 50 mg PO BID [facility] Last Admin: 08/08/22 10:49 Dose: 50 mg Zolpidem Tartrate (Zolpidem Tartrate 5 Mg Tablet) 5 mg PO BEDTIME PRN PRN Reason: Sleep Home Medications Medication Instructions Recorded Confirmed Last Taken Type cyanocobalamin (vitamin B-12) 1,000 mcg PO DAILY 06/16/22 08/07/22 Unknown History 1,000 mcg tablet cyclobenzaprine 10 mg tablet 10 mg PO BID PRN Muscle Spasm 06/16/22 08/07/22 Unknown History loratadine 10 mg tablet 10 mg PO DAILY 06/16/22 08/07/22 Unknown History methadone 10 mg/mL oral 145 mg PO DAILY 06/16/22 08/07/22 08/07/22 History concentrate (Methadose) propranolol 10 mg tablet 10 mg PO BID 06/16/22 08/07/22 Unknown History acetaminophen 325 mg tablet 650 mg PO DAILY PRN Pain 08/04/22 08/07/22 Unknown History clonazepam 0.5 mg tablet 0.5 mg PO BID PRN Anxiety 08/04/22 08/07/22 08/02/22 History duloxetine 30 mg capsule,delayed 30 mg PO DAILY 08/04/22 08/07/22 Unknown History release fluticasone propionate 50 1 spray intranasal BID 08/04/22 08/07/22 Unknown History mcg/actuation nasal spray,suspension gabapentin 800 mg tablet 800 mg PO TID 08/04/22 08/07/22 Unknown History hydroxyzine HCl 50 mg tablet 50 mg PO BID 08/04/22 08/07/22 Unknown History ketoconazole 2 % topical cream 1 applic topical BID PRN Rash 08/04/22 08/07/22 Unknown History topiramate 50 mg tablet 50 mg PO BID 08/04/22 08/07/22 Unknown History zolpidem 5 mg tablet 5 mg PO BEDTIME PRN Sleep 08/04/22 08/07/22 Unknown History buspirone 10 mg tablet 3 tab PO TID 08/07/22 08/07/22 Unknown History Physical Exam Vital Signs: Vital Signs: Last Vital Signs Temp 97.1 F 08/08/22 14:00 Pulse 74 08/08/22 14:00 Resp 16 08/08/22 14:00 BP 119/67 08/08/22 14:00 Pulse Ox 96 08/08/22 14:00 O2 Del Method 08/08/22 14:00 BMI result Body Mass Index 37.7 Const: General: cooperative, comfortable and no acute distress Extrem: Other: Right hand has an area os swelling over the dorsum without redness or drainage. There does not appear to be a distinct abscess. She can full extend all digits. She can just barely make a fist. No pain or swelling/ abscess formation on the palmar aspect. No pain in the flexor tendons. Dense swelling in the forearm. No lymphangitis. Results Labs Result Diagrams: 08/08/22 08:20 08/08/22 08:20 Labs: Abnormal lab results 08/07/22 08/08/22 08/08/22 Range/Units 16:59 08:20 08:20 WBC 4.4 L 2.2 L (4.8-10.8) X10*3/uL RBC 3.95 L (4.20-5.50) X10*6/uL Hgb 11.9 L (12.0-16.0) g/dl Hct 35.2 L (37.0-47.0) % Plt Count 115 L (160-400) X10*3/uL Immature Gran % (Auto) 0.5 H (0.0-0.4) % Neut % (Auto) 44.2 L (45-73) % Lymph % (Auto) 47.0 H (20-40) % Absolute Neuts (auto) 1.9 L (2.0-8.3) x10*3/uL Band Neutrophils % 0 L (3-5) % Lymphocytes % (Manual) 43 H (20-40) % Abs Neuts (Manual) 1.0 L (2.0-8.3) X10*3/uL Lymphocytes # (Manual) 0.9 L (1.2-4.9) X10*3/uL BUN 8 L (9-16) mg/dL Random Glucose 134 H (60-115) mg/dL Calcium 8.3 L D (8.4-10.2) mg/dL Total Creatine Kinase 601 H (26-140) U/L Ur Leukocyte Esterase (Negative) Urine WBC (0-5) /HPF Urine Fentanyl Screen (Not Detect) Urine Cocaine Screen (Not Detect) 08/08/22 08/08/22 Range/Units 12:49 12:49 WBC (4.8-10.8) X10*3/uL RBC (4.20-5.50) X10*6/uL Hgb (12.0-16.0) g/dl Hct (37.0-47.0) % Plt Count (160-400) X10*3/uL Immature Gran % (Auto) (0.0-0.4) % Neut % (Auto) (45-73) % Lymph % (Auto) (20-40) % Absolute Neuts (auto) (2.0-8.3) x10*3/uL Band Neutrophils % (3-5) % Lymphocytes % (Manual) (20-40) % Abs Neuts (Manual) (2.0-8.3) X10*3/uL Lymphocytes # (Manual) (1.2-4.9) X10*3/uL BUN (9-16) mg/dL Random Glucose (60-115) mg/dL Calcium (8.4-10.2) mg/dL Total Creatine Kinase (26-140) U/L Ur Leukocyte Esterase Trace H (Negative) Urine WBC 6-10 H (0-5) /HPF Urine Fentanyl Screen POSITIVE H (Not Detect) Urine Cocaine Screen POSITIVE H (Not Detect) H & H 08/07/22 08/08/22 Range/Units 16:59 08:20 Hgb 12.8 11.9 L (12.0-16.0) g/dl Hct 37.9 35.2 L (37.0-47.0) % All other labs normal. Assessment and Plan (1) Cellulitis of finger of right hand: Status: Acute (2) Cocaine use: Status: Acute Plan I explained to her this seems more like an inflammatory response from the cocaine rather an infection but we will continue to watch as she is on iv abx and see if her symptoms improve. At this time no surgical intervention. She is content with this plan. Procedures Date of Service Date of Service: 08/08/22
--- NOTE | 2022-08-08 15:52 | MHC.CM.PN ---
PT REPORTS SHE IS CURRENTLY STAYING ON THE STREETS SHE REPORTS SHE IS ACTIVE WITH THE [facility] AND HAS [facility] SERVICES SHE REPORTS SHE WOULD LIKE TO GO TO A DETOX, CSS OR RESPITE AT [place] SHE IS COVID VAX X 3 WITH [facility] PCP: GUSTAVO JIANG HCP: COPY REQUESTED CURRENTLY DCP IS TBD DEPILATORY PAINTER FOLLOWING
[2022-08-08 16:00] VITALS: BP 120/64; PULSE 70; RESP 18; TEMP 36.1; O2SAT 98
--- NOTE | 2022-08-08 16:17 | MHC.RECOVRN ---
Met with pt in [facility] to discuss substance use. Pt laying in bed, awake, alert, easily engages in conversation. Pt reports after leaving the hospital on 08/06 attempting to inject into right hand again. Pt states I'm running out of spots. Discussed other safer locations for injecting and harm reduction. Pt had been increased 135 mg to 145 mg methadone on 08/07 at [facility] in [place]. This is pts new home OTP. Pt discussed current situation regarding being unstably housed. Discussed options such as [employer] [address] and utilizing [employer] and their assistance with housing. Pt is familiar with both programs. Pt resting comfortably in bed, denies questions or concerns for t/w. Discussed with Kelly Hinds NP.
[2022-08-08] MEDS: Omeprazole 20 MG CAPSULE.DR PO (16:43)
[2022-08-08] MEDS: Ibuprofen 400 MG TABLET PO (16:44)
[2022-08-08 16:49] LABS: CT PCR NOT DETECTED (Not Detect.)
[2022-08-08 16:50] LABS: NG PCR NOT DETECTED (Not Detect.)
[2022-08-08 20:00] VITALS: BP 116/65; PULSE 60; RESP 18; TEMP 35.8; O2SAT 98
[2022-08-08] MEDS: Enoxaparin Sodium 40 MG/0.4 ML SYRINGE SUBCUT (20:36)
[2022-08-08] MEDS: Zolpidem Tartrate 5 MG TABLET PO (20:46)
[2022-08-08] MEDS: Nicotine Polacrilex 2 MG GUM BUCCAL (21:04)
--- NOTE | 2022-08-08 21:32 | PC.NURSE ---
Unableto locate Flonase nsaal spray ,not found in patient's specific nor in room, pharmacy made aware, said to calll pt's last location, director community organization claimed no way to find out where pt last location is .
--- NOTE | 2022-08-08 21:34 | PC.NURSE ---
Pt requested for Nicotine gum, Dr. Burrell notified and ordered , med given
[2022-08-09] VITALS (7 sets, daily range): BP systolic 109–148; BP diastolic 57–91; PULSE 62–75; RESP 12–20; TEMP 36–36.5; O2SAT 96–98
[2022-08-09] MEDS: Omeprazole 20 MG CAPSULE.DR PO ×2 (05:46→15:36)
[2022-08-09] MEDS: Cyclobenzaprine HCl 10 MG TABLET PO ×2 (06:00→15:51)
[2022-08-09] MEDS: clonazePAM 0.5 MG TABLET PO ×2 (06:00→15:50)
[2022-08-09] MEDS: methADONE HCl 20 MG/2 ML ORAL.CONC 145 MG PO (09:42)
[2022-08-09] MEDS: DULoxetine HCl 30 MG CAPSULE.DR PO (09:45)
[2022-08-09] MEDS: hydrOXYzine HCL 50 MG TABLET PO ×2 (09:45→20:08)
[2022-08-09] MEDS: Cyanocobalamin (Vitamin B-12) 1,000 MCG TABLET 1000 MCG PO (09:46)
[2022-08-09] MEDS: Gabapentin 400 MG CAPSULE 800 MG PO ×3 (09:46→20:09)
[2022-08-09] MEDS: Propranolol HCL 10 MG TABLET PO ×2 (09:46→20:08)
[2022-08-09] MEDS: Amoxicillin/Potassium Clav 875 MG TABLET PO ×2 (09:46→20:09)
[2022-08-09] MEDS: Doxycycline Monohydrate 100 MG CAPSULE PO ×2 (09:46→20:09)
[2022-08-09] MEDS: Loratadine 10 MG TABLET PO (09:46)
[2022-08-09] MEDS: Topiramate 25 MG TABLET 50 MG PO ×2 (09:46→20:08)
[2022-08-09] MEDS: busPIRone HCl 10 MG TABLET 30 MG PO ×3 (09:46→20:09)
[2022-08-09 10:46] LABS: Vancomycin Trough < 3.0 mcg/mL (10.0-20.0)
[2022-08-09] MEDS: Nicotine Polacrilex 2 MG GUM BUCCAL ×5 (11:57→23:30)
[2022-08-09] MEDS: Acetaminophen 325 MG TABLET 650 MG PO (11:58)
[2022-08-09 13:07] LABS: Creatinine Clr Calc Pharmacy 119.4; Estimated Glomerular Filt Rate > 60
--- NOTE | 2022-08-09 14:14 | HO.PM.IMPN ---
Subjective Subjective Date of Service: 08/09/22 Interval History: hand cellulitis vs local recation to ivdu Review of Systems mild swellin/discomfort,? does not seem to be much erythema ?denies any chest pain or shortness of breath or abdominal pain vaginal itchin Physical Exam Vital Signs: Vital Signs: Last Vital Signs Temp 96.9 F 08/09/22 11:02 Pulse 62 08/09/22 11:02 Resp 18 08/09/22 11:02 BP 126/76 08/09/22 11:02 Pulse Ox 96 08/09/22 11:02 O2 Del Method 08/09/22 11:02 BMI result Body Mass Index 37.7 aox3, not in distress Neck supple, no JVD Regular rate and rhythm, S1-S2 heard Regular breath sounds bilaterally, no wheezing or crackles appreciated Abdomen soft nontender, no guarding, no rigidity. Msk: Multiple IV track delgado seen ; right hand with swelling improivng, no induration Psych: Normal mood Objective Data Active Medications Acetaminophen (Acetaminophen 325 Mg Tablet) 650 mg PO Q6H PRN PRN Reason: Pain, Mild (Pain Scale 1-3) Last Admin: 08/09/22 11:58 Dose: 650 mg Documented By: BRADEN Amoxicillin/Clavulanate Potassium (Amoxicillin/Potassium Clav 875 Mg Tablet) 875 mg PO Q12H [facility] Last Admin: 08/09/22 09:46 Dose: 875 mg Documented By: BRADEN Buspirone HCl (Buspirone Hcl 10 Mg Tablet) 30 mg PO TID [facility] Last Admin: 08/09/22 09:46 Dose: 30 mg Documented By: BRADEN Clonazepam (Clonazepam 0.5 Mg Tablet) 0.5 mg PO BID PRN PRN Reason: Anxiety Last Admin: 08/09/22 06:00 Dose: 0.5 mg Documented By: SHALIESH Clotrimazole (Clotrimazole 1 % Cream 15 Gm Tube) 1 appl TOPICAL BID PRN PRN Reason: Rash Cyanocobalamin (Cyanocobalamin (Vitamin B-12) 1,000 Mcg Tablet) 1,000 mcg PO DAILY [facility] Last Admin: 08/09/22 09:46 Dose: 1,000 mcg Documented By: BRADEN Cyclobenzaprine HCl (Cyclobenzaprine Hcl 10 Mg Tablet) 10 mg PO BID PRN PRN Reason: Muscle Spasm Last Admin: 08/09/22 06:00 Dose: 10 mg Documented By: SHAILESH Doxycycline Monohydrate (Doxycycline Monohydrate 100 Mg Capsule) 100 mg PO Q12H [facility] Last Admin: 08/09/22 09:46 Dose: 100 mg Documented By: BRADEN Duloxetine HCl (Duloxetine Hcl 30 Mg Capsule.) 30 mg PO DAILY [facility] Last Admin: 08/09/22 09:45 Dose: 30 mg Documented By: BRADEN Enoxaparin Sodium (Enoxaparin Sodium 40 Mg/0.4 Ml Syringe) 40 mg SUBCUT Q24H [facility] Last Admin: 08/08/22 20:36 Dose: 40 mg Documented By: SHAILESH Fluticasone Propionate (Fluticasone Propionate Nasal 16 Gm [place]) 1 spray NOSTRIL-B BID [facility] Last Admin: 08/09/22 09:47 Dose: Not Given Documented By: BRADEN Non-Admin Reason: Patient Refused Gabapentin (Gabapentin 400 Mg Capsule) 800 mg PO TID [facility] Last Admin: 08/09/22 09:46 Dose: 800 mg Documented By: BRADEN Hydroxyzine HCl (Hydroxyzine Hcl 50 Mg Tablet) 50 mg PO BID [facility] Last Admin: 08/09/22 09:45 Dose: 50 mg Documented By: BRADEN Loratadine (Loratadine 10 Mg Tablet) 10 mg PO DAILY [facility] Last Admin: 08/09/22 09:46 Dose: 10 mg Documented By: BRADEN Melatonin (Melatonin 3 Mg Tablet) 6 mg PO BEDTIME PRN PRN Reason: Insomnia Methadone HCl (Methadone Hcl 20 Mg/2 Ml Oral.Conc) 145 mg PO DAILY [facility] Last Admin: 08/09/22 09:42 Dose: 145 mg Documented By: BRADEN Nicotine Polacrilex (Nicotine Polacrilex 2 Mg Gum) 2 mg BUCCAL Q2H PRN PRN Reason: Nicotine Cravings Last Admin: 08/09/22 11:57 Dose: 2 mg Documented By: BRADEN Omeprazole (Omeprazole 20 Mg Capsule.) 20 mg PO BID@0630,1630 [facility] Last Admin: 08/09/22 05:46 Dose: 20 mg Documented By: SHAILESH Ondansetron HCl (Ondansetron Hcl 4 Mg/2 Ml Vial) 4 mg IVPUSH Q8H PRN PRN Reason: Nausea and Vomiting Pharmacy Consult (Consult Rx Vancomycin Dosing) 1 each MISCELLANE DAILY PRN PRN Reason: Consult order Propranolol HCl (Propranolol Hcl 10 Mg Tablet) 10 mg PO BID [facility]; Protocol Last Admin: 08/09/22 09:46 Dose: 10 mg Documented By: BRADEN Sodium Chloride (0.9 % Sodium Chloride Flush 3 Ml Syringe) 3 ml IVFLUSH QSHIFT [facility] Last Admin: 08/09/22 09:47 Dose: Not Given Documented By: BRADEN Non-Admin Reason: No Access Topiramate (Topiramate 25 Mg Tablet) 50 mg PO BID [facility] Last Admin: 08/09/22 09:46 Dose: 50 mg Documented By: BRADEN Zolpidem Tartrate (Zolpidem Tartrate 5 Mg Tablet) 5 mg PO BEDTIME PRN PRN Reason: Sleep Last Admin: 08/08/22 20:46 Dose: 5 mg Documented By: KIMILMary Labs CBC & Chem 7: 08/08/22 08:20 08/09/22 11:59 Labs: Laboratory Results - last 24 hr 08/08/22 08/09/22 08/09/22 15:00 05:58 11:59 Estim Creat Clear Calc 119.4 Estimated GFR > 60 Vancomycin Trough < 3.0 L Chlam trachomat DNA PCR NOT DETECTED N.gonorrhoeae DNA (PCR) NOT DETECTED Microbiology Microbiology Results: Microbiology 08/08/22 Unknown Urine Culture - Final Urine clean catch - Urine sheth top Strep agalactiae (Grp B) 08/08/22 10:33 Blood Culture - Preliminary Blood - Venous No growth after 24 hours. 08/08/22 10:33 Blood Culture - Preliminary Blood - Venous No growth after 24 hours. Assessment and Plan (1) Cellulitis of finger of right hand: Status: Acute (2) Thrombocytopenia: Status: Acute Plan 42-year-old female with pertinent history of IV drug use disorder, mood disorder who presents to the emergency department for evaluation of right hand swelling. #. Right hand cellulitis vs local reaction to drug use hand xray: 1.? No acute osseous injury or radiographic evidence of advanced osteomyelitis. 2.? Pronounced dorsal soft tissue swelling about the wrist and hand. No radiodense foreign body or tracking soft tissue gas. swelling and erythema improving hence Multiple attempts of placing IV line including from the ED, floor staff, IR unsuccessful. and swelling is improving- we will try p.o. antibiotics added ortho evaluation noted-more likelylocal reaction to drug use blood culture prelim@24hrs neg switched to po antibiotics #. Polysubstance use disorder -agreed to using cocaine. Previously used heroin. Continue methadone. CARE team and addiction team consulted. #. Mood disorder -continue baseline meds #. Recent admission for rhabdo due to cocaine -CK ordered but pt refused. Resuscitated with IV fluids in the ER. Check CK improved. vaginal itching: Vaginal swab testing ordered- for gonorrhea, chlamydia- neg bacterial vaginosis panel-neg. DVT prophylaxis: Lovenox 40 mg daily ongoing hospitalization need: Hand cellulitis vs localrecation to drug use ,moniter untilblood culture neg 48hrs ,then plan discharge Quality Stroke Does the patient have a stroke diagnosis?: No VTE Prior VTE?: No VTE Risk Level:: Medical - moderate - high VTE Device Contraindication: Treatment Not Indicated VTE Drug Contraindication: N/A - Med Ordered
[2022-08-09 15:01] LABS: BV Int Neg Control Negative (Negative); BV Int Pos Control Positive (Positive)
[2022-08-09] MEDS: 0.9 % Sodium Chloride Flush 3 ML SYRINGE IVFLUSH (15:37)
[2022-08-09] MEDS: Zolpidem Tartrate 5 MG TABLET PO (20:08)
[2022-08-09] MEDS: Enoxaparin Sodium 40 MG/0.4 ML SYRINGE SUBCUT (20:08)
[2022-08-09] MEDS: Fluticasone Propionate Nasal 16 GM SPRAY 1 SPRAY NOSTRIL-B (20:10)
[2022-08-09] MEDS: Melatonin 3 MG TABLET 6 MG PO (23:35)
[2022-08-10 03:42] VITALS: BP 109/64; PULSE 67; RESP 18; TEMP 37.2; O2SAT 97
[2022-08-10] MEDS: Nicotine Polacrilex 2 MG GUM BUCCAL ×5 (03:57→20:49)
[2022-08-10] MEDS: Omeprazole 20 MG CAPSULE.DR PO ×2 (05:36→16:42)
[2022-08-10 07:01] VITALS: BP 133/75; PULSE 68; RESP 18; TEMP 36.1; O2SAT 98
[2022-08-10] MEDS: Topiramate 25 MG TABLET 50 MG PO ×2 (07:56→20:50)
[2022-08-10] MEDS: Amoxicillin/Potassium Clav 875 MG TABLET PO ×2 (07:56→20:49)
[2022-08-10] MEDS: Cyanocobalamin (Vitamin B-12) 1,000 MCG TABLET 1000 MCG PO (07:56)
[2022-08-10] MEDS: clonazePAM 0.5 MG TABLET PO ×2 (07:56→16:41)
[2022-08-10] MEDS: DULoxetine HCl 30 MG CAPSULE.DR PO (07:57)
[2022-08-10] MEDS: Gabapentin 400 MG CAPSULE 800 MG PO ×3 (07:58→20:49)
[2022-08-10] MEDS: Propranolol HCL 10 MG TABLET PO ×2 (07:58→20:50)
[2022-08-10] MEDS: Loratadine 10 MG TABLET PO (07:59)
[2022-08-10] MEDS: Cyclobenzaprine HCl 10 MG TABLET PO ×2 (07:59→16:41)
[2022-08-10] MEDS: hydrOXYzine HCL 50 MG TABLET PO ×2 (07:59→20:49)
[2022-08-10] MEDS: Doxycycline Monohydrate 100 MG CAPSULE PO ×2 (07:59→20:49)
[2022-08-10] MEDS: methADONE HCl 20 MG/2 ML ORAL.CONC 145 MG PO (08:42)
[2022-08-10] MEDS: busPIRone HCl 10 MG TABLET 30 MG PO ×3 (08:44→21:03)
[2022-08-10] MEDS: Fluconazole 150 MG TABLET PO (09:23)
[2022-08-10 10:58] VITALS: BP 139/80; PULSE 70; RESP 16; TEMP 36.1; O2SAT 97
--- NOTE | 2022-08-10 11:49 | HO.PM.IMPN ---
Subjective Subjective Date of Service: 08/10/22 Interval History: hand cellulitis vs local recation to ivdu Review of Systems hand swelling improved significantly ?denies any chest pain or shortness of breath or abdominal pain vaginal itchin Physical Exam Vital Signs: Vital Signs: Last Vital Signs Temp 97 F 08/10/22 10:58 Pulse 70 08/10/22 10:58 Resp 16 08/10/22 10:58 BP 139/80 08/10/22 10:58 Pulse Ox 97 08/10/22 10:58 O2 Del Method 08/10/22 10:58 BMI result Body Mass Index 37.7 ?aox3, not in distress Neck supple, no JVD Regular rate and rhythm, S1-S2 heard Regular breath sounds bilaterally, no wheezing or crackles appreciated Abdomen soft nontender, no guarding, no rigidity. Msk: Multiple IV track delgado seen ; right hand with swelling improivng, no induration Psych: Normal moo Objective Data Active Medications Acetaminophen (Acetaminophen 325 Mg Tablet) 650 mg PO Q6H PRN PRN Reason: Pain, Mild (Pain Scale 1-3) Last Admin: 08/09/22 11:58 Dose: 650 mg Documented By: BRADEN Amoxicillin/Clavulanate Potassium (Amoxicillin/Potassium Clav 875 Mg Tablet) 875 mg PO Q12H [facility] Last Admin: 08/10/22 07:56 Dose: 875 mg Documented By: BRADEN Buspirone HCl (Buspirone Hcl 10 Mg Tablet) 30 mg PO TID [facility] Last Admin: 08/10/22 08:44 Dose: 30 mg Documented By: BARDEN Clonazepam (Clonazepam 0.5 Mg Tablet) 0.5 mg PO BID PRN PRN Reason: Anxiety Last Admin: 08/10/22 07:56 Dose: 0.5 mg Documented By: BRADEN Clotrimazole (Clotrimazole 1 % Cream 15 Gm Tube) 1 appl TOPICAL BID PRN PRN Reason: Rash Cyanocobalamin (Cyanocobalamin (Vitamin B-12) 1,000 Mcg Tablet) 1,000 mcg PO DAILY [facility] Last Admin: 08/10/22 07:56 Dose: 1,000 mcg Documented By: BRADEN Cyclobenzaprine HCl (Cyclobenzaprine Hcl 10 Mg Tablet) 10 mg PO BID PRN PRN Reason: Muscle Spasm Last Admin: 08/10/22 07:59 Dose: 10 mg Documented By: BRADEN Doxycycline Monohydrate (Doxycycline Monohydrate 100 Mg Capsule) 100 mg PO Q12H [facility] Last Admin: 08/10/22 07:59 Dose: 100 mg Documented By: BRADEN Duloxetine HCl (Duloxetine Hcl 30 Mg Capsule.) 30 mg PO DAILY [facility] Last Admin: 08/10/22 07:57 Dose: 30 mg Documented By: BRADEN Enoxaparin Sodium (Enoxaparin Sodium 40 Mg/0.4 Ml Syringe) 40 mg SUBCUT Q24H [facility] Last Admin: 08/09/22 20:08 Dose: 40 mg Documented By: SHAILESH Fluticasone Propionate (Fluticasone Propionate Nasal 16 Gm [place]) 1 spray NOSTRIL-B BID [facility] Last Admin: 08/10/22 11:38 Dose: Not Given Documented By: BRADEN Non-Admin Reason: Patient Refused Gabapentin (Gabapentin 400 Mg Capsule) 800 mg PO TID [facility] Last Admin: 08/10/22 07:58 Dose: 800 mg Documented By: BRADEN Hydroxyzine HCl (Hydroxyzine Hcl 50 Mg Tablet) 50 mg PO BID [facility] Last Admin: 08/10/22 07:59 Dose: 50 mg Documented By: BRADEN Loratadine (Loratadine 10 Mg Tablet) 10 mg PO DAILY [facility] Last Admin: 08/10/22 07:59 Dose: 10 mg Documented By: BRADEN Melatonin (Melatonin 3 Mg Tablet) 6 mg PO BEDTIME PRN PRN Reason: Insomnia Last Admin: 08/09/22 23:35 Dose: 6 mg Documented By: SHAILESH Methadone HCl (Methadone Hcl 20 Mg/2 Ml Oral.Conc) 145 mg PO DAILY [facility] Last Admin: 08/10/22 08:42 Dose: 145 mg Documented By: BRADEN Nicotine Polacrilex (Nicotine Polacrilex 2 Mg Gum) 2 mg BUCCAL Q2H PRN PRN Reason: Nicotine Cravings Last Admin: 08/10/22 07:59 Dose: 2 mg Documented By: BRADEN Omeprazole (Omeprazole 20 Mg Capsule.) 20 mg PO BID@0630,1630 [facility] Last Admin: 08/10/22 05:36 Dose: 20 mg Documented By: SHAILESH Ondansetron HCl (Ondansetron Hcl 4 Mg/2 Ml Vial) 4 mg IVPUSH Q8H PRN PRN Reason: Nausea and Vomiting Pharmacy Consult (Consult Rx Vancomycin Dosing) 1 each MISCELLANE DAILY PRN PRN Reason: Consult order Propranolol HCl (Propranolol Hcl 10 Mg Tablet) 10 mg PO BID [facility]; Protocol Last Admin: 08/10/22 07:58 Dose: 10 mg Documented By: BRADEN Sodium Chloride (0.9 % Sodium Chloride Flush 3 Ml Syringe) 3 ml IVFLUSH QSHIFT [facility] Last Admin: 08/10/22 09:23 Dose: Not Given Documented By: BRADEN Non-Admin Reason: No Access Topiramate (Topiramate 25 Mg Tablet) 50 mg PO BID [facility] Last Admin: 08/10/22 07:56 Dose: 50 mg Documented By: BRADEN Zolpidem Tartrate (Zolpidem Tartrate 5 Mg Tablet) 5 mg PO BEDTIME PRN PRN Reason: Sleep Last Admin: 08/09/22 20:08 Dose: 5 mg Documented By: SHAILESH Labs CBC & Chem 7: 08/08/22 08:20 08/09/22 11:59 Labs: Laboratory Results - last 24 hr 08/08/22 08/09/22 15:50 11:59 Estim Creat Clear Calc 119.4 Estimated GFR > 60 Beverley species DNA Positive A Gardnerella DNA Probe Negative Trichomonas DNA Probe Negative Microbiology Microbiology Results: Microbiology 08/08/22 Unknown Urine Culture - Final Urine clean catch - Urine sheth top Strep agalactiae (Grp B) 08/08/22 10:33 Blood Culture - Preliminary Blood - Venous No growth after 24 hours. 08/08/22 10:33 Blood Culture - Preliminary Blood - Venous No growth after 24 hours. Assessment and Plan (1) Cocaine use: Status: Acute (2) Vaginitis: Status: Acute Plan 42-year-old female with pertinent history of IV drug use disorder, mood disorder who presents to the emergency department for evaluation of right hand swelling. #. Right hand cellulitis vs local reaction to drug use hand xray: 1.? No acute osseous injury or radiographic evidence of advanced osteomyelitis. 2.? Pronounced dorsal soft tissue swelling about the wrist and hand. No radiodense foreign body or tracking soft tissue gas. swelling and erythema improving hence ? Multiple attempts of placing IV line including from the ED, floor staff, IR unsuccessful. ? and swelling is improving- we will try p.o. antibiotics ?added ortho evaluation noted-more likelylocal reaction to drug use blood culture prelim@24hrs neg switched to po antibiotics #. Polysubstance use disorder -agreed to using cocaine. Previously used heroin. Continue methadone. CARE team and addiction team consulted. #. Mood disorder -continue baseline meds #. Recent admission for rhabdo due to cocaine -CK ordered but pt refused. Resuscitated with IV fluids in the ER. Check CK improved. beverley ?vaginitis : ? Vaginal swab testing ordered- for gonorrhea, chlamydia- neg ?bacterial vaginosis panel-has acadida sp positive -added fluconazole added hiv and syphllis screen -patient requested DVT prophylaxis: Lovenox 40 mg daily ongoing? hospitalization need:? awiting placement to drug program Quality Stroke Does the patient have a stroke diagnosis?: No VTE Prior VTE?: No VTE Risk Level:: Medical - moderate - high VTE Device Contraindication: Treatment Not Indicated VTE Drug Contraindication: N/A - Med Ordered
--- NOTE | 2022-08-10 13:31 | PC.NURSE ---
Pt is requesting to speak with provider regarding medication scheduling in general. Frequently agitated, speaking quickly, reports she doesn't feel like she's getting all of her medications or the usual effects of the medications like she does at home. Is restful appearing when entering the room. Pt Is asking as well about adding in PRN hydroxyzine to the already scheduled hydroxyzine. States would like to maybe switch or get baclofen for my flexeril, you know how I take flexeril, I heard it helps with cocaine cravings, I want to change to that . [facility] text sent to Dr Ryan Deshpande, who will connect with care team to review chart as well. This RN spoke with Leesa from the care team on the phone who states that Abbie is aware of the patient and provided Abbie's ext, this RN shared that Ext with Dr Deshpande to coordinate care.
--- NOTE | 2022-08-10 14:53 | MHC.RECOVSUP ---
? Reason for consult Recovery support o Current location: 350[address] o Identified substance use concern: Heroin/ cocaine - Support ? Intervention: o Community resources provided o Harm reduction discussion ? Plan: o Follow up tomorrow o Patient to follow up with [facility] after discharge ? Additional information: Met with Patient we talk about Harm Reduction and recovery.. Patient stated that she [facility]
[2022-08-10 15:01] VITALS: BP 130/72; PULSE 64; RESP 18; TEMP 36.7; O2SAT 92
[2022-08-10 20:00] VITALS: BP 128/62; PULSE 68; RESP 18; TEMP 36.5; O2SAT 97
[2022-08-10] MEDS: Melatonin 3 MG TABLET 6 MG PO (20:49)
[2022-08-10] MEDS: Zolpidem Tartrate 5 MG TABLET PO (20:50)
[2022-08-10] MEDS: Fluticasone Propionate Nasal 16 GM SPRAY 1 SPRAY NOSTRIL-B (21:03)
[2022-08-10 23:42] VITALS: BP 131/72; PULSE 70; RESP 18; TEMP 36.1; O2SAT 97
[2022-08-11] MEDS: Nicotine Polacrilex 2 MG GUM BUCCAL ×4 (00:31→13:14)
[2022-08-11 03:57] VITALS: BP 129/69; PULSE 68; RESP 18; TEMP 36.6; O2SAT 98
[2022-08-11 05:01] LABS: Syphilis Screen Nonreactive (Nonreactive)
[2022-08-11 05:06] LABS: HIV AB/AG Nonreactive (Nonreactive); HIV Num 1 0.06 S/CO (0.00-0.99)
[2022-08-11] MEDS: Cyclobenzaprine HCl 10 MG TABLET PO (06:10)
[2022-08-11] MEDS: Omeprazole 20 MG CAPSULE.DR PO (06:10)
[2022-08-11] MEDS: clonazePAM 0.5 MG TABLET PO (06:24)
[2022-08-11] MEDS: Propranolol HCL 10 MG TABLET PO (07:20)
[2022-08-11] MEDS: Amoxicillin/Potassium Clav 875 MG TABLET PO (07:20)
[2022-08-11] MEDS: Doxycycline Monohydrate 100 MG CAPSULE PO (07:21)
[2022-08-11] MEDS: hydrOXYzine HCL 50 MG TABLET PO (07:21)
[2022-08-11] MEDS: Loratadine 10 MG TABLET PO (07:21)
[2022-08-11] MEDS: Cyanocobalamin (Vitamin B-12) 1,000 MCG TABLET 1000 MCG PO (07:21)
[2022-08-11] MEDS: DULoxetine HCl 30 MG CAPSULE.DR PO (07:21)
[2022-08-11] MEDS: Topiramate 25 MG TABLET 50 MG PO (07:21)
[2022-08-11] MEDS: Gabapentin 400 MG CAPSULE 800 MG PO ×2 (07:21→13:46)
[2022-08-11] MEDS: busPIRone HCl 10 MG TABLET 30 MG PO ×2 (07:21→13:46)
[2022-08-11] MEDS: methADONE HCl 20 MG/2 ML ORAL.CONC 145 MG PO (07:22)
--- NOTE | 2022-08-11 07:59 | PC.NURSE ---
LATE ENTRY 08/08/2022 PT RECEIVED 145MG METHADONE 15MG WASTED
[2022-08-11 08:00] VITALS: BP 135/62; PULSE 77; RESP 18; TEMP 36.8; O2SAT 96
--- NOTE | 2022-08-11 10:17 | MHC.RECOVRN ---
Addendum entered by Miguelina Solano 08/11/22 10:38: Per [facility], these facilities had availability within the past few hours. [facility]-no beds [facility]-no beds, on waitlist. Bed available Thursday. [facility]- awaiting return call [facility]- awaiting return call [facility]- awaiting return call Original Note: Pt interested in [facility]. Referral sent to [facility], [facility], [facility], [facility], and [facility].
--- NOTE | 2022-08-11 11:22 | HO.PM.IMPN ---
Subjective Subjective Date of Service: 08/11/22 Interval History: hand cellulitis vs local recation to ivdu Review of Systems hand swelling improved significantly ?denies any chest pain or shortness of breath or abdominal pain vaginal itchin seems improving Physical Exam Vital Signs: Vital Signs: Last Vital Signs Temp 98.3 F 08/11/22 08:00 Pulse 77 08/11/22 08:00 Resp 18 08/11/22 08:00 BP 135/62 08/11/22 08:00 Pulse Ox 96 08/11/22 08:00 O2 Del Method 08/11/22 08:00 BMI result Body Mass Index 37.7 ?aox3, not in distress Neck supple, no JVD Regular rate and rhythm, S1-S2 heard Regular breath sounds bilaterally, no wheezing or crackles appreciated Abdomen soft nontender, no guarding, no rigidity. Msk: Multiple IV track delgado seen ; right hand with swelling improved significantly, no induration Psych: Normal mood. Objective Data Active Medications Acetaminophen (Acetaminophen 325 Mg Tablet) 650 mg PO Q6H PRN PRN Reason: Pain, Mild (Pain Scale 1-3) Last Admin: 08/09/22 11:58 Dose: 650 mg Documented By: BRADEN Amoxicillin/Clavulanate Potassium (Amoxicillin/Potassium Clav 875 Mg Tablet) 875 mg PO Q12H [facility] Last Admin: 08/11/22 07:20 Dose: 875 mg Documented By: COLEEN Buspirone HCl (Buspirone Hcl 10 Mg Tablet) 30 mg PO TID [facility] Last Admin: 08/11/22 07:21 Dose: 30 mg Documented By: COLEEN Clonazepam (Clonazepam 0.5 Mg Tablet) 0.5 mg PO BID PRN PRN Reason: Anxiety Last Admin: 08/11/22 06:24 Dose: 0.5 mg Documented By: CHERYLE Clotrimazole (Clotrimazole 1 % Cream 15 Gm Tube) 1 appl TOPICAL BID PRN PRN Reason: Rash Cyanocobalamin (Cyanocobalamin (Vitamin B-12) 1,000 Mcg Tablet) 1,000 mcg PO DAILY [facility] Last Admin: 08/11/22 07:21 Dose: 1,000 mcg Documented By: COLEEN Cyclobenzaprine HCl (Cyclobenzaprine Hcl 10 Mg Tablet) 10 mg PO BID PRN PRN Reason: Muscle Spasm Last Admin: 08/11/22 06:10 Dose: 10 mg Documented By: CHERYLE Doxycycline Monohydrate (Doxycycline Monohydrate 100 Mg Capsule) 100 mg PO Q12H [facility] Last Admin: 08/11/22 07:21 Dose: 100 mg Documented By: COLEEN Duloxetine HCl (Duloxetine Hcl 30 Mg Capsule.) 30 mg PO DAILY [facility] Last Admin: 08/11/22 07:21 Dose: 30 mg Documented By: COLEEN Enoxaparin Sodium (Enoxaparin Sodium 40 Mg/0.4 Ml Syringe) 40 mg SUBCUT Q24H [facility] Last Admin: 08/10/22 20:52 Dose: Not Given Documented By: CHERYLE Non-Admin Reason: Patient Refused Fluticasone Propionate (Fluticasone Propionate Nasal 16 Gm [place]) 1 spray NOSTRIL-B BID [facility] Last Admin: 08/11/22 07:26 Dose: Not Given Documented By: OCLEEN Non-Admin Reason: Patient Refused Gabapentin (Gabapentin 400 Mg Capsule) 800 mg PO TID [facility] Last Admin: 08/11/22 07:21 Dose: 800 mg Documented By: COLEEN Hydroxyzine HCl (Hydroxyzine Hcl 50 Mg Tablet) 50 mg PO BID [facility] Last Admin: 08/11/22 07:21 Dose: 50 mg Documented By: COLEEN Loratadine (Loratadine 10 Mg Tablet) 10 mg PO DAILY [facility] Last Admin: 08/11/22 07:21 Dose: 10 mg Documented By: COLEEN Melatonin (Melatonin 3 Mg Tablet) 6 mg PO BEDTIME PRN PRN Reason: Insomnia Last Admin: 08/10/22 20:49 Dose: 6 mg Documented By: CHERYLE Methadone HCl (Methadone Hcl 20 Mg/2 Ml Oral.Conc) 145 mg PO DAILY [facility] Last Admin: 08/11/22 07:22 Dose: 145 mg Documented By: COLEEN Nicotine Polacrilex (Nicotine Polacrilex 2 Mg Gum) 2 mg BUCCAL Q2H PRN PRN Reason: Nicotine Cravings Last Admin: 08/11/22 10:30 Dose: 2 mg Documented By: COLEEN Omeprazole (Omeprazole 20 Mg Capsule.) 20 mg PO BID@0630,1630 [facility] Last Admin: 08/11/22 06:10 Dose: 20 mg Documented By: CHERYLE Ondansetron HCl (Ondansetron Hcl 4 Mg/2 Ml Vial) 4 mg IVPUSH Q8H PRN PRN Reason: Nausea and Vomiting Pharmacy Consult (Consult Rx Vancomycin Dosing) 1 each MISCELLANE DAILY PRN PRN Reason: Consult order Propranolol HCl (Propranolol Hcl 10 Mg Tablet) 10 mg PO BID [facility]; Protocol Last Admin: 08/11/22 07:20 Dose: 10 mg Documented By: COLEEN Sodium Chloride (0.9 % Sodium Chloride Flush 3 Ml Syringe) 3 ml IVFLUSH QSHIFT [facility] Last Admin: 08/11/22 07:29 Dose: Not Given Documented By: COLEEN Non-Admin Reason: No Access Topiramate (Topiramate 25 Mg Tablet) 50 mg PO BID [facility] Last Admin: 08/11/22 07:21 Dose: 50 mg Documented By: COLEEN Zolpidem Tartrate (Zolpidem Tartrate 5 Mg Tablet) 5 mg PO BEDTIME PRN PRN Reason: Sleep Last Admin: 08/10/22 20:50 Dose: 5 mg Documented By: CHERYLE Labs CBC & Chem 7: 08/08/22 08:20 08/09/22 11:59 Labs: Laboratory Results - last 24 hr 08/10/22 08/10/22 09:51 09:51 T.pallidum Ab (EIA) Nonreactive HIV 1&2 Ab/P24 Ag 4thGn Nonreactive Microbiology Microbiology Results: Microbiology 08/08/22 10:33 Blood Culture - Preliminary Blood - Venous No growth after 48 hours. 08/08/22 10:33 Blood Culture - Preliminary Blood - Venous No growth after 48 hours. Assessment and Plan (1) Vaginitis: Status: Acute (2) Cellulitis of finger of right hand: Status: Acute Plan 42-year-old female with pertinent history of IV drug use disorder, mood disorder who presents to the emergency department for evaluation of right hand swelling. #. Right hand cellulitis vs local reaction to drug use hand xray: 1.? No acute osseous injury or radiographic evidence of advanced osteomyelitis. 2.? Pronounced dorsal soft tissue swelling about the wrist and hand. No radiodense foreign body or tracking soft tissue gas. swelling and erythema improving hence ? Multiple attempts of placing IV line including from the ED, floor staff, IR unsuccessful. ? and swelling is improving- we will try p.o. antibiotics ?added ortho evaluation noted-more likelylocal reaction to drug use blood culture prelim@24hrs neg switched to po antibiotics #. Polysubstance use disorder -agreed to using cocaine. Previously used heroin. Continue methadone. CARE team and addiction team consulted. #. Mood disorder -continue baseline meds #. Recent admission for rhabdo due to cocaine -CK ordered but pt refused. Resuscitated with IV fluids in the ER. Check CK improved. aj ?vaginitis : ? Vaginal swab testing ordered- for gonorrhea, chlamydia- neg ?bacterial vaginosis panel-has acadida sp positive -added fluconazole added hiv and syphllis screen -neg DVT prophylaxis: Lovenox 40 mg daily ongoing? hospitalization need:? awaiting placement to drug program Quality Stroke Does the patient have a stroke diagnosis?: No VTE Prior VTE?: No VTE Risk Level:: Medical - moderate - high VTE Device Contraindication: Treatment Not Indicated VTE Drug Contraindication: N/A - Med Ordered
[2022-08-11 12:00] VITALS: BP 111/68; PULSE 83; RESP 19; TEMP 36.5; O2SAT 97
[2022-08-11] MEDS: hydrOXYzine HCL 25 MG TABLET PO (12:27)
--- NOTE | 2022-08-11 13:54 | MHC.RECOVRN ---
Addendum entered by Miguelina Solano 08/11/22 13:55: [facility] does not have availability today for [facility]. Aware pt may discharge and seek ATS this evening or tomorrow. Original Note: [facility] [place]-no beds. [facility] is reviewing pt for possible [facility] bed. Awaiting call back.
--- NOTE | 2022-08-11 14:21 | PM.DS ---
DS: Providers Provider Date of Service: 08/11/22 Date of admission: 08/07/22 20:44 Primary care physician: Cici Corey MD Consults: 08/07/22 20:44 Addiction Medicine Routine Consulting Provider: Addiction Covering Reason for consultation: cocaine use Consult to Care Team Routine Comment: Reason for consultation: cocaine use 08/08/22 09:01 Consult to Orthopedics Routine Consulting Provider: Laurence Cano Reason for consultation: hand cellulitis/ivdu Has provider been notified: No 08/08/22 14:41 Addiction Medicine Routine Consulting Provider: Addiction Covering Reason for consultation: substance use Has provider been notified: No DS: Diagnosis Discharge Diagnosis (1) Vaginitis: Status: Acute (2) Cellulitis of finger of right hand: Status: Acute (3) Leucopenia: Status: Acute (4) Thrombocytopenia: Status: Acute (5) Cocaine abuse: Status: Acute DS: Summary Hospital Course Hospital Course: 42-year-old female with pertinent history of IV drug use disorder, mood disorder who presents to the emergency department for evaluation of right hand swelling.? Patient was admitted on 08/04 with rhabdomyolysis secondary to cocaine use and cellulitis requiring IV antibiotics but patient left against medical advice on 08/06.? Patient states her right hand swelling, redness was improving with IV antibiotics.? She left AMA and tried to inject cocaine in her right hand.? Since then, she has been having increasing right hand pain, swelling and tenderness.? Patient states the swelling has been getting progressively worse with redness. Mild difficulty forming a fist .? Does have associated subjective fevers and chills.? Also endorses nausea. no discharge from the hand.? Patient denies chest discomfort, palpitations, shortness of breath, changes in urinary or bowel habits In the ER,? Right hand cellulitis noted. hospital course: Patient was admitted for possible right hand cellulitis at the site of cocaine injection- started on IV antibiotics and subsequently switched to p.o. antibiotics- seen by Ortho her hand swelling: seems more favor local reaction to cocaine rather than cellulitis patient was given the benefit of doubt and given p.o. antibiotic for superficial cellulitis Concern. In addition patient had Beverley vaginitis for which patient was given fluconazole. Patient did not wait for physician earlier saw her today she was waiting for drug program placement but she left against medical advise And she did not wait for seeing MD.- her antibiotics sent to her pharmacy. Time Spent with Patient Time attestation: Total time spent providing and/or coordinating discharge services: Discharge coordination time: Greater than 30 minutes Quality: Safe Use of Opioids Does Pt have an Active Cancer Diagnosis on the Problem List?: No Quality: Stroke Does the patient have a stroke diagnosis?: No Physical Exam Vital Signs: Vital Signs: Last Vital Signs Temp 97.7 F 08/11/22 12:00 Pulse 83 08/11/22 12:00 Resp 19 08/11/22 12:00 BP 111/68 08/11/22 12:00 Pulse Ox 97 08/11/22 12:00 O2 Del Method 08/11/22 12:00 BMI result Body Mass Index 37.7 ??aox3, not in distress Neck supple, no JVD Regular rate and rhythm, S1-S2 heard Regular breath sounds bilaterally, no wheezing or crackles appreciated Abdomen soft nontender, no guarding, no rigidity. Msk: right hand with swelling improved significantly, no induration(when seen this morning) Psych: Normal mood. DS: Data Data Completed and Pending Completed studies during hospitalization [Text1]: Procedures Drainage of Right Upper Arm Subcutaneous Tissue and Fascia, Open Approach (04/03/21) Insertion of Infusion Device into Left Basilic Vein, Percutaneous Approach (04/21/21) Insertion of Infusion Device into Left Brachial Vein, Percutaneous Approach (01/03/21) Labs on day of discharge: Laboratory Results - last 24 hr 08/10/22 08/10/22 09:51 09:51 T.pallidum Ab (EIA) Nonreactive HIV 1&2 Ab/P24 Ag 4thGn Nonreactive Preliminary micro results at discharge 08/08/22 10:33 Blood Culture - Preliminary Blood - Venous No growth after 48 hours. 08/08/22 10:33 Blood Culture - Preliminary Blood - Venous No growth after 48 hours. Imaging Chest x-ray: Radiologist's impression: ITS Impressions Hand X-Ray 08/07/22 21:10 IMPRESSION: 1. No acute osseous injury or radiographic evidence of advanced osteomyelitis. 2. Pronounced dorsal soft tissue swelling about the wrist and hand. No radiodense foreign body or tracking soft tissue gas. Discharge Plan Discharge Patient Disposition: Left Against Medical Advice Discharge Diagnosis: possible mild hand Cellulitis versus local reaction to cocaine use, vaginitis Referrals: Cici Corey MD [Primary Care Provider] - 1 Week Discharge Medications: New amoxicillin-pot clavulanate 875-125 mg Tablet 875 mg PO Q12H Qty: 10 0RF doxycycline monohydrate 100 mg Capsule 100 mg PO Q12H Qty: 10 0RF Continued acetaminophen 325 mg tablet 650 mg PO DAILY PRN (Reason: Pain) clonazepam 0.5 mg tablet 0.5 mg PO BID PRN (Reason: Anxiety) hydroxyzine HCl 50 mg tablet 50 mg PO BID gabapentin 800 mg tablet 800 mg PO TID zolpidem 5 mg tablet 5 mg PO BEDTIME PRN (Reason: Sleep) ketoconazole 2 % cream 1 applic topical BID PRN (Reason: Rash) fluticasone propionate 50 mcg/actuation spray,suspension 1 spray intranasal BID topiramate 50 mg tablet 50 mg PO BID duloxetine 30 mg capsule,delayed release(DR/EC) 30 mg PO DAILY buspirone 10 mg tablet 3 tab PO TID cyclobenzaprine 10 mg tablet 10 mg PO BID PRN (Reason: Muscle Spasm) cyanocobalamin (vitamin B-12) 1,000 mcg tablet 1,000 mcg PO DAILY propranolol 10 mg tablet 10 mg PO BID loratadine 10 mg tablet 10 mg PO DAILY methadone [Methadose] 10 mg/mL concentrate 145 mg PO DAILY Rx Instructions: Partial Fill upon patient request. Discharge Orders: Discharge Order (Routine); Ordered 08/11/22 Ordered By: Poli Deshpande Diet: Advance to usual diet Activity on Discharge: As tolerated Care Plan Goals: patient left against Medical advice. Health Concerns: As above. Plan of Treatment: As above. Assessment: As above. Discharge Date/Time: 08/11/22 14:22
== END 2022-08-11 14:22 | disposition left against medical advice (07) | DRG 383 ==
LOC: HO.ED 19:31 → HO.EDOVER 21:13 → HO.S3 08-08 12:09
PROVIDERS: Admitting Provider Student in an Organized Health Care Education/Training Program; Emergency Provider Emergency Medicine; PCP Internal Medicine; Visit Provider Internal Medicine
DX: L03.011 Cellulitis of right finger (principal); D69.6 Thrombocytopenia, unspecified; B37.31 Acute candidiasis of vulva and vagina; F11.20 Opioid dependence, uncomplicated; F31.9 Bipolar disorder, unspecified; D72.819 Decreased white blood cell count, unspecified; F43.12 Post-traumatic stress disorder, chronic; Z20.822 Contact with and (suspected) exposure to COVID-19; Z87.891 Personal history of nicotine dependence; Z88.2 Allergy status to sulfonamides; Z88.8 Allergy status to other drugs, medicaments and biological substances; Z91.013 Allergy to seafood; Z79.51 Long term (current) use of inhaled steroids; Z79.899 Other long term (current) drug therapy
CPT/HCPCS: 36415; 73120; 80048; 80202; 80307; 81001; 81003; 82550; 82565; 83605; 85007; 85025; 85027; 86140; 86780; 87040; 87086; 87147; 87389; 87480; 87491; 87510; 87591; 87635; 87660; 93005; 99285; J1650; J2543; J3370

== ENCOUNTER 2022-08-12 10:44 | Emergency (ER) | payer OTHER, SELFPAY ==
[2022-08-12 11:41] VITALS: BP 109/69; PULSE 79; RESP 16; TEMP 36.2; O2SAT 96; BMI 35.5
--- NOTE | 2022-08-12 12:10 | HE.PHANOTE ---
Methadone Verification Recieved Done by APOLONIA Duncan with [facility], last dose was 145mg today 08/12/22, confirmed with Li at clinic
[2022-08-12 12:16] LABS: MANUAL DIFF FLAG NO
[2022-08-12 12:21] LABS: UPreg QC Valid YES; Urine Pregnancy NEGATIVE (NEGATIVE)
[2022-08-12 12:28] LABS: Basophils Percent Auto 0.4 % (0-2); Eosinophils Absolute Auto 0.1 X10*3/uL (0.0-0.4); Eosinophils Percent Auto 2.2 % (0-4); Hemoglobin 12.7 g/dl (12.0-16.0); Imm Gran Abs Auto 0.01 X10*3/uL (0.00-0.03); Imm Gran Pct Auto 0.2 % (0.0-0.4); Lymphocytes Absolute Auto 1.9 X10*3/uL (1.2-4.9); Lymphocytes Percent Auto 35.1 % (20-40); Mean Corpuscular HGB Conc 33.4 g/dl (31.0-35.0); Mean Corpuscular Hemoglobin 29.7 pg (27.0-33.0); Mean Corpuscular Volume 88.8 fL (80.0-98.0); Mean Platelet Volume 10.4 fL (9.4-12.3); Monocytes Absolute Auto 0.5 X10*3/uL (0.1-1.2); Monocytes Percent Auto 8.3 % (2-11); Neutrophils Absolute Auto 2.9 x10*3/uL (2.0-8.3); Neutrophils Percent Auto 53.8 % (45-73); Platelet Count 134 X10*3/uL (160-400); Red Blood Count 4.28 X10*6/uL (4.20-5.50); Red Cell Distribution Width 13.1 % (11.0-16.0); White Blood Count 5.4 X10*3/uL (4.8-10.8)
[2022-08-12 12:29] LABS: Amphetamine Screen Urine Not Detected (Not Detect); Barbiturates, Urine Not Detected (Not Detect); Benzodiazepines Screen Urine Not Detected (Not Detect); Cannabinoid Screen Urine Not Detected (Not Detect); Cocaine Screen Urine POSITIVE (Not Detect); Fentanyl, urine POSITIVE (Not Detect); Opiate Screen Urine Not Detected (Not Detect); Phencyclidine Screen Urine Not Detected (Not Detect)
[2022-08-12 12:33] LABS: COVID-19 Test Negative (Negative); IDNOW Serial# 55D5AD1C
[2022-08-12 12:36] LABS: Alanine Aminotransferase 65 U/L (0-31); Albumin Level 4.3 g/dL (3.5-5.0); Alkaline Phosphatase 83 U/L (39-117); Anion Gap 14 (12-20); Aspartate Amino Transferase 61 U/L (5-31); Bilirubin Total 0.7 mg/dL (0.0-1.0); Blood Urea Nitrogen 17 mg/dL (9-16); Calcium 9.2 mg/dL (8.4-10.2); Carbon Dioxide 25 mmol/L (22-29); Chloride 102 mmol/L (96-108); Creatinine Clr Calc Pharmacy 123.9; Estimated Glomerular Filt Rate > 60; Ethanol < 10 mg/dL; Glucose Random 138 mg/dL (60-115); Potassium 3.8 mmol/L (3.3-5.1); Sodium 137 mmol/L (135-145); Total Protein 7.2 g/dL (6.5-8.0)
--- NOTE | 2022-08-12 19:27 | MHC.CARE ---
CARE team met with pt to assess level of risk for harming self or others. Pt is a 42 year old female who is known to the CARE team and recovery support team. Pt arrived to the ED this afternoon seeking detox and also disclosed that she has been experiencing thoughts of and suicide via cutting her throat with a crack pipe or intentional drug overdose. Pt was discharged from the medical floor yesterday and had been seen by the recovery team during her admission over the weekend. She was referred to [facility], however there were no beds available. Pt is chronically homeless and has been struggling with opiate and cocaine addiction on and off for many years. She has a history of psychiatric admissions and substance use disorder treatment via detox, CSS/TSS, and residential recovery homes. This underwriter mortgage loan met with pt in the pod room 1. She was alert and oriented, dressed in hospital attire, hygiene and grooming were poor, and she was lethargic but engaging. She presented with depressed mood and congruent affect, tearful, appropriate eye contact, speech was clear with even tone and rhythm, and there was no behavioral agitation observed. She reported that she has been struggling with depression and thoughts of suicide for a long time. Pt spoke about her frustration with herself and her long struggle with recovery and stabilization. She stated that she doesn't want to and doesn't want to hurt herself, and that she is hopeful that things will get better, however she often feels that she can't handle living like this anymore. She is advocating for recovery treatment and does not feel that she needs any psychiatric stabilization at this time. Pt's level of risk for harm is moderate in the context of her chronic substance use and housing instability. Pt does not require further psychiatric assessment or stabilization at this time and will be referred to the recovery support team for referral and discharge planning.
--- NOTE | 2022-08-12 19:46 | ED.PSYCH ---
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 (Auto) 53.8 (45-73) % Lymph % (Auto) 35.1 (20-40) % [place] % (Auto) 8.3 (2-11) % Eos % (Auto) 2.2 (0-4) % Baso % (Auto) 0.4 (0-2) % Lymph # (Auto) 1.9 (1.2-4.9) X10*3/uL [place] # (Auto) 0.5 (0.1-1.2) X10*3/uL Eos # (Auto) 0.1 (0.0-0.4) X10*3/uL Baso # (Auto) 0.0 (0.0-0.2) X10*3/uL Abs Immat Gran (auto) 0.01 (0.00-0.03) X10*3/uL Absolute Neuts (auto) 2.9 (2.0-8.3) x10*3/uL Absolute Nucleated RBC 0.000 (0.0-0.012) X10*3/uL Nucleated RBC % (auto) 0.0 (0.0-0.2) /100WBC Sodium (135-145) mmol/L Potassium (3.3-5.1) mmol/L Chloride (96-108) mmol/L Carbon Dioxide (22-29) mmol/L Anion Gap (12-20) BUN (9-16) mg/dL Creatinine (0.5-1.4) mg/dL Estim Creat Clear Calc Estimated GFR Random Glucose (60-115) mg/dL Calcium (8.4-10.2) mg/dL Total Bilirubin (0.0-1.0) mg/dL AST (5-31) U/L ALT (0-31) U/L Alkaline Phosphatase (39-117) U/L Total Protein (6.5-8.0) g/dL Albumin (3.5-5.0) g/dL Urine Test NEGATIVE (NEGATIVE) Urine Opiates Screen Not Detected (Not Detect) Urine Fentanyl Screen POSITIVE H (Not Detect) Ur Barbiturates Screen Not Detected (Not Detect) Ur Phencyclidine Scrn Not Detected (Not Detect) Ur Amphetamines Screen Not Detected (Not Detect) U Benzodiazepines Scrn Not Detected (Not Detect) Urine Cocaine Screen POSITIVE H (Not Detect) U Marijuana (THC) Screen Not Detected (Not Detect) Ethyl Alcohol mg/dL COVID-19 (ZACK) (Negative) COVID-19 Clin Com 08/12/22 08/12/22 08/15/22 Range/Units 12:08 12:10 09:51 WBC (4.8-10.8) X10*3/uL RBC (4.20-5.50) X10*6/uL Hgb (12.0-16.0) g/dl Hct (37.0-47.0) % MCV (80.0-98.0) fL MCH (27.0-33.0) pg MCHC (31.0-35.0) g/dl RDW (11.0-16.0) % Plt Count (160-400) X10*3/uL MPV (9.4-12.3) fL Immature Gran % (Auto) (0.0-0.4) % Neut % (Auto) (45-73) % Lymph % (Auto) (20-40) % [place] % (Auto) (2-11) % Eos % (Auto) (0-4) % Baso % (Auto) (0-2) % Lymph # (Auto) (1.2-4.9) X10*3/uL [place] # (Auto) (0.1-1.2) X10*3/uL Eos # (Auto) (0.0-0.4) X10*3/uL Baso # (Auto) (0.0-0.2) X10*3/uL Abs Immat Gran (auto) (0.00-0.03) X10*3/uL Absolute Neuts (auto) (2.0-8.3) x10*3/uL Absolute Nucleated RBC (0.0-0.012) X10*3/uL Nucleated RBC % (auto) (0.0-0.2) /100WBC Sodium 137 (135-145) mmol/L Potassium 3.8 (3.3-5.1) mmol/L Chloride 102 (96-108) mmol/L Carbon Dioxide 25 (22-29) mmol/L Anion Gap 14 (12-20) BUN 17 H D (9-16) mg/dL Creatinine 0.69 (0.5-1.4) mg/dL Estim Creat Clear Calc 123.9 Estimated GFR > 60 Random Glucose 138 H (60-115) mg/dL Calcium 9.2 D (8.4-10.2) mg/dL Total Bilirubin 0.7 (0.0-1.0) mg/dL AST 61 H (5-31) U/L ALT 65 H (0-31) U/L Alkaline Phosphatase 83 (39-117) U/L Total Protein 7.2 (6.5-8.0) g/dL Albumin 4.3 (3.5-5.0) g/dL Urine Test (NEGATIVE) Urine Opiates Screen (Not Detect) Urine Fentanyl Screen (Not Detect) Ur Barbiturates Screen (Not Detect) Ur Phencyclidine Scrn (Not Detect) Ur Amphetamines Screen (Not Detect) U Benzodiazepines Scrn (Not Detect) Urine Cocaine Screen (Not Detect) U Marijuana (THC) Screen (Not Detect) Ethyl Alcohol < 10 mg/dL COVID-19 (ZACK) Negative Negative (Negative) COVID-19 Clin Com See Note See Note <Tulio Silverman MD - Last Filed: 08/14/22 07:14> Lab Results 08/12/22 08/12/22 08/12/22 Range/Units 11:53 11:53 12:08 WBC 5.4 (4.8-10.8) X10*3/uL RBC 4.28 (4.20-5.50) X10*6/uL Hgb 12.7 (12.0-16.0) g/dl Hct 38.0 (37.0-47.0) % MCV 88.8 (80.0-98.0) fL MCH 29.7 (27.0-33.0) pg MCHC 33.4 (31.0-35.0) g/dl RDW 13.1 (11.0-16.0) % Plt Count 134 L (160-400) X10*3/uL MPV 10.4 (9.4-12.3) fL Immature Gran % (Auto) 0.2 (0.0-0.4) % Neut % (Auto) 53.8 (45-73) % Lymph % (Auto) 35.1 (20-40) % [place] % (Auto) 8.3 (2-11) % Eos % (Auto) 2.2 (0-4) % Baso % (Auto) 0.4 (0-2) % Lymph # (Auto) 1.9 (1.2-4.9) X10*3/uL [place] # (Auto) 0.5 (0.1-1.2) X10*3/uL Eos # (Auto) 0.1 (0.0-0.4) X10*3/uL Baso # (Auto) 0.0 (0.0-0.2) X10*3/uL Abs Immat Gran (auto) 0.01 (0.00-0.03) X10*3/uL Absolute Neuts (auto) 2.9 (2.0-8.3) x10*3/uL Absolute Nucleated RBC 0.000 (0.0-0.012) X10*3/uL Nucleated RBC % (auto) 0.0 (0.0-0.2) /100WBC Sodium (135-145) mmol/L Potassium (3.3-5.1) mmol/L Chloride (96-108) mmol/L Carbon Dioxide (22-29) mmol/L Anion Gap (12-20) BUN (9-16) mg/dL Creatinine (0.5-1.4) mg/dL Estim Creat Clear Calc Estimated GFR Random Glucose (60-115) mg/dL Calcium (8.4-10.2) mg/dL Total Bilirubin (0.0-1.0) mg/dL AST (5-31) U/L ALT (0-31) U/L Alkaline Phosphatase (39-117) U/L Total Protein (6.5-8.0) g/dL Albumin (3.5-5.0) g/dL Urine Test NEGATIVE (NEGATIVE) Urine Opiates Screen Not Detected (Not Detect) Urine Fentanyl Screen POSITIVE H (Not Detect) Ur Barbiturates Screen Not Detected (Not Detect) Ur Phencyclidine Scrn Not Detected (Not Detect) Ur Amphetamines Screen Not Detected (Not Detect) U Benzodiazepines Scrn Not Detected (Not Detect) Urine Cocaine Screen POSITIVE H (Not Detect) U Marijuana (THC) Screen Not Detected (Not Detect) Ethyl Alcohol mg/dL COVID-19 (ZACK) (Negative) COVID-19 Clin Com 08/12/22 08/12/22 08/15/22 Range/Units 12:08 12:10 09:51 WBC (4.8-10.8) X10*3/uL RBC (4.20-5.50) X10*6/uL Hgb (12.0-16.0) g/dl Hct (37.0-47.0) % MCV (80.0-98.0) fL MCH (27.0-33.0) pg MCHC (31.0-35.0) g/dl RDW (11.0-16.0) % Plt Count (160-400) X10*3/uL MPV (9.4-12.3) fL Immature Gran % (Auto) (0.0-0.4) % Neut % (Auto) (45-73) % Lymph % (Auto) (20-40) % [place] % (Auto) (2-11) % Eos % (Auto) (0-4) % Baso % (Auto) (0-2) % Lymph # (Auto) (1.2-4.9) X10*3/uL [place] # (Auto) (0.1-1.2) X10*3/uL Eos # (Auto) (0.0-0.4) X10*3/uL Baso # (Auto) (0.0-0.2) X10*3/uL Abs Immat Gran (auto) (0.00-0.03) X10*3/uL Absolute Neuts (auto) (2.0-8.3) x10*3/uL Absolute Nucleated RBC (0.0-0.012) X10*3/uL Nucleated RBC % (auto) (0.0-0.2) /100WBC Sodium 137 (135-145) mmol/L Potassium 3.8 (3.3-5.1) mmol/L Chloride 102 (96-108) mmol/L Carbon Dioxide 25 (22-29) mmol/L Anion Gap 14 (12-20) BUN 17 H D (9-16) mg/dL Creatinine 0.69 (0.5-1.4) mg/dL Estim Creat Clear Calc 123.9 Estimated GFR > 60 Random Glucose 138 H (60-115) mg/dL Calcium 9.2 D (8.4-10.2) mg/dL Total Bilirubin 0.7 (0.0-1.0) mg/dL AST 61 H (5-31) U/L ALT 65 H (0-31) U/L Alkaline Phosphatase 83 (39-117) U/L Total Protein 7.2 (6.5-8.0) g/dL Albumin 4.3 (3.5-5.0) g/dL Urine Test (NEGATIVE) Urine Opiates Screen (Not Detect) Urine Fentanyl Screen (Not Detect) Ur Barbiturates Screen (Not Detect) Ur Phencyclidine Scrn (Not Detect) Ur Amphetamines Screen (Not Detect) U Benzodiazepines Scrn (Not Detect) Urine Cocaine Screen (Not Detect) U Marijuana (THC) Screen (Not Detect) Ethyl Alcohol < 10 mg/dL COVID-19 (ZACK) Negative Negative (Negative) COVID-19 Clin Com See Note See Note <Sukhdev Palacios MD - Last Filed: 08/15/22 16:46> Discharge Plan Discharge Clinical Impression: Substance abuse, Bipolar disorder <Leonidas Butcher MD - Last Filed: 08/12/22 19:53> Patient Disposition: Still a Patient <Leonidas Butcher MD - Last Filed: 08/12/22 19:53> Prescriptions: No Action acetaminophen 325 mg tablet 650 mg PO DAILY PRN (Reason: Pain) clonazepam 0.5 mg tablet 0.5 mg PO BID PRN (Reason: Anxiety) hydroxyzine HCl 50 mg tablet 50 mg PO BID gabapentin 800 mg tablet 800 mg PO TID zolpidem 5 mg tablet 5 mg PO BEDTIME PRN (Reason: Sleep) ketoconazole 2 % cream 1 applic topical BID PRN (Reason: Rash) fluticasone propionate 50 mcg/actuation spray,suspension 1 spray intranasal BID topiramate 50 mg tablet 50 mg PO BID duloxetine 30 mg capsule,delayed release(DR/EC) 30 mg PO DAILY buspirone 10 mg tablet 3 tab PO TID cyclobenzaprine 10 mg tablet 10 mg PO BID PRN (Reason: Muscle Spasm) cyanocobalamin (vitamin B-12) 1,000 mcg tablet 1,000 mcg PO DAILY propranolol 10 mg tablet 10 mg PO BID loratadine 10 mg tablet 10 mg PO DAILY methadone [Methadose] 10 mg/mL concentrate 145 mg PO DAILY Rx Instructions: Partial Fill upon patient request. amoxicillin-pot clavulanate [Augmentin] 875-125 mg Tablet 1 tab PO BID doxycycline monohydrate 100 mg PO BID <Leonidas Butcher MD - Last Filed: 08/12/22 19:53> Interventions: [place]-Suicide Risk Severity Scale Last Done: 08/15/22 12:59 <Leonidas Butcher MD - Last Filed: 08/12/22 19:53>
[2022-08-12 21:04] VITALS: BP 114/63; PULSE 78; RESP 17; TEMP 36.6; O2SAT 96
[2022-08-12] MEDS: Amoxicillin/Potassium Clav 875 MG TABLET PO (21:04)
[2022-08-12] MEDS: busPIRone HCl 10 MG TABLET 30 MG PO (21:04)
[2022-08-12] MEDS: Gabapentin 400 MG CAPSULE 800 MG PO (21:04)
[2022-08-12] MEDS: Doxycycline Monohydrate 100 MG CAPSULE PO (21:04)
[2022-08-12] MEDS: Topiramate 25 MG TABLET 50 MG PO (21:04)
[2022-08-12] MEDS: Propranolol HCL 10 MG TABLET PO (21:04)
[2022-08-12] MEDS: hydrOXYzine HCL 50 MG TABLET PO (21:05)
[2022-08-13 02:25] VITALS: BP 115/66; PULSE 75; RESP 16; TEMP 36.5; O2SAT 97
[2022-08-13] MEDS: Cyclobenzaprine HCl 10 MG TABLET PO (02:26)
[2022-08-13] MEDS: clonazePAM 0.5 MG TABLET PO (02:26)
--- NOTE | 2022-08-13 02:28 | PC.NURSE ---
Patient calm and quiet, resting, medication compliant, no distress observed/reported, denied SI/HI/AVH, behavior in good control, disposition per care team is detox referral, patient will be evaluated in the morning by recovery team, VSS, will continue to monitor.
[2022-08-13] MEDS: Propranolol HCL 10 MG TABLET PO ×2 (08:12→21:40)
[2022-08-13] MEDS: Topiramate 25 MG TABLET 50 MG PO ×2 (08:12→21:40)
[2022-08-13] MEDS: DULoxetine HCl 30 MG CAPSULE.DR PO (08:12)
[2022-08-13] MEDS: Loratadine 10 MG TABLET PO (08:12)
[2022-08-13] MEDS: hydrOXYzine HCL 50 MG TABLET PO ×2 (08:13→21:40)
[2022-08-13] MEDS: Gabapentin 400 MG CAPSULE 800 MG PO ×3 (08:13→21:40)
[2022-08-13 08:15] VITALS: BP 128/68; PULSE 90; RESP 18; TEMP 36.5; O2SAT 98
[2022-08-13] MEDS: Cyanocobalamin (Vitamin B-12) 1,000 MCG TABLET 1000 MCG PO (08:32)
[2022-08-13] MEDS: methADONE HCl 20 MG/2 ML ORAL.CONC 145 MG PO (08:32)
[2022-08-13] MEDS: Doxycycline Monohydrate 100 MG CAPSULE PO ×2 (08:32→21:40)
[2022-08-13] MEDS: busPIRone HCl 10 MG TABLET 30 MG PO ×3 (08:32→22:34)
[2022-08-13] MEDS: Amoxicillin/Potassium Clav 875 MG TABLET PO ×2 (08:32→21:40)
--- NOTE | 2022-08-13 10:23 | MHC.RECOVRN ---
[facility] declined pt, reports pt does not meet criteria for ATS admission due to using one day. Also informed t/w pt does not meet CSS level of care due to having used one day. Encouraged t/w to connect pt to a assisted. RN aware.
[2022-08-13] MEDS: Nicotine Polacrilex 2 MG GUM BUCCAL ×4 (10:39→21:40)
--- NOTE | 2022-08-13 10:52 | MHC.RECOVRN ---
[facility] has bed availability but does not accept pts for opiate ATS when on methadone, nor do they accept pts for stimulant use disorder.
--- NOTE | 2022-08-13 11:00 | MHC.RECOVRN ---
[facility] has availability, referral sent. Staff unsure if pt will be accepted due to methadone, must wait for review.
--- NOTE | 2022-08-13 13:00 | MHC.RECOVRN ---
[facility] declined. On 08/11 [facility] had anticipated CSS availability today. Spoke with Marylou, ext. [phone], who reported bed still possibly available. Explained situation regarding pt- d/c on 08/11, return 08/12. Marylou requested updated ED documentation, which has been sent. Awaiting return call.
--- NOTE | 2022-08-13 13:06 | MHC.RECOVRN ---
Spoke with Marylou at [facility], Marylou informed t/w pts referral would not be reviewed until Thursday.
[2022-08-13] MEDS: Acetaminophen 325 MG TABLET 650 MG PO (14:29)
--- NOTE | 2022-08-13 15:41 | MHC.RECOVRN ---
Met with pt to follow up regarding status of ATS/CSS bedsearch. Pt aware all options for the day have been exhausted due to lack of bed availability and pt being declined related to factors such as methadone and stimulant use disorder (some facilities will not take pts for solely stimulant use disorder). Plan to continue to follow up with [facility] and [facility] Gannon for a CSS bed. Pt also aware [facility] is closed on the and for the holiday and would be unable to receive methadone dose if dc from the hospital. Pt advocating to stay and continue bedsearch tomorrow. Discussed with CARE Team, ED provider, and Liset Brambila APRN.
[2022-08-13 21:46] VITALS: BP 117/72; PULSE 68; RESP 18; TEMP 36.5; O2SAT 98
[2022-08-13] MEDS: Zolpidem Tartrate 5 MG TABLET PO (21:51)
[2022-08-13] MEDS: Fluticasone Propionate Nasal 16 GM SPRAY 1 SPRAY NOSTRIL-B (22:38)
[2022-08-14 02:16] VITALS: BP 119/75; PULSE 78; RESP 16; TEMP 36.7; O2SAT 98
[2022-08-14] MEDS: Nicotine Polacrilex 2 MG GUM 4 MG BUCCAL ×6 (02:18→20:40)
--- NOTE | 2022-08-14 06:06 | PC.NURSE ---
Patient slept through the night, no distress observed/reported, behavior calm and quiet, medication compliant, disposition per care/recovery team is ATS bed search, VSS, will continue to monitor.
[2022-08-14 08:16] VITALS: BP 125/55; PULSE 67; RESP 18; TEMP 36.9; O2SAT 98
[2022-08-14] MEDS: methADONE HCl 20 MG/2 ML ORAL.CONC 145 MG PO (08:19)
[2022-08-14] MEDS: Topiramate 25 MG TABLET 50 MG PO ×2 (08:21→20:40)
[2022-08-14] MEDS: Amoxicillin/Potassium Clav 875 MG TABLET PO ×2 (08:21→20:40)
[2022-08-14] MEDS: Gabapentin 400 MG CAPSULE 800 MG PO ×3 (08:22→20:40)
[2022-08-14] MEDS: DULoxetine HCl 30 MG CAPSULE.DR PO (08:22)
[2022-08-14] MEDS: Doxycycline Monohydrate 100 MG CAPSULE PO ×2 (08:23→20:41)
[2022-08-14] MEDS: Loratadine 10 MG TABLET PO (08:23)
[2022-08-14] MEDS: Propranolol HCL 10 MG TABLET PO ×2 (08:23→20:42)
[2022-08-14] MEDS: Cyanocobalamin (Vitamin B-12) 1,000 MCG TABLET 1000 MCG PO (08:24)
[2022-08-14] MEDS: hydrOXYzine HCL 50 MG TABLET PO ×2 (08:24→20:41)
[2022-08-14] MEDS: busPIRone HCl 10 MG TABLET 30 MG PO ×3 (08:24→21:00)
[2022-08-14] MEDS: clonazePAM 0.5 MG TABLET PO ×2 (08:28→20:40)
[2022-08-14] MEDS: Cyclobenzaprine HCl 10 MG TABLET PO ×2 (08:39→20:39)
--- NOTE | 2022-08-14 10:50 | PC.NURSE ---
Addendum entered by Christy Haque 08/14/22 17:52: Confirmed with covering md to administer PRNs at 12hr kory. Addendum entered by Christy Haque 08/14/22 17:37: BID medication Flexeril and Klonopin scheduling checked with pharmacy. Pt can have another dose at 1999. Original Note: Medicated w/ am meds. Pt reports 0.5mg clonopin doesn't work for me, i think i need ativan . Pt offered coloring, snacks, and warm blanket to assist with anxiety.
[2022-08-14] MEDS: LORazepam 1 MG TABLET 2 MG PO (12:05)
[2022-08-14 13:26] VITALS: RESP 16
--- NOTE | 2022-08-14 16:55 | MHC.CARE ---
Care Team had a telephonic encounter with Gladis reported no [facility] admissions today.
[2022-08-14 20:05] VITALS: BP 100/57; PULSE 76; RESP 16; TEMP 36.4; O2SAT 96
[2022-08-14] MEDS: Zolpidem Tartrate 5 MG TABLET PO (20:40)
[2022-08-14] MEDS: Fluticasone Propionate Nasal 16 GM SPRAY 1 SPRAY NOSTRIL-B (20:41)
[2022-08-14 20:43] VITALS: BP 137/85; PULSE 84; RESP 18
[2022-08-15 01:23] VITALS: BP 114/61; PULSE 74; RESP 17; TEMP 36.4; O2SAT 98
[2022-08-15] MEDS: Nicotine Polacrilex 2 MG GUM 4 MG BUCCAL ×8 (01:36→21:14)
--- NOTE | 2022-08-15 05:53 | PC.NURSE ---
Patient slept through the night, no distress observed/reported, behavior non concerning, medication compliant, disposition per care/recovery team is ATS bed search, no update bed search so far, VSS, will continue to monitor.
--- NOTE | 2022-08-15 07:07 | PC.NURSE ---
pt awake at this time. resting in bed comfortably. plan for care/recovery to see pt today.
[2022-08-15] MEDS: Propranolol HCL 10 MG TABLET PO ×2 (08:02→21:05)
[2022-08-15] MEDS: Cyanocobalamin (Vitamin B-12) 1,000 MCG TABLET 1000 MCG PO (08:02)
[2022-08-15] MEDS: busPIRone HCl 10 MG TABLET 30 MG PO ×3 (08:02→21:06)
[2022-08-15] MEDS: Loratadine 10 MG TABLET PO (08:02)
[2022-08-15] MEDS: Doxycycline Monohydrate 100 MG CAPSULE PO ×2 (08:02→21:06)
[2022-08-15] MEDS: Topiramate 25 MG TABLET 50 MG PO ×2 (08:02→21:06)
[2022-08-15] MEDS: hydrOXYzine HCL 50 MG TABLET PO ×2 (08:02→21:05)
[2022-08-15] MEDS: Amoxicillin/Potassium Clav 875 MG TABLET PO ×2 (08:02→21:06)
[2022-08-15] MEDS: Gabapentin 400 MG CAPSULE 800 MG PO ×3 (08:02→21:05)
[2022-08-15] MEDS: Fluticasone Propionate Nasal 16 GM SPRAY 1 SPRAY NOSTRIL-B ×2 (08:03→21:07)
[2022-08-15] MEDS: DULoxetine HCl 30 MG CAPSULE.DR PO (08:03)
[2022-08-15] MEDS: methADONE HCl 20 MG/2 ML ORAL.CONC 145 MG PO (08:03)
[2022-08-15] MEDS: clonazePAM 0.5 MG TABLET PO ×2 (08:03→13:46)
[2022-08-15 10:13] LABS: COVID-19 Test Negative (Negative); IDNOW Serial# 9DB6401D
--- NOTE | 2022-08-15 12:59 | PC.NURSE ---
pt remains calm and cooperative. independent around the unit. eating and drinking well.
[2022-08-15] MEDS: Cyclobenzaprine HCl 10 MG TABLET PO (13:46)
[2022-08-15] MEDS: Acetaminophen 325 MG TABLET 650 MG PO (15:05)
--- NOTE | 2022-08-15 18:33 | PC.NURSE ---
Addendum entered by Malorie Starks RN 08/15/22 18:52: report given to APOLONIA Reyes Original Note: report received from APOLONIA Luke pt alert and oriented resting in the room no signs of acute distress notice close monitoring maintained
[2022-08-15] MEDS: Zolpidem Tartrate 5 MG TABLET PO (21:06)
[2022-08-15 21:10] VITALS: BP 112/65; PULSE 72; RESP 16; TEMP 36.5; O2SAT 97
[2022-08-16 00:22] VITALS: BP 127/82; PULSE 74; RESP 16; TEMP 36.5; O2SAT 97
[2022-08-16] MEDS: Nicotine Polacrilex 2 MG GUM 4 MG BUCCAL ×6 (01:31→21:03)
--- NOTE | 2022-08-16 05:53 | PC.NURSE ---
Patient slept through the night, no distress observed/reported, behavior non concerning, medication compliant, disposition per care/recovery team is detox bed search, no update bed search so far, VSS, will continue to monitor.
--- NOTE | 2022-08-16 07:17 | PC.NURSE ---
Addendum entered by Christy Haque 08/16/22 17:21: Pt offered non-pharmacological means to manage anxiety such as hot shower and coloring. PRNS given eariler with MD permission. Pt aware of timing of night meds. No questions. Original Note: No acute events reported overnight. Pt offers no complaints.
[2022-08-16 07:49] VITALS: BP 118/68; PULSE 79; RESP 18; TEMP 36.8; O2SAT 97
[2022-08-16] MEDS: methADONE HCl 20 MG/2 ML ORAL.CONC 145 MG PO (08:12)
[2022-08-16] MEDS: Topiramate 25 MG TABLET 50 MG PO ×2 (08:14→20:59)
[2022-08-16] MEDS: Loratadine 10 MG TABLET PO (08:14)
[2022-08-16] MEDS: Cyanocobalamin (Vitamin B-12) 1,000 MCG TABLET 1000 MCG PO (08:15)
[2022-08-16] MEDS: DULoxetine HCl 30 MG CAPSULE.DR PO (08:15)
[2022-08-16] MEDS: hydrOXYzine HCL 50 MG TABLET PO ×2 (08:15→20:59)
[2022-08-16] MEDS: busPIRone HCl 10 MG TABLET 30 MG PO ×3 (08:15→22:41)
[2022-08-16] MEDS: Cyclobenzaprine HCl 10 MG TABLET PO ×2 (08:15→13:59)
[2022-08-16] MEDS: Gabapentin 400 MG CAPSULE 800 MG PO ×3 (08:16→20:59)
[2022-08-16] MEDS: Doxycycline Monohydrate 100 MG CAPSULE PO ×2 (08:16→20:59)
[2022-08-16] MEDS: Amoxicillin/Potassium Clav 875 MG TABLET PO ×2 (08:16→20:59)
[2022-08-16] MEDS: clonazePAM 0.5 MG TABLET PO ×2 (08:16→13:58)
[2022-08-16] MEDS: Propranolol HCL 10 MG TABLET PO ×2 (08:19→20:59)
[2022-08-16 14:00] VITALS: RESP 16
--- NOTE | 2022-08-16 14:57 | MHC.RECOVSUP ---
? Reason for consult:OPI o? Current location:ED01? o? Identified substance use concern:? -? Seeking CSS -? Support ?? Intervention: o? CSS bed search started/completed/in process o? Harm reduction discussion ? Plan: o? Bed search in progress to CSS o? Follow up tomorrow? ? Additional information:RC met with pt, learned that the pt is waiting for a bed for a CSS program at [facility], called and confirmed. RC called other facilities, they all said to try back on Thursday. Please follow up tomorrow.
[2022-08-16 17:08] VITALS: BP 115/69; PULSE 79; RESP 18; TEMP 37; O2SAT 96
[2022-08-16 19:19] VITALS: BP 137/83; PULSE 76; RESP 16; O2SAT 97
[2022-08-16] MEDS: Zolpidem Tartrate 5 MG TABLET PO (20:59)
[2022-08-16] MEDS: Fluticasone Propionate Nasal 16 GM SPRAY 1 SPRAY NOSTRIL-B (20:59)
[2022-08-17] MEDS: Nicotine Polacrilex 2 MG GUM 4 MG BUCCAL ×7 (04:02→21:14)
--- NOTE | 2022-08-17 06:15 | PC.NURSE ---
Patient slept through the night, no distress observed/reported, behavior non concerning but exhibit med seeking behavior at time, medication compliant, disposition per care/recovery team is detox/CSS bed search, no update on bed search in last six days, patient is not a crises patient, VSS, will continue to monitor.
[2022-08-17 08:07] VITALS: BP 111/53; PULSE 71; RESP 16; TEMP 36.2; O2SAT 96
[2022-08-17] MEDS: Doxycycline Monohydrate 100 MG CAPSULE PO ×2 (08:42→21:06)
[2022-08-17] MEDS: Amoxicillin/Potassium Clav 875 MG TABLET PO ×2 (08:42→21:06)
[2022-08-17] MEDS: Topiramate 25 MG TABLET 50 MG PO ×2 (08:42→21:06)
[2022-08-17] MEDS: busPIRone HCl 10 MG TABLET 30 MG PO ×3 (08:42→21:06)
[2022-08-17] MEDS: Propranolol HCL 10 MG TABLET PO ×2 (08:43→21:06)
[2022-08-17] MEDS: clonazePAM 0.5 MG TABLET PO ×2 (08:43→12:56)
[2022-08-17] MEDS: hydrOXYzine HCL 50 MG TABLET PO ×2 (08:43→21:06)
[2022-08-17] MEDS: Cyanocobalamin (Vitamin B-12) 1,000 MCG TABLET 1000 MCG PO (08:43)
[2022-08-17] MEDS: DULoxetine HCl 30 MG CAPSULE.DR PO (08:43)
[2022-08-17] MEDS: Gabapentin 400 MG CAPSULE 800 MG PO ×3 (08:43→21:06)
[2022-08-17] MEDS: methADONE HCl 20 MG/2 ML ORAL.CONC 145 MG PO (08:44)
[2022-08-17] MEDS: Loratadine 10 MG TABLET PO (08:44)
[2022-08-17] MEDS: LORazepam 1 MG TABLET 2 MG PO (10:06)
--- NOTE | 2022-08-17 12:45 | MHC.RECOVSUP ---
? Reason for consult Recovery Support o Current location: ED22H o Identified substance use concern: Heroin - Support ? Intervention: o Community resources provided o Harm reduction discussion ? Plan: <del>o</del> <del>Referral</del> <del>to</del> <del>[facility]</del> <del>o</del> <del>Bed</del> <del>search</del> <del>in</del> <del>progress</del> <del>to</del> o Follow up tomorrow <del>o</del> <del>Patient</del> <del>awaiting</del> <del>crisis</del> <del>evaluation</del> <del>o</del> <del>Patient</del> <del>to</del> <del>follow</del> <del>up</del> <del>with</del> <del>[facility]</del> <del>after</del> <del>discharge</del> ? Additional information: Had a Talk with patient maybe try a program outside the area Patient quickly stated with all the thing that could go wrong.. But i spoke about what could go right..Info was printed so that she could think about it
[2022-08-17] MEDS: Cyclobenzaprine HCl 10 MG TABLET PO (12:56)
--- NOTE | 2022-08-17 14:35 | PC.NURSE ---
i attempted to retrieve vitals from patient but was unsuccessful. patient stated not at this time come back later. RN aware
[2022-08-17] MEDS: Fluticasone Propionate Nasal 16 GM SPRAY 1 SPRAY NOSTRIL-B (21:06)
[2022-08-17 21:12] VITALS: BP 124/77; PULSE 82; RESP 16; TEMP 36.5; O2SAT 97
[2022-08-18 00:57] VITALS: BP 111/67; PULSE 74; RESP 17; TEMP 36.1; O2SAT 97
[2022-08-18] MEDS: Nicotine Polacrilex 2 MG GUM 4 MG BUCCAL ×3 (01:20→14:17)
--- NOTE | 2022-08-18 05:09 | PC.NURSE ---
Patient slept through the night, no distress observed/reported, behavior non concerning but exhibit med seeking behavior at time, medication compliant, disposition per care/recovery team is detox/CSS bed search, no update on bed search in last seven days, patient is not a crises patient at this time, VSS, will continue to monitor.
[2022-08-18 07:55] VITALS: BP 106/67; PULSE 80; RESP 18; TEMP 36.3; O2SAT 97
[2022-08-18] MEDS: methADONE HCl 20 MG/2 ML ORAL.CONC 145 MG PO (08:11)
[2022-08-18] MEDS: Topiramate 25 MG TABLET 50 MG PO (08:14)
[2022-08-18] MEDS: Loratadine 10 MG TABLET PO (08:14)
[2022-08-18] MEDS: Gabapentin 400 MG CAPSULE 800 MG PO ×2 (08:14→14:15)
[2022-08-18] MEDS: Fluticasone Propionate Nasal 16 GM SPRAY 1 SPRAY NOSTRIL-B (08:14)
[2022-08-18] MEDS: Amoxicillin/Potassium Clav 875 MG TABLET PO (08:14)
[2022-08-18] MEDS: DULoxetine HCl 30 MG CAPSULE.DR PO (08:14)
[2022-08-18] MEDS: Doxycycline Monohydrate 100 MG CAPSULE PO (08:15)
[2022-08-18] MEDS: hydrOXYzine HCL 50 MG TABLET PO (08:15)
[2022-08-18] MEDS: busPIRone HCl 10 MG TABLET 30 MG PO ×2 (08:15→14:16)
[2022-08-18] MEDS: Cyanocobalamin (Vitamin B-12) 1,000 MCG TABLET 1000 MCG PO (08:15)
[2022-08-18] MEDS: Propranolol HCL 10 MG TABLET PO (08:15)
[2022-08-18] MEDS: Cyclobenzaprine HCl 10 MG TABLET PO ×2 (08:24→14:15)
[2022-08-18] MEDS: clonazePAM 0.5 MG TABLET PO ×2 (09:34→14:17)
[2022-08-18] MEDS: LORazepam 1 MG TABLET PO (12:41)
--- NOTE | 2022-08-18 12:45 | PC.NURSE ---
pt reporting increased anxiety, requesting ativan, medicated per provider order.
--- NOTE | 2022-08-18 12:57 | PC.NURSE ---
kitchen contacted regarding hamburger. pt given ice cream and mihir ming.
--- NOTE | 2022-08-18 15:25 | MHC.RECOVRN ---
This sheet writer spoke w/ [facility] today. MV reports no movement in female CSS beds today, none available. This sheet writer inquired about CSS/TSS/[facility] at [facility]. Pt not eligible for admission at [facility] due to pt treatment hold and [facility] confirmed would not take TSS admission from ED, nor [facility] admission from ED. Pt called T[facility] and left voicemail, pt did not hear back from [facility]. This sheet writer and pt discussed options. Pt states has a safe place that is a sober environment to discharge to [facility]. Pt to follow up with recovery supports from the community. Lyft ride scheduled for pt to friends home. Report given to ED RN.
== END 2022-08-18 16:39 | disposition home or self-care (01) ==
PROVIDERS: Emergency Provider Emergency Medicine; PCP Internal Medicine
DX: F31.9 Bipolar disorder, unspecified (principal); R45.851 Suicidal ideations; F14.10 Cocaine abuse, uncomplicated; F11.10 Opioid abuse, uncomplicated; Z20.822 Contact with and (suspected) exposure to COVID-19; Z87.891 Personal history of nicotine dependence; Z79.899 Other long term (current) drug therapy
CPT/HCPCS: 80053; 80307; 81025; 82077; 85025; 87635; 99285

== ENCOUNTER 2022-08-19 10:20 | Inpatient (IN) | payer OTHER, SELFPAY ==
--- NOTE | 2022-08-19 | ECG_ITS ---
Test Reason : R/O PROLONGED QT INTERVAL Blood Pressure : / mmHG Vent. Rate : 068 BPM Atrial Rate : 068 BPM P-R Int : 192 ms QRS Dur : 090 ms QT Int : 460 ms P-R-T Axes : 066 020 061 degrees QTc Int : 489 ms Normal sinus rhythm Nonspecific T wave abnormality Anterolateral leads Abnormal ECG When compared with ECG of 07-AUG-2022 16:32, No significant changes seen Referred By: Annelise Ernst Electronically Signed By:NAE ROJO MD
[2022-08-19 11:08] VITALS: BP 109/66; PULSE 77; RESP 18; TEMP 36.8; O2SAT 96; BMI 36.3
--- NOTE | 2022-08-19 11:32 | ED.OVERDOSE ---
HPI - Overdose General Chief Complaint: Overdose Stated Complaint: Crisis Time Seen by Provider: 08/19/22 11:22 Source: EMS History of Present Illness HPI Narrative: 42-year-old female with a past medical history of bipolar disorder, suicidal ideations, opiate dependence, presenting to the ED complaining of increasing depression with suicidal ideations, feeling hopeless with no will to live. States she is fearful for herself to go back into her uncontrolled drug habits/dangers of not caring about herself or others. admits to taking about 80 pills of unknown mg of hydroxyzine yesterday around 19:00 after discharge from our facility. Patient was discharged after no detox bed was found. Also reports using heroin and cocaine. Denies ETOH or other illicit substances. Denies known injury, trauma or fall. MD complaint: intentional overdose Onset (ago): hour(s) Related Data Home Medications Medication Instructions Recorded Confirmed cyanocobalamin (vitamin B-12) 1,000 mcg PO DAILY 06/16/22 08/19/22 1,000 mcg tablet cyclobenzaprine 10 mg tablet 10 mg PO BID PRN Muscle Spasm 06/16/22 08/19/22 loratadine 10 mg tablet 10 mg PO DAILY 06/16/22 08/19/22 methadone 10 mg/mL oral 145 mg PO DAILY 06/16/22 08/19/22 concentrate (Methadose) propranolol 10 mg tablet 10 mg PO BID 06/16/22 08/19/22 acetaminophen 325 mg tablet 650 mg PO DAILY PRN Pain 08/04/22 08/19/22 clonazepam 0.5 mg tablet 0.5 mg PO BID PRN Anxiety 08/04/22 08/19/22 duloxetine 30 mg capsule,delayed 30 mg PO DAILY 08/04/22 08/19/22 release fluticasone propionate 50 1 spray intranasal BID 08/04/22 08/19/22 mcg/actuation nasal spray,suspension gabapentin 800 mg tablet 800 mg PO TID 08/04/22 08/19/22 hydroxyzine HCl 50 mg tablet 50 mg PO BID 08/04/22 08/19/22 ketoconazole 2 % topical cream 1 applic topical BID PRN Rash 08/04/22 08/19/22 topiramate 50 mg tablet 50 mg PO BID 08/04/22 08/19/22 zolpidem 5 mg tablet 5 mg PO BEDTIME PRN Sleep 08/04/22 08/19/22 buspirone 10 mg tablet 3 tab PO TID 08/07/22 08/19/22 amoxicillin 875 mg-potassium 1 tab PO BID dental infection 08/12/22 08/12/22 clavulanate 125 mg tablet doxycycline monohydrate 100 mg PO BID 08/12/22 08/12/22 Allergies Allergy/AdvReac Type Severity Reaction Status Date / Time quetiapine [From SEROQUEL] Allergy Severe THROAT Verified 08/19/22 11:07 SWELLING azithromycin [AZITHROMYCIN] Allergy Unknown Unknown Verified 08/19/22 11:07 erythromycin base Allergy Unknown RASH Verified 08/19/22 11:07 [ERYTHROMYCIN BASE] olanzapine [From ZYPREXA] Allergy Unknown PEDAL EDEMA Verified 08/19/22 11:07 sulfacetamide Allergy Unknown Unknown Verified 08/19/22 11:07 [From Sulfacet-R] sulfamethoxazole Allergy Unknown ITCHING Verified 08/19/22 11:07 [From BACTRIM] sulfur [From Sulfacet-R] Allergy Unknown Unknown Verified 08/19/22 11:07 trimethoprim [From BACTRIM] Allergy Unknown ITCHING Verified 08/19/22 11:07 risperidone [From RISPERDAL] AdvReac Unknown TWITCHING Verified 08/19/22 11:07 seafood AdvReac Unknown Vomiting Verified 08/19/22 11:07 shellfish derived AdvReac Unknown VOMITING Verified 08/19/22 11:07 [SHELLFISH DERIVED] trazodone AdvReac restless Verified 08/19/22 11:07 legs Review of Systems Review of Systems: Constitutional: No Fever, No Chills, No Night Sweats, No Fatigue, No Malaise ENT/Mouth: No Ear Pain, No Nasal Congestion, No sore throat, No Rhinorrhea, No Swallowing Difficulty Eyes: No Eye Pain, No Swelling, No Redness, No Vision Changes Cardiovascular: No Chest Pain, No SOB, No Edema, No Palpitations Respiratory: No Cough, No Sputum, No Dyspnea Gastrointestinal: No Nausea, No Vomiting, No Diarrhea, No Constipation, No Abdominal pain Genitourinary: No Dysuria, No Hematuria, No Flank Pain Musculoskeletal: No joint pain, No Myalgias, No Joint Swelling Skin: No Skin Lesions, No rash Neuro: No Weakness, No Dizziness, No Headache Psych: + Anxiety/Panic, + Depression, + SI, No HI/AH/VH, + Social Issues Yes all other systems are reviewed and are negative Constitutional: Constitutional: Reports as per [facility] Past Medical History Attestation statement: The following information was validated with the patient. Medical History Back pain Chronic post-traumatic stress disorder (PTSD) Leg pain, bilateral Opioid dependence Opioid use disorder, moderate, in sustained remission, dependence Rhabdomyolysis Substance abuse Substance abuse Social History Social History Household Members: None Housing: Homeless Housing Other:: patient states she is homeless Do you presently have visiting nurse or other home services: No Unable to assess alcohol history related to: Refusing to respond Alcohol intake: unknown Patient Tobacco Use Status: Former Tobacco user Quit Date: 07/22/22 Tobacco use type: Cigarette Cigarette Packs Per Day: 1 Cigarettes Per Day: 20.0 Years Smoked: 10 e-Cigarette/Vaping Use: Former Use Second Hand Smoke Exposure: Yes Substance Use Type: Crack/Cocaine and Heroin Advance Directives: Yes Advance Directives on File: Yes Advance Directives Date on File: 12/28/20 service: No Current occupational status: unemployed and disabled Sexual orientation: Did not discuss Physical Exam Vital Signs: Vital Signs: Last Vital Signs Temp 97.8 F 08/19/22 12:59 Pulse 80 08/19/22 12:59 Resp 16 08/19/22 12:59 BP 116/72 08/19/22 12:59 Pulse Ox 97 08/19/22 12:59 O2 Del Method 08/19/22 12:59 BMI result Body Mass Index 36.3 Const: General: cooperative and no acute distress Orientation/consciousness: patient oriented x3 Limitations: no limitations HEENT: Head: Yes normal to inspection and Yes atraumatic Ears: hearing grossly normal bilaterally General nose exam: Normal external nose present Face and sinus: Yes normal facial exam Throat: Yes posterior oropharynx normal, Yes tonsils normal and Yes uvula midline Eyes: General: appearance normal, both eyes and all related structures Pupils: Equal, round and reactive pupils present EOM: EOMs intact bilaterally Neck: Neck: Yes normal visual inspection and Yes no meningeal signs Resp: Effort & Inspection: normal respiratory effort and no respiratory distress Auscultation: clear to auscultation bilaterally, no crackles, no rales, no rhonchi and no wheezes Cardio: Rate: regular rate Heart sounds: S1 normal heart sound present and S2 normal heart sound present GI: Inspection: Yes normal to inspection Palpation (GI): Soft to palpation, nontender, no guarding and not rigid Skin: Rashes: no rashes Wounds: no wounds Neuro: General: patient oriented x3, gait normal, tone normal, moves all extremities, no meningeal signs, no focal motor deficits and CN's II-XI intact bilaterally Cranial nerves: Yes Equal, round and reactive pupils present Gait exam (Neuro): Normal gait present Extrem: General: Yes normal to inspection Psych: Mental Status: mental status grossly normal Affect: Sad affect present and Irritable affect present Attitude: cooperative Thought content: Suicidality present and Depressive thoughts present Insight: Good insight present (Psych) Course Course Course Narrative: -1326-- tox screen positive for fentanyl, benzos, and cocaine - labs otherwise reassuring - UA was leuk esterase, otherwise not infected -1525-- patient is medically cleared for CARE team evaluation. Physician observation initiated 1800--ED care transfered to DRIVER GUARD Madelyn pending care team evaluation Medications Administered Discontinued Medications Generic Name Dose Route Start Last Admin Trade Name Freq PRN Reason Stop Dose Admin Ibuprofen 400 mg 08/19/22 16:34 08/19/22 16:39 Ibuprofen 400 Mg Tablet PO 08/19/22 16:35 400 mg ONCE ONE Administration MDM - Overdose MDM Narrative Medical decision making narrative: 42-year-old female with a past medical history of bipolar disorder, suicidal ideations, opiate dependence, presenting to the ED complaining of increasing depression with suicidal ideations, feeling hopeless with no will to live. On exam vital signs stable, NAD, nontoxic appearing, ambulating with steady gait, depressed, suicidal. Concern for intentional overdose. rule out metabolic and infectious etiologies wheezing control contacted and recommended EKG, labs including electrolytes, magnesium, phosphorus and salicylate/acetaminophen plan: EKG, labs, care team consult Differential Diagnosis Differential diagnosis: Likely suicide attempt by multiple drug overdose, poisoning by opiate or related narcotic and drug overdose Medical Records Attestation: I reviewed the patient's medical records. Lab Data Attestation: I reviewed the patient's lab results. Result diagrams: 08/19/22 13:18 08/19/22 13:18 Labs: Lab Results 08/19/22 08/19/22 08/19/22 Range/Units 13:00 13:00 13:00 WBC (4.8-10.8) X10*3/uL RBC (4.20-5.50) X10*6/uL Hgb (12.0-16.0) g/dl Hct (37.0-47.0) % MCV (80.0-98.0) fL MCH (27.0-33.0) pg MCHC (31.0-35.0) g/dl RDW (11.0-16.0) % Plt Count (160-400) X10*3/uL MPV (9.4-12.3) fL Immature Gran % (Auto) (0.0-0.4) % Neut % (Auto) (45-73) % Lymph % (Auto) (20-40) % [place] % (Auto) (2-11) % Eos % (Auto) (0-4) % Baso % (Auto) (0-2) % Lymph # (Auto) (1.2-4.9) X10*3/uL [place] # (Auto) (0.1-1.2) X10*3/uL Eos # (Auto) (0.0-0.4) X10*3/uL Baso # (Auto) (0.0-0.2) X10*3/uL Abs Immat Gran (auto) (0.00-0.03) X10*3/uL Absolute Neuts (auto) (2.0-8.3) x10*3/uL Absolute Nucleated RBC (0.0-0.012) X10*3/uL Nucleated RBC % (auto) (0.0-0.2) /100WBC Sodium (135-145) mmol/L Potassium (3.3-5.1) mmol/L Chloride (96-108) mmol/L Carbon Dioxide (22-29) mmol/L Anion Gap (12-20) BUN (9-16) mg/dL Creatinine (0.5-1.4) mg/dL Estim Creat Clear Calc Estimated GFR Random Glucose (60-115) mg/dL Calcium (8.4-10.2) mg/dL Phosphorus (2.7-4.5) mg/dL Magnesium (1.6-2.6) mg/dL Total Bilirubin (0.0-1.0) mg/dL Direct Bilirubin (0.0-0.5) mg/dL AST (5-31) U/L ALT (0-31) U/L Alkaline Phosphatase (39-117) U/L Total Protein (6.5-8.0) g/dL Albumin (3.5-5.0) g/dL Urine Color Yellow Urine Appearance Clear Urine pH 6.0 (5.0-9.0) Ur Specific [place] 1.020 (1.005-1.025) Urine Protein Negative (Neg-Trace) mg/dL Urine Glucose (UA) Negative (Negative) mg/dL Urine Ketones Negative (Negative) mg/dL Urine Blood Negative (Negative) Urine Nitrite Negative (Negative) Ur Leukocyte Esterase Moderate (2+) H (Negative) Urine RBC 0-2 (0-2) /HPF Urine WBC 0-5 (0-5) /HPF Ur Squamous Epith Cells 0-2 (0-2) /HPF Urine Bacteria None Seen (None Seen) Hyaline Casts 0-2 (0-2) /LPF Salicylates (15-30) mg/dL Urine Opiates Screen Not Detected (Not Detect) Urine Fentanyl Screen POSITIVE H (Not Detect) Acetaminophen (<30) mcg/mL Ur Barbiturates Screen Not Detected (Not Detect) Ur Phencyclidine Scrn Not Detected (Not Detect) Ur Amphetamines Screen Not Detected (Not Detect) U Benzodiazepines Scrn POSITIVE H (Not Detect) Urine Cocaine Screen POSITIVE H (Not Detect) U Marijuana (THC) Screen Not Detected (Not Detect) COVID-19 (ZACK) Negative (Negative) COVID-19 Clin Com See Note 08/19/22 08/19/22 Range/Units 13:18 13:18 WBC 4.9 (4.8-10.8) X10*3/uL RBC 4.00 L (4.20-5.50) X10*6/uL Hgb 11.9 L (12.0-16.0) g/dl Hct 35.4 L (37.0-47.0) % MCV 88.5 (80.0-98.0) fL MCH 29.8 (27.0-33.0) pg MCHC 33.6 (31.0-35.0) g/dl RDW 13.2 (11.0-16.0) % Plt Count 105 L (160-400) X10*3/uL MPV 10.3 (9.4-12.3) fL Immature Gran % (Auto) 0.4 (0.0-0.4) % Neut % (Auto) 42.4 L (45-73) % Lymph % (Auto) 44.0 H (20-40) % [place] % (Auto) 10.4 (2-11) % Eos % (Auto) 2.0 (0-4) % Baso % (Auto) 0.8 (0-2) % Lymph # (Auto) 2.2 (1.2-4.9) X10*3/uL [place] # (Auto) 0.5 (0.1-1.2) X10*3/uL Eos # (Auto) 0.1 (0.0-0.4) X10*3/uL Baso # (Auto) 0.0 (0.0-0.2) X10*3/uL Abs Immat Gran (auto) 0.02 (0.00-0.03) X10*3/uL Absolute Neuts (auto) 2.1 (2.0-8.3) x10*3/uL Absolute Nucleated RBC 0.000 (0.0-0.012) X10*3/uL Nucleated RBC % (auto) 0.0 (0.0-0.2) /100WBC Sodium 139 (135-145) mmol/L Potassium 3.4 (3.3-5.1) mmol/L Chloride 104 (96-108) mmol/L Carbon Dioxide 24 (22-29) mmol/L Anion Gap 14 (12-20) BUN 18 H (9-16) mg/dL Creatinine 0.70 (0.5-1.4) mg/dL Estim Creat Clear Calc 123.7 Estimated GFR > 60 Random Glucose 85 (60-115) mg/dL Calcium 9.4 (8.4-10.2) mg/dL Phosphorus 4.7 H (2.7-4.5) mg/dL Magnesium 2.2 (1.6-2.6) mg/dL Total Bilirubin 0.7 (0.0-1.0) mg/dL Direct Bilirubin 0.3 (0.0-0.5) mg/dL AST 72 H (5-31) U/L ALT 91 H (0-31) U/L Alkaline Phosphatase 78 (39-117) U/L Total Protein 6.7 (6.5-8.0) g/dL Albumin 4.0 (3.5-5.0) g/dL Urine Color Urine Appearance Urine pH (5.0-9.0) Ur Specific [place] (1.005-1.025) Urine Protein (Neg-Trace) mg/dL Urine Glucose (UA) (Negative) mg/dL Urine Ketones (Negative) mg/dL Urine Blood (Negative) Urine Nitrite (Negative) Ur Leukocyte Esterase (Negative) Urine RBC (0-2) /HPF Urine WBC (0-5) /HPF Ur Squamous Epith Cells (0-2) /HPF Urine Bacteria (None Seen) Hyaline Casts (0-2) /LPF Salicylates < 5.0 L (15-30) mg/dL Urine Opiates Screen (Not Detect) Urine Fentanyl Screen (Not Detect) Acetaminophen < 1 (<30) mcg/mL Ur Barbiturates Screen (Not Detect) Ur Phencyclidine Scrn (Not Detect) Ur Amphetamines Screen (Not Detect) U Benzodiazepines Scrn (Not Detect) Urine Cocaine Screen (Not Detect) U Marijuana (THC) Screen (Not Detect) COVID-19 (ZACK) (Negative) COVID-19 Clin Com Discharge Plan Discharge Clinical Impression: Substance abuse, Suicidal ideation, Intentional overdose Patient Disposition: Still a Patient Prescriptions: No Action acetaminophen 325 mg tablet 650 mg PO DAILY PRN (Reason: Pain) clonazepam 0.5 mg tablet 0.5 mg PO BID PRN (Reason: Anxiety) hydroxyzine HCl 50 mg tablet 50 mg PO BID gabapentin 800 mg tablet 800 mg PO TID zolpidem 5 mg tablet 5 mg PO BEDTIME PRN (Reason: Sleep) ketoconazole 2 % cream 1 applic topical BID PRN (Reason: Rash) fluticasone propionate 50 mcg/actuation spray,suspension 1 spray intranasal BID topiramate 50 mg tablet 50 mg PO BID duloxetine 30 mg capsule,delayed release(DR/EC) 30 mg PO DAILY buspirone 10 mg tablet 3 tab PO TID cyclobenzaprine 10 mg tablet 10 mg PO BID PRN (Reason: Muscle Spasm) cyanocobalamin (vitamin B-12) 1,000 mcg tablet 1,000 mcg PO DAILY propranolol 10 mg tablet 10 mg PO BID loratadine 10 mg tablet 10 mg PO DAILY methadone [Methadose] 10 mg/mL concentrate 145 mg PO DAILY Rx Instructions: Partial Fill upon patient request. amoxicillin-pot clavulanate [Augmentin] 875-125 mg Tablet 1 tab PO BID doxycycline monohydrate 100 mg PO BID
--- NOTE | 2022-08-19 12:57 | PC.NURSE ---
per direction of pa called poison control who requested ekg, labs, and a return call when results are in to tameka at
[2022-08-19 12:59] VITALS: BP 116/72; PULSE 80; RESP 16; TEMP 36.6; O2SAT 97
[2022-08-19 13:14] LABS: Appearance Urine Clear; Color Urine Yellow; Glucose Urine UA Negative (Negative); Leukocyte Esterase Urine Moderate (2+) (Negative); Nitrite Urine Negative (Negative); UMIC TRIGGER UACC YES; Urine Blood Negative (Negative); Urine Ketones Negative (Negative); Urine Protein Negative (Neg-Trace)
[2022-08-19 13:18] LABS: Amphetamine Screen Urine Not Detected (Not Detect); Barbiturates, Urine Not Detected (Not Detect); Benzodiazepines Screen Urine POSITIVE (Not Detect); Cannabinoid Screen Urine Not Detected (Not Detect); Cocaine Screen Urine POSITIVE (Not Detect); Fentanyl, urine POSITIVE (Not Detect); Opiate Screen Urine Not Detected (Not Detect); Phencyclidine Screen Urine Not Detected (Not Detect)
[2022-08-19 13:21] LABS: COVID-19 Test Negative (Negative); IDNOW Serial# BCCEAD1C
[2022-08-19 13:22] LABS: MANUAL DIFF FLAG NO
[2022-08-19 13:31] LABS: Bacteria Urine None Seen (None Seen); Hyaline Casts Urine 0-2 /LPF (0-2); RBC Urine 0-2 /HPF (0-2); Squamous Epithelial Cell Urine 0-2 /HPF (0-2); WBC Urine 0-5 /HPF (0-5)
[2022-08-19 13:31] LABS: Basophils Percent Auto 0.8 % (0-2); Eosinophils Absolute Auto 0.1 X10*3/uL (0.0-0.4); Hematocrit 35.4 % (37.0-47.0); Hemoglobin 11.9 g/dl (12.0-16.0); Imm Gran Abs Auto 0.02 X10*3/uL (0.00-0.03); Imm Gran Pct Auto 0.4 % (0.0-0.4); Lymphocytes Absolute Auto 2.2 X10*3/uL (1.2-4.9); Mean Corpuscular HGB Conc 33.6 g/dl (31.0-35.0); Mean Corpuscular Hemoglobin 29.8 pg (27.0-33.0); Mean Corpuscular Volume 88.5 fL (80.0-98.0); Mean Platelet Volume 10.3 fL (9.4-12.3); Monocytes Absolute Auto 0.5 X10*3/uL (0.1-1.2); Monocytes Percent Auto 10.4 % (2-11); Neutrophils Absolute Auto 2.1 x10*3/uL (2.0-8.3); Neutrophils Percent Auto 42.4 % (45-73); Platelet Count 105 X10*3/uL (160-400); Red Cell Distribution Width 13.2 % (11.0-16.0); White Blood Count 4.9 X10*3/uL (4.8-10.8)
[2022-08-19 13:44] LABS: Acetaminophen LAB < 1 mcg/mL (<30); Anion Gap 14 (12-20); Blood Urea Nitrogen 18 mg/dL (9-16); Calcium 9.4 mg/dL (8.4-10.2); Carbon Dioxide 24 mmol/L (22-29); Chloride 104 mmol/L (96-108); Creatinine Clr Calc Pharmacy 123.7; Estimated Glomerular Filt Rate > 60; Glucose Random 85 mg/dL (60-115); Magnesium 2.2 mg/dL (1.6-2.6); Phosphorus 4.7 mg/dL (2.7-4.5); Potassium 3.4 mmol/L (3.3-5.1); Salicylate < 5.0 mg/dL (15-30); Sodium 139 mmol/L (135-145)
[2022-08-19 15:23] LABS: Alanine Aminotransferase 91 U/L (0-31); Alkaline Phosphatase 78 U/L (39-117); Aspartate Amino Transferase 72 U/L (5-31); Bilirubin Direct 0.3 mg/dL (0.0-0.5); Bilirubin Total 0.7 mg/dL (0.0-1.0); Total Protein 6.7 g/dL (6.5-8.0)
[2022-08-19] MEDS: Ibuprofen 400 MG TABLET PO (16:39)
--- NOTE | 2022-08-19 17:11 | PC.NURSE ---
(late entry) in speaking to poison control reviewed labs and ekg and tameka stated if we believed that clients baseline liver enzymes were normally elevated beyond what they are now that there was no reason to repeat lft's. patient was soon thereafter visited by care team staff and briefly interviewed. patient had co WANG and t/w pursued analgesics and administered, patient allowed to sleep
--- NOTE | 2022-08-19 19:43 | MHC.CARE ---
A state wide dual diagnosis bedsearch has been completed, and while there are no beds available for today, both [facility] and [facility] has openings for tomorrow and are willing to review assessment today. Referral packet is faxed at [phone]
[2022-08-19] MEDS: Propranolol HCL 10 MG TABLET PO (22:07)
[2022-08-19] MEDS: Gabapentin 400 MG CAPSULE 800 MG PO (22:07)
[2022-08-19] MEDS: busPIRone HCl 10 MG TABLET 20 MG PO (22:07)
[2022-08-19] MEDS: hydrOXYzine HCL 50 MG TABLET PO (22:07)
[2022-08-19] MEDS: Topiramate 25 MG TABLET 50 MG PO (22:07)
--- NOTE | 2022-08-20 06:34 | PC.ADMIT ---
Pt is a 42 years old female admitted for suicide attempt. Pt reports that she took 100 pills of hydroxyzine belonging to somebody while in the streets. Pt is alert but drowsy. Pt is covid negative, tox screen positive for cocaine, opiate, benzos, THC. Pt presents as fatigue, and ready to go to sleep. Pt denies SI/HI/AH/VH at this time, refused flu shot. Insight, judgment and impulse control are poor. Speech is incoherent at times, irritable and depressed mood. Legals completed. Admission orders obtained.
[2022-08-20 08:00] VITALS: BP 108/67; PULSE 80; TEMP 35.9; O2SAT 99
[2022-08-20] MEDS: busPIRone HCl 10 MG TABLET 20 MG PO ×3 (08:47→21:17)
[2022-08-20] MEDS: Topiramate 25 MG TABLET 50 MG PO ×2 (08:47→21:17)
[2022-08-20] MEDS: DULoxetine HCl 30 MG CAPSULE.DR PO (08:48)
[2022-08-20] MEDS: Loratadine 10 MG TABLET PO (08:48)
[2022-08-20] MEDS: Cyanocobalamin (Vitamin B-12) 1,000 MCG TABLET 1000 MCG PO (08:48)
[2022-08-20] MEDS: Gabapentin 400 MG CAPSULE 800 MG PO ×3 (08:48→21:17)
[2022-08-20] MEDS: Propranolol HCL 10 MG TABLET PO ×2 (08:48→21:17)
[2022-08-20 09:49] LABS: Estimated Average Glucose 108 mg/dL; Hemoglobin A1c % 5.4 %
[2022-08-20] MEDS: methADONE HCl 20 MG/2 ML ORAL.CONC 145 MG PO (10:00)
[2022-08-20] MEDS: clonazePAM 0.5 MG TABLET PO ×2 (10:03→18:23)
[2022-08-20] MEDS: Cyclobenzaprine HCl 10 MG TABLET PO ×2 (10:03→18:23)
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
[2022-08-20 10:50] LABS: Cholesterol 97 mg/dL; Free T4 (Free Thyroxine) 0.98 ng/dL (0.71-1.85); HDL Cholesterol 52 mg/dL; LDL Cholesterol Calculated 34 mg/dl; Thyroid Stimulating Hormone 3.22 uIU/mL (0.32-4.0); Triglycerides 55 mg/dL
[2022-08-20 10:54] LABS: Vitamin B12 623 pg/mL (200-900)
[2022-08-20 21:10] VITALS: BP 113/52; PULSE 69; RESP 16; TEMP 36.3; O2SAT 98
[2022-08-20] MEDS: Zolpidem Tartrate 5 MG TABLET PO (21:17)
[2022-08-21] MEDS: Nicotine Polacrilex 2 MG GUM BUCCAL ×3 (03:42→12:13)
[2022-08-21 07:59] VITALS: BP 117/70; PULSE 75; RESP 16; TEMP 36.8; O2SAT 98
[2022-08-21] MEDS: busPIRone HCl 10 MG TABLET 20 MG PO ×3 (08:07→21:08)
[2022-08-21] MEDS: Gabapentin 400 MG CAPSULE 800 MG PO ×3 (08:07→21:08)
[2022-08-21] MEDS: Propranolol HCL 10 MG TABLET PO ×2 (08:07→21:07)
[2022-08-21] MEDS: Loratadine 10 MG TABLET PO (08:08)
[2022-08-21] MEDS: DULoxetine HCl 30 MG CAPSULE.DR PO (08:08)
[2022-08-21] MEDS: Cyanocobalamin (Vitamin B-12) 1,000 MCG TABLET 1000 MCG PO (08:08)
[2022-08-21] MEDS: Topiramate 25 MG TABLET 50 MG PO ×2 (08:08→21:08)
[2022-08-21] MEDS: methADONE HCl 20 MG/2 ML ORAL.CONC 145 MG PO (08:08)
[2022-08-21] MEDS: Cyclobenzaprine HCl 10 MG TABLET PO ×2 (08:49→17:52)
[2022-08-21] MEDS: clonazePAM 0.5 MG TABLET PO ×2 (08:50→17:53)
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
[2022-08-21] MEDS: Fluticasone Propionate Nasal 16 GM SPRAY 1 SPRAY NOSTRIL-B ×2 (10:54→21:09)
[2022-08-21] MEDS: Nicotine Polacrilex Lozenge 4 MG LOZENGE BUCCAL ×3 (14:25→21:07)
[2022-08-21] MEDS: Nicotine 21 MG PATCH.TD24 TRANSDERMA (14:25)
[2022-08-21 17:55] VITALS: BP 117/59; PULSE 69; RESP 16; TEMP 36.2; O2SAT 100
[2022-08-21 21:05] VITALS: BP 102/56; PULSE 73
[2022-08-21] MEDS: Zolpidem Tartrate 5 MG TABLET PO (21:13)
[2022-08-22] MEDS: Nicotine Polacrilex Lozenge 4 MG LOZENGE BUCCAL ×3 (03:50→11:03)
[2022-08-22] MEDS: Cyclobenzaprine HCl 10 MG TABLET PO ×2 (05:03→16:57)
[2022-08-22] MEDS: Acetaminophen 325 MG TABLET 650 MG PO (05:04)
[2022-08-22] MEDS: clonazePAM 0.5 MG TABLET PO (05:07)
[2022-08-22 08:00] VITALS: BP 118/72; PULSE 72; RESP 16; TEMP 36.4; O2SAT 98
[2022-08-22] MEDS: Propranolol HCL 10 MG TABLET PO ×2 (08:03→21:59)
[2022-08-22] MEDS: Topiramate 25 MG TABLET 50 MG PO ×2 (08:03→22:00)
[2022-08-22] MEDS: Fluticasone Propionate Nasal 16 GM SPRAY 1 SPRAY NOSTRIL-B (08:03)
[2022-08-22] MEDS: Cyanocobalamin (Vitamin B-12) 1,000 MCG TABLET 1000 MCG PO (08:03)
[2022-08-22] MEDS: DULoxetine HCl 30 MG CAPSULE.DR PO ×2 (08:03→11:25)
[2022-08-22] MEDS: Nicotine 21 MG PATCH.TD24 TRANSDERMA (08:03)
[2022-08-22] MEDS: busPIRone HCl 10 MG TABLET 20 MG PO ×3 (08:04→21:59)
[2022-08-22] MEDS: Gabapentin 400 MG CAPSULE 800 MG PO ×3 (08:04→21:59)
[2022-08-22] MEDS: methADONE HCl 20 MG/2 ML ORAL.CONC 145 MG PO (08:05)
[2022-08-22] MEDS: Loratadine 10 MG TABLET PO (11:26)
[2022-08-22] MEDS: Nicotine Polacrilex 2 MG GUM 4 MG BUCCAL ×3 (13:17→22:01)
[2022-08-22] MEDS: diazePAM 5 MG TABLET 10 MG PO ×2 (14:43→22:00)
[2022-08-22 18:00] VITALS: BP 128/64; PULSE 74; RESP 18; TEMP 36.2; O2SAT 97
--- NOTE | 2022-08-22 18:01 | HO.PSYCHPN ---
Subjective Subjective Date of Service: 08/22/22 Reason For Visit: Bipolar Disorder, Polysubstance Use Disorder, Opia Interim History: remains depressed, but no SI; going to groups, working on coping skills. Mental Status Exam Mental Status Exam Narrative: Pt is alert and oriented; behavior is cooperative,, anxious, but more calm; patient is not in distress; dressed in casual clothing, unkempt hair but adequate hygiene; mood is described as ok...anxious and affect congruent, little brighter; eye contact appropriate; Speech is normal rate, volume and prosody and not pressured; some psychomotor retardation present; thought process is goal directed; Thought content is being stuck in cycle of addiction/depression; otherwise pertinent to relevant topics and without any delusional content, paranoid ideations or grandiosity; denies any SI/HI. There is no evidence of perceptual disturbance. Patients insight and judgment appear intact. Diagnostics Vital Signs (24Hr): Vital Signs - 24 hr 08/21/22 21:05 08/22/22 08:00 Temperature 97.6 F Pulse Rate 73 72 Respiratory Rate 16 Blood Pressure 102/56 L 118/72 Pulse Oximetry 98 Oxygen Delivery Method Room Air BMI result Body Mass Index 36.3 Labs Results: 08/19/22 13:18 08/19/22 13:18 Medications Medications Current Medications Acetaminophen (Acetaminophen 325 Mg Tablet) 650 mg PO DAILY PRN PRN Reason: Pain, Mild (Pain Scale 1-3) Last Admin: 08/22/22 05:04 Dose: 650 mg Al Hydroxide/Mg Hydroxide (Magnesium Hydrox/Alum Hydrox 30 Ml Oral.Susp) 30 ml PO Q6H PRN PRN Reason: Heartburn/Nausea Buspirone HCl (Buspirone Hcl 10 Mg Tablet) 20 mg PO TID [facility] Last Admin: 08/22/22 14:41 Dose: 20 mg Cyanocobalamin (Cyanocobalamin (Vitamin B-12) 1,000 Mcg Tablet) 1,000 mcg PO DAILY [facility] Last Admin: 08/22/22 08:03 Dose: 1,000 mcg Cyclobenzaprine HCl (Cyclobenzaprine Hcl 10 Mg Tablet) 10 mg PO BID PRN PRN Reason: Muscle Spasm Last Admin: 08/22/22 16:57 Dose: 10 mg Diazepam (Diazepam 5 Mg Tablet) 10 mg PO TID PRN PRN Reason: Anxiety Last Admin: 08/22/22 14:43 Dose: 10 mg Duloxetine HCl (Duloxetine Hcl 60 Mg Capsule.Dr) 60 mg PO DAILY [facility] Fluticasone Propionate (Fluticasone Propionate Nasal 16 Gm [place]) 1 spray NOSTRIL-B BID [facility] Last Admin: 08/22/22 08:03 Dose: 1 spray Gabapentin (Gabapentin 400 Mg Capsule) 800 mg PO TID [facility] Last Admin: 08/22/22 14:41 Dose: 800 mg Loratadine (Loratadine 10 Mg Tablet) 10 mg PO DAILY [facility] Last Admin: 08/22/22 11:26 Dose: 10 mg Magnesium Hydroxide (Milk Of Magnesia 30 Ml Oral.Susp) 30 ml PO DAILY PRN PRN Reason: Constipation Methadone HCl (Methadone Hcl 20 Mg/2 Ml Oral.Conc) 145 mg PO DAILY [facility] Last Admin: 08/22/22 08:05 Dose: 145 mg Nicotine (Nicotine 21 Mg Patch.Td24) 21 mg TRANSDERMA DAILY [facility] Last Admin: 08/22/22 08:03 Dose: 21 mg Nicotine Polacrilex (Nicotine Polacrilex 2 Mg Gum) 4 mg BUCCAL Q2H [facility] Last Admin: 08/22/22 16:57 Dose: 4 mg Propranolol HCl (Propranolol Hcl 10 Mg Tablet) 10 mg PO BID [facility]; Protocol Last Admin: 08/22/22 08:03 Dose: 10 mg Topiramate (Topiramate 25 Mg Tablet) 50 mg PO BID [facility] Last Admin: 08/22/22 08:03 Dose: 50 mg Zolpidem Tartrate (Zolpidem Tartrate 5 Mg Tablet) 5 mg PO BEDTIME PRN PRN Reason: Sleep Last Admin: 08/21/22 21:13 Dose: 5 mg Allergies Allergies Allergy/AdvReac Type Severity Reaction Status Date / Time quetiapine [From SEROQUEL] Allergy Severe THROAT Verified 08/19/22 11:07 SWELLING azithromycin [AZITHROMYCIN] Allergy Unknown Unknown Verified 08/19/22 11:07 erythromycin base Allergy Unknown RASH Verified 08/19/22 11:07 [ERYTHROMYCIN BASE] olanzapine [From ZYPREXA] Allergy Unknown PEDAL EDEMA Verified 08/19/22 11:07 sulfacetamide Allergy Unknown Unknown Verified 08/19/22 11:07 [From Sulfacet-R] sulfamethoxazole Allergy Unknown ITCHING Verified 08/19/22 11:07 [From BACTRIM] sulfur [From Sulfacet-R] Allergy Unknown Unknown Verified 08/19/22 11:07 trimethoprim [From BACTRIM] Allergy Unknown ITCHING Verified 08/19/22 11:07 risperidone [From RISPERDAL] AdvReac Unknown TWITCHING Verified 08/19/22 11:07 seafood AdvReac Unknown Vomiting Verified 08/19/22 11:07 shellfish derived AdvReac Unknown VOMITING Verified 08/19/22 11:07 [SHELLFISH DERIVED] trazodone AdvReac restless Verified 08/19/22 11:07 legs Assessment & Plan Assessment & Plan (1) Chronic post-traumatic stress disorder (PTSD): Status: Acute Code(s): F43.12 - Post-traumatic stress disorder, chronic (2) Opioid use disorder, severe, dependence: Status: Acute Code(s): F11.20 - Opioid dependence, uncomplicated (3) Depression: Status: Acute Code(s): F32.A - Depression, unspecified Plan Patient is a 42-year-old female with history of PTSD, depression and chronic polysubstance abuse on Methadone, who presents for depression and suicide attempt by overdosing on hydroxyzine. Patient reports that she has been very depressed lately. She says although frequently depressed and feels worse and she says she just wants to sleep all day, even when she sober. She says because of this depression she uses to take away the feelings but then hates herself for doing so which only worsens her depression. Referring to the trap of addiction and depression, She says I am in this cycle and I just can not get out... I just can not seem to stop and I do not know what to do. In bout of impulsive emotionality she took an overdose. She is no longer suicidal Patient wants to get her program though she is well aware of the limitations programs can offer. 08/22 stabilizing; depressed but coping; no SI. Will switch to Valium since she says it helps her back better than clonazepam; pt calling for programs and may have gotten into one Plan: cv q15 min continue home meds Increase Cymbalta to 60mg switching to Valium 10mg BID (rough equiv dose of Clonazepam; Denny who knows pt well agrees Valium likely better for her back pain); senior grant writer understands (and has discussed with patient) risks involved w/ controlled meds and substance abuse however pt has been on benzos' (and valium and gabapentin) for a long time, despite chronic, severe ongoing substance abuse and at this point, senior grant writer finds it more detrimental to patient to dc these meds as they are apart of her stability, fragile as it is and that do dc them, would be to almost certainly dysregulate her and increase her risks; Again, thoroughly discussed with ABHAY Baldwin who knows her well and agrees) discuss dispo with SW though likely limited options discussed section 35, however pt has been several times, 2x recently and it has not seemed helpful I spent minutes with the patient and/or on the patient floor today, greater than?50% of which was spent counseling/coordinating care. Reason for contiued inpatient stay Substantial Risk for: rapid decompensation
[2022-08-22] MEDS: Zolpidem Tartrate 5 MG TABLET PO (22:00)
[2022-08-23] MEDS: Nicotine Polacrilex 2 MG GUM 4 MG BUCCAL ×6 (04:21→20:42)
[2022-08-23] MEDS: Acetaminophen 325 MG TABLET 650 MG PO (06:40)
[2022-08-23] MEDS: diazePAM 5 MG TABLET 10 MG PO ×3 (06:40→19:59)
--- NOTE | 2022-08-23 07:33 | HO.PSYCHPN ---
Documented by User: Ene Sharif MD 08/24/22 07:42 Subjective Subjective Date of Service: 08/23/22 Reason For Visit: Bipolar Disorder, Polysubstance Use Disorder, Opia Subjective Notes: Conditional Voluntary Healthcare Proxy: No Guardianship: No Medical Problems Affecting Mental Status: No Interim History: Pt continues to be sedated on metahdone plus nursing reportts nodding off, still requests medications isolative nursing reports Medication Compliance: Yes Side effects from medications: Yes (sedation) Attending Groups: No Review of Systems Acute medical concerns: Yes over sedation Medical Review of Systems: unchanged Mental Status Exam Mental Status Exam Narrative: hard to rouse to discuss, falls right back to sleep Patient Appearance: Fatigued Level of Consciousness: Sedated Diagnostics Vital Signs (24Hr): Vital Signs - 24 hr 08/22/22 08:00 08/22/22 18:00 Temperature 97.6 F 97.1 F Pulse Rate 72 74 Respiratory Rate 16 18 Blood Pressure 118/72 128/64 Pulse Oximetry 98 97 Oxygen Delivery Method Room Air Room Air BMI result Body Mass Index 36.3 Labs Results: 08/19/22 13:18 08/19/22 13:18 Medications Medications Current Medications Acetaminophen (Acetaminophen 325 Mg Tablet) 650 mg PO DAILY PRN PRN Reason: Pain, Mild (Pain Scale 1-3) Last Admin: 08/23/22 06:40 Dose: 650 mg Al Hydroxide/Mg Hydroxide (Magnesium Hydrox/Alum Hydrox 30 Ml Oral.Susp) 30 ml PO Q6H PRN PRN Reason: Heartburn/Nausea Buspirone HCl (Buspirone Hcl 10 Mg Tablet) 20 mg PO TID [facility] [place] Last Admin: 08/22/22 21:59 Dose: 20 mg Cyanocobalamin (Cyanocobalamin (Vitamin B-12) 1,000 Mcg Tablet) 1,000 mcg PO DAILY [facility] [place] Last Admin: 08/22/22 08:03 Dose: 1,000 mcg Cyclobenzaprine HCl (Cyclobenzaprine Hcl 10 Mg Tablet) 10 mg PO BID PRN PRN Reason: Muscle Spasm Last Admin: 08/22/22 16:57 Dose: 10 mg Diazepam (Diazepam 5 Mg Tablet) 10 mg PO TID PRN PRN Reason: Anxiety Last Admin: 08/23/22 06:40 Dose: 10 mg Duloxetine HCl (Duloxetine Hcl 60 Mg Capsule.Dr) 60 mg PO DAILY [facility] [place] Fluticasone Propionate (Fluticasone Propionate Nasal 16 Gm [place]) 1 spray NOSTRIL-B BID [facility] [place] Last Admin: 08/22/22 22:03 Dose: Not Given Gabapentin (Gabapentin 400 Mg Capsule) 800 mg PO TID [facility] [place] Last Admin: 08/22/22 21:59 Dose: 800 mg Loratadine (Loratadine 10 Mg Tablet) 10 mg PO DAILY [facility] [place] Last Admin: 08/22/22 11:26 Dose: 10 mg Magnesium Hydroxide (Milk Of Magnesia 30 Ml Oral.Susp) 30 ml PO DAILY PRN PRN Reason: Constipation Methadone HCl (Methadone Hcl 20 Mg/2 Ml Oral.Conc) 145 mg PO DAILY [facility] [place] Last Admin: 08/22/22 08:05 Dose: 145 mg Nicotine (Nicotine 21 Mg Patch.Td24) 21 mg TRANSDERMA DAILY [facility] [place] Last Admin: 08/22/22 08:03 Dose: 21 mg Nicotine Polacrilex (Nicotine Polacrilex 2 Mg Gum) 4 mg BUCCAL Q2H [facility] [place] Last Admin: 08/23/22 06:43 Dose: Not Given Propranolol HCl (Propranolol Hcl 10 Mg Tablet) 10 mg PO BID [facility]; Protocol Last Admin: 08/22/22 21:59 Dose: 10 mg Topiramate (Topiramate 25 Mg Tablet) 50 mg PO BID [facility] [place] Last Admin: 08/22/22 22:00 Dose: 50 mg Zolpidem Tartrate (Zolpidem Tartrate 5 Mg Tablet) 5 mg PO BEDTIME PRN PRN Reason: Sleep Last Admin: 08/22/22 22:00 Dose: 5 mg Allergies Allergies Allergy/AdvReac Type Severity Reaction Status Date / Time quetiapine [From SEROQUEL] Allergy Severe THROAT Verified 08/19/22 11:07 SWELLING azithromycin [AZITHROMYCIN] Allergy Unknown Unknown Verified 08/19/22 11:07 erythromycin base Allergy Unknown RASH Verified 08/19/22 11:07 [ERYTHROMYCIN BASE] olanzapine [From ZYPREXA] Allergy Unknown PEDAL EDEMA Verified 08/19/22 11:07 sulfacetamide Allergy Unknown Unknown Verified 08/19/22 11:07 [From Sulfacet-R] sulfamethoxazole Allergy Unknown ITCHING Verified 08/19/22 11:07 [From BACTRIM] sulfur [From Sulfacet-R] Allergy Unknown Unknown Verified 08/19/22 11:07 trimethoprim [From BACTRIM] Allergy Unknown ITCHING Verified 08/19/22 11:07 risperidone [From RISPERDAL] AdvReac Unknown TWITCHING Verified 08/19/22 11:07 seafood AdvReac Unknown Vomiting Verified 08/19/22 11:07 shellfish derived AdvReac Unknown VOMITING Verified 08/19/22 11:07 [SHELLFISH DERIVED] trazodone AdvReac restless Verified 08/19/22 11:07 legs Assessment & Plan Assessment & Plan (1) Bipolar disorder: Status: Acute Code(s): F31.9 - Bipolar disorder, unspecified (2) Chronic post-traumatic stress disorder (PTSD): Status: Acute Code(s): F43.12 - Post-traumatic stress disorder, chronic (3) Opioid use disorder, severe, dependence: Status: Acute Code(s): F11.20 - Opioid dependence, uncomplicated Plan Patient is a 42-year-old female with history of PTSD, depression and chronic polysubstance abuse on Methadone, who presents for depression and suicide attempt by overdosing on hydroxyzine. Patient reports that she has been very depressed lately. She says although frequently depressed and feels worse and she says she just wants to sleep all day, even when she sober. She says because of this depression she uses to take away the feelings but then hates herself for doing so which only worsens her depression. Referring to the trap of addiction and depression, She says I am in this cycle and I just can not get out... I just can not seem to stop and I do not know what to do. In bout of impulsive emotionality she took an overdose. She is no longer suicidal Patient wants to get her program though she is well aware of the limitations programs can offer. Plan: cv q15 min continue home meds discuss dispo with SW though likely limited options discussed section 35, however pt has been several times, 2x recently and it has not seemed helpful I spent minutes with the patient and/or on the patient floor today, greater than?50% of which was spent counseling/coordinating care. Informed Consent: does not understand and further education needed Reason for contiued inpatient stay Substantial Risk for: inability to function and rapid decompensation Documented by User: Deepak Aguilar MD 08/25/22 10:38 Subjective Subjective Reason For Visit: Bipolar Disorder, Polysubstance Use Disorder, Opia Diagnostics Labs Results: 08/19/22 13:18 08/19/22 13:18 Assessment & Plan Assessment & Plan (1) Bipolar disorder: Status: Acute Code(s): F31.9 - Bipolar disorder, unspecified (2) Chronic post-traumatic stress disorder (PTSD): Status: Acute Code(s): F43.12 - Post-traumatic stress disorder, chronic (3) Opioid use disorder, severe, dependence: Status: Acute Code(s): F11.20 - Opioid dependence, uncomplicated Plan Patient is a 42-year-old female with history of PTSD, depression and chronic polysubstance abuse on Methadone, who presents for depression and suicide attempt by overdosing on hydroxyzine. Patient reports that she has been very depressed lately. She says although frequently depressed and feels worse and she says she just wants to sleep all day, even when she sober. She says because of this depression she uses to take away the feelings but then hates herself for doing so which only worsens her depression. Referring to the trap of addiction and depression, She says I am in this cycle and I just can not get out... I just can not seem to stop and I do not know what to do. In bout of impulsive emotionality she took an overdose. She is no longer suicidal Patient wants to get her program though she is well aware of the limitations programs can offer. 08/22 stabilizing; depressed but coping; no SI. Will switch to Valium since she says it helps her back better than clonazepam; pt calling for programs and may have gotten into one Plan: cv q15 min continue home meds Increase Cymbalta to 60mg switching to Valium 10mg BID? (rough equiv dose of Clonazepam; Denny who knows pt well agrees Valium likely better for her back pain); communications writer understands (and has discussed with patient) risks involved w/ controlled meds and substance abuse however pt has been on benzos' (and valium and gabapentin) for a long time, despite chronic, severe ongoing substance abuse and at this point, communications writer finds it more detrimental to patient to dc these meds as they are apart of her stability, fragile as it is and that do dc them, would be to almost certainly dysregulate her and increase her risks; Again, thoroughly discussed with ABHAY Baldwin who knows her well and agrees) discuss dispo with SW though likely limited options discussed section 35, however pt has been several times, 2x recently and it has not seemed helpful
[2022-08-23] MEDS: Nicotine 21 MG PATCH.TD24 TRANSDERMA (08:29)
[2022-08-23] MEDS: busPIRone HCl 10 MG TABLET 20 MG PO ×3 (08:30→19:59)
[2022-08-23] MEDS: Gabapentin 400 MG CAPSULE 800 MG PO ×3 (08:30→19:58)
[2022-08-23] MEDS: Loratadine 10 MG TABLET PO (08:31)
[2022-08-23] MEDS: Cyanocobalamin (Vitamin B-12) 1,000 MCG TABLET 1000 MCG PO (08:31)
[2022-08-23] MEDS: DULoxetine HCl 60 MG CAPSULE.DR PO (08:31)
[2022-08-23] MEDS: Cyclobenzaprine HCl 10 MG TABLET PO ×2 (08:31→19:59)
[2022-08-23] MEDS: Topiramate 25 MG TABLET 50 MG PO ×2 (08:31→19:58)
[2022-08-23] MEDS: methADONE HCl 20 MG/2 ML ORAL.CONC 145 MG PO (08:33)
[2022-08-23 09:49] VITALS: BP 104/55; PULSE 77; RESP 15; TEMP 36.3; O2SAT 98
[2022-08-23] MEDS: Fluticasone Propionate Nasal 16 GM SPRAY 1 SPRAY NOSTRIL-B (10:26)
[2022-08-23 16:36] VITALS: BP 129/66; PULSE 72; TEMP 36.3; O2SAT 97
[2022-08-23] MEDS: Propranolol HCL 10 MG TABLET PO (19:58)
[2022-08-23] MEDS: Zolpidem Tartrate 5 MG TABLET PO (20:00)
[2022-08-24] MEDS: Nicotine Polacrilex 2 MG GUM 4 MG BUCCAL ×5 (02:30→18:56)
[2022-08-24] MEDS: diazePAM 5 MG TABLET 10 MG PO ×2 (02:30→13:57)
[2022-08-24 06:00] VITALS: BP 105/51; PULSE 80; RESP 16; TEMP 36.4; O2SAT 96
[2022-08-24] MEDS: Cyanocobalamin (Vitamin B-12) 1,000 MCG TABLET 1000 MCG PO (08:05)
[2022-08-24] MEDS: Fluticasone Propionate Nasal 16 GM SPRAY 1 SPRAY NOSTRIL-B (08:05)
[2022-08-24] MEDS: busPIRone HCl 10 MG TABLET 20 MG PO ×3 (08:06→18:55)
[2022-08-24] MEDS: DULoxetine HCl 60 MG CAPSULE.DR PO (08:06)
[2022-08-24] MEDS: Topiramate 25 MG TABLET 50 MG PO ×2 (08:06→18:55)
[2022-08-24] MEDS: Propranolol HCL 10 MG TABLET PO ×3 (08:06→18:56)
[2022-08-24] MEDS: Loratadine 10 MG TABLET PO (08:06)
[2022-08-24] MEDS: Gabapentin 300 MG CAPSULE 600 MG PO (08:06)
[2022-08-24] MEDS: methADONE HCl 20 MG/2 ML ORAL.CONC 145 MG PO (08:07)
[2022-08-24] MEDS: Cyclobenzaprine HCl 10 MG TABLET PO (08:17)
[2022-08-24] MEDS: diazePAM 5 MG TABLET PO ×3 (08:17→18:56)
[2022-08-24] MEDS: Nicotine 21 MG PATCH.TD24 TRANSDERMA (09:11)
--- NOTE | 2022-08-24 11:09 | HO.PSYCHPN ---
Subjective Subjective Date of Service: 08/24/22 Reason For Visit: Bipolar Disorder, Polysubstance Use Disorder, Opia Subjective Notes: 3 Day Healthcare Proxy: No Guardianship: No Medical Problems Affecting Mental Status: Yes ( fibromyalgia ) Interim History: Angry at provider for lower her medication- feels med she has a right to was taken away for no reason Despite explaining my difficulty rousing her yesterday - says she had ear plugs in- Says not sleeping at night and that was why so tired Suggested ptnot take diazepam and flexaril at same time- spead them out Feels provider is messing up her meds for no reason could not feel heard or understood- around medications at all Medication Compliance: Yes Side effects from medications: No (though pt seemed very sedated yesterday am) Attending Groups: Intermittent Review of Systems Acute medical concerns: No Medical Review of Systems: unchanged Mental Status Exam Mental Status Exam Narrative: Pt angry at this provider, feels I took away her medication Patient Appearance: Well Grooomed and Appropriate Patient Orientation: Person, Place, Time and Situation Level of Consciousness: Awake Patient Behavior: Talkative, Suspicious, Resistive to Care and Uncooperative Mood Description: Hostile and Angry Affect Description: Labile Patient Cognition Impaired: No Ability to Follow Directions: Fair Speech Pattern: Clear, Rambling and Rapid Hallucinations: None Thought Process: Racing Thought Content: positive for Racing and positive for Circumstantial Depressive Symptoms: Difficulty Sleeping Judgement: Poor Diagnostics Vital Signs (24Hr): Vital Signs - 24 hr 08/23/22 16:36 08/24/22 06:00 Temperature 97.3 F 97.6 F Pulse Rate 72 80 Respiratory Rate 16 Blood Pressure 129/66 105/51 L Pulse Oximetry 97 96 Oxygen Delivery Method Room Air Room Air BMI result Body Mass Index 36.3 Labs Results: 08/19/22 13:18 08/19/22 13:18 Medications Medications Current Medications Acetaminophen (Acetaminophen 325 Mg Tablet) 650 mg PO DAILY PRN PRN Reason: Pain, Mild (Pain Scale 1-3) Last Admin: 08/23/22 06:40 Dose: 650 mg Al Hydroxide/Mg Hydroxide (Magnesium Hydrox/Alum Hydrox 30 Ml Oral.Susp) 30 ml PO Q6H PRN PRN Reason: Heartburn/Nausea Buspirone HCl (Buspirone Hcl 10 Mg Tablet) 20 mg PO TID [facility] Last Admin: 08/24/22 08:06 Dose: 20 mg Cyanocobalamin (Cyanocobalamin (Vitamin B-12) 1,000 Mcg Tablet) 1,000 mcg PO DAILY [facility] Last Admin: 08/24/22 08:05 Dose: 1,000 mcg Cyclobenzaprine HCl (Cyclobenzaprine Hcl 10 Mg Tablet) 10 mg PO BID PRN PRN Reason: Muscle Spasm Last Admin: 08/24/22 08:17 Dose: 10 mg Diazepam (Diazepam 5 Mg Tablet) 5 mg PO TID PRN PRN Reason: Anxiety Last Admin: 08/24/22 08:17 Dose: 5 mg Duloxetine HCl (Duloxetine Hcl 60 Mg Capsule.Dr) 60 mg PO DAILY [facility] Last Admin: 08/24/22 08:06 Dose: 60 mg Fluticasone Propionate (Fluticasone Propionate Nasal 16 Gm [place]) 1 spray NOSTRIL-B BID [facility] Last Admin: 08/24/22 08:05 Dose: 1 spray Gabapentin (Gabapentin 300 Mg Capsule) 600 mg PO TID [facility] Last Admin: 08/24/22 08:06 Dose: 600 mg Loratadine (Loratadine 10 Mg Tablet) 10 mg PO DAILY [facility] Last Admin: 08/24/22 08:06 Dose: 10 mg Magnesium Hydroxide (Milk Of Magnesia 30 Ml Oral.Susp) 30 ml PO DAILY PRN PRN Reason: Constipation Methadone HCl (Methadone Hcl 20 Mg/2 Ml Oral.Conc) 145 mg PO DAILY [facility] Last Admin: 08/24/22 08:07 Dose: 145 mg Nicotine (Nicotine 21 Mg Patch.Td24) 21 mg TRANSDERMA DAILY [facility] Last Admin: 08/24/22 09:11 Dose: 21 mg Nicotine Polacrilex (Nicotine Polacrilex 2 Mg Gum) 4 mg BUCCAL Q2H PRN PRN Reason: nicotene withdrawl Last Admin: 08/24/22 06:18 Dose: 4 mg Propranolol HCl (Propranolol Hcl 10 Mg Tablet) 10 mg PO TID [facility]; Protocol Last Admin: 08/24/22 08:06 Dose: 10 mg Topiramate (Topiramate 25 Mg Tablet) 50 mg PO BID [facility] Last Admin: 08/24/22 08:06 Dose: 50 mg Allergies Allergies Allergy/AdvReac Type Severity Reaction Status Date / Time quetiapine [From SEROQUEL] Allergy Severe THROAT Verified 08/19/22 11:07 SWELLING azithromycin [AZITHROMYCIN] Allergy Unknown Unknown Verified 08/19/22 11:07 erythromycin base Allergy Unknown RASH Verified 08/19/22 11:07 [ERYTHROMYCIN BASE] olanzapine [From ZYPREXA] Allergy Unknown PEDAL EDEMA Verified 08/19/22 11:07 sulfacetamide Allergy Unknown Unknown Verified 08/19/22 11:07 [From Sulfacet-R] sulfamethoxazole Allergy Unknown ITCHING Verified 08/19/22 11:07 [From BACTRIM] sulfur [From Sulfacet-R] Allergy Unknown Unknown Verified 08/19/22 11:07 trimethoprim [From BACTRIM] Allergy Unknown ITCHING Verified 08/19/22 11:07 risperidone [From RISPERDAL] AdvReac Unknown TWITCHING Verified 08/19/22 11:07 seafood AdvReac Unknown Vomiting Verified 08/19/22 11:07 shellfish derived AdvReac Unknown VOMITING Verified 08/19/22 11:07 [SHELLFISH DERIVED] trazodone AdvReac restless Verified 08/19/22 11:07 legs Assessment & Plan Assessment & Plan (1) Bipolar disorder: Status: Acute Code(s): F31.9 - Bipolar disorder, unspecified Assessment and Plan: seems pressured, not sleeping irritable but may be due to change in meds at least the pressured/irritable aspect needs adjustment of meds at night to sleep (2) Chronic post-traumatic stress disorder (PTSD): Status: Acute Code(s): F43.12 - Post-traumatic stress disorder, chronic (3) Opioid use disorder, severe, dependence: Status: Acute Code(s): F11.20 - Opioid dependence, uncomplicated Plan Patient is a 42-year-old female with history of PTSD, depression and chronic polysubstance abuse on Methadone, who presents for depression and suicide attempt by overdosing on hydroxyzine. Patient reports that she has been very depressed lately. She says although frequently depressed and feels worse and she says she just wants to sleep all day, even when she sober. She says because of this depression she uses to take away the feelings but then hates herself for doing so which only worsens her depression. Referring to the trap of addiction and depression, She says I am in this cycle and I just can not get out... I just can not seem to stop and I do not know what to do. In bout of impulsive emotionality she took an overdose. She is no longer suicidal Patient wants to get her program though she is well aware of the limitations programs can offer. 12/2 stabilizing; depressed but coping; no SI. Will switch to Valium since she says it helps her back better than clonazepam; pt calling for programs and may have gotten into one Plan: cv q15 min continue home meds Increase Cymbalta to 60mg switching to Valium 10mg BID? (rough equiv dose of Clonazepam; Denny who knows pt well agrees Valium likely better for her back pain); typewriter repairer understands (and has discussed with patient) risks involved w/ controlled meds and substance abuse however pt has been on benzos' (and valium and gabapentin) for a long time, despite chronic, severe ongoing substance abuse and at this point, typewriter repairer finds it more detrimental to patient to dc these meds as they are apart of her stability, fragile as it is and that do dc them, would be to almost certainly dysregulate her and increase her risks; Again, thoroughly discussed with ABHAY Baldwin who knows her well and agrees) discuss dispo with SW though likely limited options discussed section 35, however pt has been several times, 2x recently and it has not seemed helpful 12/4Gave pt 1 x diazepam 10mg ,but kept at 5mg tid prn- and adjusted night meds for possible better sleep at night I spent minutes with the patient and/or on the patient floor today, greater than?50% of which was spent counseling/coordinating care. Patient educated on: medication risk/benefits and substance abuse Informed Consent: does not understand Reason for contiued inpatient stay Substantial Risk for: rapid decompensation
[2022-08-24] MEDS: Acetaminophen 325 MG TABLET 650 MG PO (12:10)
[2022-08-24] MEDS: hydrOXYzine HCL 50 MG TABLET PO (12:29)
[2022-08-24] MEDS: Gabapentin 100 MG CAPSULE 200 MG PO (12:29)
--- NOTE | 2022-08-24 12:54 | PC.NURSE ---
pt signed a 3 day, up on 08/27/22
[2022-08-24] MEDS: Gabapentin 400 MG CAPSULE 800 MG PO ×2 (13:57→18:54)
[2022-08-24 18:00] VITALS: BP 116/64; PULSE 76; TEMP 36.5; O2SAT 100
[2022-08-24] MEDS: Zolpidem Tartrate 5 MG TABLET PO (18:56)
[2022-08-25 06:00] VITALS: BP 117/68; PULSE 74; RESP 18
[2022-08-25] MEDS: hydrOXYzine HCL 50 MG TABLET PO ×3 (06:15→18:38)
[2022-08-25] MEDS: Nicotine Polacrilex 2 MG GUM 4 MG BUCCAL ×5 (06:15→18:38)
[2022-08-25] MEDS: Cyanocobalamin (Vitamin B-12) 1,000 MCG TABLET 1000 MCG PO (08:09)
[2022-08-25] MEDS: DULoxetine HCl 60 MG CAPSULE.DR PO (08:09)
[2022-08-25] MEDS: Loratadine 10 MG TABLET PO (08:10)
[2022-08-25] MEDS: busPIRone HCl 10 MG TABLET 20 MG PO ×3 (08:10→19:39)
[2022-08-25] MEDS: diazePAM 5 MG TABLET PO (08:10)
[2022-08-25] MEDS: Topiramate 25 MG TABLET 50 MG PO ×2 (08:10→19:38)
[2022-08-25] MEDS: Gabapentin 400 MG CAPSULE 800 MG PO ×3 (08:10→19:38)
[2022-08-25] MEDS: Propranolol HCL 10 MG TABLET PO ×3 (08:10→19:39)
[2022-08-25] MEDS: Nicotine 21 MG PATCH.TD24 TRANSDERMA (08:12)
[2022-08-25] MEDS: Fluticasone Propionate Nasal 16 GM SPRAY 1 SPRAY NOSTRIL-B ×2 (08:13→19:39)
[2022-08-25] MEDS: methADONE HCl 20 MG/2 ML ORAL.CONC 145 MG PO (08:14)
--- NOTE | 2022-08-25 10:32 | P.PNPSI_ITS ---
Subjective Subjective Date of Service: 08/25/22 Reason For Visit: Bipolar Disorder, Polysubstance Use Disorder, Opia Interim History: depressed, but no SI; anxious and wants Valium raised back to 10mg BID as was discussed. Pt said she was tire this weekend but not sedated from valium. Pt discussed hx of trauma and how hard it is to talk about; not sure when is the right time. Discussed after care and plan to go to program; she put in 3 day but says still planning to go to program. discussed meds; she 's been on lithium in past; also lamictal. pt would lke to restart Lamictal since it can also help w/ ptsd and anxiety; display card writer reviewed risks/side-effects which she understands and accepts Mental Status Exam Mental Status Exam Narrative: Pt is alert and oriented; behavior is cooperative,, anxious, but more calm; patient is not in distress; dressed in casual clothing, unkempt hair but adequate hygiene; mood is described as ok and affect congruent; eye contact appropriate; Speech is normal rate, volume and prosody and not pressured; some psychomotor retardation present; thought process is goal directed; Thought content is being stuck in cycle of addiction/depression; otherwise pertinent to relevant topics and without any delusional content, paranoid ideations or grandiosity; denies any SI/HI. There is no evidence of perceptual disturbance. Patients insight and judgment are fair and at baseline. Diagnostics Vital Signs (24Hr): Vital Signs - 24 hr 08/24/22 18:00 08/25/22 06:00 Temperature 97.7 F Pulse Rate 76 74 Respiratory Rate 18 Blood Pressure 116/64 117/68 Pulse Oximetry 100 Oxygen Delivery Method Room Air Room Air BMI result Body Mass Index 36.3 Labs Results: 08/19/22 13:18 08/19/22 13:18 Medications Medications Current Medications Acetaminophen (Acetaminophen 325 Mg Tablet) 650 mg PO DAILY PRN PRN Reason: Pain, Mild (Pain Scale 1-3) Last Admin: 08/24/22 12:10 Dose: 650 mg Al Hydroxide/Mg Hydroxide (Magnesium Hydrox/Alum Hydrox 30 Ml Oral.Susp) 30 ml PO Q6H PRN PRN Reason: Heartburn/Nausea Buspirone HCl (Buspirone Hcl 10 Mg Tablet) 20 mg PO TID ON LICENSE OF [facility] Last Admin: 08/25/22 08:10 Dose: 20 mg Cyanocobalamin (Cyanocobalamin (Vitamin B-12) 1,000 Mcg Tablet) 1,000 mcg PO DAILY ON LICENSE OF [facility] Last Admin: 08/25/22 08:09 Dose: 1,000 mcg Cyclobenzaprine HCl (Cyclobenzaprine Hcl 10 Mg Tablet) 10 mg PO BID PRN PRN Reason: Muscle Spasm Last Admin: 08/24/22 08:17 Dose: 10 mg Diazepam (Diazepam 5 Mg Tablet) 5 mg PO TID PRN PRN Reason: Anxiety Last Admin: 08/25/22 08:10 Dose: 5 mg Duloxetine HCl (Duloxetine Hcl 60 Mg Capsule.Dr) 60 mg PO DAILY ON LICENSE OF [facility] Last Admin: 08/25/22 08:09 Dose: 60 mg Fluticasone Propionate (Fluticasone Propionate Nasal 16 Gm [place]) 1 spray NOSTRIL-B BID ON LICENSE OF [facility] Last Admin: 08/25/22 08:13 Dose: 1 spray Gabapentin (Gabapentin 400 Mg Capsule) 800 mg PO TID ON LICENSE OF [facility] Last Admin: 08/25/22 08:10 Dose: 800 mg Hydroxyzine HCl (Hydroxyzine Hcl 50 Mg Tablet) 50 mg PO BEDTIME MRX1 PRN PRN Reason: Insomnia Hydroxyzine HCl (Hydroxyzine Hcl 50 Mg Tablet) 50 mg PO TID PRN PRN Reason: anxiety Last Admin: 08/25/22 06:15 Dose: 50 mg Loratadine (Loratadine 10 Mg Tablet) 10 mg PO DAILY ON LICENSE OF [facility] Last Admin: 08/25/22 08:10 Dose: 10 mg Magnesium Hydroxide (Milk Of Magnesia 30 Ml Oral.Susp) 30 ml PO DAILY PRN PRN Reason: Constipation Methadone HCl (Methadone Hcl 20 Mg/2 Ml Oral.Conc) 145 mg PO DAILY ON LICENSE OF [facility] Last Admin: 08/25/22 08:14 Dose: 145 mg Nicotine (Nicotine 21 Mg Patch.Td24) 21 mg TRANSDERMA DAILY ON LICENSE OF [facility] Last Admin: 08/25/22 08:12 Dose: 21 mg Nicotine Polacrilex (Nicotine Polacrilex 2 Mg Gum) 4 mg BUCCAL Q2H PRN PRN Reason: nicotene withdrawl Last Admin: 08/25/22 08:34 Dose: 4 mg Propranolol HCl (Propranolol Hcl 10 Mg Tablet) 10 mg PO TID ON LICENSE OF [facility]; Protocol Last Admin: 08/25/22 08:10 Dose: 10 mg Topiramate (Topiramate 25 Mg Tablet) 50 mg PO BID EDER Last Admin: 08/25/22 08:10 Dose: 50 mg Zolpidem Tartrate (Zolpidem Tartrate 5 Mg Tablet) 5 mg PO BEDTIME PRN PRN Reason: Insomnia Last Admin: 08/24/22 18:56 Dose: 5 mg Allergies Allergies Allergy/AdvReac Type Severity Reaction Status Date / Time quetiapine [From SEROQUEL] Allergy Severe THROAT Verified 08/19/22 11:07 SWELLING azithromycin [AZITHROMYCIN] Allergy Unknown Unknown Verified 08/19/22 11:07 erythromycin base Allergy Unknown RASH Verified 08/19/22 11:07 [ERYTHROMYCIN BASE] olanzapine [From ZYPREXA] Allergy Unknown PEDAL EDEMA Verified 08/19/22 11:07 sulfacetamide Allergy Unknown Unknown Verified 08/19/22 11:07 [From Sulfacet-R] sulfamethoxazole Allergy Unknown ITCHING Verified 08/19/22 11:07 [From BACTRIM] sulfur [From Sulfacet-R] Allergy Unknown Unknown Verified 08/19/22 11:07 trimethoprim [From BACTRIM] Allergy Unknown ITCHING Verified 08/19/22 11:07 risperidone [From RISPERDAL] AdvReac Unknown TWITCHING Verified 08/19/22 11:07 seafood AdvReac Unknown Vomiting Verified 08/19/22 11:07 shellfish derived AdvReac Unknown VOMITING Verified 08/19/22 11:07 [SHELLFISH DERIVED] trazodone AdvReac restless Verified 08/19/22 11:07 legs Assessment & Plan Assessment & Plan (1) Bipolar disorder: Status: Acute Code(s): F31.9 - Bipolar disorder, unspecified Assessment and Plan: seems pressured, not sleeping irritable but may be due to change in meds at least the pressured/irritable aspect needs adjustment of meds at night to sleep (2) Chronic post-traumatic stress disorder (PTSD): Status: Acute Code(s): F43.12 - Post-traumatic stress disorder, chronic (3) Opioid use disorder, severe, dependence: Status: Acute Code(s): F11.20 - Opioid dependence, uncomplicated Plan Patient is a 42-year-old female with history of PTSD, depression and chronic polysubstance abuse on Methadone, who presents for depression and suicide attempt by overdosing on hydroxyzine. Patient reports that she has been very depressed lately. She says although frequently depressed and feels worse and she says she just wants to sleep all day, even when she sober. She says because of this depression she uses to take away the feelings but then hates herself for doing so which only worsens her depression. Referring to the trap of addiction and depression, She says I am in this cycle and I just can not get out... I just can not seem to stop and I do not know what to do. In bout of impulsive emo tionality she took an overdose. She is no longer suicidal Patient wants to get her program though she is well aware of the limitations programs can offer. 08/22 stabilizing; depressed but coping; no SI. Will switch to Valium since she says it helps her back better than clonazepam; pt calling for programs and may have gotten into one 08/25 but back to valium 10mg bID (was reduced on weekend) since pt has been on before. Plan: cv q15 min continue home meds Increase Cymbalta to 60mg switching to Valium 10mg BID? (rough equiv dose of Clonazepam; Denny who knows pt well agrees Valium likely better for her back pain); display card writer understands (and has discussed with patient) risks involved w/ controlled meds and substance abuse however pt has been on benzos' (and valium and gabapentin) for a long time, despite chronic, severe ongoing substance abuse and at this point, display card writer finds it more detrimental to patient to dc these meds as they are apart of her stability, fragile as it is and that do dc them, would be to almost certainly dysregulate her and increase her risks; Again, thoroughly discussed with ABHAY Baldwin who knows her well and agrees) discuss dispo with SW though likely limited options discussed [place] 35, however pt has been several times, 2x recently and it has not seemed helpful 12/4Gave pt 1 x diazepam 10mg ,but kept at 5mg tid prn- and adjusted night meds for possible better sleep at night I spent minutes with the patient and/or on the patient floor today, greater than?50% of which was spent counseling/coordinating care. Patient educated on: diagnosis, medication risk/benefits and substance abuse Informed Consent: understands Reason for contiued inpatient stay Substantial Risk for: stable for discharge
[2022-08-25 14:02] VITALS: BP 116/59; PULSE 71
[2022-08-25] MEDS: diazePAM 5 MG TABLET 10 MG PO (15:44)
[2022-08-25 18:00] VITALS: BP 112/68; PULSE 68; RESP 18; O2SAT 97
[2022-08-25] MEDS: Cyclobenzaprine HCl 10 MG TABLET PO (18:38)
[2022-08-25] MEDS: Zolpidem Tartrate 5 MG TABLET PO (19:39)
[2022-08-25] MEDS: lamoTRIgine 25 MG TABLET PO (19:39)
[2022-08-26] MEDS: Nicotine Polacrilex 2 MG GUM 4 MG BUCCAL ×6 (05:26→20:06)
[2022-08-26] MEDS: Cyclobenzaprine HCl 10 MG TABLET PO ×2 (05:33→19:37)
[2022-08-26] MEDS: hydrOXYzine HCL 50 MG TABLET PO (05:34)
[2022-08-26] MEDS: Nicotine 21 MG PATCH.TD24 TRANSDERMA (08:21)
[2022-08-26] MEDS: Propranolol HCL 10 MG TABLET PO ×2 (08:22→14:51)
[2022-08-26] MEDS: Cyanocobalamin (Vitamin B-12) 1,000 MCG TABLET 1000 MCG PO (08:22)
[2022-08-26] MEDS: Loratadine 10 MG TABLET PO (08:22)
[2022-08-26] MEDS: busPIRone HCl 10 MG TABLET 20 MG PO ×3 (08:22→19:35)
[2022-08-26] MEDS: DULoxetine HCl 60 MG CAPSULE.DR PO (08:22)
[2022-08-26] MEDS: Gabapentin 400 MG CAPSULE 800 MG PO ×3 (08:22→19:35)
[2022-08-26] MEDS: Topiramate 25 MG TABLET 50 MG PO ×2 (08:22→19:35)
[2022-08-26] MEDS: diazePAM 5 MG TABLET 10 MG PO ×2 (08:23→13:38)
[2022-08-26] MEDS: methADONE HCl 20 MG/2 ML ORAL.CONC 145 MG PO (08:24)
[2022-08-26 09:05] VITALS: BP 114/65; PULSE 73; RESP 16; TEMP 36.4; O2SAT 97
[2022-08-26] MEDS: Fluticasone Propionate Nasal 16 GM SPRAY 1 SPRAY NOSTRIL-B (10:31)
[2022-08-26] MEDS: hydrOXYzine HCL 25 MG TABLET 50 MG PO (11:41)
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
[2022-08-26] MEDS: lamoTRIgine 25 MG TABLET PO (19:35)
[2022-08-26 19:44] VITALS: BP 107/51; PULSE 70
[2022-08-26] MEDS: Zolpidem Tartrate 5 MG TABLET PO (20:00)
[2022-08-27] MEDS: Nicotine Polacrilex 2 MG GUM 4 MG BUCCAL ×2 (01:11→09:50)
[2022-08-27] MEDS: hydrOXYzine HCL 25 MG TABLET 50 MG PO ×2 (06:11→11:43)
[2022-08-27] MEDS: Cyclobenzaprine HCl 10 MG TABLET PO ×2 (06:12→12:15)
[2022-08-27 07:55] VITALS: BP 124/76; PULSE 74; RESP 16; TEMP 37; O2SAT 98
[2022-08-27] MEDS: Nicotine 21 MG PATCH.TD24 TRANSDERMA (08:30)
[2022-08-27] MEDS: DULoxetine HCl 60 MG CAPSULE.DR PO (08:30)
[2022-08-27] MEDS: busPIRone HCl 10 MG TABLET 20 MG PO (08:30)
[2022-08-27] MEDS: Gabapentin 400 MG CAPSULE 800 MG PO (08:30)
[2022-08-27] MEDS: diazePAM 5 MG TABLET 10 MG PO (08:31)
[2022-08-27] MEDS: Cyanocobalamin (Vitamin B-12) 1,000 MCG TABLET 1000 MCG PO (08:31)
[2022-08-27] MEDS: Loratadine 10 MG TABLET PO (08:31)
[2022-08-27] MEDS: methADONE HCl 20 MG/2 ML ORAL.CONC 145 MG PO (08:31)
[2022-08-27] MEDS: Topiramate 25 MG TABLET 50 MG PO (08:31)
[2022-08-27] MEDS: Propranolol HCL 10 MG TABLET PO (08:31)
[2022-08-27] MEDS: Fluticasone Propionate Nasal 16 GM SPRAY 1 SPRAY NOSTRIL-B (09:50)
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
== END 2022-08-27 12:15 | disposition other institution (70) | DRG 753 ==
LOC: HO.ED 22:59 → HO.PM5 23:01
PROVIDERS: Physician Assistant; Admitting Provider Clinical Nurse Specialist Psychiatric/Mental Health, Adult; Emergency Provider Emergency Medicine; PCP Internal Medicine; Visit Provider Psychiatry & Neurology Psychiatry
DX: F31.9 Bipolar disorder, unspecified (principal); R45.851 Suicidal ideations; F11.20 Opioid dependence, uncomplicated; F43.12 Post-traumatic stress disorder, chronic; Z59.02 Unsheltered homelessness; F17.210 Nicotine dependence, cigarettes, uncomplicated; Z71.6 Tobacco abuse counseling; Z91.013 Allergy to seafood; Z88.0 Allergy status to penicillin; Z88.2 Allergy status to sulfonamides; Z88.8 Allergy status to other drugs, medicaments and biological substances; Z79.899 Other long term (current) drug therapy
CPT/HCPCS: 36415; 80048; 80061; 80076; 80143; 80179; 80307; 81001; 82607; 82746; 83036; 83735; 84100; 84439; 84443; 85025; 87635; 93005; 99285

== ENCOUNTER 2022-08-28 01:42 | Inpatient (IN) | payer OTHER, SELFPAY ==
[2022-08-28] VITALS (7 sets, daily range): BP systolic 93–116; BP diastolic 53–63; PULSE 66–84; RESP 16; TEMP 30.9–37.1; O2SAT 97–100; BMI 31.9
[2022-08-28 02:33] LABS: COVID-19 Test Negative (Negative)
--- NOTE | 2022-08-28 03:14 | PC.NURSE ---
Patient was just seen by BHN, patient did not engage well, pretending sleeping but before N arrival patient was verbally abusive towards staff member, disposition per N is THU follow up in the morning, med rec completed/pending provider's approval, VSS, will continue to monitor
--- NOTE | 2022-08-28 04:12 | ED.PSYCH ---
HPI - Psych General Chief Complaint: Psychiatric Symptoms Stated Complaint: si Time Seen by Provider: 08/28/22 02:19 Source: patient and EMS Mode of arrival: EMS Limitations: altered mental status (And the drug abuse) History of Present Illness HPI Narrative: This is a 42-year-old female well known to our ED staff patient with history of bipolar disorder, suicidal ideation, opiate dependence came in by ambulance stating that she was suicidal however patient in the ED is high admitted to use heroin and cocaine as a speed ball patient is sleepy, cannot obtain history from the patient at this point will re-evaluate later. Related Data Home Medications Medication Instructions Recorded Confirmed methadone 10 mg/mL oral 145 mg PO DAILY 06/16/22 08/28/22 concentrate (Methadose) acetaminophen 325 mg tablet 650 mg PO DAILY PRN Pain 08/04/22 08/28/22 Previous Rx's Medication Instructions Recorded aluminum-magnesium hydroxide 200 30 ml PO Q6H PRN Heartburn/Nausea 08/27/22 mg-200 mg/5 mL oral suspension #0 mL (MAG-AL) buspirone 10 mg tablet 20 mg PO TID 30 days #180 tabs 08/27/22 cyanocobalamin (vitamin B-12) 1,000 mcg PO DAILY 30 days #30 tabs 08/27/22 1,000 mcg tablet cyclobenzaprine 10 mg tablet 10 mg PO BID PRN Muscle Spasm 30 08/27/22 days #60 tabs diazepam 10 mg tablet 10 mg PO BID@0800,1400 PRN anxiety 08/27/22 7 days #14 tabs duloxetine 60 mg capsule,delayed 60 mg PO DAILY 30 days #30 caps 08/27/22 release fluticasone propionate 50 1 spray intranasal BID 30 days #16 08/27/22 mcg/actuation nasal grams spray,suspension gabapentin 800 mg tablet 800 mg PO TID 7 days #21 tabs 08/27/22 lamotrigine 25 mg tablet See Rx Instructions .Route 08/27/22 .COMPLEX #39 tabs loratadine 10 mg tablet 10 mg PO DAILY 30 days #30 tabs 08/27/22 magnesium hydroxide 400 mg/5 mL 30 ml PO DAILY PRN Constipation #0 08/27/22 oral suspension (Milk of Magnesia) mL nicotine (polacrilex) 4 mg gum 4 mg buccal Q2H 30 days #100 ea 08/27/22 nicotine 21 mg/24 hr daily 21 mg transdermal DAILY 28 days 08/27/22 transdermal patch #28 ea propranolol 10 mg tablet 10 mg PO TID 30 days #90 tabs 08/27/22 topiramate 50 mg tablet 50 mg PO BID 30 days #60 tabs 08/27/22 zolpidem 5 mg tablet 5 mg PO BEDTIME PRN Sleep 7 days 08/27/22 #7 tabs Allergies Allergy/AdvReac Type Severity Reaction Status Date / Time quetiapine [From SEROQUEL] Allergy Severe THROAT Verified 08/19/22 11:07 SWELLING azithromycin [AZITHROMYCIN] Allergy Unknown Unknown Verified 08/19/22 11:07 erythromycin base Allergy Unknown RASH Verified 08/19/22 11:07 [ERYTHROMYCIN BASE] olanzapine [From ZYPREXA] Allergy Unknown PEDAL EDEMA Verified 08/19/22 11:07 sulfacetamide Allergy Unknown Unknown Verified 08/19/22 11:07 [From Sulfacet-R] sulfamethoxazole Allergy Unknown ITCHING Verified 08/19/22 11:07 [From BACTRIM] sulfur [From Sulfacet-R] Allergy Unknown Unknown Verified 08/19/22 11:07 trimethoprim [From BACTRIM] Allergy Unknown ITCHING Verified 08/19/22 11:07 risperidone [From RISPERDAL] AdvReac Unknown TWITCHING Verified 08/19/22 11:07 seafood AdvReac Unknown Vomiting Verified 08/19/22 11:07 shellfish derived AdvReac Unknown VOMITING Verified 08/19/22 11:07 [SHELLFISH DERIVED] trazodone AdvReac restless Verified 08/19/22 11:07 legs Review of Systems Review of Systems: Yes Unobtainable due to mental status PMFSH Past Medical History Medical History Back pain Depression Leg pain, bilateral Opioid dependence Opioid dependence Opioid use disorder, moderate, in sustained remission, dependence Rhabdomyolysis Substance abuse Substance abuse Social History Social History Household Members: None Housing: Homeless Housing Other:: patient states she is homeless Do you presently have visiting nurse or other home services: No Unable to assess alcohol history related to: Refusing to respond Alcohol intake: unknown Patient Tobacco Use Status: Former Tobacco user Quit Date: 07/22/22 Tobacco use type: Cigarette Cigarette Packs Per Day: 1 Cigarettes Per Day: 20.0 Years Smoked: 29 e-Cigarette/Vaping Use: Currently Using Second Hand Smoke Exposure: No Substance Use Type: Crack/Cocaine, Marijuana, Opiates and Prescription Drugs Advance Directives: Yes Advance Directives on File: Yes Advance Directives Date on File: 12/28/20 service: No Current occupational status: unemployed and disabled Sexual orientation: Did not discuss Physical Exam Vital Signs: Vital Signs: Last Vital Signs Temp 98.7 F 08/28/22 04:15 Pulse 84 08/28/22 01:47 Resp 16 08/28/22 01:47 BP 116/63 08/28/22 01:47 Pulse Ox 98 08/28/22 01:47 O2 Del Method 08/28/22 01:47 BMI result Body Mass Index 31.9 Vital signs have been reviewed as appeared to be correct. Blood pressure normal. Heart rate normal. Respiration rate normal. Initial temperature of 87.7 felt to be error repeat is 98.7.. Oxygen saturation normal. Appearance: Lethargic due to drug abuse. Head: Normal external exam. Normocephalic. Atraumatic. No Kaur signs noted. No raccoon eyes noted Eyes: PERRLA. EOMI. Conjunctiva and sclera normal. Eyelids normal. ENT: TM's Normal. Pharynx normal. Uvula midline. Moist mucous membranes. No trismus noted. No drooling noted. No muffled voice noted. Neck: Normal inspection. Neck supple. FROM. No adenopathy. Thyroid Normal. No meningeal signs. No neck mass noted. CVS: Normal heart rate and rhythm. Heart sound normal. No murmurs noted. Pulses normal throughout. Respiratory: No respiratory distress. Painless inspiration. Breath sounds normal. No wheezes/rales/rhonchi noted. Chest nontender. No accessory muscle usage noted or decreased air movement noted. Abdomen: Soft and nontender. Bowel sounds normal in all 4 quadrants. No distention noted. No organomegaly noted. No visible injury noted. Back: No CVA tenderness. Full range of motion noted. Skin: Skin warm and dry. Normal skin color. Normal skin turgor. No rashes/lesions/lacerations noted. Extremities: No lower extremity edema. Extremities exhibit normal range of motion. Extremities nontender. Neuro: Cranial nerve exam: II-XII are grossly intact No motor deficit. No sensory deficit. Reflexes normal. Course Course Course Narrative: Plan is re-evaluation by JEREMY in in the morning when she is more sober. Discharge Plan Discharge Clinical Impression: Cocaine abuse, Substance abuse, Bipolar 1 disorder, Suicidal ideation Patient Disposition: Still a Patient Prescriptions: No Action acetaminophen 325 mg tablet 650 mg PO DAILY PRN (Reason: Pain) nicotine 21 mg/24 hr Patch 24 Hour 21 mg transdermal DAILY 28 Days Qty: 28 0RF nicotine (polacrilex) 4 mg gum 4 mg buccal Q2H 30 Days Qty: 100 0RF propranolol 10 mg Tablet 10 mg PO TID 30 Days Qty: 90 0RF Protocol: Hold for SBP/HR < HOLD for SBP < : 90 HOLD for HR < : 60 duloxetine 60 mg Capsule,Delayed Release(Dr/Ec) 60 mg PO DAILY 30 Days Qty: 30 0RF diazepam 10 mg tablet 10 mg PO BID@0800,1400 PRN (Reason: anxiety) 7 Days Qty: 14 3RF lamotrigine 25 mg Tablet See Rx Instructions .ROUTE .COMPLEX Qty: 39 0RF Rx Instructions: take 1 tab at bedtime for 11 days; then take 1 tab BID magnesium hydroxide [Milk of Magnesia] 400 mg/5 mL Suspension 30 ml PO DAILY PRN (Reason: Constipation) Qty: 0 0RF MAG-AL 200-200 mg/5 mL Suspension 30 ml PO Q6H PRN (Reason: Heartburn/Nausea) Qty: 0 0RF cyclobenzaprine 10 mg tablet 10 mg PO BID PRN (Reason: Muscle Spasm) 30 Days Qty: 60 0RF cyanocobalamin (vitamin B-12) 1,000 mcg tablet 1,000 mcg PO DAILY 30 Days Qty: 30 0RF gabapentin 800 mg tablet 800 mg PO TID 7 Days Qty: 21 3RF buspirone 10 mg tablet 20 mg PO TID 30 Days Qty: 180 0RF zolpidem 5 mg tablet 5 mg PO BEDTIME PRN (Reason: Sleep) 7 Days Qty: 7 3RF fluticasone propionate 50 mcg/actuation spray,suspension 1 spray intranasal BID 30 Days Qty: 16 0RF loratadine 10 mg tablet 10 mg PO DAILY 30 Days Qty: 30 0RF topiramate 50 mg tablet 50 mg PO BID 30 Days Qty: 60 0RF methadone [Methadose] 10 mg/mL concentrate 145 mg PO DAILY Rx Instructions: Partial Fill upon patient request. Interventions: [place]-Suicide Risk Severity Scale Last Done: 08/28/22 01:55
--- NOTE | 2022-08-28 06:38 | PC.NURSE ---
Patient slept through the night, disposition THU follow up by estuardo LUNA rec completed/pending provider's approval, pending urine sample for TOX screen, no lab ordered patient was discharged from yesterday, VSS, will continue to monitor.
--- NOTE | 2022-08-28 10:01 | PC.NURSE ---
Per Dr. Silverman okay to hold meds until more awake.
--- NOTE | 2022-08-28 10:02 | MHC.RECOVRN ---
Met with pt in [facility] to follow up after pt represented to ED. Pt had been discharged from yesterday with the plan to obtain toiletries prior to presenting to [facility] ATS, with the goal of waiting in ATS for a few days until a CSS bed opens. Pt reports inability to make it to [facility] and thus called an ambulance to come here. Unfortunately [facility] does not have availability today. Pt continues to be on a contract with [facility] and is unable to be accepted at their ATS. Discussed with Liset Brambila APRN, plan to dc pt to [facility] for outpatient support and follow up with [facility] tomorrow. CARE Team and RN aware.
[2022-08-28] MEDS: DULoxetine HCl 60 MG CAPSULE.DR PO (11:49)
[2022-08-28] MEDS: Cyclobenzaprine HCl 10 MG TABLET PO (11:49)
[2022-08-28] MEDS: busPIRone HCl 10 MG TABLET 20 MG PO ×3 (11:49→20:35)
[2022-08-28] MEDS: diazePAM 5 MG TABLET 10 MG PO (11:50)
[2022-08-28] MEDS: Gabapentin 400 MG CAPSULE 800 MG PO ×3 (11:50→20:35)
[2022-08-28] MEDS: Propranolol HCL 10 MG TABLET PO ×3 (11:51→20:35)
[2022-08-28] MEDS: Topiramate 25 MG TABLET 50 MG PO ×2 (11:51→20:35)
[2022-08-28] MEDS: methADONE HCl 20 MG/2 ML ORAL.CONC 145 MG PO (11:51)
--- NOTE | 2022-08-28 12:19 | PC.NURSE ---
Per care team: Hold d/c at this time unitl disp is confirmed to be outpatient or admission to floor with recommendation for s35
--- NOTE | 2022-08-28 13:50 | ECG_ITS ---
Test Reason : MED CLEARANCE FOR ADMIT Blood Pressure : / mmHG Vent. Rate : 067 BPM Atrial Rate : 067 BPM P-R Int : 178 ms QRS Dur : 084 ms QT Int : 478 ms P-R-T Axes : 023 030 -13 degrees QTc Int : 505 ms Normal sinus rhythm Possible Inferior infarct (cited on or before 28-AUG-2022) Abnormal ECG When compared with ECG of 19-AUG-2022 14:51, Nonspecific T wave abnormality now evident in Inferior leads Referred By: Tulio Silverman Electronically Signed By:BRANNON FRANKLIN MD
--- NOTE | 2022-08-28 13:51 | PC.NURSE ---
per care team: pt to be admitted to [facility]/
[2022-08-28 14:22] LABS: Amphetamine Screen Urine Not Detected (Not Detect); Barbiturates, Urine Not Detected (Not Detect); Benzodiazepines Screen Urine POSITIVE (Not Detect); Cannabinoid Screen Urine Not Detected (Not Detect); Cocaine Screen Urine POSITIVE (Not Detect); Fentanyl, urine Not Detected (Not Detect); Opiate Screen Urine POSITIVE (Not Detect); Phencyclidine Screen Urine Not Detected (Not Detect)
[2022-08-28 17:06] LABS: MANUAL DIFF FLAG NO
[2022-08-28 17:09] LABS: Basophils Percent Auto 0.7 % (0-2); Eosinophils Absolute Auto 0.1 X10*3/uL (0.0-0.4); Eosinophils Percent Auto 2.6 % (0-4); Hemoglobin 12.4 g/dl (12.0-16.0); Imm Gran Abs Auto 0.01 X10*3/uL (0.00-0.03); Imm Gran Pct Auto 0.4 % (0.0-0.4); Lymphocytes Absolute Auto 1.1 X10*3/uL (1.2-4.9); Lymphocytes Percent Auto 41.3 % (20-40); Mean Corpuscular HGB Conc 33.5 g/dl (31.0-35.0); Mean Corpuscular Hemoglobin 29.8 pg (27.0-33.0); Mean Corpuscular Volume 88.9 fL (80.0-98.0); Mean Platelet Volume 10.2 fL (9.4-12.3); Monocytes Absolute Auto 0.2 X10*3/uL (0.1-1.2); Monocytes Percent Auto 8.6 % (2-11); Neutrophils Absolute Auto 1.3 x10*3/uL (2.0-8.3); Neutrophils Percent Auto 46.4 % (45-73); Platelet Count 105 X10*3/uL (160-400); Red Blood Count 4.16 X10*6/uL (4.20-5.50); Red Cell Distribution Width 13.1 % (11.0-16.0); White Blood Count 2.7 X10*3/uL (4.8-10.8)
[2022-08-28 17:27] LABS: Alanine Aminotransferase 57 U/L (0-31); Albumin Level 3.6 g/dL (3.5-5.0); Alkaline Phosphatase 75 U/L (39-117); Anion Gap 11 (12-20); Aspartate Amino Transferase 63 U/L (5-31); Bilirubin Total 0.7 mg/dL (0.0-1.0); Blood Urea Nitrogen 15 mg/dL (9-16); Calcium 8.9 mg/dL (8.4-10.2); Carbon Dioxide 25 mmol/L (22-29); Chloride 109 mmol/L (96-108); Creatinine Clr Calc Pharmacy 112.5; Estimated Glomerular Filt Rate > 60; Glucose Random 143 mg/dL (60-115); Potassium 3.5 mmol/L (3.3-5.1); Sodium 141 mmol/L (135-145); Total Protein 6.1 g/dL (6.5-8.0)
[2022-08-28] MEDS: Nicotine Polacrilex 2 MG GUM 4 MG BUCCAL (20:34)
[2022-08-28] MEDS: Magnesium Hydrox/Alum Hydrox 30 ML ORAL.SUSP PO (20:34)
[2022-08-28] MEDS: lamoTRIgine 25 MG TABLET PO (20:35)
--- NOTE | 2022-08-28 23:11 | PC.NURSE ---
Carlota was admitted to [facility] at 1740 from [facility] on a CV for treatment of Unspecified depressive d-o; Opioid use d-o, severe; Stimulant use d-o, severe, cocaine; polysubstance use. Precipitant of admission includes SI following discharge from [facility] yesterday (08/27/22) and substance abuse relapse. Pt A&O, INAD, pleasant and cooperative, responds appropriately. Dns SI/HI/AH/VH/safety concerns. Reported GI discomfort after supper and was administered Maalox wge. Mood is depressed; Affect is flat, however brightened when she was able to get ice cream from the kitchen.? Thought process linear. Substance issues: UTOX +OPI, +BZO, +MARLENY. Pt was scheduled to enter [facility] but did not go there after d-c from [facility]. Safety checks: Q15.
[2022-08-29] MEDS: Cyclobenzaprine HCl 10 MG TABLET PO ×2 (02:31→13:38)
[2022-08-29] MEDS: Nicotine Polacrilex 2 MG GUM 4 MG BUCCAL ×4 (02:31→21:22)
[2022-08-29] MEDS: Acetaminophen 325 MG TABLET 650 MG PO ×2 (02:32→21:05)
[2022-08-29 08:00] VITALS: BP 90/51; TEMP 36.3; O2SAT 97
--- NOTE | 2022-08-29 08:25 | PC.NURSE ---
Pt refused AM labs this morning
[2022-08-29] MEDS: Gabapentin 400 MG CAPSULE 800 MG PO ×3 (08:27→21:08)
[2022-08-29] MEDS: Topiramate 25 MG TABLET 50 MG PO ×2 (08:27→21:12)
[2022-08-29] MEDS: busPIRone HCl 10 MG TABLET 20 MG PO ×3 (08:28→21:03)
[2022-08-29] MEDS: DULoxetine HCl 60 MG CAPSULE.DR PO (08:28)
[2022-08-29] MEDS: methADONE HCl 20 MG/2 ML ORAL.CONC 145 MG PO (08:29)
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
[2022-08-29 15:12] VITALS: BP 108/54; PULSE 63
[2022-08-29 21:00] VITALS: BP 109/67; PULSE 62; RESP 14; TEMP 36.5; O2SAT 98
[2022-08-29] MEDS: diazePAM 5 MG TABLET 10 MG PO (21:08)
[2022-08-29] MEDS: Propranolol HCL 10 MG TABLET PO (21:09)
[2022-08-29] MEDS: lamoTRIgine 25 MG TABLET PO (21:09)
[2022-08-29] MEDS: Zolpidem Tartrate 5 MG TABLET PO (21:13)
[2022-08-30] MEDS: Cyclobenzaprine HCl 10 MG TABLET PO ×2 (02:34→17:50)
[2022-08-30 08:45] VITALS: BP 92/57; PULSE 65; RESP 16; TEMP 36.7; O2SAT 93
[2022-08-30] MEDS: busPIRone HCl 10 MG TABLET 20 MG PO ×3 (08:47→21:33)
[2022-08-30] MEDS: Gabapentin 400 MG CAPSULE 800 MG PO ×3 (08:47→21:34)
[2022-08-30] MEDS: diazePAM 5 MG TABLET 10 MG PO ×2 (08:47→14:17)
[2022-08-30] MEDS: DULoxetine HCl 60 MG CAPSULE.DR PO (08:47)
[2022-08-30] MEDS: Topiramate 25 MG TABLET 50 MG PO ×2 (08:47→21:34)
[2022-08-30] MEDS: methADONE HCl 20 MG/2 ML ORAL.CONC 145 MG PO (08:50)
[2022-08-30] MEDS: Nicotine Polacrilex 2 MG GUM 4 MG BUCCAL ×4 (09:51→23:53)
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
[2022-08-30] MEDS: Propranolol HCL 10 MG TABLET PO ×2 (14:17→21:34)
[2022-08-30 15:05] LABS: UPreg QC Valid YES; Urine Pregnancy NEGATIVE (NEGATIVE)
[2022-08-30] MEDS: Acetaminophen 325 MG TABLET 650 MG PO (17:50)
[2022-08-30] MEDS: hydrOXYzine HCL 25 MG TABLET PO (17:50)
[2022-08-30] MEDS: Zolpidem Tartrate 5 MG TABLET PO (21:34)
[2022-08-30] MEDS: lamoTRIgine 25 MG TABLET PO (21:34)
[2022-08-30 21:35] VITALS: BP 122/58; PULSE 65; RESP 16; TEMP 36.2; O2SAT 98
[2022-08-31] MEDS: hydrOXYzine HCL 25 MG TABLET PO (07:21)
[2022-08-31] MEDS: Cyclobenzaprine HCl 10 MG TABLET PO (07:21)
[2022-08-31] MEDS: Acetaminophen 325 MG TABLET 650 MG PO (07:22)
[2022-08-31] MEDS: DULoxetine HCl 60 MG CAPSULE.DR PO (08:01)
[2022-08-31] MEDS: Propranolol HCL 10 MG TABLET PO ×3 (08:01→21:42)
[2022-08-31] MEDS: busPIRone HCl 10 MG TABLET 20 MG PO ×3 (08:01→21:41)
[2022-08-31] MEDS: Topiramate 25 MG TABLET 50 MG PO ×2 (08:01→21:42)
[2022-08-31] MEDS: diazePAM 5 MG TABLET 10 MG PO ×2 (08:01→14:11)
[2022-08-31] MEDS: Gabapentin 400 MG CAPSULE 800 MG PO ×3 (08:01→21:42)
[2022-08-31] MEDS: methADONE HCl 20 MG/2 ML ORAL.CONC 145 MG PO (08:01)
[2022-08-31 08:10] VITALS: BP 109/60; PULSE 76; RESP 16; TEMP 36.4; O2SAT 96
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
[2022-08-31] MEDS: Nicotine Polacrilex 2 MG GUM 4 MG BUCCAL (14:11)
[2022-08-31] MEDS: lamoTRIgine 25 MG TABLET PO (21:42)
[2022-08-31 21:48] VITALS: BP 116/68; PULSE 65; RESP 16; TEMP 36.7; O2SAT 98
[2022-08-31] MEDS: Zolpidem Tartrate 5 MG TABLET PO (22:41)
[2022-09-01 08:00] VITALS: BP 123/76; PULSE 72; TEMP 36.4; O2SAT 95
[2022-09-01] MEDS: methADONE HCl 20 MG/2 ML ORAL.CONC 145 MG PO (08:03)
[2022-09-01] MEDS: Gabapentin 400 MG CAPSULE 800 MG PO ×3 (08:06→22:13)
[2022-09-01] MEDS: diazePAM 5 MG TABLET 10 MG PO (08:06)
[2022-09-01] MEDS: busPIRone HCl 10 MG TABLET 20 MG PO ×3 (08:07→22:13)
[2022-09-01] MEDS: Topiramate 25 MG TABLET 50 MG PO ×2 (08:07→22:14)
[2022-09-01] MEDS: Propranolol HCL 10 MG TABLET PO ×3 (08:08→22:14)
[2022-09-01] MEDS: DULoxetine HCl 60 MG CAPSULE.DR PO (08:08)
[2022-09-01] MEDS: hydrOXYzine HCL 25 MG TABLET PO ×2 (08:18→16:16)
[2022-09-01] MEDS: Cyclobenzaprine HCl 10 MG TABLET PO (08:18)
[2022-09-01] MEDS: Nicotine Polacrilex 2 MG GUM 4 MG BUCCAL ×4 (10:02→16:16)
[2022-09-01] MEDS: hydrOXYzine HCL 25 MG TABLET 50 MG PO (10:35)
[2022-09-01] MEDS: diazePAM 5 MG TABLET PO (14:25)
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
[2022-09-01] MEDS: lamoTRIgine 25 MG TABLET PO (22:14)
[2022-09-01 22:15] VITALS: BP 116/85; PULSE 67; RESP 16; TEMP 36.3; O2SAT 99
[2022-09-01] MEDS: Zolpidem Tartrate 5 MG TABLET PO (22:19)
[2022-09-02 08:15] VITALS: BP 127/61; PULSE 71; RESP 18; TEMP 36.5; O2SAT 100
[2022-09-02] MEDS: methADONE HCl 20 MG/2 ML ORAL.CONC 145 MG PO (09:11)
[2022-09-02] MEDS: Topiramate 25 MG TABLET 50 MG PO ×2 (09:14→21:38)
[2022-09-02] MEDS: busPIRone HCl 10 MG TABLET 20 MG PO ×3 (09:15→21:38)
[2022-09-02] MEDS: diazePAM 5 MG TABLET PO ×2 (09:15→15:09)
[2022-09-02] MEDS: Propranolol HCL 10 MG TABLET PO ×3 (09:16→22:31)
[2022-09-02] MEDS: DULoxetine HCl 60 MG CAPSULE.DR PO (09:16)
[2022-09-02] MEDS: Gabapentin 400 MG CAPSULE 800 MG PO ×3 (09:17→21:37)
[2022-09-02] MEDS: Cyclobenzaprine HCl 10 MG TABLET PO ×2 (09:22→22:30)
[2022-09-02 13:05] VITALS: BP 112/68; PULSE 68; RESP 18; TEMP 36.5; O2SAT 96
[2022-09-02] MEDS: Nicotine 21 MG PATCH.TD24 TRANSDERMA (14:27)
[2022-09-02] MEDS: Nicotine Polacrilex 2 MG GUM 4 MG BUCCAL (14:28)
[2022-09-02] MEDS: Fluticasone Propionate Nasal 16 GM SPRAY 2 SPRAY NOSTRIL-B (14:28)
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
[2022-09-02] MEDS: hydrOXYzine HCL 25 MG TABLET PO (18:30)
[2022-09-02] MEDS: lamoTRIgine 25 MG TABLET PO (21:38)
[2022-09-02 21:45] VITALS: BP 104/57; PULSE 65; RESP 16; TEMP 36.4; O2SAT 98
[2022-09-03] MEDS: hydrOXYzine HCL 25 MG TABLET PO ×2 (03:46→08:36)
[2022-09-03] MEDS: Nicotine 21 MG PATCH.TD24 TRANSDERMA (08:22)
[2022-09-03] MEDS: Topiramate 25 MG TABLET 50 MG PO ×2 (08:23→21:07)
[2022-09-03] MEDS: diazePAM 2 MG TABLET PO (08:23)
[2022-09-03] MEDS: Gabapentin 400 MG CAPSULE 800 MG PO ×3 (08:23→21:07)
[2022-09-03] MEDS: DULoxetine HCl 60 MG CAPSULE.DR PO (08:23)
[2022-09-03] MEDS: busPIRone HCl 10 MG TABLET 20 MG PO ×3 (08:23→21:06)
[2022-09-03] MEDS: Propranolol HCL 10 MG TABLET PO ×3 (08:24→21:07)
[2022-09-03] MEDS: methADONE HCl 20 MG/2 ML ORAL.CONC 145 MG PO (08:24)
[2022-09-03] MEDS: Cyclobenzaprine HCl 10 MG TABLET PO ×2 (08:36→21:07)
[2022-09-03] MEDS: Fluticasone Propionate Nasal 16 GM SPRAY 2 SPRAY NOSTRIL-B (08:51)
[2022-09-03 09:01] VITALS: BP 101/64; PULSE 80; RESP 16; TEMP 36.7; O2SAT 97
[2022-09-03] MEDS: Acetaminophen 325 MG TABLET 650 MG PO (11:52)
[2022-09-03] MEDS: diazePAM 2 MG TABLET 3 MG PO (13:14)
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
[2022-09-03] MEDS: diazePAM 5 MG TABLET PO ×3 (14:35→21:07)
[2022-09-03] MEDS: Nicotine Polacrilex 2 MG GUM 4 MG BUCCAL ×2 (15:48→18:23)
[2022-09-03 16:34] VITALS: BP 137/60; PULSE 71
[2022-09-03 20:56] VITALS: BP 132/73; PULSE 69; RESP 18; TEMP 35.9; O2SAT 100
[2022-09-03] MEDS: lamoTRIgine 25 MG TABLET PO (21:07)
[2022-09-03] MEDS: hydrOXYzine HCL 50 MG TABLET PO (21:07)
[2022-09-03] MEDS: Mineral Oil/Petrolatum,White 106 GM Tube 1 APPL TOPICAL (21:10)
[2022-09-04] MEDS: diazePAM 5 MG TABLET PO ×3 (03:49→14:29)
[2022-09-04] MEDS: Nicotine Polacrilex 2 MG GUM 4 MG BUCCAL ×6 (05:04→20:36)
[2022-09-04] MEDS: hydrOXYzine HCL 25 MG TABLET PO ×3 (05:05→17:12)
[2022-09-04 06:00] VITALS: BP 126/69; PULSE 71; RESP 16; TEMP 36.4; O2SAT 98
[2022-09-04 07:00] VITALS: BMI 38.1
[2022-09-04] MEDS: Propranolol HCL 10 MG TABLET PO ×3 (08:50→20:34)
[2022-09-04] MEDS: Gabapentin 400 MG CAPSULE 800 MG PO ×3 (08:50→20:34)
[2022-09-04] MEDS: DULoxetine HCl 60 MG CAPSULE.DR PO (08:50)
[2022-09-04] MEDS: busPIRone HCl 10 MG TABLET 20 MG PO ×3 (08:50→20:34)
[2022-09-04] MEDS: Nicotine 21 MG PATCH.TD24 TRANSDERMA (08:50)
[2022-09-04] MEDS: Topiramate 25 MG TABLET 50 MG PO ×2 (08:51→20:34)
[2022-09-04] MEDS: methADONE HCl 20 MG/2 ML ORAL.CONC 145 MG PO (08:52)
[2022-09-04] MEDS: Cyclobenzaprine HCl 10 MG TABLET PO ×2 (08:56→20:34)
[2022-09-04] MEDS: Fluticasone Propionate Nasal 16 GM SPRAY 2 SPRAY NOSTRIL-B (10:24)
[2022-09-04] MEDS: Mineral Oil/Petrolatum,White 106 GM Tube 1 APPL TOPICAL (10:24)
[2022-09-04] MEDS: Lidocaine 4 % Patch ADH..PATCH 3 PATCH TRANSDERMA (13:36)
[2022-09-04 14:14] VITALS: BP 104/64; PULSE 69; O2SAT 98
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
[2022-09-04 20:28] VITALS: BP 134/94; PULSE 67; RESP 16; TEMP 35.8; O2SAT 98
[2022-09-04] MEDS: lamoTRIgine 25 MG TABLET PO (20:34)
[2022-09-04] MEDS: hydrOXYzine HCL 50 MG TABLET PO (20:34)
[2022-09-05] MEDS: Nicotine Polacrilex 2 MG GUM 4 MG BUCCAL ×3 (04:52→11:54)
[2022-09-05] MEDS: hydrOXYzine HCL 25 MG TABLET PO ×2 (04:52→11:54)
[2022-09-05] MEDS: Cyclobenzaprine HCl 10 MG TABLET PO ×2 (04:53→11:54)
[2022-09-05 08:15] VITALS: BP 105/65; PULSE 71; RESP 18; TEMP 36.6; O2SAT 99
[2022-09-05] MEDS: Gabapentin 400 MG CAPSULE 800 MG PO (08:22)
[2022-09-05] MEDS: Nicotine 21 MG PATCH.TD24 TRANSDERMA (08:22)
[2022-09-05] MEDS: DULoxetine HCl 60 MG CAPSULE.DR PO (08:22)
[2022-09-05] MEDS: Propranolol HCL 10 MG TABLET PO (08:23)
[2022-09-05] MEDS: diazePAM 5 MG TABLET PO (08:23)
[2022-09-05] MEDS: busPIRone HCl 10 MG TABLET 20 MG PO (08:23)
[2022-09-05] MEDS: Topiramate 25 MG TABLET 50 MG PO (08:23)
[2022-09-05] MEDS: methADONE HCl 20 MG/2 ML ORAL.CONC 145 MG PO (08:25)
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
--- NOTE | 2022-09-05 12:39 | PC.NURSE ---
Carlota is discharged on section 35 at this time.
== END 2022-09-05 12:39 | disposition other institution (70) | DRG 753 ==
LOC: HO.ED 13:55 → HO.PADLT16 16:49
PROVIDERS: Psychiatry & Neurology Psychiatry; Social Worker; Admitting Provider Psychiatry & Neurology Psychiatry; Emergency Provider Emergency Medicine; Visit Provider Psychiatry & Neurology Psychiatry
DX: F31.9 Bipolar disorder, unspecified (principal); R45.851 Suicidal ideations; F11.20 Opioid dependence, uncomplicated; F43.12 Post-traumatic stress disorder, chronic; F17.210 Nicotine dependence, cigarettes, uncomplicated; F14.10 Cocaine abuse, uncomplicated; Z20.822 Contact with and (suspected) exposure to COVID-19; Z71.6 Tobacco abuse counseling; Z56.0 Unemployment, unspecified; Z88.2 Allergy status to sulfonamides; Z88.1 Allergy status to other antibiotic agents; Z88.8 Allergy status to other drugs, medicaments and biological substances; Z91.013 Allergy to seafood; Z79.51 Long term (current) use of inhaled steroids; Z79.899 Other long term (current) drug therapy
CPT/HCPCS: 36415; 80053; 80307; 81025; 85025; 87635; 93005; 99285

== ENCOUNTER 2022-11-26 03:40 | Emergency (ER) | payer OTHER, SELFPAY ==
[2022-11-26 03:59] VITALS: PULSE 78; PULSE 79; RESP 16; TEMP 36.6; O2SAT 96; O2SAT 98; BMI 38.0
--- NOTE | 2022-11-26 06:13 | ED.OVERDOSE ---
HPI - Overdose General Chief Complaint: Overdose Stated Complaint: drug use Time Seen by Provider: 11/26/22 04:34 Source: EMS Mode of arrival: EMS Limitations: altered mental status History of Present Illness HPI Narrative: Patient history of opiates and cocaine and benzos was found unresponsive received 4 mg of Narcan intranasally 3 times by [address] awake now refusing to answer any questions no signs of injury Related Data Home Medications Medication Instructions Recorded Confirmed methadone 10 mg/mL oral 145 mg PO DAILY 06/16/22 08/28/22 concentrate (Methadose) acetaminophen 325 mg tablet 650 mg PO DAILY PRN Pain 08/04/22 08/28/22 Previous Rx's Medication Instructions Recorded aluminum-magnesium hydroxide 200 30 ml PO Q6H PRN Heartburn/Nausea 08/27/22 mg-200 mg/5 mL oral suspension #0 mL (MAG-AL) buspirone 10 mg tablet 20 mg PO TID 30 days #180 tabs 08/27/22 cyanocobalamin (vitamin B-12) 1,000 mcg PO DAILY 30 days #30 tabs 08/27/22 1,000 mcg tablet cyclobenzaprine 10 mg tablet 10 mg PO BID PRN Muscle Spasm 30 08/27/22 days #60 tabs duloxetine 60 mg capsule,delayed 60 mg PO DAILY 30 days #30 caps 08/27/22 release fluticasone propionate 50 1 spray intranasal BID 30 days #16 08/27/22 mcg/actuation nasal grams spray,suspension gabapentin 800 mg tablet 800 mg PO TID 7 days #21 tabs 08/27/22 lamotrigine 25 mg tablet See Rx Instructions .Route 08/27/22 .COMPLEX #39 tabs loratadine 10 mg tablet 10 mg PO DAILY 30 days #30 tabs 08/27/22 magnesium hydroxide 400 mg/5 mL 30 ml PO DAILY PRN Constipation #0 08/27/22 oral suspension (Milk of Magnesia) mL nicotine (polacrilex) 4 mg gum 4 mg buccal Q2H 30 days #100 ea 08/27/22 nicotine 21 mg/24 hr daily 21 mg transdermal DAILY 28 days 08/27/22 transdermal patch #28 ea propranolol 10 mg tablet 10 mg PO TID 30 days #90 tabs 08/27/22 topiramate 50 mg tablet 50 mg PO BID 30 days #60 tabs 08/27/22 diazepam 2 mg tablet 5 mg PO BID@0900,1500 #0 tabs 09/05/22 hydroxyzine HCl 25 mg tablet 25 mg PO Q6H PRN Anxiety #0 tabs 09/05/22 hydroxyzine HCl 50 mg tablet 50 mg PO BEDTIME PRN Insomnia #0 09/05/22 tabs lidocaine 4 % topical patch 3 patch transdermal DAILY PRN low 09/05/22 (Lidocaine Pain Relief) back pain #0 ea white petrolatum-mineral oil 1 appl topical BID #0 grams 09/05/22 topical cream (Dermacerin topical cream) Allergies Allergy/AdvReac Type Severity Reaction Status Date / Time quetiapine [From SEROQUEL] Allergy Severe THROAT Verified 08/19/22 11:07 SWELLING azithromycin [AZITHROMYCIN] Allergy Unknown Unknown Verified 08/19/22 11:07 erythromycin base Allergy Unknown RASH Verified 08/19/22 11:07 [ERYTHROMYCIN BASE] olanzapine [From ZYPREXA] Allergy Unknown PEDAL EDEMA Verified 08/19/22 11:07 sulfacetamide Allergy Unknown Unknown Verified 08/19/22 11:07 [From Sulfacet-R] sulfamethoxazole Allergy Unknown ITCHING Verified 08/19/22 11:07 [From BACTRIM] sulfur [From Sulfacet-R] Allergy Unknown Unknown Verified 08/19/22 11:07 trimethoprim [From BACTRIM] Allergy Unknown ITCHING Verified 08/19/22 11:07 risperidone [From RISPERDAL] AdvReac Unknown TWITCHING Verified 08/19/22 11:07 seafood AdvReac Unknown Vomiting Verified 08/19/22 11:07 shellfish derived AdvReac Unknown VOMITING Verified 08/19/22 11:07 [SHELLFISH DERIVED] trazodone AdvReac restless Verified 08/19/22 11:07 legs Review of Systems Review of Systems: Yes Unobtainable due to mental status PMFSH Past Medical History Medical History Back pain Bipolar 1 disorder Depression Leg pain, bilateral Opioid dependence Opioid dependence Opioid use disorder, moderate, in sustained remission, dependence Rhabdomyolysis Substance abuse Substance abuse Social History Social History Household Members: None Housing: Homeless Housing Other:: patient states she is homeless Do you presently have visiting nurse or other home services: No Unable to assess alcohol history related to: Refusing to respond Alcohol intake: unknown Patient Tobacco Use Status: Current everyday Tobacco user Tobacco use type: Cigarette Cigarette Packs Per Day: 1 Cigarettes Per Day: 20.0 Years Smoked: 29 e-Cigarette/Vaping Use: Currently Using Second Hand Smoke Exposure: No Substance Use Type: Crack/Cocaine, Opiates and Tranquilizers Advance Directives: Yes Advance Directives on File: Yes Advance Directives Date on File: 12/28/20 service: No Current occupational status: unemployed and disabled Sexual orientation: Don't Know Physical Exam Vital Signs: Vital Signs: Last Vital Signs Temp 97.8 F 11/26/22 03:59 Pulse 78 11/26/22 03:59 Resp 16 11/26/22 03:59 Pulse Ox 98 11/26/22 03:59 O2 Del Method 11/26/22 03:59 BMI result Body Mass Index 38.0 Appearance: Alert. Sleepy No acute distress. Eyes: PERRLA, No Nystagmus HEENT: Pharynx normal. Oral Mucosa moist AT NC Neck: Normal inspection. Neck supple. CVS: Normal heart rate and rhythm. Pulses normal. Respiratory: No respiratory distress. Equal air entry bilateral, no wheezing/rales/rhonchi decreased air entry bilateral Abdomen: Soft and nontender. Bowel sounds are present, no mass palpable, no CVA tenderness Skin: Skin warm and dry. Normal skin color. Normal skin turgor. Extremities: No lower extremity edema. No calf tenderness Neuro: Lethargic easily arousable No motor deficit. No sensory deficit.No cerebellar signs , cranial nerves II-XII intact Medical Decision Making Medical Decision Making MDM Narrative: Patient's history of opiates benzo and cocaine use was found semi conscious responded to Narcan. Wait for her to sober up if possible get the urine and get the detox consultation Discharge Plan Discharge Clinical Impression: Polysubstance use disorder Patient Disposition: Still a Patient Prescriptions: No Action acetaminophen 325 mg tablet 650 mg PO DAILY PRN (Reason: Pain) nicotine 21 mg/24 hr Patch 24 Hour 21 mg transdermal DAILY 28 Days Qty: 28 0RF nicotine (polacrilex) 4 mg gum 4 mg buccal Q2H 30 Days Qty: 100 0RF propranolol 10 mg Tablet 10 mg PO TID 30 Days Qty: 90 0RF Protocol: Hold for SBP/HR < HOLD for SBP < : 90 HOLD for HR < : 60 duloxetine 60 mg Capsule,Delayed Release(Dr/Ec) 60 mg PO DAILY 30 Days Qty: 30 0RF lamotrigine 25 mg Tablet See Rx Instructions .ROUTE .COMPLEX Qty: 39 0RF Rx Instructions: take 1 tab at bedtime for 11 days; then take 1 tab BID magnesium hydroxide [Milk of Magnesia] 400 mg/5 mL Suspension 30 ml PO DAILY PRN (Reason: Constipation) Qty: 0 0RF MAG-AL 200-200 mg/5 mL Suspension 30 ml PO Q6H PRN (Reason: Heartburn/Nausea) Qty: 0 0RF cyclobenzaprine 10 mg tablet 10 mg PO BID PRN (Reason: Muscle Spasm) 30 Days Qty: 60 0RF cyanocobalamin (vitamin B-12) 1,000 mcg tablet 1,000 mcg PO DAILY 30 Days Qty: 30 0RF gabapentin 800 mg tablet 800 mg PO TID 7 Days Qty: 21 3RF buspirone 10 mg tablet 20 mg PO TID 30 Days Qty: 180 0RF fluticasone propionate 50 mcg/actuation spray,suspension 1 spray intranasal BID 30 Days Qty: 16 0RF loratadine 10 mg tablet 10 mg PO DAILY 30 Days Qty: 30 0RF topiramate 50 mg tablet 50 mg PO BID 30 Days Qty: 60 0RF methadone [Methadose] 10 mg/mL concentrate 145 mg PO DAILY Rx Instructions: Partial Fill upon patient request. lidocaine [Lidocaine Pain Relief] 4 % Adhesive Patch,Medicated 3 patch transdermal DAILY PRN (Reason: low back pain) Qty: 0 0RF Protocol: Apply to: Apply to: affected areas of lower back hydroxyzine HCl 50 mg Tablet 50 mg PO BEDTIME PRN (Reason: Insomnia) Qty: 0 0RF diazepam 2 mg Tablet 5 mg PO BID@0900,1500 Qty: 0 0RF hydroxyzine HCl 25 mg Tablet 25 mg PO Q6H PRN (Reason: Anxiety) Qty: 0 0RF Dermacerin Cream 1 appl topical BID Qty: 0 0RF Protocol: Apply to: Apply to: affected areas - dry skin
--- NOTE | 2022-11-26 06:37 | PC.NURSE ---
This pt presented to the ED via EMS after being found unresponsive and being administered 12mg INH Narcan by PD prior to EMS arrival. On arrival to ED pt is awake, drowsy, makes eye contact with RN. She is oriented to person, not to place or time. Pt is unable to tell us what happened prior to her arrival to the ED. On many occasional she has forgotten where she is and on one occasion got OOB and attempted to walk towards the waiting room. SHe was redirected back to her 18H stretcher where she has been resting since, occasionally taking ice cream and water. Respirations are non-labored. She is not indicating or complaining of pain. She has no difficulty taking PO food or fluids. We will continue to monitor Yulissa.
--- NOTE | 2022-11-26 07:56 | PC.NURSE ---
Resting in bed, awaiting urine test and ?detox placement. Diet ordered.
[2022-11-26] MEDS: Acetaminophen 325 MG TABLET 650 MG PO (10:47)
[2022-11-26 10:57] VITALS: BP 111/57; PULSE 58; RESP 16; O2SAT 100
--- NOTE | 2022-11-26 11:06 | HO.SUDE ---
Met with pt in [id number] to discuss substance use. Pt sitting in bed, awake, alert, easily engages in conversation. Pt reports having been Sect [facility] from [facility] and was discharged yesterday after 90 days. Pt had been at [facility], reports receiving 145 mg methadone, last dose yesterday. Pt reports taking 10-15 1 mg clonazepam yesterday, along with a couple bags of heroin. Pt states I can't even walk now. That happened fast. Pt is requesting a medical workup, mihir ming, and ice cream. Will continue to follow. RN aware.
--- NOTE | 2022-11-26 12:40 | MHC.RECOVRN ---
Addendum entered by Rita Sánchez RN 11/26/22 14:08: Dose verification received from Dr. Gonsales, patient received 145mg 11/25/22 @6:00am. MTD Verification faxed to pharmacy. Original Note: This promotion writer called the [facility] at [phone] to obtain MTD last dose verification, left voicemail with contact information.
--- NOTE | 2022-11-26 15:00 | HE.PHANOTE ---
RE METHADONE WRAP PROGRAM DOSE: 145 MG LAST TAKEN: 11/25 @0600 LOVELY
--- NOTE | 2022-11-26 15:12 | PHA.MEDREC ---
Pharmacy Consult ? Medication Reconciliation Pharmacy has completed the medication reconciliation. she states shes on Ambien (last fill 07/16/22), klonopin (last filled 07/31/22) and gabapentin (last filled 07/02/22) all per the PDMP, provider agreed to keep out of list due to noncompliance
[2022-11-26] MEDS: methADONE HCl 20 MG/2 ML ORAL.CONC 145 MG PO (15:35)
[2022-11-26] MEDS: Ibuprofen 600 MG TABLET PO (15:35)
[2022-11-26 16:00] VITALS: BP 120/70; PULSE 72; RESP 16; TEMP 36.9; O2SAT 96
--- NOTE | 2022-11-26 16:00 | MHC.EDTECH ---
this pct assumed care of pt at 1500 ,1600 rounding done ,vitals sign taken pt sleeping .
--- NOTE | 2022-11-26 16:18 | MHC.RECOVRN ---
This caption writer met with patient, patient sleeping under blankets, awake to verbal commands. Patient requesting detox. 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 Patient has since been medically cleared. Detox referral sent to [facility] and [facility]. There are no female detox beds open at [facility] today. Recovery Coaches this evening to f/u on referrals placed to [facility] and [facility].
--- NOTE | 2022-11-26 16:46 | PC.NURSE ---
Pt medicated with methadone, sleeping at this time
[2022-11-26] MEDS: busPIRone HCl 10 MG TABLET 20 MG PO (17:11)
[2022-11-26] MEDS: DULoxetine HCl 60 MG CAPSULE.DR PO (17:11)
[2022-11-26] MEDS: Propranolol HCL 10 MG TABLET PO (17:11)
[2022-11-26] MEDS: Bacitracin Oint 0.9 GM PACKET 1 APPL TOPICAL (17:12)
[2022-11-26] MEDS: Cyanocobalamin (Vitamin B-12) 1,000 MCG TABLET 1000 MCG PO (17:12)
[2022-11-26] MEDS: Gabapentin 400 MG CAPSULE 800 MG PO (17:12)
--- NOTE | 2022-11-26 17:42 | MHC.EDTECH ---
PT AWAKE HAD KEAGAN CORINNA ,PUDDING AND GRAM [employer]ERS FOR SNACK .
[2022-11-26 18:00] VITALS: BP 110/70; PULSE 68; RESP 16; TEMP 36.1; O2SAT 97
--- NOTE | 2022-11-26 18:09 | PC.NURSE ---
Medicated per the mar, recovery team still actively searching for beds at this time. Pt sleeping
--- NOTE | 2022-11-26 18:52 | MHC.RECOVSUP ---
PT IS A 42YR OLD FEMALE WHO CAME TO THE ED FOR OVERDOSE.I WAS ABLE TO CONNECT PT WITH N AND SHE COMPLETED HER INTAKE. RICN STATED THAT SHE IS OKAY TO GO TO [facility]. PT IS RIGHT NOW TALKING TO THE NURSE.HOPEFULLY I BE ABLE TO GET PT A LYFT TO [facility]. I WAS ASKED TO SEE PT BECAUSE SHE WANTED TO TELL ME SOMETHING.PT STATED THAT SHE RATHER GO HERSELF TO [facility]. BECAUSE SHE HAS TO TAKE CARE OF SOME PERSONAL ISSUE.
[2022-11-26 19:45] VITALS: BP 120/72; PULSE 72; RESP 16; TEMP 36.6; O2SAT 97
--- NOTE | 2022-11-26 19:46 | MHC.EDTECH ---
pt had 2 sun butter and jelly ,2 ice cream and 4 cans of mihir ming for dinner .
== END 2022-11-26 19:53 | disposition home or self-care (01) ==
PROVIDERS: Emergency Provider Emergency Medicine
DX: R41.82 Altered mental status, unspecified (principal); F19.10 Other psychoactive substance abuse, uncomplicated; F11.20 Opioid dependence, uncomplicated; R21 Rash and other nonspecific skin eruption; F17.210 Nicotine dependence, cigarettes, uncomplicated; Z79.899 Other long term (current) drug therapy
CPT/HCPCS: 99284; 99285

== ENCOUNTER 2022-11-27 13:16 | Inpatient (IN) | payer OTHER, SELFPAY ==
[2022-11-27] VITALS (8 sets, daily range): BP systolic 97–122; BP diastolic 45–87; PULSE 78–90; RESP 10–21; TEMP 36.1–36.8; O2SAT 88–100; BMI 44.0
--- NOTE | ~2022-11-27 | XR_ITS ---
EXAMINATION: XR CHEST CLINICAL INFORMATION: Chest pain. COMPARISON: Chest radiograph 06/07/2022, CT chest 05/08/2019. TECHNIQUE: Frontal view of the chest was obtained (2 images). FINDINGS: No significant abnormality is noted involving the heart, lungs, mediastinum, bony thorax or soft tissues. There is a nodular density seen just above the right mainstem bronchus which I suspect is a prominent azygos vein which can be seen on the CT scan at the same level (13:18). XR/XR chest 1V IMPRESSION: No acute intrathoracic disease. Probable prominent azygos vein as described above. A cause for the patient's chest pain has not been found.
[2022-11-27] MEDS: Naloxone HCl Nasal 4 MG SPRAY NOSTRILALT (13:39)
--- NOTE | 2022-11-27 14:35 | ECG_ITS ---
Test Reason : OVERDOSE Blood Pressure : / mmHG Vent. Rate : 085 BPM Atrial Rate : 085 BPM P-R Int : 174 ms QRS Dur : 090 ms QT Int : 428 ms P-R-T Axes : 068 017 044 degrees QTc Int : 509 ms Normal sinus rhythm cannot exclude old inferior infarct, but could be from lead placement and body habitus ST depression anteriorly, possible ischemia Prolonged QT Abnormal ECG When compared with ECG of 28-AUG-2022 13:56, T wave inversion now evident in Anterior leads Referred By: Alisha Aguillon Electronically Signed By:LAMBERTO CARLIN
[2022-11-27 15:01] LABS: MANUAL DIFF FLAG NO
--- NOTE | 2022-11-27 15:07 | PC.NURSE ---
pt awake in stretcher, aox0, appears neurologically agitated and hallucinating. Md at bedside to assess, VSS. labs drawn from foot and sent to lab
[2022-11-27 15:09] LABS: Basophils Percent Auto 0.4 % (0-2); Eosinophils Absolute Auto 0.1 X10*3/uL (0.0-0.4); Eosinophils Percent Auto 1.2 % (0-4); Hematocrit 34.2 % (37.0-47.0); Hemoglobin 11.5 g/dl (12.0-16.0); Imm Gran Abs Auto 0.01 X10*3/uL (0.00-0.03); Imm Gran Pct Auto 0.1 % (0.0-0.4); Lymphocytes Absolute Auto 2.3 X10*3/uL (1.2-4.9); Lymphocytes Percent Auto 30.7 % (20-40); Mean Corpuscular HGB Conc 33.6 g/dl (31.0-35.0); Mean Corpuscular Hemoglobin 28.3 pg (27.0-33.0); Mean Corpuscular Volume 84.2 fL (80.0-98.0); Mean Platelet Volume 9.7 fL (9.4-12.3); Monocytes Absolute Auto 0.9 X10*3/uL (0.1-1.2); Monocytes Percent Auto 11.2 % (2-11); Neutrophils Absolute Auto 4.3 x10*3/uL (2.0-8.3); Neutrophils Percent Auto 56.4 % (45-73); Platelet Count 119 X10*3/uL (160-400); Red Blood Count 4.06 X10*6/uL (4.20-5.50); Red Cell Distribution Width 12.1 % (11.0-16.0); White Blood Count 7.6 X10*3/uL (4.8-10.8)
[2022-11-27 15:39] LABS: Alanine Aminotransferase 109 U/L (0-31); Alkaline Phosphatase 76 U/L (39-117); Anion Gap 18 (12-20); Aspartate Amino Transferase 590 U/L (5-31); Bilirubin Direct 0.4 mg/dL (0.0-0.5); Bilirubin Total 1.1 mg/dL (0.0-1.0); Blood Urea Nitrogen 25 mg/dL (9-16); Carbon Dioxide 20 mmol/L (22-29); Chloride 105 mmol/L (96-108); Estimated Glomerular Filt Rate > 60; Ethanol < 10 mg/dL; Glucose Random 77 mg/dL (60-115); HCG Quantitative < 2 mIU/mL; Potassium 4.1 mmol/L (3.3-5.1); Sodium 139 mmol/L (135-145); Total Protein 6.3 g/dL (6.5-8.0)
[2022-11-27 15:40] LABS: Troponin-I High Sensitivity < 3.5 ng/L (<3.5-17.0)
--- NOTE | 2022-11-27 16:24 | ED.GENADULT ---
HPI - General Adult General Chief complaint: ETOH/Substance Use Stated complaint: ALTERED,LETHARGY,ADMITS SUBSTANE/ETOH USE Time Seen by Provider: 11/27/22 13:42 History of Present Illness HPI narrative: Patient is 43 years old presents today with having altered mental status. Patient has a long history of polysubstance abuse. Using heroin and cocaine. Patient was found be agitated not quite herself. She has woken up with 4 mg of Narcan. Patient's sugar is greater than 100. Patient also has a history of rash that was documented yesterday. The rash is over the right gluteal area. Related Data Home Medications Medication Instructions Recorded Confirmed methadone 10 mg/mL oral 145 mg PO DAILY 06/16/22 11/26/22 concentrate (Methadose) acetaminophen 325 mg tablet 650 mg PO DAILY PRN Pain 08/04/22 11/26/22 diclofenac potassium 50 mg tablet 1 tab PO BID 11/26/22 11/26/22 hydroxyzine HCl 25 mg tablet 25 mg PO TID PRN Anxiety 11/26/22 11/26/22 Previous Rx's Medication Instructions Recorded buspirone 10 mg tablet 20 mg PO TID 30 days #180 tabs 08/27/22 cyanocobalamin (vitamin B-12) 1,000 mcg PO DAILY 30 days #30 tabs 08/27/22 1,000 mcg tablet cyclobenzaprine 10 mg tablet 10 mg PO BID PRN Muscle Spasm 30 08/27/22 days #60 tabs duloxetine 60 mg capsule,delayed 60 mg PO DAILY 30 days #30 caps 08/27/22 release gabapentin 800 mg tablet 800 mg PO TID 7 days #21 tabs 08/27/22 nicotine (polacrilex) 4 mg gum 4 mg buccal Q2H 30 days #100 ea 08/27/22 propranolol 10 mg tablet 10 mg PO TID 30 days #90 tabs 08/27/22 topiramate 50 mg tablet 50 mg PO BID 30 days #60 tabs 08/27/22 Allergies Allergy/AdvReac Type Severity Reaction Status Date / Time quetiapine [From SEROQUEL] Allergy Severe THROAT Verified 08/19/22 11:07 SWELLING azithromycin [AZITHROMYCIN] Allergy Unknown Unknown Verified 08/19/22 11:07 erythromycin base Allergy Unknown RASH Verified 08/19/22 11:07 [ERYTHROMYCIN BASE] olanzapine [From ZYPREXA] Allergy Unknown PEDAL EDEMA Verified 08/19/22 11:07 sulfacetamide Allergy Unknown Unknown Verified 08/19/22 11:07 [From Sulfacet-R] sulfamethoxazole Allergy Unknown ITCHING Verified 08/19/22 11:07 [From BACTRIM] sulfur [From Sulfacet-R] Allergy Unknown Unknown Verified 08/19/22 11:07 trimethoprim [From BACTRIM] Allergy Unknown ITCHING Verified 08/19/22 11:07 risperidone [From RISPERDAL] AdvReac Unknown TWITCHING Verified 08/19/22 11:07 seafood AdvReac Unknown Vomiting Verified 08/19/22 11:07 shellfish derived AdvReac Unknown VOMITING Verified 08/19/22 11:07 [SHELLFISH DERIVED] trazodone AdvReac restless Verified 08/19/22 11:07 legs Review of Systems Review of Systems: Unable to obtain full review systems secondary to patient's agitation PMFSH Past Medical History Attestation statement: The following information was validated with the patient. Medical History Back pain Bipolar 1 disorder Depression Leg pain, bilateral Opioid dependence Opioid dependence Opioid use disorder, moderate, in sustained remission, dependence Rhabdomyolysis Substance abuse Substance abuse Social History Social History Household Members: None Housing: Homeless Housing Other:: patient states she is homeless Do you presently have visiting nurse or other home services: No Unable to assess alcohol history related to: Refusing to respond Alcohol intake: unknown Patient Tobacco Use Status: Current everyday Tobacco user Tobacco use type: Cigarette Cigarette Packs Per Day: 1 Cigarettes Per Day: 20.0 Years Smoked: 29 e-Cigarette/Vaping Use: Currently Using Second Hand Smoke Exposure: No Substance Use Type: Crack/Cocaine, Opiates and Tranquilizers Advance Directives: Yes Advance Directives on File: Yes Advance Directives Date on File: 12/28/20 service: No Current occupational status: unemployed and disabled Sexual orientation: Don't Know Physical Exam ED Vital Signs: Vital Signs - 24 hr 11/27/22 13:29 11/27/22 13:40 11/27/22 13:40 Temperature 97.9 F Pulse Rate 90 Respiratory Rate 10 L Blood Pressure 101/67 Pulse Oximetry 96 88 L 100 Oxygen Delivery Method Room Air Nasal Cannula Nasal Cannula Oxygen Flow Rate 4 4 BMI result Body Mass Index 44.0 Appearance: Lethargic arousable to painful stimuli Eyes: Pupils equal, round and reactive to light. ENT: Pharynx normal. Neck: Normal inspection. Neck supple. No lymph nodes noted. No crepitus CVS: Normal heart rate and rhythm. Pulses normal. Normal S1 and S2 Respiratory: No respiratory distress. Breath sounds normal. No Wheezing. No rales Abdomen: Soft and nontender. No rigidity. No distention. good BS x4 Skin: Positive erythematous rash over the right gluteal area blanches. Positive erythematous rash over the right elbow area also blanches Extremities: No lower extremity edema. Neurovascular intact to all extremities. No Lacerations. No Rash Neuro: Oriented X 0 localizes to painful stimuli. Speech is slurred Medications Administered Discontinued Medications Generic Name Dose Route Start Last Admin Trade Name Freq PRN Reason Stop Dose Admin Sodium Chloride 1,000 mls @ 999 mls/hr 11/27/22 14:45 11/27/22 15:32 Ns IV 11/27/22 15:45 Not Given .Q1H1M EDER Naloxone HCl 4 mg 11/27/22 13:37 11/27/22 13:39 Naloxone Hcl Nasal 4 Mg [place] NOSTRILALT 11/27/22 13:38 4 mg ONCE ONE Administration Medical Decision Making Medical Decision Making [facility] Narrative: Positive generalized malaise weakness positive history of using cocaine and heroin. Patient had redness over the hip and over the elbow area on the right side. It blanches. Question if this is secondary to a rug burn. Patient was evaluated yesterday had similar rashes. Today seems more lethargic than usual. Given history of rhabdomyolysis in the past. Labs ordered. LFTs are elevated with AST and ALT 590 and 109 respectively consistent with potential alcohol abuse in the past. Patient's CPK came back at greater than 42,600. Consistent with rhabdo. Patient's BUN is 25 creatinine is 0.97 at the current time GFR is normal. Will start IV fluid will start bicarb COVID test ordered patient will require additional hydration monitoring overnight. Patient's sugar was 80 no evidence for hypoglycemia. Her white count is 7.6. Hemoglobin is 11.5 approximately baseline. Patient's test was negative. Alcohol was less than 10. patient's case will be discussed with the hospitalist team for admission. Differential Diagnosis Differential Diagnoses: The differential diagnosis associated with the presentation includes Polysubstance abuse, alcohol abuse, rhabdomyolysis, dehydration Admission/Observation Consideration of admission/observation: Escalation of care including admission/observation considered Will need admission for rhabdo Consult Healthcare Provider Management of the patient was discussed with: Hospitalist Lab Data MDM Lab Attestation statement: I reviewed the patient's lab results. 11/27/22 14:56 11/27/22 14:55 Labs: Lab Results 11/27/22 11/27/22 11/27/22 Range/Units 14:55 14:56 14:56 WBC 7.6 (4.8-10.8) X10*3/uL RBC 4.06 L (4.20-5.50) X10*6/uL Hgb 11.5 L (12.0-16.0) g/dl Hct 34.2 L (37.0-47.0) % MCV 84.2 (80.0-98.0) fL MCH 28.3 (27.0-33.0) pg MCHC 33.6 (31.0-35.0) g/dl RDW 12.1 (11.0-16.0) % Plt Count 119 L (160-400) X10*3/uL MPV 9.7 (9.4-12.3) fL Immature Gran % (Auto) 0.1 (0.0-0.4) % Neut % (Auto) 56.4 (45-73) % Lymph % (Auto) 30.7 (20-40) % [place] % (Auto) 11.2 H (2-11) % Eos % (Auto) 1.2 (0-4) % Baso % (Auto) 0.4 (0-2) % Lymph # (Auto) 2.3 (1.2-4.9) X10*3/uL [place] # (Auto) 0.9 (0.1-1.2) X10*3/uL Eos # (Auto) 0.1 (0.0-0.4) X10*3/uL Baso # (Auto) 0.0 (0.0-0.2) X10*3/uL Abs Immat Gran (auto) 0.01 (0.00-0.03) X10*3/uL Absolute Neuts (auto) 4.3 (2.0-8.3) x10*3/uL Absolute Nucleated RBC 0.000 (0.0-0.012) X10*3/uL Nucleated RBC % (auto) 0.0 (0.0-0.2) /100WBC Sodium 139 (135-145) mmol/L Potassium 4.1 (3.3-5.1) mmol/L Chloride 105 (96-108) mmol/L Carbon Dioxide 20 L (22-29) mmol/L Anion Gap 18 (12-20) BUN 25 H (9-16) mg/dL Creatinine 0.97 (0.5-1.4) mg/dL Estim Creat Clear Calc 96.0 Estimated GFR > 60 Random Glucose 77 (60-115) mg/dL Calcium 9.0 (8.4-10.2) mg/dL Total Bilirubin 1.1 H (0.0-1.0) mg/dL Direct Bilirubin 0.4 (0.0-0.5) mg/dL AST 590 H (5-31) U/L ALT 109 H (0-31) U/L Alkaline Phosphatase 76 (39-117) U/L Total Creatine Kinase > 80345 H (26-140) U/L Troponin I High Sens < 3.5 (<3.5-17.0) ng/L Total Protein 6.3 L (6.5-8.0) g/dL Albumin 4.0 (3.5-5.0) g/dL Beta HCG, Quant < 2 mIU/mL Ethyl Alcohol < 10 mg/dL Independent Interpretation I performed an independent interpretation of an: EKG Critical Care Time Critical Care Time Critical Care Time: Yes Total Critical Care Time: 40 Attestation: I have personally provided 40 minutes of critical care time exclusive of time spent on separately billable procedures. Time includes review of lab data, radiology results, discussion with consultants, and monitoring for potential decompensation. Interventions were performed as documented above Discharge Plan Discharge Clinical Impression: Cocaine abuse, Opioid dependence, Opioid use disorder, severe, dependence, Rhabdomyolysis Patient Disposition: Admitted As Inpatient Prescriptions: No Action acetaminophen 325 mg tablet 650 mg PO DAILY PRN (Reason: Pain) nicotine (polacrilex) 4 mg gum 4 mg buccal Q2H 30 Days Qty: 100 0RF propranolol 10 mg Tablet 10 mg PO TID 30 Days Qty: 90 0RF Protocol: Hold for SBP/HR < HOLD for SBP < : 90 HOLD for HR < : 60 duloxetine 60 mg Capsule,Delayed Release(Dr/Ec) 60 mg PO DAILY 30 Days Qty: 30 0RF cyclobenzaprine 10 mg tablet 10 mg PO BID PRN (Reason: Muscle Spasm) 30 Days Qty: 60 0RF cyanocobalamin (vitamin B-12) 1,000 mcg tablet 1,000 mcg PO DAILY 30 Days Qty: 30 0RF gabapentin 800 mg tablet 800 mg PO TID 7 Days Qty: 21 3RF buspirone 10 mg tablet 20 mg PO TID 30 Days Qty: 180 0RF topiramate 50 mg tablet 50 mg PO BID 30 Days Qty: 60 0RF hydroxyzine HCl 25 mg tablet 25 mg PO TID PRN (Reason: Anxiety) diclofenac potassium 50 mg tablet 1 tab PO BID methadone [Methadose] 10 mg/mL concentrate 145 mg PO DAILY Rx Instructions: Partial Fill upon patient request.
--- NOTE | 2022-11-27 17:15 | PHA.MEDREC ---
Pharmacy Consult ? Medication Reconciliation Pharmacy has completed the medication reconciliation. UNABLE TO SPEAK WITH PATIENT. MED REC COMPLETED YESTERDAY BY [facility] WHEN PATIENT WAS IN ED. PATIENT STATES SHE IS ON CLONAZEPAM/ZOLPIDEM/GABAPENTIN BUT HAS NOT FILLED PER PDMP RECENTLY(SEE [facility] NOTE ON 11/26/22)
[2022-11-27] MEDS: 0.9 % Sodium Chloride 1,000 ML 999 ML IV ×2 (17:20)
--- NOTE | 2022-11-27 17:24 | PC.NURSE ---
unable to get access by Us guided IV, or EJ. SALGADO at bedside for fem central line. pt remains neurologically agitated. soft restraints in place, fluids infusing, awaiting bicarb gtt from pharmacy. plan for brown cath
--- NOTE | 2022-11-27 17:45 | PC.NURSE ---
brown in place, initial 1600cc output, tech at bedside for EKG
--- NOTE | 2022-11-27 18:05 | PM.IMHP ---
History of Present Illness Date of Service: 11/27/22 Chief Complaint: Altered mentation, overdose 42 years old lady with PMH of polysubstance abuse on methadone, bipolar, depression among others who presents to the hospital by EMS for altered mentation secondary to overdose as she responded well to Narcan. The patient was unable to provide any meaningful history as she was barely awake and opening her eyes to physical response. She was found agitated according to the ER provider by EMS who gave her 4 mg of Narcan with fair response as she start to wake up. She was noted to have a new redness over right side of her body. Blood work was consistent with elevated LFT and CPK more than 24,000 with normal kidney function. Started on IV fluid and bicarb drip. A femoral line was placed for IV access. Review of Systems Review of Systems: Yes Unobtainable due to mental status PMFSH Medical History Back pain Bipolar 1 disorder Depression Leg pain, bilateral Opioid dependence Opioid dependence Opioid use disorder, moderate, in sustained remission, dependence Rhabdomyolysis Substance abuse Substance abuse Social History Household Members: None Housing: Homeless Housing Other:: patient states she is homeless Do you presently have visiting nurse or other home services: No Unable to assess alcohol history related to: Refusing to respond Alcohol intake: unknown Patient Tobacco Use Status: Current everyday Tobacco user Tobacco use type: Cigarette Cigarette Packs Per Day: 1 Cigarettes Per Day: 20.0 Years Smoked: 29 e-Cigarette/Vaping Use: Currently Using Second Hand Smoke Exposure: No Substance Use Type: Crack/Cocaine, Opiates and Tranquilizers Advance Directives: Yes Advance Directives on File: Yes Advance Directives Date on File: 12/28/20 service: No Current occupational status: unemployed and disabled Sexual orientation: Don't Know Meds Allergies Allergy/AdvReac Type Severity Reaction Status Date / Time quetiapine [From SEROQUEL] Allergy Severe THROAT Verified 08/19/22 11:07 SWELLING azithromycin [AZITHROMYCIN] Allergy Unknown Unknown Verified 08/19/22 11:07 erythromycin base Allergy Unknown RASH Verified 08/19/22 11:07 [ERYTHROMYCIN BASE] olanzapine [From ZYPREXA] Allergy Unknown PEDAL EDEMA Verified 08/19/22 11:07 sulfacetamide Allergy Unknown Unknown Verified 08/19/22 11:07 [From Sulfacet-R] sulfamethoxazole Allergy Unknown ITCHING Verified 08/19/22 11:07 [From BACTRIM] sulfur [From Sulfacet-R] Allergy Unknown Unknown Verified 08/19/22 11:07 trimethoprim [From BACTRIM] Allergy Unknown ITCHING Verified 08/19/22 11:07 risperidone [From RISPERDAL] AdvReac Unknown TWITCHING Verified 08/19/22 11:07 seafood AdvReac Unknown Vomiting Verified 08/19/22 11:07 shellfish derived AdvReac Unknown VOMITING Verified 08/19/22 11:07 [SHELLFISH DERIVED] trazodone AdvReac restless Verified 08/19/22 11:07 legs Active Medications: Current Medications Acetaminophen (Acetaminophen 325 Mg Tablet) 650 mg PO Q6H PRN PRN Reason: Pain, Mild (Pain Scale 1-3) Buspirone HCl (Buspirone Hcl 10 Mg Tablet) 20 mg PO TID [facility] Cyanocobalamin (Cyanocobalamin (Vitamin B-12) 1,000 Mcg Tablet) 1,000 mcg PO DAILY [facility] Cyclobenzaprine HCl (Cyclobenzaprine Hcl 10 Mg Tablet) 10 mg PO BID PRN PRN Reason: Muscle Spasm Duloxetine HCl (Duloxetine Hcl 60 Mg Capsule.Dr) 60 mg PO DAILY [facility] Gabapentin (Gabapentin 100 Mg Capsule) 200 mg PO TID [facility] Heparin Sodium (Porcine) (Heparin Sodium,Porcine 5,000 Unit/Ml Vial) 5,000 unit SUBCUT Q8H [facility] Hydroxyzine HCl (Hydroxyzine Hcl 50 Mg Tablet) 50 mg PO BID [facility] Sodium Bicarbonate 150 meq/ (Dextrose) 1,000 mls @ 100 mls/hr IV .Q10H [facility] Methadone HCl (Methadone Hcl 20 Mg/2 Ml Oral.Conc) 145 mg PO DAILY [facility] Naloxone HCl (Naloxone Hcl Nasal 4 Mg Mineral) 4 mg NOSTRILALT ONCE PRN PRN Reason: Opiate Reversal Nicotine Polacrilex (Nicotine Polacrilex 2 Mg Gum) 4 mg BUCCAL Q2H PRN PRN Reason: Nicotine Cravings Ondansetron HCl (Ondansetron Hcl 4 Mg/2 Ml Vial) 4 mg IVPUSH Q8H PRN PRN Reason: Nausea and Vomiting Pharmacy Consult (Consult Rx Perform Med Rec) 1 each MISCELLANE ONCE PRN PRN Reason: Consult order Propranolol HCl (Propranolol Hcl 10 Mg Tablet) 10 mg PO TID [facility]; Protocol Sodium Chloride (0.9 % Sodium Chloride Flush 3 Ml Syringe) 3 ml IVFLUSH QSHIFT [facility] Topiramate (Topiramate 25 Mg Tablet) 50 mg PO BID [facility] Zolpidem Tartrate (Zolpidem Tartrate 5 Mg Tablet) 5 mg PO BEDTIME PRN PRN Reason: Sleep Home Medications Medication Instructions Recorded Confirmed Last Taken Type methadone 10 mg/mL oral 145 mg PO DAILY 06/16/22 11/27/22 08/27/22 09:00 History concentrate (Methadose) acetaminophen 325 mg tablet 650 mg PO Q6H PRN Pain 08/04/22 11/27/22 08/11/22 08:00 History diclofenac potassium 50 mg tablet 1 tab PO BID PRN Pain (Scale Score 11/26/22 11/27/22 Unknown History 1-3) hydroxyzine HCl 50 mg tablet 1 tab PO BID 11/27/22 11/27/22 Unknown History ketoconazole 2 % topical cream 1 applic topical BID 11/27/22 11/27/22 Unknown History loratadine 10 mg tablet (Allergy 1 tab PO DAILY PRN Allergy Symptoms 11/27/22 11/27/22 Unknown History Relief (loratadine)) nicotine (polacrilex) 4 mg gum 4 mg buccal Q2H PRN Nicotine 11/27/22 11/27/22 Unknown History Cravings zolpidem 5 mg tablet 1 tab PO BEDTIME PRN Sleep 11/27/22 11/27/22 Unknown History Physical Exam Vital Signs and Narrative: Vital Signs: Last Vital Signs Temp 98.3 F 11/27/22 17:45 Pulse 87 11/27/22 17:45 Resp 18 11/27/22 17:45 BP 117/65 11/27/22 17:45 Pulse Ox 99 11/27/22 17:45 O2 Del Method 11/27/22 17:45 O2 Flow Rate 4 11/27/22 13:40 BMI result Body Mass Index 44.0 Const: Other: Constitutional : Open eyes to physical stimuli, not in distress Neck : Normal inspection, Supple Cardiovascular : RRR, no JVP, no lower extremity edema Respiratory : good bilateral air entry, no crackles, wheezes or rhonchi Gastrointestinal: soft, lax, Normal bowel sounds, Non tender Skin : Warm, Dry Neurological : Very sleepy and barely awake with physical stimulation, moving all extremities, altered mentation and difficult to wake Results Labs 11/27/22 14:56 11/27/22 14:55 Labs: Laboratory Results - last 24 hr 11/27/22 11/27/22 11/27/22 14:55 14:56 14:56 MCV 84.2 MCH 28.3 MCHC 33.6 RDW 12.1 Plt Count 119 L MPV 9.7 Immature Gran % (Auto) 0.1 Neut % (Auto) 56.4 Lymph % (Auto) 30.7 [place] % (Auto) 11.2 H Eos % (Auto) 1.2 Baso % (Auto) 0.4 Lymph # (Auto) 2.3 [place] # (Auto) 0.9 Eos # (Auto) 0.1 Baso # (Auto) 0.0 Abs Immat Gran (auto) 0.01 Absolute Neuts (auto) 4.3 Absolute Nucleated RBC 0.000 Nucleated RBC % (auto) 0.0 Anion Gap 18 Estim Creat Clear Calc 96.0 Estimated GFR > 60 Random Glucose 77 Calcium 9.0 Total Bilirubin 1.1 H Direct Bilirubin 0.4 AST 590 H ALT 109 H Alkaline Phosphatase 76 Total Creatine Kinase > 11897 H Troponin I High Sens < 3.5 Total Protein 6.3 L Albumin 4.0 Beta HCG, Quant < 2 Ethyl Alcohol < 10 Imaging Radiologist's Impressions: Impressions Chest X-Ray 11/27/22 15:21 IMPRESSION: No acute intrathoracic disease. Probable prominent azygos vein as described above. A cause for the patient's chest pain has not been found. Assessment and Plan (1) Rhabdomyolysis: Status: Acute (2) Polysubstance use disorder: Status: Acute Plan A 72 years old male with PMH of COPD, CAD, type 2 diabetes, giant cell arthritis among others who presented to the hospital as a referral from Cardiology office for tachycardia. Toxic metabolic encephalopathy secondary to polysubstance abuse and intoxication Pending tox screen Responded to Narcan At Narcan p.r.n. if needed Get Addiction team evaluation To use methadone home dose Rhabdomyolysis CPK of 42,000, normal kidney function Still Received IV F boluses, Start sodium bicarb drip Follow BMP closely Get Nephrology evaluation PTSD Continue buspirone, topiramate and duloxetine Neuropathy Continue gabapentin DVT PPX Heparin The patient will likely need more than 2. Overnight hospital stay for treatment of encephalopathy and rhabdomyolysis requiring IV fluid Time Spent With Patient Time: Total time managing care of this patient today ____ minutes. Quality Stroke Does the patient have a stroke diagnosis?: No VTE Prior VTE?: No VTE Risk Level:: Medical - moderate - high VTE Device Contraindication: Treatment Not Indicated VTE Drug Contraindication: N/A - Med Ordered
[2022-11-27 18:24] LABS: Appearance Urine Clear; Bacteria Urine None Seen (None Seen); Color Urine Yellow; Glucose Urine UA Negative (Negative); Leukocyte Esterase Urine Trace (Negative); Nitrite Urine Negative (Negative); PH 5.5 (5.0-9.0); RBC Urine 0-2 /HPF (0-2); Specific Gravity - Urine 1.015 (1.005-1.025); Squamous Epithelial Cell Urine 0-2 /HPF (0-2); UMIC TRIGGER UACC YES; Urine Blood Large (3+) (Negative); Urine Ketones Trace mg/dL (Negative); Urine Protein 30 (1+) mg/dL (Neg-Trace); WBC Urine 0-5 /HPF (0-5)
[2022-11-27] MEDS: Sodium Bicarbonate 8.4% 150 MEQ in Dextrose 5 % 850 ML 100 MEQ IV (18:24)
[2022-11-27 18:32] LABS: Influenza A PCR NEGATIVE (Negative); Influenza B PCR NEGATIVE (Negative); Resp Syncy Virus RNA Qual PCR NEGATIVE (Negative); SARS COV2 PCR INHOUSE NEGATIVE (Negative)
--- NOTE | 2022-11-27 19:52 | PC.NURSE ---
Assumed care of pt. at 1900. Pt. currently sleeping in room. Respirations even and unlabored, no distress noted. Pt. has a bed on [facility] [address]. Attempted to call with report at 1915, RN is in report at that time. Attempted 2nd call to RN, who was in another room with a pt. and will return my call shortly
--- NOTE | 2022-11-27 20:27 | MHC.RECOVSUP ---
? Reason for consult:OPI o? Current location:ED04? o? Identified substance use concern:? -? Support ?? Intervention: o? Community resources provided o? Harm reduction discussion ? Plan: o? Follow up tomorrow? ? Additional information:LEEANNE attempted to speak with Carlota, but she was sedated. Please follow up with her tomorrow!
[2022-11-27 20:37] LABS: Glucose, Whole Blood 88 mg/dL (60-115)
[2022-11-27 21:01] LABS: Anion Gap 12 (12-20); Blood Urea Nitrogen 17 mg/dL (9-16); Calcium 7.8 mg/dL (8.4-10.2); Carbon Dioxide 28 mmol/L (22-29); Chloride 106 mmol/L (96-108); Creatinine Clr Calc Pharmacy 122.6; Estimated Glomerular Filt Rate > 60; Glucose Random 184 mg/dL (60-115); Potassium 3.9 mmol/L (3.3-5.1); Sodium 142 mmol/L (135-145)
--- NOTE | 2022-11-27 21:14 | PC.NURSE ---
Labs drawn from central line, urined drained from [place] bag. Pt. briefly awoke for lab draw and was able to give her name and . Pt. remains sleepy and unoriented otherwise. Restraints able to be safely removed from pt. as pt. is now calm and cooperative. No bruising or circulation issues noted around restraint placement. Report given to Alyx on [facility] and pt. transported up to the 4th floor.
[2022-11-27] MEDS: Heparin Sodium,Porcine 5,000 UNIT/ML VIAL 5000 UNIT SUBCUT (21:29)
[2022-11-28] VITALS (7 sets, daily range): BP systolic 99–129; BP diastolic 53–81; PULSE 70–90; RESP 12–18; TEMP 36.1–36.7; O2SAT 93–98
[2022-11-28] MEDS: Sodium Bicarbonate 8.4% 150 MEQ in Dextrose 5 % 850 ML 100 MEQ IV ×2 (04:05→12:55)
[2022-11-28] MEDS: Heparin Sodium,Porcine 5,000 UNIT/ML VIAL 5000 UNIT SUBCUT (05:07)
[2022-11-28 06:51] LABS: Hematocrit 29.4 % (37.0-47.0); Hemoglobin 9.8 g/dl (12.0-16.0); Mean Corpuscular HGB Conc 33.3 g/dl (31.0-35.0); Mean Corpuscular Hemoglobin 28.2 pg (27.0-33.0); Mean Corpuscular Volume 84.5 fL (80.0-98.0); Mean Platelet Volume 9.4 fL (9.4-12.3); Red Blood Count 3.48 X10*6/uL (4.20-5.50); Red Cell Distribution Width 12.3 % (11.0-16.0); White Blood Count 3.9 X10*3/uL (4.8-10.8)
[2022-11-28 06:52] LABS: Platelet Count 94 X10*3/uL (160-400)
[2022-11-28 07:13] LABS: Alanine Aminotransferase 83 U/L (0-31); Albumin Level 3.2 g/dL (3.5-5.0); Alkaline Phosphatase 64 U/L (39-117); Anion Gap 8 (12-20); Aspartate Amino Transferase 379 U/L (5-31); Bilirubin Total 0.9 mg/dL (0.0-1.0); Blood Urea Nitrogen 14 mg/dL (9-16); Calcium 8.3 mg/dL (8.4-10.2); Carbon Dioxide 30 mmol/L (22-29); Chloride 106 mmol/L (96-108); Creatinine Clr Calc Pharmacy 141.1; Estimated Glomerular Filt Rate > 60; Glucose Random 99 mg/dL (60-115); Potassium 3.3 mmol/L (3.3-5.1); Sodium 141 mmol/L (135-145); Total Protein 5.2 g/dL (6.5-8.0)
--- NOTE | 2022-11-28 08:57 | MHC.CM.PN ---
CM met with Patient at bedside. Patient has been staying at the [facility] and states that she just recently was dc from the [facility] in [place], [place] and is now on a waiting list for a dual diagnosis inpatient program. Dc plan is pending Recovery Team Consult; CM has initiated and will follow for dc planning. Patient gets her Methadone from the [facility] on [facility] in [place]. Patient has received Moderna/Covid vax x3 and PCP is Dr. Cici Corey.
[2022-11-28] MEDS: DULoxetine HCl 60 MG CAPSULE.DR PO (09:41)
[2022-11-28] MEDS: busPIRone HCl 10 MG TABLET 20 MG PO ×3 (09:41→18:31)
[2022-11-28] MEDS: Topiramate 25 MG TABLET 50 MG PO ×2 (09:41→18:31)
[2022-11-28] MEDS: Gabapentin 100 MG CAPSULE 200 MG PO ×3 (09:41→18:31)
[2022-11-28] MEDS: Cyanocobalamin (Vitamin B-12) 1,000 MCG TABLET 1000 MCG PO (09:42)
[2022-11-28] MEDS: hydrOXYzine HCL 50 MG TABLET PO ×2 (09:42→18:32)
[2022-11-28] MEDS: Cyclobenzaprine HCl 10 MG TABLET PO (10:48)
[2022-11-28] MEDS: methADONE HCl 20 MG/2 ML ORAL.CONC 145 MG PO (10:49)
[2022-11-28 11:05] LABS: Amphetamine Screen Urine Not Detected (Not Detect); Barbiturates, Urine Not Detected (Not Detect); Benzodiazepines Screen Urine Not Detected (Not Detect); Cannabinoid Screen Urine Not Detected (Not Detect); Cocaine Screen Urine POSITIVE (Not Detect); Fentanyl, urine POSITIVE (Not Detect); Opiate Screen Urine Not Detected (Not Detect); Phencyclidine Screen Urine Not Detected (Not Detect)
--- NOTE | 2022-11-28 13:27 | MHC.RECOVRN ---
Attempted to meet with pt in 467. Pt asleep, briefly wakes to voice, falls back to sleep during conversation. Unable to complete interview. Per CM note, pt is on waiting list for inpatient dual diagnosis program. RSRN to follow up tomorrow.
--- NOTE | 2022-11-28 14:09 | HO.PM.IMPN ---
Subjective Subjective Date of Service: 11/28/22 Interval History: More alert and interactive Reports not remembering any incident from yesterday Reporting pain in her lower extremities CPK trending down Feels little anxious this morning Other overnight events Review of Systems Review of Systems: Yes all other systems are reviewed and are negative Physical Exam Vital Signs: Vital Signs: Last Vital Signs Temp 97.6 F 11/28/22 11:29 Pulse 90 11/28/22 11:29 Resp 12 11/28/22 11:29 BP 114/74 11/28/22 11:29 Pulse Ox 93 11/28/22 11:29 O2 Del Method 11/28/22 11:29 O2 Flow Rate 4 11/27/22 13:40 BMI result Body Mass Index 44.0 Const: Other: Constitutional : Alert and interactive, not in distress Neck : Normal inspection, Supple Cardiovascular : RRR, no JVP, no lower extremity edema Respiratory : good bilateral air entry, no crackles, wheezes or rhonchi Gastrointestinal: soft, lax, Normal bowel sounds, Non tender Skin : Warm, Dry, lower extremities generalized rash with no tenderness Neurological : Alert and interactive, oriented by 3, moving all extremities Objective Data Active Medications Acetaminophen (Acetaminophen 325 Mg Tablet) 650 mg PO Q6H PRN PRN Reason: Pain, Mild (Pain Scale 1-3) Buspirone HCl (Buspirone Hcl 10 Mg Tablet) 20 mg PO TID [facility] Last Admin: 11/28/22 09:41 Dose: 20 mg Documented By: MARIAA Cyanocobalamin (Cyanocobalamin (Vitamin B-12) 1,000 Mcg Tablet) 1,000 mcg PO DAILY [facility] Last Admin: 11/28/22 09:42 Dose: 1,000 mcg Documented By: MARIAA Cyclobenzaprine HCl (Cyclobenzaprine Hcl 10 Mg Tablet) 10 mg PO BID PRN PRN Reason: Muscle Spasm Last Admin: 11/28/22 10:48 Dose: 10 mg Documented By: MARIAA Duloxetine HCl (Duloxetine Hcl 60 Mg Capsule.) 60 mg PO DAILY [facility] Last Admin: 11/28/22 09:41 Dose: 60 mg Documented By: MARIAA Gabapentin (Gabapentin 100 Mg Capsule) 200 mg PO TID [facility] Last Admin: 11/28/22 09:41 Dose: 200 mg Documented By: MARIAA Heparin Sodium (Porcine) (Heparin Sodium,Porcine 5,000 Unit/Ml Vial) 5,000 unit SUBCUT Q8H [facility] Last Admin: 11/28/22 05:07 Dose: 5,000 unit Documented By: BRANDIE Hydroxyzine HCl (Hydroxyzine Hcl 50 Mg Tablet) 50 mg PO BID [facility] Last Admin: 11/28/22 09:42 Dose: 50 mg Documented By: MARIAA Sodium Bicarbonate 150 meq/ (Dextrose) 1,000 mls @ 100 mls/hr IV .Q10H [facility] Last Admin: 11/28/22 12:55 Dose: 100 mls/hr Documented By: MARIAA Methadone HCl (Methadone Hcl 20 Mg/2 Ml Oral.Conc) 145 mg PO DAILY [facility] Last Admin: 11/28/22 10:49 Dose: 145 mg Documented By: MARIAA Naloxone HCl (Naloxone Hcl Nasal 4 Mg [place]) 4 mg NOSTRILALT ONCE PRN PRN Reason: Opiate Reversal Nicotine Polacrilex (Nicotine Polacrilex 2 Mg Gum) 4 mg BUCCAL Q2H PRN PRN Reason: Nicotine Cravings Ondansetron HCl (Ondansetron Hcl 4 Mg/2 Ml Vial) 4 mg IVPUSH Q8H PRN PRN Reason: Nausea and Vomiting Pharmacy Consult (Consult Rx Perform Med Rec) 1 each MISCELLANE ONCE PRN PRN Reason: Consult order Propranolol HCl (Propranolol Hcl 10 Mg Tablet) 10 mg PO TID [facility]; Protocol Last Admin: 11/28/22 09:46 Dose: Not Given Documented By: MARIAA Non-Admin Reason: Decreased Blood Pressure Sodium Chloride (0.9 % Sodium Chloride Flush 3 Ml Syringe) 3 ml IVFLUSH QSHIFT [facility] Last Admin: 11/28/22 09:26 Dose: Not Given Documented By: DOBROB Non-Admin Reason: IV Running Topiramate (Topiramate 25 Mg Tablet) 50 mg PO BID [facility] Last Admin: 11/28/22 09:41 Dose: 50 mg Documented By: MARIAA Zolpidem Tartrate (Zolpidem Tartrate 5 Mg Tablet) 5 mg PO BEDTIME PRN PRN Reason: Sleep Labs 11/28/22 06:39 11/28/22 06:39 Labs: Laboratory Results - last 24 hr 11/27/22 11/27/22 11/27/22 14:45 14:55 14:56 MCV 84.2 MCH 28.3 MCHC 33.6 RDW 12.1 Plt Count 119 L MPV 9.7 Immature Gran % (Auto) 0.1 Neut % (Auto) 56.4 Lymph % (Auto) 30.7 [place] % (Auto) 11.2 H Eos % (Auto) 1.2 Baso % (Auto) 0.4 Lymph # (Auto) 2.3 [place] # (Auto) 0.9 Eos # (Auto) 0.1 Baso # (Auto) 0.0 Abs Immat Gran (auto) 0.01 Absolute Neuts (auto) 4.3 Absolute Nucleated RBC 0.000 Nucleated RBC % (auto) 0.0 Anion Gap 18 Estim Creat Clear Calc 96.0 Estimated GFR > 60 POC Glucose 88 Random Glucose 77 Calcium 9.0 Total Bilirubin 1.1 H Direct Bilirubin 0.4 AST 590 H ALT 109 H Alkaline Phosphatase 76 Total Creatine Kinase > 99379 H Troponin I High Sens Total Protein 6.3 L Albumin 4.0 Beta HCG, Quant < 2 Urine Color Urine Appearance Urine pH Ur Specific [place] Urine Protein Urine Glucose (UA) Urine Ketones Urine Blood Urine Nitrite Ur Leukocyte Esterase Urine RBC Urine WBC Ur Squamous Epith Cells Urine Bacteria Hyaline Casts Urine Opiates Screen Urine Fentanyl Screen Ur Barbiturates Screen Ur Phencyclidine Scrn Ur Amphetamines Screen U Benzodiazepines Scrn Urine Cocaine Screen U Marijuana (THC) Screen Ethyl Alcohol < 10 Influenza Type A (PCR) Influenza Type B (PCR) RSV RNA Qual (PCR) SARS-CoV-2 RNA (RT-PCR) 11/27/22 11/27/22 11/27/22 14:56 17:38 17:38 MCV MCH MCHC RDW Plt Count MPV Immature Gran % (Auto) Neut % (Auto) Lymph % (Auto) [place] % (Auto) Eos % (Auto) Baso % (Auto) Lymph # (Auto) [place] # (Auto) Eos # (Auto) Baso # (Auto) Abs Immat Gran (auto) Absolute Neuts (auto) Absolute Nucleated RBC Nucleated RBC % (auto) Anion Gap Estim Creat Clear Calc Estimated GFR POC Glucose Random Glucose Calcium Total Bilirubin Direct Bilirubin AST ALT Alkaline Phosphatase Total Creatine Kinase Troponin I High Sens < 3.5 Total Protein Albumin Beta HCG, Quant Urine Color Yellow Urine Appearance Clear Urine pH 5.5 Ur Specific [place] 1.015 Urine Protein 30 (1+) H Urine Glucose (UA) Negative Urine Ketones Trace Urine Blood Large (3+) H Urine Nitrite Negative Ur Leukocyte Esterase Trace H Urine RBC 0-2 Urine WBC 0-5 Ur Squamous Epith Cells 0-2 Urine Bacteria None Seen Hyaline Casts 3-5 Urine Opiates Screen Urine Fentanyl Screen Ur Barbiturates Screen Ur Phencyclidine Scrn Ur Amphetamines Screen U Benzodiazepines Scrn Urine Cocaine Screen U Marijuana (THC) Screen Ethyl Alcohol Influenza Type A (PCR) NEGATIVE Influenza Type B (PCR) NEGATIVE RSV RNA Qual (PCR) NEGATIVE SARS-CoV-2 RNA (RT-PCR) NEGATIVE 11/27/22 11/28/22 11/28/22 20:22 06:39 06:39 MCV 84.5 MCH 28.2 MCHC 33.3 RDW 12.3 Plt Count 94 L MPV 9.4 Immature Gran % (Auto) Neut % (Auto) Lymph % (Auto) [place] % (Auto) Eos % (Auto) Baso % (Auto) Lymph # (Auto) [place] # (Auto) Eos # (Auto) Baso # (Auto) Abs Immat Gran (auto) Absolute Neuts (auto) Absolute Nucleated RBC 0.000 Nucleated RBC % (auto) 0.0 Anion Gap 12 8 L Estim Creat Clear Calc 122.6 141.1 Estimated GFR > 60 > 60 POC Glucose Random Glucose 184 H 99 Calcium 7.8 L D 8.3 L D Total Bilirubin 0.9 Direct Bilirubin AST 379 H ALT 83 H Alkaline Phosphatase 64 Total Creatine Kinase > 50755 H 61878 H Troponin I High Sens Total Protein 5.2 L Albumin 3.2 L Beta HCG, Quant Urine Color Urine Appearance Urine pH Ur Specific [place] Urine Protein Urine Glucose (UA) Urine Ketones Urine Blood Urine Nitrite Ur Leukocyte Esterase Urine RBC Urine WBC Ur Squamous Epith Cells Urine Bacteria Hyaline Casts Urine Opiates Screen Urine Fentanyl Screen Ur Barbiturates Screen Ur Phencyclidine Scrn Ur Amphetamines Screen U Benzodiazepines Scrn Urine Cocaine Screen U Marijuana (THC) Screen Ethyl Alcohol Influenza Type A (PCR) Influenza Type B (PCR) RSV RNA Qual (PCR) SARS-CoV-2 RNA (RT-PCR) 11/28/22 10:31 MCV MCH MCHC RDW Plt Count MPV Immature Gran % (Auto) Neut % (Auto) Lymph % (Auto) [place] % (Auto) Eos % (Auto) Baso % (Auto) Lymph # (Auto) [place] # (Auto) Eos # (Auto) Baso # (Auto) Abs Immat Gran (auto) Absolute Neuts (auto) Absolute Nucleated RBC Nucleated RBC % (auto) Anion Gap Estim Creat Clear Calc Estimated GFR POC Glucose Random Glucose Calcium Total Bilirubin Direct Bilirubin AST ALT Alkaline Phosphatase Total Creatine Kinase Troponin I High Sens Total Protein Albumin Beta HCG, Quant Urine Color Urine Appearance Urine pH Ur Specific [place] Urine Protein Urine Glucose (UA) Urine Ketones Urine Blood Urine Nitrite Ur Leukocyte Esterase Urine RBC Urine WBC Ur Squamous Epith Cells Urine Bacteria Hyaline Casts Urine Opiates Screen Not Detected Urine Fentanyl Screen POSITIVE H Ur Barbiturates Screen Not Detected Ur Phencyclidine Scrn Not Detected Ur Amphetamines Screen Not Detected U Benzodiazepines Scrn Not Detected Urine Cocaine Screen POSITIVE H U Marijuana (THC) Screen Not Detected Ethyl Alcohol Influenza Type A (PCR) Influenza Type B (PCR) RSV RNA Qual (PCR) SARS-CoV-2 RNA (RT-PCR) Assessment and Plan (1) Opioid use disorder, severe, dependence: Status: Acute (2) Intoxication by drug: Status: Acute (3) Rhabdomyolysis: Status: Acute Plan A 72 years old male with PMH of COPD, CAD, type 2 diabetes, giant cell arthritis among others who presented to the hospital as a referral from Cardiology office for tachycardia. Toxic metabolic encephalopathy secondary to polysubstance abuse and intoxication Positive tox screen for fentanyl and cocaine Responded to Narcan Narcan p.r.n. if needed Get Addiction team evaluation methadone home dose Rhabdomyolysis CPK trended down to 30,000 Continue sodium bicarbonate Follow BMP closely Pending Nephrology evaluation PTSD Continue buspirone, topiramate and duloxetine Neuropathy Continue gabapentin DVT PPX Heparin The patient will likely need Overnight hospital stay for treatment of rhabdomyolysis requiring IV fluid Time Spent With Patient Time: Total time managing care of this patient today ____ minutes. Quality Stroke Does the patient have a stroke diagnosis?: No VTE Prior VTE?: No VTE Risk Level:: Medical - moderate - high VTE Device Contraindication: Treatment Not Indicated VTE Drug Contraindication: N/A - Med Ordered
[2022-11-28] MEDS: clonazePAM 0.5 MG TABLET PO (15:32)
[2022-11-28] MEDS: Lactated Ringers 1,000 ML 125 ML IVCONT ×2 (15:38→23:27)
[2022-11-28] MEDS: Propranolol HCL 10 MG TABLET PO ×2 (15:45→18:31)
--- NOTE | 2022-11-28 16:56 | PM.EVENT ---
Event Note Date of Service: 11/28/22 Event Note: Pt seen and examined Full consult dictated Continue IVF with bicarb Pt needs addiction medicine / Counselling re Cocaine use Time Spent With Patient Time: Total time managing care of this patient today ____ minutes.
[2022-11-28] MEDS: Nicotine Polacrilex 2 MG GUM 4 MG BUCCAL (18:38)
--- NOTE | 2022-11-28 18:58 | P.EN_ITS ---
Event Note Date of Service: 11/28/22 Event Note: Addiction consult placed Please see sales representative church furniture note, dated 11/28/22 Time Spent With Patient Time: Total time managing care of this patient today ____ minutes.
--- NOTE | 2022-11-28 18:58 | PM.EVENT ---
Event Note Date of Service: 11/28/22 Event Note: Addiction consult placed Please see components engineer note, dated 11/28/22 Time Spent With Patient Time: Total time managing care of this patient today ____ minutes.
[2022-11-28] MEDS: PHENobarbitaL sodium 130 MG/ML IM ONCE 228 MG IM (20:11)
[2022-11-28] MEDS: 0.9 % Sodium Chloride Flush 3 ML SYRINGE IVFLUSH (20:12)
[2022-11-28] MEDS: PHENobarbitaL sodium 130 MG/ML VIAL IM Q3Hx2 171 MG IM (23:25)
[2022-11-29] MEDS: clonazePAM 0.5 MG TABLET PO ×2 (02:22→14:37)
[2022-11-29] MEDS: Cyclobenzaprine HCl 10 MG TABLET PO ×2 (02:22→14:37)
[2022-11-29 03:48] VITALS: BP 125/60; PULSE 72; RESP 20; TEMP 36.1; O2SAT 98
[2022-11-29 07:39] VITALS: BP 124/71; PULSE 71; RESP 20; TEMP 36.8; O2SAT 97
[2022-11-29 07:45] LABS: Hematocrit 29.5 % (37.0-47.0); Hemoglobin 9.6 g/dl (12.0-16.0); Mean Corpuscular HGB Conc 32.5 g/dl (31.0-35.0); Mean Corpuscular Hemoglobin 28.2 pg (27.0-33.0); Mean Corpuscular Volume 86.5 fL (80.0-98.0); Mean Platelet Volume 9.9 fL (9.4-12.3); Red Blood Count 3.41 X10*6/uL (4.20-5.50); Red Cell Distribution Width 12.5 % (11.0-16.0); White Blood Count 2.7 X10*3/uL (4.8-10.8)
[2022-11-29 07:47] LABS: Platelet Count 94 X10*3/uL (160-400)
[2022-11-29 08:22] LABS: Anion Gap 14 (12-20); Blood Urea Nitrogen 7 mg/dL (9-16); Calcium 8.6 mg/dL (8.4-10.2); Carbon Dioxide 26 mmol/L (22-29); Chloride 102 mmol/L (96-108); Creatinine Clr Calc Pharmacy 145.5; Estimated Glomerular Filt Rate > 60; Glucose Random 146 mg/dL (60-115); Potassium 3.5 mmol/L (3.3-5.1); Sodium 138 mmol/L (135-145)
[2022-11-29] MEDS: Lactated Ringers 1,000 ML 125 ML IVCONT ×2 (08:26→17:01)
[2022-11-29] MEDS: hydrOXYzine HCL 50 MG TABLET PO ×2 (08:27→21:43)
[2022-11-29] MEDS: Propranolol HCL 10 MG TABLET PO ×3 (08:27→21:43)
[2022-11-29] MEDS: Gabapentin 100 MG CAPSULE 200 MG PO ×3 (08:27→21:43)
[2022-11-29] MEDS: busPIRone HCl 10 MG TABLET 20 MG PO ×3 (08:27→21:43)
[2022-11-29] MEDS: Cyanocobalamin (Vitamin B-12) 1,000 MCG TABLET 1000 MCG PO (08:27)
[2022-11-29] MEDS: DULoxetine HCl 60 MG CAPSULE.DR PO (08:27)
[2022-11-29] MEDS: methADONE HCl 20 MG/2 ML ORAL.CONC 145 MG PO (08:27)
[2022-11-29] MEDS: Topiramate 25 MG TABLET 50 MG PO ×2 (08:30→21:45)
--- NOTE | 2022-11-29 10:47 | MHC.RECOVRN ---
This process description writer met w/ patient, patient laying in bed with eyes closed, awake to verbal command with some trailing off, requiring verbal redirection. Patient reports was at the [facility] in [place], patient states prior to this was in long-term for a while . Patient states when in long-term, a referral was sent to dual dx program. Patient was in long-term more then one year ago. Patient not on current dual dx waitlist. T/W and patient discussed d/c plan. Patient states wants to get better, wants to focus on health. Patient reports frustrations at detox/[facility] levels of care, seeking So[facility]. Patient agreeable to referral to [facility], as patient had been there in the past and patient is interested in [facility]. Referral sent to [facility].
[2022-11-29 11:39] VITALS: BP 128/64; PULSE 68; RESP 20; TEMP 36; O2SAT 98
--- NOTE | 2022-11-29 13:36 | P.PNIM_ITS ---
Subjective Subjective Date of Service: 11/29/22 Interval History: More alert and interactive complaining of pain all [place] [address] Other overnight events Review of Systems Review of Systems: Yes all other systems are reviewed and are negative Physical Exam Vital Signs: Vital Signs: Last Vital Signs Temp 96.8 F 11/29/22 11:39 Pulse 68 11/29/22 11:39 Resp 20 11/29/22 11:39 BP 128/64 11/29/22 11:39 Pulse Ox 98 11/29/22 11:39 O2 Del Method 11/29/22 11:39 O2 Flow Rate 4 11/27/22 13:40 BMI result Body Mass Index 44.0 Const: Other: Constitutional : Alert and interactive, mildly anxious Neck : Normal inspection, Supple Cardiovascular : RRR, no JVP, no lower extremity edema Respiratory : good bilateral air entry, no crackles, wheezes or rhonchi Gastrointestinal: soft, lax, Normal bowel sounds, Non tender Skin : Warm, Dry, lower extremities generalized rash with no tenderness Neurological : Alert and interactive, oriented by 3, moving all extremities Objective Data Active Medications Acetaminophen (Acetaminophen 325 Mg Tablet) 650 mg PO Q6H PRN PRN Reason: Pain, Mild (Pain Scale 1-3) Buspirone HCl (Buspirone Hcl 10 Mg Tablet) 20 mg PO TID [facility] Last Admin: 11/29/22 08:27 Dose: 20 mg Documented By: VERN Clonazepam (Clonazepam 0.5 Mg Tablet) 0.5 mg PO BID PRN PRN Reason: Anxiety Last Admin: 11/29/22 02:22 Dose: 0.5 mg Documented By: JAILENE Cyanocobalamin (Cyanocobalamin (Vitamin B-12) 1,000 Mcg Tablet) 1,000 mcg PO DAILY [facility] Last Admin: 11/29/22 08:27 Dose: 1,000 mcg Documented By: VERN Cyclobenzaprine HCl (Cyclobenzaprine Hcl 10 Mg Tablet) 10 mg PO BID PRN PRN Reason: Muscle Spasm Last Admin: 11/29/22 02:22 Dose: 10 mg Documented By: JAILENE Duloxetine HCl (Duloxetine Hcl 60 Mg Capsule.) 60 mg PO DAILY [facility] Last Admin: 11/29/22 08:27 Dose: 60 mg Documented By: VERN Gabapentin (Gabapentin 100 Mg Capsule) 200 mg PO TID [facility] Last Admin: 11/29/22 08:27 Dose: 200 mg Documented By: VERN Heparin Sodium (Porcine) (Heparin Sodium,Porcine 5,000 Unit/Ml Vial) 5,000 unit SUBCUT Q8H [facility] Last Admin: 11/29/22 03:53 Dose: Not Given Documented By: GASTONOIC Non-Admin Reason: Patient Refused Hydroxyzine HCl (Hydroxyzine Hcl 50 Mg Tablet) 50 mg PO BID [facility] Last Admin: 11/29/22 08:27 Dose: 50 mg Documented By: VERN Lactated Ringer's (Lr) 1,000 mls @ 125 mls/hr IVCONT .Q8H [facility] Last Admin: 11/29/22 08:26 Dose: 125 mls/hr Documented By: VERN Methadone HCl (Methadone Hcl 20 Mg/2 Ml Oral.Conc) 145 mg PO DAILY [facility] Last Admin: 11/29/22 08:27 Dose: 145 mg Documented By: VERN Naloxone HCl (Naloxone Hcl Nasal 4 Mg [place]) 4 mg NOSTRILALT ONCE PRN PRN Reason: Opiate Reversal Nicotine Polacrilex (Nicotine Polacrilex 2 Mg Gum) 4 mg BUCCAL Q2H PRN PRN Reason: Nicotine Cravings Last Admin: 11/28/22 18:38 Dose: 4 mg Documented By: MARIAA Ondansetron HCl (Ondansetron Hcl 4 Mg/2 Ml Vial) 4 mg IVPUSH Q8H PRN PRN Reason: Nausea and Vomiting Pharmacy Consult (Consult Rx Perform Med Rec) 1 each MISCELLANE ONCE PRN PRN Reason: Consult order Pharmacy Consult (Consult Rx Etoh Phenob Po Only) 1 each MISCELLANE ONCE PRN; Protocol PRN Reason: Consult order Phenobarbital (Phenobarbital 15 Mg Tablet) 45 mg PO BID [facility] Stop: 11/30/22 21:01 Last Admin: 11/29/22 08:27 Dose: 45 mg Documented By: VERN Phenobarbital (Phenobarbital 30 Mg Tablet) 30 mg PO BID [facility] Stop: 12/02/22 21:01 Phenobarbital (Phenobarbital 15 Mg Tablet) 15 mg PO DAILY [facility] Stop: 12/04/22 09:01 Propranolol HCl (Propranolol Hcl 10 Mg Tablet) 10 mg PO TID [facility]; Protocol Last Admin: 11/29/22 08:27 Dose: 10 mg Documented By: VERN Sodium Chloride (0.9 % Sodium Chloride Flush 3 Ml Syringe) 3 ml IVFLUSH QSHIFT [facility] Last Admin: 11/29/22 08:38 Dose: Not Given Documented By: VERN Non-Admin Reason: IV Running Topiramate (Topiramate 25 Mg Tablet) 50 mg PO BID [facility] Last Admin: 11/29/22 08:30 Dose: 50 mg Documented By: VERN Zolpidem Tartrate (Zolpidem Tartrate 5 Mg Tablet) 5 mg PO BEDTIME PRN PRN Reason: Sleep Labs 11/29/22 07:26 11/29/22 07:26 Labs: Laboratory Results - last 24 hr 11/29/22 11/29/22 11/29/22 07:26 07:26 07:26 MCV 86.5 MCH 28.2 MCHC 32.5 RDW 12.5 Plt Count 94 L MPV 9.9 Absolute Nucleated RBC 0.000 Nucleated RBC % (auto) 0.0 Anion Gap 14 Estim Creat Clear Calc 145.5 Estimated GFR > 60 Random Glucose 146 H Calcium 8.6 Total Creatine Kinase 48317 H Assessment and Plan (1) Opioid dependence: Status: Acute (2) Rhabdomyolysis: Status: Acute Plan A 72 years old male with PMH of COPD, CAD, type 2 diabetes, giant cell arthritis among others who presented to the hospital as a referral from Cardiology office for tachycardia. Toxic metabolic encephalopathy secondary to polysubstance abuse and intoxication Positive tox screen for fentanyl and cocaine Responded to Narcan Narcan p.r.n. if needed Addiction team evaluation methadone home dose Rhabdomyolysis CPK trended down to 11,000 Continue IVF Follow BMP closely Nephrology evaluation Alcohol withdrawal started Phenobarb protocol PTSD Continue buspirone, topiramate and duloxetine Neuropathy Continue gabapentin DVT PPX Heparin The patient will likely need Overnight hospital stay for treatment of r habdomyolysis requiring IV fluid Time Spent With Patient Time: Total time managing care of this patient today ____ minutes. Quality Stroke Does the patient have a stroke diagnosis?: No VTE Prior VTE?: No VTE Risk Level:: Medical - moderate - high VTE Device Contraindication: Treatment Not Indicated VTE Drug Contraindication: N/A - Med Ordered
[2022-11-29] MEDS: Acetaminophen 325 MG TABLET 650 MG PO ×2 (14:44→21:50)
[2022-11-29] MEDS: Nicotine Polacrilex 2 MG GUM 4 MG BUCCAL ×2 (14:47→21:54)
[2022-11-29 16:00] VITALS: BP 124/68; PULSE 66; RESP 18; TEMP 37.2; O2SAT 98
[2022-11-29 19:04] VITALS: BP 126/69; PULSE 67; RESP 18; TEMP 37; O2SAT 98
[2022-11-29] MEDS: Zolpidem Tartrate 5 MG TABLET PO (21:45)
[2022-11-29] MEDS: 0.9 % Sodium Chloride Flush 3 ML SYRINGE IVFLUSH (21:52)
--- NOTE | 2022-11-29 22:07 | PM.PNNEP ---
Subjective Subjective Date of Service: 11/29/22 Interval history: More alert and interactive complaining of pain [place] [address] Other overnight events Physical Exam Vital Signs: Vital Signs: Last Vital Signs Temp 98.6 F 11/29/22 19:04 Pulse 67 11/29/22 19:04 Resp 18 11/29/22 19:04 BP 126/69 11/29/22 19:04 Pulse Ox 98 11/29/22 19:04 O2 Del Method 11/29/22 19:04 O2 Flow Rate 4 11/27/22 13:40 BMI result Body Mass Index 44.0 Const: Other: Constitutional : Alert and interactive, mildly anxious Neck : Normal inspection, Supple Cardiovascular : RRR, no JVP, no lower extremity edema Respiratory : good bilateral air entry, no crackles, wheezes or rhonchi Gastrointestinal: soft, lax, Normal bowel sounds, Non tender Skin : Warm, Dry, lower extremities generalized rash with no tenderness Neurological : Alert and interactive, oriented by 3, moving all extremities Objective Data Labs 11/29/22 07:26 11/29/22 07:26 Labs: Laboratory Results - last 24 hr 11/29/22 11/29/22 11/29/22 07:26 07:26 07:26 WBC 2.7 L RBC 3.41 L Hgb 9.6 L Hct 29.5 L MCV 86.5 MCH 28.2 MCHC 32.5 RDW 12.5 Plt Count 94 L MPV 9.9 Absolute Nucleated RBC 0.000 Nucleated RBC % (auto) 0.0 Sodium 138 Potassium 3.5 Chloride 102 Carbon Dioxide 26 Anion Gap 14 BUN 7 L Creatinine 0.64 Estim Creat Clear Calc 145.5 Estimated GFR > 60 Random Glucose 146 H Calcium 8.6 Total Creatine Kinase 75077 H Procedures Date of Service Date of Service: 11/29/22 Assessment & Plan Assessment and plan (1) Rhabdomyolysis: Status: Acute Plan CPK is better IVF as orderd Avoid Cocaine Time Spent With Patient Time: Total time managing care of this patient today ____ minutes. Progress Note: Quality Stroke Does the patient have a stroke diagnosis?: No
[2022-11-29 23:53] VITALS: BP 134/92; PULSE 97; RESP 18; TEMP 36.3; O2SAT 97
[2022-11-30] MEDS: Lactated Ringers 1,000 ML 125 ML IVCONT ×3 (00:07→15:34)
[2022-11-30] MEDS: clonazePAM 0.5 MG TABLET PO ×2 (03:19→15:35)
[2022-11-30] MEDS: Cyclobenzaprine HCl 10 MG TABLET PO ×2 (03:19→20:57)
[2022-11-30 03:20] VITALS: BP 125/74; PULSE 75; RESP 20; TEMP 36.4; O2SAT 99
[2022-11-30 07:09] VITALS: BP 120/70; PULSE 75; RESP 20; TEMP 36.7; O2SAT 96
[2022-11-30] MEDS: Gabapentin 100 MG CAPSULE 200 MG PO ×3 (07:48→20:58)
[2022-11-30] MEDS: Topiramate 25 MG TABLET 50 MG PO ×2 (07:48→20:57)
[2022-11-30] MEDS: hydrOXYzine HCL 50 MG TABLET PO ×2 (07:48→20:57)
[2022-11-30] MEDS: busPIRone HCl 10 MG TABLET 20 MG PO ×3 (07:49→20:58)
[2022-11-30] MEDS: Propranolol HCL 10 MG TABLET PO ×3 (07:49→20:57)
[2022-11-30] MEDS: methADONE HCl 20 MG/2 ML ORAL.CONC 145 MG PO (07:49)
[2022-11-30] MEDS: DULoxetine HCl 60 MG CAPSULE.DR PO (07:49)
[2022-11-30] MEDS: Cyanocobalamin (Vitamin B-12) 1,000 MCG TABLET 1000 MCG PO (07:49)
[2022-11-30 12:00] VITALS: BP 135/86; PULSE 75; RESP 18; TEMP 36.4; O2SAT 96
--- NOTE | 2022-11-30 12:14 | MHC.RECOVRN ---
This lead technical writer met w/ patient. Patient was laying in bed, eyes closed, awake to verbal command. Poor eye contact, trailing off during conversation. Requires multiple garzon verbal redirections. Patient states does not want CSS/TSS level of care, patient reports is frustrated with those levels of care, as has been in/out of correction, CSS, TSS for past 3 years and feels like could run the place at this point . Patient interested in Sober Houses. Patient states is on Sober House waitlist, however, patient could not recall which facility waitlist patient is on. T/W attempted to review local sober houses w/ patient, patient states needs to rest, patient states memory feels fried.
--- NOTE | 2022-11-30 13:00 | PM.PNNEP ---
Subjective Subjective Date of Service: 11/30/22 Interval history: More alert and interactive complaining of pain all over her body CPK trending down Physical Exam Vital Signs: Vital Signs: Last Vital Signs Temp 97.6 F 11/30/22 12:00 Pulse 75 11/30/22 12:00 Resp 18 11/30/22 12:00 BP 135/86 11/30/22 12:00 Pulse Ox 96 11/30/22 12:00 O2 Del Method 11/30/22 12:00 O2 Flow Rate 4 11/27/22 13:40 BMI result Body Mass Index 44.0 Const: Other: Constitutional : Alert and interactive, mildly anxious Neck : Normal inspection, Supple Cardiovascular : RRR, no JVP, no lower extremity edema Respiratory : good bilateral air entry, no crackles, wheezes or rhonchi Gastrointestinal: soft, lax, Normal bowel sounds, Non tender Skin : Warm, Dry, lower extremities generalized rash with no tenderness Neurological : Alert and interactive, oriented by 3, moving all extremities Objective Data Labs 11/29/22 07:26 11/29/22 07:26 Labs: Laboratory Results - last 24 hr 11/30/22 06:40 Total Creatine Kinase 4420 H Procedures Date of Service Date of Service: 11/30/22 Assessment & Plan Assessment and plan (1) Rhabdomyolysis: Status: Acute Plan CPK is better IVF as orderd Avoid Cocaine will sign off Time Spent With Patient Time: Total time managing care of this patient today ____ minutes. Progress Note: Quality Stroke Does the patient have a stroke diagnosis?: No
[2022-11-30] MEDS: Nicotine Polacrilex 2 MG GUM 4 MG BUCCAL ×2 (15:45→20:57)
[2022-11-30 16:00] VITALS: BP 137/46; PULSE 89; RESP 18; TEMP 37; O2SAT 98
--- NOTE | 2022-11-30 16:56 | PC.NURSE ---
Patient refused heparin sub Q and phenobarbital despite given education. MD notified
[2022-11-30 19:40] VITALS: BP 157/79; PULSE 70; RESP 18; TEMP 36.1; O2SAT 97
[2022-11-30] MEDS: Zolpidem Tartrate 5 MG TABLET PO (20:57)
[2022-11-30 23:51] VITALS: BP 141/84; PULSE 72; RESP 18; TEMP 36.6; O2SAT 94
[2022-12-01] VITALS (7 sets, daily range): BP systolic 123–158; BP diastolic 60–96; PULSE 56–82; RESP 15–20; TEMP 36.1–37.1; O2SAT 95–97
[2022-12-01] MEDS: traMADoL HCL 50 MG TABLET 25 MG PO (02:05)
[2022-12-01] MEDS: Acetaminophen 325 MG TABLET 650 MG PO (06:05)
[2022-12-01] MEDS: clonazePAM 0.5 MG TABLET PO ×2 (06:05→21:51)
[2022-12-01 07:11] LABS: Hemoglobin 9.1 g/dl (12.0-16.0); Mean Corpuscular HGB Conc 31.4 g/dl (31.0-35.0); Mean Corpuscular Hemoglobin 27.9 pg (27.0-33.0); Mean Platelet Volume 9.8 fL (9.4-12.3); Red Blood Count 3.26 X10*6/uL (4.20-5.50); Red Cell Distribution Width 12.7 % (11.0-16.0); White Blood Count 3.6 X10*3/uL (4.8-10.8)
[2022-12-01 07:12] LABS: Platelet Count 97 X10*3/uL (160-400)
[2022-12-01 07:20] LABS: Anion Gap 9 (12-20); Blood Urea Nitrogen 6 mg/dL (9-16); Calcium 8.8 mg/dL (8.4-10.2); Carbon Dioxide 28 mmol/L (22-29); Chloride 107 mmol/L (96-108); Creatinine Clr Calc Pharmacy 141.1; Estimated Glomerular Filt Rate > 60; Glucose Random 139 mg/dL (60-115); Potassium 3.8 mmol/L (3.3-5.1); Sodium 140 mmol/L (135-145)
--- NOTE | 2022-12-01 08:20 | CONS_ITS ---
DATE OF SERVICE: 11/28/2022 REASON FOR CONSULTATION: Consult requested by the medical team to evaluate and help in management of patient with rhabdomyolysis. The patient is a 42-year-old female with past medical history of polysubstance abuse, bipolar disorder, depression, who presents to the hospital via EMS for altered mental status in the setting of drug overdose. She responded well to Narcan. She is presently in fair amount of pain, and is able to give very minimal history. She complains of generalized pain. She states that she was injecting cocaine and cannot give me exactly why she was injecting and stated injected all over. The EMS gave her 4 mg of Narcan with fair response for altered mental status when she came in. She had redness over the right side of her body. Blood work was consistent with elevated LFTs and rhabdomyolysis with a CPK level of 24,000, which increased around 45,000. Hence, renal consultation has been requested. She is on IV fluids with bicarb. REVIEW OF SYSTEMS: Unavailable. The patient is not giving good history. PAST MEDICAL HISTORY: History of back pain, bipolar disorder. Leg pain is bilateral. Opiate dependence. Rhabdomyolysis. Substance abuse. PERSONAL AND SOCIAL HISTORY: Patient is unemployed. Uses multiple drugs. As mention before, she currently is a tobacco smoker. Unclear if she drinks alcohol. ALLERGIES: INCLUDE ALLERGIES TO QUETIAPINE, AZATHIOPRINE, ERYTHROMYCIN, OLANZAPINE, SULFA, TRIMETHOPRIM, SEAFOOD, SHELLFISH, TRAZODONE. MEDICATION: At home include Tylenol, buspirone, cyanocobalamin, duloxetine, gabapentin, heparin, hydroxyzine, diclofenac. PHYSICAL EXAMINATION: GENERAL: Patient is resting in the bed. Awake, alert, in moderate distress. VITAL SIGNS: Blood pressure 120/62, pulse 62, afebrile. HEENT: Shows pupils equal and reactive bilaterally to light. No jugular venous distention is noted. NECK: Supple. CARDIOVASCULAR SYSTEM: S1, S2 without rub or murmur. RESPIRATORY SYSTEM: Decreased in bases. No crepitation or rhonchi is noted. ABDOMEN: Obese, soft with right lower quadrant tenderness. No guarding noted. Bowel sounds normal. EXTREMITIES: Showed 1+ edema with tenderness all over on touching her. LABORATORY DATA: Done recently. WBC is 3.9, hemoglobin 9.8, hematocrit 29.4, platelets 194. Sodium 131, potassium 3.3, chloride 106, CO2 30, BUN 14, creatinine 0.66, calcium 8.3. CPK was 30,190, albumin 2.3. Urine was positive for cocaine. Urinalysis was large, showed large 3+ blood on dipstick without any RBC seen in microscope. IMPRESSION: 1. 42-year-old female with rhabdomyolysis. Rhabdomyolysis likely due to cocaine use. It is unclear if she had a fall. The CPK level is slowly coming down. 2. Polysubstance abuse/cocaine abuse. 3. Mild hypokalemia. RECOMMENDATION: At this juncture, I recommend continuing IV fluids. She was on IV with sodium bicarb, but presently converted to LR, which we can continue at 125 mL/h. I would avoid using nephrotoxic agents/NSAIDs. We should replace potassium to keep potassium level around 4.0. We should also check her phosphorus and replace as needed. Check CPK again in a.m. Thank you for allowing me to participate in medical management of the patient. MD SCAR Pantoja/NOEMY / [phone]
[2022-12-01] MEDS: Lactated Ringers 1,000 ML 125 ML IVCONT ×2 (09:41)
[2022-12-01] MEDS: methADONE HCl 20 MG/2 ML ORAL.CONC 145 MG PO (09:43)
[2022-12-01] MEDS: Propranolol HCL 10 MG TABLET PO ×3 (09:44→21:51)
[2022-12-01] MEDS: Topiramate 25 MG TABLET 50 MG PO ×2 (09:44→21:51)
[2022-12-01] MEDS: Cyanocobalamin (Vitamin B-12) 1,000 MCG TABLET 1000 MCG PO (09:44)
[2022-12-01] MEDS: busPIRone HCl 10 MG TABLET 20 MG PO ×3 (09:44→21:51)
[2022-12-01] MEDS: hydrOXYzine HCL 50 MG TABLET PO ×2 (09:44→21:51)
[2022-12-01] MEDS: Gabapentin 100 MG CAPSULE 200 MG PO ×3 (09:44→21:51)
[2022-12-01] MEDS: DULoxetine HCl 60 MG CAPSULE.DR PO (09:44)
[2022-12-01] MEDS: Nicotine Polacrilex 2 MG GUM 4 MG BUCCAL (09:44)
[2022-12-01] MEDS: Cyclobenzaprine HCl 10 MG TABLET PO (09:44)
--- NOTE | 2022-12-01 11:44 | MHC.CM.PN ---
PT is recommending STR.R/T Patient's Methadone, there are very few SNF options for dc. SNF referrals have been made to SNF's that will consider accepting a Patient on Methadone and CM will continue to follow.
--- NOTE | 2022-12-01 13:38 | HO.PM.IMPN ---
Subjective Subjective Date of Service: 12/01/22 Interval History: More alert and interactive complaining of pain all over her body needs 2 assistants to get her up [place]K [place] 1800 no Other overnight events Review of Systems Review of Systems: Yes all other systems are reviewed and are negative Physical Exam Vital Signs: Vital Signs: Last Vital Signs Temp 97.7 F 12/01/22 11:22 Pulse 68 12/01/22 11:22 Resp 20 12/01/22 11:22 BP 123/60 12/01/22 11:22 Pulse Ox 95 12/01/22 11:22 O2 Del Method 12/01/22 11:22 O2 Flow Rate 4 11/27/22 13:40 BMI result Body Mass Index 44.0 Const: Other: Constitutional : Alert and interactive, mildly anxious Neck : Normal inspection, Supple Cardiovascular : RRR, no JVP, no lower extremity edema Respiratory : good bilateral air entry, no crackles, wheezes or rhonchi Gastrointestinal: soft, lax, Normal bowel sounds, Non tender Skin : Warm, Dry, lower extremities generalized rash with no tenderness Neurological : Alert and interactive, oriented by 3, moving all extremities Objective Data Active Medications Acetaminophen (Acetaminophen 325 Mg Tablet) 650 mg PO Q6H PRN PRN Reason: Pain, Mild (Pain Scale 1-3) Last Admin: 12/01/22 06:05 Dose: 650 mg Documented By: BRENDA Buspirone HCl (Buspirone Hcl 10 Mg Tablet) 20 mg PO TID [facility] Last Admin: 12/01/22 09:44 Dose: 20 mg Documented By: JOSEPH Clonazepam (Clonazepam 0.5 Mg Tablet) 0.5 mg PO BID PRN PRN Reason: Anxiety Last Admin: 12/01/22 06:05 Dose: 0.5 mg Documented By: BRENDA Cyanocobalamin (Cyanocobalamin (Vitamin B-12) 1,000 Mcg Tablet) 1,000 mcg PO DAILY [facility] Last Admin: 12/01/22 09:44 Dose: 1,000 mcg Documented By: JOSEPH Cyclobenzaprine HCl (Cyclobenzaprine Hcl 10 Mg Tablet) 10 mg PO BID PRN PRN Reason: Muscle Spasm Last Admin: 12/01/22 09:44 Dose: 10 mg Documented By: JOSEPH Duloxetine HCl (Duloxetine Hcl 60 Mg Capsule.Dr) 60 mg PO DAILY [facility] Last Admin: 12/01/22 09:44 Dose: 60 mg Documented By: JOSEPH Gabapentin (Gabapentin 100 Mg Capsule) 200 mg PO TID [facility] Last Admin: 12/01/22 09:44 Dose: 200 mg Documented By: JOSEPH Heparin Sodium (Porcine) (Heparin Sodium,Porcine 5,000 Unit/Ml Vial) 5,000 unit SUBCUT Q8H [facility] Last Admin: 12/01/22 05:13 Dose: Not Given Documented By: BRENDA Non-Admin Reason: Patient Refused Hydroxyzine HCl (Hydroxyzine Hcl 50 Mg Tablet) 50 mg PO BID [facility] Last Admin: 12/01/22 09:44 Dose: 50 mg Documented By: JOSEPH Lactated Ringer's (Lr) 1,000 mls @ 125 mls/hr IVCONT .Q8H [facility] Last Admin: 12/01/22 09:41 Dose: 125 mls/hr Documented By: JOSEPH Methadone HCl (Methadone Hcl 20 Mg/2 Ml Oral.Conc) 145 mg PO DAILY [facility] Last Admin: 12/01/22 09:43 Dose: 145 mg Documented By: JOSEPH Naloxone HCl (Naloxone Hcl Nasal 4 Mg [place]) 4 mg NOSTRILALT ONCE PRN PRN Reason: Opiate Reversal Nicotine Polacrilex (Nicotine Polacrilex 2 Mg Gum) 4 mg BUCCAL Q2H PRN PRN Reason: Nicotine Cravings Last Admin: 12/01/22 09:44 Dose: 4 mg Documented By: JOSEPH Ondansetron HCl (Ondansetron Hcl 4 Mg/2 Ml Vial) 4 mg IVPUSH Q8H PRN PRN Reason: Nausea and Vomiting Pharmacy Consult (Consult Rx Perform Med Rec) 1 each MISCELLANE ONCE PRN PRN Reason: Consult order Pharmacy Consult (Consult Rx Etoh Phenob Po Only) 1 each MISCELLANE ONCE PRN; Protocol PRN Reason: Consult order Phenobarbital (Phenobarbital 30 Mg Tablet) 30 mg PO BID [facility] Stop: 12/02/22 21:01 Last Admin: 12/01/22 09:48 Dose: Not Given Documented By: JOSEPH Non-Admin Reason: Patient Refused Phenobarbital (Phenobarbital 15 Mg Tablet) 15 mg PO DAILY [facility] Stop: 12/04/22 09:01 Propranolol HCl (Propranolol Hcl 10 Mg Tablet) 10 mg PO TID [facility]; Protocol Last Admin: 12/01/22 09:44 Dose: 10 mg Documented By: JOSEPH Sodium Chloride (0.9 % Sodium Chloride Flush 3 Ml Syringe) 3 ml IVFLUSH QSHIFT [facility] Last Admin: 12/01/22 09:44 Dose: Not Given Documented By: JOSEPH Non-Admin Reason: IV Running Topiramate (Topiramate 25 Mg Tablet) 50 mg PO BID [facility] Last Admin: 12/01/22 09:44 Dose: 50 mg Documented By: JOSEPH Zolpidem Tartrate (Zolpidem Tartrate 5 Mg Tablet) 5 mg PO BEDTIME PRN PRN Reason: Sleep Last Admin: 11/30/22 20:57 Dose: 5 mg Documented By: BRENDA Labs 12/01/22 06:47 12/01/22 06:48 Labs: Laboratory Results - last 24 hr 12/01/22 12/01/22 12/01/22 06:47 06:48 06:48 MCV 89.0 MCH 27.9 MCHC 31.4 RDW 12.7 Plt Count 97 L MPV 9.8 Absolute Nucleated RBC 0.000 Nucleated RBC % (auto) 0.0 Anion Gap 9 L Estim Creat Clear Calc 141.1 Estimated GFR > 60 Random Glucose 139 H Calcium 8.8 Total Creatine Kinase 1859 H Assessment and Plan (1) Opioid dependence: Status: Acute (2) Thrombocytopenia: Status: Acute (3) Rhabdomyolysis: Status: Acute Plan A 72 years old male with PMH of COPD, CAD, type 2 diabetes, giant cell arthritis among others who presented to the hospital as a referral from Cardiology office for tachycardia. Toxic metabolic encephalopathy secondary to polysubstance abuse and intoxication Positive tox screen for fentanyl and cocaine Responded to Narcan Narcan p.r.n. if needed Addiction team evaluation methadone home dose Rhabdomyolysis CPK trended down to 1800 dc IVF dc CVC and place peripheral IV Follow BMP closely Nephrology evaluation Alcohol withdrawal Phenobarb protocol PTSD Continue buspirone, topiramate and duloxetine Neuropathy Continue gabapentin DVT PPX Heparin The patient will likely need Overnight hospital stay for treatment of rhabdomyolysis pending PT eval and safe discharge plan Time Spent With Patient Time: Total time managing care of this patient today ____ minutes. Quality Stroke Does the patient have a stroke diagnosis?: No VTE Prior VTE?: No VTE Risk Level:: Medical - moderate - high VTE Device Contraindication: Treatment Not Indicated VTE Drug Contraindication: N/A - Med Ordered
--- NOTE | 2022-12-01 13:39 | P.CDIM_ITS ---
PROVIDER RESPONSE TEXT: To clarify, the appropriate diagnosis supported by the clinical indicators: Drug-induced pancytopenia QUERY TEXT: PHYSICIAN'S DOCUMENTATION REQUEST Date of Query: 12/01/2022 08:12 AM EDT Patient Name: Carlota Sebastian Admit Date: 11/27/2022 Dear Nathan Gomes, A review of the medical record indicates additional documentation may be needed. Please review below and update the documentation accordingly. Is there a diagnosis that correlates with the findings below: Clinical Indicators: Labs on 11/29: WBC - 2.7 RBC - 3.41 Hgb - 9.6 Plt - 94 Per ER note: presented to the hospital as a referral from Cardiology office for tachycardia Patient also has a history of rash that was documented yesterday. Positive generalized malaise weakness Other indicators/risk factors: -Patient admitted after drug overdose -Patient with polysubstance abuse Based on the above, could you clarify the appropriate diagnosis, if significant, that supports the ab ove abnormalities and additional evaluation, monitoring, and/or treatment rendered: Drug-induced pancytopenia Pancytopenia due to Please specify cause Other Other (explain) Clinically unable to determine (explain) Thank you, Ines Falk MS, RN, CCRN Use of terms such as suspected, likely, concern for, or probable (associated with a specific diagnosi s that is being evaluated, monitored, or treated as if it exists) are acceptable and can be coded in the inpatient se tting, when documented at the time of discharge. Please use your independent medical judgment in providing your response. THIS QUERY IS PART OF THE PERMANENT MEDICAL RECORD
--- NOTE | 2022-12-01 13:39 | P.CDIM_ITS ---
PROVIDER RESPONSE TEXT: To clarify, the appropriate diagnosis supported by the clinical indicators: Severe or Morbid Obesity without alveolar hypoventilation QUERY TEXT: PHYSICIAN'S DOCUMENTATION REQUEST Date of Query: 12/01/2022 08:17 AM EDT Patient Name: Carlota Sebastian Admit Date: 11/27/2022 Dear Nathan Gomes, A review of the medical record indicates additional documentation may be needed. Please review below and update the documentation accordingly. Is there a diagnosis that correlates with the findings below: Clinical Indicators: BMI - 44.0 Height - 5ft 5in Weight - 120kg Per RN shift assessments: Abdomen large, obese, & round If possible, please provide an associated diagnosis related to the abnormal BMI, such as: Obesity due to excess calories Obesity due to other cause Specify the other cause Severe or Morbid Obesity with alveolar hypoventilation Severe or Morbid Obesity without alveolar hypoventilation BMI is not significant Other Other (explain) Clinically unable to determine (explain) Thank you, Ines Falk MS, RN, CCRN Use of terms such as suspected, likely, concern for, or probable (associated with a specific diagnosi s that is being evaluated, monitored, or treated as if it exists) are acceptable and can be coded in the inpatient se tting, when documented at the time of discharge. Please use your independent medical judgment in providing your response. THIS QUERY IS PART OF THE PERMANENT MEDICAL RECORD
[2022-12-01] MEDS: Folic Acid 1 MG TABLET PO (14:28)
[2022-12-01] MEDS: Thiamine HCL 100 MG TABLET PO (14:28)
[2022-12-01] MEDS: 0.9 % Sodium Chloride Flush 3 ML SYRINGE IVFLUSH (14:29)
--- NOTE | 2022-12-01 14:33 | PC.NURSE ---
Patient refused to have a peripheral Iv place or the Central line triple lumen removed. Md weinberg
[2022-12-01] MEDS: Zolpidem Tartrate 5 MG TABLET PO (22:12)
[2022-12-02] VITALS (7 sets, daily range): BP systolic 102–138; BP diastolic 56–80; PULSE 68–79; RESP 18–20; TEMP 35.7–37.1; O2SAT 93–96
[2022-12-02] MEDS: 0.9 % Sodium Chloride Flush 3 ML SYRINGE IVFLUSH (00:49)
--- NOTE | 2022-12-02 05:55 | PC.NURSE ---
Patient was reluctant to have RN flush her CVC. She refused to have a peripheral Iv place or the Central line triple lumen removed. Pt also refusing phenobarb and heparin shot.
--- NOTE | 2022-12-02 09:44 | MHC.CM.PN ---
PT is recommending STR; [facility] has accepted Patient pending anticipated bed availability tomorrow or and has indicated that Patient will need Guest Dosing at [facility] for her Methadone( [facility] is closed today (? weather related). CM met with Patient at bedside and she is pleased with this dc plan. CM will not be able to address Guest dosing until Methadone Clinic reopens tomorrow. CM will inform MD at [facility]OUNDS and continue to follow.
[2022-12-02] MEDS: Gabapentin 100 MG CAPSULE 200 MG PO ×3 (10:05→21:42)
[2022-12-02] MEDS: Cyanocobalamin (Vitamin B-12) 1,000 MCG TABLET 1000 MCG PO (10:05)
[2022-12-02] MEDS: hydrOXYzine HCL 50 MG TABLET PO ×2 (10:05→21:41)
[2022-12-02] MEDS: Folic Acid 1 MG TABLET PO (10:05)
[2022-12-02] MEDS: Propranolol HCL 10 MG TABLET PO ×3 (10:05→21:42)
[2022-12-02] MEDS: busPIRone HCl 10 MG TABLET 20 MG PO ×3 (10:05→21:49)
[2022-12-02] MEDS: methADONE HCl 20 MG/2 ML ORAL.CONC 145 MG PO (10:06)
[2022-12-02] MEDS: Thiamine HCL 100 MG TABLET PO (10:06)
[2022-12-02] MEDS: DULoxetine HCl 60 MG CAPSULE.DR PO (10:06)
[2022-12-02] MEDS: Topiramate 25 MG TABLET 50 MG PO ×2 (10:06→21:42)
[2022-12-02] MEDS: Acetaminophen 325 MG TABLET 650 MG PO (10:11)
[2022-12-02] MEDS: Cyclobenzaprine HCl 10 MG TABLET PO ×2 (10:11→21:42)
[2022-12-02] MEDS: clonazePAM 0.5 MG TABLET PO ×2 (10:11→21:42)
--- NOTE | 2022-12-02 12:20 | PC.NURSE ---
Thick, yellow discharge was noted at fem site upon removal of line. MD and infection control were informed. Line and site cultured as ordered.
--- NOTE | 2022-12-02 14:59 | P.PNIM_ITS ---
Subjective Subjective Date of Service: 12/02/22 Interval History: More alert and interactive complaining of pain all over her body but participating with PT Femoral line site erythema and secretions no Other overnight events Review of Systems Review of Systems: Yes all other systems are reviewed and are negative Physical Exam Vital Signs: Vital Signs: Last Vital Signs Temp 98.1 F 12/02/22 11:31 Pulse 72 12/02/22 11:31 Resp 20 12/02/22 11:31 BP 138/80 12/02/22 11:31 Pulse Ox 96 12/02/22 11:31 O2 Del Method 12/02/22 11:31 O2 Flow Rate 5 12/01/22 19:01 BMI result Body Mass Index 44.0 Const: Other: Constitutional : Alert and interactive, mildly anxious Neck : Normal inspection, Supple Cardiovascular : RRR, no JVP, no lower extremity edema Respiratory : good bilateral air entry, no crackles, wheezes or rhonchi Gastrointestinal: soft, lax, Normal bowel sounds, Non tender Skin : Warm, Dry, mild erythema at site of femoral line, small amount of yellowish discharge, no tenderness or induration Neurological : Alert and interactive, oriented by 3, moving all extremities Objective Data Active Medications Acetaminophen (Acetaminophen 325 Mg Tablet) 650 mg PO Q6H PRN PRN Reason: Pain, Mild (Pain Scale 1-3) Last Admin: 12/02/22 10:11 Dose: 650 mg Documented By: RICARDO Buspirone HCl (Buspirone Hcl 10 Mg Tablet) 20 mg PO TID [facility] Last Admin: 12/02/22 14:06 Dose: 20 mg Documented By: RICARDO Clonazepam (Clonazepam 0.5 Mg Tablet) 0.5 mg PO BID PRN PRN Reason: Anxiety Last Admin: 12/02/22 10:11 Dose: 0.5 mg Documented By: RICARDO Cyanocobalamin (Cyanocobalamin (Vitamin B-12) 1,000 Mcg Tablet) 1,000 mcg PO DAILY [facility] Last Admin: 12/02/22 10:05 Dose: 1,000 mcg Documented By: RICARDO Cyclobenzaprine HCl (Cyclobenzaprine Hcl 10 Mg Tablet) 10 mg PO BID PRN PRN Reason: Muscle Spasm Last Admin: 12/02/22 10:11 Dose: 10 mg Documented By: LEYDAEMELY Duloxetine HCl (Duloxetine Hcl 60 Mg Capsule.Dr) 60 mg PO DAILY [facility] Last Admin: 12/02/22 10:06 Dose: 60 mg Documented By: BUTCH-EMELY Folic Acid (Folic Acid 1 Mg Tablet) 1 mg PO DAILY [facility] Last Admin: 12/02/22 10:05 Dose: 1 mg Documented By: BUTCH-EMELY Gabapentin (Gabapentin 100 Mg Capsule) 200 mg PO TID [facility] Last Admin: 12/02/22 14:06 Dose: 200 mg Documented By: BUTCH-EMELY Heparin Sodium (Porcine) (Heparin Sodium,Porcine 5,000 Unit/Ml Vial) 5,000 unit SUBCUT Q8H [facility] Last Admin: 12/02/22 13:09 Dose: Not Given Documented By: BUTCH-MITCHELFA Non-Admin Reason: Patient Refused Hydroxyzine HCl (Hydroxyzine Hcl 50 Mg Tablet) 50 mg PO BID [facility] Last Admin: 12/02/22 10:05 Dose: 50 mg Documented By: BUTCH-EMELY Methadone HCl (Methadone Hcl 20 Mg/2 Ml Oral.Conc) 145 mg PO DAILY [facility] Last Admin: 12/02/22 10:06 Dose: 145 mg Documented By: BUTCH-EMELY Naloxone HCl (Naloxone Hcl Nasal 4 Mg [place]) 4 mg NOSTRILALT ONCE PRN PRN Reason: Opiate Reversal Nicotine Polacrilex (Nicotine Polacrilex 2 Mg Gum) 4 mg BUCCAL Q2H PRN PRN Reason: Nicotine Cravings Last Admin: 12/01/22 09:44 Dose: 4 mg Documented By: CTORRZ Ondansetron HCl (Ondansetron Hcl 4 Mg/2 Ml Vial) 4 mg IVPUSH Q8H PRN PRN Reason: Nausea and Vomiting Pharmacy Consult (Consult Rx Perform Med Rec) 1 each MISCELLANE ONCE PRN PRN Reason: Consult order Pharmacy Consult (Consult Rx Etoh Phenob Po Only) 1 each MISCELLANE ONCE PRN; Protocol PRN Reason: Consult order Phenobarbital (Phenobarbital 30 Mg Tablet) 30 mg PO BID [facility] Stop: 12/02/22 21:01 Last Admin: 12/02/22 10:04 Dose: Not Given Documented By: BUTCH-SOFFA Non-Admin Reason: Patient Refused Phenobarbital (Phenobarbital 15 Mg Tablet) 15 mg PO DAILY [facility] Stop: 12/04/22 09:01 Propranolol HCl (Propranolol Hcl 10 Mg Tablet) 10 mg PO TID [facility]; Protocol Last Admin: 12/02/22 14:06 Dose: 10 mg Documented By: RICARDO Sodium Chloride (0.9 % Sodium Chloride Flush 3 Ml Syringe) 3 ml IVFLUSH QSHIFT [facility] Last Admin: 12/02/22 12:23 Dose: Not Given Documented By: RICARDO Non-Admin Reason: See Note Thiamine HCl (Thiamine Hcl 100 Mg Tablet) 100 mg PO DAILY [facility] Last Admin: 12/02/22 10:06 Dose: 100 mg Documented By: RICARDO Topiramate (Topiramate 25 Mg Tablet) 50 mg PO BID [facility] Last Admin: 12/02/22 10:06 Dose: 50 mg Documented By: RICARDO Zolpidem Tartrate (Zolpidem Tartrate 5 Mg Tablet) 5 mg PO BEDTIME PRN PRN Reason: Sleep Last Admin: 12/01/22 22:12 Dose: 5 mg Documented By: KAREEMM Labs 12/01/22 06:47 12/01/22 06:48 Microbiology Microbiology Results: Microbiology 12/02/22 10:49 Gram Stain - Final Iv Site - Central Assessment and Plan (1) Physical deconditioning: Status: Acute (2) Cocaine abuse: Status: Acute (3) Toxic metabolic encephalopathy: Status: Acute (4) Rhabdomyolysis: Status: Acute Plan A 72 years old male with PMH of COPD, CAD, type 2 diabetes, giant cell arthritis among others who presented to the hospital as a referral from Cardiology office for tachycardia. Toxic metabolic encephalopathy secondary to polysubstance abuse and intoxication Positive tox screen for fentanyl and cocaine Responded to Narcan Narcan p.r.n. if needed Addiction team evaluation methadone home dose Rhabdomyolysis CPK trended down dc IVF dc CVC and place peripheral IV Follow BMP closely Nephrology evaluation Skin erythema site of femoral line wound and cather tip sent no sepsis, hold on blood cx local Abx Alcohol withdrawal Phenobarb protocol PTSD Continue buspirone, topiramate and duloxetine Neuropathy Continue gabapentin DVT PPX Heparin The patient will likely need Overnight hospital stay for treatment of rhabdomyolysis pending safe discharge plan Time Spent With Patient Time: Total time managing care of this patient today ____ minutes. Quality Stroke Does the patient have a stroke diagnosis?: No VTE Prior VTE?: No VTE Risk Level:: Medical - moderate - high VTE Device Contraindication: Treatment Not Indicated VTE Drug Contraindication: N/A - Med Ordered
[2022-12-02] MEDS: Zolpidem Tartrate 5 MG TABLET PO (21:41)
[2022-12-03] VITALS (7 sets, daily range): BP systolic 112–141; BP diastolic 56–75; PULSE 69–78; RESP 16–20; TEMP 36.1–37.1; O2SAT 95–98
--- NOTE | 2022-12-03 | ECG_ITS ---
Test Reason : methadone Blood Pressure : / mmHG Vent. Rate : 074 BPM Atrial Rate : 074 BPM P-R Int : 180 ms QRS Dur : 082 ms QT Int : 420 ms P-R-T Axes : 016 012 053 degrees QTc Int : 466 ms Normal sinus rhythm Inferior infarct (cited on or before 03-DEC-2022) Abnormal ECG When compared with ECG of 27-NOV-2022 17:45, Nonspecific T wave abnormality no longer evident in Inferior leads Referred By: Rubin Saeed Electronically Signed By:Amadeo Gutierrez
[2022-12-03] MEDS: Gabapentin 100 MG CAPSULE 200 MG PO ×3 (08:10→21:03)
[2022-12-03] MEDS: hydrOXYzine HCL 50 MG TABLET PO ×2 (08:10→21:04)
[2022-12-03] MEDS: busPIRone HCl 10 MG TABLET 20 MG PO ×3 (08:10→21:03)
[2022-12-03] MEDS: Propranolol HCL 10 MG TABLET PO ×3 (08:10→21:03)
[2022-12-03] MEDS: Thiamine HCL 100 MG TABLET PO (08:11)
[2022-12-03] MEDS: Cyanocobalamin (Vitamin B-12) 1,000 MCG TABLET 1000 MCG PO (08:11)
[2022-12-03] MEDS: Topiramate 25 MG TABLET 50 MG PO ×2 (08:11→21:04)
[2022-12-03] MEDS: Folic Acid 1 MG TABLET PO (08:11)
[2022-12-03] MEDS: DULoxetine HCl 60 MG CAPSULE.DR PO (08:11)
[2022-12-03] MEDS: methADONE HCl 20 MG/2 ML ORAL.CONC 145 MG PO (08:35)
--- NOTE | 2022-12-03 08:59 | PC.NURSE ---
pt refused heparin injection and phenobarb.
--- NOTE | 2022-12-03 09:46 | MHC.CM.PN ---
SANDRA spoke with Lakeisha at [facility] @ [phone], EXT [phone] for assistance with securing Guest Dosing for Patient, with goal of dc today to [facility] for STR. Lakeisha indicated that Patient's current Methadone Provider/[facility] [facility] needs to fax the Guest Dosing form to Lakeisha at [phone]. CM called [facility] @ [phone] and was transferred to several people. Chai @ [phone] indicated that CM needed to speak with Patient's Clinician but then realized that Patient does not have a Clinician and therefor she transferred me to a Clinical Electrical Prospecting Engineer/Adrianna and CM was only able to leave a detailed message and request a return call [facility]. SANDRA awaits a return call from Adrianna.
[2022-12-03] MEDS: Cyclobenzaprine HCl 10 MG TABLET PO ×2 (09:54→21:03)
[2022-12-03] MEDS: clonazePAM 0.5 MG TABLET PO ×2 (09:54→21:04)
--- NOTE | 2022-12-03 11:23 | MHC.CM.PN ---
CM reached out to [facility] on [facility] in [place] again ([phone]) to see if someone other than Adrianna(see previous CM PN)can assist/expedite Guest Dosing Form. Ultimately, SANDRA was told that Patient is NOT active with them but was in the referral process. CM met with Patient who explained that over the past year, because she has been in and out of various settings (hospital, [facility], care home etc) she has not been connected with a consistent Methadone Clinic for over a year. SANDRA spoke with RN SANDRA who suggested that Patient may need to be set up as a new Methadone Client. SANDRA has reached out to medical device sales representative Nurse/Miguelina to see if she is able to assist. CM will follow.
--- NOTE | 2022-12-03 12:17 | HO.PM.IMPN ---
Subjective Subjective Date of Service: 12/03/22 Interval History: no complaints Physical Exam Vital Signs: Vital Signs: Last Vital Signs Temp 97.0 F 12/03/22 11:12 Pulse 69 12/03/22 11:12 Resp 20 12/03/22 11:12 BP 141/69 H 12/03/22 11:12 Pulse Ox 95 12/03/22 11:12 O2 Del Method 12/03/22 11:12 O2 Flow Rate 5 12/01/22 19:01 BMI result Body Mass Index 44.0 Const: Other: Constitutional : Alert and interactive, mildly anxious Neck : Normal inspection, Supple Cardiovascular : RRR, no JVP, no lower extremity edema Respiratory : good bilateral air entry, no crackles, wheezes or rhonchi Gastrointestinal: soft, lax, Normal bowel sounds, Non tender Skin : Warm, Dry, mild erythema at site of femoral line, small amount of yellowish discharge, no tenderness or induration Neurological : Alert and interactive, oriented by 3, moving all extremities Objective Data Active Medications Acetaminophen (Acetaminophen 325 Mg Tablet) 650 mg PO Q6H PRN PRN Reason: Pain, Mild (Pain Scale 1-3) Last Admin: 12/02/22 10:11 Dose: 650 mg Documented By: RICARDO Buspirone HCl (Buspirone Hcl 10 Mg Tablet) 20 mg PO TID [facility] Last Admin: 12/03/22 08:10 Dose: 20 mg Documented By: KONSTANTIN Clonazepam (Clonazepam 0.5 Mg Tablet) 0.5 mg PO BID PRN PRN Reason: Anxiety Last Admin: 12/03/22 09:54 Dose: 0.5 mg Documented By: KONSTANTIN Cyanocobalamin (Cyanocobalamin (Vitamin B-12) 1,000 Mcg Tablet) 1,000 mcg PO DAILY [facility] Last Admin: 12/03/22 08:11 Dose: 1,000 mcg Documented By: KONSTANTIN Cyclobenzaprine HCl (Cyclobenzaprine Hcl 10 Mg Tablet) 10 mg PO BID PRN PRN Reason: Muscle Spasm Last Admin: 12/03/22 09:54 Dose: 10 mg Documented By: KONSTANTIN Duloxetine HCl (Duloxetine Hcl 60 Mg Capsule.Dr) 60 mg PO DAILY [facility] Last Admin: 12/03/22 08:11 Dose: 60 mg Documented By: KONSTANTIN Folic Acid (Folic Acid 1 Mg Tablet) 1 mg PO DAILY [facility] Last Admin: 12/03/22 08:11 Dose: 1 mg Documented By: KONSTANTIN Gabapentin (Gabapentin 100 Mg Capsule) 200 mg PO TID [facility] Last Admin: 12/03/22 08:10 Dose: 200 mg Documented By: KONSTANTIN Heparin Sodium (Porcine) (Heparin Sodium,Porcine 5,000 Unit/Ml Vial) 5,000 unit SUBCUT Q8H [facility] Last Admin: 12/03/22 05:22 Dose: Not Given Documented By: BRENDA Non-Admin Reason: Patient Refused Hydroxyzine HCl (Hydroxyzine Hcl 50 Mg Tablet) 50 mg PO BID [facility] Last Admin: 12/03/22 08:10 Dose: 50 mg Documented By: KONSTANTIN Methadone HCl (Methadone Hcl 20 Mg/2 Ml Oral.Conc) 145 mg PO DAILY [facility] Last Admin: 12/03/22 08:35 Dose: 145 mg Documented By: KONSTANTIN Naloxone HCl (Naloxone Hcl Nasal 4 Mg [place]) 4 mg NOSTRILALT ONCE PRN PRN Reason: Opiate Reversal Neomycin/Polymyxin/Bacitracin (Neomy/Polymyx/Bacit/Ointment 14 Gm Tube) 1 gm TOPICAL BID [facility]; Protocol Last Admin: 12/03/22 09:56 Dose: Not Given Documented By: KONSTANTIN Non-Admin Reason: pt states not needed at this time Nicotine Polacrilex (Nicotine Polacrilex 2 Mg Gum) 4 mg BUCCAL Q2H PRN PRN Reason: Nicotine Cravings Last Admin: 12/01/22 09:44 Dose: 4 mg Documented By: JOSEPH Ondansetron HCl (Ondansetron Hcl 4 Mg/2 Ml Vial) 4 mg IVPUSH Q8H PRN PRN Reason: Nausea and Vomiting Pharmacy Consult (Consult Rx Perform Med Rec) 1 each MISCELLANE ONCE PRN PRN Reason: Consult order Pharmacy Consult (Consult Rx Etoh Phenob Po Only) 1 each MISCELLANE ONCE PRN; Protocol PRN Reason: Consult order Phenobarbital (Phenobarbital 15 Mg Tablet) 15 mg PO DAILY [facility] Stop: 12/04/22 09:01 Last Admin: 12/03/22 08:58 Dose: Not Given Documented By: KONSTANTIN Non-Admin Reason: Patient Refused Propranolol HCl (Propranolol Hcl 10 Mg Tablet) 10 mg PO TID [facility]; Protocol Last Admin: 12/03/22 08:10 Dose: 10 mg Documented By: KONSTANTIN Sodium Chloride (0.9 % Sodium Chloride Flush 3 Ml Syringe) 3 ml IVFLUSH QSHIFT [facility] Last Admin: 12/03/22 08:07 Dose: Not Given Documented By: KONSTANTIN Non-Admin Reason: No Access Thiamine HCl (Thiamine Hcl 100 Mg Tablet) 100 mg PO DAILY [facility] Last Admin: 12/03/22 08:11 Dose: 100 mg Documented By: KONSTANTIN Topiramate (Topiramate 25 Mg Tablet) 50 mg PO BID [facility] Last Admin: 12/03/22 08:11 Dose: 50 mg Documented By: KONSTANTIN Zolpidem Tartrate (Zolpidem Tartrate 5 Mg Tablet) 5 mg PO BEDTIME PRN PRN Reason: Sleep Last Admin: 12/02/22 21:41 Dose: 5 mg Documented By: BRENDA Labs 12/01/22 06:47 12/01/22 06:48 Microbiology Microbiology Results: Microbiology 12/02/22 10:49 Gram Stain - Final Iv Site - Central Routine Culture - Preliminary No growth to date. 12/02/22 10:49 Catheter Tip Culture - Preliminary Catheter Tip - Other No growth after 1 day Assessment and Plan (1) Physical deconditioning: Status: Acute (2) Cocaine abuse: Status: Acute (3) Toxic metabolic encephalopathy: Status: Acute (4) Rhabdomyolysis: Status: Acute Plan A 72 years old male with PMH of COPD, CAD, type 2 diabetes, giant cell arthritis among others who presented to the hospital as a referral from Cardiology office for tachycardia. Toxic metabolic encephalopathy secondary to polysubstance abuse and intoxication Positive tox screen for fentanyl and cocaine Responded to Narcan Narcan p.r.n. if needed Addiction team evaluation methadone Rhabdomyolysis completed IV hydration resolved Skin erythema site of femoral line wound and cather tip sent - negative cultures Alcohol dependence with withdrawal Phenobarb protocol completed PTSD Continue buspirone, topiramate and duloxetine Neuropathy Continue gabapentin DVT PPX Heparin reason for continued hospitalization:safe dispo Time Spent With Patient Time: Total time managing care of this patient today ____ minutes. Quality Stroke Does the patient have a stroke diagnosis?: No VTE Prior VTE?: No VTE Risk Level:: Medical - moderate - high VTE Device Contraindication: Treatment Not Indicated VTE Drug Contraindication: N/A - Med Ordered
--- NOTE | 2022-12-03 12:35 | MHC.CM.PN ---
chimney builder Nurse/Miguelina is assisting with Methadone Guest Dosing issue and CM will continue to follow.
--- NOTE | 2022-12-03 12:41 | MHC.RECOVRN ---
Spoke with Adrianna Burnette ([phone]) clinical car cleaning supervisor at [facility] who is sending documentation to [facility] in [place], notifying the OTP that pt can continue care at [facility] after completion of treatment at [facility]. Spoke with May ([phone]) director at [facility] about situation, accepts pt for direct admit. CM aware.
--- NOTE | 2022-12-03 13:10 | MHC.CM.PN ---
Per manager rehab Nurse/Miguelina, Patient's Guest Dosing issue has been resolved; CM has informed [facility] and awaits [facility]'s approval to dc patient to them today. CM will follow.
[2022-12-03] MEDS: Nicotine Polacrilex 2 MG GUM 4 MG BUCCAL ×2 (14:27→21:07)
[2022-12-03] MEDS: Zolpidem Tartrate 5 MG TABLET PO (21:06)
[2022-12-04] MEDS: Acetaminophen 325 MG TABLET 650 MG PO (03:34)
[2022-12-04] MEDS: Nicotine Polacrilex 2 MG GUM 4 MG BUCCAL ×2 (03:38→08:10)
[2022-12-04 04:00] VITALS: BP 127/59; PULSE 73; RESP 16; TEMP 36.4; O2SAT 98
[2022-12-04 07:06] VITALS: BP 109/57; PULSE 82; RESP 20; TEMP 36.4; O2SAT 97
[2022-12-04] MEDS: methADONE HCl 20 MG/2 ML ORAL.CONC 145 MG PO (08:06)
[2022-12-04] MEDS: Folic Acid 1 MG TABLET PO (08:09)
[2022-12-04] MEDS: Cyanocobalamin (Vitamin B-12) 1,000 MCG TABLET 1000 MCG PO (08:09)
[2022-12-04] MEDS: Topiramate 25 MG TABLET 50 MG PO (08:09)
[2022-12-04] MEDS: Gabapentin 100 MG CAPSULE 200 MG PO (08:09)
[2022-12-04] MEDS: DULoxetine HCl 60 MG CAPSULE.DR PO (08:09)
[2022-12-04] MEDS: Propranolol HCL 10 MG TABLET PO (08:09)
[2022-12-04] MEDS: hydrOXYzine HCL 50 MG TABLET PO (08:09)
[2022-12-04] MEDS: busPIRone HCl 10 MG TABLET 20 MG PO (08:09)
[2022-12-04] MEDS: Thiamine HCL 100 MG TABLET PO (08:10)
--- NOTE | 2022-12-04 08:50 | P.PNIM_ITS ---
Subjective Subjective Date of Service: 12/04/22 Interval History: no complaints Physical Exam Vital Signs: Vital Signs: Last Vital Signs Temp 97.6 F 12/04/22 07:06 Pulse 82 12/04/22 07:06 Resp 20 12/04/22 07:06 BP 109/57 L 12/04/22 07:06 Pulse Ox 97 12/04/22 07:06 O2 Del Method 12/04/22 07:06 O2 Flow Rate 5 12/01/22 19:01 BMI result Body Mass Index 44.0 Const: Other: Constitutional : Alert and interactive, mildly anxious Neck : Normal inspection, Supple Cardiovascular : RRR, no JVP, no lower extremity edema Respiratory : good bilateral air entry, no crackles, wheezes or rhonchi Gastrointestinal: soft, lax, Normal bowel sounds, Non tender Skin : Warm, Dry, mild erythema at site of femoral line, small amount of yellowish discharge, no tenderness or induration Neurological : Alert and interactive, oriented by 3, moving all extremities Objective Data Active Medications Acetaminophen (Acetaminophen 325 Mg Tablet) 650 mg PO Q6H PRN PRN Reason: Pain, Mild (Pain Scale 1-3) Last Admin: 12/04/22 03:34 Dose: 650 mg Documented By: LUTHER Buspirone HCl (Buspirone Hcl 10 Mg Tablet) 20 mg PO TID [facility] Last Admin: 12/04/22 08:09 Dose: 20 mg Documented By: OUMOU Clonazepam (Clonazepam 0.5 Mg Tablet) 0.5 mg PO BID PRN PRN Reason: Anxiety Last Admin: 12/03/22 21:04 Dose: 0.5 mg Documented By: MYRA Cyanocobalamin (Cyanocobalamin (Vitamin B-12) 1,000 Mcg Tablet) 1,000 mcg PO DAILY [facility] Last Admin: 12/04/22 08:09 Dose: 1,000 mcg Documented By: OUMOU Cyclobenzaprine HCl (Cyclobenzaprine Hcl 10 Mg Tablet) 10 mg PO BID PRN PRN Reason: Muscle Spasm Last Admin: 12/03/22 21:03 Dose: 10 mg Documented By: MYRA Duloxetine HCl (Duloxetine Hcl 60 Mg Capsule.Dr) 60 mg PO DAILY [facility] Last Admin: 12/04/22 08:09 Dose: 60 mg Documented By: OUMOU Folic Acid (Folic Acid 1 Mg Tablet) 1 mg PO DAILY [facility] Last Admin: 12/04/22 08:09 Dose: 1 mg Documented By: OUMOU Gabapentin (Gabapentin 100 Mg Capsule) 200 mg PO TID [facility] Last Admin: 12/04/22 08:09 Dose: 200 mg Documented By: OUMOU Heparin Sodium (Porcine) (Heparin Sodium,Porcine 5,000 Unit/Ml Vial) 5,000 unit SUBCUT Q8H [facility] Last Admin: 12/04/22 05:29 Dose: Not Given Documented By: LUTHER Non-Admin Reason: Patient Refused Hydroxyzine HCl (Hydroxyzine Hcl 50 Mg Tablet) 50 mg PO BID [facility] Last Admin: 12/04/22 08:09 Dose: 50 mg Documented By: OUMOU Methadone HCl (Methadone Hcl 20 Mg/2 Ml Oral.Conc) 145 mg PO DAILY [facility] Last Admin: 12/04/22 08:06 Dose: 145 mg Documented By: OUMOU Naloxone HCl (Naloxone Hcl Nasal 4 Mg [place]) 4 mg NOSTRILALT ONCE PRN PRN Reason: Opiate Reversal Neomycin/Polymyxin/Bacitracin (Neomy/Polymyx/Bacit/Ointment 14 Gm Tube) 1 gm TOPICAL BID [facility]; Protocol Last Admin: 12/04/22 08:11 Dose: Not Given Documented By: OUMOU Non-Admin Reason: Patient Refused Nicotine Polacrilex (Nicotine Polacrilex 2 Mg Gum) 4 mg BUCCAL Q2H PRN PRN Reason: Nicotine Cravings Last Admin: 12/04/22 08:10 Dose: 4 mg Documented By: OUMOU Ondansetron HCl (Ondansetron Hcl 4 Mg/2 Ml Vial) 4 mg IVPUSH Q8H PRN PRN Reason: Nausea and Vomiting Pharmacy Consult (Consult Rx Perform Med Rec) 1 each MISCELLANE ONCE PRN PRN Reason: Consult order Pharmacy Consult (Consult Rx Etoh Phenob Po Only) 1 each MISCELLANE ONCE PRN; Protocol PRN Reason: Consult order Phenobarbital (Phenobarbital 15 Mg Tablet) 15 mg PO DAILY [facility] Stop: 12/04/22 09:01 Last Admin: 12/04/22 08:11 Dose: Not Given Documented By: OUMOU Non-Admin Reason: Patient Refused Propranolol HCl (Propranolol Hcl 10 Mg Tablet) 10 mg PO TID [facility]; Protocol Last Admin: 12/04/22 08:09 Dose: 10 mg Documented By: OUMOU Sodium Chloride (0.9 % Sodium Chloride Flush 3 Ml Syringe) 3 ml IVFLUSH QSHIFT [facility] Last Admin: 12/04/22 08:06 Dose: Not Given Documented By: OUMOU Non-Admin Reason: No Access Thiamine HCl (Thiamine Hcl 100 Mg Tablet) 100 mg PO DAILY [facility] Last Admin: 12/04/22 08:10 Dose: 100 mg Documented By: OUMOU Topiramate (Topiramate 25 Mg Tablet) 50 mg PO BID [facility] Last Admin: 12/04/22 08:09 Dose: 50 mg Documented By: OUMOU Zolpidem Tartrate (Zolpidem Tartrate 5 Mg Tablet) 5 mg PO BEDTIME PRN PRN Reason: Sleep Last Admin: 12/03/22 21:06 Dose: 5 mg Documented By: MYRA Labs 12/01/22 06:47 12/01/22 06:48 Microbiology Microbiology Results: Microbiology 12/02/22 10:49 Catheter Tip Culture - Preliminary Catheter Tip - Other Coag negative Staphylococcus 12/02/22 10:49 Gram Stain - Final Iv Site - Central Routine Culture - Final No growth after 2 days Assessment and Plan (1) Physical deconditioning: Status: Acute (2) Cocaine abuse: Status: Acute (3) Toxic metabolic encephalopathy: Status: Acute (4) Rhabdomyolysis: Status: Acute Plan A 72 years old male with PMH of COPD, CAD, type 2 diabetes, giant cell arthritis among others who presented to the hospital as a referral from Cardiology office for tachycardia. Toxic metabolic encephalopathy secondary to polysubstance abuse and intoxication Positive tox screen for fentanyl and cocaine Responded to Narcan Narcan p.r.n. if needed Addiction team evaluation methadone Rhabdomyolysis completed IV hydration resolved Skin erythema site of femoral line wound and cather tip sent - negative cultures Alcohol dependence with withdrawal Phenobarb protocol completed PTSD Continue buspirone, topiramate and duloxetine Neuropathy Continue gabapentin DVT PPX Heparin reason for continued hospitalization:safe dispo Time Spent With Patient Time: Total time managing care of this patient today ____ minutes. Quality Stroke Does the patient have a stroke diagnosis?: No VTE Prior VTE?: No VTE Risk Level:: Medical - moderate - high VTE Device Contraindication: Treatment Not Indicated VTE Drug Contraindication: N/A - Med Ordered
[2022-12-04] MEDS: clonazePAM 0.5 MG TABLET PO (09:08)
[2022-12-04] MEDS: Cyclobenzaprine HCl 10 MG TABLET PO (09:08)
--- NOTE | 2022-12-04 09:17 | PM.DS ---
DS: Providers Provider Date of Service: 12/04/22 Date of admission: 11/27/22 17:58 Primary care physician: Cici Corey MD Consults: 11/27/22 17:46 Consult to Nephrology Routine Consulting Provider: Mehul Molina Reason for consultation: Rhabdomyolysis 11/27/22 17:56 Addiction Medicine Routine Consulting Provider: Addiction Covering Reason for consultation: overdose, on methadone for eval and rec DS: Diagnosis Discharge Diagnosis (1) Physical deconditioning: Status: Acute (2) Cocaine abuse: Status: Acute (3) Toxic metabolic encephalopathy: Status: Acute (4) Rhabdomyolysis: Status: Acute DS: Summary Hospital Course Hospital Course: from initial hpi: Chief Complaint: Altered mentation, overdose 42 years old lady with PMH of polysubstance abuse on methadone, bipolar, depression among others who presents to the hospital by EMS for altered mentation secondary to overdose as she responded well to Narcan.? The patient was unable to provide any meaningful history as she was barely awake and opening her eyes to physical response.? She was found agitated according to the ER provider by EMS who gave her 4 mg of Narcan with fair response as she start to wake up. She was noted to have a new redness over right side of her body.? Blood work was consistent with elevated LFT and CPK more than 24,000 with normal kidney function.? Started on IV fluid and bicarb drip. A femoral line was placed for IV access. hospital course: Patient was admitted for toxic metabolic encephalopathy secondary to polysubstance abuse and intoxication. She does to positive fentanyl and cocaine. She responded to Narcan. She was seen by addiction medicine team and restarted patient on methadone 145mg po daily, last dose 12/04/22 at 8:06am. Patient was also noted to have acute rhabdomyolysis she was given aggressive IV hydration and rhabdomyolysis resolved. For alcohol dependence with withdrawal she was treated phenobarbital protocol. For PTSD she was continued on BuSpar, topiramate, Cymbalta. for neuropathy she is continue on gabapentin. Patient is feeling better will be discharged senior care facility. She is expected to require less than 30 days. Time Spent with Patient Time attestation: Total time managing care of this patient today ____ minutes. Discharge coordination time: Greater than 30 minutes Quality: Safe Use of Opioids Does Pt have an Active Cancer Diagnosis on the Problem List?: No Quality: Stroke Does the patient have a stroke diagnosis?: No Physical Exam Vital Signs: Vital Signs: Last Vital Signs Temp 97.6 F 12/04/22 07:06 Pulse 82 12/04/22 07:06 Resp 20 12/04/22 07:06 BP 109/57 L 12/04/22 07:06 Pulse Ox 97 12/04/22 07:06 O2 Del Method 12/04/22 07:06 O2 Flow Rate 5 12/01/22 19:01 BMI result Body Mass Index 44.0 Const: Other: Constitutional : Alert and interactive, mildly anxious Neck : Normal inspection, Supple Cardiovascular : RRR, no JVP, no lower extremity edema Respiratory : good bilateral air entry, no crackles, wheezes or rhonchi Gastrointestinal: soft, lax, Normal bowel sounds, Non tender Skin : Warm, Dry, mild erythema at site of femoral line, small amount of yellowish discharge, no tenderness or induration Neurological : Alert and interactive, oriented by 3, moving all extremities DS: Data Data Completed and Pending Completed studies during hospitalization [Text1]: Procedures Drainage of Right Upper Arm Subcutaneous Tissue and Fascia, Open Approach (04/03/21) Insertion of Infusion Device into Left Basilic Vein, Percutaneous Approach (04/21/21) Insertion of Infusion Device into Left Brachial Vein, Percutaneous Approach (01/03/21) Labs on day of discharge: Preliminary micro results at discharge 12/02/22 10:49 Catheter Tip Culture - Preliminary Catheter Tip - Other Coag negative Staphylococcus Discharge Plan Discharge Anticipated Discharge Date/Time: 12/04/22 09:13 Patient Disposition: Xfer SNF Discharge Diagnosis: rhabdo Referrals: [facility] [Outside] - 1 Week Cici Corey MD [Primary Care Provider] - 1 Week Discharge Medications: Continued acetaminophen 325 mg tablet 650 mg PO Q6H PRN (Reason: Pain) propranolol 10 mg Tablet 10 mg PO TID 30 Days Qty: 90 0RF Protocol: Hold for SBP/HR < HOLD for SBP < : 90 HOLD for HR < : 60 duloxetine 60 mg Capsule,Delayed Release(Dr/Ec) 60 mg PO DAILY 30 Days Qty: 30 0RF cyclobenzaprine 10 mg tablet 10 mg PO BID PRN (Reason: Muscle Spasm) 30 Days Qty: 60 0RF cyanocobalamin (vitamin B-12) 1,000 mcg tablet 1,000 mcg PO DAILY 30 Days Qty: 30 0RF gabapentin 800 mg tablet 800 mg PO TID 7 Days Qty: 21 3RF buspirone 10 mg tablet 20 mg PO TID 30 Days Qty: 180 0RF topiramate 50 mg tablet 50 mg PO BID 30 Days Qty: 60 0RF hydroxyzine HCl 50 mg tablet 1 tab PO BID zolpidem 5 mg tablet 1 tab PO BEDTIME PRN (Reason: Sleep) ketoconazole 2 % cream 1 applic topical BID loratadine [Allergy Relief (loratadine)] 10 mg tablet 1 tab PO DAILY PRN (Reason: Allergy Symptoms) nicotine (polacrilex) 4 mg gum 4 mg buccal Q2H PRN (Reason: Nicotine Cravings) methadone [Methadose] 10 mg/mL concentrate 145 mg PO DAILY Rx Instructions: Partial Fill upon patient request. Discontinued diclofenac potassium 50 mg tablet 1 tab PO BID PRN (Reason: Pain (Scale Score 1-3)) Discharge Orders: Discharge Order (Routine); Ordered 12/04/22 Ordered By: Rubin Saeed Diet: Advance to usual diet Activity on Discharge: As tolerated Stand Alone Forms: Patient Portal Discharge page Care Plan Goals: recovery Health Concerns: polysubastance dependence Plan of Treatment: rehab, methadone Assessment: see above
--- NOTE | 2022-12-04 09:19 | MHC.CM.PN ---
Per MD, Patient will be medically cleared for dc today to [facility]. Patient will dc to [facility] today at 1PM, via [facility]. Patient is aware of and in agreement with the dc plan. Patient is alert and oriented and CM did not contact Patient's Contact/Mother;Patient can inform her family herself if she wishes to do so.
[2022-12-04 11:07] VITALS: BP 130/72; PULSE 72; RESP 20; TEMP 36.2; O2SAT 97
[2022-12-04 12:42] LABS: COVID-19 Test Negative (Negative); IDNOW Serial# BCCEAD1C
== END 2022-12-04 14:04 | disposition skilled nursing facility (03) | DRG 812 ==
LOC: HO.ED 16:36 → HO.EDOVER 18:18 → HO.IMC 18:49
PROVIDERS: Admitting Provider Student in an Organized Health Care Education/Training Program; Emergency Provider Emergency Medicine Emergency Medical Services; PCP Internal Medicine; Visit Provider Internal Medicine
DX: T40.2X1A Poisoning by other opioids, accidental (unintentional), initial encounter (principal); G92.8 Other toxic encephalopathy; D61.811 Other drug-induced pancytopenia; M31.6 Other giant cell arteritis; M62.82 Rhabdomyolysis; F31.9 Bipolar disorder, unspecified; E11.42 Type 2 diabetes mellitus with diabetic polyneuropathy; F11.20 Opioid dependence, uncomplicated; I25.10 Atherosclerotic heart disease of native coronary artery without angina pectoris; J44.9 Chronic obstructive pulmonary disease, unspecified; E87.6 Hypokalemia; F43.10 Post-traumatic stress disorder, unspecified; F17.210 Nicotine dependence, cigarettes, uncomplicated; T82.7XXA Infection and inflammatory reaction due to other cardiac and vascular devices, implants and grafts, initial encounter; F10.239 Alcohol dependence with withdrawal, unspecified; Z71.6 Tobacco abuse counseling; F19.129 Other psychoactive substance abuse with intoxication, unspecified; E66.01 Morbid (severe) obesity due to excess calories; Z68.41 Body mass index [BMI] 40.0-44.9, adult; Z20.822 Contact with and (suspected) exposure to COVID-19; Z59.02 Unsheltered homelessness; Z88.1 Allergy status to other antibiotic agents; Z88.2 Allergy status to sulfonamides; Z79.899 Other long term (current) drug therapy
CPT/HCPCS: 0241U; 36415; 71045; 80048; 80053; 80076; 80307; 81001; 82077; 82550; 82947; 84484; 84702; 85025; 85027; 87070; 87071; 87147; 87205; 87635; 93005; 96360; 97162; 99284; 99285; C1758; J1643; J2560

== ENCOUNTER 2023-11-16 21:58 | Inpatient (IN) | payer OTHER, SELFPAY ==
--- NOTE | 2023-11-16 | ECG_ITS ---
Test Reason : SUBSTANCE USE Blood Pressure : / mmHG Vent. Rate : 090 BPM Atrial Rate : 090 BPM P-R Int : 182 ms QRS Dur : 082 ms QT Int : 378 ms P-R-T Axes : 063 028 063 degrees QTc Int : 462 ms Normal sinus rhythm Possible Inferior infarct (cited on or before 03-DEC-2022) Abnormal ECG When compared with ECG of 03-DEC-2022 13:22, Nonspecific T wave abnormality no longer evident in Anterolateral leads Referred By: Francheska Gray Electronically Signed By:LAMBERTO CARLIN
--- NOTE | ~2023-11-16 | XR_ITS ---
EXAMINATION: XR CHEST CLINICAL INFORMATION: SOB, productive cough COMPARISON: None available. TECHNIQUE: Frontal view of the chest was obtained. FINDINGS: No significant abnormality is noted involving the heart, lungs, mediastinum, bony thorax or soft tissues. XR/XR chest 1V IMPRESSION: Unremarkable chest examination.
--- NOTE | ~2023-11-16 | XR_ITS ---
Exams: 3 views coccyx and 2 views of the cervical spine HISTORY: Pain. FINDINGS: No coccygeal lesion. Sacrum intact. Arcuate lines preserved. No focal lumbar vertebral body lesion. Vertebral pedicles intact. Mild disc space during L4-L5. XR/XR lumbar spine 2-3V IMPRESSION: No fracture. Mild degenerative disc disease L4-L5.
--- NOTE | ~2023-11-16 | XR_ITS ---
Exams: 3 views coccyx and 2 views of the cervical spine HISTORY: Pain. FINDINGS: No coccygeal lesion. Sacrum intact. Arcuate lines preserved. No focal lumbar vertebral body lesion. Vertebral pedicles intact. Mild disc space during L4-L5. XR/XR sacrum coccyx min 2V IMPRESSION: No fracture. Mild degenerative disc disease L4-L5.
[2023-11-16 22:10] VITALS: BP 118/70; BP 148/68; PULSE 110; PULSE 97; RESP 18; TEMP 36.7; O2SAT 94; O2SAT 98; BMI 43.7
[2023-11-16 22:37] LABS: Appearance Urine Clear; Color Urine Yellow; Glucose Urine UA Negative (Negative); Leukocyte Esterase Urine Small (1+) (Negative); Nitrite Urine Negative (Negative); PH 6.5 (5.0-9.0); Specific Gravity - Urine <= 1.005 (1.005-1.025); UMIC TRIGGER UACC YES; Urine Blood Negative (Negative); Urine Ketones Negative (Negative); Urine Protein Negative (Neg-Trace)
[2023-11-16 22:45] LABS: Amphetamine Screen Urine Not Detected (Not Detect); Barbiturates, Urine Not Detected (Not Detect); Benzodiazepines Screen Urine POSITIVE (Not Detect); Cannabinoid Screen Urine Not Detected (Not Detect); Cocaine Screen Urine POSITIVE (Not Detect); Opiate Screen Urine Not Detected (Not Detect); Phencyclidine Screen Urine Not Detected (Not Detect)
--- NOTE | 2023-11-16 22:45 | ED_ITS ---
HPI - General Adult General Chief complaint: General Medical Stated complaint: lower back pain / psych distress Time Seen by Provider: 11/16/23 22:17 Source: patient and EMS Mode of arrival: EMS Limitations: no limitations History of Present Illness HPI narrative: 43-year-old female brought in by ambulance for evaluation of depression andlow back pain, patient admitted that she is homeless tonight has no place to go to, patient feeling depressed, hopeless, helpless with no SI or HI or hallucination. Patient is been having chronic low back pain that is been worse and constant for the last year patient had multiple evaluation for the low back pain, Patient sustained a fall earlier today causing more pain to the lower back, no weakness, no numbness, no urinary incontinence, no fever, no chills patient had multiple MRI in the past for assessment of chronic back pain which is consistent with degenerative changes. Patient admitted to using IV heroin and cocaine before coming to the hospital tonight. Related Data Home Medications Medication Instructions Recorded Confirmed methadone 10 mg/mL oral 145 mg PO DAILY 06/16/22 11/27/22 concentrate (Methadose) acetaminophen 325 mg tablet 650 mg PO Q6H PRN Pain 08/04/22 11/27/22 hydroxyzine HCl 50 mg tablet 1 tab PO BID 11/27/22 11/27/22 ketoconazole 2 % topical cream 1 applic topical BID 11/27/22 11/27/22 loratadine 10 mg tablet (Allergy 1 tab PO DAILY PRN Allergy Symptoms 11/27/22 11/27/22 Relief (loratadine)) nicotine (polacrilex) 4 mg gum 4 mg buccal Q2H PRN Nicotine 11/27/22 11/27/22 Cravings zolpidem 5 mg tablet 1 tab PO BEDTIME PRN Sleep 11/27/22 11/27/22 Previous Rx's Medication Instructions Recorded buspirone 10 mg tablet 20 mg (2 x 10 mg) PO TID 30 days 08/27/22 #180 tabs cyanocobalamin (vitamin B-12) 1,000 mcg PO DAILY 30 days #30 tabs 08/27/22 1,000 mcg tablet cyclobenzaprine 10 mg tablet 10 mg PO BID PRN Muscle Spasm 30 08/27/22 days #60 tabs duloxetine 60 mg capsule,delayed 60 mg PO DAILY 30 days #30 caps 08/27/22 release gabapentin 800 mg tablet 800 mg PO TID 7 days #21 tabs 08/27/22 propranolol 10 mg tablet 10 mg PO TID 30 days #90 tabs 08/27/22 topiramate 50 mg tablet 50 mg PO BID 30 days #60 tabs 08/27/22 Allergies Allergy/AdvReac Type Severity Reaction Status Date / Time quetiapine [From SEROQUEL] Allergy Severe THROAT Verified 08/19/22 11:07 SWELLING azithromycin [AZITHROMYCIN] Allergy Unknown Unknown Verified 08/19/22 11:07 erythromycin base Allergy Unknown RASH Verified 08/19/22 11:07 [ERYTHROMYCIN BASE] olanzapine [From ZYPREXA] Allergy Unknown PEDAL EDEMA Verified 08/19/22 11:07 sulfacetamide Allergy Unknown Unknown Verified 08/19/22 11:07 [From Sulfacet-R] sulfamethoxazole Allergy Unknown ITCHING Verified 08/19/22 11:07 [From BACTRIM] sulfur [From Sulfacet-R] Allergy Unknown Unknown Verified 08/19/22 11:07 trimethoprim [From BACTRIM] Allergy Unknown ITCHING Verified 08/19/22 11:07 risperidone [From RISPERDAL] AdvReac Unknown TWITCHING Verified 08/19/22 11:07 seafood AdvReac Unknown Vomiting Verified 08/19/22 11:07 shellfish derived AdvReac Unknown VOMITING Verified 08/19/22 11:07 [SHELLFISH DERIVED] trazodone AdvReac restless Verified 08/19/22 11:07 legs Review of Systems 2 Review of Systems: All other systems are reviewed and are negative Constitutional: Reports as per HPI and Reports no additional constitutional complaints Eyes: Reports as per HPI and Reports no additional eye complaints Reports system reviewed and no additional complaints, except as documented Cardiovascular: Reports as per HPI and Reports no additional cardiovascular complaints Respiratory: Reports as per HPI and Reports no additional respiratory complaints Gastrointestinal: Reports as per HPI and Reports no additional gastrointestinal complaints Genitourinary: Reports no additional female genitourinary complaints Musculoskeletal: Reports no additional musculoskeletal complaints Skin/Breast: Reports system reviewed and no additional complaints, except as docu Psychiatric: Reports no additional psychiatric complaints Endocrine: Reports no additional endocrine complaints Hematologic/Lymphatic: Reports no additional hematologic/lymphatic complaints Allergic/Immunologic: Reports no additional allergic/immunologic complaints Reports system reviewed and no additional complaints, except as documented and Reports Abnormal speech present [facility] Past Medical History Medical History Depression Opioid dependence Leg pain, bilateral Rhabdomyolysis Opioid use disorder, moderate, in sustained remission, dependence Bipolar 1 disorder Substance abuse Substance abuse Back pain Opioid dependence Social History Social History Household Members: Unknown / Unable to assess Housing: Unknown / Unable to assess Housing Other:: patient states she is homeless Unable to assess alcohol history related to: Unable to respond and Unknown Alcohol intake: former Comment: 1:1 sitter Patient Tobacco Use Status: Tobacco use Unknown Tobacco use type: Cigarette Cigarette Packs Per Day: 1 Cigarettes Per Day: 20.0 Years Smoked: 29 Smoked in Last 30 Days: No e-Cigarette/Vaping Use: Currently Using Second Hand Smoke Exposure: No Use of substances other than those prescribed or required for medical reasons: Yes Substance Use Type: Crack/Cocaine and Heroin Substance Use Frequency: Recent Binge Advance Directives: Yes Advance Directives on File: Yes Advance Directives Date on File: 12/28/20 Patient : No service: No Current occupational status: unemployed and disabled Sexual orientation: Don't Know Physical Exam ED Vital Signs: Vital Signs - 24 hr 11/16/23 22:10 11/17/23 00:16 Temperature 98.1 F 98.3 F Pulse Rate 97 90 Respiratory Rate 18 16 Blood Pressure 118/70 111/66 Pulse Oximetry 94 96 Oxygen Delivery Method Room Air Room Air BMI result Body Mass Index 43.7 Vital signs have been reviewed and appear to be correct. Blood pressure elevated. Heart rate normal. Respiratory rate normal. Temperature normal. Oxygen saturation normal. Appearance: Alert. Oriented X3. No acute distress. Head: Normal external exam. Normocephalic. Atraumatic. No Kaur signs noted. No raccoon eyes noted Eyes: PERRLA. EOMI. Conjunctiva and sclera normal. Eyelids normal. ENT: TM's Normal. Pharynx normal. Uvula midline. Moist mucous membranes. No trismus noted. No drooling noted. No muffled voice noted. Neck: Normal inspection. Neck supple. FROM. No adenopathy. Thyroid Normal. No meningeal signs. No neck mass noted. CVS: Normal heart rate and rhythm. Heart sound normal. No murmurs noted. Pulses normal throughout. Respiratory: No respiratory distress. Painless inspiration. Breath sounds normal. No wheezes/rales/rhonchi noted. Chest nontender. No accessory muscle usage noted or decreased air movement noted. Abdomen: Soft and nontender. Bowel sounds normal in all 4 quadrants. No distention noted. No organomegaly noted. No visible injury noted. Back: No CVA tenderness. Full range of motion noted. Skin: Skin warm and dry. Normal skin color. Normal skin turgor. No rashes/lesions/lacerations noted. Extremities: No lower extremity edema. Extremities exhibit normal range of motion. Extremities nontender. Neuro: Oriented X 3. Cranial nerve exam: II-XII are grossly intact No motor deficit. No sensory deficit. Reflexes normal. Able to ambulate on both toes and heels, perianal sensation is intact. Patient Orientation: Person, Place, Time and Situation, okay hygiene and grooming. Fair eye contact, attentive, no tics or tremors. Level of Consciousness: Awake, Appropriate and Alert Patient Behavior: Appropriate, Guarded, Cooperative and Anxious Mood Description: Constricted, Blunted and Apprehensive Affect Description: Constricted, Blunted and Apprehensive Patient Cognition Impaired: No Ability to Follow Directions: Excellent Speech Pattern: Clear, Appropriate and Spontaneous Speech, nonpressured, spontaneous with regular rate and rhythm, normal volume and prosody. No dysarthria. Memory Description: Intact, Immediate Intact and Short Term Intact Hallucinations: None Delusions: Not Present Thought Process: Intact Thought Content: positive for Intact, positive for Logical, denies Suicidal Ideation and denies Homicidal Ideation. Depressive Symptoms: Not present. Judgement and Insight: Limited but adequate. Course Reevaluation(s) Reevaluation #1: acute on chronic low back pain, patient is afebrile, no neurological deficit, intact perianal sensation, no reproducible tenderness on the back, normal WBCs, sed rate and C-reactive protein patient had multiple MRI of the back in the past To evaluate for same symptoms which make epidural occupying mass is unfavorable diagnosis. Otherwise patient wanted to be re-evaluated for depression way will ask for care team consultation. Start physician observation. Time: 01:22 Medical Decision Making Differential Diagnosis Differential Diagnoses: The differential diagnosis associated with the presentation includes ( Lumbar spine fracture, low back contusion, depression, SI, hallucination, substance abuse, electrolyte derangement, severe anemia, , UTI , epidural abscess.) Admission/Observation Consideration of admission/observation: Escalation of care including admission/observation considered Lab Data MDM Lab Attestation statement: I reviewed the patient's lab results. 11/16/23 23:40 11/16/23 23:40 Labs: Lab Results 11/16/23 11/16/23 11/16/23 Range/Units 22:30 23:39 23:40 WBC 3.9 L (4.8-10.8) X10*3/uL RBC 4.51 D (4.20-5.50) X10*6/uL Hgb 13.5 D (12.0-16.0) g/dl Hct 39.9 D (37.0-47.0) % MCV 88.5 (80.0-98.0) fL MCH 29.9 (27.0-33.0) pg MCHC 33.8 (31.0-35.0) g/dl RDW 12.4 (11.0-16.0) % Plt Count 85 L (160-400) X10*3/uL MPV 10.4 (9.4-12.3) fL Immature Gran % (Auto) 0.3 (0.0-0.4) % Neut % (Auto) 64.6 (45-73) % Lymph % (Auto) 26.2 (20-40) % [place] % (Auto) 7.8 (2-11) % Eos % (Auto) 0.8 (0-4) % Baso % (Auto) 0.3 (0-2) % Lymph # (Auto) 1.0 L (1.2-4.9) X10*3/uL [place] # (Auto) 0.3 (0.1-1.2) X10*3/uL Eos # (Auto) 0.0 (0.0-0.4) X10*3/uL Baso # (Auto) 0.0 (0.0-0.2) X10*3/uL Abs Immat Gran (auto) 0.01 (0.00-0.03) X10*3/uL Absolute Neuts (auto) 2.5 (2.0-8.3) x10*3/uL Absolute Nucleated RBC 0.000 (0.0-0.012) X10*3/uL Nucleated RBC % (auto) 0.0 (0.0-0.2) /100WBC ESR (0-20) MM/HR Sodium 136 (135-145) mmol/L Potassium 5.3 H (3.3-5.1) mmol/L Chloride 104 (96-108) mmol/L Carbon Dioxide 23 (22-29) mmol/L Anion Gap 14 (12-20) BUN 5 L (9-16) mg/dL Creatinine 0.75 (0.5-1.4) mg/dL Estim Creat Clear Calc 126.7 Estimated GFR > 60 Random Glucose 121 H (60-115) mg/dL Calcium 9.9 D (8.4-10.2) mg/dL Total Bilirubin 0.9 (0.0-1.0) mg/dL AST 78 H (5-31) U/L ALT 41 H (0-31) U/L Alkaline Phosphatase 111 (39-117) U/L C-Reactive Protein < 0.10 (< or = 0.50) mg/dL Total Protein 7.7 (6.5-8.0) g/dL Albumin 4.1 (3.5-5.0) g/dL Urine Color Yellow Urine Appearance Clear Urine pH 6.5 (5.0-9.0) Ur Specific Thomson <= 1.005 (1.005-1.025) Urine Protein Negative (Neg-Trace) mg/dL Urine Glucose (UA) Negative (Negative) mg/dL Urine Ketones Negative (Negative) mg/dL Urine Blood Negative (Negative) Urine Nitrite Negative (Negative) Ur Leukocyte Esterase Small (1+) H (Negative) Urine RBC 0-2 (0-2) /HPF Urine WBC 0-5 (0-5) /HPF Ur Squamous Epith Cells 0-2 (0-2) /HPF Urine Bacteria None Seen (None Seen) Hyaline Casts 0-2 (0-2) /LPF Urine Test (NEGATIVE) Urine Opiates Screen Not Detected (Not Detect) Urine Fentanyl Screen POSITIVE H (Not Detect) Ur Barbiturates Screen Not Detected (Not Detect) Ur Phencyclidine Scrn Not Detected (Not Detect) Ur Amphetamines Screen Not Detected (Not Detect) U Benzodiazepines Scrn POSITIVE H (Not Detect) Urine Cocaine Screen POSITIVE H (Not Detect) U Marijuana (THC) Screen Not Detected (Not Detect) 11/17/23 11/17/23 Range/Units 00:13 00:28 WBC (4.8-10.8) X10*3/uL RBC (4.20-5.50) X10*6/uL Hgb (12.0-16.0) g/dl Hct (37.0-47.0) % MCV (80.0-98.0) fL MCH (27.0-33.0) pg MCHC (31.0-35.0) g/dl RDW (11.0-16.0) % Plt Count (160-400) X10*3/uL MPV (9.4-12.3) fL Immature Gran % (Auto) (0.0-0.4) % Neut % (Auto) (45-73) % Lymph % (Auto) (20-40) % [place] % (Auto) (2-11) % Eos % (Auto) (0-4) % Baso % (Auto) (0-2) % Lymph # (Auto) (1.2-4.9) X10*3/uL [place] # (Auto) (0.1-1.2) X10*3/uL Eos # (Auto) (0.0-0.4) X10*3/uL Baso # (Auto) (0.0-0.2) X10*3/uL Abs Immat Gran (auto) (0.00-0.03) X10*3/uL Absolute Neuts (auto) (2.0-8.3) x10*3/uL Absolute Nucleated RBC (0.0-0.012) X10*3/uL Nucleated RBC % (auto) (0.0-0.2) /100WBC ESR 11 (0-20) MM/HR Sodium (135-145) mmol/L Potassium (3.3-5.1) mmol/L Chloride (96-108) mmol/L Carbon Dioxide (22-29) mmol/L Anion Gap (12-20) BUN (9-16) mg/dL Creatinine (0.5-1.4) mg/dL Estim Creat Clear Calc Estimated GFR Random Glucose (60-115) mg/dL Calcium (8.4-10.2) mg/dL Total Bilirubin (0.0-1.0) mg/dL AST (5-31) U/L ALT (0-31) U/L Alkaline Phosphatase (39-117) U/L C-Reactive Protein (< or = 0.50) mg/dL Total Protein (6.5-8.0) g/dL Albumin (3.5-5.0) g/dL Urine Color Urine Appearance Urine pH (5.0-9.0) Ur Specific Thomson (1.005-1.025) Urine Protein (Neg-Trace) mg/dL Urine Glucose (UA) (Negative) mg/dL Urine Ketones (Negative) mg/dL Urine Blood (Negative) Urine Nitrite (Negative) Ur Leukocyte Esterase (Negative) Urine RBC (0-2) /HPF Urine WBC (0-5) /HPF Ur Squamous Epith Cells (0-2) /HPF Urine Bacteria (None Seen) Hyaline Casts (0-2) /LPF Urine Test NEGATIVE (NEGATIVE) Urine Opiates Screen (Not Detect) Urine Fentanyl Screen (Not Detect) Ur Barbiturates Screen (Not Detect) Ur Phencyclidine Scrn (Not Detect) Ur Amphetamines Screen (Not Detect) U Benzodiazepines Scrn (Not Detect) Urine Cocaine Screen (Not Detect) U Marijuana (THC) Screen (Not Detect) Independent Interpretation I performed an independent interpretation of an: Plain X-Ray ( lumbar / sacral x-ray:No fracture. Mild degenerative disc disease L4-L5. ) Radiology Impression Discussion of test interpretation with radiology: I have reviewed the radiologist's reading. Discharge Plan Discharge Clinical Impression: Substance abuse, Depression, Acute exacerbation of chronic low back pain Patient Disposition: Still a Patient Prescriptions: No Action acetaminophen 325 mg tablet 650 mg PO Q6H PRN (Reason: Pain) propranolol 10 mg Tablet 10 mg PO TID 30 Days Qty: 90 0RF Protocol: Hold for SBP/HR < HOLD for SBP < : 90 HOLD for HR < : 60 duloxetine 60 mg Capsule,Delayed Release(Dr/Ec) 60 mg PO DAILY 30 Days Qty: 30 0RF cyclobenzaprine 10 mg tablet 10 mg PO BID PRN (Reason: Muscle Spasm) 30 Days Qty: 60 0RF cyanocobalamin (vitamin B-12) 1,000 mcg tablet 1,000 mcg PO DAILY 30 Days Qty: 30 0RF gabapentin 800 mg tablet 800 mg PO TID 7 Days Qty: 21 3RF buspirone 10 mg tablet 20 mg PO TID 30 Days Qty: 180 0RF topiramate 50 mg tablet 50 mg PO BID 30 Days Qty: 60 0RF hydroxyzine HCl 50 mg tablet 1 tab PO BID zolpidem 5 mg tablet 1 tab PO BEDTIME PRN (Reason: Sleep) ketoconazole 2 % cream 1 applic topical BID loratadine [Allergy Relief (loratadine)] 10 mg tablet 1 tab PO DAILY PRN (Reason: Allergy Symptoms) nicotine (polacrilex) 4 mg gum 4 mg buccal Q2H PRN (Reason: Nicotine Cravings) methadone [Methadose] 10 mg/mL concentrate 145 mg PO DAILY Rx Instructions: Partial Fill upon patient request.
[2023-11-16 22:46] LABS: Fentanyl, urine POSITIVE (Not Detect)
[2023-11-16 22:53] LABS: Bacteria Urine None Seen (None Seen); Hyaline Casts Urine 0-2 /LPF (0-2); RBC Urine 0-2 /HPF (0-2); Squamous Epithelial Cell Urine 0-2 /HPF (0-2); UACC Culture Trigger YES; WBC Urine 0-5 /HPF (0-5)
[2023-11-16 23:45] LABS: MANUAL DIFF FLAG NO
[2023-11-16 23:49] LABS: Basophils Percent Auto 0.3 % (0-2); Eosinophils Percent Auto 0.8 % (0-4); Hematocrit 39.9 % (37.0-47.0); Hemoglobin 13.5 g/dl (12.0-16.0); Imm Gran Abs Auto 0.01 X10*3/uL (0.00-0.03); Imm Gran Pct Auto 0.3 % (0.0-0.4); Lymphocytes Percent Auto 26.2 % (20-40); Mean Corpuscular HGB Conc 33.8 g/dl (31.0-35.0); Mean Corpuscular Hemoglobin 29.9 pg (27.0-33.0); Mean Corpuscular Volume 88.5 fL (80.0-98.0); Mean Platelet Volume 10.4 fL (9.4-12.3); Monocytes Absolute Auto 0.3 X10*3/uL (0.1-1.2); Monocytes Percent Auto 7.8 % (2-11); Neutrophils Absolute Auto 2.5 x10*3/uL (2.0-8.3); Neutrophils Percent Auto 64.6 % (45-73); Red Blood Count 4.51 X10*6/uL (4.20-5.50); Red Cell Distribution Width 12.4 % (11.0-16.0); White Blood Count 3.9 X10*3/uL (4.8-10.8)
[2023-11-16 23:50] LABS: Platelet Count 85 X10*3/uL (160-400)
[2023-11-17 00:04] LABS: C Reactive Protein < 0.10 mg/dL (< or = 0.50)
[2023-11-17 00:14] LABS: Alanine Aminotransferase 41 U/L (0-31); Albumin Level 4.1 g/dL (3.5-5.0); Alkaline Phosphatase 111 U/L (39-117); Anion Gap 14 (12-20); Aspartate Amino Transferase 78 U/L (5-31); Bilirubin Total 0.9 mg/dL (0.0-1.0); Blood Urea Nitrogen 5 mg/dL (9-16); Calcium 9.9 mg/dL (8.4-10.2); Carbon Dioxide 23 mmol/L (22-29); Chloride 104 mmol/L (96-108); Creatinine Clr Calc Pharmacy 126.7; Estimated Glomerular Filt Rate > 60; Glucose Random 121 mg/dL (60-115); Potassium 5.3 mmol/L (3.3-5.1); Sodium 136 mmol/L (135-145); Total Protein 7.7 g/dL (6.5-8.0)
[2023-11-17 00:16] VITALS: BP 111/66; PULSE 90; RESP 16; TEMP 36.8; O2SAT 96
[2023-11-17 00:29] LABS: UPreg QC Valid YES; Urine Pregnancy NEGATIVE (NEGATIVE)
[2023-11-17 01:11] LABS: Erythrocyte Sedimentation Rate 11 MM/HR (0-20)
[2023-11-17] MEDS: diphenhydrAMINE HCL 25 MG CAPSULE PO (01:38)
[2023-11-17] MEDS: Acetaminophen 325 MG TABLET 650 MG PO (01:38)
[2023-11-17] MEDS: LORazepam 1 MG TABLET PO (01:38)
--- NOTE | 2023-11-17 10:10 | PC.NURSE ---
assumed care of pt at 0700. pt a&o, calm, and cooperative. pt consumed breakfast, provided with gingerale. pt asking about her methadone. sts she had her last dose yesterday before arriving here. paperwork on last dose with belongings in [place]. security Yaima called and asked to look for it. pt currently resting quietly. rr even/unlabored. call lopez within reach. plan of care ongoing.
[2023-11-17 10:14] VITALS: BP 119/68; PULSE 74; RESP 18; TEMP 37.3; O2SAT 94
--- NOTE | 2023-11-17 10:24 | ED.GENADULT ---
HPI - General Adult General Chief complaint: General Medical Stated complaint: lower back pain / psych distress Time Seen by Provider: 11/16/23 22:17 Source: patient and EMS Mode of arrival: EMS Limitations: no limitations Related Data Home Medications Medication Instructions Recorded Confirmed methadone 10 mg/mL oral 145 mg PO DAILY 06/16/22 11/27/22 concentrate (Methadose) acetaminophen 325 mg tablet 650 mg PO Q6H PRN Pain 08/04/22 11/27/22 hydroxyzine HCl 50 mg tablet 1 tab PO BID 11/27/22 11/27/22 ketoconazole 2 % topical cream 1 applic topical BID 11/27/22 11/27/22 loratadine 10 mg tablet (Allergy 1 tab PO DAILY PRN Allergy Symptoms 11/27/22 11/27/22 Relief (loratadine)) nicotine (polacrilex) 4 mg gum 4 mg buccal Q2H PRN Nicotine 11/27/22 11/27/22 Cravings zolpidem 5 mg tablet 1 tab PO BEDTIME PRN Sleep 11/27/22 11/27/22 Previous Rx's Medication Instructions Recorded buspirone 10 mg tablet 20 mg (2 x 10 mg) PO TID 30 days 08/27/22 #180 tabs cyanocobalamin (vitamin B-12) 1,000 mcg PO DAILY 30 days #30 tabs 08/27/22 1,000 mcg tablet cyclobenzaprine 10 mg tablet 10 mg PO BID PRN Muscle Spasm 30 08/27/22 days #60 tabs duloxetine 60 mg capsule,delayed 60 mg PO DAILY 30 days #30 caps 08/27/22 release gabapentin 800 mg tablet 800 mg PO TID 7 days #21 tabs 08/27/22 propranolol 10 mg tablet 10 mg PO TID 30 days #90 tabs 08/27/22 topiramate 50 mg tablet 50 mg PO BID 30 days #60 tabs 08/27/22 Allergies Allergy/AdvReac Type Severity Reaction Status Date / Time quetiapine [From SEROQUEL] Allergy Severe THROAT Verified 08/19/22 11:07 SWELLING azithromycin [AZITHROMYCIN] Allergy Unknown Unknown Verified 08/19/22 11:07 erythromycin base Allergy Unknown RASH Verified 08/19/22 11:07 [ERYTHROMYCIN BASE] olanzapine [From ZYPREXA] Allergy Unknown PEDAL EDEMA Verified 08/19/22 11:07 sulfacetamide Allergy Unknown Unknown Verified 08/19/22 11:07 [From Sulfacet-R] sulfamethoxazole Allergy Unknown ITCHING Verified 08/19/22 11:07 [From BACTRIM] sulfur [From Sulfacet-R] Allergy Unknown Unknown Verified 08/19/22 11:07 trimethoprim [From BACTRIM] Allergy Unknown ITCHING Verified 08/19/22 11:07 risperidone [From RISPERDAL] AdvReac Unknown TWITCHING Verified 08/19/22 11:07 seafood AdvReac Unknown Vomiting Verified 08/19/22 11:07 shellfish derived AdvReac Unknown VOMITING Verified 08/19/22 11:07 [SHELLFISH DERIVED] trazodone AdvReac restless Verified 08/19/22 11:07 legs PMFSH Past Medical History Medical History Depression Opioid dependence Leg pain, bilateral Rhabdomyolysis Opioid use disorder, moderate, in sustained remission, dependence Bipolar 1 disorder Substance abuse Substance abuse Back pain Opioid dependence Social History Social History Household Members: Unknown / Unable to assess Housing: Unknown / Unable to assess Housing Other:: patient states she is homeless Unable to assess alcohol history related to: Unable to respond and Unknown Alcohol intake: former Comment: 1:1 sitter Patient Tobacco Use Status: Tobacco use Unknown Tobacco use type: Cigarette Cigarette Packs Per Day: 1 Cigarettes Per Day: 20.0 Years Smoked: 29 Smoked in Last 30 Days: No e-Cigarette/Vaping Use: Currently Using Second Hand Smoke Exposure: No Use of substances other than those prescribed or required for medical reasons: Yes Substance Use Type: Crack/Cocaine and Heroin Substance Use Frequency: Recent Binge Advance Directives: Yes Advance Directives on File: Yes Advance Directives Date on File: 12/28/20 Patient : No service: No Current occupational status: unemployed and disabled Sexual orientation: Don't Know Physical Exam ED Vital Signs: Vital Signs - 24 hr 11/16/23 22:10 11/17/23 00:16 11/17/23 10:14 Temperature 98.1 F 98.3 F 99.1 F Pulse Rate 97 90 74 Respiratory Rate 18 16 18 Blood Pressure 118/70 111/66 119/68 Pulse Oximetry 94 96 94 Oxygen Delivery Method Room Air Room Air Room Air BMI result Body Mass Index 43.7 Course Reevaluation(s) Reevaluation #1: Patient cleared by the care team. Recovery will not see patient until PT case management involved in patient's care. Physical therapy ordered. Medications Administered Discontinued Medications Generic Name Dose Route Start Last Admin Trade Name Freq PRN Reason Stop Dose Admin Acetaminophen 650 mg 11/17/23 01:18 11/17/23 01:38 Acetaminophen 325 Mg Tablet PO 11/17/23 01:19 650 mg ONCE ONE Administration Diphenhydramine HCl 25 mg 11/17/23 01:18 11/17/23 01:38 Diphenhydramine Hcl 25 Mg Capsule PO 11/17/23 01:19 25 mg ONCE ONE Administration Lorazepam 1 mg 11/17/23 01:18 11/17/23 01:38 Lorazepam 1 Mg Tablet PO 11/17/23 01:19 1 mg ONCE ONE Administration Medical Decision Making Lab Data 11/16/23 23:40 11/16/23 23:40 Labs: Lab Results 11/16/23 11/16/23 11/16/23 Range/Units 22:30 23:39 23:40 WBC 3.9 L (4.8-10.8) X10*3/uL RBC 4.51 D (4.20-5.50) X10*6/uL Hgb 13.5 D (12.0-16.0) g/dl Hct 39.9 D (37.0-47.0) % MCV 88.5 (80.0-98.0) fL MCH 29.9 (27.0-33.0) pg MCHC 33.8 (31.0-35.0) g/dl RDW 12.4 (11.0-16.0) % Plt Count 85 L (160-400) X10*3/uL MPV 10.4 (9.4-12.3) fL Immature Gran % (Auto) 0.3 (0.0-0.4) % Neut % (Auto) 64.6 (45-73) % Lymph % (Auto) 26.2 (20-40) % [place] % (Auto) 7.8 (2-11) % Eos % (Auto) 0.8 (0-4) % Baso % (Auto) 0.3 (0-2) % Lymph # (Auto) 1.0 L (1.2-4.9) X10*3/uL [place] # (Auto) 0.3 (0.1-1.2) X10*3/uL Eos # (Auto) 0.0 (0.0-0.4) X10*3/uL Baso # (Auto) 0.0 (0.0-0.2) X10*3/uL Abs Immat Gran (auto) 0.01 (0.00-0.03) X10*3/uL Absolute Neuts (auto) 2.5 (2.0-8.3) x10*3/uL Absolute Nucleated RBC 0.000 (0.0-0.012) X10*3/uL Nucleated RBC % (auto) 0.0 (0.0-0.2) /100WBC ESR (0-20) MM/HR Sodium 136 (135-145) mmol/L Potassium 5.3 H (3.3-5.1) mmol/L Chloride 104 (96-108) mmol/L Carbon Dioxide 23 (22-29) mmol/L Anion Gap 14 (12-20) BUN 5 L (9-16) mg/dL Creatinine 0.75 (0.5-1.4) mg/dL Estim Creat Clear Calc 126.7 Estimated GFR > 60 Random Glucose 121 H (60-115) mg/dL Calcium 9.9 D (8.4-10.2) mg/dL Total Bilirubin 0.9 (0.0-1.0) mg/dL AST 78 H (5-31) U/L ALT 41 H (0-31) U/L Alkaline Phosphatase 111 (39-117) U/L C-Reactive Protein < 0.10 (< or = 0.50) mg/dL Total Protein 7.7 (6.5-8.0) g/dL Albumin 4.1 (3.5-5.0) g/dL Urine Color Yellow Urine Appearance Clear Urine pH 6.5 (5.0-9.0) Ur Specific [place] <= 1.005 (1.005-1.025) Urine Protein Negative (Neg-Trace) mg/dL Urine Glucose (UA) Negative (Negative) mg/dL Urine Ketones Negative (Negative) mg/dL Urine Blood Negative (Negative) Urine Nitrite Negative (Negative) Ur Leukocyte Esterase Small (1+) H (Negative) Urine RBC 0-2 (0-2) /HPF Urine WBC 0-5 (0-5) /HPF Ur Squamous Epith Cells 0-2 (0-2) /HPF Urine Bacteria None Seen (None Seen) Hyaline Casts 0-2 (0-2) /LPF Urine Test (NEGATIVE) Urine Opiates Screen Not Detected (Not Detect) Urine Fentanyl Screen POSITIVE H (Not Detect) Ur Barbiturates Screen Not Detected (Not Detect) Ur Phencyclidine Scrn Not Detected (Not Detect) Ur Amphetamines Screen Not Detected (Not Detect) U Benzodiazepines Scrn POSITIVE H (Not Detect) Urine Cocaine Screen POSITIVE H (Not Detect) U Marijuana (THC) Screen Not Detected (Not Detect) 11/17/23 11/17/23 Range/Units 00:13 00:28 WBC (4.8-10.8) X10*3/uL RBC (4.20-5.50) X10*6/uL Hgb (12.0-16.0) g/dl Hct (37.0-47.0) % MCV (80.0-98.0) fL MCH (27.0-33.0) pg MCHC (31.0-35.0) g/dl RDW (11.0-16.0) % Plt Count (160-400) X10*3/uL MPV (9.4-12.3) fL Immature Gran % (Auto) (0.0-0.4) % Neut % (Auto) (45-73) % Lymph % (Auto) (20-40) % [place] % (Auto) (2-11) % Eos % (Auto) (0-4) % Baso % (Auto) (0-2) % Lymph # (Auto) (1.2-4.9) X10*3/uL [place] # (Auto) (0.1-1.2) X10*3/uL Eos # (Auto) (0.0-0.4) X10*3/uL Baso # (Auto) (0.0-0.2) X10*3/uL Abs Immat Gran (auto) (0.00-0.03) X10*3/uL Absolute Neuts (auto) (2.0-8.3) x10*3/uL Absolute Nucleated RBC (0.0-0.012) X10*3/uL Nucleated RBC % (auto) (0.0-0.2) /100WBC ESR 11 (0-20) MM/HR Sodium (135-145) mmol/L Potassium (3.3-5.1) mmol/L Chloride (96-108) mmol/L Carbon Dioxide (22-29) mmol/L Anion Gap (12-20) BUN (9-16) mg/dL Creatinine (0.5-1.4) mg/dL Estim Creat Clear Calc Estimated GFR Random Glucose (60-115) mg/dL Calcium (8.4-10.2) mg/dL Total Bilirubin (0.0-1.0) mg/dL AST (5-31) U/L ALT (0-31) U/L Alkaline Phosphatase (39-117) U/L C-Reactive Protein (< or = 0.50) mg/dL Total Protein (6.5-8.0) g/dL Albumin (3.5-5.0) g/dL Urine Color Urine Appearance Urine pH (5.0-9.0) Ur Specific [place] (1.005-1.025) Urine Protein (Neg-Trace) mg/dL Urine Glucose (UA) (Negative) mg/dL Urine Ketones (Negative) mg/dL Urine Blood (Negative) Urine Nitrite (Negative) Ur Leukocyte Esterase (Negative) Urine RBC (0-2) /HPF Urine WBC (0-5) /HPF Ur Squamous Epith Cells (0-2) /HPF Urine Bacteria (None Seen) Hyaline Casts (0-2) /LPF Urine Test NEGATIVE (NEGATIVE) Urine Opiates Screen (Not Detect) Urine Fentanyl Screen (Not Detect) Ur Barbiturates Screen (Not Detect) Ur Phencyclidine Scrn (Not Detect) Ur Amphetamines Screen (Not Detect) U Benzodiazepines Scrn (Not Detect) Urine Cocaine Screen (Not Detect) U Marijuana (THC) Screen (Not Detect) Discharge Plan Discharge Clinical Impression: Substance abuse, Depression, Acute exacerbation of chronic low back pain Patient Disposition: Still a Patient Prescriptions: No Action acetaminophen 325 mg tablet 650 mg PO Q6H PRN (Reason: Pain) propranolol 10 mg Tablet 10 mg PO TID 30 Days Qty: 90 0RF Protocol: Hold for SBP/HR < HOLD for SBP < : 90 HOLD for HR < : 60 duloxetine 60 mg Capsule,Delayed Release(Dr/Ec) 60 mg PO DAILY 30 Days Qty: 30 0RF cyclobenzaprine 10 mg tablet 10 mg PO BID PRN (Reason: Muscle Spasm) 30 Days Qty: 60 0RF cyanocobalamin (vitamin B-12) 1,000 mcg tablet 1,000 mcg PO DAILY 30 Days Qty: 30 0RF gabapentin 800 mg tablet 800 mg PO TID 7 Days Qty: 21 3RF buspirone 10 mg tablet 20 mg PO TID 30 Days Qty: 180 0RF topiramate 50 mg tablet 50 mg PO BID 30 Days Qty: 60 0RF hydroxyzine HCl 50 mg tablet 1 tab PO BID zolpidem 5 mg tablet 1 tab PO BEDTIME PRN (Reason: Sleep) ketoconazole 2 % cream 1 applic topical BID loratadine [Allergy Relief (loratadine)] 10 mg tablet 1 tab PO DAILY PRN (Reason: Allergy Symptoms) nicotine (polacrilex) 4 mg gum 4 mg buccal Q2H PRN (Reason: Nicotine Cravings) methadone [Methadose] 10 mg/mL concentrate 145 mg PO DAILY Rx Instructions: Partial Fill upon patient request.
--- NOTE | 2023-11-17 12:04 | MHC.RECOVRN ---
Addendum entered by Miguelina Solano 11/17/23 14:56: Spoke with pt regarding inability to place in EMMA program. Not eligble for CSS due to recurrence and not eligible for ATS for short duration of recurrence. Pt then states I don't feel safe. I'm going to kill myself. RN notified. Original Note: Met with pt in Overflow 7 after pt cleared by CARE Team and PT. Pt reports having been at [facility] 11/02-11/16. Pt reports since discharge she has used a couple bags and a couple cokes. Pt reports prior to this last use was nearly one year ago. Pt reports she was sent from [facility] to [facility] around November 2022 and stayed there for 8 months prior to being sent from one hospital to another to another. Pt is currently interested in CSS level of care. Spoke with Mey at [facility], pt is not a candidate for CSS due to substance use.
[2023-11-17 13:57] VITALS: BP 130/68; PULSE 76; RESP 18; TEMP 36.8; O2SAT 95
--- NOTE | 2023-11-17 14:07 | PHA.MEDREC ---
Pharmacy Consult ? Medication Reconciliation Pharmacy has reviewed the medication reconciliation completed by nursing
--- NOTE | 2023-11-17 14:07 | HE.PHANOTE ---
Methadone Verification Pharmacy has received the verification from nursing. Patient last received methadone 150 mg divided into two dose - methadone 80 mg @ 0900 and methadone 70 mg @ 1300 on 11/16/23. Confirmed with Sloane at the [facility]. Kinjal Marin, HermanD
--- NOTE | 2023-11-17 15:09 | PC.NURSE ---
med rec complete, awaiting med orders, patient resting comfortably in bed at this time.
--- NOTE | 2023-11-17 15:38 | ED_ITS ---
HPI - General Adult General Chief complaint: General Medical Stated complaint: lower back pain / psych distress Time Seen by Provider: 11/16/23 22:17 Source: patient and EMS Mode of arrival: EMS Limitations: no limitations Related Data Home Medications Medication Instructions Recorded Confirmed methadone 10 mg/mL oral 80 mg PO DAILY 06/16/22 11/17/23 concentrate (Methadose) aspirin 81 mg chewable tablet 81 mg PO DAILY 11/17/23 11/17/23 duloxetine 60 mg capsule,delayed 60 mg PO BID 11/17/23 11/17/23 release gabapentin 400 mg capsule 400 mg PO TID@0900,1700,2100 11/17/23 11/17/23 lactulose 10 gram/15 mL oral syrup 20 g PO TID@0900,1300,1700 11/17/23 11/17/23 melatonin 3 mg tablet 3 mg PO BEDTIME 11/17/23 11/17/23 methadone 10 mg/mL oral 70 mg PO DAILY@1300 11/17/23 11/17/23 concentrate (Methadose) polyethylene glycol 3350 17 gram 17 g PO DAILY 11/17/23 11/17/23 oral powder packet spironolactone 50 mg tablet 50 mg PO DAILY 11/17/23 11/17/23 Allergies Allergy/AdvReac Type Severity Reaction Status Date / Time quetiapine [From SEROQUEL] Allergy Severe THROAT Verified 08/19/22 11:07 SWELLING azithromycin [AZITHROMYCIN] Allergy Unknown Unknown Verified 08/19/22 11:07 erythromycin base Allergy Unknown RASH Verified 08/19/22 11:07 [ERYTHROMYCIN BASE] olanzapine [From ZYPREXA] Allergy Unknown PEDAL EDEMA Verified 08/19/22 11:07 sulfacetamide Allergy Unknown Unknown Verified 08/19/22 11:07 [From Sulfacet-R] sulfamethoxazole Allergy Unknown ITCHING Verified 08/19/22 11:07 [From BACTRIM] sulfur [From Sulfacet-R] Allergy Unknown Unknown Verified 08/19/22 11:07 trimethoprim [From BACTRIM] Allergy Unknown ITCHING Verified 08/19/22 11:07 risperidone [From RISPERDAL] AdvReac Unknown TWITCHING Verified 08/19/22 11:07 seafood AdvReac Unknown Vomiting Verified 08/19/22 11:07 shellfish derived AdvReac Unknown VOMITING Verified 08/19/22 11:07 [SHELLFISH DERIVED] trazodone AdvReac restless Verified 08/19/22 11:07 legs PMFSH Past Medical History Medical History Depression Opioid dependence Leg pain, bilateral Rhabdomyolysis Opioid use disorder, moderate, in sustained remission, dependence Bipolar 1 disorder Substance abuse Substance abuse Back pain Opioid dependence Social History Social History Household Members: Unknown / Unable to assess Housing: Unknown / Unable to assess Housing Other:: patient states she is homeless Unable to assess alcohol history related to: Unable to respond and Unknown Alcohol intake: former Comment: 1:1 sitter Patient Tobacco Use Status: Tobacco use Unknown Tobacco use type: Cigarette Cigarette Packs Per Day: 1 Cigarettes Per Day: 20.0 Years Smoked: 29 Smoked in Last 30 Days: No e-Cigarette/Vaping Use: Currently Using Second Hand Smoke Exposure: No Use of substances other than those prescribed or required for medical reasons: Yes Substance Use Type: Crack/Cocaine and Heroin Substance Use Frequency: Recent Binge Advance Directives: Yes Advance Directives on File: Yes Advance Directives Date on File: 12/28/20 Healthcare Proxy: No Guardian: No Patient : No service: No Current occupational status: unemployed and disabled Sexual orientation: Don't Know Physical Exam ED Vital Signs: Vital Signs - 24 hr 11/16/23 22:10 11/17/23 00:16 11/17/23 10:14 Temperature 98.1 F 98.3 F 99.1 F Pulse Rate 97 90 74 Respiratory Rate 18 16 18 Blood Pressure 118/70 111/66 119/68 Pulse Oximetry 94 96 94 Oxygen Delivery Method Room Air Room Air Room Air 11/17/23 13:57 Temperature 98.2 F Pulse Rate 76 Respiratory Rate 18 Blood Pressure 130/68 Pulse Oximetry 95 Oxygen Delivery Method Room Air BMI result Body Mass Index 43.7 Course Reevaluation(s) Reevaluation #1: Recovery recommends methadone 80 will order at this time. Time: 15:39 Medications Administered Discontinued Medications Generic Name Dose Route Start Last Admin Trade Name Freq PRN Reason Stop Dose Admin Acetaminophen 650 mg 11/17/23 01:18 11/17/23 01:38 Acetaminophen 325 Mg Tablet PO 11/17/23 01:19 650 mg ONCE ONE Administration Diphenhydramine HCl 25 mg 11/17/23 01:18 11/17/23 01:38 Diphenhydramine Hcl 25 Mg Capsule PO 11/17/23 01:19 25 mg ONCE ONE Administration Lorazepam 1 mg 11/17/23 01:18 11/17/23 01:38 Lorazepam 1 Mg Tablet PO 11/17/23 01:19 1 mg ONCE ONE Administration Medical Decision Making Lab Data 11/16/23 23:40 11/16/23 23:40 Labs: Lab Results 11/16/23 11/16/23 11/16/23 Range/Units 22:30 23:39 23:40 WBC 3.9 L (4.8-10.8) X10*3/uL RBC 4.51 D (4.20-5.50) X10*6/uL Hgb 13.5 D (12.0-16.0) g/dl Hct 39.9 D (37.0-47.0) % MCV 88.5 (80.0-98.0) fL MCH 29.9 (27.0-33.0) pg MCHC 33.8 (31.0-35.0) g/dl RDW 12.4 (11.0-16.0) % Plt Count 85 L (160-400) X10*3/uL MPV 10.4 (9.4-12.3) fL Immature Gran % (Auto) 0.3 (0.0-0.4) % Neut % (Auto) 64.6 (45-73) % Lymph % (Auto) 26.2 (20-40) % [place] % (Auto) 7.8 (2-11) % Eos % (Auto) 0.8 (0-4) % Baso % (Auto) 0.3 (0-2) % Lymph # (Auto) 1.0 L (1.2-4.9) X10*3/uL [place] # (Auto) 0.3 (0.1-1.2) X10*3/uL Eos # (Auto) 0.0 (0.0-0.4) X10*3/uL Baso # (Auto) 0.0 (0.0-0.2) X10*3/uL Abs Immat Gran (auto) 0.01 (0.00-0.03) X10*3/uL Absolute Neuts (auto) 2.5 (2.0-8.3) x10*3/uL Absolute Nucleated RBC 0.000 (0.0-0.012) X10*3/uL Nucleated RBC % (auto) 0.0 (0.0-0.2) /100WBC ESR (0-20) MM/HR Sodium 136 (135-145) mmol/L Potassium 5.3 H (3.3-5.1) mmol/L Chloride 104 (96-108) mmol/L Carbon Dioxide 23 (22-29) mmol/L Anion Gap 14 (12-20) BUN 5 L (9-16) mg/dL Creatinine 0.75 (0.5-1.4) mg/dL Estim Creat Clear Calc 126.7 Estimated GFR > 60 Random Glucose 121 H (60-115) mg/dL Calcium 9.9 D (8.4-10.2) mg/dL Total Bilirubin 0.9 (0.0-1.0) mg/dL AST 78 H (5-31) U/L ALT 41 H (0-31) U/L Alkaline Phosphatase 111 (39-117) U/L C-Reactive Protein < 0.10 (< or = 0.50) mg/dL Total Protein 7.7 (6.5-8.0) g/dL Albumin 4.1 (3.5-5.0) g/dL Urine Color Yellow Urine Appearance Clear Urine pH 6.5 (5.0-9.0) Ur Specific [place] <= 1.005 (1.005-1.025) Urine Protein Negative (Neg-Trace) mg/dL Urine Glucose (UA) Negative (Negative) mg/dL Urine Ketones Negative (Negative) mg/dL Urine Blood Negative (Negative) Urine Nitrite Negative (Negative) Ur Leukocyte Esterase Small (1+) H (Negative) Urine RBC 0-2 (0-2) /HPF Urine WBC 0-5 (0-5) /HPF Ur Squamous Epith Cells 0-2 (0-2) /HPF Urine Bacteria None Seen (None Seen) Hyaline Casts 0-2 (0-2) /LPF Urine Test (NEGATIVE) Urine Opiates Screen Not Detected (Not Detect) Urine Fentanyl Screen POSITIVE H (Not Detect) Ur Barbiturates Screen Not Detected (Not Detect) Ur Phencyclidine Scrn Not Detected (Not Detect) Ur Amphetamines Screen Not Detected (Not Detect) U Benzodiazepines Scrn POSITIVE H (Not Detect) Urine Cocaine Screen POSITIVE H (Not Detect) U Marijuana (THC) Screen Not Detected (Not Detect) 11/17/23 11/17/23 Range/Units 00:13 00:28 WBC (4.8-10.8) X10*3/uL RBC (4.20-5.50) X10*6/uL Hgb (12.0-16.0) g/dl Hct (37.0-47.0) % MCV (80.0-98.0) fL MCH (27.0-33.0) pg MCHC (31.0-35.0) g/dl RDW (11.0-16.0) % Plt Count (160-400) X10*3/uL MPV (9.4-12.3) fL Immature Gran % (Auto) (0.0-0.4) % Neut % (Auto) (45-73) % Lymph % (Auto) (20-40) % [place] % (Auto) (2-11) % Eos % (Auto) (0-4) % Baso % (Auto) (0-2) % Lymph # (Auto) (1.2-4.9) X10*3/uL [place] # (Auto) (0.1-1.2) X10*3/uL Eos # (Auto) (0.0-0.4) X10*3/uL Baso # (Auto) (0.0-0.2) X10*3/uL Abs Immat Gran (auto) (0.00-0.03) X10*3/uL Absolute Neuts (auto) (2.0-8.3) x10*3/uL Absolute Nucleated RBC (0.0-0.012) X10*3/uL Nucleated RBC % (auto) (0.0-0.2) /100WBC ESR 11 (0-20) MM/HR Sodium (135-145) mmol/L Potassium (3.3-5.1) mmol/L Chloride (96-108) mmol/L Carbon Dioxide (22-29) mmol/L Anion Gap (12-20) BUN (9-16) mg/dL Creatinine (0.5-1.4) mg/dL Estim Creat Clear Calc Estimated GFR Random Glucose (60-115) mg/dL Calcium (8.4-10.2) mg/dL Total Bilirubin (0.0-1.0) mg/dL AST (5-31) U/L ALT (0-31) U/L Alkaline Phosphatase (39-117) U/L C-Reactive Protein (< or = 0.50) mg/dL Total Protein (6.5-8.0) g/dL Albumin (3.5-5.0) g/dL Urine Color Urine Appearance Urine pH (5.0-9.0) Ur Specific [place] (1.005-1.025) Urine Protein (Neg-Trace) mg/dL Urine Glucose (UA) (Negative) mg/dL Urine Ketones (Negative) mg/dL Urine Blood (Negative) Urine Nitrite (Negative) Ur Leukocyte Esterase (Negative) Urine RBC (0-2) /HPF Urine WBC (0-5) /HPF Ur Squamous Epith Cells (0-2) /HPF Urine Bacteria (None Seen) Hyaline Casts (0-2) /LPF Urine Test NEGATIVE (NEGATIVE) Urine Opiates Screen (Not Detect) Urine Fentanyl Screen (Not Detect) Ur Barbiturates Screen (Not Detect) Ur Phencyclidine Scrn (Not Detect) Ur Amphetamines Screen (Not Detect) U Benzodiazepines Scrn (Not Detect) Urine Cocaine Screen (Not Detect) U Marijuana (THC) Screen (Not Detect) Discharge Plan Discharge Clinical Impression: Substance abuse, Depression, Acute exacerbation of chronic low back pain Patient Disposition: Still a Patient Prescriptions: No Action methadone [Methadose] 10 mg/mL concentrate 80 mg PO DAILY Patient Comments: Split dose 150mg total, 80mg @ 0900, 70 mg @ 1300 duloxetine 60 mg capsule,delayed release(DR/EC) 60 mg PO BID aspirin 81 mg Tablet,Chewable 81 mg PO DAILY lactulose 10 gram/15 mL Syrup 20 g PO TID@0900,1300,1700 polyethylene glycol 3350 17 gram Powder In Packet 17 g PO DAILY spironolactone 50 mg Tablet 50 mg PO DAILY gabapentin 400 mg Capsule 400 mg PO TID@0900,1700,2100 melatonin 3 mg Tablet 3 mg PO BEDTIME methadone [Methadose] 10 mg/mL Concentrate 70 mg PO DAILY@1300
[2023-11-17] MEDS: Lactulose 20 GM/30 ML SOLUTION PO (16:06)
[2023-11-17] MEDS: methADONE HCl 20 MG/2 ML ORAL.CONC 80 MG PO (16:06)
[2023-11-17] MEDS: Gabapentin 400 MG CAPSULE PO ×2 (16:06→21:18)
--- NOTE | 2023-11-17 18:17 | MHC.CM.ED ---
Addendum entered by Daniela Dave 11/17/23 19:02: CARE team will re-evaluate patient. Provider aware. CM will follow as needed. Original Note: Received CM consult. Pt cleared by CARE team 7 hours ago, by PT 6 hours ago and recovery at 12 noon. At 3pm patient made suicidal statement to investment recovery technician after being told that she could not return to CSS or ATS d/t recent substance use and short interval of recurrence. Pt was at [facility] from 11/02-11/16. Pt has positive drug screen. Pt is homeless. CM met with patient. Pt states she has no where to go and she feels the last hospital she was at discharged her too early. Pt tells CM that she will kill herself if she is discharged. States she will hang herself. States she has a rope and she will go to her mothers, in the dc, and hang herself. CM spoke with Care Team and reported statements. ED provider also aware of statements. CM is waiting to speak with CARE team again. CM is not comfortable giving patient skilled nursing list/[address] [place] [address] pamphlet at this time
--- NOTE | 2023-11-17 19:28 | PC.NURSE ---
Case management came to speak with pt but pt was sleeping. case management to come back later when pt awake. plan of care ongoing.
[2023-11-17 21:18] VITALS: BP 148/71; PULSE 76; RESP 16; TEMP 36.4; O2SAT 97
[2023-11-17] MEDS: Melatonin 3 MG TABLET PO (21:18)
[2023-11-17] MEDS: DULoxetine HCl 60 MG CAPSULE.DR PO (21:18)
--- NOTE | 2023-11-17 21:23 | PC.NURSE ---
Pt ca&ox4, no signs of distress. Pt requested and given drink and food by tech. Pt medicated per nov. Pt reporting missing a 2nd night time dose of methadone. This RN explained she received a dose already today and another dose is not due until 0900 tomorrow morning. Plan of care ongoing.
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
--- NOTE | 2023-11-17 22:31 | MHC.CM.ED ---
CM reviewed CARE note. CARE/psych will follow up in the morning. CM will continue to follow for discharge.
--- NOTE | 2023-11-17 22:41 | MHC.CARE ---
Due to pt's threat of hanging herself to CM if she should be d/c'd, under an abundance of caution, it would be prudent to move the pt from over flow to the POD. There are multiple ligature risks in the over flow bed that the pt could potentially injure herself with. web site project manager will be notified by SANDRA of this potential risk factor. SANDRA will also inform ALISON Adame of the need for a psych consult in the morning for this pt.
--- NOTE | 2023-11-17 22:47 | MHC.CM.ED ---
SANDRA spoke with Bismark from CARE team. He requests patient be seen by psych in the morning for possible IPLOC. Deep ROSAS aware and ordered psych consult. Bismark is also concerned about patient remaining in Overflow, with the ligature risk. SANDRA spoke with Lorena DIANE. Pt will be moved to the POD.
[2023-11-17 23:26] LABS: Ethanol < 10 mg/dL
[2023-11-18 06:26] VITALS: BP 150/72; PULSE 82; RESP 17; TEMP 36.6; O2SAT 98
--- NOTE | 2023-11-18 06:46 | PC.NURSE ---
Patient got transferred from ED overflow for endorsing suicidal ideation, care team assessed the patient, disposition pending psych consult, medication compliant, no behavior issues in the POD, VSS, will continue to monitor.
[2023-11-18 07:46] VITALS: BP 126/67; PULSE 75; RESP 18; TEMP 36.6; O2SAT 96
--- NOTE | 2023-11-18 07:46 | PC.NURSE ---
PT IS SLEEPING EVEN/UNLABORED. WILL CONITUE TO MONITOR.
--- NOTE | 2023-11-18 08:09 | PC.NURSE ---
PT IS BEING SEEN BY CARE TEAM PT AWARE OF PLAN OF CARE.
[2023-11-18] MEDS: DULoxetine HCl 60 MG CAPSULE.DR PO ×2 (08:20→20:43)
[2023-11-18] MEDS: Aspirin 81 MG TAB.CHEW PO (08:20)
[2023-11-18] MEDS: polyethylene glycoL 3350 17 GM POWD.PACK PO (08:20)
[2023-11-18] MEDS: methADONE HCl 20 MG/2 ML ORAL.CONC 80 MG PO (08:20)
[2023-11-18] MEDS: Spironolactone 25 MG TABLET 50 MG PO (08:20)
[2023-11-18] MEDS: Lactulose 20 GM/30 ML SOLUTION PO (08:21)
[2023-11-18] MEDS: Gabapentin 400 MG CAPSULE PO ×3 (08:21→20:43)
--- NOTE | 2023-11-18 09:41 | PC.NURSE ---
PT TRANSFER TO ED BED 6H. PT AWARE OF PLAN OF CARE.
[2023-11-18] MEDS: diazePAM 5 MG TABLET PO ×2 (10:02→17:50)
--- NOTE | 2023-11-18 10:11 | PC.NURSE ---
Assumed care of pt from RN, pt resting on stretcher with no complaints. Medicated with PO valium per request. Awaiting inpatient bed assignment.
[2023-11-18 12:21] LABS: COVID-19 Test Negative (Negative); IDNOW Serial# 152EDE1D
[2023-11-18] MEDS: Magnesium Hydrox/Alum Hydrox 30 ML ORAL.SUSP PO (13:22)
[2023-11-18] MEDS: Acetaminophen 325 MG TABLET 650 MG PO (13:22)
[2023-11-18] MEDS: methADONE HCl 20 MG/2 ML ORAL.CONC 70 MG PO (13:22)
[2023-11-18 14:16] VITALS: BP 142/72; PULSE 78; RESP 15; TEMP 36.2; O2SAT 95
[2023-11-18 14:49] VITALS: BMI 42.8
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
[2023-11-18] MEDS: Nicotine Polacrilex 2 MG GUM 4 MG BUCCAL ×3 (17:45→22:30)
[2023-11-18 19:50] VITALS: BP 136/85; PULSE 80; RESP 18; TEMP 36.1; O2SAT 96
[2023-11-18] MEDS: Melatonin 3 MG TABLET PO (20:44)
[2023-11-18] MEDS: hydrOXYzine HCL 25 MG TABLET PO (20:48)
[2023-11-19] MEDS: diazePAM 5 MG TABLET PO ×3 (06:24→17:41)
[2023-11-19] MEDS: Nicotine Polacrilex 2 MG GUM 4 MG BUCCAL ×6 (06:25→23:15)
[2023-11-19 07:25] VITALS: BP 144/61; PULSE 85; RESP 16; TEMP 36.4; O2SAT 96
[2023-11-19] MEDS: Gabapentin 400 MG CAPSULE PO ×3 (08:19→21:16)
[2023-11-19] MEDS: DULoxetine HCl 60 MG CAPSULE.DR PO ×2 (08:19→21:16)
[2023-11-19] MEDS: Spironolactone 25 MG TABLET 50 MG PO (08:20)
[2023-11-19] MEDS: Aspirin 81 MG TAB.CHEW PO (08:20)
[2023-11-19] MEDS: polyethylene glycoL 3350 17 GM POWD.PACK PO (08:21)
[2023-11-19] MEDS: methADONE HCl 20 MG/2 ML ORAL.CONC 80 MG PO (08:25)
[2023-11-19] MEDS: Nicotine 14 MG PATCH.TD24 TRANSDERMA (08:28)
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
[2023-11-19] MEDS: Lactulose 20 GM/30 ML SOLUTION PO ×2 (10:33→17:06)
[2023-11-19] MEDS: hydrOXYzine HCL 25 MG TABLET PO ×2 (10:34→21:16)
[2023-11-19] MEDS: methADONE HCl 20 MG/2 ML ORAL.CONC 70 MG PO (13:18)
[2023-11-19 14:49] LABS: Alanine Aminotransferase 51 U/L (0-31); Alkaline Phosphatase 120 U/L (39-117); Anion Gap 12 (12-20); Aspartate Amino Transferase 101 U/L (5-31); Bilirubin Total 0.5 mg/dL (0.0-1.0); Blood Urea Nitrogen 5 mg/dL (9-16); Calcium 9.2 mg/dL (8.4-10.2); Carbon Dioxide 25 mmol/L (22-29); Chloride 103 mmol/L (96-108); Cholesterol 79 mg/dL (<200); Creatinine Clr Calc Pharmacy 118.8; Estimated Glomerular Filt Rate > 60; Glucose Fasting 105 mg/dL (60-99); HDL Cholesterol 33 mg/dL (>40); LDL Cholesterol Calculated 37 mg/dL (<100); Potassium 4.5 mmol/L (3.3-5.1); Sodium 135 mmol/L (135-145); Total Protein 7.5 g/dL (6.5-8.0); Triglycerides 49 mg/dL (<150)
[2023-11-19] MEDS: Melatonin 3 MG TABLET PO (21:16)
[2023-11-19] MEDS: Acetaminophen 325 MG TABLET 650 MG PO (21:17)
[2023-11-19] MEDS: Throat Lozenge, Medicated LOZENGE 1 LOZENGE MUCOUS MEM (22:44)
[2023-11-20] MEDS: diazePAM 5 MG TABLET PO ×3 (01:49→17:08)
[2023-11-20] MEDS: Nicotine Polacrilex 2 MG GUM 4 MG BUCCAL ×6 (02:12→23:07)
[2023-11-20 08:05] VITALS: BP 112/66; PULSE 71; RESP 16; O2SAT 96
[2023-11-20] MEDS: polyethylene glycoL 3350 17 GM POWD.PACK PO (08:45)
[2023-11-20] MEDS: methADONE HCl 20 MG/2 ML ORAL.CONC 80 MG PO (08:45)
[2023-11-20] MEDS: Spironolactone 25 MG TABLET 50 MG PO (08:46)
[2023-11-20] MEDS: Gabapentin 400 MG CAPSULE PO ×3 (08:46→20:47)
[2023-11-20] MEDS: Nicotine 14 MG PATCH.TD24 TRANSDERMA (08:46)
[2023-11-20] MEDS: Aspirin 81 MG TAB.CHEW PO (08:46)
[2023-11-20] MEDS: DULoxetine HCl 60 MG CAPSULE.DR PO ×2 (08:46→20:47)
--- NOTE | 2023-11-20 08:58 | HO.PSYCHPN ---
Subjective Subjective Date of Service: 11/20/23 Reason For Visit: crisis Subjective Notes: Conditional Voluntary Interim History: Reviewed with Dr. Jimenez. Patient reports feeling similar to yesterday. Pt stated, I'm depressed. I'm trying to process everything that has happened in my life. I miss my daughters; I feel like whenever I get strong enough to fight for them something knocks me down . Pt reports suicidal ideation with no plan. denies HI/VH/AH. Hospitalist consult ordered re:labs. Medication Compliance: Yes Side effects from medications: No Attending Groups: Yes Review of Systems Constitutional: Reports as per HPI Eyes: Reports as per HPI Reports as per HPI Cardiovascular: Reports as per HPI Respiratory: Reports as per HPI Gastrointestinal: Reports as per HPI Musculoskeletal: Reports as per HPI Skin/Breast: Reports as per HPI Reports as per HPI Psychiatric: Reports as per HPI Endocrine: Reports as per HPI Hematologic/Lymphatic: Reports as per HPI Allergic/Immunologic: Reports as per HPI Mental Status Exam Mental Status Exam Narrative: Pt is alert and oriented; behavior is cooperative and calm; dressed in casual attire; mood is described as depressed ; eye contact appropriate; Speech is normal rate, volume and prosody and not pressured; thought process is organized; Thought content is on tx; denies HI/VH/AH. Pt reports suicidal ideation with no plan. Diagnostics Vital Signs (24Hr): BMI result Body Mass Index 42.8 Labs 11/20/23 11:09 11/20/23 11:09 Labs: Laboratory Results - last 48 hr 11/18/23 11/19/23 12:02 14:29 Sodium 135 Potassium 4.5 Chloride 103 Carbon Dioxide 25 Anion Gap 12 BUN 5 L Creatinine 0.79 Estim Creat Clear Calc 118.8 Estimated GFR > 60 Fasting Glucose 105 H Calcium 9.2 D Total Bilirubin 0.5 AST 101 H ALT 51 H Alkaline Phosphatase 120 H Total Protein 7.5 Albumin 4.0 Triglycerides 49 Cholesterol 79 LDL Cholesterol, Calc 37 HDL Cholesterol 33 L COVID-19 (ZACK) Negative COVID-19 Clin Com See Note Imaging Radiology Impressions: ITS Impressions Lumbar Spine X-Ray 11/16/23 22:53 IMPRESSION: No fracture. Mild degenerative disc disease L4-L5. Sacrum and Coccyx X-Ray 11/16/23 22:53 IMPRESSION: No fracture. Mild degenerative disc disease L4-L5. Medications Medications Current Medications Acetaminophen (Acetaminophen 325 Mg Tablet) 650 mg PO Q6H PRN PRN Reason: Headache/Pain Mild Scale (1-3) Last Admin: 11/19/23 21:17 Dose: 650 mg Al Hydroxide/Mg Hydroxide (Magnesium Hydrox/Alum Hydrox 30 Ml Oral.Susp) 30 ml PO Q6H PRN PRN Reason: Heartburn/Nausea Last Admin: 11/18/23 13:22 Dose: 30 ml Aspirin (Aspirin 81 Mg Tab.Chew) 81 mg PO DAILY [facility] Last Admin: 11/20/23 08:46 Dose: 81 mg Benzocaine (Throat Lozenge, Medicated Lozenge) 1 lozenge MUCOUS MEM Q2H PRN PRN Reason: Sore Throat Last Admin: 11/19/23 22:44 Dose: 1 lozenge Diazepam (Diazepam 5 Mg Tablet) 5 mg PO TID PRN PRN Reason: Anxiety Last Admin: 11/20/23 01:49 Dose: 5 mg Duloxetine HCl (Duloxetine Hcl 60 Mg Capsule.Dr) 60 mg PO BID [facility] Last Admin: 11/20/23 08:46 Dose: 60 mg Gabapentin (Gabapentin 400 Mg Capsule) 400 mg PO TID@0900,1700,2100 [facility] Last Admin: 11/20/23 08:46 Dose: 400 mg Hydroxyzine HCl (Hydroxyzine Hcl 25 Mg Tablet) 25 mg PO Q6H PRN PRN Reason: Anxiety Last Admin: 11/19/23 21:16 Dose: 25 mg Lactulose (Lactulose 20 Gm/30 Ml Solution) 20 gm PO TID@0900,1300,1700 [facility] Last Admin: 11/19/23 17:06 Dose: 20 gm Magnesium Hydroxide (Milk Of Magnesia 30 Ml Oral.Susp) 30 ml PO DAILY PRN PRN Reason: Constipation Melatonin (Melatonin 3 Mg Tablet) 3 mg PO BEDTIME [facility] Last Admin: 11/19/23 21:16 Dose: 3 mg Methadone HCl (Methadone Hcl 20 Mg/2 Ml Oral.Conc) 80 mg PO DAILY [facility] Last Admin: 11/20/23 08:45 Dose: 80 mg Methadone HCl (Methadone Hcl 20 Mg/2 Ml Oral.Conc) 70 mg PO DAILY@1300 [facility] Last Admin: 11/19/23 13:18 Dose: 70 mg Nicotine (Nicotine 14 Mg Patch.Td24) 14 mg TRANSDERMA DAILY [facility] Last Admin: 11/20/23 08:46 Dose: 14 mg Nicotine Polacrilex (Nicotine Polacrilex 2 Mg Gum) 4 mg BUCCAL Q2H PRN PRN Reason: Nicotine Cravings Last Admin: 11/20/23 02:12 Dose: 4 mg Polyethylene Glycol (Polyethylene Glycol 3350 17 Gm Powd.Pack) 17 gm PO DAILY [facility] Last Admin: 11/20/23 08:45 Dose: 17 gm Spironolactone (Spironolactone 25 Mg Tablet) 50 mg PO DAILY [facility]; Protocol Last Admin: 11/20/23 08:46 Dose: 50 mg Allergies Allergies Allergy/AdvReac Type Severity Reaction Status Date / Time quetiapine [From SEROQUEL] Allergy Severe THROAT Verified 08/19/22 11:07 SWELLING azithromycin [AZITHROMYCIN] Allergy Unknown Unknown Verified 08/19/22 11:07 erythromycin base Allergy Unknown RASH Verified 08/19/22 11:07 [ERYTHROMYCIN BASE] olanzapine [From ZYPREXA] Allergy Unknown PEDAL EDEMA Verified 08/19/22 11:07 sulfacetamide Allergy Unknown Unknown Verified 08/19/22 11:07 [From Sulfacet-R] sulfamethoxazole Allergy Unknown ITCHING Verified 08/19/22 11:07 [From BACTRIM] sulfur [From Sulfacet-R] Allergy Unknown Unknown Verified 08/19/22 11:07 trimethoprim [From BACTRIM] Allergy Unknown ITCHING Verified 08/19/22 11:07 risperidone [From RISPERDAL] AdvReac Unknown TWITCHING Verified 08/19/22 11:07 seafood AdvReac Unknown Vomiting Verified 08/19/22 11:07 shellfish derived AdvReac Unknown VOMITING Verified 08/19/22 11:07 [SHELLFISH DERIVED] trazodone AdvReac restless Verified 08/19/22 11:07 legs Assessment & Plan Assessment & Plan (1) Bipolar disorder: Status: Acute Code(s): F31.9 - Bipolar disorder, unspecified (2) Chronic post-traumatic stress disorder (PTSD): Status: Acute Code(s): F43.12 - Post-traumatic stress disorder, chronic (3) Cocaine abuse: Status: Acute Code(s): F14.10 - Cocaine abuse, uncomplicated (4) Opioid use disorder, severe, dependence: Status: Acute Code(s): F11.20 - Opioid dependence, uncomplicated Plan Patient is a 43 year old female with hx of Bipolar d/o, PTSD, opioid use d/o, and cocaine use d/o who self presented to ER secondary to suicidal ideation d/t to increased depression and hopelessness. Plan: CV 15 minute safety checks continue home medications obtain collateral discharge planning possible section 35? 11/19: Patient reports feeling similar to yesterday. Pt stated, I'm depressed. I'm trying to process everything that has happened in my life. I miss my daughters; I feel like whenever I get strong enough to fight for them something knocks me down . Pt reports suicidal ideation with no plan. denies HI/VH/AH. Hospitalist consult ordered re:labs. Patient educated on: diagnosis, medication risk/benefits, therapeutic strategies and medical condition Informed Consent: understands Reason for continued inpatient stay Substantial Risk for: harm to self and med/psych decompensation Time Spent With Patient Time: Total time managing care of this patient today _20___ minutes.
[2023-11-20] MEDS: hydrOXYzine HCL 25 MG TABLET PO ×2 (10:04→17:08)
[2023-11-20] MEDS: Lactulose 20 GM/30 ML SOLUTION PO (11:05)
[2023-11-20 11:24] LABS: Basophils Percent Auto 0.4 % (0-2); Eosinophils Absolute Auto 0.1 X10*3/uL (0.0-0.4); Eosinophils Percent Auto 3.1 % (0-4); Hematocrit 42.2 % (37.0-47.0); Hemoglobin 14.2 g/dl (12.0-16.0); Lymphocytes Percent Auto 43.4 % (20-40); MANUAL DIFF FLAG SCAN; Mean Corpuscular HGB Conc 33.6 g/dl (31.0-35.0); Mean Corpuscular Hemoglobin 30.3 pg (27.0-33.0); Mean Platelet Volume 9.9 fL (9.4-12.3); Monocytes Absolute Auto 0.2 X10*3/uL (0.1-1.2); Monocytes Percent Auto 10.2 % (2-11); Neutrophils Percent Auto 42.9 % (45-73); Red Blood Count 4.69 X10*6/uL (4.20-5.50); SCAN SMEAR FLAG 1
[2023-11-20 11:29] LABS: Platelet Count 91 X10*3/uL (160-400); White Blood Count 2.3 X10*3/uL (4.8-10.8)
[2023-11-20 11:31] LABS: Ammonia 69 umol/L (13-55)
[2023-11-20 11:46] LABS: Blood Urea Nitrogen 4 mg/dL (9-16)
[2023-11-20 11:54] LABS: Alanine Aminotransferase 52 U/L (0-31); Albumin Level 4.1 g/dL (3.5-5.0); Alkaline Phosphatase 121 U/L (39-117); Anion Gap 13 (12-20); Aspartate Amino Transferase 103 U/L (5-31); Bilirubin Direct 0.2 mg/dL (0.0-0.5); Bilirubin Total 0.6 mg/dL (0.0-1.0); Blood Urea Nitrogen 5 mg/dL (9-16); Calcium 9.7 mg/dL (8.4-10.2); Carbon Dioxide 23 mmol/L (22-29); Chloride 104 mmol/L (96-108); Creatinine Clr Calc Pharmacy 118.8; Estimated Glomerular Filt Rate > 60; Glucose Random 211 mg/dL (60-115); Potassium 5.3 mmol/L (3.3-5.1); SLIDE REVIEW VERIFIED; Sodium 135 mmol/L (135-145); Total Protein 7.9 g/dL (6.5-8.0)
[2023-11-20] MEDS: methADONE HCl 20 MG/2 ML ORAL.CONC 70 MG PO (12:46)
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
[2023-11-20 16:28] LABS: Procalcitonin 0.11 ng/mL
[2023-11-20 18:00] VITALS: BP 126/70; PULSE 78; RESP 16; O2SAT 95
[2023-11-20] MEDS: Melatonin 3 MG TABLET PO (20:48)
[2023-11-21] MEDS: diazePAM 5 MG TABLET PO ×3 (03:59→20:34)
[2023-11-21] MEDS: Nicotine Polacrilex 2 MG GUM 4 MG BUCCAL ×6 (03:59→20:34)
[2023-11-21] MEDS: hydrOXYzine HCL 25 MG TABLET PO ×2 (04:00→13:56)
[2023-11-21] MEDS: Sodium Zirconium Cyclosilicate 10 GM POWD.PACK PO (06:57)
[2023-11-21 08:07] VITALS: BP 123/68; PULSE 80; RESP 16; TEMP 36; O2SAT 96
[2023-11-21] MEDS: Aspirin 81 MG TAB.CHEW PO (09:14)
[2023-11-21] MEDS: Gabapentin 400 MG CAPSULE PO ×3 (09:15→20:33)
[2023-11-21] MEDS: methADONE HCl 20 MG/2 ML ORAL.CONC 80 MG PO (09:15)
[2023-11-21] MEDS: DULoxetine HCl 60 MG CAPSULE.DR PO ×2 (09:15→20:33)
[2023-11-21] MEDS: Nicotine 14 MG PATCH.TD24 TRANSDERMA (09:16)
[2023-11-21] MEDS: Fluticasone Propionate Nasal 16 GM SPRAY 1 SPRAY NOSTRIL-B (09:18)
[2023-11-21] MEDS: Acetaminophen 325 MG TABLET 650 MG PO ×2 (09:25→20:34)
[2023-11-21 10:16] LABS: Influenza A PCR NEGATIVE (Negative); Influenza B PCR NEGATIVE (Negative); Resp Syncy Virus RNA Qual PCR NEGATIVE (Negative); SARS COV2 PCR INHOUSE NEGATIVE (Negative)
[2023-11-21] MEDS: methADONE HCl 20 MG/2 ML ORAL.CONC 70 MG PO (12:57)
[2023-11-21] MEDS: guaiFENesin DM 200/20/10 ML 10 ML SYRUP PO ×2 (12:57→20:34)
--- NOTE | 2023-11-21 17:57 | HO.PSYCHPN ---
Subjective Subjective Date of Service: 11/21/23 Reason For Visit: crisis Interim History: somnolent, rousable but with difficulty. c/o depressed mood and productive cough, WANG, sore throat. flu/COVID/RSV test was negative. Tx plan reviewed, no changes made to outpt regimen. per staff, flu NEG. declined 1:1 mtg with staff. mostly in bed yesterday. pleasant, cooperative, social eves. Mental Status Exam Mental Status Exam Narrative: Pt is alert and oriented; behavior is cooperative and calm; dressed in casual attire; mood is described as depressed ; eye contact appropriate; Speech is normal rate, volume and prosody and not pressured; thought process is organized; Thought content is on tx. no SI/HI/AVH. Diagnostics Vital Signs (24Hr): Vital Signs - 24 hr 11/20/23 18:00 11/21/23 08:07 Temperature 96.8 F Pulse Rate 78 80 Respiratory Rate 16 16 Blood Pressure 126/70 123/68 Pulse Oximetry 95 96 Oxygen Delivery Method Room Air Room Air BMI result Body Mass Index 42.8 Labs 11/20/23 11:09 11/20/23 11:09 Labs: Laboratory Results - last 48 hr 11/20/23 11/20/23 11/21/23 11:09 11:09 09:15 WBC 2.3 L RBC 4.69 Hgb 14.2 Hct 42.2 MCV 90.0 MCH 30.3 MCHC 33.6 RDW 12.0 Plt Count 91 L MPV 9.9 Immature Gran % (Auto) 0.0 Neut % (Auto) 42.9 L Lymph % (Auto) 43.4 H [place] % (Auto) 10.2 Eos % (Auto) 3.1 Baso % (Auto) 0.4 Lymph # (Auto) 1.0 L [place] # (Auto) 0.2 Eos # (Auto) 0.1 Baso # (Auto) 0.0 Abs Immat Gran (auto) 0.00 Absolute Neuts (auto) 1.0 L Absolute Nucleated RBC 0.000 Nucleated RBC % (auto) 0.0 Smear Tech's Comments VERIFIED Sodium 135 Potassium 5.3 H Chloride 104 Carbon Dioxide 23 Anion Gap 13 BUN 5 L 4 L Creatinine 0.79 Estim Creat Clear Calc 118.8 Estimated GFR > 60 Random Glucose 211 H Calcium 9.7 Total Bilirubin 0.6 Direct Bilirubin 0.2 AST 103 H ALT 52 H Alkaline Phosphatase 121 H Ammonia 69 H Total Protein 7.9 Albumin 4.1 Procalcitonin 0.11 Influenza Type A (PCR) NEGATIVE Influenza Type B (PCR) NEGATIVE RSV RNA Qual (PCR) NEGATIVE SARS-CoV-2 RNA (RT-PCR) NEGATIVE Imaging Radiology Impressions: ITS Impressions Lumbar Spine X-Ray 11/16/23 22:53 IMPRESSION: No fracture. Mild degenerative disc disease L4-L5. Sacrum and Coccyx X-Ray 11/16/23 22:53 IMPRESSION: No fracture. Mild degenerative disc disease L4-L5. Chest X-Ray 11/20/23 17:00 IMPRESSION: Unremarkable chest examination. Medications Medications Current Medications Acetaminophen (Acetaminophen 325 Mg Tablet) 650 mg PO Q6H PRN PRN Reason: Headache/Pain Mild Scale (1-3) Last Admin: 11/21/23 09:25 Dose: 650 mg Al Hydroxide/Mg Hydroxide (Magnesium Hydrox/Alum Hydrox 30 Ml Oral.Susp) 30 ml PO Q6H PRN PRN Reason: Heartburn/Nausea Last Admin: 11/18/23 13:22 Dose: 30 ml Aspirin (Aspirin 81 Mg Tab.Chew) 81 mg PO DAILY [facility] Last Admin: 11/21/23 09:14 Dose: 81 mg Benzocaine (Throat Lozenge, Medicated Lozenge) 1 lozenge MUCOUS MEM Q2H PRN PRN Reason: Sore Throat Last Admin: 11/19/23 22:44 Dose: 1 lozenge Benzocaine (Throat Lozenge, Medicated Lozenge) 1 lozenge MUCOUS MEM Q2H PRN PRN Reason: Sore Throat Diazepam (Diazepam 5 Mg Tablet) 5 mg PO TID PRN PRN Reason: Anxiety Last Admin: 11/21/23 12:57 Dose: 5 mg Duloxetine HCl (Duloxetine Hcl 60 Mg Capsule.Dr) 60 mg PO BID [facility] Last Admin: 11/21/23 09:15 Dose: 60 mg Fluticasone Propionate (Fluticasone Propionate Nasal 16 Gm [place]) 1 spray NOSTRIL-B DAILY [facility] Last Admin: 11/21/23 09:18 Dose: 1 spray Gabapentin (Gabapentin 400 Mg Capsule) 400 mg PO TID@0900,1700,2100 [facility] Last Admin: 11/21/23 16:03 Dose: 400 mg Guaifenesin/Dextromethorphan (Guaifenesin Dm 200/20/10 Ml 10 Ml Syrup) 10 ml PO Q4H PRN PRN Reason: Cough Last Admin: 11/21/23 12:57 Dose: 10 ml Hydroxyzine HCl (Hydroxyzine Hcl 25 Mg Tablet) 25 mg PO Q6H PRN PRN Reason: Anxiety Last Admin: 11/21/23 13:56 Dose: 25 mg Lactulose (Lactulose 20 Gm/30 Ml Solution) 30 gm PO DAILY [facility] Last Admin: 11/21/23 09:19 Dose: Not Given Magnesium Hydroxide (Milk Of Magnesia 30 Ml Oral.Susp) 30 ml PO DAILY PRN PRN Reason: Constipation Melatonin (Melatonin 3 Mg Tablet) 3 mg PO BEDTIME [facility] Last Admin: 11/20/23 20:48 Dose: 3 mg Methadone HCl (Methadone Hcl 20 Mg/2 Ml Oral.Conc) 80 mg PO DAILY [facility] Last Admin: 11/21/23 09:15 Dose: 80 mg Methadone HCl (Methadone Hcl 20 Mg/2 Ml Oral.Conc) 70 mg PO DAILY@1300 [facility] Last Admin: 11/21/23 12:57 Dose: 70 mg Nicotine (Nicotine 14 Mg Patch.Td24) 14 mg TRANSDERMA DAILY [facility] Last Admin: 11/21/23 09:16 Dose: 14 mg Nicotine Polacrilex (Nicotine Polacrilex 2 Mg Gum) 4 mg BUCCAL Q2H PRN PRN Reason: Nicotine Cravings Last Admin: 11/21/23 15:27 Dose: 4 mg Polyethylene Glycol (Polyethylene Glycol 3350 17 Gm Powd.Pack) 17 gm PO DAILY [facility] Last Admin: 11/21/23 09:19 Dose: Not Given Spironolactone (Spironolactone 25 Mg Tablet) 50 mg PO DAILY [facility]; Protocol Last Admin: 11/20/23 08:46 Dose: 50 mg Allergies Allergies Allergy/AdvReac Type Severity Reaction Status Date / Time quetiapine [From SEROQUEL] Allergy Severe THROAT Verified 08/19/22 11:07 SWELLING azithromycin [AZITHROMYCIN] Allergy Unknown Unknown Verified 08/19/22 11:07 erythromycin base Allergy Unknown RASH Verified 08/19/22 11:07 [ERYTHROMYCIN BASE] olanzapine [From ZYPREXA] Allergy Unknown PEDAL EDEMA Verified 08/19/22 11:07 sulfacetamide Allergy Unknown Unknown Verified 08/19/22 11:07 [From Sulfacet-R] sulfamethoxazole Allergy Unknown ITCHING Verified 08/19/22 11:07 [From BACTRIM] sulfur [From Sulfacet-R] Allergy Unknown Unknown Verified 08/19/22 11:07 trimethoprim [From BACTRIM] Allergy Unknown ITCHING Verified 08/19/22 11:07 risperidone [From RISPERDAL] AdvReac Unknown TWITCHING Verified 08/19/22 11:07 seafood AdvReac Unknown Vomiting Verified 08/19/22 11:07 shellfish derived AdvReac Unknown VOMITING Verified 08/19/22 11:07 [SHELLFISH DERIVED] trazodone AdvReac restless Verified 08/19/22 11:07 legs Assessment & Plan Assessment & Plan (1) Transaminitis: Status: Acute Code(s): R74.01 - Elevation of levels of liver transaminase levels Assessment and Plan: patient is a 43-year-old female with a past history significant for polysubstance use disorder, IVDU, hepatitis-C, and depression who is seen for evaluation of productive cough and abnormal LFTs. Transaminitis AST 103, ALT 52, alk-phos 121 Likely secondary to hepatitis-C Patient asymptomatic: Patient denies abdominal pain LFTs have been much higher in the past, including AST of 807, ALT of 176, and alk phos of 138 Patient reports having failed initial outpatient treatment No treatment or further workup indicated at this time Should follow-up outpatient for repeat treatment Hyperammonemia Ammonia slightly elevated at 69 Patient asymptomatic: AO x4, not encephalopathic Likely secondary to hepatitis-C, noncompliant with lactulose Patient has been refusing lactulose at least once a day Will switch patient to lactulose 30 g daily Will recheck ammonia in 2-3 days' time Monitor mentation Hyperkalemia Potassium mildly elevated 0.3 Will give one dose of Lokelma Hold spironolactone Recheck CMP in 2-3 days' time Productive cough Pt experiencing productive cough x2 months Was concerned about pneumonia CXR negative for consolidation Procalcitonin WNL at 0.11 Bacterial pneumonia/infection unlikely No indication for treating with antibiotics at this time Guaifenesin p.r.n. for cough Thank you for allowing us to participate in the care of this patient. Will continue to follow pending repeat blood work. (2) Hyperammonemia: Status: Acute Code(s): E72.20 - Disorder of urea cycle metabolism, unspecified Plan Patient is a 43 year old female with hx of Bipolar d/o, PTSD, opioid use d/o, and cocaine use d/o who self presented to ER secondary to suicidal ideation d/t to increased depression and hopelessness. Plan: CV 15 minute safety checks continue home medications obtain collateral discharge planning possible section 35? 11/19: Patient reports feeling similar to yesterday. Pt stated, I'm depressed. I'm trying to process everything that has happened in my life. I miss my daughters; I feel like whenever I get strong enough to fight for them something knocks me down . Pt reports suicidal ideation with no plan. denies HI/VH/AH. Hospitalist consult ordered re:labs. 11/20: hospitalist findings and plan reviewed. continue current mental health regimen. continues depressed. Reason for continued inpatient stay Substantial Risk for: inability to function and rapid decompensation Time Spent With Patient Time: Total time managing care of this patient today ____ minutes.
[2023-11-21 20:25] VITALS: BP 126/71; PULSE 85; RESP 14; TEMP 36.2; O2SAT 100
[2023-11-21] MEDS: Melatonin 3 MG TABLET PO (20:33)
[2023-11-22] MEDS: guaiFENesin DM 200/20/10 ML 10 ML SYRUP PO (00:54)
[2023-11-22] MEDS: Nicotine Polacrilex 2 MG GUM 4 MG BUCCAL ×4 (01:00→21:24)
[2023-11-22 07:22] LABS: Ammonia 46 umol/L (13-55)
[2023-11-22 07:36] LABS: Alanine Aminotransferase 52 U/L (0-31); Albumin Level 3.7 g/dL (3.5-5.0); Alkaline Phosphatase 113 U/L (39-117); Aspartate Amino Transferase 77 U/L (5-31); Bilirubin Total 0.6 mg/dL (0.0-1.0); Blood Urea Nitrogen 5 mg/dL (9-16); Calcium 9.6 mg/dL (8.4-10.2); Creatinine Clr Calc Pharmacy 132.2; Estimated Glomerular Filt Rate > 60; Glucose Random 139 mg/dL (60-115); Total Protein 6.9 g/dL (6.5-8.0)
[2023-11-22 07:51] LABS: Anion Gap 12 (12-20); Carbon Dioxide 29 mmol/L (22-29); Chloride 102 mmol/L (96-108); Potassium 3.9 mmol/L (3.3-5.1); Sodium 139 mmol/L (135-145)
[2023-11-22 10:05] VITALS: BP 107/55; PULSE 82; RESP 18; TEMP 36; O2SAT 100
[2023-11-22] MEDS: Nicotine 14 MG PATCH.TD24 TRANSDERMA (10:08)
[2023-11-22] MEDS: Aspirin 81 MG TAB.CHEW PO (10:09)
[2023-11-22] MEDS: Gabapentin 400 MG CAPSULE PO ×3 (10:09→21:22)
[2023-11-22] MEDS: DULoxetine HCl 60 MG CAPSULE.DR PO ×2 (10:09→21:23)
[2023-11-22] MEDS: methADONE HCl 20 MG/2 ML ORAL.CONC 80 MG PO (10:10)
[2023-11-22] MEDS: Fluticasone Propionate Nasal 16 GM SPRAY 1 SPRAY NOSTRIL-B (10:11)
[2023-11-22] MEDS: diazePAM 5 MG TABLET PO ×3 (10:17→21:46)
--- NOTE | 2023-11-22 11:16 | PM.EVENT ---
Event Note Date of Service: 11/22/23 Event Note: Ammonia levels and K normalized. Would recommend resuming spironolactone given pt history. K reported as 5.3 was a hemolyzed sample and was therefore not a true hyperkalemia. Resume spironolactone. Would also recommend continuing lactulose to prevent hepatic encephalopathy. However, pt continues refusing medication. Time Spent With Patient Time: Total time managing care of this patient today ____ minutes.
[2023-11-22] MEDS: methADONE HCl 20 MG/2 ML ORAL.CONC 70 MG PO (13:17)
--- NOTE | 2023-11-22 16:38 | P.PNPSI_ITS ---
Subjective Subjective Date of Service: 11/22/23 Reason For Visit: crisis Interim History: pt supine sleeping in bed, more easily roused than yesterday. c/o abd pain. states she had too much BM yesterday and so refused laxatives last night. no complaints or requests. per staff, dep/anx 8. flat, withdrawn. attending groups. taking meds. feeling sick. visible. coughing. refused laxatives. Mental Status Exam Mental Status Exam Narrative: Pt is alert and oriented; behavior is cooperative and calm; dressed in casual attire; mood is described as depressed ; eye contact appropriate; Speech is normal rate, volume and prosody and not pressured; thought process is organized; Thought content is on tx. no SI/HI/AVH. Diagnostics Vital Signs (24Hr): Vital Signs - 24 hr 11/21/23 20:25 11/22/23 10:05 Temperature 97.1 F 96.8 F Pulse Rate 85 82 Respiratory Rate 14 18 Blood Pressure 126/71 107/55 L Pulse Oximetry 100 100 Oxygen Delivery Method Room Air Room Air BMI result Body Mass Index 42.8 Labs 11/20/23 11:09 11/22/23 06:59 Labs: Laboratory Results - last 48 hr 11/21/23 11/22/23 09:15 06:59 Sodium 139 Potassium 3.9 D Chloride 102 Carbon Dioxide 29 Anion Gap 12 BUN 5 L Creatinine 0.71 Estim Creat Clear Calc 132.2 Estimated GFR > 60 Random Glucose 139 H Calcium 9.6 Total Bilirubin 0.6 AST 77 H ALT 52 H Alkaline Phosphatase 113 Ammonia 46 Total Protein 6.9 Albumin 3.7 Influenza Type A (PCR) NEGATIVE Influenza Type B (PCR) NEGATIVE RSV RNA Qual (PCR) NEGATIVE SARS-CoV-2 RNA (RT-PCR) NEGATIVE Imaging Radiology Impressions: ITS Impressions Lumbar Spine X-Ray 11/16/23 22:53 IMPRESSION: No fracture. Mild degenerative disc disease L4-L5. Sacrum and Coccyx X-Ray 11/16/23 22:53 IMPRESSION: No fracture. Mild degenerative disc disease L4-L5. Chest X-Ray 11/20/23 17:00 IMPRESSION: Unremarkable chest examination. Medications Medications Current Medications Acetaminophen (Acetaminophen 325 Mg Tablet) 650 mg PO Q6H PRN PRN Reason: Headache/Pain Mild Scale (1-3) Last Admin: 11/21/23 20:34 Dose: 650 mg Al Hydroxide/Mg Hydroxide (Magnesium Hydrox/Alum Hydrox 30 Ml Oral.Susp) 30 ml PO Q6H PRN PRN Reason: Heartburn/Nausea Last Admin: 11/18/23 13:22 Dose: 30 ml Aspirin (Aspirin 81 Mg Tab.Chew) 81 mg PO DAILY [facility] Last Admin: 11/22/23 10:09 Dose: 81 mg Benzocaine (Throat Lozenge, Medicated Lozenge) 1 lozenge MUCOUS MEM Q2H PRN PRN Reason: Sore Throat Last Admin: 11/19/23 22:44 Dose: 1 lozenge Benzocaine (Throat Lozenge, Medicated Lozenge) 1 lozenge MUCOUS MEM Q2H PRN PRN Reason: Sore Throat Diazepam (Diazepam 5 Mg Tablet) 5 mg PO TID PRN PRN Reason: Anxiety Last Admin: 11/22/23 10:17 Dose: 5 mg Duloxetine HCl (Duloxetine Hcl 60 Mg Capsule.Dr) 60 mg PO BID [facility] Last Admin: 11/22/23 10:09 Dose: 60 mg Fluticasone Propionate (Fluticasone Propionate Nasal 16 Gm [place]) 1 spray NOSTRIL-B DAILY [facility] Last Admin: 11/22/23 10:11 Dose: 1 spray Gabapentin (Gabapentin 400 Mg Capsule) 400 mg PO TID@0900,1700,2100 [facility] Last Admin: 11/22/23 10:09 Dose: 400 mg Guaifenesin/Dextromethorphan (Guaifenesin Dm 200/20/10 Ml 10 Ml Syrup) 10 ml PO Q4H PRN PRN Reason: Cough Last Admin: 11/22/23 00:54 Dose: 10 ml Hydroxyzine HCl (Hydroxyzine Hcl 25 Mg Tablet) 25 mg PO Q6H PRN PRN Reason: Anxiety Last Admin: 11/21/23 13:56 Dose: 25 mg Lactulose (Lactulose 20 Gm/30 Ml Solution) 30 gm PO DAILY [facility] Last Admin: 11/22/23 10:12 Dose: Not Given Magnesium Hydroxide (Milk Of Magnesia 30 Ml Oral.Susp) 30 ml PO DAILY PRN PRN Reason: Constipation Melatonin (Melatonin 3 Mg Tablet) 3 mg PO BEDTIME [facility] Last Admin: 11/21/23 20:33 Dose: 3 mg Methadone HCl (Methadone Hcl 20 Mg/2 Ml Oral.Conc) 80 mg PO DAILY [facility] Last Admin: 11/22/23 10:10 Dose: 80 mg Methadone HCl (Methadone Hcl 20 Mg/2 Ml Oral.Conc) 70 mg PO DAILY@1300 [facility] Last Admin: 11/22/23 13:17 Dose: 70 mg Nicotine (Nicotine 14 Mg Patch.Td24) 14 mg TRANSDERMA DAILY [facility] Last Admin: 11/22/23 10:08 Dose: 14 mg Nicotine Polacrilex (Nicotine Polacrilex 2 Mg Gum) 4 mg BUCCAL Q2H PRN PRN Reason: Nicotine Cravings Last Admin: 11/22/23 10:17 Dose: 4 mg Polyethylene Glycol (Polyethylene Glycol 3350 17 Gm Powd.Pack) 17 gm PO DAILY [facility] Last Admin: 11/22/23 10:12 Dose: Not Given Spironolactone (Spironolactone 25 Mg Tablet) 50 mg PO DAILY [facility]; Protocol Last Admin: 11/20/23 08:46 Dose: 50 mg Allergies Allergies Allergy/AdvReac Type Severity Reaction Status Date / Time quetiapine [From SEROQUEL] Allergy Severe THROAT Verified 08/19/22 11:07 SWELLING azithromycin [AZITHROMYCIN] Allergy Unknown Unknown Verified 08/19/22 11:07 erythromycin base Allergy Unknown RASH Verified 08/19/22 11:07 [ERYTHROMYCIN BASE] olanzapine [From ZYPREXA] Allergy Unknown PEDAL EDEMA Verified 08/19/22 11:07 sulfacetamide Allergy Unknown Unknown Verified 08/19/22 11:07 [From Sulfacet-R] sulfamethoxazole Allergy Unknown ITCHING Verified 08/19/22 11:07 [From BACTRIM] sulfur [From Sulfacet-R] Allergy Unknown Unknown Verified 08/19/22 11:07 trimethoprim [From BACTRIM] Allergy Unknown ITCHING Verified 08/19/22 11:07 risperidone [From RISPERDAL] AdvReac Unknown TWITCHING Verified 08/19/22 11:07 seafood AdvReac Unknown Vomiting Verified 08/19/22 11:07 shellfish derived AdvReac Unknown VOMITING Verified 08/19/22 11:07 [SHELLFISH DERIVED] trazodone AdvReac restless Verified 08/19/22 11:07 legs Assessment & Plan Assessment & Plan (1) Transaminitis: Status: Acute Code(s): R74.01 - Elevation of levels of liver transaminase levels Assessment and Plan: patient is a 43-year-old female with a past history significant for polysubstance use disorder, IVDU, hepatitis-C, and depression who is seen for evaluation of productive cough and abnormal LFTs. Transaminitis AST 103, ALT 52, alk-phos 121 Likely secondary to hepatitis-C Patient asymptomatic: Patient denies abdominal pain LFTs have been much higher in the past, including AST of 807, ALT of 176, and alk phos of 138 Patient reports having failed initial outpatient treatment No treatment or further workup indicated at this time Should follow-up outpatient for repeat treatment Hyperammonemia Ammonia slightly elevated at 69 Patient asymptomatic: AO x4, not encephalopathic Likely secondary to hepatitis-C, noncompliant with lactulose Patient has been refusing lactulose at least once a day Will switch patient to lactulose 30 g daily Will recheck ammonia in 2-3 days' time Monitor mentation Hyperkalemia Potassium mildly elevated 0.3 Will give one dose of Lokelma Hold spironolactone Recheck CMP in 2-3 days' time Productive cough Pt experiencing productive cough x2 months Was concerned about pneumonia CXR negative for consolidation Procalcitonin WNL at 0.11 Bacterial pneumonia/infection unlikely No indication for treating with antibiotics at this time Guaifenesin p.r.n. for cough Thank you for allowing us to participate in the care of this patient. Will continue to follow pending repeat blood work. (2) Hyperammonemia: Status: Acute Code(s): E72.20 - Disorder of urea cycle metabolism, unspecified Plan Patient is a 43 year old female with hx of Bipolar d/o, PTSD, opioid use d/o, and cocaine use d/o who self presented to ER secondary to suicidal ideation d/t to increased depression and hopelessness. Plan: CV 15 minute safety checks continue home medications obtain collateral discharge planning possible section 35? 11/19: Patient reports feeling similar to yesterday. Pt stated, I'm depressed. I'm trying to process everything that has happened in my life. I miss my daughters; I feel like whenever I get strong enough to fight for them something knocks me down . Pt reports suicidal ideation with no plan. denies HI/VH/AH. Hospitalist consult ordered re:labs. 11/20: hospitalist findings and plan reviewed. continue current mental health regimen. continues depressed. 3/3: no change in presentation from yesterday. continue current mgmt. Reason for continued inpatient stay Substantial Risk for: inability to function and rapid decompensation Time Spent With Patient Time: Total time managing care of this patient today ____ minutes.
[2023-11-22] MEDS: hydrOXYzine HCL 25 MG TABLET PO ×2 (17:56→21:23)
[2023-11-22 19:45] VITALS: BP 134/83; PULSE 89; RESP 16; TEMP 36.2; O2SAT 98
[2023-11-22] MEDS: Melatonin 3 MG TABLET PO (21:23)
[2023-11-23] MEDS: guaiFENesin DM 200/20/10 ML 10 ML SYRUP PO ×2 (01:00→08:35)
[2023-11-23] MEDS: Nicotine Polacrilex 2 MG GUM 4 MG BUCCAL ×6 (01:01→21:47)
[2023-11-23 07:55] VITALS: BP 116/59; PULSE 78; RESP 14; TEMP 36.6; O2SAT 95
[2023-11-23] MEDS: methADONE HCl 20 MG/2 ML ORAL.CONC 80 MG PO (08:24)
[2023-11-23] MEDS: Aspirin 81 MG TAB.CHEW PO (08:24)
[2023-11-23] MEDS: Nicotine 14 MG PATCH.TD24 TRANSDERMA (08:24)
[2023-11-23] MEDS: Fluticasone Propionate Nasal 16 GM SPRAY 1 SPRAY NOSTRIL-B (08:24)
[2023-11-23] MEDS: DULoxetine HCl 60 MG CAPSULE.DR PO ×2 (08:24→21:39)
[2023-11-23] MEDS: Gabapentin 400 MG CAPSULE PO ×3 (08:24→21:39)
[2023-11-23] MEDS: polyethylene glycoL 3350 17 GM POWD.PACK PO (08:25)
--- NOTE | 2023-11-23 08:59 | P.PNPSI_ITS ---
Subjective Subjective Date of Service: 11/23/23 Reason For Visit: crisis Subjective Notes: Conditional Voluntary Interim History: Reviewed with Dr. Jimenez. Patient reports feeling better today; pt stated, I feel like my mood is better than when I came in. 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 I'm interested in going to a program after here . denies SI/HI/VH/AH. Medication Compliance: Yes Side effects from medications: No Attending Groups: Yes Review of Systems Constitutional: Reports as per HPI Eyes: Reports as per HPI Reports as per HPI Cardiovascular: Reports as per HPI Respiratory: Reports as per HPI Gastrointestinal: Reports as per HPI Genitourinary: Reports as per HPI Musculoskeletal: Reports as per HPI Skin/Breast: Reports as per HPI Reports as per HPI Psychiatric: Reports as per HPI Endocrine: Reports as per HPI Hematologic/Lymphatic: Reports as per HPI Allergic/Immunologic: Reports as per HPI Mental Status Exam Mental Status Exam Narrative: Pt is alert and oriented; behavior is cooperative and calm; dressed in casual attire; mood is described as better ; eye contact appropriate; Speech is normal rate, volume and prosody and not pressured; thought process is organized and goal directed; Thought content is on tx; denies SI/HI/VH/AH. Diagnostics Vital Signs (24Hr): Vital Signs - 24 hr 11/22/23 10:05 11/22/23 19:45 11/23/23 07:55 Temperature 96.8 F 97.1 F 97.8 F Pulse Rate 82 89 78 Respiratory Rate 18 16 14 Blood Pressure 107/55 L 134/83 116/59 L Pulse Oximetry 100 98 95 Oxygen Delivery Method Room Air Room Air Room Air BMI result Body Mass Index 42.8 Labs 11/20/23 11:09 11/22/23 06:59 Labs: Laboratory Results - last 48 hr 11/21/23 11/22/23 09:15 06:59 Sodium 139 Potassium 3.9 D Chloride 102 Carbon Dioxide 29 Anion Gap 12 BUN 5 L Creatinine 0.71 Estim Creat Clear Calc 132.2 Estimated GFR > 60 Random Glucose 139 H Calcium 9.6 Total Bilirubin 0.6 AST 77 H ALT 52 H Alkaline Phosphatase 113 Ammonia 46 Total Protein 6.9 Albumin 3.7 Influenza Type A (PCR) NEGATIVE Influenza Type B (PCR) NEGATIVE RSV RNA Qual (PCR) NEGATIVE SARS-CoV-2 RNA (RT-PCR) NEGATIVE Imaging Radiology Impressions: ITS Impressions Lumbar Spine X-Ray 11/16/23 22:53 IMPRESSION: No fracture. Mild degenerative disc disease L4-L5. Sacrum and Coccyx X-Ray 11/16/23 22:53 IMPRESSION: No fracture. Mild degenerative disc disease L4-L5. Chest X-Ray 11/20/23 17:00 IMPRESSION: Unremarkable chest examination. Medications Medications Current Medications Acetaminophen (Acetaminophen 325 Mg Tablet) 650 mg PO Q6H PRN PRN Reason: Headache/Pain Mild Scale (1-3) Last Admin: 11/21/23 20:34 Dose: 650 mg Al Hydroxide/Mg Hydroxide (Magnesium Hydrox/Alum Hydrox 30 Ml Oral.Susp) 30 ml PO Q6H PRN PRN Reason: Heartburn/Nausea Last Admin: 11/18/23 13:22 Dose: 30 ml Aspirin (Aspirin 81 Mg Tab.Chew) 81 mg PO DAILY [facility] Last Admin: 11/23/23 08:24 Dose: 81 mg Benzocaine (Throat Lozenge, Medicated Lozenge) 1 lozenge MUCOUS MEM Q2H PRN PRN Reason: Sore Throat Last Admin: 11/19/23 22:44 Dose: 1 lozenge Benzocaine (Throat Lozenge, Medicated Lozenge) 1 lozenge MUCOUS MEM Q2H PRN PRN Reason: Sore Throat Diazepam (Diazepam 5 Mg Tablet) 5 mg PO TID PRN PRN Reason: Anxiety Last Admin: 11/22/23 21:46 Dose: 5 mg Duloxetine HCl (Duloxetine Hcl 60 Mg Capsule.Dr) 60 mg PO BID [facility] Last Admin: 11/23/23 08:24 Dose: 60 mg Fluticasone Propionate (Fluticasone Propionate Nasal 16 Gm [place]) 1 spray NOSTRIL-B DAILY [facility] Last Admin: 11/23/23 08:24 Dose: 1 spray Gabapentin (Gabapentin 400 Mg Capsule) 400 mg PO TID@0900,1700,2100 [facility] Last Admin: 11/23/23 08:24 Dose: 400 mg Guaifenesin/Dextromethorphan (Guaifenesin Dm 200/20/10 Ml 10 Ml Syrup) 10 ml PO Q4H PRN PRN Reason: Cough Last Admin: 11/23/23 08:35 Dose: 10 ml Hydroxyzine HCl (Hydroxyzine Hcl 25 Mg Tablet) 25 mg PO Q6H PRN PRN Reason: Anxiety Last Admin: 11/22/23 21:23 Dose: 25 mg Lactulose (Lactulose 20 Gm/30 Ml Solution) 30 gm PO DAILY [facility] Last Admin: 11/23/23 08:25 Dose: Not Given Magnesium Hydroxide (Milk Of Magnesia 30 Ml Oral.Susp) 30 ml PO DAILY PRN PRN Reason: Constipation Melatonin (Melatonin 3 Mg Tablet) 3 mg PO BEDTIME [facility] Last Admin: 11/22/23 21:23 Dose: 3 mg Methadone HCl (Methadone Hcl 20 Mg/2 Ml Oral.Conc) 80 mg PO DAILY [facility] Last Admin: 11/23/23 08:24 Dose: 80 mg Methadone HCl (Methadone Hcl 20 Mg/2 Ml Oral.Conc) 70 mg PO DAILY@1300 [facility] Last Admin: 11/22/23 13:17 Dose: 70 mg Nicotine (Nicotine 14 Mg Patch.Td24) 14 mg TRANSDERMA DAILY [facility] Last Admin: 11/23/23 08:24 Dose: 14 mg Nicotine Polacrilex (Nicotine Polacrilex 2 Mg Gum) 4 mg BUCCAL Q2H PRN PRN Reason: Nicotine Cravings Last Admin: 11/23/23 08:34 Dose: 4 mg Polyethylene Glycol (Polyethylene Glycol 3350 17 Gm Powd.Pack) 17 gm PO DAILY [facility] Last Admin: 11/23/23 08:25 Dose: 17 gm Spironolactone (Spironolactone 25 Mg Tablet) 50 mg PO DAILY [facility]; Protocol Last Admin: 11/20/23 08:46 Dose: 50 mg Allergies Allergies Allergy/AdvReac Type Severity Reaction Status Date / Time quetiapine [From SEROQUEL] Allergy Severe THROAT Verified 08/19/22 11:07 SWELLING azithromycin [AZITHROMYCIN] Allergy Unknown Unknown Verified 08/19/22 11:07 erythromycin base Allergy Unknown RASH Verified 08/19/22 11:07 [ERYTHROMYCIN BASE] olanzapine [From ZYPREXA] Allergy Unknown PEDAL EDEMA Verified 08/19/22 11:07 sulfacetamide Allergy Unknown Unknown Verified 08/19/22 11:07 [From Sulfacet-R] sulfamethoxazole Allergy Unknown ITCHING Verified 08/19/22 11:07 [From BACTRIM] sulfur [From Sulfacet-R] Allergy Unknown Unknown Verified 08/19/22 11:07 trimethoprim [From BACTRIM] Allergy Unknown ITCHING Verified 08/19/22 11:07 risperidone [From RISPERDAL] AdvReac Unknown TWITCHING Verified 08/19/22 11:07 seafood AdvReac Unknown Vomiting Verified 08/19/22 11:07 shellfish derived AdvReac Unknown VOMITING Verified 08/19/22 11:07 [SHELLFISH DERIVED] trazodone AdvReac restless Verified 08/19/22 11:07 legs Assessment & Plan Assessment & Plan (1) Bipolar disorder: Status: Acute Code(s): F31.9 - Bipolar disorder, unspecified (2) Chronic post-traumatic stress disorder (PTSD): Status: Acute Code(s): F43.12 - Post-traumatic stress disorder, chronic (3) Opioid use disorder, severe, dependence: Status: Acute Code(s): F11.20 - Opioid dependence, uncomplicated (4) Cocaine abuse: Status: Acute Code(s): F14.10 - Cocaine abuse, uncomplicated (5) Transaminitis: Status: Acute Code(s): R74.01 - Elevation of levels of liver transaminase levels Assessment and Plan: patient is a 43-year-old female with a past history significant for polysubstance use disorder, IVDU, hepatitis-C, and depression who is seen for evaluation of productive cough and abnormal LFTs. Transaminitis AST 103, ALT 52, alk-phos 121 Likely secondary to hepatitis-C Patient asymptomatic: Patient denies abdominal pain LFTs have been much higher in the past, including AST of 807, ALT of 176, and alk phos of 138 Patient reports having failed initial outpatient treatment No treatment or further workup indicated at this time Should follow-up outpatient for repeat treatment Hyperammonemia Ammonia slightly elevated at 69 Patient asymptomatic: AO x4, not encephalopathic Likely secondary to hepatitis-C, noncompliant with lactulose Patient has been refusing lactulose at least once a day Will switch patient to lactulose 30 g daily Will recheck ammonia in 2-3 days' time Monitor mentation Hyperkalemia Potassium mildly elevated 0.3 Will give one dose of Lokelma Hold spironolactone Recheck CMP in 2-3 days' time Productive cough Pt experiencing productive cough x2 months Was concerned about pneumonia CXR negative for consolidation Procalcitonin WNL at 0.11 Bacterial pneumonia/infection unlikely No indication for treating with antibiotics at this time Guaifenesin p.r.n. for cough Thank you for allowing us to participate in the care of this patient. Will continue to follow pending repeat blood work. (6) Hyperammonemia: Status: Acute Code(s): E72.20 - Disorder of urea cycle metabolism, unspecified Plan Patient is a 43 year old female with hx of Bipolar d/o, PTSD, opioid use d/o, and cocaine use d/o who self presented to ER secondary to suicidal ideation d/t to increased depression and hopelessness. Plan: CV 15 minute safety checks continue home medications obtain collateral discharge planning possible section 35? 11/19: Patient reports feeling similar to yesterday. Pt stated, I'm depressed. I'm trying to process everything that has happened in my life. I miss my daughters; I feel like whenever I get strong enough to fight for them something knocks me down . Pt reports suicidal ideation with no plan. denies HI/VH/AH. Hospitalist consult ordered re:labs. 11/20: hospitalist findings and plan reviewed. continue current mental health regimen. continues depressed. 11/21: no change in presentation from yesterday. continue current mgmt. 11/22: Patient reports feeling better today; pt stated, I feel like my mood is better than when I came in. 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 I'm interested in going to a program after here . denies SI/HI/VH/AH. DC Miralax. encourage lactalose to assist in decreasing ammonia level. Patient educated on: diagnosis, medication risk/benefits and therapeutic strategies Informed Consent: understands Reason for continued inpatient stay Substantial Risk for: med/psych decompensation Time Spent With Patient Time: Total time managing care of this patient today _20___ minutes.
[2023-11-23] MEDS: diazePAM 5 MG TABLET PO ×3 (09:13→21:47)
[2023-11-23] MEDS: Lactulose 20 GM/30 ML SOLUTION 30 GM PO (11:50)
[2023-11-23] MEDS: hydrOXYzine HCL 25 MG TABLET PO ×2 (12:22→18:34)
[2023-11-23] MEDS: methADONE HCl 20 MG/2 ML ORAL.CONC 70 MG PO (12:22)
[2023-11-23] MEDS: Melatonin 3 MG TABLET PO (21:40)
[2023-11-23] MEDS: Acetaminophen 325 MG TABLET 650 MG PO (21:46)
[2023-11-24] MEDS: Nicotine Polacrilex 2 MG GUM 4 MG BUCCAL ×5 (04:20→20:36)
[2023-11-24] MEDS: diazePAM 5 MG TABLET PO ×3 (04:20→17:42)
[2023-11-24 08:15] VITALS: BP 111/55; PULSE 73; RESP 18; TEMP 35.2; O2SAT 100
[2023-11-24] MEDS: Spironolactone 25 MG TABLET 50 MG PO (08:17)
[2023-11-24] MEDS: Gabapentin 400 MG CAPSULE PO ×3 (08:18→20:36)
[2023-11-24] MEDS: DULoxetine HCl 60 MG CAPSULE.DR PO ×2 (08:18→20:36)
[2023-11-24] MEDS: Aspirin 81 MG TAB.CHEW PO (08:18)
[2023-11-24] MEDS: methADONE HCl 20 MG/2 ML ORAL.CONC 80 MG PO (08:19)
[2023-11-24] MEDS: Fluticasone Propionate Nasal 16 GM SPRAY 1 SPRAY NOSTRIL-B (08:23)
--- NOTE | 2023-11-24 08:41 | HO.PSYCHPN ---
Subjective Subjective Date of Service: 11/24/23 Reason For Visit: crisis Subjective Notes: Conditional Voluntary Interim History: Reviewed with Dr. Jimenez. Patient reports feeling depressed today; pt stated, I got depressed after a conversation I had with my mom. She always finds a way to put me down . denies SI/HI/VH/AH. Pt reports she is waiting to hear if she is going to be accepted by program. Medication Compliance: Yes Side effects from medications: No Attending Groups: Yes Review of Systems Constitutional: Reports as per HPI Eyes: Reports as per HPI Reports as per HPI Cardiovascular: Reports as per HPI Respiratory: Reports as per HPI Gastrointestinal: Reports as per HPI Genitourinary: Reports as per HPI Musculoskeletal: Reports as per HPI Skin/Breast: Reports as per HPI Reports as per HPI Psychiatric: Reports as per HPI Endocrine: Reports as per HPI Hematologic/Lymphatic: Reports as per HPI Allergic/Immunologic: Reports as per HPI Mental Status Exam Mental Status Exam Narrative: Pt is alert and oriented; behavior is cooperative and calm; dressed in casual attire; mood is described as depressed ; eye contact appropriate; Speech is normal rate, volume and prosody and not pressured; thought process is organized and goal directed; Thought content is on tx; denies SI/HI/VH/AH. Diagnostics Vital Signs (24Hr): Vital Signs - 24 hr 11/24/23 08:15 Temperature 95.4 F L Pulse Rate 73 Respiratory Rate 18 Blood Pressure 111/55 L Pulse Oximetry 100 Oxygen Delivery Method Room Air BMI result Body Mass Index 42.8 Labs 11/20/23 11:09 11/22/23 06:59 Imaging Radiology Impressions: ITS Impressions Lumbar Spine X-Ray 11/16/23 22:53 IMPRESSION: No fracture. Mild degenerative disc disease L4-L5. Sacrum and Coccyx X-Ray 11/16/23 22:53 IMPRESSION: No fracture. Mild degenerative disc disease L4-L5. Chest X-Ray 11/20/23 17:00 IMPRESSION: Unremarkable chest examination. Medications Medications Current Medications Acetaminophen (Acetaminophen 325 Mg Tablet) 650 mg PO Q6H PRN PRN Reason: Headache/Pain Mild Scale (1-3) Last Admin: 11/23/23 21:46 Dose: 650 mg Al Hydroxide/Mg Hydroxide (Magnesium Hydrox/Alum Hydrox 30 Ml Oral.Susp) 30 ml PO Q6H PRN PRN Reason: Heartburn/Nausea Last Admin: 11/18/23 13:22 Dose: 30 ml Aspirin (Aspirin 81 Mg Tab.Chew) 81 mg PO DAILY [facility] Last Admin: 11/24/23 08:18 Dose: 81 mg Benzocaine (Throat Lozenge, Medicated Lozenge) 1 lozenge MUCOUS MEM Q2H PRN PRN Reason: Sore Throat Last Admin: 11/19/23 22:44 Dose: 1 lozenge Benzocaine (Throat Lozenge, Medicated Lozenge) 1 lozenge MUCOUS MEM Q2H PRN PRN Reason: Sore Throat Diazepam (Diazepam 5 Mg Tablet) 5 mg PO TID PRN PRN Reason: Anxiety Last Admin: 11/24/23 04:20 Dose: 5 mg Duloxetine HCl (Duloxetine Hcl 60 Mg Capsule.Dr) 60 mg PO BID [facility] Last Admin: 11/24/23 08:18 Dose: 60 mg Fluticasone Propionate (Fluticasone Propionate Nasal 16 Gm [place]) 1 spray NOSTRIL-B DAILY [facility] Last Admin: 11/24/23 08:23 Dose: 1 spray Gabapentin (Gabapentin 400 Mg Capsule) 400 mg PO TID@0900,1700,2100 [facility] Last Admin: 11/24/23 08:18 Dose: 400 mg Guaifenesin/Dextromethorphan (Guaifenesin Dm 200/20/10 Ml 10 Ml Syrup) 10 ml PO Q4H PRN PRN Reason: Cough Last Admin: 11/23/23 08:35 Dose: 10 ml Hydroxyzine HCl (Hydroxyzine Hcl 25 Mg Tablet) 25 mg PO Q6H PRN PRN Reason: Anxiety Last Admin: 11/23/23 18:34 Dose: 25 mg Lactulose (Lactulose 20 Gm/30 Ml Solution) 30 gm PO DAILY [facility] Last Admin: 11/23/23 11:50 Dose: 30 gm Magnesium Hydroxide (Milk Of Magnesia 30 Ml Oral.Susp) 30 ml PO DAILY PRN PRN Reason: Constipation Melatonin (Melatonin 3 Mg Tablet) 3 mg PO BEDTIME [facility] Last Admin: 11/23/23 21:40 Dose: 3 mg Methadone HCl (Methadone Hcl 20 Mg/2 Ml Oral.Conc) 80 mg PO DAILY [facility] Last Admin: 11/24/23 08:19 Dose: 80 mg Methadone HCl (Methadone Hcl 20 Mg/2 Ml Oral.Conc) 70 mg PO DAILY@1300 [facility] Last Admin: 11/23/23 12:22 Dose: 70 mg Nicotine (Nicotine 14 Mg Patch.Td24) 14 mg TRANSDERMA DAILY [facility] Last Admin: 11/23/23 08:24 Dose: 14 mg Nicotine Polacrilex (Nicotine Polacrilex 2 Mg Gum) 4 mg BUCCAL Q2H PRN PRN Reason: Nicotine Cravings Last Admin: 11/24/23 04:20 Dose: 4 mg Spironolactone (Spironolactone 25 Mg Tablet) 50 mg PO DAILY [facility]; Protocol Last Admin: 11/24/23 08:17 Dose: 50 mg Allergies Allergies Allergy/AdvReac Type Severity Reaction Status Date / Time quetiapine [From SEROQUEL] Allergy Severe THROAT Verified 08/19/22 11:07 SWELLING azithromycin [AZITHROMYCIN] Allergy Unknown Unknown Verified 08/19/22 11:07 erythromycin base Allergy Unknown RASH Verified 08/19/22 11:07 [ERYTHROMYCIN BASE] olanzapine [From ZYPREXA] Allergy Unknown PEDAL EDEMA Verified 08/19/22 11:07 sulfacetamide Allergy Unknown Unknown Verified 08/19/22 11:07 [From Sulfacet-R] sulfamethoxazole Allergy Unknown ITCHING Verified 08/19/22 11:07 [From BACTRIM] sulfur [From Sulfacet-R] Allergy Unknown Unknown Verified 08/19/22 11:07 trimethoprim [From BACTRIM] Allergy Unknown ITCHING Verified 08/19/22 11:07 risperidone [From RISPERDAL] AdvReac Unknown TWITCHING Verified 08/19/22 11:07 seafood AdvReac Unknown Vomiting Verified 08/19/22 11:07 shellfish derived AdvReac Unknown VOMITING Verified 08/19/22 11:07 [SHELLFISH DERIVED] trazodone AdvReac restless Verified 08/19/22 11:07 legs Assessment & Plan Assessment & Plan (1) Bipolar disorder: Status: Acute Code(s): F31.9 - Bipolar disorder, unspecified (2) Chronic post-traumatic stress disorder (PTSD): Status: Acute Code(s): F43.12 - Post-traumatic stress disorder, chronic (3) Opioid use disorder, severe, dependence: Status: Acute Code(s): F11.20 - Opioid dependence, uncomplicated (4) Cocaine abuse: Status: Acute Code(s): F14.10 - Cocaine abuse, uncomplicated (5) Transaminitis: Status: Acute Code(s): R74.01 - Elevation of levels of liver transaminase levels Assessment and Plan: patient is a 43-year-old female with a past history significant for polysubstance use disorder, IVDU, hepatitis-C, and depression who is seen for evaluation of productive cough and abnormal LFTs. Transaminitis AST 103, ALT 52, alk-phos 121 Likely secondary to hepatitis-C Patient asymptomatic: Patient denies abdominal pain LFTs have been much higher in the past, including AST of 807, ALT of 176, and alk phos of 138 Patient reports having failed initial outpatient treatment No treatment or further workup indicated at this time Should follow-up outpatient for repeat treatment Hyperammonemia Ammonia slightly elevated at 69 Patient asymptomatic: AO x4, not encephalopathic Likely secondary to hepatitis-C, noncompliant with lactulose Patient has been refusing lactulose at least once a day Will switch patient to lactulose 30 g daily Will recheck ammonia in 2-3 days' time Monitor mentation Hyperkalemia Potassium mildly elevated 0.3 Will give one dose of Lokelma Hold spironolactone Recheck CMP in 2-3 days' time Productive cough Pt experiencing productive cough x2 months Was concerned about pneumonia CXR negative for consolidation Procalcitonin WNL at 0.11 Bacterial pneumonia/infection unlikely No indication for treating with antibiotics at this time Guaifenesin p.r.n. for cough Thank you for allowing us to participate in the care of this patient. Will continue to follow pending repeat blood work. (6) Hyperammonemia: Status: Acute Code(s): E72.20 - Disorder of urea cycle metabolism, unspecified Plan Patient is a 43 year old female with hx of Bipolar d/o, PTSD, opioid use d/o, and cocaine use d/o who self presented to ER secondary to suicidal ideation d/t to increased depression and hopelessness. Plan: CV 15 minute safety checks continue home medications obtain collateral discharge planning possible section 35? 11/19: Patient reports feeling similar to yesterday. Pt stated, I'm depressed. I'm trying to process everything that has happened in my life. I miss my daughters; I feel like whenever I get strong enough to fight for them something knocks me down . Pt reports suicidal ideation with no plan. denies HI/VH/AH. Hospitalist consult ordered re:labs. 11/20: hospitalist findings and plan reviewed. continue current mental health regimen. continues depressed. 11/21: no change in presentation from yesterday. continue current mgmt. 11/22: Patient reports feeling better today; pt stated, I feel like my mood is better than when I came in. 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 I'm interested in going to a program after here . denies SI/HI/VH/AH. DC Miralax. encourage lactalose to assist in decreasing ammonia level. 11/23: Patient reports feeling depressed today; pt stated, I got depressed after a conversation I had with my mom. She always finds a way to put me down . denies SI/HI/VH/AH. Pt reports she is waiting to hear if she is going to be accepted by program. Patient educated on: diagnosis, medication risk/benefits and therapeutic strategies Informed Consent: understands Reason for continued inpatient stay Substantial Risk for: med/psych decompensation Time Spent With Patient Time: Total time managing care of this patient today _20___ minutes.
[2023-11-24] MEDS: hydrOXYzine HCL 25 MG TABLET PO ×2 (09:04→17:56)
[2023-11-24] MEDS: Lactulose 20 GM/30 ML SOLUTION 30 GM PO (09:36)
[2023-11-24] MEDS: Nicotine 14 MG PATCH.TD24 TRANSDERMA (09:39)
[2023-11-24] MEDS: methADONE HCl 20 MG/2 ML ORAL.CONC 70 MG PO (13:15)
[2023-11-24 20:08] VITALS: BP 137/75; PULSE 89; RESP 18; TEMP 35.7; O2SAT 96
[2023-11-24] MEDS: Melatonin 3 MG TABLET PO (20:36)
[2023-11-25] MEDS: hydrOXYzine HCL 25 MG TABLET PO ×2 (03:01→16:56)
[2023-11-25] MEDS: Nicotine Polacrilex 2 MG GUM 4 MG BUCCAL ×5 (03:01→21:47)
[2023-11-25 09:00] VITALS: BP 136/80; PULSE 79; RESP 20; TEMP 35.9; O2SAT 97
[2023-11-25] MEDS: Gabapentin 400 MG CAPSULE PO ×3 (09:02→21:47)
[2023-11-25] MEDS: Aspirin 81 MG TAB.CHEW PO (09:02)
[2023-11-25] MEDS: Spironolactone 25 MG TABLET 50 MG PO (09:03)
[2023-11-25] MEDS: Fluticasone Propionate Nasal 16 GM SPRAY 1 SPRAY NOSTRIL-B (09:04)
[2023-11-25] MEDS: methADONE HCl 20 MG/2 ML ORAL.CONC 80 MG PO (09:04)
[2023-11-25] MEDS: DULoxetine HCl 60 MG CAPSULE.DR PO ×2 (09:04→21:47)
--- NOTE | 2023-11-25 09:09 | P.PNPSI_ITS ---
Subjective Subjective Date of Service: 11/25/23 Reason For Visit: crisis Subjective Notes: Conditional Voluntary Interim History: Reviewed with Dr. Jimenez. keeping to self today. Patient reports feeling okay today; pt stated, I'm just waiting to see if I get a bed at the program . denies SI/HI/VH/AH. Medication Compliance: Yes Side effects from medications: No Attending Groups: Intermittent Review of Systems Constitutional: Reports as per HPI Eyes: Reports as per HPI Reports as per HPI Cardiovascular: Reports as per HPI Respiratory: Reports as per HPI Gastrointestinal: Reports as per HPI Genitourinary: Reports as per HPI Musculoskeletal: Reports as per HPI Skin/Breast: Reports as per HPI Reports as per HPI Psychiatric: Reports as per HPI Endocrine: Reports as per HPI Hematologic/Lymphatic: Reports as per HPI Allergic/Immunologic: Reports as per HPI Mental Status Exam Mental Status Exam Narrative: Pt is alert and oriented; behavior is cooperative and calm; dressed in casual attire; mood is described as okay ; eye contact appropriate; Speech is normal rate, volume and prosody and not pressured; thought process is organized and goal directed; Thought content is on tx; denies SI/HI/VH/AH. Diagnostics Vital Signs (24Hr): Vital Signs - 24 hr 11/24/23 20:08 Temperature 96.3 F L Pulse Rate 89 Respiratory Rate 18 Blood Pressure 137/75 Pulse Oximetry 96 Oxygen Delivery Method Room Air BMI result Body Mass Index 42.8 Labs 11/20/23 11:09 11/22/23 06:59 Imaging Radiology Impressions: ITS Impressions Lumbar Spine X-Ray 11/16/23 22:53 IMPRESSION: No fracture. Mild degenerative disc disease L4-L5. Sacrum and Coccyx X-Ray 11/16/23 22:53 IMPRESSION: No fracture. Mild degenerative disc disease L4-L5. Chest X-Ray 11/20/23 17:00 IMPRESSION: Unremarkable chest examination. Medications Medications Current Medications Al Hydroxide/Mg Hydroxide (Magnesium Hydrox/Alum Hydrox 30 Ml Oral.Susp) 30 ml PO Q6H PRN PRN Reason: Heartburn/Nausea Last Admin: 11/18/23 13:22 Dose: 30 ml Aspirin (Aspirin 81 Mg Tab.Chew) 81 mg PO DAILY [facility] Last Admin: 11/24/23 08:18 Dose: 81 mg Benzocaine (Throat Lozenge, Medicated Lozenge) 1 lozenge MUCOUS MEM Q2H PRN PRN Reason: Sore Throat Last Admin: 11/19/23 22:44 Dose: 1 lozenge Benzocaine (Throat Lozenge, Medicated Lozenge) 1 lozenge MUCOUS MEM Q2H PRN PRN Reason: Sore Throat Diazepam (Diazepam 5 Mg Tablet) 5 mg PO TID PRN PRN Reason: Anxiety Last Admin: 11/24/23 17:42 Dose: 5 mg Duloxetine HCl (Duloxetine Hcl 60 Mg Capsule.Dr) 60 mg PO BID [facility] Last Admin: 11/24/23 20:36 Dose: 60 mg Fluticasone Propionate (Fluticasone Propionate Nasal 16 Gm [place]) 1 spray NOSTRIL-B DAILY [facility] Last Admin: 11/24/23 08:23 Dose: 1 spray Gabapentin (Gabapentin 400 Mg Capsule) 400 mg PO TID@0900,1700,2100 [facility] Last Admin: 11/24/23 20:36 Dose: 400 mg Guaifenesin/Dextromethorphan (Guaifenesin Dm 200/20/10 Ml 10 Ml Syrup) 10 ml PO Q4H PRN PRN Reason: Cough Last Admin: 11/23/23 08:35 Dose: 10 ml Hydroxyzine HCl (Hydroxyzine Hcl 25 Mg Tablet) 25 mg PO Q6H PRN PRN Reason: Anxiety Last Admin: 11/25/23 03:01 Dose: 25 mg Ibuprofen (Ibuprofen 600 Mg Tablet) 600 mg PO Q6H PRN PRN Reason: Pain, Moderate(Pain Scale 4-6) Lactulose (Lactulose 20 Gm/30 Ml Solution) 30 gm PO DAILY [facility] Last Admin: 11/24/23 09:36 Dose: 30 gm Magnesium Hydroxide (Milk Of Magnesia 30 Ml Oral.Susp) 30 ml PO DAILY PRN PRN Reason: Constipation Melatonin (Melatonin 3 Mg Tablet) 3 mg PO BEDTIME [facility] Last Admin: 11/24/23 20:36 Dose: 3 mg Methadone HCl (Methadone Hcl 20 Mg/2 Ml Oral.Conc) 80 mg PO DAILY [facility] Last Admin: 11/24/23 08:19 Dose: 80 mg Methadone HCl (Methadone Hcl 20 Mg/2 Ml Oral.Conc) 70 mg PO DAILY@1300 [facility] Last Admin: 11/24/23 13:15 Dose: 70 mg Nicotine (Nicotine 14 Mg Patch.Td24) 14 mg TRANSDERMA DAILY [facility] Last Admin: 11/24/23 09:39 Dose: 14 mg Nicotine Polacrilex (Nicotine Polacrilex 2 Mg Gum) 4 mg BUCCAL Q2H PRN PRN Reason: Nicotine Cravings Last Admin: 11/25/23 03:01 Dose: 4 mg Spironolactone (Spironolactone 25 Mg Tablet) 50 mg PO DAILY [facility]; Protocol Last Admin: 11/24/23 08:17 Dose: 50 mg Allergies Allergies Allergy/AdvReac Type Severity Reaction Status Date / Time quetiapine [From SEROQUEL] Allergy Severe THROAT Verified 08/19/22 11:07 SWELLING azithromycin [AZITHROMYCIN] Allergy Unknown Unknown Verified 08/19/22 11:07 erythromycin base Allergy Unknown RASH Verified 08/19/22 11:07 [ERYTHROMYCIN BASE] olanzapine [From ZYPREXA] Allergy Unknown PEDAL EDEMA Verified 08/19/22 11:07 sulfacetamide Allergy Unknown Unknown Verified 08/19/22 11:07 [From Sulfacet-R] sulfamethoxazole Allergy Unknown ITCHING Verified 08/19/22 11:07 [From BACTRIM] sulfur [From Sulfacet-R] Allergy Unknown Unknown Verified 08/19/22 11:07 trimethoprim [From BACTRIM] Allergy Unknown ITCHING Verified 08/19/22 11:07 risperidone [From RISPERDAL] AdvReac Unknown TWITCHING Verified 08/19/22 11:07 seafood AdvReac Unknown Vomiting Verified 08/19/22 11:07 shellfish derived AdvReac Unknown VOMITING Verified 08/19/22 11:07 [SHELLFISH DERIVED] trazodone AdvReac restless Verified 08/19/22 11:07 legs Assessment & Plan Assessment & Plan (1) Bipolar disorder: Status: Acute Code(s): F31.9 - Bipolar disorder, unspecified (2) Chronic post-traumatic stress disorder (PTSD): Status: Acute Code(s): F43.12 - Post-traumatic stress disorder, chronic (3) Opioid use disorder, severe, dependence: Status: Acute Code(s): F11.20 - Opioid dependence, uncomplicated (4) Cocaine abuse: Status: Acute Code(s): F14.10 - Cocaine abuse, uncomplicated (5) Transaminitis: Status: Acute Code(s): R74.01 - Elevation of levels of liver transaminase levels Assessment and Plan: patient is a 43-year-old female with a past history significant for polysubstance use disorder, IVDU, hepatitis-C, and depression who is seen for evaluation of productive cough and abnormal LFTs. Transaminitis AST 103, ALT 52, alk-phos 121 Likely secondary to hepatitis-C Patient asymptomatic: Patient denies abdominal pain LFTs have been much higher in the past, including AST of 807, ALT of 176, and alk phos of 138 Patient reports having failed initial outpatient treatment No treatment or further workup indicated at this time Should follow-up outpatient for repeat treatment Hyperammonemia Ammonia slightly elevated at 69 Patient asymptomatic: AO x4, not encephalopathic Likely secondary to hepatitis-C, noncompliant with lactulose Patient has been refusing lactulose at least once a day Will switch patient to lactulose 30 g daily Will recheck ammonia in 2-3 days' time Monitor mentation Hyperkalemia Potassium mildly elevated 0.3 Will give one dose of Lokelma Hold spironolactone Recheck CMP in 2-3 days' time Productive cough Pt experiencing productive cough x2 months Was concerned about pneumonia CXR negative for consolidation Procalcitonin WNL at 0.11 Bacterial pneumonia/infection unlikely No indication for treating with antibiotics at this time Guaifenesin p.r.n. for cough Thank you for allowing us to participate in the care of this patient. Will continue to follow pending repeat blood work. (6) Hyperammonemia: Status: Acute Code(s): E72.20 - Disorder of urea cycle metabolism, unspecified Plan Patient is a 43 year old female with hx of Bipolar d/o, PTSD, opioid use d/o, and cocaine use d/o who self presented to ER secondary to suicidal ideation d/t to increased depression and hopelessness. Plan: CV 15 minute safety checks continue home medications obtain collateral discharge planning possible section 35? 11/19: Patient reports feeling similar to yesterday. Pt stated, I'm depressed. I'm trying to process everything that has happened in my life. I miss my daughters; I feel like whenever I get strong enough to fight for them something knocks me down . Pt reports suicidal ideation with no plan. denies HI/VH/AH. Hospitalist consult ordered re:labs. 11/20: hospitalist findings and plan reviewed. continue current mental health regimen. continues depressed. 11/21: no change in presentation from yesterday. continue current mgmt. 11/22: Patient reports feeling better today; pt stated, I feel like my mood is better than when I came in. 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 I'm interested in going to a program after here . denies SI/HI/VH/AH. DC Miralax. encourage lactalose to assist in decreasing ammonia level. 11/23: Patient reports feeling depressed today; pt stated, I got depressed after a conversation I had with my mom. She always finds a way to put me down . denies SI/HI/VH/AH. Pt reports she is waiting to hear if she is going to be accepted by program. 11/24: Continue current tx plan. Patient educated on: diagnosis and medication risk/benefits Informed Consent: understands Reason for continued inpatient stay Substantial Risk for: med/psych decompensation Time Spent With Patient Time: Total time managing care of this patient today _20___ minutes.
[2023-11-25] MEDS: diazePAM 5 MG TABLET PO ×3 (09:15→19:21)
[2023-11-25] MEDS: guaiFENesin DM 200/20/10 ML 10 ML SYRUP PO (09:15)
[2023-11-25] MEDS: methADONE HCl 20 MG/2 ML ORAL.CONC 70 MG PO (13:09)
[2023-11-25 19:55] VITALS: BP 113/56; PULSE 88; RESP 16; TEMP 36.4; O2SAT 95
[2023-11-25] MEDS: Melatonin 3 MG TABLET PO (21:47)
[2023-11-26] MEDS: Nicotine Polacrilex 2 MG GUM 4 MG BUCCAL ×6 (00:23→22:46)
[2023-11-26 08:38] VITALS: BP 135/78; PULSE 84; RESP 14; TEMP 36.1; O2SAT 99
--- NOTE | 2023-11-26 09:17 | HO.PSYCHPN ---
Subjective Subjective Date of Service: 11/26/23 Reason For Visit: crisis Subjective Notes: Conditional Voluntary Interim History: Reviewed with Dr. Jimenez. Patient reports feeling okay today; pt stated, I'm feeling ready to go . denies SI/HI/VH/AH. Pt was accepted to [facility] but refused bed; pt stated, I've been to so many programs; I feel like it makes me more depressed . Pt reports she plans on staying with her friend and following up with outpatient providers, along with maintaining contact with her health care coach. Pt reports she is motivated to be sober . Pt to discharge tomorrow. Medication Compliance: Yes Side effects from medications: No Attending Groups: Intermittent Review of Systems Constitutional: Reports as per HPI Eyes: Reports as per HPI Reports as per HPI Cardiovascular: Reports as per HPI Respiratory: Reports as per HPI Gastrointestinal: Reports as per HPI Musculoskeletal: Reports as per HPI Skin/Breast: Reports as per HPI Reports as per HPI Psychiatric: Reports as per HPI Endocrine: Reports as per HPI Hematologic/Lymphatic: Reports as per HPI Allergic/Immunologic: Reports as per HPI Mental Status Exam Mental Status Exam Narrative: Pt is alert and oriented; behavior is cooperative and calm; dressed in casual attire; mood is described as okay ; eye contact appropriate; Speech is normal rate, volume and prosody and not pressured; thought process is organized and goal directed; Thought content is on tx; denies SI/HI/VH/AH. Diagnostics Vital Signs (24Hr): Vital Signs - 24 hr 11/25/23 19:55 11/26/23 08:38 Temperature 97.5 F 97.0 F Pulse Rate 88 84 Respiratory Rate 16 14 Blood Pressure 113/56 L 135/78 Pulse Oximetry 95 99 Oxygen Delivery Method Room Air Room Air BMI result Body Mass Index 42.8 Labs 11/20/23 11:09 11/22/23 06:59 Imaging Radiology Impressions: ITS Impressions Lumbar Spine X-Ray 11/16/23 22:53 IMPRESSION: No fracture. Mild degenerative disc disease L4-L5. Sacrum and Coccyx X-Ray 11/16/23 22:53 IMPRESSION: No fracture. Mild degenerative disc disease L4-L5. Chest X-Ray 11/20/23 17:00 IMPRESSION: Unremarkable chest examination. Medications Medications Current Medications Al Hydroxide/Mg Hydroxide (Magnesium Hydrox/Alum Hydrox 30 Ml Oral.Susp) 30 ml PO Q6H PRN PRN Reason: Heartburn/Nausea Last Admin: 11/18/23 13:22 Dose: 30 ml Aspirin (Aspirin 81 Mg Tab.Chew) 81 mg PO DAILY [facility] Last Admin: 11/25/23 09:02 Dose: 81 mg Benzocaine (Throat Lozenge, Medicated Lozenge) 1 lozenge MUCOUS MEM Q2H PRN PRN Reason: Sore Throat Last Admin: 11/19/23 22:44 Dose: 1 lozenge Benzocaine (Throat Lozenge, Medicated Lozenge) 1 lozenge MUCOUS MEM Q2H PRN PRN Reason: Sore Throat Diazepam (Diazepam 5 Mg Tablet) 5 mg PO TID PRN PRN Reason: Anxiety Last Admin: 11/25/23 19:21 Dose: 5 mg Duloxetine HCl (Duloxetine Hcl 60 Mg Capsule.Dr) 60 mg PO BID [facility] Last Admin: 11/25/23 21:47 Dose: 60 mg Fluticasone Propionate (Fluticasone Propionate Nasal 16 Gm [place]) 1 spray NOSTRIL-B DAILY [facility] Last Admin: 11/25/23 09:04 Dose: 1 spray Gabapentin (Gabapentin 400 Mg Capsule) 400 mg PO TID@0900,1700,2100 [facility] Last Admin: 11/25/23 21:47 Dose: 400 mg Guaifenesin/Dextromethorphan (Guaifenesin Dm 200/20/10 Ml 10 Ml Syrup) 10 ml PO Q4H PRN PRN Reason: Cough Last Admin: 11/25/23 09:15 Dose: 10 ml Hydroxyzine HCl (Hydroxyzine Hcl 25 Mg Tablet) 25 mg PO Q6H PRN PRN Reason: Anxiety Last Admin: 11/25/23 16:56 Dose: 25 mg Ibuprofen (Ibuprofen 600 Mg Tablet) 600 mg PO Q6H PRN PRN Reason: Pain, Moderate(Pain Scale 4-6) Lactulose (Lactulose 20 Gm/30 Ml Solution) 30 gm PO DAILY@0600 [facility] Last Admin: 11/26/23 07:34 Dose: Not Given Magnesium Hydroxide (Milk Of Magnesia 30 Ml Oral.Susp) 30 ml PO DAILY PRN PRN Reason: Constipation Melatonin (Melatonin 3 Mg Tablet) 3 mg PO BEDTIME [facility] Last Admin: 11/25/23 21:47 Dose: 3 mg Methadone HCl (Methadone Hcl 20 Mg/2 Ml Oral.Conc) 80 mg PO DAILY [facility] Last Admin: 11/25/23 09:04 Dose: 80 mg Methadone HCl (Methadone Hcl 20 Mg/2 Ml Oral.Conc) 70 mg PO DAILY@1300 [facility] Last Admin: 11/25/23 13:09 Dose: 70 mg Multi-Ingred Cream/Lotion/Oil/Oint (Mineral Oil/Petrolatum,White 106 Gm Tube) 1 appl TOPICAL BID EDER; Protocol Nicotine (Nicotine 14 Mg Patch.Td24) 14 mg TRANSDERMA DAILY [facility] Last Admin: 11/25/23 10:32 Dose: Not Given Nicotine Polacrilex (Nicotine Polacrilex 2 Mg Gum) 4 mg BUCCAL Q2H PRN PRN Reason: Nicotine Cravings Last Admin: 11/26/23 06:31 Dose: 4 mg Spironolactone (Spironolactone 25 Mg Tablet) 50 mg PO DAILY [facility]; Protocol Last Admin: 11/25/23 09:03 Dose: 50 mg Allergies Allergies Allergy/AdvReac Type Severity Reaction Status Date / Time quetiapine [From SEROQUEL] Allergy Severe THROAT Verified 08/19/22 11:07 SWELLING azithromycin [AZITHROMYCIN] Allergy Unknown Unknown Verified 08/19/22 11:07 erythromycin base Allergy Unknown RASH Verified 08/19/22 11:07 [ERYTHROMYCIN BASE] olanzapine [From ZYPREXA] Allergy Unknown PEDAL EDEMA Verified 08/19/22 11:07 sulfacetamide Allergy Unknown Unknown Verified 08/19/22 11:07 [From Sulfacet-R] sulfamethoxazole Allergy Unknown ITCHING Verified 08/19/22 11:07 [From BACTRIM] sulfur [From Sulfacet-R] Allergy Unknown Unknown Verified 08/19/22 11:07 trimethoprim [From BACTRIM] Allergy Unknown ITCHING Verified 08/19/22 11:07 risperidone [From RISPERDAL] AdvReac Unknown TWITCHING Verified 08/19/22 11:07 seafood AdvReac Unknown Vomiting Verified 08/19/22 11:07 shellfish derived AdvReac Unknown VOMITING Verified 08/19/22 11:07 [SHELLFISH DERIVED] trazodone AdvReac restless Verified 08/19/22 11:07 legs Assessment & Plan Assessment & Plan (1) Bipolar disorder: Status: Acute Code(s): F31.9 - Bipolar disorder, unspecified (2) Chronic post-traumatic stress disorder (PTSD): Status: Acute Code(s): F43.12 - Post-traumatic stress disorder, chronic (3) Opioid use disorder, severe, dependence: Status: Acute Code(s): F11.20 - Opioid dependence, uncomplicated (4) Cocaine abuse: Status: Acute Code(s): F14.10 - Cocaine abuse, uncomplicated (5) Transaminitis: Status: Acute Code(s): R74.01 - Elevation of levels of liver transaminase levels Assessment and Plan: patient is a 43-year-old female with a past history significant for polysubstance use disorder, IVDU, hepatitis-C, and depression who is seen for evaluation of productive cough and abnormal LFTs. Transaminitis AST 103, ALT 52, alk-phos 121 Likely secondary to hepatitis-C Patient asymptomatic: Patient denies abdominal pain LFTs have been much higher in the past, including AST of 807, ALT of 176, and alk phos of 138 Patient reports having failed initial outpatient treatment No treatment or further workup indicated at this time Should follow-up outpatient for repeat treatment Hyperammonemia Ammonia slightly elevated at 69 Patient asymptomatic: AO x4, not encephalopathic Likely secondary to hepatitis-C, noncompliant with lactulose Patient has been refusing lactulose at least once a day Will switch patient to lactulose 30 g daily Will recheck ammonia in 2-3 days' time Monitor mentation Hyperkalemia Potassium mildly elevated 0.3 Will give one dose of Lokelma Hold spironolactone Recheck CMP in 2-3 days' time Productive cough Pt experiencing productive cough x2 months Was concerned about pneumonia CXR negative for consolidation Procalcitonin WNL at 0.11 Bacterial pneumonia/infection unlikely No indication for treating with antibiotics at this time Guaifenesin p.r.n. for cough Thank you for allowing us to participate in the care of this patient. Will continue to follow pending repeat blood work. (6) Hyperammonemia: Status: Acute Code(s): E72.20 - Disorder of urea cycle metabolism, unspecified Plan Patient is a 43 year old female with hx of Bipolar d/o, PTSD, opioid use d/o, and cocaine use d/o who self presented to ER secondary to suicidal ideation d/t to increased depression and hopelessness. Plan: CV 15 minute safety checks continue home medications obtain collateral discharge planning possible section 35? 11/19: Patient reports feeling similar to yesterday. Pt stated, I'm depressed. I'm trying to process everything that has happened in my life. I miss my daughters; I feel like whenever I get strong enough to fight for them something knocks me down . Pt reports suicidal ideation with no plan. denies HI/VH/AH. Hospitalist consult ordered re:labs. 11/20: hospitalist findings and plan reviewed. continue current mental health regimen. continues depressed. 11/21: no change in presentation from yesterday. continue current mgmt. 11/22: Patient reports feeling better today; pt stated, I feel like my mood is better than when I came in. I have a health care coach still. I'm interested in going to a program after here . denies SI/HI/VH/AH. DC Miralax. encourage lactalose to assist in decreasing ammonia level. 11/23: Patient reports feeling depressed today; pt stated, I got depressed after a conversation I had with my mom. She always finds a way to put me down . denies SI/HI/VH/AH. Pt reports she is waiting to hear if she is going to be accepted by program. 11/24: Continue current tx plan. 11/25: Patient reports feeling okay today; pt stated, I'm feeling ready to go . denies SI/HI/VH/AH. Pt was accepted to [facility] but refused bed; pt stated, I've been to so many programs; I feel like it makes me more depressed . Pt reports she plans on staying with her friend and following up with outpatient providers, along with maintaining contact with her health care coach. Pt reports she is motivated to be sober . Pt to discharge tomorrow. Patient educated on: diagnosis, medication risk/benefits, substance abuse and therapeutic strategies Informed Consent: understands Reason for continued inpatient stay Substantial Risk for: stable for discharge Time Spent With Patient Time: Total time managing care of this patient today _20___ minutes.
[2023-11-26] MEDS: Nicotine 14 MG PATCH.TD24 TRANSDERMA (09:52)
[2023-11-26] MEDS: methADONE HCl 20 MG/2 ML ORAL.CONC 80 MG PO (09:53)
[2023-11-26] MEDS: Aspirin 81 MG TAB.CHEW PO (09:54)
[2023-11-26] MEDS: Spironolactone 25 MG TABLET 50 MG PO (09:55)
[2023-11-26] MEDS: Gabapentin 400 MG CAPSULE PO ×3 (09:55→20:29)
[2023-11-26] MEDS: diazePAM 5 MG TABLET PO ×3 (09:55→20:30)
[2023-11-26] MEDS: DULoxetine HCl 60 MG CAPSULE.DR PO ×2 (09:55→20:29)
[2023-11-26] MEDS: hydrOXYzine HCL 25 MG TABLET PO ×3 (09:56→22:46)
[2023-11-26] MEDS: Fluticasone Propionate Nasal 16 GM SPRAY 1 SPRAY NOSTRIL-B (09:56)
[2023-11-26] MEDS: methADONE HCl 20 MG/2 ML ORAL.CONC 70 MG PO (13:08)
[2023-11-26 20:13] VITALS: BP 142/91; PULSE 85; RESP 18; TEMP 35.2; O2SAT 97
[2023-11-26] MEDS: Ibuprofen 600 MG TABLET PO (20:30)
[2023-11-26] MEDS: Melatonin 3 MG TABLET PO (20:30)
[2023-11-26] MEDS: guaiFENesin DM 200/20/10 ML 10 ML SYRUP PO (20:32)
[2023-11-27] MEDS: Nicotine Polacrilex 2 MG GUM 4 MG BUCCAL ×3 (02:01→12:35)
[2023-11-27] MEDS: diazePAM 5 MG TABLET PO ×3 (02:01→12:35)
[2023-11-27 06:00] VITALS: BP 111/61; PULSE 79; RESP 16; TEMP 36.1; O2SAT 96
[2023-11-27] MEDS: Spironolactone 25 MG TABLET 50 MG PO (09:18)
[2023-11-27] MEDS: Gabapentin 400 MG CAPSULE PO (09:18)
[2023-11-27] MEDS: DULoxetine HCl 60 MG CAPSULE.DR PO (09:18)
[2023-11-27] MEDS: Aspirin 81 MG TAB.CHEW PO (09:18)
[2023-11-27] MEDS: Fluticasone Propionate Nasal 16 GM SPRAY 1 SPRAY NOSTRIL-B (09:19)
[2023-11-27] MEDS: Nicotine 14 MG PATCH.TD24 TRANSDERMA (09:19)
[2023-11-27] MEDS: methADONE HCl 20 MG/2 ML ORAL.CONC 80 MG PO (09:20)
[2023-11-27] MEDS: hydrOXYzine HCL 25 MG TABLET PO (09:39)
[2023-11-27] MEDS: methADONE HCl 20 MG/2 ML ORAL.CONC 70 MG PO (12:34)
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
== END 2023-11-27 14:11 | disposition home or self-care (01) | DRG 753 ==
LOC: HO.ED 11-18 13:34 → HO.PADLT16 11-18 13:52
PROVIDERS: Physician Assistant; Psychiatry & Neurology Psychiatry; Student in an Organized Health Care Education/Training Program; Admitting Provider Registered Nurse; Emergency Provider Emergency Medicine; Responsible Provider Registered Nurse; Visit Provider Psychiatry & Neurology Psychiatry
DX: F31.9 Bipolar disorder, unspecified (principal); E72.20 Disorder of urea cycle metabolism, unspecified; R45.851 Suicidal ideations; Z91.148 Patient's other noncompliance with medication regimen for other reason; F11.20 Opioid dependence, uncomplicated; F14.10 Cocaine abuse, uncomplicated; F17.210 Nicotine dependence, cigarettes, uncomplicated; B19.20 Unspecified viral hepatitis C without hepatic coma; Z20.822 Contact with and (suspected) exposure to COVID-19; Z71.6 Tobacco abuse counseling; F43.12 Post-traumatic stress disorder, chronic; M54.50 Low back pain, unspecified; G89.29 Other chronic pain; Z59.02 Unsheltered homelessness; Z79.899 Other long term (current) drug therapy
CPT/HCPCS: 0241U; 36415; 71045; 72100; 72220; 80048; 80053; 80061; 80076; 80307; 81001; 81025; 82140; 84145; 84520; 85025; 85652; 86140; 87086; 87635; 93005; 97161; 99285; S9485

== ENCOUNTER → 2023-11-16 22:37 | Outpatient (BNV) | payer OTHER, SELFPAY | PROVIDERS: Emergency Provider Emergency Medicine; Visit Provider Internal Medicine | DX: R94.31 Abnormal electrocardiogram [ECG] [EKG] (principal) | CPT/HCPCS: 93010 ==

== ENCOUNTER → 2023-11-18 13:00 | Outpatient (BNV) | payer OTHER, SELFPAY | PROVIDERS: Admitting Provider Registered Nurse; Emergency Provider Emergency Medicine; Responsible Provider Registered Nurse; Visit Provider Student in an Organized Health Care Education/Training Program | DX: R74.01 Elevation of levels of liver transaminase levels (principal); E72.20 Disorder of urea cycle metabolism, unspecified; E87.5 Hyperkalemia | CPT/HCPCS: 99222; 99499 ==

== ENCOUNTER → 2023-11-18 13:00 | Outpatient (BNV) | payer OTHER, SELFPAY | PROVIDERS: Admitting Provider Registered Nurse; Emergency Provider Emergency Medicine; Responsible Provider Registered Nurse; Visit Provider Psychiatry & Neurology Psychiatry | DX: F31.4 Bipolar disorder, current episode depressed, severe, without psychotic features (principal); F14.10 Cocaine abuse, uncomplicated; F11.20 Opioid dependence, uncomplicated; F43.12 Post-traumatic stress disorder, chronic; R74.01 Elevation of levels of liver transaminase levels; E72.20 Disorder of urea cycle metabolism, unspecified | CPT/HCPCS: 90792; 99231; 99232; 99238 ==

== ENCOUNTER 2023-11-28 17:53 | Inpatient (IN) | payer OTHER, SELFPAY ==
[2023-11-28 18:12] VITALS: BP 110/47; BP 160/78; PULSE 102; PULSE 91; RESP 15; TEMP 36.7; O2SAT 95; O2SAT 98; BMI 39.9
--- NOTE | 2023-11-28 18:29 | ED_ITS ---
HPI - Back Pain/Injury General Chief Complaint: Back Pain/Injury Stated Complaint: Back pain, hx of fx Time Seen by Provider: 11/28/23 18:13 Source: patient Limitations: no limitations History of Present Illness HPI Narrative: 43-year-old female history of hepatitis-C, depression, opioid dependence, substance use disorder bilateral leg pain, rhabdomyolysis, bipolar 1, chronic back pain brought in by ambulance for evaluation of lower back pain and weakness of her lower extremities. Patient states that she had a relapse and over the last 24 hours she has been using heroin and cocaine again. She states that she injection 40 bags of cocaine and 50 bag of heroin. She states she is now having severe pain in her back and weakness to the point. She states she tries to move her legs , it exacerbates the pain in her back. She states she is unable to stand secondary to her pain and weakness. She states that this is happened to her before when she was hospitalized here for rhabdomyolysis.Patient was last seen in the emergency department on 11/16/2023 and was hospitalized for elevated LFTs , LS ammonia and rhabdomyolysis with a CPK of 24,000 with normal kidney function. She was discharged on 11/22/2023. She denied fever, chills, chest pain, shortness of breath, nausea, vomiting or diarrhea. Related Data Home Medications Medication Instructions Recorded Confirmed methadone 10 mg/mL oral 80 mg PO DAILY 06/16/22 11/17/23 concentrate (Methadose) duloxetine 60 mg capsule,delayed 60 mg PO BID 11/17/23 11/17/23 release gabapentin 400 mg capsule 400 mg PO TID@0900,1700,2100 11/17/23 11/17/23 methadone 10 mg/mL oral 70 mg PO DAILY@1300 11/17/23 11/17/23 concentrate (Methadose) diazepam 5 mg tablet 5 mg PO TID PRN Anxiety 11/18/23 11/18/23 Previous Rx's Medication Instructions Recorded aspirin 81 mg chewable tablet 81 mg PO DAILY 30 days #30 tabs 11/26/23 lactulose 20 gram/30 mL oral 30 g (45 mL) PO DAILY@0600 30 days 11/26/23 solution #1,350 mL spironolactone 50 mg tablet 50 mg PO DAILY 30 days #30 tabs 11/26/23 Allergies Allergy/AdvReac Type Severity Reaction Status Date / Time quetiapine [From SEROQUEL] Allergy Severe THROAT Verified 11/28/23 18:25 SWELLING azithromycin [AZITHROMYCIN] Allergy Unknown Unknown Verified 11/28/23 18:25 erythromycin base Allergy Unknown RASH Verified 11/28/23 18:25 [ERYTHROMYCIN BASE] olanzapine [From ZYPREXA] Allergy Unknown PEDAL EDEMA Verified 11/28/23 18:25 sulfacetamide Allergy Unknown Unknown Verified 11/28/23 18:25 [From Sulfacet-R] sulfamethoxazole Allergy Unknown ITCHING Verified 11/28/23 18:25 [From BACTRIM] sulfur [From Sulfacet-R] Allergy Unknown Unknown Verified 11/28/23 18:25 trimethoprim [From BACTRIM] Allergy Unknown ITCHING Verified 11/28/23 18:25 risperidone [From RISPERDAL] AdvReac Unknown TWITCHING Verified 11/28/23 18:25 seafood AdvReac Unknown Vomiting Verified 11/28/23 18:25 shellfish derived AdvReac Unknown VOMITING Verified 11/28/23 18:25 [SHELLFISH DERIVED] trazodone AdvReac restless Verified 11/28/23 18:25 legs PMFSH Past Medical History Medical History (Updated 11/28/23 @ 22:23 by Sukhdev Palacios MD) Hepatitis C Depression Opioid dependence Leg pain, bilateral Rhabdomyolysis Opioid use disorder, moderate, in sustained remission, dependence Bipolar 1 disorder Substance abuse Substance abuse Back pain Opioid dependence Social History Social History Household Members: None Housing: Homeless Housing Other:: patient states she is homeless Do you presently have visiting nurse or other home services: No Unable to assess alcohol history related to: Unable to respond and Unknown Alcohol intake: former Comment: 1:1 sitter Patient Tobacco Use Status: Former Tobacco user Quit Date: 3 months ago Tobacco use type: Cigarette Cigarette Packs Per Day: 1 Cigarettes Per Day: 20.0 Years Smoked: 29 e-Cigarette/Vaping Use: Currently Using Second Hand Smoke Exposure: No Use of substances other than those prescribed or required for medical reasons: Yes Substance Use Type: Crack/Cocaine and Heroin Substance Use Frequency: Daily Last Used Substance: Just Prior to Admission Any prior treatment program specific to substance use: Yes Advance Directives: Yes Advance Directives on File: Yes Advance Directives Date on File: 12/28/20 service: No Current occupational status: unemployed and disabled Sexual orientation: Straight/Heterosexual Physical Exam 2 Vital Signs: Vital Signs: Last Vital Signs Temp 98.1 F 11/28/23 18:12 Pulse 92 11/28/23 20:00 Resp 18 11/28/23 20:00 BP 118/52 L 11/28/23 20:00 Pulse Ox 95 11/28/23 20:00 O2 Del Method Room Air 11/28/23 20:00 BMI result Body Mass Index 39.9 Vital signs were normal Exam: General: Awake, alert in no distress, weight 108.8 kg, BMI 39.9 kg per m2 Head: Normocephalic, atraumatic EENT: PERRL, Lids normal, sclera normal, conjunctiva normal, nose normal , ears normal, throat without erythema or exudates Neck: Supple, no adenopathy Lung: breath sounds symmetric, no wheezing, rales or rhonchi Chest: symmetric movement, nontender Heart: regular rate and rhythm, normal S1, S2 no murmurs or rubs Abdomen: soft, non-tender, nondistended, normal bowel sounds Back: Patient has diffuse tenderness with palpation of the vertebrae and paraspinal muscles in her lower back. Extremities: no deformities, moves all extremities symmetrically. She does have multiple track delgado in her hands from recently injecting heroin and cocaine. Neuro: Awake, alert, oriented, normal speech, cranial nerves intact, patient is able to lift both legs up against gravity but quickly tires and lowers then back to the bed, no weakness of her upper extremities. Medications Administered Generic Name Dose Route Start Last Admin Trade Name Freq PRN Reason Stop Dose Admin Diazepam 15 mg 11/28/23 21:00 11/28/23 20:54 Diazepam 5 Mg Tablet PO 15 mg ONCE EDER Administration Discontinued Medications Generic Name Dose Route Start Last Admin Trade Name Freq PRN Reason Stop Dose Admin Sodium Chloride 1,000 mls @ 999 mls/hr 11/28/23 18:30 11/28/23 21:19 Ns IV 11/28/23 19:30 Infused .Q1H1M STA Infusion Ketorolac Tromethamine 15 mg 11/28/23 18:30 11/28/23 19:59 Ketorolac Tromethamine 15 Mg/Ml Vial IVPUSH 11/28/23 18:31 15 mg ONCE STA Administration Medical Decision Making Medical Decision Making [facility] Narrative: 43-year-old female history of hepatitis-C, depression, opioid dependence, substance use disorder bilateral leg pain, rhabdomyolysis, bipolar 1, chronic back pain brought in by ambulance for evaluation of lower back pain and weakness of her lower extremities. Patient states that she had a relapse and over the last 24 hours inject 50 bags of heroin in 40 bags of cocaine. Patient is unable to stand secondary to weakness. Vital signs were normal. Physical examination did reveal weakness of her lower extremity tenderness of the left paraspinal muscle. Differential diagnosis: ?Includes but is not limited to exacerbation of chronic back pain, rhabdomyolysis, infectious process, electrolyte abnormality, anemia Following evaluation was ordered: CBC, CMP, CPK, ammonia, ESR, CRP, lipase, PTT, COVID-19, influenza, RSV, urinalysis Patient was initially treated with the following: Nurse ultrasound-guided midline placement, normal saline x1 L, Toradol 15 mg IV Course: 21:53 My interpretation patient's laboratory evaluation is as follows: WBC normal 7300. Platelet low 92,000-chronic. BUN elevated 20 with a normal creatinine. AST elevated 204. Alk-phos elevated 130. Bilirubin elevated 1.2. Ammonia was normal. ESR and CRP were normal. COVID-19, influenza and RSV were negative. CPK was elevated 19,871 consistent with rhabdomyolysis. Urinalysis revealed dark yellow urine, positive for blood, protein and nitrates. Microscopic- pending Patient's pain and weakness is secondary to rhabdomyolysis secondary to cocaine use. At this time I do not think that she can be discharged home secondary to severe weakness and will need to be hospitalized. I did order 2 more L of lactated Ringer's IV to treat her rhabdomyolysis. I will discuss admission with the covering hospitalist Admission/Observation Consideration of admission/observation: Escalation of care including admission/observation considered Consult Healthcare Provider Management of the patient was discussed with: Hospitalist Lab Data [facility] Lab Attestation statement: I reviewed the patient's lab results. 11/28/23 19:49 11/28/23 19:49 Labs: Lab Results 11/28/23 11/28/23 11/28/23 Range/Units 19:49 20:28 21:09 WBC 7.3 (4.8-10.8) X10*3/uL RBC 4.53 (4.20-5.50) X10*6/uL Hgb 13.6 (12.0-16.0) g/dl Hct 40.1 (37.0-47.0) % MCV 88.5 (80.0-98.0) fL MCH 30.0 (27.0-33.0) pg MCHC 33.9 (31.0-35.0) g/dl RDW 11.9 (11.0-16.0) % Plt Count 92 L (160-400) X10*3/uL MPV 10.3 (9.4-12.3) fL Immature Gran % (Auto) 0.1 (0.0-0.4) % Neut % (Auto) 70.1 (45-73) % Lymph % (Auto) 21.3 (20-40) % [place] % (Auto) 8.0 (2-11) % Eos % (Auto) 0.1 (0-4) % Baso % (Auto) 0.4 (0-2) % Lymph # (Auto) 1.6 (1.2-4.9) X10*3/uL [place] # (Auto) 0.6 (0.1-1.2) X10*3/uL Eos # (Auto) 0.0 (0.0-0.4) X10*3/uL Baso # (Auto) 0.0 (0.0-0.2) X10*3/uL Abs Immat Gran (auto) 0.01 (0.00-0.03) X10*3/uL Absolute Neuts (auto) 5.1 (2.0-8.3) x10*3/uL Absolute Nucleated RBC 0.000 (0.0-0.012) X10*3/uL Nucleated RBC % (auto) 0.0 (0.0-0.2) /100WBC Smear Tech's Comments VERIFIED ESR 8 (0-20) MM/HR APTT 25.4 L (26.0-36.8) SEC Sodium 136 (135-145) mmol/L Potassium 4.8 D (3.3-5.1) mmol/L Chloride 101 (96-108) mmol/L Carbon Dioxide 27 (22-29) mmol/L Anion Gap 13 (12-20) BUN 20 H (9-16) mg/dL Creatinine 0.84 (0.5-1.4) mg/dL Estim Creat Clear Calc 103.8 Estimated GFR > 60 Random Glucose 115 (60-115) mg/dL Calcium 9.6 (8.4-10.2) mg/dL Total Bilirubin 1.2 H (0.0-1.0) mg/dL AST 204 H (5-31) U/L ALT 66 H (0-31) U/L Alkaline Phosphatase 130 H (39-117) U/L Ammonia 40 (13-55) umol/L Total Creatine Kinase 10831 H (26-140) U/L C-Reactive Protein 0.38 (< or = 0.50) mg/dL Total Protein 7.7 (6.5-8.0) g/dL Albumin 4.2 (3.5-5.0) g/dL Lipase 5 L (8-78) U/L Urine Color Dark Yellow Urine Appearance Cloudy Urine pH 6.0 (5.0-9.0) Ur Specific [place] 1.020 (1.005-1.025) Urine Protein 100 (2+) H (Neg-Trace) mg/dL Urine Glucose (UA) 500 H (Negative) mg/dL Urine Ketones Trace (Negative) mg/dL Urine Blood Large (3+) H (Negative) Urine Nitrite Negative (Negative) Ur Leukocyte Esterase Moderate (2+) H (Negative) Urine RBC 3-5 H (0-2) /HPF Urine WBC 6-10 H (0-5) /HPF Ur Squamous Epith Cells 11-20 (0-2) /HPF Urine Bacteria None Seen (None Seen) Hyaline Casts >20 (0-2) /LPF Granular Casts Present Urine Opiates Screen POSITIVE H (Not Detect) Urine Fentanyl Screen POSITIVE H (Not Detect) Ur Barbiturates Screen Not Detected (Not Detect) Ur Phencyclidine Scrn Not Detected (Not Detect) Ur Amphetamines Screen Not Detected (Not Detect) U Benzodiazepines Scrn POSITIVE H (Not Detect) Urine Cocaine Screen POSITIVE H (Not Detect) U Marijuana (THC) Screen Not Detected (Not Detect) Influenza Type A (PCR) NEGATIVE (Negative) Influenza Type B (PCR) NEGATIVE (Negative) RSV RNA Qual (PCR) NEGATIVE (Negative) SARS-CoV-2 RNA (RT-PCR) NEGATIVE (Negative) External Record Review External record reviewed: Inpatient record Discharge Plan Discharge Clinical Impression: Rhabdomyolysis, Cocaine use, Weakness, Opiate use Patient Disposition: Admitted As Inpatient
--- NOTE | 2023-11-28 19:03 | PC.NURSE ---
discharged from here last night, used heroin and cocaine after discharge. Last used around 1300 today. reports back and leg pain d/t walking around a lot after using.
[2023-11-28 19:56] LABS: Mean Corpuscular Volume 88.5 fL (80.0-98.0); PLT CLUMP 1; SCAN SMEAR FLAG 1
[2023-11-28 19:58] LABS: Basophils Percent Auto 0.4 % (0-2); Eosinophils Percent Auto 0.1 % (0-4); Hematocrit 40.1 % (37.0-47.0); Hemoglobin 13.6 g/dl (12.0-16.0); Imm Gran Abs Auto 0.01 X10*3/uL (0.00-0.03); Imm Gran Pct Auto 0.1 % (0.0-0.4); Lymphocytes Absolute Auto 1.6 X10*3/uL (1.2-4.9); Lymphocytes Percent Auto 21.3 % (20-40); MANUAL DIFF FLAG SCAN; Mean Corpuscular HGB Conc 33.9 g/dl (31.0-35.0); Mean Platelet Volume 10.3 fL (9.4-12.3); Monocytes Absolute Auto 0.6 X10*3/uL (0.1-1.2); Neutrophils Absolute Auto 5.1 x10*3/uL (2.0-8.3); Neutrophils Percent Auto 70.1 % (45-73); Red Blood Count 4.53 X10*6/uL (4.20-5.50); Red Cell Distribution Width 11.9 % (11.0-16.0)
[2023-11-28] MEDS: 0.9 % Sodium Chloride 1,000 ML 999 ML IV (19:59)
[2023-11-28] MEDS: Ketorolac Tromethamine 15 MG/ML VIAL IVPUSH (19:59)
[2023-11-28 20:00] VITALS: BP 118/52; PULSE 92; RESP 18; O2SAT 95
[2023-11-28 20:05] LABS: Ammonia 40 umol/L (13-55)
[2023-11-28 20:07] LABS: Partial Thromboplastin Time 25.4 SEC (26.0-36.8)
[2023-11-28 20:15] LABS: Platelet Count 92 X10*3/uL (160-400); SLIDE REVIEW VERIFIED; White Blood Count 7.3 X10*3/uL (4.8-10.8)
[2023-11-28 20:27] LABS: Alanine Aminotransferase 66 U/L (0-31); Albumin Level 4.2 g/dL (3.5-5.0); Alkaline Phosphatase 130 U/L (39-117); Anion Gap 13 (12-20); Aspartate Amino Transferase 204 U/L (5-31); Bilirubin Total 1.2 mg/dL (0.0-1.0); Blood Urea Nitrogen 20 mg/dL (9-16); C Reactive Protein 0.38 mg/dL (< or = 0.50); Calcium 9.6 mg/dL (8.4-10.2); Carbon Dioxide 27 mmol/L (22-29); Chloride 101 mmol/L (96-108); Creatinine Clr Calc Pharmacy 103.8; Estimated Glomerular Filt Rate > 60; Glucose Random 115 mg/dL (60-115); Lipase 5 U/L (8-78); Potassium 4.8 mmol/L (3.3-5.1); Sodium 136 mmol/L (135-145); Total Protein 7.7 g/dL (6.5-8.0)
[2023-11-28 20:38] LABS: Erythrocyte Sedimentation Rate 8 MM/HR (0-20)
[2023-11-28] MEDS: diazePAM 5 MG TABLET 15 MG PO (20:54)
[2023-11-28 21:14] LABS: Influenza A PCR NEGATIVE (Negative); Influenza B PCR NEGATIVE (Negative); Resp Syncy Virus RNA Qual PCR NEGATIVE (Negative); SARS COV2 PCR INHOUSE NEGATIVE (Negative)
[2023-11-28 21:42] LABS: Appearance Urine Cloudy; Color Urine Dark Yellow; Glucose Urine UA 500 mg/dL (Negative); Leukocyte Esterase Urine Moderate (2+) (Negative); Nitrite Urine Negative (Negative); UMIC TRIGGER UACC YES; Urine Blood Large (3+) (Negative); Urine Ketones Trace mg/dL (Negative); Urine Protein 100 (2+) mg/dL (Neg-Trace)
[2023-11-28 21:50] LABS: Amphetamine Screen Urine Not Detected (Not Detect); Barbiturates, Urine Not Detected (Not Detect); Benzodiazepines Screen Urine POSITIVE (Not Detect); Cannabinoid Screen Urine Not Detected (Not Detect); Cocaine Screen Urine POSITIVE (Not Detect); Fentanyl, urine POSITIVE (Not Detect); Opiate Screen Urine POSITIVE (Not Detect); Phencyclidine Screen Urine Not Detected (Not Detect)
[2023-11-28 22:14] LABS: Bacteria Urine None Seen (None Seen); Granular Casts Urine Present; Hyaline Casts Urine >20 /LPF (0-2); UACC Culture Trigger YES
[2023-11-28] MEDS: Lactated Ringers 1,000 ML 999 ML IV ×2 (22:25→22:26)
--- NOTE | 2023-11-28 22:37 | PM.IMHP ---
History of Present Illness Date of Service: 11/28/23 Attending physician on admission: Negrita Ames Chief Complaint: Lower extremity weakness, back pain Pt is a 43-year-old female with a PMH significant for?polysubstance use disorder, IVDU, hepatitis-C that failed outpatient therapy, bipolar 1 disorder, and depression who presents to the ED for evaluation of lower back pain and extremity weakness. Patient was just discharged yesterday from Psychiatry after a stay from -11/25 for increased depression and hopelessness with SI. Patient reports after discharge she had a ?relapse? and over the next 24 hours injected 40-50 bags of heroin and $400 worth of cocaine. Last used at around 11:00 this morning when patient found that she no longer was able to walk secondary to weakness and pain. Was able to crawl out of the apartment she was in into the hallway where another resident found her and called EMS. Patient complains of global musculoskeletal pain, though particularly in her lower back and legs. Also complains of global musculoskeletal weakness especially in her legs. Of note, patient has had multiple presentations to the hospital for similar symptoms in the past. Denies fever, chills, nausea, vomiting. No chest pain/pressure, palpitations. Denies shortness of breath, cough. Currently denies any thoughts of self harm, saying she already has though her recent drug use. In the ED pt had elevated heart rate to 92 and soft BP as low as 110/47. Labs were significant for bilirubin 1.2, AST 204, ALT 66, alk-phos 130, and CPK 19,871. UA likely contaminated, showing moderate leukocyte esterase, negative nitrites, 6-10 wbc's, and 11-20 squamous epithelial cells. Tox screen positive for opiates, fentanyl, benzos, and cocaine. Tested negative for influenza, RSV, and COVID. Pt was treated with IVF, diazepam, and ketorolac. Pt will be admitted to the hospital for treatment and further evaluation of acute rhabdomyolysis likely secondary to cocaine use. Review of Systems Review of Systems: Generalized weakness Generalized musculoskeletal pain, especially in lower back and legs Denies fever, chills, nausea, vomiting, abdominal pain No polyuria, dysuria Denies chest pain/pressure, palpitations No shortness of breath Denies SI/HI [facility] Medical History (Updated 11/28/23 @ 22:23 by Sukhdev Palacios MD) Hepatitis C Depression Opioid dependence Leg pain, bilateral Rhabdomyolysis Opioid use disorder, moderate, in sustained remission, dependence Bipolar 1 disorder Substance abuse Substance abuse Back pain Opioid dependence Social History Household Members: None Housing: Homeless Housing Other:: patient states she is homeless Do you presently have visiting nurse or other home services: No Unable to assess alcohol history related to: Unable to respond and Unknown Alcohol intake: former Comment: 1:1 sitter Patient Tobacco Use Status: Former Tobacco user Quit Date: 3 months ago Tobacco use type: Cigarette Cigarette Packs Per Day: 1 Cigarettes Per Day: 20.0 Years Smoked: 29 e-Cigarette/Vaping Use: Currently Using Second Hand Smoke Exposure: No Use of substances other than those prescribed or required for medical reasons: Yes Substance Use Type: Crack/Cocaine and Heroin Substance Use Frequency: Daily Last Used Substance: Just Prior to Admission Any prior treatment program specific to substance use: Yes Advance Directives: Yes Advance Directives on File: Yes Advance Directives Date on File: 12/28/20 service: No Current occupational status: unemployed and disabled Sexual orientation: Straight/Heterosexual Meds Allergies Allergy/AdvReac Type Severity Reaction Status Date / Time quetiapine [From SEROQUEL] Allergy Severe THROAT Verified 11/28/23 18:25 SWELLING azithromycin [AZITHROMYCIN] Allergy Unknown Unknown Verified 11/28/23 18:25 erythromycin base Allergy Unknown RASH Verified 11/28/23 18:25 [ERYTHROMYCIN BASE] olanzapine [From ZYPREXA] Allergy Unknown PEDAL EDEMA Verified 11/28/23 18:25 sulfacetamide Allergy Unknown Unknown Verified 11/28/23 18:25 [From Sulfacet-R] sulfamethoxazole Allergy Unknown ITCHING Verified 11/28/23 18:25 [From BACTRIM] sulfur [From Sulfacet-R] Allergy Unknown Unknown Verified 11/28/23 18:25 trimethoprim [From BACTRIM] Allergy Unknown ITCHING Verified 11/28/23 18:25 risperidone [From RISPERDAL] AdvReac Unknown TWITCHING Verified 11/28/23 18:25 seafood AdvReac Unknown Vomiting Verified 11/28/23 18:25 shellfish derived AdvReac Unknown VOMITING Verified 11/28/23 18:25 [SHELLFISH DERIVED] trazodone AdvReac restless Verified 11/28/23 18:25 legs Active Medications: Current Medications Diazepam (Diazepam 5 Mg Tablet) 15 mg PO ONCE EDER Last Admin: 11/28/23 20:54 Dose: 15 mg Lactated Ringer's (Lr) 1,000 mls @ 999 mls/hr IV .Q1H1M EDER Stop: 11/28/23 23:00 Last Admin: 11/28/23 22:25 Dose: 999 mls/hr Lactated Ringer's (Lr) 1,000 mls @ 999 mls/hr IV .Q1H1M EDER Stop: 11/28/23 23:00 Last Admin: 11/28/23 22:26 Dose: 999 mls/hr Home Medications Medication Instructions Recorded Confirmed Last Taken Type methadone 10 mg/mL oral 80 mg PO DAILY 06/16/22 11/17/23 11/16/23 09:00 History concentrate (Methadose) duloxetine 60 mg capsule,delayed 60 mg PO BID 11/17/23 11/17/23 Unknown History release gabapentin 400 mg capsule 400 mg PO TID@0900,1700,2100 11/17/23 11/17/23 Unknown History methadone 10 mg/mL oral 70 mg PO DAILY@1300 11/17/23 11/17/23 11/16/23 13:00 History concentrate (Methadose) diazepam 5 mg tablet 5 mg PO TID PRN Anxiety 11/18/23 11/18/23 Unknown History Physical Exam Vital Signs and Narrative: Vital Signs: Last Vital Signs Temp 98.1 F 11/28/23 18:12 Pulse 92 11/28/23 20:00 Resp 18 11/28/23 20:00 BP 118/52 L 11/28/23 20:00 Pulse Ox 95 11/28/23 20:00 O2 Del Method Room Air 11/28/23 20:00 BMI result Body Mass Index 39.9 Constitutional: Alert, in no acute distress. Mental Status: Oriented to person, place and time. Eyes: Pupils are equal, round, and reactive to light. Ear, Nose, and Throat: Oropharynx clear, mucous membranes moist. Ears and nose without deformities. Trachea midline. Respiratory: Clear to auscultation bilaterally. No wheezing, rales, or rhonchi. Cardiovascular: S1, S2 regular. No murmurs, rubs, or gallops. Gastrointestinal: Abdomen soft, diffusely non-tender, obese. Normal bowel sounds. Neurologic: Cranial nerves II-XII are grossly intact bilaterally. No focal neurological deficits. Moves all extremities spontaneously though significant global weakness noted of upper and lower extremities. Skin: Warm, dry. Musculoskeletal: No cyanosis or clubbing. Extremities: Non pitting edema. Multiple areas of ecchymosis on hands and upper extremities, likely at injection sites. No signs of infection. Psychiatric: Flat affect. Results Labs 11/28/23 19:49 11/28/23 19:49 Labs: Laboratory Results - last 24 hr 11/28/23 11/28/23 11/28/23 19:49 20:28 21:09 MCV 88.5 MCH 30.0 MCHC 33.9 RDW 11.9 Plt Count 92 L MPV 10.3 Immature Gran % (Auto) 0.1 Neut % (Auto) 70.1 Lymph % (Auto) 21.3 [place] % (Auto) 8.0 Eos % (Auto) 0.1 Baso % (Auto) 0.4 Lymph # (Auto) 1.6 [place] # (Auto) 0.6 Eos # (Auto) 0.0 Baso # (Auto) 0.0 Abs Immat Gran (auto) 0.01 Absolute Neuts (auto) 5.1 Absolute Nucleated RBC 0.000 Nucleated RBC % (auto) 0.0 Smear Tech's Comments VERIFIED ESR 8 APTT 25.4 L Anion Gap 13 Estim Creat Clear Calc 103.8 Estimated GFR > 60 Random Glucose 115 Calcium 9.6 Total Bilirubin 1.2 H AST 204 H ALT 66 H Alkaline Phosphatase 130 H Ammonia 40 Total Creatine Kinase 46929 H C-Reactive Protein 0.38 Total Protein 7.7 Albumin 4.2 Lipase 5 L Urine Color Dark Yellow Urine Appearance Cloudy Urine pH 6.0 Ur Specific [place] 1.020 Urine Protein 100 (2+) H Urine Glucose (UA) 500 H Urine Ketones Trace Urine Blood Large (3+) H Urine Nitrite Negative Ur Leukocyte Esterase Moderate (2+) H Urine RBC 3-5 H Urine WBC 6-10 H Ur Squamous Epith Cells 11-20 Urine Bacteria None Seen Hyaline Casts >20 Granular Casts Present Urine Opiates Screen POSITIVE H Urine Fentanyl Screen POSITIVE H Ur Barbiturates Screen Not Detected Ur Phencyclidine Scrn Not Detected Ur Amphetamines Screen Not Detected U Benzodiazepines Scrn POSITIVE H Urine Cocaine Screen POSITIVE H U Marijuana (THC) Screen Not Detected Influenza Type A (PCR) NEGATIVE Influenza Type B (PCR) NEGATIVE RSV RNA Qual (PCR) NEGATIVE SARS-CoV-2 RNA (RT-PCR) NEGATIVE Assessment and Plan (1) Rhabdomyolysis: Status: Acute Plan Pt is a 43-year-old female with a PMH significant for?polysubstance use disorder, IVDU, hepatitis-C that failed outpatient therapy, bipolar 1 disorder, and depression who presents to the ED for evaluation of lower back pain and extremity weakness. Pt will be admitted to the hospital for treatment and further evaluation of acute rhabdomyolysis likely secondary to cocaine use. Rhabdomyolysis CPK 19,871 at time of presentation Likely secondary to cocaine use Patient has had multiple presentations for cocaine induced rhabdomyolysis in the past Patient has a history of acute kidney failure requiring temporary dialysis Pt received 3L IVF boluses, will be placed on maintenance fluids Kidney function, bicarb WNL Will hold on nephrology consult for now Follow CPK, BMP Global musculoskeletal weakness and pain In setting of above Will treat with morphine 4 mg Q 4 for pain management for now PT consult Polysubstance use disorder Patient reports injecting 40-50 bags of heroin and $400 worth of cocaine in the past 24 hours since discharge from [facility] Morphine q.4h for now Verify methadone Addiction medicine consult Mood disorder Continue home meds Patient released yesterday from [facility] Currently denies SI Consider Psychiatry consult Hepatitis-C Failed initial outpatient treatment Continue lactulose Full Code Attending:?Dr. Mann DVT Prophylaxis: Lovenox Pt will require a hospitalization of at least two nights for treatment of?acute cocaine induced rhabdomyolysis. Due to patient's inability to ambulate secondary to globalized weakness and pain, patient will require hospitalization for administration of aggressive IV fluid resuscitation, specialist consultation, and close monitoring of kidney function and electrolytes. Quality Stroke Does the patient have a stroke diagnosis?: No VTE Prior VTE?: No VTE Risk Level:: Medical - moderate - high VTE Device Contraindication: Treatment Not Indicated VTE Drug Contraindication: N/A - Med Ordered
[2023-11-28 23:17] VITALS: BP 99/47; PULSE 87; RESP 20
[2023-11-29] MEDS: Morphine Sulfate 4 MG/ML CARTRIDGE IVPUSH (00:16)
--- NOTE | 2023-11-29 00:20 | PC.NURSE ---
pt medicated for reported 10/10 pain. pt refused lovenox injection states those hurt this rn educated pt on importance of compliance with lovenox injections while in hospital. pt states I know I don't want it
[2023-11-29] MEDS: 0.9 % Sodium Chloride Flush 3 ML SYRINGE IVFLUSH (00:21)
[2023-11-29] MEDS: 0.9 % Sodium Chloride 1,000 ML 125 ML IVCONT ×3 (04:14→17:50)
[2023-11-29 06:27] LABS: Anion Gap 12 (12-20); Blood Urea Nitrogen 12 mg/dL (9-16); Calcium 8.7 mg/dL (8.4-10.2); Carbon Dioxide 25 mmol/L (22-29); Chloride 105 mmol/L (96-108); Creatinine Clr Calc Pharmacy 134.1; Estimated Glomerular Filt Rate > 60; Glucose Random 120 mg/dL (60-115); Potassium 3.5 mmol/L (3.3-5.1); Sodium 138 mmol/L (135-145)
--- NOTE | 2023-11-29 07:38 | PHA.MEDREC ---
Addendum entered by [employer] [facility] 11/29/23 07:41: Notified Surya Coelho that the med rec is complete 11/29/23 @[id number] Original Note: Pharmacy Consult ? Medication Reconciliation Pharmacy has completed the medication reconciliation. Patient discharged yesterday from [facility] after approximate 10 day stay... before [facility] Patient was at a facility for 30 days.
--- NOTE | 2023-11-29 07:45 | PC.NURSE ---
This rn resumed care of patient, she is currently resting comfortably, breakfast set up next to patient. Provider notified if they would like a repeat CK as one has not been repeated since original order, no new orders at this time
[2023-11-29] MEDS: Lactulose 20 GM/30 ML SOLUTION 30 GM PO (11:07)
[2023-11-29] MEDS: methADONE HCl 20 MG/2 ML ORAL.CONC 80 MG PO (11:09)
[2023-11-29] MEDS: Gabapentin 400 MG CAPSULE PO ×3 (11:09→20:07)
[2023-11-29] MEDS: Aspirin 81 MG TAB.CHEW PO (11:09)
[2023-11-29] MEDS: DULoxetine HCl 60 MG CAPSULE.DR PO ×2 (11:09→20:07)
[2023-11-29] MEDS: diazePAM 5 MG TABLET PO ×2 (11:20→20:07)
[2023-11-29 11:29] VITALS: BP 109/63; PULSE 77; RESP 12; TEMP 36.9; O2SAT 96
--- NOTE | 2023-11-29 13:07 | HO.PM.IMPN ---
Subjective Subjective Date of Service: 11/29/23 Interval History: Seen and evaluated complaining of muscle pain withdrawal symptoms controlled no reported other events Review of Systems Review of Systems: Yes all other systems are reviewed and are negative Physical Exam Vital Signs: Vital Signs: Last Vital Signs Temp 98.4 F 11/29/23 11:29 Pulse 77 11/29/23 11:29 Resp 12 11/29/23 11:29 BP 109/63 11/29/23 11:29 Pulse Ox 96 11/29/23 11:29 O2 Del Method Room Air 11/29/23 11:29 BMI result Body Mass Index 39.9 Const: Other: Constitutional : Alert and interactive, obese, mildly anxious Neck : Normal inspection, Supple Cardiovascular : RRR, no JVP, no lower extremity edema Respiratory : good bilateral air entry, no crackles, wheezes or rhonchi Gastrointestinal: soft, lax, Normal bowel sounds, Non tender Skin : Warm, Dry, Neurological : Alert and interactive, oriented by 3, moving all extremities Objective Data Active Medications Acetaminophen (Acetaminophen 325 Mg Tablet) 650 mg PO Q6H PRN PRN Reason: Pain, Mild (Pain Scale 1-3) Aspirin (Aspirin 81 Mg Tab.Chew) 81 mg PO DAILY [facility] Last Admin: 11/29/23 11:09 Dose: 81 mg Documented By: ALONA Benzonatate (Benzonatate 100 Mg Capsule) 100 mg PO TID PRN PRN Reason: Cough Diazepam (Diazepam 5 Mg Tablet) 15 mg PO ONCE [facility] Last Admin: 11/28/23 20:54 Dose: 15 mg Documented By: FELA Diazepam (Diazepam 5 Mg Tablet) 5 mg PO TID PRN PRN Reason: Anxiety Last Admin: 11/29/23 11:20 Dose: 5 mg Documented By: ALONA Docusate Sodium (Docusate Sodium 100 Mg Capsule) 100 mg PO DAILY PRN PRN Reason: Constipation Duloxetine HCl (Duloxetine Hcl 60 Mg Capsule.Dr) 60 mg PO BID [facility] Last Admin: 11/29/23 11:09 Dose: 60 mg Documented By: ALONA Enoxaparin Sodium (Enoxaparin Sodium 40 Mg/0.4 Ml Syringe) 40 mg SUBCUT Q24H [facility] Last Admin: 11/29/23 00:20 Dose: Not Given Documented By: JIMBO Non-Admin Reason: Patient Refused Gabapentin (Gabapentin 400 Mg Capsule) 400 mg PO TID@0900,1700,2100 [facility] Last Admin: 11/29/23 11:09 Dose: 400 mg Documented By: ALONA Sodium Chloride (Ns) 1,000 mls @ 125 mls/hr IVCONT .Q8H [facility] Last Admin: 11/29/23 10:14 Dose: 125 mls/hr Documented By: ALONA Lactulose (Lactulose 20 Gm/30 Ml Solution) 30 gm PO DAILY@0600 [facility] Last Admin: 11/29/23 11:07 Dose: 30 gm Documented By: ALONA Melatonin (Melatonin 3 Mg Tablet) 6 mg PO BEDTIME PRN PRN Reason: Insomnia Methadone HCl (Methadone Hcl 20 Mg/2 Ml Oral.Conc) 80 mg PO DAILY [facility] Last Admin: 11/29/23 11:09 Dose: 80 mg Documented By: ALONA Methadone HCl (Methadone Hcl 20 Mg/2 Ml Oral.Conc) 70 mg PO DAILY@1300 [facility] Methadone HCl (Methadone Hcl 20 Mg/2 Ml Oral.Conc) 70 mg PO DAILY@1500 [facility] Stop: 11/29/23 15:01 Morphine Sulfate (Morphine Sulfate 4 Mg/Ml Cartridge) 4 mg IVPUSH Q4H PRN; Protocol PRN Reason: Pain, Severe (Pain Scale 7-10) Last Admin: 11/29/23 00:16 Dose: 4 mg Documented By: JIMBO Ondansetron HCl (Ondansetron Hcl 4 Mg/2 Ml Vial) 4 mg IVPUSH Q8H PRN PRN Reason: Nausea and Vomiting Sodium Chloride (0.9 % Sodium Chloride Flush 3 Ml Syringe) 3 ml IVFLUSH QSHIFT [facility] Last Admin: 11/29/23 09:06 Dose: Not Given Documented By: ALONA Non-Admin Reason: IV Running Labs 11/28/23 19:49 11/29/23 06:10 Labs: Laboratory Results - last 24 hr 11/28/23 11/28/23 11/28/23 19:49 20:28 21:09 MCV 88.5 MCH 30.0 MCHC 33.9 RDW 11.9 Plt Count 92 L MPV 10.3 Immature Gran % (Auto) 0.1 Neut % (Auto) 70.1 Lymph % (Auto) 21.3 Creek % (Auto) 8.0 Eos % (Auto) 0.1 Baso % (Auto) 0.4 Lymph # (Auto) 1.6 Creek # (Auto) 0.6 Eos # (Auto) 0.0 Baso # (Auto) 0.0 Abs Immat Gran (auto) 0.01 Absolute Neuts (auto) 5.1 Absolute Nucleated RBC 0.000 Nucleated RBC % (auto) 0.0 Smear Tech's Comments VERIFIED ESR 8 APTT 25.4 L Anion Gap 13 Estim Creat Clear Calc 103.8 Estimated GFR > 60 Random Glucose 115 Calcium 9.6 Total Bilirubin 1.2 H AST 204 H ALT 66 H Alkaline Phosphatase 130 H Ammonia 40 Total Creatine Kinase 57749 H C-Reactive Protein 0.38 Total Protein 7.7 Albumin 4.2 Lipase 5 L Urine Color Dark Yellow Urine Appearance Cloudy Urine pH 6.0 Ur Specific [place] 1.020 Urine Protein 100 (2+) H Urine Glucose (UA) 500 H Urine Ketones Trace Urine Blood Large (3+) H Urine Nitrite Negative Ur Leukocyte Esterase Moderate (2+) H Urine RBC 3-5 H Urine WBC 6-10 H Ur Squamous Epith Cells 11-20 Urine Bacteria None Seen Hyaline Casts >20 Granular Casts Present Urine Opiates Screen POSITIVE H Urine Fentanyl Screen POSITIVE H Ur Barbiturates Screen Not Detected Ur Phencyclidine Scrn Not Detected Ur Amphetamines Screen Not Detected U Benzodiazepines Scrn POSITIVE H Urine Cocaine Screen POSITIVE H U Marijuana (THC) Screen Not Detected Influenza Type A (PCR) NEGATIVE Influenza Type B (PCR) NEGATIVE RSV RNA Qual (PCR) NEGATIVE SARS-CoV-2 RNA (RT-PCR) NEGATIVE 11/29/23 06:10 MCV MCH MCHC RDW Plt Count MPV Immature Gran % (Auto) Neut % (Auto) Lymph % (Auto) Creek % (Auto) Eos % (Auto) Baso % (Auto) Lymph # (Auto) [place] # (Auto) Eos # (Auto) Baso # (Auto) Abs Immat Gran (auto) Absolute Neuts (auto) Absolute Nucleated RBC Nucleated RBC % (auto) Smear Tech's Comments ESR APTT Anion Gap 12 Estim Creat Clear Calc 134.1 Estimated GFR > 60 Random Glucose 120 H Calcium 8.7 D Total Bilirubin AST ALT Alkaline Phosphatase Ammonia Total Creatine Kinase 78093 H C-Reactive Protein Total Protein Albumin Lipase Urine Color Urine Appearance Urine pH Ur Specific [place] Urine Protein Urine Glucose (UA) Urine Ketones Urine Blood Urine Nitrite Ur Leukocyte Esterase Urine RBC Urine WBC Ur Squamous Epith Cells Urine Bacteria Hyaline Casts Granular Casts Urine Opiates Screen Urine Fentanyl Screen Ur Barbiturates Screen Ur Phencyclidine Scrn Ur Amphetamines Screen U Benzodiazepines Scrn Urine Cocaine Screen U Marijuana (THC) Screen Influenza Type A (PCR) Influenza Type B (PCR) RSV RNA Qual (PCR) SARS-CoV-2 RNA (RT-PCR) Microbiology Microbiology Results: Microbiology 11/28/23 22:14 Urine Culture - Preliminary Urine clean catch - Urine sheth top Culture too young to evaluate. Assessment and Plan (1) Opiate use: Status: Acute (2) Weakness: Status: Acute (3) Cocaine use: Status: Acute (4) Rhabdomyolysis: Status: Acute Plan Pt is a 43-year-old female with a PMH significant for?polysubstance use disorder, IVDU, hepatitis-C that failed outpatient therapy, bipolar 1 disorder, and depression who presents to the ED for evaluation of lower back pain and extremity weakness. Pt will be admitted to the hospital for treatment and further evaluation of acute rhabdomyolysis likely secondary to cocaine use. Muscle pain 2/2 Acute [place] [address] Continue IVF Follow CPK, BMP morphine 4 mg Q 4 for pain management for now PT consult Polysubstance use disorder Patient reports injecting 40-50 bags of heroin and $400 worth of cocaine in the past 24 hours since discharge from [facility] unit Morphine q.4h for now Verify methadone Addiction medicine consult Psychiatry consult Mood disorder Continue home meds Patient released yesterday from [facility] unit Currently denies SI Consider Psychiatry consult Hepatitis-C Failed initial outpatient treatment Continue lactulose Full Code DVT Prophylaxis: Lovenox Pt will require a hospitalization overnight for treatment of?acute cocaine induced rhabdomyolysis. Due to patient's inability to ambulate secondary to globalized weakness and pain, patient will require hospitalization for administration of aggressive IV fluid resuscitation, specialist consultation, and close monitoring of kidney function and electrolytes. Quality Stroke Does the patient have a stroke diagnosis?: No VTE Prior VTE?: No VTE Risk Level:: Medical - moderate - high VTE Device Contraindication: Treatment Not Indicated VTE Drug Contraindication: N/A - Med Ordered
--- NOTE | 2023-11-29 14:40 | MHC.RECOVRN ---
T/W received [facility] referral for pt. for opiate and cocaine use. Pt is still in the ER awaiting floor transfer. Eval will be completed once pt. admitted to floor. I checked on her sx management and pt reports she is comfortable on current methadone dosing. ACS to follow once on floor.
[2023-11-29] MEDS: methADONE HCl 20 MG/2 ML ORAL.CONC 70 MG PO (15:12)
--- NOTE | 2023-11-29 15:26 | MHC.EDTECH ---
Brought patient a sun butter sandwich and a mihir ming.
[2023-11-29 19:17] VITALS: BP 118/57; PULSE 82; RESP 12; O2SAT 97
--- NOTE | 2023-11-29 19:20 | PC.NURSE ---
assumed care of pt from nicole BARKSDALE in ED at 1915. charge lpn Tiana made aware of pt admitting to use of heroin/cocaine bell captain. pt had not been changed over. 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 security notified.
--- NOTE | 2023-11-29 19:34 | PC.NURSE ---
Addendum entered by Nicole Hubbard 11/29/23 20:09: pt wanted to keep casanova that she had on self with her; left with pt. Original Note: pt changed over with security belongings in pod linen closet. pt ate dinner requesting prn meds. resp even and unlabored. ivf infusing. call lopez within reach.
--- NOTE | 2023-11-29 21:23 | PC.NURSE ---
pt repositioned in bed nad resting comfortably. call lopez within reach lights turned off warm blanket given.
--- NOTE | 2023-11-29 23:23 | PC.NURSE ---
received report from Nicole BARKSDALE, pt resting in stretcher, normal sinus on tele 75-77BPM, eyes closed no acute distress noted.
[2023-11-30 02:00] VITALS: BP 134/81; PULSE 76; RESP 18; TEMP 36.1; O2SAT 99
[2023-11-30] MEDS: 0.9 % Sodium Chloride 1,000 ML 125 ML IVCONT ×3 (02:05→18:37)
[2023-11-30 02:11] VITALS: BMI 47.4
[2023-11-30] MEDS: diazePAM 5 MG TABLET PO ×3 (03:21→18:41)
[2023-11-30 03:34] VITALS: BP 124/67; PULSE 85; RESP 16; TEMP 36.2; O2SAT 98
[2023-11-30] MEDS: Nicotine Polacrilex 2 MG GUM BUCCAL ×6 (05:42→22:22)
[2023-11-30] MEDS: Nicotine 14 MG PATCH.TD24 TRANSDERMA (05:42)
[2023-11-30] MEDS: Cyclobenzaprine HCl 10 MG TABLET PO ×3 (06:14→22:21)
[2023-11-30] MEDS: hydrOXYzine HCL 50 MG TABLET PO ×3 (06:14→19:44)
[2023-11-30 07:10] VITALS: RESP 18
--- NOTE | 2023-11-30 07:13 | PC.NURSE ---
Patient admitted to [facility]3 from ED at approximately 02:00 this morning. Patient here this admission for acute rhabdo as well as back pain and weakness 2/2 cocaine use. Pt stated she was not able to stand and pivot from stretcher to bed on arrival; patient transferred to bed using slide with additional staffing assistance. Pt denies use of assistive devices at baseline. 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 Addiction medicine consult placed prior to admission. Pt requesting PRN valium for anxiety on arrival, given with +effect, as well as nicotine patch and gum. Covering MD notified for NRT orders. Pt otherwise denies acute complaints; denies dizziness, headache, vision changes, numbness/tingling, chest pain, sob, and n/v. Pt offered prn tylenol though refused. Breathing is even and unlabored without distress on RA. VSS. Pt tolerating regular diet without n/v. Pt states LBM was last admission 11/26; offered prn colace though pt refused. Purewick in place 2/2 immobility. Pt assisted with repositioning q2h as tolerated. PT consult placed. High falls risk measures and in-room camera in place for patient safety. See admission assessment and tasks for full details. ? 05:45 Patient woke up to give scheduled lactulose and nicotine gum and patch. Patient refused lactulose despite education. Pt stated ?I need something to relax? and ?something for my stomach and back that?s bothering me?; pt requested hydroxyzine, refused tylenol. Covering Dr. Johnathan Ames notified; orders placed for hydroxyzine and flexeril with orders to give now, given.?? Handoff report given at 06:45.
[2023-11-30 07:39] VITALS: BP 115/66; PULSE 77; RESP 17; TEMP 36.4; O2SAT 95
[2023-11-30] MEDS: DULoxetine HCl 60 MG CAPSULE.DR PO ×2 (08:38→21:20)
[2023-11-30] MEDS: methADONE HCl 20 MG/2 ML ORAL.CONC 80 MG PO (08:38)
[2023-11-30] MEDS: Gabapentin 400 MG CAPSULE PO ×3 (08:38→21:20)
[2023-11-30] MEDS: Aspirin 81 MG TAB.CHEW PO (08:45)
[2023-11-30 08:49] LABS: Anion Gap 10 (12-20); Blood Urea Nitrogen 5 mg/dL (9-16); Calcium 8.6 mg/dL (8.4-10.2); Carbon Dioxide 24 mmol/L (22-29); Chloride 110 mmol/L (96-108); Creatinine Clr Calc Pharmacy 152.7; Estimated Glomerular Filt Rate > 60; Glucose Random 117 mg/dL (60-115); Potassium 4.4 mmol/L (3.3-5.1); Sodium 140 mmol/L (135-145)
--- NOTE | 2023-11-30 09:08 | P.PNIM_ITS ---
Subjective Subjective Date of Service: 11/30/23 Interval History: Seen and evaluated complaining of muscle pain all over body withdrawal symptoms controlled no reported other events Review of Systems Review of Systems: Yes all other systems are reviewed and are negative Physical Exam 2 Vital Signs: Vital Signs: Last Vital Signs Temp 97.6 F 11/30/23 07:39 Pulse 77 11/30/23 07:39 Resp 17 11/30/23 07:39 BP 115/66 11/30/23 07:39 Pulse Ox 95 11/30/23 07:39 O2 Del Method Room Air 11/30/23 07:39 BMI result Body Mass Index 47.4 Const: Other: Constitutional : Alert and interactive, obese, mildly anxious Neck : Normal inspection, Supple Cardiovascular : RRR, no JVP, no lower extremity edema Respiratory : good bilateral air entry, no crackles, wheezes or rhonchi Gastrointestinal: soft, lax, Normal bowel sounds, Non tender Skin : Warm, Dry, Neurological : Alert and interactive, oriented x3, moving all extremities Objective Data Active Medications Acetaminophen (Acetaminophen 325 Mg Tablet) 650 mg PO Q6H PRN PRN Reason: Pain, Mild (Pain Scale 1-3) Aspirin (Aspirin 81 Mg Tab.Chew) 81 mg PO DAILY [facility] Last Admin: 11/30/23 08:45 Dose: 81 mg Documented By: ALBERTO Benzonatate (Benzonatate 100 Mg Capsule) 100 mg PO TID PRN PRN Reason: Cough Cyclobenzaprine HCl (Cyclobenzaprine Hcl 10 Mg Tablet) 10 mg PO TID PRN PRN Reason: spasm Last Admin: 11/30/23 06:14 Dose: 10 mg Documented By: NICOLASA Diazepam (Diazepam 5 Mg Tablet) 15 mg PO ONCE [facility] Last Admin: 11/28/23 20:54 Dose: 15 mg Documented By: FELA Diazepam (Diazepam 5 Mg Tablet) 5 mg PO TID PRN PRN Reason: Anxiety Last Admin: 11/30/23 03:21 Dose: 5 mg Documented By: NICOLASA Docusate Sodium (Docusate Sodium 100 Mg Capsule) 100 mg PO DAILY PRN PRN Reason: Constipation Duloxetine HCl (Duloxetine Hcl 60 Mg Capsule.Dr) 60 mg PO BID [facility] Last Admin: 11/30/23 08:38 Dose: 60 mg Documented By: ALBERTO Enoxaparin Sodium (Enoxaparin Sodium 40 Mg/0.4 Ml Syringe) 40 mg SUBCUT Q24H [facility] Last Admin: 11/29/23 21:23 Dose: Not Given Documented By: KAUR Non-Admin Reason: Patient Refused Gabapentin (Gabapentin 400 Mg Capsule) 400 mg PO TID@0900,1700,2100 [facility] Last Admin: 11/30/23 08:38 Dose: 400 mg Documented By: ALBERTO Hydroxyzine HCl (Hydroxyzine Hcl 50 Mg Tablet) 50 mg PO Q6H PRN PRN Reason: Anxiety Last Admin: 11/30/23 06:14 Dose: 50 mg Documented By: NICOLASA Sodium Chloride (Ns) 1,000 mls @ 125 mls/hr IVCONT .Q8H [facility] Last Admin: 11/30/23 02:05 Dose: 125 mls/hr Documented By: NICOLASA Lactulose (Lactulose 20 Gm/30 Ml Solution) 30 gm PO DAILY@0600 [facility] Last Admin: 11/30/23 05:42 Dose: Not Given Documented By: NICOLASA Non-Admin Reason: Patient Refused Melatonin (Melatonin 3 Mg Tablet) 6 mg PO BEDTIME PRN PRN Reason: Insomnia Methadone HCl (Methadone Hcl 20 Mg/2 Ml Oral.Conc) 80 mg PO DAILY [facility] Last Admin: 11/30/23 08:38 Dose: 80 mg Documented By: ALBERTO Methadone HCl (Methadone Hcl 20 Mg/2 Ml Oral.Conc) 70 mg PO DAILY@1300 [facility] Morphine Sulfate (Morphine Sulfate 4 Mg/Ml Cartridge) 4 mg IVPUSH Q4H PRN; Protocol PRN Reason: Pain, Severe (Pain Scale 7-10) Last Admin: 11/29/23 00:16 Dose: 4 mg Documented By: JIMBO Nicotine (Nicotine 14 Mg Patch.Td24) 14 mg TRANSDERMA DAILY [facility] Last Admin: 11/30/23 05:42 Dose: 14 mg Documented By: NICOLASA Nicotine Polacrilex (Nicotine Polacrilex 2 Mg Gum) 2 mg BUCCAL Q2H PRN PRN Reason: Nicotine Cravings Last Admin: 11/30/23 08:40 Dose: 2 mg Documented By: ALBERTO Ondansetron HCl (Ondansetron Hcl 4 Mg/2 Ml Vial) 4 mg IVPUSH Q8H PRN PRN Reason: Nausea and Vomiting Sodium Chloride (0.9 % Sodium Chloride Flush 3 Ml Syringe) 3 ml IVFLUSH QSHIFT [facility] Last Admin: 11/30/23 07:23 Dose: Not Given Documented By: ALBERTO Non-Admin Reason: IV Running Labs 11/28/23 19:49 11/30/23 08:08 Labs: Laboratory Results - last 24 hr 11/29/23 11/30/23 11/30/23 06:10 08:08 08:08 Anion Gap 10 L Cancelled Estim Creat Clear Calc 152.7 Estimated GFR Random Glucose Calcium Total Creatine Kinase 28386 H 11/30/23 11/30/23 11/30/23 08:08 08:08 08:08 Anion Gap Estim Creat Clear Calc Cancelled Estimated GFR > 60 Cancelled Random Glucose 117 H Cancelled Calcium 8.6 Total Creatine Kinase 11/30/23 08:08 Anion Gap Estim Creat Clear Calc Estimated GFR Random Glucose Calcium Cancelled Total Creatine Kinase 9472 H Microbiology Microbiology Results: Microbiology 11/28/23 22:14 Urine Culture - Final Urine clean catch - Urine sheth top Assessment and Plan (1) Opiate use: Status: Acute (2) Weakness: Status: Acute (3) Rhabdomyolysis: Status: Acute (4) Cocaine use: Status: Acute Plan Pt is a 43-year-old female with a PMH significant for?polysubstance use disorder, IVDU, hepatitis-C that failed outpatient therapy, bipolar 1 disorder, and depression who presents to the ED for evaluation of lower back pain and extremity weakness. Pt will be admitted to the hospital for treatment and further evaluation of acute rhabdomyolysis likely secondary to cocaine use. Muscle pain 2/2 Acute Rhabdomyolysis from Cocaine abuse trending down to 9000 Continue IVF Follow CPK, BMP morphine 4 mg Q 4 for pain management for now PT consult Polysubstance use disorder Patient reports injecting 40-50 bags of heroin and $400 worth of cocaine in the past 24 hours since discharge from [facility] psychiat[facility] unit Morphine q.4h for now continue methadone Addiction medicine consult Psychiatry consult Mood disorder Continue home meds Patient released yesterday from [facility] unit Currently denies SI Hepatitis-C Failed initial outpatient treatment Continue lactulose Full Code DVT Prophylaxis: Lovenox Pt will require a hospitalization overnight for treatment of?acute cocaine induced rhabdomyolysis. Due to patient's inability to ambulate secondary to globalized weakness and pain, patient will require hospitalization for administration of aggressive IV fluid resuscitation, specialist consultation, and close monitoring of kidney function and electrolytes. Quality Stroke Does the patient have a stroke diagnosis?: No VTE Prior VTE?: No VTE Risk Level:: Medical - moderate - high VTE Device Contraindication: Treatment Not Indicated VTE Drug Contraindication: N/A - Med Ordered
[2023-11-30 11:00] LABS: Hematocrit 33.6 % (37.0-47.0); Hemoglobin 11.2 g/dl (12.0-16.0); Mean Corpuscular HGB Conc 33.3 g/dl (31.0-35.0); Mean Corpuscular Hemoglobin 30.5 pg (27.0-33.0); Mean Corpuscular Volume 91.6 fL (80.0-98.0); Mean Platelet Volume 10.3 fL (9.4-12.3); Red Blood Count 3.67 X10*6/uL (4.20-5.50); Red Cell Distribution Width 12.5 % (11.0-16.0)
[2023-11-30 11:04] LABS: White Blood Count 2.1 X10*3/uL (4.8-10.8)
--- NOTE | 2023-11-30 11:04 | MHC.CM.PN ---
met with pt who reports being involved with dmh she has been living in a hotel room she wants to go for rehab referrals made she knows bed search will be wide ,she is okay with that
[2023-11-30 11:05] LABS: Platelet Count 72 X10*3/uL (160-400)
--- NOTE | 2023-11-30 12:12 | MHC.CLN ---
NUTRITION CONSULT FOR WEIGHT GAIN. EMR REVIEWED. 11/30/23 TGXMXG=394.1 KG; 11/28/23 GCMQHP=647.9 KG. WIDE VARIANCE SUGGESTS ERROR IN WEIGHT. PATIENT HX OF DRUG USE AND RECENT HOMELESSNESS. DOES SHOW WEIGHT GAIN TREND X 3 YEARS WITH WEIGHT 12/05/20=93.6 KG. DIET=REGULAR. NO ADDITIONAL NUTRITION INTERVENTIONS AT THIS TIME.
[2023-11-30] MEDS: methADONE HCl 20 MG/2 ML ORAL.CONC 70 MG PO (13:11)
[2023-11-30 15:23] VITALS: BP 129/71; PULSE 78; RESP 18; TEMP 36.3; O2SAT 95
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
[2023-11-30 18:37] VITALS: BP 137/71; PULSE 73; RESP 18; TEMP 36.3; O2SAT 95
[2023-11-30] MEDS: ondansetron HCL 4 MG/2 ML VIAL IVPUSH (19:44)
[2023-11-30] MEDS: Melatonin 3 MG TABLET 6 MG PO (22:21)
[2023-11-30] MEDS: Morphine Sulfate 4 MG/ML CARTRIDGE IVPUSH (22:22)
--- NOTE | 2023-12-01 00:08 | PC.NURSE ---
pt is refusing lovenox educated on importance of taking medications
[2023-12-01] MEDS: Lactated Ringers 1,000 ML 150 ML IVCONT ×3 (03:49→17:57)
[2023-12-01 03:51] VITALS: BP 143/78; PULSE 73; RESP 18; TEMP 36.4; O2SAT 96
[2023-12-01] MEDS: Morphine Sulfate 4 MG/ML CARTRIDGE IVPUSH ×3 (03:55→18:04)
[2023-12-01] MEDS: Nicotine Polacrilex 2 MG GUM BUCCAL ×5 (03:56→21:08)
[2023-12-01 07:06] LABS: Hemoglobin 9.8 g/dl (12.0-16.0); Mean Corpuscular HGB Conc 31.6 g/dl (31.0-35.0); Mean Corpuscular Hemoglobin 29.2 pg (27.0-33.0); Mean Corpuscular Volume 92.3 fL (80.0-98.0); Mean Platelet Volume 11.4 fL (9.4-12.3); Platelet Count 194 X10*3/uL (160-400); Red Blood Count 3.36 X10*6/uL (4.20-5.50); Red Cell Distribution Width 12.5 % (11.0-16.0)
[2023-12-01 07:14] LABS: White Blood Count 1.6 X10*3/uL (4.8-10.8)
[2023-12-01 07:25] LABS: Anion Gap 9 (12-20); Blood Urea Nitrogen 4 mg/dL (9-16); Calcium 8.9 mg/dL (8.4-10.2); Carbon Dioxide 27 mmol/L (22-29); Chloride 109 mmol/L (96-108); Creatinine Clr Calc Pharmacy 160.4; Estimated Glomerular Filt Rate > 60; Glucose Random 147 mg/dL (60-115); Potassium 3.8 mmol/L (3.3-5.1); Sodium 141 mmol/L (135-145)
[2023-12-01 08:25] VITALS: BP 110/55; PULSE 73; RESP 17; TEMP 36.2; O2SAT 95
[2023-12-01] MEDS: DULoxetine HCl 60 MG CAPSULE.DR PO ×2 (09:09→21:08)
[2023-12-01] MEDS: Aspirin 81 MG TAB.CHEW PO (09:09)
[2023-12-01] MEDS: methADONE HCl 20 MG/2 ML ORAL.CONC 80 MG PO (09:09)
[2023-12-01] MEDS: diazePAM 5 MG TABLET PO ×2 (09:10→17:16)
[2023-12-01] MEDS: Gabapentin 400 MG CAPSULE PO ×3 (09:10→21:08)
[2023-12-01] MEDS: Cyclobenzaprine HCl 10 MG TABLET PO ×2 (09:10→17:16)
[2023-12-01] MEDS: Acetaminophen 325 MG TABLET 650 MG PO (09:18)
[2023-12-01] MEDS: Nicotine 14 MG PATCH.TD24 TRANSDERMA (09:18)
--- NOTE | 2023-12-01 09:40 | P.PNIM_ITS ---
Subjective Subjective Date of Service: 12/01/23 Interval History: Seen and evaluated improving muscle pain all over body withdrawal symptoms controlled Worsening leukopenia no reported other events Review of Systems Review of Systems: Yes all other systems are reviewed and are negative Physical Exam 2 Vital Signs: Vital Signs: Last Vital Signs Temp 97.2 F 12/01/23 08:25 Pulse 73 12/01/23 08:25 Resp 17 12/01/23 08:25 BP 110/55 L 12/01/23 08:25 Pulse Ox 95 12/01/23 08:25 O2 Del Method Room Air 12/01/23 08:25 BMI result Body Mass Index 47.4 Const: Other: Constitutional : Alert and interactive, obese, mildly anxious Neck : Normal inspection, Supple Cardiovascular : RRR, no JVP, no lower extremity edema Respiratory : good bilateral air entry, no crackles, wheezes or rhonchi Gastrointestinal: soft, lax, Normal bowel sounds, Non tender Skin : Warm, Dry, Neurological : Alert and interactive, oriented x3, moving all extremities Objective Data Active Medications Acetaminophen (Acetaminophen 325 Mg Tablet) 650 mg PO Q6H PRN PRN Reason: Pain, Mild (Pain Scale 1-3) Last Admin: 12/01/23 09:18 Dose: 650 mg Documented By: ALBERTO Aspirin (Aspirin 81 Mg Tab.Chew) 81 mg PO DAILY [facility] Last Admin: 12/01/23 09:09 Dose: 81 mg Documented By: ALBERTO Benzonatate (Benzonatate 100 Mg Capsule) 100 mg PO TID PRN PRN Reason: Cough Cyclobenzaprine HCl (Cyclobenzaprine Hcl 10 Mg Tablet) 10 mg PO TID PRN PRN Reason: spasm Last Admin: 12/01/23 09:10 Dose: 10 mg Documented By: ALBERTO Diazepam (Diazepam 5 Mg Tablet) 15 mg PO ONCE [facility] Last Admin: 11/28/23 20:54 Dose: 15 mg Documented By: FELA Diazepam (Diazepam 5 Mg Tablet) 5 mg PO TID PRN PRN Reason: Anxiety Last Admin: 12/01/23 09:10 Dose: 5 mg Documented By: ALBERTO Docusate Sodium (Docusate Sodium 100 Mg Capsule) 100 mg PO DAILY PRN PRN Reason: Constipation Duloxetine HCl (Duloxetine Hcl 60 Mg Capsule.Dr) 60 mg PO BID [facility] Last Admin: 12/01/23 09:09 Dose: 60 mg Documented By: ALBERTO Enoxaparin Sodium (Enoxaparin Sodium 40 Mg/0.4 Ml Syringe) 40 mg SUBCUT Q24H [facility] Last Admin: 12/01/23 00:08 Dose: Not Given Documented By: CARMEN Non-Admin Reason: Patient Refused Gabapentin (Gabapentin 400 Mg Capsule) 400 mg PO TID@0900,1700,2100 [facility] Last Admin: 12/01/23 09:10 Dose: 400 mg Documented By: ALBERTO Hydroxyzine HCl (Hydroxyzine Hcl 50 Mg Tablet) 50 mg PO Q6H PRN PRN Reason: Anxiety Last Admin: 11/30/23 19:44 Dose: 50 mg Documented By: CARMEN Lactated Ringer's (Lr) 1,000 mls @ 150 mls/hr IVCONT .Q6H40M [facility] Last Admin: 12/01/23 03:49 Dose: 150 mls/hr Documented By: CARMEN Lactulose (Lactulose 20 Gm/30 Ml Solution) 30 gm PO DAILY@0600 [facility] Last Admin: 12/01/23 05:36 Dose: Not Given Documented By: CARMEN Non-Admin Reason: Patient Refused Melatonin (Melatonin 3 Mg Tablet) 6 mg PO BEDTIME PRN PRN Reason: Insomnia Last Admin: 11/30/23 22:21 Dose: 6 mg Documented By: CARMEN Methadone HCl (Methadone Hcl 20 Mg/2 Ml Oral.Conc) 80 mg PO DAILY [facility] Last Admin: 12/01/23 09:09 Dose: 80 mg Documented By: ALBERTO Methadone HCl (Methadone Hcl 20 Mg/2 Ml Oral.Conc) 70 mg PO DAILY@1300 [facility] Last Admin: 11/30/23 13:11 Dose: 70 mg Documented By: ALBERTO Morphine Sulfate (Morphine Sulfate 4 Mg/Ml Cartridge) 4 mg IVPUSH Q4H PRN; Protocol PRN Reason: Pain, Severe (Pain Scale 7-10) Last Admin: 12/01/23 03:55 Dose: 4 mg Documented By: CARMEN Nicotine (Nicotine 14 Mg Patch.Td24) 14 mg TRANSDERMA DAILY [facility] Last Admin: 12/01/23 09:18 Dose: 14 mg Documented By: ALBERTO Nicotine Polacrilex (Nicotine Polacrilex 2 Mg Gum) 2 mg BUCCAL Q2H PRN PRN Reason: Nicotine Cravings Last Admin: 12/01/23 09:10 Dose: 2 mg Documented By: ALBERTO Ondansetron HCl (Ondansetron Hcl 4 Mg/2 Ml Vial) 4 mg IVPUSH Q8H PRN PRN Reason: Nausea and Vomiting Last Admin: 11/30/23 19:44 Dose: 4 mg Documented By: CARMEN Sodium Chloride (0.9 % Sodium Chloride Flush 3 Ml Syringe) 3 ml IVFLUSH QSHIFT EDER Last Admin: 12/01/23 08:48 Dose: Not Given Documented By: ALBERTO Non-Admin Reason: IV Running Labs 12/01/23 05:39 12/01/23 05:39 Labs: Laboratory Results - last 24 hr 11/30/23 12/01/23 10:39 05:39 MCV 91.6 92.3 MCH 30.5 29.2 MCHC 33.3 31.6 RDW 12.5 12.5 Plt Count 72 L 194 D MPV 10.3 11.4 Absolute Nucleated RBC 0.000 0.000 Nucleated RBC % (auto) 0.0 0.0 Anion Gap 9 L Estim Creat Clear Calc 160.4 Estimated GFR > 60 Random Glucose 147 H Calcium 8.9 Total Creatine Kinase 5336 H Microbiology Microbiology Results: Microbiology 11/28/23 22:14 Urine Culture - Final Urine clean catch - Urine sheth top Assessment and Plan (1) Opiate use: Status: Acute (2) Weakness: Status: Acute (3) Cocaine use: Status: Acute (4) Rhabdomyolysis: Status: Acute (5) Leucopenia: Status: Acute Plan Pt is a 43-year-old female with a PMH significant for?polysubstance use disorder, IVDU, hepatitis-C that failed outpatient therapy, bipolar 1 disorder, and depression who presents to the ED for evaluation of lower back pain and extremity weakness. Pt will be admitted to the hospital for treatment and further evaluation of acute rhabdomyolysis likely secondary to cocaine use. Muscle pain 2/2 Acute Rhabdomyolysis from Cocaine abuse trending down to 5000 Continue IVF Follow CPK, BMP morphine 4 mg Q 4 for pain management for now PT consult Polysubstance use disorder Patient reports injecting 40-50 bags of heroin and $400 worth of cocaine in the past 24 hours since discharge from [facility] psychiatry unit Morphine q.4h for now continue methadone Addiction medicine consult Mood disorder Continue home meds Patient released yesterday from [facility] psychiatry unit Currently denies SI Psychiatry input appreciated, no intervention now, STR then inpatient program if she is interested Hepatitis-C Failed initial outpatient treatment Continue lactulose Leukopenia Noted on prev admissions; related to drug abuse and chronic hep C inf No signs of infection at this point tested negative for HIV prev. Continue to monitor closely Thrombocytopenia resolved Full Code DVT Prophylaxis: Lovenox Pt will require a hospitalization overnight for treatment of?acute cocaine induced rhabdomyolysis. Due to patient's inability to ambulate secondary to globalized weakness and pain, patient will require hospitalization for administration of aggressive IV fluid resuscitation and close monitoring of kidney function and electrolytes. Quality Stroke Does the patient have a stroke diagnosis?: No VTE Prior VTE?: No VTE Risk Level:: Medical - moderate - high VTE Device Contraindication: Treatment Not Indicated VTE Drug Contraindication: N/A - Med Ordered
--- NOTE | 2023-12-01 12:16 | P.CDIM_ITS ---
PROVIDER RESPONSE TEXT: To clarify, the appropriate diagnosis supported by the clinical indicators: Severe or Morbid Obesity QUERY TEXT: PHYSICIAN'S DOCUMENTATION REQUEST Date of Query: 11/30/2023 04:05 PM EDT Patient Name: Carlota Sebastian Admit Date: 11/29/2023 Dear Nathan Gomes, A review of the medical record indicates additional documentation may be needed. Please review below and update the documentation accordingly. Clinical Indicators: Nursing Height and Weight: Extreme obesity BMI 47.4kg 129.1kg If possible, please provide an associated diagnosis related to the abnormal BMI, such as: Obesity Due to excess calories Obesity Due to other cause Specify the other cause Severe or Morbid Obesity Other (explain) Clinically unable to determine (explain) Thank you, Namita Shen, CCS, CDIS Use of terms such as suspected, likely, concern for, or probable (associated with a specific diagnosi s that is being evaluated, monitored, or treated as if it exists) are acceptable and can be coded in the inpatient se tting, when documented at the time of discharge. Please use your independent medical judgment in providing your response. THIS QUERY IS PART OF THE PERMANENT MEDICAL RECORD
--- NOTE | 2023-12-01 12:16 | P.CDIM_ITS ---
PROVIDER RESPONSE TEXT: To clarify, the appropriate diagnosis supported by the clinical indicators: Chronic stable condition QUERY TEXT: PHYSICIAN'S DOCUMENTATION REQUEST Date of Query: 11/30/2023 04:13 PM EDT Patient Name: Carlota Sebastian Admit Date: 11/29/2023 Dear Nathan Gomes, A review of the medical record indicates additional documentation may be needed. Please review below and update the documentation accordingly. Clinical Indicators: Progress notes under Plan: Hepatitis-C Failed initial outpatient treatment Continue lactulose Polysubstance abuse, reports injecting 40-50 bags of heroin and cocaine in past 24 hours. Labs significant for bilirubin, 1.2, AST 204, ALT 66, alk-phos 130, and CPK 19,871. Clarify which of the following accurately represents the acuity of the Hepatitis C. Possible options might include: Acute Acute on chronic Chronic stable condition Remission Other (explain) Clinically unable to determine (explain) Thank you, Namita Shen, CCS, CDIS Use of terms such as suspected, likely, concern for, or probable (associated with a specific diagnosi s that is being evaluated, monitored, or treated as if it exists) are acceptable and can be coded in the inpatient se tting, when documented at the time of discharge. Please use your independent medical judgment in providing your response. THIS QUERY IS PART OF THE PERMANENT MEDICAL RECORD
[2023-12-01] MEDS: methADONE HCl 20 MG/2 ML ORAL.CONC 70 MG PO (13:02)
[2023-12-01] MEDS: hydrOXYzine HCL 50 MG TABLET PO ×2 (13:02→21:08)
[2023-12-01 15:47] VITALS: BP 143/67; PULSE 72; RESP 18; TEMP 36.2; O2SAT 96
[2023-12-01 19:45] VITALS: BP 143/77; PULSE 75; RESP 18; TEMP 36; O2SAT 95
[2023-12-02] MEDS: Lactated Ringers 1,000 ML 150 ML IVCONT ×2 (00:36→08:30)
[2023-12-02] MEDS: Morphine Sulfate 4 MG/ML CARTRIDGE IVPUSH ×4 (01:20→17:35)
[2023-12-02 01:50] VITALS: RESP 18
[2023-12-02 03:21] VITALS: BP 132/73; PULSE 82; RESP 18; TEMP 36.7; O2SAT 94
[2023-12-02 06:00] LABS: Anion Gap 10 (12-20); Blood Urea Nitrogen 5 mg/dL (9-16); Calcium 9.4 mg/dL (8.4-10.2); Carbon Dioxide 30 mmol/L (22-29); Chloride 105 mmol/L (96-108); Creatinine Clr Calc Pharmacy 165.9; Estimated Glomerular Filt Rate > 60; Glucose Random 149 mg/dL (60-115); Potassium 3.7 mmol/L (3.3-5.1); Sodium 141 mmol/L (135-145)
[2023-12-02 07:43] VITALS: BP 130/75; PULSE 80; RESP 18; TEMP 36.6; O2SAT 95
[2023-12-02] MEDS: Gabapentin 400 MG CAPSULE PO ×3 (08:29→21:26)
[2023-12-02] MEDS: Nicotine 14 MG PATCH.TD24 TRANSDERMA (08:29)
[2023-12-02] MEDS: DULoxetine HCl 60 MG CAPSULE.DR PO ×2 (08:29→21:26)
[2023-12-02] MEDS: Aspirin 81 MG TAB.CHEW PO (08:29)
[2023-12-02] MEDS: methADONE HCl 20 MG/2 ML ORAL.CONC 80 MG PO (08:30)
[2023-12-02] MEDS: 0.9 % Sodium Chloride Flush 3 ML SYRINGE IVFLUSH ×2 (08:30→17:19)
[2023-12-02] MEDS: hydrOXYzine HCL 50 MG TABLET PO ×3 (08:42→21:34)
[2023-12-02] MEDS: Cyclobenzaprine HCl 10 MG TABLET PO ×2 (08:43→17:32)
[2023-12-02] MEDS: Nicotine Polacrilex 2 MG GUM BUCCAL ×4 (08:43→21:35)
[2023-12-02] MEDS: diazePAM 5 MG TABLET PO ×2 (08:43→17:33)
--- NOTE | 2023-12-02 10:06 | P.PNIM_ITS ---
Subjective Subjective Date of Service: 12/02/23 Interval History: no complaints Physical Exam 2 Vital Signs: Vital Signs: Last Vital Signs Temp 97.8 F 12/02/23 07:43 Pulse 80 12/02/23 07:43 Resp 18 12/02/23 07:43 BP 130/75 12/02/23 07:43 Pulse Ox 95 12/02/23 07:43 O2 Del Method Room Air 12/02/23 07:43 BMI result Body Mass Index 47.4 Const: Other: Constitutional : Alert and interactive, obese, mildly anxious Neck : Normal inspection, Supple Cardiovascular : RRR, no JVP, no lower extremity edema Respiratory : good bilateral air entry, no crackles, wheezes or rhonchi Gastrointestinal: soft, lax, Normal bowel sounds, Non tender Skin : Warm, Dry, Neurological : Alert and interactive, oriented x3, moving all extremities Objective Data Active Medications Acetaminophen (Acetaminophen 325 Mg Tablet) 650 mg PO Q6H PRN PRN Reason: Pain, Mild (Pain Scale 1-3) Last Admin: 12/01/23 09:18 Dose: 650 mg Documented By: ALBERTO Aspirin (Aspirin 81 Mg Tab.Chew) 81 mg PO DAILY [facility] Last Admin: 12/02/23 08:29 Dose: 81 mg Documented By: DAVE Benzonatate (Benzonatate 100 Mg Capsule) 100 mg PO TID PRN PRN Reason: Cough Cyclobenzaprine HCl (Cyclobenzaprine Hcl 10 Mg Tablet) 10 mg PO TID PRN PRN Reason: spasm Last Admin: 12/02/23 08:43 Dose: 10 mg Documented By: DAVE Diazepam (Diazepam 5 Mg Tablet) 15 mg PO ONCE [facility] Last Admin: 11/28/23 20:54 Dose: 15 mg Documented By: FELA Diazepam (Diazepam 5 Mg Tablet) 5 mg PO TID PRN PRN Reason: Anxiety Last Admin: 12/02/23 08:43 Dose: 5 mg Documented By: DAVE Docusate Sodium (Docusate Sodium 100 Mg Capsule) 100 mg PO DAILY PRN PRN Reason: Constipation Duloxetine HCl (Duloxetine Hcl 60 Mg Capsule.Dr) 60 mg PO BID [facility] Last Admin: 12/02/23 08:29 Dose: 60 mg Documented By: DAVE Enoxaparin Sodium (Enoxaparin Sodium 40 Mg/0.4 Ml Syringe) 40 mg SUBCUT Q24H [facility] Last Admin: 12/01/23 22:45 Dose: Not Given Documented By: ALBERTO Non-Admin Reason: Patient Refused Gabapentin (Gabapentin 400 Mg Capsule) 400 mg PO TID@0900,1700,2100 [facility] Last Admin: 12/02/23 08:29 Dose: 400 mg Documented By: DAVE Hydroxyzine HCl (Hydroxyzine Hcl 50 Mg Tablet) 50 mg PO Q6H PRN PRN Reason: Anxiety Last Admin: 12/02/23 08:42 Dose: 50 mg Documented By: DAVE Lactated Ringer's (Lr) 1,000 mls @ 150 mls/hr IVCONT .Q6H40M [facility] Last Admin: 12/02/23 08:30 Dose: 150 mls/hr Documented By: DAVE Lactulose (Lactulose 20 Gm/30 Ml Solution) 30 gm PO DAILY@0600 [facility] Last Admin: 12/02/23 06:19 Dose: Not Given Documented By: KAYLEE Non-Admin Reason: Patient Refused Melatonin (Melatonin 3 Mg Tablet) 6 mg PO BEDTIME PRN PRN Reason: Insomnia Last Admin: 11/30/23 22:21 Dose: 6 mg Documented By: CARMEN Methadone HCl (Methadone Hcl 20 Mg/2 Ml Oral.Conc) 80 mg PO DAILY [facility] Last Admin: 12/02/23 08:30 Dose: 80 mg Documented By: DAVE Methadone HCl (Methadone Hcl 20 Mg/2 Ml Oral.Conc) 70 mg PO DAILY@1300 [facility] Last Admin: 12/01/23 13:02 Dose: 70 mg Documented By: ALBERTO Morphine Sulfate (Morphine Sulfate 4 Mg/Ml Cartridge) 4 mg IVPUSH Q4H PRN; Protocol PRN Reason: Pain, Severe (Pain Scale 7-10) Last Admin: 12/02/23 08:42 Dose: 4 mg Documented By: DAVE Nicotine (Nicotine 14 Mg Patch.Td24) 14 mg TRANSDERMA DAILY [facility] Last Admin: 12/02/23 08:29 Dose: 14 mg Documented By: DAVE Nicotine Polacrilex (Nicotine Polacrilex 2 Mg Gum) 2 mg BUCCAL Q2H PRN PRN Reason: Nicotine Cravings Last Admin: 12/02/23 08:43 Dose: 2 mg Documented By: DAVE Ondansetron HCl (Ondansetron Hcl 4 Mg/2 Ml Vial) 4 mg IVPUSH Q8H PRN PRN Reason: Nausea and Vomiting Last Admin: 11/30/23 19:44 Dose: 4 mg Documented By: CARMEN Sodium Chloride (0.9 % Sodium Chloride Flush 3 Ml Syringe) 3 ml IVFLUSH QSHIFT [facility] Last Admin: 12/02/23 08:30 Dose: 3 ml Documented By: DAVE Labs 12/01/23 05:39 12/02/23 05:26 Labs: Laboratory Results - last 24 hr 12/02/23 05:26 Hold Purple Top SEE NOTE Anion Gap 10 L Estim Creat Clear Calc 165.9 Estimated GFR > 60 Random Glucose 149 H Calcium 9.4 Total Creatine Kinase 2069 H Assessment and Plan (1) Opiate use: Status: Acute (2) Weakness: Status: Acute (3) Cocaine use: Status: Acute (4) Rhabdomyolysis: Status: Acute (5) Leucopenia: Status: Acute Plan 43F PMH significant for?polysubstance use disorder, IVDU, hepatitis-C that failed outpatient therapy, bipolar 1 disorder, and depression who presented to the ED for evaluation of lower back pain and extremity weakness. admitted to the hospital for treatment and further evaluation of acute rhabdomyolysis likely secondary to cocaine use. Muscle pain 2/2 Acute Rhabdomyolysis from Cocaine abuse resolved Polysubstance use disorder Patient reports injecting 40-50 bags of heroin and $400 worth of cocaine in the past 24 hours since discharge from [facility] unit continue methadone Addiction medicine following Mood disorder Continue home meds Currently denies SI Psychiatry input appreciated, no intervention now, STR then inpatient program if she is interested Hepatitis-C Failed initial outpatient treatment Leukopenia Noted on prev admissions; related to drug abuse and chronic hep C inf No signs of infection at this point tested negative for HIV prev. Continue to monitor closely Thrombocytopenia resolved Full Code DVT Prophylaxis: Lovenox reason for continued hospitalization:awaiting placement Quality Stroke Does the patient have a stroke diagnosis?: No VTE Prior VTE?: No VTE Risk Level:: Medical - moderate - high VTE Device Contraindication: Treatment Not Indicated VTE Drug Contraindication: N/A - Med Ordered
--- NOTE | 2023-12-02 10:14 | PM.DS ---
DS: Providers Provider Date of Service: 12/03/23 Date of admission: 11/28/23 23:22 Primary care physician: Unknown Physician Consults: 11/28/23 23:22 Addiction Medicine Routine Consulting Provider: Addiction Covering Reason for consultation: Cocaine and opioid use disorder 11/29/23 13:50 Consult to Psychiatry Routine Consulting Provider: Psych Covering Reason for consultation: Depression, drug abuse, recent discharge from 11/30/23 12:18 Consult to Wound Care Routine Reason for consultation: Scratch to right buttock. DS: Diagnosis Discharge Diagnosis (1) Opiate use: Status: Acute (2) Weakness: Status: Acute (3) Cocaine use: Status: Acute (4) Rhabdomyolysis: Status: Acute (5) Leucopenia: Status: Acute DS: Summary Hospital Course Hospital Course: from initial hpi: 43-year-old female with a PMH significant for?polysubstance use disorder, IVDU, hepatitis-C that failed outpatient therapy, bipolar 1 disorder, and depression who presents to the ED for evaluation of lower back pain and extremity weakness. Patient was just discharged yesterday from Psychiatry after a stay from -11/25 for increased depression and hopelessness with SI. Patient reports after discharge she had a ?relapse? and over the next 24 hours injected 40-50 bags of heroin and $400 worth of cocaine. Last used at around 11:00 this morning when patient found that she no longer was able to walk secondary to weakness and pain. Was able to crawl out of the apartment she was in into the hallway where another resident found her and called EMS. Patient complains of global musculoskeletal pain, though particularly in her lower back and legs. Also complains of global musculoskeletal weakness especially in her legs. Of note, patient has had multiple presentations to the hospital for similar symptoms in the past. Denies fever, chills, nausea, vomiting. No chest pain/pressure, palpitations. Denies shortness of breath, cough. Currently denies any thoughts of self harm, saying she already has though her recent drug use. In the ED pt had elevated heart rate to 92 and soft BP as low as 110/47. Labs were significant for bilirubin 1.2, AST 204, ALT 66, alk-phos 130, and CPK 19,871. UA likely contaminated, showing moderate leukocyte esterase, negative nitrites, 6-10 wbc's, and 11-20 squamous epithelial cells. Tox screen positive for opiates, fentanyl, benzos, and cocaine. Tested negative for influenza, RSV, and COVID. Pt was treated with IVF, diazepam, and ketorolac. Pt will be admitted to the hospital for treatment and further evaluation of acute rhabdomyolysis likely secondary to cocaine use. hospital course: Patient was admitted for myalgias due to acute rhabdomyolysis from cocaine abuse. She was treated with aggressive IV hydration and CPK improved significantly urinalysis wrist. For polysubstance dependence she was seen by [facility] and continued on opiate replacement therapy. For mood disorder was continue home meds, she currently denies suicidal ideation. For hepatitis-C she failed outpatient treatment and will continue follow patient. For chronic leukopenia and thrombocytopenia likely due to HCV she will continue follow up outpatient. Patient is feeling better will be discharged to nursing home facility. Expected require less than 30 days there. Time Attestation Discharge Coordination Time (in mins): 35 Quality: Safe Use of Opioids Does Pt have an Active Cancer Diagnosis on the Problem List?: No Quality: Stroke Does the patient have a stroke diagnosis?: No Physical Exam Vital Signs: Vital Signs: Last Vital Signs Temp 97.8 F 12/02/23 07:43 Pulse 80 12/02/23 07:43 Resp 18 12/02/23 07:43 BP 130/75 12/02/23 07:43 Pulse Ox 95 12/02/23 07:43 O2 Del Method Room Air 12/02/23 07:43 BMI result Body Mass Index 47.4 Const: Other: Constitutional : Alert and interactive, obese, mildly anxious Neck : Normal inspection, Supple Cardiovascular : RRR, no JVP, no lower extremity edema Respiratory : good bilateral air entry, no crackles, wheezes or rhonchi Gastrointestinal: soft, lax, Normal bowel sounds, Non tender Skin : Warm, Dry, Neurological : Alert and interactive, oriented x3, moving all extremities DS: Data Data Completed and Pending Completed studies during hospitalization [Text1]: Procedures Detoxification Services for Substance Abuse Treatment (11/27/22) Drainage of Right Upper Arm Subcutaneous Tissue and Fascia, Open Approach (04/03/21) Insertion of Infusion Device into Left Basilic Vein, Percutaneous Approach (04/21/21) Insertion of Infusion Device into Left Brachial Vein, Percutaneous Approach (01/03/21) Insertion of Infusion Device into Lower Vein, Percutaneous Approach (11/27/22) Labs on day of discharge: Laboratory Results - last 24 hr 12/02/23 05:26 Hold Purple Top SEE NOTE Sodium 141 Potassium 3.7 Chloride 105 Carbon Dioxide 30 H Anion Gap 10 L BUN 5 L Creatinine 0.58 Estim Creat Clear Calc 165.9 Estimated GFR > 60 Random Glucose 149 H Calcium 9.4 Total Creatine Kinase 2069 H Discharge Plan Discharge Anticipated Discharge Date/Time: 12/02/23 10:12 Patient Disposition: Xfer SNF Discharge Diagnosis: rhabdo Referrals: Physician,Unknown J [Primary Care Provider] - 1 Week Discharge Medications: Continued methadone [Methadose] 10 mg/mL concentrate 80 mg PO DAILY Patient Comments: Split dose 150mg total, 80mg @ 0900, 70 mg @ 1300 duloxetine 60 mg capsule,delayed release(DR/EC) 60 mg PO BID gabapentin 400 mg Capsule 400 mg PO TID@0900,1700,2100 methadone [Methadose] 10 mg/mL Concentrate 70 mg PO DAILY@1300 diazepam 5 mg tablet 5 mg PO TID PRN (Reason: Anxiety) spironolactone 50 mg tablet 50 mg PO DAILY 30 Days Qty: 30 0RF aspirin 81 mg Tablet,Chewable 81 mg PO DAILY 30 Days Qty: 30 0RF lactulose 20 gram/30 mL Solution 30 g PO DAILY@0600 30 Days Qty: 1350 0RF propranolol 10 mg tablet 20 mg PO BID hydroxyzine HCl 25 mg tablet 25 mg PO TID propranolol 10 mg tablet 20 mg PO TID Discharge Orders: Discharge Order (Routine); Ordered 12/03/23 Ordered By: Rubin Saeed Diet: Advance to usual diet Activity on Discharge: As tolerated Stand Alone Forms: Patient Portal Discharge page Care Plan Goals: recovery Health Concerns: rhabdo Plan of Treatment: rehab Assessment: see above
--- NOTE | 2023-12-02 12:35 | MHC.CM.PN ---
Message sent via Mama to [facility] re split doses Methadone. They do not accept split doses. The Liason stated that the dose must be combined. The message was sent to the Addiction Medicine Team.
[2023-12-02] MEDS: methADONE HCl 20 MG/2 ML ORAL.CONC 70 MG PO (12:59)
--- NOTE | 2023-12-02 13:35 | MHC.CM.PN ---
EMR reviewed. Per MD rounds patient is medically cleared for dc. Bed offer from [facility], awaiting guest dosing. Recovery team is working with facility/pharmacy to get split dosing approved. CM will continue to follow.
[2023-12-02 15:44] VITALS: BP 150/80; PULSE 75; RESP 18; TEMP 36.6; O2SAT 94
--- NOTE | 2023-12-02 16:57 | P.EN_ITS ---
Event Note Date of Service: 12/02/23 Event Note: Addiction note: Patient pending discharge/placement to [facility] facility. Per CM, facility requesting patients current BID dose of methadone be consolidated to once daily dosing. t/w called and spoke to Madelyn Sandhu at [facility], who reported it is the OTP ([facility]) who requests dose be consolidated for guest dosing. cans vacuum tester spoke with [facility] OTP who stated it was not in their contract to provide BID dosing, however they would pass along our concerns to their Director to follow up with us. During this time, t/w emailed long term care administrator at [facility] who confirmed that split dosing could be arranged, and is happening at some SNFs and Director of intake is aware of this patient and ion process of arranging this. [facility] team to follow up when completed. Time Spent With Patient Time: Total time managing care of this patient today ____ minutes.
--- NOTE | 2023-12-02 16:57 | PM.EVENT ---
Event Note Date of Service: 12/02/23 Event Note: Addiction note: Patient pending discharge/placement to [facility] facility. Per CM, facility requesting patients current BID dose of methadone be consolidated to once daily dosing. t/w called and spoke to Madelyn Sandhu at [facility], who reported it is the OTP ([facility]) who requests dose be consolidated for guest dosing. licensed therapist spoke with [facility] who stated it was not in their contract to provide BID dosing, however they would pass along our concerns to their Director to follow up with us. During this time, t/w emailed county administrator at [facility] who confirmed that split dosing could be arranged, and is happening at some SNFs and Director of intake is aware of this patient and ion process of arranging this. [facility] team to follow up when completed. Time Spent With Patient Time: Total time managing care of this patient today ____ minutes.
--- NOTE | 2023-12-02 17:33 | PC.NURSE ---
patient reports feeling anxious,requested Valium,administered as ordered
[2023-12-02 19:29] VITALS: BP 135/76; PULSE 77; RESP 18; TEMP 36.1; O2SAT 94
--- NOTE | 2023-12-02 21:28 | PC.NURSE ---
Patient requested Atarax for anxiety
[2023-12-03] MEDS: 0.9 % Sodium Chloride Flush 3 ML SYRINGE IVFLUSH ×2 (00:21→09:39)
[2023-12-03] MEDS: Nicotine Polacrilex 2 MG GUM BUCCAL ×2 (01:00→09:48)
[2023-12-03] MEDS: Melatonin 3 MG TABLET 6 MG PO (01:00)
[2023-12-03] MEDS: Morphine Sulfate 4 MG/ML CARTRIDGE IVPUSH ×2 (01:01→09:47)
[2023-12-03] MEDS: diazePAM 5 MG TABLET PO ×2 (01:01→10:57)
[2023-12-03 03:53] VITALS: BP 124/63; PULSE 78; RESP 16; TEMP 36.2; O2SAT 93
[2023-12-03 07:36] VITALS: BP 131/71; PULSE 80; RESP 17; TEMP 36.2; O2SAT 95
[2023-12-03] MEDS: Aspirin 81 MG TAB.CHEW PO (09:38)
[2023-12-03] MEDS: methADONE HCl 20 MG/2 ML ORAL.CONC 80 MG PO (09:38)
[2023-12-03] MEDS: DULoxetine HCl 60 MG CAPSULE.DR PO (09:38)
[2023-12-03] MEDS: Nicotine 14 MG PATCH.TD24 TRANSDERMA (09:38)
[2023-12-03] MEDS: Gabapentin 400 MG CAPSULE PO (09:38)
[2023-12-03] MEDS: Cyclobenzaprine HCl 10 MG TABLET PO (09:47)
[2023-12-03] MEDS: Acetaminophen 325 MG TABLET 650 MG PO (09:47)
[2023-12-03] MEDS: hydrOXYzine HCL 50 MG TABLET PO (09:48)
--- NOTE | 2023-12-03 10:25 | MHC.CM.PN ---
EMR REVIEWED. PER MD ROUNDS PATIENT IS MEDICALLY CLEARED FOR DC TO STR AT [facility]. GUEST DOSING W/ SPLIT DOSE HAS BEEN APPROVED BY [facility]. BLS TRANSPORTATION SCHEDULED FOR 12PM. PATIENT, MD AND RN AWARE.
[2023-12-03] MEDS: methADONE HCl 20 MG/2 ML ORAL.CONC 70 MG PO (11:49)
== END 2023-12-03 12:12 | disposition skilled nursing facility (03) | DRG 816 ==
LOC: HO.ED 22:23 → HO.EDOVER 23:44 → HO.S3 11-29 23:46
PROVIDERS: Student in an Organized Health Care Education/Training Program; Admitting Provider Student in an Organized Health Care Education/Training Program; Emergency Provider Emergency Medicine Emergency Medical Services; Visit Provider Internal Medicine
DX: T40.5X1A Poisoning by cocaine, accidental (unintentional), initial encounter (principal); M62.82 Rhabdomyolysis; D69.59 Other secondary thrombocytopenia; F11.20 Opioid dependence, uncomplicated; F17.210 Nicotine dependence, cigarettes, uncomplicated; F14.10 Cocaine abuse, uncomplicated; B18.2 Chronic viral hepatitis C; F32.A Depression, unspecified; E66.01 Morbid (severe) obesity due to excess calories; Z68.42 Body mass index [BMI] 45.0-49.9, adult; F19.20 Other psychoactive substance dependence, uncomplicated; Z20.822 Contact with and (suspected) exposure to COVID-19; Z71.6 Tobacco abuse counseling; Z79.82 Long term (current) use of aspirin; Z79.899 Other long term (current) drug therapy
CPT/HCPCS: 0241U; 36415; 80048; 80053; 80307; 81001; 82140; 82550; 83690; 85025; 85027; 85652; 85730; 86140; 87086; 97162; 99285; J1885; J2270; J2405; J7120

== ENCOUNTER → 2023-11-28 23:22 | Outpatient (BNV) | payer OTHER, SELFPAY | PROVIDERS: Admitting Provider Student in an Organized Health Care Education/Training Program; Emergency Provider Emergency Medicine Emergency Medical Services; Visit Provider Student in an Organized Health Care Education/Training Program | DX: F11.90 Opioid use, unspecified, uncomplicated (principal); M62.82 Rhabdomyolysis; D72.819 Decreased white blood cell count, unspecified; F14.90 Cocaine use, unspecified, uncomplicated; R53.1 Weakness | CPT/HCPCS: 99223; 99231; 99233; 99239 ==

== ENCOUNTER → 2023-11-28 23:22 | Outpatient (BNV) | payer OTHER, SELFPAY | PROVIDERS: Admitting Provider Student in an Organized Health Care Education/Training Program; Emergency Provider Emergency Medicine Emergency Medical Services; Visit Provider Psychiatry & Neurology Psychiatry | DX: F32.1 Major depressive disorder, single episode, moderate (principal); F14.90 Cocaine use, unspecified, uncomplicated; F11.90 Opioid use, unspecified, uncomplicated; M62.82 Rhabdomyolysis | CPT/HCPCS: 99222; 99232; 99499 ==

== ENCOUNTER 2023-12-25 07:25 | Emergency (ER) | payer OTHER, SELFPAY ==
[2023-12-25] VITALS (7 sets, daily range): BP systolic 98–146; BP diastolic 42–106; PULSE 65–80; RESP 11–18; TEMP 36.4–36.5; O2SAT 96–99; BMI 49.4
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
--- NOTE | 2023-12-25 07:42 | ECG_ITS ---
Test Reason : fall Blood Pressure : / mmHG Vent. Rate : 072 BPM Atrial Rate : 072 BPM P-R Int : 178 ms QRS Dur : 090 ms QT Int : 446 ms P-R-T Axes : 061 021 044 degrees QTc Int : 488 ms Normal sinus rhythm Possible Inferior infarct (cited on or before 03-DEC-2022) Abnormal ECG When compared with ECG of 16-NOV-2023 22:37, No significant change was found Referred By: Savannah Delcid Electronically Signed By:BRANNON FRANKLIN MD
--- NOTE | 2023-12-25 07:46 | ED_ITS ---
HPI - General Adult General Chief complaint: Fall Stated complaint: MECHANICAL FALL + COLLAR Time Seen by Provider: 12/25/23 07:38 Source: patient and EMS Mode of arrival: EMS Limitations: other History of Present Illness HPI narrative: 43-year-old female history of obesity, opiate use disorder, cocaine use, rhabdomyolysis, depression, thrombocytopenia, bipolar, PTSD, IV drug abuse, toxic metabolic encephalopathy, hepatitis C presenting to the emergency department with a chief complaint of ?I think I have rhabdo?. Patient reports she was discharged yesterday from rehab after being there for 30 days, her entire time there she felt muscle soreness, today she says she has been falling multiple times, she is unable to tell me exactly how she falls, reports she is hit her head multiple times however unclear if he is lost consciousness. She was collared by EMS however took the collar off because it is uncomfortable, nursing went over risks of removing collar and she verbalizes understanding of these. Patient reports she just feels terrible. Not on blood thinners. EMS reports that she fell approximately 6 times after being discharged from the rehab patient poor historian Related Data Home Medications ?Medication ?Instructions ?Recorded ?Confirmed methadone 10 mg/mL oral 80 mg PO DAILY 06/16/22 11/29/23 concentrate (Methadose) duloxetine 60 mg capsule,delayed 60 mg PO BID 11/17/23 11/29/23 release gabapentin 400 mg capsule 400 mg PO TID@0900,1700,2100 11/17/23 11/29/23 methadone 10 mg/mL oral 70 mg PO DAILY@1300 11/17/23 11/29/23 concentrate (Methadose) diazepam 5 mg tablet 5 mg PO TID PRN Anxiety 11/18/23 11/29/23 hydroxyzine HCl 25 mg tablet 25 mg PO TID 11/30/23 propranolol 10 mg tablet 20 mg PO BID 11/30/23 propranolol 10 mg tablet 20 mg PO TID 11/30/23 Previous Rx's ?Medication ?Instructions ?Recorded aspirin 81 mg chewable tablet 81 mg PO DAILY 30 days #30 tabs 11/26/23 lactulose 20 gram/30 mL oral 30 g (45 mL) PO DAILY@0600 30 days 11/26/23 solution #1,350 mL spironolactone 50 mg tablet 50 mg PO DAILY 30 days #30 tabs 11/26/23 Allergies Allergy/AdvReac Type Severity Reaction Status Date / Time quetiapine [From SEROQUEL] Allergy Severe THROAT Verified 12/25/23 07:47 SWELLING azithromycin [AZITHROMYCIN] Allergy Unknown Unknown Verified 12/25/23 07:47 erythromycin base Allergy Unknown RASH Verified 12/25/23 07:47 [ERYTHROMYCIN BASE] olanzapine [From ZYPREXA] Allergy Unknown PEDAL EDEMA Verified 12/25/23 07:47 sulfacetamide Allergy Unknown Unknown Verified 12/25/23 07:47 [From Sulfacet-R] sulfamethoxazole Allergy Unknown ITCHING Verified 12/25/23 07:47 [From BACTRIM] sulfur [From Sulfacet-R] Allergy Unknown Unknown Verified 12/25/23 07:47 trimethoprim [From BACTRIM] Allergy Unknown ITCHING Verified 12/25/23 07:47 risperidone [From RISPERDAL] AdvReac Unknown TWITCHING Verified 12/25/23 07:47 seafood AdvReac Unknown Vomiting Verified 12/25/23 07:47 shellfish derived AdvReac Unknown VOMITING Verified 12/25/23 07:47 [SHELLFISH DERIVED] trazodone AdvReac restless Verified 12/25/23 07:47 legs Review of Systems 2 Review of Systems: Yes all other systems are reviewed and are negative PMFSH Past Medical History Attestation statement: The following information was validated with the patient. Source: old records reviewed and nursing notes reviewed Medical History Hepatitis C Depression Opioid dependence Leg pain, bilateral Rhabdomyolysis Opioid use disorder, moderate, in sustained remission, dependence Bipolar 1 disorder Substance abuse Substance abuse Back pain Opioid dependence Social History Social History Household Members: None Housing: Homeless Housing Other:: pt states displaced as in and out of facilities and treatment centers Do you presently have visiting nurse or other home services: No Unable to assess alcohol history related to: Unable to respond and Unknown Alcohol intake: former Comment: 1:1 sitter Patient Tobacco Use Status: Current everyday Tobacco user Tobacco use type: Cigarette Cigarette Packs Per Day: 0.5 Cigarettes Per Day: 10.0 Years Smoked: 29 Smoked in Last 30 Days: Yes e-Cigarette/Vaping Use: Currently Using Second Hand Smoke Exposure: No Use of substances other than those prescribed or required for medical reasons: Yes Substance Use Type: Heroin Last Used Substance: Just Prior to Admission Advance Directives: Yes Advance Directives on File: Yes Advance Directives Date on File: 12/28/20 Patient : No service: No Current occupational status: unemployed and disabled Sexual orientation: Straight/Heterosexual Physical Exam ED Vital Signs: Vital Signs - 24 hr 12/25/23 07:42 12/25/23 09:35 12/25/23 12:43 Temperature 97.7 F Pulse Rate 71 66 65 Respiratory Rate 18 16 11 L Blood Pressure 129/106 H 106/62 101/58 L Pulse Oximetry 98 99 98 Oxygen Delivery Method Room Air Room Air Room Air BMI result Body Mass Index 49.4 vss Appearance: Alert.? Oriented X3.? No acute distress.? Head: Normocephalic, atraumatic, no step-offs or deformities Eyes: Pupils equal, round and reactive to light.? CVS: Normal heart rate and rhythm.? Pulses normal.? Respiratory: No respiratory distress.? Breath sounds normal.? Abdomen: Soft and nontender.? Skin: Skin warm and dry.? Normal skin color.? Normal skin turgor.? Extremities: 3+ non pitting edema w/ overlying erythema and warmth.? No calf ttp. 5/5 strength to bilateral upper and lower extremities Back: No midline tenderness, no C-spine tenderness, full range of motion, no CVA tenderness bilaterally Neuro: Oriented X 3.? No motor deficit.? No sensory deficit. CN 2-12 intact Course Reevaluation(s) Reevaluation #1: Laboratory studies pending patient a very difficult stick multiple nurses have tried to obtain access however unsuccessful. CT head and cervical spine pending. Time: 09:47 Reevaluation #2: Again trying for labs. Not successful. UA no infection. Urine preg negative. Urine tox + for opiates, fentanyl, benzos and cocaine. Patient dozing off but maintaining airway. Time: 11:00 Reevaluation #3: Multiple call outs to phlebotomy --> no apperance Still no labs. Multiple techs, nurses, myself and my attending have triend and no labs yet. Time: 13:00 Additional Reevaluation(s): 0004 --> phlebotomy here requesting md to do a femoral stick for labs. My attending in the room. 1515 --> labs obtained but hemolyzed. 1539 Patient's CPK 2900 no signs of JOSEPHINE ( appears to be around baseline) ideally would give fluids however patient very difficult stick and reluctant to let us try again.. I did discuss the central line with patient and she is refusing at this time she tells me she is just hungry and thirsty and needs a break. Will allow her to take p.o. fluids. Sign out to Jayson FORRESTER Medications Administered Discontinued Medications Generic Name Dose Route Start Last Admin Trade Name Freq PRN Reason Stop Dose Admin Sodium Chloride 1,000 mls @ 999 mls/hr 12/25/23 08:45 12/25/23 12:13 Ns IV 12/25/23 09:45 Not Given .Q1H1M [facility] Sodium Chloride 1,000 mls @ 999 mls/hr 12/25/23 08:45 12/25/23 12:14 Ns IV 12/25/23 09:45 Not Given .Q1H1M [facility] Medical Decision Making Medical Decision Making MDM Narrative: 0750 43 year old female presents with with full body pain and frequent falls, was d/c from [facility] yesterday PE - diffuse muscle aches, ttp throught entire body 3+ non pitting edema w/ overlying erythema and warmth.? Concerns for metabolic derangements vs rhabdo. Unlikely ich, stroke, posterior storke, demyelinating disorder. Will rule out ETOH, and polysubstance abuse. Lower extremity erythema and warmth likely cellulitis unlikely arterial or venous occlusion no signs of neurovascular compromise or acute threat to limb. Plan- labs, ua, imaging Differential Diagnosis Differential Diagnoses: The differential diagnosis associated with the presentation includes Concerns for metabolic derangements vs rhabdo. Unlikely ich, stroke, posterior storke, demyelinating disorder. Will rule out ETOH, and polysubstance abuse. Lower extremity erythema and warmth likely cellulitis unlikely arterial or venous occlusion no signs of neurovascular compromise or acute threat to limb. Admission/Observation Consideration of admission/observation: Escalation of care including admission/observation considered Lab Data 12/25/23 15:49 12/25/23 15:08 Labs: Lab Results 12/25/23 12/25/23 12/25/23 Range/Units 08:05 08:06 14:41 WBC (4.8-10.8) X10*3/uL RBC (4.20-5.50) X10*6/uL Hgb (12.0-16.0) g/dl Hct (37.0-47.0) % MCV (80.0-98.0) fL MCH (27.0-33.0) pg MCHC (31.0-35.0) g/dl RDW (11.0-16.0) % Plt Count (160-400) X10*3/uL MPV (9.4-12.3) fL Immature Gran % (Auto) (0.0-0.4) % Neut % (Auto) (45-73) % Lymph % (Auto) (20-40) % Anderson % (Auto) (2-11) % Eos % (Auto) (0-4) % Baso % (Auto) (0-2) % Lymph # (Auto) (1.2-4.9) X10*3/uL Anderson # (Auto) (0.1-1.2) X10*3/uL Eos # (Auto) (0.0-0.4) X10*3/uL Baso # (Auto) (0.0-0.2) X10*3/uL Abs Immat Gran (auto) (0.00-0.03) X10*3/uL Absolute Neuts (auto) (2.0-8.3) x10*3/uL Absolute Nucleated RBC (0.0-0.012) X10*3/uL Nucleated RBC % (auto) (0.0-0.2) /100WBC Smear Tech's Comments Sodium (135-145) mmol/L Potassium (3.3-5.1) mmol/L Chloride (96-108) mmol/L Carbon Dioxide (22-29) mmol/L Anion Gap (12-20) BUN (9-16) mg/dL Creatinine (0.5-1.4) mg/dL Estim Creat Clear Calc Estimated GFR Random Glucose (60-115) mg/dL Calcium (8.4-10.2) mg/dL Magnesium (1.6-2.6) mg/dL Total Bilirubin (0.0-1.0) mg/dL AST (5-31) U/L ALT (0-31) U/L Alkaline Phosphatase (39-117) U/L Total Creatine Kinase (26-140) U/L Troponin I High Sens < 2.7 (<3.5-17.0) ng/L B-Natriuretic Peptide (<100) pg/mL Total Protein (6.5-8.0) g/dL Albumin (3.5-5.0) g/dL Urine Color Yellow Urine Appearance Clear Urine pH 6.5 (5.0-9.0) Ur Specific [place] 1.010 (1.005-1.025) Urine Protein Negative (Neg-Trace) mg/dL Urine Glucose (UA) Negative (Negative) mg/dL Urine Ketones Negative (Negative) mg/dL Urine Blood Negative (Negative) Urine Nitrite Negative (Negative) Ur Leukocyte Esterase Negative (Negative) Urine Test NEGATIVE (NEGATIVE) Urine Opiates Screen POSITIVE H (Not Detect) Urine Fentanyl Screen POSITIVE H (Not Detect) Ur Barbiturates Screen Not Detected (Not Detect) Ur Phencyclidine Scrn Not Detected (Not Detect) Ur Amphetamines Screen Not Detected (Not Detect) U Benzodiazepines Scrn POSITIVE H (Not Detect) Urine Cocaine Screen POSITIVE H (Not Detect) U Marijuana (THC) Screen Not Detected (Not Detect) 12/25/23 12/25/23 Range/Units 15:08 15:49 WBC 6.6 (4.8-10.8) X10*3/uL RBC 3.93 L (4.20-5.50) X10*6/uL Hgb 11.8 L D (12.0-16.0) g/dl Hct 35.6 L (37.0-47.0) % MCV 90.6 (80.0-98.0) fL MCH 30.0 (27.0-33.0) pg MCHC 33.1 (31.0-35.0) g/dl RDW 13.6 (11.0-16.0) % Plt Count 99 L D (160-400) X10*3/uL MPV 10.2 (9.4-12.3) fL Immature Gran % (Auto) 1.5 H (0.0-0.4) % Neut % (Auto) 39.6 L (45-73) % Lymph % (Auto) 37.0 (20-40) % Anderson % (Auto) 19.5 H (2-11) % Eos % (Auto) 1.8 (0-4) % Baso % (Auto) 0.6 (0-2) % Lymph # (Auto) 2.4 (1.2-4.9) X10*3/uL Anderson # (Auto) 1.3 H (0.1-1.2) X10*3/uL Eos # (Auto) 0.1 (0.0-0.4) X10*3/uL Baso # (Auto) 0.0 (0.0-0.2) X10*3/uL Abs Immat Gran (auto) 0.10 H (0.00-0.03) X10*3/uL Absolute Neuts (auto) 2.6 (2.0-8.3) x10*3/uL Absolute Nucleated RBC 0.000 (0.0-0.012) X10*3/uL Nucleated RBC % (auto) 0.0 (0.0-0.2) /100WBC Smear Tech's Comments VERIFIED Sodium 138 (135-145) mmol/L Potassium 4.3 (3.3-5.1) mmol/L Chloride 107 (96-108) mmol/L Carbon Dioxide 24 (22-29) mmol/L Anion Gap 11 L (12-20) BUN 11 (9-16) mg/dL Creatinine 0.58 (0.5-1.4) mg/dL Estim Creat Clear Calc 176.2 Estimated GFR > 60 Random Glucose 73 (60-115) mg/dL Calcium 8.9 (8.4-10.2) mg/dL Magnesium 2.3 (1.6-2.6) mg/dL Total Bilirubin 1.0 (0.0-1.0) mg/dL AST 83 H (5-31) U/L ALT 26 (0-31) U/L Alkaline Phosphatase 128 H (39-117) U/L Total Creatine Kinase 2900 H (26-140) U/L Troponin I High Sens (<3.5-17.0) ng/L B-Natriuretic Peptide 273 H (<100) pg/mL Total Protein 7.0 (6.5-8.0) g/dL Albumin 3.5 (3.5-5.0) g/dL Urine Color Urine Appearance Urine pH (5.0-9.0) Ur Specific [place] (1.005-1.025) Urine Protein (Neg-Trace) mg/dL Urine Glucose (UA) (Negative) mg/dL Urine Ketones (Negative) mg/dL Urine Blood (Negative) Urine Nitrite (Negative) Ur Leukocyte Esterase (Negative) Urine Test (NEGATIVE) Urine Opiates Screen (Not Detect) Urine Fentanyl Screen (Not Detect) Ur Barbiturates Screen (Not Detect) Ur Phencyclidine Scrn (Not Detect) Ur Amphetamines Screen (Not Detect) U Benzodiazepines Scrn (Not Detect) Urine Cocaine Screen (Not Detect) U Marijuana (THC) Screen (Not Detect) Critical Care Time Critical Care Time Critical Care Time: Yes Total Critical Care Time: 60 Attestation: I attest to this time spent taking care of the patient, obtaining history, physical, reviewing labs, imaging, speaking to my attending, speaking to specialist. Discharge Plan Discharge Clinical Impression: Rhabdomyolysis, Polysubstance abuse Patient Disposition: Still a Patient Prescriptions: No Action methadone [Methadose] 10 mg/mL concentrate 80 mg PO DAILY Patient Comments: Split dose 150mg total, 80mg @ 0900, 70 mg @ 1300 duloxetine 60 mg capsule,delayed release(DR/EC) 60 mg PO BID gabapentin 400 mg Capsule 400 mg PO TID@0900,1700,2100 methadone [Methadose] 10 mg/mL Concentrate 70 mg PO DAILY@1300 diazepam 5 mg tablet 5 mg PO TID PRN (Reason: Anxiety) spironolactone 50 mg tablet 50 mg PO DAILY 30 Days Qty: 30 0RF aspirin 81 mg Tablet,Chewable 81 mg PO DAILY 30 Days Qty: 30 0RF lactulose 20 gram/30 mL Solution 30 g PO DAILY@0600 30 Days Qty: 1350 0RF propranolol 10 mg tablet 20 mg PO BID hydroxyzine HCl 25 mg tablet 25 mg PO TID propranolol 10 mg tablet 20 mg PO TID Print Language: Trinidadian
[2023-12-25 08:26] LABS: Amphetamine Screen Urine Not Detected (Not Detect); Barbiturates, Urine Not Detected (Not Detect); Benzodiazepines Screen Urine POSITIVE (Not Detect); Cannabinoid Screen Urine Not Detected (Not Detect); Cocaine Screen Urine POSITIVE (Not Detect); Fentanyl, urine POSITIVE (Not Detect); Opiate Screen Urine POSITIVE (Not Detect); Phencyclidine Screen Urine Not Detected (Not Detect)
[2023-12-25 08:28] LABS: Appearance Urine Clear; Color Urine Yellow; Glucose Urine UA Negative (Negative); Leukocyte Esterase Urine Negative (Negative); Nitrite Urine Negative (Negative); PH 6.5 (5.0-9.0); Urine Blood Negative (Negative); Urine Ketones Negative (Negative); Urine Protein Negative (Neg-Trace)
[2023-12-25 08:29] LABS: UPreg QC Valid YES; Urine Pregnancy NEGATIVE (NEGATIVE)
--- NOTE | 2023-12-25 09:10 | PC.NURSE ---
two RNs attempted IV and lab draw without success. notified ALISON stein request for U/S guided IV. upon attempt of initial IV placement this RN noticed an object in the bed with steph pt, upon further inspection it appears to be a vape. pt requested this item to look at . after informing her of the policy of the hospital pt began yelling at staff, demanding use of the vape. pt then began to question staff who in the area is selling drugs . security was called as pt had other belongings in her room and was unsure if there was any needles or other drug paraphernalia in her possession. belongings sent to [facility].
--- NOTE | 2023-12-25 09:13 | PC.NURSE ---
BELONGINGS IN ENOC
--- NOTE | 2023-12-25 11:27 | PC.NURSE ---
Meghan ROSAS attempted U/S guided line without success x2 no labs able to be obtained
--- NOTE | 2023-12-25 11:27 | PC.NURSE ---
MD Rivera attempted U/S guided line without success. pt refusing femoral line
--- NOTE | 2023-12-25 14:25 | PC.NURSE ---
pt remains resting with eyes closed, VSS. awaiting blood draw as pt is a difficult stick
[2023-12-25 15:33] LABS: Alanine Aminotransferase 26 U/L (0-31); Albumin Level 3.5 g/dL (3.5-5.0); Alkaline Phosphatase 128 U/L (39-117); Anion Gap 11 (12-20); Aspartate Amino Transferase 83 U/L (5-31); Blood Urea Nitrogen 11 mg/dL (9-16); Calcium 8.9 mg/dL (8.4-10.2); Carbon Dioxide 24 mmol/L (22-29); Chloride 107 mmol/L (96-108); Creatinine Clr Calc Pharmacy 176.2; Estimated Glomerular Filt Rate > 60; Glucose Random 73 mg/dL (60-115); Magnesium 2.3 mg/dL (1.6-2.6); Potassium 4.3 mmol/L (3.3-5.1); Sodium 138 mmol/L (135-145)
[2023-12-25 15:35] LABS: B Type Natriuretic Peptide 273 pg/mL (<100)
[2023-12-25 15:42] LABS: Troponin-I High Sensitivity < 2.7 ng/L (<3.5-17.0)
[2023-12-25 15:56] LABS: Basophils Percent Auto 0.6 % (0-2); Eosinophils Absolute Auto 0.1 X10*3/uL (0.0-0.4); Eosinophils Percent Auto 1.8 % (0-4); Hematocrit 35.6 % (37.0-47.0); Hemoglobin 11.8 g/dl (12.0-16.0); Imm Gran Pct Auto 1.5 % (0.0-0.4); Lymphocytes Absolute Auto 2.4 X10*3/uL (1.2-4.9); MANUAL DIFF FLAG SCAN; Mean Corpuscular HGB Conc 33.1 g/dl (31.0-35.0); Mean Corpuscular Volume 90.6 fL (80.0-98.0); Mean Platelet Volume 10.2 fL (9.4-12.3); Monocytes Absolute Auto 1.3 X10*3/uL (0.1-1.2); Monocytes Percent Auto 19.5 % (2-11); Neutrophils Absolute Auto 2.6 x10*3/uL (2.0-8.3); Neutrophils Percent Auto 39.6 % (45-73); PLT CLUMP 1; Red Blood Count 3.93 X10*6/uL (4.20-5.50); Red Cell Distribution Width 13.6 % (11.0-16.0); SCAN SMEAR FLAG 1
[2023-12-25 15:57] LABS: Platelet Count 99 X10*3/uL (160-400); White Blood Count 6.6 X10*3/uL (4.8-10.8)
[2023-12-25 15:58] LABS: SLIDE REVIEW VERIFIED
--- NOTE | 2023-12-25 18:55 | MHC.CM.ED ---
Addendum entered by Daniela Dave 12/25/23 21:40: Attempted to meet with patient. Sleeping soundly. Awaiting CARE team assessment Addendum entered by Daniela Dave 12/25/23 20:16: CM attempted to meet with patient twice. Pt sleeping soundly. CARE team consult pending. Original Note: CM received a consult for this patient. There is also a consult for addiction medicine, CARE team and PT. Pt is currently sleeping. Pt was recently admitted to [facility] from 11/27-12/03/2023 for cocaine rabdo and was discharged to [facility] for 30 days. She was receiving methadone at that time. Was getting her methadone from the [facility] clinic on [address] and then [facility] was dosing her at the rehab. She was discharged yesterday. I believe patient is homeless. Her tox screen today was positive for opiates, fentanyl, benzos, and cocaine. Pt comes to ED with frequent falls since discharge. CM will wait for CARE team assessment.
--- NOTE | 2023-12-25 19:17 | PC.NURSE ---
Addendum entered by Daniela Dave 12/25/23 21:04: Pt continues to sleep. Awaiting CARE team assessment. Original Note: Assumed care of pt. Pt lying on stretcher, no acute distress at this time. Continuing plan of care for PT/CM.
--- NOTE | 2023-12-25 22:54 | MHC.CM.ED ---
Addendum entered by Daniela Dave 12/25/23 23:02: Pt does have a HCP on file. Sarita Wolff (mother) [phone]. Original Note: Pt awake, speaking very slowly. States her whole body hurts and she cannot walk. States she used drugs yesterday after she left rehab. She was with a friend. Pt states she has a last dose of methadone at [facility] yesterday before discharge-150mg. Pt states they did nothing for her there. States she was walking with a walker, but they did not give her one and all she did prior to coming to ED was fall. Pt states the rehab referred her to the [facility]. States the rehab was horrible. Denies having anywhere else to live. Pt is aware that she will not be admitted, however she feels she needs to because she has cellulitis and cannot walk. CM explained that she will have a PT and CARE team evaluation. Explained that a barrier to finding shelter care for her is that she is on methadone and that all programs do not take methadone. Pt does not have a PCP or HCP. Will access record to look for HCP. CM will follow in the morning after CARE gaines, PT and addiction medicine consults. Pt will need methadone. Pt on regular diet. Given ice cream and regla crackers at her request. No referral made pending further evaluations.
[2023-12-25] MEDS: Acetaminophen 325 MG TABLET 975 MG PO (23:09)
[2023-12-26 00:04] VITALS: BP 98/49; PULSE 76; RESP 16; O2SAT 98
--- NOTE | 2023-12-26 00:25 | PC.NURSE ---
Attempted to verify methadone dosing with [facility]. No available contacts overnight to confirm dosing. Pt alpo unable to confirm medications for reconciliation.
[2023-12-26 06:13] VITALS: BP 111/60; PULSE 64; RESP 14; O2SAT 97
--- NOTE | 2023-12-26 07:49 | PC.NURSE ---
Pharmacy contacted about med rec, pending. Last dose methadone letter found in pts chart in sealed envelope, letter given to provider, dose matches pt report. Letter also faxed to pharmacy.
--- NOTE | 2023-12-26 08:20 | HE.PHANOTE ---
METHADONE CONFIRMATION FORM PATIENT [facility] AT 8AM [facility] DOSE [facility]23
[2023-12-26] MEDS: methADONE HCl 20 MG/2 ML ORAL.CONC 80 MG PO (08:31)
[2023-12-26 08:51] VITALS: BP 111/60; PULSE 64; O2SAT 97
--- NOTE | 2023-12-26 09:26 | PHA.MEDREC ---
Pharmacy Consult ? Medication Reconciliation Pharmacy has completed the medication reconciliation.
--- NOTE | 2023-12-26 11:19 | MHC.CM.PN ---
Addendum entered by Priscila Lau 12/26/23 13:59: PT attempted to meet with pt again and was not successful - pt requesting to be left alone. Updated ED PA and RN on pt's refusal to participate in PT eval for CM assistance in placement. Original Note: Attempted to meet with pt x2 to discuss d/c planning needs: Pt d/c'd from [facility], used illegal drugs upon d/c, fell and presented to [facility] w/inability to ambulate. First attempt: pt sleeping stated to come back later. Second attempt: review of PT notes with pt and stressed the importance of participating in eval for placement needs. Pt states she will participate in PT when she feels rested and ready. Declined to answer questions about possible living arrangements including with family/friends/chcf. CM to follow for completion of PT eval.
--- NOTE | 2023-12-26 14:22 | MHC.RECOVRN ---
Pt brought to ED via EMS S/P multiple falls, approximately 6, after being d/c from rehab in [facility] yesterday.? Pt?s UTOX positive for fentanyl, opiates, benzos and cocaine and pt reports using when leaving Rehab yesterday.? She did not specify amount or route.? Pt lying in bed lethargic.? She is getting her previously ordered dose of methadone TDD 150mg in split doses.? She denies any issues with this dose and appears comfortable.? ?After speaking with ER provider it appears the main need at this time is a PT eval in order to get pt. placed into another physical rehab.? No further needs for ACS at this time.? Provider/ER staff to contact us if needs arise.
[2023-12-26 14:36] VITALS: BP 117/53; RESP 17; O2SAT 96
--- NOTE | 2023-12-26 17:16 | PC.NURSE ---
PA notified that pts second methadone dose is due to be ordered.
--- NOTE | 2023-12-26 17:49 | PC.NURSE ---
pt sleeping. will hold methadone for now
[2023-12-26] MEDS: methADONE HCl 20 MG/2 ML ORAL.CONC 70 MG PO (20:07)
--- NOTE | 2023-12-26 20:08 | PC.NURSE ---
Patient is alert and oriented x3. She is able to make her needs know and uses call lopez appropriately. VSS. Patient medicated with Methadone 70 mg. Patient offers no c/o at this time, plan of care ongoing.
[2023-12-26] MEDS: Gabapentin 400 MG CAPSULE PO (20:45)
[2023-12-26] MEDS: DULoxetine HCl 60 MG CAPSULE.DR PO (20:45)
[2023-12-26] MEDS: Topiramate 100 MG TABLET PO (20:45)
[2023-12-26] MEDS: Propranolol HCL 20 MG TABLET PO (20:45)
[2023-12-26] MEDS: diazePAM 5 MG TABLET PO (20:49)
[2023-12-26] MEDS: Cyclobenzaprine HCl 10 MG TABLET PO (20:50)
--- NOTE | 2023-12-26 20:50 | PC.NURSE ---
Patient medicated per MA for intermittent pain in neck and b/l legs.
[2023-12-26 22:09] VITALS: BP 114/58; PULSE 72; RESP 14; TEMP 36.7; O2SAT 97
[2023-12-27 05:58] VITALS: BP 110/69; PULSE 63; RESP 18; TEMP 36.8; O2SAT 97
--- NOTE | 2023-12-27 06:17 | PC.NURSE ---
This RN attempted to administer to patient scheduled Lactulose, patient refused to Lactulose at this time requesting to offer it to her after breakfast.
[2023-12-27 08:07] VITALS: BP 116/64; PULSE 76; RESP 12; TEMP 36.4; O2SAT 99
[2023-12-27] MEDS: methADONE HCl 20 MG/2 ML ORAL.CONC 80 MG PO (08:48)
[2023-12-27] MEDS: DULoxetine HCl 60 MG CAPSULE.DR PO ×2 (08:51→20:51)
[2023-12-27] MEDS: Aspirin 81 MG TAB.CHEW PO (08:51)
[2023-12-27] MEDS: Propranolol HCL 20 MG TABLET PO ×3 (08:51→20:51)
[2023-12-27] MEDS: Gabapentin 400 MG CAPSULE PO ×3 (08:51→20:51)
[2023-12-27] MEDS: Spironolactone 25 MG TABLET 50 MG PO (08:51)
[2023-12-27] MEDS: Topiramate 100 MG TABLET PO ×3 (08:51→20:51)
[2023-12-27] MEDS: diazePAM 5 MG TABLET PO ×2 (08:55→16:39)
--- NOTE | 2023-12-27 09:33 | PC.NURSE ---
Pt refused Lactulose, requested Valium, meds given as ordered and documented. Pt resting quietly at this time, no apparent distress.
--- NOTE | 2023-12-27 11:35 | MHC.CM.ED ---
Addendum entered by Priscila Lau 12/27/23 14:59: Met with pt to discuss d/c planning needs: pt receptive to conversation - states she refused PT because she had just arrived in ED and was tired. Reoriented pt to arrival date 12/24 and current date/time. Discussed barriers to STR including PT eval, + tox screen, past hx and payor. Pt requesting to remain local and does not want to return to [facility]. Will place referrals and await participation in PT. Original Note: Pt continues to board in the ED waiting for STR placement secondary to inability to ambulate s/p fall. PT attempted to see pt x 2 on 12/25 but pt declined to particpate in eval. CM discussed necessity of PT eval for placement purposes and encouraged participation. Pt requesting to be left alone to rest and refuses to participate in conversation. ED care team aware of pt's resistance to d/c planning. ED CM to follow.
[2023-12-27] MEDS: methADONE HCl 20 MG/2 ML ORAL.CONC 70 MG PO (13:46)
[2023-12-27] MEDS: hydrOXYzine HCL 25 MG TABLET PO (13:46)
--- NOTE | 2023-12-27 13:51 | PC.NURSE ---
PT REQUESTED PRN ANXIETY MED. PRN HYDROXYZINE GIVEN ORDERED AND DOCUMENTED, PT EATING LUNCH AT THIS TIME
[2023-12-27] MEDS: Cyclobenzaprine HCl 10 MG TABLET PO (16:01)
[2023-12-27 18:21] VITALS: BP 118/72; PULSE 70; RESP 15; TEMP 36.5; O2SAT 96
[2023-12-27 20:32] VITALS: BP 114/72; PULSE 66; RESP 12; TEMP 36.8; O2SAT 97
--- NOTE | 2023-12-27 21:00 | PC.NURSE ---
pt given bedtime meds. tolerated with water. belongings within reach. call lopez within reach. pt requests lights off and door closed.
[2023-12-28] MEDS: diazePAM 5 MG TABLET PO ×3 (02:01→23:56)
[2023-12-28] MEDS: Cyclobenzaprine HCl 10 MG TABLET PO ×3 (02:01→21:22)
--- NOTE | 2023-12-28 02:02 | PC.NURSE ---
pt request prn for pain/anxiety. pt medicated per nov. . call lopez within reach.
[2023-12-28 03:05] VITALS: RESP 14
[2023-12-28 06:06] VITALS: BP 106/69; PULSE 70; RESP 14; TEMP 36.8; O2SAT 98
[2023-12-28] MEDS: Lactulose 20 GM/30 ML SOLUTION 30 GM PO (06:49)
[2023-12-28] MEDS: Spironolactone 25 MG TABLET 50 MG PO (09:00)
[2023-12-28] MEDS: DULoxetine HCl 60 MG CAPSULE.DR PO ×2 (09:00→21:19)
[2023-12-28] MEDS: Aspirin 81 MG TAB.CHEW PO (09:00)
[2023-12-28] MEDS: Gabapentin 400 MG CAPSULE PO ×3 (09:01→21:19)
[2023-12-28] MEDS: methADONE HCl 20 MG/2 ML ORAL.CONC 80 MG PO (09:01)
[2023-12-28] MEDS: Propranolol HCL 20 MG TABLET PO ×3 (09:01→21:19)
[2023-12-28] MEDS: Topiramate 100 MG TABLET PO ×3 (09:01→21:19)
--- NOTE | 2023-12-28 09:44 | PC.NURSE ---
patient alert and oriented with even and unlabored respirations. medicated per the MAR, requested prn medications. patient encouraged to participate today with physical therapy and utilize the commode today. linens changed, provided w/ new hospital attire. call lopez within reach.
--- NOTE | 2023-12-28 10:54 | PC.NURSE ---
appears to be resting at this time, respirations even and unlabored. no obvious signs/symptoms of distress noted.
[2023-12-28 11:38] VITALS: BP 113/65; PULSE 71; RESP 12; TEMP 36.8; O2SAT 95
--- NOTE | 2023-12-28 11:59 | PC.NURSE ---
Assumed care of this patient at 1100, patient sleeping on stretcher at this time, denies pain.
--- NOTE | 2023-12-28 13:09 | MHC.CM.ED ---
Patient remains in ER. Waiting for updated physical therapy note. Patient's home methadone clinic is [facility]. Waiting to see if [facility] is able to offer a bed. Continue to monitor for d/c needs.
[2023-12-28 14:00] VITALS: BP 144/76; PULSE 75; RESP 16; TEMP 36.8; O2SAT 96
[2023-12-28] MEDS: methADONE HCl 20 MG/2 ML ORAL.CONC 70 MG PO (14:11)
[2023-12-28 14:38] LABS: IDNOW Serial# 152EDE1D
[2023-12-28 14:39] LABS: COVID-19 Test Negative (Negative)
[2023-12-28 21:18] VITALS: BP 106/68; PULSE 72; RESP 16; TEMP 36.7; O2SAT 95
[2023-12-28] MEDS: hydrOXYzine HCL 25 MG TABLET PO (21:23)
--- NOTE | 2023-12-28 21:23 | PC.NURSE ---
Patient requesting PRN anxiety and pain medication, given per NOV. Resting quietly on stretcher at this time eating PM snack. Vitals signs WNL.
--- NOTE | 2023-12-28 22:22 | PC.NURSE ---
Patient resting quietly on stretcher at this time, requesting additional pm snacks, no issues noted.
[2023-12-28 23:53] VITALS: BP 108/71; PULSE 80; RESP 14; TEMP 36.8; O2SAT 98
--- NOTE | 2023-12-28 23:57 | PC.NURSE ---
Pt aox4 resting at the bedside. Pt reports increased neck/back and bilateral leg pain, 10/10. Requesting PRN meds for sleep. Pt mediated per NOV. Commode at bedside. Pt encouraged to ask for assistance to transfer to the commode. Call lopez placed within reach. Pt aware of plan of care. Monitoring is ongoing.
[2023-12-29 06:05] VITALS: BP 108/57; PULSE 72; RESP 16; O2SAT 94
[2023-12-29 08:49] VITALS: BP 123/67; PULSE 69; RESP 20; TEMP 36.6; O2SAT 96
[2023-12-29] MEDS: Aspirin 81 MG TAB.CHEW PO (08:52)
[2023-12-29] MEDS: Gabapentin 400 MG CAPSULE PO (08:52)
[2023-12-29] MEDS: Topiramate 100 MG TABLET PO (08:52)
[2023-12-29] MEDS: DULoxetine HCl 60 MG CAPSULE.DR PO (08:52)
[2023-12-29] MEDS: Spironolactone 25 MG TABLET 50 MG PO (08:52)
[2023-12-29] MEDS: methADONE HCl 20 MG/2 ML ORAL.CONC 80 MG PO (08:52)
[2023-12-29] MEDS: Propranolol HCL 20 MG TABLET PO (08:57)
--- NOTE | 2023-12-29 12:09 | MHC.CM.ED ---
Patient remains in ER. [facility] does not have a female bed today. Referral broadcasted within the state of [facility] to all facilities that are contracted with [facility] to see if they can offer a bed. 117 referrals made. [facility] PASRR Level 2 obtained. Continue to monitor for d/c needs.
--- NOTE | 2023-12-29 13:37 | MHC.CM.ED ---
Addendum entered by Radha Garcia 12/29/23 13:43: APOLONIA Kaiser aware. Original Note: [facility] is able to offer a bed if guest Methadone dosing is arranged at [facility] in [place]. Met with patient to discuss this option. Patient is concerned because she was just at [facility] and she didn't like the care there. T/W explained it was a completely different facility only in the same city and that [facility] is unable to offer a bed. Patient is declining to go to [facility]. T/W offered to find a pen[facility]iary bed. Patient declined. T/W offered a bus ticket. Patient declined. Patient aware she will be d/c'd. Torie BARKSDALE, [employer] wireman Darci and Lillian ROSAS aware. Continue to monitor for d/c needs.
[2023-12-29 13:53] VITALS: BP 123/67; PULSE 69; RESP 20; TEMP 36.6; O2SAT 96
== END 2023-12-29 13:55 | disposition home or self-care (01) ==
PROVIDERS: Physician Assistant; Emergency Provider Emergency Medicine
DX: M62.82 Rhabdomyolysis (principal); F19.10 Other psychoactive substance abuse, uncomplicated; R29.6 Repeated falls; Z88.2 Allergy status to sulfonamides; Z88.8 Allergy status to other drugs, medicaments and biological substances; Z11.52 Encounter for screening for COVID-19
CPT/HCPCS: 36415; 70450; 72125; 80053; 80307; 81003; 81025; 82550; 83735; 83880; 84484; 85025; 87635; 93005; 97162; 97530; 99285

== ENCOUNTER → 2023-12-25 07:42 | Outpatient (BNV) | payer OTHER, SELFPAY | PROVIDERS: Emergency Provider Emergency Medicine; Visit Provider Internal Medicine Cardiovascular Disease | DX: R94.31 Abnormal electrocardiogram [ECG] [EKG] (principal) | CPT/HCPCS: 93010 ==

== ENCOUNTER 2024-01-13 01:43 | Inpatient (IN) | payer OTHER, SELFPAY ==
[2024-01-13] VITALS (8 sets, daily range): BP systolic 95–157; BP diastolic 48–112; PULSE 71–87; RESP 14–18; TEMP 36.3–37.1; O2SAT 93–100; BMI 43.6; BMI 42.2
--- NOTE | ~2024-01-13 | XR_ITS ---
EXAMINATION: XR HAND/WRIST, LEFT CLINICAL INFORMATION: Abscess versus cellulitis COMPARISON: None TECHNIQUE: PA, lateral, and oblique views of the left hand and wrist. FINDINGS: Bone alignment is normal. No fracture or dislocation. No x-ray evidence of osteomyelitis. Normal joint spaces. Soft tissue foreign body suggestive of broken needle adjacent to the distal radial shaft, radial and volar surface. Diffuse soft tissue swelling over the distal forearm and wrist. No abnormal air collection. XR/XR hand wrist LT IMPRESSION: Soft tissue foreign body in the distal forearm suggestive of a broken needle and diffuse soft tissue swelling.
[2024-01-13 02:19] LABS: MANUAL DIFF FLAG NO
[2024-01-13 02:38] LABS: Basophils Percent Auto 0.4 % (0-2); Eosinophils Percent Auto 0.7 % (0-4); Hematocrit 42.2 % (37.0-47.0); Hemoglobin 14.4 g/dl (12.0-16.0); Imm Gran Abs Auto 0.01 X10*3/uL (0.00-0.03); Imm Gran Pct Auto 0.2 % (0.0-0.4); Lymphocytes Absolute Auto 1.6 X10*3/uL (1.2-4.9); Lymphocytes Percent Auto 28.3 % (20-40); Mean Corpuscular HGB Conc 34.1 g/dl (31.0-35.0); Mean Corpuscular Hemoglobin 29.9 pg (27.0-33.0); Mean Corpuscular Volume 87.7 fL (80.0-98.0); Mean Platelet Volume 11.3 fL (9.4-12.3); Monocytes Absolute Auto 0.3 X10*3/uL (0.1-1.2); Monocytes Percent Auto 5.4 % (2-11); NRBC Pct Auto 0.4 /100WBC (0.0-0.2); Neutrophils Absolute Auto 3.6 x10*3/uL (2.0-8.3); Platelet Count 108 X10*3/uL (160-400); Red Blood Count 4.81 X10*6/uL (4.20-5.50); Red Cell Distribution Width 13.2 % (11.0-16.0); White Blood Count 5.6 X10*3/uL (4.8-10.8)
[2024-01-13 02:40] LABS: Alanine Aminotransferase 24 U/L (0-31); Albumin Level 4.3 g/dL (3.5-5.0); Alkaline Phosphatase 110 U/L (39-117); Anion Gap 14 (12-20); Aspartate Amino Transferase 44 U/L (5-31); Bilirubin Total 1.4 mg/dL (0.0-1.0); Blood Urea Nitrogen 14 mg/dL (9-16); Calcium 10.1 mg/dL (8.4-10.2); Carbon Dioxide 21 mmol/L (22-29); Chloride 108 mmol/L (96-108); Creatinine Clr Calc Pharmacy 106.6; Estimated Glomerular Filt Rate > 60; Glucose Random 105 mg/dL (60-115); Potassium 4.6 mmol/L (3.3-5.1); Sodium 138 mmol/L (135-145); Total Protein 8.4 g/dL (6.5-8.0)
--- NOTE | 2024-01-13 02:42 | MHC.EDTECH ---
PATIENT BLOOD DRAWN AND URINE SAMPLE COLLECTED AND SENT TO LAB .
[2024-01-13 02:50] LABS: Appearance Urine Turbid; Color Urine Dark Yellow; Glucose Urine UA Negative (Negative); Leukocyte Esterase Urine Large (3+) (Negative); Nitrite Urine Negative (Negative); PH 5.5 (5.0-9.0); Specific Gravity - Urine 1.025 (1.005-1.025); UMIC TRIGGER UACC YES; Urine Blood Trace (Negative); Urine Ketones Trace mg/dL (Negative); Urine Protein 30 (1+) mg/dL (Neg-Trace)
[2024-01-13 03:28] LABS: Bacteria Urine 4+ (None Seen); Hyaline Casts Urine 0-2 /LPF (0-2); RBC Urine 0-2 /HPF (0-2); Squamous Epithelial Cell Urine 0-2 /HPF (0-2); UACC Culture Trigger YES
--- NOTE | 2024-01-13 05:14 | MHC.EDTECH ---
PATIENT VITALS WAS RE CHECK IN TRIAGE BY THIS PCT .
--- NOTE | 2024-01-13 06:42 | ED.GENADULT ---
HPI - General Adult General Chief complaint: Weakness Stated complaint: R leg pain Time Seen by Provider: 01/13/24 06:39 Source: patient, EMS, RN notes reviewed and old records reviewed Mode of arrival: EMS Limitations: no limitations History of Present Illness HPI narrative: 44 year old right hand dominant female with pmhx significant for obesity, opioid use disorder, rhabdomyolisis, depression, thrombocyopenia, bipolar disorder, PTSD, IVDU, toxic metabolic encephalopathy, hepatitis C presents to the ED today via EMS for evaluation after being found on the ground inside an abandoned building prior to arrival. She reports calling EMS when she had difficulty standing due to lower extremity weakness. Admits to injecting 5 bags of crack and heroin prior to EMS arrival in attempts to end her life. She continues to endorse suicidal ideation with plan to overdose. Denies HI. Jaswinder /TH/. She does endorse some discomfort to the ulnar aspect of her left hand where she has recently injected drugs. Discomfort does not radiate. Additionally endorses dysuria x days. She denies known fever, chills, headache, dizziness, nausea, vomiting, chest pain, palpitations, abdominal pain, flank pain, hematuria, urinary frequency/urgency, vaginal discharge. Related Data Home Medications ?Medication ?Instructions ?Recorded ?Confirmed methadone 10 mg/mL oral 80 mg PO DAILY 06/16/22 12/26/23 concentrate (Methadose) duloxetine 60 mg capsule,delayed 60 mg PO BID 11/17/23 12/26/23 release gabapentin 400 mg capsule 400 mg PO TID@0900,1700,2100 11/17/23 12/26/23 methadone 10 mg/mL oral 70 mg PO DAILY@1300 11/17/23 12/26/23 concentrate (Methadose) diazepam 5 mg tablet 5 mg PO TID PRN Anxiety 11/18/23 12/26/23 hydroxyzine HCl 25 mg tablet 25 mg PO TID PRN Anxiety 11/30/23 12/26/23 cyclobenzaprine 10 mg tablet 10 mg PO TID PRN Muscle Spasm 12/26/23 12/26/23 propranolol 20 mg tablet 20 mg PO TID 12/26/23 12/26/23 topiramate 100 mg tablet 100 mg PO TID 12/26/23 12/26/23 Previous Rx's ?Medication ?Instructions ?Recorded aspirin 81 mg chewable tablet 81 mg PO DAILY 30 days #30 tabs 11/26/23 lactulose 20 gram/30 mL oral 30 g (45 mL) PO DAILY@0600 30 days 11/26/23 solution #1,350 mL spironolactone 50 mg tablet 50 mg PO DAILY 30 days #30 tabs 11/26/23 Allergies Allergy/AdvReac Type Severity Reaction Status Date / Time quetiapine [From SEROQUEL] Allergy Severe THROAT Verified 01/13/24 02:00 SWELLING azithromycin [AZITHROMYCIN] Allergy Unknown Unknown Verified 01/13/24 02:00 erythromycin base Allergy Unknown RASH Verified 01/13/24 02:00 [ERYTHROMYCIN BASE] olanzapine [From ZYPREXA] Allergy Unknown PEDAL EDEMA Verified 01/13/24 02:00 sulfacetamide Allergy Unknown Unknown Verified 01/13/24 02:00 [From Sulfacet-R] sulfamethoxazole Allergy Unknown ITCHING Verified 01/13/24 02:00 [From BACTRIM] sulfur [From Sulfacet-R] Allergy Unknown Unknown Verified 01/13/24 02:00 trimethoprim [From BACTRIM] Allergy Unknown ITCHING Verified 01/13/24 02:00 risperidone [From RISPERDAL] AdvReac Unknown TWITCHING Verified 01/13/24 02:00 seafood AdvReac Unknown Vomiting Verified 01/13/24 02:00 shellfish derived AdvReac Unknown VOMITING Verified 01/13/24 02:00 [SHELLFISH DERIVED] trazodone AdvReac restless Verified 01/13/24 02:00 legs Review of Systems Review of Systems: Constitutional: No fever, chills, fatigue, night sweats, weight changes ENT/Mouth: No ear pain, hearing loss, nasal congestion, sinus pain, rhinorrhea, sore throat Eyes: No eye pain, swelling, redness, vision changes, discharge Cardio: No chest pain, palpitations, BALDWIN, orthopnea, peripheral edema Pulm: No SOB, cough, sputum, wheezing, dyspnea, hemoptysis GI: No nausea, vomiting, hematemesis, abdominal pain, diarrhea, constipation, hematochezia, melena : No irregular bleeding, frequency, urgency, hesitancy, hematuria, flank pain, urinary flow changes, urinary incontinence or retention, +dysuria MSK: No back pain, neck pain, joint pain, +LE weakness Skin: No lesions, rashes Neuro: No weakness, numbness, paresthesias, LOC, dizziness, headache Psych: No anxiety/panic, depression, SI/HI, AH/VH All other systems reviewed and are negative. [facility] Past Medical History Attestation statement: The following information was validated with the patient. Source: old records reviewed and nursing notes reviewed Medical History Depression Substance abuse Hepatitis C Depression Opioid dependence Leg pain, bilateral Rhabdomyolysis Opioid use disorder, moderate, in sustained remission, dependence Bipolar 1 disorder Substance abuse Substance abuse Back pain Opioid dependence Social History Social History Household Members: None Housing: Homeless Housing Other:: pt states displaced as in and out of facilities and treatment centers Do you presently have visiting nurse or other home services: No Unable to assess alcohol history related to: Unable to respond and Unknown Alcohol intake: former Comment: 1:1 sitter Patient Tobacco Use Status: Current everyday Tobacco user Tobacco use type: Cigarette Cigarette Packs Per Day: 0.5 Cigarettes Per Day: 10.0 Years Smoked: 29 Smoked in Last 30 Days: Yes e-Cigarette/Vaping Use: Currently Using Second Hand Smoke Exposure: No Use of substances other than those prescribed or required for medical reasons: Refusing to respond Substance Use Type: Heroin Advance Directives: Yes Advance Directives on File: Yes Advance Directives Date on File: 12/28/20 Do you have a plan to hurt others: No Plan Patient : No service: No Current occupational status: unemployed and disabled Sexual orientation: Straight/Heterosexual Physical Exam ED Vital Signs: Vital Signs - 24 hr 01/13/24 01:57 01/13/24 05:03 01/13/24 06:45 Temperature 98.7 F 98.2 F 97.9 F Pulse Rate 85 71 75 Respiratory Rate 16 16 16 Blood Pressure 129/81 114/60 112/48 L Pulse Oximetry 98 97 97 Oxygen Delivery Method Room Air Room Air Room Air 01/13/24 08:39 01/13/24 10:15 Temperature 98.1 F 97.4 F Pulse Rate 75 82 Respiratory Rate 14 18 Blood Pressure 125/64 157/112 H Pulse Oximetry 99 99 Oxygen Delivery Method Room Air Room Air BMI result Body Mass Index 43.6 vital signs stable Const Other: + disheveled, poor hygiene General: cooperative, comfortable and no acute distress Orientation/consciousness: patient oriented x3 Limitations: no limitations HENMT Head: Yes normal to inspection, Yes No palpable skull fracture present, Yes normocephalic and Yes atraumatic Eyes General: appearance normal, both eyes and all related structures Conjunctivae: conjunctivae normal Sclerae: sclerae normal Pupils: Equal, round and reactive pupils present Neck Neck: Yes normal visual inspection, Yes full ROM and Yes no lymphadenopathy Resp Effort & Inspection: normal respiratory effort and able to speak in complete sentences Auscultation: clear to auscultation bilaterally Cardio Jugular venous distension: no JVD Rate: regular rate Rhythm: regular rhythm GI Inspection: Yes normal to inspection and Yes obesity Palpation (GI): Soft to palpation and nontender General: Yes no CVA tenderness Back/Spine/Pelvis Other: No midline spinous tenderness or step off deformity. No paraspinal muscle tenderness. Back: no CVA tenderness Skin Other: + small 2cm bump noted to the ulnar aspect of dorsal left hand. no surrounding erythema. nontender to palpation. no palpable warmth or fluctuance. full ROM inatct to left wrist and all digits on left hand. no streaking. + multiple skin lesions and injection sites secondary to IVDU General skin exam: no rashes or lesions noted Neuro General: patient oriented x3 Cranial nerves: Yes CN's II-XII intact bilaterally and Yes Equal, round and reactive pupils present Course Course Course Narrative: 0653--CBC without leukocytosis or left shift. No anemia. H&H stable. CPK 487 > no concern for acute rhabdo. Urine shows slight infection. Given patient's symptoms of dysuria, will treat with p.o. antibiotics. On exam, there is a small bump noted to the ulnar aspect of the left hand were patient injects drugs. There is no surrounding erythema or palpable fluctuance. As the patient is afebrile and does not have leukocytosis on labs, infection is unlikely. 0851-- x-ray left hand/wrist showing soft tissue foreign body in the distal forearm suggestive of broken needle and diffuse soft tissue swelling. There is no evidence concerning of osteomyelitis or abscess at this time. Discussed findings with my attending, Dr. Man who agrees with PO antibiotics and outpatient follow up with surgery. > patient will be started on Keflex and doxycycline which will cover both soft tissue infection and urinary tract infection. No concern for sepsis at this time. > patient is medically cleared. Physician observation initiated pending care team and addiction med consult. Medications Administered Generic Name Dose Route Start Last Admin Trade Name Freq PRN Reason Stop Dose Admin Cephalexin HCl 500 mg 01/13/24 09:00 01/13/24 09:15 Cephalexin 500 Mg Capsule PO 500 mg BID EDER Administration Doxycycline Monohydrate 100 mg 01/13/24 09:00 01/13/24 09:37 Doxycycline Monohydrate 100 Mg Capsule PO 100 mg BID EDER Administration Discontinued Medications Generic Name Dose Route Start Last Admin Trade Name Freq PRN Reason Stop Dose Admin Diazepam 2 mg 01/13/24 08:44 01/13/24 09:15 Diazepam 2 Mg Tablet PO 01/13/24 08:45 2 mg ONCE ONE Administration Sodium Chloride 1,000 mls @ 999 mls/hr 01/13/24 06:45 01/13/24 09:19 Ns IV 01/13/24 07:45 Not Given .Q1H1M EDER Ibuprofen 800 mg 01/13/24 08:44 01/13/24 09:15 Ibuprofen 800 Mg Tablet PO 01/13/24 08:45 800 mg ONCE ONE Administration Medical Decision Making Medical Decision Making MDM Narrative: 44 year old right hand dominant female with pmhx significant for obesity, opioid use disorder, rhabdomyolisis, depression, thrombocyopenia, bipolar disorder, PTSD, IVDU, toxic metabolic encephalopathy, hepatitis C presents to the ED today via EMS for evaluation after being found on the ground inside an abandoned building prior to arrival. Vital signs are stable. Afebrile. She is nontoxic-appearing and in no distress. Disheveled, poor hygiene. On exam, there is a small 2cm bump noted to the ulnar aspect of dorsal left hand. no surrounding erythema. non tender to palpation. no palpable warmth or fluctuance. full ROM intact to left wrist and all digits on left hand. no streaking. there are multiple skin lesions and injection sites secondary to IVDU. Obese abdomen. soft, ND/NT. Normoactive bs x4. Differential diagnosis includes polysubstance use, OD, cellulitis, soft tissue abscess, urinary tract infection. Plan for labs, xray, urine, re-evaluation. Differential Diagnosis Differential Diagnoses: The differential diagnosis associated with the presentation includes As above Admission/Observation Consideration of admission/observation: Escalation of care including admission/observation considered Patient will be admitted to inpatient psych for SI for further evaluation. Lab Data MDM Lab Attestation statement: I reviewed the patient's lab results. As above 01/13/24 02:14 01/13/24 02:14 Labs: Lab Results 01/13/24 01/13/24 01/13/24 Range/Units 02:14 02:39 11:51 WBC 5.6 (4.8-10.8) X10*3/uL RBC 4.81 D (4.20-5.50) X10*6/uL Hgb 14.4 D (12.0-16.0) g/dl Hct 42.2 (37.0-47.0) % MCV 87.7 (80.0-98.0) fL MCH 29.9 (27.0-33.0) pg MCHC 34.1 (31.0-35.0) g/dl RDW 13.2 (11.0-16.0) % Plt Count 108 L (160-400) X10*3/uL MPV 11.3 (9.4-12.3) fL Immature Gran % (Auto) 0.2 (0.0-0.4) % Neut % (Auto) 65.0 (45-73) % Lymph % (Auto) 28.3 (20-40) % [place] % (Auto) 5.4 (2-11) % Eos % (Auto) 0.7 (0-4) % Baso % (Auto) 0.4 (0-2) % Lymph # (Auto) 1.6 (1.2-4.9) X10*3/uL [place] # (Auto) 0.3 (0.1-1.2) X10*3/uL Eos # (Auto) 0.0 (0.0-0.4) X10*3/uL Baso # (Auto) 0.0 (0.0-0.2) X10*3/uL Abs Immat Gran (auto) 0.01 (0.00-0.03) X10*3/uL Absolute Neuts (auto) 3.6 (2.0-8.3) x10*3/uL Absolute Nucleated RBC 0.020 H (0.0-0.012) X10*3/uL Nucleated RBC % (auto) 0.4 H (0.0-0.2) /100WBC Sodium 138 (135-145) mmol/L Potassium 4.6 (3.3-5.1) mmol/L Chloride 108 (96-108) mmol/L Carbon Dioxide 21 L (22-29) mmol/L Anion Gap 14 (12-20) BUN 14 (9-16) mg/dL Creatinine 0.88 (0.5-1.4) mg/dL Estim Creat Clear Calc 106.6 Estimated GFR > 60 Random Glucose 105 (60-115) mg/dL Lactic Acid 1.0 (0.5-2.0) mmol/L Calcium 10.1 D (8.4-10.2) mg/dL Total Bilirubin 1.4 H (0.0-1.0) mg/dL AST 44 H (5-31) U/L ALT 24 (0-31) U/L Alkaline Phosphatase 110 (39-117) U/L Total Creatine Kinase 487 H (26-140) U/L Total Protein 8.4 H (6.5-8.0) g/dL Albumin 4.3 (3.5-5.0) g/dL Beta HCG, Quant < 2 mIU/mL Urine Color Dark Yellow Urine Appearance Turbid Urine pH 5.5 (5.0-9.0) Ur Specific [place] 1.025 (1.005-1.025) Urine Protein 30 (1+) H (Neg-Trace) mg/dL Urine Glucose (UA) Negative (Negative) mg/dL Urine Ketones Trace (Negative) mg/dL Urine Blood Trace H (Negative) Urine Nitrite Negative (Negative) Ur Leukocyte Esterase Large (3+) H (Negative) Urine RBC 0-2 (0-2) /HPF Urine WBC 11-20 (0-5) /HPF Ur Squamous Epith Cells 0-2 (0-2) /HPF Urine Bacteria 4+ (None Seen) Hyaline Casts 0-2 (0-2) /LPF Ethyl Alcohol < 10 mg/dL COVID-19 (ZACK) Negative (Negative) COVID-19 Clin Com See Note Independent Interpretation I performed an independent interpretation of an: Plain X-Ray Interpretation: X-ray left hand/wrist showing linear foreign body and distal forearm consistent with broken needle, agree with radiologist's interpretation. Radiology Impression Discussion of test interpretation with radiology: I have reviewed the radiologist's reading. Radiologist Impression: EXAMINATION: XR HAND/WRIST, LEFT CLINICAL INFORMATION: Abscess versus cellulitis COMPARISON: None TECHNIQUE: PA, lateral, and oblique views of the left hand and wrist. FINDINGS: Bone alignment is normal. No fracture or dislocation. No x-ray evidence of osteomyelitis. Normal joint spaces. Soft tissue foreign body suggestive of broken needle adjacent to the distal radial shaft, radial and volar surface. Diffuse soft tissue swelling over the distal forearm and wrist. No abnormal air collection. XR/XR hand wrist LT IMPRESSION: Soft tissue foreign body in the distal forearm suggestive of a broken needle and diffuse soft tissue swelling. External Record Review External record reviewed: Inpatient record, Office record, Outpatient record, Prior outpatient labs, Prior outpatient radiology, Primary care record and Outside ED record Prescription Management I considered prescription management with: Pain Medication and Antibiotic (Keflex, doxy) Chronic Conditions Patient?s care impacted by: Other (IV drug abuse) Social Determinants Patient?s care significantly limited by Social Determinants of Health including: Inadequate housing, Low income, Alcoholism and drug addiction in family, Problems related to primary support group and Other Social Determinant of Health Critical Care Time Critical Care Time Critical Care Time: Yes Total Critical Care Time: 37 Attestation: Critical care time in the amount of 37 minutes has been provided to the patient in terms of direct patient care, frequent reevaluation, review and interpretation of medical data and results, and management of potentially life-threatening conditions. This is all outside of any medical procedures. Discharge Plan Discharge Clinical Impression: Foreign body (FB) in soft tissue, Urinary tract infection, Depression with suicidal ideation Patient Disposition: Admitted As Inpatient Transfer Details: inpatient psych
[2024-01-13 08:20] LABS: Ethanol < 10 mg/dL
[2024-01-13 08:31] LABS: HCG Quantitative < 2 mIU/mL
[2024-01-13] MEDS: diazePAM 2 MG TABLET PO (09:15)
[2024-01-13] MEDS: cephALEXin 500 MG CAPSULE PO ×2 (09:15→21:02)
[2024-01-13] MEDS: Ibuprofen 800 MG TABLET PO (09:15)
--- NOTE | 2024-01-13 09:20 | PC.NURSE ---
NS 999 not given d/t provider changed order
[2024-01-13] MEDS: Doxycycline Monohydrate 100 MG CAPSULE PO ×2 (09:37→21:02)
--- NOTE | 2024-01-13 10:45 | PC.NURSE ---
PT TRANSFERRED VIA W/C TO THE POD BED 5. PT IS A/O X 4 NO SOB/EFRAIN NOTED SPEAKS IN FULL SENTENCES. PT C/O 8/10 LOWER BACK AND ABDIRAHMAN LEG PAIN/DISC. PT STATES +SI/AUDITORY HALLUCINATION. PT AMB (I) GAIT STEADY TO RN STATION AND BTB. PT AWARE OF PLAN OF CARE. WILL CONTINUE TO MONITOR.
--- NOTE | 2024-01-13 10:56 | PC.NURSE ---
CARE TEAM AT BEDSIDE PT AWARE OF PLAN OF CARE.
--- NOTE | 2024-01-13 11:34 | ECG_ITS ---
Test Reason : CHECK QT INTERVAL Blood Pressure : / mmHG Vent. Rate : 077 BPM Atrial Rate : 077 BPM P-R Int : 192 ms QRS Dur : 084 ms QT Int : 412 ms P-R-T Axes : 058 026 041 degrees QTc Int : 466 ms Normal sinus rhythm Nonspecific T wave abnormality Abnormal ECG When compared with ECG of 25-DEC-2023 08:12, No significant change was found Referred By: Niki Man Electronically Signed By:BRANNON FRANKLIN MD
[2024-01-13 12:11] LABS: COVID-19 Test Negative (Negative); IDNOW Serial# 08D9AD1C
--- NOTE | 2024-01-13 13:43 | PC.NURSE ---
PT IS SLEEPING RESP EVEN AND UNLABORED.
--- NOTE | 2024-01-13 13:58 | PC.NURSE ---
CARE TEAM AT BEDSIDE, PT AWARE OF PLAN OF CARE.
--- NOTE | 2024-01-13 14:07 | PC.NURSE ---
PT HAS A BED ON M3, BUT IS INSISTING THAT SHE WANTS TO GO TO M5 - CARE TEAM AWARE.
--- NOTE | 2024-01-13 14:31 | PC.NURSE ---
RN TO RN REPORT GIVEN TO MYA WALLACE AWARE OF PLAN OF CARE FOR TRANSFER TO M3.
--- NOTE | 2024-01-13 14:49 | PC.NURSE ---
PT'S BELONGINGS WERE PLACED IN DECON EARLIER BY SECURITY.
--- NOTE | 2024-01-13 17:06 | PC.NURSE ---
01/13/24 pt refused flu vaccine
--- NOTE | 2024-01-13 17:47 | PC.ADMIT ---
Carlota is a 44 year old female admitted to from the pod on a CV for treatment of SI and opioid use D/O. Pt reported that she left [facility] after being there for 4 weeks and went to the resolution specialist to chart picker her belongings and there was cocaine bundles still left in her belongings. She called EMS d/t lower extremity weakness. Prior to their arrival she reportedly admits to injecting 5 bags of crack, fentanyl and heroin in attempts to end her life. Pt was found on the ground inside an abandoned building. Pt denies HI but is currently endorsing SI with plan of overdosing on fentanyl. pt was A&O x4. Pt mood is irritable. Affect is irritable but bright and cheerful at times. Pt denies AH or VH at this time. Pt responses are delayed and pt kept falling asleep during assessment. Pt was agitated with male RN upon arrival to Fuck you, I don't know why you're talking to me. I don't want to to look at me. I thought you were agarwal. Pt then peeled skin off of foot and told RN I'm going to throw this at you. Pt was irritable but compliant with VS, skin check and clothing change lead. Pt has past medical hx of obesity, opioid use d/o, rhabdomyolisis, hep C, thrombocytopenia, bipolar, ptsd, IVDU, toxic metabolic encephaloathy and depression. No tox screen was performed in the ED. Pt COVID screen was negative. Pt was placed on 15 checks for safety.
[2024-01-13] MEDS: Propranolol HCL 10 MG TABLET PO (21:00)
[2024-01-13] MEDS: diazePAM 5 MG TABLET PO (21:02)
[2024-01-13] MEDS: Topiramate 25 MG TABLET 50 MG PO (21:02)
[2024-01-13] MEDS: Gabapentin 400 MG CAPSULE PO (21:02)
[2024-01-13] MEDS: DULoxetine HCl 30 MG CAPSULE.DR PO (21:03)
--- NOTE | 2024-01-14 05:46 | PC.NURSE ---
Carlota was educated on needing urine for Tox screen. stated she was unable to go. Tox screen urine collection pending.
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
[2024-01-14 07:57] VITALS: BP 124/64; PULSE 72; RESP 14; TEMP 36.4; O2SAT 99
[2024-01-14] MEDS: Doxycycline Monohydrate 100 MG CAPSULE PO ×2 (09:35→21:11)
[2024-01-14] MEDS: DULoxetine HCl 30 MG CAPSULE.DR PO (09:35)
[2024-01-14] MEDS: cephALEXin 500 MG CAPSULE PO ×2 (09:35→21:11)
[2024-01-14] MEDS: Aspirin 81 MG TAB.CHEW PO (09:35)
[2024-01-14] MEDS: Topiramate 25 MG TABLET 50 MG PO (09:35)
[2024-01-14] MEDS: Gabapentin 400 MG CAPSULE PO ×3 (09:35→21:11)
[2024-01-14 09:46] VITALS: BP 154/90; PULSE 95
[2024-01-14] MEDS: Propranolol HCL 10 MG TABLET PO (09:46)
[2024-01-14] MEDS: diazePAM 5 MG TABLET PO (09:46)
--- NOTE | 2024-01-14 09:58 | PC.NURSE ---
Spoke with Oralia Zuniga from [facility]. Spoke to Oralia Zuniga who confirmed patient last dosed with Methadone 01/12/24 at 150mg. Was released the same day.
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
--- NOTE | 2024-01-14 13:08 | HE.PHANOTE ---
Addendum entered by Dianne Sanchez [facility] 01/14/24 13:10: Name of person at clinic providing information is Oralia Ramesh Original Note: RE: METHADONE DOSE Last dose of methadone 150 mg was given on 01/12/24 at [facility] ([phone]) per America Crenshaw
[2024-01-14] MEDS: methADONE HCl 20 MG/2 ML ORAL.CONC 150 MG PO (13:38)
[2024-01-14] MEDS: Topiramate 25 MG TABLET 100 MG PO ×2 (15:39→21:11)
[2024-01-14 15:52] VITALS: BP 101/58; PULSE 68
[2024-01-14] MEDS: Propranolol HCL 20 MG TABLET PO ×2 (15:52→21:12)
[2024-01-14] MEDS: Mineral Oil/Petrolatum,White 106 GM Tube 1 APPL TOPICAL (15:53)
[2024-01-14] MEDS: hydrOXYzine HCL 25 MG TABLET PO (17:27)
[2024-01-14 19:50] VITALS: BP 140/71; PULSE 69; RESP 16; TEMP 36.5; O2SAT 95
[2024-01-14] MEDS: DULoxetine HCl 60 MG CAPSULE.DR PO (21:11)
[2024-01-15 07:55] VITALS: BP 108/60; PULSE 64; RESP 16; TEMP 36.4; O2SAT 99
[2024-01-15] MEDS: Mineral Oil/Petrolatum,White 106 GM Tube 1 APPL TOPICAL (08:42)
[2024-01-15] MEDS: Topiramate 25 MG TABLET 100 MG PO ×3 (08:43→21:06)
[2024-01-15] MEDS: cephALEXin 500 MG CAPSULE PO ×2 (08:44→21:06)
[2024-01-15] MEDS: Gabapentin 400 MG CAPSULE PO ×3 (08:44→21:06)
[2024-01-15] MEDS: Doxycycline Monohydrate 100 MG CAPSULE PO ×2 (08:44→21:06)
[2024-01-15] MEDS: DULoxetine HCl 60 MG CAPSULE.DR PO ×2 (08:44→21:06)
[2024-01-15 08:45] VITALS: BP 108/60; PULSE 64
[2024-01-15] MEDS: Propranolol HCL 20 MG TABLET PO ×3 (08:45→21:06)
[2024-01-15] MEDS: Spironolactone 25 MG TABLET 50 MG PO (08:45)
[2024-01-15] MEDS: methADONE HCl 20 MG/2 ML ORAL.CONC 150 MG PO (08:47)
[2024-01-15] MEDS: hydrOXYzine HCL 50 MG TABLET PO ×2 (11:22→18:49)
--- NOTE | 2024-01-15 12:09 | PC.NURSE ---
Post void residual bladder scan result 43ccs. Dr Steel informed.
[2024-01-15 14:04] VITALS: BP 134/83; PULSE 70; RESP 16; O2SAT 96
[2024-01-15 14:05] VITALS: BP 134/80; PULSE 70
[2024-01-15] MEDS: Nicotine Polacrilex 2 MG GUM 4 MG BUCCAL ×3 (15:02→23:19)
[2024-01-15] MEDS: Nicotine 21 MG PATCH.TD24 TRANSDERMA (15:54)
--- NOTE | 2024-01-15 15:56 | HO.PSYCHPN ---
Subjective Subjective Date of Service: 01/15/24 Reason For Visit: SI Interim History: cooperative. discus plan for section 35, and rationale, as well as plan to not restart valium or flexeril, as well as rationale. pt upset, struggling to manage her behavior throughout the day. per staff, not attending groups. c/o dep/anx. +SI. c/o urinary retention. refusing lactulose. Mental Status Exam Mental Status Exam Narrative: Pt is up and about today, alert; behavior is cooperative and calm; dressed in [facility]; mood is not assessed; eye contact appropriate; Speech is normal rate, volume and prosody and not pressured; thought process is organized and goal directed; Thought content is on tx; no SI/SIBI/HI/AVH expressed. Diagnostics Vital Signs (24Hr): Vital Signs - 24 hr 01/14/24 19:50 01/15/24 07:55 01/15/24 08:45 Temperature 97.7 F 97.5 F Pulse Rate 69 64 Respiratory Rate 16 16 Blood Pressure 140/71 H 108/60 108/60 Pulse Oximetry 95 99 Oxygen Delivery Method Room Air Room Air 01/15/24 08:45 01/15/24 14:04 01/15/24 14:05 Temperature Pulse Rate 64 70 70 Respiratory Rate 16 Blood Pressure 108/60 134/83 134/80 Pulse Oximetry 96 Oxygen Delivery Method Room Air BMI result Body Mass Index 42.2 Labs 01/13/24 02:14 01/13/24 02:14 Labs: Laboratory Results - last 48 hr 01/13/24 02:39 Urine Opiates Screen Cancelled Ur Buprenorphine Scrn Cancelled Ur Oxycodone Screen Cancelled Urine Methadone Screen Cancelled Urine Fentanyl Screen Cancelled Ur Barbiturates Screen Cancelled Ur Phencyclidine Scrn Cancelled Ur Amphetamines Screen Cancelled U Benzodiazepines Scrn Cancelled Urine Cocaine Screen Cancelled U Marijuana (THC) Screen Cancelled Imaging Radiology Impressions: ITS Impressions Hand/Wrist X-Ray 01/13/24 07:57 IMPRESSION: Soft tissue foreign body in the distal forearm suggestive of a broken needle and diffuse soft tissue swelling. Medications Medications Current Medications Acetaminophen (Acetaminophen 325 Mg Tablet) 650 mg PO Q6H PRN PRN Reason: Headache/Pain Mild Scale (1-3) Al Hydroxide/Mg Hydroxide (Magnesium Hydrox/Alum Hydrox 30 Ml Oral.Susp) 30 ml PO Q6H PRN PRN Reason: Heartburn/Nausea Aspirin (Aspirin 81 Mg Tab.Chew) 81 mg PO DAILY [facility] Last Admin: 01/15/24 10:34 Dose: Not Given Cephalexin HCl (Cephalexin 500 Mg Capsule) 500 mg PO BID [facility] Last Admin: 01/15/24 08:44 Dose: 500 mg Doxycycline Monohydrate (Doxycycline Monohydrate 100 Mg Capsule) 100 mg PO BID [facility] Last Admin: 01/15/24 08:44 Dose: 100 mg Duloxetine HCl (Duloxetine Hcl 60 Mg Capsule.Dr) 60 mg PO BID [facility] Last Admin: 01/15/24 08:44 Dose: 60 mg Gabapentin (Gabapentin 400 Mg Capsule) 400 mg PO TID [facility] Last Admin: 01/15/24 14:05 Dose: 400 mg Hydroxyzine HCl (Hydroxyzine Hcl 50 Mg Tablet) 50 mg PO Q4H PRN PRN Reason: Anxiety Last Admin: 01/15/24 11:22 Dose: 50 mg Lactulose (Lactulose 20 Gm/30 Ml Solution) 30 gm PO DAILY [facility] Last Admin: 01/15/24 08:43 Dose: Not Given Magnesium Hydroxide (Milk Of Magnesia 30 Ml Oral.Susp) 30 ml PO DAILY PRN PRN Reason: Constipation Methadone HCl (Methadone Hcl 20 Mg/2 Ml Oral.Conc) 150 mg PO DAILY [facility] Last Admin: 01/15/24 08:47 Dose: 150 mg Multi-Ingred Cream/Lotion/Oil/Oint (Mineral Oil/Petrolatum,White 106 Gm Tube) 1 appl TOPICAL TID [facility]; Protocol Last Admin: 01/15/24 14:53 Dose: Not Given Nicotine (Nicotine 21 Mg Patch.Td24) 21 mg TRANSDERMA DAILY [facility] Last Admin: 01/15/24 15:54 Dose: 21 mg Nicotine Polacrilex (Nicotine Polacrilex 2 Mg Gum) 4 mg BUCCAL Q2H PRN PRN Reason: Nicotine Cravings Last Admin: 01/15/24 15:02 Dose: 4 mg Propranolol HCl (Propranolol Hcl 20 Mg Tablet) 20 mg PO TID [facility]; Protocol Last Admin: 01/15/24 14:05 Dose: 20 mg Spironolactone (Spironolactone 25 Mg Tablet) 50 mg PO DAILY [facility]; Protocol Last Admin: 01/15/24 08:45 Dose: 50 mg Topiramate (Topiramate 25 Mg Tablet) 100 mg PO TID [facility] Last Admin: 01/15/24 14:07 Dose: 100 mg Trazodone HCl (Trazodone Hcl 50 Mg Tablet) 50 mg PO BEDTIME MRX1 PRN PRN Reason: Insomnia Allergies Allergies Allergy/AdvReac Type Severity Reaction Status Date / Time quetiapine [From SEROQUEL] Allergy Severe THROAT Verified 01/13/24 02:00 SWELLING azithromycin [AZITHROMYCIN] Allergy Unknown Unknown Verified 01/13/24 02:00 erythromycin base Allergy Unknown RASH Verified 01/13/24 02:00 [ERYTHROMYCIN BASE] olanzapine [From ZYPREXA] Allergy Unknown PEDAL EDEMA Verified 01/13/24 02:00 sulfacetamide Allergy Unknown Unknown Verified 01/13/24 02:00 [From Sulfacet-R] sulfamethoxazole Allergy Unknown ITCHING Verified 01/13/24 02:00 [From BACTRIM] sulfur [From Sulfacet-R] Allergy Unknown Unknown Verified 01/13/24 02:00 trimethoprim [From BACTRIM] Allergy Unknown ITCHING Verified 01/13/24 02:00 risperidone [From RISPERDAL] AdvReac Unknown TWITCHING Verified 01/13/24 02:00 seafood AdvReac Unknown Vomiting Verified 01/13/24 02:00 shellfish derived AdvReac Unknown VOMITING Verified 01/13/24 02:00 [SHELLFISH DERIVED] trazodone AdvReac restless Verified 01/13/24 02:00 legs Assessment & Plan Assessment & Plan (1) Opioid use disorder, severe, dependence: Status: Acute Code(s): F11.20 - Opioid dependence, uncomplicated (2) UTI (urinary tract infection): Status: Acute Code(s): N39.0 - Urinary tract infection, site not specified (3) Cocaine abuse: Status: Acute Code(s): F14.10 - Cocaine abuse, uncomplicated (4) Chronic post-traumatic stress disorder (PTSD): Status: Acute Code(s): F43.12 - Post-traumatic stress disorder, chronic (5) Foreign body (FB) in soft tissue: Status: Acute Code(s): M79.5 - Residual foreign body in soft tissue (6) Depression with suicidal ideation: Status: Acute Code(s): F32.A - Depression, unspecified; R45.851 - Suicidal ideations Plan 01/13: as pt was released from residential 01/11 after approximately a month incarcerated, she has been receiving her medications. she was not prescribed valium in residential, although her utox at presentation was benzo POS. will restart and titrate her prior medications regimen from residential. methadone verified. refer for rehabs. T/C section 35. 01/14: NO BENZOS OR MUSCLE RELAXANTS. section 35. continue current mgmt. Reason for continued inpatient stay Substantial Risk for: harm to self, inability to function and rapid decompensation Time Spent With Patient Time: Total time managing care of this patient today __35__ minutes.
[2024-01-15 17:02] LABS: Ammonia 58 umol/L (13-55)
[2024-01-15 17:09] LABS: Anion Gap 12 (12-20); Blood Urea Nitrogen 6 mg/dL (9-16); Calcium 9.6 mg/dL (8.4-10.2); Carbon Dioxide 24 mmol/L (22-29); Chloride 104 mmol/L (96-108); Creatinine Clr Calc Pharmacy 112.3; Estimated Glomerular Filt Rate > 60; Glucose Random 137 mg/dL (60-115); Potassium 4.1 mmol/L (3.3-5.1); Sodium 136 mmol/L (135-145)
[2024-01-15] MEDS: Acetaminophen 325 MG TABLET 650 MG PO (18:49)
[2024-01-15] MEDS: Magnesium Hydrox/Alum Hydrox 30 ML ORAL.SUSP PO (18:56)
[2024-01-15 20:21] VITALS: BP 115/60; PULSE 66; RESP 18; TEMP 36.4; O2SAT 99
[2024-01-15] MEDS: Melatonin 3 MG TABLET 9 MG PO (21:27)
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
[2024-01-16] MEDS: Nicotine Polacrilex 2 MG GUM 4 MG BUCCAL ×7 (04:15→20:09)
[2024-01-16 09:02] VITALS: BP 111/56; PULSE 60; RESP 14; TEMP 36.6; O2SAT 99
[2024-01-16] MEDS: Nicotine 21 MG PATCH.TD24 TRANSDERMA (09:03)
[2024-01-16 09:04] VITALS: BP 111/56; PULSE 60
[2024-01-16] MEDS: DULoxetine HCl 60 MG CAPSULE.DR PO ×2 (09:04→20:09)
[2024-01-16] MEDS: Topiramate 25 MG TABLET 100 MG PO ×3 (09:04→20:05)
[2024-01-16] MEDS: Spironolactone 25 MG TABLET 50 MG PO (09:04)
[2024-01-16] MEDS: cephALEXin 500 MG CAPSULE PO ×2 (09:04→20:09)
[2024-01-16] MEDS: Propranolol HCL 20 MG TABLET PO ×3 (09:04→20:05)
[2024-01-16] MEDS: Gabapentin 400 MG CAPSULE PO ×3 (09:05→20:05)
[2024-01-16] MEDS: methADONE HCl 20 MG/2 ML ORAL.CONC 150 MG PO (09:05)
[2024-01-16] MEDS: Doxycycline Monohydrate 100 MG CAPSULE PO ×2 (09:05→20:05)
[2024-01-16] MEDS: hydrOXYzine HCL 50 MG TABLET PO ×3 (11:45→19:22)
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
[2024-01-16 14:48] VITALS: BP 128/79; PULSE 68
[2024-01-16] MEDS: Acetaminophen 325 MG TABLET 650 MG PO (17:30)
[2024-01-16 20:05] VITALS: BP 99/52; PULSE 65; RESP 18; TEMP 36.4; O2SAT 98
[2024-01-16] MEDS: Melatonin 3 MG TABLET 9 MG PO (20:09)
[2024-01-16] MEDS: Mineral Oil/Petrolatum,White 106 GM Tube 1 APPL TOPICAL (20:50)
[2024-01-17 09:31] VITALS: BP 121/64; PULSE 69; RESP 16; TEMP 36.5; O2SAT 99
[2024-01-17] MEDS: methADONE HCl 20 MG/2 ML ORAL.CONC 150 MG PO (10:26)
[2024-01-17] MEDS: Nicotine 21 MG PATCH.TD24 TRANSDERMA (10:30)
[2024-01-17 10:31] VITALS: BP 116/70
[2024-01-17] MEDS: Topiramate 25 MG TABLET 100 MG PO ×3 (10:31→20:20)
[2024-01-17] MEDS: Spironolactone 25 MG TABLET 50 MG PO (10:31)
[2024-01-17] MEDS: cephALEXin 500 MG CAPSULE PO ×2 (10:31→20:21)
[2024-01-17] MEDS: Doxycycline Monohydrate 100 MG CAPSULE PO ×2 (10:31→20:21)
[2024-01-17] MEDS: Aspirin 81 MG TAB.CHEW PO (10:31)
[2024-01-17] MEDS: Nicotine Polacrilex 2 MG GUM 4 MG BUCCAL ×3 (10:31→22:08)
[2024-01-17 10:32] VITALS: BP 116/70; PULSE 68
[2024-01-17] MEDS: hydrOXYzine HCL 50 MG TABLET PO ×3 (10:32→20:21)
[2024-01-17] MEDS: Propranolol HCL 20 MG TABLET PO ×3 (10:32→20:21)
[2024-01-17] MEDS: DULoxetine HCl 60 MG CAPSULE.DR PO ×2 (10:32→20:21)
[2024-01-17] MEDS: Gabapentin 400 MG CAPSULE PO ×3 (10:32→20:21)
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
[2024-01-17 15:40] VITALS: BP 105/62; PULSE 61; RESP 16; TEMP 36.6; O2SAT 97
[2024-01-17 15:41] VITALS: BP 105/62; PULSE 61
[2024-01-17 20:00] VITALS: BP 127/64; PULSE 66; RESP 16; TEMP 36.4; O2SAT 96
[2024-01-17] MEDS: Melatonin 3 MG TABLET 9 MG PO (20:20)
[2024-01-18] MEDS: Nicotine Polacrilex 2 MG GUM 4 MG BUCCAL ×6 (01:50→23:30)
[2024-01-18] MEDS: hydrOXYzine HCL 50 MG TABLET PO ×4 (01:50→23:30)
--- NOTE | 2024-01-18 03:59 | PC.NURSE ---
ELLYN HAD NO COMPLAINTS OF URINARY RETENTION. DECLINED TO HAVE BLADDER SCAN DONE.
[2024-01-18 08:55] VITALS: BP 113/62; PULSE 63; RESP 14; TEMP 36.5; O2SAT 100
[2024-01-18] MEDS: Nicotine 21 MG PATCH.TD24 TRANSDERMA (08:58)
[2024-01-18] MEDS: methADONE HCl 20 MG/2 ML ORAL.CONC 150 MG PO (08:59)
[2024-01-18 09:01] VITALS: BP 113/62; PULSE 63
[2024-01-18] MEDS: Gabapentin 400 MG CAPSULE PO ×3 (09:01→20:28)
[2024-01-18] MEDS: Propranolol HCL 20 MG TABLET PO ×3 (09:01→20:28)
[2024-01-18 09:02] VITALS: BP 113/62
[2024-01-18] MEDS: Spironolactone 25 MG TABLET 50 MG PO (09:02)
[2024-01-18] MEDS: DULoxetine HCl 60 MG CAPSULE.DR PO ×2 (09:02→20:28)
[2024-01-18] MEDS: Topiramate 25 MG TABLET 100 MG PO ×3 (09:02→20:27)
[2024-01-18] MEDS: Aspirin 81 MG TAB.CHEW PO (09:03)
[2024-01-18] MEDS: cephALEXin 500 MG CAPSULE PO ×2 (09:03→20:30)
[2024-01-18] MEDS: Doxycycline Monohydrate 100 MG CAPSULE PO ×2 (09:03→20:30)
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
[2024-01-18 15:36] VITALS: BP 137/77; PULSE 67
[2024-01-18] MEDS: Mineral Oil/Petrolatum,White 106 GM Tube 1 APPL TOPICAL ×2 (18:25→20:29)
[2024-01-18 20:15] VITALS: BP 152/96; PULSE 71; RESP 20; TEMP 36.4; O2SAT 95
[2024-01-18] MEDS: Melatonin 3 MG TABLET 9 MG PO (20:26)
--- NOTE | 2024-01-19 00:39 | PC.NURSE ---
bladder scan-refused. reports no issues with urination other than c/o strong odor. fluids encouraged.
[2024-01-19] MEDS: Nicotine Polacrilex 2 MG GUM 4 MG BUCCAL ×2 (01:42→03:21)
[2024-01-19] MEDS: hydrOXYzine HCL 50 MG TABLET PO (03:21)
[2024-01-19] MEDS: DULoxetine HCl 60 MG CAPSULE.DR PO (08:30)
[2024-01-19] MEDS: Nicotine 21 MG PATCH.TD24 TRANSDERMA (08:30)
[2024-01-19] MEDS: Aspirin 81 MG TAB.CHEW PO (08:30)
[2024-01-19 08:31] VITALS: BP 108/62
[2024-01-19] MEDS: Spironolactone 25 MG TABLET 50 MG PO (08:31)
[2024-01-19] MEDS: Doxycycline Monohydrate 100 MG CAPSULE PO (08:31)
[2024-01-19 08:32] VITALS: BP 108/62; PULSE 61
[2024-01-19] MEDS: Propranolol HCL 20 MG TABLET PO (08:32)
[2024-01-19] MEDS: cephALEXin 500 MG CAPSULE PO (08:32)
[2024-01-19] MEDS: methADONE HCl 20 MG/2 ML ORAL.CONC 150 MG PO (08:32)
[2024-01-19] MEDS: Gabapentin 400 MG CAPSULE PO (08:32)
[2024-01-19 08:41] VITALS: BP 108/62; PULSE 61; RESP 20; TEMP 36.4; O2SAT 100
[2024-01-19] MEDS: Nystatin Powder 15 GM BOTTLE 1 APPL TOPICAL (08:45)
[2024-01-19] MEDS: Mineral Oil/Petrolatum,White 106 GM Tube 1 APPL TOPICAL (08:46)
== END 2024-01-19 11:01 | DRG 754 ==
LOC: HO.ED 10:38 → HO.PADLT16 14:12
PROVIDERS: Physician Assistant Medical; Psychiatry & Neurology Psychiatry; Admitting Provider Psychiatry & Neurology Psychiatry; Emergency Provider Emergency Medicine; PCP Internal Medicine; Visit Provider Psychiatry & Neurology Psychiatry
DX: F32.A Depression, unspecified (principal); R45.851 Suicidal ideations; E66.9 Obesity, unspecified; F11.20 Opioid dependence, uncomplicated; M79.5 Residual foreign body in soft tissue; F14.10 Cocaine abuse, uncomplicated; F17.210 Nicotine dependence, cigarettes, uncomplicated; F43.12 Post-traumatic stress disorder, chronic; N39.0 Urinary tract infection, site not specified; Z68.41 Body mass index [BMI] 40.0-44.9, adult; Z20.822 Contact with and (suspected) exposure to COVID-19; Z59.02 Unsheltered homelessness; Z71.6 Tobacco abuse counseling; Z79.82 Long term (current) use of aspirin; Z79.899 Other long term (current) drug therapy
CPT/HCPCS: 36415; 73110; 73130; 80048; 80053; 80307; 81001; 82140; 82550; 83605; 84702; 85025; 87086; 87635; 93005; 99285; S9485

== ENCOUNTER → 2024-01-13 11:34 | Outpatient (BNV) | payer OTHER, SELFPAY | PROVIDERS: Admitting Provider Psychiatry & Neurology Psychiatry; Emergency Provider Emergency Medicine; PCP Internal Medicine; Visit Provider Internal Medicine Cardiovascular Disease | DX: R94.31 Abnormal electrocardiogram [ECG] [EKG] (principal) | CPT/HCPCS: 93010 ==

== ENCOUNTER → 2024-01-13 13:56 | Outpatient (BNV) | payer OTHER, SELFPAY | PROVIDERS: Admitting Provider Psychiatry & Neurology Psychiatry; Emergency Provider Emergency Medicine; PCP Internal Medicine; Visit Provider Psychiatry & Neurology Psychiatry | DX: F14.10 Cocaine abuse, uncomplicated (principal); F11.20 Opioid dependence, uncomplicated; N39.0 Urinary tract infection, site not specified; F43.12 Post-traumatic stress disorder, chronic; M79.5 Residual foreign body in soft tissue; R45.851 Suicidal ideations | CPT/HCPCS: 90792; 99231; 99232; 99239 ==

== ENCOUNTER → 2024-01-13 13:56 | Outpatient (BNV) | payer OTHER, SELFPAY | PROVIDERS: Admitting Provider Psychiatry & Neurology Psychiatry; Emergency Provider Emergency Medicine; PCP Internal Medicine; Visit Provider Physician Assistant Surgical | DX: M79.5 Residual foreign body in soft tissue (principal); F32.A Depression, unspecified; R45.851 Suicidal ideations | CPT/HCPCS: 99222 ==

== ENCOUNTER 2024-03-29 22:51 | Emergency (ER) | payer OTHER, SELFPAY ==
[2024-03-29 23:03] VITALS: PULSE 90; O2SAT 96
[2024-03-29 23:04] VITALS: BP 112/54; PULSE 85; RESP 20; TEMP 36.4; O2SAT 95; BMI 44.5
[2024-03-29 23:14] VITALS: BP 112/54; PULSE 84; RESP 20; TEMP 36.9; O2SAT 98
--- NOTE | 2024-03-29 23:46 | PC.NURSE ---
Patient declined labs and IV insertion until physician consult occurs.
[2024-03-30] VITALS (8 sets, daily range): BP systolic 97–129; BP diastolic 48–71; PULSE 60–87; RESP 12–20; TEMP 36.2–36.9; O2SAT 7–98
--- NOTE | 2024-03-30 06:28 | ECG_ITS ---
Test Reason : drug use Blood Pressure : / mmHG Vent. Rate : 068 BPM Atrial Rate : 068 BPM P-R Int : 156 ms QRS Dur : 088 ms QT Int : 466 ms P-R-T Axes : 059 020 008 degrees QTc Int : 495 ms Normal sinus rhythm Nonspecific T wave abnormality Abnormal ECG When compared with ECG of 13-JAN-2024 11:39, No significant change was found Referred By: Destiny Hickman Electronically Signed By:Amadeo Gutierrez
--- NOTE | 2024-03-30 06:38 | ED_ITS ---
HPI - General Adult General Chief complaint: Psychiatric Symptoms Stated complaint: PAIN ALL OVER, SWOLLEN HANDS Time Seen by Provider: 03/30/24 06:28 Source: patient, EMS and RN notes reviewed Mode of arrival: EMS Limitations: no limitations History of Present Illness ED Provider: elie PALACIOS narrative: Patient is a 44-year-old female with history of obesity, opioid use disorder, rhabdomyolisis, depression, thrombocyopenia, bipolar disorder, PTSD, IVDU, toxic metabolic encephalopathy, hepatitis C presenting to the ED via EMS stating that she used cocaine and fentanyl yesterday in a suicide attempt. During assessment patient is now stating that she presented to the ED for body aches, difficulty ambulating, nausea, and redness/swelling to bilateral hands. She admits to injecting fentanyl into her hands. Denies fevers or drainage/discharge from hands. She is currently denying suicidal ideation and is now stating that she used $500 worth of cocaine. Denies chest pain, palpitations, or dyspnea. Denies abdominal pain, nausea, vomiting, diarrhea. Denies homicidal ideation or auditory or visual hallucinations. MD complaint: hand swelling, body aches, SI Onset (ago): day(s) Location: upper extremity Quality: aching Associated symptoms: malaise, nausea/vomiting and weakness Treatments prior to arrival: none Related Data Home Medications ?Medication ?Instructions ?Recorded ?Confirmed methadone 10 mg/mL oral 150 mg PO DAILY 06/16/22 01/14/24 concentrate (Methadose) duloxetine 60 mg capsule,delayed 60 mg PO BID 11/17/23 12/26/23 release gabapentin 400 mg capsule 400 mg PO TID@0900,1700,2100 11/17/23 12/26/23 hydroxyzine HCl 25 mg tablet 25 mg PO TID PRN Anxiety 11/30/23 12/26/23 propranolol 20 mg tablet 20 mg PO TID 12/26/23 12/26/23 topiramate 100 mg tablet 100 mg PO TID 12/26/23 12/26/23 Previous Rx's ?Medication ?Instructions ?Recorded aspirin 81 mg chewable tablet 81 mg PO DAILY 30 days #30 tabs 11/26/23 lactulose 20 gram/30 mL oral 30 g (45 mL) PO DAILY@0600 30 days 11/26/23 solution #1,350 mL spironolactone 50 mg tablet 50 mg PO DAILY 30 days #30 tabs 11/26/23 melatonin 3 mg tablet 9 mg (3 x 3 mg) PO BEDTIME #0 tabs 01/19/24 nicotine (polacrilex) 2 mg gum 4 mg buccal Q2H PRN Nicotine 01/19/24 Cravings #0 ea nicotine 21 mg/24 hr daily 21 mg transdermal DAILY #0 ea 01/19/24 transdermal patch nystatin 100,000 unit/gram topical 1 appl topical BID #0 grams 01/19/24 powder white petrolatum-mineral oil 1 appl topical TID #0 grams 01/19/24 topical cream (Dermacerin topical cream) Allergies Allergy/AdvReac Type Severity Reaction Status Date / Time quetiapine [From SEROQUEL] Allergy Severe THROAT Verified 03/29/24 23:09 SWELLING azithromycin [AZITHROMYCIN] Allergy Unknown Unknown Verified 03/29/24 23:09 erythromycin base Allergy Unknown RASH Verified 03/29/24 23:09 [ERYTHROMYCIN BASE] olanzapine [From ZYPREXA] Allergy Unknown PEDAL EDEMA Verified 03/29/24 23:09 sulfacetamide Allergy Unknown Unknown Verified 03/29/24 23:09 [From Sulfacet-R] sulfamethoxazole Allergy Unknown ITCHING Verified 03/29/24 23:09 [From BACTRIM] sulfur [From Sulfacet-R] Allergy Unknown Unknown Verified 03/29/24 23:09 trimethoprim [From BACTRIM] Allergy Unknown ITCHING Verified 03/29/24 23:09 chlorpromazine AdvReac Unknown Involuntary Verified 03/29/24 23:09 [From Thorazine] Spasms risperidone [From RISPERDAL] AdvReac Unknown TWITCHING Verified 03/29/24 23:09 seafood AdvReac Unknown Vomiting Verified 03/29/24 23:09 shellfish derived AdvReac Unknown VOMITING Verified 03/29/24 23:09 [SHELLFISH DERIVED] trazodone AdvReac restless Verified 03/29/24 23:09 legs Review of Systems 2 Review of Systems: As per HPI. Yes all other systems are reviewed and are negative Constitutional: Constitutional: Reports as per HPI [facility] Past Medical History Medical History Depression Substance abuse Hepatitis C Depression Opioid dependence Leg pain, bilateral Rhabdomyolysis Opioid use disorder, moderate, in sustained remission, dependence Bipolar 1 disorder Substance abuse Substance abuse Back pain Opioid dependence Social History Social History Household Members: None Housing: Homeless Housing Other:: Living with friends at times Do you presently have visiting nurse or other home services: No Unable to assess alcohol history related to: Unable to respond and Unknown Alcohol intake: former Comment: 1:1 sitter Patient Tobacco Use Status: Current everyday Tobacco user Tobacco use type: Cigarette Cigarette Packs Per Day: 0.5 Cigarettes Per Day: 10 Years Smoked: 29 Smoked in Last 30 Days: Yes e-Cigarette/Vaping Use: Currently Using Second Hand Smoke Exposure: No Substance Use Type: Crack/Cocaine and IV Drugs Substance Use Frequency: Chronic Longstanding Last Used Substance: Just Prior to Admission Any prior treatment program specific to substance use: Yes Advance Directives: Yes Advance Directives on File: Yes Advance Directives Date on File: 12/28/20 Suicidal Behavior: Self-injurious behavior Current/Past Psychiatric Disorders: Chronic mental illess and Substance abuse [place] Symptoms: Hopelessness and Worthlessness Family History: Suicide Access to Firearms: Yes service: No Current occupational status: unemployed and disabled Sexual orientation: Straight/Heterosexual Physical Exam ED Vital Signs: Vital Signs - 24 hr 03/29/24 23:04 03/29/24 23:14 03/30/24 00:44 Temperature 97.5 F 98.5 F 98.5 F Pulse Rate 85 84 80 Respiratory Rate 20 20 14 Blood Pressure 112/54 L 112/54 L 99/52 L Pulse Oximetry 95 98 95 Oxygen Delivery Method Room Air Room Air Room Air 03/30/24 04:11 03/30/24 06:31 03/30/24 13:41 Temperature 97.8 F Pulse Rate 69 69 60 Respiratory Rate 16 16 12 Blood Pressure 97/55 L 119/69 Pulse Oximetry 93 97 96 Oxygen Delivery Method Room Air Room Air Room Air BMI result Body Mass Index 44.5 Vital signs have been reviewed and appear to be correct. Blood pressure normal. Heart rate normal. Respiratory rate normal. Temperature normal. Oxygen saturation normal. Const General: cooperative, no acute distress and poor hygiene Nutritional Appearance: obese Orientation/consciousness: oriented to person, oriented to place, oriented to time and patient oriented x3 Limitations: no limitations HENMT Head: Yes normocephalic and Yes atraumatic Ears: external ears normal General nose exam: Normal external nose present Face and sinus: Yes face symmetric Mouth: oropharynx normal and moist mucous membranes Throat: Yes uvula midline Eyes Pupils: Equal, round and reactive pupils present Neck Neck: Yes normal visual inspection and Yes supple Resp Effort & Inspection: normal respiratory effort and able to speak in complete sentences Auscultation: clear to auscultation bilaterally Cardio Rate: regular rate Rhythm: regular rhythm Heart sounds: S1 normal heart sound present and S2 normal heart sound present GI Palpation (GI): Soft to palpation and nontender Auscultation: normoactive bowel sounds General: Yes no CVA tenderness Back/Spine/Pelvis Back: no CVA tenderness Skin General skin exam: elasticity normal and turgor normal Neuro General: oriented to person, oriented to place, oriented to time, patient oriented x3, moves all extremities, no focal motor deficits and CN's II-XI intact bilaterally Cranial nerves: Yes Equal, round and reactive pupils present Cognition (Neuro): normal cognition Extrem General: Yes full ROM, Yes no pedal edema and Yes no calf tenderness Right upper extremity: Extremity exam: right hand (erythema to dorsal hand with multiple puncture wounds) Details: normal capillary refill, neuromotor exam normal, neurosensory exam normal, vascular exam Details: radial pulse present, normal ROM of fingers, warmth Location: of the dorsal hand and swelling Location: of the dorsal hand Left upper extremity: hand (erythema to dorsal hand with multiple puncture wounds) Details: normal capillary refill, neurosensory exam normal, tenderness Location: of the dorsal hand, vascular exam Details: radial pulse present, normal ROM of fingers, warmth Location: of the dorsal hand and swelling Location: of the dorsal hand Psych Mental Status: mental status grossly normal Affect: normal affect Thought process: Normal thought process present Medications Administered Discontinued Medications Generic Name Dose Route Start Last Admin Trade Name Josesitoq PRN Reason Stop Dose Admin Acetaminophen 650 mg 03/30/24 15:01 03/30/24 15:15 Acetaminophen 325 Mg Tablet PO 03/30/24 15:02 650 mg ONCE ONE Administration Doxycycline Monohydrate 100 mg 03/30/24 09:03 03/30/24 10:20 Doxycycline Monohydrate 100 Mg Capsule PO 03/30/24 09:04 100 mg ONCE ONE Administration Hydroxyzine HCl 25 mg 03/30/24 07:30 03/30/24 07:40 Hydroxyzine Hcl 25 Mg Tablet PO 03/30/24 07:31 25 mg ONCE ONE Administration Sodium Chloride 1,000 mls @ 999 mls/hr 03/30/24 07:45 03/30/24 12:14 Ns IV 03/30/24 08:45 Infused .Q1H1M EDER Infusion Ceftriaxone Sodium 1 gm/ 50 mls @ 100 mls/hr 03/30/24 09:03 03/30/24 11:14 Sodium Chloride IV 03/30/24 09:32 Infused ONCE ONE Infusion Sodium Chloride 1,000 mls @ 999 mls/hr 03/30/24 10:30 03/30/24 14:59 Ns IV 03/30/24 11:30 Infused .Q1H1M EDER Infusion Methadone HCl 180 mg 03/30/24 15:01 03/30/24 15:16 Methadone Hcl 20 Mg/2 Ml Oral.Conc PO 03/30/24 15:02 180 mg ONCE ONE Administration Potassium Chloride 20 meq 03/30/24 07:47 03/30/24 08:16 Potassium Chloride Packet 20 Meq Packet PO 03/30/24 07:48 20 meq ONCE ONE Administration Medical Decision Making Medical Decision Making MDM Narrative: Patient is a 44-year-old female with history of obesity, opioid use disorder, rhabdomyolisis, depression, thrombocyopenia, bipolar disorder, PTSD, IVDU, toxic metabolic encephalopathy, hepatitis C presenting to the ED via EMS stating that she used cocaine and fentanyl yesterday in a suicide attempt. On exam patient is awake, A+Ox3, VS WNL, afebrile, normal neurological exam without focal deficits, physical exam findings as above. Given reported symptoms and physical exam findings, initial differential includes anxiety, depression, suicidal ideation, polysubstance abuse, bilateral hand cellulitis, rhabdomyolysis, electrolyte abnormality. Labs notable for chronic appearing leukopenia, mild chronic appearing anemia and thrombocytopenia, hypokalemia, CPK elevated at 874. PO potassium ordered as well as doxycycline and ceftriaxone for cellulitis. Per Kam from CARE team patient not meeting admission criteria at this time, denying suicidal ideation but requesting help with detox during discussion, so he will place addiction medicine consult. Patient will be dual diagnosis bed search. Urine drug screen positive for opiates, methadone, fentanyl, benzos, and cocaine. CPK improved with fluids. Will order addition liter and medically clear at this time, patient placed on physician observation at 16:08 pending dual bed search. Differential Diagnosis Differential Diagnoses: The differential diagnosis associated with the presentation includes As per [facility] Admission/Observation Consideration of admission/observation: Escalation of care including admission/observation considered Consult Healthcare Provider Management of the patient was discussed with: Behavioral Health Provider Lab Data [facility] Lab Attestation statement: I reviewed the patient's lab results. As per [facility] 03/30/24 06:53 03/30/24 06:53 Labs: Lab Results 03/30/24 03/30/24 Range/Units 06:53 15:40 WBC 3.8 L (4.8-10.8) X10*3/uL RBC 3.75 L D (4.20-5.50) X10*6/uL Hgb 11.1 L D (12.0-16.0) g/dl Hct 33.4 L D (37.0-47.0) % MCV 89.1 (80.0-98.0) fL MCH 29.6 (27.0-33.0) pg MCHC 33.2 (31.0-35.0) g/dl RDW 15.1 (11.0-16.0) % Plt Count 97 L (160-400) X10*3/uL MPV 10.2 (9.4-12.3) fL Immature Gran % (Auto) 0.3 (0.0-0.4) % Neut % (Auto) 40.2 L (45-73) % Lymph % (Auto) 48.8 H (20-40) % [place] % (Auto) 8.4 (2-11) % Eos % (Auto) 1.8 (0-4) % Baso % (Auto) 0.5 (0-2) % Lymph # (Auto) 1.9 (1.2-4.9) X10*3/uL [place] # (Auto) 0.3 (0.1-1.2) X10*3/uL Eos # (Auto) 0.1 (0.0-0.4) X10*3/uL Baso # (Auto) 0.0 (0.0-0.2) X10*3/uL Abs Immat Gran (auto) 0.01 (0.00-0.03) X10*3/uL Absolute Neuts (auto) 1.5 L (2.0-8.3) x10*3/uL Absolute Nucleated RBC 0.000 (0.0-0.012) X10*3/uL Nucleated RBC % (auto) 0.0 (0.0-0.2) /100WBC PT 14.7 H (11.1-13.3) SEC INR 1.2 H (0.9-1.1) Sodium 142 (135-145) mmol/L Potassium 3.1 L D (3.3-5.1) mmol/L Chloride 110 H (96-108) mmol/L Carbon Dioxide 25 (22-29) mmol/L Anion Gap 10 L (12-20) BUN 11 (9-16) mg/dL Creatinine 0.75 (0.5-1.4) mg/dL Estim Creat Clear Calc 122.4 Estimated GFR > 60 Random Glucose 84 (60-115) mg/dL Lactic Acid 1.0 (0.5-2.0) mmol/L Calcium 8.9 D (8.4-10.2) mg/dL Magnesium 2.3 (1.6-2.6) mg/dL Total Bilirubin 1.0 (0.0-1.0) mg/dL AST 47 H (5-31) U/L ALT 23 (0-31) U/L Alkaline Phosphatase 106 (39-117) U/L Total Creatine Kinase 874 H 657 H (26-140) U/L Troponin I High Sens 4.1 D (<3.5-17.0) ng/L Total Protein 6.4 L (6.5-8.0) g/dL Albumin 3.6 (3.5-5.0) g/dL Beta HCG, Quant < 2 mIU/mL Urine Color Dark Yellow Urine Appearance Clear Urine pH 6.5 (5.0-9.0) Ur Specific [place] 1.020 (1.005-1.025) Urine Protein Negative (Neg-Trace) mg/dL Urine Glucose (UA) Negative (Negative) mg/dL Urine Ketones Negative (Negative) mg/dL Urine Blood Negative (Negative) Urine Nitrite Negative (Negative) Ur Leukocyte Esterase Small (1+) H (Negative) Urine RBC 0-2 (0-2) /HPF Urine WBC 0-5 (0-5) /HPF Ur Squamous Epith Cells 0-2 (0-2) /HPF Calcium Oxalate Crystal Present Urine Bacteria None Seen (None Seen) Hyaline Casts 0-2 (0-2) /LPF Urine Opiates Screen POSITIVE H (Not Detect) Ur Buprenorphine Scrn Not Detected (Not Detect) ng/mL Ur Oxycodone Screen Not Detected (Not Detect) ng/mL Urine Methadone Screen Positive H (Not Detect) ng/mL Urine Fentanyl Screen POSITIVE H (Not Detect) Ur Barbiturates Screen Not Detected (Not Detect) Ur Phencyclidine Scrn Not Detected (Not Detect) Ur Amphetamines Screen Not Detected (Not Detect) U Benzodiazepines Scrn POSITIVE H (Not Detect) Urine Cocaine Screen POSITIVE H (Not Detect) U Marijuana (THC) Screen Not Detected (Not Detect) Ethyl Alcohol < 10 mg/dL External Record Review External record reviewed: Inpatient record, Office record and Outpatient record Prescription Management I considered prescription management with: Antibiotic Discharge Plan Discharge Clinical Impression: Cellulitis of hand, left, Polysubstance use disorder, Depression, Cellulitis of hand, right, Elevated CPK Patient Disposition: Still a Patient Additional Instructions: You have been evaluated in the emergency department today for skin infection, also known as cellulitis. Please take your prescribed antibiotics as directed for the full course of the medication. You can use Tylenol or ibuprofen per package instructions every 6 hours as needed for pain. If necessary, you can alternate these medications so that you can take one medication every 3 hours. For instance, at noon take ibuprofen, then at 3:00 p.m. take Tylenol, then at 6:00 p.m. take ibuprofen. Please schedule an appointment for follow-up with your primary care physician as soon as possible. Return to the emergency department if you experience recurrent vomiting, fevers greater than 100.4? F, increasing area of redness, warmth around the area, foul-smelling discharge from the area, increased tenderness around the area, or any other concerning symptoms. Prescriptions: No Action methadone [Methadose] 10 mg/mL concentrate 150 mg PO DAILY duloxetine 60 mg capsule,delayed release(DR/EC) 60 mg PO BID gabapentin 400 mg Capsule 400 mg PO TID@0900,1700,2100 spironolactone 50 mg tablet 50 mg PO DAILY 30 Days Qty: 30 0RF aspirin 81 mg Tablet,Chewable 81 mg PO DAILY 30 Days Qty: 30 0RF lactulose 20 gram/30 mL Solution 30 g PO DAILY@0600 30 Days Qty: 1350 0RF hydroxyzine HCl 25 mg tablet 25 mg PO TID PRN (Reason: Anxiety) propranolol 20 mg tablet 20 mg PO TID topiramate 100 mg tablet 100 mg PO TID nicotine (polacrilex) 2 mg Gum 4 mg buccal Q2H PRN (Reason: Nicotine Cravings) Qty: 0 0RF melatonin 3 mg Tablet 9 mg PO BEDTIME Qty: 0 0RF nicotine 21 mg/24 hr Patch 24 Hour 21 mg transdermal DAILY Qty: 0 0RF nystatin 100,000 unit/gram Powder 1 appl topical BID Qty: 0 0RF Protocol: Apply to: Apply to: affected intertriginous spaces Dermacerin Cream 1 appl topical TID Qty: 0 0RF Protocol: Apply to: Apply to: feet and legs B/L Interventions: [place]-Suicide Risk Severity Scale Last Done: 03/29/24 23:14 Print Language: Cameroonian
[2024-03-30 07:02] LABS: MANUAL DIFF FLAG NO
--- NOTE | 2024-03-30 07:05 | PC.NURSE ---
This RN assumed care, pt is alert and oriented. Breathing even and unlabored. Pt reports generalized body aches and bilat hand pain, 04/30. Pt is changed into safety clothing, 1:1 sitter at bedside. Pt requesting ativan and her methadone dose today, will call to verify
[2024-03-30 07:16] LABS: INTERNATIONAL NORM RATIO 1.2 (0.9-1.1); Prothrombin Time 14.7 SEC (11.1-13.3)
[2024-03-30 07:18] LABS: Basophils Percent Auto 0.5 % (0-2); Eosinophils Absolute Auto 0.1 X10*3/uL (0.0-0.4); Eosinophils Percent Auto 1.8 % (0-4); Hematocrit 33.4 % (37.0-47.0); Hemoglobin 11.1 g/dl (12.0-16.0); Imm Gran Abs Auto 0.01 X10*3/uL (0.00-0.03); Imm Gran Pct Auto 0.3 % (0.0-0.4); Lymphocytes Absolute Auto 1.9 X10*3/uL (1.2-4.9); Lymphocytes Percent Auto 48.8 % (20-40); Mean Corpuscular HGB Conc 33.2 g/dl (31.0-35.0); Mean Corpuscular Hemoglobin 29.6 pg (27.0-33.0); Mean Corpuscular Volume 89.1 fL (80.0-98.0); Mean Platelet Volume 10.2 fL (9.4-12.3); Monocytes Absolute Auto 0.3 X10*3/uL (0.1-1.2); Monocytes Percent Auto 8.4 % (2-11); Neutrophils Absolute Auto 1.5 x10*3/uL (2.0-8.3); Neutrophils Percent Auto 40.2 % (45-73); Red Blood Count 3.75 X10*6/uL (4.20-5.50); Red Cell Distribution Width 15.1 % (11.0-16.0); White Blood Count 3.8 X10*3/uL (4.8-10.8)
[2024-03-30 07:19] LABS: Platelet Count 97 X10*3/uL (160-400)
[2024-03-30 07:23] LABS: Alanine Aminotransferase 23 U/L (0-31); Albumin Level 3.6 g/dL (3.5-5.0); Alkaline Phosphatase 106 U/L (39-117); Anion Gap 10 (12-20); Aspartate Amino Transferase 47 U/L (5-31); Blood Urea Nitrogen 11 mg/dL (9-16); Calcium 8.9 mg/dL (8.4-10.2); Carbon Dioxide 25 mmol/L (22-29); Chloride 110 mmol/L (96-108); Creatinine Clr Calc Pharmacy 122.4; Estimated Glomerular Filt Rate > 60; Glucose Random 84 mg/dL (60-115); Magnesium 2.3 mg/dL (1.6-2.6); Potassium 3.1 mmol/L (3.3-5.1); Sodium 142 mmol/L (135-145); Total Protein 6.4 g/dL (6.5-8.0)
[2024-03-30 07:27] LABS: Ethanol < 10 mg/dL
[2024-03-30 07:28] LABS: Troponin-I High Sensitivity 4.1 ng/L (<3.5-17.0)
[2024-03-30 07:30] LABS: HCG Quantitative < 2 mIU/mL
[2024-03-30] MEDS: hydrOXYzine HCL 25 MG TABLET PO (07:40)
[2024-03-30] MEDS: Potassium Chloride Packet 20 MEQ PACKET PO (08:16)
[2024-03-30] MEDS: 0.9 % Sodium Chloride 1,000 ML 999 ML IV ×2 (08:17→12:14)
[2024-03-30] MEDS: cefTRIAXone sodium 1 GM in 0.9 % Sodium Chloride 50 ML IV (10:20)
[2024-03-30] MEDS: Doxycycline Monohydrate 100 MG CAPSULE PO ×2 (10:20→20:09)
--- NOTE | 2024-03-30 10:22 | PC.NURSE ---
pt medicated per order, pill swallowed whole with water
--- NOTE | 2024-03-30 14:22 | MHC.EDTECH ---
Attempted to collect blood work. Pt refused to do labs and have blood drawn. Pt states I'm not getting blood drawn . Pt said I will let you know when I'm ready, but I'm not doing it right now . Patient resting in bed. Patient states she is comfortable. Call lopez placed within reach. Sitter at bedside for patient safety.
--- NOTE | 2024-03-30 14:50 | PC.NURSE ---
last methadone dose 180mg given on 03/28/24 at 8:22am verified with jessee at [facility]
[2024-03-30] MEDS: Acetaminophen 325 MG TABLET 650 MG PO (15:15)
[2024-03-30] MEDS: methADONE HCl 20 MG/2 ML ORAL.CONC 180 MG PO (15:16)
[2024-03-30 15:48] LABS: Appearance Urine Clear; Color Urine Dark Yellow; Glucose Urine UA Negative (Negative); Leukocyte Esterase Urine Small (1+) (Negative); Nitrite Urine Negative (Negative); PH 6.5 (5.0-9.0); UMIC TRIGGER UACC YES; Urine Blood Negative (Negative); Urine Ketones Negative (Negative); Urine Protein Negative (Neg-Trace)
[2024-03-30 15:56] LABS: Amphetamine Screen Urine Not Detected (Not Detect); Barbiturates, Urine Not Detected (Not Detect); Benzodiazepines Screen Urine POSITIVE (Not Detect); Buprenorphine Scr Not Detected (Not Detect); Cannabinoid Screen Urine Not Detected (Not Detect); Cocaine Screen Urine POSITIVE (Not Detect); Fentanyl, urine POSITIVE (Not Detect); Methadone Screen, Urine Positive (Not Detect); Opiate Screen Urine POSITIVE (Not Detect); Oxycodone Screen Urine Not Detected (Not Detect); Phencyclidine Screen Urine Not Detected (Not Detect)
[2024-03-30 15:59] LABS: Bacteria Urine None Seen (None Seen); Calcium Oxalate Crystals Urine Present; Hyaline Casts Urine 0-2 /LPF (0-2); RBC Urine 0-2 /HPF (0-2); Squamous Epithelial Cell Urine 0-2 /HPF (0-2); UACC Culture Trigger YES; WBC Urine 0-5 /HPF (0-5)
[2024-03-30] MEDS: Lactated Ringers 1,000 ML 999 ML IV (16:36)
[2024-03-30] MEDS: cephALEXin 500 MG CAPSULE PO ×2 (16:37→20:09)
--- NOTE | 2024-03-30 17:09 | PC.NURSE ---
Patient oob to commode, voided large amount of dark urine, medicated per mar, reports feeling better after taking methadone.
--- NOTE | 2024-03-30 19:34 | MHC.CARE ---
Pt has been accepted to [facility] for tomorrow 03/31/[address] [place] [address] [id number] Mullen. Accepting facility will call for N2N
--- NOTE | 2024-03-30 19:48 | MHC.EDTECH ---
Pt eating dinner, vital signs checked, call lopez within reach.
--- NOTE | 2024-03-30 20:30 | MHC.EDTECH ---
pt requested help to go to the bathroom, pt room is soiled, I called environmental services to come and clean, pt understands and agrees, call lopez within reach.
--- NOTE | 2024-03-30 20:59 | MHC.EDTECH ---
pt asked for mihir lai, I delivered it, pt swearing and cursing at me.
[2024-03-31 02:29] VITALS: BP 125/78; PULSE 68; RESP 16; TEMP 36.2; O2SAT 96
--- NOTE | 2024-03-31 04:13 | PC.NURSE ---
Nurse to nurse to José Luis at [facility]. Dr. Garcia accepting patient and pt is expected at 0930.
[2024-03-31 06:11] VITALS: BP 128/77; PULSE 67; RESP 16; TEMP 36.6; O2SAT 96
[2024-03-31 08:00] VITALS: BP 125/70; PULSE 77; RESP 17; TEMP 36.8; O2SAT 100
[2024-03-31] MEDS: Doxycycline Monohydrate 100 MG CAPSULE PO (08:54)
[2024-03-31] MEDS: cephALEXin 500 MG CAPSULE PO (08:54)
[2024-03-31] MEDS: methADONE HCl 20 MG/2 ML ORAL.CONC 180 MG PO (08:55)
--- NOTE | 2024-03-31 09:02 | PC.NURSE ---
pt medicated per MAR prior to ems transport, last dose letter gand belongings given to EMS .
[2024-03-31 09:06] VITALS: BP 125/70; PULSE 77; RESP 17; TEMP 36.8; O2SAT 100
== END 2024-03-31 09:07 ==
PROVIDERS: Registered Nurse Emergency; Emergency Provider Emergency Medicine
DX: L03.114 Cellulitis of left upper limb (principal); L03.113 Cellulitis of right upper limb; R74.8 Abnormal levels of other serum enzymes; F32.A Depression, unspecified; F19.90 Other psychoactive substance use, unspecified, uncomplicated; Z86.19 Personal history of other infectious and parasitic diseases; Z79.899 Other long term (current) drug therapy
CPT/HCPCS: 36415; 80053; 80307; 81001; 82550; 83605; 83735; 84484; 84702; 85025; 85610; 87040; 87086; 93005; 96361; 96374; 99285; J0696; J7120; S9485

== ENCOUNTER → 2024-03-30 06:28 | Outpatient (BNV) | payer OTHER, SELFPAY | PROVIDERS: Visit Provider Internal Medicine Cardiovascular Disease | DX: R94.31 Abnormal electrocardiogram [ECG] [EKG] (principal) | CPT/HCPCS: 93010 ==

== ENCOUNTER 2024-05-16 19:43 | Inpatient (IN) | payer OTHER, SELFPAY ==
--- NOTE | 2024-05-16 | ECG_ITS ---
Test Reason : FALL Blood Pressure : / mmHG Vent. Rate : 064 BPM Atrial Rate : 064 BPM P-R Int : 176 ms QRS Dur : 092 ms QT Int : 454 ms P-R-T Axes : 059 031 064 degrees QTc Int : 468 ms Normal sinus rhythm Possible Inferior infarct , age undetermined Abnormal ECG When compared with ECG of 30-MAR-2024 06:34, Nonspecific T wave abnormality no longer evident in Inferior leads Nonspecific T wave abnormality no longer evident in Lateral leads Referred By: Generic ED Physician Electronically Signed By:NILE CAO
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
[2024-05-16 20:00] VITALS: BP 121/88; BP 95/68; PULSE 70; PULSE 72; RESP 16; TEMP 36.7; O2SAT 95; O2SAT 96; BMI 32.3
--- NOTE | 2024-05-16 20:36 | PC.NURSE ---
pt biba from the street after unwitnessed fall.pt unsure how she fell, reports cocaine and heroin use this AM. on arrival pt in c collar reporting neck pain and headache. pt reports headstrike, but unsure of LOC. pt reports being on thinners for her heart. pt a&ox4. pt noted to have hematoma/laceration to the right eyebrow. pt noted to have blood on lips. pt eye cleaned with normal saline and clean dry guaze placed. bleeding controlled.
--- NOTE | 2024-05-16 21:43 | ED.FALL ---
HPI - Fall General Chief Complaint: Fall Stated Complaint: AMS FALL WITH HEADSTRIKE Time Seen by Provider: 05/16/24 21:37 Source: patient Mode of arrival: ambulatory Limitations: no limitations History of Present Illness ED Provider: obi PALACIOS Narrative: Patient with polysubstance abuse cocaine fentanyl heroin benzos with increased depression delete she use the drugs and fell down does not know what happened came with abrasion to the right side of the forehead after arrival patient asking to get some help for depression Related Data Home Medications ?Medication ?Instructions ?Recorded ?Confirmed methadone 10 mg/mL oral 170 mg PO DAILY 06/16/22 05/16/24 concentrate (Methadose) propranolol 20 mg tablet 20 mg PO TID 12/26/23 05/17/24 topiramate 100 mg tablet 100 mg PO TID 12/26/23 05/17/24 cariprazine 1.5 mg capsule 1.5 mg PO DAILY 05/16/24 05/16/24 (Vraylar) clonidine HCl 0.1 mg tablet 0.1 mg PO BID PRN Anxiety 05/17/24 05/17/24 diazepam 5 mg tablet 5 mg PO DAILY 05/17/24 05/17/24 gabapentin 600 mg tablet 600 mg PO TID 05/17/24 05/17/24 melatonin 3 mg tablet 6 mg PO BEDTIME 05/17/24 05/17/24 Previous Rx's ?Medication ?Instructions ?Recorded aspirin 81 mg chewable tablet 81 mg PO DAILY 30 days #30 tabs 11/26/23 spironolactone 50 mg tablet 50 mg PO DAILY 30 days #30 tabs 11/26/23 nicotine (polacrilex) 2 mg gum 4 mg buccal Q2H PRN Nicotine 01/19/24 Cravings #0 ea nicotine 21 mg/24 hr daily 21 mg transdermal DAILY #0 ea 01/19/24 transdermal patch Allergies Allergy/AdvReac Type Severity Reaction Status Date / Time quetiapine [From SEROQUEL] Allergy Severe THROAT Verified 05/16/24 20:03 SWELLING azithromycin [AZITHROMYCIN] Allergy Unknown Unknown Verified 05/16/24 20:03 erythromycin base Allergy Unknown RASH Verified 05/16/24 20:03 [ERYTHROMYCIN BASE] olanzapine [From ZYPREXA] Allergy Unknown PEDAL EDEMA Verified 05/16/24 20:03 sulfacetamide Allergy Unknown Unknown Verified 05/16/24 20:03 [From Sulfacet-R] sulfamethoxazole Allergy Unknown ITCHING Verified 05/16/24 20:03 [From BACTRIM] sulfur [From Sulfacet-R] Allergy Unknown Unknown Verified 05/16/24 20:03 trimethoprim [From BACTRIM] Allergy Unknown ITCHING Verified 05/16/24 20:03 chlorpromazine AdvReac Unknown Involuntary Verified 05/16/24 20:03 [From Thorazine] Spasms risperidone [From RISPERDAL] AdvReac Unknown TWITCHING Verified 05/16/24 20:03 seafood AdvReac Unknown Vomiting Verified 05/16/24 20:03 shellfish derived AdvReac Unknown VOMITING Verified 05/16/24 20:03 [SHELLFISH DERIVED] trazodone AdvReac restless Verified 05/16/24 20:03 legs Review of Systems Review of Systems: Yes all other systems are reviewed and are negative PMFSH Past Medical History Medical History Depression Substance abuse Hepatitis C Depression Opioid dependence Leg pain, bilateral Rhabdomyolysis Opioid use disorder, moderate, in sustained remission, dependence Bipolar 1 disorder Substance abuse Substance abuse Back pain Opioid dependence Social History Social History Household Members: None Housing: Homeless Housing Other:: Living with friends at times Do you presently have visiting nurse or other home services: No Unable to assess alcohol history related to: Unable to respond and Unknown Alcohol intake: current Alcohol intake frequency: a few times a month Comment: 1:1 sitter Patient Tobacco Use Status: Current everyday Tobacco user Tobacco use type: Cigarette Cigarette Packs Per Day: 0.5 Cigarettes Per Day: 10 Years Smoked: 29 Smoked in Last 30 Days: Yes e-Cigarette/Vaping Use: Currently Using Second Hand Smoke Exposure: No Use of substances other than those prescribed or required for medical reasons: Yes Substance Use Type: Crack/Cocaine and Heroin Advance Directives: Yes Advance Directives on File: Yes Advance Directives Date on File: 12/28/20 Do you have a plan to hurt others: No Plan Patient : No service: No Current occupational status: unemployed and disabled Sexual orientation: Straight/Heterosexual Physical Exam Vital Signs: Vital Signs: Last Vital Signs Temp 98.9 F 05/17/24 00:01 Pulse 68 05/17/24 00:01 Resp 16 05/17/24 00:01 BP 112/68 05/17/24 00:01 Pulse Ox 97 05/17/24 00:01 O2 Del Method Room Air 05/17/24 00:01 BMI result Body Mass Index 32.3 Appearance: Alert. Oriented X3. No acute distress. Eyes: PERRLA, No Nystagmus ENT: Pharynx normal. Oral Mucosa moist superficial abrasion small laceration about 0.5 cm Neck: Normal inspection. Neck supple. CVS: Normal heart rate and rhythm. Pulses normal. Respiratory: No respiratory distress. Equal air entry bilateral, no wheezing/rales/rhonchi Abdomen: Soft and nontender. Bowel sounds are present, no mass palpable, no CVA tenderness Skin: Skin warm and dry. Normal skin color. Normal skin turgor. Extremities: No lower extremity edema. No calf tenderness IVDA tracks+ Neuro: Oriented X 3. No motor deficit. Medications Administered Discontinued Medications Generic Name Dose Route Start Last Admin Trade Name Freq PRN Reason Stop Dose Admin Acetaminophen 975 mg 05/17/24 00:52 05/17/24 01:05 Acetaminophen 325 Mg Tablet PO 05/17/24 00:53 975 mg ONCE ONE Administration Procedures Laceration Laceration 1: Site: face Side (If applicable): right Size (cm): 0.5 Description: linear Depth: simple, single layer Skin layer closed with: other (Skin glue) Medical Decision Making Medical Decision Making [facility] Narrative: Patient's polysubstance abuse with depression denies any SI at this time but would like to get some help for significant depression will get care team evaluation patient does have WBCs and bacteria will treat her with Ceftin Lab Data [facility] Lab Attestation statement: I reviewed the patient's lab results. 05/16/24 20:38 05/16/24 20:38 Labs: Lab Results 05/16/24 Range/Units 23:57 Urine Color Dark Yellow Urine Appearance Turbid Urine pH 5.5 (5.0-9.0) Ur Specific [place] 1.015 (1.005-1.025) Urine Protein Trace (Neg-Trace) mg/dL Urine Glucose (UA) Negative (Negative) mg/dL Urine Ketones Trace (Negative) mg/dL Urine Blood Small (1+) H (Negative) Urine Nitrite Negative (Negative) Ur Leukocyte Esterase Large (3+) H (Negative) Urine RBC 6-10 H (0-2) /HPF Urine WBC >50 H (0-5) /HPF Ur Squamous Epith Cells 6-10 (0-2) /HPF Urine Bacteria 4+ (None Seen) Hyaline Casts >20 (0-2) /LPF Urine Opiates Screen Not Detected (Not Detect) Ur Buprenorphine Scrn Not Detected (Not Detect) ng/mL Ur Oxycodone Screen Not Detected (Not Detect) ng/mL Urine Methadone Screen Positive H (Not Detect) ng/mL Urine Fentanyl Screen POSITIVE H (Not Detect) Ur Barbiturates Screen Not Detected (Not Detect) Ur Phencyclidine Scrn Not Detected (Not Detect) Ur Amphetamines Screen Not Detected (Not Detect) U Benzodiazepines Scrn POSITIVE H (Not Detect) Urine Cocaine Screen POSITIVE H (Not Detect) U Marijuana (THC) Screen Not Detected (Not Detect) Discharge Plan Discharge Clinical Impression: Polysubstance abuse, Major depress dis, severe, UTI (urinary tract infection) Patient Disposition: Still a Patient Prescriptions: No Action methadone [Methadose] 10 mg/mL concentrate 170 mg PO DAILY Rx Instructions: Last dose letter from [facility]. 170 mg at 0900 on 05/16/2024 spironolactone 50 mg tablet 50 mg PO DAILY 30 Days Qty: 30 0RF aspirin 81 mg Tablet,Chewable 81 mg PO DAILY 30 Days Qty: 30 0RF propranolol 20 mg tablet 20 mg PO TID topiramate 100 mg tablet 100 mg PO TID nicotine (polacrilex) 2 mg Gum 4 mg buccal Q2H PRN (Reason: Nicotine Cravings) Qty: 0 0RF nicotine 21 mg/24 hr Patch 24 Hour 21 mg transdermal DAILY Qty: 0 0RF Vraylar 1.5 mg capsule 1.5 mg PO DAILY gabapentin 600 mg tablet 600 mg PO TID melatonin 3 mg Tablet 6 mg PO BEDTIME diazepam 5 mg Tablet 5 mg PO DAILY clonidine HCl 0.1 mg Tablet 0.1 mg PO BID PRN (Reason: Anxiety) Print Language: Estonian
--- NOTE | 2024-05-16 23:06 | PC.NURSE ---
upon discharge of pt, pt reports she wants to speak with care team. pt reports she has been having increasing depression and reports she just wants to and not live anymore . pt reports she has attempted si by overdosing on drugs. at bedside applying glue to pt right eyebrow. security called to bedside for warp changer, pt belongings placed in decon due to the finding of needles in bag. care team at bedside at this time.
[2024-05-17] VITALS (9 sets, daily range): BP systolic 100–119; BP diastolic 50–68; PULSE 57–76; RESP 14–18; TEMP 36.8–37.2; O2SAT 95–99; BMI 41.6
[2024-05-17 00:09] LABS: Appearance Urine Turbid; Color Urine Dark Yellow; Glucose Urine UA Negative (Negative); Leukocyte Esterase Urine Large (3+) (Negative); Nitrite Urine Negative (Negative); PH 5.5 (5.0-9.0); Specific Gravity - Urine 1.015 (1.005-1.025); UMIC TRIGGER UA YES; Urine Blood Small (1+) (Negative); Urine Ketones Trace mg/dL (Negative); Urine Protein Trace mg/dL (Neg-Trace)
[2024-05-17 00:23] LABS: Bacteria Urine 4+ (None Seen); Hyaline Casts Urine >20 /LPF (0-2); WBC Urine >50 /HPF (0-5)
[2024-05-17 00:24] LABS: Amphetamine Screen Urine Not Detected (Not Detect); Barbiturates, Urine Not Detected (Not Detect); Benzodiazepines Screen Urine POSITIVE (Not Detect); Buprenorphine Scr Not Detected (Not Detect); Cannabinoid Screen Urine Not Detected (Not Detect); Cocaine Screen Urine POSITIVE (Not Detect); Fentanyl, urine POSITIVE (Not Detect); Methadone Screen, Urine Positive (Not Detect); Opiate Screen Urine Not Detected (Not Detect); Oxycodone Screen Urine Not Detected (Not Detect); Phencyclidine Screen Urine Not Detected (Not Detect)
[2024-05-17] MEDS: Acetaminophen 325 MG TABLET 975 MG PO (01:05)
--- NOTE | 2024-05-17 06:24 | PC.NURSE ---
Patient slept through the night, no distress observed/reported, meds rec completed/approved/MAR active including her methadone dose, disposition per care team is sec-12 inpatient bed search, no behavior and safety concerns, blood draw pending was attempted twice, hemolyzed first attempt and unsuccessful attempt the next, VSS, will continue to monitor
--- NOTE | 2024-05-17 06:53 | HE.PHANOTE ---
RE METHADONE pharmacy has received last dose form from Erika Murcia, last dose was 170 mg on 05/16/24 @0900.
--- NOTE | 2024-05-17 07:16 | PC.NURSE ---
Assumed care of patient at 0645, patient appears to be in no apparent distress this am, sleeping, respirations even and unlabored. Continue plan of care for inpatient bedsearch
[2024-05-17] MEDS: Spironolactone 25 MG TABLET 50 MG PO (08:42)
[2024-05-17] MEDS: methADONE HCl 20 MG/2 ML ORAL.CONC 170 MG PO (08:42)
[2024-05-17] MEDS: Aspirin 81 MG TAB.CHEW PO (08:42)
[2024-05-17] MEDS: Topiramate 100 MG TABLET PO ×3 (08:42→20:52)
[2024-05-17] MEDS: diazePAM 5 MG TABLET PO (08:42)
[2024-05-17] MEDS: cefuroxime axetiL 250 MG TABLET PO ×2 (08:43→20:52)
[2024-05-17] MEDS: Nicotine 21 MG PATCH.TD24 TRANSDERMA (08:43)
[2024-05-17] MEDS: Gabapentin 600 MG TABLET PO ×3 (08:43→20:52)
[2024-05-17] MEDS: Propranolol HCL 20 MG TABLET PO ×2 (08:45→20:52)
[2024-05-17] MEDS: Cariprazine HCl 1.5 MG CAPSULE PO (08:45)
--- NOTE | 2024-05-17 09:13 | PC.NURSE ---
Lucien, MHT attempted to draw patient without success, this RN attempted to find location for blood draw, also without success. per night MHT, patient lab draw was attempted twice. This RN called phlebotomy for assistance
[2024-05-17 11:46] LABS: Basophils Percent Auto 0.6 % (0-2); Eosinophils Absolute Auto 0.1 X10*3/uL (0.0-0.4); Eosinophils Percent Auto 2.2 % (0-4); Hematocrit 35.1 % (37.0-47.0); Hemoglobin 11.7 g/dl (12.0-16.0); Imm Gran Abs Auto 0.01 X10*3/uL (0.00-0.03); Imm Gran Pct Auto 0.3 % (0.0-0.4); Lymphocytes Absolute Auto 1.3 X10*3/uL (1.2-4.9); Lymphocytes Percent Auto 40.8 % (20-40); Mean Corpuscular HGB Conc 33.3 g/dl (31.0-35.0); Mean Corpuscular Hemoglobin 30.5 pg (27.0-33.0); Mean Corpuscular Volume 91.4 fL (80.0-98.0); Monocytes Absolute Auto 0.3 X10*3/uL (0.1-1.2); Monocytes Percent Auto 10.4 % (2-11); Neutrophils Absolute Auto 1.4 x10*3/uL (2.0-8.3); Neutrophils Percent Auto 45.7 % (45-73); Platelet Count 89 X10*3/uL (160-400); Red Blood Count 3.84 X10*6/uL (4.20-5.50); White Blood Count 3.2 X10*3/uL (4.8-10.8)
[2024-05-17 12:09] LABS: Alanine Aminotransferase 26 U/L (0-31); Albumin Level 3.6 g/dL (3.5-5.0); Alkaline Phosphatase 86 U/L (39-117); Anion Gap 11 (12-20); Aspartate Amino Transferase 53 U/L (5-31); Bilirubin Total 0.9 mg/dL (0.0-1.0); Blood Urea Nitrogen 15 mg/dL (9-16); Calcium 9.4 mg/dL (8.4-10.2); Carbon Dioxide 25 mmol/L (22-29); Chloride 108 mmol/L (96-108); Creatinine Clr Calc Pharmacy 97.2; Estimated Glomerular Filt Rate > 60; Ethanol < 10 mg/dL; Glucose Random 113 mg/dL (60-115); Sodium 140 mmol/L (135-145)
[2024-05-17] MEDS: cloNIDine HCL 0.1 MG TABLET PO (15:55)
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
[2024-05-17] MEDS: hydrOXYzine HCL 25 MG TABLET PO (18:23)
--- NOTE | 2024-05-17 18:27 | PC.NURSE ---
Pt refused to participate in admission and declined to sign.
[2024-05-17] MEDS: Melatonin 3 MG TABLET 6 MG PO (20:51)
[2024-05-17] MEDS: Nicotine Polacrilex 2 MG GUM 4 MG BUCCAL (21:13)
[2024-05-18] MEDS: methADONE HCl 20 MG/2 ML ORAL.CONC 170 MG PO (08:23)
[2024-05-18 08:29] VITALS: BP 132/80; PULSE 64; RESP 17; TEMP 36.1; O2SAT 98
[2024-05-18] MEDS: Nicotine 21 MG PATCH.TD24 TRANSDERMA (08:34)
[2024-05-18] MEDS: cefuroxime axetiL 250 MG TABLET PO ×2 (08:35→20:17)
[2024-05-18] MEDS: cloNIDine HCL 0.1 MG TABLET PO ×4 (08:35→22:21)
[2024-05-18] MEDS: Aspirin 81 MG TAB.CHEW PO (08:35)
[2024-05-18] MEDS: Spironolactone 25 MG TABLET 50 MG PO (08:35)
[2024-05-18] MEDS: Propranolol HCL 20 MG TABLET PO ×3 (08:36→20:17)
[2024-05-18] MEDS: diazePAM 5 MG TABLET PO (08:36)
[2024-05-18] MEDS: Gabapentin 600 MG TABLET PO ×3 (08:36→20:16)
[2024-05-18] MEDS: Topiramate 100 MG TABLET PO ×3 (08:37→20:17)
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
[2024-05-18] MEDS: Nicotine Polacrilex 2 MG GUM 4 MG BUCCAL ×5 (10:25→22:20)
[2024-05-18] MEDS: hydrOXYzine HCL 25 MG TABLET PO ×2 (12:03→20:17)
[2024-05-18] MEDS: guaiFENesin LA 600 MG TAB.ER.12H 1200 MG PO (12:08)
[2024-05-18 14:19] VITALS: BP 137/62; PULSE 63
[2024-05-18 17:46] VITALS: BP 168/69; PULSE 65
--- NOTE | 2024-05-18 18:15 | PC.NURSE ---
Pt reported elevated anxiety and not feeling well, RN assessed BP 168/69 HR 65, T 97.7. Pt requested and received PRN Clonidine. Dr. Damián weinberg.
[2024-05-18 20:00] VITALS: BP 122/69; PULSE 67; RESP 16; TEMP 36.4; O2SAT 98
[2024-05-18] MEDS: Melatonin 3 MG TABLET 6 MG PO (20:17)
[2024-05-18] MEDS: traZODone HCL 50 MG TABLET PO (20:17)
[2024-05-18] MEDS: Acetaminophen 325 MG TABLET 650 MG PO (20:29)
[2024-05-18 22:21] VITALS: BP 99/60
[2024-05-19] MEDS: Nicotine Polacrilex 2 MG GUM 4 MG BUCCAL ×2 (01:33→03:32)
[2024-05-19 07:00] VITALS: BMI 41.9
[2024-05-19 08:00] VITALS: BP 120/66; PULSE 57; RESP 14; TEMP 36.4; O2SAT 100
[2024-05-19] MEDS: methADONE HCl 20 MG/2 ML ORAL.CONC 170 MG PO (08:12)
[2024-05-19] MEDS: Cariprazine HCl 1.5 MG CAPSULE PO (08:48)
[2024-05-19] MEDS: Topiramate 100 MG TABLET PO (08:48)
[2024-05-19] MEDS: Propranolol HCL 20 MG TABLET PO (08:48)
[2024-05-19] MEDS: Gabapentin 600 MG TABLET PO (08:49)
[2024-05-19] MEDS: cefuroxime axetiL 250 MG TABLET PO (08:49)
[2024-05-19] MEDS: Aspirin 81 MG TAB.CHEW PO (08:50)
[2024-05-19] MEDS: Spironolactone 25 MG TABLET 50 MG PO (08:50)
[2024-05-19] MEDS: Nicotine 21 MG PATCH.TD24 TRANSDERMA (08:51)
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
--- NOTE | 2024-05-19 12:12 | P.PNPSI_ITS ---
Subjective Subjective Date of Service: 05/19/24 Reason For Visit: SI Interim History: Briefly Met with patient; discussed with team Patient lying in bed asleep. Awoke on approach, said she was fine and had no complaints or requests. Mental Status Exam Mental Status Exam Narrative: Drowsy but arousable, oriented; behavior is cooperative and calm; dressed in hospital [facility]; mood is fine; affect congruent eye contact appropriate; Speech is normal rate, volume and prosody and not pressured; thought process goal directed; Thought content is on tx; no SI/SIBI/HI/AVH expressed. Diagnostics Vital Signs (24Hr): Vital Signs - 24 hr 05/18/24 14:19 05/18/24 17:46 05/18/24 20:00 Temperature 97.6 F Pulse Rate 63 65 67 Respiratory Rate 16 Blood Pressure 137/62 168/69 H 122/69 Pulse Oximetry 98 Oxygen Delivery Method Room Air 05/18/24 22:21 05/19/24 08:00 Temperature 97.6 F Pulse Rate 57 Respiratory Rate 14 Blood Pressure 99/60 120/66 Pulse Oximetry 100 Oxygen Delivery Method Room Air BMI result Body Mass Index 41.6 Labs 05/17/24 11:39 05/17/24 11:39 Imaging Radiology Impressions: ITS Impressions Cervical Spine CT 05/16/24 20:44 IMPRESSION: 1. No evidence of acute intracranial hemorrhage or edematous territorial infarction. Mild underlying microangiopathy. 2. No evidence of acute fracture or traumatic subluxation of the cervical spine. 3. Right frontal scalp hematoma. No associated osseous abnormalities. Electronically signed by: Bradford Retana DO 05/16/2024 09:37 PM EDT RP Head CT 05/16/24 21:02 IMPRESSION: 1. No evidence of acute intracranial hemorrhage or edematous territorial infarction. Mild underlying microangiopathy. 2. No evidence of acute fracture or traumatic subluxation of the cervical spine. 3. Right frontal scalp hematoma. No associated osseous abnormalities. Electronically signed by: Bradford Retana DO 05/16/2024 09:37 PM EDT RP Medications Medications Current Medications Acetaminophen (Acetaminophen 325 Mg Tablet) 650 mg PO Q6H PRN PRN Reason: Headache/Pain Mild Scale (1-3) Last Admin: 05/18/24 20:29 Dose: 650 mg Al Hydroxide/Mg Hydroxide (Magnesium Hydrox/Alum Hydrox 30 Ml Oral.Susp) 30 ml PO Q6H PRN PRN Reason: Heartburn/Nausea Aspirin (Aspirin 81 Mg Tab.Chew) 81 mg PO DAILY [facility] Last Admin: 05/19/24 08:50 Dose: 81 mg Cariprazine (Cariprazine Hcl 1.5 Mg Capsule) 1.5 mg PO DAILY [facility] Last Admin: 05/19/24 08:48 Dose: 1.5 mg Cefuroxime Axetil (Cefuroxime Axetil 250 Mg Tablet) 250 mg PO BID [facility] Stop: 05/22/24 08:59 Last Admin: 05/19/24 08:49 Dose: 250 mg Clonidine HCl (Clonidine Hcl 0.1 Mg Tablet) 0.1 mg PO Q4H PRN; Protocol PRN Reason: Anxiety Last Admin: 05/18/24 22:21 Dose: 0.1 mg Gabapentin (Gabapentin 600 Mg Tablet) 600 mg PO TID [facility] Last Admin: 05/19/24 08:49 Dose: 600 mg Guaifenesin (Guaifenesin [place] 600 Mg Tab.Er.12h) 1,200 mg PO BID PRN PRN Reason: congestion Last Admin: 05/18/24 12:08 Dose: 1,200 mg Hydroxyzine HCl (Hydroxyzine Hcl 25 Mg Tablet) 25 mg PO Q6H PRN PRN Reason: Anxiety Last Admin: 05/18/24 20:17 Dose: 25 mg Magnesium Hydroxide (Milk Of Magnesia 30 Ml Oral.Susp) 30 ml PO DAILY PRN PRN Reason: Constipation Melatonin (Melatonin 3 Mg Tablet) 6 mg PO BEDTIME [facility] Last Admin: 05/18/24 20:17 Dose: 6 mg Methadone HCl (Methadone Hcl 20 Mg/2 Ml Oral.Conc) 170 mg PO DAILY [facility] Last Admin: 05/19/24 08:12 Dose: 170 mg Nicotine (Nicotine 21 Mg Patch.Td24) 21 mg TRANSDERMA DAILY [facility] Last Admin: 05/19/24 08:51 Dose: 21 mg Nicotine Polacrilex (Nicotine Polacrilex 2 Mg Gum) 4 mg BUCCAL Q2H PRN PRN Reason: Nicotine Cravings Last Admin: 05/19/24 03:32 Dose: 4 mg Propranolol HCl (Propranolol Hcl 20 Mg Tablet) 20 mg PO TID [facility]; Protocol Last Admin: 05/19/24 08:48 Dose: 20 mg Spironolactone (Spironolactone 25 Mg Tablet) 50 mg PO DAILY [facility]; Protocol Last Admin: 05/19/24 08:50 Dose: 50 mg Topiramate (Topiramate 100 Mg Tablet) 100 mg PO TID [facility] Last Admin: 05/19/24 08:48 Dose: 100 mg Allergies Allergies Allergy/AdvReac Type Severity Reaction Status Date / Time quetiapine [From SEROQUEL] Allergy Severe THROAT Verified 05/16/24 20:03 SWELLING azithromycin [AZITHROMYCIN] Allergy Unknown Unknown Verified 05/16/24 20:03 erythromycin base Allergy Unknown RASH Verified 05/16/24 20:03 [ERYTHROMYCIN BASE] olanzapine [From ZYPREXA] Allergy Unknown PEDAL EDEMA Verified 05/16/24 20:03 sulfacetamide Allergy Unknown Unknown Verified 05/16/24 20:03 [From Sulfacet-R] sulfamethoxazole Allergy Unknown ITCHING Verified 05/16/24 20:03 [From BACTRIM] sulfur [From Sulfacet-R] Allergy Unknown Unknown Verified 05/16/24 20:03 trimethoprim [From BACTRIM] Allergy Unknown ITCHING Verified 05/16/24 20:03 chlorpromazine AdvReac Unknown Involuntary Verified 05/16/24 20:03 [From Thorazine] Spasms risperidone [From RISPERDAL] AdvReac Unknown TWITCHING Verified 05/16/24 20:03 seafood AdvReac Unknown Vomiting Verified 05/16/24 20:03 shellfish derived AdvReac Unknown VOMITING Verified 05/16/24 20:03 [SHELLFISH DERIVED] trazodone AdvReac restless Verified 05/16/24 20:03 legs Assessment & Plan Assessment & Plan (1) Polysubstance abuse: Status: Acute Code(s): F19.10 - Other psychoactive substance abuse, uncomplicated (2) Depression: Status: Acute Code(s): F32.A - Depression, unspecified Plan DC valium. otherwise continue outpt meds. dispo planning. 05/19 continue treatment plan Patient educated on: diagnosis Informed Consent: understands Reason for continued inpatient stay Substantial Risk for: med/psych decompensation Time Spent With Patient Time: Total time managing care of this patient today ____ minutes.
== END 2024-05-19 14:25 | disposition other institution (70) | DRG 754 ==
LOC: HO.ED 05-17 07:29 → HO.PADLT16 05-17 15:02
PROVIDERS: Internal Medicine; Admitting Provider Psychiatry & Neurology Psychiatry; Emergency Provider Emergency Medicine Emergency Medical Services; Visit Provider Psychiatry & Neurology Psychiatry
DX: F32.A Depression, unspecified (principal); R45.851 Suicidal ideations; F11.20 Opioid dependence, uncomplicated; S01.81XA Laceration without foreign body of other part of head, initial encounter; W19.XXXA Unspecified fall, initial encounter; F17.210 Nicotine dependence, cigarettes, uncomplicated; F19.10 Other psychoactive substance abuse, uncomplicated; Z71.6 Tobacco abuse counseling; Z79.82 Long term (current) use of aspirin; Z79.899 Other long term (current) drug therapy
CPT/HCPCS: 36415; 70450; 72125; 80053; 80307; 81001; 85025; 93005; 99285; S9485

== ENCOUNTER → 2024-05-17 14:59 | Outpatient (BNV) | payer OTHER, SELFPAY | PROVIDERS: Admitting Provider Psychiatry & Neurology Psychiatry; Emergency Provider Emergency Medicine Emergency Medical Services; Visit Provider Psychiatry & Neurology Psychiatry | DX: F32.2 Major depressive disorder, single episode, severe without psychotic features (principal); F19.10 Other psychoactive substance abuse, uncomplicated | CPT/HCPCS: 99232; 99233; 99239; 99499 ==

== ENCOUNTER 2024-07-12 22:13 | Emergency (ER) | payer OTHER, SELFPAY ==
--- NOTE | 2024-07-12 | ECG_ITS ---
Test Reason : OD Blood Pressure : / mmHG Vent. Rate : 076 BPM Atrial Rate : 076 BPM P-R Int : 174 ms QRS Dur : 086 ms QT Int : 448 ms P-R-T Axes : 066 012 040 degrees QTc Int : 504 ms Normal sinus rhythm Inferior infarct (cited on or before 16-MAY-2024) Prolonged QT Abnormal ECG When compared with ECG of 16-MAY-2024 22:35, No significant change was found Referred By: Generic ED Physician Electronically Signed By:Amadeo Gutierrez
[2024-07-12 22:21] VITALS: BMI 37.1
[2024-07-12 22:42] VITALS: BP 113/60; PULSE 64; RESP 12; TEMP 36.7; O2SAT 96
--- NOTE | 2024-07-12 22:45 | PC.NURSE ---
poison control called recommendation to repeat ekg x 2 hours until normal, if qrs prolonged give bicarb, if qtc prolonged give mag, monitor overnight for hypotension, bradycardia, urinary retention and seizures. labs as ordered. provider made aware.
--- NOTE | 2024-07-12 22:51 | ED.OVERDOSE ---
HPI - Overdose General Chief Complaint: Overdose Stated Complaint: relapse,SI, od attempt Time Seen by Provider: 07/12/24 22:51 Source: other (ED nurse) History of Present Illness ED Provider: Dr. Sukhdev Palacios HPI Narrative: 43-year-old female history of hepatitis-C, depression, opioid dependence, substance use disorder bilateral leg pain, rhabdomyolysis, bipolar 1, chronic back pain brought in by ambulance for evaluation for evaluation of overdose. The patient presented to the police station and reported that she had overdosed on medications. The patient is somnolent and can not give me a history so the following information was obtained from the ED nursing triage note. Patient attempted to kill herself by taking multiple doses of her home medications. Patient states that she took gabapentin over the past 6 hours and 45 tablets were missing from her bottle . She also reported taking 50 tablets of melatonin, 30 tablets of clonidine and 30 tablets of hydroxyzine throughout the day with the last dose being at around 17:00 hours. She also told the ED nurse that she took 6 to Valium yesterday. Patient also reports using $1600 worth of illicit drugs. Related Data Home Medications ?Medication ?Instructions ?Recorded ?Confirmed methadone 10 mg/mL oral 170 mg PO DAILY 06/16/22 05/16/24 concentrate (Methadose) propranolol 20 mg tablet 20 mg PO TID 12/26/23 05/17/24 topiramate 100 mg tablet 100 mg PO TID 12/26/23 05/17/24 cariprazine 1.5 mg capsule 1.5 mg PO DAILY 05/16/24 05/16/24 (Vraylar) gabapentin 600 mg tablet 600 mg PO TID 05/17/24 05/17/24 melatonin 3 mg tablet 6 mg PO BEDTIME 05/17/24 05/17/24 Previous Rx's ?Medication ?Instructions ?Recorded aspirin 81 mg chewable tablet 81 mg PO DAILY 30 days #30 tabs 11/26/23 spironolactone 50 mg tablet 50 mg PO DAILY 30 days #30 tabs 11/26/23 nicotine (polacrilex) 2 mg gum 4 mg buccal Q2H PRN Nicotine 01/19/24 Cravings #0 ea nicotine 21 mg/24 hr daily 21 mg transdermal DAILY #0 ea 01/19/24 transdermal patch cefuroxime axetil 250 mg tablet 250 mg PO BID #0 tabs 05/19/24 clonidine HCl 0.1 mg tablet 0.1 mg PO Q4H PRN Anxiety #0 tabs 05/19/24 guaifenesin 600 mg tablet, 1,200 mg (2 x 600 mg) PO BID PRN 05/19/24 extended release 12 hr (Mucinex) congestion #0 tabs hydroxyzine HCl 25 mg tablet 25 mg PO Q6H PRN Anxiety #0 tabs 05/19/24 Allergies Allergy/AdvReac Type Severity Reaction Status Date / Time quetiapine [From SEROQUEL] Allergy Severe THROAT Verified 07/12/24 22:25 SWELLING azithromycin [AZITHROMYCIN] Allergy Unknown Unknown Verified 07/12/24 22:25 erythromycin base Allergy Unknown RASH Verified 07/12/24 22:25 [ERYTHROMYCIN BASE] olanzapine [From ZYPREXA] Allergy Unknown PEDAL EDEMA Verified 07/12/24 22:25 sulfacetamide Allergy Unknown Unknown Verified 07/12/24 22:25 [From Sulfacet-R] sulfamethoxazole Allergy Unknown ITCHING Verified 07/12/24 22:25 [From BACTRIM] sulfur [From Sulfacet-R] Allergy Unknown Unknown Verified 07/12/24 22:25 trimethoprim [From BACTRIM] Allergy Unknown ITCHING Verified 07/12/24 22:25 chlorpromazine AdvReac Unknown Involuntary Verified 07/12/24 22:25 [From Thorazine] Spasms risperidone [From RISPERDAL] AdvReac Unknown TWITCHING Verified 07/12/24 22:25 seafood AdvReac Unknown Vomiting Verified 07/12/24 22:25 shellfish derived AdvReac Unknown VOMITING Verified 07/12/24 22:25 [SHELLFISH DERIVED] trazodone AdvReac restless Verified 07/12/24 22:25 legs Review of Systems Review of Systems: Yes all other systems are reviewed and are negative PMFSH Past Medical History Medical History Depression Substance abuse Hepatitis C Depression Opioid dependence Leg pain, bilateral Rhabdomyolysis Opioid use disorder, moderate, in sustained remission, dependence Bipolar 1 disorder Substance abuse Substance abuse Back pain Opioid dependence Social History Social History Household Members: None Housing: Homeless Housing Other:: Living with friends at times Do you presently have visiting nurse or other home services: No Unable to assess alcohol history related to: Unable to respond and Unknown Alcohol intake: unknown Comment: 1:1 sitter Patient Tobacco Use Status: Current everyday Tobacco user Tobacco use type: Cigarette Cigarette Packs Per Day: 0.5 Cigarettes Per Day: 10.0 Years Smoked: 29 Smoked in Last 30 Days: No e-Cigarette/Vaping Use: Never Used Second Hand Smoke Exposure: No Use of substances other than those prescribed or required for medical reasons: Yes Substance Use Type: Crack/Cocaine, Heroin, IV Drugs, Opiates, Other, Painkillers and Prescription Drugs Advance Directives: Yes Advance Directives on File: Yes Advance Directives Date on File: 12/28/20 Do you have a plan to hurt others: No Plan service: No Current occupational status: unemployed and disabled Sexual orientation: Straight/Heterosexual Physical Exam Vital Signs: Vital Signs: Last Vital Signs Temp 98.1 F 07/12/24 22:42 Pulse 71 07/13/24 02:11 Resp 13 07/13/24 02:11 BP 102/60 07/13/24 02:11 Pulse Ox 93 07/13/24 02:11 O2 Del Method Room Air 07/13/24 02:11 BMI result Body Mass Index 37.1 Vital signs were normal Exam: General: Patient is somnolent, minimally arousable, she was unable to answer questions Head: Normocephalic, atraumatic EENT: Pupils are symmetric, 5 mm and reactive, Lids normal, sclera normal, conjunctiva normal, nose normal , ears normal, throat without erythema or exudates Neck: Supple, no adenopathy Lung: breath sounds symmetric, no wheezing, rales or rhonchi Chest: symmetric movement, nontender Heart: regular rate and rhythm, normal S1, S2 no murmurs or rubs Abdomen: soft, non-tender, nondistended, normal bowel sounds Back: no vertebral tenderness, no CVAT Extremities: Swollen secondary to injection drug use Neuro: Somnolent, minimally arousable Medications Administered Discontinued Medications Generic Name Dose Route Start Last Admin Trade Name Freq PRN Reason Stop Dose Admin Magnesium Sulfate 2 gm in 50 mls @ 25 mls/hr 07/12/24 22:58 07/13/24 01:21 Magnesium Sulfate/H2o IV 07/13/24 00:57 Infused ONCE ONE Infusion Sodium Chloride 1,000 mls @ 999 mls/hr 07/13/24 01:27 07/13/24 01:21 Ns IV 07/13/24 02:27 Infused .Q1H1M STA Infusion Medical Decision Making Medical Decision Making [facility] Narrative: 43-year-old female history of hepatitis-C, depression, opioid dependence, substance use disorder bilateral leg pain, rhabdomyolysis, bipolar 1, chronic back pain brought in by ambulance for evaluation for evaluation of overdose of multiple medications including gabapentin, melatonin, clonidine and hydroxyzine over the last 6 hours. She also admits to using illicit drugs over the last 24 hours. Vital signs were normal physical examination revealed that she was lethargic and somnolent consistent with overdose. Differential diagnosis: ?Includes but is not limited to prescription drug overdose, illicit drug overdose, electrolyte abnormalities, anemia, arrhythmias Course: 23:08 hours, start physician observation The patient was presentation was discussed with poison control and they recommended 12 close monitoring, there she will be placed on a cardia, O2 saturation and tidal CO2 monitor. Poison control recommended following the patient's QTC interval and if that is prolonged given magnesium and QRS interval and if it is prolonged giving bicarb. They also recommended keeping her magnesium above 2 and her potassium above 4. Patient's initial 12 EKG done at 22:46 hours revealed a normal QRS duration of 86 milliseconds for a prolonged QTC of 504 milliseconds therefore I ordered magnesium 2 g IV. 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 The end of my shift the patient's care was turned over to my colleague, Dr. Onur Patricia. Admission/Observation Consideration of admission/observation: Escalation of care including admission/observation considered (Yes) Lab Data [facility] Lab Attestation statement: I reviewed the patient's lab results. My interpretation patient's laboratory evaluation is as follows: Normocytic anemia with an H&H of 11.2 and 32.1-chronic. AST, and ALT were elevated at 588 and 103. Total bilirubin is elevated 1.3. Repeat 4 hour LFTs were unchanged with an AST of 531 and an ALT of 92. Bilirubin improved to 1.0. Patient's initial acetaminophen and salicylates were below detectable limits and repeat 4 hour studies are pending. Patient's ethanol level was below detectable limits. PTT and INR were elevated 15.4 and 1.3. 07/12/24 23:07 07/13/24 02:00 Labs: Lab Results 07/12/24 07/13/24 Range/Units 23:07 02:00 WBC 4.8 (4.8-10.8) X10*3/uL RBC 3.71 L (4.20-5.50) X10*6/uL Hgb 11.2 L (12.0-16.0) g/dl Hct 32.1 L (37.0-47.0) % MCV 86.5 (80.0-98.0) fL MCH 30.2 (27.0-33.0) pg MCHC 34.9 (31.0-35.0) g/dl RDW 12.0 (11.0-16.0) % Plt Count 86 L (160-400) X10*3/uL MPV 9.6 (9.4-12.3) fL Immature Gran % (Auto) 0.4 (0.0-0.4) % Neut % (Auto) 54.6 (45-73) % Lymph % (Auto) 37.1 (20-40) % [place] % (Auto) 6.0 (2-11) % Eos % (Auto) 1.7 (0-4) % Baso % (Auto) 0.2 (0-2) % Lymph # (Auto) 1.8 (1.2-4.9) X10*3/uL [place] # (Auto) 0.3 (0.1-1.2) X10*3/uL Eos # (Auto) 0.1 (0.0-0.4) X10*3/uL Baso # (Auto) 0.0 (0.0-0.2) X10*3/uL Abs Immat Gran (auto) 0.02 (0.00-0.03) X10*3/uL Absolute Neuts (auto) 2.6 (2.0-8.3) x10*3/uL Absolute Nucleated RBC 0.000 (0.0-0.012) X10*3/uL Nucleated RBC % (auto) 0.0 (0.0-0.2) /100WBC PT 15.4 H (10.9-12.4) SEC INR 1.3 H (0.9-1.1) Sodium 135 139 (135-145) mmol/L Potassium 4.3 4.1 (3.3-5.1) mmol/L Chloride 102 106 (96-108) mmol/L Carbon Dioxide 24 24 (22-29) mmol/L Anion Gap 13 13 (12-20) BUN 15 13 (9-16) mg/dL Creatinine 0.86 0.74 (0.5-1.4) mg/dL Estim Creat Clear Calc 99.7 115.9 Estimated GFR > 60 > 60 Random Glucose 101 89 (60-115) mg/dL Calcium 9.6 9.0 D (8.4-10.2) mg/dL Magnesium 1.8 2.3 (1.6-2.6) mg/dL Total Bilirubin 1.3 H 1.0 (0.0-1.0) mg/dL AST 588 H 531 H (5-31) U/L ALT 103 H 92 H (0-31) U/L Alkaline Phosphatase 59 56 (39-117) U/L Troponin I High Sens < 2.7 (<3.5-17.0) ng/L Total Protein 7.0 6.4 L (6.5-8.0) g/dL Albumin 3.9 3.6 (3.5-5.0) g/dL Salicylates < 5.0 L (15-30) mg/dL Acetaminophen < 3 (<30) mcg/mL Ethyl Alcohol < 10 mg/dL Independent Interpretation I performed an independent interpretation of an: EKG Interpretation: EKG 1. 22:42 hours: Sinus rhythm with a rate of 76, normal OH interval, QRS duration prolonged QTC interval 504 milliseconds, no ST segment elevation, no ST segment depression, inverted T-wave in lead V1 and V2. Chronic Conditions Patient?s care impacted by: Other (Opiate use disorder, bipolar disorder, cocaine use disorder) Discharge Plan Discharge Clinical Impression: Overdose, Altered mental status Patient Disposition: Still a Patient Prescriptions: No Action methadone [Methadose] 10 mg/mL concentrate 170 mg PO DAILY Rx Instructions: Last dose letter from [place]. 170 mg at 0900 on 05/16/2024 spironolactone 50 mg tablet 50 mg PO DAILY 30 Days Qty: 30 0RF aspirin 81 mg Tablet,Chewable 81 mg PO DAILY 30 Days Qty: 30 0RF propranolol 20 mg tablet 20 mg PO TID topiramate 100 mg tablet 100 mg PO TID nicotine (polacrilex) 2 mg Gum 4 mg buccal Q2H PRN (Reason: Nicotine Cravings) Qty: 0 0RF nicotine 21 mg/24 hr Patch 24 Hour 21 mg transdermal DAILY Qty: 0 0RF Vraylar 1.5 mg capsule 1.5 mg PO DAILY gabapentin 600 mg tablet 600 mg PO TID melatonin 3 mg Tablet 6 mg PO BEDTIME clonidine HCl 0.1 mg Tablet 0.1 mg PO Q4H PRN (Reason: Anxiety) Qty: 0 0RF Protocol: Hold for SBP< HOLD for SBP < : 90 cefuroxime axetil 250 mg Tablet 250 mg PO BID Qty: 0 0RF hydroxyzine HCl 25 mg Tablet 25 mg PO Q6H PRN (Reason: Anxiety) Qty: 0 0RF guaifenesin [Mucinex] 600 mg Tablet Extended Release 12hr 1,200 mg PO BID PRN (Reason: congestion) Qty: 0 0RF Print Language: Citizen [place]
[2024-07-12 23:12] LABS: MANUAL DIFF FLAG NO
[2024-07-12 23:13] LABS: Basophils Percent Auto 0.2 % (0-2); Eosinophils Absolute Auto 0.1 X10*3/uL (0.0-0.4); Eosinophils Percent Auto 1.7 % (0-4); Hematocrit 32.1 % (37.0-47.0); Hemoglobin 11.2 g/dl (12.0-16.0); Imm Gran Abs Auto 0.02 X10*3/uL (0.00-0.03); Imm Gran Pct Auto 0.4 % (0.0-0.4); Lymphocytes Absolute Auto 1.8 X10*3/uL (1.2-4.9); Lymphocytes Percent Auto 37.1 % (20-40); Mean Corpuscular HGB Conc 34.9 g/dl (31.0-35.0); Mean Corpuscular Hemoglobin 30.2 pg (27.0-33.0); Mean Corpuscular Volume 86.5 fL (80.0-98.0); Mean Platelet Volume 9.6 fL (9.4-12.3); Monocytes Absolute Auto 0.3 X10*3/uL (0.1-1.2); Neutrophils Absolute Auto 2.6 x10*3/uL (2.0-8.3); Neutrophils Percent Auto 54.6 % (45-73); Red Blood Count 3.71 X10*6/uL (4.20-5.50); White Blood Count 4.8 X10*3/uL (4.8-10.8)
[2024-07-12 23:14] LABS: Platelet Count 86 X10*3/uL (160-400)
[2024-07-12 23:21] VITALS: BP 100/54; PULSE 76; RESP 14; O2SAT 92
[2024-07-12] MEDS: Magnesium Sulfate/H2O 2 GM/50 ML PIGGYBACK IV (23:21)
[2024-07-12 23:26] LABS: Alanine Aminotransferase 103 U/L (0-31); Albumin Level 3.9 g/dL (3.5-5.0); Alkaline Phosphatase 59 U/L (39-117); Anion Gap 13 (12-20); Aspartate Amino Transferase 588 U/L (5-31); Bilirubin Total 1.3 mg/dL (0.0-1.0); Blood Urea Nitrogen 15 mg/dL (9-16); Calcium 9.6 mg/dL (8.4-10.2); Carbon Dioxide 24 mmol/L (22-29); Chloride 102 mmol/L (96-108); Creatinine Clr Calc Pharmacy 99.7; Estimated Glomerular Filt Rate > 60; Glucose Random 101 mg/dL (60-115); Magnesium 1.8 mg/dL (1.6-2.6); Potassium 4.3 mmol/L (3.3-5.1); Sodium 135 mmol/L (135-145)
--- NOTE | 2024-07-12 23:26 | PC.NURSE ---
pt moved to ed22, placed on continuous cardiac, o2, bp and end tital co2 monitoring. pt changed over to pod attire and belongings to decon. home meds to decon with belongings. pt has 1:1 sitter. iv established via u/s by another RN and mag infusing per mar. pt arousable to name however sleeping at this time. sats 92-93% on RA.
[2024-07-12 23:28] LABS: Acetaminophen LAB < 3 mcg/mL (<30); Salicylate < 5.0 mg/dL (15-30)
[2024-07-12 23:35] LABS: Ethanol < 10 mg/dL; Troponin-I High Sensitivity < 2.7 ng/L (<3.5-17.0)
[2024-07-13] VITALS (10 sets, daily range): BP systolic 90–134; BP diastolic 50–90; PULSE 71–77; RESP 13–18; TEMP 36.5–36.6; O2SAT 92–99
--- NOTE | 2024-07-13 | ECG_ITS ---
Test Reason : REPEAT EKG OD Blood Pressure : / mmHG Vent. Rate : 069 BPM Atrial Rate : 069 BPM P-R Int : 186 ms QRS Dur : 088 ms QT Int : 470 ms P-R-T Axes : 069 010 032 degrees QTc Int : 503 ms Normal sinus rhythm Inferior infarct (cited on or before 16-MAY-2024) Prolonged QT Abnormal ECG When compared with ECG of 13-JUL-2024 00:38, No significant change was found Referred By: Sukhdev Palacios Electronically Signed By:Amadeo Gutierrez
[2024-07-13] MEDS: 0.9 % Sodium Chloride 1,000 ML 999 ML IV (00:09)
--- NOTE | 2024-07-13 00:09 | PC.NURSE ---
MD made aware of bp. pt arousable to name but quick to fall asleep. 1:1 sitter at bedside.
--- NOTE | 2024-07-13 00:45 | ECG_ITS ---
Test Reason : REPEAT EKG OD Blood Pressure : / mmHG Vent. Rate : 074 BPM Atrial Rate : 074 BPM P-R Int : 182 ms QRS Dur : 088 ms QT Int : 460 ms P-R-T Axes : 061 008 027 degrees QTc Int : 510 ms Normal sinus rhythm Inferior infarct (cited on or before 16-MAY-2024) Prolonged QT Abnormal ECG When compared with ECG of 12-JUL-2024 22:42, No significant change was found Referred By: Sukhdev Palacios Electronically Signed By:Amadeo Gutierrez
--- NOTE | 2024-07-13 00:46 | PC.NURSE ---
this RN took phone call from poison control, update given. plan for repeat labs for 199. Primary RN aware.
--- NOTE | 2024-07-13 01:50 | PC.NURSE ---
ivf completed md aware of bp. pt arousable to name.
[2024-07-13 02:18] LABS: INTERNATIONAL NORM RATIO 1.3 (0.9-1.1); Prothrombin Time 15.4 SEC (10.9-12.4)
[2024-07-13 02:49] LABS: Alanine Aminotransferase 92 U/L (0-31); Albumin Level 3.6 g/dL (3.5-5.0); Alkaline Phosphatase 56 U/L (39-117); Anion Gap 13 (12-20); Aspartate Amino Transferase 531 U/L (5-31); Blood Urea Nitrogen 13 mg/dL (9-16); Carbon Dioxide 24 mmol/L (22-29); Chloride 106 mmol/L (96-108); Creatinine Clr Calc Pharmacy 115.9; Estimated Glomerular Filt Rate > 60; Glucose Random 89 mg/dL (60-115); Magnesium 2.3 mg/dL (1.6-2.6); Potassium 4.1 mmol/L (3.3-5.1); Sodium 139 mmol/L (135-145); Total Protein 6.4 g/dL (6.5-8.0)
[2024-07-13 03:45] LABS: Acetaminophen LAB < 3 mcg/mL (<30); Salicylate < 5.0 mg/dL (15-30)
--- NOTE | 2024-07-13 04:29 | PC.NURSE ---
pt is axox4 ambulated with steady gait to bathroom and provided urine sample. pt is eating/drinking nad. cleared by md and poison control. iv removed. report given to janak pod rn. pt transferred to pod unit.
[2024-07-13 04:35] LABS: Appearance Urine Turbid; Color Urine Dark Yellow; Glucose Urine UA Negative (Negative); Leukocyte Esterase Urine Large (3+) (Negative); Nitrite Urine Negative (Negative); PH 5.5 (5.0-9.0); Specific Gravity - Urine 1.015 (1.005-1.025); UMIC TRIGGER UACC YES; Urine Blood Moderate (2+) (Negative); Urine Ketones Trace mg/dL (Negative); Urine Protein Trace mg/dL (Neg-Trace)
[2024-07-13 04:57] LABS: Amphetamine Screen Urine Not Detected (Not Detect); Barbiturates, Urine Not Detected (Not Detect); Benzodiazepines Screen Urine POSITIVE (Not Detect); Buprenorphine Scr Not Detected (Not Detect); Cannabinoid Screen Urine Not Detected (Not Detect); Cocaine Screen Urine POSITIVE (Not Detect); Fentanyl, urine POSITIVE (Not Detect); Methadone Screen, Urine Positive (Not Detect); Opiate Screen Urine POSITIVE (Not Detect); Oxycodone Screen Urine Not Detected (Not Detect); Phencyclidine Screen Urine Not Detected (Not Detect)
[2024-07-13 04:59] LABS: Bacteria Urine 2+ (None Seen); Calcium Oxalate Crystals Urine Present; Granular Casts Urine Present; UACC Culture Trigger YES
[2024-07-13] MEDS: Ibuprofen 600 MG TABLET PO ×2 (05:08→11:55)
--- NOTE | 2024-07-13 05:30 | PC.NURSE ---
due to prolonged qt patient may need methadone dose split.
[2024-07-13] MEDS: LORazepam 0.5 MG TABLET PO (05:52)
--- NOTE | 2024-07-13 07:51 | PHA.MEDREC ---
Pharmacy Consult ? Medication Reconciliation Pharmacy has reviewed the medication reconciliation. [facility] did notice discrepancies with gabapentin, RN had it as 600 mg TID but rx audit shows RN confirmed from a previous admission. PDMP shows consistent fills for gabapentin 100 mg TID. Changed to match claims.
--- NOTE | 2024-07-13 07:54 | HE.PHANOTE ---
RE METHADONE RN sent patients methadone confirmation form up to pharmacy, patient last dosed with [facility] [phone]. RN Perla confirmed patient to be last dosed on 07/11/24 with 230 mg in the morning and 30 mg at bedtime.
[2024-07-13] MEDS: hydrOXYzine HCL 25 MG TABLET PO ×2 (08:35→14:59)
[2024-07-13] MEDS: Nicotine Polacrilex 2 MG GUM 4 MG BUCCAL ×2 (08:35→14:59)
[2024-07-13] MEDS: cloNIDine HCL 0.1 MG TABLET PO ×2 (08:35→14:59)
[2024-07-13] MEDS: diazePAM 5 MG TABLET PO (08:35)
[2024-07-13] MEDS: Loratadine 10 MG TABLET PO (08:35)
[2024-07-13] MEDS: Nicotine 21 MG PATCH.TD24 TRANSDERMA (08:36)
[2024-07-13] MEDS: methADONE HCl 20 MG/2 ML ORAL.CONC 230 MG PO (08:51)
[2024-07-13] MEDS: Tiotropium Bromide 2.5 mcg 1 PUFF/2.5 MCG MIST.INHAL 2 PUFF INHALE (09:15)
[2024-07-13] MEDS: Gabapentin 100 MG CAPSULE PO ×2 (09:15→15:25)
[2024-07-13 11:55] LABS: UPreg QC Valid YES; Urine Pregnancy NEGATIVE (NEGATIVE)
--- NOTE | 2024-07-13 12:46 | ECG_ITS ---
Test Reason : MEDICAL CLEARANCE Blood Pressure : / mmHG Vent. Rate : 064 BPM Atrial Rate : 064 BPM P-R Int : 170 ms QRS Dur : 090 ms QT Int : 356 ms P-R-T Axes : 032 024 048 degrees QTc Int : 367 ms Normal sinus rhythm Nonspecific T wave abnormality Abnormal ECG When compared with ECG of 13-JUL-2024 02:51, QT has shortened Referred By: Leroy Patricia Electronically Signed By:Amadeo Gutierrez
--- NOTE | 2024-07-13 13:39 | MHC.CARE ---
Pt was accepted to [facility] by [facility] for today 07/13/24. The accepting provider is Dr. Bundy and the ETA is 6pm. The address is [address] [place] [id number]. Pod RN and the CARE team have been notified of placement.
[2024-07-13] MEDS: methADONE HCl 20 MG/2 ML ORAL.CONC 30 MG PO (14:53)
[2024-07-13] MEDS: Topiramate 100 MG TABLET PO (15:25)
--- NOTE | 2024-07-13 17:21 | PC.NURSE ---
Patient screaming and refusing to go to [facility] in [place] notified. Security called.
--- NOTE | 2024-07-13 17:30 | PC.NURSE ---
Tried to call facility to give them a report it every number I tried wouldn't go through. and [phone].
== END 2024-07-13 17:33 ==
PROVIDERS: Emergency Medicine Emergency Medical Services; Emergency Provider Internal Medicine
DX: T42.6X2A Poisoning by other antiepileptic and sedative-hypnotic drugs, intentional self-harm, initial encounter (principal); T46.5X2A Poisoning by other antihypertensive drugs, intentional self-harm, initial encounter; T43.592A Poisoning by other antipsychotics and neuroleptics, intentional self-harm, initial encounter; T42.4X2A Poisoning by benzodiazepines, intentional self-harm, initial encounter; T45.1X2A Poisoning by antineoplastic and immunosuppressive drugs, intentional self-harm, initial encounter; T50.992A Poisoning by other drugs, medicaments and biological substances, intentional self-harm, initial encounter; R41.82 Altered mental status, unspecified; R40.0 Somnolence; Y92.9 Unspecified place or not applicable; F19.10 Other psychoactive substance abuse, uncomplicated; F14.10 Cocaine abuse, uncomplicated; F11.20 Opioid dependence, uncomplicated; R45.851 Suicidal ideations; F31.9 Bipolar disorder, unspecified; B19.20 Unspecified viral hepatitis C without hepatic coma; F17.210 Nicotine dependence, cigarettes, uncomplicated; Z79.82 Long term (current) use of aspirin; Z79.899 Other long term (current) drug therapy
CPT/HCPCS: 36415; 80053; 80143; 80179; 80307; 81001; 81025; 83735; 84484; 85025; 85610; 87086; 93005; 96365; 96366; 99285; J3475; S9485

== ENCOUNTER → 2024-07-12 22:42 | Outpatient (BNV) | payer OTHER, SELFPAY | PROVIDERS: Emergency Provider Internal Medicine; Visit Provider Internal Medicine Cardiovascular Disease | DX: R94.31 Abnormal electrocardiogram [ECG] [EKG] (principal) | CPT/HCPCS: 93010 ==

== ENCOUNTER → 2024-07-13 00:45 | Outpatient (BNV) | payer OTHER, SELFPAY | PROVIDERS: Emergency Provider Internal Medicine; Visit Provider Internal Medicine Cardiovascular Disease | DX: R94.31 Abnormal electrocardiogram [ECG] [EKG] (principal) | CPT/HCPCS: 93010 ==